=== PATIENT | female | born 1955 | race Caucasian/White ===

== ENCOUNTER 2016-07-22 13:18 | Emergency (ER) | payer MEDICARE, MEDICAID ==
[~2016-07-22] VITALS: Ht 162.6 cm; Wt 68.0 kg
[~2016-07-22 13:18] MED LIST: ACET325T PO; ACTO15TA11 PO; ASPI1TAB69 PO; CALCTAB33 PO; GABA400C5 PO; IMIP75CA PO; LEVO.125 PO; LISI-519 PO; MAGN500T4 PO; OCUVTAB PO; OMEG100010; OMEP20TA PO; TRAM50TA PO
[2016-07-22 13:20] VITALS: BP 114/72; PULSE 80; RESP 20; TEMP 97.7; O2SAT 97
--- NOTE | 2016-07-22 13:40 | PD ---
Physical Exam Date Seen by Provider: Jul 22, 2016 Time Seen by Provider: 13:38 Narrative 61 yo female here for leg edema. Has had this for 2-3 weeks. No injuries. Went to PCP on monday. pain is 10/10 on the legs. No history of CHF. worst on the right than left. Vitals sign stable. Patient awaiting bed placement. Data Data Last Documented VS Vital Signs Date Time Temp Pulse Resp B/P Pulse Ox O2 Delivery O2 Flow Rate FiO2 07/22/16 13:20 97.7 80 20 114/72 97 Room Air [facility] Medical Record Reviewed: Yes Supervised Visit with DAVID: No Jimmie Beatty Jul 22, 2016 13:40
--- NOTE | 2016-07-22 14:40 | PD ---
HPI Chief Complaint: Edema Time Seen by Provider: 14:25 Travel History International Travel<30 days: No Contact w/Intl Traveler<30days: No Traveled to known affect area: No History of Present Illness HPI Patient 61-year-old female with a history of a mild learning disability presents emergency Department with her caregiver for evaluation of leg swelling. Patient states this been going on for 2-3 weeks. She stated that she went to her primary care physician a few days ago who usually checks her feet for history of diabetes but didn't do it that day. When she got home she realized that her doctor was unaware of her edema so decided to come in here to be seen. Days later. Denies any shortness of breath denies any history of heart disease lung disease liver disease or kidney disease. She states that her lower extremities are minimally cramping in nature. She is concerned because she was told to check her feet for any abnormalities with a history of diabetes. Denies any fevers abdominal pain nausea vomiting diarrhea. PFSH Past Medical History Hx Anticoagulant Therapy: Yes (ASA) Anxiety: Yes Depression: Yes Heart Rhythm Problems: No Cancer: No Cardiac Catheterization: No Cardiovascular Problems: Yes (HTN) High Cholesterol: No Chest Pain: Yes Congestive Heart Failure: No Developmental Delay: Yes Diabetes: Yes Diminished Hearing: No GERD: Yes Genitourinary: Yes (BLADDER INCONTINENCE, at times) Headaches: Yes Hypertension: Yes Musculoskeletal: No Neurologic: No Psychiatric: Yes Reproductive: No Respiratory: No Myocardial Infarction: No Renal Failure: Yes (renal insuffiency) Thyroid Disease: Yes Menopausal: Yes : 0 Para: 0 Miscarriage: 0 : 0 Dilation and Curettage (D&C): Yes Past Surgical History Abdominal Surgery: No Cardiac Surgery: No Coronary Artery Bypass Graft: No Ear Surgery: No Endocrine Surgery: No Eye Surgery: No Genitourinary Surgery: No Gynecologic Surgery: Yes (D & C) Hysterectomy: Yes Oral Surgery: No Thoracic Surgery: No Other Surgery: Yes (THYROID SX) Social History Alcohol Use: No Tobacco Use: No Substance Use: No Allergies-Medications (Allergen,Severity, Reaction): Coded Allergies: No Known Allergies (Verified , 07/12/16) Reported Meds & Prescriptions Reported Meds & Active Scripts Active Tramadol (Tramadol HCl) 50 Mg Tab 50 Mg PO Q8H PRN Synthroid (Levothyroxine Sodium) 125 Mcg Tab 125 Mcg PO DAILY Gabapentin 400 Mg Cap 400 Cap PO TID Reported Actos (Pioglitazone HCl) 15 Mg Tab 15 Mg PO DAILY Omeprazole 20 Mg Tab 20 Mg PO DAILY [place] 3 1000 mg ([place]-3 Fatty Acids) 1 Cap Cap Ocuvite (Multiple Vitamins W/ Minerals) 1 Tab 1 Tab PO DAILY Magnesium 500 Mg Tab 500 Mg PO DAILY Lisinopril 5 Mg Tab 5 Mg PO DAILY Imipramine Pamoate 75 Mg Cap 75 Mg PO DAILY Calcium 600+D Plus Minerals (Calcium Carbonate-Vitamin D W/Minerals) 600-400 Mg- Unit Tab 1 Tab PO DAILY Aspirin 81 Mg Tabdr 81 Mg PO DAILY Acetaminophen 325 Mg Tab 650 Mg PO Q6HR PRN Review of Systems Except as stated in HPI: all other systems reviewed are Neg Physical Exam Narrative GENERAL: Well-developed well-nourished no apparent distress. SKIN: Focused skin assessment warm/dry. HEAD: Atraumatic. Normocephalic. EYES: Pupils equal and round. No scleral icterus. No injection or drainage. ENT: No nasal bleeding or discharge. Mucous membranes pink and moist. NECK: Trachea midline. No JVD. CARDIOVASCULAR: Regular rate and rhythm. No murmur appreciated. RESPIRATORY: No accessory muscle use. Clear to auscultation. Breath sounds equal bilaterally. GASTROINTESTINAL: Abdomen soft, non-tender, nondistended. Hepatic and splenic margins not palpable. MUSCULOSKELETAL: No obvious deformities. No clubbing. No cyanosis. 2+ pitting edema to bilateral lower extremity from mid tibia distally. Pulses motor and sensory intact distally in all 4 extremity's. Extremity are atraumatic.. NEUROLOGICAL: Awake and alert. No obvious cranial nerve deficits. Motor grossly within normal limits. Normal speech. PSYCHIATRIC: Appropriate mood and affect; insight and judgment normal. Data Data Last Documented VS Vital Signs Date Time Temp Pulse Resp B/P Pulse Ox O2 Delivery O2 Flow Rate FiO2 07/22/16 17:43 07/22/16 17:27 73 18 100 Room Air 07/22/16 13:20 97.7 Orders Electrocardiogram (07/22/16 14:36) Complete Blood Count With Diff (07/22/16 14:36) Comprehensive Metabolic Panel (07/22/16 14:36) Troponin I (07/22/16 14:36) Ecg Monitoring (07/22/16 14:36) Bilateral Bp Monitoring (07/22/16 14:36) Iv Access Insert/Monitor (07/22/16 14:36) Oximetry (07/22/16 14:36) Oxygen Administration (07/22/16 14:36) Sodium Chloride 0.9% Flush (Ns Flush) (07/22/16 14:45) Chest, Pa & Lat (07/22/16 14:36) Labs Laboratory Tests Test 07/22/16 14:50 White Blood Count 7.2 TH/MM3 Red Blood Count 4.08 MIL/MM3 Hemoglobin 11.7 GM/DL Hematocrit 36.5 % Mean Corpuscular Volume 89.6 FL Mean Corpuscular Hemoglobin 28.6 PG Mean Corpuscular Hemoglobin 31.9 % Concent Red Cell Distribution Width 14.0 % Platelet Count 239 TH/MM3 Mean Platelet Volume 6.5 FL Neutrophils (%) (Auto) 54.1 % Lymphocytes (%) (Auto) 28.9 % Monocytes (%) (Auto) 9.1 % Eosinophils (%) (Auto) 6.8 % Basophils (%) (Auto) 1.1 % Neutrophils # (Auto) 3.9 TH/MM3 Lymphocytes # (Auto) 2.1 TH/MM3 Monocytes # (Auto) 0.7 TH/MM3 Eosinophils # (Auto) 0.5 TH/MM3 Basophils # (Auto) 0.1 TH/MM3 CBC Comment DIFF FINAL Differential Comment Sodium Level 143 MEQ/L Potassium Level 4.7 MEQ/L Chloride Level 109 MEQ/L Carbon Dioxide Level 27.9 MEQ/L Anion Gap 6 MEQ/L Blood Urea Nitrogen 30 MG/DL Creatinine 1.02 MG/DL Estimat Glomerular Filtration 55 ML/MIN Rate Random Glucose 75 MG/DL Calcium Level 9.3 MG/DL Total Bilirubin 0.3 MG/DL Aspartate Amino Transf 21 U/L (AST/SGOT) Alanine Aminotransferase 27 U/L (ALT/SGPT) Alkaline Phosphatase 76 U/L Troponin I LESS THAN 0.02 NG/ML Total Protein 5.9 GM/DL Albumin 3.4 GM/DL [facility] Medical Decision Making Medical Screen Exam Complete: Yes Emergency Medical Condition: Yes Interpretation(s) EKG shows normal sinus rhythm normal axis and normal R-wave progression. No concerning ST-T changes. Intervals within normal limits. This normal EKG. Differential Diagnosis CHF unlikely, liver disease unlikely, kidney disease unlikely, peripheral venous stasis, diabetic foot unlikely Narrative Course Patient was roomed in the emergency department, initial laboratory workup including CBC CMP EKG and chest x-ray all within normal limits. The patient appears well. She is not short of breath. She is stable for discharge at this time. Recommended that she follow up with her primary care physician. Discussed DAYANNA hose as well as elevating her feet at night. Diagnosis Primary Impression: Pedal edema Additional Instructions: Go to [facility] in by yourself DAYANNA hose, keep your feet elevated at night. Follow -up with your primary care physician by phone tomorrow. Med/Other Pt SpecificInfo: Prescription(s) given Disposition: DISCHARGE HOME Condition: Stable Sudhir Buchanan MD Jul 22, 2016 14:39
[2016-07-22] MEDS ORDERED: SODIUM CHLORIDE 0.9% FLUSH 10 ML FLUSH IVF PRN (14:45)
[2016-07-22 14:54] VITALS: BP_SYST 116; BP_DIAS 68; BP_DIAS 69; PULSE 75; RESP 16; O2SAT 100
[2016-07-22 15:10] LABS: AUTOMATED NEUTROPHIL # 3.9 TH/MM3 (1.8-7.7); BASOPHIL # 0.1 TH/MM3 (0-0.2); BASOPHIL % 1.1 % (0.0-2.0); EOSINOPHIL # 0.5 TH/MM3 (0-0.4); EOSINOPHIL % 6.8 % (0.0-4.0); HEMATOCRIT 36.5 % (35.0-46.0); HEMO FLAGS DIFF FINAL; LYMPH % 28.9 % (9.0-44.0); LYMPHOCYTE # 2.1 TH/MM3 (1.0-4.8); MEAN CELL VOLUME 89.6 FL (80.0-100.0); MEAN CORPUSCULAR HEMOGLOBIN 28.6 PG (27.0-34.0); MEAN CORPUSCULAR HGB CONC 31.9 % (32.0-36.0); MONO % 9.1 % (0.0-8.0); NEUT % 54.1 % (16.0-70.0); PLATELET COUNT 239 TH/MM3 (150-450); RED BLOOD COUNT 4.08 MIL/MM3 (4.00-5.30); WHITE BLOOD COUNT 7.2 TH/MM3 (4.0-11.0)
[2016-07-22 15:36] LABS: ALT (GPT) 27 U/L (10-53); ANION GAP 6 MEQ/L (5-15); AST (GOT) 21 U/L (15-37); BICARBONATE 27.9 MEQ/L (21.0-32.0); BLOOD UREA NITROGEN 30 MG/DL (7-18); CHLORIDE 109 MEQ/L (98-107); GLOMERULAR FILTRATION RATE 55 ML/MIN (>89); POTASSIUM 4.7 MEQ/L (3.5-5.1); SODIUM (NA) 143 MEQ/L (136-145)
[2016-07-22 15:40] LABS: ALKALINE PHOSPHATASE 76 U/L (45-117); TOTAL BILIRUBIN ADULT 0.3 MG/DL (0.2-1.0)
--- NOTE | 2016-07-22 17:09 | RADRPT ---
EXAM DATE/TIME: 07/22/2016 17:06 [facility] COMPARISON: No previous studies available for comparison. INDICATIONS : Chest pain and lower extremity swelling. MEDICAL HISTORY : None. SURGICAL HISTORY : None. ENCOUNTER: Initial ACUITY: 1 day PAIN SCORE: 4/10 LOCATION: Bilateral lower chest FINDINGS: The cardiac silhouette is normal in transverse diameter. The lungs are free of acute parenchymal opac ity. No effusions are identified. The aortic knob is prominent with tortuosity of the descending thor acic aorta. There are surgical clips in the right upper quadrant compatible with prior cholecystectom y. CONCLUSION: 1. No acute cardiopulmonary disease. Jose Vaughan MD on July 22, 2016 at 17:07 Board Certified Radiologist. This report was verified electronically.
[2016-07-22 17:27] VITALS: BP 137/79; PULSE 73; RESP 18; O2SAT 100
--- NOTE | 2016-07-23 19:25 | EKG ---
Date Performed: 07/22/2016 Time Performed: 15:06:54 PTAGE: 61 years EKG: Sinus rhythm NORMAL ECG PREVIOUS TRACING : 09/02/2015 19.23 Compared to prior tracing no significant change DOCTOR: Kisha Blackmon Interpretating Date/Time 07/23/2016 19:24:06
[2016-08-02] MEDS ORDERED: AMIT10TA6 PO (15:35)
[2016-09-05] MEDS ORDERED: ACTO15TA11 PO (13:50)
[2016-09-23] MEDS ORDERED: LEVO.125 PO (13:48)
== END 2016-07-22 18:16 | disposition home or self-care (01) ==
LOC: NEPD 13:18
DX: R60.0 Localized edema (principal); R07.9 Chest pain, unspecified; I10 Essential (primary) hypertension; E11.9 Type 2 diabetes mellitus without complications; Z79.84 Long term (current) use of oral hypoglycemic drugs; Z79.899 Other long term (current) drug therapy
CPT/HCPCS: 71020; 80053; 84484; 85025; 93005

== ENCOUNTER 2017-01-03 17:09 | Emergency (ER) | payer MEDICARE, MEDICAID ==
[~2017-01-03] VITALS: Ht 162.6 cm; Wt 70.0 kg
[~2017-01-03 17:09] MED LIST changes: -GABA400C5 PO; -OMEP20TA PO; +ZANT150T2 PO
[2017-01-03 17:47] VITALS: BP 138/80; PULSE 89; RESP 14; TEMP 98.6; O2SAT 100
--- NOTE | 2017-01-03 17:57 | PD ---
Physical Exam Date Seen by Provider: Jan 03, 2017 Time Seen by Provider: 17:55 Narrative 61 yo female here for left middle finger injury. Per patient she "passed out" and fell and injured her finger. Patient fell at the gas station. Occurred less than an hour ago. Possible open fracture of left middle finger per [facility]. Also per [facility] caregiver stated that patient "makes ups stories" and has mental illness. Per report from EVAC and gas station staff patient tripped and fell. Vitals are stable in triage. Awaiting bed placement. Data Data Last Documented VS Vital Signs Date Time Temp Pulse Resp B/P (MAP) Pulse Ox O2 Delivery O2 Flow Rate FiO2 01/03/17 17:47 98.6 89 14 138/80 (99) 100 Room Air Orders Orders Finger ([id number]) (01/03/17 ) [facility] Medical Record Reviewed: Yes Supervised Visit with DAVID: Jimmie Arechiga Jan 03, 2017 17:57
--- NOTE | 2017-01-03 18:42 | RADRPT ---
EXAM DATE/TIME: 01/03/2017 18:33 [facility] COMPARISON: No previous studies available for comparison. INDICATIONS : Left 3rd finger pain due to fall. MEDICAL HISTORY : Hypertension. Diabetes mellitus type 2. Renail failure. SURGICAL HISTORY : Cholecystectomy. ENCOUNTER: Initial ACUITY: 1 day PAIN SCORE: 7/10 LOCATION: Left 3rd finger. FINDINGS: There is a posterior joint dislocation at the PIP joint of the third finger. The bony structures appe ar to be grossly intact. There is soft tissue swelling of the third finger. The rest of bony structur es are grossly intact. CONCLUSION: Posterior joint dislocation at the third PIP joint Julio Zhu MD on January 03, 2017 at 18:40 Board Certified Radiologist. This report was verified electronically.
[2017-01-03] MEDS ORDERED: LIDOCAINE HCL 1% 50 ML VIAL ONE (19:52)
[2017-01-03] MEDS ORDERED: LIDOCAINE HCL 1% 50 ML VIAL INFIL ONE (20:00)
--- NOTE | 2017-01-03 20:26 | RADRPT ---
EXAM DATE/TIME: 01/03/2017 20:03 [facility] COMPARISON: FINGER LEFT 3RD DIGIT ([id number]), January 03, 2017, 18:33. INDICATIONS : Post reduction left hand, third digit. MEDICAL HISTORY : Hypertension. Diabetes mellitus type 2. Renail failure SURGICAL HISTORY : Cholecystectomy. ENCOUNTER: Subsequent ACUITY: 1 day PAIN SCORE: 4/10 LOCATION: Left upper extremity FINDINGS: The previously noted posterior joint dislocation of the third PIP joint has been reduced. No definite bony fracture. There continues to be soft tissue swelling. CONCLUSION: There is good alignment on this post reduction study Julio Zhu MD on January 03, 2017 at 20:24 Board Certified Radiologist. This report was verified electronically.
[2017-01-03 20:48] VITALS: BP 170/75; PULSE 90; RESP 18; O2SAT 98
--- NOTE | 2017-01-03 21:01 | PD ---
HPI Chief Complaint: Syncope/Near-Syncope Time Seen by Provider: 19:43 Travel History International Travel<30 days: No Contact w/Intl Traveler<30days: No History of Present Illness HPI This 61-year-old woman who fell at a gas station. She states that she had syncope and collapse. She states she remembers falling however and was able to brace herself with her hand. Denies hitting her head or face. She complains of some headache and belly pain. States she is very prone to headaches and takes opiates regularly for headaches. She is a little bit difficult to get a complete history from. Nonetheless her only complaint at this time a headaches in her left third finger which is deformed. History Past Medical History Narrative Medical Diabetes diabetes Menopausal: Yes : 0 Para: 0 Dilation and Curettage (D&C): Yes Social History Alcohol Use: No Tobacco Use: No Allergies-Medications (Allergen,Severity, Reaction): Coded Allergies: No Known Allergies (Verified , 01/03/17) Reported Meds & Prescriptions Reported Meds & Active Scripts Active Lisinopril 5 Mg Tab 5 Mg PO DAILY Synthroid (Levothyroxine Sodium) 125 Mcg Tab 125 Mcg PO DAILY Tramadol (Tramadol HCl) 50 Mg Tab 50 Mg PO Q8H PRN Zantac (Ranitidine HCl) 150 Mg Tab 150 Mg PO BID Actos (Pioglitazone HCl) 15 Mg Tab 15 Mg PO DAILY Reported [place] 3 1000 mg ([place]-3 Fatty Acids) 1 Cap Cap Ocuvite (Multiple Vitamins W/ Minerals) 1 Tab 1 Tab PO DAILY Imipramine Pamoate 75 Mg Cap 75 Mg PO DAILY Calcium 600+D Plus Minerals (Calcium Carbonate-Vitamin D W/Minerals) 600-400 Mg- Unit Tab 1 Tab PO DAILY Review of Systems ROS Limitations: Poor Historian Except as stated in HPI: all other systems reviewed are Neg Physical Exam Narrative GENERAL: Well-appearing 61-year-old woman, little bit bizarre, no acute distress. SKIN: Focused skin assessment warm/dry. HEAD: Normocephalic. Is no evidence of trauma. EYES: Pupils equal and round. No scleral icterus. No injection or drainage. ENT: No nasal bleeding or discharge. Mucous membranes pink and moist. NECK: No midline tenderness. No step-offs or deformities. Full painless range of motion. CARDIOVASCULAR: Regular rate and rhythm. No murmur appreciated. RESPIRATORY: No accessory muscle use. Clear to auscultation. Breath sounds equal bilaterally. GASTROINTESTINAL: Abdomen soft, non-tender, nondistended. Hepatic and splenic margins not palpable. MUSCULOSKELETAL: Obvious deformity and swelling of the left third finger about the PIP joint with apparent dorsal dislocation of the PIP. NEUROLOGICAL: Awake and alert. No obvious cranial nerve deficits. Motor grossly within normal limits. Normal speech. PSYCHIATRIC: Appropriate mood and affect; insight and judgment normal. Data Data Last Documented VS Vital Signs Date Time Temp Pulse Resp B/P (MAP) Pulse Ox O2 Delivery O2 Flow Rate FiO2 01/03/17 20:48 90 18 170/75 (106) 98 Room Air 01/03/17 17:47 98.6 Orders Orders Finger ([id number]) (01/03/17 ) Lidocaine 1% Inj (50 Ml) (Xylocaine 1% I (01/03/17 19:52) Electrocardiogram (01/03/17 ) Lidocaine 1% Inj (50 Ml) (Xylocaine 1% I (01/03/17 20:00) Finger ([id number]) (01/03/17 ) MDM Medical Decision Making Medical Screen Exam Complete: Yes Emergency Medical Condition: Yes Interpretation(s) Last 24 hours Impressions Finger X-Ray 01/03/17 0000 Signed Impressions: Service Date/Time: Tuesday, January 03, 2017 18:33 - CONCLUSION: Posterior joint dislocation at the third PIP joint Julio Zhu MD Differential Diagnosis Finger dislocation, fracture, other Narrative Course Medical decision-making Is a somewhat bizarre 61-year-old woman presents to the emergency department complaining of fall/syncope/near-syncope epigastric station. She looks well. Only evidence of trauma sees a finger injury. Don't see any evidence of head neck back injury. She looks well. I did obtain an EKG with which is unremarkable. Finger was reduced following a digital block. It was pointed with 20 of flexion at the PIP joint. We'll recommend follow-up with her primary physician. Procedures Procedure Narrative Digital block: The base of the third finger and left hand was cleansed with chlorhexidine. 1% plain lidocaine was injected at the metacarpal head. Good anesthesia resulted. Patient tolerated well. Reduction: Following digital block, the PIP joint was reduced with axial traction and direct volar pressure on the distal fragment. Patient tolerated well. Repeat film showed several reduction. There still limited range of motion of both the PIP and DIP joint. There is swelling on the proximal phalanx especially on the volar side with some ecchymosis. Splint was placed with the PIP and 20 of flexion and the DIP free. Diagnosis Primary Impression: Dislocation of PIP joint of finger Qualified Codes: S63.289A - Dislocation of proximal interphalangeal joint of unspecified finger, initial encounter Patient Instructions: General Instructions Additional Instructions: Keep finger splinted for 5-7 days. Follow-up with her primary physician for repeat evaluation. Return to the emergency department for any worsening chest pain, trouble breathing, or any other new or worsening symptoms. Med/Other Pt SpecificInfo: No Change to Meds Disposition: 01 DISCHARGE HOME Condition: Stable Darrel Saucedo MD Jan 03, 2017 21:01
--- NOTE | 2017-01-04 23:44 | EKG ---
Date Performed: 01/03/2017 Time Performed: 19:59:19 PTAGE: 61 years EKG: Sinus rhythm NORMAL ECG PREVIOUS TRACING : 07/22/2016 15.06 Compared to prior tracing no significant change DOCTOR: Tom Shaver Interpretating Date/Time 01/04/2017 23:43:09
[2017-01-10] MEDS ORDERED: LEVO150T7 PO (11:47)
[2017-01-13] MEDS ORDERED: TRAM50TA PO (11:23)
== END 2017-01-03 21:20 | disposition home or self-care (01) ==
LOC: NEPD 17:09
DX: S63.283A Dislocation of proximal interphalangeal joint of left middle finger, initial encounter (principal); R51 Headache; R10.9 Unspecified abdominal pain; R55 Syncope and collapse; E11.9 Type 2 diabetes mellitus without complications; W18.39XA Other fall on same level, initial encounter; Y92.524 Gas station as the place of occurrence of the external cause
CPT/HCPCS: 26725; 26770; 73140; 93005

== ENCOUNTER 2017-01-11 01:51 | Observation (INO) | payer MEDICARE, OTHER ==
[2017-01-11] VITALS (7 sets, daily range): BP systolic 118–126; BP diastolic 60–77; PULSE 74–98; RESP 16–24; TEMP 97.6–98.5; O2SAT 96–98
[~2017-01-11] VITALS: Ht 162.6 cm; Wt 60.0 kg
[~2017-01-11 01:51] MED LIST changes: -ACET325T PO; -ACTO15TA11 PO; +ACTO15TA22 PO; -ASPI1TAB69 PO; -LEVO.125 PO; +LEVO150T7 PO; -MAGN500T4 PO
[2017-01-11] MEDS ORDERED: SODIUM CHLORIDE 0.9% FLUSH 10 ML FLUSH IVF PRN (02:15)
[2017-01-11 02:32] LABS: AUTOMATED NEUTROPHIL # 4.4 TH/MM3 (1.8-7.7); BASOPHIL # 0.1 TH/MM3 (0-0.2); BASOPHIL % 0.8 % (0.0-2.0); EOSINOPHIL # 0.3 TH/MM3 (0-0.4); HEMATOCRIT 36.7 % (35.0-46.0); HEMO FLAGS DIFF FINAL; LYMPH % 32.4 % (9.0-44.0); LYMPHOCYTE # 2.6 TH/MM3 (1.0-4.8); MEAN CELL VOLUME 91.3 FL (80.0-100.0); MEAN CORPUSCULAR HEMOGLOBIN 29.4 PG (27.0-34.0); MEAN CORPUSCULAR HGB CONC 32.2 % (32.0-36.0); MONO % 8.5 % (0.0-8.0); NEUT % 54.3 % (16.0-70.0); PLATELET COUNT 220 TH/MM3 (150-450); RED BLOOD COUNT 4.02 MIL/MM3 (4.00-5.30); RED CELL DISTRIBUTION WIDTH 13.4 % (11.6-17.2); WHITE BLOOD COUNT 8.1 TH/MM3 (4.0-11.0)
[2017-01-11 02:46] LABS: APTT (PATIENT) 25.9 SEC (24.3-30.1); INTERNATIONAL NORMALIZED RATIO 0.9 RATIO; PROTHROMBIN TIME - PATIENT 10.3 SEC (9.8-11.6)
[2017-01-11 02:47] LABS: ALT (GPT) 20 U/L (10-53); ANION GAP 4 MEQ/L (5-15); AST (GOT) 13 U/L (15-37); BICARBONATE 27.7 MEQ/L (21.0-32.0); BLOOD UREA NITROGEN 24 MG/DL (7-18); CHLORIDE 109 MEQ/L (98-107); GLOMERULAR FILTRATION RATE 44 ML/MIN (>89); POTASSIUM 4.4 MEQ/L (3.5-5.1); SODIUM (NA) 141 MEQ/L (136-145)
[2017-01-11 02:51] LABS: ALKALINE PHOSPHATASE 69 U/L (45-117); TOTAL BILIRUBIN ADULT 0.3 MG/DL (0.2-1.0)
[2017-01-11] MEDS ORDERED: ACETAMINOPHEN 325 MG TAB PO ONE (03:15)
[2017-01-11 03:21] LABS: CREATINE KINASE 58 U/L (26-192)
--- NOTE | 2017-01-11 03:36 | RADRPT ---
EXAM DATE/TIME: 01/11/2017 02:17 [facility] COMPARISON: CHEST SINGLE AP, June 20, 2014, 10:41. INDICATIONS : Chest pain. MEDICAL HISTORY : Hypertension. Diabetes mellitus type 2. Renail failure SURGICAL HISTORY : Cholecystectomy. ENCOUNTER: Initial ACUITY: 1 week PAIN SCORE: 4/10 LOCATION: Bilateral chest FINDINGS: A single view of the chest demonstrates the lungs to be symmetrically aerated without evidence of mas s, infiltrate or effusion. The cardiomediastinal contours are unremarkable. Osseous structures are intact. CONCLUSION: 1. No acute cardiopulmonary disease. Jose Vuaghan MD on January 11, 2017 at 3:35 Board Certified Radiologist. This report was verified electronically.
--- NOTE | 2017-01-11 03:42 | PD ---
HPI Chief Complaint: Chest Pain Time Seen by Provider: 02:08 Travel History International Travel<30 days: No Contact w/Intl Traveler<30days: No Traveled to known affect area: No History of Present Illness HPI substernal, radiating to shoulder/arms, 10/03, no alleviating, seems to come on worse during stressful times. this time around she was having an argument. onset was about 3-4 hours ago pcp: none pmhx : dm, htn, lipid, hypothyroid PFSH Past Medical History Hx Anticoagulant Therapy: Yes (ASA) Anxiety: Yes Depression: Yes Heart Rhythm Problems: No Cancer: No Cardiac Catheterization: No Cardiovascular Problems: Yes (HTN) High Cholesterol: No Chest Pain: Yes Congestive Heart Failure: No Developmental Delay: Yes Diabetes: Yes Patient Takes Glucophage: No (unsure on medications) Diminished Hearing: No GERD: Yes Genitourinary: Yes (BLADDER INCONTINENCE, at times) Headaches: Yes Hypertension: Yes Musculoskeletal: No Neurologic: No Psychiatric: Yes Reproductive: No Respiratory: No Myocardial Infarction: No Renal Failure: Yes (renal insuffiency) Thyroid Disease: Yes Tetanus Vaccination: Unknown Influenza Vaccination: Yes ?: Not LMP: menapause Menopausal: Yes : 0 Para: 0 Miscarriage: 0 : 0 Dilation and Curettage (D&C): Yes Past Surgical History Abdominal Surgery: No Cardiac Surgery: No Coronary Artery Bypass Graft: No Ear Surgery: No Endocrine Surgery: No Eye Surgery: No Genitourinary Surgery: No Gynecologic Surgery: Yes (D & C) Hysterectomy: Yes Oral Surgery: No Thoracic Surgery: No Other Surgery: Yes (THYROID SX) Social History Alcohol Use: No Tobacco Use: No Substance Use: No Allergies-Medications (Allergen,Severity, Reaction): Coded Allergies: No Known Allergies (Verified , 01/10/17) Reported Meds & Prescriptions Reported Meds & Active Scripts Active Levothyroxine (Levothyroxine Sodium) 150 Mcg Tab 150 Mcg PO DAILY Daily on an empty stomach Lisinopril 5 Mg Tab 5 Mg PO DAILY Zantac (Ranitidine HCl) 150 Mg Tab 150 Mg PO BID Actos (Pioglitazone HCl) 15 Mg Tab 15 Mg PO DAILY Reported [place] 3 1000 mg ([place]-3 Fatty Acids) 1 Cap Cap Ocuvite (Multiple Vitamins W/ Minerals) 1 Tab 1 Tab PO DAILY Imipramine Pamoate 75 Mg Cap 75 Mg PO DAILY Calcium 600+D Plus Minerals (Calcium Carbonate-Vitamin D W/Minerals) 600-400 Mg- Unit Tab 1 Tab PO DAILY Review of Systems Except as stated in HPI: all other systems reviewed are Neg General / Constitutional: No: Fever Eyes: No: Visual changes HENT: No: Headaches Cardiovascular: Positive: Chest Pain or Discomfort Respiratory: No: Shortness of Breath Gastrointestinal: No: Abdominal Pain Genitourinary: No: Dysuria Musculoskeletal: No: Pain Skin: No Rash Neurologic: No: Weakness Psychiatric: No: Depression Endocrine: No: Polydipsia Hematologic/Lymphatic: No: Easy Bruising Physical Exam Narrative GENERAL: SKIN: Warm and dry. HEAD: Atraumatic. Normocephalic. EYES: Pupils equal and round. No scleral icterus. No injection or drainage. ENT: No nasal bleeding or discharge. Mucous membranes pink and moist. NECK: Trachea midline. No JVD. CARDIOVASCULAR: Regular rate and rhythm. RESPIRATORY: No accessory muscle use. Clear to auscultation. Breath sounds equal bilaterally. GASTROINTESTINAL: Abdomen soft, non-tender, nondistended. MUSCULOSKELETAL: Extremities without clubbing, cyanosis, or edema. No obvious deformities. NEUROLOGICAL: Awake and alert. No obvious cranial nerve deficits. Motor grossly within normal limits. Five out of 5 muscle strength in the arms and legs. Normal speech. PSYCHIATRIC: Appropriate mood and affect; insight and judgment normal. Data Data Last Documented VS Orders Orders Electrocardiogram (01/11/17 02:10) B-Type Natriuretic Peptide (01/11/17 02:10) Ckmb (Isoenzyme) Profile (01/11/17 02:10) Complete Blood Count With Diff (01/11/17 02:10) Comprehensive Metabolic Panel (01/11/17 02:10) Prothrombin Time / Inr (Pt) (01/11/17 02:10) Act Partial Throm Time (Ptt) (01/11/17 02:10) Troponin I (01/11/17 02:10) Chest, Single Ap (01/11/17 02:10) Ecg Monitoring (01/11/17 02:10) Bilateral Bp Monitoring (01/11/17 02:10) Iv Access Insert/Monitor (01/11/17 02:10) Oximetry (01/11/17 02:10) Oxygen Administration (01/11/17 02:10) Sodium Chloride 0.9% Flush (Ns Flush) (01/11/17 02:15) Acetaminophen (Tylenol) (01/11/17 03:15) Admit Order (Ed Use Only) (01/11/17 03:44) Activity Bed Rest With Brp (01/11/17 03:45) Vital Signs (Adult) Q4H (01/11/17 03:45) Cardiac Rhythm .As Directed (01/11/17 03:45) Notify Dr: Other .PRN (01/11/17 03:45) Notify Dr. Parameters (01/11/17 03:45) Resp Oxygen Nasal Cannula (01/11/17 ) Diet Heart Healthy (01/11/17 Breakfast) Ckmb (Isoenzyme) Profile (01/11/17 03:45) Ckmb (Isoenzyme) Profile (01/11/17 06:45) Troponin I (01/11/17 03:45) Troponin I (01/11/17 06:45) Electrocardiogram (01/11/17 03:45) Electrocardiogram (01/11/17 06:45) ^ Obtain (01/11/17 03:45) Sodium Chloride 0.9% Flush (Ns Flush) (01/11/17 03:45) Sodium Chloride 0.9% Flush (Ns Flush) (01/11/17 09:00) Aspirin Chew (Aspirin Chew) (01/11/17 03:45) Shopper / Telemetry ROHITH.Q8H (01/11/17 03:45) Labs Laboratory Tests Test 01/11/17 02:20 White Blood Count 8.1 TH/MM3 Red Blood Count 4.02 MIL/MM3 Hemoglobin 11.8 GM/DL Hematocrit 36.7 % Mean Corpuscular Volume 91.3 FL Mean Corpuscular Hemoglobin 29.4 PG Mean Corpuscular Hemoglobin Concent 32.2 % Red Cell Distribution Width 13.4 % Platelet Count 220 TH/MM3 Mean Platelet Volume 5.9 FL Neutrophils (%) (Auto) 54.3 % Lymphocytes (%) (Auto) 32.4 % Monocytes (%) (Auto) 8.5 % Eosinophils (%) (Auto) 4.0 % Basophils (%) (Auto) 0.8 % Neutrophils # (Auto) 4.4 TH/MM3 Lymphocytes # (Auto) 2.6 TH/MM3 Monocytes # (Auto) 0.7 TH/MM3 Eosinophils # (Auto) 0.3 TH/MM3 Basophils # (Auto) 0.1 TH/MM3 CBC Comment DIFF FINAL Differential Comment Prothrombin Time 10.3 SEC Prothromb Time International Ratio 0.9 RATIO Activated Partial Thromboplast Time 25.9 SEC Blood Urea Nitrogen 24 MG/DL Creatinine 1.23 MG/DL Random Glucose 77 MG/DL Total Protein 6.2 GM/DL Albumin 3.6 GM/DL Calcium Level 9.7 MG/DL Alkaline Phosphatase 69 U/L Aspartate Amino Transf (AST/SGOT) 13 U/L Alanine Aminotransferase (ALT/SGPT) 20 U/L Total Bilirubin 0.3 MG/DL Sodium Level 141 MEQ/L Potassium Level 4.4 MEQ/L Chloride Level 109 MEQ/L Carbon Dioxide Level 27.7 MEQ/L Anion Gap 4 MEQ/L Estimat Glomerular Filtration Rate 44 ML/MIN Total Creatine Kinase 58 U/L Troponin I LESS THAN 0.02 NG/ML B-Type Natriuretic Peptide 33 PG/ML MDM Medical Decision Making Medical Screen Exam Complete: Yes Emergency Medical Condition: Yes Medical Record Reviewed: Yes Interpretation(s) nsr 86, nl intervals, no stemi pattern Differential Diagnosis stemi v nonstemi v anemia v dehydration v pancreatitis Narrative Course during evaluation no findings c/w pancreatitis, dehydraiton or anemia. no stemi on ekg, but will admit to r/o nonstemi and have further cardiac risk stratification Diagnosis Primary Impression: cp r/o mi Admitting Information Admitting Physician Requests: Lacho Zamora MD Jan 11, 2017 03:42
[2017-01-11] MEDS ORDERED: ASPIRIN 81 MG CHEW TAB PO ONE (03:45)
[2017-01-11] MEDS ORDERED: SODIUM CHLORIDE 0.9% FLUSH 10 ML FLUSH IV FLUSH PRN (03:45)
[2017-01-11 04:49] LABS: CREATINE KINASE 70 U/L (26-192)
[2017-01-11] MEDS ORDERED: SODIUM CHLORIDE 0.9% FLUSH 10 ML FLUSH IV FLUSH SCH (09:00)
[2017-01-11] MEDS ORDERED: REGADENOSON INJ 0.4 MG/5 ML SYR ONE (09:11)
[2017-01-11 09:13] LABS: CREATINE KINASE 49 U/L (26-192)
--- NOTE | 2017-01-11 10:15 | HHI.HP ---
[facility] Primary Care Physician Lamar Ortiz MD Chief Complaint Chest pain History of Present Illness This is a 61-year-old female that presents to ED with a complaint of chest discomfort that began earlier this morning. She states it woke her up. As a sharp discomfort across her chest lasting 2-3 hours. She states that it was severe. She was nauseous one time. No diaphoresis. States she's never had this before. She wonders if it's related to her stomach. States she had an endoscopy recently. I reviewed records and she had endoscopy 08/30/16 that revealed reflux esophagitis and gastritis recommending continued Protonix. Patient states she takes multiple medications but cannot recall the names. States that her roommate handles her medications. Currently denies chest discomfort and denies abdominal pains. She was in the ED about a week ago for dislocated left middle finger that was reduced. No fracture. Review of Systems General: Patient denies fevers, chills recent, and recent travel HEENT: Patient denies headache, sore throat, difficulty swallowing. Cardiovascular: Has the chest discomfort as mentioned above. Denies sensation of heart beating rapidly or irregularly. No syncope. Denies diaphoresis. Respiratory: Denies shortness of breath or inspirational chest discomfort. Denies coughing wheezing or hemoptysis. GI: She felt nauseous initially. Patient denies vomiting, diarrhea, abdominal pain, bloody stools. Musculoskeletal: Patient denies joint pain or edema. Denies calf pain or edema. Neurovascular: Patient denies numbness, tingling, weakness in extremities. Denies headache. Endocrine: Denies polyuria and polydipsia. Hematologic: Denies easy bruising. Skin: Denies rash or itching. Past Family Social History Allergies: Coded Allergies: No Known Allergies (Verified , 01/10/17) Past Medical History Hypertension, diabetes, hypothyroidism. Denies known CAD. Past Surgical History Endoscopy in August. D&C. Hysterectomy. Reported Medications Reported Meds & Active Scripts Active Levothyroxine (Levothyroxine Sodium) 150 Mcg Tab 150 Mcg PO DAILY Daily on an empty stomach Lisinopril 5 Mg Tab 5 Mg PO DAILY Tramadol (Tramadol HCl) 50 Mg Tab 50 Mg PO Q8H PRN Zantac (Ranitidine HCl) 150 Mg Tab 150 Mg PO BID Actos (Pioglitazone HCl) 15 Mg Tab 15 Mg PO DAILY Reported [place] 3 1000 mg ([place]-3 Fatty Acids) 1 Cap Cap Ocuvite (Multiple Vitamins W/ Minerals) 1 Tab 1 Tab PO DAILY Imipramine Pamoate 75 Mg Cap 75 Mg PO DAILY Calcium 600+D Plus Minerals (Calcium Carbonate-Vitamin D W/Minerals) 600-400 Mg- Unit Tab 1 Tab PO DAILY Active Ordered Medications Current Medications Medications (Trade) Dose Ordered Sig/Beatrice Route Start Time Stop Time Status Last Admin (NS Flush) 2 ml UNSCH PRN IVF 01/11/17 02:15 (NS Flush) 2 ml UNSCH PRN IV FLUSH 01/11/17 03:45 (NS Flush) 2 ml BID IV FLUSH 01/11/17 09:00 Family History States her mother has a pacemaker. Social History Lifetime nonsmoker. Denies alcohol or illicit drugs. She states she is disabled secondary to memory loss. Physical Exam Vital Signs Vital Signs Date Time Temp Pulse Resp B/P (MAP) Pulse Ox O2 Delivery O2 Flow Rate FiO2 01/11/17 09:32 21 01/11/17 07:57 97.6 76 24 122/73 (89) 96 01/11/17 07:10 79 01/11/17 05:59 21 01/11/17 05:04 98.4 80 18 123/77 (92) 98 01/11/17 03:30 74 18 118/60 (79) 97 Room Air 01/11/17 02:30 18 98 Room Air 01/11/17 01:53 98.5 98 16 126/72 (90) 98 Room Air Physical Exam GENERAL: This is a well-nourished, well-developed patient, in no apparent distress. Patient speaks in clear complete sentences. Patient is pleasant. HEENT: Head is atraumatic and normocephalic. Neck is supple without lymphadenopathy and trachea is midline. No JVD or carotid bruits. CARDIOVASCULAR: Regular rate and rhythm without murmurs, gallops, or rubs. RESPIRATORY: Clear to auscultation. Breath sounds equal bilaterally. No wheezes , rales, or rhonchi. Chest wall is tender. No use of accessory muscles. GASTROINTESTINAL: Abdomen is nontender, nondistended. Abdomen soft. No obvious pulsatile mass or bruit. No CVA tenderness. Strong femoral pulses bilaterally. Normal bowel sounds in all quadrants. MUSCULOSKELETAL: Patient is moving upper and lower extremities freely. No calf tenderness or edema, no Homans sign. Strong pulses in upper and lower extremities. NEUROLOGICAL: Patient is alert and oriented. Cranial nerves 2-12 are grossly intact. No focal deficits and speech is clear. SKIN: No rash and turgor is normal. Laboratory Laboratory Tests Test 01/11/17 02:20 01/11/17 04:15 01/11/17 07:30 White Blood Count 8.1 Red Blood Count 4.02 Hemoglobin 11.8 Hematocrit 36.7 Mean Corpuscular Volume 91.3 Mean Corpuscular Hemoglobin 29.4 Mean Corpuscular Hemoglobin Concent 32.2 Red Cell Distribution Width 13.4 Platelet Count 220 Mean Platelet Volume 5.9 Neutrophils (%) (Auto) 54.3 Lymphocytes (%) (Auto) 32.4 Monocytes (%) (Auto) 8.5 Eosinophils (%) (Auto) 4.0 Basophils (%) (Auto) 0.8 Neutrophils # (Auto) 4.4 Lymphocytes # (Auto) 2.6 Monocytes # (Auto) 0.7 Eosinophils # (Auto) 0.3 Basophils # (Auto) 0.1 CBC Comment DIFF FINAL Differential Comment Prothrombin Time 10.3 Prothromb Time International Ratio 0.9 Activated Partial Thromboplast Time 25.9 Blood Urea Nitrogen 24 Creatinine 1.23 Random Glucose 77 Total Protein 6.2 Albumin 3.6 Calcium Level 9.7 Alkaline Phosphatase 69 Aspartate Amino Transf (AST/SGOT) 13 Alanine Aminotransferase (ALT/SGPT) 20 Total Bilirubin 0.3 Sodium Level 141 Potassium Level 4.4 Chloride Level 109 Carbon Dioxide Level 27.7 Anion Gap 4 Estimat Glomerular Filtration Rate 44 Total Creatine Kinase 58 70 49 Troponin I LESS THAN 0.02 LESS THAN 0.02 LESS THAN 0.02 B-Type Natriuretic Peptide 33 Result Diagram: 01/11/1721901/11/17219 Imaging Last 48 hours Impressions Chest X-Ray 01/11/17209 Signed Impressions: Service Date/Time: Wednesday, January 11, 2017 02:17 - CONCLUSION: 1. No acute cardiopulmonary disease. Jose Vaughan MD Course EKG is sinus rhythm without significant ST segment depressions or elevations. Caprini VTE Risk Assessment Caprini VTE Risk Assessment: No/Low Risk (score <= 1) Caprini Risk Assessment Model Point Value = 1 Point Value = 2 Point Value = 3 Point Value = 5 Age 41-60 Minor surgery BMI > 25 kg/m2 Swollen legs Varicose veins or History of unexplained or recurrent spontaneous Oral contraceptives or hormone replacement Sepsis (< 1 month) Serious lung disease, including pneumonia (< 1 month) Abnormal pulmonary function Acute myocardial infarction Congestive heart failure (< 1 month) History of inflammatory bowel disease Medical patient at bed rest Age 61-74 Arthroscopic surgery Major open surgery (> 45 min) Laparoscopic surgery (> 45 min) Malignancy Confined to bed (> 72 hours) Immobilizing plaster cast Central venous access Age >= 75 History of VTE Family history of VTE Factor V Leiden Prothrombin [id number] Lupus anticoagulant Anticardiolipin antibodies Elevated serum homocysteine Heparin-induced thrombocytopenia Other congenital or acquired thrombophilia Stroke (< 1 month) Elective arthroplasty Hip, pelvis, or leg fracture Acute spinal cord injury (< 1 month) Prophylaxis Regimen Total Risk Factor Score Risk Level Prophylaxis Regimen 0-1 Low Early ambulation 2 Moderate Order ONE of the following: *Sequential Compression Device (SCD) *Heparin 5000 units SQ BID 3-4 Higher Order ONE of the following medications: *Heparin 5000 units SQ TID *Enoxaparin/Lovenox 40 mg SQ daily (WT < 150 kg, CrCl > 30 mL/min) *Enoxaparin/Lovenox 30 mg SQ daily (WT < 150 kg, CrCl > 10-29 mL/min) *Enoxaparin/Lovenox 30 mg SQ BID (WT < 150 kg, CrCl > 30 mL/min) AND/OR *Sequential Compression Device (SCD) 5 or more Highest Order ONE of the following medications: *Heparin 5000 units SQ TID (Preferred with Epidurals) *Enoxaparin/Lovenox 40 mg SQ daily (WT < 150 kg, CrCl > 30 mL/min) *Enoxaparin/Lovenox 30 mg SQ daily (WT < 150 kg, CrCl > 10-29 mL/min) *Enoxaparin/Lovenox 30 mg SQ BID (WT < 150 kg, CrCl > 30 mL/min) AND *Sequential Compression Device (SCD) Assessment and Plan Assessment and Plan * Chest pain: Patient has had serial cardiac enzymes and EKGs for ruling out purposes. She will be seen by Dr. Murphy of cardiology and the chest pain center and will undergo a Lexiscan. She'll be discharged home if her stress test is nonischemic with instructions to follow-up with her PCP. * Diabetes: Continue current medication. Have sliding scale insulin coverage. Follow diabetic diet at discharge. She is not on statin therapy. She should discuss this with her physician. * Hypertension: Continue current medication. * Hypothyroidism: Continue current medication. Patient is stable at this time. She is agreeable to this plan. Julius Singh Jan 11, 2017 10:15
--- NOTE | 2017-01-11 11:09 | TR ---
Date Performed: 01/11/2017 Time Performed: 10:09:00 DOCTOR: Campbell Murphy DRUG LIST: CLINICAL HISTORY: ANGINA REASON FOR TEST: REASON FOR ENDING: OBSERVATION: CONCLUSION: Lexiscan stress test was performed under standard four minute protocol. Radionuclid e was injected one minute prior to ending the test. No electrocardiographic abormalities were present to suggest ischemia. Nuclear imaging and interpretation are pending. COMMENTS:
--- NOTE | 2017-01-11 11:12 | EKG ---
Date Performed: 01/11/2017 Time Performed: 04:10:31 PTAGE: 61 years EKG: Sinus rhythm NORMAL ECG PREVIOUS TRACING : 01/03/2017 19.59 Since previous tracing, no significant change noted DOCTOR: Campbell Murphy Interpretating Date/Time 01/11/2017 11:12:21
--- NOTE | 2017-01-11 11:12 | EKG ---
Date Performed: 01/11/2017 Time Performed: 05:29:57 PTAGE: 61 years EKG: Sinus rhythm NORMAL ECG PREVIOUS TRACING : 01/11/2017 04.10 Since previous tracing, no significant change noted DOCTOR: Campbell Murphy Interpretating Date/Time 01/11/2017 11:11:37
--- NOTE | 2017-01-11 11:15 | EKG ---
Date Performed: 01/11/2017 Time Performed: 02:27:44 PTAGE: 61 years EKG: Sinus rhythm NORMAL ECG Since PREVIOUS TRACING , no significant change noted DOCTOR: Campbell Murphy Interpretating Date/Time 01/11/2017 11:14:03
--- NOTE | 2017-01-11 11:20 | EKG ---
Date Performed: 01/11/2017 Time Performed: 07:53:02 PTAGE: 61 years EKG: Sinus rhythm NORMAL ECG Since PREVIOUS TRACING , no significant change noted DOCTOR: Campbell Murphy Interpretating Date/Time 01/11/2017 11:19:35
--- NOTE | 2017-01-11 11:31 | RADRPT ---
EXAM DATE/TIME: 01/11/2017 09:37 [facility] COMPARISON: No previous studies available for comparison. INDICATIONS : Substernal chest pain. Angina. DOSE: 25.6 mCi Tc99m Myoview at stress. 8.6 mCi Tc99m Myoview at rest. 0.4 mg Lexiscan STRESS SYMPTOMS: Chest pressure, shortness of breath, back pain. EJECTION FRACTION: > 70% MEDICAL HISTORY : Hypertension. SURGICAL HISTORY : Hysterectomy. ENCOUNTER: Initial ACUITY: 1 day PAIN SCALE: 7/10 LOCATION: Substernal chest TECHNIQUE: The patient underwent pharmacologic stress with infusion of prescribed dose. Continuous ECG tracing was monitored during stress. Gated SPECT imaging was performed after stress and conventional SPECT i maging was performed at rest. The examination was performed on a SPECT/CT scanner, both attenuation and non-corrected datasets were reviewed. FINDINGS: DISTRIBUTION: The maximum perfused segment at stress is in the anterolateral wall. PERFUSION STUDY: The pattern of perfusion at stress shows fixed diminished perfusion to the mid and lower anteroseptal wall and low inferolateral wall. No reversibility to suggest ischemia. GATED STUDY: There is intact wall motion and thickening without hypokinetic or dyskinetic segments. CONCLUSION: 1. Fixed areas of diminished perfusion to the mid and lower anteroseptal and lower infero-lateral wal ls. 2. No scintigraphic findings of ischemia. 3. Excellent wall motion throughout with ejection fraction of 70% RISK CATEGORY: Low (<1% Annual Mortality Rate) Jerome Brady MD on January 11, 2017 at 11:26 Board Certified Radiologist. This report was verified electronically.
--- NOTE | 2017-01-11 12:05 | HHI.DCPOC ---
Discharge Care Plan Diagnosis: (1) Chest pain (2) DM (diabetes mellitus) (3) Hypertension (4) Hypothyroidism Goals to Promote Your Health * To prevent worsening of your condition and complications * To maintain your health at the optimal level Directions to Meet Your Goals Take your medications as prescribed Follow your dietary instruction Follow activity as directed Keep your appointments as scheduled Take your immunizations and boosters as scheduled If your symptoms worsen call your PCP, if no PCP go to Urgent Care Center or Emergency Room Smoking is Dangerous to Your Health. Avoid second hand smoke Call the 24-hour hour crisis hotline for domestic abuse at Julius Singh Jan 11, 2017 12:05
[2017-01-13] MEDS ORDERED: TRAM50TA PO (11:23)
[2017-01-17] MEDS ORDERED: META800 PO (21:01)
== END 2017-01-11 14:34 | disposition home or self-care (01) ==
LOC: NEPC 01:51 → NEDA 03:45 → NEPFCDU 04:39
DX: R07.9 Chest pain, unspecified (principal); E11.9 Type 2 diabetes mellitus without complications; E03.9 Hypothyroidism, unspecified; I10 Essential (primary) hypertension; K21.9 Gastro-esophageal reflux disease without esophagitis; F41.9 Anxiety disorder, unspecified; F32.9 Major depressive disorder, single episode, unspecified; Z79.899 Other long term (current) drug therapy; Z79.82 Long term (current) use of aspirin; Z79.84 Long term (current) use of oral hypoglycemic drugs
CPT/HCPCS: 71010; 78452; 80053; 82550; 83880; 84484; 85025; 85610; 85730; 93005; 93017; 99285; A9502; G0378; J2785

== ENCOUNTER 2017-01-17 18:36 | Emergency (ER) | payer OTHER, MEDICARE, MEDICAID ==
[~2017-01-17] VITALS: Ht 162.6 cm; Wt 62.0 kg
[~2017-01-17 18:36] MED LIST changes: +ACTO15TA11 PO; -ACTO15TA22 PO
[2017-01-17 18:38] VITALS: BP 205/89; PULSE 118; RESP 20; TEMP 98.4; O2SAT 98
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
[2017-01-17] MEDS ORDERED: ACETAMINOPHEN/HYDROcodone 325 MG/5 MG TAB PO ONE (20:00)
[2017-01-17 20:35] VITALS: BP 174/80; PULSE 88; RESP 16; O2SAT 99
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
[2017-01-17] MEDS ORDERED: SKEL800T21 PO (21:01)
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
[2017-01-23] MEDS ORDERED: ASPI325T PO (13:55)
== END 2017-01-17 22:18 | disposition home or self-care (01) ==
LOC: NEPK 18:36
DX: S16.1XXA Strain of muscle, fascia and tendon at neck level, initial encounter (principal); S39.012A Strain of muscle, fascia and tendon of lower back, initial encounter; F41.9 Anxiety disorder, unspecified; E11.9 Type 2 diabetes mellitus without complications; K21.9 Gastro-esophageal reflux disease without esophagitis; I10 Essential (primary) hypertension; N28.9 Disorder of kidney and ureter, unspecified; E07.9 Disorder of thyroid, unspecified; V43.52XA Car driver injured in collision with other type car in traffic accident, initial encounter
CPT/HCPCS: 72040; 72100; 99283

== ENCOUNTER 2017-01-22 01:09 | Observation (INO) | payer MEDICARE, MEDICAID ==
[~2017-01-22] VITALS: Ht 162.6 cm; Wt 67.0 kg
[2017-01-22] VITALS (10 sets, daily range): BP systolic 131–174; BP diastolic 70–86; PULSE 78–100; RESP 16–18; TEMP 97.7–98.9; O2SAT 94–100
[~2017-01-22 01:09] MED LIST changes: -ACTO15TA11 PO; +ACTO15TA22 PO; +META800 PO
[2017-01-22] MEDS ORDERED: SODIUM CHLORIDE 0.9% FLUSH 10 ML FLUSH IVF PRN (01:30)
[2017-01-22 02:04] LABS: AUTOMATED NEUTROPHIL # 4.7 TH/MM3 (1.8-7.7); BASOPHIL # 0.1 TH/MM3 (0-0.2); BASOPHIL % 0.7 % (0.0-2.0); EOSINOPHIL # 0.2 TH/MM3 (0-0.4); EOSINOPHIL % 2.2 % (0.0-4.0); HEMATOCRIT 40.1 % (35.0-46.0); HEMOGLOBIN 13.1 GM/DL (11.6-15.3); LYMPHOCYTE # 2.5 TH/MM3 (1.0-4.8); MEAN CELL VOLUME 92.4 FL (80.0-100.0); MEAN CORPUSCULAR HEMOGLOBIN 30.1 PG (27.0-34.0); MEAN CORPUSCULAR HGB CONC 32.6 % (32.0-36.0); MEAN PLATELET VOLUME 5.8 FL (7.0-11.0); MONOCYTE # 0.9 TH/MM3 (0-0.9); NEUT % 56.1 % (16.0-70.0); PLATELET COUNT 280 TH/MM3 (150-450); RED BLOOD COUNT 4.34 MIL/MM3 (4.00-5.30); RED CELL DISTRIBUTION WIDTH 13.3 % (11.6-17.2); WHITE BLOOD COUNT 8.3 TH/MM3 (4.0-11.0)
--- NOTE | 2017-01-22 02:05 | RADRPT ---
EXAM DATE/TIME: 01/22/2017 01:40 [facility] COMPARISON: CHEST SINGLE AP, January 11, 2017, 2:17. INDICATIONS : Blurry vision and slurred speech MEDICAL HISTORY : Diabetes mellitus type II. Hypertension Renal failure, chronic. GERD SURGICAL HISTORY : None. ENCOUNTER: Initial ACUITY: 1 day PAIN SCORE: 7/10 LOCATION: Bilateral chest FINDINGS: A single view of the chest demonstrates the lungs to be symmetrically aerated without evidence of mas s, infiltrate or effusion. The cardiomediastinal contours are unremarkable. Osseous structures are intact. CONCLUSION: No evidence of acute cardiopulmonary disease. Derrick Tomlinson MD on January 22, 2017 at 2:04 Board Certified Radiologist. This report was verified electronically.
[2017-01-22 02:14] LABS: PROTHROMBIN TIME - PATIENT 10.6 SEC (9.8-11.6)
[2017-01-22 02:28] LABS: ALBUMIN 4.2 GM/DL (3.4-5.0); ALKALINE PHOSPHATASE 104 U/L (45-117); ALT (GPT) 55 U/L (10-53); AST (GOT) 30 U/L (15-37); BLOOD UREA NITROGEN 20 MG/DL (7-18); CALCIUM 9.9 MG/DL (8.5-10.1); CHLORIDE 108 MEQ/L (98-107); CREATININE 0.99 MG/DL (0.50-1.00); GLOMERULAR FILTRATION RATE 57 ML/MIN (>89); GLUCOSE,RANDOM 92 MG/DL (74-106); SODIUM (NA) 142 MEQ/L (136-145); TOTAL BILIRUBIN ADULT 0.3 MG/DL (0.2-1.0); TOTAL PROTEIN 7.6 GM/DL (6.4-8.2)
--- NOTE | 2017-01-22 02:53 | RADRPT ---
EXAM DATE/TIME: 01/22/2017 02:28 [facility] COMPARISON: No previous studies available for comparison. INDICATIONS : Slurred speech and vision loss in one eye. RADIATION DOSE: 56.35 CTDIvol (mGy) MEDICAL HISTORY : Hypertension. Gastroesophageal reflux disease. Diabetes. SURGICAL HISTORY : Hysterectomy. ENCOUNTER: Initial ACUITY: 1 day PAIN SCALE: 0/10 LOCATION: cranial TECHNIQUE: Multiple contiguous axial images were obtained of the head. Using automated exposure control and adj ustment of the mA and/or kV according to patient size, radiation dose was kept as low as reasonably a chievable to obtain optimal diagnostic quality images. DICOM format image data is available electro nically for review and comparison. FINDINGS: CEREBRUM: The ventricles are normal for age. No evidence of midline shift, mass lesion, hemorrhage or acute in farction. No extra-axial fluid collections are seen. POSTERIOR FOSSA: The cerebellum and brainstem are intact. The 4th ventricle is midline. The cerebellopontine angle i s unremarkable. EXTRACRANIAL: The visualized portion of the orbits is intact. SKULL: The calvaria is intact. No evidence of skull fracture. CONCLUSION: Negative noncontrast head CT. Derrick Tomlinson MD on January 22, 2017 at 2:52 Board Certified Radiologist. This report was verified electronically.
--- NOTE | 2017-01-22 04:03 | PD ---
HPI Chief Complaint: Eye Problems/Injury Time Seen by Provider: 01:12 Travel History International Travel<30 days: No Contact w/Intl Traveler<30days: No Traveled to known affect area: No History of Present Illness HPI 61-year-old woman presents to the emergency department complaining of visual changes, and slurred speech. States symptoms started sometime this evening but she cannot give any timeframe despite multiple avenues to questioning. Sounds like after 5 PM or so when she had dinner. She is really unable to elaborate further on anything. She describes bilateral vision loss transiently with some residual visual changes. She also describes slurred speech. Denies history of previous similar symptoms. No other complaints. History Past Medical History Narrative Medical Diabetes Hypertension on hyperlipidemia Hypothyroidism Influenza Vaccination: Yes Menopausal: Yes : 0 Para: 0 Dilation and Curettage (D&C): Yes Social History Alcohol Use: No Tobacco Use: No Allergies-Medications (Allergen,Severity, Reaction): Coded Allergies: No Known Allergies (Verified , 01/17/17) Reported Meds & Prescriptions Reported Meds & Active Scripts Active Skelaxin (Metaxalone) 800 Mg Tablet 1 Tab PO TID Tramadol (Tramadol HCl) 50 Mg Tab 50 Mg PO Q8H PRN Levothyroxine (Levothyroxine Sodium) 150 Mcg Tab 150 Mcg PO DAILY Daily on an empty stomach Lisinopril 5 Mg Tab 5 Mg PO DAILY Zantac (Ranitidine HCl) 150 Mg Tab 150 Mg PO BID Actos (Pioglitazone HCl) 15 Mg Tab 15 Mg PO DAILY Reported [place] 3 1000 mg ([place]-3 Fatty Acids) 1 Cap Cap Ocuvite (Multiple Vitamins W/ Minerals) 1 Tab 1 Tab PO DAILY Imipramine Pamoate 75 Mg Cap 75 Mg PO DAILY Calcium 600+D Plus Minerals (Calcium Carbonate-Vitamin D W/Minerals) 600-400 Mg- Unit Tab 1 Tab PO DAILY Review of Systems Except as stated in HPI: all other systems reviewed are Neg Physical Exam Narrative GENERAL: Well-appearing 61-year-old woman, confused and difficult to get a history from but nontoxic appearing. SKIN: Focused skin assessment warm/dry. HEAD: Atraumatic. Normocephalic. EYES: Pupils equal and round. No scleral icterus. No injection or drainage. 20/ 50 out of each eye individually. Initially she describes significant really worse visual acuity of the right eye specifically. Funduscopic exam is limited due to patient cooperation but grossly the fundus of redness appear okay. ENT: No nasal bleeding or discharge. Mucous membranes pink and moist. NECK: Trachea midline. No JVD. CARDIOVASCULAR: Regular rate and rhythm. No murmur appreciated. RESPIRATORY: No accessory muscle use. Clear to auscultation. Breath sounds equal bilaterally. GASTROINTESTINAL: Abdomen soft, non-tender, nondistended. Hepatic and splenic margins not palpable. MUSCULOSKELETAL: No obvious deformities. No clubbing. No cyanosis. No edema. NEUROLOGICAL: Awake and alert. No obvious facial asymmetry or cranial nerve deficits. Speech is a little bit abnormal. Strength full and equal upper and lower extremities. Sensations intact to light touch although she describes allodynia and dysesthesias sometimes everywhere but especially in the left upper face. PSYCHIATRIC: Appropriate mood and affect; insight and judgment normal. Data Data Last Documented VS Vital Signs Date Time Temp Pulse Resp B/P (MAP) Pulse Ox O2 Delivery O2 Flow Rate FiO2 01/22/17 01:18 97.9 94 18 149/77 (101) 99 Orders Orders Electrocardiogram (01/22/17 01:23) Prothrombin Time / Inr (Pt) (01/22/17:23) Act Partial Throm Time (Ptt) (01/22/17:23) Complete Blood Count With Diff (01/22/17:23) Comprehensive Metabolic Panel (01/22/17:23) Ct Brain W/O Iv Contrast(Rout) (01/22/17 01:23) Chest, Single Ap (01/22/17:23) Ecg Monitoring (01/22/17:23) Iv Access Insert/Monitor (01/22/17:23) Oximetry (01/22/17:23) Sodium Chloride 0.9% Flush (Ns Flush) (01/22/17 01:30) Labs Laboratory Tests Test 01/22/17 01:44 White Blood Count 8.3 TH/MM3 Red Blood Count 4.34 MIL/MM3 Hemoglobin 13.1 GM/DL Hematocrit 40.1 % Mean Corpuscular Volume 92.4 FL Mean Corpuscular Hemoglobin 30.1 PG Mean Corpuscular Hemoglobin Concent 32.6 % Red Cell Distribution Width 13.3 % Platelet Count 280 TH/MM3 Mean Platelet Volume 5.8 FL Neutrophils (%) (Auto) 56.1 % Lymphocytes (%) (Auto) 30.0 % Monocytes (%) (Auto) 11.0 % Eosinophils (%) (Auto) 2.2 % Basophils (%) (Auto) 0.7 % Neutrophils # (Auto) 4.7 TH/MM3 Lymphocytes # (Auto) 2.5 TH/MM3 Monocytes # (Auto) 0.9 TH/MM3 Eosinophils # (Auto) 0.2 TH/MM3 Basophils # (Auto) 0.1 TH/MM3 CBC Comment DIFF FINAL Differential Comment Prothrombin Time 10.6 SEC Prothromb Time International Ratio 1.0 RATIO Activated Partial Thromboplast Time 25.0 SEC Blood Urea Nitrogen 20 MG/DL Creatinine 0.99 MG/DL Random Glucose 92 MG/DL Total Protein 7.6 GM/DL Albumin 4.2 GM/DL Calcium Level 9.9 MG/DL Alkaline Phosphatase 104 U/L Aspartate Amino Transf (AST/SGOT) 30 U/L Alanine Aminotransferase (ALT/SGPT) 55 U/L Total Bilirubin 0.3 MG/DL Sodium Level 142 MEQ/L Potassium Level 3.9 MEQ/L Chloride Level 108 MEQ/L Carbon Dioxide Level 30.0 MEQ/L Anion Gap 4 MEQ/L Estimat Glomerular Filtration Rate 57 ML/MIN [facility] Medical Decision Making Medical Screen Exam Complete: Yes Emergency Medical Condition: Yes Differential Diagnosis CVA, anxiety, mass, shingles, other Narrative Course Medical decision making Is a 61-year-old woman who presents to the emergency department with a very difficult history. It sounds like she's had some visual changes and slurred speech been ongoing since sometime this evening. Don't see any obvious stroke symptoms. In her left upper face she has a couple speckles and some hypersensitivity that could suggest zoster however I don't see any other changes. She looks well. Initial workups otherwise unremarkable. We'll plan on admission for observation rule out CVA. Diagnosis Primary Impression: Vision changes Additional Impression: Slurred speech Darrel Saucedo MD Jan 22, 2017 04:03
--- NOTE | 2017-01-22 04:59 | HHI.HP ---
[facility] Lamar Ortiz MD Admission Diagnosis visual changes, slurred speech Diagnoses: Chief Complaint: blurry vision Travel History International Travel<30 Days: No Contact w/Intl Traveler <30 Da: No Traveled to Known Affected Are: No History of Present Illness Written by MEIR Ye acting as scribe for Dr. Delacruz] on 01/22/17 at 04:59. 61 y/o female with a history of DM, hypothyroid, HTN, and HLD presented to the ED with burry vision and slurred speech. Patient states tonight she began to have blurry, vision with burning that started tonight with associated slurred speech and tingling in bilateral lower extremities. Upon examination she rambles a lot and jumps from story to story, difficult to follow. She is oriented to name, date and place. She states she also has chills, and constant pain all over her body. Last Monday her Synthroid was increased by PCP. Review of Systems Except as stated in HPI: all other systems reviewed are Neg Past Family Social History Past Medical History Hypothyroidism DM HTN HLD Past Surgical History Endoscopy in August D&C Hysterectomy Reported Medications Reported Meds & Active Scripts Active Skelaxin (Metaxalone) 800 Mg Tablet 1 Tab PO TID Tramadol (Tramadol HCl) 50 Mg Tab 50 Mg PO Q8H PRN Levothyroxine (Levothyroxine Sodium) 150 Mcg Tab 150 Mcg PO DAILY Daily on an empty stomach Lisinopril 5 Mg Tab 5 Mg PO DAILY Zantac (Ranitidine HCl) 150 Mg Tab 150 Mg PO BID Actos (Pioglitazone HCl) 15 Mg Tab 15 Mg PO DAILY Reported [place] 3 1000 mg ([place]-3 Fatty Acids) 1 Cap Cap Ocuvite (Multiple Vitamins W/ Minerals) 1 Tab 1 Tab PO DAILY Imipramine Pamoate 75 Mg Cap 75 Mg PO DAILY Calcium 600+D Plus Minerals (Calcium Carbonate-Vitamin D W/Minerals) 600-400 Mg- Unit Tab 1 Tab PO DAILY Allergies: Coded Allergies: No Known Allergies (Verified , 01/17/17) Active Ordered Medications Current Medications Medications (Trade) Dose Ordered Sig/Beatrice Route Start Time Stop Time Status Last Admin (NS Flush) 2 ml BID IV FLUSH 01/22/17 09:00 (NS Flush) 2 ml UNSCH PRN IV FLUSH 01/22/17 05:00 (Aspirin Chew) 81 mg DAILY PO 01/22/17 09:00 (NovoLOG SUPPLEMENTAL SCALE) 1 ACHS SQ 01/22/17 08:00 (D50w (Vial) Inj) 50 ml UNSCH PRN IV PUSH 01/22/17 05:00 (Glucagon Inj) 1 mg UNSCH PRN OTHER 01/22/17 05:00 Family History Mom: pacemaker Social History Denies any tobacco, alcohol or illicit drug use. Physical Exam Vital Signs Vital Signs Date Time Temp Pulse Resp B/P (MAP) Pulse Ox O2 Delivery O2 Flow Rate FiO2 01/22/17 01:18 97.9 94 18 149/77 (101) 99 Physical Exam GENERAL: This is a well-nourished, well-developed patient, in no apparent distress. SKIN: No rashes, ecchymoses or lesions. Cool and dry. HEAD: Atraumatic. Normocephalic. EYES: Pupils equal round and reactive with dilation and light sensitivity ENT: Nose without bleeding, purulent drainage or septal hematoma. Airway patent. NECK: Trachea midline. No JVD or lymphadenopathy. Supple, nontender, no meningeal signs. CARDIOVASCULAR: Regular rate and rhythm without murmurs, gallops, or rubs. RESPIRATORY: Clear to auscultation. Breath sounds equal bilaterally. No wheezes , rales, or rhonchi. GASTROINTESTINAL: Abdomen soft, non-tender, nondistended. No hepato-splenomegaly , or palpable masses. No guarding. MUSCULOSKELETAL: Extremities without clubbing, cyanosis, or edema. No joint tenderness, effusion, or edema noted. No calf tenderness. NEUROLOGICAL: Awake and alert. Motor and sensory grossly within normal limits. Normal speech. Laboratory Laboratory Tests Test 01/22/17 01:44 White Blood Count 8.3 Red Blood Count 4.34 Hemoglobin 13.1 Hematocrit 40.1 Mean Corpuscular Volume 92.4 Mean Corpuscular Hemoglobin 30.1 Mean Corpuscular Hemoglobin Concent 32.6 Red Cell Distribution Width 13.3 Platelet Count 280 Mean Platelet Volume 5.8 Neutrophils (%) (Auto) 56.1 Lymphocytes (%) (Auto) 30.0 Monocytes (%) (Auto) 11.0 Eosinophils (%) (Auto) 2.2 Basophils (%) (Auto) 0.7 Neutrophils # (Auto) 4.7 Lymphocytes # (Auto) 2.5 Monocytes # (Auto) 0.9 Eosinophils # (Auto) 0.2 Basophils # (Auto) 0.1 CBC Comment DIFF FINAL Differential Comment Prothrombin Time 10.6 Prothromb Time International Ratio 1.0 Activated Partial Thromboplast Time 25.0 Blood Urea Nitrogen 20 Creatinine 0.99 Random Glucose 92 Total Protein 7.6 Albumin 4.2 Calcium Level 9.9 Alkaline Phosphatase 104 Aspartate Amino Transf (AST/SGOT) 30 Alanine Aminotransferase (ALT/SGPT) 55 Total Bilirubin 0.3 Sodium Level 142 Potassium Level 3.9 Chloride Level 108 Carbon Dioxide Level 30.0 Anion Gap 4 Estimat Glomerular Filtration Rate 57 Result Diagram: 01/22/1714301/22/17143 Caprini VTE Risk Assessment Caprini VTE Risk Assessment: Mod/High Risk (score >= 2) Caprini Risk Assessment Model Point Value = 1 Point Value = 2 Point Value = 3 Point Value = 5 Age 41-60 Minor surgery BMI > 25 kg/m2 Swollen legs Varicose veins or History of unexplained or recurrent spontaneous Oral contraceptives or hormone replacement Sepsis (< 1 month) Serious lung disease, including pneumonia (< 1 month) Abnormal pulmonary function Acute myocardial infarction Congestive heart failure (< 1 month) History of inflammatory bowel disease Medical patient at bed rest Age 61-74 Arthroscopic surgery Major open surgery (> 45 min) Laparoscopic surgery (> 45 min) Malignancy Confined to bed (> 72 hours) Immobilizing plaster cast Central venous access Age >= 75 History of VTE Family history of VTE Factor V Leiden Prothrombin [id number] Lupus anticoagulant Anticardiolipin antibodies Elevated serum homocysteine Heparin-induced thrombocytopenia Other congenital or acquired thrombophilia Stroke (< 1 month) Elective arthroplasty Hip, pelvis, or leg fracture Acute spinal cord injury (< 1 month) Prophylaxis Regimen Total Risk Factor Score Risk Level Prophylaxis Regimen 0-1 Low Early ambulation 2 Moderate Order ONE of the following: *Sequential Compression Device (SCD) *Heparin 5000 units SQ BID 3-4 Higher Order ONE of the following medications: *Heparin 5000 units SQ TID *Enoxaparin/Lovenox 40 mg SQ daily (WT < 150 kg, CrCl > 30 mL/min) *Enoxaparin/Lovenox 30 mg SQ daily (WT < 150 kg, CrCl > 10-29 mL/min) *Enoxaparin/Lovenox 30 mg SQ BID (WT < 150 kg, CrCl > 30 mL/min) AND/OR *Sequential Compression Device (SCD) 5 or more Highest Order ONE of the following medications: *Heparin 5000 units SQ TID (Preferred with Epidurals) *Enoxaparin/Lovenox 40 mg SQ daily (WT < 150 kg, CrCl > 30 mL/min) *Enoxaparin/Lovenox 30 mg SQ daily (WT < 150 kg, CrCl > 10-29 mL/min) *Enoxaparin/Lovenox 30 mg SQ BID (WT < 150 kg, CrCl > 30 mL/min) AND *Sequential Compression Device (SCD) Assessment and Plan Problem List: (1) TIA (transient ischemic attack) ICD Code: G45.9 - Transient cerebral ischemic attack, unspecified (2) Glaucoma ICD Code: H40.9 - Unspecified glaucoma (3) HTN (hypertension) ICD Code: I10 - Essential (primary) hypertension Assessment and Plan 61 y/o female with a history of DM, hypothyroid, HTN, and HLD presented to the ED with burry vision and slurred speech. Blurry and burning vision with slurred speech, r/o tia and glaucoma Head CT reviewed and shows no acute abnormalities -Consult neurology -MRI brain ordered -Consult ophthalmology -ER physician to check eye pressures Carotid US ordered, 2 D echo ordered -PT/OT/ST -Lipid profile ordered HTN, chronic -Resume home medications once verified -PRNs if needed Hypothyroid, chronic -Resume meds when verified, TSH .38 DVT prophylaxis: SCDs Discussed Condition With Patient and ER physician This note was transcribed by jim Pro. I, Dr. Redd Patel personally performed the history, physical exam, and medical decision making; and confirmed the accuracy of the information in the transcribed note. Authenticated by Dr. Redd Patel on 01/22/17 at 06:03. Ruth Pro Jan 22, 2017 04:59 Redd Patel MD Jan 22, 2017 06:03
[2017-01-22] MEDS ORDERED: DEXTROSE 50% IN WATER 50 ML VIAL(D50) IV PUSH PRN (05:00)
[2017-01-22] MEDS ORDERED: GLUCAGON 1 MG/ML VIAL OTHER PRN (05:00)
[2017-01-22] MEDS ORDERED: SODIUM CHLORIDE 0.9% FLUSH 5 ML FLUSH IV FLUSH PRN (05:00)
[2017-01-22] MEDS ORDERED: PROPARACAINE HCL 0.5% OPHT SOLN 15 ML BTL EACH EYE ONE (05:15)
[2017-01-22] MEDS: INSULIN ASPART SUPPLEMENTAL SCALE SQ SCH ×4 (08:00→21:00)
[2017-01-22] MEDS: SODIUM CHLORIDE 0.9% FLUSH 5 ML FLUSH IV FLUSH SCH ×2 (09:00→21:00)
--- NOTE | 2017-01-22 09:02 | RADRPT ---
EXAM DATE/TIME: 01/22/2017 07:45 [facility] COMPARISON: No previous studies available for comparison. INDICATIONS : Transient ischemic attack. MEDICAL HISTORY : Hypertension. Gastroesophageal reflux disease. Thyroid disease. Glasses. Syncope. Anticoagulant the rapy. Chest pain. Bladder inconctinecne. Diabetes. Renal failure. SURGICAL HISTORY : Hysterectomy. Dilation and curettage. [place]oud surgery. ENCOUNTER: Initial ACUITY: 1 day PAIN SCORE: 0/10 LOCATION: Bilateral neck PEAK SYSTOLIC VELOCITIES (cm/sec): ICA/CCA RATIO: Right: 0.8 Left: 1.3 ICA: Right: 102.8 Left: 120.2 CCA: Right: 127.2 Left: 94.6 ECA: Right: 83.3 Left: 110.8 VERTEBRAL: Right: 61.6 antegrade Left: 56.7 antegrade Elevated flow velocities and ICA/CCA ratios have been found to correlate with increased degrees of vessel stenosis, calculated as percentage of diameter relative to a normal segment of distal ICA/CCA FINDINGS: RIGHT CAROTID: No significant stenosis is visualized. The waveforms are within normal limits. LEFT CAROTID: No significant stenosis is visualized. The waveforms are within normal limits. VERTEBRAL ARTERIES: Antegrade flow is seen in both vertebral arteries. MISCELLANEOUS: None. CONCLUSION: No hemodynamically significant stenosis. Sudhir Mendez MD on January 22, 2017 at 9:00 Board Certified Radiologist. This report was verified electronically.
[2017-01-22] MEDS ORDERED: NALOXONE HCL 0.4 MG/ML AMP IV PUSH PRN (09:15)
[2017-01-22] MEDS ORDERED: SENNOSIDES 8.6 MG TAB PO PRN (09:15)
[2017-01-22] MEDS ORDERED: BISACODYL 10 MG SUPP RECTAL PRN (09:15)
[2017-01-22] MEDS ORDERED: MAGNESIUM HYDROXIDE SUSP 30 ML CUP PO PRN (09:15)
[2017-01-22] MEDS ORDERED: LACTULOSE SYRUP 20 GM/30 ML CUP PO PRN (09:15)
[2017-01-22] MEDS ORDERED: ONDANSETRON HCL 4 MG/2 ML VIAL IVP PRN (09:30)
[2017-01-22] MEDS ORDERED: ACETAMINOPHEN 325 MG TAB PO PRN (09:30)
[2017-01-22] MEDS ORDERED: MORPHINE SULFATE 2 MG/ML INJ IM PRN (09:45)
[2017-01-22] MEDS ORDERED: IMIPRAMINE PAMOATE 75 MG PO SCH (10:00)
[2017-01-22] MEDS ORDERED: SODIUM CHLORID 0.9% 500 ML INJ 500 ML IV SCH (10:00)
[2017-01-22 10:02] LABS: HEMOGLOBIN A1C 5.6 % (4.3-6.0)
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
[2017-01-22] MEDS ORDERED: SODIUM CHLORID 0.9% 500 ML INJ 500 ML IV ONE (10:15)
[2017-01-22] MEDS: FAMOTIDINE 20 MG TAB PO SCH ×2 (10:31→21:05)
[2017-01-22] MEDS: CALCIUM/VITAMIN D 250 MG/125 U TAB PO SCH (10:31)
[2017-01-22] MEDS: traMADol HCL 50 MG TAB PO PRN ×2 (10:31→18:40)
[2017-01-22] MEDS: ASPIRIN 81 MG CHEW TAB PO SCH (10:31)
[2017-01-22] MEDS: LISINOPRIL 5 MG TAB PO SCH (10:32)
[2017-01-22] MEDS: LEVOTHYROXINE SODIUM 150 MCG TAB PO SCH (10:34)
[2017-01-22] MEDS: ENOXAPARIN SODIUM 40 MG/0.4 ML SYRINGE SQ SCH (10:35)
--- NOTE | 2017-01-22 10:37 | RADRPT ---
EXAM DATE/TIME: 01/22/2017 09:43 [facility] COMPARISON: CT BRAIN W/O CONTRAST, January 22, 2017, 2:28. INDICATIONS : Slurred speech. MEDICAL HISTORY : Hypertension. Diabetes mellitus type 2. Hypercholesterolemia. SURGICAL HISTORY : Hysterectomy. Thyroidectomy. ENCOUNTER: Initial ACUITY: 1 day PAIN SCORE: 0/10 LOCATION: cranial TECHNIQUE: Multiplanar, multisequence MRI of the brain was performed without contrast. FINDINGS: CEREBRUM: The ventricles are normal for age. No evidence of midline shift, mass lesion, hemorrhage or acute in farction. No extraaxial fluid collections are seen. The pituitary gland and suprasellar cistern are normal in configuration. WHITE MATTER: No significant signal abnormalities are seen in the white matter. POSTERIOR FOSSA: The cerebellum and brainstem are intact. The 4th ventricle is midline. The cerebellopontine angle is unremarkable. The cerebellar tonsils are normal in position. DIFFUSION IMAGING: No focal areas of restricted diffusion are seen. No evidence of acute infarction. EXTRACRANIAL: The visualized portions of the orbits and paranasal sinuses are unremarkable. CONCLUSION: No acute disease. Sudhir Mendez MD on January 22, 2017 at 10:34 Board Certified Radiologist. This report was verified electronically.
[2017-01-22 12:03] LABS: CHOLESTEROL 161 MG/DL (120-200)
[2017-01-22 12:05] LABS: CHOLESTEROL/ HDL RATIO 2.32 RATIO; HDL CHOLESTEROL 69.2 MG/DL (40.0-60.0); LDL CHOLESTEROL 71 MG/DL (0-99); TRIGLYCERIDES 106 MG/DL (42-150); TROPONIN I LESS THAN 0.02 NG/ML (0.02-0.05)
[2017-01-22] MEDS: SODIUM CHLOR 0.9% 1000 ML INJ 1,000 ML IV SCH ×2 (12:12→21:05)
--- NOTE | 2017-01-22 13:07 | MB ---
cc: DARYL BARKER M.D. DATE OF CONSULTATION: 01/22/2017 REASON FOR CONSULTATION: Possible TIA. DATE OF : [birth year], 61 years old. HISTORY OF PRESENT ILLNESS: This 61-year-old woman who comes in with some speech issues, trouble getting words out, visual changes, very difficult to get a story out of her. She jumps from topic to topic and complains of diffuse myalgia, feeling cold, her eyes burning, having issues with loss of vision, regaining vision, and describes being at a gas station and had a fall, then tells me that was three days earlier, so it is very unclear as to what happened when, however, she is being worked up for a TIA workup. She has a history of hypertension, hyperlipidemia, hypothyroidism and diabetes. SOCIAL HISTORY No tobacco or drugs reported. ALLERGIES None. HOME MEDICATIONS: 1. Skelaxin. 2. Tramadol. 3. Synthroid. 4. Lisinopril. 5. Zantac. 6. Actos. 7. [place] 3. 8. Ocuvite. 9. Imipramine. 10. Calcium. PHYSICAL EXAMINATION: On exam her vitals, temperature is 98. She has been afebrile, pulse 96, respiratory rate 16, blood pressure 152/86. Neck: Supple. No appreciable bruits. Heart: Regular. She is awake and alert. Pupils are reactive. Visual kang are full to confrontation. Face, there is some questionable asymmetry but difficult to tell if it is old or new, when she smiles it is symmetrical. Tongue is midline. Motor-bush she does not exhibit any weakness, complains of pain from her fall on her left middle finger. There is no drift, no leg lag. Cerebellar is intact. Toes, withdraws. DTRs are 1+. Gait is withheld at this time. LABORATORY DATA: CBC is unremarkable. Coag panel is normal. Chemistry: Cholesterol is 161, LDL 71, HDL 69.2, triglycerides 106. TSH 0.387. CK is 89. ALT 55, hemoglobin A1c is pending. No white count elevation. IMAGING STUDIES Brain MRI, no acute pathology. No disease. Carotid ultrasound negative. Chest x-ray: No evidence of any cardiopulmonary findings. IMPRESSION Questionable TIA. I will go ahead and get a 2-D echo, and MRA of the [place] of [place]. Continue her current medications. Will add a baby aspirin in any case. Depending on findings, further recommendations. I believe ophthalmology has been consulted as well, but not sure if there is an cotton picker on duty this weekend. Continue current care as outlined. MD MAICO Connolly/DAY /12:11 PM /12:56 PM
--- NOTE | 2017-01-22 13:07 | MB ---
cc: DARYL BARKER M.D. DATE OF CONSULTATION: 01/22/2017 REASON FOR CONSULTATION: Possible TIA. DATE OF : [birth year], 61 years old. HISTORY OF PRESENT ILLNESS: This 61-year-old woman who comes in with some speech issues, trouble getting words out, visual changes, very difficult to get a story out of her. She jumps from topic to topic and complains of diffuse myalgia, feeling cold, her eyes burning, having issues with loss of vision, regaining vision, and describes being at a gas station and had a fall, then tells me that was three days earlier, so it is very unclear as to what happened when, however, she is being worked up for a TIA workup. She has a history of hypertension, hyperlipidemia, hypothyroidism and diabetes. SOCIAL HISTORY No tobacco or drugs reported. ALLERGIES None. HOME MEDICATIONS: 1. Skelaxin. 2. Tramadol. 3. Synthroid. 4. Lisinopril. 5. Zantac. 6. Actos. 7. [place] 3. 8. Ocuvite. 9. Imipramine. 10. Calcium. PHYSICAL EXAMINATION: On exam her vitals, temperature is 98. She has been afebrile, pulse 96, respiratory rate 16, blood pressure 152/86. Neck: Supple. No appreciable bruits. Heart: Regular. She is awake and alert. Pupils are reactive. Visual kang are full to confrontation. Face, there is some questionable asymmetry but difficult to tell if it is old or new, when she smiles it is symmetrical. Tongue is midline. Motor-bush she does not exhibit any weakness, complains of pain from her fall on her left middle finger. There is no drift, no leg lag. Cerebellar is intact. Toes, withdraws. DTRs are 1+. Gait is withheld at this time. LABORATORY DATA: CBC is unremarkable. Coag panel is normal. Chemistry: Cholesterol is 161, LDL 71, HDL 69.2, triglycerides 106. TSH 0.387. CK is 89. ALT 55, hemoglobin A1c is pending. No white count elevation. IMAGING STUDIES Brain MRI, no acute pathology. No disease. Carotid ultrasound negative. Chest x-ray: No evidence of any cardiopulmonary findings. IMPRESSION Questionable TIA. I will go ahead and get a 2-D echo, and MRA of the [place] of [place]. Continue her current medications. Will add a baby aspirin in any case. Depending on findings, further recommendations. I believe ophthalmology has been consulted as well, but not sure if there is an electronic maintenance supervisor on duty this weekend. Continue current care as outlined. MD MAICO Connolly/DAY /12:11 PM /12:56 PM
--- NOTE | 2017-01-22 13:07 | MB ---
cc: DARYL BARKER M.D. DATE OF CONSULTATION: 01/22/2017 REASON FOR CONSULTATION: Possible TIA. DATE OF : 55, 61 years old. HISTORY OF PRESENT ILLNESS: This 61-year-old woman who comes in with some speech issues, trouble getting words out, visual changes, very difficult to get a story out of her. She jumps from topic to topic and complains of diffuse myalgia, feeling cold, her eyes burning, having issues with loss of vision, regaining vision, and describes being at a gas station and had a fall, then tells me that was three days earlier, so it is very unclear as to what happened when, however, she is being worked up for a TIA workup. She has a history of hypertension, hyperlipidemia, hypothyroidism and diabetes. SOCIAL HISTORY No tobacco or drugs reported. ALLERGIES None. HOME MEDICATIONS: 1. Skelaxin. 2. Tramadol. 3. Synthroid. 4. Lisinopril. 5. Zantac. 6. Actos. 7. [place] 3. 8. Ocuvite. 9. Imipramine. 10. Calcium. PHYSICAL EXAMINATION: On exam her vitals, temperature is 98. She has been afebrile, pulse 96, respiratory rate 16, blood pressure 152/86. Neck: Supple. No appreciable bruits. Heart: Regular. She is awake and alert. Pupils are reactive. Visual knag are full to confrontation. Face, there is some questionable asymmetry but difficult to tell if it is old or new, when she smiles it is symmetrical. Tongue is midline. Motor-bush she does not exhibit any weakness, complains of pain from her fall on her left middle finger. There is no drift, no leg lag. Cerebellar is intact. Toes, withdraws. DTRs are 1+. Gait is withheld at this time. LABORATORY DATA: CBC is unremarkable. Coag panel is normal. Chemistry: Cholesterol is 161, LDL 71, HDL 69.2, triglycerides 106. TSH 0.387. CK is 89. ALT 55, hemoglobin A1c is pending. No white count elevation. IMAGING STUDIES Brain MRI, no acute pathology. No disease. Carotid ultrasound negative. Chest x-ray: No evidence of any cardiopulmonary findings. IMPRESSION Questionable TIA. I will go ahead and get a 2-D echo, and MRA of the [place] of [place]. Continue her current medications. Will add a baby aspirin in any case. Depending on findings, further recommendations. I believe ophthalmology has been consulted as well, but not sure if there is an rim roller operator on duty this weekend. Continue current care as outlined. MD MAICO Connolly/DAY /12:11 PM /12:56 PM
[2017-01-22 13:10] LABS: AMORPHOUS SEDIMENT, URINE OCC; BACTERIA, URINE FEW /hpf; BILIRUBIN, URINE NEG (NEG); BLOOD, URINE NEG (NEG); GLUCOSE,URINE NEG (NEG); KETONE, URINE NEG (NEG); NITRITE,URINE NEG (NEG); PH, URINE 7.5 (5.0-8.5); URINE COLOR LIGHT-YELLOW (YELLW/STRAW); URINE LEUKOCYTE ESTERASE NEG (NEG)
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
[2017-01-22 16:21] LABS: TROPONIN I LESS THAN 0.02 NG/ML (0.02-0.05)
[2017-01-22] MEDS: ARTIFICIAL TEARS OPTH SOLN 15 ML BTL EACH EYE SCH ×3 (18:32→23:57)
--- NOTE | 2017-01-22 20:42 | EKG ---
Date Performed: 01/22/2017 Time Performed: 02:01:03 PTAGE: 61 years EKG: Sinus rhythm NORMAL ECG PREVIOUS TRACING : 01/11/2017 07.53 DOCTOR: Tommy Lee Interpretating Date/Time 01/22/2017 20:39:08
--- NOTE | 2017-01-22 20:42 | EKG ---
Date Performed: 01/22/2017 Time Performed: 02:01:03 PTAGE: 61 years EKG: Sinus rhythm NORMAL ECG PREVIOUS TRACING : 01/11/2017 07.53 DOCTOR: Tommy Lee Interpretating Date/Time 01/22/2017 20:39:08
--- NOTE | 2017-01-22 20:42 | EKG ---
Date Performed: 01/22/2017 Time Performed: 02:01:03 PTAGE: 61 years EKG: Sinus rhythm NORMAL ECG PREVIOUS TRACING : 01/11/2017 07.53 DOCTOR: Tommy Lee Interpretating Date/Time 01/22/2017 20:39:08
[2017-01-22] MEDS: DOCUSATE SODIUM 50 MG/SENNA 8.6 MG TAB PO SCH (21:05)
[2017-01-23 01:11] VITALS: PULSE 96
[2017-01-23] MEDS: ARTIFICIAL TEARS OPTH SOLN 15 ML BTL EACH EYE SCH ×3 (03:48→12:17)
[2017-01-23] MEDS: traMADol HCL 50 MG TAB PO PRN (03:48)
[2017-01-23 05:14] LABS: AUTOMATED NEUTROPHIL # 3.1 TH/MM3 (1.8-7.7); BASOPHIL # 0.1 TH/MM3 (0-0.2); BASOPHIL % 1.3 % (0.0-2.0); EOSINOPHIL # 0.2 TH/MM3 (0-0.4); EOSINOPHIL % 3.5 % (0.0-4.0); HEMATOCRIT 35.4 % (35.0-46.0); HEMOGLOBIN 11.7 GM/DL (11.6-15.3); LYMPH % 35.8 % (9.0-44.0); LYMPHOCYTE # 2.3 TH/MM3 (1.0-4.8); MEAN CELL VOLUME 91.7 FL (80.0-100.0); MEAN CORPUSCULAR HEMOGLOBIN 30.3 PG (27.0-34.0); MEAN PLATELET VOLUME 5.9 FL (7.0-11.0); MONO % 10.8 % (0.0-8.0); MONOCYTE # 0.7 TH/MM3 (0-0.9); NEUT % 48.6 % (16.0-70.0); PLATELET COUNT 238 TH/MM3 (150-450); RED BLOOD COUNT 3.86 MIL/MM3 (4.00-5.30); RED CELL DISTRIBUTION WIDTH 13.2 % (11.6-17.2); WHITE BLOOD COUNT 6.4 TH/MM3 (4.0-11.0)
[2017-01-23 05:37] LABS: ALBUMIN 3.1 GM/DL (3.4-5.0); CHOLESTEROL/ HDL RATIO 2.18 RATIO; DIRECT BILIRUBIN ADULT 0.1 MG/DL (0.0-0.2); INDIRECT BILIRUBIN 0.2 MG/DL (0.0-0.8); TOTAL BILIRUBIN ADULT 0.3 MG/DL (0.2-1.0); TOTAL PROTEIN 5.7 GM/DL (6.4-8.2)
[2017-01-23] MEDS: LEVOTHYROXINE SODIUM 150 MCG TAB PO SCH (05:56)
[2017-01-23 07:27] VITALS: BP 132/74; PULSE 90; RESP 20; TEMP 97.9; O2SAT 96
[2017-01-23 07:29] VITALS: PULSE 93
[2017-01-23] MEDS: SODIUM CHLOR 0.9% 1000 ML INJ 1,000 ML IV SCH ×2 (07:55→13:18)
[2017-01-23] MEDS: CALCIUM/VITAMIN D 250 MG/125 U TAB PO SCH (08:03)
[2017-01-23] MEDS: ASPIRIN 81 MG CHEW TAB PO SCH (08:03)
[2017-01-23] MEDS: LISINOPRIL 5 MG TAB PO SCH (08:03)
[2017-01-23] MEDS: SODIUM CHLORIDE 0.9% FLUSH 5 ML FLUSH IV FLUSH SCH (08:04)
[2017-01-23] MEDS: FAMOTIDINE 20 MG TAB PO SCH (08:05)
[2017-01-23] MEDS: DOCUSATE SODIUM 50 MG/SENNA 8.6 MG TAB PO SCH (08:05)
[2017-01-23] MEDS: INSULIN ASPART SUPPLEMENTAL SCALE SQ SCH (08:05)
--- NOTE | 2017-01-23 10:34 | HHI.DCPOC ---
Discharge Care Plan Diagnosis: (1) DM (diabetes mellitus) (2) Slurred speech (3) TIA (transient ischemic attack) Goals to Promote Your Health * To prevent worsening of your condition and complications * To maintain your health at the optimal level Directions to Meet Your Goals Take your medications as prescribed Follow your dietary instruction Follow activity as directed Keep your appointments as scheduled Take your immunizations and boosters as scheduled If your symptoms worsen call your PCP, if no PCP go to Urgent Care Center or Emergency Room Smoking is Dangerous to Your Health. Avoid second hand smoke Call the 24-hour hour crisis hotline for domestic abuse at Tarik Morrow MD, R3 Jan 23, 2017 10:34
--- NOTE | 2017-01-23 10:34 | HHI.DCPOC ---
Discharge Care Plan Diagnosis: (1) DM (diabetes mellitus) (2) Slurred speech (3) TIA (transient ischemic attack) Goals to Promote Your Health * To prevent worsening of your condition and complications * To maintain your health at the optimal level Directions to Meet Your Goals Take your medications as prescribed Follow your dietary instruction Follow activity as directed Keep your appointments as scheduled Take your immunizations and boosters as scheduled If your symptoms worsen call your PCP, if no PCP go to Urgent Care Center or Emergency Room Smoking is Dangerous to Your Health. Avoid second hand smoke Call the 24-hour hour crisis hotline for domestic abuse at Tarik Morrow MD, R3 Jan 23, 2017 10:34
--- NOTE | 2017-01-23 10:34 | HHI.DCPOC ---
Discharge Care Plan Diagnosis: (1) DM (diabetes mellitus) (2) Slurred speech (3) TIA (transient ischemic attack) Goals to Promote Your Health * To prevent worsening of your condition and complications * To maintain your health at the optimal level Directions to Meet Your Goals Take your medications as prescribed Follow your dietary instruction Follow activity as directed Keep your appointments as scheduled Take your immunizations and boosters as scheduled If your symptoms worsen call your PCP, if no PCP go to Urgent Care Center or Emergency Room Smoking is Dangerous to Your Health. Avoid second hand smoke Call the 24-hour hour crisis hotline for domestic abuse at Tarik Morrow MD, R3 Jan 23, 2017 10:34
--- NOTE | 2017-01-23 10:34 | HHI.FPPN ---
Subjective Remarks She was doing well this morning. However, she just had a headache and non- specific pain in her body. Eating whole meals. Not confused. No longer having speech difficulties. No focal neurologic symptoms. (Tarik Morrow MD, R3) Objective Vitals Vital Signs Date Time Temp Pulse Resp B/P (MAP) Pulse Ox O2 Delivery O2 Flow Rate FiO2 01/23/17 07:29 93 01/23/17 07:27 97.9 90 20 132/74 (93) 96 01/23/17 01:11 96 01/22/17 23:51 98.8 84 18 174/81 (112) 97 01/22/17 20:53 98.9 100 18 137/70 (92) 94 01/22/17 16:38 98.2 78 18 131/74 (93) 94 01/22/17 15:29 90 01/22/17 11:11 98.0 96 16 152/86 (108) 97 I/O 01/22/17 01/22/17 01/22/17 01/23/17 01/23/17 01/23/17 07:00 15:00 23:00 07:00 15:00 23:00 Intake Total 500 ml 500 ml Output Total 600 ml Balance 500 ml -100 ml Intake Oral 500 ml IV Total 500 ml Output Urine Total 600 ml # Bowel Movements 1 (Tarik Morrow MD, R3) Result Diagram: 01/23/17 0423 01/22/17 0144 Imaging Last [address] 01/22/17122 Signed Impressions: Service Date/Time: Sunday, January 22, 2017 02:28 - CONCLUSION: Negative noncontrast head CT. Derrick Tomlinson MD Chest X-Ray 01/22/17122 Signed Impressions: Service Date/Time: Sunday, January 22, 2017 01:40 - CONCLUSION: No evidence of acute cardiopulmonary disease. Derrick Tomlinson MD Carotid Artery Ultrasound 01/22/17 0000 Signed Impressions: Service Date/Time: Sunday, January 22, 2017 07:45 - CONCLUSION: No hemodynamically significant stenosis. Sudhir Mendez MD Brain MRI 01/22/17 0000 Signed Impressions: Service Date/Time: Sunday, January 22, 2017 09:43 - CONCLUSION: No acute disease. Sudhir Mendez MD Objective Remarks O. CONSTITUTIONAL/GEN: normally nourished, in NAD. Speech at baseline. EYES: conjunctiva slightly injected, PERRLA, EOMI. ENT: Mouth and pharynx normal. NECK: thyroid midline, carotids symmetrical. LUNGS: clear A-P, respiratory effort is normal. CARDIOVASCULAR: RR without murmur or gallop. No significant edema. GI/ABD: soft without masses, without organomegaly. NEURO: No focal deficits. SKIN: color normal, no rashes noted. HEME/LYMPH: no bruising, petechia or significant adenopathy MUSC: back is normal in appearance. Extremities are normal in appearance. PSYCH/MENTAL STATUS: Alert and oriented x 3. (Tarik Morrow MD, R3) A/P Assessment and Plan Ms. Eldridge is a 61yoWF with a PMH of DM and hypothyroidism who presented with blurry vision and slurred speech. She is being admitted for observation to rule any neurological origin. Discharge Planning Pt. should be stable for discharge home today. F/U with Dr. Ortiz in 2 weeks. (Tarik Morrow MD, R3) Attending Attestation Patient seen and examined. Case reviewed and discussed with the resident team. Agree with plan of care as discussed with me and documented in the resident note. (Lamar Ortiz MD) Problem List: (1) Vision changes ICD Codes: H53.9 - Unspecified visual disturbance Status: Resolved Plan: Patient describes transient loss of bilateral vision with residual blurry vision. May be due to TIA vs amaurosis fugax vs DM retinopathy Head CT w/o contrast is negative Brain MRI negative for any acute changes Carotid Artery US shows no hemodynamically significant stenosis * Monitor for any vision changes * Will defer an ophthalmology consult at this time * 2D echo pending for TIA workup. (2) Dysphagia ICD Codes: R13.10 - Dysphagia, unspecified Status: Resolved Plan: Resolved. Evaluated by speech therapy. Recommended a regular diet with thin liquids. (3) Slurred speech ICD Codes: R47.81 - Slurred speech Status: Chronic Plan: Slurring of speech on exam has resolved. * Continue to monitor for any worsening of speech * Speech therapy was consulted, appreciated recs * Neurology recommended adding a daily aspirin for stroke prevention. (4) Numbness and tingling ICD Codes: R20.0 - Anesthesia of skin; R20.2 - Paresthesia of skin Status: Resolved Plan: Resolved. (5) Hypothyroidism ICD Codes: E03.9 - Hypothyroidism Status: Chronic Plan: TSH WNL at 0.387 * Continue at home medication of levothyroxine 150mcg qD (6) Diabetes mellitus ICD Codes: E11.9 - Diabetes mellitus Status: Chronic Plan: Hold at home medications * Low dose SSI (7) FEN Status: Resolved Plan: Fluids: PO Electrolytes: monitor and replete as needed Nutrition: 1800 ADA diet DVT Prophylaxis: Early ambulation. Lovenox 40mg subQ q24hr GI Prophylaxis: famotidine 20mg po BID Disposition: Patient will return back to her baseline as far as neurologic status. She is no longer having word finding difficulties, slurring of speech, or numbness and tingling. MRI of brain showed no areas of infarct. Patient will be discharged home, with follow-up with her PCP. She was seen and discussed with Dr. Lamar Ortiz, Dr. Jessa Rod, and Dr. Radha Saavedra. (Tarik Morrow MD, R3) Problem Qualifiers (1) Diabetes mellitus: Tarik Morrow MD, R3 Jan 23, 2017 10:33 Lamar Ortiz MD Jan 23, 2017 14:35
[2017-01-23 11:17] VITALS: BP 135/80; PULSE 94; RESP 20; TEMP 98; O2SAT 98
[2017-01-23] MEDS: ENOXAPARIN SODIUM 40 MG/0.4 ML SYRINGE SQ SCH (12:17)
[2017-01-23 13:12] VITALS: PULSE 92
[2017-01-23] MEDS ORDERED: ASPI-183 PO (13:55)
--- NOTE | 2017-01-24 21:14 | HM ---
Date Performed: 01/22/2017 Time Performed: 11:19:00 HOOKUP DATE: 01/22/17 11:19:00 AM Sun ANALYSIS START TIME: 01/22/2017 11:24:00 AM ANALYSIS END TIME: 01/23/2017 11:27:59 AM PATIENT AGE: 61 PATIENT HEIGHT PATIENT WEIGHT DRUG LIST PATIENT DIAGNOSIS: MEDICAL TEST NARRATIVE: The patient's average heart rate was 95 BPM. Heart rates greater than 120 B PM were noted < 1% of the time. No episodes of bradycardia were noted. No pauses exceeding 2.0 s econds were noted. 2154 ventricular ectopics, which represented 2% of the total beat count, were noted. The highest ventricular ectopic frequency occurred from 10:00 AM to 11:00 AM Mon. During thi s time 198 VE(s) occurred. Ventricular ectopics were observed as 0 isolated beat(s) and as 42 cou plet(s). No runs were noted. Some of the ventricular beats occurred in bigeminal cycles. 1 supr aventricular ectopics, which represented < 1% of the total beat count, were noted. The highest supra ventricular ectopic frequency occurred from 06:00 PM to 07:00 PM Sun. During this time 1 SVE(s) occu rred. No episodes of ST depression (defined as -1.0 mm or more) were noted in channel 1. No epis odes of ST depression (defined as -1.0 mm or more) were noted in channel 2. No episodes of ST depres rocío (defined as -1.0 mm or more) were noted in channel 3. TEST INTERPRETATION: AGREE WITH INTERPRETATION. NO DIARY ENTERIES PROVIDED. THE PREDOMINANT RHYT HM WAS SINUS. CONCLUSIONS: NORMAL HOLTER MONITOR Signed by : Collette Hoover
== END 2017-01-23 14:56 | disposition home or self-care (01) ==
LOC: NEPC 01:09 → NEDA 04:53 → NEPFCDU 06:11
PROVIDERS: ADMIT Family Medicine; ATTEND Family Medicine
DX: R47.81 Slurred speech (principal); R20.0 Anesthesia of skin; E11.9 Type 2 diabetes mellitus without complications; I10 Essential (primary) hypertension; E78.5 Hyperlipidemia, unspecified; E03.9 Hypothyroidism, unspecified; H40.9 Unspecified glaucoma; M54.2 Cervicalgia; R13.10 Dysphagia, unspecified; M79.1 Myalgia
CPT/HCPCS: 70450; 70551; 71010; 80053; 80061; 80076; 80307; 81001; 82550; 82948; 83036; 84443; 84484; 85025; 85610; 85730; 92522; 92526; 92610; 93005; 93225; 93226; 93880; 96360; 96361; 96372; 97162; 97165; 97530; 99285; G0378; G8987; G8988; G8989; G8996; G8997; G8998; G8999; G9158; G9186; J1650; J2270; J7030; J7040

== ENCOUNTER 2017-04-05 22:12 | Emergency (ER) | payer MEDICARE, MEDICAID ==
[~2017-04-05] VITALS: Ht 160 cm; Wt 56.0 kg
[~2017-04-05 22:12] MED LIST changes: +ASPI-183 PO; +ZOSTINJ SQ
[2017-04-05 22:15] VITALS: BP 159/83; PULSE 100; RESP 20; TEMP 98.5; O2SAT 100
[2017-04-06 01:01] VITALS: BP 153/80; PULSE 86; RESP 19; O2SAT 100
--- NOTE | 2017-04-06 02:44 | PD ---
HPI Chief Complaint: Fall Time Seen by Provider: 02:20 Travel History International Travel<30 days: No Contact w/Intl Traveler<30days: No Traveled to known affect area: No History of Present Illness HPI 61-year-old female complains of head injury. Patient states that she was opening a bathroom cabinet and objects fell on top of her head and her face. Patient denies loss of consciousness. Patient complained of mild aching headache. Patient denies any visual change. Patient denies any facial pain. Patient denies any chest pain or shortness of breath. Patient denies abdominal pain. Patient denies any focal weakness or numbness of extremity. Patient denies any nausea vomiting. Patient has history of diabetes, chronic kidney disease, hypertension. PFSH Past Medical History Hx Anticoagulant Therapy: Yes (ASA) Anxiety: Yes Depression: Yes Heart Rhythm Problems: No Cancer: No Cardiac Catheterization: No Cardiovascular Problems: Yes High Cholesterol: No Chest Pain: Yes Congestive Heart Failure: No COPD: No Developmental Delay: Yes Diabetes: Yes Patient Takes Glucophage: No Diminished Hearing: No GERD: Yes Genitourinary: Yes (BLADDER INCONTINENCE, at times) Headaches: Yes Heparin Induced Thrombocytopen: No Hypertension: Yes Implanted Vascular Access Dvce: No Musculoskeletal: No Neurologic: No Psychiatric: Yes Reproductive: No Respiratory: No Immunizations Current: Yes Myocardial Infarction: No Renal Failure: Yes (renal insuffiency) Sleep Apnea: No Thyroid Disease: Yes Menopausal: Yes : 0 Para: 0 Miscarriage: 0 : 0 Dilation and Curettage (D&C): Yes Past Surgical History Abdominal Surgery: No Cardiac Surgery: No Coronary Artery Bypass Graft: No Ear Surgery: No Endocrine Surgery: No Eye Surgery: No Genitourinary Surgery: No Gynecologic Surgery: Yes (D & C) Hysterectomy: Yes Neurologic Surgery: No Oral Surgery: No Thoracic Surgery: No Other Surgery: Yes (THYROID SX) Family History Family Myocardial Infarction: No Social History Alcohol Use: No Tobacco Use: No Substance Use: No Allergies-Medications (Allergen,Severity, Reaction): Coded Allergies: No Known Allergies (Verified Adverse Reaction, Unknown, 04/05/17) Reported Meds & Prescriptions Reported Meds & Active Scripts Active Levothyroxine (Levothyroxine Sodium) 150 Mcg Tab 150 Mcg PO DAILY Daily on an empty stomach Zostavax Inj (Zoster Vaccine Live) 0.65 Ml Inj 0.65 Ml SQ .ONCE Tramadol (Tramadol HCl) 50 Mg Tab 50 Mg PO Q8H PRN Aspirin 325 Mg Tab 325 Mg PO DAILY Skelaxin (Metaxalone) 800 Mg Tablet 1 Tab PO TID Lisinopril 5 Mg Tab 5 Mg PO DAILY Zantac (Ranitidine HCl) 150 Mg Tab 150 Mg PO BID Actos (Pioglitazone HCl) 15 Mg Tab 15 Mg PO DAILY Reported [place] 3 1000 mg ([place]-3 Fatty Acids) 1 Cap Cap Ocuvite (Multiple Vitamins W/ Minerals) 1 Tab 1 Tab PO DAILY Imipramine Pamoate 75 Mg Cap 75 Mg PO DAILY Calcium 600+D Plus Minerals (Calcium Carbonate-Vitamin D W/Minerals) 600-400 Mg- Unit Tab 1 Tab PO DAILY Review of Systems General / Constitutional: No: Fever Eyes: No: Visual changes HENT: Positive: Headaches Cardiovascular: No: Chest Pain or Discomfort Respiratory: No: Shortness of Breath Gastrointestinal: No: Abdominal Pain Genitourinary: No: Dysuria Musculoskeletal: No: Pain Skin: No Rash Neurologic: No: Weakness Psychiatric: No: Depression Endocrine: No: Polydipsia Hematologic/Lymphatic: No: Easy Bruising Physical Exam Narrative GENERAL: Well-nourished, well-developed patient. SKIN: Focused skin assessment warm/dry. HEAD: Normocephalic. EYES: No scleral icterus. No injection or drainage. Pupils 2 mm equal reactive. NECK: Supple, trachea midline. No JVD or lymphadenopathy. No neck tenderness. CARDIOVASCULAR: Regular rate and rhythm without murmurs, gallops, or rubs. RESPIRATORY: Breath sounds equal bilaterally. No accessory muscle use. GASTROINTESTINAL: Abdomen soft, non-tender, nondistended. MUSCULOSKELETAL: No cyanosis, or edema. BACK: Nontender without obvious deformity. No CVA tenderness. Neurologic exam normal. Data Data Last Documented VS Vital Signs Date Time Temp Pulse Resp B/P (MAP) Pulse Ox O2 Delivery O2 Flow Rate FiO2 04/06/17 01:01 86 19 153/80 (104) 100 Room Air 04/05/17 22:[address] Brain W/O Iv Contrast(Rout) (04/06/17 02:35) MDM Medical Decision Making Medical Screen Exam Complete: Yes Emergency Medical Condition: Yes Interpretation(s) Last Impressions Head CT 04/06/17 0235 Signed Impressions: Service Date/Time: March 03:14 - CONCLUSION: 1. No evidence of acute intracranial pathology. No masses are identified. Jose Vaughan MD Differential Diagnosis Differential diagnosis including contusion, concussion, intracranial hemorrhage. Narrative Course 61-year-old female with head injury. Diagnosis Primary Impression: Closed head injury Qualified Codes: S09.90XA - Unspecified injury of head, initial encounter Patient Instructions: General Instructions Additional Instructions: Head trauma instructions given. Tylenol as needed for headache. Follow-up with personal physician. Return as needed. Med/Other Pt SpecificInfo: No Change to Meds Disposition: 01 DISCHARGE HOME Condition: Stable Garrick Baldwin MD Apr 06, 2017 02:44
--- NOTE | 2017-04-06 03:43 | RADRPT ---
EXAM DATE/TIME: 04/06/2017 03:14 [facility] COMPARISON: CT BRAIN W/O CONTRAST, January 22, 2017, 2:28. INDICATIONS : Trauma; fall. RADIATION DOSE: 56.35 CTDIvol (mGy) MEDICAL HISTORY : Hypertension. SURGICAL HISTORY : None. ENCOUNTER: Initial ACUITY: 1 day PAIN SCALE: 9/10 LOCATION: cranial TECHNIQUE: Multiple contiguous axial images were obtained of the head. Using automated exposure control and adj ustment of the mA and/or kV according to patient size, radiation dose was kept as low as reasonably a chievable to obtain optimal diagnostic quality images. DICOM format image data is available electro nically for review and comparison. FINDINGS: CEREBRUM: The ventricles are normal for age. No evidence of midline shift, mass lesion, hemorrhage or acute in farction. No extra-axial fluid collections are seen. POSTERIOR FOSSA: The cerebellum and brainstem are intact. The 4th ventricle is midline. The cerebellopontine angle i s unremarkable. EXTRACRANIAL: The visualized portion of the orbits is intact. SKULL: The calvaria is intact. No evidence of skull fracture. CONCLUSION: 1. No evidence of acute intracranial pathology. No masses are identified. Jose Vaughan MD on April 06, 2017 at 3:41 Board Certified Radiologist. This report was verified electronically.
[2017-04-11] MEDS ORDERED: LEVO175T2 PO (12:06)
== END 2017-04-06 04:58 | disposition home or self-care (01) ==
LOC: NEPE 22:12
DX: S09.90XA Unspecified injury of head, initial encounter (principal); I12.9 Hypertensive chronic kidney disease with stage 1 through stage 4 chronic kidney disease, or unspecified chronic kidney disease; E11.22 Type 2 diabetes mellitus with diabetic chronic kidney disease; N18.9 Chronic kidney disease, unspecified; W20.8XXA Other cause of strike by thrown, projected or falling object, initial encounter; Y92.002 Bathroom of unspecified non-institutional (private) residence as the place of occurrence of the external cause
CPT/HCPCS: 70450; 99284

== ENCOUNTER 2017-04-27 02:23 | Emergency (ER) | payer MEDICARE, MEDICAID ==
[~2017-04-27] VITALS: Ht 162.6 cm; Wt 60.0 kg
[~2017-04-27 02:23] MED LIST changes: -ACTO15TA22 PO; -LEVO150T7 PO; +LEVO175T2 PO
[2017-04-27] MEDS ORDERED: SODIUM CHLOR 0.9% 1000 ML INJ 1,000 ML IV SCH (02:48)
[2017-04-27 02:50] VITALS: RESP 16; O2SAT 98
--- NOTE | 2017-04-27 02:54 | PD ---
HPI Chief Complaint: Chest Pain Time Seen by Provider: 02:37 Travel History International Travel<30 days: No Contact w/Intl Traveler<30days: No Traveled to known affect area: No History of Present Illness HPI The patient is a 61-year-old female who presents to the emergency department with multiple complaints. The patient states over the last several months she has lost several pounds, she was seen by her primary physician, Dr. Lamar Ortiz. The patient states that they took her off of the diabetic medications secondary to the weight loss. She now complains of a right sided headache with pain over the entire right side of the body from the right shoulder to the right abdomen down to the right leg. She also complains of bilateral abdominal pain with nausea without any vomiting or diarrhea. She denies any dysuria. She denies any acute chest pain or shortness of breath. Symptoms are moderate, she cannot specify any triggering factors for her current symptoms. PFSH Past Medical History Hx Anticoagulant Therapy: Yes (ASA) Anxiety: Yes Depression: Yes Heart Rhythm Problems: No Cancer: No Cardiac Catheterization: No Cardiovascular Problems: Yes High Cholesterol: No Chest Pain: Yes Congestive Heart Failure: No COPD: No Developmental Delay: Yes Diabetes: Yes Patient Takes Glucophage: No Diminished Hearing: No GERD: Yes Genitourinary: Yes (BLADDER INCONTINENCE, at times) Headaches: Yes Heparin Induced Thrombocytopen: No Hypertension: Yes Implanted Vascular Access Dvce: No Musculoskeletal: No Neurologic: No Psychiatric: Yes Reproductive: No Respiratory: No Immunizations Current: Yes Myocardial Infarction: No Renal Failure: Yes (renal insuffiency) Sleep Apnea: No Thyroid Disease: Yes Menopausal: Yes : 0 Para: 0 Miscarriage: 0 : 0 Dilation and Curettage (D&C): Yes Past Surgical History Abdominal Surgery: No Cardiac Surgery: No Coronary Artery Bypass Graft: No Ear Surgery: No Endocrine Surgery: No Eye Surgery: No Genitourinary Surgery: No Gynecologic Surgery: Yes (D & C) Hysterectomy: Yes Neurologic Surgery: No Oral Surgery: No Thoracic Surgery: No Other Surgery: Yes (THYROID SX) Family History Family Myocardial Infarction: No Social History Alcohol Use: No Tobacco Use: No Substance Use: No Allergies-Medications (Allergen,Severity, Reaction): Coded Allergies: No Known Allergies (Verified Adverse Reaction, Unknown, 04/27/17) Reported Meds & Prescriptions Reported Meds & Active Scripts Active Tramadol (Tramadol HCl) 50 Mg Tab 50 Mg PO Q8H PRN Levothyroxine (Levothyroxine Sodium) 175 Mcg Tab 175 Mcg PO DAILY Aspirin 325 Mg Tab 325 Mg PO DAILY Skelaxin (Metaxalone) 800 Mg Tablet 1 Tab PO TID Lisinopril 5 Mg Tab 5 Mg PO DAILY Zantac (Ranitidine HCl) 150 Mg Tab 150 Mg PO BID Reported [place] 3 1000 mg ([place]-3 Fatty Acids) 1 Cap Cap Ocuvite (Multiple Vitamins W/ Minerals) 1 Tab 1 Tab PO DAILY Imipramine Pamoate 75 Mg Cap 75 Mg PO DAILY Calcium 600+D Plus Minerals (Calcium Carbonate-Vitamin D W/Minerals) 600-400 Mg- Unit Tab 1 Tab PO DAILY Review of Systems Except as stated in HPI: all other systems reviewed are Neg General / Constitutional: No: Fever HENT: Positive: Headaches, Lightheadedness, No: Neck Pain Cardiovascular: No: Chest Pain or Discomfort Respiratory: No: Shortness of Breath Gastrointestinal: Positive: Nausea, Abdominal Pain, No: Vomiting, Diarrhea, Constipation Genitourinary: No: Dysuria Musculoskeletal: Positive: Cramping, Pain (pain over the entire right side of the body), No: Weakness Neurologic: No: Weakness, Paresthesia, Sensory Disturbance Physical Exam Narrative GENERAL: Awake, alert, 61-year-old female who appears her stated age and is in no acute respiratory distress. SKIN: Focused skin assessment warm/dry. HEAD: Atraumatic. Normocephalic. EYES: Pupils equal and round. No injection or drainage. ENT: No nasal bleeding or discharge. Mucous membranes pink and moist. NECK: Trachea midline. No JVD. CARDIOVASCULAR: Regular rate and rhythm. No murmur appreciated. RESPIRATORY: No accessory muscle use. Clear to auscultation. Breath sounds equal bilaterally. GASTROINTESTINAL: Abdomen soft, diffuse bilateral upper quadrant tenderness but no rebound tenderness, guarding, rigidity. MUSCULOSKELETAL: No obvious deformities. No clubbing. No cyanosis. No edema. NEUROLOGICAL: Awake and alert. No obvious cranial nerve deficits. Motor grossly within normal limits. Normal speech. Strength with the upper and lower extremities is 5 out of 5. Nonfocal. Oriented 4. PSYCHIATRIC: Odd affect. Data Data Last Documented VS Vital Signs Date Time Temp Pulse Resp B/P (MAP) Pulse Ox O2 Delivery O2 Flow Rate FiO2 04/27/17 02:50 16 98 Room Air Orders Orders Complete Blood Count With Diff (04/27/17 02:48) Comprehensive Metabolic Panel (04/27/17 02:48) Lipase (04/27/17 02:48) Lactic Acid (04/27/17 02:48) Prothrombin Time / Inr (Pt) (04/27/17 02:48) Act Partial Throm Time (Ptt) (04/27/17 02:48) Urinalysis - C+S If Indicated (04/27/17 02:48) Ct Abd/Pel W/O Iv Contrast (04/27/17 02:48) Iv Access Insert/Monitor (04/27/17 02:48) Ecg Monitoring (04/27/17 02:48) Oximetry (04/27/17 02:48) Morphine Inj (Morphine Inj) (04/27/17 03:00) Ondansetron Inj (Zofran Inj) (04/27/17 03:00) Sodium Chlor 0.9% 1000 Ml Inj (Ns 1000 M (04/27/17 02:48) Sodium Chloride 0.9% Flush (Ns Flush) (04/27/17 03:00) Electrocardiogram (04/27/17 02:48) Ct Brain W/O Iv Contrast(Rout) (04/27/17 ) Urine Culture (04/27/17 03:00) Ciprofloxacin 400 Mg Premix (Cipro 400 M (04/27/17 04:00) Labs Laboratory Tests Test 04/27/17 03:00 04/27/17 03:20 Urine Color YELLOW Urine Turbidity HAZY Urine pH 5.5 Urine Specific [place] 1.027 Urine Protein TRACE mg/dL Urine Glucose (UA) NEG mg/dL Urine Ketones NEG mg/dL Urine Occult Blood NEG Urine Nitrite NEG Urine Bilirubin NEG Urine Urobilinogen LESS THAN 2.0 MG/DL Urine Leukocyte Esterase LARGE Urine RBC 13 /hpf Urine WBC /hpf Urine Squamous Epithelial Cells 6 /hpf Urine Transitional Epithelial Cells <1 /hpf Urine Renal Epithelial Cells <1 /hpf Urine Bacteria MOD /hpf Urine Hyaline Casts 3 /lpf Urine Mucus FEW /lpf Microscopic Urinalysis Comment CULTURE INDICATED White Blood Count 12.2 TH/MM3 Red Blood Count 4.15 MIL/MM3 Hemoglobin 11.5 GM/DL Hematocrit 35.6 % Mean Corpuscular Volume 85.9 FL Mean Corpuscular Hemoglobin 27.6 PG Mean Corpuscular Hemoglobin Concent 32.2 % Red Cell Distribution Width 14.3 % Platelet Count 274 TH/MM3 Mean Platelet Volume 6.3 FL Neutrophils (%) (Auto) 65.1 % Lymphocytes (%) (Auto) 22.9 % Monocytes (%) (Auto) 9.8 % Eosinophils (%) (Auto) 1.5 % Basophils (%) (Auto) 0.7 % Neutrophils # (Auto) 7.9 TH/MM3 Lymphocytes # (Auto) 2.8 TH/MM3 Monocytes # (Auto) 1.2 TH/MM3 Eosinophils # (Auto) 0.2 TH/MM3 Basophils # (Auto) 0.1 TH/MM3 CBC Comment DIFF FINAL Differential Comment Prothrombin Time 10.5 SEC Prothromb Time International Ratio 1.0 RATIO Activated Partial Thromboplast Time 24.0 SEC Blood Urea Nitrogen 20 MG/DL Creatinine 0.95 MG/DL Random Glucose 77 MG/DL Total Protein 6.5 GM/DL Albumin 3.6 GM/DL Calcium Level 9.2 MG/DL Alkaline Phosphatase 77 U/L Aspartate Amino Transf (AST/SGOT) 24 U/L Alanine Aminotransferase (ALT/SGPT) 22 U/L Total Bilirubin 0.3 MG/DL Sodium Level 144 MEQ/L Potassium Level 3.8 MEQ/L Chloride Level 108 MEQ/L Carbon Dioxide Level 29.3 MEQ/L Anion Gap 7 MEQ/L Estimat Glomerular Filtration Rate 60 ML/MIN Lactic Acid Level 1.0 mmol/L Lipase 66 U/L MDM Medical Decision Making Medical Screen Exam Complete: Yes Emergency Medical Condition: Yes Medical Record Reviewed: Yes Interpretation(s) EKG reveals normal sinus rhythm with a rate in 92. No ischemic changes or ectopy noted. Laboratory Tests Test 04/27/17 03:00 04/27/17 03:20 Urine Color YELLOW Urine Turbidity HAZY Urine pH 5.5 Urine Specific [place] 1.027 Urine Protein TRACE mg/dL Urine Glucose (UA) NEG mg/dL Urine Ketones NEG mg/dL Urine Occult Blood NEG Urine Nitrite NEG Urine Bilirubin NEG Urine Urobilinogen LESS THAN 2.0 MG/DL Urine Leukocyte Esterase LARGE Urine RBC 13 /hpf Urine WBC /hpf Urine Squamous Epithelial Cells 6 /hpf Urine Transitional Epithelial Cells <1 /hpf Urine Renal Epithelial Cells <1 /hpf Urine Bacteria MOD /hpf Urine Hyaline Casts 3 /lpf Urine Mucus FEW /lpf Microscopic Urinalysis Comment CULTURE INDICATED White Blood Count 12.2 TH/MM3 Red Blood Count 4.15 MIL/MM3 Hemoglobin 11.5 GM/DL Hematocrit 35.6 % Mean Corpuscular Volume 85.9 FL Mean Corpuscular Hemoglobin 27.6 PG Mean Corpuscular Hemoglobin Concent 32.2 % Red Cell Distribution Width 14.3 % Platelet Count 274 TH/MM3 Mean Platelet Volume 6.3 FL Neutrophils (%) (Auto) 65.1 % Lymphocytes (%) (Auto) 22.9 % Monocytes (%) (Auto) 9.8 % Eosinophils (%) (Auto) 1.5 % Basophils (%) (Auto) 0.7 % Neutrophils # (Auto) 7.9 TH/MM3 Lymphocytes # (Auto) 2.8 TH/MM3 Monocytes # (Auto) 1.2 TH/MM3 Eosinophils # (Auto) 0.2 TH/MM3 Basophils # (Auto) 0.1 TH/MM3 CBC Comment DIFF FINAL Differential Comment Prothrombin Time 10.5 SEC Prothromb Time International Ratio 1.0 RATIO Activated Partial Thromboplast Time 24.0 SEC Blood Urea Nitrogen 20 MG/DL Creatinine 0.95 MG/DL Random Glucose 77 MG/DL Total Protein 6.5 GM/DL Albumin 3.6 GM/DL Calcium Level 9.2 MG/DL Alkaline Phosphatase 77 U/L Aspartate Amino Transf (AST/SGOT) 24 U/L Alanine Aminotransferase (ALT/SGPT) 22 U/L Total Bilirubin 0.3 MG/DL Sodium Level 144 MEQ/L Potassium Level 3.8 MEQ/L Chloride Level 108 MEQ/L Carbon Dioxide Level 29.3 MEQ/L Anion Gap 7 MEQ/L Estimat Glomerular Filtration Rate 60 ML/MIN Lactic Acid Level 1.0 mmol/L Lipase 66 U/L Last Impressions Abdomen/Pelvis CT 04/27/17 0248 Signed Impressions: Service Date/Time: April 03:20 - CONCLUSION: 1. No acute findings. Previous cholecystectomy. Mild scoliosis. Thomas King MD Head CT 04/27/17 0000 Signed Impressions: Service Date/Time: April 03:16 - CONCLUSION: 1. No acute intracranial abnormalities. Thomas King MD Differential Diagnosis Differential diagnosis includes migraine, complicated migraine, constipation, diverticulitis, pancreatitis, hypokalemia, hyperkalemia, dehydration. Narrative Course IV was established, labs are drawn and sent, and the patient was placed on cardiac telemetry monitoring and continuous pulse oximetry monitoring. CT of the brain and abdomen/pelvis was ordered. The patient was provided morphine and Zofran for the entire right sided body pain. White count was mildly elevated. UA reveals innumerable wbc's with a few RBCs consistent with UTI/ pyelonephritis. Therefore, the patient was administered Cipro 400 mg intravenously. The patient's LFTs and lipase are unremarkable. CT the brain reveals no acute intracranial abnormalities. CT the abdomen and pelvis is unremarkable except for postoperative changes from previous cholecystectomy and mild scoliosis. Patient has UTI will be treated outpatient with Cipro. She is advised to follow-up with her primary physician. Diagnosis Primary Impression: UTI (urinary tract infection) Qualified Codes: N30.00 - Acute cystitis without hematuria Additional Impressions: Cephalgia Qualified Codes: R51 - Headache Abdominal pain Qualified Codes: R10.84 - Generalized abdominal pain Patient Instructions: General Instructions Additional Instructions: Please provide the patient a copy of her CT results and lab results at discharge. Follow-up with your primary physician. Medications as directed. Return if symptoms worsen or progress. Med/Other Pt SpecificInfo: Prescription(s) given Scripts Ciprofloxacin (Cipro) 500 Mg Tab 500 MG PO BID for Infection for 7 Days, #14 TAB 0 Refills Prov: Errol Wolf MD 04/27/17 Disposition: DISCHARGE HOME Condition: Stable Errol Wolf MD Apr 27, 2017 02:54
[2017-04-27] MEDS ORDERED: SODIUM CHLORIDE 0.9% FLUSH 10 ML FLUSH IV FLUSH PRN (03:00)
[2017-04-27] MEDS ORDERED: ONDANSETRON HCL 4 MG/2 ML VIAL IVP ONE (03:00)
[2017-04-27] MEDS ORDERED: MORPHINE SULFATE 4 MG/ML INJ IV PUSH ONE (03:00)
[2017-04-27 03:38] LABS: AUTOMATED NEUTROPHIL # 7.9 TH/MM3 (1.8-7.7); BASOPHIL # 0.1 TH/MM3 (0-0.2); BASOPHIL % 0.7 % (0.0-2.0); EOSINOPHIL # 0.2 TH/MM3 (0-0.4); EOSINOPHIL % 1.5 % (0.0-4.0); HEMATOCRIT 35.6 % (35.0-46.0); HEMOGLOBIN 11.5 GM/DL (11.6-15.3); LYMPH % 22.9 % (9.0-44.0); LYMPHOCYTE # 2.8 TH/MM3 (1.0-4.8); MEAN CELL VOLUME 85.9 FL (80.0-100.0); MEAN CORPUSCULAR HEMOGLOBIN 27.6 PG (27.0-34.0); MEAN CORPUSCULAR HGB CONC 32.2 % (32.0-36.0); MEAN PLATELET VOLUME 6.3 FL (7.0-11.0); MONO % 9.8 % (0.0-8.0); MONOCYTE # 1.2 TH/MM3 (0-0.9); NEUT % 65.1 % (16.0-70.0); PLATELET COUNT 274 TH/MM3 (150-450); RED BLOOD COUNT 4.15 MIL/MM3 (4.00-5.30); RED CELL DISTRIBUTION WIDTH 14.3 % (11.6-17.2); WHITE BLOOD COUNT 12.2 TH/MM3 (4.0-11.0)
[2017-04-27 03:46] LABS: BACTERIA, URINE MOD /hpf; BILIRUBIN, URINE NEG (NEG); BLOOD, URINE NEG (NEG); GLUCOSE,URINE NEG (NEG); HYALINE CAST, URINE 3 /lpf (RARE); KETONE, URINE NEG (NEG); MUCUS URINE FEW /lpf (OCC); NITRITE,URINE NEG (NEG); PH, URINE 5.5 (5.0-8.5); RENAL EPITHELIAL CELLS <1 /hpf; SQUAMOUS EPITHELIAL CELL URINE 6 /hpf (0-5); TRANSITIONAL EPI CELLS, URINE <1 /hpf; URINE COLOR YELLOW (YELLW/STRAW); URINE LEUKOCYTE ESTERASE LARGE (NEG)
[2017-04-27 03:52] LABS: PROTHROMBIN TIME - PATIENT 10.5 SEC (9.8-11.6)
--- NOTE | 2017-04-27 03:57 | RADRPT ---
EXAM DATE/TIME: 04/27/2017 03:16 [facility] COMPARISON: CT BRAIN W/O CONTRAST, April 06, 2017, 3:14. INDICATIONS : Cephalgia. RADIATION DOSE: 56.35 CTDIvol (mGy) MEDICAL HISTORY : Hypertension. Renal insufficiency. Gastroesophageal reflux disease.Diabetes. SURGICAL HISTORY : Hysterectomy. ENCOUNTER: Initial ACUITY: 3 days PAIN SCALE: 9/10 LOCATION: cranial TECHNIQUE: Multiple contiguous axial images were obtained of the head. Using automated exposure control and adj ustment of the mA and/or kV according to patient size, radiation dose was kept as low as reasonably a chievable to obtain optimal diagnostic quality images. DICOM format image data is available electro nically for review and comparison. FINDINGS: CEREBRUM: The ventricles are normal for age. No evidence of midline shift, mass lesion, hemorrhage or acute in farction. No extra-axial fluid collections are seen. POSTERIOR FOSSA: The cerebellum and brainstem are intact. The 4th ventricle is midline. The cerebellopontine angle i s unremarkable. EXTRACRANIAL: The visualized portion of the orbits is intact. SKULL: The calvaria is intact. No evidence of skull fracture. CONCLUSION: 1. No acute intracranial abnormalities. Thomas King MD on April 27, 2017 at 3:54 Board Certified Radiologist. This report was verified electronically.
[2017-04-27] MEDS ORDERED: CIPROFLOXACIN 400 MG PREMIX 200 ML IV ONE (04:00)
--- NOTE | 2017-04-27 04:01 | RADRPT ---
EXAM DATE/TIME: 04/27/2017 03:20 [facility] COMPARISON: No previous studies available for comparison. INDICATIONS : Epigastric abdominal pain with nausea. ORAL CONTRAST: No oral contrast ingested. RADIATION DOSE: 6.64 CTDIvol (mGy) MEDICAL HISTORY : Renal insufficiency. Hypertension. Gastroesophageal reflux disease.Diabetes. SURGICAL HISTORY : Hysterectomy. ENCOUNTER: Initial ACUITY: 3 days PAIN SCALE: 5/10 LOCATION: Bilateral upper quadrant TECHNIQUE: Volumetric scanning of the abdomen and pelvis was performed. Using automated exposure control and ad justment of the mA and/or kV according to patient size, radiation dose was kept as low as reasonably achievable to obtain optimal diagnostic quality images. DICOM format image data is available electro nically for review and comparison. FINDINGS: Minimal dependent atelectasis at the lung bases. No acute findings in the liver, spleen, adrenals, ki dneys or pancreas. Previous cholecystectomy. There is mild constipation. No bowel obstruction or free fluid. No free air. 2 radiopaque pills are p resent within small bowel. CONCLUSION: 1. No acute findings. Previous cholecystectomy. Mild scoliosis. Thomas King MD on April 27, 2017 at 3:56 Board Certified Radiologist. This report was verified electronically.
[2017-04-27 04:04] LABS: ALKALINE PHOSPHATASE 77 U/L (45-117); TOTAL BILIRUBIN ADULT 0.3 MG/DL (0.2-1.0); TOTAL PROTEIN 6.5 GM/DL (6.4-8.2)
[2017-04-27 04:06] LABS: ALBUMIN 3.6 GM/DL (3.4-5.0); ALT (GPT) 22 U/L (10-53); AST (GOT) 24 U/L (15-37); BICARBONATE 29.3 MEQ/L (21.0-32.0); BLOOD UREA NITROGEN 20 MG/DL (7-18); CALCIUM 9.2 MG/DL (8.5-10.1); CHLORIDE 108 MEQ/L (98-107); CREATININE 0.95 MG/DL (0.50-1.00); GLOMERULAR FILTRATION RATE 60 ML/MIN (>89); GLUCOSE,RANDOM 77 MG/DL (74-106); SODIUM (NA) 144 MEQ/L (136-145)
[2017-04-27] MEDS ORDERED: CIPR-9 PO (04:14)
[2017-04-27] MEDS ORDERED: MORPHINE SULFATE 2 MG/ML INJ IV PUSH ONE (04:30)
[2017-04-27] MEDS ORDERED: KETOROLAC TROMETHAMINE 30 MG/ML (IVP) VIAL IV PUSH ONE (04:30)
--- NOTE | 2017-04-27 08:10 | EKG ---
Date Performed: 04/27/2017 Time Performed: 02:50:03 PTAGE: 61 years EKG: Sinus rhythm NORMAL ECG No significant change from prior electrocardiogram. PREVIOUS TRACING : 01/22/2017 02.01 DOCTOR: Talat Guerra Interpretating Date/Time 04/27/2017 08:09:12
== END 2017-04-27 06:50 | disposition home or self-care (01) ==
LOC: NEPE 02:23
DX: N39.0 Urinary tract infection, site not specified (principal); B96.20 Unspecified Escherichia coli [E. coli] as the cause of diseases classified elsewhere; R51 Headache; R10.84 Generalized abdominal pain; M41.9 Scoliosis, unspecified; F41.9 Anxiety disorder, unspecified; F32.9 Major depressive disorder, single episode, unspecified; E11.9 Type 2 diabetes mellitus without complications; I10 Essential (primary) hypertension
CPT/HCPCS: 70450; 74176; 80053; 81001; 83605; 83690; 85025; 85610; 85730; 87077; 87086; 87186; 93005; 96361; 96365; 96366; 96375; 96376; 99285; J0744; J1885; J2270; J2405; J7030

== ENCOUNTER 2017-04-27 07:49 | Emergency (ER) | payer MEDICARE, MEDICAID ==
[~2017-04-27] VITALS: Ht 162.6 cm; Wt 54.5 kg
[~2017-04-27 07:49] MED LIST changes: +CIPR-9 PO
[2017-04-27 07:56] VITALS: BP 105/65; PULSE 79; RESP 12; TEMP 97.7; O2SAT 100
--- NOTE | 2017-04-27 09:31 | PD ---
HPI Chief Complaint: Medical Clearance Time Seen by Provider: 08:53 Travel History International Travel<30 days: No Contact w/Intl Traveler<30days: No Traveled to known affect area: No History of Present Illness HPI 61-year-old female complains of generalized malaise and weakness and right- sided body pain abdominal pain back pain. Patient states that she has the symptom for long time. Patient states that she has been taking pain pills for that. Patient has been seen by personal physician for those symptoms. Patient states that she had increasing generalized malaise and weakness for the past several months. Patient couldn't pinpoint to me what is acute today. Patient was seen in emergency room last night blood test done, UA done, CT of brain and abdomen pelvis done last night. Patient was given Cipro for UTI. Patient is advised to follow with her physician. Patient came to the ED again this morning with the same complaints. PFSH Past Medical History Hx Anticoagulant Therapy: Yes (ASA) Anxiety: Yes Depression: Yes Heart Rhythm Problems: No Cancer: No Cardiac Catheterization: No Cardiovascular Problems: Yes High Cholesterol: No Chest Pain: Yes Congestive Heart Failure: No COPD: No Developmental Delay: Yes Diabetes: No (HX OF) Diminished Hearing: No GERD: Yes Genitourinary: Yes (BLADDER INCONTINENCE, at times) Headaches: Yes Heparin Induced Thrombocytopen: No Hypertension: Yes Implanted Vascular Access Dvce: No Musculoskeletal: No Neurologic: No Psychiatric: Yes Reproductive: No Respiratory: No Immunizations Current: Yes Myocardial Infarction: No Renal Failure: Yes (renal insuffiency) Sleep Apnea: No Thyroid Disease: Yes Tetanus Vaccination: > 5 Years Influenza Vaccination: Yes Menopausal: Yes : 0 Para: 0 Miscarriage: 0 : 0 Dilation and Curettage (D&C): Yes Past Surgical History Abdominal Surgery: No Cardiac Surgery: No Coronary Artery Bypass Graft: No Ear Surgery: No Endocrine Surgery: No Eye Surgery: No Genitourinary Surgery: No Gynecologic Surgery: Yes (D & C) Hysterectomy: Yes Neurologic Surgery: No Oral Surgery: No Thoracic Surgery: No Other Surgery: Yes (THYROID SX) Social History Alcohol Use: No Tobacco Use: No Substance Use: No Allergies-Medications (Allergen,Severity, Reaction): Coded Allergies: No Known Allergies (Verified Adverse Reaction, Unknown, 04/27/17) Reported Meds & Prescriptions Reported Meds & Active Scripts Active Cipro (Ciprofloxacin HCl) 500 Mg Tab 500 Mg PO BID 7 Days Tramadol (Tramadol HCl) 50 Mg Tab 50 Mg PO Q8H PRN Levothyroxine (Levothyroxine Sodium) 175 Mcg Tab 175 Mcg PO DAILY Aspirin 325 Mg Tab 325 Mg PO DAILY Skelaxin (Metaxalone) 800 Mg Tablet 1 Tab PO TID Lisinopril 5 Mg Tab 5 Mg PO DAILY Zantac (Ranitidine HCl) 150 Mg Tab 150 Mg PO BID Reported [place] 3 1000 mg ([place]-3 Fatty Acids) 1 Cap Cap Ocuvite (Multiple Vitamins W/ Minerals) 1 Tab 1 Tab PO DAILY Imipramine Pamoate 75 Mg Cap 75 Mg PO DAILY Calcium 600+D Plus Minerals (Calcium Carbonate-Vitamin D W/Minerals) 600-400 Mg- Unit Tab 1 Tab PO DAILY Review of Systems General / Constitutional: No: Fever Eyes: No: Visual changes HENT: No: Headaches Cardiovascular: No: Chest Pain or Discomfort Respiratory: No: Shortness of Breath Gastrointestinal: Positive: Abdominal Pain Genitourinary: No: Dysuria Musculoskeletal: Positive: Pain Skin: No Rash Neurologic: No: Weakness Psychiatric: No: Depression Endocrine: No: Polydipsia Hematologic/Lymphatic: No: Easy Bruising Physical Exam Narrative GENERAL: Well-nourished, well-developed patient. SKIN: Focused skin assessment warm/dry. HEAD: Normocephalic. EYES: No scleral icterus. No injection or drainage. NECK: Supple, trachea midline. No JVD or lymphadenopathy. CARDIOVASCULAR: Regular rate and rhythm without murmurs, gallops, or rubs. RESPIRATORY: Breath sounds equal bilaterally. No accessory muscle use. GASTROINTESTINAL: Abdomen soft, nondistended. Patient has diffuse tenderness over the abdomen. No rebound tenderness. No mass. MUSCULOSKELETAL: No cyanosis, or edema. BACK: Mild tenderness on palpation lumbar area, without obvious deformity. No CVA tenderness. Neurologic exam normal. Data Data Last Documented VS Vital Signs Date Time Temp Pulse Resp B/P (MAP) Pulse Ox O2 Delivery O2 Flow Rate FiO2 04/27/17 08:36 83 18 04/27/17 07:56 97.7 105/65 (78) 100 Orders Orders Ed Discharge Order (04/27/17 09:31) MDM Medical Decision Making Medical Screen Exam Complete: Yes Emergency Medical Condition: Yes Differential Diagnosis Differential diagnosis including acute on chronic pain, UTI. Narrative Course 61-year-old female with multiple complaints including pain on the right side of body and low back pain which is going on for long time. I spoke with her personal physician Dr. Lamar Ortiz. Advised patient to continue with Cipro as directed. Follow-up with personal physician in the office. Return if worse. Diagnosis Primary Impression: UTI (urinary tract infection) Qualified Codes: N30.00 - Acute cystitis without hematuria Additional Impression: Chronic pain Qualified Codes: G89.4 - Chronic pain syndrome Patient Instructions: General Instructions Additional Instructions: Continue with Cipro as directed. Follow-up with personal physician. Return if worse. Med/Other Pt SpecificInfo: No Change to Meds Disposition: 01 DISCHARGE HOME Condition: Stable Garrick Baldwin MD Apr 27, 2017 09:31
== END 2017-04-27 10:01 | disposition home or self-care (01) ==
LOC: NEPC 07:49
DX: N39.0 Urinary tract infection, site not specified (principal); G89.4 Chronic pain syndrome; R53.81 Other malaise; R53.1 Weakness; I10 Essential (primary) hypertension; K21.9 Gastro-esophageal reflux disease without esophagitis; N28.9 Disorder of kidney and ureter, unspecified; F41.9 Anxiety disorder, unspecified; F43.29 Adjustment disorder with other symptoms
CPT/HCPCS: 99281

== ENCOUNTER 2017-05-05 16:00 | Emergency (ER) | payer MEDICARE, MEDICAID ==
[~2017-05-05] VITALS: Ht 162.6 cm; Wt 64.0 kg
[~2017-05-05 16:00] MED LIST changes: -ZOSTINJ SQ
[2017-05-05 16:12] VITALS: BP 148/89; PULSE 88; RESP 18; TEMP 97.7; O2SAT 98
[2017-05-05] MEDS ORDERED: SODIUM CHLOR 0.9% 1000 ML INJ 1,000 ML IV ONE (16:21)
--- NOTE | 2017-05-05 16:23 | PD ---
HPI Chief Complaint: Syncope/Near-Syncope Time Seen by Provider: 16:21 Travel History International Travel<30 days: No Contact w/Intl Traveler<30days: No Traveled to known affect area: No History of Present Illness HPI 61-year-old female with history of CAD, hypertension, anxiety, syncope, diabetes , presents emergency department following an episode where she felt lightheaded. She felt like she is going to blackout. She did not actually fall rather she was assisted to the ground. She states she did not lose consciousness. She reports right rib pain. Denies any focal deficits or weakness. No chest or tightness. No difficulty breathing. No nausea vomiting. Patient is moving all extremity. She has been ambulatory since the incident. She has no other symptoms to report. PFSH Past Medical History Hx Anticoagulant Therapy: Yes (ASA) Anxiety: Yes Depression: Yes Heart Rhythm Problems: No Cancer: No Cardiac Catheterization: No Cardiovascular Problems: Yes High Cholesterol: No Chest Pain: Yes Congestive Heart Failure: No COPD: No Developmental Delay: Yes Diabetes: No (HX OF) Diminished Hearing: No GERD: Yes Genitourinary: Yes (BLADDER INCONTINENCE, at times) Headaches: Yes Heparin Induced Thrombocytopen: No Hypertension: Yes Implanted Vascular Access Dvce: No Musculoskeletal: No Neurologic: No Psychiatric: Yes Reproductive: No Respiratory: No Immunizations Current: Yes Myocardial Infarction: No Renal Failure: Yes (renal insuffiency) Sleep Apnea: No Thyroid Disease: Yes Menopausal: Yes : 0 Para: 0 Miscarriage: 0 : 0 Dilation and Curettage (D&C): Yes Past Surgical History Abdominal Surgery: No Cardiac Surgery: No Coronary Artery Bypass Graft: No Ear Surgery: No Endocrine Surgery: No Eye Surgery: No Genitourinary Surgery: No Gynecologic Surgery: Yes (D & C) Hysterectomy: Yes Neurologic Surgery: No Oral Surgery: No Thoracic Surgery: No Other Surgery: Yes (THYROID SX) Social History Alcohol Use: No Tobacco Use: No Substance Use: No Allergies-Medications (Allergen,Severity, Reaction): Coded Allergies: No Known Allergies (Verified Adverse Reaction, Unknown, 04/27/17) Reported Meds & Prescriptions Reported Meds & Active Scripts Active Robaxin (Methocarbamol) 500 Mg Tab 500 Mg PO QID PRN Cipro (Ciprofloxacin HCl) 500 Mg Tab 500 Mg PO BID 7 Days Tramadol (Tramadol HCl) 50 Mg Tab 50 Mg PO Q8H PRN Levothyroxine (Levothyroxine Sodium) 175 Mcg Tab 175 Mcg PO DAILY Aspirin 325 Mg Tab 325 Mg PO DAILY Skelaxin (Metaxalone) 800 Mg Tablet 1 Tab PO TID Lisinopril 5 Mg Tab 5 Mg PO DAILY Zantac (Ranitidine HCl) 150 Mg Tab 150 Mg PO BID Reported [place] 3 1000 mg ([place]-3 Fatty Acids) 1 Cap Cap Ocuvite (Multiple Vitamins W/ Minerals) 1 Tab 1 Tab PO DAILY Imipramine Pamoate 75 Mg Cap 75 Mg PO DAILY Calcium 600+D Plus Minerals (Calcium Carbonate-Vitamin D W/Minerals) 600-400 Mg- Unit Tab 1 Tab PO DAILY Review of Systems Except as stated in HPI: all other systems reviewed are Neg Physical Exam Narrative GENERAL: Well-nourished female patient in no acute distress. SKIN: Focused skin assessment warm/dry. HEAD: Atraumatic. Normocephalic. EYES: Pupils equal and round. No scleral icterus. No injection or drainage. ENT: No nasal bleeding or discharge. Mucous membranes pink and moist. NECK: Trachea midline. No JVD. Cervical collar is in place CARDIOVASCULAR: Regular rate and rhythm. No murmur appreciated. RESPIRATORY: No accessory muscle use. Clear to auscultation. Breath sounds equal bilaterally. GASTROINTESTINAL: Abdomen soft, non-tender, nondistended. Hepatic and splenic margins not palpable. MUSCULOSKELETAL: No obvious deformities. No clubbing. No cyanosis. No edema. NEUROLOGICAL: Awake and alert. No obvious cranial nerve deficits. Motor grossly within normal limits. Normal speech. PSYCHIATRIC: Appropriate mood and affect; insight and judgment normal. Data Data Last Documented VS Vital Signs Date Time Temp Pulse Resp B/P (MAP) Pulse Ox O2 Delivery O2 Flow Rate FiO2 05/05/17 19:51 05/05/17 18:51 86 18 88 18 84 18 05/05/17 18:24 99 Room Air 05/05/17 16:12 97.7 Orders Orders Electrocardiogram (05/05/17 16:21) Basic Metabolic Panel (Bmp) (05/05/17 16:21) Complete Blood Count With Diff (05/05/17 16:21) Magnesium (Mg) (05/05/17 16:21) Ckmb (Isoenzyme) Profile (05/05/17 16:21) Troponin I (05/05/17 16:21) Act Partial Throm Time (Ptt) (05/05/17 16:21) Prothrombin Time / Inr (Pt) (05/05/17 16:21) Urinalysis - C+S If Indicated (05/05/17 16:21) Chest, Single Ap (05/05/17 16:21) Ct Brain W/O Iv Contrast(Rout) (05/05/17 16:21) Ct Cerv Spine W/O Contrast (05/05/17 16:21) Ecg Monitoring (05/05/17 16:21) Iv Access Insert/Monitor (05/05/17 16:21) Oximetry (05/05/17 16:21) Sodium Chloride 0.9% Flush (Ns Flush) (05/05/17 16:30) Sodium Chlor 0.9% 1000 Ml Inj (Ns 1000 M (05/05/17 16:21) Remove Cervical Collar (05/05/17 18:33) Orthostatic Blood Pressure (05/05/17 18:33) Ketorolac Inj (Toradol Inj) (05/05/17 19:15) Ed Discharge Order (05/05/17 19:43) Labs Laboratory Tests Test 05/05/17 16:48 05/05/17 16:50 Urine Color YELLOW Urine Turbidity CLEAR Urine pH 6.5 Urine Specific [place] 1.012 Urine Protein NEG mg/dL Urine Glucose (UA) NEG mg/dL Urine Ketones NEG mg/dL Urine Occult Blood NEG Urine Nitrite NEG Urine Bilirubin NEG Urine Urobilinogen LESS THAN 2.0 MG/DL Urine Leukocyte Esterase NEG Urine WBC 1 /hpf Urine Squamous Epithelial Cells <1 /hpf Urine Hyaline Casts 6 /lpf Microscopic Urinalysis Comment CULT NOT INDICATED White Blood Count 9.3 TH/MM3 Red Blood Count 4.44 MIL/MM3 Hemoglobin 12.4 GM/DL Hematocrit 38.2 % Mean Corpuscular Volume 85.9 FL Mean Corpuscular Hemoglobin 28.0 PG Mean Corpuscular Hemoglobin Concent 32.6 % Red Cell Distribution Width 14.5 % Platelet Count 234 TH/MM3 Mean Platelet Volume 6.4 FL Neutrophils (%) (Auto) 62.3 % Lymphocytes (%) (Auto) 25.4 % Monocytes (%) (Auto) 9.5 % Eosinophils (%) (Auto) 1.7 % Basophils (%) (Auto) 1.1 % Neutrophils # (Auto) 5.8 TH/MM3 Lymphocytes # (Auto) 2.3 TH/MM3 Monocytes # (Auto) 0.9 TH/MM3 Eosinophils # (Auto) 0.2 TH/MM3 Basophils # (Auto) 0.1 TH/MM3 CBC Comment DIFF FINAL Differential Comment Prothrombin Time 10.3 SEC Prothromb Time International Ratio 1.0 RATIO Activated Partial Thromboplast Time 23.6 SEC Blood Urea Nitrogen 26 MG/DL Creatinine 1.04 MG/DL Random Glucose 85 MG/DL Calcium Level 10.0 MG/DL Magnesium Level 2.0 MG/DL Sodium Level 141 MEQ/L Potassium Level 4.1 MEQ/L Chloride Level 105 MEQ/L Carbon Dioxide Level 30.2 MEQ/L Anion Gap 6 MEQ/L Estimat Glomerular Filtration Rate 54 ML/MIN Total Creatine Kinase 47 U/L Troponin I LESS THAN 0.02 NG/ML MDM Medical Decision Making Medical Screen Exam Complete: Yes Emergency Medical Condition: Yes Medical Record Reviewed: Yes Differential Diagnosis Contusion versus fracture versus sprain versus hemorrhage versus syncope versus near-syncope versus electrode abnormality Narrative Course 61-year-old female is in emergency department for evaluation following a near- syncopal episode. Patient appears without distress. Vital signs are stable. She has no focal deficits or weakness. Imaging studies and lab work is complete. Is reviewed with no acute abnormality. Patient is ambulating throughout the emergency department. She is going to the restroom without difficulty. She is requesting food and something to drink. She is provided this. I have discussed the patient my attending physician. She'll be discharged home to follow-up outpatient with primary care provider. Patient agrees to return immediately with any acute worsening symptoms. Laboratory Tests Test 05/05/17 16:48 05/05/17 16:50 Urine Color YELLOW Urine Turbidity CLEAR Urine pH 6.5 Urine Specific [place] 1.012 Urine Protein NEG mg/dL Urine Glucose (UA) NEG mg/dL Urine Ketones NEG mg/dL Urine Occult Blood NEG Urine Nitrite NEG Urine Bilirubin NEG Urine Urobilinogen LESS THAN 2.0 MG/DL Urine Leukocyte Esterase NEG Urine WBC 1 /hpf Urine Squamous Epithelial Cells <1 /hpf Urine Hyaline Casts 6 /lpf Microscopic Urinalysis Comment CULT NOT INDICATED White Blood Count 9.3 TH/MM3 Red Blood Count 4.44 MIL/MM3 Hemoglobin 12.4 GM/DL Hematocrit 38.2 % Mean Corpuscular Volume 85.9 FL Mean Corpuscular Hemoglobin 28.0 PG Mean Corpuscular Hemoglobin Concent 32.6 % Red Cell Distribution Width 14.5 % Platelet Count 234 TH/MM3 Mean Platelet Volume 6.4 FL Neutrophils (%) (Auto) 62.3 % Lymphocytes (%) (Auto) 25.4 % Monocytes (%) (Auto) 9.5 % Eosinophils (%) (Auto) 1.7 % Basophils (%) (Auto) 1.1 % Neutrophils # (Auto) 5.8 TH/MM3 Lymphocytes # (Auto) 2.3 TH/MM3 Monocytes # (Auto) 0.9 TH/MM3 Eosinophils # (Auto) 0.2 TH/MM3 Basophils # (Auto) 0.1 TH/MM3 CBC Comment DIFF FINAL Differential Comment Prothrombin Time 10.3 SEC Prothromb Time International Ratio 1.0 RATIO Activated Partial Thromboplast Time 23.6 SEC Blood Urea Nitrogen 26 MG/DL Creatinine 1.04 MG/DL Random Glucose 85 MG/DL Calcium Level 10.0 MG/DL Magnesium Level 2.0 MG/DL Sodium Level 141 MEQ/L Potassium Level 4.1 MEQ/L Chloride Level 105 MEQ/L Carbon Dioxide Level 30.2 MEQ/L Anion Gap 6 MEQ/L Estimat Glomerular Filtration Rate 54 ML/MIN Total Creatine Kinase 47 U/L Troponin I LESS THAN 0.02 NG/ML Last Impressions Head CT 05/05/171620 Signed Impressions: Service Date/Time: Friday, May 05, 2017 16:52 - CONCLUSION: Negative for acute process. Gideon Cruz MD FACR Chest X-Ray 05/05/171620 Signed Impressions: Service Date/Time: Friday, May 05, 2017 16:45 - CONCLUSION: Asymmetrical apical pleural changes more prominent on the right than the left, nonspecific Gideon Cruz MD FACR Cervical Spine CT 05/05/171620 Signed Impressions: Service Date/Time: Friday, May 05, 2017 16:58 - CONCLUSION: 1. Multilevel degenerative disc disease most prominent at C5-6 and C6-7 with loss of disc height and uncovertebral ridging. 2. Severe facet degeneration with bony fragmentation rightward CT 3. Facet hypertrophy leftward at C5-6 and C6-7 encroaches on the neural foramen and could compromise the exiting left C6 and left C7 nerve root. 3. Prominent arachnoid granulation in the occiput centrally. No fracture. Jerome Brady MD Diagnosis Primary Impression: Near syncope Additional Impression: Musculoskeletal pain Referrals: Primary Care Physician Patient Instructions: General Instructions, Syncope (ED) Additional Instructions: Rest Maintain adequate oral hydration Follow-up with a primary care provider. Call Monday for an appointment Return immediately with any acute worsening of symptoms Med/Other Pt SpecificInfo: Prescription(s) given Scripts Methocarbamol (Robaxin) 500 Mg Tab 500 MG PO QID Y for MUSCLE SPASM, #20 TAB 0 Refills Prov: Beronica Feliz 05/05/17 Disposition: 01 DISCHARGE HOME Condition: Stable Beronica Feliz May 05, 2017 16:23
[2017-05-05] MEDS ORDERED: SODIUM CHLORIDE 0.9% FLUSH 10 ML FLUSH IVF PRN (16:30)
--- NOTE | 2017-05-05 17:03 | RADRPT ---
EXAM DATE/TIME: 05/05/2017 16:45 [facility] COMPARISON: CHEST SINGLE AP, January 22, 2017, 1:40. INDICATIONS : Chest pain post fall today MEDICAL HISTORY : None. SURGICAL HISTORY : None. ENCOUNTER: Initial ACUITY: 1 day PAIN SCORE: 5/10 LOCATION: Bilateral lower chest FINDINGS: Very minimal asymmetrical parenchymal changes right apex when compared to the left. There is no pneu mothorax.. The cardiomediastinal contours are unremarkable. Osseous structures are intact. CONCLUSION: Asymmetrical apical pleural changes more prominent on the right than the left, nonspe cific Gideon Cruz MD FACR on May 05, 2017 at 17:00 Board Certified Radiologist. This report was verified electronically.
--- NOTE | 2017-05-05 17:06 | RADRPT ---
EXAM DATE/TIME: 05/05/2017 16:52 [facility] COMPARISON: CT BRAIN W/O CONTRAST, April 27, 2017, 3:16. INDICATIONS : Head pain due to fall. RADIATION DOSE: 56.35 CTDIvol (mGy) MEDICAL HISTORY : Cardiovascular disease. Hypertension. SURGICAL HISTORY : Hysterectomy. ENCOUNTER: Initial ACUITY: 1 day PAIN SCALE: 6/10 LOCATION: Bilateral neck region. TECHNIQUE: Multiple contiguous axial images were obtained of the head. Using automated exposure control and adj ustment of the mA and/or kV according to patient size, radiation dose was kept as low as reasonably a chievable to obtain optimal diagnostic quality images. DICOM format image data is available electro nically for review and comparison. FINDINGS: CEREBRUM: The ventricles are normal for age. No evidence of midline shift, mass lesion, hemorrhage or acute in farction. No extra-axial fluid collections are seen. POSTERIOR FOSSA: The cerebellum and brainstem are intact. The 4th ventricle is midline. The cerebellopontine angle i s unremarkable. EXTRACRANIAL: The visualized portion of the orbits is intact. SKULL: The calvaria is intact. No evidence of skull fracture. CONCLUSION: Negative for acute process. Gideon Cruz MD FACR on May 05, 2017 at 17:03 Board Certified Radiologist. This report was verified electronically.
--- NOTE | 2017-05-05 17:34 | RADRPT ---
EXAM DATE/TIME: 05/05/2017 16:58 [facility] COMPARISON: No previous studies available for comparison. INDICATIONS : Neck pain due to fall. RADIATION DOSE: 23.52 CTDIvol (mGy) MEDICAL HISTORY : Cardiovascular disease. Hypertension. SURGICAL HISTORY : Hysterectomy. ENCOUNTER: Initial ACUITY: 1 day PAIN SCALE: 9/10 LOCATION: Bilateral neck region. TECHNIQUE: Volumetric scanning of the cervical spine was performed. Multiplanar reconstructions in the sagittal, coronal and oblique axial planes were performed. Using automated exposure control and adjustment o f the mA and/or kV according to patient size, radiation dose was kept as low as reasonably achievable to obtain optimal diagnostic quality images. DICOM format image data is available electronically f or review and comparison. FINDINGS: Sagittal and coronal reconstructions show multilevel degenerative disc disease most prominent at C5-6 and C6-7 with loss of disc height and uncovertebral ridging predominantly directed anteriorly. Promi nent Schmorl's note the superior endplate of C7. Vertebral body heights are maintained without acute fracture. Spinal canal is widely patent. On the coronal images, there appears to be severe facet dege neration and fragmentation rightward at C2-3. Prominent arachnoid granulation within the occipital ismael ne midline. C2-C3: The bony spinal canal is normal in size. No evidence of disc bulge or herniation. The neural forami na are bilaterally patent. C3-C4: The bony spinal canal is normal in size. No evidence of disc bulge or herniation. The neural forami na are bilaterally patent. C4-C5: Right facet hypertrophy. Spinal canal and neural foramina remain patent C5-C6: Uncovertebral ridging with narrowing of the left neural foramina. This may compromise the left C6 ner ve root. Spinal canal and right neural foramina are patent. C6-C7: Facet enlargement of uncovertebral ridging encroaches on the left no formal. This could compromise th e left C7 nerve root. Canal and right neural foramina are adequate C7-T1: The bony spinal canal is normal in size. No evidence of disc bulge or herniation. The neural forami na are bilaterally patent. CONCLUSION: 1. Multilevel degenerative disc disease most prominent at C5-6 and C6-7 with loss of disc height and uncovertebral ridging. 2. Severe facet degeneration with bony fragmentation rightward CT 3. Facet hypertrophy leftward at C5 -6 and C6-7 encroaches on the neural foramen and could compromise the exiting left C6 and left C7 ner ve root. 3. Prominent arachnoid granulation in the occiput centrally. No fracture. Jerome Brady MD on May 05, 2017 at 17:17 Board Certified Radiologist. This report was verified electronically.
[2017-05-05 17:49] LABS: AUTOMATED NEUTROPHIL # 5.8 TH/MM3 (1.8-7.7); BASOPHIL # 0.1 TH/MM3 (0-0.2); BASOPHIL % 1.1 % (0.0-2.0); EOSINOPHIL # 0.2 TH/MM3 (0-0.4); EOSINOPHIL % 1.7 % (0.0-4.0); HEMATOCRIT 38.2 % (35.0-46.0); HEMOGLOBIN 12.4 GM/DL (11.6-15.3); LYMPH % 25.4 % (9.0-44.0); LYMPHOCYTE # 2.3 TH/MM3 (1.0-4.8); MEAN CELL VOLUME 85.9 FL (80.0-100.0); MEAN CORPUSCULAR HGB CONC 32.6 % (32.0-36.0); MEAN PLATELET VOLUME 6.4 FL (7.0-11.0); MONO % 9.5 % (0.0-8.0); MONOCYTE # 0.9 TH/MM3 (0-0.9); NEUT % 62.3 % (16.0-70.0); PLATELET COUNT 234 TH/MM3 (150-450); RED BLOOD COUNT 4.44 MIL/MM3 (4.00-5.30); RED CELL DISTRIBUTION WIDTH 14.5 % (11.6-17.2); WHITE BLOOD COUNT 9.3 TH/MM3 (4.0-11.0)
[2017-05-05 17:51] LABS: BILIRUBIN, URINE NEG (NEG); BLOOD, URINE NEG (NEG); GLUCOSE,URINE NEG (NEG); HYALINE CAST, URINE 6 /lpf (RARE); KETONE, URINE NEG (NEG); NITRITE,URINE NEG (NEG); PH, URINE 6.5 (5.0-8.5); SQUAMOUS EPITHELIAL CELL URINE <1 /hpf (0-5); URINE COLOR YELLOW (YELLW/STRAW); URINE LEUKOCYTE ESTERASE NEG (NEG)
[2017-05-05 17:51] LABS: PROTHROMBIN TIME - PATIENT 10.3 SEC (9.8-11.6)
[2017-05-05 17:56] LABS: BICARBONATE 30.2 MEQ/L (21.0-32.0); BLOOD UREA NITROGEN 26 MG/DL (7-18); CHLORIDE 105 MEQ/L (98-107); CREATININE 1.04 MG/DL (0.50-1.00); GLOMERULAR FILTRATION RATE 54 ML/MIN (>89); GLUCOSE,RANDOM 85 MG/DL (74-106); SODIUM (NA) 141 MEQ/L (136-145)
[2017-05-05 18:00] LABS: TROPONIN I LESS THAN 0.02 NG/ML (0.02-0.05)
[2017-05-05 18:24] VITALS: BP 142/84; PULSE 89; RESP 20; O2SAT 99
[2017-05-05 18:51] VITALS: BP_SYST 151; BP_SYST 155; BP_SYST 165; BP_DIAS 79; BP_DIAS 81; BP_DIAS 82; RESP 18
[2017-05-05] MEDS ORDERED: KETOROLAC TROMETHAMINE 30 MG/ML (IVP) VIAL IV PUSH ONE (19:15)
[2017-05-05] MEDS ORDERED: ROBA500T PO (19:46)
--- NOTE | 2017-05-06 23:59 | EKG ---
Date Performed: 05/05/2017 Time Performed: 16:27:31 PTAGE: 61 years EKG: Sinus rhythm NORMAL ECG PREVIOUS TRACING : 04/27/2017 02.50 Since the prior tracing, there has been no significant melton DOCTOR: Tom Shaver Interpretating Date/Time 05/06/2017 23:57:50
== END 2017-05-05 20:14 | disposition home or self-care (01) ==
LOC: NEDAMB 16:00 → NEPD 20:14
DX: R55 Syncope and collapse (principal); R07.81 Pleurodynia; M79.1 Myalgia; M50.322 Other cervical disc degeneration at C5-C6 level; M50.323 Other cervical disc degeneration at C6-C7 level; I25.10 Atherosclerotic heart disease of native coronary artery without angina pectoris; I10 Essential (primary) hypertension; F41.9 Anxiety disorder, unspecified; E11.9 Type 2 diabetes mellitus without complications
CPT/HCPCS: 70450; 71045; 72125; 80048; 81001; 82550; 83735; 84484; 85025; 85610; 85730; 93005; 96361; 96374; 99285; J1885; J7030

== ENCOUNTER 2017-05-08 14:57 | Emergency (ER) | payer MEDICARE, MEDICAID ==
[~2017-05-08 14:57] MED LIST changes: +ROBA500T PO
[2017-05-08 15:00] VITALS: BP 134/68; PULSE 93; RESP 14; TEMP 97.3; O2SAT 99
[2017-05-08] MEDS ORDERED: ONDANSETRON HCL 4 MG/2 ML VIAL IV PUSH ONE (16:45)
[2017-05-08] MEDS ORDERED: SODIUM CHLORID 0.9% 500 ML INJ 500 ML IV ONE (16:45)
[2017-05-08] MEDS ORDERED: MORPHINE SULFATE 2 MG/ML INJ IV PUSH ONE (16:45)
[2017-05-08] MEDS ORDERED: KETOROLAC TROMETHAMINE 30 MG/ML (IVP) VIAL IV PUSH ONE (16:45)
--- NOTE | 2017-05-08 16:55 | PD ---
HPI Chief Complaint: Medical Clearance Time Seen by Provider: 16:30 Travel History International Travel<30 days: No Contact w/Intl Traveler<30days: No Traveled to known affect area: No History of Present Illness HPI The patient is a 61-year-old female who presents to the emergency department for back pain that radiates into the epigastrium and down both sides of the abdomen. The patient states she's had this pain since she fell at the beginning of March, has been evaluated in the emergency department multiple times. The patient had a CT of her abdomen and pelvis as well as CT of her brain which were negative. She had multiple x-rays which are negative. She cannot recall the last time she followed up with her primary physician Dr. Ortiz. She is requesting pain medications upon arrival. She denies any specific new acute trauma. She does complain of mild nausea without any vomiting or diarrhea. Symptoms are moderate. There are no current alleviating factors. She notes intermittent headaches that she fell and struck her head, CT the brain was negative at that time. She does note her symptoms intermittently, denies any associated blurry vision. PFSH Past Medical History Hx Anticoagulant Therapy: Yes (ASA) Anxiety: Yes Depression: Yes Heart Rhythm Problems: No Cancer: No Cardiac Catheterization: No Cardiovascular Problems: Yes High Cholesterol: No Chest Pain: Yes Congestive Heart Failure: No COPD: No Developmental Delay: Yes Diabetes: No (HX OF) Diminished Hearing: No GERD: Yes Genitourinary: Yes (BLADDER INCONTINENCE, at times) Headaches: Yes Heparin Induced Thrombocytopen: No Hypertension: Yes Implanted Vascular Access Dvce: No Musculoskeletal: No Neurologic: No Psychiatric: Yes Reproductive: No Respiratory: No Immunizations Current: Yes Myocardial Infarction: No Renal Failure: Yes (renal insuffiency) Sleep Apnea: No Thyroid Disease: Yes Menopausal: Yes : 0 Para: 0 Miscarriage: 0 : 0 Dilation and Curettage (D&C): Yes Past Surgical History Abdominal Surgery: No Cardiac Surgery: No Coronary Artery Bypass Graft: No Ear Surgery: No Endocrine Surgery: No Eye Surgery: No Genitourinary Surgery: No Gynecologic Surgery: Yes (D & C) Hysterectomy: Yes Neurologic Surgery: No Oral Surgery: No Thoracic Surgery: No Other Surgery: Yes (THYROID SX) Social History Alcohol Use: No Tobacco Use: No Substance Use: No Allergies-Medications (Allergen,Severity, Reaction): Coded Allergies: No Known Allergies (Verified Adverse Reaction, Unknown, 04/27/17) Reported Meds & Prescriptions Reported Meds & Active Scripts Active Robaxin (Methocarbamol) 500 Mg Tab 500 Mg PO QID PRN Cipro (Ciprofloxacin HCl) 500 Mg Tab 500 Mg PO BID 7 Days Tramadol (Tramadol HCl) 50 Mg Tab 50 Mg PO Q8H PRN Levothyroxine (Levothyroxine Sodium) 175 Mcg Tab 175 Mcg PO DAILY Aspirin 325 Mg Tab 325 Mg PO DAILY Skelaxin (Metaxalone) 800 Mg Tablet 1 Tab PO TID Lisinopril 5 Mg Tab 5 Mg PO DAILY Zantac (Ranitidine HCl) 150 Mg Tab 150 Mg PO BID Reported [place] 3 1000 mg ([place]-3 Fatty Acids) 1 Cap Cap Ocuvite (Multiple Vitamins W/ Minerals) 1 Tab 1 Tab PO DAILY Imipramine Pamoate 75 Mg Cap 75 Mg PO DAILY Calcium 600+D Plus Minerals (Calcium Carbonate-Vitamin D W/Minerals) 600-400 Mg- Unit Tab 1 Tab PO DAILY Review of Systems Except as stated in HPI: all other systems reviewed are Neg General / Constitutional: No: Fever Eyes: No: Blurred Vision HENT: Positive: Headaches, Lightheadedness Cardiovascular: No: Chest Pain or Discomfort Respiratory: No: Shortness of Breath Gastrointestinal: Positive: Nausea, Abdominal Pain, No: Vomiting, Diarrhea Genitourinary: No: Dysuria Musculoskeletal: Positive: Pain Neurologic: No: Paresthesia, Sensory Disturbance Physical Exam Narrative GENERAL: Awake, alert, 61-year-old female who appears her stated age and is in no acute respiratory distress. SKIN: Focused skin assessment warm/dry. HEAD: Atraumatic. Normocephalic. EYES: No injection or drainage. ENT: No nasal bleeding or discharge. Mucous membranes pink and moist. NECK: Trachea midline. No JVD. CARDIOVASCULAR: Regular rate and rhythm. No murmur appreciated. RESPIRATORY: No accessory muscle use. Clear to auscultation. Breath sounds equal bilaterally. GASTROINTESTINAL: Abdomen soft, non-tender, minimal left lower quadrant tenderness. No guarding or rigidity. Back: Mid tenderness over the midthoracic area but no obvious step-off. MUSCULOSKELETAL: No obvious deformities. No clubbing. No cyanosis. No edema. NEUROLOGICAL: Awake and alert. No obvious cranial nerve deficits. Motor grossly within normal limits. Normal speech. PSYCHIATRIC: Appropriate mood and affect; insight and judgment normal. Data Data Last Documented VS Vital Signs Date Time Temp Pulse Resp B/P (MAP) Pulse Ox O2 Delivery O2 Flow Rate FiO2 05/08/17 15:00 97.3 93 14 134/68 (90) 99 Orders Orders Electrocardiogram (05/08/17 15:10) Basic Metabolic Panel (Bmp) (05/08/17 15:10) Complete Blood Count With Diff (05/08/17 15:10) Urinalysis - C+S If Indicated (05/08/17 15:10) Spine, Thoracic - Lateral Only (05/08/17 ) Spine, Lumbar - Ltd (Ap & Lat) (05/08/17 ) Ketorolac Inj (Toradol Inj) (05/08/17 16:45) Morphine Inj (Morphine Inj) (05/08/17 16:45) Ondansetron Inj (Zofran Inj) (05/08/17 16:45) Sodium Chlorid 0.9% 500 Ml Inj (Ns 500 M (05/08/17 16:45) Urine Culture (05/08/17 16:09) Ed Discharge Order (05/08/17 18:06) Labs Laboratory Tests Test 05/08/17 16:09 05/08/17 16:36 Urine Color YELLOW Urine Turbidity CLEAR Urine pH 5.5 Urine Specific [place] 1.023 Urine Protein NEG mg/dL Urine Glucose (UA) NEG mg/dL Urine Ketones NEG mg/dL Urine Occult Blood NEG Urine Nitrite NEG Urine Bilirubin NEG Urine Urobilinogen LESS THAN 2.0 MG/DL Urine Leukocyte Esterase LARGE Urine RBC LESS THAN 1 /hpf Urine WBC 2 /hpf Urine Squamous Epithelial Cells 2 /hpf Urine Transitional Epithelial Cells <1 /hpf Urine Bacteria MOD /hpf Urine Mucus FEW /lpf Microscopic Urinalysis Comment CULTURE INDICATED White Blood Count 7.8 TH/MM3 Red Blood Count 4.43 MIL/MM3 Hemoglobin 12.4 GM/DL Hematocrit 38.1 % Mean Corpuscular Volume 86.1 FL Mean Corpuscular Hemoglobin 28.1 PG Mean Corpuscular Hemoglobin Concent 32.6 % Red Cell Distribution Width 14.3 % Platelet Count 234 TH/MM3 Mean Platelet Volume 6.4 FL Neutrophils (%) (Auto) 57.5 % Lymphocytes (%) (Auto) 28.5 % Monocytes (%) (Auto) 11.0 % Eosinophils (%) (Auto) 1.9 % Basophils (%) (Auto) 1.1 % Neutrophils # (Auto) 4.5 TH/MM3 Lymphocytes # (Auto) 2.2 TH/MM3 Monocytes # (Auto) 0.9 TH/MM3 Eosinophils # (Auto) 0.1 TH/MM3 Basophils # (Auto) 0.1 TH/MM3 CBC Comment DIFF FINAL Differential Comment Blood Urea Nitrogen 29 MG/DL Creatinine 0.96 MG/DL Random Glucose 94 MG/DL Calcium Level 9.8 MG/DL Sodium Level 142 MEQ/L Potassium Level 4.4 MEQ/L Chloride Level 108 MEQ/L Carbon Dioxide Level 27.1 MEQ/L Anion Gap 7 MEQ/L Estimat Glomerular Filtration Rate 59 ML/MIN MDM Medical Decision Making Medical Screen Exam Complete: Yes Emergency Medical Condition: Yes Medical Record Reviewed: Yes Interpretation(s) EKG reveals normal sinus rhythm with a rate of 86. No ischemic changes noted. Differential Diagnosis Differential diagnosis includes thoracic compression fracture, musculoskeletal pain, malingering, drug-seeking behavior, UTI, pancreatitis. Narrative Course Labs were drawn initially in triage. The patient was administered Toradol, morphine, and Zofran with IV fluids. X-ray of the thoracic spine and lumbar spinal ordered. I reviewed the EMR, the patient's previous CT the brain and abdomen pelvis in the last 2 much were both negative. Patient is nonfocal on exam. She has multiple visits for UTIs and pain, she needs follow-up with her primary physician, Dr. Lamar Ortiz. The patient was signed out to Dr. Baldwin at 5 PM. Condition: Stable Errol Wolf MD May 08, 2017 16:55
[2017-05-08 16:59] LABS: BACTERIA, URINE MOD /hpf; BILIRUBIN, URINE NEG (NEG); BLOOD, URINE NEG (NEG); GLUCOSE,URINE NEG (NEG); KETONE, URINE NEG (NEG); MUCUS URINE FEW /lpf (OCC); NITRITE,URINE NEG (NEG); PH, URINE 5.5 (5.0-8.5); SQUAMOUS EPITHELIAL CELL URINE 2 /hpf (0-5); TRANSITIONAL EPI CELLS, URINE <1 /hpf; URINE COLOR YELLOW (YELLW/STRAW); URINE LEUKOCYTE ESTERASE LARGE (NEG)
[2017-05-08 17:08] LABS: AUTOMATED NEUTROPHIL # 4.5 TH/MM3 (1.8-7.7); BASOPHIL # 0.1 TH/MM3 (0-0.2); BASOPHIL % 1.1 % (0.0-2.0); EOSINOPHIL # 0.1 TH/MM3 (0-0.4); EOSINOPHIL % 1.9 % (0.0-4.0); HEMATOCRIT 38.1 % (35.0-46.0); HEMOGLOBIN 12.4 GM/DL (11.6-15.3); LYMPH % 28.5 % (9.0-44.0); LYMPHOCYTE # 2.2 TH/MM3 (1.0-4.8); MEAN CELL VOLUME 86.1 FL (80.0-100.0); MEAN CORPUSCULAR HEMOGLOBIN 28.1 PG (27.0-34.0); MEAN CORPUSCULAR HGB CONC 32.6 % (32.0-36.0); MEAN PLATELET VOLUME 6.4 FL (7.0-11.0); MONOCYTE # 0.9 TH/MM3 (0-0.9); NEUT % 57.5 % (16.0-70.0); PLATELET COUNT 234 TH/MM3 (150-450); RED BLOOD COUNT 4.43 MIL/MM3 (4.00-5.30); RED CELL DISTRIBUTION WIDTH 14.3 % (11.6-17.2); WHITE BLOOD COUNT 7.8 TH/MM3 (4.0-11.0)
[2017-05-08 17:16] LABS: BICARBONATE 27.1 MEQ/L (21.0-32.0); CALCIUM 9.8 MG/DL (8.5-10.1); CREATININE 0.96 MG/DL (0.50-1.00)
--- NOTE | 2017-05-08 17:39 | RADRPT ---
EXAM DATE/TIME: 05/08/2017 17:00 [facility] COMPARISON: SPINE LUMBAR LTD (AP & LAT), January 17, 2017, 20:27. INDICATIONS : Lower back pain after fall. MEDICAL HISTORY : None. SURGICAL HISTORY : None. ENCOUNTER: Initial ACUITY: 3 days PAIN SCORE: 10/10 LOCATION: lower back. FINDINGS: Two view examination was performed. There are five non-rib bearing vertebral bodies. Mild levoscolio sis of the thoracolumbar spine. Stable degenerative disc disease most prominent at L2-3 and L4-5 with some loss of disc height. Grade 1 retrolisthesis of L2 on 3 urinalyses of L4 on 5. Vertebral body he ights are maintained without fracture. Surgical clips in the right upper abdominal quadrant are terra acteristic of a prior cholecystectomy. CONCLUSION: 1. Stable chronic degenerative disc disease most prominent L2-3 and L4-5 with some loss of disc heigh t a grade 1 retrolisthesis L2 on 3 and grade 1 anterolisthesis of L4 on 5. 2. No acute fracture or traumatic listhesis. Jerome Brady MD on May 08, 2017 at 17:34 Board Certified Radiologist. This report was verified electronically.
--- NOTE | 2017-05-08 17:43 | RADRPT ---
EXAM DATE/TIME: 05/08/2017 17:12 [facility] COMPARISON: No previous studies available for comparison. INDICATIONS : Back pain after fall. MEDICAL HISTORY : None. SURGICAL HISTORY : None. ENCOUNTER: Initial ACUITY: 3 days PAIN SCORE: 10/10 LOCATION: middle back. FINDINGS: A single lateral view of the thoracic spine was performed. There is normal alignment of the thoracic vertebral bodies. Vertebral body height is maintained. No evidence of fracture or subluxation. CONCLUSION: Negative, MRI would be more sensitive for acute compression.. Gideon Cruz MD FACR on May 08, 2017 at 17:40 Board Certified Radiologist. This report was verified electronically.
--- NOTE | 2017-05-08 18:01 | PD ---
Physical Exam Narrative Patient was seen by the ED physician and signed out to me. Data Data Last Documented VS Vital Signs Date Time Temp Pulse Resp B/P (MAP) Pulse Ox O2 Delivery O2 Flow Rate FiO2 05/08/17 15:00 97.3 93 14 134/68 (90) 99 Orders Orders Electrocardiogram (05/08/17 15:10) Basic Metabolic Panel (Bmp) (05/08/17 15:10) Complete Blood Count With Diff (05/08/17 15:10) Urinalysis - C+S If Indicated (05/08/17 15:10) Lipase (05/08/17 16:41) Spine, Thoracic - Lateral Only (05/08/17 ) Spine, Lumbar - Ltd (Ap & Lat) (05/08/17 ) Ketorolac Inj (Toradol Inj) (05/08/17 16:45) Morphine Inj (Morphine Inj) (05/08/17 16:45) Ondansetron Inj (Zofran Inj) (05/08/17 16:45) Sodium Chlorid 0.9% 500 Ml Inj (Ns 500 M (05/08/17 16:45) Urine Culture (05/08/17 16:09) Ed Discharge Order (05/08/17 18:06) Labs Laboratory Tests Test 05/08/17 16:09 05/08/17 16:36 Urine Color YELLOW Urine Turbidity CLEAR Urine pH 5.5 Urine Specific [place] 1.023 Urine Protein NEG mg/dL Urine Glucose (UA) NEG mg/dL Urine Ketones NEG mg/dL Urine Occult Blood NEG Urine Nitrite NEG Urine Bilirubin NEG Urine Urobilinogen LESS THAN 2.0 MG/DL Urine Leukocyte Esterase LARGE Urine RBC LESS THAN 1 /hpf Urine WBC 2 /hpf Urine Squamous Epithelial Cells 2 /hpf Urine Transitional Epithelial Cells <1 /hpf Urine Bacteria MOD /hpf Urine Mucus FEW /lpf Microscopic Urinalysis Comment CULTURE INDICATED White Blood Count 7.8 TH/MM3 Red Blood Count 4.43 MIL/MM3 Hemoglobin 12.4 GM/DL Hematocrit 38.1 % Mean Corpuscular Volume 86.1 FL Mean Corpuscular Hemoglobin 28.1 PG Mean Corpuscular Hemoglobin Concent 32.6 % Red Cell Distribution Width 14.3 % Platelet Count 234 TH/MM3 Mean Platelet Volume 6.4 FL Neutrophils (%) (Auto) 57.5 % Lymphocytes (%) (Auto) 28.5 % Monocytes (%) (Auto) 11.0 % Eosinophils (%) (Auto) 1.9 % Basophils (%) (Auto) 1.1 % Neutrophils # (Auto) 4.5 TH/MM3 Lymphocytes # (Auto) 2.2 TH/MM3 Monocytes # (Auto) 0.9 TH/MM3 Eosinophils # (Auto) 0.1 TH/MM3 Basophils # (Auto) 0.1 TH/MM3 CBC Comment DIFF FINAL Differential Comment Blood Urea Nitrogen 29 MG/DL Creatinine 0.96 MG/DL Random Glucose 94 MG/DL Calcium Level 9.8 MG/DL Sodium Level 142 MEQ/L Potassium Level 4.4 MEQ/L Chloride Level 108 MEQ/L Carbon Dioxide Level 27.1 MEQ/L Anion Gap 7 MEQ/L Estimat Glomerular Filtration Rate 59 ML/MIN MDM Supervised Visit with DAVID: No Interpretation(s) X-ray of thoracic and lumbar spine shows no acute process. CBC within normal limits. BUN 29. Creatinine 0.96. UA is negative. Diagnosis Primary Impression: Exacerbation of chronic back pain Patient Instructions: General Instructions Additional Instruction: Continue with medications as directed. Follow-up with personal physician. Return if worse. Med/Other Pt SpecificInfo: No Change to Meds Disposition: 01 DISCHARGE HOME Condition: Stable Garrick Baldwin MD May 08, 2017 18:01
--- NOTE | 2017-05-09 19:23 | EKG ---
Date Performed: 05/08/2017 Time Performed: 16:08:12 PTAGE: 61 years EKG: Sinus rhythm EARLY REPOLARIZATION BORDERLINE ECG Since the prior tracing, there has been no significant change PREVIOUS TRACING : 05/05/2017 16.27 DOCTOR: Vamsi Ramírez Interpretating Date/Time 05/09/2017 19:22:50
== END 2017-05-08 18:40 | disposition home or self-care (01) ==
LOC: NEPD 14:57
DX: G89.29 Other chronic pain (principal); M54.9 Dorsalgia, unspecified; I10 Essential (primary) hypertension; F32.9 Major depressive disorder, single episode, unspecified; F41.9 Anxiety disorder, unspecified; K21.9 Gastro-esophageal reflux disease without esophagitis; W19.XXXD Unspecified fall, subsequent encounter; Z79.82 Long term (current) use of aspirin; Z79.899 Other long term (current) drug therapy
CPT/HCPCS: 72020; 72100; 80048; 81001; 85025; 87086; 93005; 96374; 96375; 99285; J1885; J2270; J2405; J7040

== ENCOUNTER 2017-06-15 02:04 | Emergency (ER) | payer MEDICARE, MEDICAID ==
[~2017-06-15] VITALS: Ht 162.6 cm; Wt 72.0 kg
[2017-06-15 02:16] VITALS: BP 120/68; PULSE 93; RESP 16; TEMP 97.4; O2SAT 99
--- NOTE | 2017-06-15 03:25 | PD ---
HPI Chief Complaint: Cold / Flu Symptoms Time Seen by Provider: 03:11 Travel History International Travel<30 days: No Contact w/Intl Traveler<30days: No Traveled to known affect area: No History of Present Illness HPI 62-year-old white female presents emergency department with a 2 week history of lower abdominal discomfort. She stated this more on the left than the right. She also goes on to state that she has had a cold as well. This has consisted of runny nose, cough, congestion and general malaise. She has had some subjective fever and chills. Intermittent nausea and vomiting at times. She denies any diarrhea. She does have some increased urinary frequency and some slight dysuria. No vaginal discharge or hematuria. Patient has had lower abdominal pain intermittently for some time. It is noted in the medical record on her last visit last month of abdominal discomfort which was she was evaluated for she has had a CAT scan of the abdomen just recently which was negative. PFSH Past Medical History Hx Anticoagulant Therapy: Yes (ASA) Anxiety: Yes Depression: Yes Heart Rhythm Problems: No Cancer: No Cardiac Catheterization: No Cardiovascular Problems: Yes High Cholesterol: No Chest Pain: Yes Congestive Heart Failure: No COPD: No Developmental Delay: Yes Diminished Hearing: No GERD: Yes Genitourinary: Yes (BLADDER INCONTINENCE, at times) Headaches: Yes Heparin Induced Thrombocytopen: No Hypertension: Yes Implanted Vascular Access Dvce: No Musculoskeletal: No Neurologic: No Psychiatric: Yes Reproductive: No Respiratory: No Immunizations Current: Yes Myocardial Infarction: No Renal Failure: Yes (renal insuffiency) Sleep Apnea: No Thyroid Disease: Yes Tetanus Vaccination: Unknown Influenza Vaccination: Yes Menopausal: Yes : 0 Para: 0 Miscarriage: 0 : 0 Dilation and Curettage (D&C): Yes Past Surgical History Abdominal Surgery: No Cardiac Surgery: No Coronary Artery Bypass Graft: No Ear Surgery: No Endocrine Surgery: No Eye Surgery: No Genitourinary Surgery: No Gynecologic Surgery: Yes (D & C) Hysterectomy: Yes Neurologic Surgery: No Oral Surgery: No Thoracic Surgery: No Other Surgery: Yes (THYROID SX) Family History Family Myocardial Infarction: No Social History Alcohol Use: No Tobacco Use: No Substance Use: No Allergies-Medications (Allergen,Severity, Reaction): Coded Allergies: No Known Allergies (Verified Adverse Reaction, Unknown, 06/15/17) Reported Meds & Prescriptions Reported Meds & Active Scripts Active Keflex (Cephalexin) 500 Mg Capsule 500 Mg PO Q8H 7 Days Zofran Odt (Ondansetron Odt) 4 Mg Tab 4 Mg SL Q6HR PRN Robaxin (Methocarbamol) 500 Mg Tab 500 Mg PO QID PRN Cipro (Ciprofloxacin HCl) 500 Mg Tab 500 Mg PO BID 7 Days Tramadol (Tramadol HCl) 50 Mg Tab 50 Mg PO Q8H PRN Levothyroxine (Levothyroxine Sodium) 175 Mcg Tab 175 Mcg PO DAILY Aspirin 325 Mg Tab 325 Mg PO DAILY Skelaxin (Metaxalone) 800 Mg Tablet 1 Tab PO TID Lisinopril 5 Mg Tab 5 Mg PO DAILY Zantac (Ranitidine HCl) 150 Mg Tab 150 Mg PO BID Reported [place] 3 1000 mg ([place]-3 Fatty Acids) 1 Cap Cap Ocuvite (Multiple Vitamins W/ Minerals) 1 Tab 1 Tab PO DAILY Imipramine Pamoate 75 Mg Cap 75 Mg PO DAILY Calcium 600+D Plus Minerals (Calcium Carbonate-Vitamin D W/Minerals) 600-400 Mg- Unit Tab 1 Tab PO DAILY Review of Systems Except as stated in HPI: all other systems reviewed are Neg Physical Exam Narrative GENERAL: Well-developed, well-nourished in no apparent distress. Nontoxic appearing. HEAD: Normocephalic, atraumatic. EYES: Pupils equal round and reactive. Extraocular motions intact. No scleral icterus. No injection or drainage. ENT: Nose clear. Throat without erythema, tonsillar hypertrophy or exudate. Uvula midline. Airway patent. NECK: Trachea midline. Supple, nontender, moves head freely. No central bony tenderness or spasm. CARDIOVASCULAR: Regular rate and rhythm without murmurs, gallops, or rubs. RESPIRATORY: Clear to auscultation. Breath sounds equal bilaterally. No wheezes , rales, or rhonchi. GASTROINTESTINAL: Abdomen soft, non-tender, nondistended. No hepato-splenomegaly , or palpable masses. No guarding. EXTREMITIES: No clubbing, cyanosis, or edema. No joint tenderness. BACK: Nontender without deformity. No flank tenderness. NEUROLOGICAL: Awake, alert and oriented x 3 .Cranial nerves grossly intact. Motor and sensory grossly within normal limits. Normal speech. Data Data Last Documented VS Vital Signs Date Time Temp Pulse Resp B/P (MAP) Pulse Ox O2 Delivery O2 Flow Rate FiO2 3/22/18 02:16 97.4 93 16 120/68 (85) 99 Orders Orders Complete Blood Count With Diff (06/15/17 03:31) Comprehensive Metabolic Panel (06/15/17 03:31) Lipase (06/15/17 03:31) Urinalysis - C+S If Indicated (06/15/17 03:31) Iv Access Insert/Monitor (06/15/17 03:31) Urine Culture (06/15/17 03:40) Cephalexin (Keflex) (06/15/17 04:30) Ondansetron Odt (Zofran Odt) (06/15/17 04:30) Ed Discharge Order (06/15/17 04:57) Labs Laboratory Tests Test 06/15/17 03:40 06/15/17 03:45 Urine Color YELLOW Urine Turbidity HAZY Urine pH 5.5 Urine Specific [place] 1.028 Urine Protein TRACE mg/dL Urine Glucose (UA) NEG mg/dL Urine Ketones NEG mg/dL Urine Occult Blood NEG Urine Nitrite NEG Urine Bilirubin NEG Urine Urobilinogen 2.0 MG/DL Urine Leukocyte Esterase LARGE Urine RBC 8 /hpf Urine WBC 33 /hpf Urine Squamous Epithelial Cells 2 /hpf Urine Bacteria OCC /hpf Urine Hyaline Casts 15 /lpf Urine Granular Casts 16 /lpf Urine Mucus FEW /lpf Microscopic Urinalysis Comment CULTURE INDICATED White Blood Count 10.2 TH/MM3 Red Blood Count 4.00 MIL/MM3 Hemoglobin 11.1 GM/DL Hematocrit 33.4 % Mean Corpuscular Volume 83.6 FL Mean Corpuscular Hemoglobin 27.7 PG Mean Corpuscular Hemoglobin Concent 33.2 % Red Cell Distribution Width 15.1 % Platelet Count 339 TH/MM3 Mean Platelet Volume 5.9 FL Neutrophils (%) (Auto) 64.2 % Lymphocytes (%) (Auto) 22.5 % Monocytes (%) (Auto) 10.7 % Eosinophils (%) (Auto) 1.8 % Basophils (%) (Auto) 0.8 % Neutrophils # (Auto) 6.5 TH/MM3 Lymphocytes # (Auto) 2.3 TH/MM3 Monocytes # (Auto) 1.1 TH/MM3 Eosinophils # (Auto) 0.2 TH/MM3 Basophils # (Auto) 0.1 TH/MM3 CBC Comment DIFF FINAL Differential Comment Blood Urea Nitrogen 29 MG/DL Creatinine 1.12 MG/DL Random Glucose 96 MG/DL Total Protein 6.8 GM/DL Albumin 3.3 GM/DL Calcium Level 9.6 MG/DL Alkaline Phosphatase 86 U/L Aspartate Amino Transf (AST/SGOT) 41 U/L Alanine Aminotransferase (ALT/SGPT) 19 U/L Total Bilirubin 0.4 MG/DL Sodium Level 143 MEQ/L Potassium Level 4.9 MEQ/L Chloride Level 108 MEQ/L Carbon Dioxide Level 28.0 MEQ/L Anion Gap 7 MEQ/L Estimat Glomerular Filtration Rate 49 ML/MIN Lipase 158 U/L [facility] Medical Decision Making Medical Screen Exam Complete: Yes Emergency Medical Condition: Yes Medical Record Reviewed: Yes Interpretation(s) Laboratory Tests Test 06/15/17 03:40 06/15/17 03:45 Urine Color YELLOW Urine Turbidity HAZY Urine pH 5.5 Urine Specific [place] 1.028 Urine Protein TRACE mg/dL Urine Glucose (UA) NEG mg/dL Urine Ketones NEG mg/dL Urine Occult Blood NEG Urine Nitrite NEG Urine Bilirubin NEG Urine Urobilinogen 2.0 MG/DL Urine Leukocyte Esterase LARGE Urine RBC 8 /hpf Urine WBC 33 /hpf Urine Squamous Epithelial Cells 2 /hpf Urine Bacteria OCC /hpf Urine Hyaline Casts 15 /lpf Urine Granular Casts 16 /lpf Urine Mucus FEW /lpf Microscopic Urinalysis Comment CULTURE INDICATED White Blood Count 10.2 TH/MM3 Red Blood Count 4.00 MIL/MM3 Hemoglobin 11.1 GM/DL Hematocrit 33.4 % Mean Corpuscular Volume 83.6 FL Mean Corpuscular Hemoglobin 27.7 PG Mean Corpuscular Hemoglobin Concent 33.2 % Red Cell Distribution Width 15.1 % Platelet Count 339 TH/MM3 Mean Platelet Volume 5.9 FL Neutrophils (%) (Auto) 64.2 % Lymphocytes (%) (Auto) 22.5 % Monocytes (%) (Auto) 10.7 % Eosinophils (%) (Auto) 1.8 % Basophils (%) (Auto) 0.8 % Neutrophils # (Auto) 6.5 TH/MM3 Lymphocytes # (Auto) 2.3 TH/MM3 Monocytes # (Auto) 1.1 TH/MM3 Eosinophils # (Auto) 0.2 TH/MM3 Basophils # (Auto) 0.1 TH/MM3 CBC Comment DIFF FINAL Differential Comment Blood Urea Nitrogen 29 MG/DL Creatinine 1.12 MG/DL Random Glucose 96 MG/DL Total Protein 6.8 GM/DL Albumin 3.3 GM/DL Calcium Level 9.6 MG/DL Alkaline Phosphatase 86 U/L Aspartate Amino Transf (AST/SGOT) 41 U/L Alanine Aminotransferase (ALT/SGPT) 19 U/L Total Bilirubin 0.4 MG/DL Sodium Level 143 MEQ/L Potassium Level 4.9 MEQ/L Chloride Level 108 MEQ/L Carbon Dioxide Level 28.0 MEQ/L Anion Gap 7 MEQ/L Estimat Glomerular Filtration Rate 49 ML/MIN Lipase 158 U/L Differential Diagnosis Differential diagnosis: Cholecystitis, pancreatitis, diverticulitis, UTI, pyelonephritis Narrative Course Patient laboratory tests revealed a urinary tract infection. Patient was given Keflex 1 g p.o. and Zofran 4 mg p.o. Patient has had a p.o. fluid challenge which she has passed. She has not been vomiting. This is UTI Diagnosis Primary Impression: UTI Patient Instructions: General Instructions Additional Instructions: Rest. Increase fluids. Keflex and Zofran. Follow-up with a primary care doctor in one week. Return to the ER for any problems. Med/Other Pt SpecificInfo: Prescription(s) given Scripts Cephalexin (Keflex) 500 Mg Capsule 500 MG PO Q8H for Infection for 7 Days, #21 CAP 0 Refills Prov: Ly Mueller MD 06/15/17 Ondansetron Odt (Zofran Odt) 4 Mg Tab 4 MG SL Q6HR Y for Nausea/Vomiting, #10 TAB 0 Refills Prov: Ly Mueller MD 06/15/17 Disposition: 01 DISCHARGE HOME Condition: Stable [place] Jun 15, 2017 03:25
[2017-06-15 04:06] LABS: AUTOMATED NEUTROPHIL # 6.5 TH/MM3 (1.8-7.7); BASOPHIL # 0.1 TH/MM3 (0-0.2); BASOPHIL % 0.8 % (0.0-2.0); EOSINOPHIL # 0.2 TH/MM3 (0-0.4); EOSINOPHIL % 1.8 % (0.0-4.0); HEMATOCRIT 33.4 % (35.0-46.0); HEMOGLOBIN 11.1 GM/DL (11.6-15.3); LYMPH % 22.5 % (9.0-44.0); LYMPHOCYTE # 2.3 TH/MM3 (1.0-4.8); MEAN CELL VOLUME 83.6 FL (80.0-100.0); MEAN CORPUSCULAR HEMOGLOBIN 27.7 PG (27.0-34.0); MEAN CORPUSCULAR HGB CONC 33.2 % (32.0-36.0); MEAN PLATELET VOLUME 5.9 FL (7.0-11.0); MONO % 10.7 % (0.0-8.0); MONOCYTE # 1.1 TH/MM3 (0-0.9); NEUT % 64.2 % (16.0-70.0); PLATELET COUNT 339 TH/MM3 (150-450); RED CELL DISTRIBUTION WIDTH 15.1 % (11.6-17.2); WHITE BLOOD COUNT 10.2 TH/MM3 (4.0-11.0)
[2017-06-15 04:20] LABS: BACTERIA, URINE OCC /hpf; BILIRUBIN, URINE NEG (NEG); BLOOD, URINE NEG (NEG); GLUCOSE,URINE NEG (NEG); HYALINE CAST, URINE 15 /lpf (RARE); KETONE, URINE NEG (NEG); MUCUS URINE FEW /lpf (OCC); NITRITE,URINE NEG (NEG); PH, URINE 5.5 (5.0-8.5); SQUAMOUS EPITHELIAL CELL URINE 2 /hpf (0-5); URINE COLOR YELLOW (YELLW/STRAW); URINE LEUKOCYTE ESTERASE LARGE (NEG)
[2017-06-15] MEDS ORDERED: ONDANSETRON ODT 4 MG TAB PO ONE (04:30)
[2017-06-15] MEDS ORDERED: CEPHALEXIN MONOHYDRATE 500 MG CAP PO ONE (04:30)
[2017-06-15 04:32] LABS: ALKALINE PHOSPHATASE 86 U/L (45-117); TOTAL BILIRUBIN ADULT 0.4 MG/DL (0.2-1.0); TOTAL PROTEIN 6.8 GM/DL (6.4-8.2)
[2017-06-15 04:34] LABS: ALBUMIN 3.3 GM/DL (3.4-5.0); ALT (GPT) 19 U/L (10-53); AST (GOT) 41 U/L (15-37); BLOOD UREA NITROGEN 29 MG/DL (7-18); CALCIUM 9.6 MG/DL (8.5-10.1); CHLORIDE 108 MEQ/L (98-107); CREATININE 1.12 MG/DL (0.50-1.00); GLOMERULAR FILTRATION RATE 49 ML/MIN (>89); GLUCOSE,RANDOM 96 MG/DL (74-106); SODIUM (NA) 143 MEQ/L (136-145)
[2017-06-15] MEDS ORDERED: ZOFR4TAB3 SL (04:57)
[2017-06-15] MEDS ORDERED: CEPH-460 PO (04:57)
== END 2017-06-15 05:26 | disposition home or self-care (01) ==
LOC: NEPD 02:04
DX: N39.0 Urinary tract infection, site not specified (principal); R05 Cough
CPT/HCPCS: 80053; 81001; 83690; 85025; 87077; 87086; 87186; 99283

== ENCOUNTER 2017-07-22 12:30 | Inpatient (IN) | payer MEDICARE, OTHER ==
[~2017-07-22] VITALS: Ht 165.1 cm; Wt 58.5 kg
[2017-07-22] VITALS (11 sets, daily range): BP systolic 77–97; BP diastolic 48–57; PULSE 96–111; RESP 18–24; TEMP 97.8–98.7; O2SAT 98–100
[~2017-07-22 12:30] MED LIST changes: +CEPH-460 PO; +ZOFR4TAB3 SL
--- NOTE | 2017-07-22 12:59 | PD ---
Data Data Last Documented VS Vital Signs Date Time Temp Pulse Resp B/P (MAP) Pulse Ox O2 Delivery O2 Flow Rate FiO2 07/22/17 14:45 102 20 93/52 (66) 98 Room Air 07/22/17 12:37 98.7 Orders Orders Electrocardiogram (07/22/17 12:48) Complete Blood Count With Diff (07/22/17 12:48) Comprehensive Metabolic Panel (07/22/17 12:48) Ckmb (Isoenzyme) Profile (07/22/17 12:48) Troponin I (07/22/17 12:48) Prothrombin Time / Inr (Pt) (07/22/17 12:48) Act Partial Throm Time (Ptt) (07/22/17 12:48) Blood Culture (07/22/17 12:48) Lipase (07/22/17 12:48) Urinalysis - C+S If Indicated (07/22/17 12:48) Thyroid Stimulating Hormone (07/22/17 12:48) Iv Access Insert/Monitor (07/22/17 12:48) Ecg Monitoring (07/22/17 12:48) Oximetry (07/22/17 12:48) Type And Screen (07/22/17 12:48) Sodium Chloride 0.9% Flush (Ns Flush) (07/22/17 13:00) Ct Brain W/O Iv Contrast(Rout) (07/22/17 12:53) Chest, Single Ap (07/22/17 12:53) Sodium Chlor 0.9% 1000 Ml Inj (Ns 1000 M (07/22/17 13:00) Ct Abd/Pel W/O Iv Contrast (07/22/17 ) Ct Thorax/ Chest Wo Iv Contras (07/22/17 ) Sodium Chlor 0.9% 1000 Ml Inj (Ns 1000 M (07/22/17 13:15) Lactic Acid Sepsis Protocol (07/22/17 13:05) Ondansetron Inj (Zofran Inj) (07/22/17 13:45) Cath For Specimen (07/22/17 14:09) Sepsis Workup Initiated (07/22/17 ) Piperacil-Tazo 4.5 Gm Premix (Zosyn 4.5 (07/22/17 14:30) Vancomycin Inj (Vancomycin Inj) (07/22/17 14:30) Admit Order (Ed Use Only) (07/22/17 15:17) Labs Laboratory Tests Test 07/22/17 12:55 07/22/17 14:05 White Blood Count 27.2 TH/MM3 Red Blood Count 4.03 MIL/MM3 Hemoglobin 11.0 GM/DL Hematocrit 34.6 % Mean Corpuscular Volume 86.0 FL Mean Corpuscular Hemoglobin 27.2 PG Mean Corpuscular Hemoglobin Concent 31.6 % Red Cell Distribution Width 14.8 % Platelet Count 285 TH/MM3 Mean Platelet Volume 6.5 FL CBC Comment AUTO DIFF Differential Total Cells Counted 100 Neutrophils % (Manual) 78 % Band Neutrophils % 17 % Lymphocytes % 2 % Monocytes % 3 % Neutrophils # (Manual) 25.8 TH/MM3 Differential Comment FINAL DIFF MANUAL Toxic Vacuolation PRESENT Platelet Estimate NORMAL Platelet Morphology Comment NORMAL Tear Drop Cells 1+ [place] Cells 2+ Prothrombin Time 14.1 SEC Prothromb Time International Ratio 1.4 RATIO Activated Partial Thromboplast Time 29.4 SEC Blood Urea Nitrogen 64 MG/DL Creatinine 3.58 MG/DL Random Glucose 99 MG/DL Total Protein 6.2 GM/DL Albumin 2.7 GM/DL Calcium Level 9.9 MG/DL Alkaline Phosphatase 132 U/L Aspartate Amino Transf (AST/SGOT) 9 U/L Alanine Aminotransferase (ALT/SGPT) 12 U/L Total Bilirubin 0.7 MG/DL Sodium Level 137 MEQ/L Potassium Level 5.4 MEQ/L Chloride Level 104 MEQ/L Carbon Dioxide Level 17.9 MEQ/L Anion Gap 15 MEQ/L Estimat Glomerular Filtration Rate 13 ML/MIN Lactic Acid Level 5.1 mmol/L Total Creatine Kinase 33 U/L Troponin I LESS THAN 0.02 NG/ML Lipase 30 U/L Thyroid Stimulating Hormone 3rd Gen 0.182 uIU/ML Urine Color YELLOW Urine Turbidity HAZY Urine pH 5.0 Urine Specific [place] 1.027 Urine Protein TRACE mg/dL Urine Glucose (UA) NEG mg/dL Urine Ketones NEG mg/dL Urine Occult Blood NEG Urine Nitrite NEG Urine Bilirubin NEG Urine Urobilinogen LESS THAN 2.0 MG/DL Urine Leukocyte Esterase TRACE Urine RBC 1 /hpf Urine WBC 3 /hpf Urine Squamous Epithelial Cells 1 /hpf Urine Hyaline Casts 21 /lpf Urine Granular Casts 2 /lpf Urine Mucus FEW /lpf Microscopic Urinalysis Comment CATH-CULT NOT IND MDM Medical Record Reviewed: Yes Supervised Visit with DAVID: Yes Narrative Course I, Dr. Shaver, have reviewed the advance practice practitioner's documentation and am in agreement, met with the patient face to face, made the diagnosis, and the medical decision making was done by me. *My assessment and Findings: I saw the patient shortly following arrival at the [facility] of [facility]. Hypotension in the right chest ecchymosis observed. Stat aggressive resuscitative measures initiated. Phone to manufacturing maintenance technician for stat thorax and ab/pel imaging ordered. Patient is septic. Admission for management of the same. Heart rate is 100 with a blood pressure of 90/50 at 4 PM. d/w Dr Vera for [facility]MRP. Ray Shaver MD Jul 22, 2017 12:59
[2017-07-22] MEDS ORDERED: SODIUM CHLOR 0.9% 1000 ML INJ 1,000 ML IV ONE ×4 (13:00→19:30)
[2017-07-22] MEDS ORDERED: SODIUM CHLORIDE 0.9% FLUSH 10 ML FLUSH IV FLUSH PRN (13:00)
--- NOTE | 2017-07-22 13:02 | PD ---
HPI Chief Complaint: Abdominal Pain Time Seen by Provider: 12:43 Travel History International Travel<30 days: No Contact w/Intl Traveler<30days: No Traveled to known affect area: No History of Present Illness HPI 62-year-old female that presents to the ED for evaluation of abdominal pain, back pain and hypotension. Patient was brought here by embolus for evaluation of this. Patient has a history of mental disability and is not a good historian. She complains of having pain on her abdomen and her back. This is a chronic issue for her but per report I was given she also has been falling a couple times and now she has a big bruise to her right chest. She also was found by ambulance to be very hypotensive and has been given fluids with minimal improvement of symptoms. Blood pressure by EVAC was in the 70s systolic. She herself cannot really tell me what she takes. Unclear if she takes any blood thinners. She does take multiple medications including pain medication per medical records. She has been here before for UTIs and sepsis in the past but has not been here for hypotension. No signs of head injury. No allergies to medication. Patient states that her pain is 10 out of 10. She does not appear to have any bruising or swelling to the abdomen itself. Most of the swelling is to the right chest and seems to wrap around the side as well. No fevers chills or sweats. No other medical issues at this time. PFSH Past Medical History Hx Anticoagulant Therapy: Yes (ASA) Anxiety: Yes Depression: Yes Heart Rhythm Problems: No Cancer: No Cardiac Catheterization: No Cardiovascular Problems: Yes High Cholesterol: No Chest Pain: Yes Congestive Heart Failure: No COPD: No Developmental Delay: Yes Diminished Hearing: No GERD: Yes Genitourinary: Yes (BLADDER INCONTINENCE, at times) Headaches: Yes Heparin Induced Thrombocytopen: No Hypertension: Yes Implanted Vascular Access Dvce: No Musculoskeletal: No Neurologic: No Psychiatric: Yes Reproductive: No Respiratory: No Immunizations Current: Yes Myocardial Infarction: No Renal Failure: Yes (renal insuffiency) Sleep Apnea: No Thyroid Disease: Yes Menopausal: Yes : 0 Para: 0 Miscarriage: 0 : 0 Dilation and Curettage (D&C): Yes Past Surgical History Abdominal Surgery: No Cardiac Surgery: No Coronary Artery Bypass Graft: No Ear Surgery: No Endocrine Surgery: No Eye Surgery: No Genitourinary Surgery: No Gynecologic Surgery: Yes (D & C) Hysterectomy: Yes Neurologic Surgery: No Oral Surgery: No Thoracic Surgery: No Other Surgery: Yes (THYROID SX) Social History Alcohol Use: No Tobacco Use: No Substance Use: No Allergies-Medications (Allergen,Severity, Reaction): Coded Allergies: No Known Allergies (Verified Adverse Reaction, Unknown, 07/22/17) Reported Meds & Prescriptions Reported Meds & Active Scripts Active Tramadol (Tramadol HCl) 50 Mg Tab 50 Mg PO Q8H PRN Levothyroxine (Levothyroxine Sodium) 175 Mcg Tab 175 Mcg PO DAILY Aspirin 325 Mg Tab 325 Mg PO DAILY Lisinopril 5 Mg Tab 5 Mg PO DAILY Zantac (Ranitidine HCl) 150 Mg Tab 150 Mg PO BID Reported Uceris ER 24 HR (Budesonide) 9 Mg Vee 9 Mg PO DAILY Actos (Pioglitazone HCl) 15 Mg Tab 15 Mg PO DAILY Protonix (Pantoprazole Sodium) 40 Mg Tab 40 Mg PO DAILY Macrobid (Nitrofurantoin Monoh/Nitrofur Macro) 100 Mg Cap 100 Mg PO BID Ocuvite (Multiple Vitamins W/ Minerals) 1 Tab 1 Tab PO DAILY Calcium 600+D Plus Minerals (Calcium Carbonate-Vitamin D W/Minerals) 600-400 Mg- Unit Tab 1 Tab PO DAILY Review of Systems Except as stated in HPI: all other systems reviewed are Neg Physical Exam Narrative GENERAL: SKIN: Warm and dry. Patient has hematoma bruising noted on the right side of the chest to goes to the back. Slightly tender to touch. HEAD: Atraumatic. Normocephalic. EYES: Pupils equal and round. No scleral icterus. No injection or drainage. ENT: No nasal bleeding or discharge. Mucous membranes pink and moist. Tongue is midline. No uvula deviation. NECK: Trachea midline. No JVD. CARDIOVASCULAR: Regular rate and rhythm. No murmurs, S3, S4. RESPIRATORY: No accessory muscle use. Clear to auscultation. Breath sounds equal bilaterally. GASTROINTESTINAL: Abdomen soft, non-tender, nondistended. Hepatic and splenic margins not palpable. MUSCULOSKELETAL: Extremities without clubbing, cyanosis, or edema. No obvious deformities. Full range of motion of the upper and lower extremities bilaterally. 2+ pulses bilaterally. NEUROLOGICAL: Awake and alert. No obvious cranial nerve deficits. Motor grossly within normal limits. Five out of 5 muscle strength in the arms and legs. Normal speech. PSYCHIATRIC: Appropriate mood and affect; insight and judgment normal. Data Data Last Documented VS Vital Signs Date Time Temp Pulse Resp B/P (MAP) Pulse Ox O2 Delivery O2 Flow Rate FiO2 07/22/17 14:45 102 20 93/52 (66) 98 Room Air 07/22/17 12:37 98.7 Orders Orders Electrocardiogram (07/22/17 12:48) Complete Blood Count With Diff (07/22/17 12:48) Comprehensive Metabolic Panel (07/22/17 12:48) Ckmb (Isoenzyme) Profile (07/22/17 12:48) Troponin I (07/22/17 12:48) Prothrombin Time / Inr (Pt) (07/22/17 12:48) Act Partial Throm Time (Ptt) (07/22/17 12:48) Blood Culture (07/22/17 12:48) Lipase (07/22/17 12:48) Urinalysis - C+S If Indicated (07/22/17 12:48) Thyroid Stimulating Hormone (07/22/17 12:48) Iv Access Insert/Monitor (07/22/17 12:48) Ecg Monitoring (07/22/17 12:48) Oximetry (07/22/17 12:48) Type And Screen (07/22/17 12:48) Sodium Chloride 0.9% Flush (Ns Flush) (07/22/17 13:00) Ct Brain W/O Iv Contrast(Rout) (07/22/17 12:53) Chest, Single Ap (07/22/17 12:53) Sodium Chlor 0.9% 1000 Ml Inj (Ns 1000 M (07/22/17 13:00) Ct Abd/Pel W/O Iv Contrast (07/22/17 ) Ct Thorax/ Chest Wo Iv Contras (07/22/17 ) Sodium Chlor 0.9% 1000 Ml Inj (Ns 1000 M (07/22/17 13:15) Lactic Acid Sepsis Protocol (07/22/17 13:05) Ondansetron Inj (Zofran Inj) (07/22/17 13:45) Cath For Specimen (07/22/17 14:09) Sepsis Workup Initiated (07/22/17 ) Piperacil-Tazo 4.5 Gm Premix (Zosyn 4.5 (07/22/17 14:30) Vancomycin Inj (Vancomycin Inj) (07/22/17 14:30) Admit Order (Ed Use Only) (07/22/17 15:17) Labs Laboratory Tests Test 07/22/17 12:55 07/22/17 14:05 White Blood Count 27.2 TH/MM3 Red Blood Count 4.03 MIL/MM3 Hemoglobin 11.0 GM/DL Hematocrit 34.6 % Mean Corpuscular Volume 86.0 FL Mean Corpuscular Hemoglobin 27.2 PG Mean Corpuscular Hemoglobin Concent 31.6 % Red Cell Distribution Width 14.8 % Platelet Count 285 TH/MM3 Mean Platelet Volume 6.5 FL CBC Comment AUTO DIFF Differential Total Cells Counted 100 Neutrophils % (Manual) 78 % Band Neutrophils % 17 % Lymphocytes % 2 % Monocytes % 3 % Neutrophils # (Manual) 25.8 TH/MM3 Differential Comment FINAL DIFF MANUAL Toxic Vacuolation PRESENT Platelet Estimate NORMAL Platelet Morphology Comment NORMAL Tear Drop Cells 1+ [place] Cells 2+ Prothrombin Time 14.1 SEC Prothromb Time International Ratio 1.4 RATIO Activated Partial Thromboplast Time 29.4 SEC Blood Urea Nitrogen 64 MG/DL Creatinine 3.58 MG/DL Random Glucose 99 MG/DL Total Protein 6.2 GM/DL Albumin 2.7 GM/DL Calcium Level 9.9 MG/DL Alkaline Phosphatase 132 U/L Aspartate Amino Transf (AST/SGOT) 9 U/L Alanine Aminotransferase (ALT/SGPT) 12 U/L Total Bilirubin 0.7 MG/DL Sodium Level 137 MEQ/L Potassium Level 5.4 MEQ/L Chloride Level 104 MEQ/L Carbon Dioxide Level 17.9 MEQ/L Anion Gap 15 MEQ/L Estimat Glomerular Filtration Rate 13 ML/MIN Lactic Acid Level 5.1 mmol/L Total Creatine Kinase 33 U/L Troponin I LESS THAN 0.02 NG/ML Lipase 30 U/L Thyroid Stimulating Hormone 3rd Gen 0.182 uIU/ML Urine Color YELLOW Urine Turbidity HAZY Urine pH 5.0 Urine Specific [place] 1.027 Urine Protein TRACE mg/dL Urine Glucose (UA) NEG mg/dL Urine Ketones NEG mg/dL Urine Occult Blood NEG Urine Nitrite NEG Urine Bilirubin NEG Urine Urobilinogen LESS THAN 2.0 MG/DL Urine Leukocyte Esterase TRACE Urine RBC 1 /hpf Urine WBC 3 /hpf Urine Squamous Epithelial Cells 1 /hpf Urine Hyaline Casts 21 /lpf Urine Granular Casts 2 /lpf Urine Mucus FEW /lpf Microscopic Urinalysis Comment CATH-CULT NOT IND MDM Medical Decision Making Medical Screen Exam Complete: Yes Emergency Medical Condition: Yes Medical Record Reviewed: Yes Interpretation(s) CBC & BMP Diagram 07/22/17 12:55 Total Protein 6.2 L, Albumin 2.7 L, Calcium Level 9.9, Alkaline Phosphatase 132 H, Aspartate Amino Transf (AST/SGOT) 9 L, Alanine Aminotransferase (ALT/SGPT) 12 , Total Bilirubin 0.7 lactic acid of 5 troponin and CKMB negative Last Impressions Head CT 07/22/17 1253 Signed Impressions: Service Date/Time: Saturday, July 22, 2017 13:26 - CONCLUSION: No acute disease. Derrick Henry MD Chest X-Ray 07/22/17 1253 Signed Impressions: Service Date/Time: Saturday, July 22, 2017 13:01 - CONCLUSION: No acute disease. Derrick Henry MD Chest CT 07/22/17 0000 Signed Impressions: Service Date/Time: Saturday, July 22, 2017 13:30 - CONCLUSION: No acute disease. Derrick Henry MD Abdomen/Pelvis CT 07/22/17 0000 Signed Impressions: Service Date/Time: Saturday, July 22, 2017 13:30 - CONCLUSION: Edema seen throughout the subcutaneous tissues at the right upper abdomen extending from the midline anteriorly and posterior along the right lateral aspect of the abdomen. No focal fluid collection is seen. Inflammatory/infectious processes versus post traumatic change in the appropriate history. Derrick Henry MD UA negative. EKG shows sinus rhythm but no sign of acute ischemia or arrhythmia. Read by me and attending. Differential Diagnosis Fall versus bruise versus contusion versus sepsis versus dehydration versus bleeding versus anemia versus fracture versus internal injury versus trauma Narrative Course 62-year-old female who presents to the ED for evaluation of abdominal pain, back pain and hypotension. Patient was properly examined and was found to have signs and symptoms of unclear etiology with deafly concerning for bleeding. Patient has a significant bruising on her right side of her chest. My attending Dr. Shaver was made aware of findings and he properly evaluated the patient with me as well. Labs and imaging order. Patient was given IV fluids. 2 L ordered per my attendings recommendations. Labs and imaging show what appears to be significant blood cell count elevation, lactic acidosis, acute kidney failure. This appears to be all new. Patient does have subcutaneous edema on the CAT scan. This was discussed with my attending who agrees with plan. Patient was started on IV antibiotics. Case discussed with the residents will be admission to Dr. Ortiz. Sepsis Criteria SIRS Criteria (2 or more): Heart rate over 90, WBC > 67182, < 4000 or > 10% bands Sepsis Criteria (SIRS+source): Infect source susp/known Severe Sepsis (+one): Lactate >2 Septic Shock Criteria: Lactic acid >=4 Criteria Outcome: Meets severe sepsis criteria, Meets septic shock criteria Diagnosis Primary Impression: Severe sepsis Additional Impressions: Hypotension Qualified Codes: I95.9 - Hypotension, unspecified Acute kidney injury Admitting Information Admitting Physician Requests: Admit Jimmie Beatty Jul 22, 2017 13:02
[2017-07-22] MEDS ORDERED: ACTO15TA22 PO (13:03)
[2017-07-22] MEDS ORDERED: PROT40TA PO (13:03)
[2017-07-22] MEDS ORDERED: BUDE9TAB PO (13:03)
[2017-07-22] MEDS ORDERED: MACR100C2 PO (13:03)
--- NOTE | 2017-07-22 13:17 | RADRPT ---
EXAM DATE/TIME: 07/22/2017 13:01 [facility] COMPARISON: CHEST SINGLE AP, May 05, 2017, 16:45. INDICATIONS : Fever. MEDICAL HISTORY : None. SURGICAL HISTORY : None. ENCOUNTER: Initial ACUITY: 1 day PAIN SCORE: 0/10 LOCATION: Bilateral chest FINDINGS: There is mild patient motion. A single view of the chest demonstrates the lungs to be symmetrically a erated without evidence of mass, infiltrate or effusion. The cardiomediastinal contours are unremark able. Osseous structures are intact. CONCLUSION: No acute disease. Derrick Henry MD on July 22, 2017 at 13:14 Board Certified Radiologist. This report was verified electronically.
[2017-07-22 13:43] LABS: INTERNATIONAL NORMALIZED RATIO 1.4 RATIO; PROTHROMBIN TIME - PATIENT 14.1 SEC (9.8-11.6)
[2017-07-22] MEDS ORDERED: ONDANSETRON HCL 4 MG/2 ML VIAL IV PUSH ONE (13:45)
[2017-07-22 13:46] LABS: HEMATOCRIT 34.6 % (35.0-46.0); MEAN CORPUSCULAR HEMOGLOBIN 27.2 PG (27.0-34.0); MEAN CORPUSCULAR HGB CONC 31.6 % (32.0-36.0); MEAN PLATELET VOLUME 6.5 FL (7.0-11.0); PLATELET COUNT 285 TH/MM3 (150-450); RED BLOOD COUNT 4.03 MIL/MM3 (4.00-5.30); RED CELL DISTRIBUTION WIDTH 14.8 % (11.6-17.2); WHITE BLOOD COUNT 27.2 TH/MM3 (4.0-11.0)
--- NOTE | 2017-07-22 13:49 | RADRPT ---
EXAM DATE/TIME: 07/22/2017 13:26 [facility] COMPARISON: CT BRAIN W/O CONTRAST, May 05, 2017, 16:52. INDICATIONS : Syncope,dizziness four weeks RADIATION DOSE: 40.06 CTDIvol (mGy) MEDICAL HISTORY : Hypertension. Diabetes SURGICAL HISTORY : Hysterectomy. ENCOUNTER: Initial ACUITY: 1 month PAIN SCALE: 10/10 LOCATION: Bilateral cranial TECHNIQUE: Multiple contiguous axial images were obtained of the head. Using automated exposure control and adj ustment of the mA and/or kV according to patient size, radiation dose was kept as low as reasonably a chievable to obtain optimal diagnostic quality images. DICOM format image data is available electro nically for review and comparison. FINDINGS: CEREBRUM: The ventricles are normal for age. No evidence of midline shift, mass lesion, hemorrhage or acute in farction. No extra-axial fluid collections are seen. POSTERIOR FOSSA: The cerebellum and brainstem are intact. The 4th ventricle is midline. The cerebellopontine angle i s unremarkable. EXTRACRANIAL: The visualized portion of the orbits is intact. SKULL: The calvaria is intact. No evidence of skull fracture. CONCLUSION: No acute disease. Derrick Henry MD on July 22, 2017 at 13:45 Board Certified Radiologist. This report was verified electronically.
[2017-07-22 13:51] LABS: LACTIC ACID SEPSIS PROTOCOL 5.1 mmol/L (0.4-2.0)
[2017-07-22 13:53] LABS: ALBUMIN 2.7 GM/DL (3.4-5.0); AST (GOT) 9 U/L (15-37); BICARBONATE 17.9 MEQ/L (21.0-32.0); BLOOD UREA NITROGEN 64 MG/DL (7-18); CALCIUM 9.9 MG/DL (8.5-10.1); CHLORIDE 104 MEQ/L (98-107); CREATININE 3.58 MG/DL (0.50-1.00); GLOMERULAR FILTRATION RATE 13 ML/MIN (>89); GLUCOSE,RANDOM 99 MG/DL (74-106); SODIUM (NA) 137 MEQ/L (136-145)
[2017-07-22 14:03] LABS: ALKALINE PHOSPHATASE 132 U/L (45-117); ALT (GPT) 12 U/L (10-53); TOTAL BILIRUBIN ADULT 0.7 MG/DL (0.2-1.0); TOTAL PROTEIN 6.2 GM/DL (6.4-8.2); TROPONIN I LESS THAN 0.02 NG/ML (0.02-0.05)
--- NOTE | 2017-07-22 14:09 | RADRPT ---
EXAM DATE/TIME: 07/22/2017 13:30 [facility] COMPARISON: No previous studies available for comparison. INDICATIONS : Dizziness,syncope right side pain and swelling RADIATION DOSE: 13.74 CTDIvol (mGy) ; Combined studies - Thorax/Abdomen/Pelvis MEDICAL HISTORY : Hypertension. Diabetes SURGICAL HISTORY : Hysterectomy. ENCOUNTER: Initial ACUITY: 1 month PAIN SCALE: 10/10 LOCATION: Right chest TECHNIQUE: Volumetric scanning of the chest was performed. Using automated exposure control and adjustment of t he mA and/or kV according to patient size, radiation dose was kept as low as reasonably achievable to obtain optimal diagnostic quality images. DICOM format image data is available electronically for r eview and comparison. Follow-up recommendations for detected pulmonary nodules are based at a minimum on nodule size and pa tient risk factors according to Fleischner Society Guidelines. FINDINGS: LUNGS: There is no consolidation or pneumothorax. No concerning pulmonary nodule is visualized. PLEURAE: There is no pleural thickening or pleural effusion. MEDIASTINUM: The heart and great vessels demonstrate no acute abnormality. There is no mediastinal or hilar lymph adenopathy. AXILLAE: Within normal limits. No lymphadenopathy. MUSCULOSKELETAL: Within normal limits for patient age. MISCELLANEOUS: The visualized upper abdominal organs demonstrate no acute abnormality. CONCLUSION: No acute disease. Derrick Henry MD on July 22, 2017 at 14:05 Board Certified Radiologist. This report was verified electronically.
--- NOTE | 2017-07-22 14:14 | RADRPT ---
EXAM DATE/TIME: 07/22/2017 13:30 [facility] COMPARISON: CT ABDOMEN & PELVIS W/O CONTRAST, April 27, 2017, 3:20. INDICATIONS : Right upper quadrant pain with swelling ORAL CONTRAST: No oral contrast ingested. RADIATION DOSE: 13.74 CTDIvol (mGy) ; Combined studies - Thorax/Abdomen/Pelvis MEDICAL HISTORY : Hypertension. Diabetes SURGICAL HISTORY : Hysterectomy. ENCOUNTER: Initial ACUITY: 1 month PAIN SCALE: 10/10 LOCATION: Right Abdomen TECHNIQUE: Volumetric scanning of the abdomen and pelvis was performed. Using automated exposure control and ad justment of the mA and/or kV according to patient size, radiation dose was kept as low as reasonably achievable to obtain optimal diagnostic quality images. DICOM format image data is available electro nically for review and comparison. FINDINGS: LOWER LUNGS: The visualized lower lungs are clear. LIVER: Homogeneous density without lesion. There is no dilation of the biliary tree. The patient is status post cholecystectomy. SPLEEN: Normal size without lesion. PANCREAS: Within normal limits. KIDNEYS: Normal in size and shape. There is no mass, stone, or hydronephrosis. ADRENAL GLANDS: Within normal limits. VASCULAR: There is no aortic aneurysm. BOWEL/MESENTERY: The stomach, small bowel, and colon demonstrate no acute abnormality. There is no free intraperitone al air or fluid. ABDOMINAL WALL: There is edema within the subcutaneous tissues throughout the right upper abdomen. These extend from approximate the midline anteriorly along the right lateral aspect of the abdomen to the mid midline o f the posterior back. A focal fluid collection is not seen. This extends from the inferior aspect of the right breast down to the iliac crest region. RETROPERITONEUM: There is no lymphadenopathy. BLADDER: No wall thickening or mass. REPRODUCTIVE: Within normal limits. INGUINAL: There is no lymphadenopathy or hernia. MUSCULOSKELETAL: Within normal limits for patient age. There is degenerative change of the lumbar spine. CONCLUSION: Edema seen throughout the subcutaneous tissues at the right upper abdomen extending from the midline anteriorly and posterior along the right lateral aspect of the abdomen. No focal fluid collection is seen. Inflammatory/infectious processes versus post traumatic change in the appropriate history. Derrick Henry MD on July 22, 2017 at 14:07 Board Certified Radiologist. This report was verified electronically.
[2017-07-22 14:15] LABS: BANDS 17 % (0-6); LYMPHOCYTES 2 % (9-44); MONOCYTES 3 % (0-8); NEUTROPHIL # MANUAL DIFF 25.8 TH/MM3 (1.8-7.7); POLYS (SEG NEUTROPHILS) 78 % (16-70); TOXIC VACUOLATION PRESENT (NONE SEEN)
[2017-07-22 14:16] LABS: BURR CELLS 2+ (NORMAL); TEARDROP RBCS 1+ (NORMAL)
[2017-07-22 14:26] LABS: BILIRUBIN, URINE NEG (NEG); BLOOD, URINE NEG (NEG); GLUCOSE,URINE NEG (NEG); HYALINE CAST, URINE 21 /lpf (RARE); KETONE, URINE NEG (NEG); MUCUS URINE FEW /lpf (OCC); NITRITE,URINE NEG (NEG); SQUAMOUS EPITHELIAL CELL URINE 1 /hpf (0-5); URINE COLOR YELLOW (YELLW/STRAW); URINE LEUKOCYTE ESTERASE TRACE (NEG)
[2017-07-22] MEDS ORDERED: PIPERACIL-TAZO 4.5 GM PREMIX 100 ML IV ONE (14:30)
[2017-07-22] MEDS ORDERED: VANCOMYCIN INJ 1,000 MG in SODIUM CHLOR 0.9% 250 ML INJ 250 ML IV ONE (14:30)
--- NOTE | 2017-07-22 15:28 | HHI.HP ---
[facility] Service Family Medicine Primary Care Physician Lamar Ortiz MD Admission Diagnosis acute sepsis, acute kidney injury, hypotension Diagnoses: International Travel<30 Days: No Contact w/Intl Traveler<30days: No Known Affected Area: No History of Present Illness Patient is a 62 year old female who presents to the ED via EMS for evaluation of right-sided abdominal, flank and back erythema, swelling and pain. Patient has developmental delays per chart. Patient is alone in the room. Patient's care provider and Power of Staff Psychiatrist, Mr. Felipe Nagy, was contacted at [phone]. Neither patient nor care provider are good historians. Per patient, she has not been feeling well for the past four weeks. She reports feeling "bad." She suffers from migraine headache, which she says have been more frequent over that time period. She also reports a continuous, non- radiating sharp, sometimes burning pain over her right upper quadrant that has expanded to include her right flank and back. She denies trauma to the areas. She has taken unspecified pain medication, which has relieved some of the pain. She has tried a heating pad, which has provided some relief as well. Over the past four days, the patient reports nausea and vomiting. While she has had a decreased appetite over the last four weeks, she has barely eaten anything over the past four days. She has been vomiting at least 3-4 times per day; she last vomited yesterday. She has also felt dizzy and lightheaded over the past few days. She reports multiple falls. She reports nausea today but denies vomiting. Patient experiences urinary incontinence at baseline but says that she has had increased urine output over the past few days. She reports burning with urination. Per care provider, the patient is "mentally challenged" and reads on a fourth grade level. He has noted a decline in her health over the past six month; the patient has had increased difficulty ambulating. He reports that the patient appears to be in a lot of pain; she complains of "pain in stomach and of stomach area." He has been giving her Aleve q6hr and Tramadol 50mg q8hr. He also reports difficulty sleeping. Per EMS, patient was found to be hypotensive. Systolic pressure was recorded in the 70s. She received fluid in transit with minimal improvement. Review of Systems ROS Limitations: Poor Historian Constitutional: COMPLAINS OF: Fatigue, Fever (Subjective ), Chills, Dizziness, Change in appetite (Decreased ), DENIES: Night Sweats Eyes: COMPLAINS OF: Blurred vision, DENIES: Vision loss, Double Vision Ears, nose, mouth, throat: COMPLAINS OF: Tinnitus, Nasal discharge, Throat pain , Hoarseness, Ear Pain, Running Nose Respiratory: COMPLAINS OF: Cough, Wheezing, Sputum production (Mucous - yellow) , Shortness of breath Cardiovascular: COMPLAINS OF: Chest pain (Right-sided) Gastrointestinal: COMPLAINS OF: Abdominal pain, Constipation, Nausea, Vomiting , DENIES: Black stools, Bloody stools, Diarrhea Genitourinary: COMPLAINS OF: Urinary frequency, Urinary incontinence, Dysuria Musculoskeletal: COMPLAINS OF: Back pain Integumentary: COMPLAINS OF: Rash Neurologic: COMPLAINS OF: Headache Psychiatric: COMPLAINS OF: Depression, DENIES: Anxiety, Mood changes Past Family Social History Past Medical History Per chart review: Anxiety Depression Developmental delays - mental handicap Headaches/migraines Hypothyroidism GERD Chest pain Hx of UTIs Renal insufficiency Bladder incontinence Chronic back pain Past Surgical History Per chart review: Thyroid surgery EGD - 08/30/16 Cholecystectomy - 03/04/15 D&C Hysterectomy Colonoscopy - 07/30/16 and 08/11/15 Reported Medications Tramadol (Tramadol HCl) 50 Mg Tab 50 Mg PO Q8H PRN Levothyroxine (Levothyroxine Sodium) 175 Mcg Tab 175 Mcg PO DAILY Aspirin 325 Mg Tab 325 Mg PO DAILY Lisinopril 5 Mg Tab 5 Mg PO DAILY Zantac (Ranitidine HCl) 150 Mg Tab 150 Mg PO BID Uceris ER 24 HR (Budesonide) 9 Mg Vee 9 Mg PO DAILY Actos (Pioglitazone HCl) 15 Mg Tab 15 Mg PO DAILY Protonix (Pantoprazole Sodium) 40 Mg Tab 40 Mg PO DAILY Macrobid (Nitrofurantoin Monoh/Nitrofur Macro) 100 Mg Cap 100 Mg PO BID Ocuvite (Multiple Vitamins W/ Minerals) 1 Tab 1 Tab PO DAILY Calcium 600+D Plus Minerals (Calcium Carbonate-Vitamin D W/Minerals) 600-400 Mg- Unit Tab 1 Tab PO DAILY Allergies: Coded Allergies: No Known Allergies (Verified Allergy, Unknown, 07/22/17) Active Ordered Medications Current Medications Medications (Trade) Dose Ordered Sig/Beatrice Route Start Time Stop Time Status Last Admin (NS Flush) 2 ml UNSCH PRN IV FLUSH 07/22/17 13:00 (Ocuvite) 1 tab DAILY PO 07/23/17 09:00 (Actos) 15 mg DAILY PO 07/23/17 09:00 Patient Own Medication PT OWN MED: BUDESON... DAILY PO 07/23/17 09:00 (Oscal-D 250-125) 500 mg DAILY PO 07/23/17 09:00 (Synthroid) 100 mcg DAILY@0600 PO 07/23/17 06:00 (Pepcid) 10 mg BID PO 07/22/17 21:00 (Synthroid) 75 mcg DAILY@0600 PO 07/23/17 06:00 Sodium Chloride 1,000 ml @ 140 mls/hr Q7H9M IV 07/22/17 16:38 07/22/17 17:40 (NS Flush) 2 ml UNSCH PRN IV FLUSH 07/22/17 16:45 (NS Flush) 2 ml BID IV FLUSH 07/22/17 21:00 (Zofran Inj) 4 mg Q6H PRN IVP 07/22/17 16:45 (Tylenol) 650 mg Q6H PRN PO 07/22/17 16:45 (Morphine Inj) 2 mg Q3H PRN IV PUSH 07/22/17 16:45 (Ultram) 50 mg Q6H PRN PO 07/22/17 16:45 (Ultram) 100 mg Q4H PRN PO 07/22/17 16:45 (Narcan Inj) 0.4 mg UNSCH PRN IV PUSH 07/22/17 16:45 (Natalie-Colace) 1 tab BID PO 07/22/17 21:00 (Milk Of Magnesia Liq) 30 ml Q12H PRN PO 07/22/17 16:45 (Senokot) 17.2 mg Q12H PRN PO 07/22/17 16:45 (Dulcolax Supp) 10 mg DAILY PRN RECTAL 07/22/17 16:45 (Lactulose Liq) 30 ml DAILY PRN PO 07/22/17 16:45 Piperacillin Sod/ Tazobactam Sod 50 ml @ 100 mls/hr Q8H IV 07/22/17 18:00 Pharmacy Profile Note 0 ml @ 0 mls/hr UNSCH OTHER 07/22/17 16:45 ([facility] Ordered Lab Info) SPECIFIC LAB TO BE DRAWN:RAN... ONCE ONCE .XX 07/23/17 08:00 07/23/17 08:01 Family History Per chart review: Mother - diabetes mellitus Sister - lupus erythematosus Social History Per chart review: Alcohol: none. Tobacco: never smoker. Drug: none. Physical Exam Vital Signs Vital Signs Date Time Temp Pulse Resp B/P (MAP) Pulse Ox O2 Delivery O2 Flow Rate FiO2 07/22/17 14:45 102 20 93/52 (66) 98 Room Air 07/22/17 13:34 96 18 97/57 (70) 100 Room Air 07/22/17 13:28 98 18 87/48 (61) 07/22/17 12:52 98 18 78/50 (59) 98 Room Air 07/22/17 12:37 98.7 20 Physical Exam GENERAL: This is a well-nourished, well-developed patient, in obvious distress. She periodically cries out in pain. SKIN: Warm and dry. Large erythematous area over right upper quadrant, extending over right flank to right mid-back. Area with some bluish discoloration anteriorly. Skin feels taut and warm and is very tender to the touch. HEAD: Atraumatic. Normocephalic. No temporal or scalp tenderness. EYES: Pupils equal round and reactive. Extraocular motions intact. No scleral icterus. No injection or drainage. ENT: Ear canal on right with some erythema; tympanic membranes could not be appreciate due to presences of earwax. Nose without bleeding, purulent drainage or septal hematoma. Throat without erythema, tonsillar hypertrophy or exudate. Uvula midline. Airway patent. NECK: Trachea midline. No JVD or lymphadenopathy. Supple, no meningeal signs. Tender upon palpation. CARDIOVASCULAR: Regular rate and rhythm without murmurs, gallops, or rubs. RESPIRATORY: Clear to auscultation. Breath sounds equal bilaterally. No wheezes , rales, or rhonchi. GASTROINTESTINAL: Positive bowel sounds. Abdomen soft, nondistended. Tender upon palpation. No palpable masses. No guarding. MUSCULOSKELETAL: Extremities without clubbing, cyanosis, or edema. Bilateral calf tenderness. NEUROLOGICAL: Awake and alert. Oriented x3. Cranial nerves II through XII intact. Motor grossly within normal limits. Speech mumbled. Laboratory Laboratory Tests Test 07/22/17 12:55 07/22/17 14:05 White Blood Count 27.2 Red Blood Count 4.03 Hemoglobin 11.0 Hematocrit 34.6 Mean Corpuscular Volume 86.0 Mean Corpuscular Hemoglobin 27.2 Mean Corpuscular Hemoglobin Concent 31.6 Red Cell Distribution Width 14.8 Platelet Count 285 Mean Platelet Volume 6.5 CBC Comment AUTO DIFF Differential Total Cells Counted 100 Neutrophils % (Manual) 78 Band Neutrophils % 17 Lymphocytes % 2 Monocytes % 3 Neutrophils # (Manual) 25.8 Differential Comment FINAL DIFF MANUAL Toxic Vacuolation PRESENT Platelet Estimate NORMAL Platelet Morphology Comment NORMAL Tear Drop Cells 1+ Jamie Cells 2+ Prothrombin Time 14.1 Prothromb Time International Ratio 1.4 Activated Partial Thromboplast Time 29.4 Blood Urea Nitrogen 64 Creatinine 3.58 Random Glucose 99 Total Protein 6.2 Albumin 2.7 Calcium Level 9.9 Alkaline Phosphatase 132 Aspartate Amino Transf (AST/SGOT) 9 Alanine Aminotransferase (ALT/SGPT) 12 Total Bilirubin 0.7 Sodium Level 137 Potassium Level 5.4 Chloride Level 104 Carbon Dioxide Level 17.9 Anion Gap 15 Estimat Glomerular Filtration Rate 13 Lactic Acid Level 5.1 Total Creatine Kinase 33 Troponin I LESS THAN 0.02 Lipase 30 Thyroid Stimulating Hormone 3rd Gen 0.182 Urine Color YELLOW Urine Turbidity HAZY Urine pH 5.0 Urine Specific Gillett 1.027 Urine Protein TRACE Urine Glucose (UA) NEG Urine Ketones NEG Urine Occult Blood NEG Urine Nitrite NEG Urine Bilirubin NEG Urine Urobilinogen LESS THAN 2.0 Urine Leukocyte Esterase TRACE Urine RBC 1 Urine WBC 3 Urine Squamous Epithelial Cells 1 Urine Hyaline Casts 21 Urine Granular Casts 2 Urine Mucus FEW Microscopic Urinalysis Comment CATH-CULT NOT IND Date/Time Source Procedure Growth Status 07/22/17 13:00 Blood Peripheral Aerobic Blood Culture Pending Received 07/22/17 13:00 Blood Peripheral Anaerobic Blood Culture Pending Received Result Diagram: 07/22/17 1255 07/22/17 1255 Imaging Last [address] 07/22/17 1253 Signed Impressions: Service Date/Time: Saturday, July 22, 2017 13:26 - CONCLUSION: No acute disease. Derrick Henry MD Chest X-Ray 07/22/17 1253 Signed Impressions: Service Date/Time: Saturday, July 22, 2017 13:01 - CONCLUSION: No acute disease. Derrick eHnry MD Chest CT 07/22/17 0000 Signed Impressions: Service Date/Time: Saturday, July 22, 2017 13:30 - CONCLUSION: No acute disease. Derrick Henry MD Abdomen/Pelvis CT 07/22/17 0000 Signed Impressions: Service Date/Time: Saturday, July 22, 2017 13:30 - CONCLUSION: Edema seen throughout the subcutaneous tissues at the right upper abdomen extending from the midline anteriorly and posterior along the right lateral aspect of the abdomen. No focal fluid collection is seen. Inflammatory/infectious processes versus post traumatic change in the appropriate history. Derrick Henry MD Caprini VTE Risk Assessment Caprini VTE Risk Assessment: Mod/High Risk (score >= 2) VTE Pharm Contraindication: Rule out active bleeding Lennyi Risk Assessment Model Point Value = 1 Point Value = 2 Point Value = 3 Point Value = 5 Age 41-60 Minor surgery BMI > 25 kg/m2 Swollen legs Varicose veins or History of unexplained or recurrent spontaneous Oral contraceptives or hormone replacement Sepsis (< 1 month) Serious lung disease, including pneumonia (< 1 month) Abnormal pulmonary function Acute myocardial infarction Congestive heart failure (< 1 month) History of inflammatory bowel disease Medical patient at bed rest Age 61-74 Arthroscopic surgery Major open surgery (> 45 min) Laparoscopic surgery (> 45 min) Malignancy Confined to bed (> 72 hours) Immobilizing plaster cast Central venous access Age >= 75 History of VTE Family history of VTE Factor V Leiden Prothrombin [id number] Lupus anticoagulant Anticardiolipin antibodies Elevated serum homocysteine Heparin-induced thrombocytopenia Other congenital or acquired thrombophilia Stroke (< 1 month) Elective arthroplasty Hip, pelvis, or leg fracture Acute spinal cord injury (< 1 month) Prophylaxis Regimen Total Risk Factor Score Risk Level Prophylaxis Regimen 0-1 Low Early ambulation 2 Moderate Order ONE of the following: *Sequential Compression Device (SCD) *Heparin 5000 units SQ BID 3-4 Higher Order ONE of the following medications: *Heparin 5000 units SQ TID *Enoxaparin/Lovenox 40 mg SQ daily (WT < 150 kg, CrCl > 30 mL/min) *Enoxaparin/Lovenox 30 mg SQ daily (WT < 150 kg, CrCl > 10-29 mL/min) *Enoxaparin/Lovenox 30 mg SQ BID (WT < 150 kg, CrCl > 30 mL/min) AND/OR *Sequential Compression Device (SCD) 5 or more Highest Order ONE of the following medications: *Heparin 5000 units SQ TID (Preferred with Epidurals) *Enoxaparin/Lovenox 40 mg SQ daily (WT < 150 kg, CrCl > 30 mL/min) *Enoxaparin/Lovenox 30 mg SQ daily (WT < 150 kg, CrCl > 10-29 mL/min) *Enoxaparin/Lovenox 30 mg SQ BID (WT < 150 kg, CrCl > 30 mL/min) AND *Sequential Compression Device (SCD) Assessment and Plan Assessment and Plan Patient is a 62 year old female who presents to the ED via EMS for evaluation of right-sided abdominal, flank and back erythema, swelling and pain. Patient was found to be hypotensive in transit to hospital with systolic pressures in the 70s. Patient has received multiple fluid boluses with minimal improvement. Patient admitted for management of pain and hypotension. Code Status Full code. Discussed Condition With Dr. Vera. Problem List: (1) Severe sepsis ICD Codes: A41.9 - Sepsis, unspecified organism; R65.20 - Severe sepsis without septic shock Status: Acute Plan: On admission, patient meets severe sepsis criteria with HR 98, BP 78/50, WBC 27.2, Lactic acid 5.1. Source of infection: likely abdominal wall infection. Microbiology: * Blood culture pending. Imaging: * CT Abdomen/Pelvis 07/22: Edema seen throughout the subcutaneous tissues at the right upper abdomen extending from the midline anteriorly and posterior along the right lateral aspect of the abdomen. No focal fluid collection is seen. Inflammatory/infectious processes versus post traumatic change in the appropriate history. Medications: * NS Bolus x3 in ED. * NS at 140 ml/hr. * Zosyn 4.5gm IV x1 received in ED. * Vancomycin 1gm IV x1 received in ED. * Zosyn 2.25gm IV q8hr ordered. Renal dosing. * Vancomycin Pharmacy Consult placed for next dosing. (2) Hypotension ICD Codes: I95.9 - Hypotension, unspecified Status: Acute Plan: See Plan for Severe Sepsis. (3) Abdominal pain ICD Codes: R10.9 - Abdominal pain Status: Acute Plan: Patient with chronic abdominal pain. She is established with Dr. Bruce. Patient has had work-up including EGD and colonoscopies but specific diagnosis not found during chart review. May or may not currently be taking Uceris and Liada. She presents with worsening "pain in stomach and of stomach area." On exam, patient has large erythematous area over right upper quadrant, extending over right flank to right mid-back. Area with some bluish discoloration anteriorly. Skin feels taut and warm and is very tender to the touch. Labs: * 07/22: WBC 27.2 with 78% neurophils. Lactic acid 5.1 with repeat 2.9. Lipase 30. Imaging: * CT Abdomen/Pelvis 07/22: Edema seen throughout the subcutaneous tissues at the right upper abdomen extending from the midline anteriorly and posterior along the right lateral aspect of the abdomen. No focal fluid collection is seen. Inflammatory/infectious processes versus post traumatic change in the appropriate history. Studies: * Hemoccult pending. Medications: * Zosyn 4.5gm IV x1 received in ED. * Vancomycin 1gm IV x1 received in ED. * Zosyn 2.25gm IV q8hr ordered. Renal dosing. * Vancomycin Pharmacy Consult placed for next dosing. * Acetaminophen 650mg q6hr PO PRN Pain 1-2. * Tramadol 50mg q6hr PO PRN Pain 3-5. * Tramadol 100mg q4hr PO PRN Pain 6-10. * Morphine 2mg IV PRN Breakthrough pain. (4) Chest pain ICD Codes: R07.9 - Chest pain, unspecified Plan: Patient with right-sided chest pain. ACS rule out: * Troponin x1 negative. Follow-up serial troponin. * EKG reads normal sinus rhythm. Follow-up serial EKGs. * Continuous telemetry. Pulmonary/respiratory work-up: * CXR 07/22: A single view of the chest demonstrates the lungs to be symmetrically aerated without evidence of mass, infiltrate or effusion. * CT Thorax/chest 07/22: No acute disease. * Influenza pending. (5) Acute kidney injury ICD Codes: N17.9 - Acute kidney failure, unspecified Status: Acute Plan: On admission, Cr 3.58 and BUN 64 with estimated GFR of 13. Per chart, patient with history of renal insufficiency. Creatine on 06/15/17: 1.12. Monitor. Repeat CMP in a.m. Medication: * NS at 140 ml/hr. Orders: * Strict I&Os. (6) Hypothyroidism ICD Codes: E03.9 - Hypothyroidism Status: Chronic Plan: Patient with history of hypothyroidism. * Continue home meds. (7) GERD (gastroesophageal reflux disease) ICD Codes: K21.9 - Gastroesophageal reflux disease Status: Acute Plan: Patient with history of GERD. * Continue home meds. (8) Fluid, Electrolyte, Nutrition, and Prophylaxis Status: Acute Plan: Fluid: * NS Bolus x3 in ED. * NS at 140 ml/hr. Electrolyte: * Monitor and replete as necessary. Nutrition: * NPO until bedside swallow. * To start with clear fluids, advance as tolerated. DVT Prophylaxis: * SCDs. * Hold chemical prophylaxis until bleed ruled out. Physician Certification 2 Midnight Certification Type: Admission for Inpatient Services Order for Inpatient Services The services are ordered in accordance with Medicare regulations or non- Medicare payer requirements, as applicable. In the case of services not specified as inpatient-only, they are appropriately provided as inpatient services in accordance with the 2-midnight benchmark. Estimated LOS (days): 4 days is the estimated time the patient will need to remain in the hospital, assuming treatment plan goals are met and no additional complications. Post-Hospital Plan: Not yet determined Problem Qualifiers (1) Hypotension: Qualified Codes: I95.9 - Hypotension, unspecified Ann Pradhan MD R1 Jul 22, 2017 15:28
[2017-07-22] MEDS ORDERED: MAGNESIUM HYDROXIDE SUSP 30 ML CUP PO PRN (16:45)
[2017-07-22] MEDS ORDERED: Vancomycin Consult Pharmacy 1 EA OTHER SCH (16:45)
[2017-07-22] MEDS ORDERED: BISACODYL 10 MG SUPP RECTAL PRN (16:45)
[2017-07-22] MEDS ORDERED: SENNOSIDES 8.6 MG TAB PO PRN (16:45)
[2017-07-22] MEDS ORDERED: NALOXONE HCL 0.4 MG/ML AMP IV PUSH PRN (16:45)
[2017-07-22] MEDS: SODIUM CHLOR 0.9% 1000 ML INJ 1,000 ML IV SCH ×2 (17:40→23:47)
--- NOTE | 2017-07-22 18:17 | HHI.PR ---
Addendum to Inpatient Note Addendum Reason: Additional Documentation Additional Information S: Medical team paged by nursing staff regarding patient's hypotension. Patient continues to be hypotensive to the 90s/50s despite over 3 L of IV fluids administered. Per report, patient continues to be able to converse with staff and is oriented to PPT 3. However, patient still unable to give a full history regarding her abdominal infection/wound. Upon entering the room, the patient states that she feels warm and is starting to "hurt all over." O: VITALS: 98 degrees, 74/59, RR 19 at 95%, HR 103 GENERAL: Elderly, frail appearing female lying in bed in no acute distress. SKIN: Warm and dry. No rash. See below for ABD wall. HEENT: Atraumatic, normocephalic with extraocular motions intact. No rhinorrhea. No visible lymphadenopathy or jugulovenous distension appreciated. CARDIOVASCULAR: Tachycardic rate and regular rhythm without obvious murmurs, gallops, or rubs. 2+ pulses in all four extremities. RESPIRATORY: Clear to auscultation bilaterally with no crackles, wheezes, or rhonchi. No increased work of breathing. GASTROINTESTINAL: Patient with a visible erythematous upper right quadrant ranging from the midline through the axilla to her paraspinal muscles. Area edematous and tender to palpation. No visible bleeding, crusting, drainage, or obvious trauma. Otherwise abdomen soft, nondistended with faint bowel sounds. Negative rebound tenderness. Negative Eugene sign. MUSCULOSKELETAL: No cyanosis or edema. No calf tenderness. NEURO/PSYCH: Afocal. Awake, alert, and oriented x3. Normal speech and judgement. A/P: Ms. Eldridge is a 62 y/o F who presented in severe sepsis with presumed site of ABD wall cellulitis now in septic shock. 1. Septic Shock -1L NS bolus ordered -Insert Terrazas Catheter for strict I/Os -Continue Vancomycin and Zosyn for antibiotic coverage -Consult digital account coordinator for pressure control; Evaluated and discussed with Dr. Perdomo who agrees with medical plan Andres Vera MD R2 Jul 22, 2017 18:17
[2017-07-22] MEDS: MORPHINE SULFATE 2 MG/ML SYRINGE IV PUSH PRN ×2 (18:30→22:15)
[2017-07-22] MEDS ORDERED: CHLORHEXIDINE GLUCONATE 2 % 1 PACK (2 CLOTHS)(extra cloths) TOPICAL PRN (18:45)
--- NOTE | 2017-07-22 20:54 | PD.CONS ---
HPI Service Critical Care Medicine Consult Requested By [facility] service Reason for Consult management of hemodynamics in septic shock Primary Care Physician Lamar Ortiz MD History of Present Illness This is a 62-year-old female with a history of developmental delay and recurrent urinary tract infections who presents with new onset right-sided abdominal and flank pain. Per the [facility] service admission note this is been going on for approximately 4 weeks. Patient has a history of developmental delay and is difficult to get a complete history from her, no analysis with her on my evaluation. On my evaluation she endorses flank pain radiating around to her chest. She endorses subjective chills. Denies recent fevers to me. Also endorses nausea, vomiting. In the emergency department she was found to have significant erythema, rubor, dolor, and edema from approximately the fifth intercostal space down to the eighth or ninth intercostal space wrapping around from the midline in the back all the way around to just medial to the breast. CT scan of the abdomen and pelvis confirms significant subcutaneous edema, but this area of edema appears to be contained by intact fascial planes, particularly in the midline of the back. Laboratory evidence is significant for a white blood cell count of 27k, creatinine is 3.58, potassium 5.4, bicarb of 17.9, anion gap elevated at 15, BUN of 64, an initial lactate of 5.1. In the emergency department she received 3 L of crystalloid IV fluids. Despite this she is hypotensive with a mean arterial pressure of 51. Critical care medicine is consulted to evaluate manage her presumed septic shock secondary to severe cellulitis of the trunk. I have given her an additional liter of crystalloid and then placed central venous access, see separate procedure note for details. In addition her lactate is starting to clear and is now 2.9 with an more currently pending, however it is not clearing fast enough and she remains oliguric. I placed a Terrazas for accurate hourly I's and O's. The remainder of the review systems for the patient is negative except documented in the HPI, although this is severely limited by her baseline developmental delay. Review of Systems ROS Limitations: Poor Historian Constitutional: COMPLAINS OF: Chills, DENIES: Fever Respiratory: DENIES: Cough, Sputum production, Shortness of breath Cardiovascular: COMPLAINS OF: Chest pain Gastrointestinal: COMPLAINS OF: Nausea, Vomiting, DENIES: Abdominal pain, Black stools, Bloody stools, Constipation, Diarrhea ROS significantly limited by baseline mental status. Positive for flank pain Past Family Social History Allergies: Coded Allergies: No Known Allergies (Verified Allergy, Unknown, 07/22/17) Past Medical History Anxiety Depression Developmental delays - mental handicap Headaches/migraines Hypothyroidism GERD Chest pain Hx of UTIs Renal insufficiency Bladder incontinence Chronic back pain Past Surgical History Thyroid surgery EGD - 08/30/16 Cholecystectomy - 03/04/15 D&C Hysterectomy Colonoscopy - 07/30/16 and 08/11/15 Reported Medications Tramadol (Tramadol HCl) 50 Mg Tab 50 Mg PO Q8H PRN Levothyroxine (Levothyroxine Sodium) 175 Mcg Tab 175 Mcg PO DAILY Aspirin 325 Mg Tab 325 Mg PO DAILY Lisinopril 5 Mg Tab 5 Mg PO DAILY Zantac (Ranitidine HCl) 150 Mg Tab 150 Mg PO BID Uceris ER 24 HR (Budesonide) 9 Mg Vee 9 Mg PO DAILY Actos (Pioglitazone HCl) 15 Mg Tab 15 Mg PO DAILY Protonix (Pantoprazole Sodium) 40 Mg Tab 40 Mg PO DAILY Macrobid (Nitrofurantoin Monoh/Nitrofur Macro) 100 Mg Cap 100 Mg PO BID Ocuvite (Multiple Vitamins W/ Minerals) 1 Tab 1 Tab PO DAILY Calcium 600+D Plus Minerals (Calcium Carbonate-Vitamin D W/Minerals) 600-400 Mg- Unit Tab 1 Tab PO DAILY Active Ordered Medications See MAR Family History Mother - diabetes mellitus Sister - lupus erythematosus Social History Never smoker. Denies EtOH or other drugs Physical Exam Vital Signs Vital Signs Date Time Temp Pulse Resp B/P (MAP) Pulse Ox O2 Delivery O2 Flow Rate FiO2 07/22/17 19:00 104 22 97/52 (67) 100 07/22/17 18:00 105 07/22/17 18:00 97.8 105 24 77/57 (64) 100 07/22/17 17:16 105 18 91/54 (66) 96 07/22/17 14:45 102 20 93/52 (66) 98 Room Air 07/22/17 13:34 96 18 97/57 (70) 100 Room Air 07/22/17 13:28 98 18 87/48 (61) 07/22/17 12:52 98 18 78/50 (59) 98 Room Air 07/22/17 12:37 98.7 20 Physical Exam GENERAL: Elderly female, lying in bed, in distress from her flank pain HEENT: Normocephalic. Atraumatic. Pupils equal, round, reactive, conjugate. Mucous membranes are moist NECK: Trachea is midline. There is no JVD. CHEST: Equal chest rise. Room air. CARDIOVASCULAR: Tachycardic rate, regular rhythm. Appears sinus by telemetry. Mean arterial pressure is 51 mmHg on my evaluation ABDOMEN: Soft, nontender, nondistended. No guarding. There is significant tenderness to palpation over the right flank and edema and erythema with rubor and calor present from midline extending around to just medial to the right breast. This extends cephalad from approximately the fifth intercostal space down to approximately the ninth intercostal space. There is no fluctuance. There is no mass. The area of erythema is blanchable. There are no rashes or pustules in the area of edema. MUSCULOSKELETAL: Pulses 2+. No peripheral edema. NEUROLOGICAL: RASS 0 to -1. Follows commands in all 4 extremities. Answers simple questions. Unclear neurologic baseline, but this appears to be baseline for the patient. Difficult to answer complex questions. No gross focal deficits. Laboratory Laboratory Tests Test 07/22/17 12:55 07/22/17 14:05 07/22/17 16:24 07/22/17 18:00 White Blood Count 27.2 Red Blood Count 4.03 Hemoglobin 11.0 Hematocrit 34.6 Mean Corpuscular Volume 86.0 Mean Corpuscular Hemoglobin 27.2 Mean Corpuscular Hemoglobin Concent 31.6 Red Cell Distribution Width 14.8 Platelet Count 285 Mean Platelet Volume 6.5 CBC Comment AUTO DIFF Differential Total Cells Counted 100 Neutrophils % (Manual) 78 Band Neutrophils % 17 Lymphocytes % 2 Monocytes % 3 Neutrophils # (Manual) 25.8 Differential Comment FINAL DIFF MANUAL Toxic Vacuolation PRESENT Platelet Estimate NORMAL Platelet Morphology Comment NORMAL Tear Drop Cells 1+ Jamie Cells 2+ Prothrombin Time 14.1 Prothromb Time International Ratio 1.4 Activated Partial Thromboplast Time 29.4 Blood Urea Nitrogen 64 Creatinine 3.58 Random Glucose 99 Total Protein 6.2 Albumin 2.7 Calcium Level 9.9 Alkaline Phosphatase 132 Aspartate Amino Transf (AST/SGOT) 9 Alanine Aminotransferase (ALT/SGPT) 12 Total Bilirubin 0.7 Sodium Level 137 Potassium Level 5.4 Chloride Level 104 Carbon Dioxide Level 17.9 Anion Gap 15 Estimat Glomerular Filtration Rate 13 Lactic Acid Level 5.1 2.9 Total Creatine Kinase 33 Troponin I LESS THAN 0.02 Lipase 30 Thyroid Stimulating Hormone 3rd Gen 0.182 Urine Color YELLOW Urine Turbidity HAZY Urine pH 5.0 Urine Specific [place] 1.027 Urine Protein TRACE Urine Glucose (UA) NEG Urine Ketones NEG Urine Occult Blood NEG Urine Nitrite NEG Urine Bilirubin NEG Urine Urobilinogen LESS THAN 2.0 Urine Leukocyte Esterase TRACE Urine RBC 1 Urine WBC 3 Urine Squamous Epithelial Cells 1 Urine Hyaline Casts 21 Urine Granular Casts 2 Urine Mucus FEW Microscopic Urinalysis Comment CATH-CULT NOT IND Nasal Screen MRSA (PCR) MRSA DETECTED Test 07/22/17 18:38 Troponin I LESS THAN 0.02 Date/Time Source Procedure Growth Status 07/22/17 13:00 Blood Peripheral Aerobic Blood Culture Pending Received 07/22/17 13:00 Blood Peripheral Anaerobic Blood Culture Pending Received Result Diagram: 07/22/17 1255 07/22/17 1255 Imaging Last Impressions Head CT 07/22/17 1253 Signed Impressions: Service Date/Time: Saturday, July 22, 2017 13:26 - CONCLUSION: No acute disease. Derrick Henry MD Chest X-Ray 07/22/17 1253 Signed Impressions: Service Date/Time: Saturday, July 22, 2017 13:01 - CONCLUSION: No acute disease. Derrick Henry MD Chest CT 07/22/17 0000 Signed Impressions: Service Date/Time: Saturday, July 22, 2017 13:30 - CONCLUSION: No acute disease. Derrick Henry MD Abdomen/Pelvis CT 07/22/17 0000 Signed Impressions: Service Date/Time: Saturday, July 22, 2017 13:30 - CONCLUSION: Edema seen throughout the subcutaneous tissues at the right upper abdomen extending from the midline anteriorly and posterior along the right lateral aspect of the abdomen. No focal fluid collection is seen. Inflammatory/infectious processes versus post traumatic change in the appropriate history. Derrick Henry MD Septic Shock Reassessment Septic shock perfusion: reassessment completed Assessment and Plan Assessment and Plan Assessment: 62-year-old female with what appears to be a severe right flank cellulitis. Unclear the origin of cellulitis is as I do not see any trauma, or abrasions that would be a site or nidus for infection. Certainly unilateral erythema in what appears to be a dermatomal distribution raises concern over herpes zoster infection, however there are no lesions at all within the area of edema and erythema, and this looks much more like a cellulitis then any dermatomal rash. I agree with vancomycin and Zosyn as a choice of empiric antibiotic coverage. Agree with blood cultures. Patient clearly is in septic shock with elevated lactate and endorgan damage. We will continue to hydrate her with IV fluids as it still appears she is intravascularly volume deplete. If she continues to worsen or her shock does not improve, I would recommend adding clindamycin for toxin production, although this does not appear to be necrotizing soft tissue infection as by CT scan it appears to keep fascial planes intact. Remains very critically ill with life-threatening septic shock and multiple organ dysfunction. Active problems: Septic shock Right flank severe cellulitis Acute kidney injury Hyperkalemia Acute intravascular volume depletion Plan: Continue vancomycin Continue Zosyn Follow blood cultures Place central venous access Start norepinephrine for goal map greater than 65 mmHg Trend CVP Agree with maintenance IV fluids at [address] Terrazas catheter Frequent urine output monitoring Trend daily BMP Trend potassium No acute need for emergent renal replacement therapy at this time Would consider adding clindamycin if her shock worsens or if she clinically worsens or does not improve tomorrow. Would consider reimaging or consulting surgical services if she acutely decompensated into refractory shock Disposition: Remain in ICU. Critically ill. Critical care medicine will follow along with you as long as the patient remains in septic shock. This patient remains critically ill with one or more organ systems which are or may become a threat to life. I have spent in excess of 64 minutes discontinuously in the care and management of this patient. This time is exclusive of procedures, and includes, but is not limited to, evaluation of the patient, review of the medical record, discussions with family, consultants, nursing staff, or respiratory therapy, and documentation in the medical record. Waqas Perdomo MD Jul 22, 2017 20:54
[2017-07-22] MEDS: SODIUM CHLORIDE 0.9% FLUSH 10 ML FLUSH IV FLUSH SCH (21:00)
[2017-07-22] MEDS ORDERED: TERBUTALINE INJ 1 MG/ML AMP SQ PRN (21:00)
[2017-07-22] MEDS: INSULIN ASPART SUPPLEMENTAL SCALE SQ SCH (21:00)
[2017-07-22] MEDS: FAMOTIDINE 20 MG TAB PO SCH (21:00)
[2017-07-22] MEDS: DOCUSATE SODIUM 50 MG/SENNA 8.6 MG TAB PO SCH (21:00)
[2017-07-22] MEDS: NOREPINEPHRINE-DEXTROSE DRIP 250 ML IV PRN (21:01)
[2017-07-22 21:53] LABS: LACTIC ACID SEPSIS PROTOCOL 3.7 mmol/L (0.4-2.0)
--- NOTE | 2017-07-22 22:16 | PD.PROCEDR ---
Procedure Note Procedure Central Line Procedure Note Left subclavian 7 Vietnamese 20 cm triple-lumen catheter Diagnosis: Septic shock Indications: Need for highly potent vasoactive substances Consent: Obtained Anesthesia: Lidocaine 1% locally Description of the Procedure: The patient was placed in the supine, mild- Trendelenburg position. The area was prepped and draped sterilely. A 19g needle was inserted under negative pressure aspiration and dark venous blood was obtained. A guidewire was inserted easily without resistance. A small incision was made using a #11 blade. Using a modified Seldinger technique, the dilator and 7 Vietnamese, 20 cm catheter were advanced over the guidewire without resistance. All ports were aspirated and flushed, and had brisk blood return. The line was secured at the skin using a non-suture StatLock device. A Biopatch and Transparent sterile dressing were applied. There were no immediate complications noted. There was minimal EBL. The patient tolerated the procedure well. Ultrasound guidance was not used for this procedure. A Chest x-ray has been ordered. I personally performed the procedure. Waqas Perdomo MD Jul 22, 2017 22:16
--- NOTE | 2017-07-22 22:31 | RADRPT ---
EXAM DATE/TIME: 07/22/2017 22:10 [place] COMPARISON: CHEST SINGLE AP, July 22, 2017, 13:01. INDICATIONS : Evaluate for left sided central line placement. MEDICAL HISTORY : None. SURGICAL HISTORY : None. ENCOUNTER: Subsequent ACUITY: 1 day PAIN SCORE: Non-responsive. LOCATION: chest FINDINGS: A single view of the chest demonstrates the lungs to be symmetrically aerated without evidence of mas s, infiltrate or effusion. The cardiomediastinal contours are unremarkable. Osseous structures are intact. No pneumothorax. CONCLUSION: No acute disease. Left subclavian central line with tip in the SVC. Jax De Leon MD on July 22, 2017 at 22:28 Board Certified Radiologist. This report was verified electronically.
[2017-07-22] MEDS: PIPERACIL-TAZO 2.25 GM PREMIX 50 ML IV SCH (23:22)
[2017-07-22] MEDS: traMADol HCL 50 MG TAB PO PRN (23:23)
--- NOTE | 2017-07-22 23:58 | EKG ---
Date Performed: 07/22/2017 Time Performed: 22:00:45 PTAGE: 62 years EKG: SINUS TACHYCARDIA WITH OCCASIONAL ECTOPIC PREMATURE COMPLEXES NONSPECIFIC T-WAVE ABNORMALIT Y ABNORMAL RHYTHM ECG PREVIOUS TRACING : 07/22/2017 13.04 Compared to previous tracing, rate has increased with non- specific ST/T wave changes DOCTOR: Tom hSaver Interpretating Date/Time 07/22/2017 23:57:08
[2017-07-23] VITALS (15 sets, daily range): BP systolic 88–122; BP diastolic 51–73; PULSE 106–120; RESP 18–22; TEMP 97.6–98.5; O2SAT 93–100
[2017-07-23 00:01] LABS: HEMATOCRIT 30.3 % (35.0-46.0); HEMOGLOBIN 9.8 GM/DL (11.6-15.3)
[2017-07-23] MEDS ORDERED: SODIUM CHLOR 0.9% 1000 ML INJ 1,000 ML IV ONE (00:15)
--- NOTE | 2017-07-23 00:21 | EKG ---
Date Performed: 07/22/2017 Time Performed: 13:04:47 PTAGE: 62 years EKG: Sinus rhythm EARLY REPOLARIZATION Since the PREVIOUS TRACING , no significant change noted DOCTOR: Tom Shaver Interpretating Date/Time 07/23/2017 00:20:06
[2017-07-23] MEDS: MORPHINE SULFATE 2 MG/ML SYRINGE IV PUSH PRN ×3 (02:45→22:11)
[2017-07-23] MEDS: NOREPINEPHRINE-DEXTROSE DRIP 250 ML IV PRN ×4 (03:23→22:12)
[2017-07-23] MEDS: PIPERACIL-TAZO 2.25 GM PREMIX 50 ML IV SCH ×3 (03:23→18:12)
[2017-07-23] MEDS: traMADol HCL 50 MG TAB PO PRN (03:39)
[2017-07-23] MEDS: CHLORHEXIDINE GLUCONATE 2 % 1 PACK (2 CLOTHS)(taper/protocol) TOPICAL SCH (04:00)
[2017-07-23] MEDS: LEVOTHYROXINE SODIUM 100 MCG TAB PO SCH (05:22)
[2017-07-23] MEDS: LEVOTHYROXINE SODIUM 75 MCG TAB PO SCH (05:22)
[2017-07-23] MEDS: VASOPRESSIN 40 U/D5W 100 ML Titrate, Post Cardiac Surgery IV PRN ×4 (06:48→22:12)
[2017-07-23 07:25] LABS: HEMATOCRIT 31.6 % (35.0-46.0); HEMOGLOBIN 10.1 GM/DL (11.6-15.3); MEAN CELL VOLUME 85.8 FL (80.0-100.0); MEAN CORPUSCULAR HEMOGLOBIN 27.4 PG (27.0-34.0); MEAN CORPUSCULAR HGB CONC 31.9 % (32.0-36.0); MEAN PLATELET VOLUME 6.5 FL (7.0-11.0); PLATELET COUNT 365 TH/MM3 (150-450); RED BLOOD COUNT 3.69 MIL/MM3 (4.00-5.30); RED CELL DISTRIBUTION WIDTH 15.3 % (11.6-17.2); WHITE BLOOD COUNT 8.4 TH/MM3 (4.0-11.0)
[2017-07-23 07:41] LABS: ALBUMIN 1.8 GM/DL (3.4-5.0); ALKALINE PHOSPHATASE 108 U/L (45-117); ALT (GPT) 11 U/L (10-53); AST (GOT) 14 U/L (15-37); BICARBONATE 13.9 MEQ/L (21.0-32.0); BLOOD UREA NITROGEN 58 MG/DL (7-18); CALCIUM 8.3 MG/DL (8.5-10.1); CHLORIDE 115 MEQ/L (98-107); CREATININE 2.59 MG/DL (0.50-1.00); GLOMERULAR FILTRATION RATE 19 ML/MIN (>89); GLUCOSE,RANDOM 81 MG/DL (74-106); RANDOM VANCOMYCIN 9.6 COMMENT; SODIUM (NA) 142 MEQ/L (136-145); TOTAL BILIRUBIN ADULT 0.5 MG/DL (0.2-1.0); TOTAL PROTEIN 4.8 GM/DL (6.4-8.2)
[2017-07-23] MEDS: INSULIN ASPART SUPPLEMENTAL SCALE SQ SCH ×4 (07:58→21:00)
[2017-07-23] MEDS: SODIUM CHLOR 0.9% 1000 ML INJ 1,000 ML IV SCH (07:58)
[2017-07-23] MEDS: SODIUM CHLORIDE 0.9% FLUSH 10 ML FLUSH IV FLUSH SCH ×2 (07:58→22:10)
[2017-07-23] MEDS ORDERED: PHARMACY ORDERED LAB ONE (08:00)
[2017-07-23 08:19] LABS: BANDS 21 % (0-6); LYMPHOCYTES 8 % (9-44); METAMYELOCYTES 1 % (0-1); MONOCYTES 10 % (0-8); NEUTROPHIL # MANUAL DIFF 6.8 TH/MM3 (1.8-7.7); POLYS (SEG NEUTROPHILS) 59 % (16-70)
[2017-07-23] MEDS: ONDANSETRON HCL 4 MG/2 ML VIAL IVP PRN ×2 (08:38→22:11)
[2017-07-23] MEDS: FAMOTIDINE 20 MG TAB PO SCH ×2 (08:48→22:10)
[2017-07-23] MEDS: DOCUSATE SODIUM 50 MG/SENNA 8.6 MG TAB PO SCH ×2 (08:48→22:10)
[2017-07-23] MEDS: MULTIVITAMIN-OPHTHALMIC 1 TAB PO SCH (08:48)
[2017-07-23] MEDS: CALCIUM/VITAMIN D 250 MG/125 U TAB PO SCH (08:48)
[2017-07-23] MEDS: BUDESONIDE 9 MG PO SCH (08:48)
[2017-07-23] MEDS ORDERED: VANCOMYCIN INJ 750 MG in SODIUM CHLOR 0.9% 250 ML INJ 250 ML IV SCH (09:00)
[2017-07-23] MEDS ORDERED: PIOGLITAZONE HCL 15 MG TAB PO SCH (09:00)
--- NOTE | 2017-07-23 09:42 | HHI.FPPN ---
Subjective Remarks No acute events overnight. Patient continues to complain of R sided chest/ abdominal pain. Patient is unable to provide much history due to underlying developmental delay. Her BP has been improving this morning and was 106/70 while in the room. HR 113. Nursing staff reports they have been titrating down on the Vasopressin. (Jeffrey Taylor MD R1) Objective Vitals Vital Signs Date Time Temp Pulse Resp B/P (MAP) Pulse Ox O2 Delivery O2 Flow Rate FiO2 07/23/17 08:37 119/78 07/23/17 08:20 96 07/23/17 08:00 97.8 114 22 105/71 (82) 100 07/23/17 08:00 115 07/23/17 07:08 94/59 07/23/17 07:08 94/59 07/23/17 06:48 117 87/54 07/23/17 06:00 116 07/23/17 04:00 117 07/23/17 04:00 97.7 117 21 90/51 (64) 98 07/23/17 03:23 118 82/51 07/23/17 02:00 120 07/23/17 00:00 118 18 88/51 (63) 93 07/23/17 00:00 118 07/22/17 22:00 111 07/22/17 21:01 107 68/39 07/22/17 20:35 100 21 07/22/17 20:00 107 07/22/17 19:00 104 22 97/52 (67) 100 07/22/17 18:00 105 07/22/17 18:00 97.8 105 24 77/57 (64) 100 07/22/17 17:16 105 18 91/54 (66) 96 07/22/17 14:45 102 20 93/52 (66) 98 Room Air 07/22/17 13:34 96 18 97/57 (70) 100 Room Air 07/22/17 13:28 98 18 87/48 (61) 07/22/17 12:52 98 18 78/50 (59) 98 Room Air 07/22/17 12:37 98.7 20 I/O 07/22/17 07/22/17 07/22/17 07/23/17 07/23/17 07/23/17 07:00 15:00 23:00 07:00 15:00 23:00 Intake Total 3350 ml 50 ml 2100 ml Output Total 200 ml 10 ml Balance -200 ml 3340 ml 50 ml 2100 ml Intake IV Total 3350 ml 50 ml 2100 ml Output Urine Total 200 ml 10 ml # Voids 1 1 (Jeffrey Taylor MD R1) Result Diagram: 07/23/1752907/23/17529 Objective Remarks GENERAL: Elderly female, lying in bed, in distress from her flank pain HEENT: Normocephalic. Atraumatic. Pupils equal, round, reactive. Mucous membranes are moist but lips are very dry. NECK: Trachea is midline. There is no JVD. CHEST: Equal chest rise. Room air. CARDIOVASCULAR: Tachycardic rate, regular rhythm. No murmurs appreciated. RESPIRATORY: CTAB, no wheezes or crackles appreciated. ABDOMEN: Soft, nontender, nondistended. No guarding. There is significant tenderness to palpation over the right flank and edema and erythema with rubor and calor present from midline extending around to just medial to the right breast. This extends cephalad from approximately the fifth intercostal space down to approximately the ninth intercostal space. Bruising has not extended outside of previously marked boarders. There are no rashes or pustules in the area of edema. MUSCULOSKELETAL: Pulses 2+. No peripheral edema. NEUROLOGICAL: Awake and alert. Answers simple questions appropriately. No gross focal deficits. (Jeffrey Taylor MD R1) A/P Assessment and Plan Patient is a 62 year old female who presents to the ED via EMS for evaluation of right-sided abdominal, flank and back erythema, swelling and pain. Patient was found to be hypotensive in transit to hospital with systolic pressures in the 70s. Patient has received multiple fluid boluses with minimal improvement. Patient admitted for management of pain and hypotension. Critical care was consulted for pressure support as patient is in severe septic shock. Lactate on admission of 5.1, most recent lactate of 3.3. WBC significantly improved from 27.2 to 8.4. Has been on Vancomycin and Zosyn since admission. Discharge Planning Unclear at this point. (Jeffrey Taylor MD R1) Attending Attestation Pt. seen and examined; discussed with the medicine team. Pt. complains of back and abdominal pain, states she fell causing this injury, due to lightheadedness. She has difficulty turning [id number] due to pain. Tking fluids but not much food. Exam is as noted; ecchymosis right anterior lower ribs around to back; tender to palpation. Lips dry. Color pale. Minimal urine output, though BUN and Cr are improving, after 5 liters. BP improving on pressors. I agree with the findings and the plan as documented. Appreciate assistance from critical care. (Lamar Ortiz MD) Problem List: (1) Severe sepsis ICD Codes: A41.9 - Sepsis, unspecified organism; R65.20 - Severe sepsis without septic shock Status: Acute Plan: On admission, patient met severe sepsis criteria with HR 98, BP 78/50, WBC 27.2, Lactic acid 5.1. Source of infection: likely abdominal wall cellulitis Critical care consulted to assist in management. Central venous catheter placed. Currently requiring Vasopressin for BP support. WBC improved to 8.4 on 07/23 Microbiology: * Blood culture pending. * Urine culture pending Imaging: * CT Abdomen/Pelvis 07/22: Edema seen throughout the subcutaneous tissues at the right upper abdomen extending from the midline anteriorly and posterior along the right lateral aspect of the abdomen. No focal fluid collection is seen. Inflammatory/infectious processes versus post traumatic change in the appropriate history. * CXR on 07/22: No acute disease * Chest CT: No acute disease * Head CT: No acute disease Medications: * NS Bolus x4 * NS at 140 ml/hr. * Zosyn 4.5gm IV x1 received in ED. * Vancomycin 1gm IV x1 received in ED. * Zosyn 2.25gm IV q8hr ordered. Renal dosing. * Vancomycin Pharmacy Consult placed for continued dosing * Vasopressin protocol (2) Hypotension ICD Codes: I95.9 - Hypotension, unspecified Status: Acute Plan: See Plan for Severe Sepsis. (3) Abdominal pain ICD Codes: R10.9 - Abdominal pain Status: Acute Plan: Patient with chronic abdominal pain. She is established with Dr. Barrera. Patient has had work-up including EGD and colonoscopies but specific diagnosis not found during chart review. May or may not currently be taking Uceris and Liada. She presents with worsening "pain in stomach and of stomach area." On exam, patient has large erythematous area over right upper quadrant, extending over right flank to right mid-back. Area with some bluish discoloration anteriorly. Skin feels taut and warm and is very tender to the touch. Labs: * 07/22: WBC 27.2 with 78% neurophils. Lactic acid 5.1 with repeat 2.9. Lipase 30. * 07/23: WBC 8.4, Lactic acid 3.3 Imaging: * CT Abdomen/Pelvis 07/22: Edema seen throughout the subcutaneous tissues at the right upper abdomen extending from the midline anteriorly and posterior along the right lateral aspect of the abdomen. No focal fluid collection is seen. Inflammatory/infectious processes versus post traumatic change in the appropriate history. Studies: * Hemoccult pending. Medications: * Zosyn 4.5gm IV x1 received in ED. * Vancomycin 1gm IV x1 received in ED. * Zosyn 2.25gm IV q8hr ordered. Renal dosing. * Vancomycin Pharmacy Consult placed for next dosing. * Acetaminophen 650mg q6hr PO PRN Pain 1-2. * Tramadol 50mg q6hr PO PRN Pain 3-5. * Tramadol 100mg q4hr PO PRN Pain 6-10. * Morphine 2mg IV PRN Breakthrough pain. (4) Acute kidney injury ICD Codes: N17.9 - Acute kidney failure, unspecified Status: Acute Plan: On admission, Cr 3.58 and BUN 64 with estimated GFR of 13. Per chart, patient with history of renal insufficiency. Creatine on 06/15/17: 1.12. Repeat CMP on 07/23 with improved renal function - Cr 2.59 and BUN 58 CPK pending Medication: * NS at 140 ml/hr. * Has received 4 L boluses since admission Orders: * Strict I&Os. (5) Chest pain ICD Codes: R07.9 - Chest pain, unspecified Plan: Patient with right-sided chest pain. ACS workup has been negative Pulmonary/respiratory work-up: * CXR 07/22: A single view of the chest demonstrates the lungs to be symmetrically aerated without evidence of mass, infiltrate or effusion. * CT Thorax/chest 07/22: No acute disease. * Influenza negative (6) Hypothyroidism ICD Codes: E03.9 - Hypothyroidism Status: Chronic Plan: Patient with history of hypothyroidism. * Continue home meds. (7) GERD (gastroesophageal reflux disease) ICD Codes: K21.9 - Gastroesophageal reflux disease Status: Acute Plan: Patient with history of GERD. * Continue home meds. (8) Fluid, Electrolyte, Nutrition, and Prophylaxis Status: Acute Plan: Fluid: * NS Bolus x4 * NS at 140 ml/hr. Electrolyte: * Monitor and replete as necessary. Nutrition: * Diabetic diet DVT Prophylaxis: * SCDs. * Hold chemical prophylaxis until bleed ruled out. (Jeffrey Taylor MD R1) Problem Qualifiers (1) Hypotension: Qualified Codes: I95.9 - Hypotension, unspecified Jeffrey Taylor MD R1 Jul 23, 2017 09:42 Lamar Ortiz MD Jul 23, 2017 12:41
[2017-07-23] MEDS ORDERED: VANCOMYCIN 1,000 MG/NS 250 ML IV ONE ×2 (11:00)
--- NOTE | 2017-07-23 15:11 | HHI.CCPN ---
Subjective Remarks/Hospital Course This is a 62-year-old female with a history of developmental delay and recurrent urinary tract infections who presents with new onset right-sided abdominal and flank pain. Per the [facility] service admission note this is been going on for approximately 4 weeks. Patient has a history of developmental delay and is difficult to get a complete history from her, no analysis with her on my evaluation. On my evaluation she endorses flank pain radiating around to her chest. She endorses subjective chills. Denies recent fevers to me. Also endorses nausea, vomiting. In the emergency department she was found to have significant erythema, rubor, dolor, and edema from approximately the fifth intercostal space down to the eighth or ninth intercostal space wrapping around from the midline in the back all the way around to just medial to the breast. CT scan of the abdomen and pelvis confirms significant subcutaneous edema, but this area of edema appears to be contained by intact fascial planes, particularly in the midline of the back. Laboratory evidence is significant for a white blood cell count of 27k, creatinine is 3.58, potassium 5.4, bicarb of 17.9, anion gap elevated at 15, BUN of 64, an initial lactate of 5.1. In the emergency department she received 3 L of crystalloid IV fluids. Despite this she is hypotensive with a mean arterial pressure of 51. Critical care medicine is consulted to evaluate manage her presumed septic shock secondary to severe cellulitis of the trunk. I have given her an additional liter of crystalloid and then placed central venous access, see separate procedure note for details. In addition her lactate is starting to clear and is now 2.9 with an more currently pending, however it is not clearing fast enough and she remains oliguric. I placed a Scales for accurate hourly I's and O's. The remainder of the review systems for the patient is negative except documented in the HPI, although this is severely limited by her baseline developmental delay. Subjective 07/23: Patient remains on vasopressors, noted metabolic acidosis, bicarbonate level of 15. Sodium bicarbonate infusion initiated. Objective Vital Signs Date Time Temp Pulse Resp B/P (MAP) Pulse Ox O2 Delivery O2 Flow Rate FiO2 07/23/17 13:41 104/68 07/23/17 12:00 97.6 110 20 100 07/22/17 20:35 21 07/22/17 14:45 Room Air Intake and Output 07/23/17 07/23/17 07/24/17 08:00 16:00 00:00 Intake Total 3150 ml 600 ml Balance 3150 ml 600 ml Result Diagram: 07/23/17 0530 07/23/17 0530 Other Results Microbiology Date/Time Source Procedure Growth Status 07/22/17 20:10 Nasal Washing Influenza Types A,B Antigen (DELMI) - Final NEGATIVE FOR FLU A AND B ANTIGEN.... Complete Imaging Last Impressions Head CT 07/22/17 1253 Signed Impressions: Service Date/Time: Saturday, July 22, 2017 13:26 - CONCLUSION: No acute disease. Derrick Henry MD Chest X-Ray 07/22/17 1253 Signed Impressions: Service Date/Time: Saturday, July 22, 2017 13:01 - CONCLUSION: No acute disease. Derrick Henry MD Chest CT 07/22/17 0000 Signed Impressions: Service Date/Time: Saturday, July 22, 2017 13:30 - CONCLUSION: No acute disease. Derrick Henry MD Abdomen/Pelvis CT 07/22/17 0000 Signed Impressions: Service Date/Time: Saturday, July 22, 2017 13:30 - CONCLUSION: Edema seen throughout the subcutaneous tissues at the right upper abdomen extending from the midline anteriorly and posterior along the right lateral aspect of the abdomen. No focal fluid collection is seen. Inflammatory/infectious processes versus post traumatic change in the appropriate history. Derrick Henry MD Objective Remarks GENERAL: Elderly female, lying in bed complaints of nausea HEENT: Normocephalic. Atraumatic. Pupils equal, round, reactive, conjugate. Mucous membranes are moist NECK: Trachea is midline. There is no JVD. CHEST: Equal chest rise. Room air. CARDIOVASCULAR: Tachycardic rate, regular rhythm. Continues on vasopressin and norepinephrine infusion ABDOMEN: Soft, nontender, nondistended. No guarding. There is significant tenderness to palpation over the right flank and edema and erythema with rubor and calor present from midline extending around to just medial to the right breast. This extends cephalad from approximately the fifth intercostal space down to approximately the ninth intercostal space. There is no fluctuance. There is no mass. The area of erythema is blanchable. There are no rashes or pustules in the area of edema. MUSCULOSKELETAL: Pulses 2+. No peripheral edema. NEUROLOGICAL: RASS 0 to -1. Follows commands in all 4 extremities. Answers simple questions. Unclear neurologic baseline, but this appears to be baseline for the patient. Difficult to answer complex questions. No gross focal deficits. Urinary Catheter: Yes Date of Insertion: Jul 22, 2017 A/P Assessment and Plan Assessment: 62-year-old female with what appears to be a severe right flank cellulitis. Unclear the origin of cellulitis is as I do not see any trauma, or abrasions that would be a site or nidus for infection. Certainly unilateral erythema in what appears to be a dermatomal distribution raises concern over herpes zoster infection, however there are no lesions at all within the area of edema and erythema, and this looks much more like a cellulitis then any dermatomal rash. I agree with vancomycin and Zosyn as a choice of empiric antibiotic coverage. Agree with blood cultures. Patient clearly is in septic shock with elevated lactate and endorgan damage. We will continue to hydrate her with IV fluids as it still appears she is intravascularly volume deplete. If she continues to worsen or her shock does not improve, I would recommend adding clindamycin for toxin production, although this does not appear to be necrotizing soft tissue infection as by CT scan it appears to keep fascial planes intact. Remains very critically ill with life-threatening septic shock and multiple organ dysfunction. Active problems: Septic shock Right flank severe cellulitis Acute kidney injury Hyperkalemia Acute intravascular volume depletion Nausea and vomiting Hypothyroidism Plan: Plan by systems: Neurologic: Neuro checks per ICU protocol Avoid sedative type medications Tylenol 650 mg every 6 hours as needed for pain and/or temperature greater than 100.5 Tramadol for pain , consider Ofirmev Respiratory: Maintain O2 sat greater than 92% Incentive spirometry Duo nebs as needed Cardiovascular: Currently on norepinephrine and vasopressin to maintain map greater than 65, continue to wean Monitor CVP-currently 12 2 you to trend CVP Renal: Maintain scales Obtain urine eosinophils F/U FENA Nephrology consulted -- Strict I/Os FEN/GI: IV fluids changed to sodium bicarbonate Add Phenergan for nausea Continue Zofran 1 mg every 6 hours Heme/ID: Follow-up blood and urine culture Monitor CBC Continue empiric antibiotics Endocrine: Continue levothyroxine 112 mcg/day Glucose monitoring per ICU protocol. -- SSI Prophylaxis: GI Prophylaxis Famotidine DVT Prophylaxis -- SCDs Lines: Central line placed on 07/22. Peripheral IVs 2 Dispo: Level 3 follow-up Physician Rachael Johnston MD Jul 23, 2017 15:11
[2017-07-23] MEDS ORDERED: MAGNESIUM HYDROXIDE SUSP 30 ML CUP PO PRN (15:30)
[2017-07-23] MEDS ORDERED: PROMETHAZINE INJ 25 MG/ML VIAL IV-CENTRAL PRN (15:30)
[2017-07-23] MEDS: SODIUM BICARBONATE 8.4% INJ 150 MEQ in DEXTROSE 5% IN WATE 1000ML INJ 1,000 ML IV SCH ×2 (16:40)
[2017-07-23 17:34] LABS: AMORPHOUS SEDIMENT, URINE OCC; BACTERIA, URINE RARE /hpf; BILIRUBIN, URINE NEG (NEG); BLOOD, URINE MOD (NEG); GLUCOSE,URINE NEG (NEG); KETONE, URINE NEG (NEG); MUCUS URINE FEW /lpf (OCC); NITRITE,URINE NEG (NEG); PH, URINE 5.5 (5.0-8.5); SQUAMOUS EPITHELIAL CELL URINE 2 /hpf (0-5); TRANSITIONAL EPI CELLS, URINE <1 /hpf; URINE COLOR YELLOW (YELLW/STRAW); URINE LEUKOCYTE ESTERASE NEG (NEG)
[2017-07-23 17:38] LABS: CREATININE, RANDOM URINE 73.1 MG/DL
[2017-07-24] VITALS (37 sets, daily range): BP systolic 0–138; BP diastolic 0–81; PULSE 69–144; RESP 0–33; TEMP 97.8–99.6; O2SAT 0–100
[2017-07-24] MEDS: MORPHINE SULFATE 2 MG/ML SYRINGE IV PUSH PRN (01:28)
[2017-07-24] MEDS: PIPERACIL-TAZO 2.25 GM PREMIX 50 ML IV SCH (01:28)
[2017-07-24] MEDS ORDERED: SODIUM BICARBONATE 8.4% INJ 50 MEQ/50 ML SYR ONE (02:27)
[2017-07-24] MEDS ORDERED: ETOMIDATE 40 MG/20 ML VIAL ONE (02:28)
[2017-07-24] MEDS ORDERED: DIGOXIN 0.5 MG/2 ML VIAL IVS STA (02:53)
[2017-07-24 02:54] LABS: HEMATOCRIT 27.2 % (35.0-46.0); HEMOGLOBIN 8.9 GM/DL (11.6-15.3); MEAN CELL VOLUME 82.9 FL (80.0-100.0); MEAN CORPUSCULAR HEMOGLOBIN 27.1 PG (27.0-34.0); MEAN CORPUSCULAR HGB CONC 32.6 % (32.0-36.0); MEAN PLATELET VOLUME 6.4 FL (7.0-11.0); PLATELET COUNT 282 TH/MM3 (150-450); RED BLOOD COUNT 3.28 MIL/MM3 (4.00-5.30); RED CELL DISTRIBUTION WIDTH 15.2 % (11.6-17.2); WHITE BLOOD COUNT 31.3 TH/MM3 (4.0-11.0)
[2017-07-24] MEDS ORDERED: CALCIUM GLUCONATE INJ 2 GM in DEXTROSE 5% IN WATER 100ML INJ 100 ML IV ONE ×2 (03:00)
[2017-07-24] MEDS ORDERED: TERBUTALINE INJ 1 MG/ML AMP SQ PRN ×2 (03:00→17:45)
[2017-07-24 03:05] LABS: INTERNATIONAL NORMALIZED RATIO 1.5 RATIO; PROTHROMBIN TIME - PATIENT 15.6 SEC (9.8-11.6)
[2017-07-24] MEDS ORDERED: SODIUM CHLOR 0.9% 1000 ML INJ 1,000 ML IV ONE ×2 (03:15→17:45)
[2017-07-24] MEDS ORDERED: MIDAZOLAM 100 MG/100 ML INJ 100 ML IV PRN (03:15)
[2017-07-24 03:19] LABS: PHOSPHORUS 4.8 MG/DL (2.5-4.9)
[2017-07-24 03:23] LABS: BANDS 20 % (0-6); LYMPHOCYTES 2 % (9-44); METAMYELOCYTES 6 % (0-1); MONOCYTES 3 % (0-8); NEUTROPHIL # MANUAL DIFF 29.7 TH/MM3 (1.8-7.7); POLYS (SEG NEUTROPHILS) 69 % (16-70)
[2017-07-24 03:24] LABS: TROPONIN I 0.14 NG/ML (0.02-0.05)
[2017-07-24 03:25] LABS: ALBUMIN 1.4 GM/DL (3.4-5.0); ALKALINE PHOSPHATASE 94 U/L (45-117); ALT (GPT) 20 U/L (10-53); AST (GOT) 42 U/L (15-37); BICARBONATE 22.2 MEQ/L (21.0-32.0); BLOOD UREA NITROGEN 61 MG/DL (7-18); CHLORIDE 110 MEQ/L (98-107); CREATININE 2.03 MG/DL (0.50-1.00); GLOMERULAR FILTRATION RATE 25 ML/MIN (>89); GLUCOSE,RANDOM 169 MG/DL (74-106); OVALOCYTES 1+ (NORMAL); RANDOM VANCOMYCIN 15.4 COMMENT; SODIUM (NA) 142 MEQ/L (136-145); TOTAL BILIRUBIN ADULT 0.4 MG/DL (0.2-1.0); TOTAL PROTEIN 4.1 GM/DL (6.4-8.2); TOXIC GRANULATION 2+ (NORMAL)
[2017-07-24] MEDS: PHENYLEPHRINE INJ 80 MG in DEXTROSE 5% IN WATE 500 ML INJ 492 ML IV PRN ×12 (03:36→23:58)
[2017-07-24] MEDS: fentaNYL DRIP 250 ML IV PRN ×2 (03:36→23:21)
[2017-07-24] MEDS: CHLORHEXIDINE GLUCONATE 2 % 1 PACK (2 CLOTHS)(taper/protocol) TOPICAL SCH (04:00)
[2017-07-24] MEDS ORDERED: AMIODARONE INJ 150 MG in DEXTROSE 5% IN WATER 100ML INJ 97 ML IV ONE ×2 (04:24)
[2017-07-24] MEDS ORDERED: AMIODARONE INJ 450 MG in DEXTROSE 5% IN WATE(EXCEL) INJ 241 ML IV PRN ×2 (04:34)
[2017-07-24] MEDS: LEVOTHYROXINE SODIUM 75 MCG TAB PO SCH (04:41)
[2017-07-24] MEDS: LEVOTHYROXINE SODIUM 100 MCG TAB PO SCH (04:42)
--- NOTE | 2017-07-24 04:42 | HHI.PR ---
Addendum to Inpatient Note Addendum Reason: Additional Documentation Additional Information Called to evaluate patient for agonal respirations. Patient essentially unresponsive with agonal respirations. She was on Levophed 10 mics per minute and vasopressin GTT. Heart rate noted to be 160s A. fib with RVR. Patient was noted to have significant metabolic acidosis previously and was on a bicarb drip. Significant increase in discoloration over right flank which had now extended up the chest wall to the breast as well as towards the groin on the right. Concern regarding possible necrotizing fasciitis. Emergently intubated and placed on mechanical ventilation. Ordered digoxin 0.5 mg IV stat as well as El-Synephrine drip in order to wean down Levophed due to A. fib with RVR. On IV Zosyn. Added IV clindamycin. Blood cultures and stat labs ordered. ID and general surgery consult requested. Placed left axillary A-line to initiate Flowtrack for hemodynamic monitoring. 2 g of IV bicarb push as well as 2 L crystalloid bolus ordered. Awaiting CT chest abdomen pelvis which are ordered stat. Stat labs reviewed which were as follows. Laboratory Tests Test 07/23/17 05:30 07/23/17 06:40 07/23/17 08:00 07/23/17 16:05 White Blood Count 8.4 TH/MM3 Red Blood Count 3.69 MIL/MM3 Hemoglobin 10.1 GM/DL Hematocrit 31.6 % Mean Corpuscular Volume 85.8 FL Mean Corpuscular Hemoglobin 27.4 PG Mean Corpuscular Hemoglobin Concent 31.9 % Red Cell Distribution Width 15.3 % Platelet Count 365 TH/MM3 Mean Platelet Volume 6.5 FL CBC Comment AUTO DIFF Differential Total Cells Counted 100 Neutrophils % (Manual) 59 % Band Neutrophils % 21 % Lymphocytes % 8 % Monocytes % 10 % Eosinophils % 1 % Neutrophils # (Manual) 6.8 TH/MM3 Metamyelocytes 1 % Differential Comment FINAL DIFF MANUAL Platelet Estimate NORMAL Platelet Morphology Comment NORMAL Crenated Cell 1+ Blood Urea Nitrogen 58 MG/DL Creatinine 2.59 MG/DL Random Glucose 81 MG/DL Total Protein 4.8 GM/DL Albumin 1.8 GM/DL Calcium Level 8.3 MG/DL Alkaline Phosphatase 108 U/L Aspartate Amino Transf (AST/SGOT) 14 U/L Alanine Aminotransferase (ALT/SGPT) 11 U/L Total Bilirubin 0.5 MG/DL Sodium Level 142 MEQ/L Potassium Level 4.3 MEQ/L Chloride Level 115 MEQ/L Carbon Dioxide Level 13.9 MEQ/L Anion Gap 13 MEQ/L Estimat Glomerular Filtration Rate 19 ML/MIN Random Vancomycin Level 9.6 COMMENT 9.5 COMMENT Lactic Acid Level 3.3 mmol/L Total Creatine Kinase 50 U/L Urine Color YELLOW Urine Turbidity CLOUDY Urine pH 5.5 Urine Specific Duff 1.018 Urine Protein 30 mg/dL Urine Glucose (UA) NEG mg/dL Urine Ketones NEG mg/dL Urine Occult Blood MOD Urine Nitrite NEG Urine Bilirubin NEG Urine Urobilinogen LESS THAN 2.0 MG/DL Urine Leukocyte Esterase NEG Urine RBC LESS THAN 1 /hpf Urine WBC 2 /hpf Urine Squamous Epithelial Cells 2 /hpf Urine Transitional Epithelial Cells <1 /hpf Urine Amorphous Sediment OCC Urine Bacteria RARE /hpf Urine Mucus FEW /lpf Microscopic Urinalysis Comment CATH-CULTURE IND Urine Eosinophils NONE SEEN /HPF Urine Random Creatinine 73.1 MG/DL Urine Random Sodium 45 MEQ/L Test 07/24/17 02:40 07/24/17 04:15 White Blood Count 31.3 TH/MM3 Red Blood Count 3.28 MIL/MM3 Hemoglobin 8.9 GM/DL Hematocrit 27.2 % Mean Corpuscular Volume 82.9 FL Mean Corpuscular Hemoglobin 27.1 PG Mean Corpuscular Hemoglobin Concent 32.6 % Red Cell Distribution Width 15.2 % Platelet Count 282 TH/MM3 Mean Platelet Volume 6.4 FL CBC Comment AUTO DIFF Differential Total Cells Counted 100 Neutrophils % (Manual) 69 % Band Neutrophils % 20 % Lymphocytes % 2 % Monocytes % 3 % Neutrophils # (Manual) 29.7 TH/MM3 Metamyelocytes 6 % Differential Comment FINAL DIFF MANUAL Toxic Granulation 2+ Platelet Estimate NORMAL Platelet Morphology Comment NORMAL Ovalocytes 1+ Prothrombin Time 15.6 SEC Prothromb Time International Ratio 1.5 RATIO Activated Partial Thromboplast Time 45.0 SEC Blood Urea Nitrogen 61 MG/DL Creatinine 2.03 MG/DL Random Glucose 169 MG/DL Total Protein 4.1 GM/DL Albumin 1.4 GM/DL Calcium Level 8.0 MG/DL Alkaline Phosphatase 94 U/L Aspartate Amino Transf (AST/SGOT) 42 U/L Alanine Aminotransferase (ALT/SGPT) 20 U/L Total Bilirubin 0.4 MG/DL Sodium Level 142 MEQ/L Potassium Level 5.0 MEQ/L Chloride Level 110 MEQ/L Carbon Dioxide Level 22.2 MEQ/L Anion Gap 10 MEQ/L Estimat Glomerular Filtration Rate 25 ML/MIN Lactic Acid Level 3.4 mmol/L Phosphorus Level 4.8 MG/DL Total Creatine Kinase 954 U/L Creatine Kinase MB 14.2 NG/ML Creatine Kinase MB % 1.5 % Troponin I 0.14 NG/ML Thyroid Stimulating Hormone 3rd Gen 0.083 uIU/ML Random Vancomycin Level 15.4 COMMENT Blood Gas Puncture Site ART LINE Blood Gas Patient Temperature 98.6 Blood Gas HCO3 16 mmol/L Blood Gas Base Excess -6.6 mmol/L Blood Gas Oxygen Saturation 95 % Arterial Blood pH 7.50 Arterial Blood Partial Pressure CO2 21 mmHg Arterial Blood Partial Pressure O2 236 mmHg Arterial Blood Oxygen Content 12.9 Vol % Arterial Blood Carboxyhemoglobin 0.2 % Arterial Blood Methemoglobin 2.7 % Blood Gas Hemoglobin 9.2 G/DL Oxygen Delivery Device VENTILATOR Blood Gas Ventilator Setting PRVC/AC 24/500/5PEEP Blood Gas Inspired Oxygen 50 % Ventilator settings adjusted following review of ABG to PRVC tidal volume 500 rate 18 FiO2 50% PEEP +5, I time 0.8 seconds. PEx: HEENT/ Neuro: Encephalopathic, pupils 2 mm bilaterally reacting actively to light., orally intubated, Pallor present, no icterus, tongue/ mucosa moist Neck: No JVD Chest/Pulm: on mech vent, good air entry bilaterally, no wheezing or crackles. Scattered rhonchi CVS: S1-S2 regular, no murmur GI/abdomen: soft, nontender, bowel sounds not appreciated. Significant discoloration involving the right flank extending up to the right breast/right chest wall as well as right groin anteriorly beyond previously marked area over right flank. Extremities: warm bilaterally, no edema Condition critical with suspected necrotizing fasciitis versus cellulitis right flank/chest wall/groin with multiorgan failure . Time spent on critical care excluding procedures 30 minutes Artis De La Torre MD Jul 24, 2017 04:42
--- NOTE | 2017-07-24 04:43 | RADRPT ---
EXAM DATE/TIME: 07/24/2017 04:28 [facility] COMPARISON: CHEST SINGLE AP, July 22, 2017, 22:10. INDICATIONS : E-T tube placement. Left subclavian tube placement. Nasogastric tube placement. MEDICAL HISTORY : None. SURGICAL HISTORY : None. ENCOUNTER: Subsequent ACUITY: 3 days PAIN SCORE: Non-responsive. LOCATION: Bilateral chest FINDINGS: A single view of the chest demonstrates the lungs remains clear without effusion. Heart size is jai l. Left subclavian central venous catheter is unchanged in position. Interval placement of an endotra cheal and nasogastric tube. The former is identified with the tip at the clavicular heads at the latt er entering the stomach extending off the inferior aspect of the image. Dextroscoliosis of the dorsal spine may be positional. CONCLUSION: 1. Endotracheal and nasogastric tubes appear to be appropriately positioned. Stable position of left subclavian central venous catheter. 2. Lungs remain clear. Jerome Brady MD on July 24, 2017 at 4:39 Board Certified Radiologist. This report was verified electronically.
--- NOTE | 2017-07-24 04:45 | PD.PROCEDR ---
Procedure Note Procedure Procedure: Endotracheal intubation Preop diagnosis: Septic shock, multiorgan failure, right flank cellulitis Postop diagnosis: Same Indication: Agonal respirations with unresponsiveness/encephalopathy, metabolic acidosis with impending respiratory arrest Sedation used: Etomidate 20 mg, fentanyl 100 mcg, rocuronium 50 mg IV Procedure: Patient was preoxygenated with 100% oxygen via Ambu bag with bag mask ventilation, following induction of sedation and neuromuscular blockade, direct laryngoscopy was performed using a Mac 4 blade with good visualization of vocal cords. An 8 Kyr[place]z ET tube was passed through the vocal cords under direct visualization up to the 22 centimeter aye and after inflating cuff of ET tube, correct placement was confirmed using bagging with good color change on CO2 detector, 5 point auscultation and chest rise with ventilation. Patient was connected to mechanical ventilation. Patient tolerated the procedure well with no immediate complications noted. Postprocedure chest x-ray was ordered. Artis De La Torre MD Jul 24, 2017 04:45
--- NOTE | 2017-07-24 04:46 | PD.PROCEDR ---
Procedure Note Procedure Procedure: Left axillary arterial catheter placement with ultrasound guidance Preop diagnosis: Septic shock, multiorgan failure Postop diagnosis: Same Anesthesia: 1% lidocaine for local infiltration anesthesia Procedure: After sterile prepping and draping using 1% lidocaine for local infiltration anesthesia, left axillary artery was visualized using ultrasound vessel finder and was cannulated using an introducer needle with bright pulsatile blood return. A guidewire was passed through the introducer needle without any resistance and the needle was then removed. A 12 cm 20-gauge arterial catheter was passed over the guidewire by modified Seldinger's technique up to the 12 cm aye and after removal of guidewire catheter was connected to transducer tubing with good waveform being obtained on the monitor. Biopatch was applied to the insertion site and catheter was sutured in place. Sterile Bi0-occlusive dressing was applied to the site. Patient tolerated the procedure well with no immediate complications noted. Artis De La Torre MD Jul 24, 2017 04:46
[2017-07-24] MEDS: AMIODARONE INJ 450 MG in SODIUM CHLOR 0.9% (EXCEL) INJ 241 ML IV PRN ×2 (06:00→15:58)
--- NOTE | 2017-07-24 06:16 | RADRPT ---
EXAM DATE/TIME: 07/24/2017 05:36 [facility] COMPARISON: CT THORAX W/O CONTRAST, July 22, 2017, 13:30. INDICATIONS : Possible right wall cellulitis. RADIATION DOSE: 6.11 CTDIvol (mGy) ; Combined studies - Thorax/Abdomen/Pelvis MEDICAL HISTORY : Hypertension. Diabetes mellitus type 2. SURGICAL HISTORY : Hysterectomy. ENCOUNTER: Subsequent ACUITY: 2 days PAIN SCALE: Non-responsive LOCATION: Right chest TECHNIQUE: Volumetric scanning of the chest was performed. Using automated exposure control and adjustment of t he mA and/or kV according to patient size, radiation dose was kept as low as reasonably achievable to obtain optimal diagnostic quality images. DICOM format image data is available electronically for r eview and comparison. Follow-up recommendations for detected pulmonary nodules are based at a minimum on nodule size and pa tient risk factors according to Fleischner Society Guidelines. FINDINGS: LUNGS: Developing dependent areas of consolidation, right greater than left. PLEURAE: Small right-sided effusion. MEDIASTINUM: The heart and great vessels demonstrate no acute abnormality. There is no mediastinal or hilar lymph adenopathy. AXILLAE: Within normal limits. No lymphadenopathy. MUSCULOSKELETAL: There is some stranding about the right lateral chest wall and regional musculature with fluid in the deep subcutaneous tissues adjacent to the latissimus muscle. This extends up into the right breast r egion and may represent an extensive cellulitis. MISCELLANEOUS: The visualized upper abdominal organs demonstrate no acute abnormality. CONCLUSION: 1. Stranding in the subcutaneous tissues about the right flank with fluid adjacent to the latissimus dorsi. Stranding extends up into the right breast. Findings could represent developing cellulitis. 2. In addition, there is now a small right-sided effusion with bilateral dependent atelectatic change marlon Brady MD on July 24, 2017 at 6:08 Board Certified Radiologist. This report was verified electronically.
--- NOTE | 2017-07-24 06:22 | RADRPT ---
EXAM DATE/TIME: 07/24/2017 05:36 [facility] COMPARISON: CT ABDOMEN & PELVIS W/O CONTRAST, July 22, 2017, 13:30. INDICATIONS : Right abdominal wall cellutlitis. ORAL CONTRAST: No oral contrast ingested. RADIATION DOSE: 6.11 CTDIvol (mGy) ; Combined studies - Thorax/Abdomen/Pelvis MEDICAL HISTORY : Hypertension. Diabetes mellitus type 2. SURGICAL HISTORY : Hysterectomy. ENCOUNTER: Subsequent ACUITY: 2 days PAIN SCALE: Non-responsive LOCATION: Right abdomen TECHNIQUE: Volumetric scanning of the abdomen and pelvis was performed. Using automated exposure control and ad justment of the mA and/or kV according to patient size, radiation dose was kept as low as reasonably achievable to obtain optimal diagnostic quality images. DICOM format image data is available electro nically for review and comparison. FINDINGS: LOWER LUNGS: Developing right-sided small effusion with bilateral atelectatic changes/consolidation, right greater than left LIVER: Homogeneous density without lesion. There is no dilation of the biliary tree. Patient is status post cholecystectomy with surgical clips in the gallbladder bed. SPLEEN: Normal size without lesion. PANCREAS: Within normal limits. KIDNEYS: Normal in size and shape. There is no mass, stone, or hydronephrosis. ADRENAL GLANDS: Within normal limits. VASCULAR: There is no aortic aneurysm. BOWEL/MESENTERY: The stomach, small bowel, and colon demonstrate no acute abnormality. There is no free intraperitone al air or fluid. ABDOMINAL WALL: There some stranding in the subcutaneous tissues about the hips bilaterally, slightly worse on the ri ght. In addition, the stranding extends up into the right flank region and right breast with unorgani zed fluid adjacent to the latissimus dorsi muscle. The muscle itself also appears to be somewhat prom inent. Findings are concerning for a developing cellulitis and myositis. RETROPERITONEUM: There is no lymphadenopathy. BLADDER: No wall thickening or mass. REPRODUCTIVE: Within normal limits. INGUINAL: There is no lymphadenopathy or hernia. MUSCULOSKELETAL: Dextroscoliosis of the lumbar spine. CONCLUSION: 1. CT findings concerning for a right sided cellulitis and developing myositis. There is some asymmet pearl prominence of the latissimus dorsi muscle on the right. Unorganized fluid in the deep subcutaneou s tissues adjacent to the muscle belly. No drainable fluid collection, however. 2. Developing dependent areas of consolidation, right greater than left with an associated small righ t-sided effusion. Jerome Brady MD on July 24, 2017 at 6:14 Board Certified Radiologist. This report was verified electronically.
[2017-07-24] MEDS: SODIUM BICARBONATE 8.4% INJ 150 MEQ in DEXTROSE 5% IN WATE 1000ML INJ 1,000 ML IV SCH ×2 (06:30)
[2017-07-24] MEDS: CLINDAMYCIN 600 MG/NS PREMIX 50 ML IV SCH ×4 (07:36→20:23)
--- NOTE | 2017-07-24 07:42 | HHI.CCPN ---
Subjective Remarks/Hospital Course This is a 62-year-old female with a history of developmental delay and recurrent urinary tract infections who presents with new onset right-sided abdominal and flank pain. Per the [facility] service admission note this is been going on for approximately 4 weeks. Patient has a history of developmental delay and is difficult to get a complete history from her, no analysis with her on my evaluation. On my evaluation she endorses flank pain radiating around to her chest. She endorses subjective chills. Denies recent fevers to me. Also endorses nausea, vomiting. In the emergency department she was found to have significant erythema, rubor, dolor, and edema from approximately the fifth intercostal space down to the eighth or ninth intercostal space wrapping around from the midline in the back all the way around to just medial to the breast. CT scan of the abdomen and pelvis confirms significant subcutaneous edema, but this area of edema appears to be contained by intact fascial planes, particularly in the midline of the back. Laboratory evidence is significant for a white blood cell count of 27k, creatinine is 3.58, potassium 5.4, bicarb of 17.9, anion gap elevated at 15, BUN of 64, an initial lactate of 5.1. In the emergency department she received 3 L of crystalloid IV fluids. Despite this she is hypotensive with a mean arterial pressure of 51. Critical care medicine is consulted to evaluate manage her presumed septic shock secondary to severe cellulitis of the trunk. I have given her an additional liter of crystalloid and then placed central venous access, see separate procedure note for details. In addition her lactate is starting to clear and is now 2.9 with an more currently pending, however it is not clearing fast enough and she remains oliguric. I placed a [place] for accurate hourly I's and O's. The remainder of the review systems for the patient is negative except documented in the HPI, although this is severely limited by her baseline developmental delay. Subjective 07/23: Patient remains on vasopressors, noted metabolic acidosis, bicarbonate level of 15. Sodium bicarbonate infusion initiated. 07/24 Patient was intubated early this morning now on Vasopressin and Neosyn 300 mics in addition patient is on Amio and Bicarb drips. WBC increased 31. CT abd/pelvis showed right sided cellulites and developing myositis. Objective Vital Signs Date Time Temp Pulse Resp B/P (MAP) Pulse Ox O2 Delivery O2 Flow Rate FiO2 07/24/17 04:26 97 40 07/24/17 04:00 144 07/24/17 04:00 24 122/81 (95) 07/24/17 00:00 98.1 07/22/17 14:45 Room Air Result Diagram: 07/24/17 0240 07/24/17 0240 Other Results Laboratory Tests Test 07/23/17 08:00 07/23/17 16:05 07/24/17 02:40 07/24/17 04:15 Total Creatine Kinase 50 U/L 954 U/L Random Vancomycin Level 9.5 COMMENT 15.4 COMMENT Urine Color YELLOW Urine Turbidity CLOUDY Urine pH 5.5 Urine Specific [place] 1.018 Urine Protein 30 mg/dL Urine Glucose (UA) NEG mg/dL Urine Ketones NEG mg/dL Urine Occult Blood MOD Urine Nitrite NEG Urine Bilirubin NEG Urine Urobilinogen LESS THAN 2.0 MG/DL Urine Leukocyte Esterase NEG Urine RBC LESS THAN 1 /hpf Urine WBC 2 /hpf Urine Squamous Epithelial Cells 2 /hpf Urine Transitional Epithelial Cells <1 /hpf Urine Amorphous Sediment OCC Urine Bacteria RARE /hpf Urine Mucus FEW /lpf Microscopic Urinalysis Comment CATH-CULTURE IND Urine Eosinophils NONE SEEN /HPF Urine Random Creatinine 73.1 MG/DL Urine Random Sodium 45 MEQ/L White Blood Count 31.3 TH/MM3 Red Blood Count 3.28 MIL/MM3 Hemoglobin 8.9 GM/DL Hematocrit 27.2 % Mean Corpuscular Volume 82.9 FL Mean Corpuscular Hemoglobin 27.1 PG Mean Corpuscular Hemoglobin Concent 32.6 % Red Cell Distribution Width 15.2 % Platelet Count 282 TH/MM3 Mean Platelet Volume 6.4 FL CBC Comment AUTO DIFF Differential Total Cells Counted 100 Neutrophils % (Manual) 69 % Band Neutrophils % 20 % Lymphocytes % 2 % Monocytes % 3 % Neutrophils # (Manual) 29.7 TH/MM3 Metamyelocytes 6 % Differential Comment FINAL DIFF MANUAL Toxic Granulation 2+ Platelet Estimate NORMAL Platelet Morphology Comment NORMAL Ovalocytes 1+ Prothrombin Time 15.6 SEC Prothromb Time International Ratio 1.5 RATIO Activated Partial Thromboplast Time 45.0 SEC Blood Urea Nitrogen 61 MG/DL Creatinine 2.03 MG/DL Random Glucose 169 MG/DL Total Protein 4.1 GM/DL Albumin 1.4 GM/DL Calcium Level 8.0 MG/DL Alkaline Phosphatase 94 U/L Aspartate Amino Transf (AST/SGOT) 42 U/L Alanine Aminotransferase (ALT/SGPT) 20 U/L Total Bilirubin 0.4 MG/DL Sodium Level 142 MEQ/L Potassium Level 5.0 MEQ/L Chloride Level 110 MEQ/L Carbon Dioxide Level 22.2 MEQ/L Anion Gap 10 MEQ/L Estimat Glomerular Filtration Rate 25 ML/MIN Lactic Acid Level 3.4 mmol/L Phosphorus Level 4.8 MG/DL Creatine Kinase MB 14.2 NG/ML Creatine Kinase MB % 1.5 % Troponin I 0.14 NG/ML Thyroid Stimulating Hormone 3rd Gen 0.083 uIU/ML Blood Gas Puncture Site ART LINE Blood Gas Patient Temperature 98.6 Blood Gas HCO3 16 mmol/L Blood Gas Base Excess -6.6 mmol/L Blood Gas Oxygen Saturation 95 % Arterial Blood pH 7.50 Arterial Blood Partial Pressure CO2 21 mmHg Arterial Blood Partial Pressure O2 236 mmHg Arterial Blood Oxygen Content 12.9 Vol % Arterial Blood Carboxyhemoglobin 0.2 % Arterial Blood Methemoglobin 2.7 % Blood Gas Hemoglobin 9.2 G/DL Oxygen Delivery Device VENTILATOR Blood Gas Ventilator Setting PRVC/AC 24/500/5PEEP Blood Gas Inspired Oxygen 50 % Imaging Last Impressions Chest X-Ray 07/24/17 0000 Signed Impressions: Service Date/Time: Monday, July 24, 2017 04:28 - CONCLUSION: 1. Endotracheal and nasogastric tubes appear to be appropriately positioned. Stable position of left subclavian central venous catheter. 2. Lungs remain clear. Jerome Brady MD Chest CT 07/24/17 0000 Signed Impressions: Service Date/Time: Monday, July 24, 2017 05:36 - CONCLUSION: 1. Stranding in the subcutaneous tissues about the right flank with fluid adjacent to the latissimus dorsi. Stranding extends up into the right breast. Findings could represent developing cellulitis. 2. In addition, there is now a small right-sided effusion with bilateral dependent atelectatic changes. Jerome Brady MD Abdomen/Pelvis CT 07/24/17 0000 Signed Impressions: Service Date/Time: Monday, July 24, 2017 05:36 - CONCLUSION: 1. CT findings concerning for a right sided cellulitis and developing myositis. There is some asymmetric prominence of the latissimus dorsi muscle on the right. Unorganized fluid in the deep subcutaneous tissues adjacent to the muscle belly. No drainable fluid collection, however. 2. Developing dependent areas of consolidation, right greater than left with an associated small right-sided effusion. Jerome Brady MD Head CT 07/22/17 1253 Signed Impressions: Service Date/Time: Saturday, July 22, 2017 13:26 - CONCLUSION: No acute disease. Derrick Henry MD Objective Remarks GENERAL: Elderly female, lying in bed intubated and on multiple pressors. HEENT: Normocephalic. Atraumatic. Pupils equal, round, reactive, conjugate. Mucous membranes are moist NECK: Trachea is midline. There is no JVD. CHEST: Equal chest rise. Room air. CARDIOVASCULAR: Tachycardic rate, regular rhythm. Continues on vasopressin and norepinephrine infusion ABDOMEN: Soft, nontender, nondistended. No guarding. There is significant tenderness to palpation over the right flank and edema and erythema with rubor and calor present from midline extending around to just medial to the right breast. This extends cephalad from approximately the fifth intercostal space down to approximately the ninth intercostal space. There is no fluctuance. There is no mass. The area of erythema is blanchable. There are no rashes or pustules in the area of edema. MUSCULOSKELETAL: Pulses 2+. No peripheral edema. NEUROLOGICAL: Intubated Date of Insertion: Jul 22, 2017 A/P Assessment and Plan Assessment: 62-year-old female with what appears to be a severe right flank cellulitis. Unclear the origin of cellulitis is as I do not see any trauma, or abrasions that would be a site or nidus for infection. Certainly unilateral erythema in what appears to be a dermatomal distribution raises concern over herpes zoster infection, however there are no lesions at all within the area of edema and erythema, and this looks much more like a cellulitis then any dermatomal rash. I agree with vancomycin and Zosyn as a choice of empiric antibiotic coverage. Agree with blood cultures. Patient clearly is in septic shock with elevated lactate and endorgan damage. We will continue to hydrate her with IV fluids as it still appears she is intravascularly volume deplete. If she continues to worsen or her shock does not improve, I would recommend adding clindamycin for toxin production, although this does not appear to be necrotizing soft tissue infection as by CT scan it appears to keep fascial planes intact. Remains very critically ill with life-threatening septic shock and multiple organ dysfunction. Active problems: VDRF Septic shock Right flank severe cellulitis Acute kidney injury Leukocytosis Elevated CK Anemia Lactic acidemia Hypothyroidism Plan: Plan by systems: Neurologic: Neuro checks per ICU protocol Fentanyl infusion for sedation and vent synchrony. Daily sedation vacation when appropriate Tylenol 650 mg every 6 hours as needed for pain and/or temperature greater than 100.5 Respiratory: Continue with vent support keep sats >92% On PRVC 18, TV 500, IT:0.8, PEEP:5, FIO2: 40% Bronchodilators, ICU vent bundle. Cardiovascular: Continue with pressors ( On Neosyn, vasopressin)keep MAP>65mmHg On Amio drip for Afib with RVR, Digoxin 0.125mg daily Serial lactic monitoring CVP monitoring, continue with bicarb drip. Given 1LNS and bicarb overnight. Check 2D echo to eval LV function Renal: Monitor renal function, I/O's, avoid nephrotoxins Cr: 2.0 from 2.59, Renal is following- . On D5W+3amps bicarb @200ml/hr, monitor CK's FEN/GI: On Pepcid 10mg BID for GI prophylaxis NPO, continue with IVF ID: Continue with abx ( Vanco, Clindamycin, add Zosyn) ID consulted. Follow up on BC from today 07/23: urine cx: No growth 07/22 BC: NGTD Consult General surgery Endocrine: Continue levothyroxine 112 mcg/day Glucose monitoring per ICU protocol. -- SSI Prophylaxis: GI Prophylaxis Famotidine DVT Prophylaxis -- SCDs Lines: Central line placed on 07/22. Peripheral IVs 2, Left Ax Art line Patient is critically ill with resp failure, septic shock, renal failure, worsening leukocytosis CCT 4 0 mins Chanda Sierra MD Jul 24, 2017 07:42
[2017-07-24] MEDS ORDERED: Vancomycin Consult Pharmacy 1 EA OTHER SCH (07:45)
[2017-07-24] MEDS ORDERED: PIPERACIL-TAZO 3.375 GM PREMIX 50 ML IV SCH (08:00)
[2017-07-24] MEDS: BUDESONIDE 9 MG PO SCH (09:00)
[2017-07-24] MEDS: DOCUSATE SODIUM 50 MG/SENNA 8.6 MG TAB PO SCH ×2 (09:16→20:23)
[2017-07-24] MEDS: PIPERACIL-TAZO 3.375 GM PREMIX 50 ML IV SCH ×2 (09:16→17:54)
[2017-07-24] MEDS: MULTIVITAMIN-OPHTHALMIC 1 TAB PO SCH (09:16)
[2017-07-24] MEDS: SODIUM CHLORIDE 0.9% FLUSH 10 ML FLUSH IV FLUSH SCH ×2 (09:17→20:23)
[2017-07-24] MEDS: FAMOTIDINE 20 MG TAB PO SCH ×2 (09:17→20:23)
[2017-07-24] MEDS: CALCIUM/VITAMIN D 250 MG/125 U TAB PO SCH (09:17)
[2017-07-24] MEDS: CHLORHEXIDINE 0.12% (ORAL KIT) 15 ML CUP MT SCH ×3 (09:18→20:00)
[2017-07-24] MEDS: INSULIN ASPART SUPPLEMENTAL SCALE SQ SCH ×4 (09:21→20:25)
[2017-07-24] MEDS ORDERED: PHENYLEPHRINE HCL 10 MG/ML VIAL ONE (10:01)
[2017-07-24] MEDS ORDERED: GENTAMICIN SULFATE 80 MG/2 ML VIAL ONE (11:10)
--- NOTE | 2017-07-24 11:22 | PD.ID.CON ---
History of Present Illness Service ID Consult Requested By Dr.Dan Roberts Reason for Consult Evaluation and Mment of Septic shock and necrotizing fascitis. Primary Care Physician Lamar Ortiz MD Diagnoses: History of Present Illness Most of the history was obtained by review of medical records. Patient shortly being wheeled out to the operating room for surgical exploration of the site of necrotizing fasciitis Septic shock. Ms. Eldridge is a 62-year-old female who reportedly has developmental delays per chart review. Patient presented to the emergency department via EMS for evaluation of right-sided abdominal, flank and back erythema swelling and pain. Patient's care provider and power of deputy commonwealth's attorney listed on the chart is Mr. Felipe Nagy who can be contacted at [phone]. Patient had earlier reported to others that she was feeling unwell for the past 4 weeks. Patient reported increase in her migraine symptoms. Patient also reported continuous, nonradiating sharps times burning pain over the right upper quadrant that is expanded to include her right flank and back. She denies any trauma to these areas. Patient reported to others prior to being intubated that she had nausea and vomiting associated with decreased appetite. Patient also had reported to others that she was dizzy and lightheaded. Per review of records it appears that patient has had multiple falls as well as has had urinary incontinence at baseline with decreased urine output over the last few days. Patient also reported subjective symptoms such as burning with urination. Per EMS, patient was found to be hypotensive. Systolic pressure was recorded in the 70s. She received fluid in transit with minimal improvement. In the emergency department she was found to have significant erythema,pain and edema from approximately the fifth intercostal space down to the eighth or ninth intercostal space wrapping around from the midline in the back all the way around to just medial to the breast. CT scan of the abdomen and pelvis confirms significant subcutaneous edema, but this area of edema appears to be contained by intact fascial planes, particularly in the midline of the back. Laboratory evidence is significant for a white blood cell count of 27k, creatinine is 3.58, potassium 5.4, bicarb of 17.9, anion gap elevated at 15, BUN of 64, an initial lactate of 5.1. In the emergency department she received 3 L of crystalloid IV fluids. Critical care medicine is consulted to evaluate manage her presumed septic shock secondary to severe cellulitis of the trunk. Overnight critical care medicine was consulted for worsening sepsis and septic shock. Patient had to be intubated and upon evaluation was found to have evidence suggestive of necrotizing fasciitis involving similar areas as reported on the emergency room but had progressed beyond the line of demarcation. Patient was noted to have significant blisters and blackening of the areas. Critical care medicine change the regimen to Zosyn IV, vancomycin IV and added clindamycin IV and placed a surgical consult. Patient was evaluated by Dr. Thor Dumont of surgery and patient is being wheeled to the operating room shortly. At the time of my evaluation patient is in the ICU currently on high-dose Levophed as well as vasopressin with slight decrease in Levophed requirement after addition of clindamycin IV. Urine output is low. No diarrhea. No diffuse rash or skin changes other than as described. Review of Systems ROS Limitations: Intubated Past Family Social History Allergies: Coded Allergies: No Known Allergies (Verified Allergy, Unknown, 07/22/17) Past Medical History Per chart review Anxiety Depression Developmental delays - mental handicap Headaches/migraines Hypothyroidism GERD Chest pain Hx of UTIs Renal insufficiency Bladder incontinence Chronic back pain Past Surgical History Per chart review: Thyroid surgery EGD - 08/30/16 Cholecystectomy - 03/04/15 D&C Hysterectomy Colonoscopy - 07/30/16 and 08/11/15 Reported Medications Reported Meds & Active Scripts Active Tramadol (Tramadol HCl) 50 Mg Tab 50 Mg PO Q8H PRN Levothyroxine (Levothyroxine Sodium) 175 Mcg Tab 175 Mcg PO DAILY Aspirin 325 Mg Tab 325 Mg PO DAILY Lisinopril 5 Mg Tab 5 Mg PO DAILY Zantac (Ranitidine HCl) 150 Mg Tab 150 Mg PO BID Reported Uceris ER 24 HR (Budesonide) 9 Mg Vee 9 Mg PO DAILY Actos (Pioglitazone HCl) 15 Mg Tab 15 Mg PO DAILY Protonix (Pantoprazole Sodium) 40 Mg Tab 40 Mg PO DAILY Macrobid (Nitrofurantoin Monoh/Nitrofur Macro) 100 Mg Cap 100 Mg PO BID Ocuvite (Multiple Vitamins W/ Minerals) 1 Tab 1 Tab PO DAILY Calcium 600+D Plus Minerals (Calcium Carbonate-Vitamin D W/Minerals) 600-400 Mg- Unit Tab 1 Tab PO DAILY Active Ordered Medications Current Medications Medications (Trade) Dose Ordered Sig/Beatrice Route Start Time Stop Time Status Last Admin (Ocuvite) 1 tab DAILY PO 07/23/17 09:00 07/24/17 09:16 Patient Own Medication PT OWN MED: BUDESON... DAILY PO 07/23/17 09:00 (Oscal-D 250-125) 500 mg DAILY PO 07/23/17 09:00 07/24/17 09:17 (Synthroid) 100 mcg DAILY@0600 PO 07/23/17 06:00 07/24/17 04:42 (Pepcid) 10 mg BID PO 07/22/17 21:00 07/24/17 09:17 (Synthroid) 75 mcg DAILY@0600 PO 07/23/17 06:00 07/24/17 04:41 (NS Flush) 2 ml UNSCH PRN IV FLUSH 07/22/17 16:45 (NS Flush) 2 ml BID IV FLUSH 07/22/17 21:00 07/24/17 09:17 (Zofran Inj) 4 mg Q6H PRN IVP 07/22/17 16:45 07/23/17 22:11 (Tylenol) 650 mg Q6H PRN PO 07/22/17 16:45 (Morphine Inj) 2 mg Q3H PRN IV PUSH 07/22/17 16:45 07/24/17 01:28 (Ultram) 50 mg Q6H PRN PO 07/22/17 16:45 (Ultram) 100 mg Q4H PRN PO 07/22/17 16:45 07/23/17 03:39 (Narcan Inj) 0.4 mg UNSCH PRN IV PUSH 07/22/17 16:45 (Natalie-Colace) 1 tab BID PO 07/22/17 21:00 07/24/17 09:16 (Senokot) 17.2 mg Q12H PRN PO 07/22/17 16:45 (Dulcolax Supp) 10 mg DAILY PRN RECTAL 07/22/17 16:45 (Lactulose Liq) 30 ml DAILY PRN PO 07/22/17 16:45 ([facility] [place] Nursing Information) Patient in critical care unit? Ass... [id number] .XX 07/22/17 18:45 (Chlorhexidine 2% Cloth) 3 pack DAILY@04 TOPICAL 07/23/17 04:00 07/27/17 04:01 (Chlorhexidine 2% Cloth) 3 pack UNSCH PRN TOPICAL 07/22/17 18:45 07/27/17 18:30 Norepinephrine Bitartrate 250 ml @ 7.5 mls/hr TITRATE PRN IV 07/22/17 21:00 07/23/17 22:12 Vasopressin 40 units/Dextrose 100 ml @ 6 mls/hr TITRATE PRN IV 07/23/17 06:00 07/23/17 22:12 (Milk Of Magnesia Liq) 30 ml Q12H PRN PO 07/23/17 15:30 (Phenergan Inj) 12.5 mg Q6H PRN IV-CENTRAL 07/23/17 15:30 Phenylephrine HCl 80 mg/Dextrose 500 ml @ 15 mls/hr TITRATE PRN IV 07/24/17 03:00 07/24/17 10:04 (Brethine Inj) 1 mg UNSCH PRN SQ 07/24/17 03:00 (Lanoxin Inj) 0.125 mg DAILY IVS 07/25/17 09:00 (Peridex 0.12% Liq) 15 ml BID@08,20 MT 07/24/17 08:00 07/24/17 09:18 Midazolam HCl 100 ml @ 2 mls/hr TITRATE PRN IV 07/24/17 03:15 Fentanyl Citrate 250 ml @ 5 mls/hr TITRATE PRN IV 07/24/17 03:15 07/24/17 03:36 Clindamycin/ Sodium Chloride 50 ml @ 100 mls/hr Q6H IV 07/24/17 04:00 07/24/17 10:49 Amiodarone HCl 450 mg/Sodium Chloride 250 ml @ 33.33 mls/ hr Q7H31M PRN IV 07/24/17 05:00 07/24/17 06:00 (NovoLOG SUPPLEMENTAL SCALE) 1 Q4H SQ 07/24/17 09:00 07/24/17 09:21 Pharmacy Profile Note 0 ml @ 0 mls/hr UNSCH OTHER 07/24/17 07:45 Piperacillin Sod/ Tazobactam Sod 50 ml @ 100 mls/hr Q8H IV 07/24/17 10:00 07/24/17 09:16 Dextrose/Sodium Chloride 1,000 ml @ 75 mls/hr [id number] IV 07/24/17 10:00 Family History Per chart review: Mother - diabetes mellitus Sister - lupus erythematosus Social History Per chart review: Alcohol: none. Tobacco: never smoker. Drug: none. Physical Exam Vital Signs Vital Signs Date Time Temp Pulse Resp B/P (MAP) Pulse Ox O2 Delivery O2 Flow Rate FiO2 07/24/17 10:04 116 125/79 07/24/17 08:32 0 40 07/24/17 08:00 122 112/64 (80) 07/24/17 06:00 114 07/24/17 06:00 114 95/63 07/24/17 05:00 145 92/58 07/24/17 04:26 97 40 07/24/17 04:00 144 07/24/17 04:00 144 24 122/81 (95) 100 07/24/17 03:53 97 50 07/24/17 03:36 148 122/86 07/24/17 03:00 50 07/24/17 02:00 106 07/24/17 00:00 98.1 107 14 100/57 (71) 07/24/17 00:00 107 07/23/17 22:12 107 106/67 07/23/17 22:12 107 106/67 07/23/17 22:00 106 07/23/17 20:22 95 21 07/23/17 20:00 98.5 109 22 105/71 (82) 07/23/17 20:00 109 07/23/17 18:20 108 122/61 (81) 07/23/17 18:05 122/61 07/23/17 18:00 107 07/23/17 17:01 104/69 07/23/17 16:40 108 104/69 07/23/17 16:03 102/73 07/23/17 16:00 108 07/23/17 16:00 97.8 108 19 102/73 (83) 07/23/17 14:00 107 07/23/17 13:41 104/68 07/23/17 13:31 103/73 07/23/17 13:21 99/70 07/23/17 12:00 97.6 110 20 111/67 (82) 100 07/23/17 12:00 111 Physical Exam GENERAL: Thin built, well-developed patient, in no apparent distress. SKIN: No generalized maculopapular rash. HEAD: Atraumatic. Normocephalic. No temporal or scalp tenderness. EYES: Pupils equal round and reactive. Extraocular motions intact. No scleral icterus. No injection or drainage. ENT: Intubated. NECK: Trachea midline. Supple, nontender, no meningeal signs. CARDIOVASCULAR: Heart sounds audible. No murmur appreciated. RESPIRATORY: Clear to auscultation. Breath sounds equal bilaterally. No wheezes , rales, or rhonchi. GASTROINTESTINAL: Abdomen soft. Area of erythema anteriorly extending to the midline and slightly beyond. Extending into right breast outer quadrants. Erythema extending beyond area of demarcation. MUSCULOSKELETAL: Extremities without clubbing, cyanosis, or edema. No joint tenderness, effusion, or edema noted. No calf tenderness. Negative Homans sign bilaterally. NEUROLOGICAL: Sedated. Psych could not be assessed IV line sites with no e.o infection Laboratory Laboratory Tests Test 07/23/17 16:05 07/24/17 02:40 07/24/17 04:15 Urine Color YELLOW Urine Turbidity CLOUDY Urine pH 5.5 Urine Specific Brewster 1.018 Urine Protein 30 Urine Glucose (UA) NEG Urine Ketones NEG Urine Occult Blood MOD Urine Nitrite NEG Urine Bilirubin NEG Urine Urobilinogen LESS THAN 2.0 Urine Leukocyte Esterase NEG Urine RBC LESS THAN 1 Urine WBC 2 Urine Squamous Epithelial Cells 2 Urine Transitional Epithelial Cells <1 Urine Amorphous Sediment OCC Urine Bacteria RARE Urine Mucus FEW Microscopic Urinalysis Comment CATH-CULTURE IND Urine Eosinophils NONE SEEN Urine Random Creatinine 73.1 Urine Random Sodium 45 White Blood Count 31.3 Red Blood Count 3.28 Hemoglobin 8.9 Hematocrit 27.2 Mean Corpuscular Volume 82.9 Mean Corpuscular Hemoglobin 27.1 Mean Corpuscular Hemoglobin Concent 32.6 Red Cell Distribution Width 15.2 Platelet Count 282 Mean Platelet Volume 6.4 CBC Comment AUTO DIFF Differential Total Cells Counted 100 Neutrophils % (Manual) 69 Band Neutrophils % 20 Lymphocytes % 2 Monocytes % 3 Neutrophils # (Manual) 29.7 Metamyelocytes 6 Differential Comment FINAL DIFF MANUAL Toxic Granulation 2+ Platelet Estimate NORMAL Platelet Morphology Comment NORMAL Ovalocytes 1+ Prothrombin Time 15.6 Prothromb Time International Ratio 1.5 Activated Partial Thromboplast Time 45.0 Blood Urea Nitrogen 61 Creatinine 2.03 Random Glucose 169 Total Protein 4.1 Albumin 1.4 Calcium Level 8.0 Alkaline Phosphatase 94 Aspartate Amino Transf (AST/SGOT) 42 Alanine Aminotransferase (ALT/SGPT) 20 Total Bilirubin 0.4 Sodium Level 142 Potassium Level 5.0 Chloride Level 110 Carbon Dioxide Level 22.2 Anion Gap 10 Estimat Glomerular Filtration Rate 25 Lactic Acid Level 3.4 Phosphorus Level 4.8 Total Creatine Kinase 954 Creatine Kinase MB 14.2 Creatine Kinase MB % 1.5 Troponin I 0.14 Thyroid Stimulating Hormone 3rd Gen 0.083 Random Vancomycin Level 15.4 Blood Gas Puncture Site ART LINE Blood Gas Patient Temperature 98.6 Blood Gas HCO3 16 Blood Gas Base Excess -6.6 Blood Gas Oxygen Saturation 95 Arterial Blood pH 7.50 Arterial Blood Partial Pressure CO2 21 Arterial Blood Partial Pressure O2 236 Arterial Blood Oxygen Content 12.9 Arterial Blood Carboxyhemoglobin 0.2 Arterial Blood Methemoglobin 2.7 Blood Gas Hemoglobin 9.2 Oxygen Delivery Device VENTILATOR Blood Gas Ventilator Setting PRVC/AC 24/500/5PEEP Blood Gas Inspired Oxygen 50 Date/Time Source Procedure Growth Status 07/24/17 05:05 Blood Peripheral Aerobic Blood Culture Pending Received 07/24/17 05:05 Blood Peripheral Anaerobic Blood Culture Pending Received 07/22/17 20:10 Nasal Washing Influenza Types A,B Antigen (DELMI) - Final NEGATIVE FOR FLU A AND B ANTIGEN.... Complete 07/23/17 16:05 Urine Catheterized Urine Urine Culture Pending Received Result Diagram: 07/24/17 0240 07/24/17 0240 Imaging Last Impressions Chest X-Ray 07/24/17 0000 Signed Impressions: Service Date/Time: Monday, July 24, 2017 04:28 - CONCLUSION: 1. Endotracheal and nasogastric tubes appear to be appropriately positioned. Stable position of left subclavian central venous catheter. 2. Lungs remain clear. Jerome Brady MD Chest CT 07/24/17 0000 Signed Impressions: Service Date/Time: Monday, July 24, 2017 05:36 - CONCLUSION: 1. Stranding in the subcutaneous tissues about the right flank with fluid adjacent to the latissimus dorsi. Stranding extends up into the right breast. Findings could represent developing cellulitis. 2. In addition, there is now a small right-sided effusion with bilateral dependent atelectatic changes. Jerome Brady MD Abdomen/Pelvis CT 07/24/17 0000 Signed Impressions: Service Date/Time: Monday, July 24, 2017 05:36 - CONCLUSION: 1. CT findings concerning for a right sided cellulitis and developing myositis. There is some asymmetric prominence of the latissimus dorsi muscle on the right. Unorganized fluid in the deep subcutaneous tissues adjacent to the muscle belly. No drainable fluid collection, however. 2. Developing dependent areas of consolidation, right greater than left with an associated small right-sided effusion. Jerome Brady MD Head CT 07/22/17 1253 Signed Impressions: Service Date/Time: Saturday, July 22, 2017 13:26 - CONCLUSION: No acute disease. Derrick Henry MD Assessment and Plan Assessment and Plan Septic shock with multiorgan dysfunction syndrome Sepsis present on admission Necrotizing fasciitis of the abdominal wall ? History of multiple falls likely the precipitant. Acute rhabdomyolysis Acute renal failure: Prerenal, sepsis, rhabdomyolysis Acute metabolic encephalopathy likely sepsis related. Baseline unknown Leukemoid reaction likely due to worsening sepsis Recommendations: Continue Zosyn IV Continue vancomycin IV(target for sepsis) Continue clindamycin IV Will review Intra-Op findings with Dr. Dumont. Unsure of the exact precipitant being trauma versus this being of other etiology such as an epidural abscess. We will follow along to determine etiology Follow cultures Follow clinically Patient critically ill. Critical thinking decision-making. Discussed with RN Discussed with critical care medicine Ellen Parks MD Jul 24, 2017 11:22
[2017-07-24] MEDS ORDERED: PHENYLEPH/NS 1000 MCG/10 ML SYR IV ONE (12:00)
[2017-07-24] MEDS ORDERED: LACTATED RINGER'S 1000 ML INJ 2,000 ML IV ONE (12:00)
[2017-07-24] MEDS ORDERED: ePHEDrine/NS 25 MG/5 ML SYRINGE IV ONE (12:00)
--- NOTE | 2017-07-24 12:12 | HHI.FPPN ---
Subjective Remarks Patient was intubated early this morning, now on Vasopressin and Neosyn 300 mics in addition patient is on Amio and Bicarb drips. CT abdomen at that time showed right-sided cellulitis and developing myositis. Surgery consulted for surgical evaluation. Patient remains critically ill (Jeffrey Taylor MD R1) Objective Vitals Vital Signs Date Time Temp Pulse Resp B/P (MAP) Pulse Ox O2 Delivery O2 Flow Rate FiO2 07/24/17 10:04 116 125/79 07/24/17 08:32 0 40 07/24/17 08:00 122 112/64 (80) 07/24/17 06:00 114 07/24/17 06:00 114 95/63 07/24/17 05:00 145 92/58 07/24/17 04:26 97 40 07/24/17 04:00 144 07/24/17 04:00 144 24 122/81 (95) 100 07/24/17 03:53 97 50 07/24/17 03:36 148 122/86 07/24/17 03:00 50 07/24/17 02:00 106 07/24/17 00:00 98.1 107 14 100/57 (71) 07/24/17 00:00 107 07/23/17 22:12 107 106/67 07/23/17 22:12 107 106/67 07/23/17 22:00 106 07/23/17 20:22 95 21 07/23/17 20:00 98.5 109 22 105/71 (82) 07/23/17 20:00 109 07/23/17 18:20 108 122/61 (81) 07/23/17 18:05 122/61 07/23/17 18:00 107 07/23/17 17:01 104/69 07/23/17 16:40 108 104/69 07/23/17 16:03 102/73 07/23/17 16:00 108 07/23/17 16:00 97.8 108 19 102/73 (83) 07/23/17 14:00 107 07/23/17 13:41 104/68 07/23/17 13:31 103/73 07/23/17 13:21 99/70 I/O 07/23/17 07/23/17 07/23/17 07/24/17 07/24/1718 07:00 15:00 23:00 07:00 15:00 23:00 Intake Total 530 ml 3700 ml 1260 ml 2091 ml Output Total 300 ml 350 ml 366 ml Balance 230 ml 3700 ml 910 ml 1725 ml Intake Oral 480 ml 360 ml IV Total 50 ml 3700 ml 900 ml 2091 ml Output Urine Total 300 ml 350 ml 366 ml # Bowel Movements 0 0 0 (Jeffrey Taylor MD R1) Result Diagram: 07/24/17 0240 07/24/17 0240 Imaging Last 72 hours Impressions Chest X-Ray 07/24/17 0000 Signed Impressions: Service Date/Time: Monday, July 24, 2017 04:28 - CONCLUSION: 1. Endotracheal and nasogastric tubes appear to be appropriately positioned. Stable position of left subclavian central venous catheter. 2. Lungs remain clear. Jerome Brady MD Chest CT 07/24/17 0000 Signed Impressions: Service Date/Time: Monday, July 24, 2017 05:36 - CONCLUSION: 1. Stranding in the subcutaneous tissues about the right flank with fluid adjacent to the latissimus dorsi. Stranding extends up into the right breast. Findings could represent developing cellulitis. 2. In addition, there is now a small right-sided effusion with bilateral dependent atelectatic changes. Jerome Brady MD Abdomen/Pelvis CT 07/24/17 0000 Signed Impressions: Service Date/Time: Monday, July 24, 2017 05:36 - CONCLUSION: 1. CT findings concerning for a right sided cellulitis and developing myositis. There is some asymmetric prominence of the latissimus dorsi muscle on the right. Unorganized fluid in the deep subcutaneous tissues adjacent to the muscle belly. No drainable fluid collection, however. 2. Developing dependent areas of consolidation, right greater than left with an associated small right-sided effusion. Jerome Brady MD Head CT 07/22/17 1253 Signed Impressions: Service Date/Time: Saturday, July 22, 2017 13:26 - CONCLUSION: No acute disease. Derrick Henry MD Chest X-Ray 07/22/17 1253 Signed Impressions: Service Date/Time: Saturday, July 22, 2017 13:01 - CONCLUSION: No acute disease. Derrick Henry MD Chest X-Ray 07/22/17 Signed Impressions: Service Date/Time: Saturday, July 22, 2017 22:10 - CONCLUSION: No acute disease. Left subclavian central line with tip in the SVC. Jax De Leon MD Chest CT 07/22/17 0000 Signed Impressions: Service Date/Time: Saturday, July 22, 2017 13:30 - CONCLUSION: No acute disease. Derrick Henry MD Abdomen/Pelvis CT 07/22/17 Signed Impressions: Service Date/Time: Saturday, July 22, 2017 13:30 - CONCLUSION: Edema seen throughout the subcutaneous tissues at the right upper abdomen extending from the midline anteriorly and posterior along the right lateral aspect of the abdomen. No focal fluid collection is seen. Inflammatory/infectious processes versus post traumatic change in the appropriate history. Derrick Henry MD Objective Remarks GENERAL: Elderly female, lying in bed intubated and sedated HEENT: Normocephalic. NECK: Trachea is midline. There is no JVD. CHEST: Equal chest rise. CARDIOVASCULAR: Warm and well perfused ABDOMEN: Soft, nontender, nondistended. No guarding. R right flank and edema and erythema with rubor and calor present from midline extending around to just medial to the right breast. This extends cephalad from approximately the fifth intercostal space down to the groin. Bruising has extended significantly outside of previously marked boarders. MUSCULOSKELETAL: Pulses 2+. No peripheral edema. NEUROLOGICAL: Sedated. (Jeffrey Taylor MD R1) Date of Insertion: Jul 22, 2017 (Jeffrey Taylor MD R1) A/P Assessment and Plan Patient is a 62 year old female who presents to the ED via EMS for evaluation of right-sided abdominal, flank and back erythema, swelling and pain. Patient was found to be hypotensive in transit to hospital with systolic pressures in the 70s. Patient has received multiple fluid boluses with minimal improvement. Patient admitted for management of pain and hypotension. Critical care was consulted for pressure support as patient is in severe septic shock. Lactate on admission of 5.1, most recent lactate of 3.3. Patient was started on vancomycin and Zosyn on admission. Patient deteriorated and was intubated on . Started on clindamycin. Discharge Planning Unclear at this point, patient remains critically ill (Jeffrey Taylor MD R1) Attending Attestation Pt. seen this a.m. intubated and unable to communicate. Spoke with her nurses and Dr. Dumont, who is planning surgery with concern for necrotizing fasciitis. Dr. Dumont spoke with her POA over the phone to obtain consent and explain his concerns. Exam shows extensive ecchymotic appearing area extending to right flank, right abdomen and into the right groin with bullae superficially. Pt. color is poor, she is clearly critically ill. Appreciate assistance form intensivists, infectious disease and Dr. Dumont. We will follow. (Lamar Ortiz MD) Problem List: (1) Severe sepsis ICD Codes: A41.9 - Sepsis, unspecified organism; R65.20 - Severe sepsis without septic shock Status: Acute Plan: Being medically managed by critical care Currently in severe sepsis shock with end organ damage. Intubated on 07/24 Suspected source is cellulitis/abdominal wall infection CT scan reviewed and showing edema and developing myositis Antibiotics: Vancomycin, Zosyn, clindamycin Pressure support per critical care (2) Abdominal wall cellulitis ICD Codes: L03.311 - Cellulitis of abdominal wall Plan: Patient presented with abdominal wall pain, see sepsis plan above CT scan on admission showed edema throughout the subcutaneous tissues of the right upper abdomen CT scan on 07/24 concerning for right-sided cellulitis and developing myositis Surgery consult on 07/24 for surgical evaluation (3) Hypotension ICD Codes: I95.9 - Hypotension, unspecified Status: Acute Plan: Pressure support per critical care (4) Acute kidney injury ICD Codes: N17.9 - Acute kidney failure, unspecified Status: Acute Plan: Patient admitted with significant AK I. Suspected to be secondary to septic shock Has continued to have elevated creatinine during hospitalization Nephrology consulted on 07/24 (5) Hypothyroidism ICD Codes: E03.9 - Hypothyroidism Status: Chronic Plan: Patient with history of hypothyroidism. * Continue home meds. (6) GERD (gastroesophageal reflux disease) ICD Codes: K21.9 - Gastroesophageal reflux disease Status: Acute Plan: Patient with history of GERD. * Continue home meds. (7) Fluid, Electrolyte, Nutrition, and Prophylaxis Status: Acute Plan: Fluid: Aggressive IV fluids being managed by critical care Electrolyte: * Monitor and replete as necessary. Nutrition: * Diabetic diet DVT Prophylaxis: * SCDs. (Jeffrey Taylor MD R1) Problem Qualifiers (1) Hypotension: Qualified Codes: I95.9 - Hypotension, unspecified Jeffrey Taylor MD R1 Jul 24, 2017 12:12 Lamar Ortiz MD Jul 24, 2017 14:43
[2017-07-24] MEDS ORDERED: VANCOMYCIN 1,000 MG/NS 250 ML IV ONE ×2 (13:00)
--- NOTE | 2017-07-24 13:10 | PD.CONS ---
[facility] Service Nephrology Consult Requested By Reason for Consult Acute Renal Failure Primary Care Physician Lamar Ortiz MD History of Present Illness This is a 62 y/o female with developmental disabilities and frequent UTIs. She came in for right sided abdominal pain. PMH also include anxiety and depression. She is septic on arrival, was intubated for airway protection given lethargy and hypoxia. She is on phenylephrine and Levophed currently in addition to a bicarb gtt with D5W and 3 amps at 200 cc/hr. Her clinical weight is recorded as 15 kg over admission weight. Her creatinine was normal in April. On admission is twas 3.58 but improved to 2 today. We were consulted to assist with management. (Adri Osorio) Review of Systems ROS Limitations: Intubated, Unresponsive (Adri Osorio) Past Family Social History Allergies: Coded Allergies: No Known Allergies (Verified Allergy, Unknown, 07/22/17) Past Medical History Anxiety Depression Developmental delays - mental handicap Headaches/migraines Hypothyroidism GERD Chest pain Hx of UTIs Bladder incontinence Chronic back pain Past Surgical History Per chart review: Thyroid surgery EGD - 08/30/16 Cholecystectomy - 03/04/15 D&C Hysterectomy Colonoscopy - 07/30/16 and 08/11/15 Reported Medications Tramadol (Tramadol HCl) 50 Mg Tab 50 Mg PO Q8H PRN Levothyroxine (Levothyroxine Sodium) 175 Mcg Tab 175 Mcg PO DAILY Aspirin 325 Mg Tab 325 Mg PO DAILY Lisinopril 5 Mg Tab 5 Mg PO DAILY Zantac (Ranitidine HCl) 150 Mg Tab 150 Mg PO BID Uceris ER 24 HR (Budesonide) 9 Mg Vee 9 Mg PO DAILY Actos (Pioglitazone HCl) 15 Mg Tab 15 Mg PO DAILY Protonix (Pantoprazole Sodium) 40 Mg Tab 40 Mg PO DAILY Macrobid (Nitrofurantoin Monoh/Nitrofur Macro) 100 Mg Cap 100 Mg PO BID Ocuvite (Multiple Vitamins W/ Minerals) 1 Tab 1 Tab PO DAILY Calcium 600+D Plus Minerals (Calcium Carbonate-Vitamin D W/Minerals) 600-400 Mg- Unit Tab 1 Tab PO DAILY Active Ordered Medications Current Medications Medications (Trade) Dose Ordered Sig/Beatrice Route Start Time Stop Time Status Last Admin (Ocuvite) 1 tab DAILY PO 4/29/18 09:00 07/24/17 09:16 Patient Own Medication PT OWN MED: BUDESON... DAILY PO 07/23/17 09:00 (Oscal-D 250-125) 500 mg DAILY PO 07/23/17 09:00 07/24/17 09:17 (Synthroid) 100 mcg DAILY@0600 PO 07/23/17 06:00 07/24/17 04:42 (Pepcid) 10 mg BID PO 07/22/17 21:00 07/24/17 09:17 (Synthroid) 75 mcg DAILY@0600 PO 07/23/17 06:00 07/24/17 04:41 (NS Flush) 2 ml UNSCH PRN IV FLUSH 07/22/17 16:45 (NS Flush) 2 ml BID IV FLUSH 07/22/17 21:00 07/24/17 09:17 (Zofran Inj) 4 mg Q6H PRN IVP 07/22/17 16:45 07/23/17 22:11 (Tylenol) 650 mg Q6H PRN PO 07/22/17 16:45 (Morphine Inj) 2 mg Q3H PRN IV PUSH 07/22/17 16:45 07/24/17 01:28 (Ultram) 50 mg Q6H PRN PO 07/22/17 16:45 (Ultram) 100 mg Q4H PRN PO 07/22/17 16:45 07/23/17 03:39 (Narcan Inj) 0.4 mg UNSCH PRN IV PUSH 07/22/17 16:45 (Natalie-Colace) 1 tab BID PO 07/22/17 21:00 07/24/17 09:16 (Senokot) 17.2 mg Q12H PRN PO 07/22/17 16:45 (Dulcolax Supp) 10 mg DAILY PRN RECTAL 07/22/17 16:45 (Lactulose Liq) 30 ml DAILY PRN PO 07/22/17 16:45 ([facility]) Patient in critical care unit? Ass... [id number] .XX 07/22/17 18:45 (Chlorhexidine 2% Cloth) 3 pack DAILY@04 TOPICAL 07/23/17 04:00 07/27/17 04:01 (Chlorhexidine 2% Cloth) 3 pack UNSCH PRN TOPICAL 07/22/17 18:45 07/27/17 18:30 Norepinephrine Bitartrate 250 ml @ 7.5 mls/hr TITRATE PRN IV 07/22/17 21:00 07/23/17 22:12 Vasopressin 40 units/Dextrose 100 ml @ 6 mls/hr TITRATE PRN IV 07/23/17 06:00 07/23/17 22:12 (Milk Of Magnesia Liq) 30 ml Q12H PRN PO 07/23/17 15:30 (Phenergan Inj) 12.5 mg Q6H PRN IV-CENTRAL 07/23/17 15:30 Phenylephrine HCl 80 mg/Dextrose 500 ml @ 15 mls/hr TITRATE PRN IV 07/24/17 03:00 07/24/17 10:04 (Brethine Inj) 1 mg UNSCH PRN SQ 07/24/17 03:00 (Lanoxin Inj) 0.125 mg DAILY IVS 07/25/17 09:00 (Peridex 0.12% Liq) 15 ml BID@08,20 MT 07/24/17 08:00 07/24/17 09:18 Midazolam HCl 100 ml @ 2 mls/hr TITRATE PRN IV 07/24/17 03:15 Fentanyl Citrate 250 ml @ 5 mls/hr TITRATE PRN IV 07/24/17 03:15 07/24/17 03:36 Clindamycin/ Sodium Chloride 50 ml @ 100 mls/hr Q6H IV 07/24/17 04:00 07/24/17 10:49 Amiodarone HCl 450 mg/Sodium Chloride 250 ml @ 33.33 mls/ hr Q7H31M PRN IV 07/24/17 05:00 07/24/17 06:00 (NovoLOG SUPPLEMENTAL SCALE) 1 Q4H SQ 07/24/17 09:00 07/24/17 09:21 Pharmacy Profile Note 0 ml @ 0 mls/hr UNSCH OTHER 07/24/17 07:45 Piperacillin Sod/ Tazobactam Sod 50 ml @ 100 mls/hr Q8H IV 07/24/17 10:00 07/24/17 09:16 Dextrose/Sodium Chloride 1,000 ml @ 75 mls/hr [id number] IV 07/24/17 10:00 Vancomycin HCl 1000 mg/Sodium Chloride 250 ml @ 250 mls/hr ONCE ONCE IV 07/24/17 13:00 07/24/17 13:59 Family History Unable to obtain Social History unable to obtain (Adri Osorio) Physical Exam Vital Signs Vital Signs Date Time Temp Pulse Resp B/P (MAP) Pulse Ox O2 Delivery O2 Flow Rate FiO2 07/24/17 11:40 100 100 07/24/17 10:04 116 125/79 07/24/17 08:32 0 40 07/24/17 08:00 122 112/64 (80) 07/24/17 06:00 114 07/24/17 06:00 114 95/63 07/24/17 05:00 145 92/58 07/24/17 04:26 97 40 07/24/17 04:00 144 07/24/17 04:00 144 24 122/81 (95) 100 07/24/17 03:53 97 50 07/24/17 03:36 148 122/86 07/24/17 03:00 50 07/24/17 02:00 106 07/24/17 00:00 98.1 107 14 100/57 (71) 07/24/17 00:00 107 07/23/17 22:12 107 106/67 07/23/17 22:12 107 106/67 07/23/17 22:00 106 07/23/17 20:22 95 21 07/23/17 20:00 98.5 109 22 105/71 (82) 07/23/17 20:00 109 07/23/17 18:20 108 122/61 (81) 07/23/17 18:05 122/61 07/23/17 18:00 107 07/23/17 17:01 104/69 07/23/17 16:40 108 104/69 07/23/17 16:03 102/73 07/23/17 16:00 108 07/23/17 16:00 97.8 108 19 102/73 (83) 07/23/17 14:00 107 07/23/17 13:41 104/68 07/23/17 13:31 103/73 07/23/17 13:21 99/70 Physical Exam Young appearing elderly female intubated, sedated on vent S1/S2, tachy 130s Lungs clear in upper kang, decreased in bases Abd soft, normal bowel sounds large purplish lesion on right flank, extends to back; large bullae on side. Ext no edema Laboratory Laboratory Tests Test 07/23/17 16:05 07/24/17 02:40 07/24/17 04:15 07/24/17 11:57 Urine Color YELLOW Urine Turbidity CLOUDY Urine pH 5.5 Urine Specific [place] 1.018 Urine Protein 30 Urine Glucose (UA) NEG Urine Ketones NEG Urine Occult Blood MOD Urine Nitrite NEG Urine Bilirubin NEG Urine Urobilinogen LESS THAN 2.0 Urine Leukocyte Esterase NEG Urine RBC LESS THAN 1 Urine WBC 2 Urine Squamous Epithelial Cells 2 Urine Transitional Epithelial Cells <1 Urine Amorphous Sediment OCC Urine Bacteria RARE Urine Mucus FEW Microscopic Urinalysis Comment CATH-CULTURE IND Urine Eosinophils NONE SEEN Urine Random Creatinine 73.1 Urine Random Sodium 45 White Blood Count 31.3 Red Blood Count 3.28 Hemoglobin 8.9 Hematocrit 27.2 Mean Corpuscular Volume 82.9 Mean Corpuscular Hemoglobin 27.1 Mean Corpuscular Hemoglobin Concent 32.6 Red Cell Distribution Width 15.2 Platelet Count 282 Mean Platelet Volume 6.4 CBC Comment AUTO DIFF Differential Total Cells Counted 100 Neutrophils % (Manual) 69 Band Neutrophils % 20 Lymphocytes % 2 Monocytes % 3 Neutrophils # (Manual) 29.7 Metamyelocytes 6 Differential Comment FINAL DIFF MANUAL Toxic Granulation 2+ Platelet Estimate NORMAL Platelet Morphology Comment NORMAL Ovalocytes 1+ Prothrombin Time 15.6 Prothromb Time International Ratio 1.5 Activated Partial Thromboplast Time 45.0 Blood Urea Nitrogen 61 Creatinine 2.03 Random Glucose 169 Total Protein 4.1 Albumin 1.4 Calcium Level 8.0 Alkaline Phosphatase 94 Aspartate Amino Transf (AST/SGOT) 42 Alanine Aminotransferase (ALT/SGPT) 20 Total Bilirubin 0.4 Sodium Level 142 Potassium Level 5.0 Chloride Level 110 Carbon Dioxide Level 22.2 Anion Gap 10 Estimat Glomerular Filtration Rate 25 Lactic Acid Level 3.4 Phosphorus Level 4.8 Total Creatine Kinase 954 Creatine Kinase MB 14.2 Creatine Kinase MB % 1.5 Troponin I 0.14 Thyroid Stimulating Hormone 3rd Gen 0.083 Random Vancomycin Level 15.4 Blood Gas Puncture Site ART LINE DRAWN IN OR Blood Gas Patient Temperature 98.6 98.6 Blood Gas HCO3 16 19 Blood Gas Base Excess -6.6 -5.4 Blood Gas Oxygen Saturation 95 95 Arterial Blood pH 7.50 7.38 Arterial Blood Partial Pressure CO2 21 32 Arterial Blood Partial Pressure O2 236 404 Arterial Blood Oxygen Content 12.9 12.5 Arterial Blood Carboxyhemoglobin 0.2 0.1 Arterial Blood Methemoglobin 2.7 2.7 Blood Gas Hemoglobin 9.2 8.5 Oxygen Delivery Device VENTILATOR Blood Gas Ventilator Setting PRVC/AC 24/500/5PEEP Blood Gas Inspired Oxygen 50 100 Date/Time Source Procedure Growth Status 07/24/17 05:05 Blood Peripheral Aerobic Blood Culture Pending Received 07/24/17 05:05 Blood Peripheral Anaerobic Blood Culture Pending Received 07/22/17 20:10 Nasal Washing Influenza Types A,B Antigen (DELMI) - Final NEGATIVE FOR FLU A AND B ANTIGEN.... Complete 07/23/17 16:05 Urine Catheterized Urine Urine Culture - Preliminary NO GROWTH IN 24 HOURS. Resulted 07/24/17 12:22 Wound Abdomen Fungal Smear Pending Received 07/24/17 12:22 Wound Abdomen Fungal Culture Pending Received ([facility]) Result Diagram: 07/24/17 0240 07/24/17 0240 Imaging Last 72 hours Impressions Chest X-Ray 07/24/17 0000 Signed Impressions: Service Date/Time: Monday, July 24, 2017 04:28 - CONCLUSION: 1. Endotracheal and nasogastric tubes appear to be appropriately positioned. Stable position of left subclavian central venous catheter. 2. Lungs remain clear. Jerome Brady MD Chest CT 07/24/17 0000 Signed Impressions: Service Date/Time: Monday, July 24, 2017 05:36 - CONCLUSION: 1. Stranding in the subcutaneous tissues about the right flank with fluid adjacent to the latissimus dorsi. Stranding extends up into the right breast. Findings could represent developing cellulitis. 2. In addition, there is now a small right-sided effusion with bilateral dependent atelectatic changes. Jerome Brady MD Abdomen/Pelvis CT 07/24/17 0000 Signed Impressions: Service Date/Time: Monday, July 24, 2017 05:36 - CONCLUSION: 1. CT findings concerning for a right sided cellulitis and developing myositis. There is some asymmetric prominence of the latissimus dorsi muscle on the right. Unorganized fluid in the deep subcutaneous tissues adjacent to the muscle belly. No drainable fluid collection, however. 2. Developing dependent areas of consolidation, right greater than left with an associated small right-sided effusion. Jerome Brady MD Head CT 07/22/17 1253 Signed Impressions: Service Date/Time: Saturday, July 22, 2017 13:26 - CONCLUSION: No acute disease. Derrick Henry MD Chest X-Ray 07/22/17 1253 Signed Impressions: Service Date/Time: Saturday, July 22, 2017 13:01 - CONCLUSION: No acute disease. Derrick Henry MD Chest X-Ray 07/22/17 0000 Signed Impressions: Service Date/Time: Saturday, July 22, 2017 22:10 - CONCLUSION: No acute disease. Left subclavian central line with tip in the SVC. Jax De Leon MD Chest CT 07/22/17 0000 Signed Impressions: Service Date/Time: Saturday, July 22, 2017 13:30 - CONCLUSION: No acute disease. Derrick Henry MD Abdomen/Pelvis CT 07/22/17 0000 Signed Impressions: Service Date/Time: Saturday, July 22, 2017 13:30 - CONCLUSION: Edema seen throughout the subcutaneous tissues at the right upper abdomen extending from the midline anteriorly and posterior along the right lateral aspect of the abdomen. No focal fluid collection is seen. Inflammatory/infectious processes versus post traumatic change in the appropriate history. Derrick Henry MD ([facility]) Assessment and Plan Problem List: (1) Acute kidney injury ICD Codes: N17.9 - Acute kidney failure, unspecified Status: Acute Plan: Normal renal function at baseline SHARONA due to sepsis, renal hypoperfusion Imaging negative for obstruction She is non oliguric Renal function has improved as of today Initial UA without proteinuria Continue supportive care Change IVF to D51/2 NS @ 75 cc/hr Minimize nephrotoxic agents, dose appropriate to renal function Repeat renal panel in am (2) Severe sepsis ICD Codes: A41.9 - Sepsis, unspecified organism; R65.20 - Severe sepsis without septic shock Status: Acute Plan: Most likely due to cellulitis of right flank , was to have I&D today Pressors to maintain MAP > 65mmHg Continue IVF Antibiotics include Zosyn and Clindamycin Cultures have been sent. (3) Hypotension ICD Codes: I95.9 - Hypotension, unspecified Status: Acute Plan: See above Currently she is requiring phenylephrine and Levophed (4) A-fib ICD Codes: I48.91 - Unspecified atrial fibrillation Plan: On amiodarone gtt continue rate control measures (Adri Osorio) Assessment and Plan patient was seen and examined on 07/24/17. Agree with above assessment and plan. Renal function is better. Urine output has improved. Avoid nephrotoxic agents. Patient to go to OR for debridement. (Jony Robert MD) Problem Qualifiers (1) Hypotension: Qualified Codes: I95.9 - Hypotension, unspecified Adri Osorio Jul 24, 2017 13:10 Jony Robert MD July 25, 2017 11:26
--- NOTE | 2017-07-24 14:01 | HHI.PR ---
Immediate Post Op Note Procedure Date: Jul 24, 2017 Pre Op Diagnosis: necrotizing soft tissue infection of abdomen Post Op Diagnosis: same Surgeon: Tip Dumont MD Pharmacy Stock Clerk(s): see or sheet Procedure: wide excision with excisional debridement of necrotizing soft tissue infection 32cm x 18cm x2cm deep, with vac placement Findings: soft tissue edema with necrotic tissue Complications: none Specimen(s) removed: tissue sample sent for path and culture Estimated blood loss: 20cc Anesthesia: General Drains: Hemovac Patient to: PACU Patient Condition: Good Tip Dumont MD Jul 24, 2017 14:01
[2017-07-24] MEDS: DEXT 5%-NACL 0.45% 1000 ML INJ 1,000 ML IV SCH ×2 (15:59→23:20)
[2017-07-24] MEDS: VASOPRESSIN 40 U/D5W 100 ML Titrate, Post Cardiac Surgery IV PRN ×2 (16:28)
[2017-07-24 16:46] LABS: TROPONIN I 0.11 NG/ML (0.02-0.05)
[2017-07-24] MEDS ORDERED: NOREPINEPHRINE-DEXTROSE DRIP 250 ML IV PRN (17:45)
[2017-07-24] MEDS: NOREPINEPHRINE-DEXTROSE DRIP 250 ML IV PRN (17:54)
--- NOTE | 2017-07-24 17:57 | MB ---
cc: Tip Dumont MD DATE: 07/24/2017 CHIEF COMPLAINT: Septic shock, necrotizing soft tissue injury. HISTORY OF PRESENT ILLNESS: The patient is a 62-year-old female noted to have developmental delay, recurrent UTIs, presents with right-sided abdominal flank pain and discoloration. The patient is currently intubated in the ICU, unable to give full history, noted developmental delay and also noted, per her chart, a poor historian. Per notes and per caregiver, who I spoke with on the telephone, noted to have approximately 4 weeks of right hip pain. Caregiver noted patient had several issues with ambulation and noted several falls to the right hip. The patient came 2 days ago with worsening acute onset of pain. The pain is noted to be pretty severe and unremitting. The patient had further workup including CT scan and then a repeat CT scan showing worsening inflammation, cellulitis and soft tissue edema. The patient also noted to have a large bullae and sloughing of skin with significant skin discoloration to the right flank, right torso and breast area. The patient noted to be acutely decompensating with a leukocytosis, WBC of 30,000, a lactate of 5 and noted to be hypotension, on several pressure medications. PAST MEDICAL HISTORY: Per chart, anxiety, depression, developmental delay, mental handicap, migraines, reflux, hypothyroidism, chest pain, UTIs, renal insufficiency, bladder incontinence, back pain. PAST SURGICAL HISTORY: Thyroid, EGD, cholecystectomy, hysterectomy, D and C, colonoscopy. MEDICATIONS: See EMR. ALLERGIES: NO KNOWN DRUG ALLERGIES. FAMILY HISTORY: Mother with diabetes. Sister with lupus. SOCIAL HISTORY: No evidence of smoking, ETOH or IVDA. REVIEW OF SYSTEMS: Full comprehensive review of systems unable to obtain. GENERAL: The patient noted to be in septic shock. HEENT: Intubated. RESPIRATORY: Per note, no evidence of cough or wheeze. HEART: No evidence of palpitations; however, tachycardic, hypotension. ABDOMEN: Complained of right torso, abdominal pain, discoloration. INTEGUMENT: Noted to be a large lesion to right hip, flank, and torso area. NEUROLOGIC: Unable to assess. PSYCHIATRIC: History of altered mental status, unable to obtain. ENDOCRINE: Unable to obtain, hypothyroid. PHYSICAL EXAMINATION: GENERAL: The patient in moderate distress. VITAL SIGNS: Temperature 98.7, pulse 104, respiration 18, blood pressure 78/50, saturation 98%. HEENT: Pupils equal, round, reactive. ET tube in place. Moist mucous membranes. NECK: Supple. Trachea midline. LUNGS: Bilateral expansion, coarse. HEART: S1, S2, regular, tachycardic. ABDOMEN: Soft. Mild tenderness to palpation. Large, approximately 32 x 18 cm, abdominal discoloration with skin sloughing and tenderness to palpation. No evidence of crepitus. GENITOURINARY: Within normal limits, [place]. EXTREMITIES: Warm and well perfused. SKIN: As above with, again, large skin sloughing to the right abdomen with discoloration and cellulitis. PSYCHIATRIC: Unable to obtain. LABORATORY AND DIAGNOSTIC DATA: WBC 31.3, hemoglobin 8.9, hematocrit 27.2, platelets 282. Sodium 142, potassium 5, chloride 110, BUN is 61, creatinine is 2, lactate 3.5, calcium 8, AST 42, ALT 20. CT reviewed by myself showing cellulitis, myositis, deep fluid subcutaneous tissues and muscle bellies on right side, torso, extends in her breast, around hip area. ASSESSMENT: The patient is a 62-year-old female, critical illness, septic shock, occurrence of concern of necrotizing fasciitis to torso, hip area. PLAN: After formal workup, patient with above main issues. At this point, I agree with continued pressure support, ICU care, IV antibiotics, pain control. The patient will be taken emergently to the OR for excision and wide debridement of torso, abdomen and hip area. Discussed with Dr. Stewart with [facility] and discussed with caregiver, power of sports official, regarding severity of situation, and will again plan for emergent operative intervention. MD SHARON Kowalski/DUANE , 05:31 PM , 05:56 PM
--- NOTE | 2017-07-24 17:59 | MP ---
cc: Tip Dumont MD DATE OF OPERATION: 07/24/2017 DATE OF PROCEDURE: 07/24/2017 PREOPERATIVE DIAGNOSIS: Necrotizing soft tissue infection of abdomen, right hip area, right torso area measuring approximately 32 x 18 inches x 2 inches deep. POSTOPERATIVE DIAGNOSIS: Necrotizing soft tissue infection of abdomen, right hip area right torso area measuring approximately 32 x 18 inches x 2 inches deep. PROCEDURE PERFORMED: Wide excisional debridement of necrotizing soft tissue infection, area of 32 x 18 x 2 cm with VAC placement. SURGEON: Tip Dumont MD TAPER PRINTED CIRCUIT LAYOUT: See anesthesia sheet. ANESTHESIA: GETA. IV FLUIDS: See anesthesia sheet. ESTIMATED BLOOD LOSS: 20 mL. DRAINS: Hemovac placement. COMPLICATIONS: None. WOUND CLASSIFICATION: Contaminated, infected. FINDINGS: Evidence of edematous tissue with severe necrotic soft tissue infection. SPECIMENS: Tissue sent for culture and tissue sent for pathology. INDICATIONS: The patient is a 62-year-old female who presents with acute onset of right flank discoloration and necrotizing soft tissue infection. Decision was made for emergent operative intervention. DETAILS OF PROCEDURE: The patient was taken to the operating suite, placed in supine position with a towel roll for partial lateral decubitus. She was prepped and draped in the usual sterile fashion after induction of endotracheal anesthesia. The patient already had ET tube in place. Brief timeout was done stating correct patient, procedure, surgical site. Exploration of the right-sided abdomen was done. There was noted to be a large expansive area with significant skin sloughing and discoloration. Incision was made over this with Bovie electrocautery on dissection incision. The soft tissue was noted to have very poor vascularization with significant edema and infected tissue. A wide, large debridement was done with Bovie electrocautery and using a 10 blade scalpel to excise expansive area to the right flank, right torso, partial inferior breast. Hemostasis was obtained with Bovie electrocautery, dissection done down to fascia in healthy tissue plane. There was an anterior skin discoloration that was 2 x 4 cm, which separate incision was made coring out a 2 x 4 cm piece of tissue down to fascia. Pulse lavage irrigation with antibiotic was done to fully irrigate and debride the wound. Again, this was an excisional debridement of a significant amount of soft tissue that was infected. Once adequate hemostasis was obtained, the wound was measured to be 32 cm x 18 cm x 2 cm deep. A VAC sponge was cut to size. Some undermining was done in the anterior abdominal wall where a second sponge was placed also up near breast tissue area. Three smaller sponges were placed in order to get adequate coverage of this area. A stapler was used to secure the sponges in place. A plastic drape was then placed. The track pad was then placed and placed to suction without evidence of leaking. The patient remained critical and was transferred back to ICU for further resuscitation and close management. All lap and instrument counts were correct at the end of the procedure. The patient tolerated the procedure, no complication. MD SHARON Kowalski/DUANE , 05:38 PM , 05:59 PM MEET
[2017-07-24] MEDS: HYDROCORTISONE SOD SUCCINATE 100 MG VIAL IV PUSH SCH (20:23)
--- NOTE | 2017-07-24 20:56 | EKG ---
Date Performed: 07/24/2017 Time Performed: 03:07:54 PTAGE: 62 years EKG: Atrial fibrillation with uncontrolled ventricular response Extensive ST-T changes are nonsp ecific Abnormal ECG NO PREVIOUS TRACING DOCTOR: Bimal Coats Interpretating Date/Time 07/24/2017 20:55:49
[2017-07-25] VITALS (19 sets, daily range): BP systolic 87–158; BP diastolic 47–76; PULSE 62–80; RESP 14–18; TEMP 98.7–99.6; O2SAT 93–100
[2017-07-25] MEDS: PIPERACIL-TAZO 3.375 GM PREMIX 50 ML IV SCH ×3 (00:49→17:18)
[2017-07-25] MEDS: INSULIN ASPART SUPPLEMENTAL SCALE SQ SCH ×3 (00:50→08:23)
[2017-07-25 01:36] LABS: MAGNESIUM 1.2 MG/DL (1.5-2.5); PHOSPHORUS 2.6 MG/DL (2.5-4.9); TROPONIN I 0.07 NG/ML (0.02-0.05)
[2017-07-25] MEDS: AMIODARONE INJ 450 MG in SODIUM CHLOR 0.9% (EXCEL) INJ 241 ML IV PRN ×2 (03:54→18:52)
[2017-07-25] MEDS: CHLORHEXIDINE GLUCONATE 2 % 1 PACK (2 CLOTHS)(taper/protocol) TOPICAL SCH (04:00)
[2017-07-25] MEDS: LEVOTHYROXINE SODIUM 75 MCG TAB PO SCH (05:36)
[2017-07-25] MEDS: HYDROCORTISONE SOD SUCCINATE 100 MG VIAL IV PUSH SCH ×3 (05:36→21:03)
[2017-07-25] MEDS: CLINDAMYCIN 600 MG/NS PREMIX 50 ML IV SCH ×4 (05:36→21:03)
[2017-07-25] MEDS: LEVOTHYROXINE SODIUM 100 MCG TAB PO SCH (05:36)
[2017-07-25 05:48] LABS: HEMOGLOBIN 8.9 GM/DL (11.6-15.3); MEAN CELL VOLUME 82.3 FL (80.0-100.0); MEAN CORPUSCULAR HGB CONC 32.8 % (32.0-36.0); MEAN PLATELET VOLUME 6.7 FL (7.0-11.0); PLATELET COUNT 190 TH/MM3 (150-450); RED BLOOD COUNT 3.28 MIL/MM3 (4.00-5.30); RED CELL DISTRIBUTION WIDTH 15.3 % (11.6-17.2); WHITE BLOOD COUNT 30.4 TH/MM3 (4.0-11.0)
[2017-07-25 05:53] LABS: INTERNATIONAL NORMALIZED RATIO 1.6 RATIO; PROTHROMBIN TIME - PATIENT 16.3 SEC (9.8-11.6)
[2017-07-25 06:30] LABS: ALBUMIN 1.1 GM/DL (3.4-5.0); ALKALINE PHOSPHATASE 112 U/L (45-117); ALT (GPT) 32 U/L (10-53); AST (GOT) 38 U/L (15-37); BICARBONATE 18.2 MEQ/L (21.0-32.0); BLOOD UREA NITROGEN 52 MG/DL (7-18); CALCIUM 7.8 MG/DL (8.5-10.1); CHLORIDE 101 MEQ/L (98-107); CREATININE 1.93 MG/DL (0.50-1.00); GLOMERULAR FILTRATION RATE 26 ML/MIN (>89); GLUCOSE,RANDOM 214 MG/DL (74-106); RANDOM VANCOMYCIN 19.1 COMMENT; SODIUM (NA) 131 MEQ/L (136-145); TOTAL BILIRUBIN ADULT 0.9 MG/DL (0.2-1.0); TOTAL PROTEIN 4.1 GM/DL (6.4-8.2)
[2017-07-25] MEDS: SODIUM CHLORIDE 0.9% FLUSH 10 ML FLUSH IV FLUSH SCH ×2 (08:21→21:00)
[2017-07-25] MEDS: CHLORHEXIDINE 0.12% (ORAL KIT) 15 ML CUP MT SCH ×2 (08:21→20:00)
[2017-07-25] MEDS: FAMOTIDINE 20 MG TAB PO SCH ×2 (08:22→21:02)
[2017-07-25] MEDS: MULTIVITAMIN-OPHTHALMIC 1 TAB PO SCH (08:22)
[2017-07-25] MEDS: DOCUSATE SODIUM 50 MG/SENNA 8.6 MG TAB PO SCH ×2 (08:22→21:00)
[2017-07-25] MEDS: CALCIUM/VITAMIN D 250 MG/125 U TAB PO SCH (08:22)
[2017-07-25] MEDS: DEXT 5%-NACL 0.45% 1000 ML INJ 1,000 ML IV SCH (08:24)
[2017-07-25 08:32] LABS: BANDS 32 % (0-6); CORRECTED NUCLEATED RBC 2 /100 WBC (0-0); LYMPHOCYTES 1 % (9-44); METAMYELOCYTES 1 % (0-1); MONOCYTES 2 % (0-8); NEUTROPHIL # MANUAL DIFF 29.5 TH/MM3 (1.8-7.7); NUCLEATED RED BLOOD CELL 2 (0-0); POLYS (SEG NEUTROPHILS) 64 % (16-70)
[2017-07-25 08:33] LABS: TOXIC GRANULATION 1+ (NORMAL); TOXIC VACUOLATION PRESENT (NONE SEEN)
--- NOTE | 2017-07-25 08:35 | HHI.CCPN ---
Subjective Remarks/Hospital Course This is a 62-year-old female with a history of developmental delay and recurrent urinary tract infections who presents with new onset right-sided abdominal and flank pain. Per the [facility] admission note this is been going on for approximately 4 weeks. Patient has a history of developmental delay and is difficult to get a complete history from her, no analysis with her on my evaluation. On my evaluation she endorses flank pain radiating around to her chest. She endorses subjective chills. Denies recent fevers to me. Also endorses nausea, vomiting. In the emergency department she was found to have significant erythema, rubor, dolor, and edema from approximately the fifth intercostal space down to the eighth or ninth intercostal space wrapping around from the midline in the back all the way around to just medial to the breast. CT scan of the abdomen and pelvis confirms significant subcutaneous edema, but this area of edema appears to be contained by intact fascial planes, particularly in the midline of the back. Laboratory evidence is significant for a white blood cell count of 27k, creatinine is 3.58, potassium 5.4, bicarb of 17.9, anion gap elevated at 15, BUN of 64, an initial lactate of 5.1. In the emergency department she received 3 L of crystalloid IV fluids. Despite this she is hypotensive with a mean arterial pressure of 51. Critical care medicine is consulted to evaluate manage her presumed septic shock secondary to severe cellulitis of the trunk. I have given her an additional liter of crystalloid and then placed central venous access, see separate procedure note for details. In addition her lactate is starting to clear and is now 2.9 with an more currently pending, however it is not clearing fast enough and she remains oliguric. I placed a Terrazas for accurate hourly I's and O's. The remainder of the review systems for the patient is negative except documented in the HPI, although this is severely limited by her baseline developmental delay. Subjective 07/23: Patient remains on vasopressors, noted metabolic acidosis, bicarbonate level of 15. Sodium bicarbonate infusion initiated. 07/24 Patient was intubated early this morning now on Vasopressin and Neosyn 300 mics in addition patient is on Amio and Bicarb drips. WBC increased 31. CT abd/pelvis showed right sided cellulites and developing myositis. 07/25 Patient went to OR yesterday s/p wide excisional debridement of soft tissue infection with VAC placement for necrotizing soft tissue infection of abdomen, right hip area right torso area measuring approximately 32 x 18 inches x 2 inches deep. She remains on Vasopressin 0.04 and Neosyn down to 120 mics. On Amio drip. Objective Vital Signs Date Time Temp Pulse Resp B/P (MAP) Pulse Ox O2 Delivery O2 Flow Rate FiO2 07/25/17 08:15 100 40 07/25/17 06:00 66 07/25/17 05:36 105/53 07/25/17 04:00 99.4 18 07/22/17 14:45 Room Air Intake and Output 07/25/17 07/25/17 07/26/17 08:00 16:00 00:00 Intake Total 350 ml Output Total 1150 ml Balance -800 ml Result Diagram: 07/25/17 0500 07/25/17 0500 Other Results Laboratory Tests Test 07/24/17 11:57 07/24/17 15:45 07/24/17 18:00 07/25/17 01:00 Blood Gas Puncture Site DRAWN IN OR Blood Gas Patient Temperature 98.6 Blood Gas HCO3 19 mmol/L Blood Gas Base Excess -5.4 mmol/L Blood Gas Oxygen Saturation 95 % Arterial Blood pH 7.38 Arterial Blood Partial Pressure CO2 32 mmHg Arterial Blood Partial Pressure O2 404 mmHg Arterial Blood Oxygen Content 12.5 Vol % Arterial Blood Carboxyhemoglobin 0.1 % Arterial Blood Methemoglobin 2.7 % Blood Gas Hemoglobin 8.5 G/DL Blood Gas Inspired Oxygen 100 % Total Creatine Kinase 788 U/L 357 U/L Creatine Kinase MB 13.0 NG/ML 7.9 NG/ML Creatine Kinase MB % 1.6 % 2.2 % Troponin I 0.11 NG/ML 0.07 NG/ML Urine Total Volume 24 Hours 500 ML Urine Total Protein 24 Hour 600 MG/24HR Phosphorus Level 2.6 MG/DL Magnesium Level 1.2 MG/DL Test 07/25/17 05:00 White Blood Count 30.4 TH/MM3 Red Blood Count 3.28 MIL/MM3 Hemoglobin 8.9 GM/DL Hematocrit 27.0 % Mean Corpuscular Volume 82.3 FL Mean Corpuscular Hemoglobin 27.0 PG Mean Corpuscular Hemoglobin Concent 32.8 % Red Cell Distribution Width 15.3 % Platelet Count 190 TH/MM3 Mean Platelet Volume 6.7 FL CBC Comment AUTO DIFF Prothrombin Time 16.3 SEC Prothromb Time International Ratio 1.6 RATIO Blood Urea Nitrogen 52 MG/DL Creatinine 1.93 MG/DL Random Glucose 214 MG/DL Total Protein 4.1 GM/DL Albumin 1.1 GM/DL Calcium Level 7.8 MG/DL Alkaline Phosphatase 112 U/L Aspartate Amino Transf (AST/SGOT) 38 U/L Alanine Aminotransferase (ALT/SGPT) 32 U/L Total Bilirubin 0.9 MG/DL Sodium Level 131 MEQ/L Potassium Level 4.5 MEQ/L Chloride Level 101 MEQ/L Carbon Dioxide Level 18.2 MEQ/L Anion Gap 12 MEQ/L Estimat Glomerular Filtration Rate 26 ML/MIN Total Creatine Kinase 274 U/L Creatine Kinase MB 6.3 NG/ML Creatine Kinase MB % 2.3 % Random Vancomycin Level 19.1 COMMENT Imaging Last Impressions Chest X-Ray 07/24/17 0000 Signed Impressions: Service Date/Time: Monday, July 24, 2017 04:28 - CONCLUSION: 1. Endotracheal and nasogastric tubes appear to be appropriately positioned. Stable position of left subclavian central venous catheter. 2. Lungs remain clear. Jerome Brady MD Chest CT 07/24/17 0000 Signed Impressions: Service Date/Time: Monday, July 24, 2017 05:36 - CONCLUSION: 1. Stranding in the subcutaneous tissues about the right flank with fluid adjacent to the latissimus dorsi. Stranding extends up into the right breast. Findings could represent developing cellulitis. 2. In addition, there is now a small right-sided effusion with bilateral dependent atelectatic changes. Jerome Brady MD Abdomen/Pelvis CT 07/24/17 0000 Signed Impressions: Service Date/Time: Monday, July 24, 2017 05:36 - CONCLUSION: 1. CT findings concerning for a right sided cellulitis and developing myositis. There is some asymmetric prominence of the latissimus dorsi muscle on the right. Unorganized fluid in the deep subcutaneous tissues adjacent to the muscle belly. No drainable fluid collection, however. 2. Developing dependent areas of consolidation, right greater than left with an associated small right-sided effusion. Jerome Brady MD Head CT 07/22/17 1253 Signed Impressions: Service Date/Time: Saturday, July 22, 2017 13:26 - CONCLUSION: No acute disease. Derrick Henry MD Objective Remarks GENERAL: Elderly female, lying in bed intubated and on multiple pressors. HEENT: Normocephalic. Atraumatic. Pupils equal, round, reactive, conjugate. Mucous membranes are moist NECK: Trachea is midline. There is no JVD. CHEST: Equal chest rise. Room air. CARDIOVASCULAR: Tachycardic rate, regular rhythm. Continues on vasopressin and norepinephrine infusion ABDOMEN: Soft, nontender, nondistended. No guarding. There is significant tenderness to palpation over the right flank and edema and erythema with rubor and calor present from midline extending around to just medial to the right breast. This extends cephalad from approximately the fifth intercostal space down to approximately the ninth intercostal space. There is no fluctuance. There is no mass. The area of erythema is blanchable. There are no rashes or pustules in the area of edema. MUSCULOSKELETAL: Pulses 2+. No peripheral edema. NEUROLOGICAL: Intubated Date of Insertion: Jul 22, 2017 A/P Assessment and Plan Assessment: 62-year-old female with what appears to be a severe right flank cellulitis. Unclear the origin of cellulitis is as I do not see any trauma, or abrasions that would be a site or nidus for infection. Certainly unilateral erythema in what appears to be a dermatomal distribution raises concern over herpes zoster infection, however there are no lesions at all within the area of edema and erythema, and this looks much more like a cellulitis then any dermatomal rash. I agree with vancomycin and Zosyn as a choice of empiric antibiotic coverage. Agree with blood cultures. Patient clearly is in septic shock with elevated lactate and endorgan damage. We will continue to hydrate her with IV fluids as it still appears she is intravascularly volume deplete. If she continues to worsen or her shock does not improve, I would recommend adding clindamycin for toxin production, although this does not appear to be necrotizing soft tissue infection as by CT scan it appears to keep fascial planes intact. Remains very critically ill with life-threatening septic shock and multiple organ dysfunction. Active problems: VDRF Septic shock Right flank severe cellulitis Acute kidney injury Leukocytosis Elevated CK Anemia Lactic acidemia Hypothyroidism Plan: Plan by systems: Neurologic: Neuro checks per ICU protocol Fentanyl infusion for sedation and vent synchrony. Daily sedation vacation when appropriate Tylenol 650 mg every 6 hours as needed for pain and/or temperature greater than 100.5 Respiratory: Continue with vent support keep sats >92% On PRVC 18, TV 500, IT:0.8, PEEP:5, FIO2: 40% Bronchodilators, ICU vent bundle. Cardiovascular: Continue with pressors ( On Neosyn, vasopressin)keep MAP>65mmHg On stress dose steroids- HC 100mg IV Q8 On Amio drip for Afib Serial lactic monitoring- Lactic acid 3.4 yesterday CVP monitoring, For 2D echo Renal: Monitor renal function, I/O's, avoid nephrotoxins Cr: 1.93, Renal is following- . On D51.2@75ml/hr, monitor CK's Renalis following FEN/GI: On Pepcid 10mg BID for GI prophylaxis Continue with IVF ID: Continue with abx ( Vanco, Clindamycin, Zosyn) ID is following Follow up on BC from today 07/23: urine cx: No growth 07/22 BC: NGTD 07/24 s/p wide excisional debridement of soft tissue infection with VAC placement for necrotizing soft tissue infection of abdomen, right hip area right torso area measuring approximately 32 x 18 inches x 2 inches deep. Surgery -Dr. Dumont. Endocrine: Hold levothyroxine 112 mcg/day. TSH:0.08 on 07/24 Glucose monitoring per ICU protocol. -- Increase SSI to medium scale Prophylaxis: GI Prophylaxis Famotidine DVT Prophylaxis -- SCDs Lines: Central line placed on 07/22. Peripheral IVs 2, Left Ax Art line Patient is critically ill with resp failure, septic shock, renal failure, leukocytosis CCT 40 mins Chanda Sierra MD July 25, 2017 08:35
[2017-07-25] MEDS: INSULIN NovoLIN REGULAR SUPPLEMENTAL SCALE SQ SCH ×4 (08:45→20:45)
[2017-07-25] MEDS ORDERED: GLUCAGON 1 MG/ML VIAL OTHER PRN (08:45)
[2017-07-25] MEDS ORDERED: MAGNESIUM SULFATE 1 GM PREMIX 100 ML IV ONE (08:45)
[2017-07-25] MEDS: BUDESONIDE 9 MG PO SCH (09:00)
[2017-07-25] MEDS ORDERED: DIGOXIN 0.5 MG/2 ML VIAL IVS SCH (09:00)
[2017-07-25] MEDS: VASOPRESSIN 40 U/D5W 100 ML Titrate, Post Cardiac Surgery IV PRN ×2 (09:22)
[2017-07-25] MEDS: PHENYLEPHRINE INJ 80 MG in DEXTROSE 5% IN WATE 500 ML INJ 492 ML IV PRN ×2 (09:23)
[2017-07-25 10:00] LABS: MAGNESIUM 1.3 MG/DL (1.5-2.5); PHOSPHORUS 3.3 MG/DL (2.5-4.9)
--- NOTE | 2017-07-25 10:18 | HHI.FPPN ---
Subjective Remarks Patient seen this AM on rounds. Nursing staff reports patient is doing better from a BP standpoint, now requiring less pressor support. Patient continues to be intubated and sedated. POD 1 from wide excisional debridement of R torso. (Jeffrey Taylor MD R1) Objective Vitals Vital Signs Date Time Temp Pulse Resp B/P (MAP) Pulse Ox O2 Delivery O2 Flow Rate FiO2 07/25/17 09:23 72 98/51 07/25/17 09:22 72 98/51 07/25/17 08:15 100 40 07/25/17 08:00 98.9 62 15 101/62 (75) 100 112/56 (74) 07/25/17 06:31 100 40 07/25/17 06:00 66 07/25/17 05:36 82 105/53 07/25/17 04:00 99.4 69 18 96/61 (73) 100 112/56 (74) 07/25/17 04:00 40 07/25/17 04:00 69 07/25/17 03:54 69 137/66 07/25/17 03:27 69 125/61 07/25/17 02:30 72 141/67 07/25/17 02:00 74 149/69 07/25/17 02:00 74 07/25/17 01:44 100 40 07/25/17 01:30 75 165/73 07/25/17 01:30 75 165/73 07/25/17 01:15 77 150/67 07/25/17 01:00 79 133/61 07/25/17 00:00 40 07/25/17 00:00 99.6 78 14 134/65 (88) 100 158/69 (98) 07/25/17 00:00 78 07/24/17 23:58 80 141/62 07/24/17 23:56 80 141/62 07/24/17 23:45 79 167/73 07/24/17 23:40 79 167/73 07/24/17 23:30 78 154/69 07/24/17 23:19 79 168/73 07/24/17 23:19 79 168/73 07/24/17 22:59 80 137/60 07/24/17 22:59 80 137/60 07/24/17 22:00 83 4/30/18 21:00 82 88/65 07/24/17 20:23 81 95/69 07/24/17 20:00 83 07/24/17 20:00 40 07/24/17 20:00 99.6 83 17 112/49 (70) 96 07/24/17 19:33 92 40 07/24/17 19:30 82 129/56 07/24/17 19:30 82 129/56 07/24/17 19:15 81 127/53 (77) 07/24/17 18:55 79 97/42 07/24/17 18:30 77 1 86/53 (64) 90 120/55 (76) 07/24/17 18:01 74 2 82/45 (57) 89 113/51 (71) 07/24/17 18:00 74 4 74/34 (47) 90 108/49 (68) 07/24/17 17:54 74 99/45 07/24/17 17:39 73 8 88/48 (61) 92 98/45 (62) 07/24/17 17:30 74 5 58/40 (46) 94 108/54 (72) 07/24/17 17:01 74 18 74/40 (51) 91 113/62 (79) 07/24/17 17:00 75 18 95/58 (70) 85 07/24/17 16:31 79 20 111/57 (75) 95 111/55 (73) 07/24/17 16:30 96 40 07/24/17 16:28 79 113/55 07/24/17 16:00 99.2 74 18 113/78 (90) 96 138/65 (89) 07/24/17 16:00 40 07/24/17 16:00 82 113/65 07/24/17 15:58 74 133/62 07/24/17 15:30 74 18 113/58 (76) 94 130/60 (83) 07/24/17 15:00 74 19 108/57 (74) 96 122/56 (78) 07/24/17 14:30 72 18 104/59 (74) 96 129/59 (82) 07/24/17 14:00 71 18 99/63 (75) 96 0/0 (0) 07/24/17 13:57 71 10 99/63 (75) 96 0/0 (0) 07/24/17 13:30 72 98/46 (63) 07/24/17 13:22 69 4 87/49 (62) 07/24/17 13:17 70 4 95/38 (57) 07/24/17 13:13 74 0 74/30 (45) 07/24/17 13:07 97.8 74 0 92/39 (56) 07/24/17 12:00 40 07/24/17 11:40 100 100 07/24/17 11:19 79 33 96/67 (77) 100 07/24/17 11:00 80 18 101/56 (71) 94 07/24/17 10:04 116 125/79 07/24/17 10:00 104 18 98/72 (81) 93 110/63 (79) I/O 07/24/17 07/24/17 07/24/17 07/25/17 07/25/17 07/25/17 07:00 15:00 23:00 07:00 15:00 23:00 Intake Total 2091 ml 1600 ml 2470 ml 1830 ml Output Total 366 ml 50 ml 175 ml 1150 ml Balance 1725 ml 1550 ml 2295 ml 680 ml IV Total 2091 ml 600 ml 2470 ml 1830 ml Other 1000 ml Output Urine Total 366 ml 175 ml 350 ml Drainage Total 800 ml Estimated Blood Loss 50 ml # Bowel Movements 0 0 (Jeffrey Taylor MD R1) Result Diagram: 07/25/17 0500 07/25/17 0500 Objective Remarks GENERAL: Elderly female, lying in bed intubated and sedated HEENT: Normocephalic. NECK: Trachea is midline. There is no JVD. CHEST: Equal chest rise. CARDIOVASCULAR: Warm and well perfused ABDOMEN: Soft, nondistended. Wound vac in place that spans from just distal of the R breast down to the R hip. Measurements are roughly 32 x 18 cm. MUSCULOSKELETAL: Difficult to palpate distal pulses of BLE. 2-5 toes of R foot are purple and cool to the touch. NEUROLOGICAL: Sedated. (Jeffrey Taylor MD R1) Date of Insertion: Jul 22, 2017 (Jeffrey Taylor MD R1) A/P Assessment and Plan Patient is a 62 year old female who presents to the ED via EMS for evaluation of right-sided abdominal, flank and back erythema, swelling and pain. Patient was found to be hypotensive in transit to hospital with systolic pressures in the 70s. Patient has received multiple fluid boluses with minimal improvement. Patient admitted for management of pain and hypotension. Critical care was consulted for pressure support as patient is in severe septic shock. Lactate on admission of 5.1, most recent lactate of 3.3. Patient was started on vancomycin and Zosyn on admission. Patient deteriorated and was intubated on . Started on clindamycin. Surgery performed wide debridement of R torso and placed wound vac. Patient continues to be intubated and sedated on 07/25. Discharge Planning Unclear at this point, patient remains critically ill (Jeffrey Taylor MD R1) Attending Attestation Patient seen and examined. Case reviewed and discussed with the resident team and with her nurses. Palliative care meeting is set up for tomorrow with her guardian. Agree with plan of care as discussed with me and documented in the resident note. (Lamar Ortiz MD) Problem List: (1) Severe sepsis ICD Codes: A41.9 - Sepsis, unspecified organism; R65.20 - Severe sepsis without septic shock Status: Acute Plan: Being medically managed by critical care Currently in severe sepsis shock with end organ damage. Intubated since 07/24 Suspected source is cellulitis/abdominal wall infection CT scan reviewed and showing edema and developing myositis Antibiotics: Vancomycin, Zosyn, clindamycin Pressure support per critical care - requiring less pressors on 07/25 per nursing staff (2) Abdominal wall cellulitis ICD Codes: L03.311 - Cellulitis of abdominal wall Plan: Patient presented with abdominal wall pain, see sepsis plan above CT scan on admission showed edema throughout the subcutaneous tissues of the right upper abdomen CT scan on 07/24 concerning for right-sided cellulitis and developing myositis Wide debridement with wound vac placed on 07/24 (3) Hypotension ICD Codes: I95.9 - Hypotension, unspecified Status: Acute Plan: Pressure support per critical care - (4) Acute kidney injury ICD Codes: N17.9 - Acute kidney failure, unspecified Status: Acute Plan: Patient admitted with significant AK I. Suspected to be secondary to septic shock Has continued to have elevated creatinine during hospitalization, slowly improving Nephrology consulted on 07/24 (5) Hypothyroidism ICD Codes: E03.9 - Hypothyroidism Status: Chronic Plan: Patient with history of hypothyroidism. * Continue home meds. (6) GERD (gastroesophageal reflux disease) ICD Codes: K21.9 - Gastroesophageal reflux disease Status: Acute Plan: Patient with history of GERD. * Continue home meds. (7) Fluid, Electrolyte, Nutrition, and Prophylaxis Status: Acute Plan: Fluid: Aggressive IV fluids being managed by critical care Electrolyte: * Monitor and replete as necessary. Nutrition: * Diabetic diet DVT Prophylaxis: * SCDs. (Jeffrey Taylor MD R1) Problem Qualifiers (1) Hypotension: Qualified Codes: I95.9 - Hypotension, unspecified Jeffrey Taylor MD R1 July 25, 2017 10:18 Lamar Ortiz MD July 25, 2017 14:18
[2017-07-25] MEDS ORDERED: FUROSEMIDE 40 MG/4 ML VIAL IV PUSH ONE (11:00)
--- NOTE | 2017-07-25 11:00 | HHI.NPPN ---
Subjective Renal Failure: Acute Interval History S/P extensive I&D right flank yesterday. Wound vac x [address]. She is still on vasopressin and neosynepherine. Intubated and sedated on vent. Renal function is slightly better. (Adri Osorio) Review of Systems General General Remarks unable to obtain (Adri Osorio) Objective Data Data Vital Signs Date Time Temp Pulse Resp B/P (MAP) Pulse Ox O2 Delivery O2 Flow Rate FiO2 07/25/17 10:13 100 40 07/25/17 09:23 72 98/51 07/25/17 09:22 72 98/51 07/25/17 08:15 100 40 07/25/17 08:00 64 07/25/17 08:00 98.9 62 15 101/62 (75) 100 112/56 (74) 07/25/17 06:31 100 40 07/25/17 06:00 66 07/25/17 05:36 82 105/53 07/25/17 04:00 99.4 69 18 96/61 (73) 100 112/56 (74) 07/25/17 04:00 40 07/25/17 04:00 69 07/25/17 03:54 69 137/66 07/25/17 03:27 69 125/61 07/25/17 02:30 72 141/67 07/25/17 02:00 74 149/69 07/25/17 02:00 74 07/25/17 01:44 100 40 07/25/17 01:30 75 165/73 07/25/17 01:30 75 165/73 07/25/17 01:15 77 150/67 07/25/17 01:00 79 133/61 07/25/17 00:00 40 07/25/17 00:00 99.6 78 14 134/65 (88) 100 158/69 (98) 07/25/17 00:00 78 07/24/17 23:58 80 141/62 07/24/17 23:56 80 141/62 07/24/17 23:45 79 167/73 07/24/17 23:40 79 167/73 07/24/17 23:30 78 154/69 07/24/17 23:19 79 168/73 07/24/17 23:19 79 168/73 07/24/17 22:59 80 137/60 07/24/17 22:59 80 137/60 07/24/17 22:00 83 07/24/17 21:00 82 88/65 07/24/17 20:23 81 95/69 07/24/17 20:00 83 07/24/17 20:00 40 07/24/17 20:00 99.6 83 17 112/49 (70) 96 07/24/17 19:33 92 40 07/24/17 19:30 82 129/56 07/24/17 19:30 82 129/56 07/24/17 19:15 81 127/53 (77) 07/24/17 18:55 79 97/42 07/24/17 18:30 77 1 86/53 (64) 90 120/55 (76) 07/24/17 18:01 74 2 82/45 (57) 89 113/51 (71) 07/24/17 18:00 74 4 74/34 (47) 90 108/49 (68) 07/24/17 17:54 74 99/45 07/24/17 17:39 73 8 88/48 (61) 92 98/45 (62) 07/24/17 17:30 74 5 58/40 (46) 94 108/54 (72) 07/24/17 17:01 74 18 74/40 (51) 91 113/62 (79) 07/24/17 17:00 75 18 95/58 (70) 85 07/24/17 16:31 79 20 111/57 (75) 95 111/55 (73) 07/24/17 16:30 96 40 07/24/17 16:28 79 113/55 07/24/17 16:00 99.2 74 18 113/78 (90) 96 138/65 (89) 07/24/17 16:00 40 07/24/17 16:00 82 113/65 07/24/17 15:58 74 133/62 07/24/17 15:30 74 18 113/58 (76) 94 130/60 (83) 07/24/17 15:00 74 19 108/57 (74) 96 122/56 (78) 07/24/17 14:30 72 18 104/59 (74) 96 129/59 (82) 07/24/17 14:00 71 18 99/63 (75) 96 0/0 (0) 07/24/17 13:57 71 10 99/63 (75) 96 0/0 (0) 07/24/17 13:30 72 98/46 (63) 07/24/17 13:22 69 4 87/49 (62) 07/24/17 13:17 70 4 95/38 (57) 07/24/17 13:13 74 0 74/30 (45) 07/24/17 13:07 97.8 74 0 92/39 (56) 07/24/17 12:00 40 07/24/17 11:40 100 100 07/24/17 11:19 79 33 96/67 (77) 100 07/24/17 11:00 80 18 101/56 (71) 94 (Adri OsorioP) -: 07/25/17 0500 07/25/17 0500 Microbiology 07/24/17 Fungal Smear - Final, Resulted NO FUNGAL ELEMENTS SEEN. 07/24/17 Fungal Culture, Resulted Pending 07/24/17 Acid Fast Stain - Final, Resulted NO ACID FAST BACILLI SEEN 07/24/17 Mycobacterial Culture, Resulted Pending 07/24/17 Gram Stain - Final, Resulted 07/24/17 Wound Culture, Resulted Pending Imaging Last 72 hours Impressions Chest X-Ray 07/24/17 0000 Signed Impressions: Service Date/Time: Monday, July 24, 2017 04:28 - CONCLUSION: 1. Endotracheal and nasogastric tubes appear to be appropriately positioned. Stable position of left subclavian central venous catheter. 2. Lungs remain clear. Jerome Brady MD Chest CT 07/24/17 0000 Signed Impressions: Service Date/Time: Monday, July 24, 2017 05:36 - CONCLUSION: 1. Stranding in the subcutaneous tissues about the right flank with fluid adjacent to the latissimus dorsi. Stranding extends up into the right breast. Findings could represent developing cellulitis. 2. In addition, there is now a small right-sided effusion with bilateral dependent atelectatic changes. Jerome Brady MD Abdomen/Pelvis CT 07/24/17 0000 Signed Impressions: Service Date/Time: Monday, July 24, 2017 05:36 - CONCLUSION: 1. CT findings concerning for a right sided cellulitis and developing myositis. There is some asymmetric prominence of the latissimus dorsi muscle on the right. Unorganized fluid in the deep subcutaneous tissues adjacent to the muscle belly. No drainable fluid collection, however. 2. Developing dependent areas of consolidation, right greater than left with an associated small right-sided effusion. Jerome Brady MD Head CT 07/22/17 1253 Signed Impressions: Service Date/Time: Saturday, July 22, 2017 13:26 - CONCLUSION: No acute disease. Derrick Henry MD Chest X-Ray 07/22/17 1253 Signed Impressions: Service Date/Time: Saturday, July 22, 2017 13:01 - CONCLUSION: No acute disease. Derrick Henry MD Tubes & Lines: [place] Tubes & Lines Comment wound vac x 2 Drip Comment Amiodarone, vasopressin, phenylephrine, fentanyl (Adri Osorio) Physical Exam General Appearance: Well Nourished, Comfortable Appearance Remarks intubated, sedated on vent (Adri Osorio) Throat Throat Exam: Oral Mucosa [place] & Moist (Adri Osorio) Pulmonary Resp Exam: Clear Bilaterally, Breath Sounds Equal (Adri Osorio) Cardiology CV Exam: Regular, Good Perfusion (Adri Osorio) Gastrointestinal/Abdomen GI Exam: Soft, Non-Tender, Bowel Sounds Present (Adri Osorio) Musculoskeletal MS Exam: Joints Intact, Normal Tone, Unable to Ambulate (Adri Osorio) Integumentary Skin Exam: Warm, Dry Skin Remarks large area on right flank and anterior chest s/p I&D. Wound vac in place. Some bruising around border Skin on Back has began o exhibit the same changes (Adri Osorio) Extremeties Extremities Exam: Pedal Pulses Palpable, Trace Edema (Adri Osorio) Neurologic Neuro Exam: Unresponsive, Sedated (Adri Osorio) Assessment/Plan Assessment Summary: SHARONA/Acute Renal Failure Electrolyte Assessment: Hyponatremia Problem List: (1) Acute kidney injury ICD Codes: N17.9 - Acute kidney failure, unspecified Status: Acute Plan: Normal renal function at baseline SHARONA due to sepsis and resulting renal hypoperfusion Renal function improved slightly She is non oliguric, although output may be decreasing Her fluid balance is positive by 14L, weight up 20 kg Stop IVF, she is getting multiple drips and medications throughout the day Give a dose of Lasix. Follow renal function daily Continue supportive care Minimize nephrotoxic agents, dose appropriate to renal function (2) Severe sepsis ICD Codes: A41.9 - Sepsis, unspecified organism; R65.20 - Severe sepsis without septic shock Status: Acute Plan: Necrotizing cellulitis, s/p I&D by surgery Reportedly will go back to OR in 2 days Continue to use pressors to maintain MAP > 65mmHg Antibiotics include Zosyn and Clindamycin; vancomycin has been added, continue cautiously, follow drug levels Cultures negative to date Specimen sent to pathology during surgery, pending results (3) Hypotension ICD Codes: I95.9 - Hypotension, unspecified Status: Acute Plan: See above Currently she is requiring multiple pressors (4) A-fib ICD Codes: I48.91 - Unspecified atrial fibrillation Plan: On amiodarone IV, rhythm is regular consider converting to PO. (Adri Osorio [facility]) Problem List: (1) Acute kidney injury ICD Codes: N17.9 - Acute kidney failure, unspecified Status: Acute Plan: Normal renal function at baseline SHARONA due to sepsis and resulting renal hypoperfusion Renal function improved slightly She is non oliguric, although output may be decreasing Her fluid balance is positive by 14L, weight up 20 kg Stop IVF, she is getting multiple drips and medications throughout the day Give a dose of Lasix. Follow renal function daily Continue supportive care Minimize nephrotoxic agents, dose appropriate to renal function (2) Severe sepsis ICD Codes: A41.9 - Sepsis, unspecified organism; R65.20 - Severe sepsis without septic shock Status: Acute Plan: Necrotizing cellulitis, s/p I&D by surgery Reportedly will go back to OR in 2 days Continue to use pressors to maintain MAP > 65mmHg Antibiotics include Zosyn and Clindamycin; vancomycin has been added, continue cautiously, follow drug levels Cultures negative to date Specimen sent to pathology during surgery, pending results (3) Hypotension ICD Codes: I95.9 - Hypotension, unspecified Status: Acute Plan: See above Currently she is requiring multiple pressors (4) A-fib ICD Codes: I48.91 - Unspecified atrial fibrillation Plan: On amiodarone IV, rhythm is regular consider converting to PO. Plan patient was seen and examined, agree with above assessment and plan. Creatinine is slightly better, positive fluid balance, IVF stopped. Cautious diuresis. (Jony Robert MD) Problem Qualifiers (1) Hypotension: Qualified Codes: I95.9 - Hypotension, unspecified Adri Osorio July 25, 2017 11:00 Jony Robert MD July 25, 2017 11:42
[2017-07-25] MEDS: fentaNYL DRIP 250 ML IV PRN (11:10)
--- NOTE | 2017-07-25 11:20 | HHI.IDPN ---
Subjective Subjective Remarks Most of the history was obtained by review of medical records. Patient shortly being wheeled out to the operating room for surgical exploration of the site of necrotizing fasciitis Septic shock. Ms. Eldridge is a 62-year-old female who reportedly has developmental delays per chart review. Patient presented to the emergency department via EMS for evaluation of right-sided abdominal, flank and back erythema swelling and pain. Patient's care provider and power of tax attorney listed on the chart is Mr. Felipe Nagy who can be contacted at [phone]. Patient had earlier reported to others that she was feeling unwell for the past 4 weeks. Patient reported increase in her migraine symptoms. Patient also reported continuous, nonradiating sharps times burning pain over the right upper quadrant that is expanded to include her right flank and back. She denies any trauma to these areas. Patient reported to others prior to being intubated that she had nausea and vomiting associated with decreased appetite. Patient also had reported to others that she was dizzy and lightheaded. Per review of records it appears that patient has had multiple falls as well as has had urinary incontinence at baseline with decreased urine output over the last few days. Patient also reported subjective symptoms such as burning with urination. Per EMS, patient was found to be hypotensive. Systolic pressure was recorded in the 70s. She received fluid in transit with minimal improvement. In the emergency department she was found to have significant erythema,pain and edema from approximately the fifth intercostal space down to the eighth or ninth intercostal space wrapping around from the midline in the back all the way around to just medial to the breast. CT scan of the abdomen and pelvis confirms significant subcutaneous edema, but this area of edema appears to be contained by intact fascial planes, particularly in the midline of the back. Laboratory evidence is significant for a white blood cell count of 27k, creatinine is 3.58, potassium 5.4, bicarb of 17.9, anion gap elevated at 15, BUN of 64, an initial lactate of 5.1. In the emergency department she received 3 L of crystalloid IV fluids. Critical care medicine is consulted to evaluate manage her presumed septic shock secondary to severe cellulitis of the trunk. Overnight critical care medicine was consulted for worsening sepsis and septic shock. Patient had to be intubated and upon evaluation was found to have evidence suggestive of necrotizing fasciitis involving similar areas as reported on the emergency room but had progressed beyond the line of demarcation. Patient was noted to have significant blisters and blackening of the areas. Critical care medicine change the regimen to Zosyn IV, vancomycin IV and added clindamycin IV and placed a surgical consult. Patient was evaluated by Dr. Thor Dumont of surgery and patient is being wheeled to the operating room shortly. At the time of my evaluation patient is in the ICU currently on high-dose Levophed as well as vasopressin with slight decrease in Levophed requirement after addition of clindamycin IV. Urine output is low. No diarrhea. No diffuse rash or skin changes other than as described. Overnight events reviewed with RN. Remains in ICU. Pressor requirements reduced still on Vasopressin and Neosyn gtt On Amio gtt No fevers No rash No diarrhea remains intubated. Not much secretions. Moves extremities spontaneously. Antibiotics Zosyn IV Vanco IV Clindamycin IV Lines Line sites with no e.o infection Past Medical History Anxiety Depression Developmental delays - mental handicap Headaches/migraines Hypothyroidism GERD Chest pain Hx of UTIs Renal insufficiency Bladder incontinence Chronic back pain Thyroid surgery EGD - 08/30/16 Cholecystectomy - 03/04/15 D&C Hysterectomy Colonoscopy - 07/30/16 and 08/11/15 Allergies: Coded Allergies: No Known Allergies (Verified Allergy, Unknown, 07/22/17) Objective . Vital Signs Date Time Temp Pulse Resp B/P (MAP) Pulse Ox O2 Delivery O2 Flow Rate FiO2 07/25/17 10:13 100 40 07/25/17 09:23 72 98/51 07/25/17 09:22 72 98/51 07/25/17 08:15 100 40 07/25/17 08:00 64 07/25/17 08:00 98.9 62 15 101/62 (75) 100 112/56 (74) 07/25/17 06:31 100 40 07/25/17 06:00 66 07/25/17 05:36 82 105/53 07/25/17 04:00 99.4 69 18 96/61 (73) 100 112/56 (74) 07/25/17 04:00 40 07/25/17 04:00 69 07/25/17 03:54 69 137/66 07/25/17 03:27 69 125/61 07/25/17 02:30 72 141/67 07/25/17 02:00 74 149/69 07/25/17 02:00 74 07/25/17 01:44 100 40 07/25/17 01:30 75 165/73 07/25/17 01:30 75 165/73 07/25/17 01:15 77 150/67 07/25/17 01:00 79 133/61 07/25/17 00:00 40 07/25/17 00:00 99.6 78 14 134/65 (88) 100 158/69 (98) 07/25/17 00:00 78 07/24/17 23:58 80 141/62 07/24/17 23:56 80 141/62 07/24/17 23:45 79 167/73 07/24/17 23:40 79 167/73 07/24/17 23:30 78 154/69 07/24/17 23:19 79 168/73 07/24/17 23:19 79 168/73 07/24/17 22:59 80 137/60 07/24/17 22:59 80 137/60 07/24/17 22:00 83 07/24/17 21:00 82 88/65 07/24/17 20:23 81 95/69 07/24/17 20:00 83 07/24/17 20:00 40 07/24/17 20:00 99.6 83 17 112/49 (70) 96 07/24/17 19:33 92 40 07/24/17 19:30 82 129/56 07/24/17 19:30 82 129/56 07/24/17 19:15 81 127/53 (77) 07/24/17 18:55 79 97/42 07/24/17 18:30 77 1 86/53 (64) 90 120/55 (76) 07/24/17 18:01 74 2 82/45 (57) 89 113/51 (71) 07/24/17 18:00 74 4 74/34 (47) 90 108/49 (68) 07/24/17 17:54 74 99/45 07/24/17 17:39 73 8 88/48 (61) 92 98/45 (62) 07/24/17 17:30 74 5 58/40 (46) 94 108/54 (72) 07/24/17 17:01 74 18 74/40 (51) 91 113/62 (79) 07/24/17 17:00 75 18 95/58 (70) 85 07/24/17 16:31 79 20 111/57 (75) 95 111/55 (73) 07/24/17 16:30 96 40 07/24/17 16:28 79 113/55 07/24/17 16:00 99.2 74 18 113/78 (90) 96 138/65 (89) 07/24/17 16:00 40 07/24/17 16:00 82 113/65 07/24/17 15:58 74 133/62 07/24/17 15:30 74 18 113/58 (76) 94 130/60 (83) 07/24/17 15:00 74 19 108/57 (74) 96 122/56 (78) 07/24/17 14:30 72 18 104/59 (74) 96 129/59 (82) 07/24/17 14:00 71 18 99/63 (75) 96 0/0 (0) 07/24/17 13:57 71 10 99/63 (75) 96 0/0 (0) 07/24/17 13:30 72 98/46 (63) 07/24/17 13:22 69 4 87/49 (62) 07/24/17 13:17 70 4 95/38 (57) 07/24/17 13:13 74 0 74/30 (45) 07/24/17 13:07 97.8 74 0 92/39 (56) 07/24/17 12:00 40 07/24/17 11:40 100 100 . Laboratory Tests Test 07/24/17 02:40 07/25/17 05:00 White Blood Count 31.3 TH/MM3 30.4 TH/MM3 Red Blood Count 3.28 MIL/MM3 3.28 MIL/MM3 Hemoglobin 8.9 GM/DL 8.9 GM/DL Hematocrit 27.2 % 27.0 % Mean Corpuscular Volume 82.9 FL 82.3 FL Mean Corpuscular Hemoglobin 27.1 PG 27.0 PG Mean Corpuscular Hemoglobin Concent 32.6 % 32.8 % Red Cell Distribution Width 15.2 % 15.3 % Platelet Count 282 TH/MM3 190 TH/MM3 Mean Platelet Volume 6.4 FL 6.7 FL CBC Comment AUTO DIFF AUTO DIFF Differential Total Cells Counted 100 100 Neutrophils % (Manual) 69 % 64 % Band Neutrophils % 20 % 32 % Lymphocytes % 2 % 1 % Monocytes % 3 % 2 % Neutrophils # (Manual) 29.7 TH/MM3 29.5 TH/MM3 Metamyelocytes 6 % 1 % Differential Comment FINAL DIFF MANUAL FINAL DIFF MANUAL Toxic Granulation 2+ 1+ Platelet Estimate NORMAL NORMAL Platelet Morphology Comment NORMAL NORMAL Ovalocytes 1+ Nucleated Red Blood Cells 2 /100 WBC Toxic Vacuolation PRESENT Laboratory Tests Test 07/24/17 02:40 07/24/17 15:45 07/25/17 01:00 07/25/17 05:00 Blood Urea Nitrogen 61 MG/DL 52 MG/DL Creatinine 2.03 MG/DL 1.93 MG/DL Random Glucose 169 MG/DL 214 MG/DL Total Protein 4.1 GM/DL 4.1 GM/DL Albumin 1.4 GM/DL 1.1 GM/DL Calcium Level 8.0 MG/DL 7.8 MG/DL Alkaline Phosphatase 94 U/L 112 U/L Aspartate Amino Transf (AST/SGOT) 42 U/L 38 U/L Alanine Aminotransferase (ALT/SGPT) 20 U/L 32 U/L Total Bilirubin 0.4 MG/DL 0.9 MG/DL Sodium Level 142 MEQ/L 131 MEQ/L Potassium Level 5.0 MEQ/L 4.5 MEQ/L Chloride Level 110 MEQ/L 101 MEQ/L Carbon Dioxide Level 22.2 MEQ/L 18.2 MEQ/L Anion Gap 10 MEQ/L 12 MEQ/L Estimat Glomerular Filtration Rate 25 ML/MIN 26 ML/MIN Lactic Acid Level 3.4 mmol/L Phosphorus Level 4.8 MG/DL 2.6 MG/DL Total Creatine Kinase 954 U/L 788 U/L 357 U/L 274 U/L Creatine Kinase MB 14.2 NG/ML 13.0 NG/ML 7.9 NG/ML 6.3 NG/ML Creatine Kinase MB % 1.5 % 1.6 % 2.2 % 2.3 % Troponin I 0.14 NG/ML 0.11 NG/ML 0.07 NG/ML Thyroid Stimulating Hormone 3rd Gen 0.083 uIU/ML Magnesium Level 1.2 MG/DL Test 07/25/17 09:20 Lactic Acid Level 4.6 mmol/L Phosphorus Level 3.3 MG/DL Magnesium Level 1.3 MG/DL Microbiology Date/Time Source Procedure Growth Status 07/24/17 05:05 Blood Peripheral Aerobic Blood Culture - Preliminary NO GROWTH IN 1 DAY Resulted 07/24/17 05:05 Blood Peripheral Anaerobic Blood Culture - Preliminary NO GROWTH IN 1 DAY Resulted 07/24/17 03:40 Blood Peripheral Aerobic Blood Culture - Preliminary NO GROWTH IN 1 DAY Resulted 07/24/17 03:40 Blood Peripheral Anaerobic Blood Culture - Preliminary NO GROWTH IN 1 DAY Resulted 07/22/17 13:00 Blood Peripheral Aerobic Blood Culture - Preliminary NO GROWTH IN 3 DAYS Resulted 07/22/17 13:00 Blood Peripheral Anaerobic Blood Culture - Preliminary NO GROWTH IN 3 DAYS Resulted 07/22/17 13:00 Blood Peripheral Aerobic Blood Culture - Preliminary NO GROWTH IN 3 DAYS Resulted 07/22/17 13:00 Blood Peripheral Anaerobic Blood Culture - Preliminary NO GROWTH IN 3 DAYS Resulted 07/22/17 20:10 Nasal Washing Influenza Types A,B Antigen (DELMI) - Final NEGATIVE FOR FLU A AND B ANTIGEN.... Complete 07/23/17 16:05 Urine Catheterized Urine Urine Culture - Final NO GROWTH IN 48 HOURS. Complete 07/22/17 20:05 Urine Catheterized Urine Urine Culture - Final NO GROWTH IN 48 HOURS. Complete 07/24/17 12:22 Wound Abdomen Fungal Smear - Final NO FUNGAL ELEMENTS SEEN. Resulted 07/24/17 12:22 Wound Abdomen Fungal Culture Pending Resulted 07/24/17 12:22 Wound Abdomen Acid Fast Stain - Final NO ACID FAST BACILLI SEEN Resulted 07/24/17 12:22 Wound Abdomen Mycobacterial Culture Pending Resulted 07/24/17 12:22 Wound Abdomen Gram Stain - Final Resulted 07/24/17 12:22 Wound Abdomen Wound Culture Pending Resulted Imaging Last Impressions Chest X-Ray 07/24/17 0000 Signed Impressions: Service Date/Time: Monday, July 24, 2017 04:28 - CONCLUSION: 1. Endotracheal and nasogastric tubes appear to be appropriately positioned. Stable position of left subclavian central venous catheter. 2. Lungs remain clear. Jerome Brady MD Chest CT 07/24/17 0000 Signed Impressions: Service Date/Time: Monday, July 24, 2017 05:36 - CONCLUSION: 1. Stranding in the subcutaneous tissues about the right flank with fluid adjacent to the latissimus dorsi. Stranding extends up into the right breast. Findings could represent developing cellulitis. 2. In addition, there is now a small right-sided effusion with bilateral dependent atelectatic changes. Jerome Brady MD Abdomen/Pelvis CT 07/24/17 0000 Signed Impressions: Service Date/Time: Monday, July 24, 2017 05:36 - CONCLUSION: 1. CT findings concerning for a right sided cellulitis and developing myositis. There is some asymmetric prominence of the latissimus dorsi muscle on the right. Unorganized fluid in the deep subcutaneous tissues adjacent to the muscle belly. No drainable fluid collection, however. 2. Developing dependent areas of consolidation, right greater than left with an associated small right-sided effusion. Jerome Brady MD Head CT 07/22/17 1253 Signed Impressions: Service Date/Time: Saturday, July 22, 2017 13:26 - CONCLUSION: No acute disease. Derrick Henry MD Physical Exam GENERAL: Thin built, well-developed patient, in no apparent distress. SKIN: No generalized maculopapular rash. HEAD: Atraumatic. Normocephalic. No temporal or scalp tenderness. EYES: Pupils equal round and reactive. Extraocular motions intact. No scleral icterus. No injection or drainage. ENT: Intubated. NECK: Trachea midline. Supple, nontender, no meningeal signs. CARDIOVASCULAR: Heart sounds audible. No murmur appreciated. RESPIRATORY: Clear to auscultation. Breath sounds equal bilaterally. No wheezes , rales, or rhonchi. GASTROINTESTINAL: Abdomen soft.Wound vac area noted. Extensive area needing wound vac. Skin discoloration extending into right breast outer quadrants. MUSCULOSKELETAL: Extremities without clubbing, cyanosis, or edema. Bluish discoloration and cold toes on right foot. No joint tenderness, effusion, or edema noted. No calf tenderness. Negative Homans sign bilaterally. NEUROLOGICAL: Sedated. Psych could not be assessed IV line sites with no e.o infection Assessment & Plan Remarks Septic shock with multiorgan dysfunction syndrome Sepsis present on admission Necrotizing fasciitis of the abdominal wall ? History of multiple falls likely the precipitant. Acute rhabdomyolysis Acute renal failure: Prerenal, sepsis, rhabdomyolysis Acute metabolic encephalopathy likely sepsis related. Baseline unknown Leukemoid reaction likely due to worsening sepsis Recommendations: Continue Zosyn IV Continue vancomycin IV(target for sepsis) Continue clindamycin IV Intra-Op findings from note reviewed. Unsure of the exact precipitant being trauma versus this being of other etiology such as an epidural abscess. We will follow along to determine etiology Consult palliative care to address goals of care, living situation, caregiver and other such social factors that may have lead to this admission. Follow cultures Follow clinically Patient critically ill. Critical thinking decision-making. Discussed with RN Discussed with critical care medicine Ellen Parks MD July 25, 2017 11:20
--- NOTE | 2017-07-25 14:53 | PD.CONS ---
Consult Service Palliative Care Consult Requested By Dr. Terry De La Torre Primary Care Physician Lamar Ortiz MD Reason for Consultation a. To assist with evaluation and management of symptoms including: pain, dyspnea. b. To assist medical decision maker(s) with: better understanding of current medical conditions; weighing benefits/burdens of medical treatment options; making medical treatment decisions. HPI History of Present Illness Patient is a 62-year-old female with a past medical history of developmental delay and recurrent urinary tract infection presented to the ER for new onset right-sided abdominal and flank pain on 07/22/2017. It was reported that patient has not been feeling well for the past 4 weeks. She reports continuous nonradiating sharp pain in the right upper quadrant that has radiation to her right flank and back. Condition has been complicated by nausea and vomiting(3- 4 times per day), dizziness, multiple falls. EMS was contacted and was found to be hypotensive. Systolic pressure was supposedly 70s. Patient received fluids in transit. In the ER: * Temperature is 98.7, pulse is 90, respirations 18, blood pressure 70/50, pulse ox is 98%. * WBCs 27.2, hemoglobin is 11.0, hematocrit 34.6, platelets 285 * Sodium is 137, potassium is 5.4, chloride is 104, bicarb 17.9, BUN 64, creatinine is 3.5 * Lactic acid is 5.1, troponin is less than 0.02, albumin is 2.7, lipase is 30, TSH 0.18 * PT 14.1, -1.4, PT is 29.4 * Chest x-ray shows no acute disease. Left subclavian central lines placed. * Chest CT shows no acute disease * Abdominal CT shows edema throughout the subcutaneous tissue at the right upper abdomen extending from the midline anteriorly and posteriorly along the right lateral aspect of the abdomen. No focal fluid is seen. Inflammatory/ infectious process versus posttraumatic changes in the appropriate history. * Head CT shows no acute disease. Critical medicine was quickly consulted patient transferred to ICU. Patient was felt to have severe right flank cellulitis, unknown and unclear origin of cellulitis although lacing operator at the time do not see any trauma or abrasions. There is a possibility of dermatomal distribution of a herpes zoster infection. Patient was started on vancomycin and Zosyn. Blood cultures obtained. Patient is in septic shock started on pressors . IV fluids given. Clindamycin is added. 07/23/2017-patient continued to have right sided chest/abdominal pain. Blood pressure is improved to 106/70. Patient remains on pressors. Infectious disease was consulted 07/24/2016-patient intubated, leukocytosis continue to climb. Abdominal CT is concerning for right-sided cellulitis and developing myositis. There is some asymmetrical prominence of the latissimus dorsi muscle on the right. Unorganized fluid in the deep subcutaneous tissue adjacent to the muscle belly. No drainable fluid collection. Chest CT shows stranding in the subcutaneous tissue about the right flank with fluid adjacent to the latissimus dorsi. There is now a small right-sided effusion with bilateral dependent atelectatic changes. Nephrology was consulted due to renal failure. Oncology feel patient's renal failure is acute and etiology is due to sepsis, renal hypoperfusion. Imaging has been negative for obstruction. General surgery was consulted and patient was emergently taken for debridement of necrotizing soft tissue of the abdomen, right hip, right torso approximately 30 to by 18 inches 2 inches deep. Wound VAC was placed. Abdominal wound culture shows MRSA. Etiology of necrotizing soft tissue at this point is unknown. Per infectious disease multiple falls(trauma) versus being of other etiologies such as epidural abscess. Palliative care was consulted to address goals of care, and provide additional support such as caregiver and other social factors. Pt on my visit is intubated and sedated. Today is POD #1. Pt pressor requirement slowly decreasing and renal function decreasing. No family at bedside. D/w pt's status with lacing operator. Palliative had schedule family meeting tomorrow with POA. I called to touch base with Mr. Nagy and left voicemail with my contact number. Function/Cognitive Trajectory Patient is has developmental delay. Appears patient has multiple hospital visits, and has had 6 prior ER visits this year. Past Family Social History Coded Allergies: No Known Allergies (Verified Allergy, Unknown, 07/22/17) Past Medical History Anxiety Depression Developmental delays - mental handicap Headaches/migraines Hypothyroidism GERD Chest pain Hx of UTIs Renal insufficiency Bladder incontinence Chronic back pain Past Surgical History Emergency debridement of necrotizing tissue 07/24/2017. Thyroid surgery EGD - 08/30/16 Cholecystectomy - 03/04/15 D&C Hysterectomy Colonoscopy - 07/30/16 and 08/11/15 Reported Medications Tramadol (Tramadol HCl) 50 Mg Tab 50 Mg PO Q8H PRN Levothyroxine (Levothyroxine Sodium) 175 Mcg Tab 175 Mcg PO DAILY Aspirin 325 Mg Tab 325 Mg PO DAILY Lisinopril 5 Mg Tab 5 Mg PO DAILY Zantac (Ranitidine HCl) 150 Mg Tab 150 Mg PO BID Uceris ER 24 HR (Budesonide) 9 Mg Vee 9 Mg PO DAILY Actos (Pioglitazone HCl) 15 Mg Tab 15 Mg PO DAILY Protonix (Pantoprazole Sodium) 40 Mg Tab 40 Mg PO DAILY Macrobid (Nitrofurantoin Monoh/Nitrofur Macro) 100 Mg Cap 100 Mg PO BID Ocuvite (Multiple Vitamins W/ Minerals) 1 Tab 1 Tab PO DAILY Calcium 600+D Plus Minerals (Calcium Carbonate-Vitamin D W/Minerals) 600-400 Mg- Unit Tab 1 Tab PO DAILY Current Medications Medications (Trade) Dose Ordered Sig/Beatrice Route Start Time Stop Time Status Last Admin (Ocuvite) 1 tab DAILY PO 07/23/17 09:00 07/25/17 08:22 Patient Own Medication PT OWN MED: BUDESON... DAILY PO 07/23/17 09:00 (Oscal-D 250-125) 500 mg DAILY PO 07/23/17 09:00 07/25/17 08:22 (Pepcid) 10 mg BID PO 07/22/17 21:00 07/25/17 08:22 (NS Flush) 2 ml UNSCH PRN IV FLUSH 07/22/17 16:45 (NS Flush) 2 ml BID IV FLUSH 07/22/17 21:00 07/25/17 08:21 (Zofran Inj) 4 mg Q6H PRN IVP 07/22/17 16:45 07/23/17 22:11 (Tylenol) 650 mg Q6H PRN PO 07/22/17 16:45 (Ultram) 50 mg Q6H PRN PO 07/22/17 16:45 (Ultram) 100 mg Q4H PRN PO 07/22/17 16:45 07/23/17 03:39 (Narcan Inj) 0.4 mg UNSCH PRN IV PUSH 07/22/17 16:45 (Natalie-Colace) 1 tab BID PO 07/22/17 21:00 07/25/17 08:22 (Senokot) 17.2 mg Q12H PRN PO 07/22/17 16:45 (Dulcolax Supp) 10 mg DAILY PRN RECTAL 07/22/17 16:45 (Lactulose Liq) 30 ml DAILY PRN PO 07/22/17 16:45 ([facility] [place] Nursing Information) Patient in critical care unit? Ass... [id number] .XX 07/22/17 18:45 (Chlorhexidine 2% Cloth) 3 pack DAILY@04 TOPICAL 07/23/17 04:00 07/27/17 04:01 (Chlorhexidine 2% Cloth) 3 pack UNSCH PRN TOPICAL 07/22/17 18:45 07/27/17 18:30 Norepinephrine Bitartrate 250 ml @ 7.5 mls/hr TITRATE PRN IV 07/22/17 21:00 07/24/17 17:54 Vasopressin 40 units/Dextrose 100 ml @ 6 mls/hr TITRATE PRN IV 07/23/17 06:00 07/25/17 09:22 (Milk Of Magnesia Liq) 30 ml Q12H PRN PO 07/23/17 15:30 (Phenergan Inj) 12.5 mg Q6H PRN IV-CENTRAL 07/23/17 15:30 Phenylephrine HCl 80 mg/Dextrose 500 ml @ 15 mls/hr TITRATE PRN IV 07/24/17 03:00 07/25/17 09:23 (Brethine Inj) 1 mg UNSCH PRN SQ 07/24/17 03:00 (Peridex 0.12% Liq) 15 ml BID@08,20 MT 07/24/17 08:00 07/25/17 08:21 Midazolam HCl 100 ml @ 2 mls/hr TITRATE PRN IV 07/24/17 03:15 Fentanyl Citrate 250 ml @ 5 mls/hr TITRATE PRN IV 07/24/17 03:15 07/25/17 11:10 Clindamycin/ Sodium Chloride 50 ml @ 100 mls/hr Q6H IV 07/24/17 04:00 07/25/17 10:04 Amiodarone HCl 450 mg/Sodium Chloride 250 ml @ 33.33 mls/ hr Q7H31M PRN IV 07/24/17 05:00 07/25/17 03:54 Pharmacy Profile Note 0 ml @ 0 mls/hr UNSCH OTHER 07/24/17 07:45 Piperacillin Sod/ Tazobactam Sod 50 ml @ 100 mls/hr Q8H IV 07/24/17 10:00 07/25/17 10:04 Norepinephrine Bitartrate 250 ml @ 7.5 mls/hr TITRATE PRN IV 07/24/17 17:45 (Brethine Inj) 1 mg UNSCH PRN SQ 07/24/17 17:45 (SoluCORTEF INJ) 100 mg Q8HR IV PUSH 07/24/17 22:00 07/25/17 13:00 (Morphine Inj) 2 mg Q3H PRN IV PUSH 07/24/17 20:45 (D50w (Vial) Inj) 50 ml UNSCH PRN IV PUSH 07/25/17 08:45 (Glucagon Inj) 1 mg UNSCH PRN OTHER 07/25/17 08:45 (NovoLIN R SUPPLEMENTAL SCALE) 1 Q4H SQ 07/25/17 08:45 07/25/17 12:39 Vancomycin HCl 1000 mg/Sodium Chloride 250 ml @ 250 mls/hr ONCE ONCE IV 07/25/17 18:00 07/25/17 18:59 Family History Mother - diabetes mellitus Sister - lupus erythematosus Substance Use Never smoker. Denies EtOH or other drugs Psychosocial History unable to elicit at this time. No family present. Left voicemail. Pt intubated and sedated. Spiritual/Cultural Factors none reported. Durable Power of Medical Communication Specialist: Completed, but not made available Physical Exam Vital Signs Date Time Temp Pulse Resp B/P (MAP) Pulse Ox O2 Delivery O2 Flow Rate FiO2 07/25/17 13:32 100 40 07/25/17 10:13 100 40 07/25/17 09:23 72 98/51 07/25/17 09:22 72 98/51 07/25/17 08:15 100 40 07/25/17 08:00 64 07/25/17 08:00 62 101/62 (75) 112/56 (74) 07/25/17 08:00 98.9 62 15 101/62 (75) 100 112/56 (74) 07/25/17 06:31 100 40 07/25/17 06:00 66 07/25/17 05:36 82 105/53 07/25/17 04:00 99.4 69 18 96/61 (73) 100 112/56 (74) 07/25/17 04:00 40 07/25/17 04:00 69 07/25/17 03:54 69 137/66 07/25/17 03:27 69 125/61 07/25/17 02:30 72 141/67 07/25/17 02:00 74 149/69 07/25/17 02:00 74 07/25/17 01:44 100 40 07/25/17 01:30 75 165/73 07/25/17 01:30 75 165/73 07/25/17 01:15 77 150/67 07/25/17 01:00 79 133/61 07/25/17 00:00 40 07/25/17 00:00 99.6 78 14 134/65 (88) 100 158/69 (98) 07/25/17 00:00 78 07/24/17 23:58 80 141/62 07/24/17 23:56 80 141/62 07/24/17 23:45 79 167/73 07/24/17 23:40 79 167/73 07/24/17 23:30 78 154/69 07/24/17 23:19 79 168/73 07/24/17 23:19 79 168/73 07/24/17 22:59 80 137/60 07/24/17 22:59 80 137/60 07/24/17 22:00 83 07/24/17 21:00 82 88/65 07/24/17 20:23 81 95/69 07/24/17 20:00 83 07/24/17 20:00 40 07/24/17 20:00 99.6 83 17 112/49 (70) 96 07/24/17 19:33 92 40 07/24/17 19:30 82 129/56 07/24/17 19:30 82 129/56 07/24/17 19:15 81 127/53 (77) 07/24/17 18:55 79 97/42 07/24/17 18:30 77 1 86/53 (64) 90 120/55 (76) 07/24/17 18:01 74 2 82/45 (57) 89 113/51 (71) 07/24/17 18:00 74 4 74/34 (47) 90 108/49 (68) 07/24/17 17:54 74 99/45 07/24/17 17:39 73 8 88/48 (61) 92 98/45 (62) 07/24/17 17:30 74 5 58/40 (46) 94 108/54 (72) 07/24/17 17:01 74 18 74/40 (51) 91 113/62 (79) 07/24/17 17:00 75 18 95/58 (70) 85 07/24/17 16:31 79 20 111/57 (75) 95 111/55 (73) 07/24/17 16:30 96 40 07/24/17 16:28 79 113/55 07/24/17 16:00 99.2 74 18 113/78 (90) 96 138/65 (89) 07/24/17 16:00 40 07/24/17 16:00 82 113/65 07/24/17 15:58 74 133/62 07/24/17 15:30 74 18 113/58 (76) 94 130/60 (83) 07/24/17 15:00 74 19 108/57 (74) 96 122/56 (78) 07/24/17 14:30 72 18 104/59 (74) 96 129/59 (82) Exam CONSTITUTIONAL/GENERAL: This is an adequately nourished patient, in no apparent distress. TUBES/LINES/DRAINS: Wound vac, PIV, ET tube, scales. SKIN: Right sided wound s/p debridment with wound vac from right thigh all the way up torso to below axillary area. HEAD: Atraumatic. Normocephalic. EYES: Closed. Extraocular motions intact. No scleral icterus. No injection or drainage. Fundi not examined. ENT: . Nose without bleeding or purulent drainage. ET tube in placed NECK: Trachea midline. Supple, nontender. No palpable thyroid enlargement or nodularity. CARDIOVASCULAR: Regular rate and rhythm without murmurs, gallops, or rubs. No JVD. Peripheral pulses symmetric. RESPIRATORY/CHEST: Symmetric, unlabored respirations. Clear to auscultation. Breath sounds equal bilaterally. No wheezes, rales, or rhonchi. GASTROINTESTINAL: Abdomen soft, non-tender, nondistended. No hepato-splenomegaly , or palpable masses. No guarding. Bowel sounds present. GENITOURINARY: Without palpable bladder distension. Scales catheter in place. MUSCULOSKELETAL: Extremities without clubbing, cyanosis, or edema. LYMPHATICS: No palpable cervical or supraclavicular adenopathy. NEUROLOGICAL: Intubated and sedated Moves all extremities. PSYCHIATRIC: Unable to examine Diagnostic Tests Laboratory Laboratory Tests Test 07/22/17 16:24 07/22/17 18:00 07/22/17 18:38 07/22/17 21:18 Lactic Acid Level 2.9 mmol/L (0.4-2.0) 3.7 mmol/L (0.4-2.0) Nasal Screen MRSA (PCR) MRSA DETECTED (NOT DETECT) Troponin I LESS THAN 0.02 NG/ML Test 07/22/17 23:45 07/23/17 00:10 07/23/17 05:30 07/23/17 06:40 Hemoglobin 9.8 GM/DL (11.6-15.3) 10.1 GM/DL (11.6-15.3) Hematocrit 30.3 % (35.0-46.0) 31.6 % (35.0-46.0) Lactic Acid Level 3.6 mmol/L (0.4-2.0) 3.3 mmol/L (0.4-2.0) Troponin I LESS THAN 0.02 NG/ML White Blood Count 8.4 TH/MM3 (4.0-11.0) Red Blood Count 3.69 MIL/MM3 (4.00-5.30) Mean Corpuscular Volume 85.8 FL (80.0-100.0) Mean Corpuscular Hemoglobin 27.4 PG (27.0-34.0) Mean Corpuscular Hemoglobin Concent 31.9 % (32.0-36.0) Red Cell Distribution Width 15.3 % (11.6-17.2) Platelet Count 365 TH/MM3 (150-450) Mean Platelet Volume 6.5 FL (7.0-11.0) CBC Comment AUTO DIFF Differential Total Cells Counted 100 Neutrophils % (Manual) 59 % (16-70) Band Neutrophils % 21 % (0-6) Lymphocytes % 8 % (9-44) Monocytes % 10 % (0-8) Eosinophils % 1 % (0-4) Neutrophils # (Manual) 6.8 TH/MM3 (1.8-7.7) Metamyelocytes 1 % (0-1) Differential Comment FINAL DIFF MANUAL Platelet Estimate NORMAL (NORMAL) Platelet Morphology Comment NORMAL (NORMAL) Crenated Cell 1+ (NORMAL) Blood Urea Nitrogen 58 MG/DL (7-18) Creatinine 2.59 MG/DL (0.50-1.00) Random Glucose 81 MG/DL (74-106) Total Protein 4.8 GM/DL (6.4-8.2) Albumin 1.8 GM/DL (3.4-5.0) Calcium Level 8.3 MG/DL (8.5-10.1) Alkaline Phosphatase 108 U/L (45-117) Aspartate Amino Transf (AST/SGOT) 14 U/L (15-37) Alanine Aminotransferase (ALT/SGPT) 11 U/L (10-53) Total Bilirubin 0.5 MG/DL (0.2-1.0) Sodium Level 142 MEQ/L (136-145) Potassium Level 4.3 MEQ/L (3.5-5.1) Chloride Level 115 MEQ/L (98-107) Carbon Dioxide Level 13.9 MEQ/L (21.0-32.0) Anion Gap 13 MEQ/L (5-15) Estimat Glomerular Filtration Rate 19 ML/MIN (>89) Random Vancomycin Level 9.6 COMMENT Test 07/23/17 08:00 07/23/17 16:05 07/24/17 02:40 07/24/17 04:15 Total Creatine Kinase 50 U/L (26-192) 954 U/L (26-192) Random Vancomycin Level 9.5 COMMENT 15.4 COMMENT Urine Color YELLOW (YELLW/STRAW) Urine Turbidity CLOUDY (CLEAR) Urine pH 5.5 (5.0-8.5) Urine Specific Wheatley 1.018 (1.002-1.035) Urine Protein 30 mg/dL (NEG-TRACE) Urine Glucose (UA) NEG mg/dL (NEG) Urine Ketones NEG mg/dL (NEG) Urine Occult Blood MOD (NEG) Urine Nitrite NEG (NEG) Urine Bilirubin NEG (NEG) Urine Urobilinogen LESS THAN 2.0 MG/DL (LESS Urine Leukocyte Esterase NEG (NEG) Urine RBC LESS THAN 1 /hpf (0-3) Urine WBC 2 /hpf (0-5) Urine Squamous Epithelial Cells 2 /hpf (0-5) Urine Transitional Epithelial Cells <1 /hpf (NONE) Urine Amorphous Sediment OCC Urine Bacteria RARE /hpf (NONE) Urine Mucus FEW /lpf (OCC) Microscopic Urinalysis Comment CATH-CULTURE IND Urine Eosinophils NONE SEEN /HPF (NONE SEEN) Urine Random Creatinine 73.1 MG/DL Urine Random Sodium 45 MEQ/L White Blood Count 31.3 TH/MM3 (4.0-11.0) Red Blood Count 3.28 MIL/MM3 (4.00-5.30) Hemoglobin 8.9 GM/DL (11.6-15.3) Hematocrit 27.2 % (35.0-46.0) Mean Corpuscular Volume 82.9 FL (80.0-100.0) Mean Corpuscular Hemoglobin 27.1 PG (27.0-34.0) Mean Corpuscular Hemoglobin Concent 32.6 % (32.0-36.0) Red Cell Distribution Width 15.2 % (11.6-17.2) Platelet Count 282 TH/MM3 (150-450) Mean Platelet Volume 6.4 FL (7.0-11.0) CBC Comment AUTO DIFF Differential Total Cells Counted 100 Neutrophils % (Manual) 69 % (16-70) Band Neutrophils % 20 % (0-6) Lymphocytes % 2 % (9-44) Monocytes % 3 % (0-8) Neutrophils # (Manual) 29.7 TH/MM3 (1.8-7.7) Metamyelocytes 6 % (0-1) Differential Comment FINAL DIFF MANUAL Toxic Granulation 2+ (NORMAL) Platelet Estimate NORMAL (NORMAL) Platelet Morphology Comment NORMAL (NORMAL) Ovalocytes 1+ (NORMAL) Prothrombin Time 15.6 SEC (9.8-11.6) Prothromb Time International Ratio 1.5 RATIO Activated Partial Thromboplast Time 45.0 SEC (24.3-30.1) Blood Urea Nitrogen 61 MG/DL (7-18) Creatinine 2.03 MG/DL (0.50-1.00) Random Glucose 169 MG/DL (74-106) Total Protein 4.1 GM/DL (6.4-8.2) Albumin 1.4 GM/DL (3.4-5.0) Calcium Level 8.0 MG/DL (8.5-10.1) Alkaline Phosphatase 94 U/L (45-117) Aspartate Amino Transf (AST/SGOT) 42 U/L (15-37) Alanine Aminotransferase (ALT/SGPT) 20 U/L (10-53) Total Bilirubin 0.4 MG/DL (0.2-1.0) Sodium Level 142 MEQ/L (136-145) Potassium Level 5.0 MEQ/L (3.5-5.1) Chloride Level 110 MEQ/L (98-107) Carbon Dioxide Level 22.2 MEQ/L (21.0-32.0) Anion Gap 10 MEQ/L (5-15) Estimat Glomerular Filtration Rate 25 ML/MIN (>89) Lactic Acid Level 3.4 mmol/L (0.4-2.0) Phosphorus Level 4.8 MG/DL (2.5-4.9) Creatine Kinase MB 14.2 NG/ML (0.5-3.6) Creatine Kinase MB % 1.5 % (0.0-4.0) Troponin I 0.14 NG/ML (0.02-0.05) Thyroid Stimulating Hormone 3rd Gen 0.083 uIU/ML (0.358-3.740) Blood Gas Puncture Site ART LINE Blood Gas Patient Temperature 98.6 Blood Gas HCO3 16 mmol/L (22-26) Blood Gas Base Excess -6.6 mmol/L (-2-2) Blood Gas Oxygen Saturation 95 % (90-100) Arterial Blood pH 7.50 (7.380-7.420) Arterial Blood Partial Pressure CO2 21 mmHg (38-42) Arterial Blood Partial Pressure O2 236 mmHg (61-120) Arterial Blood Oxygen Content 12.9 Vol % (12.0-20.0) Arterial Blood Carboxyhemoglobin 0.2 % (0-4) Arterial Blood Methemoglobin 2.7 % (0-2) Blood Gas Hemoglobin 9.2 G/DL (12.0-16.0) Oxygen Delivery Device VENTILATOR Blood Gas Ventilator Setting PRVC/AC 24/500/5PEEP Blood Gas Inspired Oxygen 50 % Test 07/24/17 11:57 07/24/17 15:45 07/24/17 18:00 07/25/17 01:00 Blood Gas Puncture Site DRAWN IN OR Blood Gas Patient Temperature 98.6 Blood Gas HCO3 19 mmol/L (22-26) Blood Gas Base Excess -5.4 mmol/L (-2-2) Blood Gas Oxygen Saturation 95 % (90-100) Arterial Blood pH 7.38 (7.380-7.420) Arterial Blood Partial Pressure CO2 32 mmHg (38-42) Arterial Blood Partial Pressure O2 404 mmHg (61-120) Arterial Blood Oxygen Content 12.5 Vol % (12.0-20.0) Arterial Blood Carboxyhemoglobin 0.1 % (0-4) Arterial Blood Methemoglobin 2.7 % (0-2) Blood Gas Hemoglobin 8.5 G/DL (12.0-16.0) Blood Gas Inspired Oxygen 100 % Total Creatine Kinase 788 U/L (26-192) 357 U/L (26-192) Creatine Kinase MB 13.0 NG/ML (0.5-3.6) 7.9 NG/ML (0.5-3.6) Creatine Kinase MB % 1.6 % (0.0-4.0) 2.2 % (0.0-4.0) Troponin I 0.11 NG/ML (0.02-0.05) 0.07 NG/ML (0.02-0.05) Urine Total Volume 24 Hours 500 ML Urine Total Protein 24 Hour 600 MG/24HR (0-150) Phosphorus Level 2.6 MG/DL (2.5-4.9) Magnesium Level 1.2 MG/DL (1.5-2.5) Test 07/25/17 05:00 07/25/17 09:20 White Blood Count 30.4 TH/MM3 (4.0-11.0) Red Blood Count 3.28 MIL/MM3 (4.00-5.30) Hemoglobin 8.9 GM/DL (11.6-15.3) Hematocrit 27.0 % (35.0-46.0) Mean Corpuscular Volume 82.3 FL (80.0-100.0) Mean Corpuscular Hemoglobin 27.0 PG (27.0-34.0) Mean Corpuscular Hemoglobin Concent 32.8 % (32.0-36.0) Red Cell Distribution Width 15.3 % (11.6-17.2) Platelet Count 190 TH/MM3 (150-450) Mean Platelet Volume 6.7 FL (7.0-11.0) CBC Comment AUTO DIFF Differential Total Cells Counted 100 Neutrophils % (Manual) 64 % (16-70) Band Neutrophils % 32 % (0-6) Lymphocytes % 1 % (9-44) Monocytes % 2 % (0-8) Neutrophils # (Manual) 29.5 TH/MM3 (1.8-7.7) Metamyelocytes 1 % (0-1) Nucleated Red Blood Cells 2 /100 WBC (0-0) Differential Comment FINAL DIFF MANUAL Toxic Granulation 1+ (NORMAL) Toxic Vacuolation PRESENT (NONE SEEN) Platelet Estimate NORMAL (NORMAL) Platelet Morphology Comment NORMAL (NORMAL) Prothrombin Time 16.3 SEC (9.8-11.6) Prothromb Time International Ratio 1.6 RATIO Blood Urea Nitrogen 52 MG/DL (7-18) Creatinine 1.93 MG/DL (0.50-1.00) Random Glucose 214 MG/DL (74-106) Total Protein 4.1 GM/DL (6.4-8.2) Albumin 1.1 GM/DL (3.4-5.0) Calcium Level 7.8 MG/DL (8.5-10.1) Alkaline Phosphatase 112 U/L (45-117) Aspartate Amino Transf (AST/SGOT) 38 U/L (15-37) Alanine Aminotransferase (ALT/SGPT) 32 U/L (10-53) Total Bilirubin 0.9 MG/DL (0.2-1.0) Sodium Level 131 MEQ/L (136-145) Potassium Level 4.5 MEQ/L (3.5-5.1) Chloride Level 101 MEQ/L (98-107) Carbon Dioxide Level 18.2 MEQ/L (21.0-32.0) Anion Gap 12 MEQ/L (5-15) Estimat Glomerular Filtration Rate 26 ML/MIN (>89) Total Creatine Kinase 274 U/L (26-192) Creatine Kinase MB 6.3 NG/ML (0.5-3.6) Creatine Kinase MB % 2.3 % (0.0-4.0) Random Vancomycin Level 19.1 COMMENT Lactic Acid Level 4.6 mmol/L (0.4-2.0) Phosphorus Level 3.3 MG/DL (2.5-4.9) Magnesium Level 1.3 MG/DL (1.5-2.5) Result Diagram: 07/25/17 0500 07/25/17 0500 Microbiology Microbiology Date/Time Source Procedure Growth Status 07/24/17 05:05 Blood Peripheral Aerobic Blood Culture - Preliminary NO GROWTH IN 1 DAY Resulted 07/24/17 05:05 Blood Peripheral Anaerobic Blood Culture - Preliminary NO GROWTH IN 1 DAY Resulted 07/24/17 03:40 Blood Peripheral Aerobic Blood Culture - Preliminary NO GROWTH IN 1 DAY Resulted 07/24/17 03:40 Blood Peripheral Anaerobic Blood Culture - Preliminary NO GROWTH IN 1 DAY Resulted 07/22/17 20:10 Nasal Washing Influenza Types A,B Antigen (DELMI) - Final NEGATIVE FOR FLU A AND B ANTIGEN.... Complete 07/23/17 16:05 Urine Catheterized Urine Urine Culture - Final NO GROWTH IN 48 HOURS. Complete 07/22/17 20:05 Urine Catheterized Urine Urine Culture - Final NO GROWTH IN 48 HOURS. Complete 07/24/17 12:22 Wound Abdomen Fungal Smear - Final NO FUNGAL ELEMENTS SEEN. Resulted 07/24/17 12:22 Wound Abdomen Fungal Culture Pending Resulted 07/24/17 12:22 Wound Abdomen Acid Fast Stain - Final NO ACID FAST BACILLI SEEN Resulted 07/24/17 12:22 Wound Abdomen Mycobacterial Culture Pending Resulted 07/24/17 12:22 Wound Abdomen Gram Stain - Final Resulted 07/24/17 12:22 Wound Culture - Preliminary S. Aureus Mrsa Resulted Imaging Last Impressions Chest X-Ray 07/24/17 0000 Signed Impressions: Service Date/Time: Monday, July 24, 2017 04:28 - CONCLUSION: 1. Endotracheal and nasogastric tubes appear to be appropriately positioned. Stable position of left subclavian central venous catheter. 2. Lungs remain clear. Jerome Brady MD Chest CT 07/24/17 0000 Signed Impressions: Service Date/Time: Monday, July 24, 2017 05:36 - CONCLUSION: 1. Stranding in the subcutaneous tissues about the right flank with fluid adjacent to the latissimus dorsi. Stranding extends up into the right breast. Findings could represent developing cellulitis. 2. In addition, there is now a small right-sided effusion with bilateral dependent atelectatic changes. Jerome Brady MD Abdomen/Pelvis CT 07/24/17 0000 Signed Impressions: Service Date/Time: Monday, July 24, 2017 05:36 - CONCLUSION: 1. CT findings concerning for a right sided cellulitis and developing myositis. There is some asymmetric prominence of the latissimus dorsi muscle on the right. Unorganized fluid in the deep subcutaneous tissues adjacent to the muscle belly. No drainable fluid collection, however. 2. Developing dependent areas of consolidation, right greater than left with an associated small right-sided effusion. Jerome Brady MD Head CT 07/22/17 1253 Signed Impressions: Service Date/Time: Saturday, July 22, 2017 13:26 - CONCLUSION: No acute disease. Derrick Henry MD Patient/Family Conference Present at Family Conference: none today. Scheduled family meeting tomorrow morning. Family Conference Time (mins): 0 Issues Discussed: * Palliative care role, purpose, approach * Additional medical, psychosocial, and spiritual history * Patients general health, functional status, and cognitive changes in the months leading up to the current hospitalization * Patient/family understanding of the current medical problems * Patient/family understanding of prognosis * Patients goals of care as best understood from advance directives and/or conversations and/or values * Current medical treatment options and benefits/burdens of those options * Likely scenarios comparing ongoing aggressive care with a transition to comfort measures only * Questions answered to the best of my ability * Palliative care contact information provided Assessment and Plan Disease Oriented Problem List: (1) Severe sepsis (2) Abdominal wall cellulitis Comment: required debridement of necrotizing tissue. (3) Acute kidney injury (4) DM (diabetes mellitus) Symptom Scale: (1) Dyspnea 0-10 Scale: Unable to quantify (2) Pain 0-10 Scale: Unable to quantify Pertinent Non-Medical Issues Psychosocial:developmental delay Spiritual: unknown Legal: await paper work guardian/poa of Mr. Nagy. Ethical issues impacting care:none Important Contacts Felipe Nagy reported POA. [phone] Prognosis 62 year old female with severe sepsis, due to large right sided necrotizing wound + for MRSA. Spoke with lacing operator, currently pressor need is being titrated down, and kidney function is improving. Prognosis is guarded. Pt's developmental delays may hinder pt's ability to convalescence. Code Status: Full Code Plan ==code: Full == capacity- pt currently has not capacity to make medical decision. Has hx of developemental delay, and has a guardian. == POA/guardian- reportedly Mr. Felipe Nagy, I will await for Mr. Nagy to bring paper work in. ==Goals of treatment.- Called and left Mr. Nagy a message, he has not called back. Family conference planned in the morning tomorrow. == dyspnea- currently intubated. continue lacing operator care. pain- s/p surgery, extensive right sided wound/ general debility. Continue fentaly for now. == palliative care will continue to follow. Thank you for the opportunity to participate in the care of Ms. Eldridge. Attestation To help prompt me to consider important information that might be impacting today's encounter and assessment, information from prior notes written by myself or my colleagues may have been "brought forward" into today's note. My signature on this note, however, is an attestation that I personally performed the exam, history, and/or decision-making noted today, and, unless otherwise indicated, the interactions with patient, family, and staff as well as the review of records all occurred today. I also attest that the listed assessment and stated plan reflect my best clinical judgment today based on the combination of historical information, prior notes, and today's exam/ interactions. When time spent is documented, it refers only to time spent today by the signer, or if indicated, combined time spent today by collaborating physician/nurse practitioner. Keshawn Baez MD July 25, 2017 14:53
[2017-07-25] MEDS ORDERED: VANCOMYCIN 1,000 MG/NS 250 ML IV ONE ×2 (18:00)
[2017-07-26] VITALS (19 sets, daily range): BP systolic 87–141; BP diastolic 45–82; PULSE 67–86; RESP 0–14; TEMP 97.5–98.8; O2SAT 96–100
[2017-07-26] MEDS: INSULIN NovoLIN REGULAR SUPPLEMENTAL SCALE SQ SCH ×6 (00:45→20:45)
[2017-07-26] MEDS: PIPERACIL-TAZO 3.375 GM PREMIX 50 ML IV SCH ×3 (02:00→18:07)
[2017-07-26] MEDS: fentaNYL DRIP 250 ML IV PRN ×2 (02:54→15:53)
[2017-07-26] MEDS: VASOPRESSIN 40 U/D5W 100 ML Titrate, Post Cardiac Surgery IV PRN ×2 (02:55)
[2017-07-26] MEDS: CHLORHEXIDINE GLUCONATE 2 % 1 PACK (2 CLOTHS)(taper/protocol) TOPICAL SCH (04:00)
[2017-07-26] MEDS: CLINDAMYCIN 600 MG/NS PREMIX 50 ML IV SCH ×4 (04:00→22:00)
[2017-07-26 04:21] LABS: AUTOMATED NEUTROPHIL # 25.4 TH/MM3 (1.8-7.7); BASOPHIL % 0.1 % (0.0-2.0); EOSINOPHIL % 0.1 % (0.0-4.0); HEMATOCRIT 24.4 % (35.0-46.0); HEMOGLOBIN 8.1 GM/DL (11.6-15.3); LYMPH % 5.2 % (9.0-44.0); LYMPHOCYTE # 1.4 TH/MM3 (1.0-4.8); MEAN CELL VOLUME 81.8 FL (80.0-100.0); MEAN CORPUSCULAR HEMOGLOBIN 27.2 PG (27.0-34.0); MEAN CORPUSCULAR HGB CONC 33.2 % (32.0-36.0); MEAN PLATELET VOLUME 7.1 FL (7.0-11.0); MONO % 2.8 % (0.0-8.0); MONOCYTE # 0.8 TH/MM3 (0-0.9); NEUT % 91.8 % (16.0-70.0); PLATELET COUNT 145 TH/MM3 (150-450); RED BLOOD COUNT 2.99 MIL/MM3 (4.00-5.30); WHITE BLOOD COUNT 27.7 TH/MM3 (4.0-11.0)
[2017-07-26 04:49] LABS: CALCIUM 8.5 MG/DL (8.5-10.1); CREATININE 1.81 MG/DL (0.50-1.00); MAGNESIUM 1.7 MG/DL (1.5-2.5); PHOSPHORUS 3.7 MG/DL (2.5-4.9)
[2017-07-26] MEDS: HYDROCORTISONE SOD SUCCINATE 100 MG VIAL IV PUSH SCH ×3 (04:50→18:07)
--- NOTE | 2017-07-26 06:57 | HHI.PR ---
Subjective Subjective Notes NOTE DATE 07/25/2017 Intubated sedated, less pressor requirement, vac good seal Objective Vitals/I&O Vital Signs Date Time Temp Pulse Resp B/P (MAP) Pulse Ox O2 Delivery O2 Flow Rate FiO2 07/26/17 06:00 79 07/26/17 04:28 100 40 07/26/17 04:00 98.5 107/75 (86) 126/69 (88) 07/26/17 00:00 14 07/22/17 14:45 Room Air Labs Laboratory Tests Test 07/25/17 09:20 07/26/17 03:35 Lactic Acid Level 4.6 Phosphorus Level 3.3 3.7 Magnesium Level 1.3 1.7 White Blood Count 27.7 Red Blood Count 2.99 Hemoglobin 8.1 Hematocrit 24.4 Mean Corpuscular Volume 81.8 Mean Corpuscular Hemoglobin 27.2 Mean Corpuscular Hemoglobin Concent 33.2 Red Cell Distribution Width 15.0 Platelet Count 145 Mean Platelet Volume 7.1 Neutrophils (%) (Auto) 91.8 Lymphocytes (%) (Auto) 5.2 Monocytes (%) (Auto) 2.8 Eosinophils (%) (Auto) 0.1 Basophils (%) (Auto) 0.1 Neutrophils # (Auto) 25.4 Lymphocytes # (Auto) 1.4 Monocytes # (Auto) 0.8 Eosinophils # (Auto) 0.0 Basophils # (Auto) 0.0 CBC Comment AUTO DIFF Differential Comment AUTO DIFF CONFIRMED Blood Urea Nitrogen 61 Creatinine 1.81 Random Glucose 168 Calcium Level 8.5 Sodium Level 132 Potassium Level 4.0 Chloride Level 100 Carbon Dioxide Level 18.0 Anion Gap 14 Estimat Glomerular Filtration Rate 28 Date/Time Source Procedure Growth Status 07/24/17 05:05 Blood Peripheral Aerobic Blood Culture - Preliminary NO GROWTH IN 1 DAY Resulted 07/24/17 05:05 Blood Peripheral Anaerobic Blood Culture - Preliminary NO GROWTH IN 1 DAY Resulted 07/22/17 20:10 Nasal Washing Influenza Types A,B Antigen (DELMI) - Final NEGATIVE FOR FLU A AND B ANTIGEN.... Complete 07/23/17 16:05 Urine Catheterized Urine Urine Culture - Final NO GROWTH IN 48 HOURS. Complete 07/24/17 12:22 Wound Abdomen Fungal Smear - Final NO FUNGAL ELEMENTS SEEN. Resulted 07/24/17 12:22 Wound Abdomen Fungal Culture Pending Resulted Lungs: Rhonchi Abdomen: Other (vac good seal, no leak) A/P Assessment and Plan NOTE DATE Soft tissues necrotizing infection s/p incision and wide excisional debridement of torso PLAN Will change vac in 1-2 days continue abx vent per isc close monitoring Tip Dumont MD July 26, 2017 06:57
[2017-07-26] MEDS: BUDESONIDE 9 MG PO SCH (09:00)
--- NOTE | 2017-07-26 09:18 | HHI.CCPN ---
Subjective Remarks/Hospital Course This is a 62-year-old female with a history of developmental delay and recurrent urinary tract infections who presents with new onset right-sided abdominal and flank pain. Per the [facility] service admission note this is been going on for approximately 4 weeks. Patient has a history of developmental delay and is difficult to get a complete history from her, no analysis with her on my evaluation. On my evaluation she endorses flank pain radiating around to her chest. She endorses subjective chills. Denies recent fevers to me. Also endorses nausea, vomiting. In the emergency department she was found to have significant erythema, rubor, dolor, and edema from approximately the fifth intercostal space down to the eighth or ninth intercostal space wrapping around from the midline in the back all the way around to just medial to the breast. CT scan of the abdomen and pelvis confirms significant subcutaneous edema, but this area of edema appears to be contained by intact fascial planes, particularly in the midline of the back. Laboratory evidence is significant for a white blood cell count of 27k, creatinine is 3.58, potassium 5.4, bicarb of 17.9, anion gap elevated at 15, BUN of 64, an initial lactate of 5.1. In the emergency department she received 3 L of crystalloid IV fluids. Despite this she is hypotensive with a mean arterial pressure of 51. Critical care medicine is consulted to evaluate manage her presumed septic shock secondary to severe cellulitis of the trunk. I have given her an additional liter of crystalloid and then placed central venous access, see separate procedure note for details. In addition her lactate is starting to clear and is now 2.9 with an more currently pending, however it is not clearing fast enough and she remains oliguric. I placed a [place] for accurate hourly I's and O's. The remainder of the review systems for the patient is negative except documented in the HPI, although this is severely limited by her baseline developmental delay. Subjective 07/23: Patient remains on vasopressors, noted metabolic acidosis, bicarbonate level of 15. Sodium bicarbonate infusion initiated. 07/24 Patient was intubated early this morning now on Vasopressin and Neosyn 300 mics in addition patient is on Amio and Bicarb drips. WBC increased 31. CT abd/pelvis showed right sided cellulites and developing myositis. 07/25 Patient went to OR yesterday s/p wide excisional debridement of soft tissue infection with VAC placement for necrotizing soft tissue infection of abdomen, right hip area right torso area measuring approximately 32 x 18 inches x 2 inches deep. She remains on Vasopressin 0.04 and Neosyn down to 120 mics. On Amio drip. 07/26 No events overnight. Off all pressors, WBC is trending down. On Amio drip. Objective Vital Signs Date Time Temp Pulse Resp B/P (MAP) Pulse Ox O2 Delivery O2 Flow Rate FiO2 07/26/17 09:04 100 35 07/26/17 07:14 77 123/64 07/26/17 04:00 98.5 07/26/17 00:00 14 07/22/17 14:45 Room Air Intake and Output 07/26/17 07/26/17 07/27/17 08:00 16:00 00:00 Intake Total 396 ml Output Total 1150 ml Balance -754 ml Result Diagram: 07/26/17 0335 07/26/17 0335 Other Results Laboratory Tests Test 07/25/17 09:20 07/26/17 03:35 Lactic Acid Level 4.6 mmol/L Phosphorus Level 3.3 MG/DL 3.7 MG/DL Magnesium Level 1.3 MG/DL 1.7 MG/DL White Blood Count 27.7 TH/MM3 Red Blood Count 2.99 MIL/MM3 Hemoglobin 8.1 GM/DL Hematocrit 24.4 % Mean Corpuscular Volume 81.8 FL Mean Corpuscular Hemoglobin 27.2 PG Mean Corpuscular Hemoglobin Concent 33.2 % Red Cell Distribution Width 15.0 % Platelet Count 145 TH/MM3 Mean Platelet Volume 7.1 FL Neutrophils (%) (Auto) 91.8 % Lymphocytes (%) (Auto) 5.2 % Monocytes (%) (Auto) 2.8 % Eosinophils (%) (Auto) 0.1 % Basophils (%) (Auto) 0.1 % Neutrophils # (Auto) 25.4 TH/MM3 Lymphocytes # (Auto) 1.4 TH/MM3 Monocytes # (Auto) 0.8 TH/MM3 Eosinophils # (Auto) 0.0 TH/MM3 Basophils # (Auto) 0.0 TH/MM3 CBC Comment AUTO DIFF Differential Comment AUTO DIFF CONFIRMED Blood Urea Nitrogen 61 MG/DL Creatinine 1.81 MG/DL Random Glucose 168 MG/DL Calcium Level 8.5 MG/DL Sodium Level 132 MEQ/L Potassium Level 4.0 MEQ/L Chloride Level 100 MEQ/L Carbon Dioxide Level 18.0 MEQ/L Anion Gap 14 MEQ/L Estimat Glomerular Filtration Rate 28 ML/MIN Imaging Last Impressions Chest X-Ray 07/24/17 0000 Signed Impressions: Service Date/Time: Monday, July 24, 2017 04:28 - CONCLUSION: 1. Endotracheal and nasogastric tubes appear to be appropriately positioned. Stable position of left subclavian central venous catheter. 2. Lungs remain clear. Jerome Brady MD Chest CT 07/24/17 0000 Signed Impressions: Service Date/Time: Monday, July 24, 2017 05:36 - CONCLUSION: 1. Stranding in the subcutaneous tissues about the right flank with fluid adjacent to the latissimus dorsi. Stranding extends up into the right breast. Findings could represent developing cellulitis. 2. In addition, there is now a small right-sided effusion with bilateral dependent atelectatic changes. Jerome Brady MD Abdomen/Pelvis CT 07/24/17 0000 Signed Impressions: Service Date/Time: Monday, July 24, 2017 05:36 - CONCLUSION: 1. CT findings concerning for a right sided cellulitis and developing myositis. There is some asymmetric prominence of the latissimus dorsi muscle on the right. Unorganized fluid in the deep subcutaneous tissues adjacent to the muscle belly. No drainable fluid collection, however. 2. Developing dependent areas of consolidation, right greater than left with an associated small right-sided effusion. Jerome Brady MD Head CT 07/22/17 1253 Signed Impressions: Service Date/Time: Saturday, July 22, 2017 13:26 - CONCLUSION: No acute disease. Derrick Henry MD Objective Remarks GENERAL: Elderly female, lying in bed intubated and on multiple pressors. HEENT: Normocephalic. Atraumatic. Pupils equal, round, reactive, conjugate. Mucous membranes are moist NECK: Trachea is midline. There is no JVD. CHEST: Equal chest rise. Room air. CARDIOVASCULAR: Tachycardic rate, regular rhythm. Continues on vasopressin and norepinephrine infusion ABDOMEN: Soft, nontender, nondistended. No guarding. There is significant tenderness to palpation over the right flank and edema and erythema with rubor and calor present from midline extending around to just medial to the right breast. This extends cephalad from approximately the fifth intercostal space down to approximately the ninth intercostal space. There is no fluctuance. There is no mass. The area of erythema is blanchable. There are no rashes or pustules in the area of edema. MUSCULOSKELETAL: Pulses 2+. No peripheral edema. NEUROLOGICAL: Intubated Date of Insertion: Jul 22, 2017 A/P Assessment and Plan Assessment: 62-year-old female with what appears to be a severe right flank cellulitis. Unclear the origin of cellulitis is as I do not see any trauma, or abrasions that would be a site or nidus for infection. Certainly unilateral erythema in what appears to be a dermatomal distribution raises concern over herpes zoster infection, however there are no lesions at all within the area of edema and erythema, and this looks much more like a cellulitis then any dermatomal rash. I agree with vancomycin and Zosyn as a choice of empiric antibiotic coverage. Agree with blood cultures. Patient clearly is in septic shock with elevated lactate and endorgan damage. We will continue to hydrate her with IV fluids as it still appears she is intravascularly volume deplete. If she continues to worsen or her shock does not improve, I would recommend adding clindamycin for toxin production, although this does not appear to be necrotizing soft tissue infection as by CT scan it appears to keep fascial planes intact. Remains very critically ill with life-threatening septic shock and multiple organ dysfunction. Active problems: VDRF Septic shock Right flank severe cellulitis Acute kidney injury Leukocytosis Elevated CK Anemia Lactic acidemia Hypothyroidism Plan: Plan by systems: Neurologic: Neuro checks per ICU protocol Fentanyl infusion for sedation and vent synchrony. Daily sedation vacation when appropriate Tylenol 650 mg every 6 hours as needed for pain and/or temperature greater than 100.5 Respiratory: Continue with vent support keep sats >92% On PRVC 18, TV 500, IT:0.8, PEEP:5, FIO2: 40% Bronchodilators, ICU vent bundle. Check ABG Start SBT daily Cardiovascular: Off all pressors monitor HR and BP keep MAP>65mmHg. d/c Amio drip. Decrease HC 50mg IV Q6 Serial lactic monitoring- CVP monitoring, For 2D echo Renal: Monitor renal function, I/O's, avoid nephrotoxins Cr: 1.81 from 1.93, Renal is following- . Diurese with Lasix 40mg IV daily FEN/GI: On Pepcid 10mg BID for GI prophylaxis Start tube feeds- Glucerna 1.5 with goal rate 45ml/hr ID: Continue with abx ( Vanco, Clindamycin, Zosyn) ID is following. Monitor for signs of infection s( Fever, WBC) WBC is trending down. 07/24 Wound cx :MRSA 07/24 BC :NGTD 07/23: urine cx: No growth 07/22 BC: NGTD 07/24 s/p wide excisional debridement of soft tissue infection with VAC placement for necrotizing soft tissue infection of abdomen, right hip area right torso area measuring approximately 32 x 18 inches x 2 inches deep. Surgery -Dr. Dumont. Endocrine: levothyroxine 112 mcg/day on hold. TSH:0.08 on 07/24 Glucose monitoring per ICU protocol. -- Continue SSI medium scale for glycemic control Prophylaxis: GI Prophylaxis Famotidine DVT Prophylaxis -- SCDs Lines: Central line placed on 07/22. Peripheral IVs 2, Left Ax Art line CCT 30 mins Chanda Sierra MD July 26, 2017 09:18
[2017-07-26] MEDS: CALCIUM/VITAMIN D 250 MG/125 U TAB PO SCH (09:53)
[2017-07-26] MEDS: DOCUSATE SODIUM 50 MG/SENNA 8.6 MG TAB PO SCH ×2 (09:53→21:04)
[2017-07-26] MEDS: MULTIVITAMIN-OPHTHALMIC 1 TAB PO SCH (09:53)
[2017-07-26] MEDS: FAMOTIDINE 20 MG TAB PO SCH ×2 (09:53→21:04)
[2017-07-26] MEDS: FUROSEMIDE 40 MG/4 ML VIAL IV PUSH SCH (09:56)
[2017-07-26] MEDS: SODIUM CHLORIDE 0.9% FLUSH 10 ML FLUSH IV FLUSH SCH ×2 (09:56→21:00)
[2017-07-26] MEDS ORDERED: FUROSEMIDE 40 MG/4 ML VIAL IV PUSH SCH (10:30)
--- NOTE | 2017-07-26 10:33 | HHI.FPPN ---
Subjective Remarks No acute events overnight. Patient is currently off pressor support. WBCs are trending down. Patient is still intubated but is less sedated today. Palliative care was consulted yesterday and will be having discussion with the family today per their note (Jeffrey Taylor MD R1) Objective Vitals Vital Signs Date Time Temp Pulse Resp B/P (MAP) Pulse Ox O2 Delivery O2 Flow Rate FiO2 07/26/17 09:04 100 35 07/26/17 07:14 77 123/64 07/26/17 06:00 79 07/26/17 04:28 100 40 07/26/17 04:00 98.5 72 107/75 (86) 100 126/69 (88) 07/26/17 04:00 40 07/26/17 04:00 72 07/26/17 04:00 72 126/69 07/26/17 02:55 66 127/68 07/26/17 02:00 67 07/26/17 00:58 96 40 07/26/17 00:00 98.8 83 14 109/71 (84) 99 133/74 (93) 07/26/17 00:00 40 07/26/17 00:00 83 133/74 07/26/17 00:00 83 07/25/17 22:00 72 07/25/17 20:57 98 40 07/25/17 20:00 98.7 75 92/70 (77) 93 110/70 (83) 07/25/17 20:00 40 07/25/17 20:00 75 07/25/17 19:30 66 98/54 (69) 07/25/17 19:30 66 98/54 07/25/17 19:30 66 98/54 07/25/17 19:30 66 98/54 07/25/17 18:52 66 99/54 07/25/17 17:39 100 40 07/25/17 16:00 40 07/25/17 16:00 98.7 80 18 129/76 (93) 100 130/63 (85) 07/25/17 16:00 80 07/25/17 14:00 73 07/25/17 13:32 100 40 07/25/17 12:00 98.8 73 18 87/47 (60) 100 07/25/17 12:00 64 07/25/17 12:00 40 I/O 07/25/17 07/25/17 07/25/17 07/26/17 07/26/17 07/26/17 07:00 15:00 23:00 07:00 15:00 23:00 Intake Total 1830 ml 1100 ml 1164 ml 396 ml Output Total 1150 ml 1450 ml 1150 ml Balance 680 ml 1100 ml -286 ml -754 ml IV Total 1830 ml 1100 ml 1104 ml 396 ml Tube Irrigant 60 ml Output Urine Total 350 ml 850 ml 500 ml Stool Total 0 ml Gastric Drainage Total 175 ml Drainage Total 800 ml 425 ml 650 ml # Bowel Movements 0 (Jeffrey Taylor MD R1) Result Diagram: 07/26/17 0335 07/26/17 0335 Objective Remarks GENERAL: Elderly female, lying in bed intubated. Less sedated, will open eyes to verbal cues HEENT: Normocephalic. NECK: Trachea is midline. There is no JVD. CHEST: Equal chest rise. CARDIOVASCULAR: Warm and well perfused ABDOMEN: Soft, nondistended. Wound vac in place that spans from just distal of the R breast down to the R hip. Measurements are roughly 32 x 18 cm. MUSCULOSKELETAL: Difficult to palpate distal pulses of BLE. 2-5 toes of R foot are purple and cool to the touch. Unchanged from prior exam NEUROLOGICAL: Opens eyes to verbal cues, does not localize. Less sedated than prior exams (Jeffrey Taylor MD R1) Date of Insertion: Jul 22, 2017 (Jeffrey Taylor MD R1) A/P Assessment and Plan Patient is a 62 year old female who presents to the ED via EMS for evaluation of right-sided abdominal, flank and back erythema, swelling and pain. Patient was found to be hypotensive in transit to hospital with systolic pressures in the 70s. Patient has received multiple fluid boluses with minimal improvement. Patient admitted for management of pain and hypotension. Critical care was consulted for pressure support as patient is in severe septic shock. Lactate on admission of 5.1, most recent lactate of 3.3. Patient was started on vancomycin and Zosyn on admission. Patient deteriorated and was intubated on . Started on clindamycin. Surgery performed wide debridement of R torso and placed wound vac. Patient continues to be intubated on 07/26 Discharge Planning Unclear at this point, patient remains critically ill (Jeffrey Taylor MD R1) Attending Attestation Patient seen and examined. Case reviewed and discussed with the Dr. Taylor. Agree with plan of care as discussed with me and documented in the resident note . (Lamar Ortiz MD) Problem List: (1) Severe sepsis ICD Codes: A41.9 - Sepsis, unspecified organism; R65.20 - Severe sepsis without septic shock Status: Acute Plan: Being medically managed by critical care Currently in severe sepsis shock with end organ damage. Intubated since 07/24 Suspected source is cellulitis/abdominal wall infection. Wound is growing MRSA. Blood cultures NGTD CT scan reviewed and showing edema and developing myositis Antibiotics: Vancomycin, Zosyn, clindamycin Currently off pressors on 07/26. WBC is trending down (2) Abdominal wall cellulitis ICD Codes: L03.311 - Cellulitis of abdominal wall Plan: Patient presented with abdominal wall pain, see sepsis plan above CT scan on admission showed edema throughout the subcutaneous tissues of the right upper abdomen CT scan on 07/24 concerning for right-sided cellulitis and developing myositis Wide debridement with wound vac placed on 07/24 (3) Hypotension ICD Codes: I95.9 - Hypotension, unspecified Status: Acute Plan: Currently off all pressors Most recent BP is 123/64 (4) Acute kidney injury ICD Codes: N17.9 - Acute kidney failure, unspecified Status: Acute Plan: Patient admitted with significant AK I. Suspected to be secondary to septic shock Has continued to have elevated creatinine during hospitalization, slowly improving Nephrology consulted on 07/24 (5) Hypothyroidism ICD Codes: E03.9 - Hypothyroidism Status: Chronic Plan: Patient with history of hypothyroidism. * Continue home meds. (6) GERD (gastroesophageal reflux disease) ICD Codes: K21.9 - Gastroesophageal reflux disease Status: Acute Plan: Patient with history of GERD. * Continue home meds. (7) Fluid, Electrolyte, Nutrition, and Prophylaxis Status: Acute Plan: Fluid: Being managed by critical care. Currently off IV fluids Electrolyte: * Monitor and replete as necessary. Nutrition: * Currently intubated DVT Prophylaxis: * SCDs. (Jeffrey Taylor MD R1) Problem Qualifiers (1) Hypotension: Qualified Codes: I95.9 - Hypotension, unspecified Jeffrey Taylor MD R1 July 26, 2017 10:33 Lamar Ortiz MD July 26, 2017 12:36
[2017-07-26] MEDS: CHLORHEXIDINE 0.12% (ORAL KIT) 15 ML CUP MT SCH ×2 (10:39→21:04)
--- NOTE | 2017-07-26 10:55 | HHI.PR ---
Subjective Subjective Notes Intubated/Sedated Objective Vitals/I&O Vital Signs Date Time Temp Pulse Resp B/P (MAP) Pulse Ox O2 Delivery O2 Flow Rate FiO2 07/26/17 09:04 100 35 07/26/17 07:14 77 123/64 07/26/17 04:00 98.5 07/26/17 00:00 14 07/22/17 14:45 Room Air Labs Laboratory Tests Test 07/26/17 03:35 White Blood Count 27.7 Red Blood Count 2.99 Hemoglobin 8.1 Hematocrit 24.4 Mean Corpuscular Volume 81.8 Mean Corpuscular Hemoglobin 27.2 Mean Corpuscular Hemoglobin Concent 33.2 Red Cell Distribution Width 15.0 Platelet Count 145 Mean Platelet Volume 7.1 Neutrophils (%) (Auto) 91.8 Lymphocytes (%) (Auto) 5.2 Monocytes (%) (Auto) 2.8 Eosinophils (%) (Auto) 0.1 Basophils (%) (Auto) 0.1 Neutrophils # (Auto) 25.4 Lymphocytes # (Auto) 1.4 Monocytes # (Auto) 0.8 Eosinophils # (Auto) 0.0 Basophils # (Auto) 0.0 CBC Comment AUTO DIFF Differential Comment AUTO DIFF CONFIRMED Blood Urea Nitrogen 61 Creatinine 1.81 Random Glucose 168 Calcium Level 8.5 Phosphorus Level 3.7 Magnesium Level 1.7 Sodium Level 132 Potassium Level 4.0 Chloride Level 100 Carbon Dioxide Level 18.0 Anion Gap 14 Estimat Glomerular Filtration Rate 28 Date/Time Source Procedure Growth Status 07/24/17 05:05 Blood Peripheral Aerobic Blood Culture - Preliminary NO GROWTH IN 1 DAY Resulted 07/24/17 05:05 Blood Peripheral Anaerobic Blood Culture - Preliminary NO GROWTH IN 1 DAY Resulted 07/22/17 20:10 Nasal Washing Influenza Types A,B Antigen (DELMI) - Final NEGATIVE FOR FLU A AND B ANTIGEN.... Complete 07/23/17 16:05 Urine Catheterized Urine Urine Culture - Final NO GROWTH IN 48 HOURS. Complete 07/24/17 12:22 Wound Abdomen Fungal Smear - Final NO FUNGAL ELEMENTS SEEN. Resulted 07/24/17 12:22 Wound Abdomen Fungal Culture Pending Resulted Cardiovascular: Regular Lungs: Clear Abdomen: Other (RIGHT flank wound vac in place ) Extremities: Other (mild generalized edema ) A/P Assessment and Plan 62 year old female with extensive soft tissue infection -POD2 I&D of wound; wound vac placement -Plan to go to OR tomorrow for vac change -NPO after MN Attending Statement patient seen at bedside remains critical but improving vac change tomorrow Attestation The exam, history, and the medical decision-making described in the above note were completed with the assistance of the mid-level provider. I reviewed and agree with the findings presented. I attest that I had a [id number] encounter with the patient on the same day, and personally performed and documented my assessment and findings in the medical record. Batool Meneses/Rice Drier ARNP July 26, 2017 10:55 Tip Dumont MD July 28, 2017 21:35
--- NOTE | 2017-07-26 14:20 | HHI.NPPN ---
Subjective Renal Failure: Acute Interval History Remains intubated and sedated. Renal function is better. Off pressure support. (Adri Osorio) Review of Systems General General Remarks unable to obtain (Adri Osorio) Objective Data Data 07/26/17 07/27/17 19:00 07:00 Intake Total 333 ml Balance 333 ml IV Total 333 ml Vital Signs Date Time Temp Pulse Resp B/P (MAP) Pulse Ox O2 Delivery O2 Flow Rate FiO2 07/26/17 12:00 97.5 74 0 107/62 (77) 100 104/56 (72) 07/26/17 12:00 35 07/26/17 12:00 74 07/26/17 11:00 35 07/26/17 10:00 80 07/26/17 09:04 100 35 07/26/17 09:00 80 96/50 07/26/17 08:00 40 07/26/17 08:00 97.6 77 93/51 (65) 100 87/45 (59) 07/26/17 08:00 77 07/26/17 07:15 76 124/79 (94) 121/63 (82) 07/26/17 07:14 77 123/64 07/26/17 07:00 76 121/63 07/26/17 06:00 79 07/26/17 04:28 100 40 07/26/17 04:00 98.5 72 107/75 (86) 100 126/69 (88) 07/26/17 04:00 40 07/26/17 04:00 72 07/26/17 04:00 72 126/69 07/26/17 02:55 66 127/68 07/26/17 02:00 67 07/26/17 00:58 96 40 07/26/17 00:00 98.8 83 14 109/71 (84) 99 133/74 (93) 07/26/17 00:00 40 07/26/17 00:00 83 133/74 07/26/17 00:00 83 07/25/17 22:00 72 07/25/17 20:57 98 40 07/25/17 20:00 98.7 75 92/70 (77) 93 110/70 (83) 07/25/17 20:00 40 5/1/18 20:00 75 07/25/17 19:30 66 98/54 (69) 07/25/17 19:30 66 98/54 07/25/17 19:30 66 98/54 07/25/17 19:30 66 98/54 07/25/17 18:52 66 99/54 07/25/17 17:39 100 40 07/25/17 16:00 40 07/25/17 16:00 98.7 80 18 129/76 (93) 100 130/63 (85) 07/25/17 16:00 80 (Adri Osorio) -: 07/26/17 0335 07/26/17 0335 Imaging Last 72 hours Impressions Chest X-Ray 07/24/17 0000 Signed Impressions: Service Date/Time: Monday, July 24, 2017 04:28 - CONCLUSION: 1. Endotracheal and nasogastric tubes appear to be appropriately positioned. Stable position of left subclavian central venous catheter. 2. Lungs remain clear. Jerome Brady MD Chest CT 07/24/17 0000 Signed Impressions: Service Date/Time: Monday, July 24, 2017 05:36 - CONCLUSION: 1. Stranding in the subcutaneous tissues about the right flank with fluid adjacent to the latissimus dorsi. Stranding extends up into the right breast. Findings could represent developing cellulitis. 2. In addition, there is now a small right-sided effusion with bilateral dependent atelectatic changes. Jerome Brady MD Abdomen/Pelvis CT 07/24/17 0000 Signed Impressions: Service Date/Time: Monday, July 24, 2017 05:36 - CONCLUSION: 1. CT findings concerning for a right sided cellulitis and developing myositis. There is some asymmetric prominence of the latissimus dorsi muscle on the right. Unorganized fluid in the deep subcutaneous tissues adjacent to the muscle belly. No drainable fluid collection, however. 2. Developing dependent areas of consolidation, right greater than left with an associated small right-sided effusion. Jerome Brady MD Tubes & Lines: [place] Tubes & Lines Comment wound vac x 2 Drip Comment propofol (Adri Osorio) Physical Exam General Appearance: Well Nourished, Comfortable Appearance Remarks intubated, sedated on vent (Adri Oosrio) Throat Throat Exam: Oral Mucosa [place] Heart & Moist (Adri Osorio) Pulmonary Resp Exam: Clear Bilaterally, Breath Sounds Equal (Adri Osorio) Cardiology CV Exam: Regular, Good Perfusion (Adri Osorio) Gastrointestinal/Abdomen GI Exam: Soft, Non-Tender, Bowel Sounds Present (Adri Osorio) Musculoskeletal MS Exam: Joints Intact, Normal Tone, Unable to Ambulate (Adri Osorio) Integumentary Skin Exam: Warm, Dry Skin Remarks large area on right flank and anterior chest s/p I&D. Wound vac in place. Some bruising around border Skin on Back has began o exhibit the same changes (Adri Osorio) Extremeties Extremities Exam: Pedal Pulses Palpable, Trace Edema Extremeties Remarks right foot ischemia (Adri Osorio) Neurologic Neuro Exam: Unresponsive, Sedated (Adri Osorio) Assessment/Plan Assessment Summary: SHARONA/Acute Renal Failure Electrolyte Assessment: Hyponatremia Problem List: (1) Acute kidney injury ICD Codes: N17.9 - Acute kidney failure, unspecified Status: Acute Plan: Normal renal function at baseline SHARONA due to sepsis and resulting renal hypoperfusion Renal function is better She is non oliguric Off IVF, on lasix 40 mg IV daily. Her fluid balance is positive, continue to monitor. Give a dose of Lasix. Follow renal function daily Continue supportive care Minimize nephrotoxic agents, dose appropriate to renal function (2) Severe sepsis ICD Codes: A41.9 - Sepsis, unspecified organism; R65.20 - Severe sepsis without septic shock Status: Acute Plan: Necrotizing cellulitis, s/p I&D by surgery Reportedly will go back to OR in 2 days Continue to use pressors to maintain MAP > 65mmHg, not requiring Antibiotics include Zosyn and Clindamycin, also vancomycin, continue cautiously , follow drug levels Cultures negative to date Specimen sent to pathology: cellulitis and multifocal abscess formation (3) Hypotension ICD Codes: I95.9 - Hypotension, unspecified Status: Acute Plan: Improved, monitor blood pressure (4) A-fib ICD Codes: I48.91 - Unspecified atrial fibrillation Plan: Off amiodarone, rhythm is regular (Adri Osorio) Plan patient was seen and examined. Agree with above assessment and plan. Renal function is better, but overall her prognosis is guarded. She has long road to recovery. To be taken back to OR tomorrow. (Jony Robert MD) Problem Qualifiers (1) Hypotension: Qualified Codes: I95.9 - Hypotension, unspecified Adri Osorio July 26, 2017 14:20 Jony Robert MD July 26, 2017 21:34
--- NOTE | 2017-07-26 16:18 | HHI.HCPN ---
Reason for visit a. To assist with evaluation and management of symptoms including: pain, dyspnea. b. To assist medical decision maker(s) with: better understanding of current medical conditions; weighing benefits/burdens of medical treatment options; making medical treatment decisions. Subjective/Interval History Pt leukocytosis trending down. Pt's off pressors currently. Remains intubated for dyspnea and remains on fentanyl. Does open eyes today, but not following commands. No grimacing or moaning to show signigficant pain. Does not appear anxious. Family/friend interactions Mr. Nagy did not make it into our planned family meeting today this morning. I was able to contact him by phone this afternoon, after several tries. Per Mr. Nagy, pt is independent of activities of daily living, and able to take care of her own self. He states he just needs to remind her. She has been complaining of pain for the past 2 months especially on her right side. He endorse he has been his guardian for 30+ years. She state she has a diploma. Tomorrow he will bring in the his guardian papers. We spend some time reviewing pt's clinical condition. He remains very hopeful, but understand the tremendous challenges up ahead for patient. Goals of treatment remains aggressive. "Do whatever you need to do." She is a Full Code. Guardian is does not have a decision on peg or trach if it does get to that point. Advance Directives Durable Power of Rides Attendant: Completed, but not made available Objective Vital Signs Date Time Temp Pulse Resp B/P (MAP) Pulse Ox O2 Delivery O2 Flow Rate FiO2 07/26/17 16:04 100 35 07/26/17 14:00 77 07/26/17 12:00 97.5 74 0 107/62 (77) 100 104/56 (72) 07/26/17 12:00 35 07/26/17 12:00 74 07/26/17 11:00 35 07/26/17 10:00 80 07/26/17 09:04 100 35 07/26/17 09:00 80 96/50 07/26/17 08:00 40 07/26/17 08:00 97.6 77 93/51 (65) 100 87/45 (59) 07/26/17 08:00 77 07/26/17 07:15 76 124/79 (94) 121/63 (82) 07/26/17 07:14 77 123/64 07/26/17 07:00 76 121/63 07/26/17 06:00 79 07/26/17 04:28 100 40 07/26/17 04:00 98.5 72 107/75 (86) 100 126/69 (88) 07/26/17 04:00 40 07/26/17 04:00 72 07/26/17 04:00 72 126/69 07/26/17 02:55 66 127/68 07/26/17 02:00 67 07/26/17 00:58 96 40 07/26/17 00:00 98.8 83 14 109/71 (84) 99 133/74 (93) 07/26/17 00:00 40 07/26/17 00:00 83 133/74 07/26/17 00:00 83 07/25/17 22:00 72 07/25/17 20:57 98 40 07/25/17 20:00 98.7 75 92/70 (77) 93 110/70 (83) 07/25/17 20:00 40 07/25/17 20:00 75 07/25/17 19:30 66 98/54 (69) 07/25/17 19:30 66 98/54 07/25/17 19:30 66 98/54 07/25/17 19:30 66 98/54 07/25/17 18:52 66 99/54 07/25/17 17:39 100 40 Intake & Output 07/26/17 07/26/17 06:59 18:59 Intake Total 446 ml 333 ml Output Total 1150 ml Balance -704 ml 333 ml IV Total 446 ml 333 ml Output Urine Total 500 ml Drainage Total 650 ml # Bowel Movements 0 Physical Exam CONSTITUTIONAL/GENERAL: This is an adequately nourished patient, in no apparent distress. TUBES/LINES/DRAINS: Wound vac, PIV, ET tube, scales. SKIN: Right sided wound s/p debridment with wound vac from right thigh all the way up torso to below axillary area. HEAD: Atraumatic. Normocephalic. EYES: Closed. Extraocular motions intact. No scleral icterus. No injection or drainage. Fundi not examined. ENT: . Nose without bleeding or purulent drainage. ET tube in placed NECK: Trachea midline. Supple, nontender. No palpable thyroid enlargement or nodularity. CARDIOVASCULAR: Regular rate and rhythm without murmurs, gallops, or rubs. No JVD. Peripheral pulses symmetric. RESPIRATORY/CHEST: Symmetric, unlabored respirations. Clear to auscultation. Breath sounds equal bilaterally. No wheezes, rales, or rhonchi. GASTROINTESTINAL: Abdomen soft, non-tender, nondistended. No hepato-splenomegaly , or palpable masses. No guarding. Bowel sounds present. GENITOURINARY: Without palpable bladder distension. Scales catheter in place. MUSCULOSKELETAL: Extremities without clubbing, cyanosis, or edema. LYMPHATICS: No palpable cervical or supraclavicular adenopathy. NEUROLOGICAL: Intubated and sedated Moves all extremities. PSYCHIATRIC: Unable to examine Diagnostic Tests Laboratory Laboratory Tests Test 07/24/17 02:40 07/24/17 04:15 07/24/17 11:57 07/24/17 15:45 White Blood Count 31.3 TH/MM3 (4.0-11.0) Red Blood Count 3.28 MIL/MM3 (4.00-5.30) Hemoglobin 8.9 GM/DL (11.6-15.3) Hematocrit 27.2 % (35.0-46.0) Mean Corpuscular Volume 82.9 FL (80.0-100.0) Mean Corpuscular Hemoglobin 27.1 PG (27.0-34.0) Mean Corpuscular Hemoglobin Concent 32.6 % (32.0-36.0) Red Cell Distribution Width 15.2 % (11.6-17.2) Platelet Count 282 TH/MM3 (150-450) Mean Platelet Volume 6.4 FL (7.0-11.0) CBC Comment AUTO DIFF Differential Total Cells Counted 100 Neutrophils % (Manual) 69 % (16-70) Band Neutrophils % 20 % (0-6) Lymphocytes % 2 % (9-44) Monocytes % 3 % (0-8) Neutrophils # (Manual) 29.7 TH/MM3 (1.8-7.7) Metamyelocytes 6 % (0-1) Differential Comment FINAL DIFF MANUAL Toxic Granulation 2+ (NORMAL) Platelet Estimate NORMAL (NORMAL) Platelet Morphology Comment NORMAL (NORMAL) Ovalocytes 1+ (NORMAL) Prothrombin Time 15.6 SEC (9.8-11.6) Prothromb Time International Ratio 1.5 RATIO Activated Partial Thromboplast Time 45.0 SEC (24.3-30.1) Blood Urea Nitrogen 61 MG/DL (7-18) Creatinine 2.03 MG/DL (0.50-1.00) Random Glucose 169 MG/DL (74-106) Total Protein 4.1 GM/DL (6.4-8.2) Albumin 1.4 GM/DL (3.4-5.0) Calcium Level 8.0 MG/DL (8.5-10.1) Alkaline Phosphatase 94 U/L (45-117) Aspartate Amino Transf (AST/SGOT) 42 U/L (15-37) Alanine Aminotransferase (ALT/SGPT) 20 U/L (10-53) Total Bilirubin 0.4 MG/DL (0.2-1.0) Sodium Level 142 MEQ/L (136-145) Potassium Level 5.0 MEQ/L (3.5-5.1) Chloride Level 110 MEQ/L (98-107) Carbon Dioxide Level 22.2 MEQ/L (21.0-32.0) Anion Gap 10 MEQ/L (5-15) Estimat Glomerular Filtration Rate 25 ML/MIN (>89) Lactic Acid Level 3.4 mmol/L (0.4-2.0) Phosphorus Level 4.8 MG/DL (2.5-4.9) Total Creatine Kinase 954 U/L (26-192) 788 U/L (26-192) Creatine Kinase MB 14.2 NG/ML (0.5-3.6) 13.0 NG/ML (0.5-3.6) Creatine Kinase MB % 1.5 % (0.0-4.0) 1.6 % (0.0-4.0) Troponin I 0.14 NG/ML (0.02-0.05) 0.11 NG/ML (0.02-0.05) Thyroid Stimulating Hormone 3rd Gen 0.083 uIU/ML (0.358-3.740) Random Vancomycin Level 15.4 COMMENT Blood Gas Puncture Site ART LINE DRAWN IN OR Blood Gas Patient Temperature 98.6 98.6 Blood Gas HCO3 16 mmol/L (22-26) 19 mmol/L (22-26) Blood Gas Base Excess -6.6 mmol/L (-2-2) -5.4 mmol/L (-2-2) Blood Gas Oxygen Saturation 95 % (90-100) 95 % (90-100) Arterial Blood pH 7.50 (7.380-7.420) 7.38 (7.380-7.420) Arterial Blood Partial Pressure CO2 21 mmHg (38-42) 32 mmHg (38-42) Arterial Blood Partial Pressure O2 236 mmHg (61-120) 404 mmHg (61-120) Arterial Blood Oxygen Content 12.9 Vol % (12.0-20.0) 12.5 Vol % (12.0-20.0) Arterial Blood Carboxyhemoglobin 0.2 % (0-4) 0.1 % (0-4) Arterial Blood Methemoglobin 2.7 % (0-2) 2.7 % (0-2) Blood Gas Hemoglobin 9.2 G/DL (12.0-16.0) 8.5 G/DL (12.0-16.0) Oxygen Delivery Device VENTILATOR Blood Gas Ventilator Setting [facility]/AC 24/500/5PEEP Blood Gas Inspired Oxygen 50 % 100 % Test 07/24/17 18:00 07/25/17 01:00 07/25/17 05:00 07/25/17 09:20 Urine Total Volume 24 Hours 500 ML Urine Total Protein 24 Hour 600 MG/24HR (0-150) Phosphorus Level 2.6 MG/DL (2.5-4.9) 3.3 MG/DL (2.5-4.9) Magnesium Level 1.2 MG/DL (1.5-2.5) 1.3 MG/DL (1.5-2.5) Total Creatine Kinase 357 U/L (26-192) 274 U/L (26-192) Creatine Kinase MB 7.9 NG/ML (0.5-3.6) 6.3 NG/ML (0.5-3.6) Creatine Kinase MB % 2.2 % (0.0-4.0) 2.3 % (0.0-4.0) Troponin I 0.07 NG/ML (0.02-0.05) White Blood Count 30.4 TH/MM3 (4.0-11.0) Red Blood Count 3.28 MIL/MM3 (4.00-5.30) Hemoglobin 8.9 GM/DL (11.6-15.3) Hematocrit 27.0 % (35.0-46.0) Mean Corpuscular Volume 82.3 FL (80.0-100.0) Mean Corpuscular Hemoglobin 27.0 PG (27.0-34.0) Mean Corpuscular Hemoglobin Concent 32.8 % (32.0-36.0) Red Cell Distribution Width 15.3 % (11.6-17.2) Platelet Count 190 TH/MM3 (150-450) Mean Platelet Volume 6.7 FL (7.0-11.0) CBC Comment AUTO DIFF Differential Total Cells Counted 100 Neutrophils % (Manual) 64 % (16-70) Band Neutrophils % 32 % (0-6) Lymphocytes % 1 % (9-44) Monocytes % 2 % (0-8) Neutrophils # (Manual) 29.5 TH/MM3 (1.8-7.7) Metamyelocytes 1 % (0-1) Nucleated Red Blood Cells 2 /100 WBC (0-0) Differential Comment FINAL DIFF MANUAL Toxic Granulation 1+ (NORMAL) Toxic Vacuolation PRESENT (NONE SEEN) Platelet Estimate NORMAL (NORMAL) Platelet Morphology Comment NORMAL (NORMAL) Prothrombin Time 16.3 SEC (9.8-11.6) Prothromb Time International Ratio 1.6 RATIO Blood Urea Nitrogen 52 MG/DL (7-18) Creatinine 1.93 MG/DL (0.50-1.00) Random Glucose 214 MG/DL (74-106) Total Protein 4.1 GM/DL (6.4-8.2) Albumin 1.1 GM/DL (3.4-5.0) Calcium Level 7.8 MG/DL (8.5-10.1) Alkaline Phosphatase 112 U/L (45-117) Aspartate Amino Transf (AST/SGOT) 38 U/L (15-37) Alanine Aminotransferase (ALT/SGPT) 32 U/L (10-53) Total Bilirubin 0.9 MG/DL (0.2-1.0) Sodium Level 131 MEQ/L (136-145) Potassium Level 4.5 MEQ/L (3.5-5.1) Chloride Level 101 MEQ/L (98-107) Carbon Dioxide Level 18.2 MEQ/L (21.0-32.0) Anion Gap 12 MEQ/L (5-15) Estimat Glomerular Filtration Rate 26 ML/MIN (>89) Random Vancomycin Level 19.1 COMMENT Lactic Acid Level 4.6 mmol/L (0.4-2.0) Test 07/26/17 03:35 07/26/17 10:10 07/26/17 13:40 White Blood Count 27.7 TH/MM3 (4.0-11.0) Red Blood Count 2.99 MIL/MM3 (4.00-5.30) Hemoglobin 8.1 GM/DL (11.6-15.3) Hematocrit 24.4 % (35.0-46.0) Mean Corpuscular Volume 81.8 FL (80.0-100.0) Mean Corpuscular Hemoglobin 27.2 PG (27.0-34.0) Mean Corpuscular Hemoglobin Concent 33.2 % (32.0-36.0) Red Cell Distribution Width 15.0 % (11.6-17.2) Platelet Count 145 TH/MM3 (150-450) Mean Platelet Volume 7.1 FL (7.0-11.0) Neutrophils (%) (Auto) 91.8 % (16.0-70.0) Lymphocytes (%) (Auto) 5.2 % (9.0-44.0) Monocytes (%) (Auto) 2.8 % (0.0-8.0) Eosinophils (%) (Auto) 0.1 % (0.0-4.0) Basophils (%) (Auto) 0.1 % (0.0-2.0) Neutrophils # (Auto) 25.4 TH/MM3 (1.8-7.7) Lymphocytes # (Auto) 1.4 TH/MM3 (1.0-4.8) Monocytes # (Auto) 0.8 TH/MM3 (0-0.9) Eosinophils # (Auto) 0.0 TH/MM3 (0-0.4) Basophils # (Auto) 0.0 TH/MM3 (0-0.2) CBC Comment AUTO DIFF Differential Comment AUTO DIFF CONFIRMED Blood Urea Nitrogen 61 MG/DL (7-18) Creatinine 1.81 MG/DL (0.50-1.00) Random Glucose 168 MG/DL (74-106) Calcium Level 8.5 MG/DL (8.5-10.1) Phosphorus Level 3.7 MG/DL (2.5-4.9) Magnesium Level 1.7 MG/DL (1.5-2.5) Sodium Level 132 MEQ/L (136-145) Potassium Level 4.0 MEQ/L (3.5-5.1) Chloride Level 100 MEQ/L (98-107) Carbon Dioxide Level 18.0 MEQ/L (21.0-32.0) Anion Gap 14 MEQ/L (5-15) Estimat Glomerular Filtration Rate 28 ML/MIN (>89) Lactic Acid Level 1.8 mmol/L (0.4-2.0) Blood Gas Puncture Site ART LINE Blood Gas Patient Temperature 98.6 Blood Gas HCO3 20 mmol/L (22-26) Blood Gas Base Excess -2.8 mmol/L (-2-2) Blood Gas Oxygen Saturation 95 % (90-100) Arterial Blood pH 7.54 (7.380-7.420) Arterial Blood Partial Pressure CO2 23 mmHg (38-42) Arterial Blood Partial Pressure O2 139 mmHg (61-120) Arterial Blood Oxygen Content 13.2 Vol % (12.0-20.0) Arterial Blood Carboxyhemoglobin 0.1 % (0-4) Arterial Blood Methemoglobin 2.4 % (0-2) Blood Gas Hemoglobin 9.7 G/DL (12.0-16.0) Oxygen Delivery Device VENTILATOR Blood Gas Ventilator Setting Blood Gas Inspired Oxygen 35 % Result Diagram: 07/26/17 0335 07/26/17 0335 Microbiology Microbiology Date/Time Source Procedure Growth Status 07/24/17 05:05 Blood Peripheral Aerobic Blood Culture - Preliminary NO GROWTH IN 2 DAYS Resulted 07/24/17 05:05 Blood Peripheral Anaerobic Blood Culture - Preliminary NO GROWTH IN 2 DAYS Resulted 07/24/17 03:40 Blood Peripheral Aerobic Blood Culture - Preliminary NO GROWTH IN 2 DAYS Resulted 07/24/17 03:40 Blood Peripheral Anaerobic Blood Culture - Preliminary NO GROWTH IN 2 DAYS Resulted 07/24/17 12:22 Wound Abdomen Fungal Smear - Final NO FUNGAL ELEMENTS SEEN. Resulted 07/24/17 12:22 Wound Abdomen Fungal Culture Pending Resulted 07/24/17 12:22 Wound Abdomen Acid Fast Stain - Final NO ACID FAST BACILLI SEEN Resulted 07/24/17 12:22 Wound Abdomen Mycobacterial Culture Pending Resulted 07/24/17 12:22 Wound Abdomen Gram Stain - Final Resulted 07/24/17 12:22 Wound Culture - Preliminary S. Aureus Mrsa Resulted Assessment and Plan Disease Oriented Problem List: (1) Severe sepsis (2) Abdominal wall cellulitis Comment: required debridement of necrotizing tissue. (3) Acute kidney injury (4) DM (diabetes mellitus) Symptom Scale: (1) Dyspnea 0-10 Scale: Unable to quantify (2) Pain 0-10 Scale: Unable to quantify Pertinent Non-Medical Issues Psychosocial:developmental delay Spiritual: unknown Legal: await paper work guardian/poa of Mr. Nagy. Ethical issues impacting care:none Important Contacts Felipe Nagy reported POA. [phone] Prognosis 62 year old female with severe sepsis, due to large right sided necrotizing wound + for MRSA. Spoke with rn compliance, currently pressor need is being titrated down, and kidney function is improving. Prognosis is guarded. Pt's developmental delays may hinder pt's ability to convalescence. Code Status: Full Code Plan ==code: Full == capacity- pt currently has not capacity to make medical decision. Has hx of developemental delay, and has a guardian. == POA/guardian- reportedly Mr. Felipe Nagy, I have asked Mr. Nagy to bring in guardian paperwork tomorrow. He states he will be in in the afternoon.. ==Goals of treatment.- Mr. Nagy did not make it into our planned family meeting today this morning. I was able to contact him by phone this afternoon, after several tries. Per Mr. Nagy, pt is independent of activities of daily living, and able to take care of her own self. He states he just needs to remind her. She has been complaining of pain for the past 2 months especially on her right side. He endorse he has been his guardian for 30+ years. She state she has a diploma. Tomorrow he will bring in the his guardian papers. We spend some time reviewing pt's clinical condition. He remains very hopeful, but understand the tremendous challenges up ahead for patient. Goals of treatment remains aggressive. "Do whatever you need to do." She is a Full Code. Guardian is does not have a decision on peg or trach if it does get to that point. == dyspnea- currently intubated. continue rn compliance care. pain- s/p surgery, extensive right sided wound/ general debility. No evidence of pain on my visit, and fentanyl appears to be effective. Continue fentanyl for now. == palliative care will continue to follow. d/w with rn compliance. Attestation To help prompt me to consider important information that might be impacting today's encounter and assessment, information from prior notes written by myself or my colleagues may have been "brought forward" into today's note. My signature on this note, however, is an attestation that I personally performed the exam, history, and/or decision-making noted today, and, unless otherwise indicated, the interactions with patient, family, and staff as well as the review of records all occurred today. I also attest that the listed assessment and stated plan reflect my best clinical judgment today based on the combination of historical information, prior notes, and today's exam/ interactions. When time spent is documented, it refers only to time spent today by the signer, or if indicated, combined time spent today by collaborating physician/nurse practitioner. Keshawn Baez MD July 26, 2017 16:17
[2017-07-27] VITALS (21 sets, daily range): BP systolic 98–151; BP diastolic 55–101; PULSE 72–86; RESP 8–16; TEMP 97.6–98.5; O2SAT 100
[2017-07-27] MEDS: INSULIN NovoLIN REGULAR SUPPLEMENTAL SCALE SQ SCH ×6 (00:45→20:23)
[2017-07-27] MEDS: PIPERACIL-TAZO 3.375 GM PREMIX 50 ML IV SCH ×3 (01:44→17:12)
[2017-07-27] MEDS: fentaNYL DRIP 250 ML IV PRN ×2 (03:31→17:11)
[2017-07-27] MEDS: CLINDAMYCIN 600 MG/NS PREMIX 50 ML IV SCH ×4 (04:00→20:23)
[2017-07-27] MEDS: CHLORHEXIDINE GLUCONATE 2 % 1 PACK (2 CLOTHS)(taper/protocol) TOPICAL SCH (04:00)
[2017-07-27] MEDS: HYDROCORTISONE SOD SUCCINATE 100 MG VIAL IV PUSH SCH ×4 (05:02→17:12)
[2017-07-27 05:17] LABS: HEMATOCRIT 25.2 % (35.0-46.0); HEMOGLOBIN 8.2 GM/DL (11.6-15.3); MEAN CELL VOLUME 81.8 FL (80.0-100.0); MEAN CORPUSCULAR HEMOGLOBIN 26.7 PG (27.0-34.0); MEAN CORPUSCULAR HGB CONC 32.7 % (32.0-36.0); MEAN PLATELET VOLUME 7.2 FL (7.0-11.0); PLATELET COUNT 113 TH/MM3 (150-450); RED BLOOD COUNT 3.08 MIL/MM3 (4.00-5.30); RED CELL DISTRIBUTION WIDTH 14.9 % (11.6-17.2); WHITE BLOOD COUNT 32.3 TH/MM3 (4.0-11.0)
[2017-07-27 05:37] LABS: BICARBONATE 22.5 MEQ/L (21.0-32.0); CALCIUM 8.6 MG/DL (8.5-10.1); CREATININE 1.78 MG/DL (0.50-1.00)
[2017-07-27 05:39] LABS: RANDOM VANCOMYCIN 18.4 COMMENT
[2017-07-27 08:41] LABS: BANDS 6 % (0-6); LYMPHOCYTES 4 % (9-44); MONOCYTES 4 % (0-8); NEUTROPHIL # MANUAL DIFF 29.7 TH/MM3 (1.8-7.7); POLYS (SEG NEUTROPHILS) 86 % (16-70)
[2017-07-27] MEDS: BUDESONIDE 9 MG PO SCH (09:00)
[2017-07-27] MEDS: DOCUSATE SODIUM 50 MG/SENNA 8.6 MG TAB PO SCH ×2 (09:47→20:23)
[2017-07-27] MEDS: FAMOTIDINE 20 MG TAB PO SCH ×2 (09:47→20:23)
[2017-07-27] MEDS: CALCIUM/VITAMIN D 250 MG/125 U TAB PO SCH (09:47)
[2017-07-27] MEDS: MULTIVITAMIN-OPHTHALMIC 1 TAB PO SCH (09:47)
[2017-07-27] MEDS: FUROSEMIDE 40 MG/4 ML VIAL IV PUSH SCH (09:48)
[2017-07-27] MEDS: CHLORHEXIDINE 0.12% (ORAL KIT) 15 ML CUP MT SCH ×2 (09:48→20:00)
[2017-07-27] MEDS: SODIUM CHLORIDE 0.9% FLUSH 10 ML FLUSH IV FLUSH SCH ×2 (09:48→20:23)
--- NOTE | 2017-07-27 10:00 | HHI.FPPN ---
Subjective Remarks Pt seen and examined this morning. No acute events overnight. Planned for OR today. Intubated, less sedated (Rishi Meza MD R2) Objective Vitals Vital Signs Date Time Temp Pulse Resp B/P (MAP) Pulse Ox O2 Delivery O2 Flow Rate FiO2 07/27/17 08:19 100 35 07/27/17 08:19 35 07/27/17 06:00 77 07/27/17 04:11 100 35 07/27/17 04:00 97.9 81 10 127/72 (90) 100 116/63 (80) 07/27/17 04:00 81 07/27/17 04:00 35 07/27/17 02:00 81 07/27/17 00:19 100 35 07/27/17 00:00 98.0 83 122/75 (91) 100 123/66 (85) 07/27/17 00:00 83 07/27/17 00:00 83 122/75 (91) 123/66 (85) 07/27/17 00:00 35 07/26/17 22:00 75 07/26/17 20:04 100 35 07/26/17 20:00 97.6 75 91/56 (68) 100 91/50 (64) 07/26/17 20:00 75 07/26/17 20:00 35 07/26/17 18:19 76 106/62 (77) 125/68 (87) 07/26/17 18:00 86 07/26/17 16:04 100 35 07/26/17 16:00 97.5 79 8 139/82 (101) 100 141/74 (96) 07/26/17 16:00 35 07/26/17 16:00 79 07/26/17 14:00 77 07/26/17 12:00 97.5 74 0 107/62 (77) 100 104/56 (72) 07/26/17 12:00 35 07/26/17 12:00 74 07/26/17 11:00 35 07/26/17 10:00 80 I/O 07/26/17 07/26/17 07/26/17 07/27/17 07/27/17 07/27/17 07:00 15:00 23:00 07:00 15:00 23:00 Intake Total 396 ml 333 ml 468 ml 538 ml 50 ml Output Total 1150 ml 1925 ml 2000 ml Balance -754 ml 333 ml -1457 ml -1462 ml 50 ml IV Total 396 ml 333 ml 350 ml 350 ml 50 ml Tube Feeding 138 ml Autotransfusion 118 ml Tube Irrigant 50 ml Output Urine Total 500 ml 1700 ml 1000 ml Drainage Total 650 ml 225 ml 1000 ml # Bowel Movements 0 0 0 (Rishi Meza MD R2) Result Diagram: 07/27/1744407/27/17444 Objective Remarks GENERAL: Elderly female, lying in bed intubated. Less sedated, will open eyes to verbal cues NECK: Trachea is midline. There is no JVD. CHEST: Equal chest rise. CARDIOVASCULAR: Warm and well perfused. Regular rhythm. ABDOMEN: Soft, nondistended. Wound vac in place that spans from just distal of the R breast down to the R hip. Measurements are roughly 32 x 18 cm. MUSCULOSKELETAL: Difficult to palpate distal pulses of BLE. 2-5 toes of R foot are purple and cool to the touch. Unchanged from prior exam NEUROLOGICAL: Opens eyes to verbal cues, does not localize. (Rishi Meza MD R2) Date of Insertion: Jul 22, 2017 (Rishi Meza MD R2) A/P Assessment and Plan Patient is a 62 year old female who presents to the ED via EMS for evaluation of right-sided abdominal, flank and back erythema, swelling and pain. Patient was found to be hypotensive in transit to hospital with systolic pressures in the 70s. Patient has received multiple fluid boluses with minimal improvement. Patient admitted for management of pain and hypotension. Critical care was consulted for pressure support as patient is in severe septic shock. Lactate on admission of 5.1, most recent lactate of 3.3. Patient was started on vancomycin and Zosyn on admission. Patient deteriorated and was intubated on . Started on clindamycin. Surgery performed wide debridement of R torso and placed wound vac. Patient continues to be intubated on 07/26 Discharge Planning Unclear at this point, patient remains critically ill (Rishi Meza MD R2) Attending Attestation Patient seen and examined. Case reviewed and discussed with the resident team. Agree with plan of care as discussed with me and documented in the resident note. (Lamar Ortiz MD) Problem List: (1) Severe sepsis ICD Codes: A41.9 - Sepsis, unspecified organism; R65.20 - Severe sepsis without septic shock Status: Acute Plan: Being medically managed by critical care Currently in severe sepsis shock with end organ damage. Intubated since 07/24 Suspected source is cellulitis/abdominal wall infection. Wound is growing MRSA. Blood cultures NGTD CT scan reviewed and showing edema and developing myositis Antibiotics: Vancomycin, Zosyn, clindamycin Currently off pressors on 07/26. WBC up again today (2) Abdominal wall cellulitis ICD Codes: L03.311 - Cellulitis of abdominal wall Plan: Patient presented with abdominal wall pain, see sepsis plan above CT scan on admission showed edema throughout the subcutaneous tissues of the right upper abdomen CT scan on 07/24 concerning for right-sided cellulitis and developing myositis Wide debridement with wound vac placed on 07/24 Plan for excisional debridement and wound vac change today, 07/27 (3) Hypotension ICD Codes: I95.9 - Hypotension, unspecified Status: Acute Plan: Currently off all pressors BP stabilized (4) Acute kidney injury ICD Codes: N17.9 - Acute kidney failure, unspecified Status: Acute Plan: Patient admitted with significant SHARONA. Suspected to be secondary to septic shock Has continued to have elevated creatinine during hospitalization, slowly improving Nephrology consulted on 07/24 Improving renal function (5) Hypothyroidism ICD Codes: E03.9 - Hypothyroidism Status: Chronic Plan: Patient with history of hypothyroidism. * Continue home meds. (6) GERD (gastroesophageal reflux disease) ICD Codes: K21.9 - Gastroesophageal reflux disease Status: Acute Plan: Patient with history of GERD. * Continue home meds. (7) Fluid, Electrolyte, Nutrition, and Prophylaxis Status: Acute Plan: Fluid: Being managed by critical care. Currently off IV fluids Electrolyte: * Monitor and replete as necessary. Nutrition: * Currently intubated DVT Prophylaxis: * SCDs. (Rishi Meza MD R2) Problem Qualifiers (1) Hypotension: Qualified Codes: I95.9 - Hypotension, unspecified Rishi Meza MD R2 July 27, 2017 10:00 Lamar Ortiz MD July 27, 2017 13:31
--- NOTE | 2017-07-27 10:03 | HHI.CCPN ---
Subjective Remarks/Hospital Course This is a 62-year-old female with a history of developmental delay and recurrent urinary tract infections who presents with new onset right-sided abdominal and flank pain. Per the [facility] admission note this is been going on for approximately 4 weeks. Patient has a history of developmental delay and is difficult to get a complete history from her, no analysis with her on my evaluation. On my evaluation she endorses flank pain radiating around to her chest. She endorses subjective chills. Denies recent fevers to me. Also endorses nausea, vomiting. In the emergency department she was found to have significant erythema, rubor, dolor, and edema from approximately the fifth intercostal space down to the eighth or ninth intercostal space wrapping around from the midline in the back all the way around to just medial to the breast. CT scan of the abdomen and pelvis confirms significant subcutaneous edema, but this area of edema appears to be contained by intact fascial planes, particularly in the midline of the back. Laboratory evidence is significant for a white blood cell count of 27k, creatinine is 3.58, potassium 5.4, bicarb of 17.9, anion gap elevated at 15, BUN of 64, an initial lactate of 5.1. In the emergency department she received 3 L of crystalloid IV fluids. Despite this she is hypotensive with a mean arterial pressure of 51. Critical care medicine is consulted to evaluate manage her presumed septic shock secondary to severe cellulitis of the trunk. I have given her an additional liter of crystalloid and then placed central venous access, see separate procedure note for details. In addition her lactate is starting to clear and is now 2.9 with an more currently pending, however it is not clearing fast enough and she remains oliguric. I placed a [place] for accurate hourly I's and O's. The remainder of the review systems for the patient is negative except documented in the HPI, although this is severely limited by her baseline developmental delay. Subjective 07/23: Patient remains on vasopressors, noted metabolic acidosis, bicarbonate level of 15. Sodium bicarbonate infusion initiated. 07/24 Patient was intubated early this morning now on Vasopressin and Neosyn 300 mics in addition patient is on Amio and Bicarb drips. WBC increased 31. CT abd/pelvis showed right sided cellulites and developing myositis. 07/25 Patient went to OR yesterday s/p wide excisional debridement of soft tissue infection with VAC placement for necrotizing soft tissue infection of abdomen, right hip area right torso area measuring approximately 32 x 18 inches x 2 inches deep. She remains on Vasopressin 0.04 and Neosyn down to 120 mics. On Amio drip. 07/26 No events overnight. Off all pressors, WBC is trending down. On Amio drip. 07/27 Patient remains intubated for return to OR today and wound vac exchange. Objective Vital Signs Date Time Temp Pulse Resp B/P (MAP) Pulse Ox O2 Delivery O2 Flow Rate FiO2 07/27/17 08:19 100 35 07/27/17 06:00 77 07/27/17 04:00 97.9 10 127/72 (90) 116/63 (80) Intake and Output 07/27/17 07/27/17 07/28/17 08:00 16:00 00:00 Intake Total 538 ml Output Total 2000 ml Balance -1462 ml Result Diagram: 07/27/17 0445 07/27/17 0445 Other Results Laboratory Tests Test 07/26/17 10:10 07/26/17 13:40 07/27/17 04:45 Lactic Acid Level 1.8 mmol/L Blood Gas Puncture Site ART LINE Blood Gas Patient Temperature 98.6 Blood Gas HCO3 20 mmol/L Blood Gas Base Excess -2.8 mmol/L Blood Gas Oxygen Saturation 95 % Arterial Blood pH 7.54 Arterial Blood Partial Pressure CO2 23 mmHg Arterial Blood Partial Pressure O2 139 mmHg Arterial Blood Oxygen Content 13.2 Vol % Arterial Blood Carboxyhemoglobin 0.1 % Arterial Blood Methemoglobin 2.4 % Blood Gas Hemoglobin 9.7 G/DL Oxygen Delivery Device VENTILATOR Blood Gas Ventilator Setting Blood Gas Inspired Oxygen 35 % White Blood Count 32.3 TH/MM3 Red Blood Count 3.08 MIL/MM3 Hemoglobin 8.2 GM/DL Hematocrit 25.2 % Mean Corpuscular Volume 81.8 FL Mean Corpuscular Hemoglobin 26.7 PG Mean Corpuscular Hemoglobin Concent 32.7 % Red Cell Distribution Width 14.9 % Platelet Count 113 TH/MM3 Mean Platelet Volume 7.2 FL CBC Comment AUTO DIFF Differential Total Cells Counted 100 Neutrophils % (Manual) 86 % Band Neutrophils % 6 % Lymphocytes % 4 % Monocytes % 4 % Neutrophils # (Manual) 29.7 TH/MM3 Differential Comment FINAL DIFF MANUAL Platelet Estimate LOW Platelet Morphology Comment NORMAL Blood Urea Nitrogen 67 MG/DL Creatinine 1.78 MG/DL Random Glucose 103 MG/DL Calcium Level 8.6 MG/DL Sodium Level 139 MEQ/L Potassium Level 3.7 MEQ/L Chloride Level 105 MEQ/L Carbon Dioxide Level 22.5 MEQ/L Anion Gap 12 MEQ/L Estimat Glomerular Filtration Rate 29 ML/MIN Random Vancomycin Level 18.4 COMMENT Imaging Last Impressions Chest X-Ray 07/24/17 0000 Signed Impressions: Service Date/Time: Monday, July 24, 2017 04:28 - CONCLUSION: 1. Endotracheal and nasogastric tubes appear to be appropriately positioned. Stable position of left subclavian central venous catheter. 2. Lungs remain clear. Jerome Brady MD Chest CT 07/24/17 0000 Signed Impressions: Service Date/Time: Monday, July 24, 2017 05:36 - CONCLUSION: 1. Stranding in the subcutaneous tissues about the right flank with fluid adjacent to the latissimus dorsi. Stranding extends up into the right breast. Findings could represent developing cellulitis. 2. In addition, there is now a small right-sided effusion with bilateral dependent atelectatic changes. Jerome Brady MD Abdomen/Pelvis CT 07/24/17 0000 Signed Impressions: Service Date/Time: Monday, July 24, 2017 05:36 - CONCLUSION: 1. CT findings concerning for a right sided cellulitis and developing myositis. There is some asymmetric prominence of the latissimus dorsi muscle on the right. Unorganized fluid in the deep subcutaneous tissues adjacent to the muscle belly. No drainable fluid collection, however. 2. Developing dependent areas of consolidation, right greater than left with an associated small right-sided effusion. Jerome Brady MD Head CT 07/22/17 1253 Signed Impressions: Service Date/Time: Saturday, July 22, 2017 13:26 - CONCLUSION: No acute disease. Derrick Herny MD Objective Remarks GENERAL: Elderly female, lying in bed intubated. HEENT: Normocephalic. Atraumatic. Pupils equal, round, reactive, conjugate. Mucous membranes are moist NECK: Trachea is midline. There is no JVD. CHEST: Equal chest rise. Room air. CARDIOVASCULAR: RRR, nl S1, S2 ABDOMEN: Soft, nontender, nondistended, +BS, wound Vac in place. MUSCULOSKELETAL: Pulses 2+. No peripheral edema. NEUROLOGICAL: Intubated Date of Insertion: Jul 22, 2017 A/P Assessment and Plan Active problems: VDRF s/p Septic shock Right flank severe cellulitis Acute kidney injury Leukocytosis Elevated CK Anemia Lactic acidemia Hypothyroidism Plan: Plan by systems: Neurologic: Neuro checks per ICU protocol Fentanyl infusion for sedation and vent synchrony. Daily sedation vacation Tylenol 650 mg every 6 hours as needed for pain and/or temperature greater than 100.5 Respiratory: Continue with vent support keep sats >92% On PRVC 10, TV 350 IT:0.8, PEEP:5, FIO2: 30% Bronchodilators, ICU vent bundle. Check ABG SBT daily as lawrence. Check CXR and ABG Cardiovascular: Monitor HR and BP keep MAP>65mmHg. HC 50mg IV Q6 Lactic acid 1.8 from 4.6 CVP monitoring, For 2D echo Renal: Monitor renal function, I/O's, avoid nephrotoxins Cr:1.78 from 1.8 Renal is following- . Continue with Lasix 40mg IV daily FEN/GI: On Pepcid 10mg BID for GI prophylaxis Tube feeds- Glucerna 1.5 with goal rate 45ml/hr on hold as patient is going to OR today ID: Continue with abx ( Vanco, Clindamycin, Zosyn) ID is following. Monitor for signs of infection s( Fever, WBC) 07/24 Wound cx :MRSA 07/24 BC :NGTD 07/23: urine cx: No growth 07/22 BC: NGTD 07/24 s/p wide excisional debridement of soft tissue infection with VAC placement for necrotizing soft tissue infection of abdomen, right hip area right torso area measuring approximately 32 x 18 inches x 2 inches deep. Surgery -Dr. Dumont. Endocrine: levothyroxine 112 mcg/day on hold. TSH:0.08 on 07/24 Glucose monitoring per ICU protocol. -- Continue SSI medium scale for glycemic control Prophylaxis: GI Prophylaxis Famotidine DVT Prophylaxis -- SCDs Lines: Central line placed on 07/22. Peripheral IVs 2, Left Ax Art line CCT 30 mins Chanda Sierra MD July 27, 2017 10:03
--- NOTE | 2017-07-27 11:07 | HHI.IDPN ---
Subjective Subjective Remarks Most of the history was obtained by review of medical records. Patient shortly being wheeled out to the operating room for surgical exploration of the site of necrotizing fasciitis Septic shock. Ms. Eldridge is a 62-year-old female who reportedly has developmental delays per chart review. Patient presented to the emergency department via EMS for evaluation of right-sided abdominal, flank and back erythema swelling and pain. Patient's care provider and power of sports attorney listed on the chart is Mr. Felipe Nagy who can be contacted at [phone]. Patient had earlier reported to others that she was feeling unwell for the past 4 weeks. Patient reported increase in her migraine symptoms. Patient also reported continuous, nonradiating sharps times burning pain over the right upper quadrant that is expanded to include her right flank and back. She denies any trauma to these areas. Patient reported to others prior to being intubated that she had nausea and vomiting associated with decreased appetite. Patient also had reported to others that she was dizzy and lightheaded. Per review of records it appears that patient has had multiple falls as well as has had urinary incontinence at baseline with decreased urine output over the last few days. Patient also reported subjective symptoms such as burning with urination. Per EMS, patient was found to be hypotensive. Systolic pressure was recorded in the 70s. She received fluid in transit with minimal improvement. In the emergency department she was found to have significant erythema,pain and edema from approximately the fifth intercostal space down to the eighth or ninth intercostal space wrapping around from the midline in the back all the way around to just medial to the breast. CT scan of the abdomen and pelvis confirms significant subcutaneous edema, but this area of edema appears to be contained by intact fascial planes, particularly in the midline of the back. Laboratory evidence is significant for a white blood cell count of 27k, creatinine is 3.58, potassium 5.4, bicarb of 17.9, anion gap elevated at 15, BUN of 64, an initial lactate of 5.1. In the emergency department she received 3 L of crystalloid IV fluids. Critical care medicine is consulted to evaluate manage her presumed septic shock secondary to severe cellulitis of the trunk. Overnight critical care medicine was consulted for worsening sepsis and septic shock. Patient had to be intubated and upon evaluation was found to have evidence suggestive of necrotizing fasciitis involving similar areas as reported on the emergency room but had progressed beyond the line of demarcation. Patient was noted to have significant blisters and blackening of the areas. Critical care medicine change the regimen to Zosyn IV, vancomycin IV and added clindamycin IV and placed a surgical consult. Patient was evaluated by Dr. Thor Dumont of surgery and patient is being wheeled to the operating room shortly. At the time of my evaluation patient is in the ICU currently on high-dose Levophed as well as vasopressin with slight decrease in Levophed requirement after addition of clindamycin IV. Urine output is low. No diarrhea. No diffuse rash or skin changes other than as described. Overnight events reviewed with RN. Remains in ICU. Off Pressors. No fevers No rash No diarrhea remains intubated. Not much secretions. Moves extremities spontaneously. Antibiotics Zosyn IV Vanco IV Clindamycin IV Lines Line sites with no e.o infection Past Medical History Anxiety Depression Developmental delays - mental handicap Headaches/migraines Hypothyroidism GERD Chest pain Hx of UTIs Renal insufficiency Bladder incontinence Chronic back pain Thyroid surgery EGD - 08/30/16 Cholecystectomy - 03/04/15 D&C Hysterectomy Colonoscopy - 07/30/16 and 08/11/15 Allergies: Coded Allergies: No Known Allergies (Verified Allergy, Unknown, 07/22/17) Objective . Vital Signs Date Time Temp Pulse Resp B/P (MAP) Pulse Ox O2 Delivery O2 Flow Rate FiO2 07/27/17 08:19 100 35 07/27/17 08:19 35 07/27/17 06:00 77 07/27/17 04:11 100 35 07/27/17 04:00 97.9 81 10 127/72 (90) 100 116/63 (80) 07/27/17 04:00 81 07/27/17 04:00 35 07/27/17 02:00 81 07/27/17 00:19 100 35 07/27/17 00:00 98.0 83 122/75 (91) 100 123/66 (85) 07/27/17 00:00 83 07/27/17 00:00 83 122/75 (91) 123/66 (85) 07/27/17 00:00 35 07/26/17 22:00 75 07/26/17 20:04 100 35 07/26/17 20:00 97.6 75 91/56 (68) 100 91/50 (64) 07/26/17 20:00 75 07/26/17 20:00 35 07/26/17 18:19 76 106/62 (77) 125/68 (87) 07/26/17 18:00 86 07/26/17 16:04 100 35 07/26/17 16:00 97.5 79 8 139/82 (101) 100 141/74 (96) 07/26/17 16:00 35 07/26/17 16:00 79 07/26/17 14:00 77 07/26/17 12:00 97.5 74 0 107/62 (77) 100 104/56 (72) 07/26/17 12:00 35 07/26/17 12:00 74 07/27/17 07/27/17 07/28/17 15:00 23:00 07:00 Intake Total 50 ml Balance 50 ml IV Total 50 ml . Laboratory Tests Test 07/26/17 03:35 07/27/17 04:45 White Blood Count 27.7 TH/MM3 32.3 TH/MM3 Red Blood Count 2.99 MIL/MM3 3.08 MIL/MM3 Hemoglobin 8.1 GM/DL 8.2 GM/DL Hematocrit 24.4 % 25.2 % Mean Corpuscular Volume 81.8 FL 81.8 FL Mean Corpuscular Hemoglobin 27.2 PG 26.7 PG Mean Corpuscular Hemoglobin Concent 33.2 % 32.7 % Red Cell Distribution Width 15.0 % 14.9 % Platelet Count 145 TH/MM3 113 TH/MM3 Mean Platelet Volume 7.1 FL 7.2 FL Neutrophils (%) (Auto) 91.8 % Lymphocytes (%) (Auto) 5.2 % Monocytes (%) (Auto) 2.8 % Eosinophils (%) (Auto) 0.1 % Basophils (%) (Auto) 0.1 % Neutrophils # (Auto) 25.4 TH/MM3 Lymphocytes # (Auto) 1.4 TH/MM3 Monocytes # (Auto) 0.8 TH/MM3 Eosinophils # (Auto) 0.0 TH/MM3 Basophils # (Auto) 0.0 TH/MM3 CBC Comment AUTO DIFF AUTO DIFF Differential Comment AUTO DIFF CONFIRMED FINAL DIFF MANUAL Differential Total Cells Counted 100 Neutrophils % (Manual) 86 % Band Neutrophils % 6 % Lymphocytes % 4 % Monocytes % 4 % Neutrophils # (Manual) 29.7 TH/MM3 Platelet Estimate LOW Platelet Morphology Comment NORMAL Laboratory Tests Test 07/26/17 03:35 07/26/17 10:10 07/27/17 04:45 Blood Urea Nitrogen 61 MG/DL 67 MG/DL Creatinine 1.81 MG/DL 1.78 MG/DL Random Glucose 168 MG/DL 103 MG/DL Calcium Level 8.5 MG/DL 8.6 MG/DL Phosphorus Level 3.7 MG/DL Magnesium Level 1.7 MG/DL Sodium Level 132 MEQ/L 139 MEQ/L Potassium Level 4.0 MEQ/L 3.7 MEQ/L Chloride Level 100 MEQ/L 105 MEQ/L Carbon Dioxide Level 18.0 MEQ/L 22.5 MEQ/L Anion Gap 14 MEQ/L 12 MEQ/L Estimat Glomerular Filtration Rate 28 ML/MIN 29 ML/MIN Lactic Acid Level 1.8 mmol/L Microbiology Date/Time Source Procedure Growth Status 07/24/17 12:22 Wound Abdomen Fungal Smear - Final NO FUNGAL ELEMENTS SEEN. Resulted 07/24/17 12:22 Wound Abdomen Fungal Culture Pending Resulted 07/24/17 12:22 Wound Abdomen Acid Fast Stain - Final NO ACID FAST BACILLI SEEN Resulted 07/24/17 12:22 Wound Abdomen Mycobacterial Culture Pending Resulted 07/24/17 12:22 Wound Abdomen Gram Stain - Final Complete 07/24/17 12:22 Wound Culture - Final S. Aureus Mrsa Complete Imaging Last Impressions Chest X-Ray 07/24/17 0000 Signed Impressions: Service Date/Time: Monday, July 24, 2017 04:28 - CONCLUSION: 1. Endotracheal and nasogastric tubes appear to be appropriately positioned. Stable position of left subclavian central venous catheter. 2. Lungs remain clear. Jerome Brady MD Chest CT 07/24/17 0000 Signed Impressions: Service Date/Time: Monday, July 24, 2017 05:36 - CONCLUSION: 1. Stranding in the subcutaneous tissues about the right flank with fluid adjacent to the latissimus dorsi. Stranding extends up into the right breast. Findings could represent developing cellulitis. 2. In addition, there is now a small right-sided effusion with bilateral dependent atelectatic changes. Jerome Brady MD Abdomen/Pelvis CT 07/24/17 0000 Signed Impressions: Service Date/Time: Monday, July 24, 2017 05:36 - CONCLUSION: 1. CT findings concerning for a right sided cellulitis and developing myositis. There is some asymmetric prominence of the latissimus dorsi muscle on the right. Unorganized fluid in the deep subcutaneous tissues adjacent to the muscle belly. No drainable fluid collection, however. 2. Developing dependent areas of consolidation, right greater than left with an associated small right-sided effusion. Jerome Brady MD Head CT 07/22/17 1253 Signed Impressions: Service Date/Time: Saturday, July 22, 2017 13:26 - CONCLUSION: No acute disease. Derrick Henry MD Physical Exam GENERAL: Thin built, well-developed patient, in no apparent distress. SKIN: No generalized maculopapular rash. HEAD: Atraumatic. Normocephalic. No temporal or scalp tenderness. EYES: Pupils equal round and reactive. Extraocular motions intact. No scleral icterus. No injection or drainage. ENT: Intubated. NECK: Trachea midline. Supple, nontender, no meningeal signs. CARDIOVASCULAR: Heart sounds audible. No murmur appreciated. RESPIRATORY: Clear to auscultation. Breath sounds equal bilaterally. No wheezes , rales, or rhonchi. GASTROINTESTINAL: Abdomen soft.Wound vac area noted. Extensive area needing wound vac. Skin discoloration extending into right breast outer quadrants. MUSCULOSKELETAL: Extremities without clubbing, cyanosis, or edema. Bluish discoloration and cold toes on right foot. No joint tenderness, effusion, or edema noted. No calf tenderness. Negative Homans sign bilaterally. NEUROLOGICAL: Sedated. Psych could not be assessed IV line sites with no e.o infection Assessment & Plan Remarks Septic shock with multiorgan dysfunction syndrome Sepsis present on admission Necrotizing fasciitis of the abdominal wall ? History of multiple falls likely the precipitant. Acute rhabdomyolysis Acute renal failure: Prerenal, sepsis, rhabdomyolysis Acute metabolic encephalopathy likely sepsis related. Baseline unknown Leukemoid reaction likely due to worsening sepsis Recommendations: Continue Zosyn IV Continue vancomycin IV(target for sepsis) Continue clindamycin IV Intra-Op findings from note reviewed. Unsure of the exact precipitant being trauma versus this being of other etiology such as an epidural abscess. We will follow along to determine etiology Consult palliative care to address goals of care, living situation, caregiver and other such social factors that may have lead to this admission. Follow cultures Follow clinically Patient critically ill. Critical thinking decision-making. Discussed with RN Discussed with critical care medicine Ellen Parks MD July 27, 2017 11:07
--- NOTE | 2017-07-27 11:11 | RADRPT ---
EXAM DATE/TIME: 07/27/2017 10:25 [facility] COMPARISON: CT THORAX W/O CONTRAST, July 24, 2017, 5:36. CT ABDOMEN & PELVIS W/O CONTRAST, July 24, 2017, 5:36 . CHEST SINGLE AP, July 24, 2017, 4:28. INDICATIONS : Short of breath, respiratory failure MEDICAL HISTORY : Hypertension. Diabetes mellitus type II. SURGICAL HISTORY : Hysterectomy. ENCOUNTER: Subsequent ACUITY: 4 - 6 days PAIN SCORE: Non-responsive. LOCATION: Bilateral chest FINDINGS: Stable ETT, left subclavian catheter and NGT. Mild bibasilar airspace disease and trace right pleural effusion. Cardiomediastinal contours are within normal limits. Bony thorax is intact. CONCLUSION: 1. Stable tubes and lines. 2. Stable mild bibasilar airspace disease and trace right pleural effusion. Bob Daly MD on July 27, 2017 at 11:07 Board Certified Radiologist. This report was verified electronically.
[2017-07-27] MEDS ORDERED: DEXAMETHASONE SOD PHOS 4 MG/ML VIAL IV ONE (12:00)
[2017-07-27] MEDS ORDERED: ONDANSETRON HCL 4 MG/2 ML VIAL IV ONE (12:00)
[2017-07-27] MEDS ORDERED: ROCURONIUM INJ 50 MG/5 ML SYRINGE IV PUSH ONE (12:00)
[2017-07-27] MEDS ORDERED: ePHEDrine/NS 25 MG/5 ML SYRINGE IV ONE (12:00)
[2017-07-27] MEDS ORDERED: PHENYLEPH/NS 1000 MCG/10 ML SYR IV ONE (12:00)
--- NOTE | 2017-07-27 12:12 | HHI.NPPN ---
Subjective Renal Failure: Acute Interval History She remains intubated, sedated. To go back to OR this afternoon. Renal function is improving. (Adri Osorio) Review of Systems General General Remarks unable to obtain (Adri Osorio) Objective Data Data 07/27/17 07/28/17 19:00 07:00 Intake Total 50 ml Balance 50 ml IV Total 50 ml Vital Signs Date Time Temp Pulse Resp B/P (MAP) Pulse Ox O2 Delivery O2 Flow Rate FiO2 07/27/17 11:23 100 35 07/27/17 08:19 100 35 07/27/17 08:19 35 07/27/17 06:00 77 07/27/17 04:11 100 35 07/27/17 04:00 97.9 81 10 127/72 (90) 100 116/63 (80) 07/27/17 04:00 81 07/27/17 04:00 35 07/27/17 02:00 81 07/27/17 00:19 100 35 07/27/17 00:00 98.0 83 122/75 (91) 100 123/66 (85) 07/27/17 00:00 83 07/27/17 00:00 83 122/75 (91) 123/66 (85) 07/27/17 00:00 35 07/26/17 22:00 75 07/26/17 20:04 100 35 07/26/17 20:00 97.6 75 91/56 (68) 100 91/50 (64) 07/26/17 20:00 75 07/26/17 20:00 35 07/26/17 18:19 76 106/62 (77) 125/68 (87) 07/26/17 18:00 86 07/26/17 16:04 100 35 07/26/17 16:00 97.5 79 8 139/82 (101) 100 141/74 (96) 07/26/17 16:00 35 07/26/17 16:00 79 07/26/17 14:00 77 (Adri Osorio) -: 07/27/17 0445 07/27/17 0445 Imaging Last 72 hours Impressions Chest X-Ray 07/27/17 0000 Signed Impressions: Service Date/Time: July 10:25 - CONCLUSION: 1. Stable tubes and lines. 2. Stable mild bibasilar airspace disease and trace right pleural effusion. Bob Daly MD Tubes & Lines: Scales Tubes & Lines Comment wound vac x 2 Drip Comment propofol (Adri Osorio) Physical Exam General Appearance: Well Nourished, Comfortable Appearance Remarks intubated, sedated on vent (Adri Osorio) Throat Throat Exam: Oral Mucosa [place] & Moist (Adri Osorio) Pulmonary Resp Exam: Clear Bilaterally, Breath Sounds Equal (Adri Osorio) Cardiology CV Exam: Regular, Good Perfusion (Adri Osorio) Gastrointestinal/Abdomen GI Exam: Soft, Non-Tender, Bowel Sounds Present (Adri Osorio) Musculoskeletal MS Exam: Joints Intact, Normal Tone, Unable to Ambulate (Adri Osorio) Integumentary Skin Exam: Warm, Dry Skin Remarks large area on right flank and anterior chest s/p I&D. Wound vac in place. Some bruising around border Skin on Back has began o exhibit the same changes (Adri Osorio) Extremeties Extremities Exam: Pedal Pulses Palpable, Trace Edema Extremeties Remarks right foot ischemia (Adri Osorio) Neurologic Neuro Exam: Unresponsive, Sedated (Adri Osorio) Assessment/Plan Assessment Summary: SHARONA/Acute Renal Failure Electrolyte Assessment: Hyponatremia Problem List: (1) Acute kidney injury ICD Codes: N17.9 - Acute kidney failure, unspecified Status: Acute Plan: Normal renal function at baseline SHARONA due to sepsis and resulting renal hypoperfusion Renal function improved slightly She is making urine, has a scales catheter Continue lasix 40 mg IV daily. Follow renal function daily Continue supportive care Minimize nephrotoxic agents, dose appropriate to renal function (2) Severe sepsis ICD Codes: A41.9 - Sepsis, unspecified organism; R65.20 - Severe sepsis without septic shock Status: Acute Plan: Necrotizing cellulitis, s/p I&D by surgery Reportedly will go back to OR today Antibiotics include Zosyn and Clindamycin, also vancomycin, continue cautiously , follow drug levels Cultures MRSA (wound) Specimen sent to pathology: cellulitis and multifocal abscess formation (3) Hypotension ICD Codes: I95.9 - Hypotension, unspecified Status: Resolved Plan: Improved, monitor blood pressure (4) A-fib ICD Codes: I48.91 - Unspecified atrial fibrillation Plan: Off amiodarone, rhythm is regular (Adri Osorio) Plan Patient was seen and examined on 07/27/17. Agree with above assessment and plan. (Jony Robert MD) Problem Qualifiers (1) Hypotension: Qualified Codes: I95.9 - Hypotension, unspecified Adri Osorio July 27, 2017 12:12 Jony Robert MD July 28, 2017 15:32
--- NOTE | 2017-07-27 13:45 | HHI.HCPN ---
Reason for visit a. To assist with evaluation and management of symptoms including: pain, dyspnea. b. To assist medical decision maker(s) with: better understanding of current medical conditions; weighing benefits/burdens of medical treatment options; making medical treatment decisions. Subjective/Interval History Pt remains intubated, more alert open eyes. white count increase today. . Renal function is improving. Pt schedule to OR this afternoon for wound vac exchange. Pt unable to verbalize. She remains on fentanyl for pain. Intubated for dyspnea. Family/friend interactions Pt's guardian is suppose to come this afternoon, but I have been notified he could not make it. We are still awaiting for his guardian papers. Advance Directives Durable Power of Health Diagnostics Teacher: Completed, but not made available Objective Vital Signs Date Time Temp Pulse Resp B/P (MAP) Pulse Ox O2 Delivery O2 Flow Rate FiO2 07/27/17 11:23 100 35 07/27/17 08:19 100 35 07/27/17 08:19 35 07/27/17 06:00 77 07/27/17 04:11 100 35 07/27/17 04:00 97.9 81 10 127/72 (90) 100 116/63 (80) 07/27/17 04:00 81 07/27/17 04:00 35 07/27/17 02:00 81 07/27/17 00:19 100 35 07/27/17 00:00 98.0 83 122/75 (91) 100 123/66 (85) 07/27/17 00:00 83 07/27/17 00:00 83 122/75 (91) 123/66 (85) 07/27/17 00:00 35 07/26/17 22:00 75 07/26/17 20:04 100 35 07/26/17 20:00 97.6 75 91/56 (68) 100 91/50 (64) 07/26/17 20:00 75 07/26/17 20:00 35 07/26/17 18:19 76 106/62 (77) 125/68 (87) 07/26/17 18:00 86 07/26/17 16:04 100 35 07/26/17 16:00 97.5 79 8 139/82 (101) 100 141/74 (96) 07/26/17 16:00 35 07/26/17 16:00 79 07/26/17 14:00 77 Intake & Output 07/27/17 07/27/17 07:00 19:00 Intake Total 538 ml 50 ml Output Total 2000 ml Balance -1462 ml 50 ml IV Total 350 ml 50 ml Tube Feeding 138 ml Tube Irrigant 50 ml Output Urine Total 1000 ml Drainage Total 1000 ml # Bowel Movements 0 Physical Exam CONSTITUTIONAL/GENERAL: This is an adequately nourished patient, in no apparent distress. TUBES/LINES/DRAINS: Wound vac, PIV, ET tube, scales. SKIN: Right sided wound s/p debridment with wound vac from right thigh all the way up torso to below axillary area. HEAD: Atraumatic. Normocephalic. EYES: Closed. Extraocular motions intact. No scleral icterus. No injection or drainage. Fundi not examined. ENT: . Nose without bleeding or purulent drainage. ET tube in placed NECK: Trachea midline. Supple, nontender. No palpable thyroid enlargement or nodularity. CARDIOVASCULAR: Regular rate and rhythm without murmurs, gallops, or rubs. No JVD. Peripheral pulses symmetric. RESPIRATORY/CHEST: Symmetric, unlabored respirations. Clear to auscultation. Breath sounds equal bilaterally. No wheezes, rales, or rhonchi. GASTROINTESTINAL: Abdomen soft, non-tender, nondistended. No hepato-splenomegaly , or palpable masses. No guarding. Bowel sounds present. GENITOURINARY: Without palpable bladder distension. Scales catheter in place. MUSCULOSKELETAL: Extremities without clubbing, cyanosis, or edema. LYMPHATICS: No palpable cervical or supraclavicular adenopathy. NEUROLOGICAL: Intubated and sedated Moves all extremities. PSYCHIATRIC: Unable to examine Diagnostic Tests Laboratory Laboratory Tests Test 07/24/17 15:45 07/24/17 18:00 07/25/17 01:00 07/25/17 05:00 Total Creatine Kinase 788 U/L (26-192) 357 U/L (26-192) 274 U/L (26-192) Creatine Kinase MB 13.0 NG/ML (0.5-3.6) 7.9 NG/ML (0.5-3.6) 6.3 NG/ML (0.5-3.6) Creatine Kinase MB % 1.6 % (0.0-4.0) 2.2 % (0.0-4.0) 2.3 % (0.0-4.0) Troponin I 0.11 NG/ML (0.02-0.05) 0.07 NG/ML (0.02-0.05) Urine Total Volume 24 Hours 500 ML Urine Total Protein 24 Hour 600 MG/24HR (0-150) Urine Protein Electrophoresis Intrp COMMENT Phosphorus Level 2.6 MG/DL (2.5-4.9) Magnesium Level 1.2 MG/DL (1.5-2.5) White Blood Count 30.4 TH/MM3 (4.0-11.0) Red Blood Count 3.28 MIL/MM3 (4.00-5.30) Hemoglobin 8.9 GM/DL (11.6-15.3) Hematocrit 27.0 % (35.0-46.0) Mean Corpuscular Volume 82.3 FL (80.0-100.0) Mean Corpuscular Hemoglobin 27.0 PG (27.0-34.0) Mean Corpuscular Hemoglobin Concent 32.8 % (32.0-36.0) Red Cell Distribution Width 15.3 % (11.6-17.2) Platelet Count 190 TH/MM3 (150-450) Mean Platelet Volume 6.7 FL (7.0-11.0) CBC Comment AUTO DIFF Differential Total Cells Counted 100 Neutrophils % (Manual) 64 % (16-70) Band Neutrophils % 32 % (0-6) Lymphocytes % 1 % (9-44) Monocytes % 2 % (0-8) Neutrophils # (Manual) 29.5 TH/MM3 (1.8-7.7) Metamyelocytes 1 % (0-1) Nucleated Red Blood Cells 2 /100 WBC (0-0) Differential Comment FINAL DIFF MANUAL Toxic Granulation 1+ (NORMAL) Toxic Vacuolation PRESENT (NONE SEEN) Platelet Estimate NORMAL (NORMAL) Platelet Morphology Comment NORMAL (NORMAL) Prothrombin Time 16.3 SEC (9.8-11.6) Prothromb Time International Ratio 1.6 RATIO Blood Urea Nitrogen 52 MG/DL (7-18) Creatinine 1.93 MG/DL (0.50-1.00) Random Glucose 214 MG/DL (74-106) Total Protein 4.1 GM/DL (6.4-8.2) Albumin 1.1 GM/DL (3.4-5.0) Calcium Level 7.8 MG/DL (8.5-10.1) Alkaline Phosphatase 112 U/L (45-117) Aspartate Amino Transf (AST/SGOT) 38 U/L (15-37) Alanine Aminotransferase (ALT/SGPT) 32 U/L (10-53) Total Bilirubin 0.9 MG/DL (0.2-1.0) Sodium Level 131 MEQ/L (136-145) Potassium Level 4.5 MEQ/L (3.5-5.1) Chloride Level 101 MEQ/L (98-107) Carbon Dioxide Level 18.2 MEQ/L (21.0-32.0) Anion Gap 12 MEQ/L (5-15) Estimat Glomerular Filtration Rate 26 ML/MIN (>89) Random Vancomycin Level 19.1 COMMENT Test 07/25/17 09:20 07/26/17 03:35 07/26/17 10:10 07/26/17 13:40 Lactic Acid Level 4.6 mmol/L (0.4-2.0) 1.8 mmol/L (0.4-2.0) Phosphorus Level 3.3 MG/DL (2.5-4.9) 3.7 MG/DL (2.5-4.9) Magnesium Level 1.3 MG/DL (1.5-2.5) 1.7 MG/DL (1.5-2.5) White Blood Count 27.7 TH/MM3 (4.0-11.0) Red Blood Count 2.99 MIL/MM3 (4.00-5.30) Hemoglobin 8.1 GM/DL (11.6-15.3) Hematocrit 24.4 % (35.0-46.0) Mean Corpuscular Volume 81.8 FL (80.0-100.0) Mean Corpuscular Hemoglobin 27.2 PG (27.0-34.0) Mean Corpuscular Hemoglobin Concent 33.2 % (32.0-36.0) Red Cell Distribution Width 15.0 % (11.6-17.2) Platelet Count 145 TH/MM3 (150-450) Mean Platelet Volume 7.1 FL (7.0-11.0) Neutrophils (%) (Auto) 91.8 % (16.0-70.0) Lymphocytes (%) (Auto) 5.2 % (9.0-44.0) Monocytes (%) (Auto) 2.8 % (0.0-8.0) Eosinophils (%) (Auto) 0.1 % (0.0-4.0) Basophils (%) (Auto) 0.1 % (0.0-2.0) Neutrophils # (Auto) 25.4 TH/MM3 (1.8-7.7) Lymphocytes # (Auto) 1.4 TH/MM3 (1.0-4.8) Monocytes # (Auto) 0.8 TH/MM3 (0-0.9) Eosinophils # (Auto) 0.0 TH/MM3 (0-0.4) Basophils # (Auto) 0.0 TH/MM3 (0-0.2) CBC Comment AUTO DIFF Differential Comment AUTO DIFF CONFIRMED Blood Urea Nitrogen 61 MG/DL (7-18) Creatinine 1.81 MG/DL (0.50-1.00) Random Glucose 168 MG/DL (74-106) Calcium Level 8.5 MG/DL (8.5-10.1) Sodium Level 132 MEQ/L (136-145) Potassium Level 4.0 MEQ/L (3.5-5.1) Chloride Level 100 MEQ/L (98-107) Carbon Dioxide Level 18.0 MEQ/L (21.0-32.0) Anion Gap 14 MEQ/L (5-15) Estimat Glomerular Filtration Rate 28 ML/MIN (>89) Blood Gas Puncture Site ART LINE Blood Gas Patient Temperature 98.6 Blood Gas HCO3 20 mmol/L (22-26) Blood Gas Base Excess -2.8 mmol/L (-2-2) Blood Gas Oxygen Saturation 95 % (90-100) Arterial Blood pH 7.54 (7.380-7.420) Arterial Blood Partial Pressure CO2 23 mmHg (38-42) Arterial Blood Partial Pressure O2 139 mmHg (61-120) Arterial Blood Oxygen Content 13.2 Vol % (12.0-20.0) Arterial Blood Carboxyhemoglobin 0.1 % (0-4) Arterial Blood Methemoglobin 2.4 % (0-2) Blood Gas Hemoglobin 9.7 G/DL (12.0-16.0) Oxygen Delivery Device VENTILATOR Blood Gas Ventilator Setting Blood Gas Inspired Oxygen 35 % Test 07/27/17 04:45 07/27/17 12:30 White Blood Count 32.3 TH/MM3 (4.0-11.0) Red Blood Count 3.08 MIL/MM3 (4.00-5.30) Hemoglobin 8.2 GM/DL (11.6-15.3) Hematocrit 25.2 % (35.0-46.0) Mean Corpuscular Volume 81.8 FL (80.0-100.0) Mean Corpuscular Hemoglobin 26.7 PG (27.0-34.0) Mean Corpuscular Hemoglobin Concent 32.7 % (32.0-36.0) Red Cell Distribution Width 14.9 % (11.6-17.2) Platelet Count 113 TH/MM3 (150-450) Mean Platelet Volume 7.2 FL (7.0-11.0) CBC Comment AUTO DIFF Differential Total Cells Counted 100 Neutrophils % (Manual) 86 % (16-70) Band Neutrophils % 6 % (0-6) Lymphocytes % 4 % (9-44) Monocytes % 4 % (0-8) Neutrophils # (Manual) 29.7 TH/MM3 (1.8-7.7) Differential Comment FINAL DIFF MANUAL Platelet Estimate LOW (NORMAL) Platelet Morphology Comment NORMAL (NORMAL) Blood Urea Nitrogen 67 MG/DL (7-18) Creatinine 1.78 MG/DL (0.50-1.00) Random Glucose 103 MG/DL (74-106) Calcium Level 8.6 MG/DL (8.5-10.1) Sodium Level 139 MEQ/L (136-145) Potassium Level 3.7 MEQ/L (3.5-5.1) Chloride Level 105 MEQ/L (98-107) Carbon Dioxide Level 22.5 MEQ/L (21.0-32.0) Anion Gap 12 MEQ/L (5-15) Estimat Glomerular Filtration Rate 29 ML/MIN (>89) Random Vancomycin Level 18.4 COMMENT Blood Gas Puncture Site ART LINE Blood Gas Patient Temperature 98.6 Blood Gas HCO3 21 mmol/L (22-26) Blood Gas Base Excess -3.5 mmol/L (-2-2) Blood Gas Oxygen Saturation 95 % (90-100) Arterial Blood pH 7.38 (7.380-7.420) Arterial Blood Partial Pressure CO2 36 mmHg (38-42) Arterial Blood Partial Pressure O2 153 mmHg (61-120) Arterial Blood Oxygen Content 12.5 Vol % (12.0-20.0) Arterial Blood Carboxyhemoglobin 0.0 % (0-4) Arterial Blood Methemoglobin 2.5 % (0-2) Blood Gas Hemoglobin 9.1 G/DL (12.0-16.0) Oxygen Delivery Device VENTILATOR Blood Gas Ventilator Setting CPAP/PEEP5/PS10 Blood Gas Inspired Oxygen 35 % Result Diagram: 07/27/1744407/27/17444 Assessment and Plan Disease Oriented Problem List: (1) Severe sepsis (2) Abdominal wall cellulitis Comment: required debridement of necrotizing tissue. (3) Acute kidney injury (4) DM (diabetes mellitus) Symptom Scale: (1) Dyspnea 0-10 Scale: Unable to quantify (2) Pain 0-10 Scale: Unable to quantify Pertinent Non-Medical Issues Psychosocial:developmental delay Spiritual: unknown Legal: await paper work guardian/poa of Mr. Nagy. Ethical issues impacting care:none Important Contacts Felipe Nagy reported POA. [phone] Prognosis 62 year old female with severe sepsis, due to large right sided necrotizing wound + for MRSA. Spoke with high school social studies tutor, currently pressor need is being titrated down, and kidney function is improving. Prognosis is guarded. Pt's developmental delays may hinder pt's ability to convalescence. Code Status: Full Code Plan ==code: Full == capacity- pt currently has not capacity to make medical decision. Has hx of developemental delay, and has a guardian. == POA/guardian- reportedly Mr. Felipe Nagy, I have asked Mr. Nagy to bring in guardian paperwork tomorrow. He states he will be in in the afternoon.. ==Goals of treatment.- Guardian. He remains very hopeful, but understand the tremendous challenges up ahead for patient. Goals of treatment remains aggressive. "Do whatever you need to do." She is a Full Code. Guardian is does not have a decision on peg or trach if it does get to that point. Symptoms. == dyspnea- currently intubated. continue vent management per critical medicine pain- s/p surgery, extensive right sided wound/ general debility. No evidence of pain on my visit, and fentanyl appears to be effective. Continue fentanyl for now. PRN morphine available == palliative care will continue to follow. Attestation To help prompt me to consider important information that might be impacting today's encounter and assessment, information from prior notes written by myself or my colleagues may have been "brought forward" into today's note. My signature on this note, however, is an attestation that I personally performed the exam, history, and/or decision-making noted today, and, unless otherwise indicated, the interactions with patient, family, and staff as well as the review of records all occurred today. I also attest that the listed assessment and stated plan reflect my best clinical judgment today based on the combination of historical information, prior notes, and today's exam/ interactions. When time spent is documented, it refers only to time spent today by the signer, or if indicated, combined time spent today by collaborating physician/nurse practitioner. Keshawn Baez MD July 27, 2017 13:45
[2017-07-27] MEDS ORDERED: SODIUM BICARBONATE 8.4% INJ 0 ML ONE (13:57)
[2017-07-27] MEDS ORDERED: LIDOCAINE 1%/EPINEPHrine 1:100,000 SOLN 30 ML VIAL ONE (13:57)
[2017-07-27] MEDS ORDERED: NEOMYCIN/POLYMYXIN 1 ML G.U. IRRIGANT ONE (13:58)
--- NOTE | 2017-07-27 14:39 | HHI.PR ---
Immediate Post Op Note Procedure Date: July 27, 2017 Pre Op Diagnosis: necrotizing soft tissue infection with abscess of abdomen Post Op Diagnosis: same Surgeon: Tip Dumont MD Slat Basket Maker(s): see or sheet Procedure: excisional debridement with vac change of torso and abdomen Findings: soft tissue infection Complications: none Specimen(s) removed: none Anesthesia: General Drains: Hemovac Patient to: PACU Patient Condition: Good Tip Dumont MD July 27, 2017 14:39
[2017-07-27] MEDS ORDERED: VANCOMYCIN INJ 1,500 MG in SODIUM CHLORID 0.9% 500 ML INJ 500 ML IV ONE (17:00)
--- NOTE | 2017-07-27 20:30 | MP ---
cc: Tip Dumont MD, Lars S MD DATE OF OPERATION: 07/27/2017 PREOPERATIVE DIAGNOSIS: Necrotizing soft tissue infection with abscess to abdomen and torso. POSTOPERATIVE DIAGNOSIS: Necrotizing soft tissue infection with abscess to abdomen and torso. PROCEDURE PERFORMED: Wide excisional debridement with excisional debridement of necrotizing soft tissue infection with VAC change, total area a 48 x 30 cm x 2 cm deep. SURGEON: Dr. Tip Dumont. BARK TANNER: Yanely ANESTHESIA: GETA. IV FLUIDS: See anesthesia sheet. ESTIMATED BLOOD LOSS: 50 mL DRAINS: Hemovac placed. COMPLICATIONS: None. WOUND CLASSIFICATION: Infected dirty. INDICATIONS: The patient is a 62-year-old female who presented with a right-sided torso soft tissue infection. The patient underwent initial wide excisional debridement. The patient is taken back for repeat debridement with VAC change. DETAILS OF PROCEDURE: The patient was taken to the operating suite, placed in left lateral decubitus position. She was prepped and draped in the usual sterile fashion. The VAC was removed. Hbeer were removed. There were noted to be some necrotic areas of fascia as well as further demarcation of necrotic tissue on the periphery of the wound. Further extension down across the mid back was done along with inferior extension with removal of excess tissue anterior and superior as well. Excision was done to a more viable bleeding healthier tissue. Further debridements of the fascia of the wound. Hemostasis was obtained with electro Bovie electrocautery. Pulse lavage done with 3 liters of saline to fully irrigate and debride further. The wound VAC was obtained. Again, dimensions being 30 x 48 cm and 2 cm deep. This was cut to the size of the wound and set in place with heber. The plastic dressing was then placed and track pads x2 were placed with connection of a Y connector. The patient tolerated the procedure. No intraoperative complications. All lap and instrument counts were correct at the end of the procedure. The patient remained intubated, critical and transferred to the ICU. MD SHARON Kowalski/ , 08:12 PM , 08:28 PM
[2017-07-28] VITALS (21 sets, daily range): BP systolic 112–160; BP diastolic 58–101; PULSE 70–88; RESP 13–20; TEMP 97–97.9; O2SAT 98–100
[2017-07-28] MEDS: fentaNYL DRIP 250 ML IV PRN ×3 (00:11→22:34)
[2017-07-28] MEDS: INSULIN NovoLIN REGULAR SUPPLEMENTAL SCALE SQ SCH ×6 (00:45→20:00)
[2017-07-28] MEDS: PIPERACIL-TAZO 3.375 GM PREMIX 50 ML IV SCH ×3 (00:54→17:33)
[2017-07-28] MEDS: HYDROCORTISONE SOD SUCCINATE 100 MG VIAL IV PUSH SCH ×3 (00:54→22:28)
[2017-07-28] MEDS: CLINDAMYCIN 600 MG/NS PREMIX 50 ML IV SCH ×4 (04:31→22:28)
[2017-07-28 04:49] LABS: AUTOMATED NEUTROPHIL # 27.1 TH/MM3 (1.8-7.7); BASOPHIL % 0.1 % (0.0-2.0); HEMATOCRIT 25.2 % (35.0-46.0); HEMOGLOBIN 8.1 GM/DL (11.6-15.3); LYMPH % 3.1 % (9.0-44.0); LYMPHOCYTE # 0.9 TH/MM3 (1.0-4.8); MEAN CORPUSCULAR HEMOGLOBIN 26.3 PG (27.0-34.0); MEAN CORPUSCULAR HGB CONC 32.1 % (32.0-36.0); MEAN PLATELET VOLUME 7.7 FL (7.0-11.0); MONOCYTE # 1.2 TH/MM3 (0-0.9); NEUT % 92.8 % (16.0-70.0); PLATELET COUNT 114 TH/MM3 (150-450); RED BLOOD COUNT 3.08 MIL/MM3 (4.00-5.30); RED CELL DISTRIBUTION WIDTH 14.9 % (11.6-17.2); WHITE BLOOD COUNT 29.2 TH/MM3 (4.0-11.0)
[2017-07-28 05:22] LABS: BICARBONATE 25.9 MEQ/L (21.0-32.0); CREATININE 1.5 MG/DL (0.50-1.00); MAGNESIUM 1.8 MG/DL (1.5-2.5); PHOSPHORUS 4.9 MG/DL (2.5-4.9)
[2017-07-28 05:27] LABS: OVALOCYTES 1+ (NORMAL)
[2017-07-28] MEDS: CHLORHEXIDINE 0.12% (ORAL KIT) 15 ML CUP MT SCH ×2 (08:57→22:34)
[2017-07-28] MEDS: FUROSEMIDE 40 MG/4 ML VIAL IV PUSH SCH (08:58)
[2017-07-28] MEDS: MULTIVITAMIN-OPHTHALMIC 1 TAB PO SCH (08:59)
[2017-07-28] MEDS: BUDESONIDE 9 MG PO SCH (09:00)
[2017-07-28] MEDS ORDERED: MAGNESIUM SULFATE INJ 2 GM in SODIUM CHLORIDE 0.9% INJ 96 ML IV PRN (09:00)
[2017-07-28] MEDS: FAMOTIDINE 20 MG TAB PO SCH ×2 (09:00→22:28)
[2017-07-28] MEDS ORDERED: MAGNESIUM SULFATE INJ 4 GM in SODIUM CHLORIDE 0.9% INJ 92 ML IV PRN (09:00)
[2017-07-28] MEDS ORDERED: POTASSIUM CHLOR 40 MEQ PREMIX 100 ML IV PRN (09:00)
[2017-07-28] MEDS: DOCUSATE SODIUM 50 MG/SENNA 8.6 MG TAB PO SCH ×2 (09:00→22:28)
[2017-07-28] MEDS ORDERED: POTASSIUM CHLOR 20 MEQ PREMIX 100 ML IV PRN (09:00)
[2017-07-28] MEDS ORDERED: SODIUM PHOSPHATE INJ 30 MMOL in SODIUM CHLOR 0.9% 250 ML INJ 240 ML IV PRN (09:00)
[2017-07-28] MEDS ORDERED: POTASSIUM PHOSPHATE MONOBASIC 500 MG TAB PO/TUBE PRN (09:00)
[2017-07-28] MEDS ORDERED: MAGNESIUM OXIDE 400 MG TAB PO PRN (09:00)
--- NOTE | 2017-07-28 09:01 | HHI.CCPN ---
Subjective Remarks/Hospital Course This is a 62-year-old female with a history of developmental delay and recurrent urinary tract infections who presents with new onset right-sided abdominal and flank pain. Per the [facility] service admission note this is been going on for approximately 4 weeks. Patient has a history of developmental delay and is difficult to get a complete history from her, no analysis with her on my evaluation. On my evaluation she endorses flank pain radiating around to her chest. She endorses subjective chills. Denies recent fevers to me. Also endorses nausea, vomiting. In the emergency department she was found to have significant erythema, rubor, dolor, and edema from approximately the fifth intercostal space down to the eighth or ninth intercostal space wrapping around from the midline in the back all the way around to just medial to the breast. CT scan of the abdomen and pelvis confirms significant subcutaneous edema, but this area of edema appears to be contained by intact fascial planes, particularly in the midline of the back. Laboratory evidence is significant for a white blood cell count of 27k, creatinine is 3.58, potassium 5.4, bicarb of 17.9, anion gap elevated at 15, BUN of 64, an initial lactate of 5.1. In the emergency department she received 3 L of crystalloid IV fluids. Despite this she is hypotensive with a mean arterial pressure of 51. Critical care medicine is consulted to evaluate manage her presumed septic shock secondary to severe cellulitis of the trunk. I have given her an additional liter of crystalloid and then placed central venous access, see separate procedure note for details. In addition her lactate is starting to clear and is now 2.9 with an more currently pending, however it is not clearing fast enough and she remains oliguric. I placed a Terrazas for accurate hourly I's and O's. The remainder of the review systems for the patient is negative except documented in the HPI, although this is severely limited by her baseline developmental delay. Subjective 07/23: Patient remains on vasopressors, noted metabolic acidosis, bicarbonate level of 15. Sodium bicarbonate infusion initiated. 07/24 Patient was intubated early this morning now on Vasopressin and Neosyn 300 mics in addition patient is on Amio and Bicarb drips. WBC increased 31. CT abd/pelvis showed right sided cellulites and developing myositis. 07/25 Patient went to OR yesterday s/p wide excisional debridement of soft tissue infection with VAC placement for necrotizing soft tissue infection of abdomen, right hip area right torso area measuring approximately 32 x 18 inches x 2 inches deep. She remains on Vasopressin 0.04 and Neosyn down to 120 mics. On Amio drip. 07/26 No events overnight. Off all pressors, WBC is trending down. On Amio drip. 07/27 Patient remains intubated for return to OR today and wound vac exchange. 07/28 Patient s/p excisional debridement with vac change yesterday intubated and sedated with Fentanyl infusion. Objective Vital Signs Date Time Temp Pulse Resp B/P (MAP) Pulse Ox O2 Delivery O2 Flow Rate FiO2 07/28/17 08:08 35 07/28/17 08:05 100 07/28/17 07:00 86 143/72 (95) 148/74 (98) 07/28/17 04:00 97.8 07/27/17 16:00 16 Intake and Output 07/28/17 07/28/17 07/29/17 08:00 16:00 00:00 Intake Total 665 ml Output Total 1400 ml Balance -735 ml Result Diagram: 07/28/17 0411 07/28/17 0411 Other Results Laboratory Tests Test 07/27/17 12:30 07/28/17 04:11 Blood Gas Puncture Site ART LINE Blood Gas Patient Temperature 98.6 Blood Gas HCO3 21 mmol/L Blood Gas Base Excess -3.5 mmol/L Blood Gas Oxygen Saturation 95 % Arterial Blood pH 7.38 Arterial Blood Partial Pressure CO2 36 mmHg Arterial Blood Partial Pressure O2 153 mmHg Arterial Blood Oxygen Content 12.5 Vol % Arterial Blood Carboxyhemoglobin 0.0 % Arterial Blood Methemoglobin 2.5 % Blood Gas Hemoglobin 9.1 G/DL Oxygen Delivery Device VENTILATOR Blood Gas Ventilator Setting CPAP/PEEP5/PS10 Blood Gas Inspired Oxygen 35 % White Blood Count 29.2 TH/MM3 Red Blood Count 3.08 MIL/MM3 Hemoglobin 8.1 GM/DL Hematocrit 25.2 % Mean Corpuscular Volume 82.0 FL Mean Corpuscular Hemoglobin 26.3 PG Mean Corpuscular Hemoglobin Concent 32.1 % Red Cell Distribution Width 14.9 % Platelet Count 114 TH/MM3 Mean Platelet Volume 7.7 FL Neutrophils (%) (Auto) 92.8 % Lymphocytes (%) (Auto) 3.1 % Monocytes (%) (Auto) 4.0 % Eosinophils (%) (Auto) 0.0 % Basophils (%) (Auto) 0.1 % Neutrophils # (Auto) 27.1 TH/MM3 Lymphocytes # (Auto) 0.9 TH/MM3 Monocytes # (Auto) 1.2 TH/MM3 Eosinophils # (Auto) 0.0 TH/MM3 Basophils # (Auto) 0.0 TH/MM3 CBC Comment AUTO DIFF Differential Comment AUTO DIFF CONFIRMED Ovalocytes 1+ Blood Urea Nitrogen 63 MG/DL Creatinine 1.50 MG/DL Random Glucose 110 MG/DL Calcium Level 9.0 MG/DL Phosphorus Level 4.9 MG/DL Magnesium Level 1.8 MG/DL Sodium Level 150 MEQ/L Potassium Level 3.1 MEQ/L Chloride Level 112 MEQ/L Carbon Dioxide Level 25.9 MEQ/L Anion Gap 12 MEQ/L Estimat Glomerular Filtration Rate 35 ML/MIN Imaging Last Impressions Chest X-Ray 07/27/17 0000 Signed Impressions: Service Date/Time: July 10:25 - CONCLUSION: 1. Stable tubes and lines. 2. Stable mild bibasilar airspace disease and trace right pleural effusion. Bob Daly MD Chest CT 07/24/17 0000 Signed Impressions: Service Date/Time: Monday, July 24, 2017 05:36 - CONCLUSION: 1. Stranding in the subcutaneous tissues about the right flank with fluid adjacent to the latissimus dorsi. Stranding extends up into the right breast. Findings could represent developing cellulitis. 2. In addition, there is now a small right-sided effusion with bilateral dependent atelectatic changes. Jerome Brady MD Abdomen/Pelvis CT 07/24/17 0000 Signed Impressions: Service Date/Time: Monday, July 24, 2017 05:36 - CONCLUSION: 1. CT findings concerning for a right sided cellulitis and developing myositis. There is some asymmetric prominence of the latissimus dorsi muscle on the right. Unorganized fluid in the deep subcutaneous tissues adjacent to the muscle belly. No drainable fluid collection, however. 2. Developing dependent areas of consolidation, right greater than left with an associated small right-sided effusion. Jerome Brady MD Head CT 07/22/17 1253 Signed Impressions: Service Date/Time: Saturday, July 22, 2017 13:26 - CONCLUSION: No acute disease. Derrick Henry MD Objective Remarks GENERAL: Elderly female, lying in bed intubated. HEENT: Normocephalic. Atraumatic. Pupils equal, round, reactive, conjugate. Mucous membranes are moist NECK: Trachea is midline. There is no JVD. CHEST: Equal chest rise. Room air. CARDIOVASCULAR: RRR, nl S1, S2 ABDOMEN: Soft, nontender, nondistended, +BS, wound Vac in place. MUSCULOSKELETAL: Pulses 2+. No peripheral edema. Cyanosis of 2-4 toes on right NEUROLOGICAL: Intubated Date of Insertion: Jul 22, 2017 A/P Assessment and Plan Active problems: VDRF s/p Septic shock Right flank severe cellulitis, ? Nec fasc Acute kidney injury Leukocytosis Elevated CK Anemia Thrombocytopenia Hypothyroidism Plan: Plan by systems: Neurologic: Neuro checks per ICU protocol Fentanyl infusion for sedation and vent synchrony. Daily sedation vacation 07/22 CT brain: No acute disease Check MRI brain Tylenol 650 mg every 6 hours as needed for pain and/or temperature greater than 100.5 Respiratory: Continue with vent support keep sats >92% On PRVC 10, TV 350 IT:0.8, PEEP:5, FIO2: 30% Bronchodilators, ICU vent bundle. SBT daily as lawrence. Cardiovascular: Monitor HR and BP keep MAP>65mmHg. Decrease HC 50mg IV Q12 Lactic acid 1.8 from 4.6 CVP monitoring, For 2D echo Renal: Monitor renal function, I/O's, avoid nephrotoxins Cr:1.50 from 1.78 Renal is following- . d/c Lasix, on Free water 300ml Q6, monitor sodium level. FEN/GI: On Pepcid 10mg BID for GI prophylaxis Resume Tube feeds- Glucerna 1.5 with goal rate 45ml/hr ID: Continue with abx ( Vanco, Clindamycin, Zosyn) ID is following. Monitor for signs of infection s( Fever, WBC) 07/24 Wound cx :MRSA 07/24 BC :NGTD 07/23: urine cx: No growth 07/22 BC: NGTD Path report: Abdominal soft tissue excision: Skin and subcutaneous adipose tissue with acute cellulites and multifocal abscess formation 07/27 s/p excisional debridement with vac change of torso and abdomen 07/24 s/p wide excisional debridement of soft tissue infection with VAC placement for necrotizing soft tissue infection of abdomen, right hip area right torso area measuring approximately 32 x 18 inches x 2 inches deep. Surgery -Dr. Dumont. Endocrine: levothyroxine 112 mcg/day on hold. TSH:0.08 on 07/24 Glucose monitoring per ICU protocol. -- Continue SSI medium scale for glycemic control Prophylaxis: GI Prophylaxis Famotidine DVT Prophylaxis -- SCDs Lines: Central line placed on 07/22. Peripheral IVs 2, Left Ax Art line CCT 30 mins Chanda Sierra MD July 28, 2017 09:01
[2017-07-28] MEDS: CALCIUM/VITAMIN D 250 MG/125 U TAB PO SCH (09:13)
[2017-07-28] MEDS: SODIUM CHLORIDE 0.9% FLUSH 10 ML FLUSH IV FLUSH SCH ×2 (09:13→22:29)
[2017-07-28] MEDS: CHLOROTHIAZIDE SOD 500 MG VIAL IV SCH (09:58)
[2017-07-28 10:11] LABS: ALBUMIN 1.4 GM/DL (3.4-5.0); AST (GOT) 13 U/L (15-37); BICARBONATE 25.5 MEQ/L (21.0-32.0); BLOOD UREA NITROGEN 63 MG/DL (7-18); CALCIUM 9.3 MG/DL (8.5-10.1); CHLORIDE 112 MEQ/L (98-107); CREATININE 1.41 MG/DL (0.50-1.00); GLOMERULAR FILTRATION RATE 38 ML/MIN (>89); GLUCOSE,RANDOM 119 MG/DL (74-106); SODIUM (NA) 150 MEQ/L (136-145)
[2017-07-28 10:12] LABS: ALT (GPT) 27 U/L (10-53); PHOSPHORUS 5.1 MG/DL (2.5-4.9)
[2017-07-28 10:14] LABS: ALKALINE PHOSPHATASE 113 U/L (45-117); TOTAL BILIRUBIN ADULT 0.6 MG/DL (0.2-1.0); TOTAL PROTEIN 5.2 GM/DL (6.4-8.2)
--- NOTE | 2017-07-28 10:44 | HHI.FPPN ---
Subjective Remarks Nursing states critical care is ordering an MRI brain secondary to mental status. Our attending was able to get the patient to blink to commands temporarily, otherwise no history obtainable. Patient remains on mechanical ventilation. (Aristides Ortiz MD R3) Objective Vitals Vital Signs Date Time Temp Pulse Resp B/P (MAP) Pulse Ox O2 Delivery O2 Flow Rate FiO2 07/28/17 10:00 88 07/28/17 08:08 35 07/28/17 08:05 100 35 07/28/17 08:00 35 07/28/17 08:00 85 07/28/17 08:00 97.5 87 20 125/91 (102) 100 160/81 (107) 07/28/17 07:00 86 143/72 (95) 148/74 (98) 07/28/17 06:00 86 07/28/17 04:06 100 35 07/28/17 04:00 83 07/28/17 04:00 35 07/28/17 04:00 97.8 83 136/72 (93) 100 138/73 (94) 07/28/17 02:00 79 07/28/17 01:41 99 35 07/28/17 00:00 97.9 87 139/71 (93) 100 145/77 (99) 07/28/17 00:00 87 07/28/17 00:00 35 07/27/17 22:17 100 35 07/27/17 22:00 84 07/27/17 20:41 100 35 07/27/17 20:00 35 07/27/17 20:00 85 07/27/17 20:00 97.6 85 149/101 (117) 100 151/77 (101) 07/27/17 19:00 82 135/72 (93) 148/74 (98) 07/27/17 18:00 72 07/27/17 16:00 98.5 72 16 98/56 (70) 100 07/27/17 16:00 35 07/27/17 14:30 100 100 07/27/17 14:00 86 07/27/17 12:00 78 07/27/17 12:00 35 07/27/17 12:00 98.1 78 15 99/57 (71) 100 99/55 (70) 07/27/17 11:23 100 35 I/O 07/27/17 07/27/17 07/27/17 07/28/17 07/28/17 07/28/17 06:59 14:59 22:59 06:59 14:59 22:59 Intake Total 538 ml 50 ml 760 ml 665 ml 300 ml Output Total 2000 ml 1700 ml 1150 ml 1400 ml Balance -1462 ml -1650 ml -390 ml -735 ml 300 ml IV Total 350 ml 50 ml 700 ml 665 ml 300 ml Tube Feeding 138 ml 0 ml Tube Irrigant 50 ml 60 ml Output Urine Total 1000 ml 1700 ml 1050 ml 1000 ml Drainage Total 1000 ml 50 ml 400 ml Estimated Blood Loss 50 ml # Bowel Movements 0 0 0 (Aristides Ortiz MD R3) Result Diagram: 07/28/17 0411 07/28/17 0948 Objective Remarks GENERAL: Elderly female, lying in bed intubated. Will open eyes to verbal cues NECK: Trachea is midline. There is no JVD. CHEST: Equal chest rise. CARDIOVASCULAR: Regular rhythm. ABDOMEN: Soft, nondistended. Wound vac in place that spans from just distal of the R breast down to the R hip. Measurements are roughly 32 x 18 cm. MUSCULOSKELETAL: Difficult to palpate distal pulses of BLE. 2-5 toes of R foot are purple and cool to the touch. Unchanged from prior exam NEUROLOGICAL: Opens eyes to verbal cues, does not localize. (Aristides Ortiz MD R3) Date of Insertion: Jul 22, 2017 (Aristides Ortiz MD R3) A/P Assessment and Plan Patient is a 62 year old female who presents to the ED via EMS for evaluation of right-sided abdominal, flank and back erythema, swelling and pain. Patient was found to be hypotensive in transit to hospital with systolic pressures in the 70s. Patient has received multiple fluid boluses with minimal improvement. Patient admitted for management of pain and hypotension. Critical care was consulted for pressure support as patient is in severe septic shock. Lactate on admission of 5.1, most recent lactate of 3.3. Patient was started on vancomycin and Zosyn on admission. Patient deteriorated and was intubated on . Started on clindamycin. Surgery performed wide debridement of R torso and placed wound vac. Patient continues to be intubated Discharge Planning Unclear at this point, patient remains critically ill (Aristides Ortiz MD R3) Attending Attestation Patient seen and examined. Case reviewed and discussed with the resident team. Agree with plan of care as discussed with me and documented in the resident note. (Lamar Ortiz MD) Problem List: (1) Severe sepsis ICD Codes: A41.9 - Sepsis, unspecified organism; R65.20 - Severe sepsis without septic shock Status: Acute Plan: Being medically managed by critical care Intubated since 07/24 Suspected source is cellulitis/abdominal wall infection. Wound is growing MRSA. Blood cultures NGTD CT scan reviewed and showing edema and developing myositis Antibiotics: Vancomycin, Zosyn, clindamycin Currently off pressors on 07/26. (2) Abdominal wall cellulitis ICD Codes: L03.311 - Cellulitis of abdominal wall Plan: Patient presented with abdominal wall pain, see sepsis plan above CT scan on admission showed edema throughout the subcutaneous tissues of the right upper abdomen CT scan on 07/24 concerning for right-sided cellulitis and developing myositis Wide debridement with wound vac placed on 07/24 Excisional debridement and wound vac change 07/27 (3) Hypotension ICD Codes: I95.9 - Hypotension, unspecified Status: Resolved Plan: Currently off all pressors BP stabilized (4) Acute kidney injury ICD Codes: N17.9 - Acute kidney failure, unspecified Status: Acute Plan: Patient admitted with significant SHARONA. Suspected to be secondary to septic shock Has continued to have elevated creatinine during hospitalization, slowly improving Nephrology consulted on 07/24 Improving renal function (5) Hypothyroidism ICD Codes: E03.9 - Hypothyroidism Status: Chronic Plan: Patient with history of hypothyroidism. * Continue home meds. (6) GERD (gastroesophageal reflux disease) ICD Codes: K21.9 - Gastroesophageal reflux disease Status: Acute Plan: Patient with history of GERD. * Continue home meds. (7) Fluid, Electrolyte, Nutrition, and Prophylaxis Status: Acute Plan: Fluid: Being managed by critical care. Currently off IV fluids Electrolyte: * Monitor and replete as necessary. Nutrition: * Currently intubated DVT Prophylaxis: * SCDs. (Aristides Ortiz MD R3) Problem Qualifiers (1) Hypotension: Qualified Codes: I95.9 - Hypotension, unspecified Aristides Ortiz MD R3 July 28, 2017 10:44 Lamar Ortiz MD July 28, 2017 11:50
[2017-07-28] MEDS: POTASSIUM CHLOR 40 MEQ PREMIX 100 ML IV PRN ×2 (10:55→12:57)
--- NOTE | 2017-07-28 11:33 | HHI.NPPN ---
Subjective Renal Failure: Acute Interval History She had another I&D in OR yesterday. Remains intubated, sedated. Renal functio is better. Hypokalemic and hypernatremic today. (Adri Osorio) Review of Systems General General Remarks unable to obtain (Adri Osorio) Objective Data Data 07/28/17 07/29/17 19:00 07:00 Intake Total 350 ml Balance 350 ml IV Total 350 ml Vital Signs Date Time Temp Pulse Resp B/P (MAP) Pulse Ox O2 Delivery O2 Flow Rate FiO2 07/28/17 10:00 88 07/28/17 08:08 35 07/28/17 08:05 100 35 07/28/17 08:00 35 07/28/17 08:00 85 07/28/17 08:00 97.5 87 20 125/91 (102) 100 160/81 (107) 07/28/17 07:00 86 143/72 (95) 148/74 (98) 07/28/17 06:00 86 07/28/17 04:06 100 35 07/28/17 04:00 83 07/28/17 04:00 35 07/28/17 04:00 97.8 83 136/72 (93) 100 138/73 (94) 07/28/17 02:00 79 07/28/17 01:41 99 35 07/28/17 00:00 97.9 87 139/71 (93) 100 145/77 (99) 07/28/17 00:00 87 07/28/17 00:00 35 07/27/17 22:17 100 35 07/27/17 22:00 84 07/27/17 20:41 100 35 07/27/17 20:00 35 07/27/17 20:00 85 07/27/17 20:00 97.6 85 149/101 (117) 100 151/77 (101) 07/27/17 19:00 82 135/72 (93) 148/74 (98) 07/27/17 18:00 72 07/27/17 16:00 98.5 72 16 98/56 (70) 100 07/27/17 16:00 35 07/27/17 14:30 100 100 07/27/17 14:00 86 07/27/17 12:00 78 07/27/17 12:00 35 07/27/17 12:00 98.1 78 15 99/57 (71) 100 99/55 (70) (Adri Osorio) -: 07/28/17 0411 07/28/17 0948 Microbiology 07/27/17 Fungal Smear - Final, Resulted NO FUNGAL ELEMENTS SEEN. 07/27/17 Fungal Culture, Resulted Pending 07/27/17 Acid Fast Stain, Received Pending 07/27/17 Mycobacterial Culture, Received Pending 07/27/17 Gram Stain - Final, Resulted 07/27/17 Wound Culture, Resulted Pending Imaging Last 72 hours Impressions Chest X-Ray 07/27/17 0000 Signed Impressions: Service Date/Time: July 10:25 - CONCLUSION: 1. Stable tubes and lines. 2. Stable mild bibasilar airspace disease and trace right pleural effusion. Bob Daly MD Tubes & Lines: [place] Tubes & Lines Comment wound vac x 2 TLC Drip Comment propofol (Adri Osorio) Physical Exam General Appearance: Well Nourished, Comfortable Appearance Remarks intubated, sedated on vent (Adri Osorio) Throat Throat Exam: Oral Mucosa [place] & Moist (Adri Osorio) Pulmonary Resp Exam: Clear Bilaterally, Breath Sounds Equal (Adri Osorio) Cardiology CV Exam: Regular, Good Perfusion (Adri Osorio) Gastrointestinal/Abdomen GI Exam: Soft, Non-Tender, Bowel Sounds Present (Adri Osorio) Musculoskeletal MS Exam: Joints Intact, Normal Tone, Unable to Ambulate (Adri Osorio) Integumentary Skin Exam: Warm, Dry Skin Remarks large area on right flank and anterior chest s/p I&D. Wound vac in place. Some bruising around border Skin on Back has began o exhibit the same changes (Adri Osorio) Extremeties Extremities Exam: Pedal Pulses Palpable, Trace Edema Extremeties Remarks right foot ischemia (Adri Osorio) Neurologic Neuro Exam: Unresponsive, Sedated (Adri Osorio) Assessment/Plan Assessment Summary: SHARONA/Acute Renal Failure Electrolyte Assessment: Hyponatremia Problem List: (1) Acute kidney injury ICD Codes: N17.9 - Acute kidney failure, unspecified Status: Acute Plan: Normal renal function at baseline SHARONA due to sepsis and resulting renal hypoperfusion Renal function continues to improve She is Non oliguric Change to Diuril from Lasix Potassium replacement ordered Follow renal function daily Start Nepro tube feeding Continue supportive care Minimize nephrotoxic agents, dose appropriate to renal function (2) Severe sepsis ICD Codes: A41.9 - Sepsis, unspecified organism; R65.20 - Severe sepsis without septic shock Status: Acute Plan: Necrotizing cellulitis, s/p I&D in OR x 2, most recent 5/3 Antibiotics include Zosyn and Clindamycin, off vancomycin Cultures MRSA (wound) Specimen sent to pathology: cellulitis and multifocal abscess formation (3) Hypernatremia ICD Codes: E87.0 - Hyperosmolality and hypernatremia Plan: Diuresis with Diuril Free water 300 Q6h, tube feeding to be restarted this morning Use hypotonic fluids in needed (4) Hypotension ICD Codes: I95.9 - Hypotension, unspecified Status: Resolved Plan: Improved, off pressure support continue to monitor blood pressure (5) A-fib ICD Codes: I48.91 - Unspecified atrial fibrillation Plan: Off amiodarone, rhythm is regular (Adri Osorio) Problem List: (1) Acute kidney injury ICD Codes: N17.9 - Acute kidney failure, unspecified Status: Acute Plan: Normal renal function at baseline SHARONA due to sepsis and resulting renal hypoperfusion Renal function continues to improve She is Non oliguric Change to Diuril from Lasix Potassium replacement ordered Follow renal function daily Start Nepro tube feeding Continue supportive care Minimize nephrotoxic agents, dose appropriate to renal function (2) Severe sepsis ICD Codes: A41.9 - Sepsis, unspecified organism; R65.20 - Severe sepsis without septic shock Status: Acute Plan: Necrotizing cellulitis, s/p I&D in OR x 2, most recent 5/3 Antibiotics include Zosyn and Clindamycin, off vancomycin Cultures MRSA (wound) Specimen sent to pathology: cellulitis and multifocal abscess formation (3) Hypernatremia ICD Codes: E87.0 - Hyperosmolality and hypernatremia Plan: Diuresis with Diuril Free water 300 Q6h, tube feeding to be restarted this morning Use hypotonic fluids in needed (4) Hypotension ICD Codes: I95.9 - Hypotension, unspecified Status: Resolved Plan: Improved, off pressure support continue to monitor blood pressure (5) A-fib ICD Codes: I48.91 - Unspecified atrial fibrillation Plan: Off amiodarone, rhythm is regular Plan Patient was seen and examined. Agree with above assessment and plan. Renal function has improved. Free water for hypernatremia. Diuril for diuresis. (Jony Robert MD) Problem Qualifiers (1) Hypotension: Qualified Codes: I95.9 - Hypotension, unspecified Adri Osorio [facility] July 28, 2017 11:33 Jony Robert MD July 28, 2017 15:51
[2017-07-28] MEDS: FREE WATER G-TUBE SCH ×3 (12:00→22:28)
--- NOTE | 2017-07-28 12:08 | HHI.HCPN ---
Reason for visit a. To assist with evaluation and management of symptoms including: pain, dyspnea. b. To assist medical decision maker(s) with: better understanding of current medical conditions; weighing benefits/burdens of medical treatment options; making medical treatment decisions. Subjective/Interval History Patient is responsive, open eyes could. Tracking Remains intubated. No grimacing currently. Family/friend interactions Called Mr. Nagy. He stated he could not get here today, but tomorrow. He states he will bring in guardian paperwork. He strongly states he has them. I told him if you don't have him, I can get help to see if they are in the public domain. Review pt's clinical status. Spoke about that she remain critical, and this is a severe infection. Best case scenerio still requires weeks to months in the hospital. Along the way there can be setback, and decline. I told him that if it gets to the point where she is not improving despite all the medical treatment, focus may need to shift towards comfort measures only. He states he understand. Goals remains "do everything you can." Advance Directives Durable Power of [employer]: Completed, but not made available Objective Vital Signs Date Time Temp Pulse Resp B/P (MAP) Pulse Ox O2 Delivery O2 Flow Rate FiO2 07/28/17 11:45 100 35 07/28/17 10:00 88 07/28/17 08:08 35 07/28/17 08:05 100 35 07/28/17 08:00 35 07/28/17 08:00 85 07/28/17 08:00 97.5 87 20 125/91 (102) 100 160/81 (107) 07/28/17 07:00 86 143/72 (95) 148/74 (98) 07/28/17 06:00 86 07/28/17 04:06 100 35 07/28/17 04:00 83 07/28/17 04:00 35 07/28/17 04:00 97.8 83 136/72 (93) 100 138/73 (94) 07/28/17 02:00 79 07/28/17 01:41 99 35 07/28/17 00:00 97.9 87 139/71 (93) 100 145/77 (99) 07/28/17 00:00 87 07/28/17 00:00 35 07/27/17 22:17 100 35 07/27/17 22:00 84 07/27/17 20:41 100 35 07/27/17 20:00 35 07/27/17 20:00 85 07/27/17 20:00 97.6 85 149/101 (117) 100 151/77 (101) 07/27/17 19:00 82 135/72 (93) 148/74 (98) 07/27/17 18:00 72 07/27/17 16:00 98.5 72 16 98/56 (70) 100 07/27/17 16:00 35 07/27/17 14:30 100 100 07/27/17 14:00 86 Intake & Output 07/28/17 07/28/17 07:00 19:00 Intake Total 965 ml 350 ml Output Total 1400 ml Balance -435 ml 350 ml IV Total 965 ml 350 ml Output Urine Total 1000 ml Drainage Total 400 ml # Bowel Movements 0 Physical Exam CONSTITUTIONAL/GENERAL: This is an adequately nourished patient, in no apparent distress. TUBES/LINES/DRAINS: Wound vac, PIV, ET tube, scales. SKIN: Right sided wound s/p debridment with wound vac from right thigh all the way up torso to below axillary area. HEAD: Atraumatic. Normocephalic. EYES: open. Extraocular motions intact. No scleral icterus. No injection or drainage. Fundi not examined. ENT: . Nose without bleeding or purulent drainage. ET tube in placed NECK: Trachea midline. Supple, nontender. No palpable thyroid enlargement or nodularity. CARDIOVASCULAR: Regular rate and rhythm without murmurs, gallops, or rubs. No JVD. Peripheral pulses symmetric. RESPIRATORY/CHEST: Symmetric, unlabored respirations. Clear to auscultation. Breath sounds equal bilaterally. No wheezes, rales, or rhonchi. GASTROINTESTINAL: Abdomen soft, non-tender, nondistended. No hepato-splenomegaly , or palpable masses. No guarding. Bowel sounds present. GENITOURINARY: Without palpable bladder distension. Scales catheter in place. MUSCULOSKELETAL: Extremities without clubbing, cyanosis, or edema. LYMPHATICS: No palpable cervical or supraclavicular adenopathy. NEUROLOGICAL: Intubated and sedated Moves all extremities. PSYCHIATRIC: Unable to examine Diagnostic Tests Laboratory Laboratory Tests Test 07/26/17 03:35 07/26/17 10:10 07/26/17 13:40 07/27/17 04:45 White Blood Count 27.7 TH/MM3 (4.0-11.0) 32.3 TH/MM3 (4.0-11.0) Red Blood Count 2.99 MIL/MM3 (4.00-5.30) 3.08 MIL/MM3 (4.00-5.30) Hemoglobin 8.1 GM/DL (11.6-15.3) 8.2 GM/DL (11.6-15.3) Hematocrit 24.4 % (35.0-46.0) 25.2 % (35.0-46.0) Mean Corpuscular Volume 81.8 FL (80.0-100.0) 81.8 FL (80.0-100.0) Mean Corpuscular Hemoglobin 27.2 PG (27.0-34.0) 26.7 PG (27.0-34.0) Mean Corpuscular Hemoglobin Concent 33.2 % (32.0-36.0) 32.7 % (32.0-36.0) Red Cell Distribution Width 15.0 % (11.6-17.2) 14.9 % (11.6-17.2) Platelet Count 145 TH/MM3 (150-450) 113 TH/MM3 (150-450) Mean Platelet Volume 7.1 FL (7.0-11.0) 7.2 FL (7.0-11.0) Neutrophils (%) (Auto) 91.8 % (16.0-70.0) Lymphocytes (%) (Auto) 5.2 % (9.0-44.0) Monocytes (%) (Auto) 2.8 % (0.0-8.0) Eosinophils (%) (Auto) 0.1 % (0.0-4.0) Basophils (%) (Auto) 0.1 % (0.0-2.0) Neutrophils # (Auto) 25.4 TH/MM3 (1.8-7.7) Lymphocytes # (Auto) 1.4 TH/MM3 (1.0-4.8) Monocytes # (Auto) 0.8 TH/MM3 (0-0.9) Eosinophils # (Auto) 0.0 TH/MM3 (0-0.4) Basophils # (Auto) 0.0 TH/MM3 (0-0.2) CBC Comment AUTO DIFF AUTO DIFF Differential Comment AUTO DIFF CONFIRMED FINAL DIFF MANUAL Blood Urea Nitrogen 61 MG/DL (7-18) 67 MG/DL (7-18) Creatinine 1.81 MG/DL (0.50-1.00) 1.78 MG/DL (0.50-1.00) Random Glucose 168 MG/DL (74-106) 103 MG/DL (74-106) Calcium Level 8.5 MG/DL (8.5-10.1) 8.6 MG/DL (8.5-10.1) Phosphorus Level 3.7 MG/DL (2.5-4.9) Magnesium Level 1.7 MG/DL (1.5-2.5) Sodium Level 132 MEQ/L (136-145) 139 MEQ/L (136-145) Potassium Level 4.0 MEQ/L (3.5-5.1) 3.7 MEQ/L (3.5-5.1) Chloride Level 100 MEQ/L (98-107) 105 MEQ/L (98-107) Carbon Dioxide Level 18.0 MEQ/L (21.0-32.0) 22.5 MEQ/L (21.0-32.0) Anion Gap 14 MEQ/L (5-15) 12 MEQ/L (5-15) Estimat Glomerular Filtration Rate 28 ML/MIN (>89) 29 ML/MIN (>89) Lactic Acid Level 1.8 mmol/L (0.4-2.0) Blood Gas Puncture Site ART LINE Blood Gas Patient Temperature 98.6 Blood Gas HCO3 20 mmol/L (22-26) Blood Gas Base Excess -2.8 mmol/L (-2-2) Blood Gas Oxygen Saturation 95 % (90-100) Arterial Blood pH 7.54 (7.380-7.420) Arterial Blood Partial Pressure CO2 23 mmHg (38-42) Arterial Blood Partial Pressure O2 139 mmHg (61-120) Arterial Blood Oxygen Content 13.2 Vol % (12.0-20.0) Arterial Blood Carboxyhemoglobin 0.1 % (0-4) Arterial Blood Methemoglobin 2.4 % (0-2) Blood Gas Hemoglobin 9.7 G/DL (12.0-16.0) Oxygen Delivery Device VENTILATOR Blood Gas Ventilator Setting Blood Gas Inspired Oxygen 35 % Differential Total Cells Counted 100 Neutrophils % (Manual) 86 % (16-70) Band Neutrophils % 6 % (0-6) Lymphocytes % 4 % (9-44) Monocytes % 4 % (0-8) Neutrophils # (Manual) 29.7 TH/MM3 (1.8-7.7) Platelet Estimate LOW (NORMAL) Platelet Morphology Comment NORMAL (NORMAL) Random Vancomycin Level 18.4 COMMENT Test 07/27/17 12:30 07/28/17 04:11 07/28/17 09:48 Blood Gas Puncture Site ART LINE Blood Gas Patient Temperature 98.6 Blood Gas HCO3 21 mmol/L (22-26) Blood Gas Base Excess -3.5 mmol/L (-2-2) Blood Gas Oxygen Saturation 95 % (90-100) Arterial Blood pH 7.38 (7.380-7.420) Arterial Blood Partial Pressure CO2 36 mmHg (38-42) Arterial Blood Partial Pressure O2 153 mmHg (61-120) Arterial Blood Oxygen Content 12.5 Vol % (12.0-20.0) Arterial Blood Carboxyhemoglobin 0.0 % (0-4) Arterial Blood Methemoglobin 2.5 % (0-2) Blood Gas Hemoglobin 9.1 G/DL (12.0-16.0) Oxygen Delivery Device VENTILATOR Blood Gas Ventilator Setting CPAP/PEEP5/PS10 Blood Gas Inspired Oxygen 35 % White Blood Count 29.2 TH/MM3 (4.0-11.0) Red Blood Count 3.08 MIL/MM3 (4.00-5.30) Hemoglobin 8.1 GM/DL (11.6-15.3) Hematocrit 25.2 % (35.0-46.0) Mean Corpuscular Volume 82.0 FL (80.0-100.0) Mean Corpuscular Hemoglobin 26.3 PG (27.0-34.0) Mean Corpuscular Hemoglobin Concent 32.1 % (32.0-36.0) Red Cell Distribution Width 14.9 % (11.6-17.2) Platelet Count 114 TH/MM3 (150-450) Mean Platelet Volume 7.7 FL (7.0-11.0) Neutrophils (%) (Auto) 92.8 % (16.0-70.0) Lymphocytes (%) (Auto) 3.1 % (9.0-44.0) Monocytes (%) (Auto) 4.0 % (0.0-8.0) Eosinophils (%) (Auto) 0.0 % (0.0-4.0) Basophils (%) (Auto) 0.1 % (0.0-2.0) Neutrophils # (Auto) 27.1 TH/MM3 (1.8-7.7) Lymphocytes # (Auto) 0.9 TH/MM3 (1.0-4.8) Monocytes # (Auto) 1.2 TH/MM3 (0-0.9) Eosinophils # (Auto) 0.0 TH/MM3 (0-0.4) Basophils # (Auto) 0.0 TH/MM3 (0-0.2) CBC Comment AUTO DIFF Differential Comment AUTO DIFF CONFIRMED Ovalocytes 1+ (NORMAL) Blood Urea Nitrogen 63 MG/DL (7-18) 63 MG/DL (7-18) Creatinine 1.50 MG/DL (0.50-1.00) 1.41 MG/DL (0.50-1.00) Random Glucose 110 MG/DL (74-106) 119 MG/DL (74-106) Calcium Level 9.0 MG/DL (8.5-10.1) 9.3 MG/DL (8.5-10.1) Phosphorus Level 4.9 MG/DL (2.5-4.9) 5.1 MG/DL (2.5-4.9) Magnesium Level 1.8 MG/DL (1.5-2.5) Sodium Level 150 MEQ/L (136-145) 150 MEQ/L (136-145) Potassium Level 3.1 MEQ/L (3.5-5.1) 3.0 MEQ/L (3.5-5.1) Chloride Level 112 MEQ/L (98-107) 112 MEQ/L (98-107) Carbon Dioxide Level 25.9 MEQ/L (21.0-32.0) 25.5 MEQ/L (21.0-32.0) Anion Gap 12 MEQ/L (5-15) 13 MEQ/L (5-15) Estimat Glomerular Filtration Rate 35 ML/MIN (>89) 38 ML/MIN (>89) Total Protein 5.2 GM/DL (6.4-8.2) Albumin 1.4 GM/DL (3.4-5.0) Alkaline Phosphatase 113 U/L (45-117) Aspartate Amino Transf (AST/SGOT) 13 U/L (15-37) Alanine Aminotransferase (ALT/SGPT) 27 U/L (10-53) Total Bilirubin 0.6 MG/DL (0.2-1.0) Result Diagram: 07/28/17 0411 07/28/17 0948 Microbiology Microbiology Date/Time Source Procedure Growth Status 07/27/17 15:30 Wound Other Fungal Smear - Final NO FUNGAL ELEMENTS SEEN. Resulted 07/27/17 15:30 Wound Other Fungal Culture Pending Resulted 07/27/17 15:30 Wound Other Acid Fast Stain Pending Received 07/27/17 15:30 Wound Other Mycobacterial Culture Pending Received 07/27/17 15:30 Wound Other Gram Stain - Final Resulted 07/27/17 15:30 Wound Other Wound Culture Pending Resulted Imaging Last Impressions Chest X-Ray 07/27/17 0000 Signed Impressions: Service Date/Time: July 10:25 - CONCLUSION: 1. Stable tubes and lines. 2. Stable mild bibasilar airspace disease and trace right pleural effusion. Bob Daly MD Chest CT 07/24/17 0000 Signed Impressions: Service Date/Time: Monday, July 24, 2017 05:36 - CONCLUSION: 1. Stranding in the subcutaneous tissues about the right flank with fluid adjacent to the latissimus dorsi. Stranding extends up into the right breast. Findings could represent developing cellulitis. 2. In addition, there is now a small right-sided effusion with bilateral dependent atelectatic changes. Jerome Brady MD Abdomen/Pelvis CT 07/24/17 0000 Signed Impressions: Service Date/Time: Monday, July 24, 2017 05:36 - CONCLUSION: 1. CT findings concerning for a right sided cellulitis and developing myositis. There is some asymmetric prominence of the latissimus dorsi muscle on the right. Unorganized fluid in the deep subcutaneous tissues adjacent to the muscle belly. No drainable fluid collection, however. 2. Developing dependent areas of consolidation, right greater than left with an associated small right-sided effusion. Jerome Brady MD Head CT 07/22/17 1253 Signed Impressions: Service Date/Time: Saturday, July 22, 2017 13:26 - CONCLUSION: No acute disease. Derrick Henry MD Assessment and Plan Disease Oriented Problem List: (1) Severe sepsis (2) Abdominal wall cellulitis Comment: required debridement of necrotizing tissue. (3) Acute kidney injury (4) DM (diabetes mellitus) Symptom Scale: (1) Dyspnea 0-10 Scale: Unable to quantify (2) Pain 0-10 Scale: Unable to quantify Pertinent Non-Medical Issues Psychosocial:developmental delay Spiritual: unknown Legal: await paper work guardian/poa of Mr. Nagy. Ethical issues impacting care:none Important Contacts Felipe Nagy reported POA. [phone] Prognosis 62 year old female with severe sepsis, due to large right sided necrotizing wound + for MRSA. Spoke with lay health advocate, currently pressor need is being titrated down, and kidney function is improving. Prognosis is guarded. Pt's developmental delays, along with the large complicated wound she have, that may need weeks/month of hospitalization, may hinder pt's ability to convalescence. Code Status: Full Code Plan ==code: Full == capacity- pt currently has not capacity to make medical decision. Has hx of developemental delay, and has a guardian. == POA/guardian- reportedly Mr. Felipe Nagy, I have asked Mr. Nagy to bring in guardian paperwork tomorrow. He states he will be in in the afternoon.. ==Goals of treatment.- Called Mr. Nagy. He stated he could not get here today, but tomorrow. He states he will bring in guardian paperwork. He strongly states he has them. I told him if you don't have him, I can get help to see if they are in the public domain. Review pt's clinical status. Spoke about that she remain critical, and this is a severe infection. Best case scenerio still requires weeks to month in the hospital. Along the way there can be setback, and decline. I told him that if it gets to the point where she is not improving despite all the medical treatment, focus may need to shift towards comfort measures only. He states he understand. Goals remains "do everything you can." Symptoms. == dyspnea- currently intubated. continue vent management per critical medicine pain- s/p surgery, extensive right sided wound/ general debility. Continue fentanyl for now. PRN morphine available == palliative care will continue to follow. Attestation To help prompt me to consider important information that might be impacting today's encounter and assessment, information from prior notes written by myself or my colleagues may have been "brought forward" into today's note. My signature on this note, however, is an attestation that I personally performed the exam, history, and/or decision-making noted today, and, unless otherwise indicated, the interactions with patient, family, and staff as well as the review of records all occurred today. I also attest that the listed assessment and stated plan reflect my best clinical judgment today based on the combination of historical information, prior notes, and today's exam/ interactions. When time spent is documented, it refers only to time spent today by the signer, or if indicated, combined time spent today by collaborating physician/nurse practitioner. Keshawn Baez MD July 28, 2017 12:08
[2017-07-28] MEDS: MIDAZOLAM 50 MG/50 ML INJ 50 ML IV PRN ×2 (12:24→22:33)
--- NOTE | 2017-07-28 15:36 | HHI.PR ---
Subjective Subjective Notes intubated sedated,off pressors Objective Vitals/I&O Vital Signs Date Time Temp Pulse Resp B/P (MAP) Pulse Ox O2 Delivery O2 Flow Rate FiO2 07/28/17 14:15 100 100 07/28/17 12:00 97.8 86 20 156/84 (108) 121/101 (108) Labs Laboratory Tests Test 07/28/17 04:11 07/28/17 09:48 White Blood Count 29.2 Red Blood Count 3.08 Hemoglobin 8.1 Hematocrit 25.2 Mean Corpuscular Volume 82.0 Mean Corpuscular Hemoglobin 26.3 Mean Corpuscular Hemoglobin Concent 32.1 Red Cell Distribution Width 14.9 Platelet Count 114 Mean Platelet Volume 7.7 Neutrophils (%) (Auto) 92.8 Lymphocytes (%) (Auto) 3.1 Monocytes (%) (Auto) 4.0 Eosinophils (%) (Auto) 0.0 Basophils (%) (Auto) 0.1 Neutrophils # (Auto) 27.1 Lymphocytes # (Auto) 0.9 Monocytes # (Auto) 1.2 Eosinophils # (Auto) 0.0 Basophils # (Auto) 0.0 CBC Comment AUTO DIFF Differential Comment AUTO DIFF CONFIRMED Ovalocytes 1+ Blood Urea Nitrogen 63 63 Creatinine 1.50 1.41 Random Glucose 110 119 Calcium Level 9.0 9.3 Phosphorus Level 4.9 5.1 Magnesium Level 1.8 Sodium Level 150 150 Potassium Level 3.1 3.0 Chloride Level 112 112 Carbon Dioxide Level 25.9 25.5 Anion Gap 12 13 Estimat Glomerular Filtration Rate 35 38 Total Protein 5.2 Albumin 1.4 Alkaline Phosphatase 113 Aspartate Amino Transf (AST/SGOT) 13 Alanine Aminotransferase (ALT/SGPT) 27 Total Bilirubin 0.6 Date/Time Source Procedure Growth Status 07/24/17 05:05 Blood Peripheral Aerobic Blood Culture - Preliminary NO GROWTH IN 4 DAYS Resulted 07/24/17 05:05 Blood Peripheral Anaerobic Blood Culture - Preliminary NO GROWTH IN 4 DAYS Resulted 07/22/17 20:10 Nasal Washing Influenza Types A,B Antigen (DELMI) - Final NEGATIVE FOR FLU A AND B ANTIGEN.... Complete 07/23/17 16:05 Urine Catheterized Urine Urine Culture - Final NO GROWTH IN 48 HOURS. Complete 07/27/17 15:30 Wound Other Fungal Smear - Final NO FUNGAL ELEMENTS SEEN. Resulted 07/27/17 15:30 Wound Other Fungal Culture Pending Resulted Cardiovascular: Regular Lungs: Rhonchi Abdomen: Other (soft, vac good seal serosang output) A/P Assessment and Plan Soft tissues necrotizing infection s/p incision and wide excisional debridement #2 of torso POD 1 VAC good seal PLAN Will change vac in 1-2 days continue abx vent per isc close monitoring Tip Dumont MD July 28, 2017 15:36
--- NOTE | 2017-07-28 16:02 | RADRPT ---
EXAM DATE/TIME: 07/28/2017 14:38 [facility] COMPARISON: MRI BRAIN W/O CONTRAST, January 22, 2017, 9:43. INDICATIONS : Encephalopathy. MEDICAL HISTORY : Diabetes mellitus type 2. Hypertension. SURGICAL HISTORY : Hysterectomy. ENCOUNTER: Initial ACUITY: 1 day PAIN SCORE: Nonresponsive. LOCATION: Bilateral cranial TECHNIQUE: Multiplanar, multisequence MRI of the brain was performed without contrast. FINDINGS: CEREBRUM: The ventricles are normal for age. No evidence of midline shift, mass lesion, hemorrhage or acute in farction. No extraaxial fluid collections are seen. The pituitary gland and suprasellar cistern are normal in configuration. WHITE MATTER: No significant signal abnormalities are seen in the white matter. POSTERIOR FOSSA: The cerebellum and brainstem are intact. The 4th ventricle is midline. The cerebellopontine angle is unremarkable. The cerebellar tonsils are normal in position. DIFFUSION IMAGING: No focal areas of restricted diffusion are seen. No evidence of acute infarction. EXTRACRANIAL: The visualized portions of the orbits and paranasal sinuses are unremarkable. CONCLUSION: 1. Unremarkable MRI examination the brain. 2. No acute abnormality or interval change. Bob Daly MD on July 28, 2017 at 15:59 Board Certified Radiologist. This report was verified electronically.
[2017-07-29] VITALS (20 sets, daily range): BP systolic 103–161; BP diastolic 53–83; PULSE 70–102; RESP 13–17; TEMP 96.6–98.6; O2SAT 97–100
[2017-07-29] MEDS: POTASSIUM CHLOR 20 MEQ PREMIX 100 ML IV PRN (02:05)
[2017-07-29] MEDS: PIPERACIL-TAZO 3.375 GM PREMIX 50 ML IV SCH ×2 (02:05→10:05)
[2017-07-29] MEDS: POTASSIUM CHLORIDE 25 MEQ EFFERVESCENT TAB PO PRN (02:05)
[2017-07-29] MEDS: INSULIN NovoLIN REGULAR SUPPLEMENTAL SCALE SQ SCH ×8 (03:48→23:59)
[2017-07-29] MEDS: CLINDAMYCIN 600 MG/NS PREMIX 50 ML IV SCH ×4 (04:22→22:11)
[2017-07-29] MEDS: FREE WATER G-TUBE SCH ×4 (05:06→23:58)
[2017-07-29 05:49] LABS: HEMATOCRIT 22.6 % (35.0-46.0); HEMOGLOBIN 7.4 GM/DL (11.6-15.3); MEAN CELL VOLUME 81.7 FL (80.0-100.0); MEAN CORPUSCULAR HEMOGLOBIN 26.8 PG (27.0-34.0); MEAN CORPUSCULAR HGB CONC 32.8 % (32.0-36.0); MEAN PLATELET VOLUME 8.1 FL (7.0-11.0); PLATELET COUNT 133 TH/MM3 (150-450); RED BLOOD COUNT 2.76 MIL/MM3 (4.00-5.30); RED CELL DISTRIBUTION WIDTH 14.6 % (11.6-17.2); WHITE BLOOD COUNT 20.7 TH/MM3 (4.0-11.0)
[2017-07-29 06:24] LABS: ALBUMIN 1.2 GM/DL (3.4-5.0); ALKALINE PHOSPHATASE 93 U/L (45-117); ALT (GPT) 22 U/L (10-53); AST (GOT) 10 U/L (15-37); BICARBONATE 28.8 MEQ/L (21.0-32.0); BLOOD UREA NITROGEN 61 MG/DL (7-18); CALCIUM 8.8 MG/DL (8.5-10.1); CHLORIDE 116 MEQ/L (98-107); CREATININE 1.23 MG/DL (0.50-1.00); GLOMERULAR FILTRATION RATE 44 ML/MIN (>89); GLUCOSE,RANDOM 114 MG/DL (74-106); MAGNESIUM 1.8 MG/DL (1.5-2.5); RANDOM VANCOMYCIN 18.9 COMMENT; SODIUM (NA) 151 MEQ/L (136-145); TOTAL BILIRUBIN ADULT 0.5 MG/DL (0.2-1.0); TOTAL PROTEIN 4.4 GM/DL (6.4-8.2)
[2017-07-29 07:40] LABS: LYMPHOCYTES 9 % (9-44); MONOCYTES 3 % (0-8); NEUTROPHIL # MANUAL DIFF 18.2 TH/MM3 (1.8-7.7); POLYS (SEG NEUTROPHILS) 88 % (16-70)
[2017-07-29] MEDS: CHLORHEXIDINE 0.12% (ORAL KIT) 15 ML CUP MT SCH ×2 (08:45→22:11)
[2017-07-29] MEDS: HYDROCORTISONE SOD SUCCINATE 100 MG VIAL IV PUSH SCH ×2 (08:47→22:11)
[2017-07-29] MEDS: SODIUM CHLORIDE 0.9% FLUSH 10 ML FLUSH IV FLUSH SCH ×2 (08:47→22:11)
[2017-07-29] MEDS: CHLOROTHIAZIDE SOD 500 MG VIAL IV SCH (08:47)
[2017-07-29] MEDS: FAMOTIDINE 20 MG TAB PO SCH ×2 (08:48→22:10)
[2017-07-29] MEDS: DOCUSATE SODIUM 50 MG/SENNA 8.6 MG TAB PO SCH ×2 (08:48→22:10)
[2017-07-29] MEDS: MULTIVITAMIN-OPHTHALMIC 1 TAB PO SCH (08:48)
[2017-07-29] MEDS: CALCIUM/VITAMIN D 250 MG/125 U TAB PO SCH (08:48)
[2017-07-29] MEDS: BUDESONIDE 9 MG PO SCH (08:49)
--- NOTE | 2017-07-29 09:46 | PD.VS.CON ---
History of Present Illness Chief Complaint: Cyanosis R toes Consult Requested by: MICU History of Present Illness 62 yo lady with septic shock presumably from necrotizing fasciitis of R flank; intubated, sedated and previously on pressors. R toes cyanotic. Per report, pt not moving extremities but does open eyes Full code per palliative care note All history obtained from staffing consultant and EMR Past/Family/Social History Past Medical History nec fasc anxiety/depression CRI hypothyroidism GERD UTIs Past Surgical History debridement of skin and VAC application thyroid surgery hanane D&C LION Social History unable to obtain Family History unable to obtain Home Medications Active Scripts Tramadol (Tramadol) 50 Mg Tab, 50 MG PO Q8H Y for PAIN, #90 TAB 0 Refills Prov:Lamar Ortiz MD 04/21/17 Levothyroxine (Levothyroxine) 175 Mcg Tab, 175 MCG PO DAILY for Thyroid, #30 TAB 3 Refills Prov:Lamar Ortiz MD 04/11/17 Aspirin (Aspirin) 325 Mg Tab, 325 MG PO DAILY, #90 TAB 0 Refills Prov:Tarik Morrow MD, R3 01/23/17 Lisinopril (Lisinopril) 5 Mg Tab, 5 MG PO DAILY for Blood Pressure Management, # 90 TAB 3 Refills Prov:Lamar Ortiz MD 12/27/16 Ranitidine (Zantac) 150 Mg Tab, 150 MG PO BID for Reduce Stomach Acid, #180 TAB 3 Refills Prov:Lamar Ortiz MD 10/11/16 Reported Medications Budesonide ER 24 HR (Uceris ER 24 HR) 9 Mg Vee, 9 MG PO DAILY, #30 TAB 0 Refills 07/22/17 Pioglitazone (Actos) 15 Mg Tab, 15 MG PO DAILY for Blood Sugar Management, #30 TAB 0 Refills 07/22/17 Pantoprazole (Protonix) 40 Mg Tab, 40 MG PO DAILY for Reflux, #30 TAB 0 Refills 07/22/17 Nitrofurantoin Monohydrate Macrocrystals (Macrobid) 100 Mg Cap, 100 MG PO BID for Infection, CAP 0 Refills 07/22/17 Multiple Vitamins W/ Minerals (Ocuvite) 1 Tab, 1 TAB PO DAILY for Nutritional Supplement, TAB 0 Refills 02/13/16 Calcium Carbonate-Vitamin D W/Minerals (Calcium 600+D Plus Minerals) 600-400 Mg- Unit Tab, 1 TAB PO DAILY for Nutritional Supplement, TAB 0 Refills 02/13/16 Discontinued Reported Medications Imipramine Pamoate (Imipramine Pamoate) 75 Mg Cap, 75 MG PO DAILY 02/13/16 Discontinued Scripts Cephalexin (Keflex) 500 Mg Capsule, 500 MG PO Q8H for Infection for 7 Days, #21 CAP 0 Refills Prov:Ly Mueller MD 06/15/17 Ondansetron Odt (Zofran Odt) 4 Mg Tab, 4 MG SL Q6HR Y for Nausea/Vomiting, #10 TAB 0 Refills Prov:Ly Mueller MD 06/15/17 Methocarbamol (Robaxin) 500 Mg Tab, 500 MG PO QID Y for MUSCLE SPASM, #20 TAB 0 Refills Prov:Beronica Feliz 05/05/17 Ciprofloxacin (Cipro) 500 Mg Tab, 500 MG PO BID for Infection for 7 Days, #14 TAB 0 Refills Prov:Errol Wolf MD 04/27/17 Metaxalone (Skelaxin) 800 Mg Tablet, 1 TAB PO TID, #21 Prov:Dayana Baez DO 01/17/17 Coded Allergies: No Known Allergies (Verified Allergy, Unknown, 07/22/17) Review of Systems ROS Limitations: Intubated, Altered Mental Status, Unresponsive Physical Exam Vitals/I&O Date Time Temp Pulse Resp B/P (MAP) Pulse Ox O2 Delivery O2 Flow Rate FiO2 07/29/17 08:29 100 35 07/29/17 08:29 35 07/29/17 08:25 100 35 07/29/17 08:00 74 112/56 (74) 111/53 (72) 07/29/17 06:00 72 07/29/17 04:03 100 35 07/29/17 04:00 97.3 70 14 103/58 (73) 100 110/57 (74) 07/29/17 04:00 70 07/29/17 04:00 35 07/29/17 02:00 71 07/29/17 00:53 97 35 07/29/17 00:00 96.6 72 15 127/73 (91) 100 132/66 (88) 07/29/17 00:00 72 07/29/17 00:00 35 07/28/17 22:00 74 07/28/17 21:00 70 118/66 (83) 126/62 (83) 07/28/17 20:26 98 35 07/28/17 20:00 97.0 80 13 112/58 (76) 100 120/64 (82) 07/28/17 20:00 35 07/28/17 20:00 80 07/28/17 18:00 84 07/28/17 16:23 99 35 07/28/17 16:00 75 07/28/17 16:00 35 07/28/17 16:00 97.8 86 20 156/84 (108) 100 121/101 (108) 07/28/17 14:15 100 100 07/28/17 14:00 74 07/28/17 12:00 97.8 86 20 156/84 (108) 100 121/101 (108) 07/28/17 12:00 75 07/28/17 12:00 35 07/28/17 11:45 100 35 07/28/17 10:00 88 07/29/17 07/29/17 07/29/17 07:00 15:00 23:00 Intake Total 1025 ml Output Total 1305 ml Balance -280 ml Neuro: sedated, intubated; not moving extremities Neck: trachea midline Heart: reg rate Vascular: palpable pedal pulses Extremities: R toes 2-4 cyanotic, no drainage, no odor and no break in skin integrity L toes ok Laboratory Tests Test 07/28/17 09:48 07/29/17 01:15 07/29/17 05:00 Blood Urea Nitrogen 63 61 Creatinine 1.41 1.23 Random Glucose 119 114 Total Protein 5.2 4.4 Albumin 1.4 1.2 Calcium Level 9.3 8.8 Phosphorus Level 5.1 3.0 Alkaline Phosphatase 113 93 Aspartate Amino Transf (AST/SGOT) 13 10 Alanine Aminotransferase (ALT/SGPT) 27 22 Total Bilirubin 0.6 0.5 Sodium Level 150 151 Potassium Level 3.0 3.2 5.0 Chloride Level 112 116 Carbon Dioxide Level 25.5 28.8 Anion Gap 13 6 Estimat Glomerular Filtration Rate 38 44 White Blood Count 20.7 Red Blood Count 2.76 Hemoglobin 7.4 Hematocrit 22.6 Mean Corpuscular Volume 81.7 Mean Corpuscular Hemoglobin 26.8 Mean Corpuscular Hemoglobin Concent 32.8 Red Cell Distribution Width 14.6 Platelet Count 133 Mean Platelet Volume 8.1 CBC Comment AUTO DIFF Differential Total Cells Counted 100 Neutrophils % (Manual) 88 Lymphocytes % 9 Monocytes % 3 Neutrophils # (Manual) 18.2 Differential Comment FINAL DIFF MANUAL Platelet Estimate LOW Platelet Morphology Comment NORMAL Red Cell Morphology Comment NORMAL Magnesium Level 1.8 Random Vancomycin Level 18.9 Date/Time Source Procedure Growth Status 07/24/17 05:05 Blood Peripheral Aerobic Blood Culture - Preliminary NO GROWTH IN 4 DAYS Resulted 07/24/17 05:05 Blood Peripheral Anaerobic Blood Culture - Preliminary NO GROWTH IN 4 DAYS Resulted 07/22/17 20:10 Nasal Washing Influenza Types A,B Antigen (DELMI) - Final NEGATIVE FOR FLU A AND B ANTIGEN.... Complete 07/23/17 16:05 Urine Catheterized Urine Urine Culture - Final NO GROWTH IN 48 HOURS. Complete 07/27/17 15:30 Wound Other Fungal Smear - Final NO FUNGAL ELEMENTS SEEN. Resulted 07/27/17 15:30 Wound Other Fungal Culture Pending Resulted Last 48 hours Impressions Brain MRI 07/28/17 0000 Signed Impressions: Service Date/Time: Friday, July 28, 2017 14:38 - CONCLUSION: 1. Unremarkable MRI examination the brain. 2. No acute abnormality or interval change. Bob Daly MD Assessment and Plan Plan Critically ill patient with likely pressor-induced ischemia of toes; palpable pulses 1. No need for additional vascular testing given palpable pulses 2. supportive care of cyanosis of toes (minimize pressors, watch for odor, drainage or other signs of infection) 3. Please call with any questions Sudhir Garcia MD FACS [employer] corporate associate attorney [facility] - Heart and Vascular Surgery at [facility] [phone] Sudhir Garcia MD July 29, 2017 09:45
--- NOTE | 2017-07-29 10:40 | HHI.CCPN ---
Subjective Remarks/Hospital Course This is a 62-year-old female with a history of developmental delay and recurrent urinary tract infections who presents with new onset right-sided abdominal and flank pain. Per the [facility] service admission note this is been going on for approximately 4 weeks. Patient has a history of developmental delay and is difficult to get a complete history from her, no analysis with her on my evaluation. On my evaluation she endorses flank pain radiating around to her chest. She endorses subjective chills. Denies recent fevers to me. Also endorses nausea, vomiting. In the emergency department she was found to have significant erythema, rubor, dolor, and edema from approximately the fifth intercostal space down to the eighth or ninth intercostal space wrapping around from the midline in the back all the way around to just medial to the breast. CT scan of the abdomen and pelvis confirms significant subcutaneous edema, but this area of edema appears to be contained by intact fascial planes, particularly in the midline of the back. Laboratory evidence is significant for a white blood cell count of 27k, creatinine is 3.58, potassium 5.4, bicarb of 17.9, anion gap elevated at 15, BUN of 64, an initial lactate of 5.1. In the emergency department she received 3 L of crystalloid IV fluids. Despite this she is hypotensive with a mean arterial pressure of 51. Critical care medicine is consulted to evaluate manage her presumed septic shock secondary to severe cellulitis of the trunk. I have given her an additional liter of crystalloid and then placed central venous access, see separate procedure note for details. In addition her lactate is starting to clear and is now 2.9 with an more currently pending, however it is not clearing fast enough and she remains oliguric. I placed a Terrazas for accurate hourly I's and O's. The remainder of the review systems for the patient is negative except documented in the HPI, although this is severely limited by her baseline developmental delay. Subjective 07/23: Patient remains on vasopressors, noted metabolic acidosis, bicarbonate level of 15. Sodium bicarbonate infusion initiated. 07/24 Patient was intubated early this morning now on Vasopressin and Neosyn 300 mics in addition patient is on Amio and Bicarb drips. WBC increased 31. CT abd/pelvis showed right sided cellulites and developing myositis. 07/25 Patient went to OR yesterday s/p wide excisional debridement of soft tissue infection with VAC placement for necrotizing soft tissue infection of abdomen, right hip area right torso area measuring approximately 32 x 18 inches x 2 inches deep. She remains on Vasopressin 0.04 and Neosyn down to 120 mics. On Amio drip. 07/26 No events overnight. Off all pressors, WBC is trending down. On Amio drip. 07/27 Patient remains intubated for return to OR today and wound vac exchange. 07/28 Patient s/p excisional debridement with vac change yesterday intubated and sedated with Fentanyl infusion. 07/29 Patient remains intubated and sedated with Fentanyl and Versed drips. Afebrile. Objective Vital Signs Date Time Temp Pulse Resp B/P (MAP) Pulse Ox O2 Delivery O2 Flow Rate FiO2 07/29/17 08:29 100 35 07/29/17 08:00 74 112/56 (74) 111/53 (72) 07/29/17 08:00 98.3 17 Intake and Output 07/29/17 07/29/17 07/30/17 08:00 16:00 00:00 Intake Total 1025 ml Output Total 1305 ml Balance -280 ml Result Diagram: 07/29/17 0500 07/29/17 0500 Other Results Laboratory Tests Test 07/29/17 01:15 07/29/17 05:00 Potassium Level 3.2 MEQ/L 5.0 MEQ/L White Blood Count 20.7 TH/MM3 Red Blood Count 2.76 MIL/MM3 Hemoglobin 7.4 GM/DL Hematocrit 22.6 % Mean Corpuscular Volume 81.7 FL Mean Corpuscular Hemoglobin 26.8 PG Mean Corpuscular Hemoglobin Concent 32.8 % Red Cell Distribution Width 14.6 % Platelet Count 133 TH/MM3 Mean Platelet Volume 8.1 FL CBC Comment AUTO DIFF Differential Total Cells Counted 100 Neutrophils % (Manual) 88 % Lymphocytes % 9 % Monocytes % 3 % Neutrophils # (Manual) 18.2 TH/MM3 Differential Comment FINAL DIFF MANUAL Platelet Estimate LOW Platelet Morphology Comment NORMAL Red Cell Morphology Comment NORMAL Blood Urea Nitrogen 61 MG/DL Creatinine 1.23 MG/DL Random Glucose 114 MG/DL Total Protein 4.4 GM/DL Albumin 1.2 GM/DL Calcium Level 8.8 MG/DL Phosphorus Level 3.0 MG/DL Magnesium Level 1.8 MG/DL Alkaline Phosphatase 93 U/L Aspartate Amino Transf (AST/SGOT) 10 U/L Alanine Aminotransferase (ALT/SGPT) 22 U/L Total Bilirubin 0.5 MG/DL Sodium Level 151 MEQ/L Chloride Level 116 MEQ/L Carbon Dioxide Level 28.8 MEQ/L Anion Gap 6 MEQ/L Estimat Glomerular Filtration Rate 44 ML/MIN Random Vancomycin Level 18.9 COMMENT Imaging Last Impressions Brain MRI 07/28/17 0000 Signed Impressions: Service Date/Time: Friday, July 28, 2017 14:38 - CONCLUSION: 1. Unremarkable MRI examination the brain. 2. No acute abnormality or interval change. Bob Daly MD Chest X-Ray 07/27/17 0000 Signed Impressions: Service Date/Time: July 10:25 - CONCLUSION: 1. Stable tubes and lines. 2. Stable mild bibasilar airspace disease and trace right pleural effusion. Bob Daly MD Chest CT 07/24/17 0000 Signed Impressions: Service Date/Time: Monday, July 24, 2017 05:36 - CONCLUSION: 1. Stranding in the subcutaneous tissues about the right flank with fluid adjacent to the latissimus dorsi. Stranding extends up into the right breast. Findings could represent developing cellulitis. 2. In addition, there is now a small right-sided effusion with bilateral dependent atelectatic changes. Jerome Brady MD Abdomen/Pelvis CT 07/24/17 0000 Signed Impressions: Service Date/Time: Monday, July 24, 2017 05:36 - CONCLUSION: 1. CT findings concerning for a right sided cellulitis and developing myositis. There is some asymmetric prominence of the latissimus dorsi muscle on the right. Unorganized fluid in the deep subcutaneous tissues adjacent to the muscle belly. No drainable fluid collection, however. 2. Developing dependent areas of consolidation, right greater than left with an associated small right-sided effusion. Jerome Brady MD Head CT 07/22/17 1253 Signed Impressions: Service Date/Time: Saturday, July 22, 2017 13:26 - CONCLUSION: No acute disease. Derrick Henry MD Objective Remarks GENERAL: Elderly female, lying in bed intubated. HEENT: Normocephalic. Atraumatic. Pupils equal, round, reactive, conjugate. Mucous membranes are moist NECK: Trachea is midline. There is no JVD. CHEST: Equal chest rise. Room air. CARDIOVASCULAR: RRR, nl S1, S2 ABDOMEN: Soft, nontender, nondistended, +BS, wound Vac in place. MUSCULOSKELETAL: Pulses 2+. No peripheral edema. Cyanosis of 2-4 toes on right NEUROLOGICAL: Intubated Date of Insertion: Jul 22, 2017 A/P Assessment and Plan Active problems: VDRF s/p Septic shock Right flank severe cellulitis, ? Nec fasc Acute kidney injury Leukocytosis Elevated CK Anemia Thrombocytopenia Hypothyroidism Plan: Plan by systems: Neurologic: Neuro checks per ICU protocol Fentanyl, Versed infusion for sedation and vent synchrony. Daily sedation vacation. D/c Versed 07/22 CT brain: No acute disease Check MRI brain Tylenol 650 mg every 6 hours as needed for pain and/or temperature greater than 100.5 Respiratory: Continue with vent support keep sats >92% On PRVC 10, TV 350 IT:0.8, PEEP:5, FIO2: 30% Bronchodilators, ICU vent bundle. SBT daily as lawrence. Cardiovascular: Monitor HR and BP keep MAP>65mmHg. Taper steroids-On HC 50mg IV Q12 Lactic acid 1.8 from 4.6 CVP monitoring, For 2D echo Renal: Monitor renal function, I/O's, avoid nephrotoxins Renal is following- . On Free water 300ml Q6, monitor sodium level. Add D5W@75ml/hr, monitor sodium level, on Diuril 250mg IV daily per renal. FEN/GI: On Pepcid 10mg BID for GI prophylaxis Resume Tube feeds- Glucerna 1.5 with goal rate 45ml/hr ID: Continue with abx ( Vanco, Clindamycin, Zosyn) ID is following. Monitor for signs of infection s( Fever, WBC) 07/24, 07/27 Wound cx :MRSA 07/24 BC :NGTD 07/23: urine cx: No growth 07/22 BC: NGTD Path report: Abdominal soft tissue excision: Skin and subcutaneous adipose tissue with acute cellulites and multifocal abscess formation 07/27 s/p excisional debridement with vac change of torso and abdomen 07/24 s/p wide excisional debridement of soft tissue infection with VAC placement for necrotizing soft tissue infection of abdomen, right hip area right torso area measuring approximately 32 x 18 inches x 2 inches deep. Surgery -Dr. Dumont. Endocrine: levothyroxine 112 mcg/day on hold. TSH:0.08 on 07/24 Glucose monitoring per ICU protocol. -- Continue SSI medium scale for glycemic control [place]: Cyanosis of toes on right> Likely pressors induced ischemia of toes. Seen by vascular surg- no additional vascular work up needed given palpable pulses, Prophylaxis: GI Prophylaxis Famotidine DVT Prophylaxis -- SCDs Lines: Central line placed on 07/22. Peripheral IVs 2, Left Ax Art line CCT 30 mins Chanda Sierra MD July 29, 2017 10:40
--- NOTE | 2017-07-29 10:56 | HHI.FPPN ---
Subjective Remarks Patient seen and examined this morning. Patient intubated. Sedated. Started tube feedings. (Rishi Meza MD R2) Objective Vitals Vital Signs Date Time Temp Pulse Resp B/P (MAP) Pulse Ox O2 Delivery O2 Flow Rate FiO2 07/29/17 08:29 100 35 07/29/17 08:29 35 07/29/17 08:25 100 35 07/29/17 08:00 35 07/29/17 08:00 74 112/56 (74) 111/53 (72) 07/29/17 08:00 74 07/29/17 08:00 98.3 74 17 112/56 (74) 100 111/53 (72) 07/29/17 06:00 72 07/29/17 04:03 100 35 07/29/17 04:00 97.3 70 14 103/58 (73) 100 110/57 (74) 07/29/17 04:00 70 07/29/17 04:00 35 07/29/17 02:00 71 07/29/17 00:53 97 35 07/29/17 00:00 96.6 72 15 127/73 (91) 100 132/66 (88) 07/29/17 00:00 72 07/29/17 00:00 35 07/28/17 22:00 74 07/28/17 21:00 70 118/66 (83) 126/62 (83) 07/28/17 20:26 98 35 07/28/17 20:00 97.0 80 13 112/58 (76) 100 120/64 (82) 07/28/17 20:00 35 07/28/17 20:00 80 07/28/17 18:00 84 07/28/17 16:23 99 35 07/28/17 16:00 75 07/28/17 16:00 35 07/28/17 16:00 97.8 86 20 156/84 (108) 100 121/101 (108) 07/28/17 14:15 100 100 07/28/17 14:00 74 07/28/17 12:00 97.8 86 20 156/84 (108) 100 121/101 (108) 07/28/17 12:00 75 07/28/17 12:00 35 07/28/17 11:45 100 35 I/O 07/28/17 07/28/17 07/28/17 07/29/17 07/29/17 07/29/17 07:00 15:00 23:00 07:00 15:00 23:00 Intake Total 665 ml 450 ml 500 ml 1025 ml Output Total 1400 ml 2300 ml 1305 ml Balance -735 ml 450 ml -1800 ml -280 ml IV Total 665 ml 450 ml 500 ml 300 ml Tube Feeding 125 ml Tube Irrigant 600 ml Output Urine Total 1000 ml 2000 ml 1125 ml Drainage Total 400 ml 300 ml 180 ml # Bowel Movements 0 0 1 (Rishi Meza MD R2) Result Diagram: 07/29/17 0500 07/29/17 0500 Imaging Last Impressions Brain MRI 07/28/17 0000 Signed Impressions: Service Date/Time: Friday, July 28, 2017 14:38 - CONCLUSION: 1. Unremarkable MRI examination the brain. 2. No acute abnormality or interval change. Bob Daly MD Chest X-Ray 07/27/17 0000 Signed Impressions: Service Date/Time: July 10:25 - CONCLUSION: 1. Stable tubes and lines. 2. Stable mild bibasilar airspace disease and trace right pleural effusion. Bob Daly MD Chest CT 07/24/17 0000 Signed Impressions: Service Date/Time: Monday, July 24, 2017 05:36 - CONCLUSION: 1. Stranding in the subcutaneous tissues about the right flank with fluid adjacent to the latissimus dorsi. Stranding extends up into the right breast. Findings could represent developing cellulitis. 2. In addition, there is now a small right-sided effusion with bilateral dependent atelectatic changes. Jerome Brady MD Abdomen/Pelvis CT 07/24/17 0000 Signed Impressions: Service Date/Time: Monday, July 24, 2017 05:36 - CONCLUSION: 1. CT findings concerning for a right sided cellulitis and developing myositis. There is some asymmetric prominence of the latissimus dorsi muscle on the right. Unorganized fluid in the deep subcutaneous tissues adjacent to the muscle belly. No drainable fluid collection, however. 2. Developing dependent areas of consolidation, right greater than left with an associated small right-sided effusion. Jerome Brady MD Head CT 07/22/17 1253 Signed Impressions: Service Date/Time: Saturday, July 22, 2017 13:26 - CONCLUSION: No acute disease. Derrick Henry MD Objective Remarks GENERAL: Elderly female, lying in bed intubated. NECK: Trachea is midline. There is no JVD. CHEST: Equal chest rise. CARDIOVASCULAR: Regular rhythm. ABDOMEN: Soft, nondistended. Wound vac in place that spans from just distal of the R breast down to the R hip. Measurements are roughly 32 x 18 cm. MUSCULOSKELETAL: Palpable pulses. 2-5 toes of R foot are purple and cool to the touch. Unchanged from prior exam NEUROLOGICAL: Opens eyes to verbal cues, does not localize. (Rishi Meza MD R2) Date of Insertion: Jul 22, 2017 (Rishi Meza MD R2) A/P Assessment and Plan Patient is a 62 year old female who presents to the ED via EMS for evaluation of right-sided abdominal, flank and back erythema, swelling and pain. Patient was found to be hypotensive in transit to hospital with systolic pressures in the 70s. Patient admitted for management of pain and hypotension. Critical care was consulted for pressure support as patient is in severe septic shock. Lactate on admission of 5.1. Patient deteriorated and was intubated on . Surgery performed wide debridement of R torso and placed wound vac. Patient continues to be intubated Family medicine team will monitor socially for now with Dr. Ortiz as ICU is managing. Discharge Planning Unclear at this point, patient remains critically ill (Rishi Meza MD R2) Attending Attestation Pt. seen, discussed with Nurse Mejía. EEG pending. Pt. did not respond to voice or commands today. (Lamar Ortiz MD) Problem List: (1) Severe sepsis ICD Codes: A41.9 - Sepsis, unspecified organism; R65.20 - Severe sepsis without septic shock Status: Acute Plan: Being medically managed by critical care Intubated since 07/24 Suspected source is cellulitis/abdominal wall infection. Wound is growing MRSA. Blood cultures NGTD CT scan reviewed and showing edema and developing myositis Antibiotics: Vancomycin, Zosyn, clindamycin Currently off pressors on 07/26. Palliative care consulted-appreciate assistance (2) Abdominal wall cellulitis ICD Codes: L03.311 - Cellulitis of abdominal wall Plan: Patient presented with abdominal wall pain, see sepsis plan above CT scan on admission showed edema throughout the subcutaneous tissues of the right upper abdomen CT scan on 07/24 concerning for right-sided cellulitis and developing myositis Wide debridement with wound vac placed on 07/24 Excisional debridement and wound vac change 07/27 (3) Hypotension ICD Codes: I95.9 - Hypotension, unspecified Status: Resolved Plan: Currently off all pressors BP stabilized (4) Acute kidney injury ICD Codes: N17.9 - Acute kidney failure, unspecified Status: Acute Plan: Patient admitted with significant SHARONA. Suspected to be secondary to septic shock Has continued to have elevated creatinine during hospitalization, slowly improving Nephrology consulted on 07/24 Improving renal function (5) Toe cyanosis ICD Codes: R23.0 - Cyanosis Status: Acute Plan: Cyanosis of right 4 toes. Likely pressor-induced ischemia Vascular consulted No additional workup due to palpable pulses Monitor for signs of infection (6) Hypothyroidism ICD Codes: E03.9 - Hypothyroidism Status: Chronic Plan: Patient with history of hypothyroidism. SYnthroid on hold (7) GERD (gastroesophageal reflux disease) ICD Codes: K21.9 - Gastroesophageal reflux disease Status: Acute Plan: Patient with history of GERD. * Continue home meds. (8) Fluid, Electrolyte, Nutrition, and Prophylaxis Status: Acute Plan: Fluid: Being managed by critical care. Currently off IV fluids Electrolyte: * Monitor and replete as necessary. Nutrition: * Currently intubated; Tube feeds started DVT Prophylaxis: * SCDs. (Rishi Meza MD R2) Problem Qualifiers (1) Hypotension: Qualified Codes: I95.9 - Hypotension, unspecified Rishi Meza MD R2 July 29, 2017 10:56 Lamar Ortiz MD July 29, 2017 14:46
[2017-07-29] MEDS: DEXTROSE 5% IN WATE 1000ML INJ 1,000 ML IV SCH (11:56)
[2017-07-29] MEDS ORDERED: hydrALAZINE HCL 20 MG/ML VIAL IV PUSH PRN (14:15)
[2017-07-29] MEDS: DILTIAZEM HCL 60 MG TAB PO SCH ×3 (14:15→23:58)
--- NOTE | 2017-07-29 14:42 | HHI.NPPN ---
Subjective Renal Failure: Acute Review of Systems General General Remarks unable to obtain Objective Data Data 07/29/17 07/30/17 19:00 07:00 Output Total 100 ml Balance -100 ml Drainage Total 100 ml Vital Signs Date Time Temp Pulse Resp B/P (MAP) Pulse Ox O2 Delivery O2 Flow Rate FiO2 07/29/17 13:38 100 35 07/29/17 12:00 35 07/29/17 12:00 98.0 93 13 161/76 (104) 100 07/29/17 12:00 90 07/29/17 10:55 100 35 07/29/17 10:00 93 07/29/17 08:29 100 35 07/29/17 08:29 35 07/29/17 08:25 100 35 07/29/17 08:00 35 07/29/17 08:00 74 112/56 (74) 111/53 (72) 07/29/17 08:00 74 07/29/17 08:00 98.3 74 17 112/56 (74) 100 111/53 (72) 07/29/17 06:00 72 07/29/17 04:03 100 35 07/29/17 04:00 97.3 70 14 103/58 (73) 100 110/57 (74) 07/29/17 04:00 70 07/29/17 04:00 35 07/29/17 02:00 71 07/29/17 00:53 97 35 07/29/17 00:00 96.6 72 15 127/73 (91) 100 132/66 (88) 07/29/17 00:00 72 07/29/17 00:00 35 07/28/17 22:00 74 07/28/17 21:00 70 118/66 (83) 126/62 (83) 07/28/17 20:26 98 35 07/28/17 20:00 97.0 80 13 112/58 (76) 100 120/64 (82) 07/28/17 20:00 35 07/28/17 20:00 80 07/28/17 18:00 84 07/28/17 16:23 99 35 07/28/17 16:00 75 07/28/17 16:00 35 07/28/17 16:00 97.8 86 20 156/84 (108) 100 121/101 (108) -: 07/29/17 0500 07/29/17 1345 Tubes & Lines: Terrazas Tubes & Lines Comment wound vac x 2 TLC Drip Comment propofol Physical Exam General Appearance: Well Nourished, Comfortable Throat Throat Exam: Oral Mucosa Lennon & Moist Pulmonary Resp Exam: Clear Bilaterally, Breath Sounds Equal Cardiology CV Exam: Regular, Good Perfusion Gastrointestinal/Abdomen GI Exam: Soft, Non-Tender, Bowel Sounds Present Musculoskeletal MS Exam: Joints Intact, Normal Tone, Unable to Ambulate Integumentary Skin Exam: Warm, Dry Extremeties Extremities Exam: Pedal Pulses Palpable, Trace Edema Neurologic Neuro Exam: Unresponsive, Sedated Assessment/Plan Assessment Summary: SHARONA/Acute Renal Failure Electrolyte Assessment: Hyponatremia Problem List: (1) Acute kidney injury ICD Codes: N17.9 - Acute kidney failure, unspecified Status: Acute Plan: Normal renal function at baseline SHARONA due to sepsis and resulting renal hypoperfusion Renal function continues to improve She is Non oliguric on Diuril 250 mg IV daily D5W 75 cc an hour and water flushes Creatinine has declined Sodium 151 Patient has necrotic wound right pelvic area and necrotic toes on the right side Potassium replacement ordered Follow renal function daily Start Nepro tube feeding Continue supportive care Minimize nephrotoxic agents, dose appropriate to renal function (2) Severe sepsis ICD Codes: A41.9 - Sepsis, unspecified organism; R65.20 - Severe sepsis without septic shock Status: Acute Plan: Necrotizing cellulitis, s/p I&D in OR x 2, most recent 07/27 Antibiotics include Zosyn and Clindamycin, off vancomycin Cultures MRSA (wound) Specimen sent to pathology: cellulitis and multifocal abscess formation (3) Hypernatremia ICD Codes: E87.0 - Hyperosmolality and hypernatremia Plan: Diuresis with Diuril Free water 300 Q6h, tube feeding to be restarted this morning Use hypotonic fluids in needed (4) Hypotension ICD Codes: I95.9 - Hypotension, unspecified Status: Resolved Plan: Improved, off pressure support continue to monitor blood pressure (5) A-fib ICD Codes: I48.91 - Unspecified atrial fibrillation Plan: Off amiodarone, rhythm is regular Plan Patient was seen and examined. Agree with above assessment and plan. Renal function has improved. Free water for hypernatremia. Diuril for diuresis. Problem Qualifiers (1) Hypotension: Qualified Codes: I95.9 - Hypotension, unspecified Dixie Terrell MD July 29, 2017 14:42
[2017-07-29] MEDS: fentaNYL DRIP 250 ML IV PRN (15:27)
--- NOTE | 2017-07-29 15:40 | ECHRPT ---
Indication: LV function CONCLUSIONS The left ventricular systolic function is low normal with an estimated ejection fraction in the rang e of 50- 55%. Wall thickness is measured at the upper limits of normal. Normal left ventricular size. Mitral annular calcification is present. Trace mitral valve regurgitation. There is mild tricuspid valve regurgitation. The estimated pulmonary arterial pressure is 36.6 mmHg. BP: 123 / 57 HR: 85 Rhythm: Sinus MEASUREMENTS (Male / Female) Normal Values Technical Quality:Fair 2D ECHO LV Diastolic Diameter PLAX 4.0 cm 4.2 - 5.9 / 3.9 - 5.3 cm LV Systolic Diameter PLAX 2.8 cm IVS Diastolic Thickness 1.3 cm 0.6 - 1.0 / 0.6 - 0.9 cm LVPW Diastolic Thickness 0.9 cm 0.6 - 1.0 / 0.6 - 0.9 cm LV Relative Wall Thickness 0.5 LVOT Diameter 1.8 cm LA Systolic Diameter LX 2.7 cm 3.0 - 4.0 / 2.7 - 3.8 cm M-MODE Aortic Root Diameter MM 3.0 cm LA Systolic Diameter MM 3.4 cm LA Ao Ratio MM 1.1 AV Cusp Separation MM 1.7 cm DOPPLER AV Peak Velocity 173.0 cm/s AV Peak Gradient 12.0 mmHg LVOT Peak Velocity 105.0 cm/s LVOT Peak Gradient 4.4 mmHg AV Area Cont Eq pk 1.5 cm MV Area PHT 2.8 cm Mitral E Point Velocity 94.8 cm/s Mitral A Point Velocity 94.3 cm/s Mitral E to A Ratio 1.0 LV E' Lateral Velocity 12.9 cm/s Mitral E to LV E' Lateral Ratio 7.3 LV E' Septal Velocity 9.2 cm/s Mitral E to LV E' Septal Ratio 10.3 TR Peak Velocity 258.0 cm/s TR Peak Gradient 26.6 mmHg Right Atrial Pressure 10.0 mmHg Pulmonary Artery Systolic Pressu 36.6 mmHg Right Ventricular Systolic Press 36.6 mmHg FINDINGS LEFT VENTRICLE The left ventricular systolic function is low normal with an estimated ejection fraction in the rang e of 50- 55%. Wall thickness is measured at the upper limits of normal. Normal left ventricular size. RIGHT VENTRICLE Normal right ventricular size and systolic function. LEFT ATRIUM The left atrial size is normal. RIGHT ATRIUM The right atrial size is normal. ATRIAL SEPTUM Thickened atrial septum is noted with morphological features most consistent with a lipomatous atria l septum. AORTA The aortic root and proximal ascending aorta are normal in size on limited imaging. MITRAL VALVE Mitral annular calcification is present. Trace mitral valve regurgitation. AORTIC VALVE Trileaflet aortic valve. No aortic valve stenosis or regurgitation. TRICUSPID VALVE Structurally normal tricuspid valve. There is mild tricuspid valve regurgitation. The estimated pulmonary arterial pressure is 36.6 mmHg. PULMONARY VALVE No pulmonary valve regurgitation or stenosis. VESSELS The inferior vena cava is normal in size. PERICARDIUM No pericardial effusion. Vamsi Ramírez MD (Electronically Signed) Final Date:29 Jul 2017 15:39
--- NOTE | 2017-07-29 15:41 | HHI.IDPN ---
Subjective Subjective Remarks Most of the history was obtained by review of medical records. Patient shortly being wheeled out to the operating room for surgical exploration of the site of necrotizing fasciitis Septic shock. Ms. Eldridge is a 62-year-old female who reportedly has developmental delays per chart review. Patient presented to the emergency department via EMS for evaluation of right-sided abdominal, flank and back erythema swelling and pain. Patient's care provider and power of attorney at law listed on the chart is Mr. Felipe Nagy who can be contacted at [phone]. Patient had earlier reported to others that she was feeling unwell for the past 4 weeks. Patient reported increase in her migraine symptoms. Patient also reported continuous, nonradiating sharps times burning pain over the right upper quadrant that is expanded to include her right flank and back. She denies any trauma to these areas. Patient reported to others prior to being intubated that she had nausea and vomiting associated with decreased appetite. Patient also had reported to others that she was dizzy and lightheaded. Per review of records it appears that patient has had multiple falls as well as has had urinary incontinence at baseline with decreased urine output over the last few days. Patient also reported subjective symptoms such as burning with urination. Per EMS, patient was found to be hypotensive. Systolic pressure was recorded in the 70s. She received fluid in transit with minimal improvement. In the emergency department she was found to have significant erythema,pain and edema from approximately the fifth intercostal space down to the eighth or ninth intercostal space wrapping around from the midline in the back all the way around to just medial to the breast. CT scan of the abdomen and pelvis confirms significant subcutaneous edema, but this area of edema appears to be contained by intact fascial planes, particularly in the midline of the back. Laboratory evidence is significant for a white blood cell count of 27k, creatinine is 3.58, potassium 5.4, bicarb of 17.9, anion gap elevated at 15, BUN of 64, an initial lactate of 5.1. In the emergency department she received 3 L of crystalloid IV fluids. Critical care medicine is consulted to evaluate manage her presumed septic shock secondary to severe cellulitis of the trunk. Overnight critical care medicine was consulted for worsening sepsis and septic shock. Patient had to be intubated and upon evaluation was found to have evidence suggestive of necrotizing fasciitis involving similar areas as reported on the emergency room but had progressed beyond the line of demarcation. Patient was noted to have significant blisters and blackening of the areas. Critical care medicine change the regimen to Zosyn IV, vancomycin IV and added clindamycin IV and placed a surgical consult. Patient was evaluated by Dr. Thor Dumont of surgery and patient is being wheeled to the operating room shortly. At the time of my evaluation patient is in the ICU currently on high-dose Levophed as well as vasopressin with slight decrease in Levophed requirement after addition of clindamycin IV. Urine output is low. No diarrhea. No diffuse rash or skin changes other than as described. Delayed entry patient seen at approximately 11 AM. Overnight events reviewed with RN. Remains in ICU. Off Pressors. No fevers No rash No diarrhea remains intubated. Not much secretions. Moves extremities spontaneously. Antibiotics Zosyn IV Vanco IV Clindamycin IV Lines Line sites with no e.o infection Past Medical History Anxiety Depression Developmental delays - mental handicap Headaches/migraines Hypothyroidism GERD Chest pain Hx of UTIs Renal insufficiency Bladder incontinence Chronic back pain Thyroid surgery EGD - 08/30/16 Cholecystectomy - 03/04/15 D&C Hysterectomy Colonoscopy - 07/30/16 and 08/11/15 Allergies: Coded Allergies: No Known Allergies (Verified Allergy, Unknown, 07/22/17) Objective . Vital Signs Date Time Temp Pulse Resp B/P (MAP) Pulse Ox O2 Delivery O2 Flow Rate FiO2 07/29/17 14:00 97 07/29/17 13:38 100 35 07/29/17 12:00 35 07/29/17 12:00 98.0 93 13 161/76 (104) 100 07/29/17 12:00 90 07/29/17 10:55 100 35 07/29/17 10:00 93 07/29/17 08:29 100 35 07/29/17 08:29 35 07/29/17 08:25 100 35 07/29/17 08:00 35 07/29/17 08:00 74 112/56 (74) 111/53 (72) 07/29/17 08:00 74 07/29/17 08:00 98.3 74 17 112/56 (74) 100 111/53 (72) 07/29/17 06:00 72 07/29/17 04:03 100 35 07/29/17 04:00 97.3 70 14 103/58 (73) 100 110/57 (74) 07/29/17 04:00 70 07/29/17 04:00 35 07/29/17 02:00 71 07/29/17 00:53 97 35 07/29/17 00:00 96.6 72 15 127/73 (91) 100 132/66 (88) 07/29/17 00:00 72 07/29/17 00:00 35 07/28/17 22:00 74 07/28/17 21:00 70 118/66 (83) 126/62 (83) 07/28/17 20:26 98 35 07/28/17 20:00 97.0 80 13 112/58 (76) 100 120/64 (82) 07/28/17 20:00 35 07/28/17 20:00 80 07/28/17 18:00 84 07/28/17 16:23 99 35 07/28/17 16:00 75 07/28/17 16:00 35 07/28/17 16:00 97.8 86 20 156/84 (108) 100 121/101 (108) 07/29/17 07/29/17 07/30/17 15:00 23:00 07:00 Output Total 100 ml Balance -100 ml Drainage Total 100 ml . Laboratory Tests Test 07/28/17 04:11 07/29/17 05:00 White Blood Count 29.2 TH/MM3 20.7 TH/MM3 Red Blood Count 3.08 MIL/MM3 2.76 MIL/MM3 Hemoglobin 8.1 GM/DL 7.4 GM/DL Hematocrit 25.2 % 22.6 % Mean Corpuscular Volume 82.0 FL 81.7 FL Mean Corpuscular Hemoglobin 26.3 PG 26.8 PG Mean Corpuscular Hemoglobin Concent 32.1 % 32.8 % Red Cell Distribution Width 14.9 % 14.6 % Platelet Count 114 TH/MM3 133 TH/MM3 Mean Platelet Volume 7.7 FL 8.1 FL Neutrophils (%) (Auto) 92.8 % Lymphocytes (%) (Auto) 3.1 % Monocytes (%) (Auto) 4.0 % Eosinophils (%) (Auto) 0.0 % Basophils (%) (Auto) 0.1 % Neutrophils # (Auto) 27.1 TH/MM3 Lymphocytes # (Auto) 0.9 TH/MM3 Monocytes # (Auto) 1.2 TH/MM3 Eosinophils # (Auto) 0.0 TH/MM3 Basophils # (Auto) 0.0 TH/MM3 CBC Comment AUTO DIFF AUTO DIFF Differential Comment AUTO DIFF CONFIRMED FINAL DIFF MANUAL Ovalocytes 1+ Differential Total Cells Counted 100 Neutrophils % (Manual) 88 % Lymphocytes % 9 % Monocytes % 3 % Neutrophils # (Manual) 18.2 TH/MM3 Platelet Estimate LOW Platelet Morphology Comment NORMAL Red Cell Morphology Comment NORMAL Laboratory Tests Test 07/28/17 04:11 07/28/17 09:48 07/29/17 01:15 07/29/17 05:00 Blood Urea Nitrogen 63 MG/DL 63 MG/DL 61 MG/DL Creatinine 1.50 MG/DL 1.41 MG/DL 1.23 MG/DL Random Glucose 110 MG/DL 119 MG/DL 114 MG/DL Calcium Level 9.0 MG/DL 9.3 MG/DL 8.8 MG/DL Phosphorus Level 4.9 MG/DL 5.1 MG/DL 3.0 MG/DL Magnesium Level 1.8 MG/DL 1.8 MG/DL Sodium Level 150 MEQ/L 150 MEQ/L 151 MEQ/L Potassium Level 3.1 MEQ/L 3.0 MEQ/L 3.2 MEQ/L 5.0 MEQ/L Chloride Level 112 MEQ/L 112 MEQ/L 116 MEQ/L Carbon Dioxide Level 25.9 MEQ/L 25.5 MEQ/L 28.8 MEQ/L Anion Gap 12 MEQ/L 13 MEQ/L 6 MEQ/L Estimat Glomerular Filtration Rate 35 ML/MIN 38 ML/MIN 44 ML/MIN Total Protein 5.2 GM/DL 4.4 GM/DL Albumin 1.4 GM/DL 1.2 GM/DL Alkaline Phosphatase 113 U/L 93 U/L Aspartate Amino Transf (AST/SGOT) 13 U/L 10 U/L Alanine Aminotransferase (ALT/SGPT) 27 U/L 22 U/L Total Bilirubin 0.6 MG/DL 0.5 MG/DL Test 07/29/17 13:45 Potassium Level 4.3 MEQ/L Microbiology Date/Time Source Procedure Growth Status 07/27/17 15:30 Wound Other Fungal Smear - Final NO FUNGAL ELEMENTS SEEN. Resulted 07/27/17 15:30 Wound Other Fungal Culture Pending Resulted 07/27/17 15:30 Wound Other Acid Fast Stain - Final NO ACID FAST BACILLI SEEN Resulted 07/27/17 15:30 Wound Other Mycobacterial Culture Pending Resulted 07/27/17 15:30 Wound Other Gram Stain - Final Complete 07/27/17 15:30 Wound Culture - Final S. Aureus Mrsa Complete Imaging Last Impressions Chest X-Ray 07/24/17 0000 Signed Impressions: Service Date/Time: Monday, July 24, 2017 04:28 - CONCLUSION: 1. Endotracheal and nasogastric tubes appear to be appropriately positioned. Stable position of left subclavian central venous catheter. 2. Lungs remain clear. Jerome Brady MD Chest CT 07/24/17 0000 Signed Impressions: Service Date/Time: Monday, July 24, 2017 05:36 - CONCLUSION: 1. Stranding in the subcutaneous tissues about the right flank with fluid adjacent to the latissimus dorsi. Stranding extends up into the right breast. Findings could represent developing cellulitis. 2. In addition, there is now a small right-sided effusion with bilateral dependent atelectatic changes. Jerome Brady MD Abdomen/Pelvis CT 07/24/17 0000 Signed Impressions: Service Date/Time: Monday, July 24, 2017 05:36 - CONCLUSION: 1. CT findings concerning for a right sided cellulitis and developing myositis. There is some asymmetric prominence of the latissimus dorsi muscle on the right. Unorganized fluid in the deep subcutaneous tissues adjacent to the muscle belly. No drainable fluid collection, however. 2. Developing dependent areas of consolidation, right greater than left with an associated small right-sided effusion. Jerome Brady MD Head CT 07/22/17 1253 Signed Impressions: Service Date/Time: Saturday, July 22, 2017 13:26 - CONCLUSION: No acute disease. Derrick Henry MD Physical Exam GENERAL: Thin built, well-developed patient, in no apparent distress. SKIN: No generalized maculopapular rash. HEAD: Atraumatic. Normocephalic. No temporal or scalp tenderness. EYES: Pupils equal round and reactive. Extraocular motions intact. No scleral icterus. No injection or drainage. ENT: Intubated. NECK: Trachea midline. Supple, nontender, no meningeal signs. CARDIOVASCULAR: Heart sounds audible. No murmur appreciated. RESPIRATORY: Clear to auscultation. Breath sounds equal bilaterally. No wheezes , rales, or rhonchi. GASTROINTESTINAL: Abdomen soft.Wound vac area noted. Extensive area needing wound vac. Skin discoloration extending into right breast outer quadrants. MUSCULOSKELETAL: Extremities without clubbing, cyanosis, or edema. Bluish discoloration and cold toes on right foot. No joint tenderness, effusion, or edema noted. No calf tenderness. Negative Homans sign bilaterally. NEUROLOGICAL: Sedated. Psych could not be assessed IV line sites with no e.o infection Assessment & Plan Remarks Septic shock with multiorgan dysfunction syndrome Sepsis present on admission Necrotizing fasciitis of the abdominal wall ? History of multiple falls likely the precipitant. Acute rhabdomyolysis Acute renal failure: Prerenal, sepsis, rhabdomyolysis Acute metabolic encephalopathy likely sepsis related. Baseline unknown Leukemoid reaction likely due to worsening sepsis Recommendations: DC Zosyn IV DC Vanco IV Start Dapto IV (Vanco DELMI 2, clinically still has new areas of erythema and e/o infection outside wound vac margin, acute renal failure) Continue clindamycin IV for now. Will reassess after wound vac change if necrosis controlled will reevaluate continuing need based on d/w surgery. Follow cultures Follow clinically Discussed with RN Discussed with Dr. Sterling possible wound VAC change on July 30, 2017. Ellen De La Torre MD July 29, 2017 15:41
[2017-07-29] MEDS: traMADol HCL 50 MG TAB PO PRN ×4 (15:56→23:59)
[2017-07-29] MEDS ORDERED: VANCOMYCIN 1,500 MG/NS 500 ML IV ONE ×2 (17:00)
[2017-07-29] MEDS: SODIUM CHLORIDE 0.9% IV SCH (17:37)
[2017-07-29] MEDS: DAPTOMYCIN IV SCH (17:37)
[2017-07-30] VITALS (20 sets, daily range): BP systolic 111–173; BP diastolic 56–87; PULSE 62–102; RESP 12–18; TEMP 96.8–98.8; O2SAT 100
[2017-07-30] MEDS: CLINDAMYCIN 600 MG/NS PREMIX 50 ML IV SCH ×4 (03:23→20:57)
[2017-07-30] MEDS: INSULIN NovoLIN REGULAR SUPPLEMENTAL SCALE SQ SCH ×5 (03:38→20:58)
[2017-07-30] MEDS: FREE WATER G-TUBE SCH ×5 (05:28→22:59)
[2017-07-30] MEDS: DEXTROSE 5% IN WATE 1000ML INJ 1,000 ML IV SCH ×2 (05:33→22:59)
[2017-07-30] MEDS: DILTIAZEM HCL 60 MG TAB PO SCH ×4 (05:34→22:58)
[2017-07-30] MEDS: traMADol HCL 50 MG TAB PO PRN ×2 (06:00→13:39)
[2017-07-30 06:01] LABS: AUTOMATED NEUTROPHIL # 24.5 TH/MM3 (1.8-7.7); HEMATOCRIT 24.9 % (35.0-46.0); HEMOGLOBIN 7.9 GM/DL (11.6-15.3); LYMPH % 4.7 % (9.0-44.0); LYMPHOCYTE # 1.2 TH/MM3 (1.0-4.8); MEAN CELL VOLUME 83.9 FL (80.0-100.0); MEAN CORPUSCULAR HEMOGLOBIN 26.7 PG (27.0-34.0); MEAN CORPUSCULAR HGB CONC 31.8 % (32.0-36.0); MEAN PLATELET VOLUME 7.9 FL (7.0-11.0); MONO % 2.8 % (0.0-8.0); MONOCYTE # 0.7 TH/MM3 (0-0.9); NEUT % 92.5 % (16.0-70.0); PLATELET COUNT 230 TH/MM3 (150-450); RED BLOOD COUNT 2.97 MIL/MM3 (4.00-5.30); WHITE BLOOD COUNT 26.4 TH/MM3 (4.0-11.0)
[2017-07-30 06:27] LABS: ALBUMIN 1.5 GM/DL (3.4-5.0); ALKALINE PHOSPHATASE 98 U/L (45-117); ALT (GPT) 23 U/L (10-53); AST (GOT) 11 U/L (15-37); BICARBONATE 29.5 MEQ/L (21.0-32.0); BLOOD UREA NITROGEN 41 MG/DL (7-18); CALCIUM 9.1 MG/DL (8.5-10.1); CHLORIDE 112 MEQ/L (98-107); CREATININE 0.88 MG/DL (0.50-1.00); GLOMERULAR FILTRATION RATE 65 ML/MIN (>89); GLUCOSE,RANDOM 178 MG/DL (74-106); MAGNESIUM 1.7 MG/DL (1.5-2.5); PHOSPHORUS 2.6 MG/DL (2.5-4.9); SODIUM (NA) 148 MEQ/L (136-145); TOTAL BILIRUBIN ADULT 0.4 MG/DL (0.2-1.0)
[2017-07-30 07:54] LABS: OVALOCYTES 1+ (NORMAL)
--- NOTE | 2017-07-30 08:01 | HHI.CCPN ---
Subjective Remarks/Hospital Course This is a 62-year-old female with a history of developmental delay and recurrent urinary tract infections who presents with new onset right-sided abdominal and flank pain. Per the [facility] service admission note this is been going on for approximately 4 weeks. Patient has a history of developmental delay and is difficult to get a complete history from her, no analysis with her on my evaluation. On my evaluation she endorses flank pain radiating around to her chest. She endorses subjective chills. Denies recent fevers to me. Also endorses nausea, vomiting. In the emergency department she was found to have significant erythema, rubor, dolor, and edema from approximately the fifth intercostal space down to the eighth or ninth intercostal space wrapping around from the midline in the back all the way around to just medial to the breast. CT scan of the abdomen and pelvis confirms significant subcutaneous edema, but this area of edema appears to be contained by intact fascial planes, particularly in the midline of the back. Laboratory evidence is significant for a white blood cell count of 27k, creatinine is 3.58, potassium 5.4, bicarb of 17.9, anion gap elevated at 15, BUN of 64, an initial lactate of 5.1. In the emergency department she received 3 L of crystalloid IV fluids. Despite this she is hypotensive with a mean arterial pressure of 51. Critical care medicine is consulted to evaluate manage her presumed septic shock secondary to severe cellulitis of the trunk. I have given her an additional liter of crystalloid and then placed central venous access, see separate procedure note for details. In addition her lactate is starting to clear and is now 2.9 with an more currently pending, however it is not clearing fast enough and she remains oliguric. I placed a [place] for accurate hourly I's and O's. The remainder of the review systems for the patient is negative except documented in the HPI, although this is severely limited by her baseline developmental delay. Subjective 07/23: Patient remains on vasopressors, noted metabolic acidosis, bicarbonate level of 15. Sodium bicarbonate infusion initiated. 07/24 Patient was intubated early this morning now on Vasopressin and Neosyn 300 mics in addition patient is on Amio and Bicarb drips. WBC increased 31. CT abd/pelvis showed right sided cellulites and developing myositis. 07/25 Patient went to OR yesterday s/p wide excisional debridement of soft tissue infection with VAC placement for necrotizing soft tissue infection of abdomen, right hip area right torso area measuring approximately 32 x 18 inches x 2 inches deep. She remains on Vasopressin 0.04 and Neosyn down to 120 mics. On Amio drip. 07/26 No events overnight. Off all pressors, WBC is trending down. On Amio drip. 07/27 Patient remains intubated for return to OR today and wound vac exchange. 07/28 Patient s/p excisional debridement with vac change yesterday intubated and sedated with Fentanyl infusion. 07/29 Patient remains intubated and sedated with Fentanyl and Versed drips. Afebrile. 07/30 No events overnight. Patient remaisn sedatd with Fentnayl drip and intubated. For OR today for further debridement and wound vac exchange. Afebrile. Objective Vital Signs Date Time Temp Pulse Resp B/P (MAP) Pulse Ox O2 Delivery O2 Flow Rate FiO2 07/30/17 06:00 96 07/30/17 04:00 96.8 12 111/56 (74) 100 07/30/17 04:00 35 Intake and Output 07/30/17 07/30/17 07/31/17 08:00 16:00 00:00 Intake Total 1171 ml Output Total 1150 ml Balance 21 ml Result Diagram: 07/30/17 0500 07/30/17 0500 Other Results Laboratory Tests Test 07/29/17 13:45 07/30/17 05:00 Potassium Level 4.3 MEQ/L 4.1 MEQ/L Total Creatine Kinase 37 U/L White Blood Count 26.4 TH/MM3 Red Blood Count 2.97 MIL/MM3 Hemoglobin 7.9 GM/DL Hematocrit 24.9 % Mean Corpuscular Volume 83.9 FL Mean Corpuscular Hemoglobin 26.7 PG Mean Corpuscular Hemoglobin Concent 31.8 % Red Cell Distribution Width 15.0 % Platelet Count 230 TH/MM3 Mean Platelet Volume 7.9 FL Neutrophils (%) (Auto) 92.5 % Lymphocytes (%) (Auto) 4.7 % Monocytes (%) (Auto) 2.8 % Eosinophils (%) (Auto) 0.0 % Basophils (%) (Auto) 0.0 % Neutrophils # (Auto) 24.5 TH/MM3 Lymphocytes # (Auto) 1.2 TH/MM3 Monocytes # (Auto) 0.7 TH/MM3 Eosinophils # (Auto) 0.0 TH/MM3 Basophils # (Auto) 0.0 TH/MM3 CBC Comment AUTO DIFF Differential Comment AUTO DIFF CONFIRMED Platelet Estimate LOW Platelet Morphology Comment NORMAL Ovalocytes 1+ Blood Urea Nitrogen 41 MG/DL Creatinine 0.88 MG/DL Random Glucose 178 MG/DL Total Protein 5.0 GM/DL Albumin 1.5 GM/DL Calcium Level 9.1 MG/DL Phosphorus Level 2.6 MG/DL Magnesium Level 1.7 MG/DL Alkaline Phosphatase 98 U/L Aspartate Amino Transf (AST/SGOT) 11 U/L Alanine Aminotransferase (ALT/SGPT) 23 U/L Total Bilirubin 0.4 MG/DL Sodium Level 148 MEQ/L Chloride Level 112 MEQ/L Carbon Dioxide Level 29.5 MEQ/L Anion Gap 7 MEQ/L Estimat Glomerular Filtration Rate 65 ML/MIN Imaging Last Impressions Brain MRI 07/28/17 0000 Signed Impressions: Service Date/Time: Friday, July 28, 2017 14:38 - CONCLUSION: 1. Unremarkable MRI examination the brain. 2. No acute abnormality or interval change. Bob Daly MD Chest X-Ray 07/27/17 0000 Signed Impressions: Service Date/Time: July 10:25 - CONCLUSION: 1. Stable tubes and lines. 2. Stable mild bibasilar airspace disease and trace right pleural effusion. Bob Daly MD Chest CT 07/24/17 0000 Signed Impressions: Service Date/Time: Monday, July 24, 2017 05:36 - CONCLUSION: 1. Stranding in the subcutaneous tissues about the right flank with fluid adjacent to the latissimus dorsi. Stranding extends up into the right breast. Findings could represent developing cellulitis. 2. In addition, there is now a small right-sided effusion with bilateral dependent atelectatic changes. Jerome Brady MD Abdomen/Pelvis CT 07/24/17 0000 Signed Impressions: Service Date/Time: Monday, July 24, 2017 05:36 - CONCLUSION: 1. CT findings concerning for a right sided cellulitis and developing myositis. There is some asymmetric prominence of the latissimus dorsi muscle on the right. Unorganized fluid in the deep subcutaneous tissues adjacent to the muscle belly. No drainable fluid collection, however. 2. Developing dependent areas of consolidation, right greater than left with an associated small right-sided effusion. Jerome Brady MD Head CT 07/22/17 1253 Signed Impressions: Service Date/Time: Saturday, July 22, 2017 13:26 - CONCLUSION: No acute disease. Derrick Henry MD Objective Remarks GENERAL: Elderly female, lying in bed intubated. HEENT: Normocephalic. Atraumatic. Pupils equal, round, reactive, conjugate. Mucous membranes are moist NECK: Trachea is midline. There is no JVD. CHEST: Equal chest rise. Room air. CARDIOVASCULAR: RRR, nl S1, S2 ABDOMEN: Soft, nontender, nondistended, +BS, wound Vac in place. MUSCULOSKELETAL: Pulses 2+. No peripheral edema. Cyanosis of 2-4 toes on right NEUROLOGICAL: Intubated Date of Insertion: Jul 22, 2017 A/P Assessment and Plan Active problems: VDRF s/p Septic shock Right flank severe cellulitis, ? Nec fasc Acute kidney injury Leukocytosis Elevated CK Anemia Thrombocytopenia Hypothyroidism Plan: Plan by systems: Neurologic: Neuro checks per ICU protocol Fentanyl, Versed infusion for sedation and vent synchrony. Daily sedation vacation. D/c Versed 07/22 CT brain: No acute disease Check MRI brain Tylenol 650 mg every 6 hours as needed for pain and/or temperature greater than 100.5 Respiratory: Continue with vent support keep sats >92% On PRVC 10, TV 350 IT:0.8, PEEP:5, FIO2: 30% Bronchodilators, ICU vent bundle. SBT daily as lawrence. Check CXR Cardiovascular: Monitor HR and BP keep MAP>65mmHg. Taper steroids-On HC 50mg IV Q12 Lactic acid 1.8 from 4.6 CVP monitoring, For 2D echo Renal: Monitor renal function, I/O's, avoid nephrotoxins Renal is following- . On Free water 300ml Q6, monitor sodium level. D5W@75ml/hr, monitor sodium level, on Diuril 250mg IV daily per renal. FEN/GI: On Pepcid 10mg BID for GI prophylaxis NPO for OR today (Tube feeds- Glucerna 1.5 with goal rate 45ml/hr ) ID: Continue with abx (Clindamycin, Daptomycin) ID is following. Monitor for signs of infections( Fever, WBC) 07/24, 07/27 Wound cx :MRSA 07/24 BC :NGTD 07/23: urine cx: No growth 07/22 BC: NGTD Patient is scheduled for OR today for further debridement Path report: Abdominal soft tissue excision: Skin and subcutaneous adipose tissue with acute cellulites and multifocal abscess formation 07/27 s/p excisional debridement with vac change of torso and abdomen 07/24 s/p wide excisional debridement of soft tissue infection with VAC placement for necrotizing soft tissue infection of abdomen, right hip area right torso area measuring approximately 32 x 18 inches x 2 inches deep. Surgery -Dr. Dumont. Endocrine: levothyroxine 112 mcg/day on hold. TSH:0.08 on 07/24 Glucose monitoring per ICU protocol. -- Continue SSI medium scale for glycemic control [place]: Cyanosis of toes on right> Likely pressors induced ischemia of toes. Seen by vascular surg- no additional vascular work up needed given palpable pulses, Prophylaxis: GI Prophylaxis Famotidine DVT Prophylaxis -- SCDs Lines: Central line placed on 07/22. Peripheral IVs 2, CCT 30 mins Chanda Sierra MD July 30, 2017 08:00
--- NOTE | 2017-07-30 08:46 | RADRPT ---
EXAM DATE/TIME: 07/30/2017 08:14 [place] COMPARISON: CHEST SINGLE AP, July 27, 2017, 10:25. INDICATIONS : Difficulty breathing. MEDICAL HISTORY : Diabetes mellitus type II. Hysterectomy SURGICAL HISTORY : Hysterectomy. ENCOUNTER: Subsequent ACUITY: 3 days PAIN SCORE: Non-responsive. LOCATION: Bilateral chest FINDINGS: Portable AP view of the chest demonstrates a normal-sized cardiac silhouette. Endotracheal tube, left subclavian central line, and nasogastric tube remain present. Multiple EKG lines overlie the patient on the right. Lungs are underinflated with likely atelectasis at the bases. No pneumothorax or defin ite effusion is seen. CONCLUSION: Underinflation with atelectasis at the lung bases. Otherwise, no acute finding is seen given the tech nique. Derrick García MD on July 30, 2017 at 8:43 Board Certified Radiologist. This report was verified electronically.
[2017-07-30] MEDS: CHLORHEXIDINE 0.12% (ORAL KIT) 15 ML CUP MT SCH ×2 (08:58→20:00)
[2017-07-30] MEDS: SODIUM CHLORIDE 0.9% FLUSH 10 ML FLUSH IV FLUSH SCH ×2 (08:59→21:00)
[2017-07-30] MEDS: CHLOROTHIAZIDE SOD 500 MG VIAL IV SCH (08:59)
[2017-07-30] MEDS: BUDESONIDE 9 MG PO SCH (09:00)
[2017-07-30] MEDS: HYDROCORTISONE SOD SUCCINATE 100 MG VIAL IV PUSH SCH ×2 (09:00→20:57)
[2017-07-30] MEDS: MULTIVITAMIN-OPHTHALMIC 1 TAB PO SCH (09:00)
[2017-07-30] MEDS: CALCIUM/VITAMIN D 250 MG/125 U TAB PO SCH (09:00)
[2017-07-30] MEDS: FAMOTIDINE 20 MG TAB PO SCH ×2 (09:00→20:57)
[2017-07-30] MEDS: DOCUSATE SODIUM 50 MG/SENNA 8.6 MG TAB PO SCH ×2 (09:01→20:57)
[2017-07-30 10:31] LABS: INTERNATIONAL NORMALIZED RATIO 1.2 RATIO; PROTHROMBIN TIME - PATIENT 12.5 SEC (9.8-11.6)
[2017-07-30] MEDS: fentaNYL DRIP 250 ML IV PRN ×2 (10:54→22:58)
--- NOTE | 2017-07-30 11:25 | HHI.PR ---
Immediate Post Op Note Procedure Date: July 30, 2017 Pre Op Diagnosis: necrotizing soft tissue infection, abdomen, torso back Post Op Diagnosis: same Surgeon: Tip Dumont MD Mis Specialist(s): see or sheet Procedure: vac change Findings: minimal fibrinous exudate Complications: none Specimen(s) removed: none Estimated blood loss: 10cc Anesthesia: General Drains: Hemovac Patient to: Other Patient Condition: Poor Tip Dumont MD July 30, 2017 11:25
--- NOTE | 2017-07-30 13:35 | MG ---
cc: Jose Soriano MD EEG NUMBER: [id number] INDICATION: Intubated, septic shock, cellulitis. Pepcid. DESCRIPTION: Recording shows a diffuse 6-8 Hz rhythm. There were no hemisphere asymmetries. No epileptiform or seizure activity was noted. Photic stimulation was performed without posterior driving. Some head shaking was seen, but did not correlate with any seizure activity, nor did some left arm movement. IMPRESSION: A normal EEG. No evidence for a focal or diffuse abnormality overall, except for some mild diffuse occasional theta slowing. Jose Soriano MD DJM/TL , 01:11 PM , 01:34 PM
[2017-07-30] MEDS ORDERED: ALTEPLASE RECOMBINANT 2 MG VIAL IV FLUSH ONE (14:15)
--- NOTE | 2017-07-30 14:44 | HHI.NPPN ---
Subjective Renal Failure: Acute Review of Systems General General Remarks unable to obtain Objective Data Data 07/30/17 07/31/17 19:00 07:00 Intake Total 400 ml Output Total 5 ml Balance 395 ml IV Total 400 ml Estimated Blood Loss 5 ml Vital Signs Date Time Temp Pulse Resp B/P (MAP) Pulse Ox O2 Delivery O2 Flow Rate FiO2 07/30/17 13:38 100 35 07/30/17 11:00 100 07/30/17 10:26 100 35 07/30/17 10:00 99 07/30/17 08:02 100 35 07/30/17 08:00 97 07/30/17 08:00 35 07/30/17 08:00 98.4 97 17 164/87 (112) 100 07/30/17 06:00 96 07/30/17 04:00 96.8 79 12 111/56 (74) 100 07/30/17 04:00 79 07/30/17 04:00 35 07/30/17 03:40 100 35 07/30/17 02:00 76 07/30/17 00:17 100 35 07/30/17 00:00 98.6 102 16 173/85 (114) 100 07/30/17 00:00 102 07/30/17 00:00 35 07/29/17 22:00 101 07/29/17 20:00 100 07/29/17 20:00 98.6 100 16 155/83 (107) 100 Arterial Line 07/29/17 20:00 35 07/29/17 19:36 100 35 07/29/17 18:00 102 07/29/17 16:42 100 35 07/29/17 16:00 35 07/29/17 16:00 98.3 74 17 112/56 (74) 100 111/53 (72) 07/29/17 16:00 74 07/29/17 16:00 99 07/29/17 16:00 98.5 99 15 148/71 (96) 100 Arterial Line 07/29/17 16:00 35 -: 07/30/17 0500 07/30/17 0500 Tubes & Lines: [place] Tubes & Lines Comment wound vac x 2 TLC Drip Comment propofol Physical Exam General Appearance: Well Nourished, Comfortable Throat Throat Exam: Oral Mucosa [place] & Moist Pulmonary Resp Exam: Clear Bilaterally, Breath Sounds Equal Cardiology CV Exam: Regular, Good Perfusion Gastrointestinal/Abdomen GI Exam: Soft, Non-Tender, Bowel Sounds Present Musculoskeletal MS Exam: Joints Intact, Normal Tone, Unable to Ambulate Integumentary Skin Exam: Warm, Dry Extremeties Extremities Exam: Pedal Pulses Palpable, Trace Edema Neurologic Neuro Exam: Unresponsive, Sedated Assessment/Plan Assessment Summary: SHARONA/Acute Renal Failure Electrolyte Assessment: Hyponatremia Problem List: (1) Acute kidney injury ICD Codes: N17.9 - Acute kidney failure, unspecified Status: Acute Plan: Normal renal function at baseline SHAROAN due to sepsis and resulting renal hypoperfusion Renal function continues to improve She is Non oliguric on Diuril 250 mg IV daily D5W 75 cc an hour and water flushes Creatinine has declined Sodium 148 Patient has necrotic wound right pelvic area and necrotic toes on the right side Potassium replacement ordered Follow renal function daily Minimize nephrotoxic agents, dose appropriate to renal function Dr. Robert to follow (2) Severe sepsis ICD Codes: A41.9 - Sepsis, unspecified organism; R65.20 - Severe sepsis without septic shock Status: Acute Plan: Necrotizing cellulitis, s/p I&D in OR x 2, most recent 07/27 Antibiotics include Zosyn and Clindamycin, off vancomycin Cultures MRSA (wound) Specimen sent to pathology: cellulitis and multifocal abscess formation (3) Hypernatremia ICD Codes: E87.0 - Hyperosmolality and hypernatremia Plan: Diuresis with Diuril Free water 300 Q6h, tube feeding to be restarted this morning Use hypotonic fluids in needed (4) Hypotension ICD Codes: I95.9 - Hypotension, unspecified Status: Resolved Plan: Improved, off pressure support continue to monitor blood pressure (5) A-fib ICD Codes: I48.91 - Unspecified atrial fibrillation Plan: Off amiodarone, rhythm is regular Plan Patient was seen and examined. Agree with above assessment and plan. Renal function has improved. Free water for hypernatremia. Diuril for diuresis. Problem Qualifiers (1) Hypotension: Qualified Codes: I95.9 - Hypotension, unspecified Dixie Terrell MD July 30, 2017 14:44
[2017-07-30] MEDS: MORPHINE SULFATE 4 MG/ML INJ IV PUSH PRN (16:33)
[2017-07-30] MEDS: DAPTOMYCIN IV SCH (17:43)
[2017-07-30] MEDS: SODIUM CHLORIDE 0.9% IV SCH (17:43)
[2017-07-31] VITALS (18 sets, daily range): BP systolic 93–123; BP diastolic 52–60; PULSE 68–110; RESP 13–17; TEMP 97.8–98.8; O2SAT 100
[2017-07-31] MEDS: MORPHINE SULFATE 4 MG/ML INJ IV PUSH PRN (01:51)
[2017-07-31] MEDS: INSULIN NovoLIN REGULAR SUPPLEMENTAL SCALE SQ SCH ×6 (04:00→19:47)
[2017-07-31] MEDS: MIDAZOLAM 50 MG/50 ML INJ 50 ML IV PRN ×2 (04:08→17:59)
[2017-07-31] MEDS: FREE WATER G-TUBE SCH ×3 (04:18→17:58)
[2017-07-31] MEDS: DILTIAZEM HCL 60 MG TAB PO SCH ×3 (04:18→17:58)
[2017-07-31] MEDS: CLINDAMYCIN 600 MG/NS PREMIX 50 ML IV SCH ×4 (04:18→21:15)
[2017-07-31 04:21] LABS: AUTOMATED NEUTROPHIL # 16.4 TH/MM3 (1.8-7.7); BASOPHIL % 0.1 % (0.0-2.0); HEMATOCRIT 22.6 % (35.0-46.0); HEMOGLOBIN 7.2 GM/DL (11.6-15.3); LYMPH % 5.5 % (9.0-44.0); MEAN CELL VOLUME 84.4 FL (80.0-100.0); MEAN CORPUSCULAR HGB CONC 31.9 % (32.0-36.0); MEAN PLATELET VOLUME 7.9 FL (7.0-11.0); MONO % 1.9 % (0.0-8.0); MONOCYTE # 0.3 TH/MM3 (0-0.9); NEUT % 92.5 % (16.0-70.0); PLATELET COUNT 241 TH/MM3 (150-450); RED BLOOD COUNT 2.67 MIL/MM3 (4.00-5.30); RED CELL DISTRIBUTION WIDTH 14.8 % (11.6-17.2); WHITE BLOOD COUNT 17.7 TH/MM3 (4.0-11.0)
[2017-07-31 04:41] LABS: CALCIUM 8.7 MG/DL (8.5-10.1); CREATININE 0.75 MG/DL (0.50-1.00)
--- NOTE | 2017-07-31 07:51 | HHI.CCPN ---
Subjective Remarks/Hospital Course This is a 62-year-old female with a history of developmental delay and recurrent urinary tract infections who presents with new onset right-sided abdominal and flank pain. Per the [facility] service admission note this is been going on for approximately 4 weeks. Patient has a history of developmental delay and is difficult to get a complete history from her, no analysis with her on my evaluation. On my evaluation she endorses flank pain radiating around to her chest. She endorses subjective chills. Denies recent fevers to me. Also endorses nausea, vomiting. In the emergency department she was found to have significant erythema, rubor, dolor, and edema from approximately the fifth intercostal space down to the eighth or ninth intercostal space wrapping around from the midline in the back all the way around to just medial to the breast. CT scan of the abdomen and pelvis confirms significant subcutaneous edema, but this area of edema appears to be contained by intact fascial planes, particularly in the midline of the back. Laboratory evidence is significant for a white blood cell count of 27k, creatinine is 3.58, potassium 5.4, bicarb of 17.9, anion gap elevated at 15, BUN of 64, an initial lactate of 5.1. In the emergency department she received 3 L of crystalloid IV fluids. Despite this she is hypotensive with a mean arterial pressure of 51. Critical care medicine is consulted to evaluate manage her presumed septic shock secondary to severe cellulitis of the trunk. I have given her an additional liter of crystalloid and then placed central venous access, see separate procedure note for details. In addition her lactate is starting to clear and is now 2.9 with an more currently pending, however it is not clearing fast enough and she remains oliguric. I placed a [place] for accurate hourly I's and O's. The remainder of the review systems for the patient is negative except documented in the HPI, although this is severely limited by her baseline developmental delay. Subjective 07/23: Patient remains on vasopressors, noted metabolic acidosis, bicarbonate level of 15. Sodium bicarbonate infusion initiated. 07/24 Patient was intubated early this morning now on Vasopressin and Neosyn 300 mics in addition patient is on Amio and Bicarb drips. WBC increased 31. CT abd/pelvis showed right sided cellulites and developing myositis. 07/25 Patient went to OR yesterday s/p wide excisional debridement of soft tissue infection with VAC placement for necrotizing soft tissue infection of abdomen, right hip area right torso area measuring approximately 32 x 18 inches x 2 inches deep. She remains on Vasopressin 0.04 and Neosyn down to 120 mics. On Amio drip. 07/26 No events overnight. Off all pressors, WBC is trending down. On Amio drip. 07/27 Patient remains intubated for return to OR today and wound vac exchange. 07/28 Patient s/p excisional debridement with vac change yesterday intubated and sedated with Fentanyl infusion. 07/29 Patient remains intubated and sedated with Fentanyl and Versed drips. Afebrile. 07/30 No events overnight. Patient remains sedated with Fentanyl drip and intubated. For OR today for further debridement and wound vac exchange. Afebrile. 07/31 Patient went to OR yesterday for vac exchange, Afebrile, WBC is trending down, Intubated and now sedated with Fentanyl and Versed 2mg/hr Objective Vital Signs Date Time Temp Pulse Resp B/P (MAP) Pulse Ox O2 Delivery O2 Flow Rate FiO2 07/31/17 06:00 88 07/31/17 04:27 100 35 07/31/17 04:00 98.4 13 109/55 (73) Intake and Output 07/31/17 07/31/17 08/01/17 08:00 16:00 00:00 Intake Total 1375 ml Output Total 1250 ml Balance 125 ml Result Diagram: 07/31/17 0341 07/31/17 0341 Other Results Laboratory Tests Test 07/30/17 09:50 07/31/17 03:41 Prothrombin Time 12.5 SEC Prothromb Time International Ratio 1.2 RATIO White Blood Count 17.7 TH/MM3 Red Blood Count 2.67 MIL/MM3 Hemoglobin 7.2 GM/DL Hematocrit 22.6 % Mean Corpuscular Volume 84.4 FL Mean Corpuscular Hemoglobin 27.0 PG Mean Corpuscular Hemoglobin Concent 31.9 % Red Cell Distribution Width 14.8 % Platelet Count 241 TH/MM3 Mean Platelet Volume 7.9 FL Neutrophils (%) (Auto) 92.5 % Lymphocytes (%) (Auto) 5.5 % Monocytes (%) (Auto) 1.9 % Eosinophils (%) (Auto) 0.0 % Basophils (%) (Auto) 0.1 % Neutrophils # (Auto) 16.4 TH/MM3 Lymphocytes # (Auto) 1.0 TH/MM3 Monocytes # (Auto) 0.3 TH/MM3 Eosinophils # (Auto) 0.0 TH/MM3 Basophils # (Auto) 0.0 TH/MM3 CBC Comment DIFF FINAL Differential Comment Blood Urea Nitrogen 27 MG/DL Creatinine 0.75 MG/DL Random Glucose 219 MG/DL Calcium Level 8.7 MG/DL Sodium Level 147 MEQ/L Potassium Level 3.7 MEQ/L Chloride Level 109 MEQ/L Carbon Dioxide Level 30.0 MEQ/L Anion Gap 8 MEQ/L Estimat Glomerular Filtration Rate 78 ML/MIN Imaging Last Impressions Chest X-Ray 07/30/17 0000 Signed Impressions: Service Date/Time: Sunday, July 30, 2017 08:14 - CONCLUSION: Underinflation with atelectasis at the lung bases. Otherwise, no acute finding is seen given the technique. Derrick García MD Brain MRI 07/28/17 0000 Signed Impressions: Service Date/Time: Friday, July 28, 2017 14:38 - CONCLUSION: 1. Unremarkable MRI examination the brain. 2. No acute abnormality or interval change. Bob Daly MD Chest CT 07/24/17 0000 Signed Impressions: Service Date/Time: Monday, July 24, 2017 05:36 - CONCLUSION: 1. Stranding in the subcutaneous tissues about the right flank with fluid adjacent to the latissimus dorsi. Stranding extends up into the right breast. Findings could represent developing cellulitis. 2. In addition, there is now a small right-sided effusion with bilateral dependent atelectatic changes. Jerome Brady MD Abdomen/Pelvis CT 07/24/17 0000 Signed Impressions: Service Date/Time: Monday, July 24, 2017 05:36 - CONCLUSION: 1. CT findings concerning for a right sided cellulitis and developing myositis. There is some asymmetric prominence of the latissimus dorsi muscle on the right. Unorganized fluid in the deep subcutaneous tissues adjacent to the muscle belly. No drainable fluid collection, however. 2. Developing dependent areas of consolidation, right greater than left with an associated small right-sided effusion. Jerome Brady MD Head CT 07/22/17 1253 Signed Impressions: Service Date/Time: Saturday, July 22, 2017 13:26 - CONCLUSION: No acute disease. Derrick Henry MD Objective Remarks GENERAL: Elderly female, lying in bed intubated. HEENT: Normocephalic. Atraumatic. Pupils equal, round, reactive, conjugate. Mucous membranes are moist NECK: Trachea is midline. There is no JVD. CHEST: Equal chest rise. Room air. CARDIOVASCULAR: RRR, nl S1, S2 ABDOMEN: Soft, nontender, nondistended, +BS, wound Vac in place. MUSCULOSKELETAL: Pulses 2+. No peripheral edema. Cyanosis of 2-4 toes on right NEUROLOGICAL: Intubated Date of Insertion: Jul 22, 2017 A/P Assessment and Plan Active problems: VDRF s/p Septic shock Right flank severe cellulitis, ? Nec fasc Acute kidney injury Leukocytosis Elevated CK Anemia Thrombocytopenia Hypothyroidism Plan: Plan by systems: Neurologic: Neuro checks per ICU protocol Fentanyl, Versed infusion for sedation and vent synchrony. Daily sedation vacation. 07/22 CT brain: No acute disease MRI brain 07/28 Unremarkable Tylenol 650 mg every 6 hours as needed for pain and/or temperature greater than 100.5 Respiratory: Continue with vent support keep sats >92% On PRVC 10, TV 350 IT:0.8, PEEP:5, FIO2: 30% Bronchodilators, ICU vent bundle. SBT daily as lawrence. CXR 07/30: Atelectasis at lung bases Cardiovascular: Monitor HR and BP keep MAP>65mmHg. Taper steroids-Decrease HC 25mg IV Q12 Lactic acid 1.8 from 4.6 Echo showed EF 50-55% Renal: Monitor renal function, I/O's, avoid nephrotoxins Renal is following- . On Free water 300ml Q6, monitor sodium level. Decrease D5W@42ml/hr, monitor sodium level, on Diuril 250mg IV daily per renal. FEN/GI: On Pepcid 10mg BID for GI prophylaxis Resume Tube feeds- Glucerna 1.5 with goal rate 45ml/hr ) ID: Continue with abx (Clindamycin, Daptomycin) ID is following. Monitor for signs of infections( Fever, WBC) WBC is trending down 07/24, 07/27 Wound cx :MRSA 07/24 BC :NGTD 07/23: urine cx: No growth 07/22 BC: NGTD Patient is scheduled for OR today for further debridement Path report: Abdominal soft tissue excision: Skin and subcutaneous adipose tissue with acute cellulites and multifocal abscess formation 07/30 Wound vac exchange 07/27 s/p excisional debridement with vac change of torso and abdomen 07/24 s/p wide excisional debridement of soft tissue infection with VAC placement for necrotizing soft tissue infection of abdomen, right hip area right torso area measuring approximately 32 x 18 inches x 2 inches deep. Surgery -Dr. Dumont. Heme: Monitor CBC, will transfuse 1u PRBC for Hgb 7.2 Endocrine: levothyroxine 112 mcg/day on hold. TSH:0.08 on 07/24 Glucose monitoring per ICU protocol. -- Continue SSI medium scale for glycemic control [place]: Cyanosis of toes on right> Likely pressors induced ischemia of toes. Seen by vascular surg- no additional vascular work up needed given palpable pulses, Prophylaxis: GI Prophylaxis Famotidine DVT Prophylaxis -- SCDs Lines: Central line placed on 07/22. Peripheral IVs 2, CCT 30 mins Chanda Sierra MD July 31, 2017 07:51
[2017-07-31] MEDS: CHLORHEXIDINE 0.12% (ORAL KIT) 15 ML CUP MT SCH ×2 (08:00→19:47)
[2017-07-31] MEDS: FAMOTIDINE 20 MG TAB PO SCH ×2 (08:27→21:15)
[2017-07-31] MEDS: CALCIUM/VITAMIN D 250 MG/125 U TAB PO SCH (08:27)
[2017-07-31] MEDS: HYDROCORTISONE SOD SUCCINATE 100 MG VIAL IV PUSH SCH ×2 (08:27→21:14)
[2017-07-31] MEDS: SODIUM CHLORIDE 0.9% FLUSH 10 ML FLUSH IV FLUSH SCH ×2 (08:27→21:15)
[2017-07-31] MEDS: MULTIVITAMIN-OPHTHALMIC 1 TAB PO SCH (08:27)
[2017-07-31] MEDS: CHLOROTHIAZIDE SOD 500 MG VIAL IV SCH (08:52)
[2017-07-31] MEDS: BUDESONIDE 9 MG PO SCH (09:00)
[2017-07-31] MEDS: DOCUSATE SODIUM 50 MG/SENNA 8.6 MG TAB PO SCH ×2 (09:00→21:00)
[2017-07-31] MEDS: fentaNYL DRIP 250 ML IV PRN ×2 (09:10→19:28)
--- NOTE | 2017-07-31 11:41 | HHI.NPPN ---
Subjective Renal Failure: Acute Interval History patient's renal function has improved. Hypernatremia persists, but improved. Review of Systems General General Remarks unable to obtain Objective Data Data Vital Signs Date Time Temp Pulse Resp B/P (MAP) Pulse Ox O2 Delivery O2 Flow Rate FiO2 07/31/17 11:35 100 35 07/31/17 07:43 100 35 07/31/17 06:00 88 07/31/17 04:27 100 35 07/31/17 04:00 110 07/31/17 04:00 98.4 110 13 109/55 (73) 100 07/31/17 04:00 35 07/31/17 02:00 102 07/31/17 01:32 100 35 07/31/17 00:00 98.7 73 15 123/60 (81) 100 07/31/17 00:00 73 07/31/17 00:00 35 07/30/17 22:00 90 07/30/17 21:48 100 35 07/30/17 20:00 35 07/30/17 20:00 98.8 72 14 124/60 (81) 100 07/30/17 20:00 72 07/30/17 18:00 85 07/30/17 17:45 100 35 07/30/17 16:00 98.4 85 16 161/77 (105) 100 07/30/17 16:00 62 07/30/17 16:00 35 07/30/17 14:00 89 07/30/17 13:38 100 35 07/30/17 12:00 62 07/30/17 12:00 97.7 62 18 169/79 (109) 100 07/30/17 12:00 35 -: 07/31/17 0341 07/31/17 0341 Tubes & Lines: [place] Tubes & Lines Comment wound vac x 2 TLC Drip Comment propofol Physical Exam General Appearance: Well Nourished, Comfortable Throat Throat Exam: Oral Mucosa [place] & Moist Pulmonary Resp Exam: Clear Bilaterally, Breath Sounds Equal Cardiology CV Exam: Regular, Good Perfusion Gastrointestinal/Abdomen GI Exam: Soft, Non-Tender, Bowel Sounds Present Musculoskeletal MS Exam: Joints Intact, Normal Tone, Unable to Ambulate Integumentary Skin Exam: Warm, Dry Extremeties Extremities Exam: Pedal Pulses Palpable, Trace Edema Neurologic Neuro Exam: Unresponsive, Sedated Assessment/Plan Assessment Summary: SHARONA/Acute Renal Failure Electrolyte Assessment: Hyponatremia Problem List: (1) Acute kidney injury ICD Codes: N17.9 - Acute kidney failure, unspecified Status: Acute Plan: Renal function has improved. Avoid nephrotoxic agents. Continue supportive care. (2) Severe sepsis ICD Codes: A41.9 - Sepsis, unspecified organism; R65.20 - Severe sepsis without septic shock Status: Acute Plan: Necrotizing cellulitis, s/p I&D in OR x 2, most recent 07/27 ID following. Cultures MRSA (wound) Specimen sent to pathology: cellulitis and multifocal abscess formation (3) Hypernatremia ICD Codes: E87.0 - Hyperosmolality and hypernatremia Plan: continue water administration. Improved. She is on Diuril. (4) Hypotension ICD Codes: I95.9 - Hypotension, unspecified Status: Resolved Plan: Improved, off pressure support continue to monitor blood pressure (5) A-fib ICD Codes: I48.91 - Unspecified atrial fibrillation Plan: Off amiodarone, rhythm is regular Plan I will sign off at this time. Please call if needed. Adjust diuretics based on Volume status. Problem Qualifiers (1) Hypotension: Qualified Codes: I95.9 - Hypotension, unspecified Jony Robert MD July 31, 2017 11:41
[2017-07-31] MEDS: DEXTROSE 5% IN WATE 1000ML INJ 1,000 ML IV SCH (14:32)
--- NOTE | 2017-07-31 15:12 | HHI.IDPN ---
Subjective Subjective Remarks Most of the history was obtained by review of medical records. Patient shortly being wheeled out to the operating room for surgical exploration of the site of necrotizing fasciitis Septic shock. Ms. lEdridge is a 62-year-old female who reportedly has developmental delays per chart review. Patient presented to the emergency department via EMS for evaluation of right-sided abdominal, flank and back erythema swelling and pain. Patient's care provider and power of litigation attorney associate listed on the chart is Mr. Felipe Nagy who can be contacted at [phone]. Patient had earlier reported to others that she was feeling unwell for the past 4 weeks. Patient reported increase in her migraine symptoms. Patient also reported continuous, nonradiating sharps times burning pain over the right upper quadrant that is expanded to include her right flank and back. She denies any trauma to these areas. Patient reported to others prior to being intubated that she had nausea and vomiting associated with decreased appetite. Patient also had reported to others that she was dizzy and lightheaded. Per review of records it appears that patient has had multiple falls as well as has had urinary incontinence at baseline with decreased urine output over the last few days. Patient also reported subjective symptoms such as burning with urination. Per EMS, patient was found to be hypotensive. Systolic pressure was recorded in the 70s. She received fluid in transit with minimal improvement. In the emergency department she was found to have significant erythema,pain and edema from approximately the fifth intercostal space down to the eighth or ninth intercostal space wrapping around from the midline in the back all the way around to just medial to the breast. CT scan of the abdomen and pelvis confirms significant subcutaneous edema, but this area of edema appears to be contained by intact fascial planes, particularly in the midline of the back. Laboratory evidence is significant for a white blood cell count of 27k, creatinine is 3.58, potassium 5.4, bicarb of 17.9, anion gap elevated at 15, BUN of 64, an initial lactate of 5.1. In the emergency department she received 3 L of crystalloid IV fluids. Critical care medicine is consulted to evaluate manage her presumed septic shock secondary to severe cellulitis of the trunk. Overnight critical care medicine was consulted for worsening sepsis and septic shock. Patient had to be intubated and upon evaluation was found to have evidence suggestive of necrotizing fasciitis involving similar areas as reported on the emergency room but had progressed beyond the line of demarcation. Patient was noted to have significant blisters and blackening of the areas. Critical care medicine change the regimen to Zosyn IV, vancomycin IV and added clindamycin IV and placed a surgical consult. Patient was evaluated by Dr. Thor Dumont of surgery and patient is being wheeled to the operating room shortly. At the time of my evaluation patient is in the ICU currently on high-dose Levophed as well as vasopressin with slight decrease in Levophed requirement after addition of clindamycin IV. Urine output is low. No diarrhea. No diffuse rash or skin changes other than as described. Delayed entry patient seen at approximately 11 AM. Overnight events reviewed with RN. Remains in ICU. Off Pressors. No fevers No rash No diarrhea remains intubated. Not much secretions. Moves extremities spontaneously. s/p I&D change of wound vac yday Antibiotics Zosyn IV Vanco IV Clindamycin IV Lines Line sites with no e.o infection Past Medical History Anxiety Depression Developmental delays - mental handicap Headaches/migraines Hypothyroidism GERD Chest pain Hx of UTIs Renal insufficiency Bladder incontinence Chronic back pain Thyroid surgery EGD - 08/30/16 Cholecystectomy - 03/04/15 D&C Hysterectomy Colonoscopy - 07/30/16 and 08/11/15 Allergies: Coded Allergies: No Known Allergies (Verified Allergy, Unknown, 07/22/17) Objective . Vital Signs Date Time Temp Pulse Resp B/P (MAP) Pulse Ox O2 Delivery O2 Flow Rate FiO2 07/31/17 14:00 68 07/31/17 12:00 71 07/31/17 12:00 98.0 71 16 114/55 (74) 100 07/31/17 11:35 100 35 07/31/17 10:00 70 07/31/17 08:00 74 07/31/17 08:00 97.8 74 13 93/52 (66) 100 07/31/17 07:43 100 35 07/31/17 06:00 88 07/31/17 04:27 100 35 07/31/17 04:00 110 07/31/17 04:00 98.4 110 13 109/55 (73) 100 07/31/17 04:00 35 07/31/17 02:00 102 07/31/17 01:32 100 35 07/31/17 00:00 98.7 73 15 123/60 (81) 100 07/31/17 00:00 73 07/31/17 00:00 35 07/30/17 22:00 90 07/30/17 21:48 100 35 07/30/17 20:00 35 07/30/17 20:00 98.8 72 14 124/60 (81) 100 07/30/17 20:00 72 07/30/17 18:00 85 07/30/17 17:45 100 35 07/30/17 16:00 98.4 85 16 161/77 (105) 100 07/30/17 16:00 62 07/30/17 16:00 35 . Laboratory Tests Test 07/30/17 05:00 07/31/17 03:41 White Blood Count 26.4 TH/MM3 17.7 TH/MM3 Red Blood Count 2.97 MIL/MM3 2.67 MIL/MM3 Hemoglobin 7.9 GM/DL 7.2 GM/DL Hematocrit 24.9 % 22.6 % Mean Corpuscular Volume 83.9 FL 84.4 FL Mean Corpuscular Hemoglobin 26.7 PG 27.0 PG Mean Corpuscular Hemoglobin Concent 31.8 % 31.9 % Red Cell Distribution Width 15.0 % 14.8 % Platelet Count 230 TH/MM3 241 TH/MM3 Mean Platelet Volume 7.9 FL 7.9 FL Neutrophils (%) (Auto) 92.5 % 92.5 % Lymphocytes (%) (Auto) 4.7 % 5.5 % Monocytes (%) (Auto) 2.8 % 1.9 % Eosinophils (%) (Auto) 0.0 % 0.0 % Basophils (%) (Auto) 0.0 % 0.1 % Neutrophils # (Auto) 24.5 TH/MM3 16.4 TH/MM3 Lymphocytes # (Auto) 1.2 TH/MM3 1.0 TH/MM3 Monocytes # (Auto) 0.7 TH/MM3 0.3 TH/MM3 Eosinophils # (Auto) 0.0 TH/MM3 0.0 TH/MM3 Basophils # (Auto) 0.0 TH/MM3 0.0 TH/MM3 CBC Comment AUTO DIFF DIFF FINAL Differential Comment AUTO DIFF CONFIRMED Platelet Estimate LOW Platelet Morphology Comment NORMAL Ovalocytes 1+ Laboratory Tests Test 07/30/17 05:00 07/31/17 03:41 Blood Urea Nitrogen 41 MG/DL 27 MG/DL Creatinine 0.88 MG/DL 0.75 MG/DL Random Glucose 178 MG/DL 219 MG/DL Total Protein 5.0 GM/DL Albumin 1.5 GM/DL Calcium Level 9.1 MG/DL 8.7 MG/DL Phosphorus Level 2.6 MG/DL Magnesium Level 1.7 MG/DL Alkaline Phosphatase 98 U/L Aspartate Amino Transf (AST/SGOT) 11 U/L Alanine Aminotransferase (ALT/SGPT) 23 U/L Total Bilirubin 0.4 MG/DL Sodium Level 148 MEQ/L 147 MEQ/L Potassium Level 4.1 MEQ/L 3.7 MEQ/L Chloride Level 112 MEQ/L 109 MEQ/L Carbon Dioxide Level 29.5 MEQ/L 30.0 MEQ/L Anion Gap 7 MEQ/L 8 MEQ/L Estimat Glomerular Filtration Rate 65 ML/MIN 78 ML/MIN Imaging Last Impressions Chest X-Ray 07/24/17 0000 Signed Impressions: Service Date/Time: Monday, July 24, 2017 04:28 - CONCLUSION: 1. Endotracheal and nasogastric tubes appear to be appropriately positioned. Stable position of left subclavian central venous catheter. 2. Lungs remain clear. Jerome Brady MD Chest CT 07/24/17 0000 Signed Impressions: Service Date/Time: Monday, July 24, 2017 05:36 - CONCLUSION: 1. Stranding in the subcutaneous tissues about the right flank with fluid adjacent to the latissimus dorsi. Stranding extends up into the right breast. Findings could represent developing cellulitis. 2. In addition, there is now a small right-sided effusion with bilateral dependent atelectatic changes. Jerome Brady MD Abdomen/Pelvis CT 07/24/17 0000 Signed Impressions: Service Date/Time: Monday, July 24, 2017 05:36 - CONCLUSION: 1. CT findings concerning for a right sided cellulitis and developing myositis. There is some asymmetric prominence of the latissimus dorsi muscle on the right. Unorganized fluid in the deep subcutaneous tissues adjacent to the muscle belly. No drainable fluid collection, however. 2. Developing dependent areas of consolidation, right greater than left with an associated small right-sided effusion. Jerome Brady MD Head CT 07/22/17 1253 Signed Impressions: Service Date/Time: Saturday, July 22, 2017 13:26 - CONCLUSION: No acute disease. Derrick Henry MD Physical Exam GENERAL: Thin built, well-developed patient, in no apparent distress. SKIN: No generalized maculopapular rash. HEAD: Atraumatic. Normocephalic. No temporal or scalp tenderness. EYES: Pupils equal round and reactive. Extraocular motions intact. No scleral icterus. No injection or drainage. ENT: Intubated. NECK: Trachea midline. Supple, nontender, no meningeal signs. CARDIOVASCULAR: Heart sounds audible. No murmur appreciated. RESPIRATORY: Clear to auscultation. Breath sounds equal bilaterally. No wheezes , rales, or rhonchi. GASTROINTESTINAL: Abdomen soft.Wound vac area noted. Extensive area needing wound vac. Skin discoloration extending into right breast outer quadrants. MUSCULOSKELETAL: Extremities without clubbing, cyanosis, or edema. Bluish discoloration and cold toes on right foot. No joint tenderness, effusion, or edema noted. No calf tenderness. Negative Homans sign bilaterally. NEUROLOGICAL: Sedated. Psych could not be assessed IV line sites with no e.o infection Assessment & Plan Remarks Septic shock with multiorgan dysfunction syndrome Sepsis present on admission Necrotizing fasciitis of the abdominal wall ? History of multiple falls likely the precipitant. Acute rhabdomyolysis Acute renal failure: Prerenal, sepsis, rhabdomyolysis Acute metabolic encephalopathy likely sepsis related. Baseline unknown Leukemoid reaction likely due to worsening sepsis Recommendations: Continue Dapto IV (Vanco DELMI 2, clinically still has new areas of erythema and e /o infection outside wound vac margin, acute renal failure) Continue clindamycin IV for now. Will reassess after wound vac change if necrosis controlled will reevaluate continuing need based on d/w surgery. Follow cultures Follow clinically Discussed with Ellen Sofia MD July 31, 2017 15:12
[2017-07-31] MEDS: SODIUM CHLORIDE 0.9% IV SCH (17:58)
[2017-07-31] MEDS: DAPTOMYCIN IV SCH (17:58)
--- NOTE | 2017-07-31 18:52 | HHI.PR ---
Subjective Subjective Notes vac good seal, hh drop to 7.2 Objective Vitals/I&O Vital Signs Date Time Temp Pulse Resp B/P (MAP) Pulse Ox O2 Delivery O2 Flow Rate FiO2 07/31/17 16:01 100 35 07/31/17 16:00 98.8 74 17 110/56 (74) Labs Laboratory Tests Test 07/31/17 03:41 White Blood Count 17.7 Red Blood Count 2.67 Hemoglobin 7.2 Hematocrit 22.6 Mean Corpuscular Volume 84.4 Mean Corpuscular Hemoglobin 27.0 Mean Corpuscular Hemoglobin Concent 31.9 Red Cell Distribution Width 14.8 Platelet Count 241 Mean Platelet Volume 7.9 Neutrophils (%) (Auto) 92.5 Lymphocytes (%) (Auto) 5.5 Monocytes (%) (Auto) 1.9 Eosinophils (%) (Auto) 0.0 Basophils (%) (Auto) 0.1 Neutrophils # (Auto) 16.4 Lymphocytes # (Auto) 1.0 Monocytes # (Auto) 0.3 Eosinophils # (Auto) 0.0 Basophils # (Auto) 0.0 CBC Comment DIFF FINAL Differential Comment Blood Urea Nitrogen 27 Creatinine 0.75 Random Glucose 219 Calcium Level 8.7 Sodium Level 147 Potassium Level 3.7 Chloride Level 109 Carbon Dioxide Level 30.0 Anion Gap 8 Estimat Glomerular Filtration Rate 78 Date/Time Source Procedure Growth Status 07/24/17 05:05 Blood Peripheral Aerobic Blood Culture - Final NO GROWTH IN 5 DAYS Complete 07/24/17 05:05 Blood Peripheral Anaerobic Blood Culture - Final NO GROWTH IN 5 DAYS Complete 07/22/17 20:10 Nasal Washing Influenza Types A,B Antigen (DELMI) - Final NEGATIVE FOR FLU A AND B ANTIGEN.... Complete 07/23/17 16:05 Urine Catheterized Urine Urine Culture - Final NO GROWTH IN 48 HOURS. Complete 07/27/17 15:30 Wound Other Fungal Smear - Final NO FUNGAL ELEMENTS SEEN. Resulted 07/27/17 15:30 Wound Other Fungal Culture Pending Resulted Lungs: Rhonchi Abdomen: Other (vac good seal serosang) A/P Assessment and Plan Soft tissues necrotizing infection s/p incision and wide excisional debridement #2 of torso POD 1 VAC good seal PLAN Will change vac in 1-2 days continue abx vent per isc close monitoring anemia of blood loss agree with transfusion Tip Dumont MD July 31, 2017 18:52
[2017-08-01] VITALS (21 sets, daily range): BP systolic 87–164; BP diastolic 51–84; PULSE 66–99; RESP 11–29; TEMP 97.4–98.7; O2SAT 100
[2017-08-01] MEDS: INSULIN NovoLIN REGULAR SUPPLEMENTAL SCALE SQ SCH ×7 (01:00→23:27)
[2017-08-01 03:40] LABS: HEMATOCRIT 25.8 % (35.0-46.0); HEMOGLOBIN 8.5 GM/DL (11.6-15.3)
[2017-08-01 04:23] LABS: AUTOMATED NEUTROPHIL # 12.3 TH/MM3 (1.8-7.7); BASOPHIL % 0.1 % (0.0-2.0); EOSINOPHIL # 0.1 TH/MM3 (0-0.4); EOSINOPHIL % 0.8 % (0.0-4.0); HEMATOCRIT 24.5 % (35.0-46.0); HEMOGLOBIN 7.9 GM/DL (11.6-15.3); LYMPH % 11.1 % (9.0-44.0); LYMPHOCYTE # 1.6 TH/MM3 (1.0-4.8); MEAN CELL VOLUME 83.7 FL (80.0-100.0); MEAN CORPUSCULAR HEMOGLOBIN 26.9 PG (27.0-34.0); MEAN CORPUSCULAR HGB CONC 32.2 % (32.0-36.0); MEAN PLATELET VOLUME 7.8 FL (7.0-11.0); MONO % 3.5 % (0.0-8.0); MONOCYTE # 0.5 TH/MM3 (0-0.9); NEUT % 84.5 % (16.0-70.0); PLATELET COUNT 261 TH/MM3 (150-450); RED BLOOD COUNT 2.93 MIL/MM3 (4.00-5.30); RED CELL DISTRIBUTION WIDTH 15.9 % (11.6-17.2); WHITE BLOOD COUNT 14.6 TH/MM3 (4.0-11.0)
[2017-08-01] MEDS: CLINDAMYCIN 600 MG/NS PREMIX 50 ML IV SCH (04:24)
[2017-08-01 04:47] LABS: ALBUMIN 1.4 GM/DL (3.4-5.0); ALT (GPT) 17 U/L (10-53); AST (GOT) 11 U/L (15-37); BICARBONATE 31.9 MEQ/L (21.0-32.0); BLOOD UREA NITROGEN 27 MG/DL (7-18); CALCIUM 8.2 MG/DL (8.5-10.1); CHLORIDE 108 MEQ/L (98-107); CREATININE 0.67 MG/DL (0.50-1.00); GLOMERULAR FILTRATION RATE 89 ML/MIN (>89); GLUCOSE,RANDOM 172 MG/DL (74-106); MAGNESIUM 1.6 MG/DL (1.5-2.5); SODIUM (NA) 144 MEQ/L (136-145)
[2017-08-01 04:52] LABS: ALKALINE PHOSPHATASE 70 U/L (45-117); PHOSPHORUS 1.5 MG/DL (2.5-4.9); TOTAL BILIRUBIN ADULT 0.3 MG/DL (0.2-1.0); TOTAL PROTEIN 4.2 GM/DL (6.4-8.2)
[2017-08-01] MEDS: FREE WATER G-TUBE SCH ×5 (06:00→23:33)
[2017-08-01] MEDS: DILTIAZEM HCL 60 MG TAB PO SCH ×5 (06:00→23:33)
[2017-08-01] MEDS: CHLORHEXIDINE 0.12% (ORAL KIT) 15 ML CUP MT SCH ×2 (08:01→19:36)
[2017-08-01] MEDS: CHLOROTHIAZIDE SOD 500 MG VIAL IV SCH (08:02)
[2017-08-01] MEDS: SODIUM CHLORIDE 0.9% FLUSH 10 ML FLUSH IV FLUSH SCH ×2 (08:02→20:38)
[2017-08-01] MEDS: HYDROCORTISONE SOD SUCCINATE 100 MG VIAL IV PUSH SCH ×2 (08:02→20:38)
[2017-08-01] MEDS: SODIUM CHLORIDE 0.9% FLUSH 10 ML FLUSH IV FLUSH PRN (08:02)
[2017-08-01] MEDS: FAMOTIDINE 20 MG TAB PO SCH ×2 (08:03→20:38)
[2017-08-01] MEDS: DOCUSATE SODIUM 50 MG/SENNA 8.6 MG TAB PO SCH ×2 (08:03→20:38)
[2017-08-01] MEDS: CALCIUM/VITAMIN D 250 MG/125 U TAB PO SCH (08:03)
[2017-08-01] MEDS: MULTIVITAMIN-OPHTHALMIC 1 TAB PO SCH (08:03)
[2017-08-01] MEDS: BUDESONIDE 9 MG PO SCH (08:03)
[2017-08-01] MEDS: POTASSIUM PHOSPHATE INJ 30 MMOL in SODIUM CHLOR 0.9% 250 ML INJ 250 ML IV PRN (08:13)
--- NOTE | 2017-08-01 09:43 | HHI.IDPN ---
Subjective Subjective Remarks Most of the history was obtained by review of medical records. Patient shortly being wheeled out to the operating room for surgical exploration of the site of necrotizing fasciitis Septic shock. Ms. Eldridge is a 62-year-old female who reportedly has developmental delays per chart review. Patient presented to the emergency department via EMS for evaluation of right-sided abdominal, flank and back erythema swelling and pain. Patient's care provider and power of trade mark attorney listed on the chart is Mr. Felipe Nagy who can be contacted at [phone]. Patient had earlier reported to others that she was feeling unwell for the past 4 weeks. Patient reported increase in her migraine symptoms. Patient also reported continuous, nonradiating sharps times burning pain over the right upper quadrant that is expanded to include her right flank and back. She denies any trauma to these areas. Patient reported to others prior to being intubated that she had nausea and vomiting associated with decreased appetite. Patient also had reported to others that she was dizzy and lightheaded. Per review of records it appears that patient has had multiple falls as well as has had urinary incontinence at baseline with decreased urine output over the last few days. Patient also reported subjective symptoms such as burning with urination. Per EMS, patient was found to be hypotensive. Systolic pressure was recorded in the 70s. She received fluid in transit with minimal improvement. In the emergency department she was found to have significant erythema,pain and edema from approximately the fifth intercostal space down to the eighth or ninth intercostal space wrapping around from the midline in the back all the way around to just medial to the breast. CT scan of the abdomen and pelvis confirms significant subcutaneous edema, but this area of edema appears to be contained by intact fascial planes, particularly in the midline of the back. Laboratory evidence is significant for a white blood cell count of 27k, creatinine is 3.58, potassium 5.4, bicarb of 17.9, anion gap elevated at 15, BUN of 64, an initial lactate of 5.1. In the emergency department she received 3 L of crystalloid IV fluids. Critical care medicine is consulted to evaluate manage her presumed septic shock secondary to severe cellulitis of the trunk. Overnight critical care medicine was consulted for worsening sepsis and septic shock. Patient had to be intubated and upon evaluation was found to have evidence suggestive of necrotizing fasciitis involving similar areas as reported on the emergency room but had progressed beyond the line of demarcation. Patient was noted to have significant blisters and blackening of the areas. Critical care medicine change the regimen to Zosyn IV, vancomycin IV and added clindamycin IV and placed a surgical consult. Patient was evaluated by Dr. Thor Dumont of surgery and patient is being wheeled to the operating room shortly. At the time of my evaluation patient is in the ICU currently on high-dose Levophed as well as vasopressin with slight decrease in Levophed requirement after addition of clindamycin IV. Urine output is low. No diarrhea. No diffuse rash or skin changes other than as described. Delayed entry patient seen at approximately 11 AM. Overnight events reviewed with RN. Remains in ICU. Off Pressors. No fevers No rash No diarrhea remains intubated. Not much secretions. Moves extremities spontaneously. Wound vac change planned today due to leak issues per dw RN Antibiotics Dapto IV Clindamycin IV Lines Line sites with no e.o infection Past Medical History Anxiety Depression Developmental delays - mental handicap Headaches/migraines Hypothyroidism GERD Chest pain Hx of UTIs Renal insufficiency Bladder incontinence Chronic back pain Thyroid surgery EGD - 08/30/16 Cholecystectomy - 03/04/15 D&C Hysterectomy Colonoscopy - 07/30/16 and 08/11/15 Allergies: Coded Allergies: No Known Allergies (Verified Allergy, Unknown, 07/22/17) Objective . Vital Signs Date Time Temp Pulse Resp B/P (MAP) Pulse Ox O2 Delivery O2 Flow Rate FiO2 08/01/17 09:00 71 14 93/54 (67) 100 08/01/17 08:23 100 35 08/01/17 08:00 35 08/01/17 08:00 97.8 71 15 97/54 (68) 100 08/01/17 08:00 71 08/01/17 06:00 69 08/01/17 04:36 100 35 08/01/17 04:00 98.6 67 13 96/52 (67) 100 08/01/17 04:00 67 08/01/17 04:00 35 08/01/17 02:00 66 08/01/17 00:23 100 35 08/01/17 00:00 98.7 73 14 95/51 (66) 100 08/01/17 00:00 35 08/01/17 00:00 73 07/31/17 22:00 76 07/31/17 21:35 100 35 07/31/17 20:00 78 07/31/17 20:00 35 07/31/17 20:00 98.5 78 16 107/56 (73) 100 07/31/17 18:00 76 07/31/17 16:01 100 35 07/31/17 16:00 98.8 74 17 110/56 (74) 100 07/31/17 16:00 35 07/31/17 16:00 74 07/31/17 14:00 68 07/31/17 12:00 35 07/31/17 12:00 71 07/31/17 12:00 98.0 71 16 114/55 (74) 100 07/31/17 11:35 100 35 07/31/17 10:00 70 . Laboratory Tests Test 07/31/17 03:41 08/01/17 01:14 08/01/17 04:05 White Blood Count 17.7 TH/MM3 14.6 TH/MM3 Red Blood Count 2.67 MIL/MM3 2.93 MIL/MM3 Hemoglobin 7.2 GM/DL 8.5 GM/DL 7.9 GM/DL Hematocrit 22.6 % 25.8 % 24.5 % Mean Corpuscular Volume 84.4 FL 83.7 FL Mean Corpuscular Hemoglobin 27.0 PG 26.9 PG Mean Corpuscular Hemoglobin Concent 31.9 % 32.2 % Red Cell Distribution Width 14.8 % 15.9 % Platelet Count 241 TH/MM3 261 TH/MM3 Mean Platelet Volume 7.9 FL 7.8 FL Neutrophils (%) (Auto) 92.5 % 84.5 % Lymphocytes (%) (Auto) 5.5 % 11.1 % Monocytes (%) (Auto) 1.9 % 3.5 % Eosinophils (%) (Auto) 0.0 % 0.8 % Basophils (%) (Auto) 0.1 % 0.1 % Neutrophils # (Auto) 16.4 TH/MM3 12.3 TH/MM3 Lymphocytes # (Auto) 1.0 TH/MM3 1.6 TH/MM3 Monocytes # (Auto) 0.3 TH/MM3 0.5 TH/MM3 Eosinophils # (Auto) 0.0 TH/MM3 0.1 TH/MM3 Basophils # (Auto) 0.0 TH/MM3 0.0 TH/MM3 CBC Comment DIFF FINAL DIFF FINAL Differential Comment Laboratory Tests Test 07/31/17 03:41 08/01/17 04:05 Blood Urea Nitrogen 27 MG/DL 27 MG/DL Creatinine 0.75 MG/DL 0.67 MG/DL Random Glucose 219 MG/DL 172 MG/DL Calcium Level 8.7 MG/DL 8.2 MG/DL Sodium Level 147 MEQ/L 144 MEQ/L Potassium Level 3.7 MEQ/L 3.2 MEQ/L Chloride Level 109 MEQ/L 108 MEQ/L Carbon Dioxide Level 30.0 MEQ/L 31.9 MEQ/L Anion Gap 8 MEQ/L 4 MEQ/L Estimat Glomerular Filtration Rate 78 ML/MIN 89 ML/MIN Total Protein 4.2 GM/DL Albumin 1.4 GM/DL Phosphorus Level 1.5 MG/DL Magnesium Level 1.6 MG/DL Alkaline Phosphatase 70 U/L Aspartate Amino Transf (AST/SGOT) 11 U/L Alanine Aminotransferase (ALT/SGPT) 17 U/L Total Bilirubin 0.3 MG/DL Imaging Last Impressions Chest X-Ray 07/24/17 0000 Signed Impressions: Service Date/Time: Monday, July 24, 2017 04:28 - CONCLUSION: 1. Endotracheal and nasogastric tubes appear to be appropriately positioned. Stable position of left subclavian central venous catheter. 2. Lungs remain clear. Jerome Brady MD Chest CT 07/24/17 0000 Signed Impressions: Service Date/Time: Monday, July 24, 2017 05:36 - CONCLUSION: 1. Stranding in the subcutaneous tissues about the right flank with fluid adjacent to the latissimus dorsi. Stranding extends up into the right breast. Findings could represent developing cellulitis. 2. In addition, there is now a small right-sided effusion with bilateral dependent atelectatic changes. Jerome Brady MD Abdomen/Pelvis CT 07/24/17 0000 Signed Impressions: Service Date/Time: Monday, July 24, 2017 05:36 - CONCLUSION: 1. CT findings concerning for a right sided cellulitis and developing myositis. There is some asymmetric prominence of the latissimus dorsi muscle on the right. Unorganized fluid in the deep subcutaneous tissues adjacent to the muscle belly. No drainable fluid collection, however. 2. Developing dependent areas of consolidation, right greater than left with an associated small right-sided effusion. Jerome Brady MD Head CT 07/22/17 1253 Signed Impressions: Service Date/Time: Saturday, July 22, 2017 13:26 - CONCLUSION: No acute disease. Derrick Henry MD Physical Exam GENERAL: Thin built, well-developed patient, in no apparent distress. SKIN: No generalized maculopapular rash. HEAD: Atraumatic. Normocephalic. No temporal or scalp tenderness. EYES: Pupils equal round and reactive. Extraocular motions intact. No scleral icterus. No injection or drainage. ENT: Intubated. NECK: Trachea midline. Supple, nontender, no meningeal signs. CARDIOVASCULAR: Heart sounds audible. No murmur appreciated. RESPIRATORY: Clear to auscultation. Breath sounds equal bilaterally. No wheezes , rales, or rhonchi. GASTROINTESTINAL: Abdomen soft. Wound vac area noted. Extensive area needing wound vac. MUSCULOSKELETAL: Extremities without clubbing, cyanosis, or edema. Bluish discoloration and cold toes on right foot. No joint tenderness, effusion, or edema noted. No calf tenderness. Negative Homans sign bilaterally. NEUROLOGICAL: Sedated. Psych could not be assessed IV line sites with no e.o infection Assessment & Plan Remarks Septic shock with multiorgan dysfunction syndrome Sepsis present on admission Necrotizing fasciitis of the abdominal wall ? History of multiple falls likely the precipitant. Acute rhabdomyolysis Acute renal failure: Prerenal, sepsis, rhabdomyolysis Acute metabolic encephalopathy likely sepsis related. Baseline unknown Leukemoid reaction likely due to worsening sepsis Recommendations: Continue Dapto IV (Vanco DELMI 2, clinically still has new areas of erythema and e /o infection outside wound vac margin, acute renal failure) DC clindamycin IV acute necrotizing phase controlled. Follow cultures Follow clinically Discussed with RN to cover for me 08/02-08/04 and rest days weekend residential construction instructororder caller. Ellen De La Torre MD August 01, 2017 09:43
--- NOTE | 2017-08-01 09:54 | MP ---
cc: Tip Dumont MD DATE OF OPERATION: 07/30/2017 DATE OF PROCEDURE: 07/30/2017. PREOPERATIVE DIAGNOSIS: Necrotizing soft tissue infection of the abdomen and torso and back. POSTOPERATIVE DIAGNOSIS: Necrotizing soft tissue infection of the abdomen and torso and back. PROCEDURE PERFORMED: VAC change with minimal excisional debridement of soft subcutaneous tissue and necrotic debris SURGEON: Dr. Tip Dumont. CERTIFIED CODER: See OR sheet. ANESTHESIA: GETA. IV FLUIDS: See anesthesia sheet. ESTIMATED BLOOD LOSS: 10 mL DRAINS: Hemovac placement. SPECIMENS: None. COMPLICATIONS: None. WOUND CLASSIFICATION: Dirty, contaminated. INDICATIONS FOR PROCEDURE: The patient is a 62-year-old female who presented with septic shock, soft tissue necrotizing infection, underwent initial debridement and she returned to the OR for subsequent further debridement with VAC change. DETAILS OF PROCEDURE: The patient was taken to the operative suite, placed in the lateral decubitus position, was prepped and draped in the usual sterile fashion. She was already on the ventilator. Brief timeout undertaken stated the correct patient, procedure, surgical site and we were all in agreement with this. Attention was directed to the VAC where the right torso, anterior abdomen and back, VAC was removed. [place] were removed. There was noted to be some minimal exudate with purulent material that was debrided. Hemostasis obtained with Bovie electrocautery and irrigation was done to irrigate the wound bed. Tissue looked relatively healthy. Scant ischemic areas, otherwise no undrained abscess collections. Therefore, a sponge was cut to size. [place] were placed. The plastic drape was then replaced. Track pads x 2 were placed. VAC connected to the Y connector and placed to suction with good seal. No evidence of leak. The patient was then transferred to ICU for further close monitoring and care. All lap and instrument counts were correct. No intraoperative complications. MD SHARON Kowalski/ROSIE , 09:28 AM , 09:48 AM MEET
[2017-08-01] MEDS: fentaNYL DRIP 250 ML IV PRN ×2 (11:08→19:36)
--- NOTE | 2017-08-01 12:50 | HHI.HCPN ---
Reason for visit a. To assist with evaluation and management of symptoms including: pain, dyspnea. b. To assist medical decision maker(s) with: better understanding of current medical conditions; weighing benefits/burdens of medical treatment options; making medical treatment decisions. Subjective/Interval History Patient underwent change of wound vac with minimal excisional debridement on 09/11. She is currently sedated (fentanyl / midazolam), intubated, mechanically ventilated, and minimally responsive in an MICU bed. Does not awaken to voice or exam. No evidence of pain. Off pressors x 2 days. Vascular surgery has visited to evaluate ischemic appearing toes on right which are getting worse. No surgical intervention planned at this time. Afebrile. Other VS stable except for intermittent systolic BP in 90s. Urine output adequate. WBC trending down. Hg fell to 7.2 on 07/31 and was transfused with one unit on that date. . Family/friend interactions Mr. Nagy has apparently not brought in guardianship papers. Palliative care certified social workers in health care will try and confirm this relationship . Advance Directives Durable Power of Certified Personal Trainer: Completed, but not made available Objective Vital Signs Date Time Temp Pulse Resp B/P (MAP) Pulse Ox O2 Delivery O2 Flow Rate FiO2 08/01/17 10:00 75 08/01/17 09:00 71 14 93/54 (67) 100 08/01/17 08:23 100 35 08/01/17 08:00 35 08/01/17 08:00 97.8 71 15 97/54 (68) 100 08/01/17 08:00 71 08/01/17 06:00 69 08/01/17 04:36 100 35 08/01/17 04:00 98.6 67 13 96/52 (67) 100 08/01/17 04:00 67 08/01/17 04:00 35 08/01/17 02:00 66 08/01/17 00:23 100 35 08/01/17 00:00 98.7 73 14 95/51 (66) 100 08/01/17 00:00 35 08/01/17 00:00 73 07/31/17 22:00 76 07/31/17 21:35 100 35 07/31/17 20:00 78 07/31/17 20:00 35 07/31/17 20:00 98.5 78 16 107/56 (73) 100 07/31/17 18:00 76 07/31/17 16:01 100 35 07/31/17 16:00 98.8 74 17 110/56 (74) 100 07/31/17 16:00 35 07/31/17 16:00 74 07/31/17 14:00 68 Intake & Output 08/01/17 08/01/17 07:00 19:00 Intake Total 1299 ml 341 ml Output Total 900 ml Balance 399 ml 341 ml Intake Oral 0 ml IV Total 100 ml 341 ml Tube Feeding 579 ml Tube Irrigant 20 ml Other 600 ml Output Urine Total 600 ml Drainage Total 300 ml # Bowel Movements 1 . Physical Exam CONSTITUTIONAL/GENERAL: This is an adequately nourished patient, sedated, intubated, mechanically ventilated in the MICU. No apparent distress. Minimally responsive. TUBES/LINES/DRAINS: Wound vac, left subclavian central line; Peripheral IV; ET tube, scales. SKIN: Right sided wound s/p debridment with wound vac from right thigh all the way up torso to below axillary area. EYES: Pupil equal,round, reactive. Unable to evaluate EOMs. . No scleral icterus. No injection or drainage. Fundi not examined. ENT: . Nose without bleeding or purulent drainage. ET tube in place. Dried blood on lips. NECK: Trachea midline. CARDIOVASCULAR: Regular rate and rhythm without murmurs, gallops, or rubs. No JVD. RESPIRATORY/CHEST: Symmetric, unlabored respirations. Clear to auscultation. Breath sounds equal bilaterally. No wheezes, rales, or rhonchi. GASTROINTESTINAL: Abdomen soft, non-tender, nondistended. No hepato-splenomegaly , or palpable masses. No guarding. Bowel sounds present. GENITOURINARY: Without palpable bladder distension. Scales catheter in place. MUSCULOSKELETAL: Extremities without clubbing, edema. Right middle toes are ischemic appearing throughout. Right little toe with ischemic appearance at tip. LYMPHATICS: Not examined. NEUROLOGICAL: Intubated and sedated. Does not awaken to voice or exam. Withdraws to noxious stimulus. PSYCHIATRIC: Unable to examine . Diagnostic Tests Laboratory Laboratory Tests Test 07/29/17 13:45 07/30/17 05:00 07/30/17 09:50 07/31/17 03:41 Potassium Level 4.3 MEQ/L (3.5-5.1) 4.1 MEQ/L (3.5-5.1) 3.7 MEQ/L (3.5-5.1) Total Creatine Kinase 37 U/L (26-192) White Blood Count 26.4 TH/MM3 (4.0-11.0) 17.7 TH/MM3 (4.0-11.0) Red Blood Count 2.97 MIL/MM3 (4.00-5.30) 2.67 MIL/MM3 (4.00-5.30) Hemoglobin 7.9 GM/DL (11.6-15.3) 7.2 GM/DL (11.6-15.3) Hematocrit 24.9 % (35.0-46.0) 22.6 % (35.0-46.0) Mean Corpuscular Volume 83.9 FL (80.0-100.0) 84.4 FL (80.0-100.0) Mean Corpuscular Hemoglobin 26.7 PG (27.0-34.0) 27.0 PG (27.0-34.0) Mean Corpuscular Hemoglobin Concent 31.8 % (32.0-36.0) 31.9 % (32.0-36.0) Red Cell Distribution Width 15.0 % (11.6-17.2) 14.8 % (11.6-17.2) Platelet Count 230 TH/MM3 (150-450) 241 TH/MM3 (150-450) Mean Platelet Volume 7.9 FL (7.0-11.0) 7.9 FL (7.0-11.0) Neutrophils (%) (Auto) 92.5 % (16.0-70.0) 92.5 % (16.0-70.0) Lymphocytes (%) (Auto) 4.7 % (9.0-44.0) 5.5 % (9.0-44.0) Monocytes (%) (Auto) 2.8 % (0.0-8.0) 1.9 % (0.0-8.0) Eosinophils (%) (Auto) 0.0 % (0.0-4.0) 0.0 % (0.0-4.0) Basophils (%) (Auto) 0.0 % (0.0-2.0) 0.1 % (0.0-2.0) Neutrophils # (Auto) 24.5 TH/MM3 (1.8-7.7) 16.4 TH/MM3 (1.8-7.7) Lymphocytes # (Auto) 1.2 TH/MM3 (1.0-4.8) 1.0 TH/MM3 (1.0-4.8) Monocytes # (Auto) 0.7 TH/MM3 (0-0.9) 0.3 TH/MM3 (0-0.9) Eosinophils # (Auto) 0.0 TH/MM3 (0-0.4) 0.0 TH/MM3 (0-0.4) Basophils # (Auto) 0.0 TH/MM3 (0-0.2) 0.0 TH/MM3 (0-0.2) CBC Comment AUTO DIFF DIFF FINAL Differential Comment AUTO DIFF CONFIRMED Platelet Estimate LOW (NORMAL) Platelet Morphology Comment NORMAL (NORMAL) Ovalocytes 1+ (NORMAL) Blood Urea Nitrogen 41 MG/DL (7-18) 27 MG/DL (7-18) Creatinine 0.88 MG/DL (0.50-1.00) 0.75 MG/DL (0.50-1.00) Random Glucose 178 MG/DL (74-106) 219 MG/DL (74-106) Total Protein 5.0 GM/DL (6.4-8.2) Albumin 1.5 GM/DL (3.4-5.0) Calcium Level 9.1 MG/DL (8.5-10.1) 8.7 MG/DL (8.5-10.1) Phosphorus Level 2.6 MG/DL (2.5-4.9) Magnesium Level 1.7 MG/DL (1.5-2.5) Alkaline Phosphatase 98 U/L (45-117) Aspartate Amino Transf (AST/SGOT) 11 U/L (15-37) Alanine Aminotransferase (ALT/SGPT) 23 U/L (10-53) Total Bilirubin 0.4 MG/DL (0.2-1.0) Sodium Level 148 MEQ/L (136-145) 147 MEQ/L (136-145) Chloride Level 112 MEQ/L (98-107) 109 MEQ/L (98-107) Carbon Dioxide Level 29.5 MEQ/L (21.0-32.0) 30.0 MEQ/L (21.0-32.0) Anion Gap 7 MEQ/L (5-15) 8 MEQ/L (5-15) Estimat Glomerular Filtration Rate 65 ML/MIN (>89) 78 ML/MIN (>89) Prothrombin Time 12.5 SEC (9.8-11.6) Prothromb Time International Ratio 1.2 RATIO Test 08/01/17 01:14 08/01/17 04:05 Hemoglobin 8.5 GM/DL (11.6-15.3) 7.9 GM/DL (11.6-15.3) Hematocrit 25.8 % (35.0-46.0) 24.5 % (35.0-46.0) White Blood Count 14.6 TH/MM3 (4.0-11.0) Red Blood Count 2.93 MIL/MM3 (4.00-5.30) Mean Corpuscular Volume 83.7 FL (80.0-100.0) Mean Corpuscular Hemoglobin 26.9 PG (27.0-34.0) Mean Corpuscular Hemoglobin Concent 32.2 % (32.0-36.0) Red Cell Distribution Width 15.9 % (11.6-17.2) Platelet Count 261 TH/MM3 (150-450) Mean Platelet Volume 7.8 FL (7.0-11.0) Neutrophils (%) (Auto) 84.5 % (16.0-70.0) Lymphocytes (%) (Auto) 11.1 % (9.0-44.0) Monocytes (%) (Auto) 3.5 % (0.0-8.0) Eosinophils (%) (Auto) 0.8 % (0.0-4.0) Basophils (%) (Auto) 0.1 % (0.0-2.0) Neutrophils # (Auto) 12.3 TH/MM3 (1.8-7.7) Lymphocytes # (Auto) 1.6 TH/MM3 (1.0-4.8) Monocytes # (Auto) 0.5 TH/MM3 (0-0.9) Eosinophils # (Auto) 0.1 TH/MM3 (0-0.4) Basophils # (Auto) 0.0 TH/MM3 (0-0.2) CBC Comment DIFF FINAL Differential Comment Blood Urea Nitrogen 27 MG/DL (7-18) Creatinine 0.67 MG/DL (0.50-1.00) Random Glucose 172 MG/DL (74-106) Total Protein 4.2 GM/DL (6.4-8.2) Albumin 1.4 GM/DL (3.4-5.0) Calcium Level 8.2 MG/DL (8.5-10.1) Phosphorus Level 1.5 MG/DL (2.5-4.9) Magnesium Level 1.6 MG/DL (1.5-2.5) Alkaline Phosphatase 70 U/L (45-117) Aspartate Amino Transf (AST/SGOT) 11 U/L (15-37) Alanine Aminotransferase (ALT/SGPT) 17 U/L (10-53) Total Bilirubin 0.3 MG/DL (0.2-1.0) Sodium Level 144 MEQ/L (136-145) Potassium Level 3.2 MEQ/L (3.5-5.1) Chloride Level 108 MEQ/L (98-107) Carbon Dioxide Level 31.9 MEQ/L (21.0-32.0) Anion Gap 4 MEQ/L (5-15) Estimat Glomerular Filtration Rate 89 ML/MIN (>89) . Result Diagram: 08/01/17 0405 08/01/17 0405 Microbiology Microbiology Date/Time Source Procedure Growth Status 07/24/17 05:05 Blood Peripheral Aerobic Blood Culture - Final NO GROWTH IN 5 DAYS Complete 07/24/17 05:05 Blood Peripheral Anaerobic Blood Culture - Final NO GROWTH IN 5 DAYS Complete 07/22/17 20:10 Nasal Washing Influenza Types A,B Antigen (DELMI) - Final NEGATIVE FOR FLU A AND B ANTIGEN.... Complete 07/23/17 16:05 Urine Catheterized Urine Urine Culture - Final NO GROWTH IN 48 HOURS. Complete 07/27/17 15:30 Wound Other Fungal Smear - Final NO FUNGAL ELEMENTS SEEN. Resulted 07/27/17 15:30 Wound Other Fungal Culture Pending Resulted . Imaging Last Impressions Chest X-Ray 07/30/17 0000 Signed Impressions: Service Date/Time: Sunday, July 30, 2017 08:14 - CONCLUSION: Underinflation with atelectasis at the lung bases. Otherwise, no acute finding is seen given the technique. Derrick García MD Brain MRI 07/28/17 0000 Signed Impressions: Service Date/Time: Friday, July 28, 2017 14:38 - CONCLUSION: 1. Unremarkable MRI examination the brain. 2. No acute abnormality or interval change. Bob Daly MD Chest CT 07/24/17 0000 Signed Impressions: Service Date/Time: Monday, July 24, 2017 05:36 - CONCLUSION: 1. Stranding in the subcutaneous tissues about the right flank with fluid adjacent to the latissimus dorsi. Stranding extends up into the right breast. Findings could represent developing cellulitis. 2. In addition, there is now a small right-sided effusion with bilateral dependent atelectatic changes. Jerome Brady MD Abdomen/Pelvis CT 07/24/17 0000 Signed Impressions: Service Date/Time: Monday, July 24, 2017 05:36 - CONCLUSION: 1. CT findings concerning for a right sided cellulitis and developing myositis. There is some asymmetric prominence of the latissimus dorsi muscle on the right. Unorganized fluid in the deep subcutaneous tissues adjacent to the muscle belly. No drainable fluid collection, however. 2. Developing dependent areas of consolidation, right greater than left with an associated small right-sided effusion. Jerome Brady MD Head CT 07/22/17 1253 Signed Impressions: Service Date/Time: Saturday, July 22, 2017 13:26 - CONCLUSION: No acute disease. Derrick Henry MD . Assessment and Plan Disease Oriented Problem List: (1) Severe sepsis (2) Abdominal wall cellulitis Comment: required debridement of necrotizing tissue. (3) Acute kidney injury (4) DM (diabetes mellitus) Symptom Scale: (1) Dyspnea 0-10 Scale: Unable to quantify (2) Pain 0-10 Scale: Unable to quantify Comment: No known pre-hospitalization pain syndromes. Current sources of pain probably include large wound; prolonged bedbound status; scales cathter; vascular access lines; restraints; ET tube. . Pertinent Non-Medical Issues Psychosocial:developmental delay Spiritual: unknown Legal: await paper work guardian/poa of Mr. Nagy. Ethical issues impacting care: Patient is incapacitated. . Important Contacts Felipe Nagy reported POA. [phone] . Prognosis 62 year old female with severe sepsis, due to large right sided necrotizing wound + for MRSA. Remains critically ill but has shown evidence of improvement -- WBC is down-trending; renal function has normalized; and has been able to wean off pressors. Prognosis is guarded. Her large, complicated wound may require weeks more of hospitalization . Pt's developmental delays may hinder pt's ability to convalesce. . Code Status: Full Code Plan == Code Status : Full Code == Decision Making: Patient is incapacitated to make her own health care decisions with no reasonable hope of recovering capacity. Has hx of developemental delay, and reportedly has a guardian -- Mr. Felipe Nagy. Mr. Nagy has been asked to bring in guardianship paperwork but he has not done so to date. ==Goals of medical treatment: Goals at this time are aggressive. "Do everything you can." == Symptoms (see symptoms above) * dyspnea: managed with mechanical ventilation * pain- s/p surgery, extensive right sided wound/ prolonged bedbound status / etc. Currently being managed with fentanyl drip with adequate results. No further recommendations at this time. == Palliative care certified social workers in health care will try once again to confirm guardianship relationship of Mr. Nagy to assure we are working with the correct decision maker. == Palliative car will continue to follow to assist with symptom management and to further clarify goals of medical treatment as the clinical course evolves. . Attestation To help prompt me to consider important information that might be impacting today's encounter and assessment, information from prior notes written by myself or my colleagues may have been "brought forward" into today's note. My signature on this note, however, is an attestation that I personally performed the exam, history, and/or decision-making noted today, and, unless otherwise indicated, the interactions with patient, family, and staff as well as the review of records all occurred today. I also attest that the listed assessment and stated plan reflect my best clinical judgment today based on the combination of historical information, prior notes, and today's exam/ interactions. When time spent is documented, it refers only to time spent today by the signer, or if indicated, combined time spent today by collaborating physician/nurse practitioner. . Felipe Carrington MD August 01, 2017 12:50
[2017-08-01] MEDS: MIDAZOLAM 50 MG/50 ML INJ 50 ML IV PRN ×2 (14:37→20:25)
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
--- NOTE | 2017-08-01 15:31 | HHI.CCPN ---
Subjective Remarks/Hospital Course This is a 62-year-old female with a history of developmental delay and recurrent urinary tract infections who presents with new onset right-sided abdominal and flank pain. Per the [facility] service admission note this is been going on for approximately 4 weeks. Patient has a history of developmental delay and is difficult to get a complete history from her, no analysis with her on my evaluation. On my evaluation she endorses flank pain radiating around to her chest. She endorses subjective chills. Denies recent fevers to me. Also endorses nausea, vomiting. In the emergency department she was found to have significant erythema, rubor, dolor, and edema from approximately the fifth intercostal space down to the eighth or ninth intercostal space wrapping around from the midline in the back all the way around to just medial to the breast. CT scan of the abdomen and pelvis confirms significant subcutaneous edema, but this area of edema appears to be contained by intact fascial planes, particularly in the midline of the back. Laboratory evidence is significant for a white blood cell count of 27k, creatinine is 3.58, potassium 5.4, bicarb of 17.9, anion gap elevated at 15, BUN of 64, an initial lactate of 5.1. In the emergency department she received 3 L of crystalloid IV fluids. Despite this she is hypotensive with a mean arterial pressure of 51. Critical care medicine is consulted to evaluate manage her presumed septic shock secondary to severe cellulitis of the trunk. I have given her an additional liter of crystalloid and then placed central venous access, see separate procedure note for details. In addition her lactate is starting to clear and is now 2.9 with an more currently pending, however it is not clearing fast enough and she remains oliguric. I placed a [place] for accurate hourly I's and O's. The remainder of the review systems for the patient is negative except documented in the HPI, although this is severely limited by her baseline developmental delay. Subjective 07/23: Patient remains on vasopressors, noted metabolic acidosis, bicarbonate level of 15. Sodium bicarbonate infusion initiated. 07/24 Patient was intubated early this morning now on Vasopressin and Neosyn 300 mics in addition patient is on Amio and Bicarb drips. WBC increased 31. CT abd/pelvis showed right sided cellulites and developing myositis. 07/25 Patient went to OR yesterday s/p wide excisional debridement of soft tissue infection with VAC placement for necrotizing soft tissue infection of abdomen, right hip area right torso area measuring approximately 32 x 18 inches x 2 inches deep. She remains on Vasopressin 0.04 and Neosyn down to 120 mics. On Amio drip. 07/26 No events overnight. Off all pressors, WBC is trending down. On Amio drip. 07/27 Patient remains intubated for return to OR today and wound vac exchange. 07/28 Patient s/p excisional debridement with vac change yesterday intubated and sedated with Fentanyl infusion. 07/29 Patient remains intubated and sedated with Fentanyl and Versed drips. Afebrile. 07/30 No events overnight. Patient remains sedated with Fentanyl drip and intubated. For OR today for further debridement and wound vac exchange. Afebrile. 07/31 Patient went to OR yesterday for vac exchange, Afebrile, WBC is trending down, Intubated and now sedated with Fentanyl and Versed 2mg/hr 08/01: Remains sedated, orally intubated on mechanical ventilation. Scheduled for OR today for vac exchange. Objective Vital Signs Date Time Temp Pulse Resp B/P (MAP) Pulse Ox O2 Delivery O2 Flow Rate FiO2 08/01/17 14:00 99 08/01/17 12:22 100 35 08/01/17 12:00 97.4 15 145/74 (97) Intake and Output 08/01/17 08/01/17 08/02/17 08:00 16:00 00:00 Intake Total 1249 ml 655.1 ml Output Total 900 ml Balance 349 ml 655.1 ml Result Diagram: 08/01/17 0405 08/01/17 0405 Imaging Last Impressions Chest X-Ray 07/30/17 0000 Signed Impressions: Service Date/Time: Sunday, July 30, 2017 08:14 - CONCLUSION: Underinflation with atelectasis at the lung bases. Otherwise, no acute finding is seen given the technique. Derrick García MD Brain MRI 07/28/17 0000 Signed Impressions: Service Date/Time: Friday, July 28, 2017 14:38 - CONCLUSION: 1. Unremarkable MRI examination the brain. 2. No acute abnormality or interval change. Bob Daly MD Chest CT 07/24/17 0000 Signed Impressions: Service Date/Time: Monday, July 24, 2017 05:36 - CONCLUSION: 1. Stranding in the subcutaneous tissues about the right flank with fluid adjacent to the latissimus dorsi. Stranding extends up into the right breast. Findings could represent developing cellulitis. 2. In addition, there is now a small right-sided effusion with bilateral dependent atelectatic changes. Jeroem Brady MD Abdomen/Pelvis CT 07/24/17 0000 Signed Impressions: Service Date/Time: Monday, July 24, 2017 05:36 - CONCLUSION: 1. CT findings concerning for a right sided cellulitis and developing myositis. There is some asymmetric prominence of the latissimus dorsi muscle on the right. Unorganized fluid in the deep subcutaneous tissues adjacent to the muscle belly. No drainable fluid collection, however. 2. Developing dependent areas of consolidation, right greater than left with an associated small right-sided effusion. Jerome Brady MD Head CT 07/22/17 1253 Signed Impressions: Service Date/Time: Saturday, July 22, 2017 13:26 - CONCLUSION: No acute disease. Derrick Henry MD Objective Remarks GENERAL: Elderly female, lying in bed intubated. HEENT: Normocephalic. Atraumatic. Pupils equal, round, reactive, conjugate. Mucous membranes are moist NECK: Trachea is midline. There is no JVD. CHEST: Equal chest rise. Room air. CARDIOVASCULAR: RRR, nl S1, S2 ABDOMEN: Soft, nontender, nondistended, +BS, wound Vac in place. MUSCULOSKELETAL: Pulses 2+. No peripheral edema. Cyanosis of 2-4 toes on right NEUROLOGICAL: Intubated Date of Insertion: Jul 22, 2017 A/P Assessment and Plan Active problems: VDRF s/p Septic shock Right flank severe cellulitis, ? Nec fasc Acute kidney injury Leukocytosis Elevated CK Anemia Thrombocytopenia Hypothyroidism Plan: Plan by systems: Neurologic: Neuro checks per ICU protocol Fentanyl, Versed infusion for sedation and vent synchrony. Daily sedation vacation. 07/22 CT brain: No acute disease MRI brain 07/28 Unremarkable Tylenol 650 mg every 6 hours as needed for pain and/or temperature greater than 100.5 Respiratory: Continue with vent support keep sats >92% On PRVC 10, TV 350 IT:0.8, PEEP:5, FIO2: 30% Bronchodilators, ICU vent bundle. SBT daily as lawrence. CXR 07/30: Atelectasis at lung bases Cardiovascular: Monitor HR and BP keep MAP>65mmHg. Taper steroids- HC 25mg IV Q12 Echo showed EF 50-55% Renal: Monitor renal function, I/O's, avoid nephrotoxins Renal is following- . On Free water 300ml Q6, monitor sodium level. Decrease D5W@42ml/hr, monitor sodium level, on Diuril 250mg IV daily per renal. FEN/GI: On Pepcid 10mg BID for GI prophylaxis Resume Tube feeds- Glucerna 1.5 with goal rate 45ml/hr ) ID: Continue with abx (Clindamycin, Daptomycin) ID is following. Monitor for signs of infections( Fever, WBC) WBC is trending down 07/24, 07/27 Wound cx :MRSA 07/24 BC :NGTD 07/23: urine cx: No growth 07/22 BC: NGTD Patient is scheduled for OR today for further debridement Path report: Abdominal soft tissue excision: Skin and subcutaneous adipose tissue with acute cellulites and multifocal abscess formation 07/30 Wound vac exchange 07/27 s/p excisional debridement with vac change of torso and abdomen 07/24 s/p wide excisional debridement of soft tissue infection with VAC placement for necrotizing soft tissue infection of abdomen, right hip area right torso area measuring approximately 32 x 18 inches x 2 inches deep. Surgery -Dr. Dumont. Heme: Monitor CBC, will transfuse 1u PRBC for Hgb 7.2 Endocrine: levothyroxine 112 mcg/day on hold. TSH:0.08 on 07/24 Glucose monitoring per ICU protocol. -- Continue SSI medium scale for glycemic control [place]: Cyanosis of toes on right> Likely pressors induced ischemia of toes. Seen by vascular surg- no additional vascular work up needed given palpable pulses, Prophylaxis: GI Prophylaxis Famotidine DVT Prophylaxis -- SCDs Lines: Central line placed on 07/22. Peripheral IVs 2, CCT 30 mins Artis De La Torre MD August 01, 2017 15:31
[2017-08-01] MEDS: SODIUM CHLORIDE 0.9% IV SCH (17:40)
[2017-08-01] MEDS: DEXTROSE 5% IN WATE 1000ML INJ 1,000 ML IV SCH (17:40)
[2017-08-01] MEDS: DAPTOMYCIN IV SCH (17:40)
[2017-08-02] VITALS (17 sets, daily range): BP systolic 96–147; BP diastolic 53–75; PULSE 70–103; RESP 12–27; TEMP 97.8–98.9; O2SAT 97–100
[2017-08-02] MEDS: MIDAZOLAM 50 MG/50 ML INJ 50 ML IV PRN ×3 (01:34→22:04)
[2017-08-02] MEDS: INSULIN NovoLIN REGULAR SUPPLEMENTAL SCALE SQ SCH ×5 (04:00→20:00)
[2017-08-02] MEDS: FREE WATER G-TUBE SCH ×3 (05:52→17:13)
[2017-08-02] MEDS: DILTIAZEM HCL 60 MG TAB PO SCH ×3 (05:52→18:00)
[2017-08-02] MEDS: CALCIUM/VITAMIN D 250 MG/125 U TAB PO SCH (08:14)
[2017-08-02] MEDS: HYDROCORTISONE SOD SUCCINATE 100 MG VIAL IV PUSH SCH ×2 (08:14→20:31)
[2017-08-02] MEDS: FAMOTIDINE 20 MG TAB PO SCH ×2 (08:14→20:31)
[2017-08-02] MEDS: CHLOROTHIAZIDE SOD 500 MG VIAL IV SCH (08:15)
[2017-08-02] MEDS: DOCUSATE SODIUM 50 MG/SENNA 8.6 MG TAB PO SCH ×2 (08:15→20:32)
[2017-08-02] MEDS: SODIUM CHLORIDE 0.9% FLUSH 10 ML FLUSH IV FLUSH SCH ×2 (08:15→20:31)
[2017-08-02] MEDS: MULTIVITAMIN-OPHTHALMIC 1 TAB PO SCH (08:15)
[2017-08-02] MEDS: CHLORHEXIDINE 0.12% (ORAL KIT) 15 ML CUP MT SCH ×2 (08:15→20:00)
[2017-08-02] MEDS: BUDESONIDE 9 MG PO SCH (08:15)
[2017-08-02] MEDS: fentaNYL DRIP 250 ML IV PRN ×2 (08:39→22:03)
--- NOTE | 2017-08-02 09:44 | HHI.IDPN ---
Subjective Subjective Remarks ID COVERAGE Most of the history was obtained by review of medical records. Patient shortly being wheeled out to the operating room for surgical exploration of the site of necrotizing fasciitis Septic shock. Ms. Eldridge is a 62-year-old female who reportedly has developmental delays per chart review. Patient presented to the emergency department via EMS for evaluation of right-sided abdominal, flank and back erythema swelling and pain. Patient's care provider and power of ip attorney listed on the chart is Mr. Felipe Nagy who can be contacted at [phone]. Patient had earlier reported to others that she was feeling unwell for the past 4 weeks. Patient reported increase in her migraine symptoms. Patient also reported continuous, nonradiating sharps times burning pain over the right upper quadrant that is expanded to include her right flank and back. She denies any trauma to these areas. Patient reported to others prior to being intubated that she had nausea and vomiting associated with decreased appetite. Patient also had reported to others that she was dizzy and lightheaded. Per review of records it appears that patient has had multiple falls as well as has had urinary incontinence at baseline with decreased urine output over the last few days. Patient also reported subjective symptoms such as burning with urination. Per EMS, patient was found to be hypotensive. Systolic pressure was recorded in the 70s. She received fluid in transit with minimal improvement. In the emergency department she was found to have significant erythema,pain and edema from approximately the fifth intercostal space down to the eighth or ninth intercostal space wrapping around from the midline in the back all the way around to just medial to the breast. CT scan of the abdomen and pelvis confirms significant subcutaneous edema, but this area of edema appears to be contained by intact fascial planes, particularly in the midline of the back. Laboratory evidence is significant for a white blood cell count of 27k, creatinine is 3.58, potassium 5.4, bicarb of 17.9, anion gap elevated at 15, BUN of 64, an initial lactate of 5.1. In the emergency department she received 3 L of crystalloid IV fluids. Critical care medicine is consulted to evaluate manage her presumed septic shock secondary to severe cellulitis of the trunk. Overnight critical care medicine was consulted for worsening sepsis and septic shock. Patient had to be intubated and upon evaluation was found to have evidence suggestive of necrotizing fasciitis involving similar areas as reported on the emergency room but had progressed beyond the line of demarcation. Patient was noted to have significant blisters and blackening of the areas. Critical care medicine change the regimen to Zosyn IV, vancomycin IV and added clindamycin IV and placed a surgical consult. Patient was evaluated by Dr. Thor Dumont of surgery and patient is being wheeled to the operating room shortly. At the time of my evaluation patient is in the ICU currently on high-dose Levophed as well as vasopressin with slight decrease in Levophed requirement after addition of clindamycin IV. Urine output is low. No diarrhea. No diffuse rash or skin changes other than as described. Notes reviewed D/W RN Remains in ICU. Off Pressors. Sedated on the vent - on CPAP currently To go to OR today for wound vac change Temps ok No rash Antibiotics Dapto IV Current Medications Medications (Trade) Dose Ordered Sig/Beatrice Route Start Time Stop Time Status Last Admin (Ocuvite) 1 tab DAILY PO 07/23/17 09:00 08/02/17 08:15 Patient Own Medication PT OWN MED: BUDESON... DAILY PO 07/23/17 09:00 (Oscal-D 250-125) 500 mg DAILY PO 07/23/17 09:00 08/02/17 08:14 (Pepcid) 10 mg BID PO 07/22/17 21:00 08/02/17 08:14 (NS Flush) 2 ml UNSCH PRN IV FLUSH 07/22/17 16:45 08/01/17 08:02 (NS Flush) 2 ml BID IV FLUSH 07/22/17 21:00 08/02/17 08:15 (Zofran Inj) 4 mg Q6H PRN IVP 07/22/17 16:45 07/23/17 22:11 (Tylenol) 650 mg Q6H PRN PO 07/22/17 16:45 (Ultram) 50 mg Q6H PRN PO 07/22/17 16:45 07/30/17 06:00 (Ultram) 100 mg Q4H PRN PO 07/22/17 16:45 07/30/17 13:39 (Narcan Inj) 0.4 mg UNSCH PRN IV PUSH 07/22/17 16:45 (Natalie-Colace) 1 tab BID PO 4/28/18 21:00 07/30/17 20:57 (Senokot) 17.2 mg Q12H PRN PO 07/22/17 16:45 (Dulcolax Supp) 10 mg DAILY PRN RECTAL 07/22/17 16:45 (Lactulose Liq) 30 ml DAILY PRN PO 07/22/17 16:45 ([facility] [place] [facility] [place] Patient in critical care unit? Ass... Q361D .XX 07/22/17 18:45 (Milk Of Magnesia Liq) 30 ml Q12H PRN PO 07/23/17 15:30 (Phenergan Inj) 12.5 mg Q6H PRN IV-CENTRAL 07/23/17 15:30 (Peridex 0.12% Liq) 15 ml BID@08,20 MT 07/24/17 08:00 08/02/17 08:15 Fentanyl Citrate 250 ml @ 5 mls/hr TITRATE PRN IV 07/24/17 03:15 08/02/17 08:39 (Brethine Inj) 1 mg UNSCH PRN SQ 07/24/17 17:45 (Morphine Inj) 2 mg Q3H PRN IV PUSH 07/24/17 20:45 07/31/17 01:51 (D50w (Vial) Inj) 50 ml UNSCH PRN IV PUSH 07/25/17 08:45 (Glucagon Inj) 1 mg UNSCH PRN OTHER 07/25/17 08:45 Potassium Chloride 100 ml @ 50 mls/hr Q2H PRN IV 07/28/17 09:00 07/28/17 12:57 Potassium Chloride 100 ml @ 50 mls/hr Q2H PRN IV 07/28/17 09:00 07/29/17 02:04 (K-Lyte Cl Eff) 50 meq UNSCH PRN PO 07/28/17 09:00 07/29/17 02:05 Potassium Chloride 100 ml @ 25 mls/hr UNSCH PRN IV 07/28/17 09:00 Potassium Chloride 100 ml @ 50 mls/hr Q2H PRN IV 07/28/17 09:00 07/29/17 02:05 Magnesium Sulfate 4 gm/Sodium Chloride 100 ml @ 50 mls/hr UNSCH PRN IV 07/28/17 09:00 (Mag-Ox) 800 mg UNSCH PRN PO 07/28/17 09:00 Magnesium Sulfate 2 gm/Sodium Chloride 100 ml @ 50 mls/hr UNSCH PRN IV 07/28/17 09:00 (K-Phos) 2,000 mg Q4H PRN PO 07/28/17 09:00 Sodium Phosphate 30 mmol/Sodium Chloride 250 ml @ 42 mls/hr UNSCH PRN IV 07/28/17 09:00 (K-Phos) 2,000 mg UNSCH PRN PO/TUBE 07/28/17 09:00 Potassium Phosphate 30 mmol/ Sodium Chloride 260 ml @ 42 mls/hr UNSCH PRN IV 07/28/17 09:00 08/01/17 08:13 (Diuril Inj) 250 mg DAILY IV 07/28/17 10:00 08/02/17 08:15 (Free Water) 300 ml Q6HR G-TUBE 07/28/17 12:00 08/01/17 23:33 (NovoLIN R SUPPLEMENTAL SCALE) 1 Q4HR SQ 07/28/17 12:00 08/01/17 08:01 Midazolam HCl 50 ml @ 2 mls/hr TITRATE PRN IV 07/28/17 12:00 08/02/17 01:34 Dextrose 1,000 ml @ 42 mls/hr [id number] IV 07/29/17 10:30 08/01/17 17:40 (Cardizem) 60 mg Q6HR PO 07/29/17 14:15 08/01/17 23:33 (Apresoline Inj) 10 mg Q6H PRN IV PUSH 07/29/17 14:15 07/29/17 14:33 Daptomycin 690 mg/ Sodium Chloride 100 ml @ 200 mls/hr Q24H IV 07/29/17 18:00 08/01/17 17:40 (SoluCORTEF INJ) 25 mg Q12HR IV PUSH 07/31/17 09:00 08/02/17 08:14 Lines Line sites with no e.o infection Past Medical History Anxiety Depression Developmental delays - mental handicap Headaches/migraines Hypothyroidism GERD Chest pain Hx of UTIs Renal insufficiency Bladder incontinence Chronic back pain Thyroid surgery EGD - 08/30/16 Cholecystectomy - 03/04/15 D&C Hysterectomy Colonoscopy - 07/30/16 and 08/11/15 Allergies: Coded Allergies: No Known Allergies (Verified Allergy, Unknown, 07/22/17) Objective . Vital Signs Date Time Temp Pulse Resp B/P (MAP) Pulse Ox O2 Delivery O2 Flow Rate FiO2 08/02/17 08:00 35 08/02/17 08:00 85 08/02/17 07:33 100 35 08/02/17 06:00 72 08/02/17 04:12 100 35 08/02/17 04:00 97.8 71 13 97/56 (70) 100 08/02/17 04:00 35 08/02/17 04:00 71 08/02/17 02:00 70 08/02/17 00:38 100 35 08/02/17 00:00 77 08/02/17 00:00 77 17 117/59 (78) 100 08/02/17 00:00 35 08/01/17 22:00 75 08/01/17 21:34 100 35 08/01/17 20:00 35 08/01/17 20:00 98.5 84 29 138/70 (92) 100 08/01/17 20:00 84 08/01/17 18:00 73 08/01/17 16:00 74 08/01/17 16:00 97.8 74 11 87/54 (65) 100 08/01/17 16:00 35 08/01/17 15:50 100 35 08/01/17 15:00 77 12 92/53 (66) 100 08/01/17 14:00 99 08/01/17 14:00 99 17 164/84 (110) 100 08/01/17 13:00 81 14 115/58 (77) 100 08/01/17 12:22 100 35 08/01/17 12:00 89 08/01/17 12:00 97.4 89 15 145/74 (97) 100 08/01/17 12:00 35 08/01/17 10:00 75 . Laboratory Tests Test 08/01/17 01:14 08/01/17 04:05 Hemoglobin 8.5 GM/DL 7.9 GM/DL Hematocrit 25.8 % 24.5 % White Blood Count 14.6 TH/MM3 Red Blood Count 2.93 MIL/MM3 Mean Corpuscular Volume 83.7 FL Mean Corpuscular Hemoglobin 26.9 PG Mean Corpuscular Hemoglobin Concent 32.2 % Red Cell Distribution Width 15.9 % Platelet Count 261 TH/MM3 Mean Platelet Volume 7.8 FL Neutrophils (%) (Auto) 84.5 % Lymphocytes (%) (Auto) 11.1 % Monocytes (%) (Auto) 3.5 % Eosinophils (%) (Auto) 0.8 % Basophils (%) (Auto) 0.1 % Neutrophils # (Auto) 12.3 TH/MM3 Lymphocytes # (Auto) 1.6 TH/MM3 Monocytes # (Auto) 0.5 TH/MM3 Eosinophils # (Auto) 0.1 TH/MM3 Basophils # (Auto) 0.0 TH/MM3 CBC Comment DIFF FINAL Differential Comment Laboratory Tests Test 08/01/17 04:05 Blood Urea Nitrogen 27 MG/DL Creatinine 0.67 MG/DL Random Glucose 172 MG/DL Total Protein 4.2 GM/DL Albumin 1.4 GM/DL Calcium Level 8.2 MG/DL Phosphorus Level 1.5 MG/DL Magnesium Level 1.6 MG/DL Alkaline Phosphatase 70 U/L Aspartate Amino Transf (AST/SGOT) 11 U/L Alanine Aminotransferase (ALT/SGPT) 17 U/L Total Bilirubin 0.3 MG/DL Sodium Level 144 MEQ/L Potassium Level 3.2 MEQ/L Chloride Level 108 MEQ/L Carbon Dioxide Level 31.9 MEQ/L Anion Gap 4 MEQ/L Estimat Glomerular Filtration Rate 89 ML/MIN Imaging Chest X-Ray 07/30/17 0000 Signed Impressions: Service Date/Time: Sunday, July 30, 2017 08:14 - CONCLUSION: Underinflation with atelectasis at the lung bases. Otherwise, no acute finding is seen given the technique. Derrick García MD Brain MRI 07/28/17 0000 Signed Impressions: Service Date/Time: Friday, July 28, 2017 14:38 - CONCLUSION: 1. Unremarkable MRI examination the brain. 2. No acute abnormality or interval change. Bob Daly MD Chest CT 07/24/17 0000 Signed Impressions: Service Date/Time: Monday, July 24, 2017 05:36 - CONCLUSION: 1. Stranding in the subcutaneous tissues about the right flank with fluid adjacent to the latissimus dorsi. Stranding extends up into the right breast. Findings could represent developing cellulitis. 2. In addition, there is now a small right-sided effusion with bilateral dependent atelectatic changes. Jerome Brady MD Abdomen/Pelvis CT 07/24/17 0000 Signed Impressions: Service Date/Time: Monday, July 24, 2017 05:36 - CONCLUSION: 1. CT findings concerning for a right sided cellulitis and developing myositis. There is some asymmetric prominence of the latissimus dorsi muscle on the right. Unorganized fluid in the deep subcutaneous tissues adjacent to the muscle belly. No drainable fluid collection, however. 2. Developing dependent areas of consolidation, right greater than left with an associated small right-sided effusion. Jerome Brady MD Head CT 07/22/17 1253 Signed Impressions: Service Date/Time: Saturday, July 22, 2017 13:26 - CONCLUSION: No acute disease. Derrick Henry MD Physical Exam GENERAL: Thin built, well-developed patient, in no apparent distress. On CPAP SKIN: No generalized rash. Dry, cool extremities HEAD: Atraumatic. Normocephalic. No temporal or scalp tenderness. EYES: Pupils equal round and reactive. Extraocular motions intact. No scleral icterus. No injection or drainage. ENT: Intubated. Moist mucosa NECK: Trachea midline. Supple, nontender, no meningeal signs. CARDIOVASCULAR: Heart sounds audible. No murmur appreciated. RESPIRATORY: Clear to auscultation. Breath sounds equal bilaterally. No wheezes , rales, or rhonchi. GASTROINTESTINAL: Abdomen soft. Wound vac area noted. Extensive area covered with wound vac sponge MUSCULOSKELETAL: Extremities without clubbing, cyanosis. Some pedal edema. Ischemic toes R foot 2-4 toes and tip of 5th toe. Cool feet NEUROLOGICAL: Sedated. Psych could not be assessed IV line sites with no e.o infection Assessment & Plan Remarks Septic shock with multiorgan dysfunction syndrome Sepsis present on admission Necrotizing fasciitis of the abdominal wall ? History of multiple falls likely the precipitant. Acute rhabdomyolysis Acute renal failure: Prerenal, sepsis, rhabdomyolysis Acute metabolic encephalopathy likely sepsis related. Baseline unknown Leukemoid reaction likely due to worsening sepsis, improving Recommendations: Continue Dapto IV (Vanco DELMI 2, clinically still has new areas of erythema and e /o infection outside wound vac margin, acute renal failure) Follow cultures Monitor progress For wound vac change today in the OR Weaning per CCM Follow clinically Discussed with Wanda Barnes MD August 02, 2017 09:44
[2017-08-02 10:26] LABS: INTERNATIONAL NORMALIZED RATIO 1.1 RATIO; PROTHROMBIN TIME - PATIENT 11.5 SEC (9.8-11.6)
[2017-08-02 10:27] LABS: AUTOMATED NEUTROPHIL # 14.7 TH/MM3 (1.8-7.7); BASOPHIL % 0.2 % (0.0-2.0); EOSINOPHIL # 0.1 TH/MM3 (0-0.4); EOSINOPHIL % 0.6 % (0.0-4.0); HEMATOCRIT 29.8 % (35.0-46.0); HEMOGLOBIN 9.6 GM/DL (11.6-15.3); LYMPH % 9.3 % (9.0-44.0); LYMPHOCYTE # 1.6 TH/MM3 (1.0-4.8); MEAN CORPUSCULAR HEMOGLOBIN 26.8 PG (27.0-34.0); MEAN CORPUSCULAR HGB CONC 32.4 % (32.0-36.0); MEAN PLATELET VOLUME 7.7 FL (7.0-11.0); MONO % 4.6 % (0.0-8.0); MONOCYTE # 0.8 TH/MM3 (0-0.9); NEUT % 85.3 % (16.0-70.0); PLATELET COUNT 429 TH/MM3 (150-450); RED BLOOD COUNT 3.59 MIL/MM3 (4.00-5.30); RED CELL DISTRIBUTION WIDTH 15.8 % (11.6-17.2); WHITE BLOOD COUNT 17.2 TH/MM3 (4.0-11.0)
[2017-08-02 10:49] LABS: ALBUMIN 1.9 GM/DL (3.4-5.0); AST (GOT) 16 U/L (15-37); BICARBONATE 27.9 MEQ/L (21.0-32.0); BLOOD UREA NITROGEN 18 MG/DL (7-18); CALCIUM 9.1 MG/DL (8.5-10.1); CHLORIDE 105 MEQ/L (98-107); CREATININE 0.62 MG/DL (0.50-1.00); GLOMERULAR FILTRATION RATE 98 ML/MIN (>89); GLUCOSE,RANDOM 129 MG/DL (74-106); MAGNESIUM 1.6 MG/DL (1.5-2.5); SODIUM (NA) 141 MEQ/L (136-145)
[2017-08-02 10:57] LABS: ALKALINE PHOSPHATASE 84 U/L (45-117); ALT (GPT) 22 U/L (10-53); TOTAL BILIRUBIN ADULT 0.5 MG/DL (0.2-1.0); TOTAL PROTEIN 5.4 GM/DL (6.4-8.2)
[2017-08-02] MEDS ORDERED: SODIUM CHLORID 0.9% 500 ML INJ 500 ML IV ONE (12:00)
[2017-08-02] MEDS ORDERED: ROCURONIUM INJ 50 MG/5 ML SYRINGE IV PUSH ONE (12:00)
[2017-08-02] MEDS ORDERED: PROPOFOL 200 MG/20 ML AMP IV ONE (12:00)
[2017-08-02] MEDS ORDERED: ePHEDrine/NS 25 MG/5 ML SYRINGE IV ONE (12:00)
[2017-08-02] MEDS ORDERED: PHENYLEPH/NS 1000 MCG/10 ML SYR IV ONE (12:00)
--- NOTE | 2017-08-02 13:48 | HHI.CCPN ---
Subjective Remarks/Hospital Course This is a 62-year-old female with a history of developmental delay and recurrent urinary tract infections who presents with new onset right-sided abdominal and flank pain. Per the [facility] service admission note this is been going on for approximately 4 weeks. Patient has a history of developmental delay and is difficult to get a complete history from her, no analysis with her on my evaluation. On my evaluation she endorses flank pain radiating around to her chest. She endorses subjective chills. Denies recent fevers to me. Also endorses nausea, vomiting. In the emergency department she was found to have significant erythema, rubor, dolor, and edema from approximately the fifth intercostal space down to the eighth or ninth intercostal space wrapping around from the midline in the back all the way around to just medial to the breast. CT scan of the abdomen and pelvis confirms significant subcutaneous edema, but this area of edema appears to be contained by intact fascial planes, particularly in the midline of the back. Laboratory evidence is significant for a white blood cell count of 27k, creatinine is 3.58, potassium 5.4, bicarb of 17.9, anion gap elevated at 15, BUN of 64, an initial lactate of 5.1. In the emergency department she received 3 L of crystalloid IV fluids. Despite this she is hypotensive with a mean arterial pressure of 51. Critical care medicine is consulted to evaluate manage her presumed septic shock secondary to severe cellulitis of the trunk. I have given her an additional liter of crystalloid and then placed central venous access, see separate procedure note for details. In addition her lactate is starting to clear and is now 2.9 with an more currently pending, however it is not clearing fast enough and she remains oliguric. I placed a Terrazas for accurate hourly I's and O's. The remainder of the review systems for the patient is negative except documented in the HPI, although this is severely limited by her baseline developmental delay. Subjective 07/23: Patient remains on vasopressors, noted metabolic acidosis, bicarbonate level of 15. Sodium bicarbonate infusion initiated. 07/24 Patient was intubated early this morning now on Vasopressin and Neosyn 300 mics in addition patient is on Amio and Bicarb drips. WBC increased 31. CT abd/pelvis showed right sided cellulites and developing myositis. 07/25 Patient went to OR yesterday s/p wide excisional debridement of soft tissue infection with VAC placement for necrotizing soft tissue infection of abdomen, right hip area right torso area measuring approximately 32 x 18 inches x 2 inches deep. She remains on Vasopressin 0.04 and Neosyn down to 120 mics. On Amio drip. 07/26 No events overnight. Off all pressors, WBC is trending down. On Amio drip. 07/27 Patient remains intubated for return to OR today and wound vac exchange. 07/28 Patient s/p excisional debridement with vac change yesterday intubated and sedated with Fentanyl infusion. 07/29 Patient remains intubated and sedated with Fentanyl and Versed drips. Afebrile. 07/30 No events overnight. Patient remains sedated with Fentanyl drip and intubated. For OR today for further debridement and wound vac exchange. Afebrile. 07/31 Patient went to OR yesterday for vac exchange, Afebrile, WBC is trending down, Intubated and now sedated with Fentanyl and Versed 2mg/hr 08/01: Remains sedated, orally intubated on mechanical ventilation. Scheduled for OR today for vac exchange. 08/02: Remains intubated scheduled for OR again today. Antibiotics per ID. Slight increase in WBC count is 17.2 Objective Vital Signs Date Time Temp Pulse Resp B/P (MAP) Pulse Ox O2 Delivery O2 Flow Rate FiO2 08/02/17 12:00 103 08/02/17 12:00 98.9 27 147/75 (99) 100 08/02/17 11:27 35 Intake and Output 08/02/17 08/02/17 08/03/17 08:00 16:00 00:00 Intake Total 607 ml Output Total 1200 ml Balance -593 ml Result Diagram: 08/02/17 1000 08/02/17 1000 Imaging Last Impressions Chest X-Ray 07/30/17 0000 Signed Impressions: Service Date/Time: Sunday, July 30, 2017 08:14 - CONCLUSION: Underinflation with atelectasis at the lung bases. Otherwise, no acute finding is seen given the technique. Derrick García MD Brain MRI 07/28/17 0000 Signed Impressions: Service Date/Time: Friday, July 28, 2017 14:38 - CONCLUSION: 1. Unremarkable MRI examination the brain. 2. No acute abnormality or interval change. Bob Daly MD Chest CT 07/24/17 0000 Signed Impressions: Service Date/Time: Monday, July 24, 2017 05:36 - CONCLUSION: 1. Stranding in the subcutaneous tissues about the right flank with fluid adjacent to the latissimus dorsi. Stranding extends up into the right breast. Findings could represent developing cellulitis. 2. In addition, there is now a small right-sided effusion with bilateral dependent atelectatic changes. Jerome Brady MD Abdomen/Pelvis CT 07/24/17 0000 Signed Impressions: Service Date/Time: Monday, July 24, 2017 05:36 - CONCLUSION: 1. CT findings concerning for a right sided cellulitis and developing myositis. There is some asymmetric prominence of the latissimus dorsi muscle on the right. Unorganized fluid in the deep subcutaneous tissues adjacent to the muscle belly. No drainable fluid collection, however. 2. Developing dependent areas of consolidation, right greater than left with an associated small right-sided effusion. Jerome Brady MD Head CT 07/22/17 1253 Signed Impressions: Service Date/Time: Saturday, July 22, 2017 13:26 - CONCLUSION: No acute disease. Derrick Henry MD Objective Remarks GENERAL: Elderly female, lying in bed intubated. HEENT: Normocephalic. Atraumatic. Pupils equal, round, reactive, conjugate. Mucous membranes are moist NECK: Trachea is midline. There is no JVD. CHEST: Equal chest rise. Room air. CARDIOVASCULAR: RRR, nl S1, S2 ABDOMEN: Soft, nontender, nondistended, +BS, wound Vac in place on the right flank covering extensive areas of debridement. MUSCULOSKELETAL: Pulses 2+. No peripheral edema. Cyanosis/gangrene of 2-4 toes on right NEUROLOGICAL: Intubated, sedated. Moving all extremities spontaneously Date of Insertion: Jul 22, 2017 A/P Assessment and Plan Active problems: Acute respiratory failure s/p Septic shock Right flank severe cellulitis/Nec fasc Acute kidney injury Leukocytosis Elevated CK Anemia Thrombocytopenia Hypothyroidism Plan: Plan by systems: Neurologic: Neuro checks per ICU protocol. Fentanyl, Versed infusion for sedation and vent synchrony. Daily sedation vacation. 07/22 CT brain: No acute disease MRI brain 07/28 Unremarkable Tylenol 650 mg every 6 hours as needed for pain and/or temperature greater than 100.5 Respiratory: Continue with vent support keep sats >92% On PRVC 10, TV 350 IT:0.8, PEEP:5, FIO2: 30% Bronchodilators, ICU vent bundle. SBT daily as lawrence. No extubation due to frequent or procedures CXR 07/30: Atelectasis at lung bases Cardiovascular: Monitor HR and BP keep MAP>65mmHg. Tapering steroids- HC 25mg IV Q12 Echo showed EF 50-55% Renal: Monitor renal function, I/O's, avoid nephrotoxins Renal is following- . On Free water 300ml Q6, monitor sodium level. Decreased D5W@42ml/hr, monitor sodium level, on Diuril 250mg IV daily per renal. FEN/GI: On Pepcid 10mg BID for GI prophylaxis Tube feeds- Glucerna 1.5 with goal rate 45ml/hr ) ID: Continue with abx (Daptomycin) ID is following. Monitor for signs of infections ( Fever, WBC) WBC is trending down 07/24, 07/27 Wound cx :MRSA 07/24 BC :NGTD 07/23: urine cx: No growth 07/22 BC: NGTD Patient is scheduled for OR today for further debridement Path report: Abdominal soft tissue excision: Skin and subcutaneous adipose tissue with acute cellulitis and multifocal abscess formation 07/30 Wound vac exchange 07/27 s/p excisional debridement with vac change of torso and abdomen 07/24 s/p wide excisional debridement of soft tissue infection with VAC placement for necrotizing soft tissue infection of abdomen, right hip area right torso area measuring approximately 32 x 18 inches x 2 inches deep. Surgery -Dr. Dumont. Heme: Monitor CBC, transfuse PRBC as needed Endocrine: levothyroxine 112 mcg/day on hold. TSH:0.08 on 07/24 Glucose monitoring per ICU protocol. -- Continue SSI medium scale for glycemic control [place]: Cyanosis/dry gangrene setting in of toes on right- Likely pressors induced ischemia of toes. Seen by vascular surg- no additional vascular work up needed given palpable pulses, Prophylaxis: GI Prophylaxis Famotidine DVT Prophylaxis -- SCDs Lines: Central line placed on 07/22. Peripheral IVs 2, CCT 30 mins Tracey Meza MD August 02, 2017 13:48
--- NOTE | 2017-08-02 14:15 | HHI.PR ---
Immediate Post Op Note Procedure Date: August 02, 2017 Pre Op Diagnosis: sepsis, necrotizing soft tissue infection, vac Post Op Diagnosis: same Surgeon: Tip Dumont MD Instructor Dramatic Arts(s): jv Procedure: excisional debridement with vac change to right torso, abdomen and back Findings: minimal fibrinous exudate Complications: none Specimen(s) removed: none Anesthesia: General Drains: Hemovac Patient to: ISC Patient Condition: Tip Posada MD August 02, 2017 14:15
--- NOTE | 2017-08-02 14:50 | HHI.HCPN ---
Reason for visit a. To assist with evaluation and management of symptoms including: pain, dyspnea. b. To assist medical decision maker(s) with: better understanding of current medical conditions; weighing benefits/burdens of medical treatment options; making medical treatment decisions. . Subjective/Interval History Patient scheduled to go to OR for further debridement and wound vac change later today. No significant change overnight. Nurse reports patient has appeared restless and intermittently uncomfortable in spite of the midazolam at 6 and the fentanyl at 200 mcg/hr. Nursing meir level scores, however are all listed as 0- 2. BP stable while off pressors. VSS afebrile. Labs stable. No imaging since 07/30. Renal function stable. Albumin level increasing. . Family/friend interactions No family/friends at bedside. . Advance Directives Durable Power of Web Development Instructor: Copy in medical record Advance Directive Specifics Date completed: An incomplete (only pages 2 and 3 of a 3 page document were avialable) and it did not specify health care decision making. . Health Care Surrogate(s): Mr. Felipe Nagy was given POA but the POA document did not specify health care decision making. . Documented care wishes: There is no written documentation of health care goals/preferences. . Significant change in goals: Goals remain aggressive. . Objective Vital Signs Date Time Temp Pulse Resp B/P (MAP) Pulse Ox O2 Delivery O2 Flow Rate FiO2 08/02/17 12:00 103 08/02/17 12:00 98.9 103 27 147/75 (99) 100 08/02/17 11:27 100 35 08/02/17 08:00 35 08/02/17 08:00 97.8 85 17 143/56 (85) 100 08/02/17 08:00 85 08/02/17 07:33 100 35 08/02/17 06:00 72 08/02/17 04:12 100 35 08/02/17 04:00 97.8 71 13 97/56 (70) 100 08/02/17 04:00 35 08/02/17 04:00 71 08/02/17 02:00 70 08/02/17 00:38 100 35 08/02/17 00:00 77 08/02/17 00:00 77 17 117/59 (78) 100 08/02/17 00:00 35 08/01/17 22:00 75 08/01/17 21:34 100 35 08/01/17 20:00 35 08/01/17 20:00 98.5 84 29 138/70 (92) 100 08/01/17 20:00 84 08/01/17 18:00 73 08/01/17 16:00 74 08/01/17 16:00 97.8 74 11 87/54 (65) 100 08/01/17 16:00 35 08/01/17 15:50 100 35 08/01/17 15:00 77 12 92/53 (66) 100 Intake & Output 08/02/17 08/02/17 07:00 19:00 Intake Total 907 ml Output Total 1200 ml Balance -293 ml Intake Oral 0 ml IV Total 350 ml Tube Feeding 257 ml Other 300 ml Output Urine Total 800 ml Drainage Total 400 ml # Bowel Movements 1 . Physical Exam CONSTITUTIONAL/GENERAL: This is an adequately nourished patient, sedated, intubated, mechanically ventilated in the MICU. She is restless with occasional grimacing. Does not open her eyes for me and is not able to follow commands. TUBES/LINES/DRAINS: Wound vac, left subclavian central line; Peripheral IV; ET tube, scales. SKIN: Right sided wound s/p debridment with wound vac from right thigh all the way up torso to below axillary area. EYES: Pupil equal,round, reactive. Unable to evaluate EOMs. . No scleral icterus. No injection or drainage. Fundi not examined. ENT: . Nose without bleeding or purulent drainage. ET tube in place. Dried blood on lips. NECK: Trachea midline. CARDIOVASCULAR: Regular rate and rhythm without murmurs, gallops, or rubs. No JVD. RESPIRATORY/CHEST: Symmetric, unlabored respirations. Clear to auscultation. Breath sounds equal bilaterally. GASTROINTESTINAL: Abdomen soft, non-tender, nondistended. No hepato-splenomegaly , or palpable masses. No guarding. Bowel sounds present. GENITOURINARY: Without palpable bladder distension. Scales catheter in place. MUSCULOSKELETAL: Extremities without clubbing, edema. Right middle toes are ischemic appearing throughout. Right little toe with ischemic appearance at tip. LYMPHATICS: Not examined. NEUROLOGICAL: Intubated and sedated. Does not awaken to voice or exam. Withdraws to noxious stimulus. PSYCHIATRIC: Unable to examine . . Diagnostic Tests Laboratory Laboratory Tests Test 07/31/17 03:41 08/01/17 01:14 08/01/17 04:05 08/02/17 10:00 White Blood Count 17.7 TH/MM3 (4.0-11.0) 14.6 TH/MM3 (4.0-11.0) 17.2 TH/MM3 (4.0-11.0) Red Blood Count 2.67 MIL/MM3 (4.00-5.30) 2.93 MIL/MM3 (4.00-5.30) 3.59 MIL/MM3 (4.00-5.30) Hemoglobin 7.2 GM/DL (11.6-15.3) 8.5 GM/DL (11.6-15.3) 7.9 GM/DL (11.6-15.3) 9.6 GM/DL (11.6-15.3) Hematocrit 22.6 % (35.0-46.0) 25.8 % (35.0-46.0) 24.5 % (35.0-46.0) 29.8 % (35.0-46.0) Mean Corpuscular Volume 84.4 FL (80.0-100.0) 83.7 FL (80.0-100.0) 83.0 FL (80.0-100.0) Mean Corpuscular Hemoglobin 27.0 PG (27.0-34.0) 26.9 PG (27.0-34.0) 26.8 PG (27.0-34.0) Mean Corpuscular Hemoglobin Concent 31.9 % (32.0-36.0) 32.2 % (32.0-36.0) 32.4 % (32.0-36.0) Red Cell Distribution Width 14.8 % (11.6-17.2) 15.9 % (11.6-17.2) 15.8 % (11.6-17.2) Platelet Count 241 TH/MM3 (150-450) 261 TH/MM3 (150-450) 429 TH/MM3 (150-450) Mean Platelet Volume 7.9 FL (7.0-11.0) 7.8 FL (7.0-11.0) 7.7 FL (7.0-11.0) Neutrophils (%) (Auto) 92.5 % (16.0-70.0) 84.5 % (16.0-70.0) 85.3 % (16.0-70.0) Lymphocytes (%) (Auto) 5.5 % (9.0-44.0) 11.1 % (9.0-44.0) 9.3 % (9.0-44.0) Monocytes (%) (Auto) 1.9 % (0.0-8.0) 3.5 % (0.0-8.0) 4.6 % (0.0-8.0) Eosinophils (%) (Auto) 0.0 % (0.0-4.0) 0.8 % (0.0-4.0) 0.6 % (0.0-4.0) Basophils (%) (Auto) 0.1 % (0.0-2.0) 0.1 % (0.0-2.0) 0.2 % (0.0-2.0) Neutrophils # (Auto) 16.4 TH/MM3 (1.8-7.7) 12.3 TH/MM3 (1.8-7.7) 14.7 TH/MM3 (1.8-7.7) Lymphocytes # (Auto) 1.0 TH/MM3 (1.0-4.8) 1.6 TH/MM3 (1.0-4.8) 1.6 TH/MM3 (1.0-4.8) Monocytes # (Auto) 0.3 TH/MM3 (0-0.9) 0.5 TH/MM3 (0-0.9) 0.8 TH/MM3 (0-0.9) Eosinophils # (Auto) 0.0 TH/MM3 (0-0.4) 0.1 TH/MM3 (0-0.4) 0.1 TH/MM3 (0-0.4) Basophils # (Auto) 0.0 TH/MM3 (0-0.2) 0.0 TH/MM3 (0-0.2) 0.0 TH/MM3 (0-0.2) CBC Comment DIFF FINAL DIFF FINAL DIFF FINAL Differential Comment Blood Urea Nitrogen 27 MG/DL (7-18) 27 MG/DL (7-18) 18 MG/DL (7-18) Creatinine 0.75 MG/DL (0.50-1.00) 0.67 MG/DL (0.50-1.00) 0.62 MG/DL (0.50-1.00) Random Glucose 219 MG/DL (74-106) 172 MG/DL (74-106) 129 MG/DL (74-106) Calcium Level 8.7 MG/DL (8.5-10.1) 8.2 MG/DL (8.5-10.1) 9.1 MG/DL (8.5-10.1) Sodium Level 147 MEQ/L (136-145) 144 MEQ/L (136-145) 141 MEQ/L (136-145) Potassium Level 3.7 MEQ/L (3.5-5.1) 3.2 MEQ/L (3.5-5.1) 3.5 MEQ/L (3.5-5.1) Chloride Level 109 MEQ/L (98-107) 108 MEQ/L (98-107) 105 MEQ/L (98-107) Carbon Dioxide Level 30.0 MEQ/L (21.0-32.0) 31.9 MEQ/L (21.0-32.0) 27.9 MEQ/L (21.0-32.0) Anion Gap 8 MEQ/L (5-15) 4 MEQ/L (5-15) 8 MEQ/L (5-15) Estimat Glomerular Filtration Rate 78 ML/MIN (>89) 89 ML/MIN (>89) 98 ML/MIN (>89) Total Protein 4.2 GM/DL (6.4-8.2) 5.4 GM/DL (6.4-8.2) Albumin 1.4 GM/DL (3.4-5.0) 1.9 GM/DL (3.4-5.0) Phosphorus Level 1.5 MG/DL (2.5-4.9) 2.0 MG/DL (2.5-4.9) Magnesium Level 1.6 MG/DL (1.5-2.5) 1.6 MG/DL (1.5-2.5) Alkaline Phosphatase 70 U/L (45-117) 84 U/L (45-117) Aspartate Amino Transf (AST/SGOT) 11 U/L (15-37) 16 U/L (15-37) Alanine Aminotransferase (ALT/SGPT) 17 U/L (10-53) 22 U/L (10-53) Total Bilirubin 0.3 MG/DL (0.2-1.0) 0.5 MG/DL (0.2-1.0) Prothrombin Time 11.5 SEC (9.8-11.6) Prothromb Time International Ratio 1.1 RATIO Activated Partial Thromboplast Time 24.1 SEC (24.3-30.1) . Result Diagram: 08/02/17 1000 08/02/17 1000 Microbiology Imaging Last Impressions Chest X-Ray 07/30/17 0000 Signed Impressions: Service Date/Time: Sunday, July 30, 2017 08:14 - CONCLUSION: Underinflation with atelectasis at the lung bases. Otherwise, no acute finding is seen given the technique. Derrick García MD Brain MRI 07/28/17 0000 Signed Impressions: Service Date/Time: Friday, July 28, 2017 14:38 - CONCLUSION: 1. Unremarkable MRI examination the brain. 2. No acute abnormality or interval change. Bob Daly MD Chest CT 07/24/17 0000 Signed Impressions: Service Date/Time: Monday, July 24, 2017 05:36 - CONCLUSION: 1. Stranding in the subcutaneous tissues about the right flank with fluid adjacent to the latissimus dorsi. Stranding extends up into the right breast. Findings could represent developing cellulitis. 2. In addition, there is now a small right-sided effusion with bilateral dependent atelectatic changes. Jerome Brady MD Abdomen/Pelvis CT 07/24/17 0000 Signed Impressions: Service Date/Time: Monday, July 24, 2017 05:36 - CONCLUSION: 1. CT findings concerning for a right sided cellulitis and developing myositis. There is some asymmetric prominence of the latissimus dorsi muscle on the right. Unorganized fluid in the deep subcutaneous tissues adjacent to the muscle belly. No drainable fluid collection, however. 2. Developing dependent areas of consolidation, right greater than left with an associated small right-sided effusion. Jerome Brady MD Head CT 07/22/17 1253 Signed Impressions: Service Date/Time: Saturday, July 22, 2017 13:26 - CONCLUSION: No acute disease. Derrick Henry MD Procedures Microbiology Date/Time Source Procedure Growth Status 07/24/17 05:05 Blood Peripheral Aerobic Blood Culture - Final NO GROWTH IN 5 DAYS Complete 07/24/17 05:05 Blood Peripheral Anaerobic Blood Culture - Final NO GROWTH IN 5 DAYS Complete 07/22/17 20:10 Nasal Washing Influenza Types A,B Antigen (DELMI) - Final NEGATIVE FOR FLU A AND B ANTIGEN.... Complete 07/23/17 16:05 Urine Catheterized Urine Urine Culture - Final NO GROWTH IN 48 HOURS. Complete 07/27/17 15:30 Wound Other Fungal Smear - Final NO FUNGAL ELEMENTS SEEN. Resulted 07/27/17 15:30 Wound Other Fungal Culture Pending Resulted . Assessment and Plan Disease Oriented Problem List: (1) Severe sepsis (2) Abdominal wall cellulitis Comment: required debridement of necrotizing tissue. (3) Acute kidney injury Comment: Improved (4) DM (diabetes mellitus) Symptom Scale: (1) Dyspnea 0-10 Scale: Unable to quantify (2) Pain 0-10 Scale: Unable to quantify Comment: No known pre-hospitalization pain syndromes. Current sources of pain probably include large wound; prolonged bedbound status; scales cathter; vascular access lines; restraints; ET tube. . Pertinent Non-Medical Issues Psychosocial:developmental delay, Spiritual: Has not belong to any particular gemma group. Per her partner, she has been recently interested in christian oriented audio cassettes Legal: Mr. Nagy brought in part of a POA dcoument signed by the patient Ethical issues impacting care: Patient is incapacitated. . Important Contacts Felipe Nagy reported POA. [phone] . Prognosis 62 year old female with severe sepsis, due to large right sided necrotizing wound + for MRSA. Remains critically ill but has shown evidence of improvement -- WBC is down-trending; renal function has normalized; and has been able to wean off pressors. Prognosis is guarded. Her large, complicated wound may require weeks more of hospitalization . Pt's developmental delays may hinder pt's ability to convalesce. . . Code Status: Full Code Plan == Code Status : Full Code == Decision Making: Patient is incapacitated to make her own health care decisions with no reasonable hope of recovering capacity. Has hx of developemental delay, and reportedly has a guardian -- Mr. Felipe Nagy. Mr. Nagy has been asked to bring in guardianship paperwork . This paperwork is incomplete and does not specifically mention heatlh care decision making. We don't have contact information for other family members at this time. Until we would be able to locate other family, Mr Nagy seem to be the appropriate proxy. ==Goals of medical treatment: Goals at this time are aggressive. "Do everything you can." == Symptoms (see symptoms above) * dyspnea: managed with mechanical ventilation * pain- s/p surgery, extensive right sided wound/ prolonged bedbound status / etc. Currently being managed with fentanyl drip with adequate results. No further recommendations at this time. == Plan * Mr. Nagy will see if he can find a completed version of the Power Of Web Development Instructor forms * Mr. Nagy will try and find contact information for surviving relatives. * We will run an [employer] report to see if we are able to find contact information on surviving family members. * When we have more information, we will discuss with legal department to make sure we are using the correct health care decision maker. * In the meantime, Mr. Nagy will continue to function as the health care proxy as he has demonstrated concern and interest over the years and has appeared to be advocating for her appropriately and we have access to no alternatives. == Palliative car will continue to follow to assist with symptom management and to further clarify goals of medical treatment as the clinical course evolves. . . Attestation To help prompt me to consider important information that might be impacting today's encounter and assessment, information from prior notes written by myself or my colleagues may have been "brought forward" into today's note. My signature on this note, however, is an attestation that I personally performed the exam, history, and/or decision-making noted today, and, unless otherwise indicated, the interactions with patient, family, and staff as well as the review of records all occurred today. I also attest that the listed assessment and stated plan reflect my best clinical judgment today based on the combination of historical information, prior notes, and today's exam/ interactions. When time spent is documented, it refers only to time spent today by the signer, or if indicated, combined time spent today by collaborating physician/nurse practitioner. . Felipe Carrington MD August 02, 2017 14:50
--- NOTE | 2017-08-02 16:25 | HHI.HCPN ---
[employer] results obtained. Only relative produced for Ms. Nina Eldridge was Rosa Nagy, . [employer] attempted on Rosa Nagy produced results for Joann Nagy AKA Chrissy Nagy. Phone numbers for Chrissy Yakov: [phone] (number just rings) and (number just rings). Unable to identify any matches on social media. At this time, seems appropriate to proceed with utilizing long-term friend and caregiver Felipe Nagy (Bud) as health care proxy decision maker. Palliative care will continue to follow throughout hospitalization. Maritza Martinez, CT MRI TECHNOLOGIST August 02, 2017 16:25
--- NOTE | 2017-08-02 16:41 | MP ---
cc: Tip Dumont MD DATE OF OPERATION: 08/02/2017 PREOPERATIVE DIAGNOSIS: Sepsis, necrotizing soft tissue infection of torso, abdomen and back, history of vacuum-assisted closure placement. POSTOPERATIVE DIAGNOSIS: Sepsis, necrotizing soft tissue infection of torso, abdomen and back, history of vacuum-assisted closure placement. PROCEDURE PERFORMED: Excisional debridement of soft tissue with exchange and replacement of VAC. SURGEON: Tip Dumont MD OPERATIONS LIEUTENANT: Yanely ANESTHESIA: GETA. IV FLUIDS: See anesthesia. ESTIMATED BLOOD LOSS: 15 mL DRAINS: Wound VAC. COMPLICATIONS: None. WOUND CLASSIFICATION: Dirty, contaminated. SPECIMENS: None. FINDINGS: Some excess purulent necrotic tissue that was further debrided. INDICATIONS: The patient is a 62-year-old female who presents with a history of septic shock with acute necrotizing soft tissue infection. She underwent several VAC changes and wide debridement, and she is back for a VAC change and debridement. DETAILS OF PROCEDURE: The patient was taken to the operating suite, placed in a decubitus position. She was prepped and draped in the usual sterile fashion. She was already intubated from the ICU. Brief timeout was done, stating correct patient, procedure, surgical site, and we were all in agreement with this. Attention directed to the superior aspect of the wound. [place] were removed around the periphery. The VAC sponge was removed. The superior aspect of the wound noted to have some necrotic debris, which was further excised. Also, medially anterior on the stomach, there was further excision of skin and fascia that appeared somewhat necrotic. On the lateral aspect, minimal debridement was done. Suction irrigation done to assist in debridement. Bovie cautery used for hemostasis. The sponge VAC was obtained. The sponge was cut to size, stapled to the skin edges. A plastic drape was placed and track pad placed to suction without evidence of leaking. The patient tolerated the procedure. No complication. The patient taken to ICU. MD SHARON Kowalski/DUANE , 04:09 PM , 04:39 PM
[2017-08-02] MEDS: POTASSIUM PHOSPHATE INJ 30 MMOL in SODIUM CHLOR 0.9% 250 ML INJ 250 ML IV PRN (17:00)
[2017-08-02] MEDS: DAPTOMYCIN IV SCH (17:14)
[2017-08-02] MEDS: SODIUM CHLORIDE 0.9% IV SCH (17:14)
[2017-08-02] MEDS: DEXTROSE 5% IN WATE 1000ML INJ 1,000 ML IV SCH (20:11)
[2017-08-03] VITALS (18 sets, daily range): BP systolic 87–151; BP diastolic 56–96; PULSE 75–110; RESP 11–21; TEMP 96.7–100; O2SAT 89–98
[2017-08-03] MEDS: INSULIN NovoLIN REGULAR SUPPLEMENTAL SCALE SQ SCH ×6 (03:48→20:00)
--- NOTE | 2017-08-03 05:05 | RADRPT ---
EXAM DATE/TIME: 08/03/2017 03:26 [facility] COMPARISON: CHEST SINGLE AP, July 30, 2017, 8:14. INDICATIONS : Shortness of breath, possible pulmonary disease. MEDICAL HISTORY : Diabetes mellitus type II. SURGICAL HISTORY : Hysterectomy. ENCOUNTER: Subsequent ACUITY: 1 week PAIN SCORE: Non-responsive. LOCATION: Bilateral chest FINDINGS: A single AP semierect view of the chest was obtained and again demonstrates an endotracheal tube in p lace with the tip 1 cm above the raoul. The nasogastric tube remains in place. A left subclavian gissel tral venous catheter is unchanged. There are no confluent infiltrates or effusions. The heart size re rosana within normal limits. There are multiple skin neema projected over the right lower chest and right side of the abdomen. Overlying electrocardiogram leads and oxygen tubing are present. CONCLUSION: Stable appearance with no acute cardiopulmonary disease. Kvng Nuñez MD on August 03, 2017 at 5:03 Board Certified Radiologist. This report was verified electronically.
[2017-08-03 05:25] LABS: AUTOMATED NEUTROPHIL # 16.6 TH/MM3 (1.8-7.7); BASOPHIL # 0.1 TH/MM3 (0-0.2); BASOPHIL % 0.4 % (0.0-2.0); EOSINOPHIL # 0.1 TH/MM3 (0-0.4); EOSINOPHIL % 0.7 % (0.0-4.0); HEMATOCRIT 26.4 % (35.0-46.0); HEMOGLOBIN 8.5 GM/DL (11.6-15.3); LYMPH % 9.8 % (9.0-44.0); LYMPHOCYTE # 1.9 TH/MM3 (1.0-4.8); MEAN CELL VOLUME 83.6 FL (80.0-100.0); MEAN CORPUSCULAR HGB CONC 32.3 % (32.0-36.0); MEAN PLATELET VOLUME 7.5 FL (7.0-11.0); MONO % 6.1 % (0.0-8.0); MONOCYTE # 1.2 TH/MM3 (0-0.9); PLATELET COUNT 423 TH/MM3 (150-450); RED BLOOD COUNT 3.16 MIL/MM3 (4.00-5.30); RED CELL DISTRIBUTION WIDTH 16.1 % (11.6-17.2); WHITE BLOOD COUNT 19.9 TH/MM3 (4.0-11.0)
[2017-08-03 05:50] LABS: ALBUMIN 1.6 GM/DL (3.4-5.0); ALT (GPT) 23 U/L (10-53); AST (GOT) 20 U/L (15-37); BICARBONATE 29.7 MEQ/L (21.0-32.0); BLOOD UREA NITROGEN 17 MG/DL (7-18); CALCIUM 8.5 MG/DL (8.5-10.1); CHLORIDE 107 MEQ/L (98-107); CREATININE 0.63 MG/DL (0.50-1.00); GLOMERULAR FILTRATION RATE 96 ML/MIN (>89); GLUCOSE,RANDOM 135 MG/DL (74-106); SODIUM (NA) 143 MEQ/L (136-145)
[2017-08-03 05:51] LABS: ALKALINE PHOSPHATASE 77 U/L (45-117); TOTAL BILIRUBIN ADULT 0.3 MG/DL (0.2-1.0); TOTAL PROTEIN 4.8 GM/DL (6.4-8.2)
[2017-08-03] MEDS: DILTIAZEM HCL 60 MG TAB PO SCH ×4 (06:00→17:12)
[2017-08-03] MEDS: FREE WATER G-TUBE SCH ×4 (06:00→17:11)
[2017-08-03] MEDS: FAMOTIDINE 20 MG TAB PO SCH ×2 (08:28→20:09)
[2017-08-03] MEDS: CHLOROTHIAZIDE SOD 500 MG VIAL IV SCH (08:28)
[2017-08-03] MEDS: CALCIUM/VITAMIN D 250 MG/125 U TAB PO SCH (08:28)
[2017-08-03] MEDS: HYDROCORTISONE SOD SUCCINATE 100 MG VIAL IV PUSH SCH ×2 (08:28→20:08)
[2017-08-03] MEDS: DOCUSATE SODIUM 50 MG/SENNA 8.6 MG TAB PO SCH ×2 (08:28→20:32)
[2017-08-03] MEDS: MULTIVITAMIN-OPHTHALMIC 1 TAB PO SCH (08:28)
[2017-08-03] MEDS: CHLORHEXIDINE 0.12% (ORAL KIT) 15 ML CUP MT SCH ×2 (08:29→20:09)
[2017-08-03] MEDS: SODIUM CHLORIDE 0.9% FLUSH 10 ML FLUSH IV FLUSH SCH ×2 (08:29→20:08)
[2017-08-03] MEDS: BUDESONIDE 9 MG PO SCH (09:00)
--- NOTE | 2017-08-03 11:01 | HHI.CCPN ---
Subjective Remarks/Hospital Course This is a 62-year-old female with a history of developmental delay and recurrent urinary tract infections who presents with new onset right-sided abdominal and flank pain. Per the [facility] service admission note this is been going on for approximately 4 weeks. Patient has a history of developmental delay and is difficult to get a complete history from her, no analysis with her on my evaluation. On my evaluation she endorses flank pain radiating around to her chest. She endorses subjective chills. Denies recent fevers to me. Also endorses nausea, vomiting. In the emergency department she was found to have significant erythema, rubor, dolor, and edema from approximately the fifth intercostal space down to the eighth or ninth intercostal space wrapping around from the midline in the back all the way around to just medial to the breast. CT scan of the abdomen and pelvis confirms significant subcutaneous edema, but this area of edema appears to be contained by intact fascial planes, particularly in the midline of the back. Laboratory evidence is significant for a white blood cell count of 27k, creatinine is 3.58, potassium 5.4, bicarb of 17.9, anion gap elevated at 15, BUN of 64, an initial lactate of 5.1. In the emergency department she received 3 L of crystalloid IV fluids. Despite this she is hypotensive with a mean arterial pressure of 51. Critical care medicine is consulted to evaluate manage her presumed septic shock secondary to severe cellulitis of the trunk. I have given her an additional liter of crystalloid and then placed central venous access, see separate procedure note for details. In addition her lactate is starting to clear and is now 2.9 with an more currently pending, however it is not clearing fast enough and she remains oliguric. I placed a Terrazas for accurate hourly I's and O's. The remainder of the review systems for the patient is negative except documented in the HPI, although this is severely limited by her baseline developmental delay. Subjective 07/23: Patient remains on vasopressors, noted metabolic acidosis, bicarbonate level of 15. Sodium bicarbonate infusion initiated. 07/24 Patient was intubated early this morning now on Vasopressin and Neosyn 300 mics in addition patient is on Amio and Bicarb drips. WBC increased 31. CT abd/pelvis showed right sided cellulites and developing myositis. 07/25 Patient went to OR yesterday s/p wide excisional debridement of soft tissue infection with VAC placement for necrotizing soft tissue infection of abdomen, right hip area right torso area measuring approximately 32 x 18 inches x 2 inches deep. She remains on Vasopressin 0.04 and Neosyn down to 120 mics. On Amio drip. 07/26 No events overnight. Off all pressors, WBC is trending down. On Amio drip. 07/27 Patient remains intubated for return to OR today and wound vac exchange. 07/28 Patient s/p excisional debridement with vac change yesterday intubated and sedated with Fentanyl infusion. 07/29 Patient remains intubated and sedated with Fentanyl and Versed drips. Afebrile. 07/30 No events overnight. Patient remains sedated with Fentanyl drip and intubated. For OR today for further debridement and wound vac exchange. Afebrile. 07/31 Patient went to OR yesterday for vac exchange, Afebrile, WBC is trending down, Intubated and now sedated with Fentanyl and Versed 2mg/hr 08/01: Remains sedated, orally intubated on mechanical ventilation. Scheduled for OR today for vac exchange. 08/02: Remains intubated scheduled for OR again today. Antibiotics per ID. Slight increase in WBC count is 17.2 08/03: s/p Excisional debridement with VAC change yesterday by Dr. Dumont. Tolerating CPAP but not waking up or following commands. Dr. Dumont plans for further wound debridement and VAC change either tomorrow or Monday. Anticipating OR will leave patient intubated. WBC 19.9 today, will discuss with ID Objective Vital Signs Date Time Temp Pulse Resp B/P (MAP) Pulse Ox O2 Delivery O2 Flow Rate FiO2 08/03/17 10:00 90 08/03/17 08:00 99.1 14 108/66 (80) 97 08/03/17 08:00 35 Intake and Output 08/03/17 08/03/17 08/03/17 07:59 15:59 23:59 Intake Total 1174 ml Output Total 1200 ml Balance -26 ml Result Diagram: 08/03/17 0415 08/03/17 0415 Imaging Last Impressions Chest X-Ray 07/30/17 0000 Signed Impressions: Service Date/Time: Sunday, July 30, 2017 08:14 - CONCLUSION: Underinflation with atelectasis at the lung bases. Otherwise, no acute finding is seen given the technique. Derrick García MD Brain MRI 07/28/17 0000 Signed Impressions: Service Date/Time: Friday, July 28, 2017 14:38 - CONCLUSION: 1. Unremarkable MRI examination the brain. 2. No acute abnormality or interval change. Bob Daly MD Chest CT 07/24/17 0000 Signed Impressions: Service Date/Time: Monday, July 24, 2017 05:36 - CONCLUSION: 1. Stranding in the subcutaneous tissues about the right flank with fluid adjacent to the latissimus dorsi. Stranding extends up into the right breast. Findings could represent developing cellulitis. 2. In addition, there is now a small right-sided effusion with bilateral dependent atelectatic changes. Jerome Brady MD Abdomen/Pelvis CT 07/24/17 0000 Signed Impressions: Service Date/Time: Monday, July 24, 2017 05:36 - CONCLUSION: 1. CT findings concerning for a right sided cellulitis and developing myositis. There is some asymmetric prominence of the latissimus dorsi muscle on the right. Unorganized fluid in the deep subcutaneous tissues adjacent to the muscle belly. No drainable fluid collection, however. 2. Developing dependent areas of consolidation, right greater than left with an associated small right-sided effusion. Jerome Brady MD Head CT 07/22/17 1253 Signed Impressions: Service Date/Time: Saturday, July 22, 2017 13:26 - CONCLUSION: No acute disease. Derrick Henry MD Objective Remarks GENERAL: Elderly female, lying in bed intubated. HEENT: Normocephalic. Atraumatic. Pupils equal, round, reactive, conjugate. Orotracheally intubated NECK: Trachea is midline. There is no JVD. CHEST: Equal chest rise. Room air. CARDIOVASCULAR: RRR, nl S1, S2 ABDOMEN: Soft, nontender, nondistended, +BS, wound Vac in place on the right flank covering extensive areas of debridement. MUSCULOSKELETAL: Pulses 2+. No peripheral edema. Cyanosis/gangrene of 2-4 toes on right NEUROLOGICAL: Intubated, sedated. Moving all extremities spontaneously. Do not wake up or follow commands Date of Insertion: Jul 22, 2017 A/P Assessment and Plan Active problems: Acute respiratory failure Septic shock Right flank necrotizing fascia Acute kidney injury Leukocytosis Elevated CK Anemia Thrombocytopenia Hypothyroidism Plan: Neurologic: Neuro checks per ICU protocol. Fentanyl, Versed infusion for sedation and vent synchrony. Daily sedation vacation. 07/22 CT brain: No acute disease MRI brain 07/28 Unremarkable Tylenol 650 mg every 6 hours as needed for pain and/or temperature greater than 100.5 Respiratory: Continue with vent support keep sats >92% On PRVC 10, TV 350 IT:0.8, PEEP:5, FIO2: 30%. Bronchodilators, ICU vent bundle. SBT daily as lawrence. No extubation due to frequent OR procedures. Plan for further debridement and wound VAC change 08/04/17 or 08/05/[address] Dumont CXR 07/30: Atelectasis at lung bases Cardiovascular: Monitor HR and BP keep MAP>65mmHg. Tapering steroids- HC 25mg IV Q12 Echo showed EF 50-55% Renal: Monitor renal function, I/O's, avoid nephrotoxins Renal is following- . On Free water 300ml Q6, monitor sodium level. D5W@42ml/hr, monitor sodium level, on Diuril 250mg IV daily per renal. FEN/GI: On Pepcid 10mg BID for GI prophylaxis Tube feeds- Glucerna 1.5 with goal rate 45ml/hr ) ID: Continue with abx (Daptomycin) ID is following. Monitor for signs of infections ( Fever, WBC) WBC is trending down 07/24, 07/27 Wound cx :MRSA 07/24 BC :NGTD 07/23: urine cx: No growth 07/22 BC: NGTD Plan for further debridement and wound VAC change 08/04/17 or 08/05/[address] Dumont Path report: Abdominal soft tissue excision: Skin and subcutaneous adipose tissue with acute cellulitis and multifocal abscess formation 07/30 Wound vac exchange 07/27 s/p excisional debridement with vac change of torso and abdomen 07/24 s/p wide excisional debridement of soft tissue infection with VAC placement for necrotizing soft tissue infection of abdomen, right hip area right torso area measuring approximately 32 x 18 inches x 2 inches deep. Surgery -Dr. Dumont. Heme: Monitor CBC, transfuse PRBC as needed Endocrine: levothyroxine 112 mcg/day on hold. TSH:0.08 on 07/24 Glucose monitoring per ICU protocol. -- Continue SSI medium scale for glycemic control [place]: Cyanosis/dry gangrene setting in of toes on right- Likely pressors induced ischemia of toes. Seen by vascular surg- no additional vascular work up needed given palpable pulses, Prophylaxis: GI Prophylaxis Famotidine DVT Prophylaxis -- SCDs Lines: Central line placed on 07/22. Peripheral IVs 2, Level 3 Tracey Meza MD August 03, 2017 11:01
[2017-08-03] MEDS: MIDAZOLAM 50 MG/50 ML INJ 50 ML IV PRN ×2 (11:08→21:28)
--- NOTE | 2017-08-03 11:29 | HHI.IDPN ---
Subjective Subjective Remarks ID COVERAGE Most of the history was obtained by review of medical records. Patient shortly being wheeled out to the operating room for surgical exploration of the site of necrotizing fasciitis Septic shock. Ms. Eldridge is a 62-year-old female who reportedly has developmental delays per chart review. Patient presented to the emergency department via EMS for evaluation of right-sided abdominal, flank and back erythema swelling and pain. Patient's care provider and power of deputy commonwealth's attorney listed on the chart is Mr. Felipe Nagy who can be contacted at [phone]. Patient had earlier reported to others that she was feeling unwell for the past 4 weeks. Patient reported increase in her migraine symptoms. Patient also reported continuous, nonradiating sharps times burning pain over the right upper quadrant that is expanded to include her right flank and back. She denies any trauma to these areas. Patient reported to others prior to being intubated that she had nausea and vomiting associated with decreased appetite. Patient also had reported to others that she was dizzy and lightheaded. Per review of records it appears that patient has had multiple falls as well as has had urinary incontinence at baseline with decreased urine output over the last few days. Patient also reported subjective symptoms such as burning with urination. Per EMS, patient was found to be hypotensive. Systolic pressure was recorded in the 70s. She received fluid in transit with minimal improvement. In the emergency department she was found to have significant erythema,pain and edema from approximately the fifth intercostal space down to the eighth or ninth intercostal space wrapping around from the midline in the back all the way around to just medial to the breast. CT scan of the abdomen and pelvis confirms significant subcutaneous edema, but this area of edema appears to be contained by intact fascial planes, particularly in the midline of the back. Laboratory evidence is significant for a white blood cell count of 27k, creatinine is 3.58, potassium 5.4, bicarb of 17.9, anion gap elevated at 15, BUN of 64, an initial lactate of 5.1. In the emergency department she received 3 L of crystalloid IV fluids. Critical care medicine is consulted to evaluate manage her presumed septic shock secondary to severe cellulitis of the trunk. Overnight critical care medicine was consulted for worsening sepsis and septic shock. Patient had to be intubated and upon evaluation was found to have evidence suggestive of necrotizing fasciitis involving similar areas as reported on the emergency room but had progressed beyond the line of demarcation. Patient was noted to have significant blisters and blackening of the areas. Critical care medicine change the regimen to Zosyn IV, vancomycin IV and added clindamycin IV and placed a surgical consult. Patient was evaluated by Dr. Thor Dumont of surgery and patient is being wheeled to the operating room shortly. At the time of my evaluation patient is in the ICU currently on high-dose Levophed as well as vasopressin with slight decrease in Levophed requirement after addition of clindamycin IV. Urine output is low. No diarrhea. No diffuse rash or skin changes other than as described. Notes reviewed Sedated on the vent - on CPAP currently Had surgery yesterday - excisional debridement of extensive wounds Repeat OR prob tomorrow or Monday WBC up to 19 today Temps ok No rash Antibiotics Dapto IV Current Medications Medications (Trade) Dose Ordered Sig/Beatrice Route Start Time Stop Time Status Last Admin (Ocuvite) 1 tab DAILY PO 07/23/17 09:00 08/02/17 08:15 Patient Own Medication PT OWN MED: BUDESON... DAILY PO 07/23/17 09:00 (Oscal-D 250-125) 500 mg DAILY PO 07/23/17 09:00 08/02/17 08:14 (Pepcid) 10 mg BID PO 07/22/17 21:00 08/02/17 08:14 (NS Flush) 2 ml UNSCH PRN IV FLUSH 07/22/17 16:45 08/01/17 08:02 (NS Flush) 2 ml BID IV FLUSH 07/22/17 21:00 08/02/17 08:15 (Zofran Inj) 4 mg Q6H PRN IVP 07/22/17 16:45 07/23/17 22:11 (Tylenol) 650 mg Q6H PRN PO 07/22/17 16:45 (Ultram) 50 mg Q6H PRN PO 07/22/17 16:45 07/30/17 06:00 (Ultram) 100 mg Q4H PRN PO 07/22/17 16:45 07/30/17 13:39 (Narcan Inj) 0.4 mg UNSCH PRN IV PUSH 07/22/17 16:45 (Natalie-Colace) 1 tab BID PO 07/22/17 21:00 5/6/18 20:57 (Senokot) 17.2 mg Q12H PRN PO 07/22/17 16:45 (Dulcolax Supp) 10 mg DAILY PRN RECTAL 07/22/17 16:45 (Lactulose Liq) 30 ml DAILY PRN PO 07/22/17 16:45 ([facility] [place] [facility] [place] Patient in critical care unit? Ass... Q361D .XX 07/22/17 18:45 (Milk Of Magnesia Liq) 30 ml Q12H PRN PO 07/23/17 15:30 (Phenergan Inj) 12.5 mg Q6H PRN IV-CENTRAL 07/23/17 15:30 (Peridex 0.12% Liq) 15 ml BID@08,20 MT 07/24/17 08:00 08/02/17 08:15 Fentanyl Citrate 250 ml @ 5 mls/hr TITRATE PRN IV 07/24/17 03:15 08/02/17 08:39 (Brethine Inj) 1 mg UNSCH PRN SQ 07/24/17 17:45 (Morphine Inj) 2 mg Q3H PRN IV PUSH 07/24/17 20:45 07/31/17 01:51 (D50w (Vial) Inj) 50 ml UNSCH PRN IV PUSH 07/25/17 08:45 (Glucagon Inj) 1 mg UNSCH PRN OTHER 07/25/17 08:45 Potassium Chloride 100 ml @ 50 mls/hr Q2H PRN IV 07/28/17 09:00 07/28/17 12:57 Potassium Chloride 100 ml @ 50 mls/hr Q2H PRN IV 07/28/17 09:00 07/29/17 02:04 (K-Lyte Cl Eff) 50 meq UNSCH PRN PO 07/28/17 09:00 07/29/17 02:05 Potassium Chloride 100 ml @ 25 mls/hr UNSCH PRN IV 07/28/17 09:00 Potassium Chloride 100 ml @ 50 mls/hr Q2H PRN IV 07/28/17 09:00 07/29/17 02:05 Magnesium Sulfate 4 gm/Sodium Chloride 100 ml @ 50 mls/hr UNSCH PRN IV 07/28/17 09:00 (Mag-Ox) 800 mg UNSCH PRN PO 07/28/17 09:00 Magnesium Sulfate 2 gm/Sodium Chloride 100 ml @ 50 mls/hr UNSCH PRN IV 07/28/17 09:00 (K-Phos) 2,000 mg Q4H PRN PO 07/28/17 09:00 Sodium Phosphate 30 mmol/Sodium Chloride 250 ml @ 42 mls/hr UNSCH PRN IV 07/28/17 09:00 (K-Phos) 2,000 mg UNSCH PRN PO/TUBE 07/28/17 09:00 Potassium Phosphate 30 mmol/ Sodium Chloride 260 ml @ 42 mls/hr UNSCH PRN IV 07/28/17 09:00 08/01/17 08:13 (Diuril Inj) 250 mg DAILY IV 07/28/17 10:00 08/02/17 08:15 (Free Water) 300 ml Q6HR G-TUBE 07/28/17 12:00 08/01/17 23:33 (NovoLIN R SUPPLEMENTAL SCALE) 1 Q4HR SQ 07/28/17 12:00 08/01/17 08:01 Midazolam HCl 50 ml @ 2 mls/hr TITRATE PRN IV 07/28/17 12:00 08/02/17 01:34 Dextrose 1,000 ml @ 42 mls/hr [id number] IV 07/29/17 10:30 08/01/17 17:40 (Cardizem) 60 mg Q6HR PO 07/29/17 14:15 08/01/17 23:33 (Apresoline Inj) 10 mg Q6H PRN IV PUSH 07/29/17 14:15 07/29/17 14:33 Daptomycin 690 mg/ Sodium Chloride 100 ml @ 200 mls/hr Q24H IV 07/29/17 18:00 08/01/17 17:40 (SoluCORTEF INJ) 25 mg Q12HR IV PUSH 07/31/17 09:00 08/02/17 08:14 Lines Line sites with no e.o infection Past Medical History Anxiety Depression Developmental delays - mental handicap Headaches/migraines Hypothyroidism GERD Chest pain Hx of UTIs Renal insufficiency Bladder incontinence Chronic back pain Thyroid surgery EGD - 08/30/16 Cholecystectomy - 03/04/15 D&C Hysterectomy Colonoscopy - 07/30/16 and 08/11/15 Allergies: Coded Allergies: No Known Allergies (Verified Allergy, Unknown, 07/22/17) Objective . Vital Signs Date Time Temp Pulse Resp B/P (MAP) Pulse Ox O2 Delivery O2 Flow Rate FiO2 08/03/17 10:00 90 08/03/17 08:00 99.1 101 14 108/66 (80) 97 08/03/17 08:00 35 08/03/17 08:00 101 08/03/17 07:40 35 08/03/17 07:40 97 35 08/03/17 06:00 82 08/03/17 04:08 97 35 08/03/17 04:00 98.2 84 14 102/60 (74) 97 08/03/17 04:00 35 08/03/17 04:00 84 08/03/17 02:00 75 08/03/17 00:00 84 08/03/17 00:00 97.9 84 18 99/56 (70) 95 08/03/17 00:00 35 08/02/17 23:57 100 35 08/02/17 22:00 74 08/02/17 20:11 97 35 08/02/17 20:00 98.7 77 12 96/53 (67) 98 08/02/17 20:00 35 08/02/17 20:00 77 08/02/17 18:00 73 08/02/17 16:00 82 08/02/17 16:00 35 08/02/17 16:00 98.8 82 16 115/67 (83) 98 08/02/17 15:54 99 35 08/02/17 12:00 35 08/02/17 12:00 103 08/02/17 12:00 98.9 103 27 147/75 (99) 100 . Laboratory Tests Test 08/02/17 10:00 08/03/17 04:15 White Blood Count 17.2 TH/MM3 19.9 TH/MM3 Red Blood Count 3.59 MIL/MM3 3.16 MIL/MM3 Hemoglobin 9.6 GM/DL 8.5 GM/DL Hematocrit 29.8 % 26.4 % Mean Corpuscular Volume 83.0 FL 83.6 FL Mean Corpuscular Hemoglobin 26.8 PG 27.0 PG Mean Corpuscular Hemoglobin Concent 32.4 % 32.3 % Red Cell Distribution Width 15.8 % 16.1 % Platelet Count 429 TH/MM3 423 TH/MM3 Mean Platelet Volume 7.7 FL 7.5 FL Neutrophils (%) (Auto) 85.3 % 83.0 % Lymphocytes (%) (Auto) 9.3 % 9.8 % Monocytes (%) (Auto) 4.6 % 6.1 % Eosinophils (%) (Auto) 0.6 % 0.7 % Basophils (%) (Auto) 0.2 % 0.4 % Neutrophils # (Auto) 14.7 TH/MM3 16.6 TH/MM3 Lymphocytes # (Auto) 1.6 TH/MM3 1.9 TH/MM3 Monocytes # (Auto) 0.8 TH/MM3 1.2 TH/MM3 Eosinophils # (Auto) 0.1 TH/MM3 0.1 TH/MM3 Basophils # (Auto) 0.0 TH/MM3 0.1 TH/MM3 CBC Comment DIFF FINAL DIFF FINAL Differential Comment Laboratory Tests Test 08/02/17 10:00 08/03/17 04:15 Blood Urea Nitrogen 18 MG/DL 17 MG/DL Creatinine 0.62 MG/DL 0.63 MG/DL Random Glucose 129 MG/DL 135 MG/DL Total Protein 5.4 GM/DL 4.8 GM/DL Albumin 1.9 GM/DL 1.6 GM/DL Calcium Level 9.1 MG/DL 8.5 MG/DL Phosphorus Level 2.0 MG/DL 3.0 MG/DL Magnesium Level 1.6 MG/DL Alkaline Phosphatase 84 U/L 77 U/L Aspartate Amino Transf (AST/SGOT) 16 U/L 20 U/L Alanine Aminotransferase (ALT/SGPT) 22 U/L 23 U/L Total Bilirubin 0.5 MG/DL 0.3 MG/DL Sodium Level 141 MEQ/L 143 MEQ/L Potassium Level 3.5 MEQ/L 4.0 MEQ/L Chloride Level 105 MEQ/L 107 MEQ/L Carbon Dioxide Level 27.9 MEQ/L 29.7 MEQ/L Anion Gap 8 MEQ/L 6 MEQ/L Estimat Glomerular Filtration Rate 98 ML/MIN 96 ML/MIN Imaging Chest X-Ray 07/30/17 0000 Signed Impressions: Service Date/Time: Sunday, July 30, 2017 08:14 - CONCLUSION: Underinflation with atelectasis at the lung bases. Otherwise, no acute finding is seen given the technique. Derrick García MD Brain MRI 07/28/17 0000 Signed Impressions: Service Date/Time: Friday, July 28, 2017 14:38 - CONCLUSION: 1. Unremarkable MRI examination the brain. 2. No acute abnormality or interval change. Bob Daly MD Chest CT 07/24/17 0000 Signed Impressions: Service Date/Time: Monday, July 24, 2017 05:36 - CONCLUSION: 1. Stranding in the subcutaneous tissues about the right flank with fluid adjacent to the latissimus dorsi. Stranding extends up into the right breast. Findings could represent developing cellulitis. 2. In addition, there is now a small right-sided effusion with bilateral dependent atelectatic changes. Jerome Brady MD Abdomen/Pelvis CT 07/24/17 0000 Signed Impressions: Service Date/Time: Monday, July 24, 2017 05:36 - CONCLUSION: 1. CT findings concerning for a right sided cellulitis and developing myositis. There is some asymmetric prominence of the latissimus dorsi muscle on the right. Unorganized fluid in the deep subcutaneous tissues adjacent to the muscle belly. No drainable fluid collection, however. 2. Developing dependent areas of consolidation, right greater than left with an associated small right-sided effusion. Jerome Brady MD Head CT 07/22/17 1253 Signed Impressions: Service Date/Time: Saturday, July 22, 2017 13:26 - CONCLUSION: No acute disease. Derrick Henry MD Physical Exam GENERAL: Sedated on the vent, NAD. On CPAP SKIN: No generalized rash. Dry, cool extremities HEAD: Atraumatic. Normocephalic. No temporal or scalp tenderness. EYES: Pupils equal round and reactive. Extraocular motions intact. No scleral icterus. No injection or drainage. ENT: Intubated. Moist mucosa NECK: Trachea midline. Supple, nontender, no meningeal signs. CARDIOVASCULAR: Heart sounds audible. No murmur appreciated. RESPIRATORY: Clear to auscultation. Breath sounds equal bilaterally. No wheezes , rales, or rhonchi. GASTROINTESTINAL: Abdomen soft. Wound vac area noted. Extensive area covered with wound vac sponge MUSCULOSKELETAL: Extremities without clubbing, cyanosis. Some pedal edema. Ischemic toes R foot 2-4 toes and tip of 5th toe. Cool feet NEUROLOGICAL: Sedated. Psych could not be assessed IV line sites with no e.o infection Assessment & Plan Remarks Septic shock with multiorgan dysfunction syndrome Sepsis present on admission Necrotizing fasciitis of the abdominal wall ? History of multiple falls likely the precipitant. Acute rhabdomyolysis Acute renal failure: Prerenal, sepsis, rhabdomyolysis Acute metabolic encephalopathy likely sepsis related. Baseline unknown Leukemoid reaction likely due to worsening sepsis, improving Recommendations: Continue Dapto IV (Vanco DELMI 2, clinically still has new areas of erythema and e /o infection outside wound vac margin, acute renal failure) Follow cultures Follow CBC - WBC sould be up reactive post surgery - will repeat Monitor progress For wound vac change prob tomorrow or Monday per surgery Weaning per [facility] Monitor progress Wanda Navarrete MD August 03, 2017 11:29
--- NOTE | 2017-08-03 16:06 | HHI.PR ---
Subjective Subjective Notes Intubated/Sedated Objective Vitals/I&O Vital Signs Date Time Temp Pulse Resp B/P (MAP) Pulse Ox O2 Delivery O2 Flow Rate FiO2 08/03/17 16:00 96 35 08/03/17 14:00 84 08/03/17 12:00 99.0 16 109/59 (76) Labs Laboratory Tests Test 08/03/17 04:15 White Blood Count 19.9 Red Blood Count 3.16 Hemoglobin 8.5 Hematocrit 26.4 Mean Corpuscular Volume 83.6 Mean Corpuscular Hemoglobin 27.0 Mean Corpuscular Hemoglobin Concent 32.3 Red Cell Distribution Width 16.1 Platelet Count 423 Mean Platelet Volume 7.5 Neutrophils (%) (Auto) 83.0 Lymphocytes (%) (Auto) 9.8 Monocytes (%) (Auto) 6.1 Eosinophils (%) (Auto) 0.7 Basophils (%) (Auto) 0.4 Neutrophils # (Auto) 16.6 Lymphocytes # (Auto) 1.9 Monocytes # (Auto) 1.2 Eosinophils # (Auto) 0.1 Basophils # (Auto) 0.1 CBC Comment DIFF FINAL Differential Comment Blood Urea Nitrogen 17 Creatinine 0.63 Random Glucose 135 Total Protein 4.8 Albumin 1.6 Calcium Level 8.5 Phosphorus Level 3.0 Alkaline Phosphatase 77 Aspartate Amino Transf (AST/SGOT) 20 Alanine Aminotransferase (ALT/SGPT) 23 Total Bilirubin 0.3 Sodium Level 143 Potassium Level 4.0 Chloride Level 107 Carbon Dioxide Level 29.7 Anion Gap 6 Estimat Glomerular Filtration Rate 96 Date/Time Source Procedure Growth Status 07/24/17 05:05 Blood Peripheral Aerobic Blood Culture - Final NO GROWTH IN 5 DAYS Complete 07/24/17 05:05 Blood Peripheral Anaerobic Blood Culture - Final NO GROWTH IN 5 DAYS Complete 07/22/17 20:10 Nasal Washing Influenza Types A,B Antigen (DELMI) - Final NEGATIVE FOR FLU A AND B ANTIGEN.... Complete 07/23/17 16:05 Urine Catheterized Urine Urine Culture - Final NO GROWTH IN 48 HOURS. Complete 07/27/17 15:30 Wound Other Fungal Smear - Final NO FUNGAL ELEMENTS SEEN. Resulted 07/27/17 15:30 Wound Other Fungal Culture - Preliminary NO GROWTH IN 1 WEEK Resulted Cardiovascular: Regular Lungs: Clear Abdomen: Other (large RIGHT flank, abdomen wound vac in place with good seal ) Extremities: No edema A/P Assessment and Plan 62 year old female with extensive soft tissue infection -s/p I&D of wound; wound vac placement -Plan to go to OR Monday for vac change -Continue TF Attending Statement patient seen at bedside doing better still needs further vac change and debridement plan for monday Attestation The exam, history, and the medical decision-making described in the above note were completed with the assistance of the mid-level provider. I reviewed and agree with the findings presented. I attest that I had a [id number] encounter with the patient on the same day, and personally performed and documented my assessment and findings in the medical record. Batool Meneses/[facility] August 03, 2017 16:06 Tip Dumont MD August 05, 2017 21:44
--- NOTE | 2017-08-03 16:24 | HHI.HCPN ---
Reason for visit a. To assist with evaluation and management of symptoms including: pain, dyspnea. b. To assist medical decision maker(s) with: better understanding of current medical conditions; weighing benefits/burdens of medical treatment options; making medical treatment decisions. . Subjective/Interval History No significant change. Underwent debridement / wound-vac change yesterday with another similar procedure expected 08/04 or 08/05. Remains sedated , mechanically ventilated. No plan to try and wean pending return to OR. VSS afebrile. WBC up to 19.9. Hg down to 8.5. Albumin down to 1.6. CXR today stable w/o evidence of acute disease.. . . Family/friend interactions No further contact information has become available regarding surviving family members who might be able to serve as proxy per [place] statutes hierarchy. [employer] report showed no eligible family members. Thus, Mr. Nagy remains the legal proxy as "close personal friend." Advance Directives Durable Power of Water Valve Repairer: Copy in medical record Advance Directive Specifics Date completed: An incomplete (only pages 2 and 3 of a 3 page document were avialable) and it did not specify health care decision making. . Health Care Surrogate(s): Mr. Felipe Nagy was given POA but the POA document did not specify health care decision making. . Documented care wishes: There is no written documentation of health care goals/preferences. . Objective Vital Signs Date Time Temp Pulse Resp B/P (MAP) Pulse Ox O2 Delivery O2 Flow Rate FiO2 08/03/17 16:00 96 35 08/03/17 14:00 84 08/03/17 13:43 98 35 08/03/17 12:30 95 35 08/03/17 12:00 99.0 97 16 109/59 (76) 89 08/03/17 12:00 97 08/03/17 12:00 35 08/03/17 10:00 90 08/03/17 08:00 99.1 101 14 108/66 (80) 97 08/03/17 08:00 35 08/03/17 08:00 101 08/03/17 07:40 35 08/03/17 07:40 97 35 08/03/17 06:00 82 08/03/17 04:08 97 35 08/03/17 04:00 98.2 84 14 102/60 (74) 97 08/03/17 04:00 35 08/03/17 04:00 84 08/03/17 02:00 75 08/03/17 00:00 84 08/03/17 00:00 97.9 84 18 99/56 (70) 95 08/03/17 00:00 35 08/02/17 23:57 100 35 08/02/17 22:00 74 08/02/17 20:11 97 35 08/02/17 20:00 98.7 77 12 96/53 (67) 98 08/02/17 20:00 35 08/02/17 20:00 77 08/02/17 18:00 73 Intake & Output 08/03/17 08/03/17 07:00 19:00 Intake Total 1474 ml Output Total 1200 ml Balance 274 ml Intake Oral 0 ml IV Total 300 ml Tube Feeding 574 ml Other 600 ml Output Urine Total 850 ml Drainage Total 350 ml # Bowel Movements 0 Physical Exam CONSTITUTIONAL/GENERAL: This is an adequately nourished patient, sedated, intubated, mechanically ventilated in the MICU. She is restless with occasional grimacing. Does not open her eyes for me and is not able to follow commands. TUBES/LINES/DRAINS: Wound vac, left subclavian central line; Peripheral IV; ET tube, scales. SKIN: Right sided wound s/p debridment with wound vac from right thigh all the way up torso to below axillary area. EYES: Pupil equal,round, reactive. Unable to evaluate EOMs. . No scleral icterus. No injection or drainage. Fundi not examined. ENT: . Nose without bleeding or purulent drainage. ET tube in place. Dried blood on lips. NECK: Trachea midline. CARDIOVASCULAR: Regular rate and rhythm without murmurs, gallops, or rubs. No JVD. RESPIRATORY/CHEST: Symmetric, unlabored respirations. Clear to auscultation. Breath sounds equal bilaterally. GASTROINTESTINAL: Abdomen soft, non-tender, nondistended. No hepato-splenomegaly , or palpable masses. No guarding. Bowel sounds present. GENITOURINARY: Without palpable bladder distension. Scales catheter in place. MUSCULOSKELETAL: Extremities without clubbing, edema. Right middle toes are ischemic appearing throughout. Right little toe with ischemic appearance at tip. LYMPHATICS: Not examined. NEUROLOGICAL: Intubated and sedated. Does not awaken to voice or exam. Withdraws to noxious stimulus. PSYCHIATRIC: Unable to examine . . Diagnostic Tests Laboratory Laboratory Tests Test 08/01/17 01:14 08/01/17 04:05 08/02/17 10:00 08/03/17 04:15 Hemoglobin 8.5 GM/DL (11.6-15.3) 7.9 GM/DL (11.6-15.3) 9.6 GM/DL (11.6-15.3) 8.5 GM/DL (11.6-15.3) Hematocrit 25.8 % (35.0-46.0) 24.5 % (35.0-46.0) 29.8 % (35.0-46.0) 26.4 % (35.0-46.0) White Blood Count 14.6 TH/MM3 (4.0-11.0) 17.2 TH/MM3 (4.0-11.0) 19.9 TH/MM3 (4.0-11.0) Red Blood Count 2.93 MIL/MM3 (4.00-5.30) 3.59 MIL/MM3 (4.00-5.30) 3.16 MIL/MM3 (4.00-5.30) Mean Corpuscular Volume 83.7 FL (80.0-100.0) 83.0 FL (80.0-100.0) 83.6 FL (80.0-100.0) Mean Corpuscular Hemoglobin 26.9 PG (27.0-34.0) 26.8 PG (27.0-34.0) 27.0 PG (27.0-34.0) Mean Corpuscular Hemoglobin Concent 32.2 % (32.0-36.0) 32.4 % (32.0-36.0) 32.3 % (32.0-36.0) Red Cell Distribution Width 15.9 % (11.6-17.2) 15.8 % (11.6-17.2) 16.1 % (11.6-17.2) Platelet Count 261 TH/MM3 (150-450) 429 TH/MM3 (150-450) 423 TH/MM3 (150-450) Mean Platelet Volume 7.8 FL (7.0-11.0) 7.7 FL (7.0-11.0) 7.5 FL (7.0-11.0) Neutrophils (%) (Auto) 84.5 % (16.0-70.0) 85.3 % (16.0-70.0) 83.0 % (16.0-70.0) Lymphocytes (%) (Auto) 11.1 % (9.0-44.0) 9.3 % (9.0-44.0) 9.8 % (9.0-44.0) Monocytes (%) (Auto) 3.5 % (0.0-8.0) 4.6 % (0.0-8.0) 6.1 % (0.0-8.0) Eosinophils (%) (Auto) 0.8 % (0.0-4.0) 0.6 % (0.0-4.0) 0.7 % (0.0-4.0) Basophils (%) (Auto) 0.1 % (0.0-2.0) 0.2 % (0.0-2.0) 0.4 % (0.0-2.0) Neutrophils # (Auto) 12.3 TH/MM3 (1.8-7.7) 14.7 TH/MM3 (1.8-7.7) 16.6 TH/MM3 (1.8-7.7) Lymphocytes # (Auto) 1.6 TH/MM3 (1.0-4.8) 1.6 TH/MM3 (1.0-4.8) 1.9 TH/MM3 (1.0-4.8) Monocytes # (Auto) 0.5 TH/MM3 (0-0.9) 0.8 TH/MM3 (0-0.9) 1.2 TH/MM3 (0-0.9) Eosinophils # (Auto) 0.1 TH/MM3 (0-0.4) 0.1 TH/MM3 (0-0.4) 0.1 TH/MM3 (0-0.4) Basophils # (Auto) 0.0 TH/MM3 (0-0.2) 0.0 TH/MM3 (0-0.2) 0.1 TH/MM3 (0-0.2) CBC Comment DIFF FINAL DIFF FINAL DIFF FINAL Differential Comment Blood Urea Nitrogen 27 MG/DL (7-18) 18 MG/DL (7-18) 17 MG/DL (7-18) Creatinine 0.67 MG/DL (0.50-1.00) 0.62 MG/DL (0.50-1.00) 0.63 MG/DL (0.50-1.00) Random Glucose 172 MG/DL (74-106) 129 MG/DL (74-106) 135 MG/DL (74-106) Total Protein 4.2 GM/DL (6.4-8.2) 5.4 GM/DL (6.4-8.2) 4.8 GM/DL (6.4-8.2) Albumin 1.4 GM/DL (3.4-5.0) 1.9 GM/DL (3.4-5.0) 1.6 GM/DL (3.4-5.0) Calcium Level 8.2 MG/DL (8.5-10.1) 9.1 MG/DL (8.5-10.1) 8.5 MG/DL (8.5-10.1) Phosphorus Level 1.5 MG/DL (2.5-4.9) 2.0 MG/DL (2.5-4.9) 3.0 MG/DL (2.5-4.9) Magnesium Level 1.6 MG/DL (1.5-2.5) 1.6 MG/DL (1.5-2.5) Alkaline Phosphatase 70 U/L (45-117) 84 U/L (45-117) 77 U/L (45-117) Aspartate Amino Transf (AST/SGOT) 11 U/L (15-37) 16 U/L (15-37) 20 U/L (15-37) Alanine Aminotransferase (ALT/SGPT) 17 U/L (10-53) 22 U/L (10-53) 23 U/L (10-53) Total Bilirubin 0.3 MG/DL (0.2-1.0) 0.5 MG/DL (0.2-1.0) 0.3 MG/DL (0.2-1.0) Sodium Level 144 MEQ/L (136-145) 141 MEQ/L (136-145) 143 MEQ/L (136-145) Potassium Level 3.2 MEQ/L (3.5-5.1) 3.5 MEQ/L (3.5-5.1) 4.0 MEQ/L (3.5-5.1) Chloride Level 108 MEQ/L (98-107) 105 MEQ/L (98-107) 107 MEQ/L (98-107) Carbon Dioxide Level 31.9 MEQ/L (21.0-32.0) 27.9 MEQ/L (21.0-32.0) 29.7 MEQ/L (21.0-32.0) Anion Gap 4 MEQ/L (5-15) 8 MEQ/L (5-15) 6 MEQ/L (5-15) Estimat Glomerular Filtration Rate 89 ML/MIN (>89) 98 ML/MIN (>89) 96 ML/MIN (>89) Prothrombin Time 11.5 SEC (9.8-11.6) Prothromb Time International Ratio 1.1 RATIO Activated Partial Thromboplast Time 24.1 SEC (24.3-30.1) Result Diagram: 08/03/17 0415 08/03/17 0415 Procedures Microbiology Date/Time Source Procedure Growth Status 07/24/17 05:05 Blood Peripheral Aerobic Blood Culture - Final NO GROWTH IN 5 DAYS Complete 07/24/17 05:05 Blood Peripheral Anaerobic Blood Culture - Final NO GROWTH IN 5 DAYS Complete 07/22/17 20:10 Nasal Washing Influenza Types A,B Antigen (DELMI) - Final NEGATIVE FOR FLU A AND B ANTIGEN.... Complete 07/23/17 16:05 Urine Catheterized Urine Urine Culture - Final NO GROWTH IN 48 HOURS. Complete 07/27/17 15:30 Wound Other Fungal Smear - Final NO FUNGAL ELEMENTS SEEN. Resulted 07/27/17 15:30 Wound Other Fungal Culture Pending Resulted . Assessment and Plan Disease Oriented Problem List: (1) Severe sepsis (2) Abdominal wall cellulitis Comment: required debridement of necrotizing tissue. (3) Acute kidney injury Comment: Improved (4) DM (diabetes mellitus) Symptom Scale: (1) Dyspnea 0-10 Scale: Unable to quantify (2) Pain 0-10 Scale: Unable to quantify Comment: No known pre-hospitalization pain syndromes. Current sources of pain probably include large wound; prolonged bedbound status; scales cathter; vascular access lines; restraints; ET tube. . Pertinent Non-Medical Issues Psychosocial:developmental delay, Spiritual: Has not belong to any particular gemma group. Per her partner, she has been recently interested in evangelical oriented audio cassettes Legal: Mr. Nagy brought in part of a POA dcoument signed by the patient Ethical issues impacting care: Patient is incapacitated. . Important Contacts NagyFelipe reported POA. [phone] . Prognosis 62 year old female with severe sepsis, due to large right sided necrotizing wound + for MRSA. Remains critically ill but has shown evidence of improvement -- WBC is down-trending; renal function has normalized; and has been able to wean off pressors. Prognosis is guarded. Her large, complicated wound may require weeks more of hospitalization . Pt's developmental delays may hinder pt's ability to convalesce. . . Code Status: Full Code Plan == Code Status : Full Code == Decision Making: Patient is incapacitated to make her own health care decisions with no reasonable hope of recovering capacity. Has hx of developmental delay. Mr. Nagy had self identified as her "guardian" and " power of web publisher." There is only POA paperwork and that was incomplete and does not specifically mention health care decision making. We don't have contact information for other family members at this time even after seeking through an [employer] report. Mr. Nagy has been a "close personal friend" regularly attending all of her outpatient physician appointments with the patient. Until such time as other family members present themselves or we are given contact information for other surviving family members, Mr. Nagy will remain the legal proxy for health care decisions. ==Goals of medical treatment: Patient never completed and advance directive nor had conversations regarding what she would want or not want if she were to become critically ill like this. Mr. Nagy feels the patient would certainly want to continue fighting at this time. Goals at this time are therefore aggressive. "Do everything you can." == Symptoms (see symptoms above) * dyspnea: managed with mechanical ventilation * pain- Multiple sources of discomfort including -- , extensive right sided wound; repeated debridements and wound vac changes; prolonged bedbound status ; etc. Currently being managed with fentanyl drip with adequate results. * Intermittent Agitation == Plan * Mr. Nagy will see if he can find a completed version of the Power Of Water Valve Repairer forms * Mr. Nagy will try and find contact information for surviving relatives. * In the meantime, Mr. Nagy will continue to function as the health care proxy as he has demonstrated concern and interest over the years and has appeared to be advocating for her appropriately and we have access to no alternatives. == Per directions of the proxy we will continue ongoing aggressive care. We will re-visit goals if no improvement over time or if there are major setbacks. == Palliative car will continue to follow to assist with symptom management and to further clarify goals of medical treatment as the clinical course evolves. . Attestation To help prompt me to consider important information that might be impacting today's encounter and assessment, information from prior notes written by myself or my colleagues may have been "brought forward" into today's note. My signature on this note, however, is an attestation that I personally performed the exam, history, and/or decision-making noted today, and, unless otherwise indicated, the interactions with patient, family, and staff as well as the review of records all occurred today. I also attest that the listed assessment and stated plan reflect my best clinical judgment today based on the combination of historical information, prior notes, and today's exam/ interactions. When time spent is documented, it refers only to time spent today by the signer, or if indicated, combined time spent today by collaborating physician/nurse practitioner. Felipe Carrington MD August 03, 2017 16:24
[2017-08-03] MEDS: SODIUM CHLORIDE 0.9% IV SCH (17:10)
[2017-08-03] MEDS: DAPTOMYCIN IV SCH (17:10)
[2017-08-03] MEDS: fentaNYL DRIP 250 ML IV PRN (17:13)
[2017-08-03] MEDS: DEXTROSE 5% IN WATE 1000ML INJ 1,000 ML IV SCH (20:30)
[2017-08-04] VITALS (19 sets, daily range): BP systolic 95–183; BP diastolic 53–104; PULSE 80–113; RESP 12–23; TEMP 97.5–102; O2SAT 96–100
[2017-08-04] MEDS: DILTIAZEM HCL 60 MG TAB PO SCH ×4 (00:33→18:11)
[2017-08-04 04:58] LABS: AUTOMATED NEUTROPHIL # 14.3 TH/MM3 (1.8-7.7); BASOPHIL # 0.1 TH/MM3 (0-0.2); BASOPHIL % 0.4 % (0.0-2.0); EOSINOPHIL % 0.3 % (0.0-4.0); HEMATOCRIT 25.1 % (35.0-46.0); LYMPH % 8.3 % (9.0-44.0); LYMPHOCYTE # 1.4 TH/MM3 (1.0-4.8); MEAN CELL VOLUME 84.8 FL (80.0-100.0); MEAN CORPUSCULAR HGB CONC 31.8 % (32.0-36.0); MEAN PLATELET VOLUME 7.4 FL (7.0-11.0); MONO % 5.7 % (0.0-8.0); NEUT % 85.3 % (16.0-70.0); PLATELET COUNT 401 TH/MM3 (150-450); RED BLOOD COUNT 2.97 MIL/MM3 (4.00-5.30); RED CELL DISTRIBUTION WIDTH 15.8 % (11.6-17.2); WHITE BLOOD COUNT 16.7 TH/MM3 (4.0-11.0)
[2017-08-04] MEDS: FREE WATER G-TUBE SCH ×4 (05:02→18:11)
[2017-08-04] MEDS: INSULIN NovoLIN REGULAR SUPPLEMENTAL SCALE SQ SCH ×6 (05:02→20:00)
[2017-08-04] MEDS: MIDAZOLAM 50 MG/50 ML INJ 50 ML IV PRN ×2 (05:04→19:56)
[2017-08-04] MEDS: fentaNYL DRIP 250 ML IV PRN (06:41)
[2017-08-04] MEDS: HYDROCORTISONE SOD SUCCINATE 100 MG VIAL IV PUSH SCH (07:59)
[2017-08-04] MEDS: SODIUM CHLORIDE 0.9% FLUSH 10 ML FLUSH IV FLUSH SCH ×2 (07:59→20:13)
[2017-08-04] MEDS: CHLORHEXIDINE 0.12% (ORAL KIT) 15 ML CUP MT SCH ×2 (08:00→20:07)
[2017-08-04] MEDS: CALCIUM/VITAMIN D 250 MG/125 U TAB PO SCH (08:00)
[2017-08-04] MEDS: FAMOTIDINE 20 MG TAB PO SCH ×2 (08:00→20:12)
[2017-08-04] MEDS: DOCUSATE SODIUM 50 MG/SENNA 8.6 MG TAB PO SCH ×2 (08:00→20:12)
[2017-08-04] MEDS: MULTIVITAMIN-OPHTHALMIC 1 TAB PO SCH (09:00)
[2017-08-04] MEDS: BUDESONIDE 9 MG PO SCH (09:00)
--- NOTE | 2017-08-04 09:24 | HHI.IDPN ---
Subjective Subjective Remarks ID COVERAGE Most of the history was obtained by review of medical records. Patient shortly being wheeled out to the operating room for surgical exploration of the site of necrotizing fasciitis Septic shock. Ms. Eldridge is a 62-year-old female who reportedly has developmental delays per chart review. Patient presented to the emergency department via EMS for evaluation of right-sided abdominal, flank and back erythema swelling and pain. Patient's care provider and power of finance attorney listed on the chart is Mr. Felipe Nagy who can be contacted at [phone]. Patient had earlier reported to others that she was feeling unwell for the past 4 weeks. Patient reported increase in her migraine symptoms. Patient also reported continuous, nonradiating sharps times burning pain over the right upper quadrant that is expanded to include her right flank and back. She denies any trauma to these areas. Patient reported to others prior to being intubated that she had nausea and vomiting associated with decreased appetite. Patient also had reported to others that she was dizzy and lightheaded. Per review of records it appears that patient has had multiple falls as well as has had urinary incontinence at baseline with decreased urine output over the last few days. Patient also reported subjective symptoms such as burning with urination. Per EMS, patient was found to be hypotensive. Systolic pressure was recorded in the 70s. She received fluid in transit with minimal improvement. In the emergency department she was found to have significant erythema,pain and edema from approximately the fifth intercostal space down to the eighth or ninth intercostal space wrapping around from the midline in the back all the way around to just medial to the breast. CT scan of the abdomen and pelvis confirms significant subcutaneous edema, but this area of edema appears to be contained by intact fascial planes, particularly in the midline of the back. Laboratory evidence is significant for a white blood cell count of 27k, creatinine is 3.58, potassium 5.4, bicarb of 17.9, anion gap elevated at 15, BUN of 64, an initial lactate of 5.1. In the emergency department she received 3 L of crystalloid IV fluids. Critical care medicine is consulted to evaluate manage her presumed septic shock secondary to severe cellulitis of the trunk. Overnight critical care medicine was consulted for worsening sepsis and septic shock. Patient had to be intubated and upon evaluation was found to have evidence suggestive of necrotizing fasciitis involving similar areas as reported on the emergency room but had progressed beyond the line of demarcation. Patient was noted to have significant blisters and blackening of the areas. Critical care medicine change the regimen to Zosyn IV, vancomycin IV and added clindamycin IV and placed a surgical consult. Patient was evaluated by Dr. Thor Dumont of surgery and patient is being wheeled to the operating room shortly. At the time of my evaluation patient is in the ICU currently on high-dose Levophed as well as vasopressin with slight decrease in Levophed requirement after addition of clindamycin IV. Urine output is low. No diarrhea. No diffuse rash or skin changes other than as described. Notes reviewed Sedated on the vent - on CPAP currently Had surgery 08/02 - excisional debridement of extensive wounds Repeat wound C/S MRSA OR plans now for Saturday 08/05 WBC lower today, down to 16K from 19K Temps ok No rash Antibiotics Dapto IV Current Medications Medications (Trade) Dose Ordered Sig/Beatrice Route Start Time Stop Time Status Last Admin (Ocuvite) 1 tab DAILY PO 07/23/17 09:00 08/03/17 08:28 Patient Own Medication PT OWN MED: [facility]... DAILY PO 07/23/17 09:00 (Oscal-D 250-125) 500 mg DAILY PO 07/23/17 09:00 08/04/17 08:00 (Pepcid) 10 mg BID PO 07/22/17 21:00 08/04/17 08:00 (NS Flush) 2 ml UNSCH PRN IV FLUSH 07/22/17 16:45 08/01/17 08:02 (NS Flush) 2 ml BID IV FLUSH 07/22/17 21:00 08/04/17 07:59 (Zofran Inj) 4 mg Q6H PRN IVP 07/22/17 16:45 07/23/17 22:11 (Tylenol) 650 mg Q6H PRN PO 07/22/17 16:45 (Ultram) 50 mg Q6H PRN PO 07/22/17 16:45 07/30/17 06:00 (Ultram) 100 mg Q4H PRN PO 07/22/17 16:45 07/30/17 13:39 (Narcan Inj) 0.4 mg UNSCH PRN IV PUSH 07/22/17 16:45 (Natalie-Colace) 1 tab BID PO 07/22/17 21:00 08/04/17 08:00 (Senokot) 17.2 mg Q12H PRN PO 07/22/17 16:45 (Dulcolax Supp) 10 mg DAILY PRN RECTAL 07/22/17 16:45 (Lactulose Liq) 30 ml DAILY PRN PO 07/22/17 16:45 ([facility] Nursing Information) Patient in critical care unit? Ass... [id number] .XX 07/22/17 18:45 (Milk Of Magnesia Liq) 30 ml Q12H PRN PO 07/23/17 15:30 (Phenergan Inj) 12.5 mg Q6H PRN IV-CENTRAL 07/23/17 15:30 (Peridex 0.12% Liq) 15 ml BID@08,20 MT 07/24/17 08:00 08/04/17 08:00 Fentanyl Citrate 250 ml @ 5 mls/hr TITRATE PRN IV 07/24/17 03:15 08/04/17 06:41 (Brethine Inj) 1 mg UNSCH PRN SQ 07/24/17 17:45 (Morphine Inj) 2 mg Q3H PRN IV PUSH 07/24/17 20:45 07/31/17 01:51 (D50w (Vial) Inj) 50 ml UNSCH PRN IV PUSH 07/25/17 08:45 (Glucagon Inj) 1 mg UNSCH PRN OTHER 07/25/17 08:45 Potassium Chloride 100 ml @ 50 mls/hr Q2H PRN IV 07/28/17 09:00 07/28/17 12:57 Potassium Chloride 100 ml @ 50 mls/hr Q2H PRN IV 07/28/17 09:00 07/29/17 02:04 (K-Lyte Cl Eff) 50 meq UNSCH PRN PO 07/28/17 09:00 07/29/17 02:05 Potassium Chloride 100 ml @ 25 mls/hr UNSCH PRN IV 07/28/17 09:00 Potassium Chloride 100 ml @ 50 mls/hr Q2H PRN IV 07/28/17 09:00 07/29/17 02:05 Magnesium Sulfate 4 gm/Sodium Chloride 100 ml @ 50 mls/hr UNSCH PRN IV 07/28/17 09:00 (Mag-Ox) 800 mg UNSCH PRN PO 07/28/17 09:00 Magnesium Sulfate 2 gm/Sodium Chloride 100 ml @ 50 mls/hr UNSCH PRN IV 07/28/17 09:00 (K-Phos) 2,000 mg Q4H PRN PO 07/28/17 09:00 Sodium Phosphate 30 mmol/Sodium Chloride 250 ml @ 42 mls/hr UNSCH PRN IV 07/28/17 09:00 (K-Phos) 2,000 mg UNSCH PRN PO/TUBE 07/28/17 09:00 Potassium Phosphate 30 mmol/ Sodium Chloride 260 ml @ 42 mls/hr UNSCH PRN IV 07/28/17 09:00 08/02/17 17:00 (Diuril Inj) 250 mg DAILY IV 07/28/17 10:00 08/03/17 08:28 (Free Water) 300 ml Q6HR G-TUBE 07/28/17 12:00 08/04/17 05:02 (NovoLIN R SUPPLEMENTAL SCALE) 1 Q4HR SQ 07/28/17 12:00 08/04/17 05:02 Midazolam HCl 50 ml @ 2 mls/hr TITRATE PRN IV 07/28/17 12:00 08/04/17 05:04 Dextrose 1,000 ml @ 42 mls/hr [id number] IV 07/29/17 10:30 08/03/17 20:30 (Cardizem) 60 mg Q6HR PO 07/29/17 14:15 08/04/17 00:33 (Apresoline Inj) 10 mg Q6H PRN IV PUSH 07/29/17 14:15 07/29/17 14:33 Daptomycin 690 mg/ Sodium Chloride 100 ml @ 200 mls/hr Q24H IV 07/29/17 18:00 08/03/17 17:10 (SoluCORTEF INJ) 25 mg Q12HR IV PUSH 07/31/17 09:00 08/04/17 07:59 Lines Line sites with no e.o infection Past Medical History Anxiety Depression Developmental delays - mental handicap Headaches/migraines Hypothyroidism GERD Chest pain Hx of UTIs Renal insufficiency Bladder incontinence Chronic back pain Thyroid surgery EGD - 08/30/16 Cholecystectomy - 03/04/15 D&C Hysterectomy Colonoscopy - 07/30/16 and 08/11/15 Allergies: Coded Allergies: No Known Allergies (Verified Allergy, Unknown, 07/22/17) Objective . Vital Signs Date Time Temp Pulse Resp B/P (MAP) Pulse Ox O2 Delivery O2 Flow Rate FiO2 08/04/17 07:52 35 08/04/17 07:52 98 35 08/04/17 06:00 80 08/04/17 04:18 100 35 08/04/17 04:00 35 08/04/17 04:00 98 08/04/17 04:00 99.6 98 17 129/69 (89) 100 08/04/17 02:00 85 08/04/17 01:17 98 35 08/04/17 00:00 105 08/04/17 00:00 97.5 105 20 173/93 (119) 100 08/04/17 00:00 35 08/03/17 22:47 98 35 08/03/17 22:00 110 08/03/17 20:02 98 35 08/03/17 20:00 35 08/03/17 20:00 100.0 100 21 151/96 (114) 98 08/03/17 20:00 100 08/03/17 18:00 84 08/03/17 16:00 99.4 85 11 87/61 (70) 96 08/03/17 16:00 96 35 08/03/17 16:00 35 08/03/17 16:00 85 08/03/17 14:00 84 08/03/17 13:43 98 35 08/03/17 12:30 95 35 08/03/17 12:00 99.0 97 16 109/59 (76) 89 08/03/17 12:00 97 08/03/17 12:00 35 08/03/17 10:00 90 . Laboratory Tests Test 08/02/17 10:00 08/03/17 04:15 08/04/17 03:43 White Blood Count 17.2 TH/MM3 19.9 TH/MM3 16.7 TH/MM3 Red Blood Count 3.59 MIL/MM3 3.16 MIL/MM3 2.97 MIL/MM3 Hemoglobin 9.6 GM/DL 8.5 GM/DL 8.0 GM/DL Hematocrit 29.8 % 26.4 % 25.1 % Mean Corpuscular Volume 83.0 FL 83.6 FL 84.8 FL Mean Corpuscular Hemoglobin 26.8 PG 27.0 PG 27.0 PG Mean Corpuscular Hemoglobin Concent 32.4 % 32.3 % 31.8 % Red Cell Distribution Width 15.8 % 16.1 % 15.8 % Platelet Count 429 TH/MM3 423 TH/MM3 401 TH/MM3 Mean Platelet Volume 7.7 FL 7.5 FL 7.4 FL Neutrophils (%) (Auto) 85.3 % 83.0 % 85.3 % Lymphocytes (%) (Auto) 9.3 % 9.8 % 8.3 % Monocytes (%) (Auto) 4.6 % 6.1 % 5.7 % Eosinophils (%) (Auto) 0.6 % 0.7 % 0.3 % Basophils (%) (Auto) 0.2 % 0.4 % 0.4 % Neutrophils # (Auto) 14.7 TH/MM3 16.6 TH/MM3 14.3 TH/MM3 Lymphocytes # (Auto) 1.6 TH/MM3 1.9 TH/MM3 1.4 TH/MM3 Monocytes # (Auto) 0.8 TH/MM3 1.2 TH/MM3 1.0 TH/MM3 Eosinophils # (Auto) 0.1 TH/MM3 0.1 TH/MM3 0.0 TH/MM3 Basophils # (Auto) 0.0 TH/MM3 0.1 TH/MM3 0.1 TH/MM3 CBC Comment DIFF FINAL DIFF FINAL DIFF FINAL Differential Comment Laboratory Tests Test 08/02/17 10:00 08/03/17 04:15 Blood Urea Nitrogen 18 MG/DL 17 MG/DL Creatinine 0.62 MG/DL 0.63 MG/DL Random Glucose 129 MG/DL 135 MG/DL Total Protein 5.4 GM/DL 4.8 GM/DL Albumin 1.9 GM/DL 1.6 GM/DL Calcium Level 9.1 MG/DL 8.5 MG/DL Phosphorus Level 2.0 MG/DL 3.0 MG/DL Magnesium Level 1.6 MG/DL Alkaline Phosphatase 84 U/L 77 U/L Aspartate Amino Transf (AST/SGOT) 16 U/L 20 U/L Alanine Aminotransferase (ALT/SGPT) 22 U/L 23 U/L Total Bilirubin 0.5 MG/DL 0.3 MG/DL Sodium Level 141 MEQ/L 143 MEQ/L Potassium Level 3.5 MEQ/L 4.0 MEQ/L Chloride Level 105 MEQ/L 107 MEQ/L Carbon Dioxide Level 27.9 MEQ/L 29.7 MEQ/L Anion Gap 8 MEQ/L 6 MEQ/L Estimat Glomerular Filtration Rate 98 ML/MIN 96 ML/MIN Imaging Chest X-Ray 07/30/17 0000 Signed Impressions: Service Date/Time: Sunday, July 30, 2017 08:14 - CONCLUSION: Underinflation with atelectasis at the lung bases. Otherwise, no acute finding is seen given the technique. Derrick García MD Brain MRI 07/28/17 0000 Signed Impressions: Service Date/Time: Friday, July 28, 2017 14:38 - CONCLUSION: 1. Unremarkable MRI examination the brain. 2. No acute abnormality or interval change. Bob Daly MD Chest CT 07/24/17 0000 Signed Impressions: Service Date/Time: Monday, July 24, 2017 05:36 - CONCLUSION: 1. Stranding in the subcutaneous tissues about the right flank with fluid adjacent to the latissimus dorsi. Stranding extends up into the right breast. Findings could represent developing cellulitis. 2. In addition, there is now a small right-sided effusion with bilateral dependent atelectatic changes. Jerome Brady MD Abdomen/Pelvis CT 07/24/17 0000 Signed Impressions: Service Date/Time: Monday, July 24, 2017 05:36 - CONCLUSION: 1. CT findings concerning for a right sided cellulitis and developing myositis. There is some asymmetric prominence of the latissimus dorsi muscle on the right. Unorganized fluid in the deep subcutaneous tissues adjacent to the muscle belly. No drainable fluid collection, however. 2. Developing dependent areas of consolidation, right greater than left with an associated small right-sided effusion. Jerome Brady MD Head CT 07/22/17 1253 Signed Impressions: Service Date/Time: Saturday, July 22, 2017 13:26 - CONCLUSION: No acute disease. Derrick Henry MD Physical Exam GENERAL: Sedated on the vent, NAD. On CPAP SKIN: No generalized rash. Dry, cool extremities HEAD: Atraumatic. Normocephalic. No temporal or scalp tenderness. EYES: Pupils equal round and reactive. Extraocular motions intact. No scleral icterus. No injection or drainage. ENT: Intubated. Moist mucosa NECK: Trachea midline. Supple, nontender, no meningeal signs. CARDIOVASCULAR: Heart sounds audible. No murmur appreciated. RESPIRATORY: Clear to auscultation. Breath sounds equal bilaterally. No wheezes , rales, or rhonchi. GASTROINTESTINAL: Abdomen soft. Wound vac area noted. Extensive area covered with wound vac sponge, output serosanguineous MUSCULOSKELETAL: Extremities without clubbing, cyanosis. Some pedal edema. Ischemic toes R foot 2-4 toes and tip of 5th toe, no change. Cool feet NEUROLOGICAL: Sedated. Psych could not be assessed IV line sites with no e.o infection Assessment & Plan Remarks Septic shock with multiorgan dysfunction syndrome Sepsis present on admission Necrotizing fasciitis of the abdominal wall ? History of multiple falls likely the precipitant. Acute rhabdomyolysis Acute renal failure: Prerenal, sepsis, rhabdomyolysis Acute metabolic encephalopathy likely sepsis related. Baseline unknown Leukocytosis, lower today - nothing new on C/S; last OR C/S MRSA - could be reactive from last OR Recommendations: Continue Dapto IV (Vanco DELMI 2, clinically still has new areas of erythema and e /o infection outside wound vac margin, acute renal failure) - check CPK in AM Follow cultures Follow CBC Monitor progress For wound vac change Monday per surgery Weaning per CCM Monitor progress Dr Burt covering this weekend Wanda Navarrete MD August 04, 2017 09:24
--- NOTE | 2017-08-04 10:51 | HHI.PR ---
Subjective Subjective Notes Intubated/Sedated Objective Vitals/I&O Vital Signs Date Time Temp Pulse Resp B/P (MAP) Pulse Ox O2 Delivery O2 Flow Rate FiO2 08/04/17 10:00 113 08/04/17 09:54 98 35 08/04/17 08:00 98.4 23 142/82 (102) Labs Laboratory Tests Test 08/04/17 03:43 White Blood Count 16.7 Red Blood Count 2.97 Hemoglobin 8.0 Hematocrit 25.1 Mean Corpuscular Volume 84.8 Mean Corpuscular Hemoglobin 27.0 Mean Corpuscular Hemoglobin Concent 31.8 Red Cell Distribution Width 15.8 Platelet Count 401 Mean Platelet Volume 7.4 Neutrophils (%) (Auto) 85.3 Lymphocytes (%) (Auto) 8.3 Monocytes (%) (Auto) 5.7 Eosinophils (%) (Auto) 0.3 Basophils (%) (Auto) 0.4 Neutrophils # (Auto) 14.3 Lymphocytes # (Auto) 1.4 Monocytes # (Auto) 1.0 Eosinophils # (Auto) 0.0 Basophils # (Auto) 0.1 CBC Comment DIFF FINAL Differential Comment Date/Time Source Procedure Growth Status 07/24/17 05:05 Blood Peripheral Aerobic Blood Culture - Final NO GROWTH IN 5 DAYS Complete 07/24/17 05:05 Blood Peripheral Anaerobic Blood Culture - Final NO GROWTH IN 5 DAYS Complete 07/22/17 20:10 Nasal Washing Influenza Types A,B Antigen (DELMI) - Final NEGATIVE FOR FLU A AND B ANTIGEN.... Complete 07/23/17 16:05 Urine Catheterized Urine Urine Culture - Final NO GROWTH IN 48 HOURS. Complete 07/27/17 15:30 Wound Other Fungal Smear - Final NO FUNGAL ELEMENTS SEEN. Resulted 07/27/17 15:30 Wound Other Fungal Culture - Preliminary NO GROWTH IN 1 WEEK Resulted Cardiovascular: Regular Lungs: Clear Abdomen: Other (large wound vac over RIGHT abdomen/flank/back---with good seal ) Extremities: Other (necrotic appearing toes ) A/P Assessment and Plan 62 year old female with extensive soft tissue infection -s/p I&D of wound; wound vac placement -Plan to go to OR tomorrow for vac change -Continue TF; NPO after MN -Obtain consents -Will need evaluation by Plastic Surgery likely next week Attending Statement patient seen at bedside vac change soon Attestation The exam, history, and the medical decision-making described in the above note were completed with the assistance of the mid-level provider. I reviewed and agree with the findings presented. I attest that I had a [id number] encounter with the patient on the same day, and personally performed and documented my assessment and findings in the medical record. Batool Meneses. PROPERTY MANAGER/Success Coach PROPERTY MANAGER August 04, 2017 10:51 Tip Dumont MD August 13, 2017 21:59
--- NOTE | 2017-08-04 11:32 | HHI.CCPN ---
Subjective Remarks/Hospital Course This is a 62-year-old female with a history of developmental delay and recurrent urinary tract infections who presents with new onset right-sided abdominal and flank pain. Per the [facility] service admission note this is been going on for approximately 4 weeks. Patient has a history of developmental delay and is difficult to get a complete history from her, no analysis with her on my evaluation. On my evaluation she endorses flank pain radiating around to her chest. She endorses subjective chills. Denies recent fevers to me. Also endorses nausea, vomiting. In the emergency department she was found to have significant erythema, rubor, dolor, and edema from approximately the fifth intercostal space down to the eighth or ninth intercostal space wrapping around from the midline in the back all the way around to just medial to the breast. CT scan of the abdomen and pelvis confirms significant subcutaneous edema, but this area of edema appears to be contained by intact fascial planes, particularly in the midline of the back. Laboratory evidence is significant for a white blood cell count of 27k, creatinine is 3.58, potassium 5.4, bicarb of 17.9, anion gap elevated at 15, BUN of 64, an initial lactate of 5.1. In the emergency department she received 3 L of crystalloid IV fluids. Despite this she is hypotensive with a mean arterial pressure of 51. Critical care medicine is consulted to evaluate manage her presumed septic shock secondary to severe cellulitis of the trunk. I have given her an additional liter of crystalloid and then placed central venous access, see separate procedure note for details. In addition her lactate is starting to clear and is now 2.9 with an more currently pending, however it is not clearing fast enough and she remains oliguric. I placed a Terrazas for accurate hourly I's and O's. The remainder of the review systems for the patient is negative except documented in the HPI, although this is severely limited by her baseline developmental delay. Subjective 07/23: Patient remains on vasopressors, noted metabolic acidosis, bicarbonate level of 15. Sodium bicarbonate infusion initiated. 07/24 Patient was intubated early this morning now on Vasopressin and Neosyn 300 mics in addition patient is on Amio and Bicarb drips. WBC increased 31. CT abd/pelvis showed right sided cellulites and developing myositis. 07/25 Patient went to OR yesterday s/p wide excisional debridement of soft tissue infection with VAC placement for necrotizing soft tissue infection of abdomen, right hip area right torso area measuring approximately 32 x 18 inches x 2 inches deep. She remains on Vasopressin 0.04 and Neosyn down to 120 mics. On Amio drip. 07/26 No events overnight. Off all pressors, WBC is trending down. On Amio drip. 07/27 Patient remains intubated for return to OR today and wound vac exchange. 07/28 Patient s/p excisional debridement with vac change yesterday intubated and sedated with Fentanyl infusion. 07/29 Patient remains intubated and sedated with Fentanyl and Versed drips. Afebrile. 07/30 No events overnight. Patient remains sedated with Fentanyl drip and intubated. For OR today for further debridement and wound vac exchange. Afebrile. 07/31 Patient went to OR yesterday for vac exchange, Afebrile, WBC is trending down, Intubated and now sedated with Fentanyl and Versed 2mg/hr 08/01: Remains sedated, orally intubated on mechanical ventilation. Scheduled for OR today for vac exchange. 08/02: Remains intubated scheduled for OR again today. Antibiotics per ID. Slight increase in WBC count is 17.2 08/03: s/p Excisional debridement with VAC change yesterday by Dr. Dumont. Tolerating CPAP but not waking up or following commands. Dr. Dumont plans for further wound debridement and VAC change either tomorrow or Monday. Anticipating OR will leave patient intubated. WBC 19.9 today, will discuss with ID 08/04: Remains intubated, intermittently agitated on the vent. Or planned for tomorrow by Dr. Dumont. WBC count is slightly improved today 16.7 Objective Vital Signs Date Time Temp Pulse Resp B/P (MAP) Pulse Ox O2 Delivery O2 Flow Rate FiO2 08/04/17 10:00 113 08/04/17 09:54 98 35 08/04/17 08:00 98.4 23 142/82 (102) Intake and Output 08/04/17 08/04/17 08/05/17 08:00 16:00 00:00 Intake Total 1549 ml Output Total 2225 ml Balance -676 ml Result Diagram: 08/04/17 0343 08/03/17 0415 Imaging Last Impressions Chest X-Ray 07/30/17 0000 Signed Impressions: Service Date/Time: Sunday, July 30, 2017 08:14 - CONCLUSION: Underinflation with atelectasis at the lung bases. Otherwise, no acute finding is seen given the technique. Derrick García MD Brain MRI 07/28/17 0000 Signed Impressions: Service Date/Time: Friday, July 28, 2017 14:38 - CONCLUSION: 1. Unremarkable MRI examination the brain. 2. No acute abnormality or interval change. Bob Daly MD Chest CT 07/24/17 0000 Signed Impressions: Service Date/Time: Monday, July 24, 2017 05:36 - CONCLUSION: 1. Stranding in the subcutaneous tissues about the right flank with fluid adjacent to the latissimus dorsi. Stranding extends up into the right breast. Findings could represent developing cellulitis. 2. In addition, there is now a small right-sided effusion with bilateral dependent atelectatic changes. Jerome Brady MD Abdomen/Pelvis CT 07/24/17 0000 Signed Impressions: Service Date/Time: Monday, July 24, 2017 05:36 - CONCLUSION: 1. CT findings concerning for a right sided cellulitis and developing myositis. There is some asymmetric prominence of the latissimus dorsi muscle on the right. Unorganized fluid in the deep subcutaneous tissues adjacent to the muscle belly. No drainable fluid collection, however. 2. Developing dependent areas of consolidation, right greater than left with an associated small right-sided effusion. Jerome Brady MD Head CT 07/22/17 1253 Signed Impressions: Service Date/Time: Saturday, July 22, 2017 13:26 - CONCLUSION: No acute disease. Derrick Henry MD Objective Remarks GENERAL: Elderly female, lying in bed intubated. HEENT: Normocephalic. Atraumatic. Pupils equal, round, reactive, conjugate. Orotracheally intubated NECK: Trachea is midline. There is no JVD. CHEST: Equal chest rise. On PRVC CARDIOVASCULAR: RRR, nl S1, S2 ABDOMEN: Soft, nontender, nondistended, +BS, wound Vac in place on the right flank covering extensive areas of debridement. MUSCULOSKELETAL: Pulses 2+. No peripheral edema. Gangrene of 2-4 toes on right NEUROLOGICAL: Intubated, sedated. Moving all extremities spontaneously. Do not wake up or follow commands Date of Insertion: Jul 22, 2017 A/P Assessment and Plan Active problems: Acute respiratory failure Septic shock Right flank necrotizing fascia Acute kidney injury Leukocytosis Elevated CK Anemia Thrombocytopenia Hypothyroidism Plan: Neurologic: Neuro checks per ICU protocol. Fentanyl, Versed infusion for sedation and vent synchrony. Daily sedation vacation. 07/22 CT brain: No acute disease. MRI brain 07/28 Unremarkable Tylenol 650 mg every 6 hours as needed for pain and/or temperature greater than 100.5 Respiratory: Continue with vent support keep sats >92% On PRVC. Daily SBT Bronchodilators, ICU vent bundle. No extubation due to frequent OR procedures. Plan for further debridement and wound VAC change 08/05/[address] Dumont CXR 07/30: Atelectasis at lung bases Cardiovascular: Monitor HR and BP keep MAP>65mmHg. Tapering steroids- HC 25mg IV Q12 Echo showed EF 50-55% Renal: Monitor renal function, I/O's, Avoid nephrotoxins Renal is following- . On Free water 300ml Q6, monitor sodium level. D5W@42ml/hr, monitor sodium level-DC today 08/04/17 On Diuril 250mg IV daily per renal. FEN/GI: On Pepcid 10mg BID for GI prophylaxis Tube feeds- Glucerna 1.5 with goal rate 45ml/hr ID: Continue with abx (Daptomycin) ID is following. Monitor for signs of infections ( Fever, WBC) WBC is trending down 07/24, 07/27 Wound cx :MRSA 07/24 BC :NGTD 07/23: urine cx: No growth 07/22 BC: NGTD Plan for further debridement and wound VAC change 08/04/17 or 08/05/[address] Dumont Path report: Abdominal soft tissue excision: Skin and subcutaneous adipose tissue with acute cellulitis and multifocal abscess formation 07/30 Wound vac exchange 07/27 s/p excisional debridement with vac change of torso and abdomen 07/24 s/p wide excisional debridement of soft tissue infection with VAC placement for necrotizing soft tissue infection of abdomen, right hip area right torso area measuring approximately 32 x 18 inches x 2 inches deep. Surgery -Dr. Dumont. Heme: Monitor CBC, transfuse PRBC as needed Endocrine: levothyroxine 112 mcg/day on hold. TSH:0.08 on 07/24 Glucose monitoring per ICU protocol. -- Continue SSI medium scale for glycemic control Musk: Cyanosis/dry gangrene setting in of toes on right- Likely pressors induced ischemia of toes. Seen by vascular surg- no additional vascular work up needed given palpable pulses, Prophylaxis: GI Prophylaxis Famotidine DVT Prophylaxis -- SCDs Lines: Central line placed on 07/22. Peripheral IVs 2, Level 3 Tracey Meza MD August 04, 2017 11:32
[2017-08-04] MEDS: CHLOROTHIAZIDE SOD 500 MG VIAL IV SCH (12:12)
[2017-08-04] MEDS: SODIUM CHLORIDE 0.9% IV SCH (18:11)
[2017-08-04] MEDS: DAPTOMYCIN IV SCH (18:11)
[2017-08-04] MEDS: ACETAMINOPHEN 325 MG TAB PO PRN (21:12)
--- NOTE | 2017-08-04 21:57 | RADRPT ---
EXAM DATE/TIME: 08/04/2017 22:37 [place] COMPARISON: CHEST SINGLE AP, August 03, 2017, 3:26. INDICATIONS : Shortness of breath. MEDICAL HISTORY : Diabetes mellitus type II. SURGICAL HISTORY : Hysterectomy. ENCOUNTER: Initial ACUITY: 1 day PAIN SCORE: Non-responsive. LOCATION: Bilateral chest FINDINGS: A single portable frontal view the chest shows the tip of the endotracheal tube 3 cm from the raoul. Tip of the nasogastric tube at the GE junction. Left subclavian central line. Left lower lobe infilt rate is now seen. Right lung is clear. Heart is normal in size. CONCLUSION: Left lower lobe infiltrate. Luis Martinez Jr., MD on August 04, 2017 at 21:53 Board Certified Radiologist. This report was verified electronically.
[2017-08-04] MEDS ORDERED: ALTEPLASE RECOMBINANT 2 MG VIAL INTRACATH PRN (22:00)
[2017-08-04 23:25] LABS: BACTERIA, URINE MANY /hpf; BILIRUBIN, URINE NEG (NEG); BLOOD, URINE MOD (NEG); GLUCOSE,URINE NEG (NEG); KETONE, URINE NEG (NEG); MUCUS URINE FEW /lpf (OCC); NITRITE,URINE NEG (NEG); SQUAMOUS EPITHELIAL CELL URINE 2 /hpf (0-5); URINE COLOR YELLOW (YELLW/STRAW); URINE LEUKOCYTE ESTERASE LARGE (NEG); WHITE BLOOD CELL CLUMPS MANY
[2017-08-05] VITALS (20 sets, daily range): BP systolic 82–150; BP diastolic 50–69; PULSE 76–101; RESP 12–33; TEMP 99–101.5; O2SAT 88–100
[2017-08-05] MEDS: DILTIAZEM HCL 60 MG TAB PO SCH ×5 (00:43→23:18)
[2017-08-05] MEDS: PIPERACIL-TAZO 4.5 GM PREMIX 100 ML IV SCH ×4 (00:44→17:31)
[2017-08-05] MEDS: INSULIN NovoLIN REGULAR SUPPLEMENTAL SCALE SQ SCH ×7 (04:00→23:18)
[2017-08-05] MEDS: fentaNYL DRIP 250 ML IV PRN (04:44)
[2017-08-05] MEDS: FREE WATER G-TUBE SCH ×5 (05:31→23:18)
[2017-08-05] MEDS: ACETAMINOPHEN 325 MG TAB PO PRN ×2 (05:32→23:19)
[2017-08-05] MEDS: MIDAZOLAM 50 MG/50 ML INJ 50 ML IV PRN (05:33)
[2017-08-05 07:30] LABS: AUTOMATED NEUTROPHIL # 18.9 TH/MM3 (1.8-7.7); BASOPHIL # 0.1 TH/MM3 (0-0.2); BASOPHIL % 0.6 % (0.0-2.0); EOSINOPHIL # 0.2 TH/MM3 (0-0.4); EOSINOPHIL % 0.7 % (0.0-4.0); HEMATOCRIT 28.5 % (35.0-46.0); LYMPH % 9.2 % (9.0-44.0); LYMPHOCYTE # 2.1 TH/MM3 (1.0-4.8); MEAN CORPUSCULAR HEMOGLOBIN 26.8 PG (27.0-34.0); MEAN CORPUSCULAR HGB CONC 31.5 % (32.0-36.0); MEAN PLATELET VOLUME 7.4 FL (7.0-11.0); MONO % 6.1 % (0.0-8.0); MONOCYTE # 1.4 TH/MM3 (0-0.9); NEUT % 83.4 % (16.0-70.0); PLATELET COUNT 454 TH/MM3 (150-450); RED BLOOD COUNT 3.35 MIL/MM3 (4.00-5.30); RED CELL DISTRIBUTION WIDTH 15.8 % (11.6-17.2); WHITE BLOOD COUNT 22.6 TH/MM3 (4.0-11.0)
--- NOTE | 2017-08-05 07:52 | HHI.CCPN ---
Subjective Remarks/Hospital Course This is a 62-year-old female with a history of developmental delay and recurrent urinary tract infections who presents with new onset right-sided abdominal and flank pain. Per the [facility] service admission note this is been going on for approximately 4 weeks. Patient has a history of developmental delay and is difficult to get a complete history from her, no analysis with her on my evaluation. On my evaluation she endorses flank pain radiating around to her chest. She endorses subjective chills. Denies recent fevers to me. Also endorses nausea, vomiting. In the emergency department she was found to have significant erythema, rubor, dolor, and edema from approximately the fifth intercostal space down to the eighth or ninth intercostal space wrapping around from the midline in the back all the way around to just medial to the breast. CT scan of the abdomen and pelvis confirms significant subcutaneous edema, but this area of edema appears to be contained by intact fascial planes, particularly in the midline of the back. Laboratory evidence is significant for a white blood cell count of 27k, creatinine is 3.58, potassium 5.4, bicarb of 17.9, anion gap elevated at 15, BUN of 64, an initial lactate of 5.1. In the emergency department she received 3 L of crystalloid IV fluids. Despite this she is hypotensive with a mean arterial pressure of 51. Critical care medicine is consulted to evaluate manage her presumed septic shock secondary to severe cellulitis of the trunk. I have given her an additional liter of crystalloid and then placed central venous access, see separate procedure note for details. In addition her lactate is starting to clear and is now 2.9 with an more currently pending, however it is not clearing fast enough and she remains oliguric. I placed a Terrazas for accurate hourly I's and O's. The remainder of the review systems for the patient is negative except documented in the HPI, although this is severely limited by her baseline developmental delay. Subjective 07/23: Patient remains on vasopressors, noted metabolic acidosis, bicarbonate level of 15. Sodium bicarbonate infusion initiated. 07/24 Patient was intubated early this morning now on Vasopressin and Neosyn 300 mics in addition patient is on Amio and Bicarb drips. WBC increased 31. CT abd/pelvis showed right sided cellulites and developing myositis. 07/25 Patient went to OR yesterday s/p wide excisional debridement of soft tissue infection with VAC placement for necrotizing soft tissue infection of abdomen, right hip area right torso area measuring approximately 32 x 18 inches x 2 inches deep. She remains on Vasopressin 0.04 and Neosyn down to 120 mics. On Amio drip. 07/26 No events overnight. Off all pressors, WBC is trending down. On Amio drip. 07/27 Patient remains intubated for return to OR today and wound vac exchange. 07/28 Patient s/p excisional debridement with vac change yesterday intubated and sedated with Fentanyl infusion. 07/29 Patient remains intubated and sedated with Fentanyl and Versed drips. Afebrile. 07/30 No events overnight. Patient remains sedated with Fentanyl drip and intubated. For OR today for further debridement and wound vac exchange. Afebrile. 07/31 Patient went to OR yesterday for vac exchange, Afebrile, WBC is trending down, Intubated and now sedated with Fentanyl and Versed 2mg/hr 08/01: Remains sedated, orally intubated on mechanical ventilation. Scheduled for OR today for vac exchange. 08/02: Remains intubated scheduled for OR again today. Antibiotics per ID. Slight increase in WBC count is 17.2 08/03: s/p Excisional debridement with VAC change yesterday by Dr. Dumont. Tolerating CPAP but not waking up or following commands. Dr. Dumont plans for further wound debridement and VAC change either tomorrow or Monday. Anticipating OR will leave patient intubated. WBC 19.9 today, will discuss with ID 08/04: Remains intubated, intermittently agitated on the vent. Or planned for tomorrow by Dr. Dumont. WBC count is slightly improved today 16.7 08/05: Patient is more critical today with worsening sepsis. T-max 102, WBC count up to 22.6. Hypotensive blood pressure 78/51. I have ordered 1 L normal saline bolus. Pancultured overnight. Zosyn started by Dr. Mcdonald. I will start micafungin also. Will inform ID. Dr. Dumont planning for OR today Objective Vital Signs Date Time Temp Pulse Resp B/P (MAP) Pulse Ox O2 Delivery O2 Flow Rate FiO2 08/05/17 06:32 12 08/05/17 06:00 88 08/05/17 04:33 94 35 08/05/17 04:00 101.5 82/50 (61) 08/04/17 21:30 Ventilator Intake and Output 08/05/17 08/05/17 08/06/17 08:00 16:00 00:00 Intake Total 986 ml Output Total 1550 ml Balance -564 ml Result Diagram: 08/05/17 0629 08/03/17 0415 Imaging Last Impressions Chest X-Ray 07/30/17 0000 Signed Impressions: Service Date/Time: Sunday, July 30, 2017 08:14 - CONCLUSION: Underinflation with atelectasis at the lung bases. Otherwise, no acute finding is seen given the technique. Derrick García MD Brain MRI 07/28/17 0000 Signed Impressions: Service Date/Time: Friday, July 28, 2017 14:38 - CONCLUSION: 1. Unremarkable MRI examination the brain. 2. No acute abnormality or interval change. Bob Daly MD Chest CT 07/24/17 0000 Signed Impressions: Service Date/Time: Monday, July 24, 2017 05:36 - CONCLUSION: 1. Stranding in the subcutaneous tissues about the right flank with fluid adjacent to the latissimus dorsi. Stranding extends up into the right breast. Findings could represent developing cellulitis. 2. In addition, there is now a small right-sided effusion with bilateral dependent atelectatic changes. Jerome Brady MD Abdomen/Pelvis CT 07/24/17 0000 Signed Impressions: Service Date/Time: Monday, July 24, 2017 05:36 - CONCLUSION: 1. CT findings concerning for a right sided cellulitis and developing myositis. There is some asymmetric prominence of the latissimus dorsi muscle on the right. Unorganized fluid in the deep subcutaneous tissues adjacent to the muscle belly. No drainable fluid collection, however. 2. Developing dependent areas of consolidation, right greater than left with an associated small right-sided effusion. Jerome Brady MD Head CT 07/22/17 1253 Signed Impressions: Service Date/Time: Saturday, July 22, 2017 13:26 - CONCLUSION: No acute disease. Derrick Henry MD Objective Remarks GENERAL: Elderly female, lying in bed intubated. Sedated with Versed and fentanyl HEENT: Normocephalic. Atraumatic. Pupils equal, round, reactive, conjugate. Orotracheally intubated NECK: Trachea is midline. There is no JVD. CHEST: Equal chest rise. On PRVC CARDIOVASCULAR: RRR, nl S1, S2 ABDOMEN: Soft, nontender, nondistended, +BS, wound Vac in place on the right flank covering extensive areas of debridement. MUSCULOSKELETAL: Pulses 2+. No peripheral edema. Gangrene of 2-4 toes on right NEUROLOGICAL: Intubated, sedated. Moving all extremities spontaneously. Do not wake up or follow commands Date of Insertion: Jul 22, 2017 A/P Assessment and Plan Active problems: Acute respiratory failure Septic shock New fever, leukocytosis Right flank necrotizing fascia Acute kidney injury Elevated CK Anemia Thrombocytopenia Hypothyroidism Plan: Neurologic: Neuro checks per ICU protocol. Fentanyl, Versed infusion for sedation and vent synchrony. Daily sedation vacation. Resume after OR today 07/22 CT brain: No acute disease. MRI brain 07/28 Unremarkable Tylenol 650 mg every 6 hours as needed for pain and/or temperature greater than 100.5 Respiratory: Continue with vent support keep sats >92% On PRVC. Daily SBT Bronchodilators, ICU vent bundle. No extubation due to frequent OR procedures. Plan for further debridement and wound VAC change today 08/05/[address] Dumont CXR 07/30: Atelectasis at lung bases Cardiovascular: Monitor HR and BP keep MAP>65mmHg. Tapering steroids- HC 25mg IV Q12 DCd 08/04. Restart if patient becomes hypotensive Normal saline 1 L bolus Echo showed EF 50-55% Renal: Monitor renal function, I/O's, Avoid nephrotoxins Renal is following- . On Free water 300ml Q6, monitor sodium level. On Diuril 250mg IV daily per renal. Hold due to new onset sepsis FEN/GI: On Pepcid 10mg BID for GI prophylaxis Tube feeds- Glucerna 1.5 with goal rate 45ml/hr -held for OR ID: New onset sepsis with fever 102, WBC count 22.6, and hypotension Zosyn added overnight, add micafungin 08/05/2017. Central line discontinued, pancultures sent Continue with abx (Daptomycin) ID is following. 07/24, 07/27 Wound cx :MRSA 07/24 BC :NGTD 07/23: urine cx: No growth 07/22 BC: NGTD Plan for further debridement and wound VAC change 08/04/17 or 08/05/[address] Dumont Path report: Abdominal soft tissue excision: Skin and subcutaneous adipose tissue with acute cellulitis and multifocal abscess formation 07/30 Wound vac exchange 07/27 s/p excisional debridement with vac change of torso and abdomen 07/24 s/p wide excisional debridement of soft tissue infection with VAC placement for necrotizing soft tissue infection of abdomen, right hip area right torso area measuring approximately 32 x 18 inches x 2 inches deep. Surgery -Dr. Dumont. Heme: Monitor CBC, transfuse PRBC as needed Endocrine: levothyroxine 112 mcg/day on hold. TSH:0.08 on 07/24 Glucose monitoring per ICU protocol. -- Continue SSI medium scale for glycemic control Musk: Cyanosis/dry gangrene setting in of toes on right- Likely pressors induced ischemia of toes. Seen by vascular surg- no additional vascular work up needed given palpable pulses, Prophylaxis: GI Prophylaxis Famotidine DVT Prophylaxis SCDs. Chemical DVT prophylaxis when cleared by Dr. Dumont Lines: Central line placed on 07/22 DCd 08/05/17. Peripheral IVs 2, CCT 35 MIN Tracey Meza MD August 05, 2017 07:52
[2017-08-05 07:54] LABS: ALBUMIN 1.5 GM/DL (3.4-5.0); ALT (GPT) 24 U/L (10-53); AST (GOT) 27 U/L (15-37); BICARBONATE 30.5 MEQ/L (21.0-32.0); BLOOD UREA NITROGEN 15 MG/DL (7-18); CALCIUM 8.6 MG/DL (8.5-10.1); CHLORIDE 104 MEQ/L (98-107); CREATININE 0.77 MG/DL (0.50-1.00); GLOMERULAR FILTRATION RATE 76 ML/MIN (>89); GLUCOSE,RANDOM 75 MG/DL (74-106); SODIUM (NA) 141 MEQ/L (136-145)
[2017-08-05 07:56] LABS: ALKALINE PHOSPHATASE 65 U/L (45-117); TOTAL BILIRUBIN ADULT 0.5 MG/DL (0.2-1.0); TOTAL PROTEIN 4.9 GM/DL (6.4-8.2)
[2017-08-05] MEDS: CHLORHEXIDINE 0.12% (ORAL KIT) 15 ML CUP MT SCH ×2 (08:00→21:15)
[2017-08-05] MEDS: CALCIUM/VITAMIN D 250 MG/125 U TAB PO SCH (09:00)
[2017-08-05] MEDS: DOCUSATE SODIUM 50 MG/SENNA 8.6 MG TAB PO SCH ×2 (09:00→21:15)
[2017-08-05] MEDS: MULTIVITAMIN-OPHTHALMIC 1 TAB PO SCH (09:00)
[2017-08-05] MEDS: BUDESONIDE 9 MG PO SCH (09:00)
[2017-08-05] MEDS: SODIUM CHLORIDE 0.9% FLUSH 10 ML FLUSH IV FLUSH SCH ×2 (09:00→21:00)
[2017-08-05] MEDS: FAMOTIDINE 20 MG TAB PO SCH ×2 (09:00→21:15)
--- NOTE | 2017-08-05 09:57 | HHI.PR ---
cc: Kvng Barrow MD Immediate Post Op Note Procedure Date: August 05, 2017 Pre Op Diagnosis: Necrotizing fasciitis, right flank and chest wall Post Op Diagnosis: Same Surgeon: Kvng Barrow Vehicle Dynamics Engineer(s): Diana Martin CFA Procedure: Irrigation and debridement, subcutaneous tissue and fascia 250 cm 2 Placement of VAC dressing Findings: Nonviable fatty subcutaneous tissue and fascia Complications: None Specimen(s) removed: tissue discarded Estimated blood loss: 30 ml Anesthesia: General Drains: None IVF (500 ml) Patient to: Other ([facility]) Patient Condition: Good Date/Time of Procedure: SEE SURGICAL CARE RECORD Kvng Barrow MD August 05, 2017 09:57
--- NOTE | 2017-08-05 10:29 | MP ---
cc: Kvng Barrow MD DATE OF OPERATION: 08/05/2017 DATE OF PROCEDURE: 08/05/2017 PROCEDURE PERFORMED: Irrigation and debridement of right flank and right chest wall with removal of 250 square cm subcutaneous tissue and fascia. PREOPERATIVE DIAGNOSIS: Necrotizing fasciitis, status post debridements x 2. POSTOPERATIVE DIAGNOSIS: Necrotizing fasciitis, status post debridements x 2. ANESTHESIA: General endotracheal. SURGEON: Kvng Barrow MD ESTIMATED BLOOD LOSS: 30 mL. FLUIDS: 500 mL crystalloid. COMPLICATIONS: None. DRAINS: None. SPECIMENS: None (necrotic tissue discarded). PROCEDURE IN DETAIL: The patient was brought directly from intensive care and placed on the operating table in the supine position. She was then positioned on the beanbag in a left lateral decubitus position with the right side up. The previous dressing was removed, the skin and wound was prepped with Betadine and the region prepped and draped. Timeout was taken,confirming we had the correct patient, site, and procedure to be performed. Tissue that was clearly nonviable was debrided back to bleeding tissue. Approximately 250 square cm of tissue,including mostly fat, but also fascia from the right chest wall and flank area were sharply debrided away. When this had been completed, small bleeding points were controlled with electrocautery. The wound was then irrigated with saline and a VAC dressing reapplied. The sponge was stapled in place to prevent slippage and movement,and then multiple pieces of adhesive,including Ioban,were used to create a good seal. The patient was taken back to intensive medical care in stable condition. Sponge, needle,and instrument counts were reported to be correct. She tolerated the procedure well and was not on pressors at the beginning of the case and did not require any throughout or at the end. MD ISAAK Kaye/KD , 10:12 AM , 10:28 AM
[2017-08-05] MEDS: MICAFUNGIN INJ 150 MG in SODIUM CHLORIDE 0.9% INJ 100 ML IV SCH (14:06)
[2017-08-05] MEDS: DAPTOMYCIN IV SCH (18:17)
[2017-08-05] MEDS: SODIUM CHLORIDE 0.9% IV SCH (18:17)
--- NOTE | 2017-08-05 19:08 | HHI.IDPN ---
Note Infectious Disease Note ID coverage. Notes reviewed. Patient underwent surgical debridement today. She is on the ventilator. Noted to a thrombus in the right upper extremity. Sedated. Urine culture 08/04 has gram-negative juan. Had surgery 08/02 - excisional debridement of extensive wounds Repeat wound C/S MRSA Blood culture pending. Sputum culture pending. Dapto IV Piperacillin/tazobactam. Function. Current Medications Medications (Trade) Dose Ordered Sig/Beatrice Route PRN Reason Start Time Stop Time Status Last Admin Dose Admin Vit C/Vit E/Zinc/ Copper/Lutein (Ocuvite) 1 tab DAILY PO 07/23/17 09:00 08/03/17 08:28 Patient Own Medication PT OWN MED: B[facility]... DAILY PO 07/23/17 09:00 Calcium/Vitamin D (Oscal-D 250-125) 500 mg DAILY PO 07/23/17 09:00 08/04/17 08:00 Famotidine (Pepcid) 10 mg BID PO 07/22/17 21:00 08/04/17 20:12 Sodium Chloride (NS Flush) 2 ml UNSCH PRN IV FLUSH FLUSH AFTER USING IV ACCESS 07/22/17 16:45 08/01/17 08:02 Sodium Chloride (NS Flush) 2 ml BID IV FLUSH 07/22/17 21:00 08/04/17 20:13 Ondansetron HCl (Zofran Inj) 4 mg Q6H PRN IVP NAUSEA OR VOMITING 07/22/17 16:45 07/23/17 22:11 Acetaminophen (Tylenol) 650 mg Q6H PRN PO TEMP>100.4F,PAIN1-2 07/22/17 16:45 08/05/17 05:32 Tramadol HCl (Ultram) 50 mg Q6H PRN PO PAIN SCALE 3 TO 5 07/22/17 16:45 07/30/17 06:00 Tramadol HCl (Ultram) 100 mg Q4H PRN PO PAIN SCALE 6 TO 10 07/22/17 16:45 07/30/17 13:39 Naloxone HCl (Narcan Inj) 0.4 mg UNSCH PRN IV PUSH SEE LABEL COMMENTS 07/22/17 16:45 Senna/Docusate Sodium (Natalie-Colace) 1 tab BID PO 07/22/17 21:00 08/04/17 20:12 Sennosides (Senokot) 17.2 mg Q12H PRN PO Moderate constipation 07/22/17 16:45 Bisacodyl (Dulcolax Supp) 10 mg DAILY PRN RECTAL SEVERE CONSITIPATION 07/22/17 16:45 Lactulose (Lactulose Liq) 30 ml DAILY PRN PO SEVERE CONSITIPATION 07/22/17 16:45 Miscellaneous Information ([facility] Information) Patient in critical care unit? Ass... [id number] .XX 07/22/17 18:45 Magnesium Hydroxide (Milk Of Magnesia Liq) 30 ml Q12H PRN PO Mild constipation 07/23/17 15:30 Promethazine HCl (Phenergan Inj) 12.5 mg Q6H PRN IV-CENTRAL NAUSEA OR VOMITING 07/23/17 15:30 Chlorhexidine Gluconate (Peridex 0.12% Liq) 15 ml BID@08,20 MT 07/24/17 08:00 08/04/17 20:07 Fentanyl Citrate 250 ml @ 5 mls/hr TITRATE PRN IV SEDATION 07/24/17 03:15 08/05/17 04:44 Terbutaline Sulfate (Brethine Inj) 1 mg UNSCH PRN SQ For Extravasation 07/24/17 17:45 Morphine Sulfate (Morphine Inj) 2 mg Q3H PRN IV PUSH BREAKTHROUGH PAIN 07/24/17 20:45 07/31/17 01:51 Dextrose (D50w (Vial) Inj) 50 ml UNSCH PRN IV PUSH HYPOGLYCEMIA-SEE COMMENTS 07/25/17 08:45 Glucagon (Glucagon Inj) 1 mg UNSCH PRN OTHER HYPOGLYCEMIA-SEE COMMENTS 07/25/17 08:45 Potassium Chloride 100 ml @ 50 mls/hr Q2H PRN IV For Potassium 2.8 - 3.2 mEq/L 07/28/17 09:00 07/28/17 12:57 Potassium Chloride 100 ml @ 50 mls/hr Q2H PRN IV For Potassium 2.8 - 3.2 mEq/L 07/28/17 09:00 07/29/17 02:04 Potassium Bicarb/ Potassium Chloride (K-Lyte Cl Eff) 50 meq UNSCH PRN PO For Potassium 3.3 - 3.5 mEq/L 07/28/17 09:00 07/29/17 02:05 Potassium Chloride 100 ml @ 25 mls/hr UNSCH PRN IV For Potassium 3.3 - 3.5 mEq/L 07/28/17 09:00 Potassium Chloride 100 ml @ 50 mls/hr Q2H PRN IV For Potassium 3.3 - 3.5 mEq/L 07/28/17 09:00 07/29/17 02:05 Magnesium Sulfate 4 gm/Sodium Chloride 100 ml @ 50 mls/hr UNSCH PRN IV For Magnesium 0.9 - 1.1 mg/dL 07/28/17 09:00 Magnesium Oxide (Mag-Ox) 800 mg UNSCH PRN PO For Magnesium 1.2 - 1.6 mg/dL 07/28/17 09:00 Magnesium Sulfate 2 gm/Sodium Chloride 100 ml @ 50 mls/hr UNSCH PRN IV For Magnesium 1.2 - 1.6 mg/dL 07/28/17 09:00 Potassium Phosphate (K-Phos) 2,000 mg Q4H PRN PO For Phosphorus < 2.5 mg/dL 07/28/17 09:00 Sodium Phosphate 30 mmol/Sodium Chloride 250 ml @ 42 mls/hr UNSCH PRN IV For Phosphorus < 2.5 mg/dL 07/28/17 09:00 Potassium Phosphate (K-Phos) 2,000 mg UNSCH PRN PO/TUBE SEE LABEL COMMENTS 07/28/17 09:00 Potassium Phosphate 30 mmol/ Sodium Chloride 260 ml @ 42 mls/hr UNSCH PRN IV SEE LABEL COMMENTS 07/28/17 09:00 08/02/17 17:00 Chlorothiazide Sodium (Diuril Inj) 250 mg DAILY IV 07/28/17 10:00 Future Hold 08/04/17 12:12 Water (Free Water) 300 ml Q6HR G-TUBE 07/28/17 12:00 08/05/17 18:00 Insulin Human Regular (NovoLIN R SUPPLEMENTAL SCALE) 1 Q4HR SQ 07/28/17 12:00 08/04/17 05:02 Midazolam HCl 50 ml @ 2 mls/hr TITRATE PRN IV SEDATION 07/28/17 12:00 08/05/17 05:33 Diltiazem HCl (Cardizem) 60 mg Q6HR PO 07/29/17 14:15 08/05/17 05:32 Hydralazine HCl (Apresoline Inj) 10 mg Q6H PRN IV PUSH SYS BP GREATER THAN 160 MMHG 07/29/17 14:15 07/29/17 14:33 Daptomycin 690 mg/ Sodium Chloride 100 ml @ 200 mls/hr Q24H IV 07/29/17 18:00 08/05/17 18:17 Alteplase, Recombinant (Cathflo Activase Inj) 2 mg Q2H PRN INTRACATH OCCLUDED CATHETER 08/04/17 22:00 Piperacillin Sod/ Tazobactam Sod 100 ml @ 200 mls/hr Q6H IV 08/05/17 00:15 08/05/17 17:31 Micafungin Sodium 150 mg/Sodium Chloride 100 ml @ 100 mls/hr Q24H IV 08/05/17 09:00 08/05/17 14:06 Lines Line sites with no e.o infection Past Medical History Anxiety Depression Developmental delays - mental handicap Headaches/migraines Hypothyroidism GERD Chest pain Hx of UTIs Renal insufficiency Bladder incontinence Chronic back pain Thyroid surgery EGD - 08/30/16 Cholecystectomy - 03/04/15 D&C Hysterectomy Colonoscopy - 07/30/16 and 08/11/15 Allergies: Coded Allergies: No Known Allergies (Verified Allergy, Unknown, 07/22/17) Objective Vital Signs Date Time Temp Pulse Resp B/P (MAP) Pulse Ox O2 Delivery O2 Flow Rate FiO2 08/05/17 18:00 76 08/05/17 16:00 35 08/05/17 16:00 99.0 89 16 150/58 (88) 96 08/05/17 16:00 76 08/05/17 15:08 96 35 08/05/17 14:00 76 08/05/17 12:03 98 35 08/05/17 12:00 76 08/05/17 12:00 99.0 93 16 105/64 (78) 88 08/05/17 12:00 35 08/05/17 10:00 84 08/05/17 08:00 35 08/05/17 08:00 99.4 91 33 128/69 (88) 99 08/05/17 08:00 78 08/05/17 07:45 97 35 08/05/17 07:30 100 100 08/05/17 06:32 12 08/05/17 06:00 88 08/05/17 04:33 94 35 08/05/17 04:00 35 08/05/17 04:00 84 08/05/17 04:00 101.5 84 15 82/50 (61) 93 08/05/17 02:00 101 08/05/17 01:08 96 35 08/05/17 00:00 100.9 98 17 134/63 (86) 97 08/05/17 00:00 35 08/05/17 00:00 98 08/04/17 22:00 93 08/04/17 21:30 97 Ventilator 35 08/04/17 21:30 97 35 08/04/17 20:00 102.0 91 17 95/53 (67) 97 08/04/17 20:00 91 08/04/17 20:00 35 Laboratory Tests Test 08/04/17 22:08 08/05/17 06:29 Urine Color YELLOW Urine Turbidity CLOUDY Urine pH 6.0 Urine Specific [place] 1.017 Urine Protein 30 mg/dL Urine Glucose (UA) NEG mg/dL Urine Ketones NEG mg/dL Urine Occult Blood MOD Urine Nitrite NEG Urine Bilirubin NEG Urine Urobilinogen LESS THAN 2.0 MG/DL Urine Leukocyte Esterase LARGE Urine RBC 121 /hpf Urine WBC /hpf Urine WBC Clumps MANY Urine Squamous Epithelial Cells 2 /hpf Urine Bacteria MANY /hpf Urine Mucus FEW /lpf Urine Yeast with Hyphae FEW Urine Yeast (Budding) MANY Microscopic Urinalysis Comment CATH-CULTURE IND White Blood Count 22.6 TH/MM3 Red Blood Count 3.35 MIL/MM3 Hemoglobin 9.0 GM/DL Hematocrit 28.5 % Mean Corpuscular Volume 85.0 FL Mean Corpuscular Hemoglobin 26.8 PG Mean Corpuscular Hemoglobin Concent 31.5 % Red Cell Distribution Width 15.8 % Platelet Count 454 TH/MM3 Mean Platelet Volume 7.4 FL Neutrophils (%) (Auto) 83.4 % Lymphocytes (%) (Auto) 9.2 % Monocytes (%) (Auto) 6.1 % Eosinophils (%) (Auto) 0.7 % Basophils (%) (Auto) 0.6 % Neutrophils # (Auto) 18.9 TH/MM3 Lymphocytes # (Auto) 2.1 TH/MM3 Monocytes # (Auto) 1.4 TH/MM3 Eosinophils # (Auto) 0.2 TH/MM3 Basophils # (Auto) 0.1 TH/MM3 CBC Comment DIFF FINAL Differential Comment Blood Urea Nitrogen 15 MG/DL Creatinine 0.77 MG/DL Random Glucose 75 MG/DL Total Protein 4.9 GM/DL Albumin 1.5 GM/DL Calcium Level 8.6 MG/DL Alkaline Phosphatase 65 U/L Aspartate Amino Transf (AST/SGOT) 27 U/L Alanine Aminotransferase (ALT/SGPT) 24 U/L Total Bilirubin 0.5 MG/DL Sodium Level 141 MEQ/L Potassium Level 4.2 MEQ/L Chloride Level 104 MEQ/L Carbon Dioxide Level 30.5 MEQ/L Anion Gap 7 MEQ/L Estimat Glomerular Filtration Rate 76 ML/MIN Total Creatine Kinase 106 U/L Imaging Chest X-Ray 08/04/17 0000 Signed Impressions: Service Date/Time: Friday, August 04, 2017 22:37 - CONCLUSION: Left lower lobe infiltrate. Luis Martinez Jr., MD Chest X-Ray 07/30/17 0000 Signed Impressions: Service Date/Time: Sunday, July 30, 2017 08:14 - CONCLUSION: Underinflation with atelectasis at the lung bases. Otherwise, no acute finding is seen given the technique. Derrick García MD Brain MRI 07/28/17 0000 Signed Impressions: Service Date/Time: Friday, July 28, 2017 14:38 - CONCLUSION: 1. Unremarkable MRI examination the brain. 2. No acute abnormality or interval change. Bob Daly MD Chest CT 07/24/17 0000 Signed Impressions: Service Date/Time: Monday, July 24, 2017 05:36 - CONCLUSION: 1. Stranding in the subcutaneous tissues about the right flank with fluid adjacent to the latissimus dorsi. Stranding extends up into the right breast. Findings could represent developing cellulitis. 2. In addition, there is now a small right-sided effusion with bilateral dependent atelectatic changes. Jerome Brady MD Abdomen/Pelvis CT 07/24/17 0000 Signed Impressions: Service Date/Time: Monday, July 24, 2017 05:36 - CONCLUSION: 1. CT findings concerning for a right sided cellulitis and developing myositis. There is some asymmetric prominence of the latissimus dorsi muscle on the right. Unorganized fluid in the deep subcutaneous tissues adjacent to the muscle belly. No drainable fluid collection, however. 2. Developing dependent areas of consolidation, right greater than left with an associated small right-sided effusion. Jerome Brady MD Head CT 07/22/17 1253 Signed Impressions: Service Date/Time: Saturday, July 22, 2017 13:26 - CONCLUSION: No acute disease. Derrick Henry MD Physical Exam GENERAL: Unresponsive on the ventilator. Unable to fully assess. No icterus. Mucosa appears moist. NECK: No swelling. LUNGS: Bilateral basilar rhonchi. HEART: Regular S1 and S2. No audible murmur. ABDOMEN: Decreased bowel sounds, soft. EXTREMITIES: No clubbing or cyanosis. SKIN: Wound VAC in place covering most of the lateral chest wall down to the right flank and right hip region. NEUROLOGIC: Unable to assess. PSYCH: Unable to assess. Assessment & Plan Remarks Septic shock with multiorgan dysfunction syndrome Sepsis present on admission Necrotizing fasciitis of the abdominal wall ? History of multiple falls likely the precipitant. Acute rhabdomyolysis Acute renal failure: Prerenal, sepsis, rhabdomyolysis Acute metabolic encephalopathy likely sepsis related. Baseline unknown Leukocytosis, patient has positive urine culture. Possible because of elevated white cell count. -Chest x-ray also has infiltrate. Possible pneumonia. Recommendations: Continue Dapto IV (Vanco DELMI 2, clinically still has new areas of erythema and e /o infection outside wound vac margin, acute renal failure) Continue micafungin. Continue piperacillin/tazobactam. Follow cultures Follow CBC Monitor progress Discussed with SHADY. Jaylan Burt MD August 05, 2017 19:08
[2017-08-05] MEDS ORDERED: ALBUMIN 5% INJ 500 ML IV ONE (22:30)
[2017-08-05] MEDS: NOREPINEPHRINE 4 MG/D5W 250 ML IV PRN (23:02)
[2017-08-06] VITALS (19 sets, daily range): BP systolic 88–131; BP diastolic 54–83; PULSE 60–82; RESP 10–19; TEMP 98.3–99.8; O2SAT 92–100
--- NOTE | 2017-08-06 00:26 | PD.PROCEDR ---
Procedure Note Procedure Central Line Procedure Note Right subclavian 7 [place] 20 cm triple lumen catheter Diagnosis: Septic shock Indications: Need for highly potent vasoactive substances Consent: Emergent Anesthesia: 1% lidocaine locally, Versed infusion Description of the Procedure: The patient was placed in the supine, mild- Trendelenburg position. The area was prepped and draped sterilely. A 19g needle was inserted under negative pressure aspiration and dark venous blood was obtained. A guidewire was inserted easily without resistance. A small incision was made using a #11 blade. Using a modified Seldinger technique, the dilator and 7 [place], 20 cm catheter were advanced over the guidewire without resistance. All ports were aspirated and flushed, and had brisk blood return. The line was secured at 19 cm at the skin using a non-suture StatLock device. A Biopatch and Transparent sterile dressing were applied. There were no immediate complications noted. There was minimal EBL. The patient tolerated the procedure well. Ultrasound guidance was not used for this procedure A Chest x-ray has been ordered. I personally performed the procedure. Waqas Perdomo MD August 06, 2017 00:26
--- NOTE | 2017-08-06 00:32 | HHI.PR ---
Subjective Remarks Called to bedside to evaluate patient with worsening hypotension. In brief, this is a 62-year-old female with necrotizing abdominal wall infection status post multiple debridements. Patient was taken to the OR yesterday for additional debridement. Patient received crystalloid resuscitation yesterday. Despite this, patient remains hypotensive. Given 500 cc 5% albumin 1 without improvement in hypotension. Patient appears to have ongoing SIRS and septic shock from her ongoing debridement. She is already on broad-spectrum antibiotics as she has been for many weeks. I placed central venous catheter and started her back on norepinephrine infusion for her persistent septic shock. After institution of vasopressors along with fluid, patient's hemodynamics stabilized. Objective Vital Signs Date Time Temp Pulse Resp B/P (MAP) Pulse Ox O2 Delivery O2 Flow Rate FiO2 08/05/17 23:44 96 35 08/05/17 23:02 77 74/42 08/05/17 20:07 99 35 08/05/17 18:00 76 08/05/17 16:00 35 08/05/17 16:00 99.0 89 16 150/58 (88) 96 08/05/17 16:00 76 08/05/17 15:08 96 35 08/05/17 14:00 76 08/05/17 12:03 98 35 08/05/17 12:00 76 08/05/17 12:00 99.0 93 16 105/64 (78) 88 08/05/17 12:00 35 08/05/17 10:00 84 08/05/17 08:00 35 08/05/17 08:00 99.4 91 33 128/69 (88) 99 08/05/17 08:00 78 08/05/17 07:45 97 35 08/05/17 07:30 100 100 08/05/17 06:32 12 08/05/17 06:00 88 08/05/17 04:33 94 35 08/05/17 04:00 35 08/05/17 04:00 84 08/05/17 04:00 101.5 84 15 82/50 (61) 93 08/05/17 02:00 101 08/05/17 01:08 96 35 I/O 08/05/17 08/05/17 08/05/17 08/06/17 08/06/17 08/06/17 06:59 14:59 22:59 06:59 14:59 22:59 Intake Total 986 ml 600 ml 200 ml Output Total 1550 ml 30 ml 600 ml Balance -564 ml 570 ml -400 ml IV Total 500 ml 100 ml 200 ml Tube Feeding 186 ml Other 300 ml 500 ml Output Urine Total 950 ml 600 ml Drainage Total 600 ml Estimated Blood Loss 30 ml # Bowel Movements 0 1 Result Diagram: 08/05/1762808/05/17628 Objective Remarks Briefly, patient is middle-aged, intubated, sedated, very critically ill. Her extremities are cool and poorly perfused. There are very edematous from gross volume overload, however she does display poor capillary refill and appears to be intravascularly dry despite her being total body volume overloaded. She is hypotensive with a mean arterial pressure 51 and a systolic of 81. She has a large wound VAC in her right abdominal wall area. There is no expanding area of erythema compared to the operative note from yesterday. There is minimal urine in the Terrazas catheter since change of shift. Assessment and Plan Assessment and Plan Assessment: 62-year-old female with necrotizing abdominal wall infection and persistence of her septic shock which is worsened tonight. Active problems: Septic shock secondary to necrotizing abdominal wall infection Acute intravascular volume depletion in the setting of total body volume overload Acute hypoxic hypercarbic respiratory failure Plan: Continue volume resuscitation for intravascular volume depletion. Will prefer to use colloid over crystalloid given total body volume overload Titrate norepinephrine for goal map greater than 65 Placed central venous catheter. Prior to placing central venous catheter, I nathaniel sterile blood cultures from a completely prepped and draped sterile site so that we may have accurate blood culture data. Previous blood cultures were drawn on 08/04. Continue current antibiotic plan. This patient remains critically ill with one or more organ systems which are or may become a threat to life. I have spent in excess of 31 minutes discontinuously in the care and management of this patient. This time is exclusive of procedures, and includes, but is not limited to, evaluation of the patient, review of the medical record, discussions with family, consultants, nursing staff, or respiratory therapy, and documentation in the medical record. Waqas Perdomo MD August 06, 2017 00:32
[2017-08-06] MEDS: PIPERACIL-TAZO 4.5 GM PREMIX 100 ML IV SCH ×4 (00:50→19:26)
--- NOTE | 2017-08-06 01:08 | RADRPT ---
EXAM DATE/TIME: 08/06/2017 01:31 [facility] COMPARISON: CHEST SINGLE AP, August 04, 2017, 22:37. INDICATIONS : Right subclavian central line placement. MEDICAL HISTORY : Diabetes mellitus type II. Hypertension SURGICAL HISTORY : Hysterectomy. ENCOUNTER: Subsequent ACUITY: 2 weeks PAIN SCORE: Non-responsive. LOCATION: Right chest FINDINGS: A single AP semierect portable view of the chest was obtained and demonstrates interval placement of a right subclavian central venous line which crosses midline into the left subclavian vein. The previ ous noted left subclavian central venous catheter has been removed. The nasogastric tube has been adv anced into the stomach. Endotracheal tube remains in place with the tip approximately 2 cm above the raoul. Hazy opacity remains in the left perihilar region and left lung base. The right lung remains clear. The heart size is within normal limits. There is no pneumothorax. CONCLUSION: 1. Interval placement of right subclavian central venous line crosses midline with the tip in the lef t subclavian vein. There is no pneumothorax. 2. Hazy opacity remains in the left lung. 3. Nasogastric tube has been advanced further into the stomach. Kvng Nuñez MD on August 06, 2017 at 1:04 Board Certified Radiologist. This report was verified electronically.
[2017-08-06] MEDS: FREE WATER G-TUBE SCH ×3 (03:52→18:00)
[2017-08-06] MEDS: INSULIN NovoLIN REGULAR SUPPLEMENTAL SCALE SQ SCH ×5 (03:52→20:00)
[2017-08-06] MEDS: DILTIAZEM HCL 60 MG TAB PO SCH ×3 (03:52→18:00)
[2017-08-06] MEDS: MIDAZOLAM 50 MG/50 ML INJ 50 ML IV PRN ×3 (03:53→20:31)
[2017-08-06 05:18] LABS: AUTOMATED NEUTROPHIL # 12.1 TH/MM3 (1.8-7.7); BASOPHIL # 0.2 TH/MM3 (0-0.2); BASOPHIL % 1.2 % (0.0-2.0); EOSINOPHIL # 0.3 TH/MM3 (0-0.4); EOSINOPHIL % 1.8 % (0.0-4.0); HEMATOCRIT 22.3 % (35.0-46.0); HEMOGLOBIN 7.2 GM/DL (11.6-15.3); LYMPH % 13.9 % (9.0-44.0); LYMPHOCYTE # 2.2 TH/MM3 (1.0-4.8); MEAN CELL VOLUME 84.4 FL (80.0-100.0); MEAN CORPUSCULAR HEMOGLOBIN 27.3 PG (27.0-34.0); MEAN CORPUSCULAR HGB CONC 32.3 % (32.0-36.0); MEAN PLATELET VOLUME 6.8 FL (7.0-11.0); MONO % 8.3 % (0.0-8.0); MONOCYTE # 1.3 TH/MM3 (0-0.9); NEUT % 74.8 % (16.0-70.0); PLATELET COUNT 419 TH/MM3 (150-450); RED BLOOD COUNT 2.64 MIL/MM3 (4.00-5.30); RED CELL DISTRIBUTION WIDTH 15.9 % (11.6-17.2); WHITE BLOOD COUNT 16.1 TH/MM3 (4.0-11.0)
[2017-08-06 05:22] LABS: BICARBONATE 27.9 MEQ/L (21.0-32.0); CALCIUM 8.8 MG/DL (8.5-10.1); CREATININE 0.77 MG/DL (0.50-1.00)
--- NOTE | 2017-08-06 07:19 | HHI.CCPN ---
Subjective Remarks/Hospital Course This is a 62-year-old female with a history of developmental delay and recurrent urinary tract infections who presents with new onset right-sided abdominal and flank pain. Per the [facility] service admission note this is been going on for approximately 4 weeks. Patient has a history of developmental delay and is difficult to get a complete history from her, no analysis with her on my evaluation. On my evaluation she endorses flank pain radiating around to her chest. She endorses subjective chills. Denies recent fevers to me. Also endorses nausea, vomiting. In the emergency department she was found to have significant erythema, rubor, dolor, and edema from approximately the fifth intercostal space down to the eighth or ninth intercostal space wrapping around from the midline in the back all the way around to just medial to the breast. CT scan of the abdomen and pelvis confirms significant subcutaneous edema, but this area of edema appears to be contained by intact fascial planes, particularly in the midline of the back. Laboratory evidence is significant for a white blood cell count of 27k, creatinine is 3.58, potassium 5.4, bicarb of 17.9, anion gap elevated at 15, BUN of 64, an initial lactate of 5.1. In the emergency department she received 3 L of crystalloid IV fluids. Despite this she is hypotensive with a mean arterial pressure of 51. Critical care medicine is consulted to evaluate manage her presumed septic shock secondary to severe cellulitis of the trunk. I have given her an additional liter of crystalloid and then placed central venous access, see separate procedure note for details. In addition her lactate is starting to clear and is now 2.9 with an more currently pending, however it is not clearing fast enough and she remains oliguric. I placed a Terrazas for accurate hourly I's and O's. The remainder of the review systems for the patient is negative except documented in the HPI, although this is severely limited by her baseline developmental delay. Subjective 07/23: Patient remains on vasopressors, noted metabolic acidosis, bicarbonate level of 15. Sodium bicarbonate infusion initiated. 07/24 Patient was intubated early this morning now on Vasopressin and Neosyn 300 mics in addition patient is on Amio and Bicarb drips. WBC increased 31. CT abd/pelvis showed right sided cellulites and developing myositis. 07/25 Patient went to OR yesterday s/p wide excisional debridement of soft tissue infection with VAC placement for necrotizing soft tissue infection of abdomen, right hip area right torso area measuring approximately 32 x 18 inches x 2 inches deep. She remains on Vasopressin 0.04 and Neosyn down to 120 mics. On Amio drip. 07/26 No events overnight. Off all pressors, WBC is trending down. On Amio drip. 07/27 Patient remains intubated for return to OR today and wound vac exchange. 07/28 Patient s/p excisional debridement with vac change yesterday intubated and sedated with Fentanyl infusion. 07/29 Patient remains intubated and sedated with Fentanyl and Versed drips. Afebrile. 07/30 No events overnight. Patient remains sedated with Fentanyl drip and intubated. For OR today for further debridement and wound vac exchange. Afebrile. 07/31 Patient went to OR yesterday for vac exchange, Afebrile, WBC is trending down, Intubated and now sedated with Fentanyl and Versed 2mg/hr 08/01: Remains sedated, orally intubated on mechanical ventilation. Scheduled for OR today for vac exchange. 08/02: Remains intubated scheduled for OR again today. Antibiotics per ID. Slight increase in WBC count is 17.2 08/03: s/p Excisional debridement with VAC change yesterday by Dr. Dumont. Tolerating CPAP but not waking up or following commands. Dr. Dumont plans for further wound debridement and VAC change either tomorrow or Monday. Anticipating OR will leave patient intubated. WBC 19.9 today, will discuss with ID 08/04: Remains intubated, intermittently agitated on the vent. Or planned for tomorrow by Dr. Dumont. WBC count is slightly improved today 16.7 08/05: Patient is more critical today with worsening sepsis. T-max 102, WBC count up to 22.6. Hypotensive blood pressure 78/51. I have ordered 1 L normal saline bolus. Pancultured overnight. Zosyn started by Dr. Mcdonald. I will start micafungin also. Will inform ID. Dr. Dumont planning for OR today 08/06: Evaluated by night polls or surveys interviewer for persistent worsening hypotension called to bedside to evaluate patient with worsening hypotension. Given 500 cc 5 % albumin 1 without improvement in hypotension. A right subclavian central line was placed and norepinephrine infusion was started for persistent septic shock. Currently map remains above 65, on Levophed at 4 mcg/min. WBC 16.1 slightly improved from yesterday. Hemoglobin has dropped to 7.2 approximately 2 g drop. Transfuse 1 unit of PRBC stat. T-max 100.7, urine culture growing GNR Objective Vital Signs Date Time Temp Pulse Resp B/P (MAP) Pulse Ox O2 Delivery O2 Flow Rate FiO2 08/06/17 06:00 60 08/06/17 04:56 100 35 08/06/17 04:00 98.3 15 117/77 (90) 08/04/17 21:30 Ventilator Intake and Output 08/06/17 08/06/17 08/07/17 08:00 16:00 00:00 Intake Total 1189 ml Output Total 1325 ml Balance -136 ml Result Diagram: 08/06/17 0350 08/06/17 0350 Imaging Last Impressions Chest X-Ray 07/30/17 0000 Signed Impressions: Service Date/Time: Sunday, July 30, 2017 08:14 - CONCLUSION: Underinflation with atelectasis at the lung bases. Otherwise, no acute finding is seen given the technique. Derrick García MD Brain MRI 07/28/17 0000 Signed Impressions: Service Date/Time: Friday, July 28, 2017 14:38 - CONCLUSION: 1. Unremarkable MRI examination the brain. 2. No acute abnormality or interval change. Bob Daly MD Chest CT 07/24/17 0000 Signed Impressions: Service Date/Time: Monday, July 24, 2017 05:36 - CONCLUSION: 1. Stranding in the subcutaneous tissues about the right flank with fluid adjacent to the latissimus dorsi. Stranding extends up into the right breast. Findings could represent developing cellulitis. 2. In addition, there is now a small right-sided effusion with bilateral dependent atelectatic changes. Jerome Brady MD Abdomen/Pelvis CT 07/24/17 0000 Signed Impressions: Service Date/Time: Monday, July 24, 2017 05:36 - CONCLUSION: 1. CT findings concerning for a right sided cellulitis and developing myositis. There is some asymmetric prominence of the latissimus dorsi muscle on the right. Unorganized fluid in the deep subcutaneous tissues adjacent to the muscle belly. No drainable fluid collection, however. 2. Developing dependent areas of consolidation, right greater than left with an associated small right-sided effusion. Jerome Brady MD Head CT 07/22/17 1253 Signed Impressions: Service Date/Time: Saturday, July 22, 2017 13:26 - CONCLUSION: No acute disease. Derrick Henry MD Objective Remarks GENERAL: Elderly female, lying in bed intubated. Sedated with Versed and fentanyl HEENT: Normocephalic. Atraumatic. Pupils equal, round, reactive, conjugate. Orotracheally intubated NECK: Trachea is midline. There is no JVD. CHEST: Equal chest rise. On PRVC CARDIOVASCULAR: RRR, nl S1, S2 ABDOMEN: Soft, nontender, nondistended, +BS, wound Vac in place on the right flank covering extensive areas of debridement. MUSCULOSKELETAL: No peripheral edema. Gangrene of 2-4 toes on right NEUROLOGICAL: Intubated, sedated. Moving all extremities spontaneously, withdraws to pain. Do not follow commands on sedation hold Urinary Catheter: Yes Assessment to: Continue Date of Insertion: Jul 22, 2017 Vascular Central Line Catheter: Yes Date of Insertion: August 06, 2017 Line: Central Venous Catheter A/P Assessment and Plan Active problems: Acute respiratory failure Septic shock Right flank necrotizing fascia New fever, leukocytosis Acute metabolic encephalopathy Anemia requiring transfusion Acute kidney injury Elevated CK Anemia Thrombocytopenia Hypothyroidism Plan: Neurologic: Neuro checks per ICU protocol. Fentanyl, Versed infusion for sedation and vent synchrony. Daily sedation vacation, once hemodynamically more stable 07/22 CT brain: No acute disease. MRI brain 07/28 Unremarkable Tylenol 650 mg every 6 hours as needed for pain and/or temperature greater than 100.5 Respiratory: Continue with vent support keep sats >92% On PRVC. Daily SBT, however mental status and ongoing sepsis will not permit extubation Bronchodilators, ICU vent bundle. CXR 07/30: Atelectasis at lung bases Cardiovascular: Monitor HR and BP keep MAP>65mmHg. Currently on Levophed at 4 mcg/min to keep map above 65 Tapering steroids- HC 25mg IV Q12 DCd 08/04. Restart due to persistent septic shock, if Levophed requirement increasing Status post fluid and albumin resuscitation Echo showed EF 50-55% Renal: Monitor renal function, I/O's, Avoid nephrotoxins Renal is following- . On Free water 300ml Q6, monitor sodium level. Diuril 250mg IV daily per renal on hold FEN/GI: On Pepcid 10mg BID for GI prophylaxis Tube feeds- Glucerna 1.5 with goal rate 45ml/hr ID: New onset sepsis with fever 102, WBC count 22.6, 08/05. Urine cx with GNR Continue with abx (Daptomycin) ID is following. Zosyn and micafungin added 08/05, 07/27 Wound cx :MRSA 07/24 BC :NGTD 07/23: urine cx: No growth 07/22 BC: NGTD 08/04 UC: GNR Path report: Abdominal soft tissue excision: Skin and subcutaneous adipose tissue with acute cellulitis and multifocal abscess formation 07/30 Wound vac exchange 07/27 s/p excisional debridement with vac change of torso and abdomen 07/24 s/p wide excisional debridement of soft tissue infection with VAC placement for necrotizing soft tissue infection of abdomen, right hip area right torso area measuring approximately 32 x 18 inches x 2 inches deep. Surgery -Dr. Dumont. s/p debridement and wound VAC change 08/05/[address] Dumont Heme: Monitor CBC, transfuse PRBC as needed Approximately 2 g hemoglobin drop, hemoglobin is 7.2 today Transfuse 1 unit PRBC Endocrine: Levothyroxine 112 mcg/day on hold. TSH:0.08 on 07/24 Glucose monitoring per ICU protocol. -- Continue SSI medium scale for glycemic control MSK: Dry gangrene setting in of toes on right- Likely pressors induced ischemia of toes. Seen by vascular surg- no additional vascular work up needed given palpable pulses, Prophylaxis: GI Prophylaxis Famotidine DVT Prophylaxis SCDs. Chemical DVT prophylaxis when cleared by Dr. Dumont-susanne due to anemia requiring transfusion Lines: Central line placed on 07/22 DCd 08/05/17. Peripheral IVs 2, New right subclavian central line placed 08/06/17 CCT 35 MIN Tracey Meza MD August 06, 2017 07:19
[2017-08-06] MEDS: SODIUM CHLORIDE 0.9% FLUSH 10 ML FLUSH IV FLUSH SCH ×2 (09:00→19:26)
[2017-08-06] MEDS: DOCUSATE SODIUM 50 MG/SENNA 8.6 MG TAB PO SCH ×2 (09:00→19:27)
[2017-08-06] MEDS: CALCIUM/VITAMIN D 250 MG/125 U TAB PO SCH (09:00)
[2017-08-06] MEDS: BUDESONIDE 9 MG PO SCH (09:00)
--- NOTE | 2017-08-06 12:56 | HHI.IDPN ---
Note Infectious Disease Note ID coverage. Notes reviewed. Patient underwent surgical debridement on 08/05. She is on the ventilator. Currently on 4 mcg of Levophed. Low-grade fever. Sedated. Had surgery 08/02 - excisional debridement of extensive wounds Repeat wound C/S MRSA Blood culture pending. Sputum culture pending. Thrombus in the right upper extremity. Antibiotics: Dapto IV Piperacillin/tazobactam. Micafungin. Current Medications Medications (Trade) Dose Ordered Sig/Beatrice Route PRN Reason Start Time Stop Time Status Last Admin Dose Admin Vit C/Vit E/Zinc/ Copper/Lutein (Ocuvite) 1 tab DAILY PO 07/23/17 09:00 08/03/17 08:28 Patient Own Medication PT OWN MED: BUDESON... DAILY PO 07/23/17 09:00 Calcium/Vitamin D (Oscal-D 250-125) 500 mg DAILY PO 07/23/17 09:00 08/04/17 08:00 Famotidine (Pepcid) 10 mg BID PO 07/22/17 21:00 08/05/17 21:15 Sodium Chloride (NS Flush) 2 ml UNSCH PRN IV FLUSH FLUSH AFTER USING IV ACCESS 07/22/17 16:45 08/01/17 08:02 Sodium Chloride (NS Flush) 2 ml BID IV FLUSH 07/22/17 21:00 08/05/17 21:00 Ondansetron HCl (Zofran Inj) 4 mg Q6H PRN IVP NAUSEA OR VOMITING 07/22/17 16:45 07/23/17 22:11 Acetaminophen (Tylenol) 650 mg Q6H PRN PO TEMP>100.4F,PAIN1-2 07/22/17 16:45 08/05/17 23:19 Tramadol HCl (Ultram) 50 mg Q6H PRN PO PAIN SCALE 3 TO 5 07/22/17 16:45 07/30/17 06:00 Tramadol HCl (Ultram) 100 mg Q4H PRN PO PAIN SCALE 6 TO 10 07/22/17 16:45 07/30/17 13:39 Naloxone HCl (Narcan Inj) 0.4 mg UNSCH PRN IV PUSH SEE LABEL COMMENTS 07/22/17 16:45 Senna/Docusate Sodium (Natalie-Colace) 1 tab BID PO 07/22/17 21:00 08/05/17 21:15 Sennosides (Senokot) 17.2 mg Q12H PRN PO Moderate constipation 07/22/17 16:45 Bisacodyl (Dulcolax Supp) 10 mg DAILY PRN RECTAL SEVERE CONSITIPATION 07/22/17 16:45 Lactulose (Lactulose Liq) 30 ml DAILY PRN PO SEVERE CONSITIPATION 07/22/17 16:45 Miscellaneous Information ([facility] Nursing Information) Patient in critical care unit? Ass... [id number] .XX 07/22/17 18:45 Magnesium Hydroxide (Milk Of Magnesia Liq) 30 ml Q12H PRN PO Mild constipation 07/23/17 15:30 Promethazine HCl (Phenergan Inj) 12.5 mg Q6H PRN IV-CENTRAL NAUSEA OR VOMITING 07/23/17 15:30 Chlorhexidine Gluconate (Peridex 0.12% Liq) 15 ml BID@08,20 MT 07/24/17 08:00 08/05/17 21:15 Fentanyl Citrate 250 ml @ 5 mls/hr TITRATE PRN IV SEDATION 07/24/17 03:15 08/05/17 04:44 Terbutaline Sulfate (Brethine Inj) 1 mg UNSCH PRN SQ For Extravasation 07/24/17 17:45 Morphine Sulfate (Morphine Inj) 2 mg Q3H PRN IV PUSH BREAKTHROUGH PAIN 07/24/17 20:45 07/31/17 01:51 Dextrose (D50w (Vial) Inj) 50 ml UNSCH PRN IV PUSH HYPOGLYCEMIA-SEE COMMENTS 07/25/17 08:45 Glucagon (Glucagon Inj) 1 mg UNSCH PRN OTHER HYPOGLYCEMIA-SEE COMMENTS 07/25/17 08:45 Potassium Chloride 100 ml @ 50 mls/hr Q2H PRN IV For Potassium 2.8 - 3.2 mEq/L 07/28/17 09:00 07/28/17 12:57 Potassium Chloride 100 ml @ 50 mls/hr Q2H PRN IV For Potassium 2.8 - 3.2 mEq/L 07/28/17 09:00 07/29/17 02:04 Potassium Bicarb/ Potassium Chloride (K-Lyte Cl Eff) 50 meq UNSCH PRN PO For Potassium 3.3 - 3.5 mEq/L 07/28/17 09:00 07/29/17 02:05 Potassium Chloride 100 ml @ 25 mls/hr UNSCH PRN IV For Potassium 3.3 - 3.5 mEq/L 07/28/17 09:00 Potassium Chloride 100 ml @ 50 mls/hr Q2H PRN IV For Potassium 3.3 - 3.5 mEq/L 07/28/17 09:00 07/29/17 02:05 Magnesium Sulfate 4 gm/Sodium Chloride 100 ml @ 50 mls/hr UNSCH PRN IV For Magnesium 0.9 - 1.1 mg/dL 07/28/17 09:00 Magnesium Oxide (Mag-Ox) 800 mg UNSCH PRN PO For Magnesium 1.2 - 1.6 mg/dL 07/28/17 09:00 Magnesium Sulfate 2 gm/Sodium Chloride 100 ml @ 50 mls/hr UNSCH PRN IV For Magnesium 1.2 - 1.6 mg/dL 07/28/17 09:00 Potassium Phosphate (K-Phos) 2,000 mg Q4H PRN PO For Phosphorus < 2.5 mg/dL 07/28/17 09:00 Sodium Phosphate 30 mmol/Sodium Chloride 250 ml @ 42 mls/hr UNSCH PRN IV For Phosphorus < 2.5 mg/dL 07/28/17 09:00 Potassium Phosphate (K-Phos) 2,000 mg UNSCH PRN PO/TUBE SEE LABEL COMMENTS 07/28/17 09:00 Potassium Phosphate 30 mmol/ Sodium Chloride 260 ml @ 42 mls/hr UNSCH PRN IV SEE LABEL COMMENTS 07/28/17 09:00 08/02/17 17:00 Chlorothiazide Sodium (Diuril Inj) 250 mg DAILY IV 07/28/17 10:00 Future Hold 08/04/17 12:12 Water (Free Water) 300 ml Q6HR G-TUBE 07/28/17 12:00 08/06/17 03:52 Insulin Human Regular (NovoLIN R SUPPLEMENTAL SCALE) 1 Q4HR SQ 07/28/17 12:00 08/04/17 05:02 Midazolam HCl 50 ml @ 2 mls/hr TITRATE PRN IV SEDATION 07/28/17 12:00 08/06/17 03:53 Diltiazem HCl (Cardizem) 60 mg Q6HR PO 07/29/17 14:15 08/05/17 05:32 Hydralazine HCl (Apresoline Inj) 10 mg Q6H PRN IV PUSH SYS BP GREATER THAN 160 MMHG 07/29/17 14:15 07/29/17 14:33 Daptomycin 690 mg/ Sodium Chloride 100 ml @ 200 mls/hr Q24H IV 07/29/17 18:00 08/05/17 18:17 Alteplase, Recombinant (Cathflo Activase Inj) 2 mg Q2H PRN INTRACATH OCCLUDED CATHETER 08/04/17 22:00 Piperacillin Sod/ Tazobactam Sod 100 ml @ 200 mls/hr Q6H IV 08/05/17 00:15 08/06/17 06:09 Micafungin Sodium 150 mg/Sodium Chloride 100 ml @ 100 mls/hr Q24H IV 08/05/17 09:00 08/05/17 14:06 Norepinephrine Bitartrate 250 ml @ 7.5 mls/hr TITRATE PRN IV Maintain MAP > 65 mmHg 08/05/17 23:00 08/05/17 23:02 Lines Line sites with no e.o infection Past Medical History Anxiety Depression Developmental delays - mental handicap Headaches/migraines Hypothyroidism GERD Chest pain Hx of UTIs Renal insufficiency Bladder incontinence Chronic back pain Thyroid surgery EGD - 08/30/16 Cholecystectomy - 03/04/15 D&C Hysterectomy Colonoscopy - 07/30/16 and 08/11/15 Allergies: Coded Allergies: No Known Allergies (Verified Allergy, Unknown, 07/22/17) Objective Vital Signs Date Time Temp Pulse Resp B/P (MAP) Pulse Ox O2 Delivery O2 Flow Rate FiO2 08/06/17 12:42 99 35 08/06/17 12:00 76 08/06/17 10:00 68 08/06/17 08:00 63 08/06/17 07:33 100 35 08/06/17 06:00 60 08/06/17 04:56 100 35 08/06/17 04:00 98.3 74 15 117/77 (90) 100 08/06/17 04:00 74 08/06/17 04:00 35 08/06/17 02:00 69 08/06/17 00:00 72 08/06/17 00:00 99.8 72 10 88/54 (65) 99 08/06/17 00:00 35 08/05/17 23:44 96 35 08/05/17 23:02 77 74/42 08/05/17 22:00 81 08/05/17 20:07 99 35 08/05/17 20:00 83 08/05/17 20:00 35 08/05/17 20:00 100.7 83 12 89/54 (66) 99 08/05/17 18:00 76 08/05/17 16:00 35 08/05/17 16:00 99.0 89 16 150/58 (88) 96 08/05/17 16:00 76 08/05/17 15:08 96 35 08/05/17 14:00 76 Laboratory Tests Test 08/05/17 06:29 08/06/17 03:50 White Blood Count 22.6 TH/MM3 16.1 TH/MM3 Red Blood Count 3.35 MIL/MM3 2.64 MIL/MM3 Hemoglobin 9.0 GM/DL 7.2 GM/DL Hematocrit 28.5 % 22.3 % Mean Corpuscular Volume 85.0 FL 84.4 FL Mean Corpuscular Hemoglobin 26.8 PG 27.3 PG Mean Corpuscular Hemoglobin Concent 31.5 % 32.3 % Red Cell Distribution Width 15.8 % 15.9 % Platelet Count 454 TH/MM3 419 TH/MM3 Mean Platelet Volume 7.4 FL 6.8 FL Neutrophils (%) (Auto) 83.4 % 74.8 % Lymphocytes (%) (Auto) 9.2 % 13.9 % Monocytes (%) (Auto) 6.1 % 8.3 % Eosinophils (%) (Auto) 0.7 % 1.8 % Basophils (%) (Auto) 0.6 % 1.2 % Neutrophils # (Auto) 18.9 TH/MM3 12.1 TH/MM3 Lymphocytes # (Auto) 2.1 TH/MM3 2.2 TH/MM3 Monocytes # (Auto) 1.4 TH/MM3 1.3 TH/MM3 Eosinophils # (Auto) 0.2 TH/MM3 0.3 TH/MM3 Basophils # (Auto) 0.1 TH/MM3 0.2 TH/MM3 CBC Comment DIFF FINAL DIFF FINAL Differential Comment Laboratory Tests Test 08/05/17 06:29 08/06/17 03:50 Blood Urea Nitrogen 15 MG/DL 13 MG/DL Creatinine 0.77 MG/DL 0.77 MG/DL Random Glucose 75 MG/DL 88 MG/DL Total Protein 4.9 GM/DL Albumin 1.5 GM/DL Calcium Level 8.6 MG/DL 8.8 MG/DL Alkaline Phosphatase 65 U/L Aspartate Amino Transf (AST/SGOT) 27 U/L Alanine Aminotransferase (ALT/SGPT) 24 U/L Total Bilirubin 0.5 MG/DL Sodium Level 141 MEQ/L 142 MEQ/L Potassium Level 4.2 MEQ/L 3.8 MEQ/L Chloride Level 104 MEQ/L 106 MEQ/L Carbon Dioxide Level 30.5 MEQ/L 27.9 MEQ/L Anion Gap 7 MEQ/L 8 MEQ/L Estimat Glomerular Filtration Rate 76 ML/MIN 76 ML/MIN Total Creatine Kinase 106 U/L Microbiology Date/Time Source Procedure Growth Status 08/06/17 00:43 Blood Peripheral Aerobic Blood Culture Pending Resulted 08/06/17 00:43 Blood Peripheral Anaerobic Blood Culture - Final QNS - SEE AEROBE REPORT Resulted 08/04/17 23:42 Blood Peripheral Aerobic Blood Culture - Preliminary NO GROWTH IN 1 DAY Resulted 08/04/17 23:42 Blood Peripheral Anaerobic Blood Culture - Preliminary NO GROWTH IN 1 DAY Resulted 08/04/17 22:02 Blood Line Aerobic Blood Culture - Preliminary NO GROWTH IN 2 DAYS Resulted 08/04/17 22:02 Blood Line Anaerobic Blood Culture - Preliminary NO GROWTH IN 2 DAYS Resulted 08/05/17 05:40 Sputum Endotracheal Gram Stain - Final Resulted 08/05/17 05:40 Sputum Endotracheal Sputum Culture Pending Resulted 08/04/17 22:08 Urine Catheterized Urine Urine Culture - Preliminary Gram Negative Ron Resulted Imaging Chest X-Ray 08/06/17 0000 Signed Impressions: Service Date/Time: Sunday, August 06, 2017 01:31 - CONCLUSION: 1. Interval placement of right subclavian central venous line crosses midline with the tip in the left subclavian vein. There is no pneumothorax. 2. Hazy opacity remains in the left lung. 3. Nasogastric tube has been advanced further into the stomach. Kvng Nuñez MD Chest X-Ray 08/04/17 0000 Signed Impressions: Service Date/Time: Friday, August 04, 2017 22:37 - CONCLUSION: Left lower lobe infiltrate. Luis Martinez Jr., MD Chest X-Ray 07/30/17 0000 Signed Impressions: Service Date/Time: Sunday, July 30, 2017 08:14 - CONCLUSION: Underinflation with atelectasis at the lung bases. Otherwise, no acute finding is seen given the technique. Derrick García MD Brain MRI 07/28/17 0000 Signed Impressions: Service Date/Time: Friday, July 28, 2017 14:38 - CONCLUSION: 1. Unremarkable MRI examination the brain. 2. No acute abnormality or interval change. Bob Daly MD Chest CT 07/24/17 0000 Signed Impressions: Service Date/Time: Monday, July 24, 2017 05:36 - CONCLUSION: 1. Stranding in the subcutaneous tissues about the right flank with fluid adjacent to the latissimus dorsi. Stranding extends up into the right breast. Findings could represent developing cellulitis. 2. In addition, there is now a small right-sided effusion with bilateral dependent atelectatic changes. Jerome Brady MD Abdomen/Pelvis CT 07/24/17 0000 Signed Impressions: Service Date/Time: Monday, July 24, 2017 05:36 - CONCLUSION: 1. CT findings concerning for a right sided cellulitis and developing myositis. There is some asymmetric prominence of the latissimus dorsi muscle on the right. Unorganized fluid in the deep subcutaneous tissues adjacent to the muscle belly. No drainable fluid collection, however. 2. Developing dependent areas of consolidation, right greater than left with an associated small right-sided effusion. Jerome Brady MD Head CT 07/22/17 1253 Signed Impressions: Service Date/Time: Saturday, July 22, 2017 13:26 - CONCLUSION: No acute disease. Derrick Henry MD Physical Exam GENERAL: Unresponsive on the ventilator. Unable to fully assess. No icterus. Mucosa appears moist. NECK: No swelling. LUNGS: Bilateral basilar rhonchi. HEART: Regular S1 and S2. No audible murmur. ABDOMEN: Soft. Bowel sounds diminished. EXTREMITIES: No clubbing or cyanosis. SKIN: Wound VAC in place covering most of the lateral chest wall down to the right flank and right hip region. No erythema. NEUROLOGIC: Unable to assess. PSYCH: Unable to assess. Assessment & Plan Remarks Septic shock with multiorgan dysfunction syndrome Sepsis present on admission Necrotizing fasciitis of the abdominal wall ? History of multiple falls likely the precipitant. Acute rhabdomyolysis Acute renal failure: Prerenal, sepsis, rhabdomyolysis Acute metabolic encephalopathy likely sepsis related. Baseline unknown Leukocytosis, patient has positive urine culture. Possible because of elevated white cell count. -Chest x-ray also has infiltrate. Possible pneumonia. ? UTI. Urine culture pending. Gram-negative ron preliminary. Recommendations: Continue Dapto IV (Vanco DELMI 2, clinically still has new areas of erythema and e /o infection outside wound vac margin, acute renal failure) Continue micafungin. Continue piperacillin/tazobactam. Follow cultures Follow CBC Monitor progress Discussed with RN. Jaylan Burt MD August 06, 2017 12:56
[2017-08-06] MEDS: MICAFUNGIN INJ 150 MG in SODIUM CHLORIDE 0.9% INJ 100 ML IV SCH (13:36)
[2017-08-06] MEDS: MULTIVITAMIN-OPHTHALMIC 1 TAB PO SCH (13:37)
[2017-08-06] MEDS: FAMOTIDINE 20 MG TAB PO SCH ×2 (13:37→20:30)
[2017-08-06] MEDS: CHLORHEXIDINE 0.12% (ORAL KIT) 15 ML CUP MT SCH ×2 (13:39→19:26)
[2017-08-06] MEDS: NOREPINEPHRINE 4 MG/D5W 250 ML IV PRN (16:58)
[2017-08-06] MEDS: DAPTOMYCIN IV SCH (19:26)
[2017-08-06] MEDS: SODIUM CHLORIDE 0.9% IV SCH (19:26)
[2017-08-06] MEDS: DEXTROSE 50% IN WATER 50 ML VIAL(D50) IV PUSH PRN (20:57)
[2017-08-07] VITALS (17 sets, daily range): BP systolic 94–124; BP diastolic 54–63; PULSE 56–71; RESP 12–25; TEMP 97.8–98.8; O2SAT 97–100
[2017-08-07] MEDS: FREE WATER G-TUBE SCH ×4 (01:36→17:59)
[2017-08-07] MEDS: PIPERACIL-TAZO 4.5 GM PREMIX 100 ML IV SCH ×4 (01:37→17:57)
[2017-08-07] MEDS: INSULIN NovoLIN REGULAR SUPPLEMENTAL SCALE SQ SCH ×6 (04:00→20:00)
[2017-08-07] MEDS: DILTIAZEM HCL 60 MG TAB PO SCH ×4 (04:41→17:58)
[2017-08-07] MEDS: MIDAZOLAM 50 MG/50 ML INJ 50 ML IV PRN ×3 (05:37→20:42)
[2017-08-07] MEDS: FAMOTIDINE 20 MG TAB PO SCH ×2 (08:44→20:20)
[2017-08-07] MEDS: DOCUSATE SODIUM 50 MG/SENNA 8.6 MG TAB PO SCH ×2 (08:44→21:00)
[2017-08-07] MEDS: CALCIUM/VITAMIN D 250 MG/125 U TAB PO SCH (08:44)
[2017-08-07] MEDS: MULTIVITAMIN-OPHTHALMIC 1 TAB PO SCH (08:44)
[2017-08-07] MEDS: SODIUM CHLORIDE 0.9% FLUSH 10 ML FLUSH IV FLUSH SCH ×2 (08:45→20:21)
[2017-08-07] MEDS: MICAFUNGIN INJ 150 MG in SODIUM CHLORIDE 0.9% INJ 100 ML IV SCH (08:46)
[2017-08-07] MEDS: CHLORHEXIDINE 0.12% (ORAL KIT) 15 ML CUP MT SCH ×2 (08:51→20:00)
[2017-08-07] MEDS: BUDESONIDE 9 MG PO SCH (09:00)
--- NOTE | 2017-08-07 10:19 | HHI.CCPN ---
Subjective Remarks/Hospital Course This is a 62-year-old female with a history of developmental delay and recurrent urinary tract infections who presents with new onset right-sided abdominal and flank pain. Per the [facility] admission note this is been going on for approximately 4 weeks. Patient has a history of developmental delay and is difficult to get a complete history from her, no analysis with her on my evaluation. On my evaluation she endorses flank pain radiating around to her chest. She endorses subjective chills. Denies recent fevers to me. Also endorses nausea, vomiting. In the emergency department she was found to have significant erythema, rubor, dolor, and edema from approximately the fifth intercostal space down to the eighth or ninth intercostal space wrapping around from the midline in the back all the way around to just medial to the breast. CT scan of the abdomen and pelvis confirms significant subcutaneous edema, but this area of edema appears to be contained by intact fascial planes, particularly in the midline of the back. Laboratory evidence is significant for a white blood cell count of 27k, creatinine is 3.58, potassium 5.4, bicarb of 17.9, anion gap elevated at 15, BUN of 64, an initial lactate of 5.1. In the emergency department she received 3 L of crystalloid IV fluids. Despite this she is hypotensive with a mean arterial pressure of 51. Critical care medicine is consulted to evaluate manage her presumed septic shock secondary to severe cellulitis of the trunk. I have given her an additional liter of crystalloid and then placed central venous access, see separate procedure note for details. In addition her lactate is starting to clear and is now 2.9 with an more currently pending, however it is not clearing fast enough and she remains oliguric. I placed a Terrazas for accurate hourly I's and O's. The remainder of the review systems for the patient is negative except documented in the HPI, although this is severely limited by her baseline developmental delay. Subjective 07/23: Patient remains on vasopressors, noted metabolic acidosis, bicarbonate level of 15. Sodium bicarbonate infusion initiated. 07/24 Patient was intubated early this morning now on Vasopressin and Neosyn 300 mics in addition patient is on Amio and Bicarb drips. WBC increased 31. CT abd/pelvis showed right sided cellulites and developing myositis. 07/25 Patient went to OR yesterday s/p wide excisional debridement of soft tissue infection with VAC placement for necrotizing soft tissue infection of abdomen, right hip area right torso area measuring approximately 32 x 18 inches x 2 inches deep. She remains on Vasopressin 0.04 and Neosyn down to 120 mics. On Amio drip. 07/26 No events overnight. Off all pressors, WBC is trending down. On Amio drip. 07/27 Patient remains intubated for return to OR today and wound vac exchange. 07/28 Patient s/p excisional debridement with vac change yesterday intubated and sedated with Fentanyl infusion. 07/29 Patient remains intubated and sedated with Fentanyl and Versed drips. Afebrile. 07/30 No events overnight. Patient remains sedated with Fentanyl drip and intubated. For OR today for further debridement and wound vac exchange. Afebrile. 07/31 Patient went to OR yesterday for vac exchange, Afebrile, WBC is trending down, Intubated and now sedated with Fentanyl and Versed 2mg/hr 08/01: Remains sedated, orally intubated on mechanical ventilation. Scheduled for OR today for vac exchange. 08/02: Remains intubated scheduled for OR again today. Antibiotics per ID. Slight increase in WBC count is 17.2 08/03: s/p Excisional debridement with VAC change yesterday by Dr. Dumont. Tolerating CPAP but not waking up or following commands. Dr. Dumont plans for further wound debridement and VAC change either tomorrow or Monday. Anticipating OR will leave patient intubated. WBC 19.9 today, will discuss with ID 08/04: Remains intubated, intermittently agitated on the vent. Or planned for tomorrow by Dr. Dumont. WBC count is slightly improved today 16.7 08/05: Patient is more critical today with worsening sepsis. T-max 102, WBC count up to 22.6. Hypotensive blood pressure 78/51. I have ordered 1 L normal saline bolus. Pancultured overnight. Zosyn started by Dr. Mcdonald. I will start micafungin also. Will inform ID. Dr. Dumont planning for OR today 08/06: Evaluated by night haz tech for persistent worsening hypotension called to bedside to evaluate patient with worsening hypotension. Given 500 cc 5 % albumin 1 without improvement in hypotension. A right subclavian central line was placed and norepinephrine infusion was started for persistent septic shock. Currently map remains above 65, on Levophed at 4 mcg/min. WBC 16.1 slightly improved from yesterday. Hemoglobin has dropped to 7.2 approximately 2 g drop. Transfuse 1 unit of PRBC stat. T-max 100.7, urine culture growing GNR 08/07: Remains sedated, orally intubated on mechanical ventilation. Wound VAC in place. On Levophed 2 mics per minute for hypotension. Objective Vital Signs Date Time Temp Pulse Resp B/P (MAP) Pulse Ox O2 Delivery O2 Flow Rate FiO2 08/07/17 08:26 99 35 08/07/17 06:00 71 08/07/17 04:00 98.8 12 124/60 (81) 08/04/17 21:30 Ventilator Intake and Output 08/07/17 08/07/17 08/08/17 08:00 16:00 00:00 Intake Total 200 ml Output Total 1300 ml Balance -1100 ml Result Diagram: 08/06/17 0350 08/06/17 0350 Other Results Microbiology Date/Time Source Procedure Growth Status 08/04/17 22:08 Urine Catheterized Urine Urine Culture - Final Klebsiella Pneumoniae Pseudomonas Aeruginosa Complete Imaging Last Impressions Chest X-Ray 07/30/17 0000 Signed Impressions: Service Date/Time: Sunday, July 30, 2017 08:14 - CONCLUSION: Underinflation with atelectasis at the lung bases. Otherwise, no acute finding is seen given the technique. Derrick García MD Brain MRI 07/28/17 0000 Signed Impressions: Service Date/Time: Friday, July 28, 2017 14:38 - CONCLUSION: 1. Unremarkable MRI examination the brain. 2. No acute abnormality or interval change. Bob Daly MD Chest CT 07/24/17 0000 Signed Impressions: Service Date/Time: Monday, July 24, 2017 05:36 - CONCLUSION: 1. Stranding in the subcutaneous tissues about the right flank with fluid adjacent to the latissimus dorsi. Stranding extends up into the right breast. Findings could represent developing cellulitis. 2. In addition, there is now a small right-sided effusion with bilateral dependent atelectatic changes. Jerome Brady MD Abdomen/Pelvis CT 07/24/17 0000 Signed Impressions: Service Date/Time: Monday, July 24, 2017 05:36 - CONCLUSION: 1. CT findings concerning for a right sided cellulitis and developing myositis. There is some asymmetric prominence of the latissimus dorsi muscle on the right. Unorganized fluid in the deep subcutaneous tissues adjacent to the muscle belly. No drainable fluid collection, however. 2. Developing dependent areas of consolidation, right greater than left with an associated small right-sided effusion. Jerome Brady MD Head CT 07/22/17 1253 Signed Impressions: Service Date/Time: Saturday, July 22, 2017 13:26 - CONCLUSION: No acute disease. Derrick Henry MD Objective Remarks GENERAL: Elderly female, lying in bed intubated. Sedated with Versed and fentanyl HEENT: Normocephalic. Atraumatic. Pupils equal, round, reactive, conjugate. Orotracheally intubated NECK: Trachea is midline. There is no JVD. CHEST: Equal chest rise. On PRVC CARDIOVASCULAR: RRR, nl S1, S2 ABDOMEN: Soft, nontender, nondistended, +BS, wound Vac in place on the right flank covering extensive areas of debridement. MUSCULOSKELETAL: No peripheral edema. Gangrene of 2-4 toes on right NEUROLOGICAL: Intubated, sedated. Moving all extremities spontaneously, withdraws to pain. Does not follow commands on sedation hold Date of Insertion: Jul 22, 2017 Date of Insertion: August 06, 2017 Line: Central Venous Catheter A/P Assessment and Plan Active problems: Acute respiratory failure Septic shock Right flank necrotizing fasciitis Pneumonia (HCAP) Acute metabolic encephalopathy Anemia requiring transfusion Acute kidney injury Elevated CK Anemia Thrombocytopenia Hypothyroidism Plan: Neurologic: Neuro checks per ICU protocol. Fentanyl, Versed infusion for sedation and vent synchrony. Daily sedation vacation, once hemodynamically more stable 07/22 CT brain: No acute disease. MRI brain 07/28 Unremarkable Tylenol 650 mg every 6 hours as needed for pain and/or temperature greater than 100.5 Respiratory: Continue with vent support keep sats >92% On PRVC. Daily SBT, however mental status and ongoing sepsis will not permit extubation. Needs tracheostomy. Bronchodilators, ICU vent bundle. CXR 07/30: Atelectasis at lung bases Cardiovascular: Monitor HR and BP keep MAP>65mmHg. Currently on Levophed to keep map above 65 Tapering steroids- HC 25mg IV Q12 DCd 08/04. Restart due to persistent septic shock, if Levophed requirement increasing Status post fluid and albumin resuscitation Echo showed EF 50-55% Renal: Monitor renal function, I/O's, Avoid nephrotoxins Renal is following- . On Free water 300ml Q6, monitor sodium level. Diuril 250mg IV daily per renal on hold FEN/GI: On Pepcid 10mg BID for GI prophylaxis Tube feeds- Glucerna 1.5 with goal rate 45ml/hr ID: New onset sepsis with fever 102, WBC count 22.6, 08/05. Urine cx with GNR Continue with abx (Daptomycin) ID is following. Zosyn and micafungin added 08/05, 07/27 Wound cx :MRSA 07/24 BC :NGTD 07/23: urine cx: No growth 07/22 BC: NGTD 08/04 UC: GNR Path report: Abdominal soft tissue excision: Skin and subcutaneous adipose tissue with acute cellulitis and multifocal abscess formation 07/30 Wound vac exchange 07/27 s/p excisional debridement with vac change of torso and abdomen 07/24 s/p wide excisional debridement of soft tissue infection with VAC placement for necrotizing soft tissue infection of abdomen, right hip area right torso area measuring approximately 32 x 18 inches x 2 inches deep. Surgery -Dr. Dumont. s/p debridement and wound VAC change 08/05/[address] Dumont Heme: Monitor CBC, transfuse PRBC as needed Approximately 2 g hemoglobin drop, hemoglobin is 7.2 today Transfuse 1 unit PRBC Endocrine: Levothyroxine 112 mcg/day on hold. TSH:0.08 on 07/24 Glucose monitoring per ICU protocol. -- Continue SSI medium scale for glycemic control MSK: Dry gangrene setting in of toes on right- Likely pressors induced ischemia of toes. Seen by vascular surg- no additional vascular work up needed given palpable pulses, Prophylaxis: GI Prophylaxis Famotidine DVT Prophylaxis SCDs. Chemical DVT prophylaxis when cleared by Dr. Dumont-susanne due to anemia requiring transfusion Lines: Central line placed on 07/22 DCd 08/05/17. Peripheral IVs 2, New right subclavian central line placed 08/06/17 CCT 35 MIN excluding procedures Artis De La Torre MD August 07, 2017 10:19
--- NOTE | 2017-08-07 10:57 | HHI.HCPN ---
Reason for visit a. To assist with evaluation and management of symptoms including: pain, dyspnea. b. To assist medical decision maker(s) with: better understanding of current medical conditions; weighing benefits/burdens of medical treatment options; making medical treatment decisions. . Subjective/Interval History No significant change. Underwent another debridement / wound-vac change on 08/05/17; she had more profound sepsis and hypotension later that night and she remains on Levophed at a rate of 2 to maintain blood pressure. I saw the patient with Dr. Fatou De La Torre, who notes that the size/margins of the affected/necrotic area has progressed somewhat over the past 5 days. Remains sedated , mechanically ventilated, and she remains on fentanyl at 250 and Versed at 7. No plan to try and wean at this time, and the possibility of trach is now entertained. Tmax 99.5 in the past 24 hours. White count 16.1 . Family/friend interactions Telephone conversation with the patient's POA/healthcare proxy Mr. Nagy at [phone] ; I explained to him that her infection is quite severe, she continues to have sepsis symptoms and continues to seem to be more debilitated/malnourished. We discussed the possibility of tracheostomy if the goals remain aggressive, and he DOES want to proceed with that when it is necessary. He feels that the patient would want to "continue fighting." At the same time, he does understand that there is a significant chance that she will not survive this. . Advance Directives Durable Power of [employer]: Copy in medical record Advance Directive Specifics Date completed: An incomplete (only pages 2 and 3 of a 3 page document were avialable) and it did not specify health care decision making. . Health Care Surrogate(s): Mr. Felipe Nagy was given POA but the POA document did not specify health care decision making. . Documented care wishes: There is no written documentation of health care goals/preferences. . Objective Vital Signs Date Time Temp Pulse Resp B/P (MAP) Pulse Ox O2 Delivery O2 Flow Rate FiO2 08/07/17 08:26 99 35 08/07/17 06:00 71 08/07/17 04:00 35 08/07/17 04:00 68 08/07/17 04:00 98.8 68 12 124/60 (81) 100 08/07/17 03:50 100 35 08/07/17 02:00 64 5/14/18 00:17 100 35 08/07/17 00:00 97.8 71 14 119/59 (79) 100 08/07/17 00:00 71 08/07/17 00:00 35 08/06/17 22:00 69 08/06/17 20:33 100 35 08/06/17 20:31 73 87/51 08/06/17 20:00 67 08/06/17 20:00 35 08/06/17 20:00 99.0 67 18 131/83 (99) 100 08/06/17 18:00 70 08/06/17 16:58 82 126/72 08/06/17 16:12 97 35 08/06/17 16:00 35 08/06/17 16:00 99.5 70 19 100/59 (73) 97 08/06/17 16:00 74 08/06/17 14:00 73 08/06/17 13:47 99.0 79 12 104/59 92 08/06/17 13:30 99.3 82 14 108/60 95 08/06/17 12:42 99 35 08/06/17 12:00 99.0 76 17 100/57 (71) 97 08/06/17 12:00 35 08/06/17 12:00 76 Intake & Output 08/07/17 08/07/17 07:00 19:00 Intake Total 610 ml Output Total 1300 ml Balance -690 ml IV Total 200 ml Packed Cells 400 ml Blood Product IV Normal Saline Flush 10 ml Output Urine Total 1150 ml Drainage Total 150 ml # Bowel Movements 2 Physical Exam CONSTITUTIONAL/GENERAL: This is an adequately nourished patient, sedated, intubated, mechanically ventilated in the MICU. Does not open her eyes for me and is not able to follow commands. TUBES/LINES/DRAINS: Wound vac, left subclavian central line; Peripheral IV; ET tube, scales. SKIN: Large right sided wound s/p debridment with wound vac from right thigh all the way up torso to below axillary area, and around the back nearly to the midline in the mid thoracic area. EYES: Pupil equal,round. No scleral icterus. ENT: . Nose without bleeding or purulent drainage. ET tube in place. Dried blood on lips. CARDIOVASCULAR: Regular rate and rhythm without murmurs, gallops, or rubs. No JVD. RESPIRATORY/CHEST: Symmetric, unlabored respirations. Some scattered rhonchi are present bilateral. Breath sounds equal bilaterally. GASTROINTESTINAL: Abdomen soft, nondistended. No hepato-splenomegaly, or palpable masses. No guarding. Bowel sounds present. GENITOURINARY: Without palpable bladder distension. Scales catheter in place. MUSCULOSKELETAL: Extremities without clubbing, edema. Right foot toes are all ischemic with necrotic tips except for the great toe. NEUROLOGICAL: Intubated and sedated. Does not awaken to voice or exam. PSYCHIATRIC: Unable to examine . . Diagnostic Tests Laboratory Laboratory Tests Test 08/04/17 22:08 08/05/17 06:29 08/06/17 03:50 Urine Color YELLOW (YELLW/STRAW) Urine Turbidity CLOUDY (CLEAR) Urine pH 6.0 (5.0-8.5) Urine Specific B[place] 1.017 (1.002-1.035) Urine Protein 30 mg/dL (NEG-TRACE) Urine Glucose (UA) NEG mg/dL (NEG) Urine Ketones NEG mg/dL (NEG) Urine Occult Blood MOD (NEG) Urine Nitrite NEG (NEG) Urine Bilirubin NEG (NEG) Urine Urobilinogen LESS THAN 2.0 MG/DL (LESS Urine Leukocyte Esterase LARGE (NEG) Urine RBC 121 /hpf (0-3) Urine WBC /hpf (0-5) Urine WBC Clumps MANY (NONE) Urine Squamous Epithelial Cells 2 /hpf (0-5) Urine Bacteria MANY /hpf (NONE) Urine Mucus FEW /lpf (OCC) Urine Yeast with Hyphae FEW (NONE) Urine Yeast (Budding) MANY (NONE) Microscopic Urinalysis Comment CATH-CULTURE IND White Blood Count 22.6 TH/MM3 (4.0-11.0) 16.1 TH/MM3 (4.0-11.0) Red Blood Count 3.35 MIL/MM3 (4.00-5.30) 2.64 MIL/MM3 (4.00-5.30) Hemoglobin 9.0 GM/DL (11.6-15.3) 7.2 GM/DL (11.6-15.3) Hematocrit 28.5 % (35.0-46.0) 22.3 % (35.0-46.0) Mean Corpuscular Volume 85.0 FL (80.0-100.0) 84.4 FL (80.0-100.0) Mean Corpuscular Hemoglobin 26.8 PG (27.0-34.0) 27.3 PG (27.0-34.0) Mean Corpuscular Hemoglobin Concent 31.5 % (32.0-36.0) 32.3 % (32.0-36.0) Red Cell Distribution Width 15.8 % (11.6-17.2) 15.9 % (11.6-17.2) Platelet Count 454 TH/MM3 (150-450) 419 TH/MM3 (150-450) Mean Platelet Volume 7.4 FL (7.0-11.0) 6.8 FL (7.0-11.0) Neutrophils (%) (Auto) 83.4 % (16.0-70.0) 74.8 % (16.0-70.0) Lymphocytes (%) (Auto) 9.2 % (9.0-44.0) 13.9 % (9.0-44.0) Monocytes (%) (Auto) 6.1 % (0.0-8.0) 8.3 % (0.0-8.0) Eosinophils (%) (Auto) 0.7 % (0.0-4.0) 1.8 % (0.0-4.0) Basophils (%) (Auto) 0.6 % (0.0-2.0) 1.2 % (0.0-2.0) Neutrophils # (Auto) 18.9 TH/MM3 (1.8-7.7) 12.1 TH/MM3 (1.8-7.7) Lymphocytes # (Auto) 2.1 TH/MM3 (1.0-4.8) 2.2 TH/MM3 (1.0-4.8) Monocytes # (Auto) 1.4 TH/MM3 (0-0.9) 1.3 TH/MM3 (0-0.9) Eosinophils # (Auto) 0.2 TH/MM3 (0-0.4) 0.3 TH/MM3 (0-0.4) Basophils # (Auto) 0.1 TH/MM3 (0-0.2) 0.2 TH/MM3 (0-0.2) CBC Comment DIFF FINAL DIFF FINAL Differential Comment Blood Urea Nitrogen 15 MG/DL (7-18) 13 MG/DL (7-18) Creatinine 0.77 MG/DL (0.50-1.00) 0.77 MG/DL (0.50-1.00) Random Glucose 75 MG/DL (74-106) 88 MG/DL (74-106) Total Protein 4.9 GM/DL (6.4-8.2) Albumin 1.5 GM/DL (3.4-5.0) Calcium Level 8.6 MG/DL (8.5-10.1) 8.8 MG/DL (8.5-10.1) Alkaline Phosphatase 65 U/L (45-117) Aspartate Amino Transf (AST/SGOT) 27 U/L (15-37) Alanine Aminotransferase (ALT/SGPT) 24 U/L (10-53) Total Bilirubin 0.5 MG/DL (0.2-1.0) Sodium Level 141 MEQ/L (136-145) 142 MEQ/L (136-145) Potassium Level 4.2 MEQ/L (3.5-5.1) 3.8 MEQ/L (3.5-5.1) Chloride Level 104 MEQ/L (98-107) 106 MEQ/L (98-107) Carbon Dioxide Level 30.5 MEQ/L (21.0-32.0) 27.9 MEQ/L (21.0-32.0) Anion Gap 7 MEQ/L (5-15) 8 MEQ/L (5-15) Estimat Glomerular Filtration Rate 76 ML/MIN (>89) 76 ML/MIN (>89) Total Creatine Kinase 106 U/L (26-192) Result Diagram: 08/06/17 0350 08/06/17 0350 Microbiology Microbiology Date/Time Source Procedure Growth Status 08/06/17 00:43 Blood Peripheral Aerobic Blood Culture Pending Resulted 08/06/17 00:43 Blood Peripheral Anaerobic Blood Culture - Final QNS - SEE AEROBE REPORT Resulted 08/04/17 23:42 Blood Peripheral Aerobic Blood Culture - Preliminary NO GROWTH IN 1 DAY Resulted 08/04/17 23:42 Blood Peripheral Anaerobic Blood Culture - Preliminary NO GROWTH IN 1 DAY Resulted 08/04/17 22:02 Blood Line Aerobic Blood Culture - Preliminary NO GROWTH IN 2 DAYS Resulted 08/04/17 22:02 Blood Line Anaerobic Blood Culture - Preliminary NO GROWTH IN 2 DAYS Resulted 08/05/17 05:40 Sputum Endotracheal Gram Stain - Final Resulted 08/05/17 05:40 Sputum Culture - Preliminary Pseudomonas Species Gram Negative Ron Resulted 08/04/17 22:08 Urine Catheterized Urine Urine Culture - Final Klebsiella Pneumoniae Pseudomonas Aeruginosa Complete Imaging Last Impressions Chest X-Ray 08/06/17 0000 Signed Impressions: Service Date/Time: Sunday, August 06, 2017 01:31 - CONCLUSION: 1. Interval placement of right subclavian central venous line crosses midline with the tip in the left subclavian vein. There is no pneumothorax. 2. Hazy opacity remains in the left lung. 3. Nasogastric tube has been advanced further into the stomach. Kvng Nuñez MD Brain MRI 07/28/17 0000 Signed Impressions: Service Date/Time: Friday, July 28, 2017 14:38 - CONCLUSION: 1. Unremarkable MRI examination the brain. 2. No acute abnormality or interval change. Bob Daly MD Chest CT 07/24/17 0000 Signed Impressions: Service Date/Time: Monday, July 24, 2017 05:36 - CONCLUSION: 1. Stranding in the subcutaneous tissues about the right flank with fluid adjacent to the latissimus dorsi. Stranding extends up into the right breast. Findings could represent developing cellulitis. 2. In addition, there is now a small right-sided effusion with bilateral dependent atelectatic changes. Jerome Brady MD Abdomen/Pelvis CT 07/24/17 0000 Signed Impressions: Service Date/Time: Monday, July 24, 2017 05:36 - CONCLUSION: 1. CT findings concerning for a right sided cellulitis and developing myositis. There is some asymmetric prominence of the latissimus dorsi muscle on the right. Unorganized fluid in the deep subcutaneous tissues adjacent to the muscle belly. No drainable fluid collection, however. 2. Developing dependent areas of consolidation, right greater than left with an associated small right-sided effusion. Jerome Brady MD Head CT 07/22/17 1253 Signed Impressions: Service Date/Time: Saturday, July 22, 2017 13:26 - CONCLUSION: No acute disease. Derrick Henry MD Procedures INTUBATION Debridement/wound VAC Second debridement/wound VAC 08/05/17 . Assessment and Plan Disease Oriented Problem List: (1) Severe sepsis (2) Abdominal wall cellulitis Comment: required debridement of necrotizing tissue. (3) Acute kidney injury Comment: Improved (4) DM (diabetes mellitus) Symptom Scale: (1) Dyspnea 0-10 Scale: Unable to quantify (2) Pain 0-10 Scale: Unable to quantify Comment: No known pre-hospitalization pain syndromes. Current sources of pain probably include large wound; prolonged bedbound status; scales cathter; vascular access lines; restraints; ET tube. . Pertinent Non-Medical Issues Psychosocial:developmental delay, Spiritual: Has not belong to any particular gemma group. Per her partner, she has been recently interested in evangelical oriented audio cassettes Legal: Mr. Nagy brought in part of a POA document signed by the patient; he is the current healthcare proxy since no family could be found Ethical issues impacting care: Patient is incapacitated. . Important Contacts Felipe Nagy reported POA. [phone] . Prognosis 62 year old female with severe sepsis, due to large right sided necrotizing wound + for MRSA. Remains critically ill and has had recurrent hypotension/ sepsis, and she is progressively more debilitated and malnourished. Prognosis is guarded. Her large, complicated wound may require weeks more of hospitalization . Pt's developmental delays may hinder pt's ability to convalesce. . . Code Status: Full Code Plan == Code Status : Full Code == Decision Making: Patient is incapacitated to make her own health care decisions with no reasonable hope of recovering capacity. Mr. Nagy had self identified as her "guardian" and "power of attorney general." There is only POA paperwork; Mr. Nagy has been a "close personal friend" regularly attending all of her outpatient physician appointments with the patient. Until such time as other family members present themselves or we are given contact information for other surviving family members, Mr. Nagy will remain the legal proxy for health care decisions. ==Goals of medical treatment: Patient never completed an advance directive nor had conversations regarding what she would want or not want if she were to become critically ill like this. Mr. Nagy feels the patient would certainly want to continue fighting at this time. Goals at this time continue to be aggressive. 08/07/17: Telephone conversation with the patient's POA/healthcare proxy Mr. Nagy at 1035; I explained to him that her infection is quite severe, she continues to have sepsis symptoms and continues to seem to be more debilitated/ malnourished. We discussed the possibility of tracheostomy if the goals remain aggressive, and he DOES want to proceed with that when it is necessary. He feels that the patient would want to "continue fighting." At the same time, he does understand that there is a significant chance that she will not survive this. == Symptoms (see symptoms above) * dyspnea: managed with mechanical ventilation * pain- Multiple sources of discomfort including -- , extensive right sided wound; repeated debridements and wound vac changes; prolonged bedbound status ; etc. Currently being managed with fentanyl drip with adequate results. * Intermittent Agitation -remains on Versed infusion now == Plan * Mr. Nagy has thus far been unable to find any information regarding the possibility of any patient's surviving relatives. * In the meantime, Mr. Nagy will continue to function as the health care proxy as he has demonstrated concern and interest over the years and has appeared to be advocating for her appropriately.... and we have access to no alternatives. == Palliative car will continue to follow to assist with symptom management and to further clarify goals of medical treatment as the clinical course evolves. . Time Spent Total Floor Time (mins): 41 Face to Face Time (mins): 22 >50% Counseling/Coord of Care: Yes Attestation To help prompt me to consider important information that might be impacting today's encounter and assessment, information from prior notes written by myself or my colleagues may have been "brought forward" into today's note. My signature on this note, however, is an attestation that I personally performed the exam, history, and/or decision-making noted today, and, unless otherwise indicated, the interactions with patient, family, and staff as well as the review of records all occurred today. I also attest that the listed assessment and stated plan reflect my best clinical judgment today based on the combination of historical information, prior notes, and today's exam/ interactions. When time spent is documented, it refers only to time spent today by the signer, or if indicated, combined time spent today by collaborating physician/nurse practitioner. Eva Hopkins MD August 07, 2017 10:57
--- NOTE | 2017-08-07 11:02 | HHI.IDPN ---
Subjective Subjective Remarks Most of the history was obtained by review of medical records. Patient shortly being wheeled out to the operating room for surgical exploration of the site of necrotizing fasciitis Septic shock. Ms. Eldridge is a 62-year-old female who reportedly has developmental delays per chart review. Patient presented to the emergency department via EMS for evaluation of right-sided abdominal, flank and back erythema swelling and pain. Patient's care provider and power of attorney law clerk listed on the chart is Mr. Felipe Nagy who can be contacted at [phone]. Patient had earlier reported to others that she was feeling unwell for the past 4 weeks. Patient reported increase in her migraine symptoms. Patient also reported continuous, nonradiating sharps times burning pain over the right upper quadrant that is expanded to include her right flank and back. She denies any trauma to these areas. Patient reported to others prior to being intubated that she had nausea and vomiting associated with decreased appetite. Patient also had reported to others that she was dizzy and lightheaded. Per review of records it appears that patient has had multiple falls as well as has had urinary incontinence at baseline with decreased urine output over the last few days. Patient also reported subjective symptoms such as burning with urination. Per EMS, patient was found to be hypotensive. Systolic pressure was recorded in the 70s. She received fluid in transit with minimal improvement. In the emergency department she was found to have significant erythema,pain and edema from approximately the fifth intercostal space down to the eighth or ninth intercostal space wrapping around from the midline in the back all the way around to just medial to the breast. CT scan of the abdomen and pelvis confirms significant subcutaneous edema, but this area of edema appears to be contained by intact fascial planes, particularly in the midline of the back. Laboratory evidence is significant for a white blood cell count of 27k, creatinine is 3.58, potassium 5.4, bicarb of 17.9, anion gap elevated at 15, BUN of 64, an initial lactate of 5.1. In the emergency department she received 3 L of crystalloid IV fluids. Critical care medicine is consulted to evaluate manage her presumed septic shock secondary to severe cellulitis of the trunk. Overnight critical care medicine was consulted for worsening sepsis and septic shock. Patient had to be intubated and upon evaluation was found to have evidence suggestive of necrotizing fasciitis involving similar areas as reported on the emergency room but had progressed beyond the line of demarcation. Patient was noted to have significant blisters and blackening of the areas. Critical care medicine change the regimen to Zosyn IV, vancomycin IV and added clindamycin IV and placed a surgical consult. Patient was evaluated by Dr. Thor Dumont of surgery and patient is being wheeled to the operating room shortly. At the time of my evaluation patient is in the ICU currently on high-dose Levophed as well as vasopressin with slight decrease in Levophed requirement after addition of clindamycin IV. Urine output is low. No diarrhea. No diffuse rash or skin changes other than as described. Notes reviewed. dw RN patient became hypotensive over the last few days. Septic shock now on pressors. Levo 2 mics. RN reporting wound vac beeping, Surgery notified. Secretions moderate to large yao colored. Sedated on the vent. Repeat wound C/S MRSA sputum with Kleb, PSAE susceptibility pending. Temps ok No rash Antibiotics Dapto IV Zosyn IV Micafungin IV Lines Line sites with no e.o infection Past Medical History Anxiety Depression Developmental delays - mental handicap Headaches/migraines Hypothyroidism GERD Chest pain Hx of UTIs Renal insufficiency Bladder incontinence Chronic back pain Thyroid surgery EGD - 08/30/16 Cholecystectomy - 03/04/15 D&C Hysterectomy Colonoscopy - 07/30/16 and 08/11/15 Allergies: Coded Allergies: No Known Allergies (Verified Allergy, Unknown, 07/22/17) Objective . Vital Signs Date Time Temp Pulse Resp B/P (MAP) Pulse Ox O2 Delivery O2 Flow Rate FiO2 08/07/17 08:26 99 35 08/07/17 06:00 71 08/07/17 04:00 35 08/07/17 04:00 68 08/07/17 04:00 98.8 68 12 124/60 (81) 100 08/07/17 03:50 100 35 08/07/17 02:00 64 08/07/17 00:17 100 35 08/07/17 00:00 97.8 71 14 119/59 (79) 100 08/07/17 00:00 71 08/07/17 00:00 35 08/06/17 22:00 69 08/06/17 20:33 100 35 08/06/17 20:31 73 87/51 08/06/17 20:00 67 08/06/17 20:00 35 08/06/17 20:00 99.0 67 18 131/83 (99) 100 08/06/17 18:00 70 08/06/17 16:58 82 126/72 08/06/17 16:12 97 35 08/06/17 16:00 35 08/06/17 16:00 99.5 70 19 100/59 (73) 97 08/06/17 16:00 74 08/06/17 14:00 73 08/06/17 13:47 99.0 79 12 104/59 92 08/06/17 13:30 99.3 82 14 108/60 95 08/06/17 12:42 99 35 08/06/17 12:00 99.0 76 17 100/57 (71) 97 08/06/17 12:00 35 08/06/17 12:00 76 . Laboratory Tests Test 08/06/17 03:50 White Blood Count 16.1 TH/MM3 Red Blood Count 2.64 MIL/MM3 Hemoglobin 7.2 GM/DL Hematocrit 22.3 % Mean Corpuscular Volume 84.4 FL Mean Corpuscular Hemoglobin 27.3 PG Mean Corpuscular Hemoglobin Concent 32.3 % Red Cell Distribution Width 15.9 % Platelet Count 419 TH/MM3 Mean Platelet Volume 6.8 FL Neutrophils (%) (Auto) 74.8 % Lymphocytes (%) (Auto) 13.9 % Monocytes (%) (Auto) 8.3 % Eosinophils (%) (Auto) 1.8 % Basophils (%) (Auto) 1.2 % Neutrophils # (Auto) 12.1 TH/MM3 Lymphocytes # (Auto) 2.2 TH/MM3 Monocytes # (Auto) 1.3 TH/MM3 Eosinophils # (Auto) 0.3 TH/MM3 Basophils # (Auto) 0.2 TH/MM3 CBC Comment DIFF FINAL Differential Comment Laboratory Tests Test 08/06/17 03:50 Blood Urea Nitrogen 13 MG/DL Creatinine 0.77 MG/DL Random Glucose 88 MG/DL Calcium Level 8.8 MG/DL Sodium Level 142 MEQ/L Potassium Level 3.8 MEQ/L Chloride Level 106 MEQ/L Carbon Dioxide Level 27.9 MEQ/L Anion Gap 8 MEQ/L Estimat Glomerular Filtration Rate 76 ML/MIN Microbiology Date/Time Source Procedure Growth Status 08/06/17 00:43 Blood Peripheral Aerobic Blood Culture Pending Resulted 08/06/17 00:43 Blood Peripheral Anaerobic Blood Culture - Final QNS - SEE AEROBE REPORT Resulted 08/04/17 23:42 Blood Peripheral Aerobic Blood Culture - Preliminary NO GROWTH IN 1 DAY Resulted 08/04/17 23:42 Blood Peripheral Anaerobic Blood Culture - Preliminary NO GROWTH IN 1 DAY Resulted 08/04/17 22:02 Blood Line Aerobic Blood Culture - Preliminary NO GROWTH IN 2 DAYS Resulted 08/04/17 22:02 Blood Line Anaerobic Blood Culture - Preliminary NO GROWTH IN 2 DAYS Resulted 08/05/17 05:40 Sputum Endotracheal Gram Stain - Final Resulted 08/05/17 05:40 Sputum Culture - Preliminary Pseudomonas Species Gram Negative Ron Resulted 08/04/17 22:08 Urine Catheterized Urine Urine Culture - Final Klebsiella Pneumoniae Pseudomonas Aeruginosa Complete Imaging Chest X-Ray 07/30/17 0000 Signed Impressions: Service Date/Time: Sunday, July 30, 2017 08:14 - CONCLUSION: Underinflation with atelectasis at the lung bases. Otherwise, no acute finding is seen given the technique. Derrick García MD Brain MRI 07/28/17 0000 Signed Impressions: Service Date/Time: Friday, July 28, 2017 14:38 - CONCLUSION: 1. Unremarkable MRI examination the brain. 2. No acute abnormality or interval change. Bob Daly MD Chest CT 07/24/17 0000 Signed Impressions: Service Date/Time: Monday, July 24, 2017 05:36 - CONCLUSION: 1. Stranding in the subcutaneous tissues about the right flank with fluid adjacent to the latissimus dorsi. Stranding extends up into the right breast. Findings could represent developing cellulitis. 2. In addition, there is now a small right-sided effusion with bilateral dependent atelectatic changes. Jerome Brady MD Abdomen/Pelvis CT 07/24/17 0000 Signed Impressions: Service Date/Time: Monday, July 24, 2017 05:36 - CONCLUSION: 1. CT findings concerning for a right sided cellulitis and developing myositis. There is some asymmetric prominence of the latissimus dorsi muscle on the right. Unorganized fluid in the deep subcutaneous tissues adjacent to the muscle belly. No drainable fluid collection, however. 2. Developing dependent areas of consolidation, right greater than left with an associated small right-sided effusion. Jerome Brady MD Head CT 07/22/17 1253 Signed Impressions: Service Date/Time: Saturday, July 22, 2017 13:26 - CONCLUSION: No acute disease. Derrick Henry MD Physical Exam GENERAL: Sedated on the vent, NAD. On CPAP SKIN: No generalized rash. Dry, cool extremities HEAD: Atraumatic. Normocephalic. No temporal or scalp tenderness. EYES: Pupils equal round and reactive. Extraocular motions intact. No scleral icterus. No injection or drainage. ENT: Intubated. Moist mucosa NECK: Trachea midline. Supple, nontender, no meningeal signs. CARDIOVASCULAR: Heart sounds audible. No murmur appreciated. RESPIRATORY: Clear to auscultation. Breath sounds equal bilaterally. No wheezes , rales, or rhonchi. GASTROINTESTINAL: Abdomen soft. Wound vac area noted. Extensive area covered with wound vac sponge, output serosanguineous. Area appears extended since last seen upto midline on the back. MUSCULOSKELETAL: Extremities without clubbing, cyanosis. Some pedal edema. Ischemic toes R foot 2-4 toes and tip of 5th toe, no change. Cool feet NEUROLOGICAL: Sedated. Psych could not be assessed IV line sites with no e.o infection Assessment & Plan Remarks Septic shock with multiorgan dysfunction syndrome Sepsis present on admission Necrotizing fasciitis of the abdominal wall ? History of multiple falls likely the precipitant. Acute rhabdomyolysis Acute renal failure: Prerenal, sepsis, rhabdomyolysis Acute metabolic encephalopathy likely sepsis related. Baseline unknown Leukocytosis, lower today - nothing new on C/S; last OR C/S MRSA - could be reactive from last OR Recommendations: Continue Dapto IV (Vanco DELMI 2, clinically still has new areas of erythema and e /o infection outside wound vac margin, acute renal failure) continue Zosyn IV Continue Micafungin IV pending finalization of cultures. Start Clindamycin IV Follow cultures to adjust antibiotics. Follow clinically. neva ROGERS MD Critically Ill. Prognosis poor overall given worsening of infection. PEG placement may be a challenge as the wound area appears progressed last few days. neva Palliative care . Ellen De La Torre MD August 07, 2017 11:02
[2017-08-07] MEDS: CLINDAMYCIN 900 MG/NS PREMIX 50 ML IV SCH ×2 (12:12→20:21)
[2017-08-07] MEDS: fentaNYL DRIP 250 ML IV PRN ×2 (12:14→22:53)
[2017-08-07] MEDS: DEXTROSE 50% IN WATER 50 ML VIAL(D50) IV PUSH PRN (12:24)
--- NOTE | 2017-08-07 14:53 | HHI.PR ---
Subjective Subjective Notes Intubated Wound Vac malfunctioning Objective Vitals/I&O Vital Signs Date Time Temp Pulse Resp B/P (MAP) Pulse Ox O2 Delivery O2 Flow Rate FiO2 08/07/17 11:54 99 35 08/07/17 06:00 71 08/07/17 04:00 98.8 12 124/60 (81) 08/04/17 21:30 Ventilator Labs Date/Time Source Procedure Growth Status 08/06/17 00:43 Blood Peripheral Aerobic Blood Culture - Preliminary NO GROWTH IN 1 DAY Resulted 08/06/17 00:43 Blood Peripheral Anaerobic Blood Culture - Final QNS - SEE AEROBE REPORT Resulted 08/05/17 05:40 Sputum Endotracheal Gram Stain - Final Resulted 08/05/17 05:40 Sputum Culture - Preliminary Pseudomonas Aeruginosa Gram Negative Ron Resulted 08/04/17 22:08 Urine Catheterized Urine Urine Culture - Final Klebsiella Pneumoniae Pseudomonas Aeruginosa Complete 07/27/17 15:30 Wound Other Fungal Smear - Final NO FUNGAL ELEMENTS SEEN. Resulted 07/27/17 15:30 Wound Other Fungal Culture - Preliminary NO GROWTH IN 1 WEEK Resulted Cardiovascular: Regular Lungs: Clear Abdomen: Other (large wound vac over RIGHT abdomen/flank back ) Narrative Exam necrotic appearing toes of RIGHT foot A/P Assessment and Plan 62 year old female with extensive soft tissue infection -s/p I&D of wound; wound vac placement -Will need to plan for trach placement -Continue TF -Obtain consents -Will need evaluation by Plastic Surgery likely this week Attending Statement patient seen at bedside will plan for trach and vac change soon Attestation The exam, history, and the medical decision-making described in the above note were completed with the assistance of the mid-level provider. I reviewed and agree with the findings presented. I attest that I had a [id number] encounter with the patient on the same day, and personally performed and documented my assessment and findings in the medical record. Batool Meneses SENIOR GAMEMASTER/Cafeteria Table Attendant SENIOR GAMEMASTER August 07, 2017 14:53 Tip Dumont MD August 14, 2017 04:36
[2017-08-07] MEDS: SODIUM CHLORIDE 0.9% IV SCH (17:58)
[2017-08-07] MEDS: DAPTOMYCIN IV SCH (17:58)
[2017-08-08] VITALS (54 sets, daily range): BP systolic 62–133; BP diastolic 39–68; PULSE 53–80; RESP 13–49; TEMP 97.9–98.7; O2SAT 95–100
[2017-08-08] MEDS: NOREPINEPHRINE 4 MG/D5W 250 ML IV PRN (01:32)
[2017-08-08] MEDS: MIDAZOLAM 50 MG/50 ML INJ 50 ML IV PRN ×2 (01:43→20:23)
[2017-08-08] MEDS: INSULIN NovoLIN REGULAR SUPPLEMENTAL SCALE SQ SCH ×6 (04:00→20:00)
[2017-08-08] MEDS: CLINDAMYCIN 900 MG/NS PREMIX 50 ML IV SCH ×3 (04:25→20:00)
[2017-08-08 05:08] LABS: AUTOMATED NEUTROPHIL # 11.8 TH/MM3 (1.8-7.7); BASOPHIL # 0.2 TH/MM3 (0-0.2); BASOPHIL % 1.2 % (0.0-2.0); EOSINOPHIL # 0.3 TH/MM3 (0-0.4); HEMATOCRIT 29.1 % (35.0-46.0); HEMOGLOBIN 9.5 GM/DL (11.6-15.3); LYMPH % 13.3 % (9.0-44.0); MEAN CELL VOLUME 82.8 FL (80.0-100.0); MEAN CORPUSCULAR HEMOGLOBIN 26.9 PG (27.0-34.0); MEAN CORPUSCULAR HGB CONC 32.5 % (32.0-36.0); MONO % 4.8 % (0.0-8.0); MONOCYTE # 0.7 TH/MM3 (0-0.9); NEUT % 78.7 % (16.0-70.0); PLATELET COUNT 459 TH/MM3 (150-450); RED BLOOD COUNT 3.52 MIL/MM3 (4.00-5.30); RED CELL DISTRIBUTION WIDTH 15.7 % (11.6-17.2)
[2017-08-08] MEDS: DILTIAZEM HCL 60 MG TAB PO SCH ×5 (05:50→17:57)
[2017-08-08] MEDS: PIPERACIL-TAZO 4.5 GM PREMIX 100 ML IV SCH ×4 (05:50→18:02)
[2017-08-08] MEDS: FREE WATER G-TUBE SCH ×4 (05:50→17:57)
[2017-08-08 06:00] LABS: ALBUMIN 1.4 GM/DL (3.4-5.0); BICARBONATE 23.7 MEQ/L (21.0-32.0); BLOOD UREA NITROGEN 8 MG/DL (7-18); CALCIUM 8.1 MG/DL (8.5-10.1); CHLORIDE 106 MEQ/L (98-107); CREATININE 0.81 MG/DL (0.50-1.00); GLOMERULAR FILTRATION RATE 72 ML/MIN (>89); GLUCOSE,RANDOM 101 MG/DL (74-106); SODIUM (NA) 140 MEQ/L (136-145)
[2017-08-08 06:01] LABS: ALT (GPT) 40 U/L (10-53); AST (GOT) 49 U/L (15-37)
[2017-08-08 06:03] LABS: ALKALINE PHOSPHATASE 91 U/L (45-117); TOTAL BILIRUBIN ADULT 0.4 MG/DL (0.2-1.0)
[2017-08-08] MEDS: CHLORHEXIDINE 0.12% (ORAL KIT) 15 ML CUP MT SCH ×2 (08:00→20:00)
[2017-08-08] MEDS: fentaNYL DRIP 250 ML IV PRN (08:07)
[2017-08-08] MEDS: CALCIUM/VITAMIN D 250 MG/125 U TAB PO SCH (10:15)
[2017-08-08] MEDS: DOCUSATE SODIUM 50 MG/SENNA 8.6 MG TAB PO SCH ×2 (10:15→20:09)
[2017-08-08] MEDS: MULTIVITAMIN-OPHTHALMIC 1 TAB PO SCH (10:15)
[2017-08-08] MEDS: FAMOTIDINE 20 MG TAB PO SCH ×2 (10:16→20:08)
[2017-08-08] MEDS: MICAFUNGIN INJ 150 MG in SODIUM CHLORIDE 0.9% INJ 100 ML IV SCH (10:16)
[2017-08-08] MEDS: SODIUM CHLORIDE 0.9% FLUSH 10 ML FLUSH IV FLUSH SCH ×2 (10:18→20:08)
--- NOTE | 2017-08-08 10:32 | HHI.CCPN ---
Subjective Remarks/Hospital Course This is a 62-year-old female with a history of developmental delay and recurrent urinary tract infections who presents with new onset right-sided abdominal and flank pain. Per the [facility] service admission note this is been going on for approximately 4 weeks. Patient has a history of developmental delay and is difficult to get a complete history from her, no analysis with her on my evaluation. On my evaluation she endorses flank pain radiating around to her chest. She endorses subjective chills. Denies recent fevers to me. Also endorses nausea, vomiting. In the emergency department she was found to have significant erythema, rubor, dolor, and edema from approximately the fifth intercostal space down to the eighth or ninth intercostal space wrapping around from the midline in the back all the way around to just medial to the breast. CT scan of the abdomen and pelvis confirms significant subcutaneous edema, but this area of edema appears to be contained by intact fascial planes, particularly in the midline of the back. Laboratory evidence is significant for a white blood cell count of 27k, creatinine is 3.58, potassium 5.4, bicarb of 17.9, anion gap elevated at 15, BUN of 64, an initial lactate of 5.1. In the emergency department she received 3 L of crystalloid IV fluids. Despite this she is hypotensive with a mean arterial pressure of 51. Critical care medicine is consulted to evaluate manage her presumed septic shock secondary to severe cellulitis of the trunk. I have given her an additional liter of crystalloid and then placed central venous access, see separate procedure note for details. In addition her lactate is starting to clear and is now 2.9 with an more currently pending, however it is not clearing fast enough and she remains oliguric. I placed a Terrazas for accurate hourly I's and O's. The remainder of the review systems for the patient is negative except documented in the HPI, although this is severely limited by her baseline developmental delay. Subjective 07/23: Patient remains on vasopressors, noted metabolic acidosis, bicarbonate level of 15. Sodium bicarbonate infusion initiated. 07/24 Patient was intubated early this morning now on Vasopressin and Neosyn 300 mics in addition patient is on Amio and Bicarb drips. WBC increased 31. CT abd/pelvis showed right sided cellulites and developing myositis. 07/25 Patient went to OR yesterday s/p wide excisional debridement of soft tissue infection with VAC placement for necrotizing soft tissue infection of abdomen, right hip area right torso area measuring approximately 32 x 18 inches x 2 inches deep. She remains on Vasopressin 0.04 and Neosyn down to 120 mics. On Amio drip. 07/26 No events overnight. Off all pressors, WBC is trending down. On Amio drip. 07/27 Patient remains intubated for return to OR today and wound vac exchange. 07/28 Patient s/p excisional debridement with vac change yesterday intubated and sedated with Fentanyl infusion. 07/29 Patient remains intubated and sedated with Fentanyl and Versed drips. Afebrile. 07/30 No events overnight. Patient remains sedated with Fentanyl drip and intubated. For OR today for further debridement and wound vac exchange. Afebrile. 07/31 Patient went to OR yesterday for vac exchange, Afebrile, WBC is trending down, Intubated and now sedated with Fentanyl and Versed 2mg/hr 08/01: Remains sedated, orally intubated on mechanical ventilation. Scheduled for OR today for vac exchange. 08/02: Remains intubated scheduled for OR again today. Antibiotics per ID. Slight increase in WBC count is 17.2 08/03: s/p Excisional debridement with VAC change yesterday by Dr. Dumont. Tolerating CPAP but not waking up or following commands. Dr. Dumont plans for further wound debridement and VAC change either tomorrow or Monday. Anticipating OR will leave patient intubated. WBC 19.9 today, will discuss with ID 08/04: Remains intubated, intermittently agitated on the vent. Or planned for tomorrow by Dr. Dumont. WBC count is slightly improved today 16.7 08/05: Patient is more critical today with worsening sepsis. T-max 102, WBC count up to 22.6. Hypotensive blood pressure 78/51. I have ordered 1 L normal saline bolus. Pancultured overnight. Zosyn started by Dr. Mcdonald. I will start micafungin also. Will inform ID. Dr. Dumont planning for OR today 08/06: Evaluated by night machine bookkeeper for persistent worsening hypotension called to bedside to evaluate patient with worsening hypotension. Given 500 cc 5 % albumin 1 without improvement in hypotension. A right subclavian central line was placed and norepinephrine infusion was started for persistent septic shock. Currently map remains above 65, on Levophed at 4 mcg/min. WBC 16.1 slightly improved from yesterday. Hemoglobin has dropped to 7.2 approximately 2 g drop. Transfuse 1 unit of PRBC stat. T-max 100.7, urine culture growing GNR 08/07: Remains sedated, orally intubated on mechanical ventilation. Wound VAC in place. On Levophed 2 mics per minute for hypotension. 08/08: Sedated, orally intubated on mechanical ventilation. Wound VAC remains in place. Tolerating tube feeds. Discussed with Dr. Dumont who is planning to take patient to OR tomorrow for wound VAC change as well as tracheostomy. Objective Vital Signs Date Time Temp Pulse Resp B/P (MAP) Pulse Ox O2 Delivery O2 Flow Rate FiO2 08/08/17 09:01 62 36 95/61 (72) 100 08/08/17 08:00 97.9 08/08/17 08:00 35 08/04/17 21:30 Ventilator Intake and Output 08/08/17 08/08/17 08/09/17 08:00 16:00 00:00 Intake Total 1363 ml Output Total 1050 ml Balance 313 ml Result Diagram: 08/08/17 0400 08/08/17 0400 Imaging Last Impressions Chest X-Ray 07/30/17 0000 Signed Impressions: Service Date/Time: Sunday, July 30, 2017 08:14 - CONCLUSION: Underinflation with atelectasis at the lung bases. Otherwise, no acute finding is seen given the technique. Derrick García MD Brain MRI 07/28/17 0000 Signed Impressions: Service Date/Time: Friday, July 28, 2017 14:38 - CONCLUSION: 1. Unremarkable MRI examination the brain. 2. No acute abnormality or interval change. Bob Daly MD Chest CT 07/24/17 0000 Signed Impressions: Service Date/Time: Monday, July 24, 2017 05:36 - CONCLUSION: 1. Stranding in the subcutaneous tissues about the right flank with fluid adjacent to the latissimus dorsi. Stranding extends up into the right breast. Findings could represent developing cellulitis. 2. In addition, there is now a small right-sided effusion with bilateral dependent atelectatic changes. Jerome Brady MD Abdomen/Pelvis CT 07/24/17 0000 Signed Impressions: Service Date/Time: Monday, July 24, 2017 05:36 - CONCLUSION: 1. CT findings concerning for a right sided cellulitis and developing myositis. There is some asymmetric prominence of the latissimus dorsi muscle on the right. Unorganized fluid in the deep subcutaneous tissues adjacent to the muscle belly. No drainable fluid collection, however. 2. Developing dependent areas of consolidation, right greater than left with an associated small right-sided effusion. Jerome Brady MD Head CT 07/22/17 1253 Signed Impressions: Service Date/Time: Saturday, July 22, 2017 13:26 - CONCLUSION: No acute disease. Derrick Henry MD Objective Remarks GENERAL: Elderly female, lying in bed intubated. Sedated with Versed and fentanyl HEENT: Normocephalic. Atraumatic. Pupils equal, round, reactive, conjugate. Orotracheally intubated NECK: Trachea is midline. There is no JVD. CHEST: Equal chest rise. On PRVC CARDIOVASCULAR: RRR, nl S1, S2 ABDOMEN: Soft, nontender, nondistended, +BS, wound Vac in place on the right flank covering extensive areas of debridement. MUSCULOSKELETAL: No peripheral edema. Gangrene of 2-4 toes on right NEUROLOGICAL: Intubated, sedated. Moving all extremities spontaneously, withdraws to pain. Does not follow commands on sedation hold Date of Insertion: Jul 22, 2017 Date of Insertion: August 06, 2017 Line: Central Venous Catheter A/P Assessment and Plan Active problems: Acute respiratory failure Septic shock Right flank necrotizing fasciitis Pneumonia (HCAP) Acute metabolic encephalopathy Anemia requiring transfusion Acute kidney injury Elevated CK Anemia Thrombocytopenia Hypothyroidism Plan: Neurologic: Neuro checks per ICU protocol. Fentanyl, Versed infusion for sedation and vent synchrony. Daily sedation vacation 07/22 CT brain: No acute disease. MRI brain 07/28 Unremarkable Tylenol 650 mg every 6 hours as needed for pain and/or temperature greater than 100.5 Respiratory: Continue with vent support keep sats >92% On PRVC. Daily SBT, however mental status and ongoing sepsis will not permit extubation. Needs tracheostomy. Bronchodilators, ICU vent bundle. CXR 07/30: Atelectasis at lung bases Cardiovascular: Monitor HR and BP keep MAP>65mmHg. Currently on Levophed to keep map above 65 Tapering steroids- HC 25mg IV Q12 DCd 08/04. Restart due to persistent septic shock, if Levophed requirement increasing Status post fluid and albumin resuscitation Echo showed EF 50-55% Renal: Monitor renal function, I/O's, Avoid nephrotoxins Renal is following- . On Free water 300ml Q6, monitor sodium level. Diuril 250mg IV daily per renal on hold FEN/GI: On Pepcid 10mg BID for GI prophylaxis Tube feeds- Glucerna 1.5 with goal rate 45ml/hr ID: New onset sepsis with fever 102, WBC count 22.6, 08/05. Urine cx with GNR Continue with abx (Daptomycin) ID is following. Zosyn and micafungin added 08/05. Clindamycin resumed on 08/07 per ID as patient was placed back on Levophed. 07/24, 07/27 Wound cx :MRSA 07/24 BC :NGTD 07/23: urine cx: No growth 07/22 BC: NGTD 08/04 UC: GNR Path report: Abdominal soft tissue excision: Skin and subcutaneous adipose tissue with acute cellulitis and multifocal abscess formation 07/30 Wound vac exchange 07/27 s/p excisional debridement with vac change of torso and abdomen 07/24 s/p wide excisional debridement of soft tissue infection with VAC placement for necrotizing soft tissue infection of abdomen, right hip area right torso area measuring approximately 32 x 18 inches x 2 inches deep. Surgery -Dr. Dumont. s/p debridement and wound VAC change 08/05/[address] Dumont Heme: Monitor CBC, transfuse PRBC as needed Approximately 2 g hemoglobin drop, hemoglobin is 7.2 today Transfuse 1 unit PRBC Endocrine: Levothyroxine 112 mcg/day on hold. TSH:0.08 on 07/24 Glucose monitoring per ICU protocol. -- Continue SSI medium scale for glycemic control MSK: Dry gangrene setting in of toes on right- Likely pressors induced ischemia of toes. Seen by vascular surg- no additional vascular work up needed given palpable pulses, Prophylaxis: GI Prophylaxis Famotidine DVT Prophylaxis SCDs. Chemical DVT prophylaxis when cleared by Dr. Dumont-hold due to anemia requiring transfusion Lines: Central line placed on 07/22 DCd 08/05/17. Peripheral IVs 2, New right subclavian central line placed 08/06/[address] Dumont. Planning wound VAC change as well as tracheostomy scheduled for 08/09 in the OR. CCT 35 MIN excluding procedures Artis De La Torre MD August 08, 2017 10:32
--- NOTE | 2017-08-08 12:09 | HHI.IDPN ---
Subjective Subjective Remarks Most of the history was obtained by review of medical records. Patient shortly being wheeled out to the operating room for surgical exploration of the site of necrotizing fasciitis Septic shock. Ms. Eldridge is a 62-year-old female who reportedly has developmental delays per chart review. Patient presented to the emergency department via EMS for evaluation of right-sided abdominal, flank and back erythema swelling and pain. Patient's care provider and power of transactional attorney listed on the chart is Mr. Felipe Nagy who can be contacted at [phone]. Patient had earlier reported to others that she was feeling unwell for the past 4 weeks. Patient reported increase in her migraine symptoms. Patient also reported continuous, nonradiating sharps times burning pain over the right upper quadrant that is expanded to include her right flank and back. She denies any trauma to these areas. Patient reported to others prior to being intubated that she had nausea and vomiting associated with decreased appetite. Patient also had reported to others that she was dizzy and lightheaded. Per review of records it appears that patient has had multiple falls as well as has had urinary incontinence at baseline with decreased urine output over the last few days. Patient also reported subjective symptoms such as burning with urination. Per EMS, patient was found to be hypotensive. Systolic pressure was recorded in the 70s. She received fluid in transit with minimal improvement. In the emergency department she was found to have significant erythema,pain and edema from approximately the fifth intercostal space down to the eighth or ninth intercostal space wrapping around from the midline in the back all the way around to just medial to the breast. CT scan of the abdomen and pelvis confirms significant subcutaneous edema, but this area of edema appears to be contained by intact fascial planes, particularly in the midline of the back. Laboratory evidence is significant for a white blood cell count of 27k, creatinine is 3.58, potassium 5.4, bicarb of 17.9, anion gap elevated at 15, BUN of 64, an initial lactate of 5.1. In the emergency department she received 3 L of crystalloid IV fluids. Critical care medicine is consulted to evaluate manage her presumed septic shock secondary to severe cellulitis of the trunk. Overnight critical care medicine was consulted for worsening sepsis and septic shock. Patient had to be intubated and upon evaluation was found to have evidence suggestive of necrotizing fasciitis involving similar areas as reported on the emergency room but had progressed beyond the line of demarcation. Patient was noted to have significant blisters and blackening of the areas. Critical care medicine change the regimen to Zosyn IV, vancomycin IV and added clindamycin IV and placed a surgical consult. Patient was evaluated by Dr. Thor Dumnot of surgery and patient is being wheeled to the operating room shortly. At the time of my evaluation patient is in the ICU currently on high-dose Levophed as well as vasopressin with slight decrease in Levophed requirement after addition of clindamycin IV. Urine output is low. No diarrhea. No diffuse rash or skin changes other than as described. Notes reviewed. dw RN patient became hypotensive over the last few days. Septic shock now on pressors. Levo 2 mics. RN reports plan for OR tomorrow. Secretions moderate to large yao colored. Sedated on the vent. Repeat wound C/S MRSA sputum with Kleb, PSAE susceptibility pending. Temps ok No rash Antibiotics Dapto IV Zosyn IV Micafungin IV Lines Line sites with no e.o infection Past Medical History Anxiety Depression Developmental delays - mental handicap Headaches/migraines Hypothyroidism GERD Chest pain Hx of UTIs Renal insufficiency Bladder incontinence Chronic back pain Thyroid surgery EGD - 08/30/16 Cholecystectomy - 03/04/15 D&C Hysterectomy Colonoscopy - 07/30/16 and 08/11/15 Allergies: Coded Allergies: No Known Allergies (Verified Allergy, Unknown, 07/22/17) Objective . Vital Signs Date Time Temp Pulse Resp B/P (MAP) Pulse Ox O2 Delivery O2 Flow Rate FiO2 08/08/17 12:03 100 35 08/08/17 09:01 62 36 95/61 (72) 100 08/08/17 09:00 62 44 100 08/08/17 08:46 60 29 107/64 (78) 100 08/08/17 08:37 59 32 109/66 (80) 100 08/08/17 08:15 60 27 90/64 (73) 100 08/08/17 08:05 59 39 106/58 (74) 99 08/08/17 08:00 97.9 59 33 100 08/08/17 08:00 35 08/08/17 08:00 61 08/08/17 07:45 59 40 84/61 (69) 99 08/08/17 07:30 61 41 81/62 (68) 99 08/08/17 07:21 99 35 08/08/17 07:16 59 20 86/67 (73) 98 08/08/17 07:00 60 27 88/61 (70) 99 08/08/17 06:00 60 08/08/17 04:01 98 35 08/08/17 04:00 35 08/08/17 04:00 61 08/08/17 04:00 98.7 61 13 101/60 (74) 98 08/08/17 02:00 53 08/08/17 01:43 55 110/67 08/08/17 01:32 55 106/64 08/08/17 00:30 98 35 08/08/17 00:00 35 08/08/17 00:00 98.1 56 13 114/68 (83) 98 08/08/17 00:00 56 08/07/17 22:00 57 08/07/17 20:00 97.8 65 13 120/58 (78) 100 08/07/17 20:00 35 08/07/17 20:00 65 08/07/17 19:53 99 35 08/07/17 18:00 56 08/07/17 16:00 98.2 63 13 94/54 (67) 97 08/07/17 16:00 35 08/07/17 16:00 63 08/07/17 14:00 58 08/08/17 08/08/17 08/09/17 15:00 23:00 07:00 Intake Total 150 ml Balance 150 ml IV Total 150 ml . Laboratory Tests Test 08/08/17 04:00 White Blood Count 15.0 TH/MM3 Red Blood Count 3.52 MIL/MM3 Hemoglobin 9.5 GM/DL Hematocrit 29.1 % Mean Corpuscular Volume 82.8 FL Mean Corpuscular Hemoglobin 26.9 PG Mean Corpuscular Hemoglobin Concent 32.5 % Red Cell Distribution Width 15.7 % Platelet Count 459 TH/MM3 Mean Platelet Volume 6.0 FL Neutrophils (%) (Auto) 78.7 % Lymphocytes (%) (Auto) 13.3 % Monocytes (%) (Auto) 4.8 % Eosinophils (%) (Auto) 2.0 % Basophils (%) (Auto) 1.2 % Neutrophils # (Auto) 11.8 TH/MM3 Lymphocytes # (Auto) 2.0 TH/MM3 Monocytes # (Auto) 0.7 TH/MM3 Eosinophils # (Auto) 0.3 TH/MM3 Basophils # (Auto) 0.2 TH/MM3 CBC Comment DIFF FINAL Differential Comment Laboratory Tests Test 08/08/17 04:00 Blood Urea Nitrogen 8 MG/DL Creatinine 0.81 MG/DL Random Glucose 101 MG/DL Total Protein 5.0 GM/DL Albumin 1.4 GM/DL Calcium Level 8.1 MG/DL Alkaline Phosphatase 91 U/L Aspartate Amino Transf (AST/SGOT) 49 U/L Alanine Aminotransferase (ALT/SGPT) 40 U/L Total Bilirubin 0.4 MG/DL Sodium Level 140 MEQ/L Potassium Level 3.2 MEQ/L Chloride Level 106 MEQ/L Carbon Dioxide Level 23.7 MEQ/L Anion Gap 10 MEQ/L Estimat Glomerular Filtration Rate 72 ML/MIN Microbiology Date/Time Source Procedure Growth Status 08/06/17 00:43 Blood Peripheral Aerobic Blood Culture - Preliminary NO GROWTH IN 2 DAYS Resulted 08/06/17 00:43 Blood Peripheral Anaerobic Blood Culture - Final QNS - SEE AEROBE REPORT Resulted Imaging Chest X-Ray 07/30/17 0000 Signed Impressions: Service Date/Time: Sunday, July 30, 2017 08:14 - CONCLUSION: Underinflation with atelectasis at the lung bases. Otherwise, no acute finding is seen given the technique. Derrick García MD Brain MRI 07/28/17 0000 Signed Impressions: Service Date/Time: Friday, July 28, 2017 14:38 - CONCLUSION: 1. Unremarkable MRI examination the brain. 2. No acute abnormality or interval change. Bob Daly MD Chest CT 07/24/17 0000 Signed Impressions: Service Date/Time: Monday, July 24, 2017 05:36 - CONCLUSION: 1. Stranding in the subcutaneous tissues about the right flank with fluid adjacent to the latissimus dorsi. Stranding extends up into the right breast. Findings could represent developing cellulitis. 2. In addition, there is now a small right-sided effusion with bilateral dependent atelectatic changes. Jerome Brady MD Abdomen/Pelvis CT 07/24/17 0000 Signed Impressions: Service Date/Time: Monday, July 24, 2017 05:36 - CONCLUSION: 1. CT findings concerning for a right sided cellulitis and developing myositis. There is some asymmetric prominence of the latissimus dorsi muscle on the right. Unorganized fluid in the deep subcutaneous tissues adjacent to the muscle belly. No drainable fluid collection, however. 2. Developing dependent areas of consolidation, right greater than left with an associated small right-sided effusion. Jerome Brady MD Head CT 07/22/17 1253 Signed Impressions: Service Date/Time: Saturday, July 22, 2017 13:26 - CONCLUSION: No acute disease. Derrick Henry MD Physical Exam GENERAL: Sedated on the vent, NAD. On CPAP SKIN: No generalized rash. Dry, cool extremities HEAD: Atraumatic. Normocephalic. No temporal or scalp tenderness. EYES: Pupils equal round and reactive. Extraocular motions intact. No scleral icterus. No injection or drainage. ENT: Intubated. Moist mucosa NECK: Trachea midline. Supple, nontender, no meningeal signs. CARDIOVASCULAR: Heart sounds audible. No murmur appreciated. RESPIRATORY: Clear to auscultation. Breath sounds equal bilaterally. No wheezes , rales, or rhonchi. GASTROINTESTINAL: Abdomen soft. Wound vac area noted. Extensive area covered with wound vac sponge, output serosanguineous. Area appears extended since last seen upto midline on the back. MUSCULOSKELETAL: Extremities without clubbing, cyanosis. Some pedal edema. Ischemic toes R foot 2-4 toes and tip of 5th toe, no change. Cool feet NEUROLOGICAL: Sedated. Psych could not be assessed IV line sites with no e.o infection Assessment & Plan Remarks Septic shock with multiorgan dysfunction syndrome Sepsis present on admission Necrotizing fasciitis of the abdominal wall ? History of multiple falls likely the precipitant. PSAE and Kleb pneumo pneumonia. PSAE and kleb in urine ? contamination as 2 organisms. Acute rhabdomyolysis Acute renal failure: Prerenal, sepsis, rhabdomyolysis Acute metabolic encephalopathy likely sepsis related. Baseline unknown Leukocytosis, lower today - nothing new on C/S; last OR C/S MRSA - could be reactive from last OR Recommendations: Continue Dapto IV (Vanco DELMI 2, clinically still has new areas of erythema and e /o infection outside wound vac margin, acute renal failure) continue Zosyn IV Continue Micafungin IV pending finalization of cultures. Start Clindamycin IV Follow cultures to adjust antibiotics. Follow clinically. neva [facility] MD: wound vac change and debridement per Surgery in am. Trach in am. PEG placement may be a challenge as the wound area appears progressed last few days. dw Surgery PA Ellen De La Torre MD August 08, 2017 12:09
--- NOTE | 2017-08-08 15:02 | HHI.HCPN ---
Reason for visit a. To assist with evaluation and management of symptoms including: pain, dyspnea. b. To assist medical decision maker(s) with: better understanding of current medical conditions; weighing benefits/burdens of medical treatment options; making medical treatment decisions. . Subjective/Interval History No significant change. Underwent another debridement / wound-vac change on 08/05/17; she had more profound sepsis and hypotension later that night. She may go back to the OR again tomorrow for more debridement and tracheostomy. White count is now 15. Albumin is down to 1.4. . Advance Directives Durable Power of Trade Show Coordinator: Copy in medical record Advance Directive Specifics Date completed: An incomplete (only pages 2 and 3 of a 3 page document were avialable) and it did not specify health care decision making. . Health Care Surrogate(s): Mr. Felipe Nagy was given POA but the POA document did not specify health care decision making. . Documented care wishes: There is no written documentation of health care goals/preferences. . Objective Vital Signs Date Time Temp Pulse Resp B/P (MAP) Pulse Ox O2 Delivery O2 Flow Rate FiO2 08/08/17 14:00 63 08/08/17 12:03 100 35 08/08/17 12:00 35 08/08/17 12:00 65 08/08/17 12:00 98.7 69 24 115/59 (77) 100 08/08/17 11:45 71 22 117/59 (78) 100 08/08/17 11:44 72 22 117/58 (77) 100 08/08/17 11:30 62 35 108/39 (62) 100 08/08/17 11:15 62 34 100/61 (74) 100 08/08/17 11:00 62 33 117/52 (73) 100 08/08/17 10:31 62 31 62/39 (47) 100 08/08/17 10:30 62 31 100 08/08/17 10:16 62 31 98/50 (66) 100 08/08/17 10:09 62 31 95/61 (72) 100 08/08/17 10:00 67 08/08/17 09:45 63 35 88/51 (63) 100 08/08/17 09:31 65 31 87/61 (70) 100 08/08/17 09:30 65 33 100 08/08/17 09:01 62 36 95/61 (72) 100 08/08/17 09:00 62 44 100 08/08/17 08:46 60 29 107/64 (78) 100 08/08/17 08:37 59 32 109/66 (80) 100 08/08/17 08:15 60 27 90/64 (73) 100 08/08/17 08:05 59 39 106/58 (74) 99 08/08/17 08:00 97.9 59 33 100 08/08/17 08:00 35 08/08/17 08:00 61 08/08/17 07:45 59 40 84/61 (69) 99 08/08/17 07:30 61 41 81/62 (68) 99 08/08/17 07:21 99 35 08/08/17 07:16 59 20 86/67 (73) 98 08/08/17 07:00 60 27 88/61 (70) 99 08/08/17 06:00 60 08/08/17 04:01 98 35 08/08/17 04:00 35 08/08/17 04:00 61 08/08/17 04:00 98.7 61 13 101/60 (74) 98 08/08/17 02:00 53 08/08/17 01:43 55 110/67 08/08/17 01:32 55 106/64 08/08/17 00:30 98 35 08/08/17 00:00 35 08/08/17 00:00 98.1 56 13 114/68 (83) 98 08/08/17 00:00 56 08/07/17 22:00 57 08/07/17 20:00 97.8 65 13 120/58 (78) 100 08/07/17 20:00 35 08/07/17 20:00 65 08/07/17 19:53 99 35 08/07/17 18:00 56 08/07/17 16:00 98.2 63 13 94/54 (67) 97 08/07/17 16:00 35 08/07/17 16:00 63 Intake & Output 08/08/17 08/08/17 06:59 18:59 Intake Total 1563 ml 400 ml Output Total 1050 ml Balance 513 ml 400 ml IV Total 805 ml 400 ml Tube Feeding 458 ml Other 300 ml Output Urine Total 900 ml Drainage Total 150 ml # Bowel Movements 2 Physical Exam CONSTITUTIONAL/GENERAL: This is a chronically ill-appearing patient, sedated, intubated, mechanically ventilated in the MICU. Does not open her eyes for me and is not able to follow commands. TUBES/LINES/DRAINS: Wound vac, left subclavian central line; Peripheral IV; ET tube, scales. SKIN: Large right sided wound s/p debridment with wound vac from right thigh all the way up torso to below axillary area, and around the back nearly to the midline in the mid thoracic area. ENT: . Nose without bleeding or purulent drainage. ET tube in place. Dried blood on lips. CARDIOVASCULAR: Regular rate and rhythm without murmurs, gallops, or rubs. No JVD. RESPIRATORY/CHEST: Symmetric, unlabored respirations. Some scattered rhonchi are present bilateral. Breath sounds equal bilaterally. GASTROINTESTINAL: Abdomen soft, nondistended. No hepato-splenomegaly, or palpable masses. No guarding. Bowel sounds present. GENITOURINARY: Without palpable bladder distension. Scales catheter in place. MUSCULOSKELETAL: Extremities without clubbing, edema. Right foot toes are all ischemic with necrotic tips except for the great toe. NEUROLOGICAL: Intubated and sedated. Does not awaken to voice or exam. PSYCHIATRIC: Unable to examine . . Diagnostic Tests Laboratory Laboratory Tests Test 08/06/17 03:50 08/08/17 04:00 White Blood Count 16.1 TH/MM3 (4.0-11.0) 15.0 TH/MM3 (4.0-11.0) Red Blood Count 2.64 MIL/MM3 (4.00-5.30) 3.52 MIL/MM3 (4.00-5.30) Hemoglobin 7.2 GM/DL (11.6-15.3) 9.5 GM/DL (11.6-15.3) Hematocrit 22.3 % (35.0-46.0) 29.1 % (35.0-46.0) Mean Corpuscular Volume 84.4 FL (80.0-100.0) 82.8 FL (80.0-100.0) Mean Corpuscular Hemoglobin 27.3 PG (27.0-34.0) 26.9 PG (27.0-34.0) Mean Corpuscular Hemoglobin Concent 32.3 % (32.0-36.0) 32.5 % (32.0-36.0) Red Cell Distribution Width 15.9 % (11.6-17.2) 15.7 % (11.6-17.2) Platelet Count 419 TH/MM3 (150-450) 459 TH/MM3 (150-450) Mean Platelet Volume 6.8 FL (7.0-11.0) 6.0 FL (7.0-11.0) Neutrophils (%) (Auto) 74.8 % (16.0-70.0) 78.7 % (16.0-70.0) Lymphocytes (%) (Auto) 13.9 % (9.0-44.0) 13.3 % (9.0-44.0) Monocytes (%) (Auto) 8.3 % (0.0-8.0) 4.8 % (0.0-8.0) Eosinophils (%) (Auto) 1.8 % (0.0-4.0) 2.0 % (0.0-4.0) Basophils (%) (Auto) 1.2 % (0.0-2.0) 1.2 % (0.0-2.0) Neutrophils # (Auto) 12.1 TH/MM3 (1.8-7.7) 11.8 TH/MM3 (1.8-7.7) Lymphocytes # (Auto) 2.2 TH/MM3 (1.0-4.8) 2.0 TH/MM3 (1.0-4.8) Monocytes # (Auto) 1.3 TH/MM3 (0-0.9) 0.7 TH/MM3 (0-0.9) Eosinophils # (Auto) 0.3 TH/MM3 (0-0.4) 0.3 TH/MM3 (0-0.4) Basophils # (Auto) 0.2 TH/MM3 (0-0.2) 0.2 TH/MM3 (0-0.2) CBC Comment DIFF FINAL DIFF FINAL Differential Comment Blood Urea Nitrogen 13 MG/DL (7-18) 8 MG/DL (7-18) Creatinine 0.77 MG/DL (0.50-1.00) 0.81 MG/DL (0.50-1.00) Random Glucose 88 MG/DL (74-106) 101 MG/DL (74-106) Calcium Level 8.8 MG/DL (8.5-10.1) 8.1 MG/DL (8.5-10.1) Sodium Level 142 MEQ/L (136-145) 140 MEQ/L (136-145) Potassium Level 3.8 MEQ/L (3.5-5.1) 3.2 MEQ/L (3.5-5.1) Chloride Level 106 MEQ/L (98-107) 106 MEQ/L (98-107) Carbon Dioxide Level 27.9 MEQ/L (21.0-32.0) 23.7 MEQ/L (21.0-32.0) Anion Gap 8 MEQ/L (5-15) 10 MEQ/L (5-15) Estimat Glomerular Filtration Rate 76 ML/MIN (>89) 72 ML/MIN (>89) Total Protein 5.0 GM/DL (6.4-8.2) Albumin 1.4 GM/DL (3.4-5.0) Alkaline Phosphatase 91 U/L (45-117) Aspartate Amino Transf (AST/SGOT) 49 U/L (15-37) Alanine Aminotransferase (ALT/SGPT) 40 U/L (10-53) Total Bilirubin 0.4 MG/DL (0.2-1.0) Result Diagram: 08/08/170 08/08/17 0400 Microbiology Microbiology Date/Time Source Procedure Growth Status 08/06/17 00:43 Blood Peripheral Aerobic Blood Culture - Preliminary NO GROWTH IN 2 DAYS Resulted 08/06/17 00:43 Blood Peripheral Anaerobic Blood Culture - Final QNS - SEE AEROBE REPORT Resulted Procedures INTUBATION Debridement/wound VAC Second debridement/wound VAC 08/05/17 . Assessment and Plan Disease Oriented Problem List: (1) Severe sepsis (2) Abdominal wall cellulitis Comment: required debridement of necrotizing tissue. (3) Acute kidney injury Comment: Improved (4) DM (diabetes mellitus) Symptom Scale: (1) Dyspnea 0-10 Scale: Unable to quantify (2) Pain 0-10 Scale: Unable to quantify Comment: No known pre-hospitalization pain syndromes. Current sources of pain probably include large wound; prolonged bedbound status; scales cathter; vascular access lines; restraints; ET tube. . Pertinent Non-Medical Issues Psychosocial:developmental delay, Spiritual: Has not belong to any particular gemma group. Per her partner, she has been recently interested in rastafari oriented audio cassettes Legal: Mr. Nagy brought in part of a POA document signed by the patient; he is the current healthcare proxy since no family could be found Ethical issues impacting care: Patient is incapacitated. . Important Contacts Felipe Nagy Dee Dee reported POA. [phone] . Prognosis 62 year old female with severe sepsis, due to large right sided necrotizing wound + for MRSA. Remains critically ill and has had recurrent hypotension/ sepsis, and she is progressively more debilitated and malnourished. Prognosis is guarded. Her large, complicated wound may require weeks more of hospitalization . Pt's developmental delays may hinder pt's ability to convalesce. . . Code Status: Full Code Plan == Code Status : Full Code == Decision Making: Patient is incapacitated to make her own health care decisions with no reasonable hope of recovering capacity. Mr. Nagy had self identified as her "guardian" and "power of collections attorney." There is only POA paperwork; Mr. Nagy has been a "close personal friend" regularly attending all of her outpatient physician appointments with the patient. Until such time as other family members present themselves or we are given contact information for other surviving family members, Mr. Nagy will remain the legal proxy for health care decisions. ==Goals of medical treatment: Patient never completed an advance directive nor had conversations regarding what she would want or not want if she were to become critically ill like this. Mr. Nagy feels the patient would certainly want to continue fighting at this time. Goals at this time continue to be aggressive. == Symptoms (see symptoms above) * dyspnea: managed with mechanical ventilation * pain- Multiple sources of discomfort including -- , extensive right sided wound; repeated debridements and wound vac changes; prolonged bedbound status ; etc. Currently being managed with fentanyl drip with adequate results. * Intermittent Agitation -remains on Versed infusion now == Plan * Mr. Nagy has thus far been unable to find any information regarding the possibility of any patient's surviving relatives. * In the meantime, Mr. Nagy will continue to function as the health care proxy as he has demonstrated concern and interest over the years and has appeared to be advocating for her appropriately.... and we have access to no alternatives. == Palliative car will continue to follow to assist with symptom management and to further clarify goals of medical treatment as the clinical course evolves. . Time Spent Total Floor Time (mins): 29 Face to Face Time (mins): 10 >50% Counseling/Coord of Care: Yes Attestation To help prompt me to consider important information that might be impacting today's encounter and assessment, information from prior notes written by myself or my colleagues may have been "brought forward" into today's note. My signature on this note, however, is an attestation that I personally performed the exam, history, and/or decision-making noted today, and, unless otherwise indicated, the interactions with patient, family, and staff as well as the review of records all occurred today. I also attest that the listed assessment and stated plan reflect my best clinical judgment today based on the combination of historical information, prior notes, and today's exam/ interactions. When time spent is documented, it refers only to time spent today by the signer, or if indicated, combined time spent today by collaborating physician/nurse practitioner. Eva Hopkins MD August 08, 2017 15:02
[2017-08-08] MEDS: SODIUM CHLORIDE 0.9% IV SCH (18:02)
[2017-08-08] MEDS: DAPTOMYCIN IV SCH (18:02)
[2017-08-09] VITALS (25 sets, daily range): BP systolic 91–146; BP diastolic 58–77; PULSE 59–97; RESP 14–32; TEMP 98.1–99.1; O2SAT 90–100
[2017-08-09] MEDS: PIPERACIL-TAZO 4.5 GM PREMIX 100 ML IV SCH ×4 (00:40→18:35)
[2017-08-09] MEDS: INSULIN NovoLIN REGULAR SUPPLEMENTAL SCALE SQ SCH ×6 (04:00→20:00)
[2017-08-09] MEDS: CLINDAMYCIN 900 MG/NS PREMIX 50 ML IV SCH ×3 (04:01→20:45)
[2017-08-09 04:15] LABS: AUTOMATED NEUTROPHIL # 13.5 TH/MM3 (1.8-7.7); BASOPHIL # 0.1 TH/MM3 (0-0.2); BASOPHIL % 0.9 % (0.0-2.0); EOSINOPHIL # 0.3 TH/MM3 (0-0.4); EOSINOPHIL % 1.7 % (0.0-4.0); HEMOGLOBIN 9.7 GM/DL (11.6-15.3); MEAN CELL VOLUME 82.8 FL (80.0-100.0); MEAN CORPUSCULAR HEMOGLOBIN 26.7 PG (27.0-34.0); MEAN CORPUSCULAR HGB CONC 32.2 % (32.0-36.0); MEAN PLATELET VOLUME 5.8 FL (7.0-11.0); MONO % 5.6 % (0.0-8.0); MONOCYTE # 0.9 TH/MM3 (0-0.9); NEUT % 79.8 % (16.0-70.0); PLATELET COUNT 460 TH/MM3 (150-450); RED BLOOD COUNT 3.62 MIL/MM3 (4.00-5.30); RED CELL DISTRIBUTION WIDTH 15.7 % (11.6-17.2)
[2017-08-09 04:43] LABS: ALBUMIN 1.4 GM/DL (3.4-5.0); AST (GOT) 47 U/L (15-37); BICARBONATE 27.9 MEQ/L (21.0-32.0); BLOOD UREA NITROGEN 11 MG/DL (7-18); CALCIUM 8.7 MG/DL (8.5-10.1); CHLORIDE 106 MEQ/L (98-107); CREATININE 0.78 MG/DL (0.50-1.00); GLOMERULAR FILTRATION RATE 75 ML/MIN (>89); GLUCOSE,RANDOM 88 MG/DL (74-106); SODIUM (NA) 141 MEQ/L (136-145)
[2017-08-09 04:44] LABS: ALT (GPT) 49 U/L (10-53)
[2017-08-09 04:46] LABS: ALKALINE PHOSPHATASE 95 U/L (45-117); TOTAL BILIRUBIN ADULT 0.4 MG/DL (0.2-1.0); TOTAL PROTEIN 5.5 GM/DL (6.4-8.2)
[2017-08-09] MEDS: MIDAZOLAM 50 MG/50 ML INJ 50 ML IV PRN (04:54)
[2017-08-09] MEDS: fentaNYL DRIP 250 ML IV PRN (04:54)
[2017-08-09] MEDS: DILTIAZEM HCL 60 MG TAB PO SCH ×4 (06:00→18:35)
[2017-08-09] MEDS: FREE WATER G-TUBE SCH ×5 (06:00→20:38)
[2017-08-09] MEDS: CHLORHEXIDINE 0.12% (ORAL KIT) 15 ML CUP MT SCH ×2 (08:04→20:00)
[2017-08-09] MEDS: DOCUSATE SODIUM 50 MG/SENNA 8.6 MG TAB PO SCH ×2 (09:00→20:38)
[2017-08-09] MEDS: MICAFUNGIN INJ 150 MG in SODIUM CHLORIDE 0.9% INJ 100 ML IV SCH (10:02)
[2017-08-09] MEDS: CALCIUM/VITAMIN D 250 MG/125 U TAB PO SCH (10:02)
[2017-08-09] MEDS: FAMOTIDINE 20 MG TAB PO SCH ×2 (10:02→20:45)
[2017-08-09] MEDS: MULTIVITAMIN-OPHTHALMIC 1 TAB PO SCH (10:02)
[2017-08-09] MEDS: SODIUM CHLORIDE 0.9% FLUSH 10 ML FLUSH IV FLUSH SCH ×2 (10:03→20:41)
--- NOTE | 2017-08-09 11:26 | HHI.CCPN ---
Subjective Remarks/Hospital Course This is a 62-year-old female with a history of developmental delay and recurrent urinary tract infections who presents with new onset right-sided abdominal and flank pain. Per the [facility] service admission note this is been going on for approximately 4 weeks. Patient has a history of developmental delay and is difficult to get a complete history from her, no analysis with her on my evaluation. On my evaluation she endorses flank pain radiating around to her chest. She endorses subjective chills. Denies recent fevers to me. Also endorses nausea, vomiting. In the emergency department she was found to have significant erythema, rubor, dolor, and edema from approximately the fifth intercostal space down to the eighth or ninth intercostal space wrapping around from the midline in the back all the way around to just medial to the breast. CT scan of the abdomen and pelvis confirms significant subcutaneous edema, but this area of edema appears to be contained by intact fascial planes, particularly in the midline of the back. Laboratory evidence is significant for a white blood cell count of 27k, creatinine is 3.58, potassium 5.4, bicarb of 17.9, anion gap elevated at 15, BUN of 64, an initial lactate of 5.1. In the emergency department she received 3 L of crystalloid IV fluids. Despite this she is hypotensive with a mean arterial pressure of 51. Critical care medicine is consulted to evaluate manage her presumed septic shock secondary to severe cellulitis of the trunk. I have given her an additional liter of crystalloid and then placed central venous access, see separate procedure note for details. In addition her lactate is starting to clear and is now 2.9 with an more currently pending, however it is not clearing fast enough and she remains oliguric. I placed a Terraz[place] for accurate hourly I's and O's. The remainder of the review systems for the patient is negative except documented in the HPI, although this is severely limited by her baseline developmental delay. Subjective 07/23: Patient remains on vasopressors, noted metabolic acidosis, bicarbonate level of 15. Sodium bicarbonate infusion initiated. 07/24 Patient was intubated early this morning now on Vasopressin and Neosyn 300 mics in addition patient is on Amio and Bicarb drips. WBC increased 31. CT abd/pelvis showed right sided cellulites and developing myositis. 07/25 Patient went to OR yesterday s/p wide excisional debridement of soft tissue infection with VAC placement for necrotizing soft tissue infection of abdomen, right hip area right torso area measuring approximately 32 x 18 inches x 2 inches deep. She remains on Vasopressin 0.04 and Neosyn down to 120 mics. On Amio drip. 07/26 No events overnight. Off all pressors, WBC is trending down. On Amio drip. 07/27 Patient remains intubated for return to OR today and wound vac exchange. 07/28 Patient s/p excisional debridement with vac change yesterday intubated and sedated with Fentanyl infusion. 07/29 Patient remains intubated and sedated with Fentanyl and Versed drips. Afebrile. 07/30 No events overnight. Patient remains sedated with Fentanyl drip and intubated. For OR today for further debridement and wound vac exchange. Afebrile. 07/31 Patient went to OR yesterday for vac exchange, Afebrile, WBC is trending down, Intubated and now sedated with Fentanyl and Versed 2mg/hr 08/01: Remains sedated, orally intubated on mechanical ventilation. Scheduled for OR today for vac exchange. 08/02: Remains intubated scheduled for OR again today. Antibiotics per ID. Slight increase in WBC count is 17.2 08/03: s/p Excisional debridement with VAC change yesterday by Dr. Dumont. Tolerating CPAP but not waking up or following commands. Dr. Dumont plans for further wound debridement and VAC change either tomorrow or Monday. Anticipating OR will leave patient intubated. WBC 19.9 today, will discuss with ID 08/04: Remains intubated, intermittently agitated on the vent. Or planned for tomorrow by Dr. Dumont. WBC count is slightly improved today 16.7 08/05: Patient is more critical today with worsening sepsis. T-max 102, WBC count up to 22.6. Hypotensive blood pressure 78/51. I have ordered 1 L normal saline bolus. Pancultured overnight. Zosyn started by Dr. Mcdonald. I will start micafungin also. Will inform ID. Dr. Dumont planning for OR today 08/06: Evaluated by night cashier associate for persistent worsening hypotension called to bedside to evaluate patient with worsening hypotension. Given 500 cc 5 % albumin 1 without improvement in hypotension. A right subclavian central line was placed and norepinephrine infusion was started for persistent septic shock. Currently map remains above 65, on Levophed at 4 mcg/min. WBC 16.1 slightly improved from yesterday. Hemoglobin has dropped to 7.2 approximately 2 g drop. Transfuse 1 unit of PRBC stat. T-max 100.7, urine culture growing GNR 08/07: Remains sedated, orally intubated on mechanical ventilation. Wound VAC in place. On Levophed 2 mics per minute for hypotension. 08/08: Sedated, orally intubated on mechanical ventilation. Wound VAC remains in place. Tolerating tube feeds. Discussed with Dr. Dumont who is planning to take patient to OR tomorrow for wound VAC change as well as tracheostomy. 08/09: OR today for wound VAC change and tracheostomy. Remains on Levophed at 1 mcg/min. If continued Levophed requirement, right subclavian central line heading towards the left subclavian need to be replaced Objective Vital Signs Date Time Temp Pulse Resp B/P (MAP) Pulse Ox O2 Delivery O2 Flow Rate FiO2 08/09/17 11:15 99 35 08/09/17 08:00 98.5 74 16 137/61 (86) Intake and Output 08/09/17 08/09/17 08/10/17 08:00 16:00 00:00 Intake Total 824 ml Output Total 550 ml Balance 274 ml Result Diagram: 08/09/17 0350 08/09/17 0350 Imaging Last Impressions Chest X-Ray 07/30/17 0000 Signed Impressions: Service Date/Time: Sunday, July 30, 2017 08:14 - CONCLUSION: Underinflation with atelectasis at the lung bases. Otherwise, no acute finding is seen given the technique. Derrick aGrcía MD Brain MRI 07/28/17 0000 Signed Impressions: Service Date/Time: Friday, July 28, 2017 14:38 - CONCLUSION: 1. Unremarkable MRI examination the brain. 2. No acute abnormality or interval change. Bob Daly MD Chest CT 07/24/17 0000 Signed Impressions: Service Date/Time: Monday, July 24, 2017 05:36 - CONCLUSION: 1. Stranding in the subcutaneous tissues about the right flank with fluid adjacent to the latissimus dorsi. Stranding extends up into the right breast. Findings could represent developing cellulitis. 2. In addition, there is now a small right-sided effusion with bilateral dependent atelectatic changes. Jerome Brady MD Abdomen/Pelvis CT 07/24/17 0000 Signed Impressions: Service Date/Time: Monday, July 24, 2017 05:36 - CONCLUSION: 1. CT findings concerning for a right sided cellulitis and developing myositis. There is some asymmetric prominence of the latissimus dorsi muscle on the right. Unorganized fluid in the deep subcutaneous tissues adjacent to the muscle belly. No drainable fluid collection, however. 2. Developing dependent areas of consolidation, right greater than left with an associated small right-sided effusion. Jerome Brady MD Head CT 07/22/17 1253 Signed Impressions: Service Date/Time: Saturday, July 22, 2017 13:26 - CONCLUSION: No acute disease. Derrick Henry MD Objective Remarks GENERAL: Elderly female, lying in bed intubated. Sedated with Versed and fentanyl HEENT: Normocephalic. Atraumatic. Pupils equal, round, reactive, conjugate. Orotracheally intubated NECK: Trachea is midline. There is no JVD. CHEST: Equal chest rise. On PRVC CARDIOVASCULAR: RRR, nl S1, S2 ABDOMEN: Soft, nontender, nondistended, +BS, wound Vac in place on the right flank covering extensive areas of debridement. MUSCULOSKELETAL: No peripheral edema. Gangrene of 2-4 toes on right NEUROLOGICAL: Intubated, sedated. Moving all extremities spontaneously, withdraws to pain. Does not follow commands on sedation hold Date of Insertion: Jul 22, 2017 Date of Insertion: August 06, 2017 Line: Central Venous Catheter A/P Assessment and Plan Active problems: Acute respiratory failure Septic shock Right flank necrotizing fasciitis Pneumonia (HCAP) Acute metabolic encephalopathy Anemia requiring transfusion Acute kidney injury Elevated CK Anemia Thrombocytopenia Hypothyroidism Plan: Neurologic: Neuro checks per ICU protocol. Fentanyl, Versed infusion for sedation and vent synchrony. Daily sedation vacation 07/22 CT brain: No acute disease. MRI brain 07/28 Unremarkable Tylenol 650 mg every 6 hours as needed for pain and/or temperature greater than 100.5 Respiratory: Continue with vent support keep sats >92% On PRVC. Daily SBT, however mental status and ongoing sepsis will not permit extubation. OR tracheostomy today 08/09 Bronchodilators, ICU vent bundle. CXR 07/30: Atelectasis at lung bases Cardiovascular: Monitor HR and BP keep MAP>65mmHg. Currently on Levophed to keep map above 65 Tapering steroids- HC 25mg IV Q12 DCd 08/04. Status post fluid and albumin resuscitation Echo showed EF 50-55% Renal: Monitor renal function, I/O's, Avoid nephrotoxins Renal is following- . On Free water 300ml Q6, monitor sodium level. Diuril 250mg IV daily per renal on hold FEN/GI: On Pepcid 10mg BID for GI prophylaxis Tube feeds- Glucerna 1.5 with goal rate 45ml/hr ID: New onset sepsis with fever 102, WBC count 22.6, 08/05. Urine cx with GNR Continue with abx (Daptomycin) ID is following. Zosyn and micafungin added 08/05. Clindamycin resumed on 08/07 per ID as patient was placed back on Levophed. 07/24, 07/27 Wound cx :MRSA 07/24 BC :NGTD 07/23: urine cx: No growth 07/22 BC: NGTD 08/04 UC: GNR Path report: Abdominal soft tissue excision: Skin and subcutaneous adipose tissue with acute cellulitis and multifocal abscess formation 07/30 Wound vac exchange 07/27 s/p excisional debridement with vac change of torso and abdomen 07/24 s/p wide excisional debridement of soft tissue infection with VAC placement for necrotizing soft tissue infection of abdomen, right hip area right torso area measuring approximately 32 x 18 inches x 2 inches deep. Surgery -Dr. Dumont. s/p debridement and wound VAC change 08/05/[address] Dumont Heme: Monitor CBC, transfuse PRBC as needed Transfuse 1 unit PRBC Endocrine: Levothyroxine 112 mcg/day on hold. TSH:0.08 on 07/24 Glucose monitoring per ICU protocol. -- Continue SSI medium scale for glycemic control MSK: Dry gangrene setting in of toes on right- Likely pressors induced ischemia of toes. Seen by vascular surg- no additional vascular work up needed given palpable pulses, Prophylaxis: GI Prophylaxis Famotidine DVT Prophylaxis SCDs. Chemical DVT prophylaxis when cleared by Dr. Dumont-susanne due to anemia requiring transfusion Lines: Central line placed on 07/22 DCd 08/05/17. Peripheral IVs 2, New right subclavian central line placed 08/06/17-heading to L subclavian. Place new central line if persistent pressor requirement Planning wound VAC change as well as tracheostomy scheduled for 08/09 in the OR. CCT 35 MIN excluding procedures Tracey Meza MD August 09, 2017 11:26
--- NOTE | 2017-08-09 12:27 | RADRPT ---
EXAM DATE/TIME: 08/09/2017 11:40 [facility] COMPARISON: CHEST SINGLE AP, August 06, 2017, 1:31. INDICATIONS : Respiratory Failure. MEDICAL HISTORY : Hypertension. Diabetes SURGICAL HISTORY : Hysterectomy. ENCOUNTER: Subsequent ACUITY: 3 weeks PAIN SCORE: Non-responsive. LOCATION: Bilateral chest FINDINGS: Endotracheal tube is in stable position just above the raoul. Nasogastric tube has been partially pulled back. Its tip is located just below the level of the leola a. Right subclavian central venous catheter is unchanged in position. Its tip extends from the right sub clavian vein into the left subclavian vein. Persistent left basilar airspace disease without signific ant improvement is noted. CONCLUSION: 1. Position of support devices as described above. Nasogastric tube now resides within the mid esopha shweta. 2. Persistent left basilar airspace disease. 3. No other significant change. Osmel Noonan MD on August 09, 2017 at 12:24 Board Certified Radiologist. This report was verified electronically.
--- NOTE | 2017-08-09 14:28 | HHI.HCPN ---
Reason for visit a. To assist with evaluation and management of symptoms including: pain, dyspnea. b. To assist medical decision maker(s) with: better understanding of current medical conditions; weighing benefits/burdens of medical treatment options; making medical treatment decisions. . Subjective/Interval History No significant change. No obvious pain. She is being prepared to go back to the OR today for more debridement and tracheostomy. White count is 17, new chest x-ray reveals persistent basilar airspace disease. . Advance Directives Durable Power of Shipping And Receiving: Copy in medical record Advance Directive Specifics Date completed: An incomplete (only pages 2 and 3 of a 3 page document were avialable) and it did not specify health care decision making. . Health Care Surrogate(s): Mr. Felipe Nagy was given POA but the POA document did not specify health care decision making. . Documented care wishes: There is no written documentation of health care goals/preferences. . Objective Vital Signs Date Time Temp Pulse Resp B/P (MAP) Pulse Ox O2 Delivery O2 Flow Rate FiO2 08/09/17 12:00 35 08/09/17 12:00 98.1 74 19 115/67 (83) 99 08/09/17 12:00 74 08/09/17 11:15 99 35 08/09/17 11:00 59 14 91/60 (70) 99 08/09/17 11:00 59 08/09/17 10:00 63 17 115/73 (87) 99 08/09/17 10:00 63 08/09/17 09:00 59 14 119/67 (84) 100 08/09/17 09:00 59 08/09/17 08:00 98.5 74 16 137/61 (86) 100 08/09/17 08:00 35 08/09/17 08:00 74 08/09/17 07:29 99 35 08/09/17 07:00 60 08/09/17 07:00 60 16 101/58 (72) 99 08/09/17 06:00 73 08/09/17 05:18 97 35 08/09/17 04:00 35 08/09/17 04:00 98.1 69 21 120/66 (84) 90 08/09/17 04:00 69 08/09/17 02:00 62 08/09/17 01:40 100 35 08/09/17 00:00 61 5/16/18 00:00 98.1 61 17 97/63 (74) 99 08/09/17 00:00 35 08/08/17 22:00 64 08/08/17 21:21 98 35 08/08/17 21:00 60 81/53 08/08/17 20:00 35 08/08/17 20:00 63 08/08/17 20:00 98.0 63 24 102/62 (75) 100 08/08/17 18:00 65 08/08/17 16:30 68 43 102/57 (72) 100 08/08/17 16:27 100 35 08/08/17 16:18 80 20 133/58 (83) 97 08/08/17 16:15 67 27 78/50 (59) 95 08/08/17 16:00 66 08/08/17 16:00 35 08/08/17 16:00 98.7 65 26 81/52 (62) 97 08/08/17 15:45 67 31 82/53 (63) 98 08/08/17 15:30 66 38 85/50 (62) 98 08/08/17 15:15 64 29 117/63 (81) 100 08/08/17 15:00 63 49 106/62 (77) 100 08/08/17 14:45 64 19 100/61 (74) 97 08/08/17 14:30 63 27 88/56 (67) 96 Intake & Output 08/09/17 08/09/17 07:00 19:00 Intake Total 1024 ml 100 ml Output Total 550 ml Balance 474 ml 100 ml IV Total 750 ml 100 ml Tube Feeding 154 ml Other 120 ml Output Urine Total 300 ml Drainage Total 250 ml # Bowel Movements 2 Physical Exam CONSTITUTIONAL/GENERAL: This is a chronically ill-appearing patient, sedated, intubated, mechanically ventilated in the MICU. Does not open her eyes for me and is not able to follow commands. TUBES/LINES/DRAINS: Wound vac, left subclavian central line; Peripheral IV; ET tube, scales. SKIN: Large right sided wound s/p debridment with wound vac from right thigh all the way up torso to below axillary area, and around the back nearly to the midline in the mid thoracic area. ENT: . Nose without bleeding or purulent drainage. ET tube in place. Dried blood on lips. CARDIOVASCULAR: Regular rate and rhythm without murmurs, gallops, or rubs. No JVD. RESPIRATORY/CHEST: Symmetric, unlabored respirations. Some scattered rhonchi are present bilateral. Breath sounds equal bilaterally. GASTROINTESTINAL: Abdomen soft, nondistended. No hepato-splenomegaly, or palpable masses. No guarding. Bowel sounds present. GENITOURINARY: Without palpable bladder distension. Scales catheter in place. MUSCULOSKELETAL: Extremities without clubbing, edema. Right foot toes are all ischemic with necrotic tips except for the great toe. NEUROLOGICAL: Intubated and sedated. Does not awaken to voice or exam. PSYCHIATRIC: Unable to examine . . Diagnostic Tests Laboratory Laboratory Tests Test 08/08/17 04:00 08/09/17 03:50 White Blood Count 15.0 TH/MM3 (4.0-11.0) 17.0 TH/MM3 (4.0-11.0) Red Blood Count 3.52 MIL/MM3 (4.00-5.30) 3.62 MIL/MM3 (4.00-5.30) Hemoglobin 9.5 GM/DL (11.6-15.3) 9.7 GM/DL (11.6-15.3) Hematocrit 29.1 % (35.0-46.0) 30.0 % (35.0-46.0) Mean Corpuscular Volume 82.8 FL (80.0-100.0) 82.8 FL (80.0-100.0) Mean Corpuscular Hemoglobin 26.9 PG (27.0-34.0) 26.7 PG (27.0-34.0) Mean Corpuscular Hemoglobin Concent 32.5 % (32.0-36.0) 32.2 % (32.0-36.0) Red Cell Distribution Width 15.7 % (11.6-17.2) 15.7 % (11.6-17.2) Platelet Count 459 TH/MM3 (150-450) 460 TH/MM3 (150-450) Mean Platelet Volume 6.0 FL (7.0-11.0) 5.8 FL (7.0-11.0) Neutrophils (%) (Auto) 78.7 % (16.0-70.0) 79.8 % (16.0-70.0) Lymphocytes (%) (Auto) 13.3 % (9.0-44.0) 12.0 % (9.0-44.0) Monocytes (%) (Auto) 4.8 % (0.0-8.0) 5.6 % (0.0-8.0) Eosinophils (%) (Auto) 2.0 % (0.0-4.0) 1.7 % (0.0-4.0) Basophils (%) (Auto) 1.2 % (0.0-2.0) 0.9 % (0.0-2.0) Neutrophils # (Auto) 11.8 TH/MM3 (1.8-7.7) 13.5 TH/MM3 (1.8-7.7) Lymphocytes # (Auto) 2.0 TH/MM3 (1.0-4.8) 2.0 TH/MM3 (1.0-4.8) Monocytes # (Auto) 0.7 TH/MM3 (0-0.9) 0.9 TH/MM3 (0-0.9) Eosinophils # (Auto) 0.3 TH/MM3 (0-0.4) 0.3 TH/MM3 (0-0.4) Basophils # (Auto) 0.2 TH/MM3 (0-0.2) 0.1 TH/MM3 (0-0.2) CBC Comment DIFF FINAL DIFF FINAL Differential Comment Blood Urea Nitrogen 8 MG/DL (7-18) 11 MG/DL (7-18) Creatinine 0.81 MG/DL (0.50-1.00) 0.78 MG/DL (0.50-1.00) Random Glucose 101 MG/DL (74-106) 88 MG/DL (74-106) Total Protein 5.0 GM/DL (6.4-8.2) 5.5 GM/DL (6.4-8.2) Albumin 1.4 GM/DL (3.4-5.0) 1.4 GM/DL (3.4-5.0) Calcium Level 8.1 MG/DL (8.5-10.1) 8.7 MG/DL (8.5-10.1) Alkaline Phosphatase 91 U/L (45-117) 95 U/L (45-117) Aspartate Amino Transf (AST/SGOT) 49 U/L (15-37) 47 U/L (15-37) Alanine Aminotransferase (ALT/SGPT) 40 U/L (10-53) 49 U/L (10-53) Total Bilirubin 0.4 MG/DL (0.2-1.0) 0.4 MG/DL (0.2-1.0) Sodium Level 140 MEQ/L (136-145) 141 MEQ/L (136-145) Potassium Level 3.2 MEQ/L (3.5-5.1) 3.9 MEQ/L (3.5-5.1) Chloride Level 106 MEQ/L (98-107) 106 MEQ/L (98-107) Carbon Dioxide Level 23.7 MEQ/L (21.0-32.0) 27.9 MEQ/L (21.0-32.0) Anion Gap 10 MEQ/L (5-15) 7 MEQ/L (5-15) Estimat Glomerular Filtration Rate 72 ML/MIN (>89) 75 ML/MIN (>89) Result Diagram: 08/09/17 0350 08/09/17 0350 Imaging Last Impressions Chest X-Ray 08/09/17 0000 Signed Impressions: Service Date/Time: Wednesday, August 09, 2017 11:40 - CONCLUSION: 1. Position of support devices as described above. Nasogastric tube now resides within the mid esophagus. 2. Persistent left basilar airspace disease. 3. No other significant change. Osmel Noonan MD Brain MRI 07/28/17 0000 Signed Impressions: Service Date/Time: Friday, July 28, 2017 14:38 - CONCLUSION: 1. Unremarkable MRI examination the brain. 2. No acute abnormality or interval change. Bob Daly MD Chest CT 07/24/17 0000 Signed Impressions: Service Date/Time: Monday, July 24, 2017 05:36 - CONCLUSION: 1. Stranding in the subcutaneous tissues about the right flank with fluid adjacent to the latissimus dorsi. Stranding extends up into the right breast. Findings could represent developing cellulitis. 2. In addition, there is now a small right-sided effusion with bilateral dependent atelectatic changes. Jerome Brady MD Abdomen/Pelvis CT 07/24/17 0000 Signed Impressions: Service Date/Time: Monday, July 24, 2017 05:36 - CONCLUSION: 1. CT findings concerning for a right sided cellulitis and developing myositis. There is some asymmetric prominence of the latissimus dorsi muscle on the right. Unorganized fluid in the deep subcutaneous tissues adjacent to the muscle belly. No drainable fluid collection, however. 2. Developing dependent areas of consolidation, right greater than left with an associated small right-sided effusion. Jerome Brady MD Head CT 07/22/17 1253 Signed Impressions: Service Date/Time: Saturday, July 22, 2017 13:26 - CONCLUSION: No acute disease. Derrick Henry MD Procedures INTUBATION Debridement/wound VAC Second debridement/wound VAC 08/05/17 . Assessment and Plan Disease Oriented Problem List: (1) Severe sepsis (2) Abdominal wall cellulitis Comment: required debridement of necrotizing tissue. (3) Acute kidney injury Comment: Improved (4) DM (diabetes mellitus) Symptom Scale: (1) Dyspnea 0-10 Scale: Unable to quantify (2) Pain 0-10 Scale: Unable to quantify Comment: No known pre-hospitalization pain syndromes. Current sources of pain probably include large wound; prolonged bedbound status; scales cathter; vascular access lines; restraints; ET tube. . Pertinent Non-Medical Issues Psychosocial:developmental delay, Spiritual: Has not belong to any particular gemma group. Per her partner, she has been recently interested in scientology oriented audio cassettes Legal: Mr. Nagy brought in part of a POA document signed by the patient; he is the current healthcare proxy since no family could be found Ethical issues impacting care: Patient is incapacitated. . Important Contacts Felipe Nagy reported POA. [phone] . Prognosis 62 year old female with severe sepsis, due to large right sided necrotizing wound + for MRSA. Remains critically ill and has had recurrent hypotension/ sepsis, and she is progressively more debilitated and malnourished. Prognosis is guarded. Her large, complicated wound may require weeks more of hospitalization . Pt's developmental delays may hinder pt's ability to convalesce. . . Code Status: Full Code Plan == Code Status : Full Code == Decision Making: Patient is incapacitated to make her own health care decisions with no reasonable hope of recovering capacity. Mr. Nagy had self identified as her "guardian" and "power of trade mark attorney." There is only POA paperwork; Mr. Nagy has been a "close personal friend" regularly attending all of her outpatient physician appointments with the patient. Until such time as other family members present themselves or we are given contact information for other surviving family members, Mr. Nagy will remain the legal proxy for health care decisions. ==Goals of medical treatment: Patient never completed an advance directive nor had conversations regarding what she would want or not want if she were to become critically ill like this. Mr. Nagy feels the patient would certainly want to continue fighting at this time. Goals at this time continue to be aggressive. == Symptoms (see symptoms above) * dyspnea: managed with mechanical ventilation * pain- Multiple sources of discomfort including -- , extensive right sided wound; repeated debridements and wound vac changes; prolonged bedbound status ; etc. Currently being managed with fentanyl drip with adequate results. * Intermittent Agitation -remains on Versed infusion now == Plan * Mr. Nagy has thus far been unable to find any information regarding the possibility of any patient's surviving relatives. * In the meantime, Mr. Nagy will continue to function as the health care proxy as he has demonstrated concern and interest over the years and has appeared to be advocating for her appropriately.... and we have access to no alternatives. == Palliative car will continue to follow to assist with symptom management and to further clarify goals of medical treatment as the clinical course evolves. . Time Spent Total Floor Time (mins): 27 Face to Face Time (mins): 11 >50% Counseling/Coord of Care: Yes Eva Hopkins MD August 09, 2017 14:28
--- NOTE | 2017-08-09 14:52 | HHI.PR ---
cc: Tip Dumont MD Subjective Subjective Notes Intubated RN at bedside Objective Vitals/I&O Vital Signs Date Time Temp Pulse Resp B/P (MAP) Pulse Ox O2 Delivery O2 Flow Rate FiO2 08/09/17 12:00 35 08/09/17 12:00 98.1 74 19 115/67 (83) 99 Labs Laboratory Tests Test 08/09/17 03:50 White Blood Count 17.0 Red Blood Count 3.62 Hemoglobin 9.7 Hematocrit 30.0 Mean Corpuscular Volume 82.8 Mean Corpuscular Hemoglobin 26.7 Mean Corpuscular Hemoglobin Concent 32.2 Red Cell Distribution Width 15.7 Platelet Count 460 Mean Platelet Volume 5.8 Neutrophils (%) (Auto) 79.8 Lymphocytes (%) (Auto) 12.0 Monocytes (%) (Auto) 5.6 Eosinophils (%) (Auto) 1.7 Basophils (%) (Auto) 0.9 Neutrophils # (Auto) 13.5 Lymphocytes # (Auto) 2.0 Monocytes # (Auto) 0.9 Eosinophils # (Auto) 0.3 Basophils # (Auto) 0.1 CBC Comment DIFF FINAL Differential Comment Blood Urea Nitrogen 11 Creatinine 0.78 Random Glucose 88 Total Protein 5.5 Albumin 1.4 Calcium Level 8.7 Alkaline Phosphatase 95 Aspartate Amino Transf (AST/SGOT) 47 Alanine Aminotransferase (ALT/SGPT) 49 Total Bilirubin 0.4 Sodium Level 141 Potassium Level 3.9 Chloride Level 106 Carbon Dioxide Level 27.9 Anion Gap 7 Estimat Glomerular Filtration Rate 75 Date/Time Source Procedure Growth Status 08/06/17 00:43 Blood Peripheral Aerobic Blood Culture - Preliminary NO GROWTH IN 3 DAYS Resulted 08/06/17 00:43 Blood Peripheral Anaerobic Blood Culture - Final QNS - SEE AEROBE REPORT Resulted 08/05/17 05:40 Sputum Endotracheal Gram Stain - Final Complete 08/05/17 05:40 Sputum Culture - Final Pseudomonas Aeruginosa Klebsiella Pneumoniae Complete 08/04/17 22:08 Urine Catheterized Urine Urine Culture - Final Klebsiella Pneumoniae Pseudomonas Aeruginosa Complete 07/27/17 15:30 Wound Other Fungal Smear - Final NO FUNGAL ELEMENTS SEEN. Resulted 07/27/17 15:30 Wound Other Fungal Culture - Preliminary NO GROWTH IN 1 WEEK Resulted Cardiovascular: Regular Lungs: Clear Abdomen: Other (large wound vac over RIGHT abdomen; RIGHT flank; RIGHT back--- connected to wall suction ) Extremities: Other (mild edema ) Narrative Exam necrotic appearing toes of RIGHT foot A/P Assessment and Plan 62 year old female with extensive soft tissue infection -s/p I&D of wound; wound vac placement and trach; going back to OR tomorrow -Resume tube feeding and NPO after MN -Obtain consents -Will need evaluation by Plastic Surgery at some point for skin graft Attending Statement patient seen at bedside continue or vac changes plastic eval soon Attestation The exam, history, and the medical decision-making described in the above note were completed with the assistance of the mid-level provider. I reviewed and agree with the findings presented. I attest that I had a [id number] encounter with the patient on the same day, and personally performed and documented my assessment and findings in the medical record. Batool Meneses/Aircraft Motor Mechanic MEIR August 09, 2017 14:52 Tip Dumont MD August 14, 2017 04:29
--- NOTE | 2017-08-09 15:05 | HHI.IDPN ---
Subjective Subjective Remarks Most of the history was obtained by review of medical records. Patient shortly being wheeled out to the operating room for surgical exploration of the site of necrotizing fasciitis Septic shock. Ms. Eldridge is a 62-year-old female who reportedly has developmental delays per chart review. Patient presented to the emergency department via EMS for evaluation of right-sided abdominal, flank and back erythema swelling and pain. Patient's care provider and power of attorney law clerk listed on the chart is Mr. Felipe Nagy who can be contacted at [phone]. Patient had earlier reported to others that she was feeling unwell for the past 4 weeks. Patient reported increase in her migraine symptoms. Patient also reported continuous, nonradiating sharps times burning pain over the right upper quadrant that is expanded to include her right flank and back. She denies any trauma to these areas. Patient reported to others prior to being intubated that she had nausea and vomiting associated with decreased appetite. Patient also had reported to others that she was dizzy and lightheaded. Per review of records it appears that patient has had multiple falls as well as has had urinary incontinence at baseline with decreased urine output over the last few days. Patient also reported subjective symptoms such as burning with urination. Per EMS, patient was found to be hypotensive. Systolic pressure was recorded in the 70s. She received fluid in transit with minimal improvement. In the emergency department she was found to have significant erythema,pain and edema from approximately the fifth intercostal space down to the eighth or ninth intercostal space wrapping around from the midline in the back all the way around to just medial to the breast. CT scan of the abdomen and pelvis confirms significant subcutaneous edema, but this area of edema appears to be contained by intact fascial planes, particularly in the midline of the back. Laboratory evidence is significant for a white blood cell count of 27k, creatinine is 3.58, potassium 5.4, bicarb of 17.9, anion gap elevated at 15, BUN of 64, an initial lactate of 5.1. In the emergency department she received 3 L of crystalloid IV fluids. Critical care medicine is consulted to evaluate manage her presumed septic shock secondary to severe cellulitis of the trunk. Overnight critical care medicine was consulted for worsening sepsis and septic shock. Patient had to be intubated and upon evaluation was found to have evidence suggestive of necrotizing fasciitis involving similar areas as reported on the emergency room but had progressed beyond the line of demarcation. Patient was noted to have significant blisters and blackening of the areas. Critical care medicine change the regimen to Zosyn IV, vancomycin IV and added clindamycin IV and placed a surgical consult. Patient was evaluated by Dr. Thro Dumont of surgery and patient is being wheeled to the operating room shortly. At the time of my evaluation patient is in the ICU currently on high-dose Levophed as well as vasopressin with slight decrease in Levophed requirement after addition of clindamycin IV. Urine output is low. No diarrhea. No diffuse rash or skin changes other than as described. Delayed entry Notes reviewed. Sedated on the vent. Not on pressors. Secretions plus. Temps ok No rash no diarrhea Plan for OR today for wound vac change and Trach placement. Antibiotics Dapto IV Zosyn IV Clinda IV Micafungin IV Lines Line sites with no e.o infection Past Medical History Anxiety Depression Developmental delays - mental handicap Headaches/migraines Hypothyroidism GERD Chest pain Hx of UTIs Renal insufficiency Bladder incontinence Chronic back pain Thyroid surgery EGD - 08/30/16 Cholecystectomy - 03/04/15 D&C Hysterectomy Colonoscopy - 07/30/16 and 08/11/15 Allergies: Coded Allergies: No Known Allergies (Verified Allergy, Unknown, 07/22/17) Objective . Vital Signs Date Time Temp Pulse Resp B/P (MAP) Pulse Ox O2 Delivery O2 Flow Rate FiO2 08/09/17 12:00 35 08/09/17 12:00 98.1 74 19 115/67 (83) 99 08/09/17 12:00 74 08/09/17 11:15 99 35 08/09/17 11:00 59 14 91/60 (70) 99 08/09/17 11:00 59 08/09/17 10:00 63 17 115/73 (87) 99 08/09/17 10:00 63 08/09/17 09:00 59 14 119/67 (84) 100 08/09/17 09:00 59 08/09/17 08:00 98.5 74 16 137/61 (86) 100 08/09/17 08:00 35 08/09/17 08:00 74 08/09/17 07:29 99 35 08/09/17 07:00 60 08/09/17 07:00 60 16 101/58 (72) 99 08/09/17 06:00 73 08/09/17 05:18 97 35 08/09/17 04:00 35 08/09/17 04:00 98.1 69 21 120/66 (84) 90 08/09/17 04:00 69 08/09/17 02:00 62 08/09/17 01:40 100 35 08/09/17 00:00 61 08/09/17 00:00 98.1 61 17 97/63 (74) 99 08/09/17 00:00 35 08/08/17 22:00 64 08/08/17 21:21 98 35 08/08/17 21:00 60 81/53 08/08/17 20:00 35 08/08/17 20:00 63 08/08/17 20:00 98.0 63 24 102/62 (75) 100 08/08/17 18:00 65 08/08/17 16:30 68 43 102/57 (72) 100 08/08/17 16:27 100 35 08/08/17 16:18 80 20 133/58 (83) 97 08/08/17 16:15 67 27 78/50 (59) 95 08/08/17 16:00 66 08/08/17 16:00 35 08/08/17 16:00 98.7 65 26 81/52 (62) 97 08/08/17 15:45 67 31 82/53 (63) 98 08/08/17 15:30 66 38 85/50 (62) 98 08/08/17 15:15 64 29 117/63 (81) 100 08/09/17 08/09/17 08/10/17 15:00 23:00 07:00 Intake Total 100 ml Balance 100 ml IV Total 100 ml . Laboratory Tests Test 08/08/17 04:00 08/09/17 03:50 White Blood Count 15.0 TH/MM3 17.0 TH/MM3 Red Blood Count 3.52 MIL/MM3 3.62 MIL/MM3 Hemoglobin 9.5 GM/DL 9.7 GM/DL Hematocrit 29.1 % 30.0 % Mean Corpuscular Volume 82.8 FL 82.8 FL Mean Corpuscular Hemoglobin 26.9 PG 26.7 PG Mean Corpuscular Hemoglobin Concent 32.5 % 32.2 % Red Cell Distribution Width 15.7 % 15.7 % Platelet Count 459 TH/MM3 460 TH/MM3 Mean Platelet Volume 6.0 FL 5.8 FL Neutrophils (%) (Auto) 78.7 % 79.8 % Lymphocytes (%) (Auto) 13.3 % 12.0 % Monocytes (%) (Auto) 4.8 % 5.6 % Eosinophils (%) (Auto) 2.0 % 1.7 % Basophils (%) (Auto) 1.2 % 0.9 % Neutrophils # (Auto) 11.8 TH/MM3 13.5 TH/MM3 Lymphocytes # (Auto) 2.0 TH/MM3 2.0 TH/MM3 Monocytes # (Auto) 0.7 TH/MM3 0.9 TH/MM3 Eosinophils # (Auto) 0.3 TH/MM3 0.3 TH/MM3 Basophils # (Auto) 0.2 TH/MM3 0.1 TH/MM3 CBC Comment DIFF FINAL DIFF FINAL Differential Comment Laboratory Tests Test 08/08/17 04:00 08/09/17 03:50 Blood Urea Nitrogen 8 MG/DL 11 MG/DL Creatinine 0.81 MG/DL 0.78 MG/DL Random Glucose 101 MG/DL 88 MG/DL Total Protein 5.0 GM/DL 5.5 GM/DL Albumin 1.4 GM/DL 1.4 GM/DL Calcium Level 8.1 MG/DL 8.7 MG/DL Alkaline Phosphatase 91 U/L 95 U/L Aspartate Amino Transf (AST/SGOT) 49 U/L 47 U/L Alanine Aminotransferase (ALT/SGPT) 40 U/L 49 U/L Total Bilirubin 0.4 MG/DL 0.4 MG/DL Sodium Level 140 MEQ/L 141 MEQ/L Potassium Level 3.2 MEQ/L 3.9 MEQ/L Chloride Level 106 MEQ/L 106 MEQ/L Carbon Dioxide Level 23.7 MEQ/L 27.9 MEQ/L Anion Gap 10 MEQ/L 7 MEQ/L Estimat Glomerular Filtration Rate 72 ML/MIN 75 ML/MIN Imaging Chest X-Ray 07/30/17 0000 Signed Impressions: Service Date/Time: Sunday, July 30, 2017 08:14 - CONCLUSION: Underinflation with atelectasis at the lung bases. Otherwise, no acute finding is seen given the technique. Derrick García MD Brain MRI 07/28/17 0000 Signed Impressions: Service Date/Time: Friday, July 28, 2017 14:38 - CONCLUSION: 1. Unremarkable MRI examination the brain. 2. No acute abnormality or interval change. Bob Daly MD Chest CT 07/24/17 0000 Signed Impressions: Service Date/Time: Monday, July 24, 2017 05:36 - CONCLUSION: 1. Stranding in the subcutaneous tissues about the right flank with fluid adjacent to the latissimus dorsi. Stranding extends up into the right breast. Findings could represent developing cellulitis. 2. In addition, there is now a small right-sided effusion with bilateral dependent atelectatic changes. Jerome Brady MD Abdomen/Pelvis CT 07/24/17 0000 Signed Impressions: Service Date/Time: Monday, July 24, 2017 05:36 - CONCLUSION: 1. CT findings concerning for a right sided cellulitis and developing myositis. There is some asymmetric prominence of the latissimus dorsi muscle on the right. Unorganized fluid in the deep subcutaneous tissues adjacent to the muscle belly. No drainable fluid collection, however. 2. Developing dependent areas of consolidation, right greater than left with an associated small right-sided effusion. Jerome Brady MD Head CT 07/22/17 1253 Signed Impressions: Service Date/Time: Saturday, July 22, 2017 13:26 - CONCLUSION: No acute disease. Derrick Henry MD Physical Exam GENERAL: Sedated on the vent, NAD. On CPAP SKIN: No generalized rash. Dry, cool extremities HEAD: Atraumatic. Normocephalic. No temporal or scalp tenderness. EYES: Pupils equal round and reactive. Extraocular motions intact. No scleral icterus. No injection or drainage. ENT: Intubated. Moist mucosa NECK: Trachea midline. Supple, nontender, no meningeal signs. CARDIOVASCULAR: Heart sounds audible. No murmur appreciated. RESPIRATORY: Clear to auscultation. Breath sounds equal bilaterally. No wheezes , rales, or rhonchi. GASTROINTESTINAL: Abdomen soft. Wound vac area noted. Extensive area covered with wound vac sponge, output serosanguineous. Area appears extended since last seen upto midline on the back. MUSCULOSKELETAL: Extremities without clubbing, cyanosis. Some pedal edema. Ischemic toes R foot 2-4 toes and tip of 5th toe, no change. Cool feet NEUROLOGICAL: Sedated. Psych could not be assessed IV line sites with no e.o infection Assessment & Plan Remarks Septic shock with multiorgan dysfunction syndrome Sepsis present on admission Necrotizing fasciitis of the abdominal wall ? History of multiple falls likely the precipitant. PSAE and Kleb pneumo pneumonia. PSAE and kleb in urine ? contamination as 2 organisms. Acute rhabdomyolysis Acute renal failure: Prerenal, sepsis, rhabdomyolysis Acute metabolic encephalopathy likely sepsis related. Baseline unknown Leukocytosis, lower today - nothing new on C/S; last OR C/S MRSA - could be reactive from last OR Recommendations: Continue Dapto IV (Vanco DELMI 2, clinically still has new areas of erythema and e /o infection outside wound vac margin, acute renal failure) continue Zosyn IV DC Micafungin IV pending finalization of cultures. Continue Clindamycin IV will dw surgery and decide in am about continuing need. Follow cultures to adjust antibiotics. Follow clinically. PEG placement may be a challenge as the wound area appears progressed last few days. dw Surgery Ellen Ríos MD August 09, 2017 15:05
[2017-08-09] MEDS: SODIUM CHLORIDE 0.9% IV SCH (18:35)
[2017-08-09] MEDS: DAPTOMYCIN IV SCH (18:35)
[2017-08-09] MEDS: traMADol HCL 50 MG TAB PO PRN (20:45)
[2017-08-10] VITALS (16 sets, daily range): BP systolic 150–168; BP diastolic 78–102; PULSE 61–94; RESP 12–28; TEMP 95–99.5; O2SAT 91–100
[2017-08-10] MEDS: PIPERACIL-TAZO 4.5 GM PREMIX 100 ML IV SCH ×4 (00:16→23:23)
[2017-08-10] MEDS: INSULIN NovoLIN REGULAR SUPPLEMENTAL SCALE SQ SCH ×7 (03:23→23:23)
[2017-08-10] MEDS: FREE WATER G-TUBE SCH ×4 (03:23→19:19)
[2017-08-10] MEDS: DILTIAZEM HCL 60 MG TAB PO SCH ×5 (03:24→23:23)
[2017-08-10] MEDS: CLINDAMYCIN 900 MG/NS PREMIX 50 ML IV SCH ×2 (03:55→20:18)
[2017-08-10] MEDS: DOCUSATE SODIUM 50 MG/SENNA 8.6 MG TAB PO SCH ×2 (07:06→19:19)
[2017-08-10] MEDS: MULTIVITAMIN-OPHTHALMIC 1 TAB PO SCH (08:12)
[2017-08-10] MEDS: SODIUM CHLORIDE 0.9% FLUSH 10 ML FLUSH IV FLUSH SCH ×2 (08:12→20:18)
[2017-08-10] MEDS: FAMOTIDINE 20 MG TAB PO SCH ×2 (08:12→20:18)
[2017-08-10] MEDS: CHLORHEXIDINE 0.12% (ORAL KIT) 15 ML CUP MT SCH ×2 (08:13→20:18)
[2017-08-10] MEDS: CALCIUM/VITAMIN D 250 MG/125 U TAB PO SCH (08:13)
[2017-08-10] MEDS: fentaNYL DRIP 250 ML IV PRN (09:14)
[2017-08-10] MEDS ORDERED: LACTATED RINGER'S 1000 ML INJ 1,000 ML IV ONE (12:00)
[2017-08-10] MEDS ORDERED: ROCURONIUM INJ 50 MG/5 ML SYRINGE IV PUSH ONE (12:00)
[2017-08-10] MEDS ORDERED: ePHEDrine/NS 25 MG/5 ML SYRINGE IV ONE (12:00)
--- NOTE | 2017-08-10 13:08 | HHI.PR ---
Immediate Post Op Note Procedure Date: August 10, 2017 Pre Op Diagnosis: necrotizing soft tissue infection of right torso, back, abdomen [id number], prolonged ventilator failure Post Op Diagnosis: same Surgeon: Tip Dumont MD Sawmill Worker(s): jv Procedure: vac change, perc trach Findings: good position of trach, healthy granulation tissue Complications: none Specimen(s) removed: none Estimated blood loss: 15cc Anesthesia: General Drains: Hemovac Patient to: PACU Patient Condition: Good Tip Dumont MD August 10, 2017 13:08
[2017-08-10] MEDS ORDERED: MIDAZOLAM HCL 2 MG/2 ML VIAL ONE (14:06)
--- NOTE | 2017-08-10 14:46 | HHI.HCPN ---
Reason for visit a. To assist with evaluation and management of symptoms including: pain, dyspnea. b. To assist medical decision maker(s) with: better understanding of current medical conditions; weighing benefits/burdens of medical treatment options; making medical treatment decisions. . Subjective/Interval History No significant change. No obvious pain. She was taken back to the OR yesterday for more debridement and tracheostomy; the RN reports that she was told things look a bit better and that there was less necrotic tissue to debride.. White count is 17. Tmax 99.4. . Family/friend interactions Attempted to call HCP Mr. Nagy X 2 with no answer.. . Advance Directives Durable Power of Sanding Machine Operator Or Tender: Copy in medical record Advance Directive Specifics Date completed: An incomplete (only pages 2 and 3 of a 3 page document were avialable) and it did not specify health care decision making. . Health Care Surrogate(s): Mr. Felipe Nagy was given POA but the POA document did not specify health care decision making. . Documented care wishes: There is no written documentation of health care goals/preferences. . Objective Vital Signs Date Time Temp Pulse Resp B/P (MAP) Pulse Ox O2 Delivery O2 Flow Rate FiO2 08/10/17 14:00 61 08/10/17 10:00 81 08/10/17 08:49 99 35 08/10/17 08:15 79 23 151/78 (102) 99 08/10/17 08:00 35 08/10/17 08:00 94 08/10/17 08:00 94 28 168/102 (124) 98 08/10/17 08:00 98.9 94 12 168/102 (124) 99 08/10/17 06:00 92 08/10/17 04:03 99 35 08/10/17 04:00 90 08/10/17 04:00 35 08/10/17 04:00 99.5 90 16 159/93 (115) 99 08/10/17 02:00 93 08/10/17 00:00 35 08/10/17 00:00 94 08/10/17 00:00 99.4 94 17 150/90 (110) 99 08/09/17 23:09 99 35 08/09/17 22:00 94 08/09/17 20:00 97 08/09/17 20:00 99.1 97 32 145/64 (91) 99 08/09/17 20:00 35 08/09/17 19:30 98 35 08/09/17 18:00 69 21 120/71 (87) 98 08/09/17 18:00 69 08/09/17 17:00 77 25 146/66 (92) 99 08/09/17 17:00 77 08/09/17 16:00 35 08/09/17 16:00 78 08/09/17 16:00 78 28 130/77 (94) 99 08/09/17 15:29 98 35 08/09/17 15:00 77 08/09/17 15:00 77 21 136/65 (88) 98 Intake & Output 08/10/17 08/10/17 07:00 19:00 Intake Total 494 ml Output Total 450 ml Balance 44 ml IV Total 405 ml Tube Feeding 89 ml Output Urine Total 450 ml # Bowel Movements 1 Physical Exam CONSTITUTIONAL/GENERAL: This is a chronically ill-appearing patient, sedated, intubated, mechanically ventilated in the MICU. TUBES/LINES/DRAINS: Wound vac, left subclavian central line; Peripheral IV; ET tube, scales. SKIN: Large right sided wound s/p debridement with wound vac from right thigh all the way up torso to below axillary area, and around the back nearly to the midline in the mid thoracic area. ENT: . Nose without bleeding or purulent drainage. ET tube in place. Dried blood on lips. CARDIOVASCULAR: Regular rate and rhythm without murmurs, gallops, or rubs. No JVD. RESPIRATORY/CHEST: Symmetric, unlabored respirations. Some scattered rhonchi are present bilateral. Breath sounds equal bilaterally. GASTROINTESTINAL: Abdomen soft, nondistended. No hepato-splenomegaly, or palpable masses. No guarding. Bowel sounds present. GENITOURINARY: Without palpable bladder distension. Scales catheter in place. MUSCULOSKELETAL: Extremities without clubbing, edema. Right foot toes are all ischemic with necrotic tips except for the great toe. NEUROLOGICAL: Intubated and sedated. Does not awaken to voice or exam. PSYCHIATRIC: Unable to evaluate due to clinical condition . . Diagnostic Tests Laboratory Laboratory Tests Test 08/08/17 04:00 08/09/17 03:50 White Blood Count 15.0 TH/MM3 (4.0-11.0) 17.0 TH/MM3 (4.0-11.0) Red Blood Count 3.52 MIL/MM3 (4.00-5.30) 3.62 MIL/MM3 (4.00-5.30) Hemoglobin 9.5 GM/DL (11.6-15.3) 9.7 GM/DL (11.6-15.3) Hematocrit 29.1 % (35.0-46.0) 30.0 % (35.0-46.0) Mean Corpuscular Volume 82.8 FL (80.0-100.0) 82.8 FL (80.0-100.0) Mean Corpuscular Hemoglobin 26.9 PG (27.0-34.0) 26.7 PG (27.0-34.0) Mean Corpuscular Hemoglobin Concent 32.5 % (32.0-36.0) 32.2 % (32.0-36.0) Red Cell Distribution Width 15.7 % (11.6-17.2) 15.7 % (11.6-17.2) Platelet Count 459 TH/MM3 (150-450) 460 TH/MM3 (150-450) Mean Platelet Volume 6.0 FL (7.0-11.0) 5.8 FL (7.0-11.0) Neutrophils (%) (Auto) 78.7 % (16.0-70.0) 79.8 % (16.0-70.0) Lymphocytes (%) (Auto) 13.3 % (9.0-44.0) 12.0 % (9.0-44.0) Monocytes (%) (Auto) 4.8 % (0.0-8.0) 5.6 % (0.0-8.0) Eosinophils (%) (Auto) 2.0 % (0.0-4.0) 1.7 % (0.0-4.0) Basophils (%) (Auto) 1.2 % (0.0-2.0) 0.9 % (0.0-2.0) Neutrophils # (Auto) 11.8 TH/MM3 (1.8-7.7) 13.5 TH/MM3 (1.8-7.7) Lymphocytes # (Auto) 2.0 TH/MM3 (1.0-4.8) 2.0 TH/MM3 (1.0-4.8) Monocytes # (Auto) 0.7 TH/MM3 (0-0.9) 0.9 TH/MM3 (0-0.9) Eosinophils # (Auto) 0.3 TH/MM3 (0-0.4) 0.3 TH/MM3 (0-0.4) Basophils # (Auto) 0.2 TH/MM3 (0-0.2) 0.1 TH/MM3 (0-0.2) CBC Comment DIFF FINAL DIFF FINAL Differential Comment Blood Urea Nitrogen 8 MG/DL (7-18) 11 MG/DL (7-18) Creatinine 0.81 MG/DL (0.50-1.00) 0.78 MG/DL (0.50-1.00) Random Glucose 101 MG/DL (74-106) 88 MG/DL (74-106) Total Protein 5.0 GM/DL (6.4-8.2) 5.5 GM/DL (6.4-8.2) Albumin 1.4 GM/DL (3.4-5.0) 1.4 GM/DL (3.4-5.0) Calcium Level 8.1 MG/DL (8.5-10.1) 8.7 MG/DL (8.5-10.1) Alkaline Phosphatase 91 U/L (45-117) 95 U/L (45-117) Aspartate Amino Transf (AST/SGOT) 49 U/L (15-37) 47 U/L (15-37) Alanine Aminotransferase (ALT/SGPT) 40 U/L (10-53) 49 U/L (10-53) Total Bilirubin 0.4 MG/DL (0.2-1.0) 0.4 MG/DL (0.2-1.0) Sodium Level 140 MEQ/L (136-145) 141 MEQ/L (136-145) Potassium Level 3.2 MEQ/L (3.5-5.1) 3.9 MEQ/L (3.5-5.1) Chloride Level 106 MEQ/L (98-107) 106 MEQ/L (98-107) Carbon Dioxide Level 23.7 MEQ/L (21.0-32.0) 27.9 MEQ/L (21.0-32.0) Anion Gap 10 MEQ/L (5-15) 7 MEQ/L (5-15) Estimat Glomerular Filtration Rate 72 ML/MIN (>89) 75 ML/MIN (>89) Result Diagram: 08/09/17 0350 08/09/17 0350 Imaging Last Impressions Chest X-Ray 08/09/17 0000 Signed Impressions: Service Date/Time: Wednesday, August 09, 2017 11:40 - CONCLUSION: 1. Position of support devices as described above. Nasogastric tube now resides within the mid esophagus. 2. Persistent left basilar airspace disease. 3. No other significant change. Osmel Noonan MD Brain MRI 07/28/17 0000 Signed Impressions: Service Date/Time: Friday, July 28, 2017 14:38 - CONCLUSION: 1. Unremarkable MRI examination the brain. 2. No acute abnormality or interval change. Bob Daly MD Chest CT 07/24/17 0000 Signed Impressions: Service Date/Time: Monday, July 24, 2017 05:36 - CONCLUSION: 1. Stranding in the subcutaneous tissues about the right flank with fluid adjacent to the latissimus dorsi. Stranding extends up into the right breast. Findings could represent developing cellulitis. 2. In addition, there is now a small right-sided effusion with bilateral dependent atelectatic changes. Jerome Brady MD Abdomen/Pelvis CT 07/24/17 0000 Signed Impressions: Service Date/Time: Monday, July 24, 2017 05:36 - CONCLUSION: 1. CT findings concerning for a right sided cellulitis and developing myositis. There is some asymmetric prominence of the latissimus dorsi muscle on the right. Unorganized fluid in the deep subcutaneous tissues adjacent to the muscle belly. No drainable fluid collection, however. 2. Developing dependent areas of consolidation, right greater than left with an associated small right-sided effusion. Jerome Brady MD Head CT 07/22/17 1253 Signed Impressions: Service Date/Time: Saturday, July 22, 2017 13:26 - CONCLUSION: No acute disease. Derrick Henry MD Procedures INTUBATION Debridement/wound VAC Second debridement/wound VAC 08/05/17 Third debridement/wound VAC 08/10/17 Tracheostomy 08/10/17 . Assessment and Plan Disease Oriented Problem List: (1) Severe sepsis (2) Abdominal wall cellulitis Comment: required debridement of necrotizing tissue. (3) Acute kidney injury Comment: Improved (4) DM (diabetes mellitus) Symptom Scale: (1) Dyspnea 0-10 Scale: Unable to quantify (2) Pain 0-10 Scale: Unable to quantify Comment: No known pre-hospitalization pain syndromes. Current sources of pain probably include large wound; prolonged bedbound status; scales cathter; vascular access lines; restraints; ET tube. . Pertinent Non-Medical Issues Psychosocial:developmental delay, Spiritual: Has not belong to any particular gemma group. Per her partner, she has been recently interested in sabianist oriented audio cassettes Legal: Mr. Nagy brought in part of a POA document signed by the patient; he is the current healthcare proxy since no family could be found Ethical issues impacting care: Patient is incapacitated. . Important Contacts Felipe Nagy reported POA. [phone] . Prognosis 62 year old female with severe sepsis, due to large right sided necrotizing wound + for MRSA. Remains critically ill and has had recurrent hypotension/ sepsis, and she is progressively more debilitated and malnourished. Prognosis is guarded. Her large, complicated wound may require weeks more of hospitalization . Pt's developmental delays may hinder pt's ability to convalesce. . . Code Status: Full Code Plan == Code Status : Full Code == Decision Making: Patient is incapacitated to make her own health care decisions and is very unlikely to recover capacity. Mr. Nagy had self identified as her "guardian" and "power of criminal attorney." There is only POA paperwork; Mr. Nagy has been a "close personal friend" regularly attending all of her outpatient physician appointments with the patient. Until such time as other family members present themselves or we are given contact information for other surviving family members, Mr. Nagy will remain the legal proxy for health care decisions. ==Goals of medical treatment: Patient never completed an advance directive nor had conversations regarding what she would want or not want if she were to become critically ill like this. Mr. Nagy feels the patient would certainly want to continue fighting at this time. Goals at this time continue to be aggressive. == Symptoms (see symptoms above) * dyspnea: managed with mechanical ventilation * pain- Multiple sources of discomfort including -- extensive right sided wound; repeated debridements and wound vac changes; prolonged bedbound status ; etc. Currently being managed with fentanyl drip with adequate results. * Intermittent Agitation - remains on Versed infusion == Plan * There's been no success in locating any of patient's surviving relatives. * In the meantime, Mr. Nagy will continue to function as the health care proxy as he has demonstrated concern and interest over the years and has appeared to be advocating for her appropriately.... and we have access to no alternatives. == Palliative car will continue to follow to assist with symptom management and to further clarify goals of medical treatment as the clinical course evolves. . Time Spent Total Floor Time (mins): 36 Face to Face Time (mins): 18 >50% Counseling/Coord of Care: Yes (d/w RN) Attestation To help prompt me to consider important information that might be impacting today's encounter and assessment, information from prior notes written by myself or my colleagues may have been "brought forward" into today's note. My signature on this note, however, is an attestation that I personally performed the exam, history, and/or decision-making noted today, and, unless otherwise indicated, the interactions with patient, family, and staff as well as the review of records all occurred today. I also attest that the listed assessment and stated plan reflect my best clinical judgment today based on the combination of historical information, prior notes, and today's exam/ interactions. When time spent is documented, it refers only to time spent today by the signer, or if indicated, combined time spent today by collaborating physician/nurse practitioner. Eva Hopkins MD August 10, 2017 14:46
--- NOTE | 2017-08-10 14:47 | HHI.CCPN ---
Subjective Remarks/Hospital Course This is a 62-year-old female with a history of developmental delay and recurrent urinary tract infections who presents with new onset right-sided abdominal and flank pain. Per the [facility] service admission note this is been going on for approximately 4 weeks. Patient has a history of developmental delay and is difficult to get a complete history from her, no analysis with her on my evaluation. On my evaluation she endorses flank pain radiating around to her chest. She endorses subjective chills. Denies recent fevers to me. Also endorses nausea, vomiting. In the emergency department she was found to have significant erythema, rubor, dolor, and edema from approximately the fifth intercostal space down to the eighth or ninth intercostal space wrapping around from the midline in the back all the way around to just medial to the breast. CT scan of the abdomen and pelvis confirms significant subcutaneous edema, but this area of edema appears to be contained by intact fascial planes, particularly in the midline of the back. Laboratory evidence is significant for a white blood cell count of 27k, creatinine is 3.58, potassium 5.4, bicarb of 17.9, anion gap elevated at 15, BUN of 64, an initial lactate of 5.1. In the emergency department she received 3 L of crystalloid IV fluids. Despite this she is hypotensive with a mean arterial pressure of 51. Critical care medicine is consulted to evaluate manage her presumed septic shock secondary to severe cellulitis of the trunk. I have given her an additional liter of crystalloid and then placed central venous access, see separate procedure note for details. In addition her lactate is starting to clear and is now 2.9 with an more currently pending, however it is not clearing fast enough and she remains oliguric. I placed a [place] for accurate hourly I's and O's. The remainder of the review systems for the patient is negative except documented in the HPI, although this is severely limited by her baseline developmental delay. Subjective 07/23: Patient remains on vasopressors, noted metabolic acidosis, bicarbonate level of 15. Sodium bicarbonate infusion initiated. 07/24 Patient was intubated early this morning now on Vasopressin and Neosyn 300 mics in addition patient is on Amio and Bicarb drips. WBC increased 31. CT abd/pelvis showed right sided cellulites and developing myositis. 07/25 Patient went to OR yesterday s/p wide excisional debridement of soft tissue infection with VAC placement for necrotizing soft tissue infection of abdomen, right hip area right torso area measuring approximately 32 x 18 inches x 2 inches deep. She remains on Vasopressin 0.04 and Neosyn down to 120 mics. On Amio drip. 07/26 No events overnight. Off all pressors, WBC is trending down. On Amio drip. 07/27 Patient remains intubated for return to OR today and wound vac exchange. 07/28 Patient s/p excisional debridement with vac change yesterday intubated and sedated with Fentanyl infusion. 07/29 Patient remains intubated and sedated with Fentanyl and Versed drips. Afebrile. 07/30 No events overnight. Patient remains sedated with Fentanyl drip and intubated. For OR today for further debridement and wound vac exchange. Afebrile. 07/31 Patient went to OR yesterday for vac exchange, Afebrile, WBC is trending down, Intubated and now sedated with Fentanyl and Versed 2mg/hr 08/01: Remains sedated, orally intubated on mechanical ventilation. Scheduled for OR today for vac exchange. 08/02: Remains intubated scheduled for OR again today. Antibiotics per ID. Slight increase in WBC count is 17.2 08/03: s/p Excisional debridement with VAC change yesterday by Dr. Dumont. Tolerating CPAP but not waking up or following commands. Dr. Dumont plans for further wound debridement and VAC change either tomorrow or Monday. Anticipating OR will leave patient intubated. WBC 19.9 today, will discuss with ID 08/04: Remains intubated, intermittently agitated on the vent. Or planned for tomorrow by Dr. Dumont. WBC count is slightly improved today 16.7 08/05: Patient is more critical today with worsening sepsis. T-max 102, WBC count up to 22.6. Hypotensive blood pressure 78/51. I have ordered 1 L normal saline bolus. Pancultured overnight. Zosyn started by Dr. Mcdonald. I will start micafungin also. Will inform ID. Dr. Dumont planning for OR today 08/06: Evaluated by night qa manager for persistent worsening hypotension called to bedside to evaluate patient with worsening hypotension. Given 500 cc 5 % albumin 1 without improvement in hypotension. A right subclavian central line was placed and norepinephrine infusion was started for persistent septic shock. Currently map remains above 65, on Levophed at 4 mcg/min. WBC 16.1 slightly improved from yesterday. Hemoglobin has dropped to 7.2 approximately 2 g drop. Transfuse 1 unit of PRBC stat. T-max 100.7, urine culture growing GNR 08/07: Remains sedated, orally intubated on mechanical ventilation. Wound VAC in place. On Levophed 2 mics per minute for hypotension. 08/08: Sedated, orally intubated on mechanical ventilation. Wound VAC remains in place. Tolerating tube feeds. Discussed with Dr. Dumont who is planning to take patient to OR tomorrow for wound VAC change as well as tracheostomy. 08/09: OR today for wound VAC change and tracheostomy. Remains on Levophed at 1 mcg/min. If continued Levophed requirement, right subclavian central line heading towards the left subclavian need to be replaced 08/10: Patient went to OR today for wound vac change and tracheostomy. Had further wound debridement. Profoundly hypothermic. Temperature 92. Warming blanket applied. Send CBC. Discussed with ID Objective Vital Signs Date Time Temp Pulse Resp B/P (MAP) Pulse Ox O2 Delivery O2 Flow Rate FiO2 08/10/17 14:00 61 08/10/17 08:49 99 35 08/10/17 08:15 23 151/78 (102) 08/10/17 08:00 98.9 Intake and Output 08/10/17 08/10/17 08/11/17 08:00 16:00 00:00 Intake Total 394 ml Output Total 450 ml Balance -56 ml Result Diagram: 08/09/17 0350 08/09/17 0350 Imaging Last Impressions Chest X-Ray 07/30/17 0000 Signed Impressions: Service Date/Time: Sunday, July 30, 2017 08:14 - CONCLUSION: Underinflation with atelectasis at the lung bases. Otherwise, no acute finding is seen given the technique. Derrick García MD Brain MRI 07/28/17 0000 Signed Impressions: Service Date/Time: Friday, July 28, 2017 14:38 - CONCLUSION: 1. Unremarkable MRI examination the brain. 2. No acute abnormality or interval change. Bob Daly MD Chest CT 07/24/17 0000 Signed Impressions: Service Date/Time: Monday, July 24, 2017 05:36 - CONCLUSION: 1. Stranding in the subcutaneous tissues about the right flank with fluid adjacent to the latissimus dorsi. Stranding extends up into the right breast. Findings could represent developing cellulitis. 2. In addition, there is now a small right-sided effusion with bilateral dependent atelectatic changes. Jerome Brady MD Abdomen/Pelvis CT 07/24/17 0000 Signed Impressions: Service Date/Time: Monday, July 24, 2017 05:36 - CONCLUSION: 1. CT findings concerning for a right sided cellulitis and developing myositis. There is some asymmetric prominence of the latissimus dorsi muscle on the right. Unorganized fluid in the deep subcutaneous tissues adjacent to the muscle belly. No drainable fluid collection, however. 2. Developing dependent areas of consolidation, right greater than left with an associated small right-sided effusion. Jerome Brady MD Head CT 07/22/17 1253 Signed Impressions: Service Date/Time: Saturday, July 22, 2017 13:26 - CONCLUSION: No acute disease. Derrick Henry MD Objective Remarks GENERAL: Elderly female, lying in bed intubated. Sedated with Versed and fentanyl, also on the residual anesthesia HEENT: Normocephalic. Atraumatic. Pupils equal, round, reactive, conjugate. NECK: Trachea is midline. There is no JVD. Trachea ostomy in place with minimal oozing CHEST: Equal chest rise. On PRVC CARDIOVASCULAR: RRR, nl S1, S2 ABDOMEN: Soft, nontender, nondistended, +BS, wound Vac in place on the right flank covering extensive areas of debridement. MUSCULOSKELETAL: Gangrene of 2-4 toes on right. Hypothermic NEUROLOGICAL: Sedated, under the influence of residual anesthesia. No spontaneous movements yet Date of Insertion: Jul 22, 2017 Date of Insertion: August 06, 2017 Line: Central Venous Catheter A/P Assessment and Plan Active problems: Acute respiratory failure Septic shock, improving Hypothermia Right flank necrotizing fasciitis Pneumonia (HCAP) Acute metabolic encephalopathy Anemia requiring transfusion Acute kidney injury Elevated CK Anemia Thrombocytopenia Hypothyroidism Plan: Neurologic: Neuro checks per ICU protocol. Fentanyl, Versed infusion for sedation and vent synchrony. Daily sedation vacation Hypothermia may be postop, environmental. Warming blanket applied 07/22 CT brain: No acute disease. MRI brain 07/28 Unremarkable Tylenol 650 mg every 6 hours as needed for pain and/or temperature greater than 100.5 Respiratory: Continue with vent support keep sats >92% On PRVC. status post tracheostomy today by Dr. Dumont in the OR 08/10/17. Daily SBT, Bronchodilators, ICU vent bundle. Cardiovascular: Monitor HR and BP keep MAP>65mmHg. Remains off Levophed Hydrocortisone DCd 08/04. Status post fluid and albumin resuscitation Echo showed EF 50-55% Renal: Monitor renal function, I/O's, Avoid nephrotoxins Renal is following- . On Free water 300ml Q6, monitor sodium level. Diuril 250mg IV daily per renal on hold, urine output is diminished so will restart Diuril 08/10 FEN/GI: On Pepcid 10mg BID for GI prophylaxis Tube feeds- Glucerna 1.5 with goal rate 45ml/hr, currently held for OR ID: Urine culture and sputum culture from 08/04 and 08/05/2017 growing E. coli and Pseudomonas pansensitive Continue with abx (Daptomycin Zosyn Clindamycin) per ID 07/24, 07/27 Wound cx :MRSA 07/24 BC :NGTD 07/23: urine cx: No growth 07/22 BC: NGTD 08/04 UC: GNR Path report: Abdominal soft tissue excision: Skin and subcutaneous adipose tissue with acute cellulitis and multifocal abscess formation 07/30 Wound vac exchange 07/27 s/p excisional debridement with vac change of torso and abdomen 07/24 s/p wide excisional debridement of soft tissue infection with VAC placement for necrotizing soft tissue infection of abdomen, right hip area right torso area measuring approximately 32 x 18 inches x 2 inches deep. Surgery -Dr. Dumont. s/p debridement and wound VAC change 08/10/[address] Dumont Heme: Monitor CBC, transfuse PRBC as needed Endocrine: Levothyroxine 112 mcg/day on hold. TSH:0.08 on 07/24 Glucose monitoring per ICU protocol. -- Continue SSI medium scale for glycemic control MSK: Dry gangrene setting in of toes on right- Likely pressors induced ischemia of toes. Seen by vascular surg- no additional vascular work up needed given palpable pulses, Prophylaxis: GI Prophylaxis Famotidine DVT Prophylaxis SCDs. Chemical DVT prophylaxis when cleared by Dr. Dumont-susanne due to anemia requiring transfusion Lines: Central line placed on 07/22 DCd 08/05/17. Peripheral IVs 2, New right subclavian central line placed 08/06/17-heading to L subclavian. Place new central line if persistent pressor requirement Level 3 excluding procedures Tracey Meza MD August 10, 2017 14:47
--- NOTE | 2017-08-10 16:12 | PD.WCN.NOT ---
Wound Consult Description: Wound consult ordered by for wound management Communicated with: and OR staff, Corine CARUSO [facility] [place] Recommendation: 1. Reposition patient every 2 hours for comfort and offloading. 2. Cleanse patient inner buttock area with Remedy soft clothes with skin protection 3. Apply Calazime cream to inner buttock and upper buttocks area BID or after bowel movement. Additional Information: Patient was seen in OR today by song writer and Dr. Dumont for wound vac dressing change and assessment of coccyx wound.Patient currently vented and sedated.OR staff repositioned patient to left side.Sheep Rancher was able to visualized inner buttock and coccyx area.Patient noted to have moisture related fissure measuring ~3cm x ~0.2cm x <0.1cm to inner right upper buttocks with moisture denuded wounds scattered on upper bilateral buttocks.Fissure wound base dry with pink tissue present.Periwound intact blanchable to touch. Moisture denuded wound bases are 100% red moist non granular tissue.recommendations would be Calazime cream BID.Sheep Rancher did not apply Calazime cream in OR due to sterile procedure being perform.SHADY Pool will apply when patient returns to floor. Benigno Calderón [facility] August 10, 2017 16:12
[2017-08-10 17:55] LABS: AUTOMATED NEUTROPHIL # 12.9 TH/MM3 (1.8-7.7); BASOPHIL # 0.1 TH/MM3 (0-0.2); BASOPHIL % 0.8 % (0.0-2.0); EOSINOPHIL # 0.1 TH/MM3 (0-0.4); EOSINOPHIL % 0.5 % (0.0-4.0); HEMATOCRIT 30.4 % (35.0-46.0); HEMOGLOBIN 9.8 GM/DL (11.6-15.3); LYMPH % 11.1 % (9.0-44.0); LYMPHOCYTE # 1.8 TH/MM3 (1.0-4.8); MEAN CELL VOLUME 82.7 FL (80.0-100.0); MEAN CORPUSCULAR HEMOGLOBIN 26.7 PG (27.0-34.0); MEAN CORPUSCULAR HGB CONC 32.3 % (32.0-36.0); MEAN PLATELET VOLUME 5.8 FL (7.0-11.0); MONO % 6.4 % (0.0-8.0); NEUT % 81.2 % (16.0-70.0); PLATELET COUNT 372 TH/MM3 (150-450); RED BLOOD COUNT 3.68 MIL/MM3 (4.00-5.30); RED CELL DISTRIBUTION WIDTH 16.1 % (11.6-17.2); WHITE BLOOD COUNT 15.9 TH/MM3 (4.0-11.0)
[2017-08-10] MEDS: DAPTOMYCIN IV SCH (17:57)
[2017-08-10] MEDS: SODIUM CHLORIDE 0.9% IV SCH (17:57)
--- NOTE | 2017-08-10 22:43 | MP ---
cc: Tip Dumont MD, Lars S MD DATE OF OPERATION: 08/10/2017 DATE OF PROCEDURE: 08/10/2017. PREOPERATIVE DIAGNOSIS: 1. Necrotizing soft tissue infection of the right torso, back and abdomen 52 x 37 cm. 2. Prolonged ventilatory dependence. POSTOPERATIVE DIAGNOSIS: 1. Necrotizing soft tissue infection of the right torso, back and abdomen 52 x 37 cm. 2. Prolonged ventilatory dependence. PROCEDURE PERFORMED: 1. Change of VAC. Total square cm of 52 x 37. 2. Percutaneous tracheostomy. SURGEON: Dr. Tip Dumont. AIRCRAFT SKIN BURNISHER: Yanely ANESTHESIA: SALIMA. IV FLUIDS: See anesthesia sheet. ESTIMATED BLOOD LOSS: 15 mL DRAINS: None. COMPLICATIONS: None. WOUND CLASSIFICATION: First procedure, dirty contaminated. Second procedure clean. INDICATIONS FOR PROCEDURE: The patient is a 62-year-old female who presented with acute necrotizing soft tissue injury. She underwent wide debridement with VAC placement and is in need of a VAC change. Secondarily, patient with prolonged ventilatory failure; therefore, necessitating tracheostomy. DETAILS OF PROCEDURE: The patient was taken to the operating suite, placed in the lateral decubitus position. She was prepped and draped in usual sterile fashion after induction of general endotracheal anesthesia. The patient already on a ventilator. The previous VAC dressing was removed. Heber were removed. Wide prep to the area. Brief timeout done stating correct patient, procedure and surgical site. Attention was directed to the wound where minimal debridement of skin tissue was done. Tissue noted to have some good granulation along with multiple healthier bleeding points. Irrigation done to the wound bed and hemostasis obtained. The VAC sponge was obtained and cut to size measuring 52 cm long x 37 cm wide. The VAC was positioned such to conform to the confines of the wound. Heber placed in order to secure the VAC in place. The plastic dressing was then placed. The track pad was placed, back hooked to suction without evidence of leaking. Next, the patient was repositioned in the supine position. Gowns, gloves were changed and a new VAC table was assembled. I rescrubbed at the sink and proceeded with the second operation which was a percutaneous tracheostomy. A bump was placed underneath the shoulder blades and the patient was prepped and draped in the usual sterile fashion. Again, the patient had already been on a ventilator. A second timeout was done confirming patient, procedure and surgical site. We were all in agreement with this. Attention directed to the midline neck. The cricothyroid membrane was palpated along with anatomical landmarks and a cricoid notch. Local anesthetic injected. A small 2 cm longitudinal incision was made with a 15 blade. Electro Bovie cautery was used. The patient had again been on ventilator with saturations of 100% on FIO2 of 100%. Electro Bovie cautery was used. The FIO2 was then decreased to 30% and further dissection was done with a hemostat down to the anterior trachea. Once the trachea was palpated, bronchoscopy used through the endotracheal tube via anesthesia in order to identify the raoul and anterior tracheal landmarks. The ET tube was slowly pulled back as well as still palpated by my finger and then the introducer cannula needle was obtained and aspirated and done under direct bronchoscopy with visualization finding the needle intratracheal. This was done at the second and third intratracheal ring. The Angiocath was advanced. The wire was then placed and advanced through the Angiocath. The Angiocath was removed. A punch was used x3 in order to dilate the tract. Next, a 28 Blue Rhino was obtained to further dilate the tract. This was done x3. This was removed and then the #8 Shiley cuffed tracheostomy was obtained and placed over the wire and into the thyroid tracheotomy. Then the cannula was removed. A new cannula was placed. The tracheostomy was hooked up to the ET tube with good end tidal CO2 and noted to have bilateral expansion and breath sounds. The cuff was then inflated and the trach was secured to the neck using 3-0 nylon sutures. The trach cuff tie was then in place as well. The patient was noted to be hemostatic and stable and all lap and instrument counts were correct at the end of the procedures. The patient was taken to [facility] ICU. No intraoperative complications. MD SHARON Kowalski/ , 10:13 PM , 10:41 PM
[2017-08-10 23:58] LABS: BICARBONATE 22.8 MEQ/L (21.0-32.0); BLOOD UREA NITROGEN 11 MG/DL (7-18); CALCIUM 8.6 MG/DL (8.5-10.1); CHLORIDE 102 MEQ/L (98-107); CREATININE 0.88 MG/DL (0.50-1.00); GLOMERULAR FILTRATION RATE 65 ML/MIN (>89); GLUCOSE,RANDOM 90 MG/DL (74-106); MAGNESIUM 1.7 MG/DL (1.5-2.5); PHOSPHORUS 2.9 MG/DL (2.5-4.9); SODIUM (NA) 136 MEQ/L (136-145)
[2017-08-11] VITALS (33 sets, daily range): BP systolic 95–171; BP diastolic 55–92; PULSE 64–95; RESP 18–22; TEMP 98.5–99.6; O2SAT 95–100
[2017-08-11 00:02] LABS: TROPONIN I LESS THAN 0.02 NG/ML (0.02-0.05)
[2017-08-11] MEDS: CLINDAMYCIN 900 MG/NS PREMIX 50 ML IV SCH (03:46)
[2017-08-11] MEDS: INSULIN NovoLIN REGULAR SUPPLEMENTAL SCALE SQ SCH ×5 (04:00→20:00)
[2017-08-11] MEDS: FREE WATER G-TUBE SCH ×3 (04:18→17:10)
[2017-08-11] MEDS: DILTIAZEM HCL 60 MG TAB PO SCH ×3 (04:19→17:04)
[2017-08-11] MEDS: PIPERACIL-TAZO 4.5 GM PREMIX 100 ML IV SCH ×3 (05:47→17:11)
[2017-08-11 06:40] LABS: FREE T3 LESS THAN 0.50 PG/ML (2.18-3.98)
[2017-08-11] MEDS: DOCUSATE SODIUM 50 MG/SENNA 8.6 MG TAB PO SCH ×2 (07:06→20:13)
[2017-08-11] MEDS: FAMOTIDINE 20 MG TAB PO SCH ×2 (07:30→20:13)
[2017-08-11] MEDS: MULTIVITAMIN-OPHTHALMIC 1 TAB PO SCH (07:30)
[2017-08-11] MEDS: CALCIUM/VITAMIN D 250 MG/125 U TAB PO SCH (07:31)
[2017-08-11] MEDS: CHLORHEXIDINE 0.12% (ORAL KIT) 15 ML CUP MT SCH ×2 (07:31→20:13)
[2017-08-11] MEDS: SODIUM CHLORIDE 0.9% FLUSH 10 ML FLUSH IV FLUSH SCH ×2 (07:31→20:13)
[2017-08-11] MEDS: fentaNYL DRIP 250 ML IV PRN (07:33)
[2017-08-11] MEDS: POTASSIUM CHLOR 20 MEQ PREMIX 100 ML IV PRN ×2 (09:26→11:50)
[2017-08-11] MEDS: CHLOROTHIAZIDE SOD 500 MG VIAL IV SCH (09:43)
--- NOTE | 2017-08-11 10:40 | HHI.PR ---
Subjective Subjective Notes Eyes open With trach on mechanical ventilation Objective Vitals/I&O Vital Signs Date Time Temp Pulse Resp B/P (MAP) Pulse Ox O2 Delivery O2 Flow Rate FiO2 08/11/17 10:00 84 08/11/17 08:45 35 08/11/17 08:33 100 08/11/17 08:00 98.5 108/63 (78) 08/11/17 04:00 22 08/10/17 18:42 Room Air Labs Laboratory Tests Test 08/10/17 16:30 08/10/17 23:25 08/11/17 05:34 White Blood Count 15.9 Red Blood Count 3.68 Hemoglobin 9.8 Hematocrit 30.4 Mean Corpuscular Volume 82.7 Mean Corpuscular Hemoglobin 26.7 Mean Corpuscular Hemoglobin Concent 32.3 Red Cell Distribution Width 16.1 Platelet Count 372 Mean Platelet Volume 5.8 Neutrophils (%) (Auto) 81.2 Lymphocytes (%) (Auto) 11.1 Monocytes (%) (Auto) 6.4 Eosinophils (%) (Auto) 0.5 Basophils (%) (Auto) 0.8 Neutrophils # (Auto) 12.9 Lymphocytes # (Auto) 1.8 Monocytes # (Auto) 1.0 Eosinophils # (Auto) 0.1 Basophils # (Auto) 0.1 CBC Comment DIFF FINAL Differential Comment Blood Urea Nitrogen 11 Creatinine 0.88 Random Glucose 90 Calcium Level 8.6 Phosphorus Level 2.9 Magnesium Level 1.7 Sodium Level 136 Potassium Level 3.3 Chloride Level 102 Carbon Dioxide Level 22.8 Anion Gap 11 Estimat Glomerular Filtration Rate 65 Total Creatine Kinase 209 Creatine Kinase MB 17.4 Creatine Kinase MB % 8.3 Troponin I LESS THAN 0.02 Free Thyroxine 0.10 Free Triiodothyronine (T3) pg/dL LESS THAN 0.50 Thyroid Stimulating Hormone 3rd Gen 77.000 Date/Time Source Procedure Growth Status 08/06/17 00:43 Blood Peripheral Aerobic Blood Culture - Preliminary NO GROWTH IN 4 DAYS Resulted 08/06/17 00:43 Blood Peripheral Anaerobic Blood Culture - Final QNS - SEE AEROBE REPORT Resulted 08/05/17 05:40 Sputum Endotracheal Gram Stain - Final Complete 08/05/17 05:40 Sputum Culture - Final Pseudomonas Aeruginosa Klebsiella Pneumoniae Complete 08/04/17 22:08 Urine Catheterized Urine Urine Culture - Final Klebsiella Pneumoniae Pseudomonas Aeruginosa Complete 07/27/17 15:30 Wound Other Fungal Smear - Final NO FUNGAL ELEMENTS SEEN. Resulted 07/27/17 15:30 Wound Other Fungal Culture - Preliminary NO GROWTH IN 2 WEEKS Resulted Cardiovascular: Regular Lungs: Clear Abdomen: Other (large Wound Vac in place over RIGHT abdomen/RIGHT flank/RIGHT back with good seal ) Narrative Exam necrotic appearing toes of RIGHT foot Dried blood around mouth A/P Assessment and Plan 62 year old female with extensive soft tissue infection -s/p I&D of wound; wound vac placement and trach -Continue tube feeds -Consult to Plastic Surgery for evaluation of skin graft Attending Statement patient seen at bedside await plastics eval vac changes select planning when stable Attestation The exam, history, and the medical decision-making described in the above note were completed with the assistance of the mid-level provider. I reviewed and agree with the findings presented. I attest that I had a [id number] encounter with the patient on the same day, and personally performed and documented my assessment and findings in the medical record. Batool Meneses/Hvac Tech ARNP August 11, 2017 10:40 Tip Dumont MD August 14, 2017 04:33
--- NOTE | 2017-08-11 11:49 | HHI.IDPN ---
Subjective Subjective Remarks Most of the history was obtained by review of medical records. Patient shortly being wheeled out to the operating room for surgical exploration of the site of necrotizing fasciitis Septic shock. Ms. Eldridge is a 62-year-old female who reportedly has developmental delays per chart review. Patient presented to the emergency department via EMS for evaluation of right-sided abdominal, flank and back erythema swelling and pain. Patient's care provider and power of transactional attorney listed on the chart is Mr. Felipe Nagy who can be contacted at [phone]. Patient had earlier reported to others that she was feeling unwell for the past 4 weeks. Patient reported increase in her migraine symptoms. Patient also reported continuous, nonradiating sharps times burning pain over the right upper quadrant that is expanded to include her right flank and back. She denies any trauma to these areas. Patient reported to others prior to being intubated that she had nausea and vomiting associated with decreased appetite. Patient also had reported to others that she was dizzy and lightheaded. Per review of records it appears that patient has had multiple falls as well as has had urinary incontinence at baseline with decreased urine output over the last few days. Patient also reported subjective symptoms such as burning with urination. Per EMS, patient was found to be hypotensive. Systolic pressure was recorded in the 70s. She received fluid in transit with minimal improvement. In the emergency department she was found to have significant erythema,pain and edema from approximately the fifth intercostal space down to the eighth or ninth intercostal space wrapping around from the midline in the back all the way around to just medial to the breast. CT scan of the abdomen and pelvis confirms significant subcutaneous edema, but this area of edema appears to be contained by intact fascial planes, particularly in the midline of the back. Laboratory evidence is significant for a white blood cell count of 27k, creatinine is 3.58, potassium 5.4, bicarb of 17.9, anion gap elevated at 15, BUN of 64, an initial lactate of 5.1. In the emergency department she received 3 L of crystalloid IV fluids. Critical care medicine is consulted to evaluate manage her presumed septic shock secondary to severe cellulitis of the trunk. Overnight critical care medicine was consulted for worsening sepsis and septic shock. Patient had to be intubated and upon evaluation was found to have evidence suggestive of necrotizing fasciitis involving similar areas as reported on the emergency room but had progressed beyond the line of demarcation. Patient was noted to have significant blisters and blackening of the areas. Critical care medicine change the regimen to Zosyn IV, vancomycin IV and added clindamycin IV and placed a surgical consult. Patient was evaluated by Dr. Thor Dumont of surgery and patient is being wheeled to the operating room shortly. At the time of my evaluation patient is in the ICU currently on high-dose Levophed as well as vasopressin with slight decrease in Levophed requirement after addition of clindamycin IV. Urine output is low. No diarrhea. No diffuse rash or skin changes other than as described. Overnight events reviewed. Sedated on the vent. Not on pressors. Secretions plus. Temps ok No rash no diarrhea Antibiotics Dapto IV Zosyn IV Clinda IV Micafungin IV Lines Line sites with no e.o infection Past Medical History Anxiety Depression Developmental delays - mental handicap Headaches/migraines Hypothyroidism GERD Chest pain Hx of UTIs Renal insufficiency Bladder incontinence Chronic back pain Thyroid surgery EGD - 08/30/16 Cholecystectomy - 03/04/15 D&C Hysterectomy Colonoscopy - 07/30/16 and 08/11/15 Allergies: Coded Allergies: No Known Allergies (Verified Allergy, Unknown, 07/22/17) Objective . Vital Signs Date Time Temp Pulse Resp B/P (MAP) Pulse Ox O2 Delivery O2 Flow Rate FiO2 08/11/17 10:00 84 08/11/17 08:45 35 08/11/17 08:33 100 35 08/11/17 08:00 69 08/11/17 08:00 98.5 69 108/63 (78) 100 08/11/17 08:00 35 08/11/17 06:00 67 08/11/17 05:14 100 35 08/11/17 04:00 98.7 81 22 142/62 (88) 100 08/11/17 04:00 35 08/11/17 04:00 81 08/11/17 02:00 81 08/11/17 00:19 100 35 08/11/17 00:00 35 08/11/17 00:00 88 08/11/17 00:00 99.6 88 18 171/85 (113) 100 08/10/17 22:00 91 08/10/17 21:25 100 35 08/10/17 20:00 35 08/10/17 20:00 98.3 92 20 157/81 (106) 91 08/10/17 20:00 92 08/10/17 18:42 Room Air 08/10/17 18:16 100 35 08/10/17 18:00 82 08/10/17 16:00 95.0 70 22 159/90 (113) 100 08/10/17 16:00 64 08/10/17 16:00 35 08/10/17 14:00 61 . Laboratory Tests Test 08/10/17 16:30 White Blood Count 15.9 TH/MM3 Red Blood Count 3.68 MIL/MM3 Hemoglobin 9.8 GM/DL Hematocrit 30.4 % Mean Corpuscular Volume 82.7 FL Mean Corpuscular Hemoglobin 26.7 PG Mean Corpuscular Hemoglobin Concent 32.3 % Red Cell Distribution Width 16.1 % Platelet Count 372 TH/MM3 Mean Platelet Volume 5.8 FL Neutrophils (%) (Auto) 81.2 % Lymphocytes (%) (Auto) 11.1 % Monocytes (%) (Auto) 6.4 % Eosinophils (%) (Auto) 0.5 % Basophils (%) (Auto) 0.8 % Neutrophils # (Auto) 12.9 TH/MM3 Lymphocytes # (Auto) 1.8 TH/MM3 Monocytes # (Auto) 1.0 TH/MM3 Eosinophils # (Auto) 0.1 TH/MM3 Basophils # (Auto) 0.1 TH/MM3 CBC Comment DIFF FINAL Differential Comment Laboratory Tests Test 08/10/17 23:25 08/11/17 05:34 Blood Urea Nitrogen 11 MG/DL Creatinine 0.88 MG/DL Random Glucose 90 MG/DL Calcium Level 8.6 MG/DL Phosphorus Level 2.9 MG/DL Magnesium Level 1.7 MG/DL Sodium Level 136 MEQ/L Potassium Level 3.3 MEQ/L Chloride Level 102 MEQ/L Carbon Dioxide Level 22.8 MEQ/L Anion Gap 11 MEQ/L Estimat Glomerular Filtration Rate 65 ML/MIN Total Creatine Kinase 209 U/L Creatine Kinase MB 17.4 NG/ML Creatine Kinase MB % 8.3 % Troponin I LESS THAN 0.02 NG/ML Free Thyroxine 0.10 NG/DL Free Triiodothyronine (T3) pg/dL LESS THAN 0.50 PG/ML Thyroid Stimulating Hormone 3rd Gen 77.000 uIU/ML Imaging Chest X-Ray 07/30/17 0000 Signed Impressions: Service Date/Time: Sunday, July 30, 2017 08:14 - CONCLUSION: Underinflation with atelectasis at the lung bases. Otherwise, no acute finding is seen given the technique. Derrick García MD Brain MRI 07/28/17 0000 Signed Impressions: Service Date/Time: Friday, July 28, 2017 14:38 - CONCLUSION: 1. Unremarkable MRI examination the brain. 2. No acute abnormality or interval change. Bob Daly MD Chest CT 07/24/17 0000 Signed Impressions: Service Date/Time: Monday, July 24, 2017 05:36 - CONCLUSION: 1. Stranding in the subcutaneous tissues about the right flank with fluid adjacent to the latissimus dorsi. Stranding extends up into the right breast. Findings could represent developing cellulitis. 2. In addition, there is now a small right-sided effusion with bilateral dependent atelectatic changes. Jerome Brady MD Abdomen/Pelvis CT 07/24/17 0000 Signed Impressions: Service Date/Time: Monday, July 24, 2017 05:36 - CONCLUSION: 1. CT findings concerning for a right sided cellulitis and developing myositis. There is some asymmetric prominence of the latissimus dorsi muscle on the right. Unorganized fluid in the deep subcutaneous tissues adjacent to the muscle belly. No drainable fluid collection, however. 2. Developing dependent areas of consolidation, right greater than left with an associated small right-sided effusion. Jerome Brady MD Head CT 07/22/17 1253 Signed Impressions: Service Date/Time: Saturday, July 22, 2017 13:26 - CONCLUSION: No acute disease. Derrick Henry MD Physical Exam GENERAL: Sedated on the vent, NAD. On CPAP SKIN: No generalized rash. Dry, cool extremities HEAD: Atraumatic. Normocephalic. No temporal or scalp tenderness. EYES: Pupils equal round and reactive. Extraocular motions intact. No scleral icterus. No injection or drainage. ENT: Intubated. Moist mucosa NECK: Trachea midline. Supple, nontender, no meningeal signs. CARDIOVASCULAR: Heart sounds audible. No murmur appreciated. RESPIRATORY: Clear to auscultation. Breath sounds equal bilaterally. No wheezes , rales, or rhonchi. GASTROINTESTINAL: Abdomen soft. Wound vac area noted. Extensive area covered with wound vac sponge, output serosanguineous. Area appears extended since last seen upto midline on the back. MUSCULOSKELETAL: Extremities without clubbing, cyanosis. Some pedal edema. Ischemic toes R foot 2-4 toes and tip of 5th toe, no change. Cool feet NEUROLOGICAL: Sedated. Psych could not be assessed IV line sites with no e.o infection Assessment & Plan Remarks Septic shock with multiorgan dysfunction syndrome Sepsis present on admission Necrotizing fasciitis of the abdominal wall ? History of multiple falls likely the precipitant. PSAE and Kleb pneumo pneumonia. PSAE and kleb in urine ? contamination as 2 organisms. Acute rhabdomyolysis Acute renal failure: Prerenal, sepsis, rhabdomyolysis Acute metabolic encephalopathy likely sepsis related. Baseline unknown Leukocytosis, lower today - nothing new on C/S; last OR C/S MRSA - could be reactive from last OR Recommendations: Continue Dapto IV (Vanco DELMI 2, clinically still has new areas of erythema and e /o infection outside wound vac margin, acute renal failure) continue Zosyn IV DC Clindamycin IV dw surgery PA no further ongoing necrosis noted. Follow cultures to adjust antibiotics. Follow clinically. PEG placement may be a challenge as the wound area appears progressed last few days. Ellen Gonzalez RN, MD August 11, 2017 11:49
--- NOTE | 2017-08-11 12:17 | EKG ---
Date Performed: 08/10/2017 Time Performed: 22:39:27 PTAGE: 62 years EKG: Sinus rhythm PROBABLE LATERAL MYOCARDIAL INFARCTION , PROBABLY OLD ABNORMAL ECG PREVIOUS TRACING : 07/24/2017 03.07 Compared to the prior study, sinus rhythm has replaced atri al fibrillation with rapid response. DOCTOR: Jose Rod Interpretating Date/Time 08/11/2017 12:16:55
--- NOTE | 2017-08-11 14:50 | HHI.CCPN ---
Subjective Remarks/Hospital Course This is a 62-year-old female with a history of developmental delay and recurrent urinary tract infections who presents with new onset right-sided abdominal and flank pain. Per the [facility] service admission note this is been going on for approximately 4 weeks. Patient has a history of developmental delay and is difficult to get a complete history from her, no analysis with her on my evaluation. On my evaluation she endorses flank pain radiating around to her chest. She endorses subjective chills. Denies recent fevers to me. Also endorses nausea, vomiting. In the emergency department she was found to have significant erythema, rubor, dolor, and edema from approximately the fifth intercostal space down to the eighth or ninth intercostal space wrapping around from the midline in the back all the way around to just medial to the breast. CT scan of the abdomen and pelvis confirms significant subcutaneous edema, but this area of edema appears to be contained by intact fascial planes, particularly in the midline of the back. Laboratory evidence is significant for a white blood cell count of 27k, creatinine is 3.58, potassium 5.4, bicarb of 17.9, anion gap elevated at 15, BUN of 64, an initial lactate of 5.1. In the emergency department she received 3 L of crystalloid IV fluids. Despite this she is hypotensive with a mean arterial pressure of 51. Critical care medicine is consulted to evaluate manage her presumed septic shock secondary to severe cellulitis of the trunk. I have given her an additional liter of crystalloid and then placed central venous access, see separate procedure note for details. In addition her lactate is starting to clear and is now 2.9 with an more currently pending, however it is not clearing fast enough and she remains oliguric. I placed a [place] for accurate hourly I's and O's. The remainder of the review systems for the patient is negative except documented in the HPI, although this is severely limited by her baseline developmental delay. Subjective 07/23: Patient remains on vasopressors, noted metabolic acidosis, bicarbonate level of 15. Sodium bicarbonate infusion initiated. 07/24 Patient was intubated early this morning now on Vasopressin and Neosyn 300 mics in addition patient is on Amio and Bicarb drips. WBC increased 31. CT abd/pelvis showed right sided cellulites and developing myositis. 07/25 Patient went to OR yesterday s/p wide excisional debridement of soft tissue infection with VAC placement for necrotizing soft tissue infection of abdomen, right hip area right torso area measuring approximately 32 x 18 inches x 2 inches deep. She remains on Vasopressin 0.04 and Neosyn down to 120 mics. On Amio drip. 07/26 No events overnight. Off all pressors, WBC is trending down. On Amio drip. 07/27 Patient remains intubated for return to OR today and wound vac exchange. 07/28 Patient s/p excisional debridement with vac change yesterday intubated and sedated with Fentanyl infusion. 07/29 Patient remains intubated and sedated with Fentanyl and Versed drips. Afebrile. 07/30 No events overnight. Patient remains sedated with Fentanyl drip and intubated. For OR today for further debridement and wound vac exchange. Afebrile. 07/31 Patient went to OR yesterday for vac exchange, Afebrile, WBC is trending down, Intubated and now sedated with Fentanyl and Versed 2mg/hr 08/01: Remains sedated, orally intubated on mechanical ventilation. Scheduled for OR today for vac exchange. 08/02: Remains intubated scheduled for OR again today. Antibiotics per ID. Slight increase in WBC count is 17.2 08/03: s/p Excisional debridement with VAC change yesterday by Dr. Dumont. Tolerating CPAP but not waking up or following commands. Dr. Dumont plans for further wound debridement and VAC change either tomorrow or Monday. Anticipating OR will leave patient intubated. WBC 19.9 today, will discuss with ID 08/04: Remains intubated, intermittently agitated on the vent. Or planned for tomorrow by Dr. Dumont. WBC count is slightly improved today 16.7 08/05: Patient is more critical today with worsening sepsis. T-max 102, WBC count up to 22.6. Hypotensive blood pressure 78/51. I have ordered 1 L normal saline bolus. Pancultured overnight. Zosyn started by Dr. Mcdonald. I will start micafungin also. Will inform ID. Dr. Dumont planning for OR today 08/06: Evaluated by night toggle press folder and feeder for persistent worsening hypotension called to bedside to evaluate patient with worsening hypotension. Given 500 cc 5 % albumin 1 without improvement in hypotension. A right subclavian central line was placed and norepinephrine infusion was started for persistent septic shock. Currently map remains above 65, on Levophed at 4 mcg/min. WBC 16.1 slightly improved from yesterday. Hemoglobin has dropped to 7.2 approximately 2 g drop. Transfuse 1 unit of PRBC stat. T-max 100.7, urine culture growing GNR 08/07: Remains sedated, orally intubated on mechanical ventilation. Wound VAC in place. On Levophed 2 mics per minute for hypotension. 08/08: Sedated, orally intubated on mechanical ventilation. Wound VAC remains in place. Tolerating tube feeds. Discussed with Dr. Dumont who is planning to take patient to OR tomorrow for wound VAC change as well as tracheostomy. 08/09: OR today for wound VAC change and tracheostomy. Remains on Levophed at 1 mcg/min. If continued Levophed requirement, right subclavian central line heading towards the left subclavian need to be replaced 08/10: Patient went to OR today for wound vac change and tracheostomy. Had further wound debridement. Profoundly hypothermic. Temperature 92. Warming blanket applied. Send CBC. Discussed with ID. 08/11: Late entry note. Pt seen at 0830. Afebrile. No acute events overnight. Patient currently normothermic, WBC count downtrending. Palpable pulses B/L dorsalis pedis and post tibialis. Objective Vital Signs Date Time Temp Pulse Resp B/P (MAP) Pulse Ox O2 Delivery O2 Flow Rate FiO2 08/11/17 14:00 80 08/11/17 12:00 35 08/11/17 12:00 98.5 20 146/80 (102) 100 08/10/17 18:42 Room Air Intake and Output 08/11/17 08/11/17 08/12/17 08:00 16:00 00:00 Intake Total 640 ml 200 ml Output Total 675 ml Balance -35 ml 200 ml Result Diagram: 08/10/17 1630 08/10/17 9585 Imaging Last Impressions Chest X-Ray 07/30/17 0000 Signed Impressions: Service Date/Time: Sunday, July 30, 2017 08:14 - CONCLUSION: Underinflation with atelectasis at the lung bases. Otherwise, no acute finding is seen given the technique. Derrick García MD Brain MRI 07/28/17 0000 Signed Impressions: Service Date/Time: Friday, July 28, 2017 14:38 - CONCLUSION: 1. Unremarkable MRI examination the brain. 2. No acute abnormality or interval change. Bob Daly MD Chest CT 07/24/17 0000 Signed Impressions: Service Date/Time: Monday, July 24, 2017 05:36 - CONCLUSION: 1. Stranding in the subcutaneous tissues about the right flank with fluid adjacent to the latissimus dorsi. Stranding extends up into the right breast. Findings could represent developing cellulitis. 2. In addition, there is now a small right-sided effusion with bilateral dependent atelectatic changes. Jerome Brady MD Abdomen/Pelvis CT 07/24/17 0000 Signed Impressions: Service Date/Time: Monday, July 24, 2017 05:36 - CONCLUSION: 1. CT findings concerning for a right sided cellulitis and developing myositis. There is some asymmetric prominence of the latissimus dorsi muscle on the right. Unorganized fluid in the deep subcutaneous tissues adjacent to the muscle belly. No drainable fluid collection, however. 2. Developing dependent areas of consolidation, right greater than left with an associated small right-sided effusion. Jerome Brady MD Head CT 07/22/17 1253 Signed Impressions: Service Date/Time: Saturday, July 22, 2017 13:26 - CONCLUSION: No acute disease. Derrick Henry MD Objective Remarks GENERAL: Elderly female, lying in bed intubated. Sedated with Fentanyl infusion to maintain vent synchrony HEENT: Normocephalic. Atraumatic. Pupils equal, round, reactive, conjugate. NECK: Trachea is midline. There is no JVD. Tracheostomy in place with minimal oozing CHEST: Equal chest rise. On PRVC CARDIOVASCULAR: RRR, nl S1, S2 ABDOMEN: Soft, nontender, nondistended, +BS, wound Vac in place on the right flank covering extensive areas of debridement. MUSCULOSKELETAL: Gangrene of 2-4 toes on right. Hypothermic NEUROLOGICAL: Sedated, under the influence of residual anesthesia. No spontaneous movements yet Date of Insertion: Jul 22, 2017 Date of Insertion: August 06, 2017 Line: Central Venous Catheter A/P Assessment and Plan Active problems: Acute respiratory failure Septic shock, improving Hypothermia Right flank necrotizing fasciitis Pneumonia (HCAP) Acute metabolic encephalopathy Anemia requiring transfusion Acute kidney injury Elevated CK Anemia Thrombocytopenia Hypothyroidism Plan: Neurologic: Neuro checks per ICU protocol. Fentanyl, Versed infusion for sedation and vent synchrony. Daily sedation vacation Hypothermia may be postop, environmental. Warming blanket applied 07/22 CT brain: No acute disease. MRI brain 07/28 Unremarkable Tylenol 650 mg every 6 hours as needed for pain and/or temperature greater than 100.5 Respiratory: Continue with vent support keep sats >92% On PRVC. status post tracheostomy today by Dr. Dumont in the OR 08/10/17. Daily SBT, currently on CPAP Bronchodilators, ICU vent bundle. Cardiovascular: Monitor HR and BP keep MAP>65mmHg. Remains off Levophed Hydrocortisone DCd 08/04. Status post fluid and albumin resuscitation Echo showed EF 50-55% Renal: Monitor renal function, I/O's, Avoid nephrotoxins Renal is following- . On Free water 300ml Q6, monitor sodium level. Diuril 250mg IV daily per renal on hold, urine output is diminished so will restart Diuril 08/10 FEN/GI: On Pepcid 10mg BID for GI prophylaxis Tube feeds- Glucerna 1.5 with goal rate 45ml/hr, currently held for OR ID: Urine culture and sputum culture from 08/04 and 08/05/2017 growing E. coli and Pseudomonas pansensitive Continue with abx (Daptomycin Zosyn Clindamycin) per ID recommendations 07/24, 07/27 Wound cx :MRSA 07/24 BC :NGTD 07/23: urine cx: No growth 07/22 BC: NGTD 08/04 UC: GNR Path report: Abdominal soft tissue excision: Skin and subcutaneous adipose tissue with acute cellulitis and multifocal abscess formation 07/30 Wound vac exchange 07/27 s/p excisional debridement with vac change of torso and abdomen 07/24 s/p wide excisional debridement of soft tissue infection with VAC placement for necrotizing soft tissue infection of abdomen, right hip area right torso area measuring approximately 32 x 18 inches x 2 inches deep. Surgery -Dr. Dumont. s/p debridement and wound VAC change 08/10/[address] Dumont Heme: Monitor CBC, transfuse PRBC as needed Endocrine: Levothyroxine 112 mcg/day on hold. TSH:0.08 on 07/24 Glucose monitoring per ICU protocol. -- Continue SSI medium scale for glycemic control MSK: Dry gangrene setting in of toes on right- Likely pressors induced ischemia of toes. Seen by vascular surg- no additional vascular work up needed given palpable pulses, Prophylaxis: GI Prophylaxis Famotidine DVT Prophylaxis SCDs. Chemical DVT prophylaxis when cleared by Dr. Dumont-hold due to anemia requiring transfusion Lines: Central line placed on 07/22 DCd 08/05/17. Peripheral IVs 2, New right subclavian central line placed 08/06/17-heading to L subclavian. Place new central line if persistent pressor requirement Level 3 Discussed with [employer] (Tanja at bedside) Physician Rachael Johnston MD August 11, 2017 14:50
--- NOTE | 2017-08-11 16:03 | RADRPT ---
EXAM DATE/TIME: 08/11/2017 15:06 [facility] COMPARISON: CHEST SINGLE AP, August 09, 2017, 11:40. INDICATIONS : Evaluate for respiratory failure MEDICAL HISTORY : Diabetes mellitus type 2. Hypertension. SURGICAL HISTORY : Hysterectomy. ENCOUNTER: Subsequent ACUITY: 4 - 6 days PAIN SCORE: Non-responsive. LOCATION: Bilateral chest FINDINGS: Surgical clips overlie the right chest. Tracheostomy tube and enteric tube identified. The tip of the NG tube terminates at the esophagogastric junction. Lungs are clear. Borderline cardiomegaly. CONCLUSION: Clear lungs. Espinoza Carlos MD on August 11, 2017 at 16:00 Board Certified Radiologist. This report was verified electronically.
[2017-08-11] MEDS: SODIUM CHLORIDE 0.9% IV SCH (17:10)
[2017-08-11] MEDS: DAPTOMYCIN IV SCH (17:10)
--- NOTE | 2017-08-11 19:08 | PD.CONS ---
History of Present Illness Service Plastic Surgery Consult Requested By Primary team Reason for Consult Right wound following necrotizing fasciitis Primary Care Physician Lamar Ortiz MD Diagnoses: (1) Wound, open, trunk (2) Open wound of flank History of Present Illness Most of the history was obtained by review of medical records as patient poor historian. 62-year-old female who presented with right-sided abdominal flank and back erythema swelling and pain who was found in septic shock, and developed necrotizing fasciitis. Patient is now status post multiple debridements encompassing most of the right trunk and abdomen soft. Most recent debridement was yesterday. Per nursing patient has been off the for between 1 and 2 days. Patient's white count yesterday was still elevated at 15. Patient is trached and on the ventilator. Except as noted in the HPI review of systems negative for presenting complaint Past Family Social History Past Medical History Per chart review: Anxiety Depression Developmental delays - mental handicap Headaches/migraines Hypothyroidism GERD Chest pain Hx of UTIs Renal insufficiency Bladder incontinence Chronic back pain Past Surgical History Per chart review: Thyroid surgery EGD - 08/30/16 Cholecystectomy - 03/04/15 D&C Hysterectomy Colonoscopy - 07/30/16 and 08/11/15 Reported Medications Tramadol (Tramadol HCl) 50 Mg Tab 50 Mg PO Q8H PRN Levothyroxine (Levothyroxine Sodium) 175 Mcg Tab 175 Mcg PO DAILY Aspirin 325 Mg Tab 325 Mg PO DAILY Lisinopril 5 Mg Tab 5 Mg PO DAILY Zantac (Ranitidine HCl) 150 Mg Tab 150 Mg PO BID Uceris ER 24 HR (Budesonide) 9 Mg Vee 9 Mg PO DAILY Actos (Pioglitazone HCl) 15 Mg Tab 15 Mg PO DAILY Protonix (Pantoprazole Sodium) 40 Mg Tab 40 Mg PO DAILY Macrobid (Nitrofurantoin Monoh/Nitrofur Macro) 100 Mg Cap 100 Mg PO BID Ocuvite (Multiple Vitamins W/ Minerals) 1 Tab 1 Tab PO DAILY Calcium 600+D Plus Minerals (Calcium Carbonate-Vitamin D W/Minerals) 600-400 Mg- Unit Tab 1 Tab PO DAILY Allergies: Coded Allergies: No Known Allergies (Verified Allergy, Unknown, 07/22/17) Family History Per chart review: Mother - diabetes mellitus Sister - lupus erythematosus Social History Per chart review: Alcohol: none. Tobacco: never smoker. Drug: none. Meds list reviewed Past Family Social History Allergies: Coded Allergies: No Known Allergies (Verified Allergy, Unknown, 07/22/17) Physical Exam Vital Signs Vital Signs Date Time Temp Pulse Resp B/P (MAP) Pulse Ox O2 Delivery O2 Flow Rate FiO2 08/11/17 18:00 75 08/11/17 16:00 73 08/11/17 16:00 35 08/11/17 16:00 100 35 08/11/17 16:00 98.6 73 20 129/71 (90) 100 08/11/17 14:00 80 08/11/17 12:00 35 08/11/17 12:00 98.5 84 20 146/80 (102) 100 08/11/17 12:00 84 08/11/17 10:00 84 08/11/17 08:45 35 08/11/17 08:33 100 35 08/11/17 08:00 69 08/11/17 08:00 98.5 69 108/63 (78) 100 08/11/17 08:00 35 08/11/17 06:00 67 08/11/17 05:14 100 35 08/11/17 04:00 98.7 81 22 142/62 (88) 100 08/11/17 04:00 35 08/11/17 04:00 81 08/11/17 02:00 81 08/11/17 00:19 100 35 08/11/17 00:00 35 08/11/17 00:00 88 08/11/17 00:00 99.6 88 18 171/85 (113) 100 08/10/17 22:00 91 08/10/17 21:25 100 35 08/10/17 20:00 35 08/10/17 20:00 98.3 92 20 157/81 (106) 91 08/10/17 20:00 92 Physical Exam Treatment on ventilator does not follow commands Response to voice though not appropriately Setting 100% on 35% FiO2 Agitated Moist mucous membranes PERRLA respirations nonlabored moves all 4 extremities Right trunk VAC with good suction, sent to -150 mmHg will continuous with several 100 mL of thin serosanguineous fluid output Minimal erythema of adjacent skin circumferential to the back No crepitus appreciated Laboratory Laboratory Tests Test 08/10/17 23:25 08/11/17 05:34 Blood Urea Nitrogen 11 Creatinine 0.88 Random Glucose 90 Calcium Level 8.6 Phosphorus Level 2.9 Magnesium Level 1.7 Sodium Level 136 Potassium Level 3.3 Chloride Level 102 Carbon Dioxide Level 22.8 Anion Gap 11 Estimat Glomerular Filtration Rate 65 Total Creatine Kinase 209 Creatine Kinase MB 17.4 Creatine Kinase MB % 8.3 Troponin I LESS THAN 0.02 Free Thyroxine 0.10 Free Triiodothyronine (T3) pg/dL LESS THAN 0.50 Thyroid Stimulating Hormone 3rd Gen 77.000 Date/Time Source Procedure Growth Status 08/06/17 00:43 Blood Peripheral Aerobic Blood Culture - Final NO GROWTH IN 5 DAYS Complete 08/06/17 00:43 Blood Peripheral Anaerobic Blood Culture - Final QNS - SEE AEROBE REPORT Complete 08/05/17 05:40 Sputum Endotracheal Gram Stain - Final Complete 08/05/17 05:40 Sputum Culture - Final Pseudomonas Aeruginosa Klebsiella Pneumoniae Complete 08/04/17 22:08 Urine Catheterized Urine Urine Culture - Final Klebsiella Pneumoniae Pseudomonas Aeruginosa Complete 07/27/17 15:30 Wound Other Fungal Smear - Final NO FUNGAL ELEMENTS SEEN. Resulted 07/27/17 15:30 Wound Other Fungal Culture - Preliminary NO GROWTH IN 2 WEEKS Resulted Result Diagram: 08/10/17 1630 08/10/17 2325 Assessment and Plan Problem List: (1) Open wound of flank ICD Codes: S31.109A - Unspecified open wound of abdominal wall, unspecified quadrant without penetration into peritoneal cavity, initial encounter Assessment and Plan 62-year-old female with superficial fascial wound encompassing the majority of her right lateral thorax and abdomen, status post serial debridements by general surgery for necrotizing fasciitis, most recently yesterday Will monitor peripherally as wound remains in evolution Once patient and wound stable, will likely need split-thickness skin graft as closure Yogi Zimmerman MD August 11, 2017 19:08
[2017-08-12] VITALS (53 sets, daily range): BP systolic 99–182; BP diastolic 55–103; PULSE 58–98; RESP 14–20; TEMP 98.2–99.2; O2SAT 98–100
[2017-08-12] MEDS: DILTIAZEM HCL 60 MG TAB PO SCH ×5 (00:06→23:22)
[2017-08-12] MEDS: PIPERACIL-TAZO 4.5 GM PREMIX 100 ML IV SCH ×5 (00:07→23:22)
[2017-08-12] MEDS: fentaNYL DRIP 250 ML IV PRN ×2 (03:37→19:34)
[2017-08-12] MEDS: INSULIN NovoLIN REGULAR SUPPLEMENTAL SCALE SQ SCH ×7 (04:00→23:22)
[2017-08-12] MEDS: FREE WATER G-TUBE SCH ×5 (05:22→23:22)
[2017-08-12 05:32] LABS: BASOPHIL # 0.2 TH/MM3 (0-0.2); BASOPHIL % 1.1 % (0.0-2.0); EOSINOPHIL # 0.4 TH/MM3 (0-0.4); EOSINOPHIL % 1.9 % (0.0-4.0); HEMATOCRIT 28.2 % (35.0-46.0); HEMOGLOBIN 9.2 GM/DL (11.6-15.3); LYMPH % 13.2 % (9.0-44.0); LYMPHOCYTE # 2.6 TH/MM3 (1.0-4.8); MEAN CELL VOLUME 81.9 FL (80.0-100.0); MEAN CORPUSCULAR HEMOGLOBIN 26.7 PG (27.0-34.0); MEAN CORPUSCULAR HGB CONC 32.6 % (32.0-36.0); MEAN PLATELET VOLUME 5.7 FL (7.0-11.0); MONO % 6.5 % (0.0-8.0); MONOCYTE # 1.3 TH/MM3 (0-0.9); NEUT % 77.3 % (16.0-70.0); PLATELET COUNT 409 TH/MM3 (150-450); RED BLOOD COUNT 3.44 MIL/MM3 (4.00-5.30); RED CELL DISTRIBUTION WIDTH 16.2 % (11.6-17.2); WHITE BLOOD COUNT 19.4 TH/MM3 (4.0-11.0)
[2017-08-12 05:45] LABS: BICARBONATE 21.9 MEQ/L (21.0-32.0); CALCIUM 8.7 MG/DL (8.5-10.1); CREATININE 1.01 MG/DL (0.50-1.00)
[2017-08-12] MEDS: DOCUSATE SODIUM 50 MG/SENNA 8.6 MG TAB PO SCH ×2 (07:57→20:33)
[2017-08-12] MEDS: CHLOROTHIAZIDE SOD 500 MG VIAL IV SCH (08:33)
[2017-08-12] MEDS: CALCIUM/VITAMIN D 250 MG/125 U TAB PO SCH (08:34)
[2017-08-12] MEDS: FAMOTIDINE 20 MG TAB PO SCH ×2 (08:34→20:33)
[2017-08-12] MEDS: SODIUM CHLORIDE 0.9% FLUSH 10 ML FLUSH IV FLUSH SCH ×2 (08:34→20:32)
[2017-08-12] MEDS: CHLORHEXIDINE 0.12% (ORAL KIT) 15 ML CUP MT SCH ×2 (08:34→20:32)
[2017-08-12] MEDS: MULTIVITAMIN-OPHTHALMIC 1 TAB PO SCH (08:34)
[2017-08-12 08:56] LABS: BANDS 2 % (0-6); BASOPHILS 1 % (0-2); LYMPHOCYTES 15 % (9-44); METAMYELOCYTES 2 % (0-1); MONOCYTES 7 % (0-8); POLYS (SEG NEUTROPHILS) 67 % (16-70); PROMYELOCYTES 1 % (0-0)
--- NOTE | 2017-08-12 12:09 | HHI.PR ---
Subjective Subjective Notes vented on trach Objective Vitals/I&O Vital Signs Date Time Temp Pulse Resp B/P (MAP) Pulse Ox O2 Delivery O2 Flow Rate FiO2 08/12/17 12:00 61 08/12/17 12:00 35 08/12/17 12:00 98.5 20 100/55 (70) 100 08/10/17 18:42 Room Air Labs Laboratory Tests Test 08/11/17 20:51 08/12/17 04:20 Potassium Level 4.1 3.8 White Blood Count 19.4 Red Blood Count 3.44 Hemoglobin 9.2 Hematocrit 28.2 Mean Corpuscular Volume 81.9 Mean Corpuscular Hemoglobin 26.7 Mean Corpuscular Hemoglobin Concent 32.6 Red Cell Distribution Width 16.2 Platelet Count 409 Mean Platelet Volume 5.7 Neutrophils (%) (Auto) 77.3 Lymphocytes (%) (Auto) 13.2 Monocytes (%) (Auto) 6.5 Eosinophils (%) (Auto) 1.9 Basophils (%) (Auto) 1.1 Neutrophils # (Auto) 15.0 Lymphocytes # (Auto) 2.6 Monocytes # (Auto) 1.3 Eosinophils # (Auto) 0.4 Basophils # (Auto) 0.2 CBC Comment AUTO DIFF Differential Total Cells Counted 100 Neutrophils % (Manual) 67 Band Neutrophils % 2 Lymphocytes % 15 Monocytes % 7 Eosinophils % 5 Basophils % 1 Neutrophils # (Manual) 14.0 Metamyelocytes 2 Promyelocytes 1 Differential Comment FINAL DIFF MANUAL Platelet Estimate NORMAL Platelet Morphology Comment NORMAL Red Cell Morphology Comment NORMAL Blood Urea Nitrogen 13 Creatinine 1.01 Random Glucose 118 Calcium Level 8.7 Sodium Level 134 Chloride Level 102 Carbon Dioxide Level 21.9 Anion Gap 10 Estimat Glomerular Filtration Rate 56 Date/Time Source Procedure Growth Status 08/06/17 00:43 Blood Peripheral Aerobic Blood Culture - Final NO GROWTH IN 5 DAYS Complete 08/06/17 00:43 Blood Peripheral Anaerobic Blood Culture - Final QNS - SEE AEROBE REPORT Complete 08/05/17 05:40 Sputum Endotracheal Gram Stain - Final Complete 08/05/17 05:40 Sputum Culture - Final Pseudomonas Aeruginosa Klebsiella Pneumoniae Complete 08/04/17 22:08 Urine Catheterized Urine Urine Culture - Final Klebsiella Pneumoniae Pseudomonas Aeruginosa Complete 07/27/17 15:30 Wound Other Fungal Smear - Final NO FUNGAL ELEMENTS SEEN. Resulted 07/27/17 15:30 Wound Other Fungal Culture - Preliminary NO GROWTH IN 2 WEEKS Resulted Narrative Exam VAC intact on flank wound A/P Assessment and Plan 62 year old female with extensive soft tissue infection -s/p debridement, wound vac placement and trach -Plastic Surgery recommends skin graft when wound ready -Dr Duomnt back tomorrow Wallace Watson MD August 12, 2017 12:09
[2017-08-12] MEDS: SODIUM CHLORIDE 0.9% IV SCH (17:17)
[2017-08-12] MEDS: DAPTOMYCIN IV SCH (17:17)
[2017-08-12] MEDS ORDERED: PADIMATE (CHAPSTICK) 4.5 GM TUBE TOPICAL PRN (17:30)
--- NOTE | 2017-08-12 18:25 | HHI.CCPN ---
Subjective Remarks/Hospital Course This is a 62-year-old female with a history of developmental delay and recurrent urinary tract infections who presents with new onset right-sided abdominal and flank pain. Per the [facility] service admission note this is been going on for approximately 4 weeks. Patient has a history of developmental delay and is difficult to get a complete history from her, no analysis with her on my evaluation. On my evaluation she endorses flank pain radiating around to her chest. She endorses subjective chills. Denies recent fevers to me. Also endorses nausea, vomiting. In the emergency department she was found to have significant erythema, rubor, dolor, and edema from approximately the fifth intercostal space down to the eighth or ninth intercostal space wrapping around from the midline in the back all the way around to just medial to the breast. CT scan of the abdomen and pelvis confirms significant subcutaneous edema, but this area of edema appears to be contained by intact fascial planes, particularly in the midline of the back. Laboratory evidence is significant for a white blood cell count of 27k, creatinine is 3.58, potassium 5.4, bicarb of 17.9, anion gap elevated at 15, BUN of 64, an initial lactate of 5.1. In the emergency department she received 3 L of crystalloid IV fluids. Despite this she is hypotensive with a mean arterial pressure of 51. Critical care medicine is consulted to evaluate manage her presumed septic shock secondary to severe cellulitis of the trunk. I have given her an additional liter of crystalloid and then placed central venous access, see separate procedure note for details. In addition her lactate is starting to clear and is now 2.9 with an more currently pending, however it is not clearing fast enough and she remains oliguric. I placed a [place] for accurate hourly I's and O's. The remainder of the review systems for the patient is negative except documented in the HPI, although this is severely limited by her baseline developmental delay. Subjective 07/23: Patient remains on vasopressors, noted metabolic acidosis, bicarbonate level of 15. Sodium bicarbonate infusion initiated. 07/24 Patient was intubated early this morning now on Vasopressin and Neosyn 300 mics in addition patient is on Amio and Bicarb drips. WBC increased 31. CT abd/pelvis showed right sided cellulites and developing myositis. 07/25 Patient went to OR yesterday s/p wide excisional debridement of soft tissue infection with VAC placement for necrotizing soft tissue infection of abdomen, right hip area right torso area measuring approximately 32 x 18 inches x 2 inches deep. She remains on Vasopressin 0.04 and Neosyn down to 120 mics. On Amio drip. 07/26 No events overnight. Off all pressors, WBC is trending down. On Amio drip. 07/27 Patient remains intubated for return to OR today and wound vac exchange. 07/28 Patient s/p excisional debridement with vac change yesterday intubated and sedated with Fentanyl infusion. 07/29 Patient remains intubated and sedated with Fentanyl and Versed drips. Afebrile. 07/30 No events overnight. Patient remains sedated with Fentanyl drip and intubated. For OR today for further debridement and wound vac exchange. Afebrile. 07/31 Patient went to OR yesterday for vac exchange, Afebrile, WBC is trending down, Intubated and now sedated with Fentanyl and Versed 2mg/hr 08/01: Remains sedated, orally intubated on mechanical ventilation. Scheduled for OR today for vac exchange. 08/02: Remains intubated scheduled for OR again today. Antibiotics per ID. Slight increase in WBC count is 17.2 08/03: s/p Excisional debridement with VAC change yesterday by Dr. Dumont. Tolerating CPAP but not waking up or following commands. Dr. Dumont plans for further wound debridement and VAC change either tomorrow or Monday. Anticipating OR will leave patient intubated. WBC 19.9 today, will discuss with ID 08/04: Remains intubated, intermittently agitated on the vent. Or planned for tomorrow by Dr. Dumont. WBC count is slightly improved today 16.7 08/05: Patient is more critical today with worsening sepsis. T-max 102, WBC count up to 22.6. Hypotensive blood pressure 78/51. I have ordered 1 L normal saline bolus. Pancultured overnight. Zosyn started by Dr. Mcdonald. I will start micafungin also. Will inform ID. Dr. Dumont planning for OR today 08/06: Evaluated by night can operator for persistent worsening hypotension called to bedside to evaluate patient with worsening hypotension. Given 500 cc 5 % albumin 1 without improvement in hypotension. A right subclavian central line was placed and norepinephrine infusion was started for persistent septic shock. Currently map remains above 65, on Levophed at 4 mcg/min. WBC 16.1 slightly improved from yesterday. Hemoglobin has dropped to 7.2 approximately 2 g drop. Transfuse 1 unit of PRBC stat. T-max 100.7, urine culture growing GNR 08/07: Remains sedated, orally intubated on mechanical ventilation. Wound VAC in place. On Levophed 2 mics per minute for hypotension. 08/08: Sedated, orally intubated on mechanical ventilation. Wound VAC remains in place. Tolerating tube feeds. Discussed with Dr. Dumont who is planning to take patient to OR tomorrow for wound VAC change as well as tracheostomy. 08/09: OR today for wound VAC change and tracheostomy. Remains on Levophed at 1 mcg/min. If continued Levophed requirement, right subclavian central line heading towards the left subclavian need to be replaced 08/10: Patient went to OR today for wound vac change and tracheostomy. Had further wound debridement. Profoundly hypothermic. Temperature 92. Warming blanket applied. Send CBC. Discussed with ID. 08/11: Late entry note. Pt seen at 0830. Afebrile. No acute events overnight. Patient currently normothermic, WBC count downtrending. Palpable pulses B/L dorsalis pedis and post tibialis. 08/12 : No acute events. Possible plan for wound VAC replacement tomorrow. Overnight the wound VAC was dislodged Dr. Floyd follow in for wound VAC adjustment. Patient off sedation awake alert mouthing words appropriately. Objective Vital Signs Date Time Temp Pulse Resp B/P (MAP) Pulse Ox O2 Delivery O2 Flow Rate FiO2 08/12/17 18:00 74 08/12/17 16:32 100 35 08/12/17 16:00 99.0 20 99/56 (70) 08/10/17 18:42 Room Air Intake and Output 08/12/17 08/12/17 08/13/17 08:00 16:00 00:00 Intake Total 1649 ml 100 ml 1016 ml Output Total 1075 ml 1500 ml Balance 574 ml 100 ml -484 ml Result Diagram: 08/12/17 0420 08/12/17 042 Imaging Last Impressions Chest X-Ray 07/30/17 0000 Signed Impressions: Service Date/Time: Sunday, July 30, 2017 08:14 - CONCLUSION: Underinflation with atelectasis at the lung bases. Otherwise, no acute finding is seen given the technique. Derrick García MD Brain MRI 07/28/17 0000 Signed Impressions: Service Date/Time: Friday, July 28, 2017 14:38 - CONCLUSION: 1. Unremarkable MRI examination the brain. 2. No acute abnormality or interval change. Bob Daly MD Chest CT 07/24/17 0000 Signed Impressions: Service Date/Time: Monday, July 24, 2017 05:36 - CONCLUSION: 1. Stranding in the subcutaneous tissues about the right flank with fluid adjacent to the latissimus dorsi. Stranding extends up into the right breast. Findings could represent developing cellulitis. 2. In addition, there is now a small right-sided effusion with bilateral dependent atelectatic changes. Jerome Brady MD Abdomen/Pelvis CT 07/24/17 0000 Signed Impressions: Service Date/Time: Monday, July 24, 2017 05:36 - CONCLUSION: 1. CT findings concerning for a right sided cellulitis and developing myositis. There is some asymmetric prominence of the latissimus dorsi muscle on the right. Unorganized fluid in the deep subcutaneous tissues adjacent to the muscle belly. No drainable fluid collection, however. 2. Developing dependent areas of consolidation, right greater than left with an associated small right-sided effusion. Jerome Brady MD Head CT 07/22/17 1253 Signed Impressions: Service Date/Time: Saturday, July 22, 2017 13:26 - CONCLUSION: No acute disease. Derrick Henry MD Objective Remarks GENERAL: Elderly female, lying in bed intubated. Sedated with Fentanyl infusion to maintain vent synchrony HEENT: Normocephalic. Atraumatic. Pupils equal, round, reactive, conjugate. NECK: Trachea is midline. There is no JVD. Tracheostomy in place with minimal oozing CHEST: Equal chest rise. On PRVC CARDIOVASCULAR: RRR, nl S1, S2 ABDOMEN: Soft, nontender, nondistended, +BS, wound Vac in place on the right flank covering extensive areas of debridement. MUSCULOSKELETAL: Gangrene of 2-4 toes on right. Hypothermic NEUROLOGICAL: Sedated, under the influence of residual anesthesia. No spontaneous movements yet Date of Insertion: Jul 22, 2017 Date of Insertion: August 06, 2017 Line: Central Venous Catheter A/P Assessment and Plan Active problems: Acute respiratory failure Septic shock, improving Hypothermia Right flank necrotizing fasciitis Pneumonia (HCAP) Acute metabolic encephalopathy Anemia requiring transfusion Acute kidney injury Elevated CK Anemia Thrombocytopenia Hypothyroidism Plan: Neurologic: Neuro checks per ICU protocol. Fentanyl, Versed infusion for sedation and vent synchrony. Daily sedation vacation Hypothermia may be postop, environmental. Warming blanket applied 07/22 CT brain: No acute disease. MRI brain 07/28 Unremarkable Tylenol 650 mg every 6 hours as needed for pain and/or temperature greater than 100.5 Respiratory: Continue with vent support keep sats >92% On PRVC. status post tracheostomy today by Dr. Dumont in the OR 08/10/17. Daily SBT, currently on CPAP Bronchodilators, ICU vent bundle. Cardiovascular: Monitor HR and BP keep MAP>65mmHg. Remains off Levophed Hydrocortisone DCd 08/04. Status post fluid and albumin resuscitation Echo showed EF 50-55% Renal: Monitor renal function, I/O's, Avoid nephrotoxins Renal is following- . On Free water 300ml Q6, monitor sodium level. Diuril 250mg IV daily per renal on hold, urine output is diminished so will restart Diuril 08/10 FEN/GI: On Pepcid 10mg BID for GI prophylaxis Tube feeds- Glucerna 1.5 with goal rate 45ml/hr, currently held for OR ID: Urine culture and sputum culture from 08/04 and 08/05/2017 growing E. coli and Pseudomonas pansensitive Continue with abx (Daptomycin Zosyn Clindamycin) per ID recommendations 07/24, 07/27 Wound cx :MRSA 07/24 BC :NGTD 07/23: urine cx: No growth 07/22 BC: NGTD 08/04 UC: GNR Path report: Abdominal soft tissue excision: Skin and subcutaneous adipose tissue with acute cellulitis and multifocal abscess formation 07/30 Wound vac exchange 07/27 s/p excisional debridement with vac change of torso and abdomen 07/24 s/p wide excisional debridement of soft tissue infection with VAC placement for necrotizing soft tissue infection of abdomen, right hip area right torso area measuring approximately 32 x 18 inches x 2 inches deep. Surgery -Dr. Dumont. s/p debridement and wound VAC change 08/10/[address] Dumont Heme: Monitor CBC, transfuse PRBC as needed Endocrine: Levothyroxine 112 mcg/day on hold. TSH:0.08 on 07/24 Glucose monitoring per ICU protocol. -- Continue SSI medium scale for glycemic control MSK: Dry gangrene setting in of toes on right- Likely pressors induced ischemia of toes. Seen by vascular surg- no additional vascular work up needed given palpable pulses, Prophylaxis: GI Prophylaxis Famotidine DVT Prophylaxis SCDs. Chemical DVT prophylaxis when cleared by Dr. Dumont-susanne due to anemia requiring transfusion Lines: Central line placed on 07/22 DCd 08/05/17. Peripheral IVs 2, New right subclavian central line placed 08/06/17-heading to L subclavian. Place new central line if persistent pressor requirement Level 3 Discussed with TALENT ACQUISITION OPERATIONS MANAGER (Tanja at bedside) Physician Rachael Johnston MD August 12, 2017 18:25
[2017-08-13] VITALS (54 sets, daily range): BP systolic 93–172; BP diastolic 54–92; PULSE 61–86; RESP 15–17; TEMP 98.2–98.8; O2SAT 100
[2017-08-13] MEDS: INSULIN NovoLIN REGULAR SUPPLEMENTAL SCALE SQ SCH ×5 (04:00→20:00)
[2017-08-13] MEDS: FREE WATER G-TUBE SCH ×4 (05:47→22:00)
[2017-08-13] MEDS: DILTIAZEM HCL 60 MG TAB PO SCH ×3 (05:47→18:00)
[2017-08-13] MEDS: PIPERACIL-TAZO 4.5 GM PREMIX 100 ML IV SCH ×3 (05:48→18:50)
[2017-08-13 06:05] LABS: BICARBONATE 21.1 MEQ/L (21.0-32.0); CALCIUM 8.6 MG/DL (8.5-10.1); CREATININE 0.88 MG/DL (0.50-1.00); MAGNESIUM 1.8 MG/DL (1.5-2.5)
[2017-08-13 06:41] LABS: PHOSPHORUS 1.8 MG/DL (2.5-4.9)
[2017-08-13 07:15] LABS: AUTOMATED NEUTROPHIL # 11.4 TH/MM3 (1.8-7.7); BASOPHIL # 0.2 TH/MM3 (0-0.2); BASOPHIL % 1.1 % (0.0-2.0); EOSINOPHIL # 0.5 TH/MM3 (0-0.4); EOSINOPHIL % 2.9 % (0.0-4.0); HEMATOCRIT 27.5 % (35.0-46.0); HEMOGLOBIN 8.9 GM/DL (11.6-15.3); LYMPH % 17.5 % (9.0-44.0); LYMPHOCYTE # 2.8 TH/MM3 (1.0-4.8); MEAN CELL VOLUME 81.7 FL (80.0-100.0); MEAN CORPUSCULAR HEMOGLOBIN 26.3 PG (27.0-34.0); MEAN CORPUSCULAR HGB CONC 32.2 % (32.0-36.0); MEAN PLATELET VOLUME 5.9 FL (7.0-11.0); MONO % 6.1 % (0.0-8.0); NEUT % 72.4 % (16.0-70.0); PLATELET COUNT 372 TH/MM3 (150-450); RED BLOOD COUNT 3.36 MIL/MM3 (4.00-5.30); RED CELL DISTRIBUTION WIDTH 15.9 % (11.6-17.2); WHITE BLOOD COUNT 15.8 TH/MM3 (4.0-11.0)
[2017-08-13] MEDS: DOCUSATE SODIUM 50 MG/SENNA 8.6 MG TAB PO SCH ×2 (09:00→21:00)
[2017-08-13] MEDS: CHLORHEXIDINE 0.12% (ORAL KIT) 15 ML CUP MT SCH ×2 (09:00→22:23)
[2017-08-13] MEDS: CHLOROTHIAZIDE SOD 500 MG VIAL IV SCH (10:33)
[2017-08-13] MEDS: SODIUM CHLORIDE 0.9% FLUSH 10 ML FLUSH IV FLUSH SCH ×2 (10:33→22:23)
[2017-08-13] MEDS: MULTIVITAMIN-OPHTHALMIC 1 TAB PO SCH (10:33)
[2017-08-13] MEDS: FAMOTIDINE 20 MG TAB PO SCH ×2 (10:34→22:23)
[2017-08-13] MEDS: CALCIUM/VITAMIN D 250 MG/125 U TAB PO SCH (10:34)
[2017-08-13 10:52] LABS: BANDS 4 % (0-6); BASOPHILS 1 % (0-2); LYMPHOCYTES 14 % (9-44); METAMYELOCYTES 2 % (0-1); MONOCYTES 3 % (0-8); MYELOCYTES 1 % (0-0); NEUTROPHIL # MANUAL DIFF 12.6 TH/MM3 (1.8-7.7); POLYS (SEG NEUTROPHILS) 72 % (16-70); PROMYELOCYTES 1 % (0-0)
--- NOTE | 2017-08-13 17:35 | HHI.PR ---
Subjective Subjective Notes on vent via trach Objective Vitals/I&O Vital Signs Date Time Temp Pulse Resp B/P (MAP) Pulse Ox O2 Delivery O2 Flow Rate FiO2 08/13/17 16:22 100 35 08/13/17 06:00 63 08/13/17 04:00 98.2 95/56 (69) 08/12/17 16:00 20 08/10/17 18:42 Room Air Labs Laboratory Tests Test 08/13/17 04:47 White Blood Count 15.8 Red Blood Count 3.36 Hemoglobin 8.9 Hematocrit 27.5 Mean Corpuscular Volume 81.7 Mean Corpuscular Hemoglobin 26.3 Mean Corpuscular Hemoglobin Concent 32.2 Red Cell Distribution Width 15.9 Platelet Count 372 Mean Platelet Volume 5.9 Neutrophils (%) (Auto) 72.4 Lymphocytes (%) (Auto) 17.5 Monocytes (%) (Auto) 6.1 Eosinophils (%) (Auto) 2.9 Basophils (%) (Auto) 1.1 Neutrophils # (Auto) 11.4 Lymphocytes # (Auto) 2.8 Monocytes # (Auto) 1.0 Eosinophils # (Auto) 0.5 Basophils # (Auto) 0.2 CBC Comment AUTO DIFF Differential Total Cells Counted 100 Neutrophils % (Manual) 72 Band Neutrophils % 4 Lymphocytes % 14 Monocytes % 3 Eosinophils % 2 Basophils % 1 Neutrophils # (Manual) 12.6 Metamyelocytes 2 Myelocytes 1 Promyelocytes 1 Differential Comment FINAL DIFF MANUAL Platelet Estimate NORMAL Platelet Morphology Comment NORMAL Red Cell Morphology Comment NORMAL Blood Urea Nitrogen 13 Creatinine 0.88 Random Glucose 88 Calcium Level 8.6 Phosphorus Level 1.8 Magnesium Level 1.8 Sodium Level 135 Potassium Level 3.8 Chloride Level 103 Carbon Dioxide Level 21.1 Anion Gap 11 Estimat Glomerular Filtration Rate 65 Date/Time Source Procedure Growth Status 08/06/17 00:43 Blood Peripheral Aerobic Blood Culture - Final NO GROWTH IN 5 DAYS Complete 08/06/17 00:43 Blood Peripheral Anaerobic Blood Culture - Final QNS - SEE AEROBE REPORT Complete 08/05/17 05:40 Sputum Endotracheal Gram Stain - Final Complete 08/05/17 05:40 Sputum Culture - Final Pseudomonas Aeruginosa Klebsiella Pneumoniae Complete 08/04/17 22:08 Urine Catheterized Urine Urine Culture - Final Klebsiella Pneumoniae Pseudomonas Aeruginosa Complete 07/27/17 15:30 Wound Other Fungal Smear - Final NO FUNGAL ELEMENTS SEEN. Resulted 07/27/17 15:30 Wound Other Fungal Culture - Preliminary NO GROWTH IN 2 WEEKS Resulted Abdomen: Other (vac to torso with good seal,) A/P Assessment and Plan Soft tissues necrotizing infection s/p incision and wide excisional debridement and multiple vac changes PLAN Will change vac tomorrow continue abx vent per isc close monitoring plastics for skin grafting Tip Dumont MD August 13, 2017 17:35
[2017-08-13] MEDS: SODIUM CHLORIDE 0.9% IV SCH (18:00)
[2017-08-13] MEDS: DAPTOMYCIN IV SCH (18:00)
--- NOTE | 2017-08-13 20:07 | HHI.CCPN ---
Subjective Remarks/Hospital Course This is a 62-year-old female with a history of developmental delay and recurrent urinary tract infections who presents with new onset right-sided abdominal and flank pain. Per the [facility] service admission note this is been going on for approximately 4 weeks. Patient has a history of developmental delay and is difficult to get a complete history from her, no analysis with her on my evaluation. On my evaluation she endorses flank pain radiating around to her chest. She endorses subjective chills. Denies recent fevers to me. Also endorses nausea, vomiting. In the emergency department she was found to have significant erythema, rubor, dolor, and edema from approximately the fifth intercostal space down to the eighth or ninth intercostal space wrapping around from the midline in the back all the way around to just medial to the breast. CT scan of the abdomen and pelvis confirms significant subcutaneous edema, but this area of edema appears to be contained by intact fascial planes, particularly in the midline of the back. Laboratory evidence is significant for a white blood cell count of 27k, creatinine is 3.58, potassium 5.4, bicarb of 17.9, anion gap elevated at 15, BUN of 64, an initial lactate of 5.1. In the emergency department she received 3 L of crystalloid IV fluids. Despite this she is hypotensive with a mean arterial pressure of 51. Critical care medicine is consulted to evaluate manage her presumed septic shock secondary to severe cellulitis of the trunk. I have given her an additional liter of crystalloid and then placed central venous access, see separate procedure note for details. In addition her lactate is starting to clear and is now 2.9 with an more currently pending, however it is not clearing fast enough and she remains oliguric. I placed a Scales for accurate hourly I's and O's. The remainder of the review systems for the patient is negative except documented in the HPI, although this is severely limited by her baseline developmental delay. Subjective 07/23: Patient remains on vasopressors, noted metabolic acidosis, bicarbonate level of 15. Sodium bicarbonate infusion initiated. 07/24 Patient was intubated early this morning now on Vasopressin and Neosyn 300 mics in addition patient is on Amio and Bicarb drips. WBC increased 31. CT abd/pelvis showed right sided cellulites and developing myositis. 07/25 Patient went to OR yesterday s/p wide excisional debridement of soft tissue infection with VAC placement for necrotizing soft tissue infection of abdomen, right hip area right torso area measuring approximately 32 x 18 inches x 2 inches deep. She remains on Vasopressin 0.04 and Neosyn down to 120 mics. On Amio drip. 07/26 No events overnight. Off all pressors, WBC is trending down. On Amio drip. 07/27 Patient remains intubated for return to OR today and wound vac exchange. 07/28 Patient s/p excisional debridement with vac change yesterday intubated and sedated with Fentanyl infusion. 07/29 Patient remains intubated and sedated with Fentanyl and Versed drips. Afebrile. 07/30 No events overnight. Patient remains sedated with Fentanyl drip and intubated. For OR today for further debridement and wound vac exchange. Afebrile. 07/31 Patient went to OR yesterday for vac exchange, Afebrile, WBC is trending down, Intubated and now sedated with Fentanyl and Versed 2mg/hr 08/01: Remains sedated, orally intubated on mechanical ventilation. Scheduled for OR today for vac exchange. 08/02: Remains intubated scheduled for OR again today. Antibiotics per ID. Slight increase in WBC count is 17.2 08/03: s/p Excisional debridement with VAC change yesterday by Dr. Dumont. Tolerating CPAP but not waking up or following commands. Dr. Dumont plans for further wound debridement and VAC change either tomorrow or Monday. Anticipating OR will leave patient intubated. WBC 19.9 today, will discuss with ID 08/04: Remains intubated, intermittently agitated on the vent. Or planned for tomorrow by Dr. Dumont. WBC count is slightly improved today 16.7 08/05: Patient is more critical today with worsening sepsis. T-max 102, WBC count up to 22.6. Hypotensive blood pressure 78/51. I have ordered 1 L normal saline bolus. Pancultured overnight. Zosyn started by Dr. Mcdonald. I will start micafungin also. Will inform ID. Dr. Dumont planning for OR today 08/06: Evaluated by night ip counsel for persistent worsening hypotension called to bedside to evaluate patient with worsening hypotension. Given 500 cc 5 % albumin 1 without improvement in hypotension. A right subclavian central line was placed and norepinephrine infusion was started for persistent septic shock. Currently map remains above 65, on Levophed at 4 mcg/min. WBC 16.1 slightly improved from yesterday. Hemoglobin has dropped to 7.2 approximately 2 g drop. Transfuse 1 unit of PRBC stat. T-max 100.7, urine culture growing GNR 08/07: Remains sedated, orally intubated on mechanical ventilation. Wound VAC in place. On Levophed 2 mics per minute for hypotension. 08/08: Sedated, orally intubated on mechanical ventilation. Wound VAC remains in place. Tolerating tube feeds. Discussed with Dr. Dumont who is planning to take patient to OR tomorrow for wound VAC change as well as tracheostomy. 08/09: OR today for wound VAC change and tracheostomy. Remains on Levophed at 1 mcg/min. If continued Levophed requirement, right subclavian central line heading towards the left subclavian need to be replaced 08/10: Patient went to OR today for wound vac change and tracheostomy. Had further wound debridement. Profoundly hypothermic. Temperature 92. Warming blanket applied. Send CBC. Discussed with ID. 08/11: Late entry note. Pt seen at 0830. Afebrile. No acute events overnight. Patient currently normothermic, WBC count downtrending. Palpable pulses B/L dorsalis pedis and post tibialis. 08/12 : No acute events. Possible plan for wound VAC replacement tomorrow. Overnight the wound VAC was dislodged Dr. Floyd follow in for wound VAC adjustment. Patient off sedation awake alert mouthing words appropriately. 08/13: doing well. conversant. remains on vent: when PSV support weaned, becomes tachypneic. going to OR tomorrow for washout. afebrile. denies complaints. Objective Vital Signs Date Time Temp Pulse Resp B/P (MAP) Pulse Ox O2 Delivery O2 Flow Rate FiO2 08/13/17 16:22 100 35 08/13/17 11:00 75 17 127/71 (89) 08/13/17 08:00 98.8 08/10/17 18:42 Room Air Intake and Output 08/13/17 08/13/17 08/14/17 08:00 16:00 00:00 Intake Total 1053 ml Output Total 1080 ml Balance -27 ml Result Diagram: 08/13/17 0447 08/13/17 0447 Imaging Last Impressions Chest X-Ray 07/30/17 0000 Signed Impressions: Service Date/Time: Sunday, July 30, 2017 08:14 - CONCLUSION: Underinflation with atelectasis at the lung bases. Otherwise, no acute finding is seen given the technique. Derrick García MD Brain MRI 07/28/17 0000 Signed Impressions: Service Date/Time: Friday, July 28, 2017 14:38 - CONCLUSION: 1. Unremarkable MRI examination the brain. 2. No acute abnormality or interval change. Bob Daly MD Chest CT 07/24/17 0000 Signed Impressions: Service Date/Time: Monday, July 24, 2017 05:36 - CONCLUSION: 1. Stranding in the subcutaneous tissues about the right flank with fluid adjacent to the latissimus dorsi. Stranding extends up into the right breast. Findings could represent developing cellulitis. 2. In addition, there is now a small right-sided effusion with bilateral dependent atelectatic changes. Jerome Brady MD Abdomen/Pelvis CT 07/24/17 0000 Signed Impressions: Service Date/Time: Monday, July 24, 2017 05:36 - CONCLUSION: 1. CT findings concerning for a right sided cellulitis and developing myositis. There is some asymmetric prominence of the latissimus dorsi muscle on the right. Unorganized fluid in the deep subcutaneous tissues adjacent to the muscle belly. No drainable fluid collection, however. 2. Developing dependent areas of consolidation, right greater than left with an associated small right-sided effusion. Jerome Brady MD Head CT 07/22/17 1253 Signed Impressions: Service Date/Time: Saturday, July 22, 2017 13:26 - CONCLUSION: No acute disease. Derrick Henry MD Objective Remarks GENERAL: Elderly female, lying in bed, trached. HEENT: Normocephalic. Atraumatic. Pupils equal, round, reactive, conjugate. NECK: Trachea is midline. There is no JVD. Tracheostomy in place with minimal oozing CHEST: Equal chest rise. PSV 10/5/30%. CARDIOVASCULAR: RRR, nl ABDOMEN: Soft, nontender, nondistended, wound Vac in place on the right flank covering extensive areas of debridement. MUSCULOSKELETAL: Gangrene of 2-4 toes on right. NEUROLOGICAL: awake, alert, follows commands. no focal deficits. Date of Insertion: Jul 22, 2017 Date of Insertion: August 06, 2017 Line: Central Venous Catheter A/P Assessment and Plan Active problems: Chronic hypoxic and hypercarbic respiratory failure Septic shock, resolved. Hypothermia- resolved Right flank necrotizing fasciitis Pneumonia (HCAP) Acute metabolic encephalopathy- resolved Anemia requiring transfusion Acute kidney injury- resolved Elevated CK- resolved Thrombocytopenia - resolved Hypothyroidism Acute protein calorie malnutrition- moderate chronic pain secondary to post-surgical debridement and wound Plan: Neurologic: Neuro checks per ICU protocol. d/c fent, versed tramadol, oxycodone, morphine prn pain 07/22 CT brain: No acute disease. MRI brain 07/28 Unremarkable Respiratory: Continue with vent support keep sats >92% PSV //%. daily weaning of PSV. may be close to t-piece trials. status post tracheostomy by Dr. Dumont in the OR 08/10/17. Bronchodilators, ICU vent bundle. Cardiovascular: Monitor HR and BP keep MAP>65mmHg. Echo showed EF 50-55% diltiazem 60mg po q6h Renal: Monitor renal function, I/O's, Avoid nephrotoxins Renal is following- . decrease Free water to 200ml Q8, monitor sodium level. Diuril 250mg change to po. FEN/GI: On Pepcid 10mg BID for GI prophylaxis Tube feeds- Glucerna 1.5 with goal rate 45ml/hr ID: Urine culture and sputum culture from 08/04 and 08/05/2017 growing E. coli and Pseudomonas pansensitive Continue with abx per ID recommendations 07/24, 07/27 Wound cx :MRSA 07/24 BC :NGTD 07/23: urine cx: No growth 07/22 BC: NGTD 08/04 UC: GNR Path report: Abdominal soft tissue excision: Skin and subcutaneous adipose tissue with acute cellulitis and multifocal abscess formation 07/30 Wound vac exchange 07/27 s/p excisional debridement with vac change of torso and abdomen 07/24 s/p wide excisional debridement of soft tissue infection with VAC placement for necrotizing soft tissue infection of abdomen, right hip area right torso area measuring approximately 32 x 18 inches x 2 inches deep. Surgery -Dr. Dumont. s/p debridement and wound VAC change 08/10/[address] Dumont. plan for debridement tomorrow 08/14. Heme: Monitor CBC, transfuse PRBC as needed for goal hgb > 7. Endocrine: Levothyroxine 112 mcg/day on hold. TSH:0.08 on 07/24 Glucose monitoring per ICU protocol. -- Continue SSI medium scale for glycemic control MSK: Dry gangrene setting in of toes on right- Likely pressors induced ischemia of toes. Seen by vascular surg- no additional vascular work up needed given palpable pulses, Prophylaxis: GI Prophylaxis Famotidine DVT Prophylaxis SCDs. Chemical DVT prophylaxis when cleared by Dr. Dumont-susanne due to anemia requiring transfusion Lines: Central line placed on 07/22 DCd 08/05/17. Peripheral IVs 2, New right subclavian central line placed 08/06/17-heading to L subclavian. Place new central line if persistent pressor requirement d/c scales. OVERALL IMPRESSION: very deconditioned. weak. chronic respiratory failure and likely critical illness myopathy. needs long-term acute care facility for weaning. nearing the end of her ICU stay. to OR tomorrow for debridement. Waqas Perdomo MD August 13, 2017 20:07
[2017-08-14] VITALS (32 sets, daily range): BP systolic 97–158; BP diastolic 54–99; PULSE 65–80; RESP 22; TEMP 97.5–98.8; O2SAT 100
[2017-08-14] MEDS: PIPERACIL-TAZO 4.5 GM PREMIX 100 ML IV SCH ×3 (01:00→11:55)
[2017-08-14] MEDS: INSULIN NovoLIN REGULAR SUPPLEMENTAL SCALE SQ SCH ×5 (04:00→16:00)
[2017-08-14] MEDS: FREE WATER G-TUBE SCH ×3 (06:00→22:00)
[2017-08-14] MEDS: DILTIAZEM HCL 60 MG TAB PO SCH ×4 (06:00→17:49)
--- NOTE | 2017-08-14 08:31 | HHI.CCPN ---
Subjective Remarks/Hospital Course This is a 62-year-old female with a history of developmental delay and recurrent urinary tract infections who presents with new onset right-sided abdominal and flank pain. Per the [facility] service admission note this is been going on for approximately 4 weeks. Patient has a history of developmental delay and is difficult to get a complete history from her, no analysis with her on my evaluation. On my evaluation she endorses flank pain radiating around to her chest. She endorses subjective chills. Denies recent fevers to me. Also endorses nausea, vomiting. In the emergency department she was found to have significant erythema, rubor, dolor, and edema from approximately the fifth intercostal space down to the eighth or ninth intercostal space wrapping around from the midline in the back all the way around to just medial to the breast. CT scan of the abdomen and pelvis confirms significant subcutaneous edema, but this area of edema appears to be contained by intact fascial planes, particularly in the midline of the back. Laboratory evidence is significant for a white blood cell count of 27k, creatinine is 3.58, potassium 5.4, bicarb of 17.9, anion gap elevated at 15, BUN of 64, an initial lactate of 5.1. In the emergency department she received 3 L of crystalloid IV fluids. Despite this she is hypotensive with a mean arterial pressure of 51. Critical care medicine is consulted to evaluate manage her presumed septic shock secondary to severe cellulitis of the trunk. I have given her an additional liter of crystalloid and then placed central venous access, see separate procedure note for details. In addition her lactate is starting to clear and is now 2.9 with an more currently pending, however it is not clearing fast enough and she remains oliguric. I placed a Scales for accurate hourly I's and O's. The remainder of the review systems for the patient is negative except documented in the HPI, although this is severely limited by her baseline developmental delay. Subjective 07/23: Patient remains on vasopressors, noted metabolic acidosis, bicarbonate level of 15. Sodium bicarbonate infusion initiated. 07/24 Patient was intubated early this morning now on Vasopressin and Neosyn 300 mics in addition patient is on Amio and Bicarb drips. WBC increased 31. CT abd/pelvis showed right sided cellulites and developing myositis. 07/25 Patient went to OR yesterday s/p wide excisional debridement of soft tissue infection with VAC placement for necrotizing soft tissue infection of abdomen, right hip area right torso area measuring approximately 32 x 18 inches x 2 inches deep. She remains on Vasopressin 0.04 and Neosyn down to 120 mics. On Amio drip. 07/26 No events overnight. Off all pressors, WBC is trending down. On Amio drip. 07/27 Patient remains intubated for return to OR today and wound vac exchange. 07/28 Patient s/p excisional debridement with vac change yesterday intubated and sedated with Fentanyl infusion. 07/29 Patient remains intubated and sedated with Fentanyl and Versed drips. Afebrile. 07/30 No events overnight. Patient remains sedated with Fentanyl drip and intubated. For OR today for further debridement and wound vac exchange. Afebrile. 07/31 Patient went to OR yesterday for vac exchange, Afebrile, WBC is trending down, Intubated and now sedated with Fentanyl and Versed 2mg/hr 08/01: Remains sedated, orally intubated on mechanical ventilation. Scheduled for OR today for vac exchange. 08/02: Remains intubated scheduled for OR again today. Antibiotics per ID. Slight increase in WBC count is 17.2 08/03: s/p Excisional debridement with VAC change yesterday by Dr. Dumont. Tolerating CPAP but not waking up or following commands. Dr. Dumont plans for further wound debridement and VAC change either tomorrow or Monday. Anticipating OR will leave patient intubated. WBC 19.9 today, will discuss with ID 08/04: Remains intubated, intermittently agitated on the vent. Or planned for tomorrow by Dr. Dumont. WBC count is slightly improved today 16.7 08/05: Patient is more critical today with worsening sepsis. T-max 102, WBC count up to 22.6. Hypotensive blood pressure 78/51. I have ordered 1 L normal saline bolus. Pancultured overnight. Zosyn started by Dr. Mcdonald. I will start micafungin also. Will inform ID. Dr. Dumont planning for OR today 08/06: Evaluated by night brass sorter for persistent worsening hypotension called to bedside to evaluate patient with worsening hypotension. Given 500 cc 5 % albumin 1 without improvement in hypotension. A right subclavian central line was placed and norepinephrine infusion was started for persistent septic shock. Currently map remains above 65, on Levophed at 4 mcg/min. WBC 16.1 slightly improved from yesterday. Hemoglobin has dropped to 7.2 approximately 2 g drop. Transfuse 1 unit of PRBC stat. T-max 100.7, urine culture growing GNR 08/07: Remains sedated, orally intubated on mechanical ventilation. Wound VAC in place. On Levophed 2 mics per minute for hypotension. 08/08: Sedated, orally intubated on mechanical ventilation. Wound VAC remains in place. Tolerating tube feeds. Discussed with Dr. Dumont who is planning to take patient to OR tomorrow for wound VAC change as well as tracheostomy. 08/09: OR today for wound VAC change and tracheostomy. Remains on Levophed at 1 mcg/min. If continued Levophed requirement, right subclavian central line heading towards the left subclavian need to be replaced 08/10: Patient went to OR today for wound vac change and tracheostomy. Had further wound debridement. Profoundly hypothermic. Temperature 92. Warming blanket applied. Send CBC. Discussed with ID. 08/11: Late entry note. Pt seen at 0830. Afebrile. No acute events overnight. Patient currently normothermic, WBC count downtrending. Palpable pulses B/L dorsalis pedis and post tibialis. 08/12 : No acute events. Possible plan for wound VAC replacement tomorrow. Overnight the wound VAC was dislodged Dr. Floyd follow in for wound VAC adjustment. Patient off sedation awake alert mouthing words appropriately. 08/13: doing well. conversant. remains on vent: when PSV support weaned, becomes tachypneic. going to OR tomorrow for washout. afebrile. denies complaints. 08/14: no complaints. scales removed yesterday but has not voided. will start cardura to help with bladder control. to OR today for washout. Objective Vital Signs Date Time Temp Pulse Resp B/P (MAP) Pulse Ox O2 Delivery O2 Flow Rate FiO2 08/14/17 08:14 100 35 08/14/17 06:00 80 08/14/17 04:30 131/66 (87) 08/14/17 04:00 97.5 08/13/17 16:00 15 08/10/17 18:42 Room Air Intake and Output 08/14/17 08/14/17 08/14/17 07:59 15:59 23:59 Intake Total 1100 ml Output Total 750 ml Balance 350 ml Result Diagram: 08/13/17 0447 08/13/17 0447 Imaging Last Impressions Chest X-Ray 07/30/17 0000 Signed Impressions: Service Date/Time: Sunday, July 30, 2017 08:14 - CONCLUSION: Underinflation with atelectasis at the lung bases. Otherwise, no acute finding is seen given the technique. Derrick García MD Brain MRI 07/28/17 0000 Signed Impressions: Service Date/Time: Friday, July 28, 2017 14:38 - CONCLUSION: 1. Unremarkable MRI examination the brain. 2. No acute abnormality or interval change. Bob Daly MD Chest CT 07/24/17 0000 Signed Impressions: Service Date/Time: Monday, July 24, 2017 05:36 - CONCLUSION: 1. Stranding in the subcutaneous tissues about the right flank with fluid adjacent to the latissimus dorsi. Stranding extends up into the right breast. Findings could represent developing cellulitis. 2. In addition, there is now a small right-sided effusion with bilateral dependent atelectatic changes. Jerome Brady MD Abdomen/Pelvis CT 07/24/17 0000 Signed Impressions: Service Date/Time: Monday, July 24, 2017 05:36 - CONCLUSION: 1. CT findings concerning for a right sided cellulitis and developing myositis. There is some asymmetric prominence of the latissimus dorsi muscle on the right. Unorganized fluid in the deep subcutaneous tissues adjacent to the muscle belly. No drainable fluid collection, however. 2. Developing dependent areas of consolidation, right greater than left with an associated small right-sided effusion. Jerome Brady MD Head CT 07/22/17 1253 Signed Impressions: Service Date/Time: Saturday, July 22, 2017 13:26 - CONCLUSION: No acute disease. Derrick Henry MD Objective Remarks GENERAL: Elderly female, lying in bed, trached. HEENT: Normocephalic. Atraumatic. Pupils equal, round, reactive, conjugate. NECK: Trachea is midline. There is no JVD. Tracheostomy in place with minimal oozing CHEST: Equal chest rise. PSV 10/5/30%. CARDIOVASCULAR: RRR, nl ABDOMEN: Soft, nontender, nondistended, wound Vac in place on the right flank covering extensive areas of debridement. MUSCULOSKELETAL: Gangrene of 2-4 toes on right. NEUROLOGICAL: awake, alert, follows commands. no focal deficits. Date of Insertion: Jul 22, 2017 A/P Assessment and Plan Active problems: Chronic hypoxic and hypercarbic respiratory failure Septic shock, resolved. Hypothermia- resolved Right flank necrotizing fasciitis Pneumonia (HCAP) Acute metabolic encephalopathy- resolved Anemia requiring transfusion Acute kidney injury- resolved Elevated CK- resolved Thrombocytopenia - resolved Hypothyroidism Acute protein calorie malnutrition- moderate chronic pain secondary to post-surgical debridement and wound Urinary Retention Plan: Neurologic: Neuro checks per ICU protocol. d/c fent, versed tramadol, oxycodone, morphine prn pain 07/22 CT brain: No acute disease. MRI brain 07/28 Unremarkable Respiratory: Continue with vent support keep sats >92% PSV 10/5/30%. daily weaning of PSV. may be close to t-piece trials. status post tracheostomy by Dr. Dumont in the OR 08/10/17. Bronchodilators, ICU vent bundle. Cardiovascular: Monitor HR and BP keep MAP>65mmHg. Echo showed EF 50-55% diltiazem 60mg po q6h Renal: Monitor renal function, I/O's, Avoid nephrotoxins Renal is following- . Free water to 200ml Q8, monitor sodium level. Diuril 250mg po. start Cardura for urinary retention FEN/GI: On Pepcid 10mg BID for GI prophylaxis Tube feeds- Glucerna 1.5 with goal rate 45ml/hr ID: Urine culture and sputum culture from 08/04 and 08/05/2017 growing E. coli and Pseudomonas pansensitive Continue with abx per ID recommendations 07/24, 07/27 Wound cx :MRSA 07/24 BC :NGTD 07/23: urine cx: No growth 07/22 BC: NGTD 08/04 UC: GNR Path report: Abdominal soft tissue excision: Skin and subcutaneous adipose tissue with acute cellulitis and multifocal abscess formation 07/30 Wound vac exchange 07/27 s/p excisional debridement with vac change of torso and abdomen 07/24 s/p wide excisional debridement of soft tissue infection with VAC placement for necrotizing soft tissue infection of abdomen, right hip area right torso area measuring approximately 32 x 18 inches x 2 inches deep. Surgery -Dr. Dumont. s/p debridement and wound VAC change 08/10/[address] Dumont. plan for debridement tomorrow 08/14. Heme: Monitor CBC, transfuse PRBC as needed for goal hgb > 7. Endocrine: Levothyroxine 112 mcg/day on hold. TSH:0.08 on 07/24 Glucose monitoring per ICU protocol. -- Continue SSI medium scale for glycemic control MSK: Dry gangrene setting in of toes on right- Likely pressors induced ischemia of toes. Seen by vascular surg- no additional vascular work up needed given palpable pulses, Prophylaxis: GI Prophylaxis Famotidine DVT Prophylaxis SCDs. Chemical DVT prophylaxis when cleared by Dr. Dumont-hold due to anemia requiring transfusion Lines: Central line placed on 07/22 DCd 08/05/17. Peripheral IVs 2, may require scales catheter for urinary retention. OVERALL IMPRESSION: very deconditioned. weak. chronic respiratory failure and likely critical illness myopathy. needs long-term acute care facility for weaning. nearing the end of her ICU stay. to OR today for debridement. Waqas Perdomo MD August 14, 2017 08:31
[2017-08-14] MEDS ORDERED: DOXAZOSIN MESYLATE 4 MG TAB PO SCH (09:00)
[2017-08-14] MEDS: DOCUSATE SODIUM 50 MG/SENNA 8.6 MG TAB PO SCH ×2 (09:00→20:37)
[2017-08-14] MEDS: CHLOROTHIAZIDE 250 MG TAB PO SCH (09:03)
[2017-08-14] MEDS: POTASSIUM PHOSPHATE MONOBASIC 500 MG TAB PO PRN ×2 (09:04→17:49)
[2017-08-14] MEDS: FAMOTIDINE 20 MG TAB PO SCH ×2 (09:04→20:36)
[2017-08-14] MEDS: CALCIUM/VITAMIN D 250 MG/125 U TAB PO SCH (09:04)
[2017-08-14] MEDS: SODIUM CHLORIDE 0.9% FLUSH 10 ML FLUSH IV FLUSH SCH ×2 (09:05→20:36)
[2017-08-14] MEDS: MULTIVITAMIN-OPHTHALMIC 1 TAB PO SCH (09:05)
[2017-08-14] MEDS: CHLORHEXIDINE 0.12% (ORAL KIT) 15 ML CUP MT SCH ×2 (09:05→20:37)
[2017-08-14] MEDS: oxyCODONE HCL ORAL CONC 5 MG/0.25 ML SYRINGE PO PRN ×2 (09:11→17:52)
--- NOTE | 2017-08-14 10:27 | HHI.PR ---
Immediate Post Op Note Procedure Date: August 14, 2017 Pre Op Diagnosis: necrotizing soft tissue infection of abdomen, right flank, back Post Op Diagnosis: same Surgeon: Tip Dumont MD Veneer Sawyer(s): none Procedure: vac change Findings: good granulation Complications: none Specimen(s) removed: none Estimated blood loss: 10cc Anesthesia: General Drains: Hemovac Patient to: PACU Patient Condition: Good Tip Dumont MD August 14, 2017 10:27
--- NOTE | 2017-08-14 11:10 | HHI.HCPN ---
Reason for visit a. To assist with evaluation and management of symptoms including: pain, dyspnea. b. To assist medical decision maker(s) with: better understanding of current medical conditions; weighing benefits/burdens of medical treatment options; making medical treatment decisions. . Subjective/Interval History No significant change. No obvious pain. WBC is trending down. CR has normalized. Patient Afebrile. Pt open eyes and can nod to some questions. She denies pain. She did nod yes for Mr. Nagy, and to notify him of medical issues and changes. She is due back to the OR for more washout. . Family/friend interactions Called phone number for Mr. Nagy, and voicemail is not set up. Advance Directives Durable Power of Truck Repair Supervisor: Copy in medical record Advance Directive Specifics Date completed: An incomplete (only pages 2 and 3 of a 3 page document were avialable) and it did not specify health care decision making. . Health Care Surrogate(s): Mr. Felipe Nagy was given POA but the POA document did not specify health care decision making. . Documented care wishes: There is no written documentation of health care goals/preferences. . Objective Vital Signs Date Time Temp Pulse Resp B/P (MAP) Pulse Ox O2 Delivery O2 Flow Rate FiO2 08/14/17 08:14 100 35 08/14/17 08:00 35 08/14/17 06:00 80 08/14/17 04:30 78 131/66 (87) 100 08/14/17 04:15 73 112/59 (76) 100 08/14/17 04:12 100 35 08/14/17 04:00 97.5 73 134/65 (88) 100 08/14/17 04:00 35 08/14/17 04:00 73 08/14/17 03:45 67 108/60 (76) 100 08/14/17 03:30 68 108/61 (77) 100 08/14/17 03:15 69 103/60 (74) 100 08/14/17 03:00 69 101/55 (70) 100 08/14/17 02:45 72 116/65 (82) 100 08/14/17 02:30 71 106/62 (77) 100 08/14/17 02:15 74 109/61 (77) 100 08/14/17 02:01 78 132/70 (90) 100 5/21/18 02:00 78 100 5/21/18 02:00 78 5/21/18 01:54 80 158/99 (118) 100 5/21/18 01:30 72 125/71 (89) 100 5/21/18 01:00 68 113/66 (82) 100 5/21/18 00:45 66 114/64 (81) 100 5/21/18 00:37 100 35 5/21/18 00:30 66 105/61 (76) 100 5/21/18 00:16 71 118/69 (85) 100 5/21/18 00:15 71 100 5/21/18 00:00 68 5/21/18 00:00 98.6 68 110/59 (76) 100 5/18 00:00 35 5/20/18 23:30 64 114/63 (80) 100 5/20/18 23:15 66 112/64 (80) 100 5/20/18 23:00 65 111/62 (78) 100 5/20/18 22:45 69 125/73 (90) 100 5/20/18 22:30 72 126/71 (89) 100 5/20/18 22:15 70 125/71 (89) 100 5/20/18 22:00 66 5/20/18 22:00 66 119/68 (85) 100 5/20/18 21:45 62 100/62 (75) 100 5/20/18 21:30 61 96/57 (70) 100 5/20/18 21:16 61 93/54 (67) 100 5/20/18 21:00 64 101/56 (71) 100 5/20/18 20:45 100 35 5/20/18 20:45 62 100/56 (71) 100 5/20/18 20:30 63 101/59 (73) 100 5/20/18 20:15 64 112/63 (79) 100 5/20/18 20:00 98.8 78 153/88 (109) 100 5/20/18 20:00 35 5/20/18 20:00 79 5/20/18 19:45 66 118/71 (87) 100 5/20/18 19:30 64 121/71 (88) 100 5/20/18 19:15 66 124/63 (83) 100 5/20/18 19:01 67 119/66 (83) 100 08/13/17 19:00 69 100 08/13/17 18:00 64 114/66 (82) 100 08/13/17 18:00 75 08/13/17 16:22 100 35 08/13/17 16:00 67 15 122/66 (84) 100 08/13/17 16:00 75 08/13/17 16:00 35 08/13/17 15:00 64 99/56 (70) 100 08/13/17 14:00 64 15 110/57 (74) 100 08/13/17 14:00 75 08/13/17 13:00 75 137/79 (98) 100 08/13/17 12:51 100 35 08/13/17 12:00 75 08/13/17 12:00 63 15 99/58 (72) 100 Intake & Output 08/14/17 08/14/17 07:00 19:00 Intake Total 1350 ml Output Total 1950 ml Balance -600 ml IV Total 350 ml Tube Feeding 800 ml Other 200 ml Output Urine Total 1300 ml Drainage Total 650 ml # Bowel Movements 4 Physical Exam CONSTITUTIONAL/GENERAL: This is a chronically ill-appearing patient, sedated, intubated, mechanically ventilated in the MICU. TUBES/LINES/DRAINS: Wound vac, left subclavian central line; Peripheral IV; scales. Tracheostomy tube in place. SKIN: Large right sided wound s/p debridement with wound vac from right thigh all the way up torso to below axillary area, and around the back nearly to the midline in the mid thoracic area. ENT: . Nose without bleeding or purulent drainage. E Dried blood on lips. CARDIOVASCULAR: Regular rate and rhythm without murmurs, gallops, or rubs. No JVD. RESPIRATORY/CHEST: Symmetric, unlabored respirations. Some scattered rhonchi are present bilateral. Breath sounds equal bilaterally. GASTROINTESTINAL: Abdomen soft, nondistended. No hepato-splenomegaly, or palpable masses. No guarding. Bowel sounds present. GENITOURINARY: Without palpable bladder distension. Scales catheter in place. MUSCULOSKELETAL: Extremities without clubbing, edema. Right foot toes are all ischemic with necrotic tips except for the great toe. NEUROLOGICAL: Intubated and sedated. Does not awaken to voice or exam. PSYCHIATRIC: Unable to evaluate due to clinical condition . . Diagnostic Tests Laboratory Laboratory Tests Test 08/11/17 20:51 08/12/17 04:20 08/13/17 04:47 Potassium Level 4.1 MEQ/L (3.5-5.1) 3.8 MEQ/L (3.5-5.1) 3.8 MEQ/L (3.5-5.1) White Blood Count 19.4 TH/MM3 (4.0-11.0) 15.8 TH/MM3 (4.0-11.0) Red Blood Count 3.44 MIL/MM3 (4.00-5.30) 3.36 MIL/MM3 (4.00-5.30) Hemoglobin 9.2 GM/DL (11.6-15.3) 8.9 GM/DL (11.6-15.3) Hematocrit 28.2 % (35.0-46.0) 27.5 % (35.0-46.0) Mean Corpuscular Volume 81.9 FL (80.0-100.0) 81.7 FL (80.0-100.0) Mean Corpuscular Hemoglobin 26.7 PG (27.0-34.0) 26.3 PG (27.0-34.0) Mean Corpuscular Hemoglobin Concent 32.6 % (32.0-36.0) 32.2 % (32.0-36.0) Red Cell Distribution Width 16.2 % (11.6-17.2) 15.9 % (11.6-17.2) Platelet Count 409 TH/MM3 (150-450) 372 TH/MM3 (150-450) Mean Platelet Volume 5.7 FL (7.0-11.0) 5.9 FL (7.0-11.0) Neutrophils (%) (Auto) 77.3 % (16.0-70.0) 72.4 % (16.0-70.0) Lymphocytes (%) (Auto) 13.2 % (9.0-44.0) 17.5 % (9.0-44.0) Monocytes (%) (Auto) 6.5 % (0.0-8.0) 6.1 % (0.0-8.0) Eosinophils (%) (Auto) 1.9 % (0.0-4.0) 2.9 % (0.0-4.0) Basophils (%) (Auto) 1.1 % (0.0-2.0) 1.1 % (0.0-2.0) Neutrophils # (Auto) 15.0 TH/MM3 (1.8-7.7) 11.4 TH/MM3 (1.8-7.7) Lymphocytes # (Auto) 2.6 TH/MM3 (1.0-4.8) 2.8 TH/MM3 (1.0-4.8) Monocytes # (Auto) 1.3 TH/MM3 (0-0.9) 1.0 TH/MM3 (0-0.9) Eosinophils # (Auto) 0.4 TH/MM3 (0-0.4) 0.5 TH/MM3 (0-0.4) Basophils # (Auto) 0.2 TH/MM3 (0-0.2) 0.2 TH/MM3 (0-0.2) CBC Comment AUTO DIFF AUTO DIFF Differential Total Cells Counted 100 100 Neutrophils % (Manual) 67 % (16-70) 72 % (16-70) Band Neutrophils % 2 % (0-6) 4 % (0-6) Lymphocytes % 15 % (9-44) 14 % (9-44) Monocytes % 7 % (0-8) 3 % (0-8) Eosinophils % 5 % (0-4) 2 % (0-4) Basophils % 1 % (0-2) 1 % (0-2) Neutrophils # (Manual) 14.0 TH/MM3 (1.8-7.7) 12.6 TH/MM3 (1.8-7.7) Metamyelocytes 2 % (0-1) 2 % (0-1) Promyelocytes 1 % (0-0) 1 % (0-0) Differential Comment FINAL DIFF MANUAL FINAL DIFF MANUAL Platelet Estimate NORMAL (NORMAL) NORMAL (NORMAL) Platelet Morphology Comment NORMAL (NORMAL) NORMAL (NORMAL) Red Cell Morphology Comment NORMAL (NORMAL) NORMAL (NORMAL) Blood Urea Nitrogen 13 MG/DL (7-18) 13 MG/DL (7-18) Creatinine 1.01 MG/DL (0.50-1.00) 0.88 MG/DL (0.50-1.00) Random Glucose 118 MG/DL (74-106) 88 MG/DL (74-106) Calcium Level 8.7 MG/DL (8.5-10.1) 8.6 MG/DL (8.5-10.1) Sodium Level 134 MEQ/L (136-145) 135 MEQ/L (136-145) Chloride Level 102 MEQ/L (98-107) 103 MEQ/L (98-107) Carbon Dioxide Level 21.9 MEQ/L (21.0-32.0) 21.1 MEQ/L (21.0-32.0) Anion Gap 10 MEQ/L (5-15) 11 MEQ/L (5-15) Estimat Glomerular Filtration Rate 56 ML/MIN (>89) 65 ML/MIN (>89) Myelocytes 1 % (0-0) Phosphorus Level 1.8 MG/DL (2.5-4.9) Magnesium Level 1.8 MG/DL (1.5-2.5) Result Diagram: 08/13/17 0447 08/13/17446 Procedures INTUBATION Debridement/wound VAC Second debridement/wound VAC 08/05/17 Third debridement/wound VAC 08/10/17 Tracheostomy 08/10/17 . Assessment and Plan Disease Oriented Problem List: (1) Severe sepsis (2) Abdominal wall cellulitis Comment: required debridement of necrotizing tissue. (3) Acute kidney injury Comment: Improved (4) DM (diabetes mellitus) Symptom Scale: (1) Dyspnea 0-10 Scale: Unable to quantify (2) Pain 0-10 Scale: Unable to quantify Comment: No known pre-hospitalization pain syndromes. Current sources of pain probably include large wound; prolonged bedbound status; scales cathter; vascular access lines; restraints; ET tube. . Pertinent Non-Medical Issues Psychosocial:developmental delay, Spiritual: Has not belong to any particular gemma group. Per her partner, she has been recently interested in alevism oriented audio cassettes Legal: Mr. Nagy brought in part of a POA document signed by the patient; he is the current healthcare proxy since no family could be found Ethical issues impacting care: Patient is incapacitated. . Important Contacts Felipe Nagy reported POA. [phone] . Prognosis 62 year old female with severe sepsis, due to large right sided necrotizing wound + for MRSA. Remains critically ill and has had recurrent hypotension/ sepsis, and she is progressively more debilitated and malnourished. Prognosis is guarded. Her large, complicated wound may require weeks more of hospitalization . Pt's developmental delays may hinder pt's ability to convalesce. . . Code Status: Full Code Plan == Code Status : Full Code == Decision Making: Patient is incapacitated to make her own health care decisions, although she currently is more alert. We will continue to acess. Mr. Nagy had self identified as her "guardian" and "power of trust and estates attorney." There is only POA paperwork; Mr. Nagy has been a "close personal friend" regularly attending all of her outpatient physician appointments with the patient. Until such time as other family members present themselves or we are given contact information for other surviving family members, Mr. Nagy will remain the legal proxy for health care decisions. ==Goals of medical treatment: Patient never completed an advance directive nor had conversations regarding what she would want or not want if she were to become critically ill like this. Mr. Nagy feels the patient would certainly want to continue fighting at this time. Goals at this time continue to be aggressive. == Symptoms (see symptoms above) * dyspnea: managed with mechanical ventilation/ trach * pain- Multiple sources of discomfort including -- extensive right sided wound; repeated debridements and wound vac changes; prolonged bedbound status ; etc. fentanyl available . * Intermittent Agitation - remains on Versed infusion == Plan * There's been no success in locating any of patient's surviving relatives. * In the meantime, Mr. Nagy will continue to function as the health care proxy as he has demonstrated concern and interest over the years and has appeared to be advocating for her appropriately.... and we have access to no alternatives. == Palliative car will continue to follow to assist with symptom management and to further clarify goals of medical treatment as the clinical course evolves. . Attestation To help prompt me to consider important information that might be impacting today's encounter and assessment, information from prior notes written by myself or my colleagues may have been "brought forward" into today's note. My signature on this note, however, is an attestation that I personally performed the exam, history, and/or decision-making noted today, and, unless otherwise indicated, the interactions with patient, family, and staff as well as the review of records all occurred today. I also attest that the listed assessment and stated plan reflect my best clinical judgment today based on the combination of historical information, prior notes, and today's exam/ interactions. When time spent is documented, it refers only to time spent today by the signer, or if indicated, combined time spent today by collaborating physician/nurse practitioner. Keshawn Baez MD August 14, 2017 11:10
[2017-08-14] MEDS: DOXAZOSIN MESYLATE 2 MG TAB PO SCH (11:55)
[2017-08-14] MEDS ORDERED: ONDANSETRON HCL 4 MG/2 ML VIAL IV PUSH ONE (12:00)
[2017-08-14] MEDS ORDERED: ePHEDrine/NS 25 MG/5 ML SYRINGE IV ONE (12:00)
[2017-08-14] MEDS ORDERED: PHENYLEPH/NS 1000 MCG/10 ML SYR IV ONE (12:00)
--- NOTE | 2017-08-14 13:51 | HHI.PR ---
Addendum to Inpatient Note Addendum Reason: Additional Documentation Additional Information Patient in procedure earlier today in OR. dw : will DC Zosyn IV Continue Dapto IV Check CK level. Follow clinically. to cover for me 08/15/2017 to 08/17/2017. Ellen De La Torre MD August 14, 2017 13:51
[2017-08-14] MEDS: SODIUM CHLORIDE 0.9% IV SCH (17:50)
[2017-08-14] MEDS: DAPTOMYCIN IV SCH (17:50)
[2017-08-15] VITALS (32 sets, daily range): BP systolic 95–151; BP diastolic 52–81; PULSE 58–87; RESP 12–20; TEMP 97.8–98.7; O2SAT 100
[2017-08-15] MEDS: DILTIAZEM HCL 60 MG TAB PO SCH ×4 (00:04→17:28)
[2017-08-15 01:20] LABS: BILIRUBIN, URINE NEG (NEG); BLOOD, URINE NEG (NEG); GLUCOSE,URINE NEG (NEG); KETONE, URINE NEG (NEG); NITRITE,URINE NEG (NEG); PH, URINE 6.5 (5.0-8.5); URINE COLOR YELLOW (YELLW/STRAW); URINE LEUKOCYTE ESTERASE NEG (NEG)
[2017-08-15 01:26] LABS: BACTERIA, URINE RARE /hpf; HYALINE CAST, URINE 26 /lpf (RARE); MUCUS URINE FEW /lpf (OCC); RENAL EPITHELIAL CELLS <1 /hpf; SQUAMOUS EPITHELIAL CELL URINE <1 /hpf (0-5); TRANSITIONAL EPI CELLS, URINE <1 /hpf
--- NOTE | 2017-08-15 02:50 | RADRPT ---
EXAM DATE/TIME: 08/15/2017 02:15 [facility] COMPARISON: CHEST SINGLE AP, August 11, 2017, 15:06. INDICATIONS : Short of breath. MEDICAL HISTORY : Diabetes mellitus type 2. Hypertension. SURGICAL HISTORY : Hysterectomy. ENCOUNTER: Subsequent ACUITY: 1 week PAIN SCORE: 0/10 LOCATION: Bilateral chest FINDINGS: A single view of the chest demonstrates the lungs to be symmetrically aerated without evidence of mas s, infiltrate or effusion. The cardiomediastinal contours are unremarkable. Osseous structures are intact. The tracheostomy tube and nasogastric tube remain in place. CONCLUSION: Stable appearance with no acute cardiopulmonary disease. Kvng Nuñez MD on August 15, 2017 at 2:48 Board Certified Radiologist. This report was verified electronically.
[2017-08-15] MEDS: MORPHINE SULFATE 4 MG/ML INJ IV PUSH PRN ×2 (04:53→10:06)
[2017-08-15] MEDS: FREE WATER G-TUBE SCH ×3 (05:28→21:00)
[2017-08-15] MEDS: CHLORHEXIDINE 0.12% (ORAL KIT) 15 ML CUP MT SCH ×2 (08:00→20:00)
[2017-08-15] MEDS: DOCUSATE SODIUM 50 MG/SENNA 8.6 MG TAB PO SCH ×2 (09:00→20:59)
[2017-08-15] MEDS: SODIUM CHLORIDE 0.9% FLUSH 10 ML FLUSH IV FLUSH SCH ×2 (09:00→20:59)
--- NOTE | 2017-08-15 09:38 | HHI.IDPN ---
Subjective Subjective Remarks ID COVERAGE Most of the history was obtained by review of medical records. Patient shortly being wheeled out to the operating room for surgical exploration of the site of necrotizing fasciitis Septic shock. Ms. Eldridge is a 62-year-old female who reportedly has developmental delays per chart review. Patient presented to the emergency department via EMS for evaluation of right-sided abdominal, flank and back erythema swelling and pain. Patient's care provider and power of divorce attorney listed on the chart is Mr. Felipe Nagy who can be contacted at [phone]. Patient had earlier reported to others that she was feeling unwell for the past 4 weeks. Patient reported increase in her migraine symptoms. Patient also reported continuous, nonradiating sharps times burning pain over the right upper quadrant that is expanded to include her right flank and back. She denies any trauma to these areas. Patient reported to others prior to being intubated that she had nausea and vomiting associated with decreased appetite. Patient also had reported to others that she was dizzy and lightheaded. Per review of records it appears that patient has had multiple falls as well as has had urinary incontinence at baseline with decreased urine output over the last few days. Patient also reported subjective symptoms such as burning with urination. Per EMS, patient was found to be hypotensive. Systolic pressure was recorded in the 70s. She received fluid in transit with minimal improvement. In the emergency department she was found to have significant erythema,pain and edema from approximately the fifth intercostal space down to the eighth or ninth intercostal space wrapping around from the midline in the back all the way around to just medial to the breast. CT scan of the abdomen and pelvis confirms significant subcutaneous edema, but this area of edema appears to be contained by intact fascial planes, particularly in the midline of the back. Laboratory evidence is significant for a white blood cell count of 27k, creatinine is 3.58, potassium 5.4, bicarb of 17.9, anion gap elevated at 15, BUN of 64, an initial lactate of 5.1. In the emergency department she received 3 L of crystalloid IV fluids. Critical care medicine is consulted to evaluate manage her presumed septic shock secondary to severe cellulitis of the trunk. Overnight critical care medicine was consulted for worsening sepsis and septic shock. Patient had to be intubated and upon evaluation was found to have evidence suggestive of necrotizing fasciitis involving similar areas as reported on the emergency room but had progressed beyond the line of demarcation. Patient was noted to have significant blisters and blackening of the areas. Critical care medicine change the regimen to Zosyn IV, vancomycin IV and added clindamycin IV and placed a surgical consult. Patient was evaluated by Dr. Thor Dumont of surgery and patient is being wheeled to the operating room shortly. At the time of my evaluation patient is in the ICU currently on high-dose Levophed as well as vasopressin with slight decrease in Levophed requirement after addition of clindamycin IV. Urine output is low. No diarrhea. No diffuse rash or skin changes other than as described. Notes reviewed Discussed with RN Afebrile Not on pressors. Had wound VAC changed yesterday Has a lot of secretions Remains on the vent Last CBC lower WBC Last chest x-ray normal Antibiotics Dapto IV Current Medications Medications (Trade) Dose Ordered Sig/Beatrice Route Start Time Stop Time Status Last Admin (Ocuvite) 1 tab DAILY PO 07/23/17 09:00 08/14/17 09:05 Patient Own Medication PT OWN MED: B[place]... DAILY PO 07/23/17 09:00 Future Hold 08/06/17 09:00 (Oscal-D 250-125) 500 mg DAILY PO 07/23/17 09:00 08/14/17 09:04 (NS Flush) 2 ml UNSCH PRN IV FLUSH 07/22/17 16:45 08/01/17 08:02 (NS Flush) 2 ml BID IV FLUSH 07/22/17 21:00 08/14/17 20:36 (Zofran Inj) 4 mg Q6H PRN IVP 07/22/17 16:45 07/23/17 22:11 (Tylenol) 650 mg Q6H PRN PO 07/22/17 16:45 08/05/17 23:19 (Ultram) 100 mg Q4H PRN PO 07/22/17 16:45 08/09/17 20:45 (Narcan Inj) 0.4 mg UNSCH PRN IV PUSH 07/22/17 16:45 (Natalie-Colace) 1 tab BID PO 07/22/17 21:00 08/08/17 10:15 (Senokot) 17.2 mg Q12H PRN PO 07/22/17 16:45 (Dulcolax Supp) 10 mg DAILY PRN RECTAL 07/22/17 16:45 (Lactulose Liq) 30 ml DAILY PRN PO 07/22/17 16:45 ([facility] [place] [facility]) Patient in critical care unit? Ass... Q361D .XX 07/22/17 18:45 (Milk Of Magnesia Liq) 30 ml Q12H PRN PO 07/23/17 15:30 (Peridex 0.12% Liq) 15 ml BID@08,20 MT 07/24/17 08:00 08/14/17 20:37 (D50w (Vial) Inj) 50 ml UNSCH PRN IV PUSH 07/25/17 08:45 08/07/17 12:24 (Glucagon Inj) 1 mg UNSCH PRN OTHER 07/25/17 08:45 Potassium Chloride 100 ml @ 50 mls/hr Q2H PRN IV 07/28/17 09:00 07/28/17 12:57 Potassium Chloride 100 ml @ 50 mls/hr Q2H PRN IV 07/28/17 09:00 07/29/17 02:04 (K-Lyte Cl Eff) 50 meq UNSCH PRN PO 07/28/17 09:00 07/29/17 02:05 Potassium Chloride 100 ml @ 25 mls/hr UNSCH PRN IV 07/28/17 09:00 Potassium Chloride 100 ml @ 50 mls/hr Q2H PRN IV 07/28/17 09:00 08/11/17 11:50 Magnesium Sulfate 4 gm/Sodium Chloride 100 ml @ 50 mls/hr UNSCH PRN IV 07/28/17 09:00 (Mag-Ox) 800 mg UNSCH PRN PO 07/28/17 09:00 Magnesium Sulfate 2 gm/Sodium Chloride 100 ml @ 50 mls/hr UNSCH PRN IV 07/28/17 09:00 (K-Phos) 2,000 mg Q4H PRN PO 07/28/17 09:00 08/14/17 17:49 Sodium Phosphate 30 mmol/Sodium Chloride 250 ml @ 42 mls/hr UNSCH PRN IV 07/28/17 09:00 (K-Phos) 2,000 mg UNSCH PRN PO/TUBE 07/28/17 09:00 Potassium Phosphate 30 mmol/ Sodium Chloride 260 ml @ 42 mls/hr UNSCH PRN IV 07/28/17 09:00 08/02/17 17:00 (Cardizem) 60 mg Q6HR PO 07/29/17 14:15 08/15/17 05:27 (Apresoline Inj) 10 mg Q6H PRN IV PUSH 07/29/17 14:15 07/29/17 14:33 Daptomycin 690 mg/ Sodium Chloride 100 ml @ 200 mls/hr Q24H IV 07/29/17 18:00 08/14/17 17:50 (Cathflo Activase Inj) 2 mg Q2H PRN INTRACATH 08/04/17 22:00 (Chapstick) 1 applic UNSCH PRN TOPICAL 08/12/17 17:30 08/12/17 17:52 (Free Water) 200 ml Q8HR G-TUBE 08/13/17 22:00 08/14/17 14:00 (Morphine Inj) 4 mg Q2H PRN IV PUSH 08/13/17 20:00 08/15/17 04:53 (Roxicodone Intensol Liq) 10 mg Q3H PRN PO 08/13/17 20:00 08/14/17 17:52 (Diuril) 250 mg DAILY PO 08/14/17 09:00 08/14/17 09:03 (Cardura) 2 mg DAILY PO 08/14/17 09:30 08/14/17 11:55 (Pepcid) 20 mg BID PO 08/15/17 09:00 Lines Line sites with no e.o infection Past Medical History Anxiety Depression Developmental delays - mental handicap Headaches/migraines Hypothyroidism GERD Chest pain Hx of UTIs Renal insufficiency Bladder incontinence Chronic back pain Thyroid surgery EGD - 08/30/16 Cholecystectomy - 03/04/15 D&C Hysterectomy Colonoscopy - 07/30/16 and 08/11/15 Allergies: Coded Allergies: No Known Allergies (Verified Allergy, Unknown, 07/22/17) Objective . Vital Signs Date Time Temp Pulse Resp B/P (MAP) Pulse Ox O2 Delivery O2 Flow Rate FiO2 08/15/17 08:34 100 35 08/15/17 06:00 69 08/15/17 04:09 100 35 08/15/17 04:00 35 08/15/17 04:00 98.7 64 20 114/62 (79) 100 08/15/17 04:00 62 08/15/17 02:00 60 08/15/17 01:10 100 35 08/15/17 00:00 35 08/15/17 00:00 63 08/15/17 00:00 98.4 62 20 97/66 (76) 100 08/14/17 22:20 100 35 08/14/17 22:00 65 08/14/17 21:00 100 35 08/14/17 20:00 65 08/14/17 20:00 98.2 66 22 105/56 (72) 100 08/14/17 20:00 35 08/14/17 19:13 100 35 08/14/17 16:32 98.5 70 97/54 (68) 100 08/14/17 16:00 35 08/14/17 15:18 100 35 08/14/17 12:00 35 . Laboratory Tests Test 08/15/17 08:22 Microbiology Date/Time Source Procedure Growth Status 08/15/17 00:45 Urine Catheterized Urine Urine Culture Pending Received Imaging Last Impressions Chest X-Ray 08/15/17 0600 Signed Impressions: Service Date/Time: Tuesday, August 15, 2017 02:15 - CONCLUSION: Stable appearance with no acute cardiopulmonary disease. Kvng Nuñez MD Brain MRI 07/28/17 0000 Signed Impressions: Service Date/Time: Friday, July 28, 2017 14:38 - CONCLUSION: 1. Unremarkable MRI examination the brain. 2. No acute abnormality or interval change. Bob Daly MD Chest CT 07/24/17 0000 Signed Impressions: Service Date/Time: Monday, July 24, 2017 05:36 - CONCLUSION: 1. Stranding in the subcutaneous tissues about the right flank with fluid adjacent to the latissimus dorsi. Stranding extends up into the right breast. Findings could represent developing cellulitis. 2. In addition, there is now a small right-sided effusion with bilateral dependent atelectatic changes. Jerome Brady MD Abdomen/Pelvis CT 07/24/17 0000 Signed Impressions: Service Date/Time: Monday, July 24, 2017 05:36 - CONCLUSION: 1. CT findings concerning for a right sided cellulitis and developing myositis. There is some asymmetric prominence of the latissimus dorsi muscle on the right. Unorganized fluid in the deep subcutaneous tissues adjacent to the muscle belly. No drainable fluid collection, however. 2. Developing dependent areas of consolidation, right greater than left with an associated small right-sided effusion. Jerome Brady MD Head CT 07/22/17 1253 Signed Impressions: Service Date/Time: Saturday, July 22, 2017 13:26 - CONCLUSION: No acute disease. Derrick Henry MD Physical Exam GENERAL: Awake and alert, on the vent, NAD. SKIN: No generalized rash. Dry, cool extremities HEAD: Atraumatic. Normocephalic. No temporal or scalp tenderness. EYES: Pupils equal round and reactive. Extraocular motions intact. No scleral icterus. No injection or drainage. ENT: Intubated. Moist mucosa NECK: Trachea midline. Supple, nontender, no meningeal signs. CARDIOVASCULAR: Heart sounds audible. No murmur appreciated. RESPIRATORY: Clear to auscultation. Breath sounds equal bilaterally. No wheezes , rales, or rhonchi. GASTROINTESTINAL: Abdomen soft. Wound vac area noted. Extensive area covered with wound vac sponge, output serosanguineous. Has a candidal rash in the groin MUSCULOSKELETAL: Extremities without clubbing, cyanosis. Some pedal edema. Ischemic toes R foot 2-4 toes and tip of 5th toe, no change. Cool feet NEUROLOGICAL: Grossly nonfocal Psych calm and cooperative IV line sites with no e.o infection Assessment & Plan Remarks Septic shock with multiorgan dysfunction syndrome, better Sepsis present on admission, better Necrotizing fasciitis of the abdominal wall ? History of multiple falls likely the precipitant. PSAE and Kleb pneumo pneumonia. PSAE and kleb in urine ? contamination as 2 organisms. Acute rhabdomyolysis Acute renal failure: Prerenal, sepsis, rhabdomyolysis Acute metabolic encephalopathy likely sepsis related. Baseline unknown Leukocytosis, lower today - nothing new on C/S; last OR C/S MRSA - could be reactive from last OR Recommendations: Continue Dapto IV (Vanco DELMI 2, clinically still has new areas of erythema and e /o infection outside wound vac margin, acute renal failure) We will order antifungal powder to the groin Follow CBC Monitor progress Discussed with Wanda Barnes MD August 15, 2017 09:38
[2017-08-15] MEDS: FAMOTIDINE 20 MG TAB PO SCH ×2 (09:54→20:59)
[2017-08-15] MEDS: MULTIVITAMIN-OPHTHALMIC 1 TAB PO SCH (09:54)
[2017-08-15] MEDS: CALCIUM/VITAMIN D 250 MG/125 U TAB PO SCH (09:54)
[2017-08-15] MEDS: CHLOROTHIAZIDE 250 MG TAB PO SCH (09:54)
[2017-08-15] MEDS: DOXAZOSIN MESYLATE 2 MG TAB PO SCH (09:54)
--- NOTE | 2017-08-15 10:44 | HHI.PR ---
Subjective Subjective Notes vac with leak this am, off pressors, +diarrhea Objective Vitals/I&O Vital Signs Date Time Temp Pulse Resp B/P (MAP) Pulse Ox O2 Delivery O2 Flow Rate FiO2 08/15/17 08:34 100 35 08/15/17 06:00 69 08/15/17 04:00 98.7 20 114/62 (79) Labs Laboratory Tests Test 08/15/17 00:45 08/15/17 08:22 Urine Color YELLOW Urine Turbidity CLEAR Urine pH 6.5 Urine Specific [place] 1.018 Urine Protein TRACE Urine Glucose (UA) NEG Urine Ketones NEG Urine Occult Blood NEG Urine Nitrite NEG Urine Bilirubin NEG Urine Urobilinogen 0.2 Urine Leukocyte Esterase NEG Urine RBC 1 Urine WBC 6 Urine Squamous Epithelial Cells <1 Urine Transitional Epithelial Cells <1 Urine Renal Epithelial Cells <1 Urine Bacteria RARE Urine Hyaline Casts 26 Urine Granular Casts 2 Urine Mucus FEW Microscopic Urinalysis Comment CATH-CULTURE IND Total Creatine Kinase 119 Date/Time Source Procedure Growth Status 08/06/17 00:43 Blood Peripheral Aerobic Blood Culture - Final NO GROWTH IN 5 DAYS Complete 08/06/17 00:43 Blood Peripheral Anaerobic Blood Culture - Final QNS - SEE AEROBE REPORT Complete 08/05/17 05:40 Sputum Endotracheal Gram Stain - Final Complete 08/05/17 05:40 Sputum Culture - Final Pseudomonas Aeruginosa Klebsiella Pneumoniae Complete 08/15/17 00:45 Urine Catheterized Urine Urine Culture Pending Received 07/27/17 15:30 Wound Other Fungal Smear - Final NO FUNGAL ELEMENTS SEEN. Resulted 07/27/17 15:30 Wound Other Fungal Culture - Preliminary NO GROWTH IN 2 WEEKS Resulted Abdomen: Other (vac, leak, reinforcement shows no leak) A/P Assessment and Plan Soft tissues necrotizing infection s/p incision and wide excisional debridement and multiple vac changes PLAN ok for nursing reinforcement as needed. call md if further issues continue abx vent per isc, s/p trach close monitoring plastics for skin grafting select planning when bed available from surgery stand point Tip Dumont MD August 15, 2017 10:43
[2017-08-15] MEDS: NYSTATIN 100,000 U/GM PWD 15 GM BTL TOPICAL SCH ×2 (11:35→21:00)
[2017-08-15] MEDS: oxyCODONE HCL ORAL CONC 5 MG/0.25 ML SYRINGE PO PRN (11:35)
--- NOTE | 2017-08-15 14:05 | HHI.CCPN ---
Subjective Remarks/Hospital Course This is a 62-year-old female with a history of developmental delay and recurrent urinary tract infections who presents with new onset right-sided abdominal and flank pain. Per the [facility] admission note this is been going on for approximately 4 weeks. Patient has a history of developmental delay and is difficult to get a complete history from her, no analysis with her on my evaluation. On my evaluation she endorses flank pain radiating around to her chest. She endorses subjective chills. Denies recent fevers to me. Also endorses nausea, vomiting. In the emergency department she was found to have significant erythema, rubor, dolor, and edema from approximately the fifth intercostal space down to the eighth or ninth intercostal space wrapping around from the midline in the back all the way around to just medial to the breast. CT scan of the abdomen and pelvis confirms significant subcutaneous edema, but this area of edema appears to be contained by intact fascial planes, particularly in the midline of the back. Laboratory evidence is significant for a white blood cell count of 27k, creatinine is 3.58, potassium 5.4, bicarb of 17.9, anion gap elevated at 15, BUN of 64, an initial lactate of 5.1. In the emergency department she received 3 L of crystalloid IV fluids. Despite this she is hypotensive with a mean arterial pressure of 51. Critical care medicine is consulted to evaluate manage her presumed septic shock secondary to severe cellulitis of the trunk. I have given her an additional liter of crystalloid and then placed central venous access, see separate procedure note for details. In addition her lactate is starting to clear and is now 2.9 with an more currently pending, however it is not clearing fast enough and she remains oliguric. I placed a Scales for accurate hourly I's and O's. The remainder of the review systems for the patient is negative except documented in the HPI, although this is severely limited by her baseline developmental delay. Subjective 07/23: Patient remains on vasopressors, noted metabolic acidosis, bicarbonate level of 15. Sodium bicarbonate infusion initiated. 07/24 Patient was intubated early this morning now on Vasopressin and Neosyn 300 mics in addition patient is on Amio and Bicarb drips. WBC increased 31. CT abd/pelvis showed right sided cellulites and developing myositis. 07/25 Patient went to OR yesterday s/p wide excisional debridement of soft tissue infection with VAC placement for necrotizing soft tissue infection of abdomen, right hip area right torso area measuring approximately 32 x 18 inches x 2 inches deep. She remains on Vasopressin 0.04 and Neosyn down to 120 mics. On Amio drip. 07/26 No events overnight. Off all pressors, WBC is trending down. On Amio drip. 07/27 Patient remains intubated for return to OR today and wound vac exchange. 07/28 Patient s/p excisional debridement with vac change yesterday intubated and sedated with Fentanyl infusion. 07/29 Patient remains intubated and sedated with Fentanyl and Versed drips. Afebrile. 07/30 No events overnight. Patient remains sedated with Fentanyl drip and intubated. For OR today for further debridement and wound vac exchange. Afebrile. 07/31 Patient went to OR yesterday for vac exchange, Afebrile, WBC is trending down, Intubated and now sedated with Fentanyl and Versed 2mg/hr 08/01: Remains sedated, orally intubated on mechanical ventilation. Scheduled for OR today for vac exchange. 08/02: Remains intubated scheduled for OR again today. Antibiotics per ID. Slight increase in WBC count is 17.2 08/03: s/p Excisional debridement with VAC change yesterday by Dr. Dumont. Tolerating CPAP but not waking up or following commands. Dr. Dumont plans for further wound debridement and VAC change either tomorrow or Monday. Anticipating OR will leave patient intubated. WBC 19.9 today, will discuss with ID 08/04: Remains intubated, intermittently agitated on the vent. Or planned for tomorrow by Dr. Dumont. WBC count is slightly improved today 16.7 08/05: Patient is more critical today with worsening sepsis. T-max 102, WBC count up to 22.6. Hypotensive blood pressure 78/51. I have ordered 1 L normal saline bolus. Pancultured overnight. Zosyn started by Dr. Mcdonald. I will start micafungin also. Will inform ID. Dr. Dumont planning for OR today 08/06: Evaluated by night police chief deputy for persistent worsening hypotension called to bedside to evaluate patient with worsening hypotension. Given 500 cc 5 % albumin 1 without improvement in hypotension. A right subclavian central line was placed and norepinephrine infusion was started for persistent septic shock. Currently map remains above 65, on Levophed at 4 mcg/min. WBC 16.1 slightly improved from yesterday. Hemoglobin has dropped to 7.2 approximately 2 g drop. Transfuse 1 unit of PRBC stat. T-max 100.7, urine culture growing GNR 08/07: Remains sedated, orally intubated on mechanical ventilation. Wound VAC in place. On Levophed 2 mics per minute for hypotension. 08/08: Sedated, orally intubated on mechanical ventilation. Wound VAC remains in place. Tolerating tube feeds. Discussed with Dr. Dumont who is planning to take patient to OR tomorrow for wound VAC change as well as tracheostomy. 08/09: OR today for wound VAC change and tracheostomy. Remains on Levophed at 1 mcg/min. If continued Levophed requirement, right subclavian central line heading towards the left subclavian need to be replaced 08/10: Patient went to OR today for wound vac change and tracheostomy. Had further wound debridement. Profoundly hypothermic. Temperature 92. Warming blanket applied. Send CBC. Discussed with ID. 08/11: Late entry note. Pt seen at 0830. Afebrile. No acute events overnight. Patient currently normothermic, WBC count downtrending. Palpable pulses B/L dorsalis pedis and post tibialis. 08/12 : No acute events. Possible plan for wound VAC replacement tomorrow. Overnight the wound VAC was dislodged Dr. Floyd follow in for wound VAC adjustment. Patient off sedation awake alert mouthing words appropriately. 08/13: doing well. conversant. remains on vent: when PSV support weaned, becomes tachypneic. going to OR tomorrow for washout. afebrile. denies complaints. 08/14: no complaints. scales removed yesterday but has not voided. will start cardura to help with bladder control. to OR today for washout. 08/15: Awake alert on the vent. Will attempt CPAP, and T-piece if tolerated. Plan for OR for washout VAC change again tomorrow Objective Vital Signs Date Time Temp Pulse Resp B/P (MAP) Pulse Ox O2 Delivery O2 Flow Rate FiO2 08/15/17 13:01 61 08/15/17 12:45 18 5/22/18 11:52 100 35 08/15/17 11:30 111/56 (74) 08/15/17 08:00 98.2 Intake and Output 08/15/17 08/15/17 08/16/17 08:00 16:00 00:00 Intake Total 60 ml Output Total 1100 ml Balance -1040 ml Result Diagram: 08/13/17 0447 08/13/17 0447 Imaging Last Impressions Chest X-Ray 07/30/17 0000 Signed Impressions: Service Date/Time: Sunday, July 30, 2017 08:14 - CONCLUSION: Underinflation with atelectasis at the lung bases. Otherwise, no acute finding is seen given the technique. Derrick García MD Brain MRI 07/28/17 0000 Signed Impressions: Service Date/Time: Friday, July 28, 2017 14:38 - CONCLUSION: 1. Unremarkable MRI examination the brain. 2. No acute abnormality or interval change. Bob Daly MD Chest CT 07/24/17 0000 Signed Impressions: Service Date/Time: Monday, July 24, 2017 05:36 - CONCLUSION: 1. Stranding in the subcutaneous tissues about the right flank with fluid adjacent to the latissimus dorsi. Stranding extends up into the right breast. Findings could represent developing cellulitis. 2. In addition, there is now a small right-sided effusion with bilateral dependent atelectatic changes. Jerome Brady MD Abdomen/Pelvis CT 07/24/17 0000 Signed Impressions: Service Date/Time: Monday, July 24, 2017 05:36 - CONCLUSION: 1. CT findings concerning for a right sided cellulitis and developing myositis. There is some asymmetric prominence of the latissimus dorsi muscle on the right. Unorganized fluid in the deep subcutaneous tissues adjacent to the muscle belly. No drainable fluid collection, however. 2. Developing dependent areas of consolidation, right greater than left with an associated small right-sided effusion. Jerome Brady MD Head CT 07/22/17 1253 Signed Impressions: Service Date/Time: Saturday, July 22, 2017 13:26 - CONCLUSION: No acute disease. Derrick Henry MD Objective Remarks GENERAL: Elderly female, lying in bed, trached. HEENT: Normocephalic. Atraumatic. Pupils equal, round, reactive, conjugate. NGT in place NECK: Trachea is midline. There is no JVD. Tracheostomy in place CHEST: Equal chest rise. PSV 10/5/30%. CARDIOVASCULAR: RRR, nl ABDOMEN: Soft, nontender, nondistended, wound Vac in place on the right flank covering extensive areas of debridement. MUSCULOSKELETAL: Gangrene of 2-4 toes on right. NEUROLOGICAL: awake, alert, follows commands. no focal deficits. Date of Insertion: Jul 22, 2017 A/P Assessment and Plan Active problems: Chronic hypoxic and hypercarbic respiratory failure Right flank necrotizing fasciitis Pneumonia (HCAP) Septic shock, resolved. Hypothermia- resolved Acute metabolic encephalopathy- resolved Anemia requiring transfusion Acute kidney injury- resolved Elevated CK- resolved Thrombocytopenia - resolved Hypothyroidism Acute protein calorie malnutrition- moderate chronic pain secondary to post-surgical debridement and wound Urinary Retention Plan: Neurologic: Neuro checks per ICU protocol. d/c fent, versed tramadol, oxycodone, morphine prn pain 07/22 CT brain: No acute disease. MRI brain 07/28 Unremarkable Neuro exam much improved and patient following commands Respiratory: Continue with vent support keep sats >92% PSV 10/5/30%. daily weaning of PSV. Attempt TP if tolerated status post tracheostomy by Dr. Dumont in the OR 08/10/17. Bronchodilators, ICU vent bundle. Cardiovascular: Monitor HR and BP keep MAP>65mmHg. Echo showed EF 50-55% diltiazem 60mg po q6h Renal: Monitor renal function, I/O's, Avoid nephrotoxins Renal is following- . Free water to 200ml Q8, monitor sodium level. Diuril 250mg po. Cardura for urinary retention FEN/GI: On Pepcid 10mg BID for GI prophylaxis Tube feeds- Glucerna 1.5 with goal rate 45ml/hr ID: Urine culture and sputum culture from 08/04 and 08/05/2017 growing E. coli and Pseudomonas pansensitive Continue with abx per ID recommendations 07/24, 07/27 Wound cx :MRSA 07/24 BC :NGTD 07/23: urine cx: No growth 07/22 BC: NGTD 08/04 UC: GNR Path report: Abdominal soft tissue excision: Skin and subcutaneous adipose tissue with acute cellulitis and multifocal abscess formation 07/30 Wound vac exchange 07/27 s/p excisional debridement with vac change of torso and abdomen 07/24 s/p wide excisional debridement of soft tissue infection with VAC placement for necrotizing soft tissue infection of abdomen, right hip area right torso area measuring approximately 32 x 18 inches x 2 inches deep. Surgery -Dr. Dumont. s/p debridement and wound VAC change 08/10/[address] Dumont. plan for debridement tomorrow 08/14. Heme: Monitor CBC, transfuse PRBC as needed for goal hgb > 7. Endocrine: Levothyroxine 112 mcg/day on hold. TSH:0.08 on 07/24 Glucose monitoring per ICU protocol. -- Continue SSI medium scale for glycemic control MSK: Dry gangrene setting in of toes on right- Likely pressors induced ischemia of toes. Seen by vascular surg- no additional vascular work up needed given palpable pulses, Prophylaxis: GI Prophylaxis Famotidine DVT Prophylaxis SCDs. Chemical DVT prophylaxis when cleared by Dr. Dumont-holding due to anemia requiring transfusion Lines: Central line placed on 07/22 DCd 08/05/17. Peripheral IVs 2, may require scales catheter for urinary retention. OVERALL IMPRESSION: very deconditioned. weak. chronic respiratory failure and likely critical illness myopathy. needs long-term acute care facility for weaning. To OR 08/16/17 for debridement. Tracey Meza MD August 15, 2017 14:05
[2017-08-15] MEDS: DAPTOMYCIN IV SCH (17:28)
[2017-08-15] MEDS: SODIUM CHLORIDE 0.9% IV SCH (17:28)
[2017-08-16] VITALS (30 sets, daily range): BP systolic 110–143; BP diastolic 61–88; PULSE 66–100; RESP 12–19; TEMP 97.9–98.3; O2SAT 99–100
[2017-08-16] MEDS: DILTIAZEM HCL 60 MG TAB PO SCH ×4 (00:15→18:05)
[2017-08-16] MEDS: MORPHINE SULFATE 4 MG/ML INJ IV PUSH PRN ×7 (00:15→23:32)
[2017-08-16 04:29] LABS: HEMATOCRIT 28.1 % (35.0-46.0); HEMOGLOBIN 9.3 GM/DL (11.6-15.3); MEAN CELL VOLUME 82.2 FL (80.0-100.0); MEAN CORPUSCULAR HEMOGLOBIN 27.1 PG (27.0-34.0); MEAN PLATELET VOLUME 5.7 FL (7.0-11.0); PLATELET COUNT 386 TH/MM3 (150-450); RED BLOOD COUNT 3.42 MIL/MM3 (4.00-5.30); RED CELL DISTRIBUTION WIDTH 16.1 % (11.6-17.2); WHITE BLOOD COUNT 17.1 TH/MM3 (4.0-11.0)
[2017-08-16 04:53] LABS: ALBUMIN 1.9 GM/DL (3.4-5.0); BICARBONATE 22.9 MEQ/L (21.0-32.0); BLOOD UREA NITROGEN 11 MG/DL (7-18); CALCIUM 8.9 MG/DL (8.5-10.1); CHLORIDE 97 MEQ/L (98-107); CREATININE 0.75 MG/DL (0.50-1.00); GLOMERULAR FILTRATION RATE 78 ML/MIN (>89); GLUCOSE,RANDOM 80 MG/DL (74-106); SODIUM (NA) 130 MEQ/L (136-145)
[2017-08-16 04:55] LABS: ALT (GPT) 61 U/L (10-53); AST (GOT) 41 U/L (15-37)
[2017-08-16 04:57] LABS: ALKALINE PHOSPHATASE 86 U/L (45-117); TOTAL BILIRUBIN ADULT 0.3 MG/DL (0.2-1.0); TOTAL PROTEIN 5.9 GM/DL (6.4-8.2)
[2017-08-16] MEDS: FREE WATER G-TUBE SCH ×3 (05:19→22:00)
[2017-08-16] MEDS: CALCIUM/VITAMIN D 250 MG/125 U TAB PO SCH (09:12)
[2017-08-16] MEDS: FAMOTIDINE 20 MG TAB PO SCH ×2 (09:12→20:48)
[2017-08-16] MEDS: DOXAZOSIN MESYLATE 2 MG TAB PO SCH (09:12)
[2017-08-16] MEDS: CHLOROTHIAZIDE 250 MG TAB PO SCH (09:12)
[2017-08-16] MEDS: DOCUSATE SODIUM 50 MG/SENNA 8.6 MG TAB PO SCH ×2 (09:12→20:48)
[2017-08-16] MEDS: POTASSIUM CHLOR 20 MEQ PREMIX 100 ML IV PRN ×2 (09:13→14:01)
[2017-08-16] MEDS: CHLORHEXIDINE 0.12% (ORAL KIT) 15 ML CUP MT SCH ×2 (09:14→20:47)
[2017-08-16] MEDS: MULTIVITAMIN-OPHTHALMIC 1 TAB PO SCH (09:14)
[2017-08-16] MEDS: NYSTATIN 100,000 U/GM PWD 15 GM BTL TOPICAL SCH ×2 (09:14→20:48)
[2017-08-16] MEDS: SODIUM CHLORIDE 0.9% FLUSH 10 ML FLUSH IV FLUSH SCH ×2 (09:15→22:04)
--- NOTE | 2017-08-16 09:26 | HHI.PR ---
Subjective Subjective Notes no acute issues, cpap/vent, intermittent blockage Objective Vitals/I&O Vital Signs Date Time Temp Pulse Resp B/P (MAP) Pulse Ox O2 Delivery O2 Flow Rate FiO2 08/16/17 08:17 100 35 08/16/17 06:00 75 08/16/17 04:00 98.0 12 118/61 (80) Labs Laboratory Tests Test 08/15/17 14:10 08/16/17 03:20 Stool C. difficile Toxin (PCR) NEGATIVE Stl C. difficile Toxin Epiderm 027 PRESUMPTIVE NEGATIVE White Blood Count 17.1 Red Blood Count 3.42 Hemoglobin 9.3 Hematocrit 28.1 Mean Corpuscular Volume 82.2 Mean Corpuscular Hemoglobin 27.1 Mean Corpuscular Hemoglobin Concent 33.0 Red Cell Distribution Width 16.1 Platelet Count 386 Mean Platelet Volume 5.7 Blood Urea Nitrogen 11 Creatinine 0.75 Random Glucose 80 Total Protein 5.9 Albumin 1.9 Calcium Level 8.9 Alkaline Phosphatase 86 Aspartate Amino Transf (AST/SGOT) 41 Alanine Aminotransferase (ALT/SGPT) 61 Total Bilirubin 0.3 Sodium Level 130 Potassium Level 3.5 Chloride Level 97 Carbon Dioxide Level 22.9 Anion Gap 10 Estimat Glomerular Filtration Rate 78 Date/Time Source Procedure Growth Status 08/06/17 00:43 Blood Peripheral Aerobic Blood Culture - Final NO GROWTH IN 5 DAYS Complete 08/06/17 00:43 Blood Peripheral Anaerobic Blood Culture - Final QNS - SEE AEROBE REPORT Complete 08/05/17 05:40 Sputum Endotracheal Gram Stain - Final Complete 08/05/17 05:40 Sputum Culture - Final Pseudomonas Aeruginosa Klebsiella Pneumoniae Complete 08/15/17 00:45 Urine Catheterized Urine Urine Culture Pending Received 07/27/17 15:30 Wound Other Fungal Smear - Final NO FUNGAL ELEMENTS SEEN. Resulted 07/27/17 15:30 Wound Other Fungal Culture - Preliminary NO GROWTH IN 2 WEEKS Resulted Abdomen: Other (vac with sxn) A/P Assessment and Plan Soft tissues necrotizing infection s/p incision and wide excisional debridement and multiple vac changes PLAN ok for nursing reinforcement as needed, ok for wall sxn if malfxn. call md if further issues continue abx vent per isc, s/p trach close monitoring plastics for skin grafting select planning when bed available from surgery stand point vac change tomorrow or monday Tip Dumont MD August 16, 2017 09:26
--- NOTE | 2017-08-16 10:06 | HHI.IDPN ---
Subjective Subjective Remarks ID COVERAGE Most of the history was obtained by review of medical records. Patient shortly being wheeled out to the operating room for surgical exploration of the site of necrotizing fasciitis Septic shock. Ms. Eldridge is a 62-year-old female who reportedly has developmental delays per chart review. Patient presented to the emergency department via EMS for evaluation of right-sided abdominal, flank and back erythema swelling and pain. Patient's care provider and power of employment attorney listed on the chart is Mr. Felipe Nagy who can be contacted at [phone]. Patient had earlier reported to others that she was feeling unwell for the past 4 weeks. Patient reported increase in her migraine symptoms. Patient also reported continuous, nonradiating sharps times burning pain over the right upper quadrant that is expanded to include her right flank and back. She denies any trauma to these areas. Patient reported to others prior to being intubated that she had nausea and vomiting associated with decreased appetite. Patient also had reported to others that she was dizzy and lightheaded. Per review of records it appears that patient has had multiple falls as well as has had urinary incontinence at baseline with decreased urine output over the last few days. Patient also reported subjective symptoms such as burning with urination. Per EMS, patient was found to be hypotensive. Systolic pressure was recorded in the 70s. She received fluid in transit with minimal improvement. In the emergency department she was found to have significant erythema,pain and edema from approximately the fifth intercostal space down to the eighth or ninth intercostal space wrapping around from the midline in the back all the way around to just medial to the breast. CT scan of the abdomen and pelvis confirms significant subcutaneous edema, but this area of edema appears to be contained by intact fascial planes, particularly in the midline of the back. Laboratory evidence is significant for a white blood cell count of 27k, creatinine is 3.58, potassium 5.4, bicarb of 17.9, anion gap elevated at 15, BUN of 64, an initial lactate of 5.1. In the emergency department she received 3 L of crystalloid IV fluids. Critical care medicine is consulted to evaluate manage her presumed septic shock secondary to severe cellulitis of the trunk. Overnight critical care medicine was consulted for worsening sepsis and septic shock. Patient had to be intubated and upon evaluation was found to have evidence suggestive of necrotizing fasciitis involving similar areas as reported on the emergency room but had progressed beyond the line of demarcation. Patient was noted to have significant blisters and blackening of the areas. Critical care medicine change the regimen to Zosyn IV, vancomycin IV and added clindamycin IV and placed a surgical consult. Patient was evaluated by Dr. Thor Dumont of surgery and patient is being wheeled to the operating room shortly. At the time of my evaluation patient is in the ICU currently on high-dose Levophed as well as vasopressin with slight decrease in Levophed requirement after addition of clindamycin IV. Urine output is low. No diarrhea. No diffuse rash or skin changes other than as described. Notes reviewed Discussed with RN Afebrile BP good Tolerating CPAP - possible Tpiece today Plans for vac dressing change for pr Monday WBC higher 08/15 chest x-ray normal Antibiotics Dapto IV Current Medications Medications (Trade) Dose Ordered Sig/Beatrice Route Start Time Stop Time Status Last Admin (Ocuvite) 1 tab DAILY PO 07/23/17 09:00 08/16/17 09:14 Patient Own Medication PT OWN MED: B[facility]... DAILY PO 07/23/17 09:00 Future Hold 08/06/17 09:00 (Oscal-D 250-125) 500 mg DAILY PO 07/23/17 09:00 08/16/17 09:12 (NS Flush) 2 ml UNSCH PRN IV FLUSH 07/22/17 16:45 08/01/17 08:02 (NS Flush) 2 ml BID IV FLUSH 07/22/17 21:00 08/16/17 09:15 (Zofran Inj) 4 mg Q6H PRN IVP 07/22/17 16:45 07/23/17 22:11 (Tylenol) 650 mg Q6H PRN PO 07/22/17 16:45 08/05/17 23:19 (Ultram) 100 mg Q4H PRN PO 07/22/17 16:45 08/09/17 20:45 (Narcan Inj) 0.4 mg UNSCH PRN IV PUSH 07/22/17 16:45 (Natalie-Colace) 1 tab BID PO 07/22/17 21:00 08/16/17 09:12 (Senokot) 17.2 mg Q12H PRN PO 07/22/17 16:45 (Dulcolax Supp) 10 mg DAILY PRN RECTAL 07/22/17 16:45 (Lactulose Liq) 30 ml DAILY PRN PO 07/22/17 16:45 ([facility] [place] [facility]) Patient in critical care unit? Ass... Q361D .XX 07/22/17 18:45 (Milk Of Magnesia Liq) 30 ml Q12H PRN PO 07/23/17 15:30 (Peridex 0.12% Liq) 15 ml BID@08,20 MT 07/24/17 08:00 08/16/17 09:14 (D50w (Vial) Inj) 50 ml UNSCH PRN IV PUSH 07/25/17 08:45 08/07/17 12:24 (Glucagon Inj) 1 mg UNSCH PRN OTHER 07/25/17 08:45 Potassium Chloride 100 ml @ 50 mls/hr Q2H PRN IV 07/28/17 09:00 07/28/17 12:57 Potassium Chloride 100 ml @ 50 mls/hr Q2H PRN IV 07/28/17 09:00 07/29/17 02:04 (K-Lyte Cl Eff) 50 meq UNSCH PRN PO 07/28/17 09:00 07/29/17 02:05 Potassium Chloride 100 ml @ 25 mls/hr UNSCH PRN IV 07/28/17 09:00 Potassium Chloride 100 ml @ 50 mls/hr Q2H PRN IV 07/28/17 09:00 08/16/17 09:13 Magnesium Sulfate 4 gm/Sodium Chloride 100 ml @ 50 mls/hr UNSCH PRN IV 07/28/17 09:00 (Mag-Ox) 800 mg UNSCH PRN PO 07/28/17 09:00 Magnesium Sulfate 2 gm/Sodium Chloride 100 ml @ 50 mls/hr UNSCH PRN IV 07/28/17 09:00 (K-Phos) 2,000 mg Q4H PRN PO 07/28/17 09:00 08/14/17 17:49 Sodium Phosphate 30 mmol/Sodium Chloride 250 ml @ 42 mls/hr UNSCH PRN IV 07/28/17 09:00 (K-Phos) 2,000 mg UNSCH PRN PO/TUBE 07/28/17 09:00 Potassium Phosphate 30 mmol/ Sodium Chloride 260 ml @ 42 mls/hr UNSCH PRN IV 07/28/17 09:00 08/02/17 17:00 (Cardizem) 60 mg Q6HR PO 07/29/17 14:15 08/16/17 05:18 (Apresoline Inj) 10 mg Q6H PRN IV PUSH 07/29/17 14:15 07/29/17 14:33 Daptomycin 690 mg/ Sodium Chloride 100 ml @ 200 mls/hr Q24H IV 07/29/17 18:00 08/15/17 17:28 (Cathflo Activase Inj) 2 mg Q2H PRN INTRACATH 08/04/17 22:00 (Chapstick) 1 applic UNSCH PRN TOPICAL 08/12/17 17:30 08/12/17 17:52 (Free Water) 200 ml Q8HR G-TUBE 08/13/17 22:00 08/16/17 05:19 (Morphine Inj) 4 mg Q2H PRN IV PUSH 08/13/17 20:00 08/16/17 05:19 (Roxicodone Intensol Liq) 10 mg Q3H PRN PO 08/13/17 20:00 08/15/17 11:35 (Diuril) 250 mg DAILY PO 08/14/17 09:00 08/16/17 09:12 (Cardura) 2 mg DAILY PO 08/14/17 09:30 08/16/17 09:12 (Pepcid) 20 mg BID PO 08/15/17 09:00 08/16/17 09:12 (Mycostatin Powder) 1 applic Q12HR TOPICAL 08/15/17 09:45 08/16/17 09:14 Lines Line sites with no e.o infection Past Medical History Anxiety Depression Developmental delays - mental handicap Headaches/migraines Hypothyroidism GERD Chest pain Hx of UTIs Renal insufficiency Bladder incontinence Chronic back pain Thyroid surgery EGD - 08/30/16 Cholecystectomy - 03/04/15 D&C Hysterectomy Colonoscopy - 07/30/16 and 08/11/15 Allergies: Coded Allergies: No Known Allergies (Verified Allergy, Unknown, 07/22/17) Objective . Vital Signs Date Time Temp Pulse Resp B/P (MAP) Pulse Ox O2 Delivery O2 Flow Rate FiO2 08/16/17 08:17 100 35 08/16/17 06:00 75 5/23/18 04:28 100 35 18 04:00 35 18 04:00 81 08/16/17 04:00 98.0 81 12 118/61 (80) 100 08/16/17 02:00 82 08/16/17 01:24 100 35 18 00:00 35 18 00:00 80 08/16/17 00:00 97.9 79 14 143/74 (97) 100 08/15/17 22:39 100 35 08/15/17 22:00 74 08/15/17 20:31 100 35 08/15/17 20:00 70 08/15/17 20:00 35 08/15/17 20:00 97.8 70 12 107/64 (78) 100 08/15/17 18:00 65 08/15/17 17:00 61 08/15/17 16:31 58 112/55 (74) 100 08/15/17 16:31 58 08/15/17 16:00 35 08/15/17 16:00 59 08/15/17 16:00 59 104/59 (74) 100 08/15/17 15:30 67 116/65 (82) 100 08/15/17 15:30 67 08/15/17 15:00 62 08/15/17 15:00 62 102/56 (71) 100 08/15/17 14:30 64 08/15/17 14:30 64 112/58 (76) 100 08/15/17 14:00 64 104/55 (71) 100 08/15/17 14:00 64 08/15/17 13:30 63 97/54 (68) 100 08/15/17 13:01 61 08/15/17 13:01 61 99/58 (72) 100 08/15/17 12:45 18 08/15/17 12:31 87 151/81 (104) 100 08/15/17 12:31 87 08/15/17 12:00 68 119/65 (83) 100 18 12:00 35 18 12:00 68 18 11:52 100 35 08/15/18 11:30 63 18 11:30 63 111/56 (74) 100 08/15/17 11:00 62 08/15/17 11:00 62 95/52 (66) 100 08/15/17 10:31 68 08/15/17 10:31 68 127/63 (84) 100 . Laboratory Tests Test 08/16/17 03:20 White Blood Count 17.1 TH/MM3 Red Blood Count 3.42 MIL/MM3 Hemoglobin 9.3 GM/DL Hematocrit 28.1 % Mean Corpuscular Volume 82.2 FL Mean Corpuscular Hemoglobin 27.1 PG Mean Corpuscular Hemoglobin Concent 33.0 % Red Cell Distribution Width 16.1 % Platelet Count 386 TH/MM3 Mean Platelet Volume 5.7 FL Laboratory Tests Test 08/15/17 08:22 08/16/17 03:20 Total Creatine Kinase 119 U/L Blood Urea Nitrogen 11 MG/DL Creatinine 0.75 MG/DL Random Glucose 80 MG/DL Total Protein 5.9 GM/DL Albumin 1.9 GM/DL Calcium Level 8.9 MG/DL Alkaline Phosphatase 86 U/L Aspartate Amino Transf (AST/SGOT) 41 U/L Alanine Aminotransferase (ALT/SGPT) 61 U/L Total Bilirubin 0.3 MG/DL Sodium Level 130 MEQ/L Potassium Level 3.5 MEQ/L Chloride Level 97 MEQ/L Carbon Dioxide Level 22.9 MEQ/L Anion Gap 10 MEQ/L Estimat Glomerular Filtration Rate 78 ML/MIN Microbiology Date/Time Source Procedure Growth Status 08/15/17 00:45 Urine Catheterized Urine Urine Culture Pending Received Imaging Last Impressions Chest X-Ray 08/15/17 0600 Signed Impressions: Service Date/Time: Tuesday, August 15, 2017 02:15 - CONCLUSION: Stable appearance with no acute cardiopulmonary disease. Kvng Nuñez MD Brain MRI 07/28/17 0000 Signed Impressions: Service Date/Time: Friday, July 28, 2017 14:38 - CONCLUSION: 1. Unremarkable MRI examination the brain. 2. No acute abnormality or interval change. Bob Daly MD Chest CT 07/24/17 0000 Signed Impressions: Service Date/Time: Monday, July 24, 2017 05:36 - CONCLUSION: 1. Stranding in the subcutaneous tissues about the right flank with fluid adjacent to the latissimus dorsi. Stranding extends up into the right breast. Findings could represent developing cellulitis. 2. In addition, there is now a small right-sided effusion with bilateral dependent atelectatic changes. Jerome Brady MD Abdomen/Pelvis CT 07/24/17 0000 Signed Impressions: Service Date/Time: Monday, July 24, 2017 05:36 - CONCLUSION: 1. CT findings concerning for a right sided cellulitis and developing myositis. There is some asymmetric prominence of the latissimus dorsi muscle on the right. Unorganized fluid in the deep subcutaneous tissues adjacent to the muscle belly. No drainable fluid collection, however. 2. Developing dependent areas of consolidation, right greater than left with an associated small right-sided effusion. Jerome rBady MD Head CT 07/22/17 1253 Signed Impressions: Service Date/Time: Saturday, July 22, 2017 13:26 - CONCLUSION: No acute disease. Derrick Hnery MD Physical Exam GENERAL: Awake and alert, on the vent, NAD. SKIN: No generalized rash. Dry, cool extremities HEAD: Atraumatic. Normocephalic. No temporal or scalp tenderness. EYES: Pupils equal round and reactive. Extraocular motions intact. No scleral icterus. No injection or drainage. ENT: Intubated. Moist mucosa NECK: Trachea midline. Supple, nontender, no meningeal signs. CARDIOVASCULAR: Heart sounds audible. No murmur appreciated. RESPIRATORY: Clear to auscultation. Breath sounds equal bilaterally. No wheezes , rales, or rhonchi. GASTROINTESTINAL: Abdomen soft. Wound vac area noted. Extensive area covered with wound vac sponge, output serosanguineous. Has a candidal rash in the groin MUSCULOSKELETAL: Extremities without clubbing, cyanosis. Some pedal edema. Ischemic toes R foot 2-4 toes and tip of 5th toe, no change. Cool feet NEUROLOGICAL: Grossly nonfocal Psych calm and cooperative IV line sites with no e.o infection Assessment & Plan Remarks Septic shock with multiorgan dysfunction syndrome, better Sepsis present on admission, better Necrotizing fasciitis of the abdominal wall ? History of multiple falls likely the precipitant. PSAE and Kleb pneumo pneumonia. PSAE and kleb in urine ? contamination as 2 organisms. Acute rhabdomyolysis Acute renal failure: Prerenal, sepsis, rhabdomyolysis Acute metabolic encephalopathy likely sepsis related. Baseline unknown Leukocytosis, persistent - nothing new on C/S; last OR C/S MRSA - could be reactive from last OR Recommendations: Continue Dapto IV (Vanco DELMI 2, clinically still has new areas of erythema and e /o infection outside wound vac margin, acute renal failure) Follow temps Follow CBC Monitor progress Weaning per CCM Discussed with Wanda Barnes MD August 16, 2017 10:06
[2017-08-16] MEDS: oxyCODONE HCL ORAL CONC 5 MG/0.25 ML SYRINGE PO PRN ×4 (10:29→22:05)
--- NOTE | 2017-08-16 11:33 | HHI.CCPN ---
Subjective Remarks/Hospital Course This is a 62-year-old female with a history of developmental delay and recurrent urinary tract infections who presents with new onset right-sided abdominal and flank pain. Per the [facility] service admission note this is been going on for approximately 4 weeks. Patient has a history of developmental delay and is difficult to get a complete history from her, no analysis with her on my evaluation. On my evaluation she endorses flank pain radiating around to her chest. She endorses subjective chills. Denies recent fevers to me. Also endorses nausea, vomiting. In the emergency department she was found to have significant erythema, rubor, dolor, and edema from approximately the fifth intercostal space down to the eighth or ninth intercostal space wrapping around from the midline in the back all the way around to just medial to the breast. CT scan of the abdomen and pelvis confirms significant subcutaneous edema, but this area of edema appears to be contained by intact fascial planes, particularly in the midline of the back. Laboratory evidence is significant for a white blood cell count of 27k, creatinine is 3.58, potassium 5.4, bicarb of 17.9, anion gap elevated at 15, BUN of 64, an initial lactate of 5.1. In the emergency department she received 3 L of crystalloid IV fluids. Despite this she is hypotensive with a mean arterial pressure of 51. Critical care medicine is consulted to evaluate manage her presumed septic shock secondary to severe cellulitis of the trunk. I have given her an additional liter of crystalloid and then placed central venous access, see separate procedure note for details. In addition her lactate is starting to clear and is now 2.9 with an more currently pending, however it is not clearing fast enough and she remains oliguric. I placed a Scales for accurate hourly I's and O's. The remainder of the review systems for the patient is negative except documented in the HPI, although this is severely limited by her baseline developmental delay. Subjective 07/23: Patient remains on vasopressors, noted metabolic acidosis, bicarbonate level of 15. Sodium bicarbonate infusion initiated. 07/24 Patient was intubated early this morning now on Vasopressin and Neosyn 300 mics in addition patient is on Amio and Bicarb drips. WBC increased 31. CT abd/pelvis showed right sided cellulites and developing myositis. 07/25 Patient went to OR yesterday s/p wide excisional debridement of soft tissue infection with VAC placement for necrotizing soft tissue infection of abdomen, right hip area right torso area measuring approximately 32 x 18 inches x 2 inches deep. She remains on Vasopressin 0.04 and Neosyn down to 120 mics. On Amio drip. 07/26 No events overnight. Off all pressors, WBC is trending down. On Amio drip. 07/27 Patient remains intubated for return to OR today and wound vac exchange. 07/28 Patient s/p excisional debridement with vac change yesterday intubated and sedated with Fentanyl infusion. 07/29 Patient remains intubated and sedated with Fentanyl and Versed drips. Afebrile. 07/30 No events overnight. Patient remains sedated with Fentanyl drip and intubated. For OR today for further debridement and wound vac exchange. Afebrile. 07/31 Patient went to OR yesterday for vac exchange, Afebrile, WBC is trending down, Intubated and now sedated with Fentanyl and Versed 2mg/hr 08/01: Remains sedated, orally intubated on mechanical ventilation. Scheduled for OR today for vac exchange. 08/02: Remains intubated scheduled for OR again today. Antibiotics per ID. Slight increase in WBC count is 17.2 08/03: s/p Excisional debridement with VAC change yesterday by Dr. Dumont. Tolerating CPAP but not waking up or following commands. Dr. Dumont plans for further wound debridement and VAC change either tomorrow or Monday. Anticipating OR will leave patient intubated. WBC 19.9 today, will discuss with ID 08/04: Remains intubated, intermittently agitated on the vent. Or planned for tomorrow by Dr. Dumont. WBC count is slightly improved today 16.7 08/05: Patient is more critical today with worsening sepsis. T-max 102, WBC count up to 22.6. Hypotensive blood pressure 78/51. I have ordered 1 L normal saline bolus. Pancultured overnight. Zosyn started by Dr. Mcdonald. I will start micafungin also. Will inform ID. Dr. Dumont planning for OR today 08/06: Evaluated by night user experience manager for persistent worsening hypotension called to bedside to evaluate patient with worsening hypotension. Given 500 cc 5 % albumin 1 without improvement in hypotension. A right subclavian central line was placed and norepinephrine infusion was started for persistent septic shock. Currently map remains above 65, on Levophed at 4 mcg/min. WBC 16.1 slightly improved from yesterday. Hemoglobin has dropped to 7.2 approximately 2 g drop. Transfuse 1 unit of PRBC stat. T-max 100.7, urine culture growing GNR 08/07: Remains sedated, orally intubated on mechanical ventilation. Wound VAC in place. On Levophed 2 mics per minute for hypotension. 08/08: Sedated, orally intubated on mechanical ventilation. Wound VAC remains in place. Tolerating tube feeds. Discussed with Dr. Dumont who is planning to take patient to OR tomorrow for wound VAC change as well as tracheostomy. 08/09: OR today for wound VAC change and tracheostomy. Remains on Levophed at 1 mcg/min. If continued Levophed requirement, right subclavian central line heading towards the left subclavian need to be replaced 08/10: Patient went to OR today for wound vac change and tracheostomy. Had further wound debridement. Profoundly hypothermic. Temperature 92. Warming blanket applied. Send CBC. Discussed with ID. 08/11: Late entry note. Pt seen at 0830. Afebrile. No acute events overnight. Patient currently normothermic, WBC count downtrending. Palpable pulses B/L dorsalis pedis and post tibialis. 08/12 : No acute events. Possible plan for wound VAC replacement tomorrow. Overnight the wound VAC was dislodged Dr. Floyd follow in for wound VAC adjustment. Patient off sedation awake alert mouthing words appropriately. 08/13: doing well. conversant. remains on vent: when PSV support weaned, becomes tachypneic. going to OR tomorrow for washout. afebrile. denies complaints. 08/14: no complaints. scales removed yesterday but has not voided. will start cardura to help with bladder control. to OR today for washout. 08/15: Awake alert on the vent. Will attempt CPAP, and T-piece if tolerated. Plan for OR for washout VAC change again tomorrow 08/16: continues to improve very slowly. still needing cpap and weaning support as tolerated. needs to be OOB to chair. Objective Vital Signs Date Time Temp Pulse Resp B/P (MAP) Pulse Ox O2 Delivery O2 Flow Rate FiO2 08/16/17 08:17 100 35 08/16/17 06:00 75 08/16/17 04:00 98.0 12 118/61 (80) Intake and Output 08/16/17 08/16/17 08/17/17 08:00 16:00 00:00 Intake Total 968 ml Output Total 1050 ml Balance -82 ml Result Diagram: 08/16/17 0320 08/16/17 0320 Imaging Last Impressions Chest X-Ray 07/30/17 0000 Signed Impressions: Service Date/Time: Sunday, July 30, 2017 08:14 - CONCLUSION: Underinflation with atelectasis at the lung bases. Otherwise, no acute finding is seen given the technique. Derrick García MD Brain MRI 07/28/17 0000 Signed Impressions: Service Date/Time: Friday, July 28, 2017 14:38 - CONCLUSION: 1. Unremarkable MRI examination the brain. 2. No acute abnormality or interval change. Bob Daly MD Chest CT 07/24/17 0000 Signed Impressions: Service Date/Time: Monday, July 24, 2017 05:36 - CONCLUSION: 1. Stranding in the subcutaneous tissues about the right flank with fluid adjacent to the latissimus dorsi. Stranding extends up into the right breast. Findings could represent developing cellulitis. 2. In addition, there is now a small right-sided effusion with bilateral dependent atelectatic changes. Jerome Brady MD Abdomen/Pelvis CT 07/24/17 0000 Signed Impressions: Service Date/Time: Monday, July 24, 2017 05:36 - CONCLUSION: 1. CT findings concerning for a right sided cellulitis and developing myositis. There is some asymmetric prominence of the latissimus dorsi muscle on the right. Unorganized fluid in the deep subcutaneous tissues adjacent to the muscle belly. No drainable fluid collection, however. 2. Developing dependent areas of consolidation, right greater than left with an associated small right-sided effusion. Jerome Brady MD Head CT 07/22/17 1253 Signed Impressions: Service Date/Time: Saturday, July 22, 2017 13:26 - CONCLUSION: No acute disease. Derrick Henry MD Objective Remarks GENERAL: Elderly female, lying in bed, trached. HEENT: Normocephalic. Atraumatic. Pupils equal, round, reactive, conjugate. NGT in place NECK: Trachea is midline. There is no JVD. Tracheostomy in place CHEST: Equal chest rise. PSV 10/5/30%. CARDIOVASCULAR: RRR, nl ABDOMEN: Soft, nontender, nondistended, wound Vac in place on the right flank covering extensive areas of debridement. MUSCULOSKELETAL: Gangrene of 2-4 toes on right. NEUROLOGICAL: awake, alert, follows commands. no focal deficits. Date of Insertion: Jul 22, 2017 A/P Assessment and Plan Active problems: Chronic hypoxic and hypercarbic respiratory failure Right flank necrotizing fasciitis Pneumonia (HCAP) Septic shock, resolved. Hypothermia- resolved Acute metabolic encephalopathy- resolved Anemia requiring transfusion Acute kidney injury- resolved Elevated CK- resolved Thrombocytopenia - resolved Hypothyroidism Acute protein calorie malnutrition- moderate chronic pain secondary to post-surgical debridement and wound Urinary Retention Plan: Neurologic: Neuro checks per ICU protocol. d/c fent, versed tramadol, oxycodone, morphine prn pain 07/22 CT brain: No acute disease. MRI brain 07/28 Unremarkable Neuro exam much improved and patient following commands Respiratory: Continue with vent support keep sats >92% PSV 10/5/30%. daily weaning of PSV. Attempt TP if tolerated status post tracheostomy by Dr. Dumont in the OR 08/10/17. Bronchodilators, ICU vent bundle. Cardiovascular: Monitor HR and BP keep MAP>65mmHg. Echo showed EF 50-55% diltiazem 60mg po q6h Renal: Monitor renal function, I/O's, Avoid nephrotoxins Renal is following- . Free water to 200ml Q8, monitor sodium level. Diuril 250mg po. Cardura for urinary retention FEN/GI: On Pepcid 10mg BID for GI prophylaxis Tube feeds- Glucerna 1.5 with goal rate 45ml/hr ID: Urine culture and sputum culture from 08/04 and 08/05/2017 growing E. coli and Pseudomonas pansensitive Continue with abx per ID recommendations 07/24, 07/27 Wound cx :MRSA 07/24 BC :NGTD 07/23: urine cx: No growth 07/22 BC: NGTD 08/04 UC: GNR Path report: Abdominal soft tissue excision: Skin and subcutaneous adipose tissue with acute cellulitis and multifocal abscess formation 07/30 Wound vac exchange 07/27 s/p excisional debridement with vac change of torso and abdomen 07/24 s/p wide excisional debridement of soft tissue infection with VAC placement for necrotizing soft tissue infection of abdomen, right hip area right torso area measuring approximately 32 x 18 inches x 2 inches deep. Surgery -Dr. Dumont. s/p debridement and wound VAC change 08/10/[address] Dumont. plan for debridement tomorrow 08/14. Heme: Monitor CBC, transfuse PRBC as needed for goal hgb > 7. Endocrine: Levothyroxine 112 mcg/day on hold. TSH:0.08 on 07/24 Glucose monitoring per ICU protocol. -- Continue SSI medium scale for glycemic control MSK: Dry gangrene setting in of toes on right- Likely pressors induced ischemia of toes. Seen by vascular surg- no additional vascular work up needed given palpable pulses, Prophylaxis: GI Prophylaxis Famotidine DVT Prophylaxis SCDs. Chemical DVT prophylaxis when cleared by Dr. Dumont-holding due to anemia requiring transfusion Lines: Central line placed on 07/22 DCd 08/05/17. Peripheral IVs 2, may require scales catheter for urinary retention. OVERALL IMPRESSION: very deconditioned. weak. chronic respiratory failure and likely critical illness myopathy. needs long-term acute care facility for weaning. Waqas Perdomo MD August 16, 2017 11:33
[2017-08-16] MEDS: METOCLOPRAMIDE HCL 10 MG/2 ML VIAL IV SCH ×2 (13:00→20:48)
[2017-08-16] MEDS: SODIUM CHLORIDE 0.9% IV SCH (17:57)
[2017-08-16] MEDS: DAPTOMYCIN IV SCH (17:57)
[2017-08-17] VITALS (20 sets, daily range): BP systolic 94–150; BP diastolic 52–80; PULSE 69–98; RESP 11–24; TEMP 97.9–98.3; O2SAT 93–100
[2017-08-17] MEDS: DILTIAZEM HCL 60 MG TAB PO SCH ×4 (00:31→18:00)
[2017-08-17] MEDS: METOCLOPRAMIDE HCL 10 MG/2 ML VIAL IV SCH ×3 (04:58→21:42)
[2017-08-17] MEDS: oxyCODONE HCL ORAL CONC 5 MG/0.25 ML SYRINGE PO PRN ×2 (05:01→07:54)
[2017-08-17] MEDS: FREE WATER G-TUBE SCH (05:01)
[2017-08-17] MEDS: MORPHINE SULFATE 4 MG/ML INJ IV PUSH PRN ×3 (05:37→21:44)
[2017-08-17] MEDS: DOXAZOSIN MESYLATE 2 MG TAB PO SCH (07:54)
[2017-08-17] MEDS: FAMOTIDINE 20 MG TAB PO SCH ×2 (07:54→21:42)
[2017-08-17] MEDS: CHLOROTHIAZIDE 250 MG TAB PO SCH (07:54)
[2017-08-17] MEDS: CALCIUM/VITAMIN D 250 MG/125 U TAB PO SCH (07:54)
[2017-08-17] MEDS: MULTIVITAMIN-OPHTHALMIC 1 TAB PO SCH (07:54)
[2017-08-17] MEDS: CHLORHEXIDINE 0.12% (ORAL KIT) 15 ML CUP MT SCH ×2 (07:55→21:42)
[2017-08-17] MEDS: SODIUM CHLORIDE 0.9% FLUSH 10 ML FLUSH IV FLUSH SCH ×2 (07:55→21:42)
[2017-08-17] MEDS: NYSTATIN 100,000 U/GM PWD 15 GM BTL TOPICAL SCH ×2 (07:55→21:43)
[2017-08-17] MEDS: DOCUSATE SODIUM 50 MG/SENNA 8.6 MG TAB PO SCH ×2 (07:55→21:43)
[2017-08-17] MEDS: SODIUM CHLORIDE 0.9% FLUSH 10 ML FLUSH IV FLUSH PRN (07:59)
--- NOTE | 2017-08-17 10:34 | HHI.HCSW ---
[employer] Director Visit Advance Directive Attempted to contact Mr. Nagy/HCP (#[phone]) to assist with getting health care proxy affidavit complete. Unable to connect, number just rings, unable to leave VM. . Follow Up Visit Palliative care will continue to follow throughout hospitalization. Maritza Martinez VIAL GAUGER, STEM ASSEMBLER August 17, 2017 10:34
[2017-08-17] MEDS ORDERED: ePHEDrine/NS 25 MG/5 ML SYRINGE IV ONE (12:00)
[2017-08-17] MEDS ORDERED: PROPOFOL 200 MG/20 ML AMP IV ONE (12:00)
[2017-08-17] MEDS ORDERED: PHENYLEPH/NS 1000 MCG/10 ML SYR IV ONE (12:00)
--- NOTE | 2017-08-17 13:35 | HHI.CCPN ---
Subjective Remarks/Hospital Course This is a 62-year-old female with a history of developmental delay and recurrent urinary tract infections who presents with new onset right-sided abdominal and flank pain. Per the [facility] service admission note this is been going on for approximately 4 weeks. Patient has a history of developmental delay and is difficult to get a complete history from her, no analysis with her on my evaluation. On my evaluation she endorses flank pain radiating around to her chest. She endorses subjective chills. Denies recent fevers to me. Also endorses nausea, vomiting. In the emergency department she was found to have significant erythema, rubor, dolor, and edema from approximately the fifth intercostal space down to the eighth or ninth intercostal space wrapping around from the midline in the back all the way around to just medial to the breast. CT scan of the abdomen and pelvis confirms significant subcutaneous edema, but this area of edema appears to be contained by intact fascial planes, particularly in the midline of the back. Laboratory evidence is significant for a white blood cell count of 27k, creatinine is 3.58, potassium 5.4, bicarb of 17.9, anion gap elevated at 15, BUN of 64, an initial lactate of 5.1. In the emergency department she received 3 L of crystalloid IV fluids. Despite this she is hypotensive with a mean arterial pressure of 51. Critical care medicine is consulted to evaluate manage her presumed septic shock secondary to severe cellulitis of the trunk. I have given her an additional liter of crystalloid and then placed central venous access, see separate procedure note for details. In addition her lactate is starting to clear and is now 2.9 with an more currently pending, however it is not clearing fast enough and she remains oliguric. I placed a Scales for accurate hourly I's and O's. The remainder of the review systems for the patient is negative except documented in the HPI, although this is severely limited by her baseline developmental delay. Subjective 07/23: Patient remains on vasopressors, noted metabolic acidosis, bicarbonate level of 15. Sodium bicarbonate infusion initiated. 07/24 Patient was intubated early this morning now on Vasopressin and Neosyn 300 mics in addition patient is on Amio and Bicarb drips. WBC increased 31. CT abd/pelvis showed right sided cellulites and developing myositis. 07/25 Patient went to OR yesterday s/p wide excisional debridement of soft tissue infection with VAC placement for necrotizing soft tissue infection of abdomen, right hip area right torso area measuring approximately 32 x 18 inches x 2 inches deep. She remains on Vasopressin 0.04 and Neosyn down to 120 mics. On Amio drip. 07/26 No events overnight. Off all pressors, WBC is trending down. On Amio drip. 07/27 Patient remains intubated for return to OR today and wound vac exchange. 07/28 Patient s/p excisional debridement with vac change yesterday intubated and sedated with Fentanyl infusion. 07/29 Patient remains intubated and sedated with Fentanyl and Versed drips. Afebrile. 07/30 No events overnight. Patient remains sedated with Fentanyl drip and intubated. For OR today for further debridement and wound vac exchange. Afebrile. 07/31 Patient went to OR yesterday for vac exchange, Afebrile, WBC is trending down, Intubated and now sedated with Fentanyl and Versed 2mg/hr 08/01: Remains sedated, orally intubated on mechanical ventilation. Scheduled for OR today for vac exchange. 08/02: Remains intubated scheduled for OR again today. Antibiotics per ID. Slight increase in WBC count is 17.2 08/03: s/p Excisional debridement with VAC change yesterday by Dr. Dumont. Tolerating CPAP but not waking up or following commands. Dr. Dumont plans for further wound debridement and VAC change either tomorrow or Monday. Anticipating OR will leave patient intubated. WBC 19.9 today, will discuss with ID 08/04: Remains intubated, intermittently agitated on the vent. Or planned for tomorrow by Dr. Dumont. WBC count is slightly improved today 16.7 08/05: Patient is more critical today with worsening sepsis. T-max 102, WBC count up to 22.6. Hypotensive blood pressure 78/51. I have ordered 1 L normal saline bolus. Pancultured overnight. Zosyn started by Dr. Mcdonald. I will start micafungin also. Will inform ID. Dr. Dumont planning for OR today 08/06: Evaluated by night steam engineer for persistent worsening hypotension called to bedside to evaluate patient with worsening hypotension. Given 500 cc 5 % albumin 1 without improvement in hypotension. A right subclavian central line was placed and norepinephrine infusion was started for persistent septic shock. Currently map remains above 65, on Levophed at 4 mcg/min. WBC 16.1 slightly improved from yesterday. Hemoglobin has dropped to 7.2 approximately 2 g drop. Transfuse 1 unit of PRBC stat. T-max 100.7, urine culture growing GNR 08/07: Remains sedated, orally intubated on mechanical ventilation. Wound VAC in place. On Levophed 2 mics per minute for hypotension. 08/08: Sedated, orally intubated on mechanical ventilation. Wound VAC remains in place. Tolerating tube feeds. Discussed with Dr. Dumont who is planning to take patient to OR tomorrow for wound VAC change as well as tracheostomy. 08/09: OR today for wound VAC change and tracheostomy. Remains on Levophed at 1 mcg/min. If continued Levophed requirement, right subclavian central line heading towards the left subclavian need to be replaced 08/10: Patient went to OR today for wound vac change and tracheostomy. Had further wound debridement. Profoundly hypothermic. Temperature 92. Warming blanket applied. Send CBC. Discussed with ID. 08/11: Late entry note. Pt seen at 0830. Afebrile. No acute events overnight. Patient currently normothermic, WBC count downtrending. Palpable pulses B/L dorsalis pedis and post tibialis. 08/12 : No acute events. Possible plan for wound VAC replacement tomorrow. Overnight the wound VAC was dislodged Dr. Floyd follow in for wound VAC adjustment. Patient off sedation awake alert mouthing words appropriately. 08/13: doing well. conversant. remains on vent: when PSV support weaned, becomes tachypneic. going to OR tomorrow for washout. afebrile. denies complaints. 08/14: no complaints. scales removed yesterday but has not voided. will start cardura to help with bladder control. to OR today for washout. 08/15: Awake alert on the vent. Will attempt CPAP, and T-piece if tolerated. Plan for OR for washout VAC change again tomorrow 08/16: Continues to improve very slowly. still needing cpap and weaning support as tolerated. needs to be OOB to chair. 08/17: Currently on T-piece breathing comfortably. Dr. Dumont planning on VAC change today again. Objective Vital Signs Date Time Temp Pulse Resp B/P (MAP) Pulse Ox O2 Delivery O2 Flow Rate FiO2 08/17/17 10:00 96 T-piece 40 08/17/17 10:00 74 11 117/59 (78) 08/17/17 08:00 98.3 08/16/17 20:03 5.00 Intake and Output 08/17/17 08/17/17 08/18/17 08:00 16:00 00:00 Intake Total 536 ml Output Total 1150 ml Balance -614 ml Result Diagram: 08/16/17 0320 08/16/17 0320 Other Results Microbiology Date/Time Source Procedure Growth Status 08/15/17 00:45 Urine Catheterized Urine Urine Culture - Final NO GROWTH IN 48 HOURS. Complete Imaging Last Impressions Chest X-Ray 07/30/17 0000 Signed Impressions: Service Date/Time: Sunday, July 30, 2017 08:14 - CONCLUSION: Underinflation with atelectasis at the lung bases. Otherwise, no acute finding is seen given the technique. Derrick García MD Brain MRI 07/28/17 0000 Signed Impressions: Service Date/Time: Friday, July 28, 2017 14:38 - CONCLUSION: 1. Unremarkable MRI examination the brain. 2. No acute abnormality or interval change. Bbo Daly MD Chest CT 07/24/17 0000 Signed Impressions: Service Date/Time: Monday, July 24, 2017 05:36 - CONCLUSION: 1. Stranding in the subcutaneous tissues about the right flank with fluid adjacent to the latissimus dorsi. Stranding extends up into the right breast. Findings could represent developing cellulitis. 2. In addition, there is now a small right-sided effusion with bilateral dependent atelectatic changes. Jerome Brady MD Abdomen/Pelvis CT 07/24/17 0000 Signed Impressions: Service Date/Time: Monday, July 24, 2017 05:36 - CONCLUSION: 1. CT findings concerning for a right sided cellulitis and developing myositis. There is some asymmetric prominence of the latissimus dorsi muscle on the right. Unorganized fluid in the deep subcutaneous tissues adjacent to the muscle belly. No drainable fluid collection, however. 2. Developing dependent areas of consolidation, right greater than left with an associated small right-sided effusion. Jerome Brady MD Head CT 07/22/17 1253 Signed Impressions: Service Date/Time: Saturday, July 22, 2017 13:26 - CONCLUSION: No acute disease. Derrick Henry MD Objective Remarks GENERAL: Elderly female, lying in bed, trached now on TP HEENT: Normocephalic. Atraumatic. Pupils equal, round, reactive, conjugate. NGT in place NECK: Trachea is midline. There is no JVD. Tracheostomy in place no bleeding CHEST: Equal chest rise. On TP CARDIOVASCULAR: RRR, nl ABDOMEN: Soft, nontender, nondistended, wound Vac in place on the right flank covering extensive areas of debridement. MUSCULOSKELETAL: Gangrene of 2-4 toes on right. NEUROLOGICAL: awake, alert, follows commands. no focal deficits. Date of Insertion: Jul 22, 2017 A/P Assessment and Plan Active problems: Chronic hypoxic and hypercarbic respiratory failure Right flank necrotizing fasciitis Pneumonia (HCAP) Septic shock, resolved. Hypothermia- resolved Acute metabolic encephalopathy- resolved Anemia requiring transfusion Acute kidney injury- resolved Elevated CK- resolved Thrombocytopenia - resolved Hypothyroidism Acute protein calorie malnutrition- moderate chronic pain secondary to post-surgical debridement and wound Urinary Retention Plan: Neurologic: Neuro checks per ICU protocol. tramadol, oxycodone, morphine prn pain 07/22 CT brain: No acute disease. MRI brain 07/28 Unremarkable Neuro exam much improved and patient following commands Respiratory: Continue with vent support keep sats >92% Daily TP if tolerated status post tracheostomy by Dr. Dumont in the OR 08/10/17. Bronchodilators, ICU vent bundle. Cardiovascular: Monitor HR and BP keep MAP>65mmHg. Echo showed EF 50-55% diltiazem 60mg po q6h Renal: Monitor renal function, I/O's, Avoid nephrotoxins Renal- . Free water to 200ml Q8, monitor sodium level, was 130 08/16. Will DC free water Diuril 250mg po. Cardura for urinary retention FEN/GI: On Pepcid 10mg BID for GI prophylaxis Tube feeds- Glucerna 1.5 with goal rate 45ml/hr ID: Urine culture and sputum culture from 08/04 and 08/05/2017 growing E. coli and Pseudomonas pansensitive Continue with abx per ID recommendations 07/24, 07/27 Wound cx :MRSA 07/24 BC :NGTD 07/23: urine cx: No growth 07/22 BC: NGTD 08/04 UC: GNR Path report: Abdominal soft tissue excision: Skin and subcutaneous adipose tissue with acute cellulitis and multifocal abscess formation 07/30 Wound vac exchange 07/27 s/p excisional debridement with vac change of torso and abdomen 07/24 s/p wide excisional debridement of soft tissue infection with VAC placement for necrotizing soft tissue infection of abdomen, right hip area right torso area measuring approximately 32 x 18 inches x 2 inches deep. Surgery -Dr. Dumont. Plan for debridement vac change 08/17. Heme: Monitor CBC, transfuse PRBC as needed for goal hgb > 7. Endocrine: Levothyroxine 112 mcg/day on hold. TSH:0.08 on 07/24 Glucose monitoring per ICU protocol. -- Continue SSI medium scale for glycemic control MSK: Dry gangrene setting in of toes on right- Likely pressors induced ischemia of toes. Seen by vascular surg- no additional vascular work up needed given palpable pulses, Prophylaxis: GI Prophylaxis Famotidine DVT Prophylaxis SCDs. Chemical DVT prophylaxis when cleared by Dr. Dumont-holding due to anemia requiring transfusion Lines: Central line placed on 07/22 DCd 08/05/17. Peripheral IVs 2, may require scales catheter for urinary retention. OVERALL IMPRESSION: very deconditioned. weak. chronic respiratory failure and likely critical illness myopathy. needs long-term acute care facility for weaning. Tracey Meza MD August 17, 2017 13:35
--- NOTE | 2017-08-17 16:07 | HHI.PR ---
Immediate Post Op Note Procedure Date: August 17, 2017 Pre Op Diagnosis: necrotizing soft tissue infection of right flank, right hip, back Post Op Diagnosis: same Surgeon: Tip Dumont MD Railcar Switchman(s): jv Procedure: vac change with excisional debridement with partial close elevation of skin flap 8cm x 6cm final defect size 46 cm x 26cm Findings: good granulation scant residual exudate Complications: none Specimen(s) removed: none Estimated blood loss: 5cc Anesthesia: General Drains: Hemovac Patient to: PACU Patient Condition: Good Tip Dumont MD August 17, 2017 16:07
[2017-08-17] MEDS ORDERED: DO NOT ADM ANY ANTICOAGULANT DRUGS PRN (16:11)
--- NOTE | 2017-08-17 16:38 | MP ---
cc: Tip Dumont MD, Lars S MD DATE OF OPERATION: 08/17/2017 PREOPERATIVE DIAGNOSIS: Necrotizing soft tissue infection of right flank, back, hip, and abdomen. POSTOPERATIVE DIAGNOSIS: Necrotizing soft tissue infection of right flank, back, hip, and abdomen. PROCEDURES PERFORMED: 1. Change of VAC dressing. 2. Minimal excisional debridement of soft tissues and purulent material. 3. Partial closure with skin flap elevation rotation of 8 x 6 cm. ANESTHESIA: GETA. IV FLUIDS: See anesthesia sheet. ESTIMATED BLOOD LOSS: 5 mL DRAINS: VAC placement. COMPLICATIONS: None. SPECIMENS: None. FINDINGS: Good hemostasis, good granulation tissue, minimal fibrinous exudate. INDICATIONS FOR PROCEDURE: The patient is a 62-year-old female who presented with acute necrotizing soft tissue infection requiring extensive wide debridement. The patient has undergone multiple VAC changes and debridements of tissue requiring close monitoring in ICU care and IV antibiotics. The patient has slowly been improving with improvement in the infection sepsis and doing better. She is here for a VAC change and possible partial closure. DETAILS OF PROCEDURE: The patient was taken to the operating suite, placed in a lateral decubitus position. She was prepped and draped in the usual sterile fashion after induction of anesthesia and then the tracheostomy. Brief timeout was undertaken stating correct patient, procedure, and surgical site. We were all in agreement with this. The VAC dressing was removed. [place] were removed. The VAC wound site was noted to have good granulation. There was minimal purulence and minimal necrotic tissue that was the subcutaneous soft tissue that underwent excisional debridement of this to clean healthy tissue. Given the improvements in tissue, attempts to decrease the overall wound size were done. A medial flap was raised approximately 8 x 6 cm and mobilization of peripheral tissues around both medial and lateral areas were done in order to accomplish a less overall wound perimeter. Once this was done, hemostasis was done, irrigation was done with normal saline to the open wound. The VAC was obtained and stapled to the periphery of the skin edges and cut to size and cut actually to a smaller previous size. The plastic drape was then placed. The track pad was placed. Wound VAC was placed to suction without evidence of leaking. The patient tolerated the procedure well and there were no intraoperative complications. All lap and instrument counts were correct and the end of the procedure. The patient remained with tracheostomy and sent to the ICU. MD ABDULAZIZ Kowalski , 04:12 PM , 04:37 PM
[2017-08-17] MEDS: DAPTOMYCIN IV SCH (18:00)
[2017-08-17] MEDS: SODIUM CHLORIDE 0.9% IV SCH (18:00)
[2017-08-17] MEDS: POTASSIUM CHLORIDE 25 MEQ EFFERVESCENT TAB PO PRN (21:47)
[2017-08-18] VITALS (17 sets, daily range): BP systolic 100–120; BP diastolic 55–64; PULSE 72–89; RESP 12–18; TEMP 98.1–99.2; O2SAT 93–100
[2017-08-18] MEDS: DILTIAZEM HCL 60 MG TAB PO SCH ×4 (00:31→16:59)
[2017-08-18] MEDS: METOCLOPRAMIDE HCL 10 MG/2 ML VIAL IV SCH ×3 (05:49→20:57)
--- NOTE | 2017-08-18 07:38 | HHI.CCPN ---
Subjective Remarks/Hospital Course This is a 62-year-old female with a history of developmental delay and recurrent urinary tract infections who presents with new onset right-sided abdominal and flank pain. Per the [facility] service admission note this is been going on for approximately 4 weeks. Patient has a history of developmental delay and is difficult to get a complete history from her, no analysis with her on my evaluation. On my evaluation she endorses flank pain radiating around to her chest. She endorses subjective chills. Denies recent fevers to me. Also endorses nausea, vomiting. In the emergency department she was found to have significant erythema, rubor, dolor, and edema from approximately the fifth intercostal space down to the eighth or ninth intercostal space wrapping around from the midline in the back all the way around to just medial to the breast. CT scan of the abdomen and pelvis confirms significant subcutaneous edema, but this area of edema appears to be contained by intact fascial planes, particularly in the midline of the back. Laboratory evidence is significant for a white blood cell count of 27k, creatinine is 3.58, potassium 5.4, bicarb of 17.9, anion gap elevated at 15, BUN of 64, an initial lactate of 5.1. In the emergency department she received 3 L of crystalloid IV fluids. Despite this she is hypotensive with a mean arterial pressure of 51. Critical care medicine is consulted to evaluate manage her presumed septic shock secondary to severe cellulitis of the trunk. I have given her an additional liter of crystalloid and then placed central venous access, see separate procedure note for details. In addition her lactate is starting to clear and is now 2.9 with an more currently pending, however it is not clearing fast enough and she remains oliguric. I placed a Scales for accurate hourly I's and O's. The remainder of the review systems for the patient is negative except documented in the HPI, although this is severely limited by her baseline developmental delay. Subjective 07/23: Patient remains on vasopressors, noted metabolic acidosis, bicarbonate level of 15. Sodium bicarbonate infusion initiated. 07/24 Patient was intubated early this morning now on Vasopressin and Neosyn 300 mics in addition patient is on Amio and Bicarb drips. WBC increased 31. CT abd/pelvis showed right sided cellulites and developing myositis. 07/25 Patient went to OR yesterday s/p wide excisional debridement of soft tissue infection with VAC placement for necrotizing soft tissue infection of abdomen, right hip area right torso area measuring approximately 32 x 18 inches x 2 inches deep. She remains on Vasopressin 0.04 and Neosyn down to 120 mics. On Amio drip. 07/26 No events overnight. Off all pressors, WBC is trending down. On Amio drip. 07/27 Patient remains intubated for return to OR today and wound vac exchange. 07/28 Patient s/p excisional debridement with vac change yesterday intubated and sedated with Fentanyl infusion. 07/29 Patient remains intubated and sedated with Fentanyl and Versed drips. Afebrile. 07/30 No events overnight. Patient remains sedated with Fentanyl drip and intubated. For OR today for further debridement and wound vac exchange. Afebrile. 07/31 Patient went to OR yesterday for vac exchange, Afebrile, WBC is trending down, Intubated and now sedated with Fentanyl and Versed 2mg/hr 08/01: Remains sedated, orally intubated on mechanical ventilation. Scheduled for OR today for vac exchange. 08/02: Remains intubated scheduled for OR again today. Antibiotics per ID. Slight increase in WBC count is 17.2 08/03: s/p Excisional debridement with VAC change yesterday by Dr. Dumont. Tolerating CPAP but not waking up or following commands. Dr. Dumont plans for further wound debridement and VAC change either tomorrow or Monday. Anticipating OR will leave patient intubated. WBC 19.9 today, will discuss with ID 08/04: Remains intubated, intermittently agitated on the vent. Or planned for tomorrow by Dr. Dumont. WBC count is slightly improved today 16.7 08/05: Patient is more critical today with worsening sepsis. T-max 102, WBC count up to 22.6. Hypotensive blood pressure 78/51. I have ordered 1 L normal saline bolus. Pancultured overnight. Zosyn started by Dr. Mcdonald. I will start micafungin also. Will inform ID. Dr. Dumont planning for OR today 08/06: Evaluated by night regulatory assistant for persistent worsening hypotension called to bedside to evaluate patient with worsening hypotension. Given 500 cc 5 % albumin 1 without improvement in hypotension. A right subclavian central line was placed and norepinephrine infusion was started for persistent septic shock. Currently map remains above 65, on Levophed at 4 mcg/min. WBC 16.1 slightly improved from yesterday. Hemoglobin has dropped to 7.2 approximately 2 g drop. Transfuse 1 unit of PRBC stat. T-max 100.7, urine culture growing GNR 08/07: Remains sedated, orally intubated on mechanical ventilation. Wound VAC in place. On Levophed 2 mics per minute for hypotension. 08/08: Sedated, orally intubated on mechanical ventilation. Wound VAC remains in place. Tolerating tube feeds. Discussed with Dr. Dumont who is planning to take patient to OR tomorrow for wound VAC change as well as tracheostomy. 08/09: OR today for wound VAC change and tracheostomy. Remains on Levophed at 1 mcg/min. If continued Levophed requirement, right subclavian central line heading towards the left subclavian need to be replaced 08/10: Patient went to OR today for wound vac change and tracheostomy. Had further wound debridement. Profoundly hypothermic. Temperature 92. Warming blanket applied. Send CBC. Discussed with ID. 08/11: Late entry note. Pt seen at 0830. Afebrile. No acute events overnight. Patient currently normothermic, WBC count downtrending. Palpable pulses B/L dorsalis pedis and post tibialis. 08/12 : No acute events. Possible plan for wound VAC replacement tomorrow. Overnight the wound VAC was dislodged Dr. Floyd follow in for wound VAC adjustment. Patient off sedation awake alert mouthing words appropriately. 08/13: doing well. conversant. remains on vent: when PSV support weaned, becomes tachypneic. going to OR tomorrow for washout. afebrile. denies complaints. 08/14: no complaints. scales removed yesterday but has not voided. will start cardura to help with bladder control. to OR today for washout. 08/15: Awake alert on the vent. Will attempt CPAP, and T-piece if tolerated. Plan for OR for washout VAC change again tomorrow 08/16: Continues to improve very slowly. still needing cpap and weaning support as tolerated. needs to be OOB to chair. 08/17: Currently on T-piece breathing comfortably. Dr. Dumont planning on VAC change today again. 08/18: no acute events. required ventilatory support overnight. will again attempt t-piece today. needs aggressive PT/OT. Objective Vital Signs Date Time Temp Pulse Resp B/P (MAP) Pulse Ox O2 Delivery O2 Flow Rate FiO2 08/18/17 06:00 85 08/18/17 04:00 98.2 18 102/56 (71) 98 08/17/17 19:09 T-piece 8.00 40 Intake and Output 08/18/17 08/18/17 08/18/17 07:59 15:59 23:59 Intake Total 120 ml Output Total 925 ml Balance -805 ml Result Diagram: 08/16/17 0320 08/16/17 0320 Imaging Last Impressions Chest X-Ray 07/30/17 0000 Signed Impressions: Service Date/Time: Sunday, July 30, 2017 08:14 - CONCLUSION: Underinflation with atelectasis at the lung bases. Otherwise, no acute finding is seen given the technique. Derrick García MD Brain MRI 07/28/17 0000 Signed Impressions: Service Date/Time: Friday, July 28, 2017 14:38 - CONCLUSION: 1. Unremarkable MRI examination the brain. 2. No acute abnormality or interval change. Bob Daly MD Chest CT 07/24/17 0000 Signed Impressions: Service Date/Time: Monday, July 24, 2017 05:36 - CONCLUSION: 1. Stranding in the subcutaneous tissues about the right flank with fluid adjacent to the latissimus dorsi. Stranding extends up into the right breast. Findings could represent developing cellulitis. 2. In addition, there is now a small right-sided effusion with bilateral dependent atelectatic changes. Jerome Brady MD Abdomen/Pelvis CT 07/24/17 0000 Signed Impressions: Service Date/Time: Monday, July 24, 2017 05:36 - CONCLUSION: 1. CT findings concerning for a right sided cellulitis and developing myositis. There is some asymmetric prominence of the latissimus dorsi muscle on the right. Unorganized fluid in the deep subcutaneous tissues adjacent to the muscle belly. No drainable fluid collection, however. 2. Developing dependent areas of consolidation, right greater than left with an associated small right-sided effusion. Jeorme Brady MD Head CT 07/22/17 1253 Signed Impressions: Service Date/Time: Saturday, July 22, 2017 13:26 - CONCLUSION: No acute disease. Derrick Henry MD Objective Remarks GENERAL: Elderly female, lying in bed, trached now on TP HEENT: Normocephalic. Atraumatic. Pupils equal, round, reactive, conjugate. NGT in place NECK: Trachea is midline. There is no JVD. Tracheostomy in place no bleeding CHEST: Equal chest rise. On TP CARDIOVASCULAR: RRR, nl ABDOMEN: Soft, nontender, nondistended, wound Vac in place on the right flank covering extensive areas of debridement. MUSCULOSKELETAL: Gangrene of 2-4 toes on right. NEUROLOGICAL: awake, alert, follows commands. no focal deficits. Date of Insertion: Jul 22, 2017 A/P Assessment and Plan Active problems: Septic shock, resolved. Hypothermia- resolved Acute metabolic encephalopathy- resolved Acute kidney injury- resolved Elevated CK- resolved Thrombocytopenia - resolved Chronic hypoxic and hypercarbic respiratory failure Right flank necrotizing fasciitis Pneumonia (HCAP) Anemia requiring transfusion Hypothyroidism Acute protein calorie malnutrition- severe chronic pain secondary to post-surgical debridement and wound Urinary Retention Plan: Neurologic: Neuro checks per ICU protocol. tramadol, oxycodone, morphine prn pain 07/22 CT brain: No acute disease. MRI brain 07/28 Unremarkable Neuro exam much improved and patient following commands Respiratory: Continue with vent support keep sats >92% Daily TP if tolerated. 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 status post tracheostomy by Dr. Dumont in the OR 08/10/17. Bronchodilators, ICU vent bundle. Cardiovascular: Monitor HR and BP keep MAP>65mmHg. Echo showed EF 50-55% diltiazem 60mg po q6h Renal: strict i/o's, Avoid nephrotoxins Renal- . Mary for urinary retention FEN/GI: On Pepcid 10mg BID for GI prophylaxis Tube feeds- Glucerna 1.5 with goal rate 45ml/hr ID: Urine culture and sputum culture from 08/04 and 08/05/2017 growing E. coli and Pseudomonas pansensitive Continue with abx per ID recommendations 07/24, 07/27 Wound cx :MRSA 07/24 BC :NGTD 07/23: urine cx: No growth 07/22 BC: NGTD 08/04 UC: GNR Path report: Abdominal soft tissue excision: Skin and subcutaneous adipose tissue with acute cellulitis and multifocal abscess formation 07/30 Wound vac exchange 07/27 s/p excisional debridement with vac change of torso and abdomen 07/24 s/p wide excisional debridement of soft tissue infection with VAC placement for necrotizing soft tissue infection of abdomen, right hip area right torso area measuring approximately 32 x 18 inches x 2 inches deep. Surgery -Dr. Dumont. Heme: Monitor CBC, transfuse PRBC as needed for goal hgb > 7. Endocrine: Levothyroxine 112 mcg/day on hold. TSH:0.08 on 07/24 Glucose monitoring per ICU protocol. -- Continue SSI medium scale for glycemic control MSK: Dry gangrene setting in of toes on right- Likely pressors induced ischemia of toes. Seen by vascular surg- no additional vascular work up needed given palpable pulses, Prophylaxis: GI Prophylaxis Famotidine DVT Prophylaxis SCDs. Chemical DVT prophylaxis when cleared by Dr. Dumont-holding due to anemia requiring transfusion Lines: Central line placed on 07/22 DCd 08/05/17. Peripheral IVs 2, may require scales catheter for urinary retention. OVERALL IMPRESSION: very deconditioned. weak. chronic respiratory failure and likely critical illness myopathy. needs long-term acute care facility for weaning. Waqas Perdomo MD August 18, 2017 07:38
[2017-08-18] MEDS: oxyCODONE HCL ORAL CONC 5 MG/0.25 ML SYRINGE PO PRN ×2 (09:04→16:59)
[2017-08-18] MEDS: MORPHINE SULFATE 4 MG/ML INJ IV PUSH PRN ×2 (09:04→16:59)
[2017-08-18] MEDS: MULTIVITAMIN-OPHTHALMIC 1 TAB PO SCH (09:04)
[2017-08-18] MEDS: CALCIUM/VITAMIN D 250 MG/125 U TAB PO SCH (09:04)
[2017-08-18] MEDS: DIMETHICONE/OXYBENZONE/PADMIATE LIP BALM 4.25 GM TOPICAL PRN (09:05)
[2017-08-18] MEDS: SODIUM CHLORIDE 0.9% FLUSH 10 ML FLUSH IV FLUSH SCH ×2 (09:05→21:00)
[2017-08-18] MEDS: FAMOTIDINE 20 MG TAB PO SCH ×2 (09:05→20:57)
[2017-08-18] MEDS: CHLOROTHIAZIDE 250 MG TAB PO SCH (09:05)
[2017-08-18] MEDS: DOCUSATE SODIUM 50 MG/SENNA 8.6 MG TAB PO SCH ×2 (09:05→20:57)
[2017-08-18] MEDS: DOXAZOSIN MESYLATE 2 MG TAB PO SCH (09:05)
[2017-08-18] MEDS: NYSTATIN 100,000 U/GM PWD 15 GM BTL TOPICAL SCH ×2 (09:05→20:57)
[2017-08-18] MEDS: CHLORHEXIDINE 0.12% (ORAL KIT) 15 ML CUP MT SCH ×2 (09:09→20:00)
[2017-08-18 11:19] LABS: AUTOMATED NEUTROPHIL # 8.5 TH/MM3 (1.8-7.7); BASOPHIL # 0.2 TH/MM3 (0-0.2); BASOPHIL % 1.4 % (0.0-2.0); EOSINOPHIL # 0.2 TH/MM3 (0-0.4); EOSINOPHIL % 1.9 % (0.0-4.0); HEMATOCRIT 30.8 % (35.0-46.0); HEMOGLOBIN 9.9 GM/DL (11.6-15.3); LYMPH % 21.2 % (9.0-44.0); LYMPHOCYTE # 2.7 TH/MM3 (1.0-4.8); MEAN CELL VOLUME 83.3 FL (80.0-100.0); MEAN CORPUSCULAR HEMOGLOBIN 26.8 PG (27.0-34.0); MEAN CORPUSCULAR HGB CONC 32.2 % (32.0-36.0); MEAN PLATELET VOLUME 5.5 FL (7.0-11.0); MONO % 9.1 % (0.0-8.0); MONOCYTE # 1.2 TH/MM3 (0-0.9); NEUT % 66.4 % (16.0-70.0); PLATELET COUNT 584 TH/MM3 (150-450); RED CELL DISTRIBUTION WIDTH 16.1 % (11.6-17.2); WHITE BLOOD COUNT 12.8 TH/MM3 (4.0-11.0)
[2017-08-18 11:49] LABS: ALBUMIN 1.8 GM/DL (3.4-5.0); ALKALINE PHOSPHATASE 91 U/L (45-117); ALT (GPT) 50 U/L (10-53); AST (GOT) 37 U/L (15-37); BICARBONATE 24.3 MEQ/L (21.0-32.0); BLOOD UREA NITROGEN 6 MG/DL (7-18); CALCIUM 9.1 MG/DL (8.5-10.1); CHLORIDE 96 MEQ/L (98-107); CREATININE 0.65 MG/DL (0.50-1.00); GLOMERULAR FILTRATION RATE 92 ML/MIN (>89); GLUCOSE,RANDOM 70 MG/DL (74-106); SODIUM (NA) 131 MEQ/L (136-145); TOTAL BILIRUBIN ADULT 0.4 MG/DL (0.2-1.0); TOTAL PROTEIN 5.5 GM/DL (6.4-8.2)
--- NOTE | 2017-08-18 15:55 | HHI.PR ---
Subjective Subjective Notes no acute issues, t piece Objective Vitals/I&O Vital Signs Date Time Temp Pulse Resp B/P (MAP) Pulse Ox O2 Delivery O2 Flow Rate FiO2 08/18/17 14:00 72 14 108/58 (75) 96 08/18/17 08:10 T-piece 5.00 30 08/18/17 08:00 99.2 Labs Laboratory Tests Test 08/18/17 10:19 White Blood Count 12.8 Red Blood Count 3.70 Hemoglobin 9.9 Hematocrit 30.8 Mean Corpuscular Volume 83.3 Mean Corpuscular Hemoglobin 26.8 Mean Corpuscular Hemoglobin Concent 32.2 Red Cell Distribution Width 16.1 Platelet Count 584 Mean Platelet Volume 5.5 Neutrophils (%) (Auto) 66.4 Lymphocytes (%) (Auto) 21.2 Monocytes (%) (Auto) 9.1 Eosinophils (%) (Auto) 1.9 Basophils (%) (Auto) 1.4 Neutrophils # (Auto) 8.5 Lymphocytes # (Auto) 2.7 Monocytes # (Auto) 1.2 Eosinophils # (Auto) 0.2 Basophils # (Auto) 0.2 CBC Comment DIFF FINAL Differential Comment Blood Urea Nitrogen 6 Creatinine 0.65 Random Glucose 70 Total Protein 5.5 Albumin 1.8 Calcium Level 9.1 Alkaline Phosphatase 91 Aspartate Amino Transf (AST/SGOT) 37 Alanine Aminotransferase (ALT/SGPT) 50 Total Bilirubin 0.4 Sodium Level 131 Potassium Level 4.6 Chloride Level 96 Carbon Dioxide Level 24.3 Anion Gap 11 Estimat Glomerular Filtration Rate 92 Date/Time Source Procedure Growth Status 08/06/17 00:43 Blood Peripheral Aerobic Blood Culture - Final NO GROWTH IN 5 DAYS Complete 08/06/17 00:43 Blood Peripheral Anaerobic Blood Culture - Final QNS - SEE AEROBE REPORT Complete 08/05/17 05:40 Sputum Endotracheal Gram Stain - Final Complete 08/05/17 05:40 Sputum Culture - Final Pseudomonas Aeruginosa Klebsiella Pneumoniae Complete 08/15/17 00:45 Urine Catheterized Urine Urine Culture - Final NO GROWTH IN 48 HOURS. Complete 07/27/17 15:30 Wound Other Fungal Smear - Final NO FUNGAL ELEMENTS SEEN. Resulted 5/3/18 15:30 Wound Other Fungal Culture - Preliminary NO GROWTH IN 3 WEEKS Resulted Abdomen: Other (vac good seal) A/P Assessment and Plan Soft tissues necrotizing infection s/p incision and wide excisional debridement and multiple vac changes PLAN ok for nursing reinforcement as needed, ok for wall sxn if malfxn. call md if further issues continue abx vent per isc, s/p trach close monitoring plastics for skin grafting select planning when bed available from surgery stand point vac change prn likely monday or monday Tip Dumont MD August 18, 2017 15:55
[2017-08-18] MEDS: DAPTOMYCIN IV SCH (16:59)
[2017-08-18] MEDS: SODIUM CHLORIDE 0.9% IV SCH (16:59)
--- NOTE | 2017-08-18 17:43 | HHI.IDPN ---
Subjective Subjective Remarks Most of the history was obtained by review of medical records. Patient shortly being wheeled out to the operating room for surgical exploration of the site of necrotizing fasciitis Septic shock. Ms. Eldridge is a 62-year-old female who reportedly has developmental delays per chart review. Patient presented to the emergency department via EMS for evaluation of right-sided abdominal, flank and back erythema swelling and pain. Patient's care provider and power of divorce attorney listed on the chart is Mr. Felipe Nagy who can be contacted at [phone]. Patient had earlier reported to others that she was feeling unwell for the past 4 weeks. Patient reported increase in her migraine symptoms. Patient also reported continuous, nonradiating sharps times burning pain over the right upper quadrant that is expanded to include her right flank and back. She denies any trauma to these areas. Patient reported to others prior to being intubated that she had nausea and vomiting associated with decreased appetite. Patient also had reported to others that she was dizzy and lightheaded. Per review of records it appears that patient has had multiple falls as well as has had urinary incontinence at baseline with decreased urine output over the last few days. Patient also reported subjective symptoms such as burning with urination. Per EMS, patient was found to be hypotensive. Systolic pressure was recorded in the 70s. She received fluid in transit with minimal improvement. In the emergency department she was found to have significant erythema,pain and edema from approximately the fifth intercostal space down to the eighth or ninth intercostal space wrapping around from the midline in the back all the way around to just medial to the breast. CT scan of the abdomen and pelvis confirms significant subcutaneous edema, but this area of edema appears to be contained by intact fascial planes, particularly in the midline of the back. Laboratory evidence is significant for a white blood cell count of 27k, creatinine is 3.58, potassium 5.4, bicarb of 17.9, anion gap elevated at 15, BUN of 64, an initial lactate of 5.1. In the emergency department she received 3 L of crystalloid IV fluids. Critical care medicine is consulted to evaluate manage her presumed septic shock secondary to severe cellulitis of the trunk. Overnight critical care medicine was consulted for worsening sepsis and septic shock. Patient had to be intubated and upon evaluation was found to have evidence suggestive of necrotizing fasciitis involving similar areas as reported on the emergency room but had progressed beyond the line of demarcation. Patient was noted to have significant blisters and blackening of the areas. Critical care medicine change the regimen to Zosyn IV, vancomycin IV and added clindamycin IV and placed a surgical consult. Patient was evaluated by Dr. Thor Dumont of surgery and patient is being wheeled to the operating room shortly. At the time of my evaluation patient is in the ICU currently on high-dose Levophed as well as vasopressin with slight decrease in Levophed requirement after addition of clindamycin IV. Urine output is low. No diarrhea. No diffuse rash or skin changes other than as described. Notes reviewed Discussed with RN Afebrile BP good Trach site ok. Off Vent. No diarrhea No rash Wound vac in place. Antibiotics Dapto IV Lines Line sites with no e.o infection Past Medical History Anxiety Depression Developmental delays - mental handicap Headaches/migraines Hypothyroidism GERD Chest pain Hx of UTIs Renal insufficiency Bladder incontinence Chronic back pain Thyroid surgery EGD - 08/30/16 Cholecystectomy - 03/04/15 D&C Hysterectomy Colonoscopy - 07/30/16 and 08/11/15 Allergies: Coded Allergies: No Known Allergies (Verified Allergy, Unknown, 07/22/17) Objective . Vital Signs Date Time Temp Pulse Resp B/P (MAP) Pulse Ox O2 Delivery O2 Flow Rate FiO2 08/18/17 16:00 89 08/18/17 16:00 89 15 120/64 (82) 100 08/18/17 14:00 72 14 108/58 (75) 96 08/18/17 14:00 72 08/18/17 13:00 79 14 113/56 (75) 100 08/18/17 13:00 79 08/18/17 12:00 80 14 108/58 (75) 100 08/18/17 12:00 80 08/18/17 11:00 79 17 116/59 (78) 100 08/18/17 11:00 79 08/18/17 10:00 79 08/18/17 10:00 79 16 104/56 (72) 93 08/18/17 09:00 83 17 103/58 (73) 100 08/18/17 09:00 83 08/18/17 08:10 100 T-piece 5.00 30 08/18/17 08:00 79 08/18/17 08:00 99.2 08/18/17 08:00 79 16 112/59 (76) 100 08/18/17 07:00 98 T-Piece 8.00 40 08/18/17 06:00 85 08/18/17 04:00 98.2 79 18 102/56 (71) 98 08/18/17 04:00 79 08/18/17 02:00 76 08/18/17 00:00 98.1 87 16 115/61 (79) 100 08/18/17 00:00 87 08/17/17 22:00 86 08/17/17 20:00 80 08/17/17 20:00 98.3 80 17 105/55 (72) 99 08/17/17 19:09 100 T-piece 8.00 40 08/17/17 19:00 100 T-Piece 08/17/17 18:05 84 08/17/17 18:05 84 12 108/58 (75) 98 08/17/17 18:00 77 08/17/17 18:00 98.0 77 16 107/58 (74) 100 08/18/17 08/18/17 08/19/17 15:00 23:00 07:00 Bladder Scan Volume Amount 0 ml 0 ml 0 ml . Laboratory Tests Test 08/18/17 10:19 White Blood Count 12.8 TH/MM3 Red Blood Count 3.70 MIL/MM3 Hemoglobin 9.9 GM/DL Hematocrit 30.8 % Mean Corpuscular Volume 83.3 FL Mean Corpuscular Hemoglobin 26.8 PG Mean Corpuscular Hemoglobin Concent 32.2 % Red Cell Distribution Width 16.1 % Platelet Count 584 TH/MM3 Mean Platelet Volume 5.5 FL Neutrophils (%) (Auto) 66.4 % Lymphocytes (%) (Auto) 21.2 % Monocytes (%) (Auto) 9.1 % Eosinophils (%) (Auto) 1.9 % Basophils (%) (Auto) 1.4 % Neutrophils # (Auto) 8.5 TH/MM3 Lymphocytes # (Auto) 2.7 TH/MM3 Monocytes # (Auto) 1.2 TH/MM3 Eosinophils # (Auto) 0.2 TH/MM3 Basophils # (Auto) 0.2 TH/MM3 CBC Comment DIFF FINAL Differential Comment Laboratory Tests Test 08/18/17 10:19 Blood Urea Nitrogen 6 MG/DL Creatinine 0.65 MG/DL Random Glucose 70 MG/DL Total Protein 5.5 GM/DL Albumin 1.8 GM/DL Calcium Level 9.1 MG/DL Alkaline Phosphatase 91 U/L Aspartate Amino Transf (AST/SGOT) 37 U/L Alanine Aminotransferase (ALT/SGPT) 50 U/L Total Bilirubin 0.4 MG/DL Sodium Level 131 MEQ/L Potassium Level 4.6 MEQ/L Chloride Level 96 MEQ/L Carbon Dioxide Level 24.3 MEQ/L Anion Gap 11 MEQ/L Estimat Glomerular Filtration Rate 92 ML/MIN Imaging Last Impressions Chest X-Ray 08/15/17 0600 Signed Impressions: Service Date/Time: Tuesday, August 15, 2017 02:15 - CONCLUSION: Stable appearance with no acute cardiopulmonary disease. Kvng Nuñez MD Brain MRI 07/28/17 0000 Signed Impressions: Service Date/Time: Friday, July 28, 2017 14:38 - CONCLUSION: 1. Unremarkable MRI examination the brain. 2. No acute abnormality or interval change. Bob Daly MD Chest CT 07/24/17 0000 Signed Impressions: Service Date/Time: Monday, July 24, 2017 05:36 - CONCLUSION: 1. Stranding in the subcutaneous tissues about the right flank with fluid adjacent to the latissimus dorsi. Stranding extends up into the right breast. Findings could represent developing cellulitis. 2. In addition, there is now a small right-sided effusion with bilateral dependent atelectatic changes. Jerome Brady MD Abdomen/Pelvis CT 07/24/17 0000 Signed Impressions: Service Date/Time: Monday, July 24, 2017 05:36 - CONCLUSION: 1. CT findings concerning for a right sided cellulitis and developing myositis. There is some asymmetric prominence of the latissimus dorsi muscle on the right. Unorganized fluid in the deep subcutaneous tissues adjacent to the muscle belly. No drainable fluid collection, however. 2. Developing dependent areas of consolidation, right greater than left with an associated small right-sided effusion. Jerome Brady MD Head CT 07/22/17 1253 Signed Impressions: Service Date/Time: Saturday, July 22, 2017 13:26 - CONCLUSION: No acute disease. Derrick Henry MD Physical Exam GENERAL: Awake and alert, on the vent, NAD. SKIN: No generalized rash. Dry, cool extremities HEAD: Atraumatic. Normocephalic. No temporal or scalp tenderness. EYES: Pupils equal round and reactive. Extraocular motions intact. No scleral icterus. No injection or drainage. ENT: Intubated. Moist mucosa NECK: Trachea midline. Supple, nontender, no meningeal signs. CARDIOVASCULAR: Heart sounds audible. No murmur appreciated. RESPIRATORY: Clear to auscultation. Breath sounds equal bilaterally. No wheezes , rales, or rhonchi. GASTROINTESTINAL: Abdomen soft. Wound vac area noted. Extensive area covered with wound vac sponge, output serosanguineous. Has a candidal rash in the groin MUSCULOSKELETAL: Extremities without clubbing, cyanosis. Some pedal edema. Ischemic toes R foot 2-4 toes and tip of 5th toe, no change. Cool feet NEUROLOGICAL: Grossly nonfocal Psych calm and cooperative IV line sites with no e.o infection Assessment & Plan Remarks Septic shock with multiorgan dysfunction syndrome, better Sepsis present on admission, better Necrotizing fasciitis of the abdominal wall ? History of multiple falls likely the precipitant. PSAE and Kleb pneumo pneumonia. PSAE and kleb in urine ? contamination as 2 organisms. Acute rhabdomyolysis Acute renal failure: Prerenal, sepsis, rhabdomyolysis Acute metabolic encephalopathy likely sepsis related. Baseline unknown Leukocytosis, persistent - nothing new on C/S; last OR C/S MRSA - could be reactive from last OR Recommendations: Continue Dapto IV (Vanco DELMI 2, clinically still has new areas of erythema and e /o infection outside wound vac margin, acute renal failure) Follow temps Follow CBC Monitor progress Discussed with RN neva Solis: LTAC possibility if facility will accept pt with Dapto IV. covering for me this weekend. Ellen De La Torre MD August 18, 2017 17:43
[2017-08-19] VITALS (16 sets, daily range): BP systolic 99–140; BP diastolic 55–75; PULSE 68–95; RESP 11–17; TEMP 97.8–98.7; O2SAT 95–100
[2017-08-19] MEDS: DILTIAZEM HCL 60 MG TAB PO SCH ×5 (01:15→23:35)
[2017-08-19 04:21] LABS: HEMATOCRIT 27.5 % (35.0-46.0); HEMOGLOBIN 9.2 GM/DL (11.6-15.3); MEAN CELL VOLUME 83.1 FL (80.0-100.0); MEAN CORPUSCULAR HEMOGLOBIN 27.7 PG (27.0-34.0); MEAN CORPUSCULAR HGB CONC 33.3 % (32.0-36.0); MEAN PLATELET VOLUME 5.4 FL (7.0-11.0); PLATELET COUNT 559 TH/MM3 (150-450); RED BLOOD COUNT 3.31 MIL/MM3 (4.00-5.30); RED CELL DISTRIBUTION WIDTH 16.5 % (11.6-17.2)
[2017-08-19 04:53] LABS: ALBUMIN 1.6 GM/DL (3.4-5.0); AST (GOT) 27 U/L (15-37); BLOOD UREA NITROGEN 9 MG/DL (7-18); CALCIUM 8.9 MG/DL (8.5-10.1); CHLORIDE 94 MEQ/L (98-107); CREATININE 0.75 MG/DL (0.50-1.00); GLOMERULAR FILTRATION RATE 78 ML/MIN (>89); GLUCOSE,RANDOM 132 MG/DL (74-106); SODIUM (NA) 130 MEQ/L (136-145)
[2017-08-19 04:54] LABS: ALT (GPT) 48 U/L (10-53)
[2017-08-19] MEDS: METOCLOPRAMIDE HCL 10 MG/2 ML VIAL IV SCH ×3 (04:56→20:53)
[2017-08-19 04:57] LABS: ALKALINE PHOSPHATASE 94 U/L (45-117); TOTAL BILIRUBIN ADULT 0.2 MG/DL (0.2-1.0); TOTAL PROTEIN 5.6 GM/DL (6.4-8.2)
[2017-08-19] MEDS: CHLORHEXIDINE 0.12% (ORAL KIT) 15 ML CUP MT SCH ×2 (08:00→20:00)
[2017-08-19] MEDS: CALCIUM/VITAMIN D 250 MG/125 U TAB PO SCH (09:52)
[2017-08-19] MEDS: DOCUSATE SODIUM 50 MG/SENNA 8.6 MG TAB PO SCH ×2 (09:52→20:54)
[2017-08-19] MEDS: FAMOTIDINE 20 MG TAB PO SCH ×2 (09:52→20:54)
[2017-08-19] MEDS: MULTIVITAMIN-OPHTHALMIC 1 TAB PO SCH (09:52)
[2017-08-19] MEDS: DOXAZOSIN MESYLATE 2 MG TAB PO SCH (09:52)
[2017-08-19] MEDS: CHLOROTHIAZIDE 250 MG TAB PO SCH (09:53)
[2017-08-19] MEDS: SODIUM CHLORIDE 0.9% FLUSH 10 ML FLUSH IV FLUSH SCH ×2 (09:56→20:54)
[2017-08-19] MEDS: MORPHINE SULFATE 4 MG/ML INJ IV PUSH PRN ×3 (14:11→23:35)
[2017-08-19] MEDS: NYSTATIN 100,000 U/GM PWD 15 GM BTL TOPICAL SCH ×2 (14:11→20:54)
--- NOTE | 2017-08-19 18:06 | HHI.PR ---
Subjective Subjective Notes VAC was reading blocked; now to wall suction per Dr. Dumont Objective Vitals/I&O Vital Signs Date Time Temp Pulse Resp B/P (MAP) Pulse Ox O2 Delivery O2 Flow Rate FiO2 08/19/17 14:00 89 08/19/17 12:00 98.5 17 106/57 (73) 99 08/19/17 09:09 T-piece 6.00 28 Labs Laboratory Tests Test 08/19/17 03:50 White Blood Count 10.0 Red Blood Count 3.31 Hemoglobin 9.2 Hematocrit 27.5 Mean Corpuscular Volume 83.1 Mean Corpuscular Hemoglobin 27.7 Mean Corpuscular Hemoglobin Concent 33.3 Red Cell Distribution Width 16.5 Platelet Count 559 Mean Platelet Volume 5.4 Blood Urea Nitrogen 9 Creatinine 0.75 Random Glucose 132 Total Protein 5.6 Albumin 1.6 Calcium Level 8.9 Alkaline Phosphatase 94 Aspartate Amino Transf (AST/SGOT) 27 Alanine Aminotransferase (ALT/SGPT) 48 Total Bilirubin 0.2 Sodium Level 130 Potassium Level 4.1 Chloride Level 94 Carbon Dioxide Level 27.0 Anion Gap 9 Estimat Glomerular Filtration Rate 78 Date/Time Source Procedure Growth Status 08/06/17 00:43 Blood Peripheral Aerobic Blood Culture - Final NO GROWTH IN 5 DAYS Complete 08/06/17 00:43 Blood Peripheral Anaerobic Blood Culture - Final QNS - SEE AEROBE REPORT Complete 08/05/17 05:40 Sputum Endotracheal Gram Stain - Final Complete 08/05/17 05:40 Sputum Culture - Final Pseudomonas Aeruginosa Klebsiella Pneumoniae Complete 08/15/17 00:45 Urine Catheterized Urine Urine Culture - Final NO GROWTH IN 48 HOURS. Complete 07/27/17 15:30 Wound Other Fungal Smear - Final NO FUNGAL ELEMENTS SEEN. Resulted 07/27/17 15:30 Wound Other Fungal Culture - Preliminary NO GROWTH IN 3 WEEKS Resulted Lungs: Clear Abdomen: Non-distended, Post-op tenderness A/P Problem List: (1) Acute kidney injury ICD Codes: N17.9 - Acute kidney failure, unspecified Status: Acute (2) Severe sepsis ICD Codes: A41.9 - Sepsis, unspecified organism; R65.20 - Severe sepsis without septic shock Status: Acute (3) Dysphagia ICD Codes: R13.10 - Dysphagia, unspecified Status: Resolved (4) HTN (hypertension) ICD Codes: I10 - Essential (primary) hypertension (5) Glaucoma ICD Codes: H40.9 - Unspecified glaucoma (6) Abdominal wall cellulitis ICD Codes: L03.311 - Cellulitis of abdominal wall (7) A-fib ICD Codes: I48.91 - Unspecified atrial fibrillation (8) Hypernatremia ICD Codes: E87.0 - Hyperosmolality and hypernatremia (9) Hypotension ICD Codes: I95.9 - Hypotension, unspecified Status: Resolved (10) Wound, open, trunk (11) Open wound of flank ICD Codes: S31.109A - Unspecified open wound of abdominal wall, unspecified quadrant without penetration into peritoneal cavity, initial encounter (12) Abdominal pain ICD Codes: R10.9 - Abdominal pain Status: Acute (13) GERD (gastroesophageal reflux disease) ICD Codes: K21.9 - Gastroesophageal reflux disease Status: Acute (14) Hypothyroidism ICD Codes: E03.9 - Hypothyroidism Status: Chronic (15) Dyslipidemia ICD Codes: E78.5 - Dyslipidemia Status: Acute (16) Low back pain ICD Codes: M54.5 - Low back pain Status: Acute (17) Diabetes mellitus type 2 with neurological manifestations ICD Codes: E11.40 - Type 2 diabetes mellitus with neurological manifestations Status: Acute (18) Pancreatitis ICD Codes: K85.9 - Pancreatitis Status: Acute (19) Diabetic peripheral neuropathy associated with type 2 diabetes mellitus ICD Codes: E11.42 - Diabetic peripheral neuropathy associated with type 2 diabetes mellitus Status: Acute Assessment and Plan Assessment and Plan Soft tissues necrotizing infection s/p incision and wide excisional debridement and multiple vac changes PLAN ok for nursing reinforcement as needed, ok for wall sxn if malfxn. call md if further issues continue abx s/p trach plastics for skin grafting select planning when bed available from surgery stand point vac change prn likely monday or monday Problem Qualifiers (1) Hypotension: Qualified Codes: I95.9 - Hypotension, unspecified Kvng Barrow MD August 19, 2017 18:06
[2017-08-19] MEDS: SODIUM CHLORIDE 0.9% IV SCH (20:55)
[2017-08-19] MEDS: DAPTOMYCIN IV SCH (20:55)
[2017-08-19] MEDS: ONDANSETRON HCL 4 MG/2 ML VIAL IVP PRN (23:35)
[2017-08-20] VITALS (17 sets, daily range): BP systolic 103–130; BP diastolic 56–75; PULSE 71–98; RESP 16–32; TEMP 97.5–98; O2SAT 94–100
[2017-08-20] MEDS: MORPHINE SULFATE 4 MG/ML INJ IV PUSH PRN ×2 (01:33→03:06)
[2017-08-20] MEDS: METOCLOPRAMIDE HCL 10 MG/2 ML VIAL IV SCH ×3 (05:24→21:44)
[2017-08-20] MEDS: oxyCODONE HCL ORAL CONC 5 MG/0.25 ML SYRINGE PO PRN (05:25)
[2017-08-20] MEDS: DILTIAZEM HCL 60 MG TAB PO SCH ×4 (05:25→23:51)
[2017-08-20] MEDS: CHLORHEXIDINE 0.12% (ORAL KIT) 15 ML CUP MT SCH ×2 (08:00→20:00)
[2017-08-20] MEDS: FAMOTIDINE 20 MG TAB PO SCH ×2 (09:00→21:44)
[2017-08-20] MEDS: DOXAZOSIN MESYLATE 2 MG TAB PO SCH (09:00)
[2017-08-20] MEDS: CALCIUM/VITAMIN D 250 MG/125 U TAB PO SCH (09:00)
[2017-08-20] MEDS: DOCUSATE SODIUM 50 MG/SENNA 8.6 MG TAB PO SCH ×3 (09:00→21:44)
--- NOTE | 2017-08-20 12:37 | HHI.PR ---
Subjective Subjective Notes RN reports VAC working well on wall suction. no issues Objective Vitals/I&O Vital Signs Date Time Temp Pulse Resp B/P (MAP) Pulse Ox O2 Delivery O2 Flow Rate FiO2 08/20/17 08:55 95 T-piece 6.00 28 08/20/17 06:25 16 08/20/17 06:00 83 103/57 (72) 08/20/17 04:00 97.9 Labs Date/Time Source Procedure Growth Status 08/06/17 00:43 Blood Peripheral Aerobic Blood Culture - Final NO GROWTH IN 5 DAYS Complete 08/06/17 00:43 Blood Peripheral Anaerobic Blood Culture - Final QNS - SEE AEROBE REPORT Complete 08/05/17 05:40 Sputum Endotracheal Gram Stain - Final Complete 08/05/17 05:40 Sputum Culture - Final Pseudomonas Aeruginosa Klebsiella Pneumoniae Complete 08/15/17 00:45 Urine Catheterized Urine Urine Culture - Final NO GROWTH IN 48 HOURS. Complete 07/27/17 15:30 Wound Other Fungal Smear - Final NO FUNGAL ELEMENTS SEEN. Resulted 07/27/17 15:30 Wound Other Fungal Culture - Preliminary NO GROWTH IN 3 WEEKS Resulted Wound Wound : Wound Location: Abdomen Dressing: VAC A/P Problem List: (1) Acute kidney injury ICD Codes: N17.9 - Acute kidney failure, unspecified Status: Acute (2) Severe sepsis ICD Codes: A41.9 - Sepsis, unspecified organism; R65.20 - Severe sepsis without septic shock Status: Acute (3) Dysphagia ICD Codes: R13.10 - Dysphagia, unspecified Status: Resolved (4) HTN (hypertension) ICD Codes: I10 - Essential (primary) hypertension (5) Glaucoma ICD Codes: H40.9 - Unspecified glaucoma (6) Abdominal wall cellulitis ICD Codes: L03.311 - Cellulitis of abdominal wall (7) A-fib ICD Codes: I48.91 - Unspecified atrial fibrillation (8) Hypernatremia ICD Codes: E87.0 - Hyperosmolality and hypernatremia (9) Hypotension ICD Codes: I95.9 - Hypotension, unspecified Status: Resolved (10) Wound, open, trunk (11) Open wound of flank ICD Codes: S31.109A - Unspecified open wound of abdominal wall, unspecified quadrant without penetration into peritoneal cavity, initial encounter (12) Abdominal pain ICD Codes: R10.9 - Abdominal pain Status: Acute (13) GERD (gastroesophageal reflux disease) ICD Codes: K21.9 - Gastroesophageal reflux disease Status: Acute (14) Hypothyroidism ICD Codes: E03.9 - Hypothyroidism Status: Chronic (15) Dyslipidemia ICD Codes: E78.5 - Dyslipidemia Status: Acute (16) Low back pain ICD Codes: M54.5 - Low back pain Status: Acute (17) Diabetes mellitus type 2 with neurological manifestations ICD Codes: E11.40 - Type 2 diabetes mellitus with neurological manifestations Status: Acute (18) Pancreatitis ICD Codes: K85.9 - Pancreatitis Status: Acute (19) Diabetic peripheral neuropathy associated with type 2 diabetes mellitus ICD Codes: E11.42 - Diabetic peripheral neuropathy associated with type 2 diabetes mellitus Status: Acute Assessment and Plan s/p ID for necrotizing infection continue wound care VAC change per Dr Dumont Problem Qualifiers (1) Hypotension: Qualified Codes: I95.9 - Hypotension, unspecified Chong Hawthorne MD August 20, 2017 12:37
[2017-08-20] MEDS: DAPTOMYCIN IV SCH (18:38)
[2017-08-20] MEDS: MULTIVITAMIN-OPHTHALMIC 1 TAB PO SCH (18:38)
[2017-08-20] MEDS: CHLOROTHIAZIDE 250 MG TAB PO SCH (18:38)
[2017-08-20] MEDS: SODIUM CHLORIDE 0.9% IV SCH (18:38)
[2017-08-20] MEDS: NYSTATIN 100,000 U/GM PWD 15 GM BTL TOPICAL SCH ×2 (18:39→21:45)
[2017-08-20] MEDS: SODIUM CHLORIDE 0.9% FLUSH 10 ML FLUSH IV FLUSH SCH ×2 (18:39→21:44)
--- NOTE | 2017-08-20 19:32 | HHI.CCPN ---
Subjective Remarks/Hospital Course This is a 62-year-old female with a history of developmental delay and recurrent urinary tract infections who presents with new onset right-sided abdominal and flank pain. Per the [facility] service admission note this is been going on for approximately 4 weeks. Patient has a history of developmental delay and is difficult to get a complete history from her, no analysis with her on my evaluation. On my evaluation she endorses flank pain radiating around to her chest. She endorses subjective chills. Denies recent fevers to me. Also endorses nausea, vomiting. In the emergency department she was found to have significant erythema, rubor, dolor, and edema from approximately the fifth intercostal space down to the eighth or ninth intercostal space wrapping around from the midline in the back all the way around to just medial to the breast. CT scan of the abdomen and pelvis confirms significant subcutaneous edema, but this area of edema appears to be contained by intact fascial planes, particularly in the midline of the back. Laboratory evidence is significant for a white blood cell count of 27k, creatinine is 3.58, potassium 5.4, bicarb of 17.9, anion gap elevated at 15, BUN of 64, an initial lactate of 5.1. In the emergency department she received 3 L of crystalloid IV fluids. Despite this she is hypotensive with a mean arterial pressure of 51. Critical care medicine is consulted to evaluate manage her presumed septic shock secondary to severe cellulitis of the trunk. I have given her an additional liter of crystalloid and then placed central venous access, see separate procedure note for details. In addition her lactate is starting to clear and is now 2.9 with an more currently pending, however it is not clearing fast enough and she remains oliguric. I placed a Scales for accurate hourly I's and O's. The remainder of the review systems for the patient is negative except documented in the HPI, although this is severely limited by her baseline developmental delay. Subjective 07/23: Patient remains on vasopressors, noted metabolic acidosis, bicarbonate level of 15. Sodium bicarbonate infusion initiated. 07/24 Patient was intubated early this morning now on Vasopressin and Neosyn 300 mics in addition patient is on Amio and Bicarb drips. WBC increased 31. CT abd/pelvis showed right sided cellulites and developing myositis. 07/25 Patient went to OR yesterday s/p wide excisional debridement of soft tissue infection with VAC placement for necrotizing soft tissue infection of abdomen, right hip area right torso area measuring approximately 32 x 18 inches x 2 inches deep. She remains on Vasopressin 0.04 and Neosyn down to 120 mics. On Amio drip. 07/26 No events overnight. Off all pressors, WBC is trending down. On Amio drip. 07/27 Patient remains intubated for return to OR today and wound vac exchange. 07/28 Patient s/p excisional debridement with vac change yesterday intubated and sedated with Fentanyl infusion. 07/29 Patient remains intubated and sedated with Fentanyl and Versed drips. Afebrile. 07/30 No events overnight. Patient remains sedated with Fentanyl drip and intubated. For OR today for further debridement and wound vac exchange. Afebrile. 07/31 Patient went to OR yesterday for vac exchange, Afebrile, WBC is trending down, Intubated and now sedated with Fentanyl and Versed 2mg/hr 08/01: Remains sedated, orally intubated on mechanical ventilation. Scheduled for OR today for vac exchange. 08/02: Remains intubated scheduled for OR again today. Antibiotics per ID. Slight increase in WBC count is 17.2 08/03: s/p Excisional debridement with VAC change yesterday by Dr. Dumont. Tolerating CPAP but not waking up or following commands. Dr. Dumont plans for further wound debridement and VAC change either tomorrow or Monday. Anticipating OR will leave patient intubated. WBC 19.9 today, will discuss with ID 08/04: Remains intubated, intermittently agitated on the vent. Or planned for tomorrow by Dr. Dumont. WBC count is slightly improved today 16.7 08/05: Patient is more critical today with worsening sepsis. T-max 102, WBC count up to 22.6. Hypotensive blood pressure 78/51. I have ordered 1 L normal saline bolus. Pancultured overnight. Zosyn started by Dr. Mcdonald. I will start micafungin also. Will inform ID. Dr. Dumont planning for OR today 08/06: Evaluated by night piston maker for persistent worsening hypotension called to bedside to evaluate patient with worsening hypotension. Given 500 cc 5 % albumin 1 without improvement in hypotension. A right subclavian central line was placed and norepinephrine infusion was started for persistent septic shock. Currently map remains above 65, on Levophed at 4 mcg/min. WBC 16.1 slightly improved from yesterday. Hemoglobin has dropped to 7.2 approximately 2 g drop. Transfuse 1 unit of PRBC stat. T-max 100.7, urine culture growing GNR 08/07: Remains sedated, orally intubated on mechanical ventilation. Wound VAC in place. On Levophed 2 mics per minute for hypotension. 08/08: Sedated, orally intubated on mechanical ventilation. Wound VAC remains in place. Tolerating tube feeds. Discussed with Dr. Dumont who is planning to take patient to OR tomorrow for wound VAC change as well as tracheostomy. 08/09: OR today for wound VAC change and tracheostomy. Remains on Levophed at 1 mcg/min. If continued Levophed requirement, right subclavian central line heading towards the left subclavian need to be replaced 08/10: Patient went to OR today for wound vac change and tracheostomy. Had further wound debridement. Profoundly hypothermic. Temperature 92. Warming blanket applied. Send CBC. Discussed with ID. 08/11: Late entry note. Pt seen at 0830. Afebrile. No acute events overnight. Patient currently normothermic, WBC count downtrending. Palpable pulses B/L dorsalis pedis and post tibialis. 08/12 : No acute events. Possible plan for wound VAC replacement tomorrow. Overnight the wound VAC was dislodged Dr. Floyd follow in for wound VAC adjustment. Patient off sedation awake alert mouthing words appropriately. 08/13: doing well. conversant. remains on vent: when PSV support weaned, becomes tachypneic. going to OR tomorrow for washout. afebrile. denies complaints. 08/14: no complaints. scales removed yesterday but has not voided. will start cardura to help with bladder control. to OR today for washout. 08/15: Awake alert on the vent. Will attempt CPAP, and T-piece if tolerated. Plan for OR for washout VAC change again tomorrow 08/16: Continues to improve very slowly. still needing cpap and weaning support as tolerated. needs to be OOB to chair. 08/17: Currently on T-piece breathing comfortably. Dr. Dumont planning on VAC change today again. 08/18: no acute events. required ventilatory support overnight. will again attempt t-piece today. needs aggressive PT/OT. 08/19: No acute events overnight. The patient has remained on T piece overnight. Pain well controlled with morphine every 2 hours. Tube feeds resumed. 08/20: No acute events overnight. The patient remains on trach collar. Objective Vital Signs Date Time Temp Pulse Resp B/P (MAP) Pulse Ox O2 Delivery O2 Flow Rate FiO2 08/20/17 16:00 93 08/20/17 16:00 98.0 32 123/69 (87) 98 08/20/17 08:55 T-piece 6.00 28 Intake and Output 08/20/17 08/20/17 08/21/17 08:00 16:00 00:00 Intake Total 690 ml Output Total 900.0 ml Balance -210.0 ml Result Diagram: 08/19/17 0350 08/19/17 0350 Imaging Last Impressions Chest X-Ray 08/15/17 0600 Signed Impressions: Service Date/Time: Tuesday, August 15, 2017 02:15 - CONCLUSION: Stable appearance with no acute cardiopulmonary disease. Kvng Nuñez MD Brain MRI 07/28/17 0000 Signed Impressions: Service Date/Time: Friday, July 28, 2017 14:38 - CONCLUSION: 1. Unremarkable MRI examination the brain. 2. No acute abnormality or interval change. Bob Daly MD Chest CT 07/24/17 0000 Signed Impressions: Service Date/Time: Monday, July 24, 2017 05:36 - CONCLUSION: 1. Stranding in the subcutaneous tissues about the right flank with fluid adjacent to the latissimus dorsi. Stranding extends up into the right breast. Findings could represent developing cellulitis. 2. In addition, there is now a small right-sided effusion with bilateral dependent atelectatic changes. Jerome Brady MD Abdomen/Pelvis CT 07/24/17 0000 Signed Impressions: Service Date/Time: Monday, July 24, 2017 05:36 - CONCLUSION: 1. CT findings concerning for a right sided cellulitis and developing myositis. There is some asymmetric prominence of the latissimus dorsi muscle on the right. Unorganized fluid in the deep subcutaneous tissues adjacent to the muscle belly. No drainable fluid collection, however. 2. Developing dependent areas of consolidation, right greater than left with an associated small right-sided effusion. Jerome Brady MD Head CT 07/22/17 1253 Signed Impressions: Service Date/Time: Saturday, July 22, 2017 13:26 - CONCLUSION: No acute disease. Derrick Henry MD Last Impressions Chest X-Ray 07/30/17 0000 Signed Impressions: Service Date/Time: Sunday, July 30, 2017 08:14 - CONCLUSION: Underinflation with atelectasis at the lung bases. Otherwise, no acute finding is seen given the technique. Derrick García MD Brain MRI 07/28/17 0000 Signed Impressions: Service Date/Time: Friday, July 28, 2017 14:38 - CONCLUSION: 1. Unremarkable MRI examination the brain. 2. No acute abnormality or interval change. Bob Daly MD Chest CT 07/24/17 0000 Signed Impressions: Service Date/Time: Monday, July 24, 2017 05:36 - CONCLUSION: 1. Stranding in the subcutaneous tissues about the right flank with fluid adjacent to the latissimus dorsi. Stranding extends up into the right breast. Findings could represent developing cellulitis. 2. In addition, there is now a small right-sided effusion with bilateral dependent atelectatic changes. Jerome Brady MD Abdomen/Pelvis CT 07/24/17 0000 Signed Impressions: Service Date/Time: Monday, July 24, 2017 05:36 - CONCLUSION: 1. CT findings concerning for a right sided cellulitis and developing myositis. There is some asymmetric prominence of the latissimus dorsi muscle on the right. Unorganized fluid in the deep subcutaneous tissues adjacent to the muscle belly. No drainable fluid collection, however. 2. Developing dependent areas of consolidation, right greater than left with an associated small right-sided effusion. Jerome Brady MD Head CT 07/22/17 1253 Signed Impressions: Service Date/Time: Saturday, July 22, 2017 13:26 - CONCLUSION: No acute disease. Derrick Henry MD Objective Remarks GENERAL: Elderly female, lying in bed, trached now on TP HEENT: Normocephalic. Atraumatic. Pupils equal, round, reactive, conjugate. NGT in place NECK: Trachea is midline. There is no JVD. Tracheostomy in place no bleeding CHEST: Equal chest rise. On TP CARDIOVASCULAR: RRR, nl ABDOMEN: Soft, nontender, nondistended, wound Vac in place on the right flank covering extensive areas of debridement. MUSCULOSKELETAL: Gangrene of 2-4 toes on right. NEUROLOGICAL: awake, alert, follows commands. no focal deficits. Date of Insertion: Jul 22, 2017 A/P Assessment and Plan Active problems: Septic shock, resolved. Hypothermia- resolved Acute metabolic encephalopathy- resolved Acute kidney injury- resolved Elevated CK- resolved Thrombocytopenia - resolved Chronic hypoxic and hypercarbic respiratory failure Right flank necrotizing fasciitis Pneumonia (HCAP) Anemia requiring transfusion Hypothyroidism Acute protein calorie malnutrition- severe chronic pain secondary to post-surgical debridement and wound Urinary Retention Plan: Neurologic: Neuro checks per ICU protocol. tramadol, oxycodone, morphine prn pain 07/22 CT brain: No acute disease. MRI brain 07/28 Unremarkable Neuro exam much improved and patient following commands Respiratory: Continue with vent support keep sats >92% Daily TP if tolerated. 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 status post tracheostomy by Dr. Dumont in the OR 08/10/17. Bronchodilators, ICU vent bundle. Cardiovascular: Monitor HR and BP keep MAP>65mmHg. Echo showed EF 50-55% diltiazem 60mg po q6h Renal: strict i/o's, Avoid nephrotoxins Renal following- . Mary for urinary retention FEN/GI: On Pepcid 10mg BID for GI prophylaxis Resume Tube feeds- Glucerna 1.5 with goal rate 45ml/hr ID: Urine culture and sputum culture from 08/04 and 08/05/2017 growing E. coli and Pseudomonas pansensitive Continue with abx per ID recommendations 07/24, 07/27 Wound cx :MRSA 07/24 BC :NGTD 07/23: urine cx: No growth 07/22 BC: NGTD 08/04 UC: GNR Path report: Abdominal soft tissue excision: Skin and subcutaneous adipose tissue with acute cellulitis and multifocal abscess formation 07/30 Wound vac exchange 07/27 s/p excisional debridement with vac change of torso and abdomen 07/24 s/p wide excisional debridement of soft tissue infection with VAC placement for necrotizing soft tissue infection of abdomen, right hip area right torso area measuring approximately 32 x 18 inches x 2 inches deep. Surgery -Dr. Dumont. Heme: Monitor CBC, transfuse PRBC as needed for goal hgb > 7. Endocrine: Levothyroxine 112 mcg/day on hold. TSH:0.08 on 07/24 Glucose monitoring per ICU protocol. -- Continue SSI medium scale for glycemic control MSK: Dry gangrene setting in of toes on right- Likely pressors induced ischemia of toes. Seen by vascular surg- no additional vascular work up needed given palpable pulses, Prophylaxis: GI Prophylaxis Famotidine DVT Prophylaxis SCDs. Chemical DVT prophylaxis when cleared by Dr. Dumont-holding due to anemia requiring transfusion Lines: Central line placed on 07/22 DCd 08/05/17. Peripheral IVs 2, may require scales catheter for urinary retention. OVERALL IMPRESSION: very deconditioned. weak. chronic respiratory failure and likely critical illness myopathy. needs long-term acute care facility for weaning. Dispo: Level 2 followup Physician Rachael Johnston MD August 20, 2017 19:32
[2017-08-21] VITALS (21 sets, daily range): BP systolic 97–134; BP diastolic 53–78; PULSE 67–99; RESP 16–57; TEMP 97.7–98.2; O2SAT 90–98
[2017-08-21] MEDS: METOCLOPRAMIDE HCL 10 MG/2 ML VIAL IV SCH ×3 (05:44→21:23)
[2017-08-21] MEDS: DILTIAZEM HCL 60 MG TAB PO SCH ×3 (05:44→17:38)
--- NOTE | 2017-08-21 05:47 | HHI.CCPN ---
Subjective Remarks/Hospital Course This is a 62-year-old female with a history of developmental delay and recurrent urinary tract infections who presents with new onset right-sided abdominal and flank pain. Per the [facility] service admission note this is been going on for approximately 4 weeks. Patient has a history of developmental delay and is difficult to get a complete history from her, no analysis with her on my evaluation. On my evaluation she endorses flank pain radiating around to her chest. She endorses subjective chills. Denies recent fevers to me. Also endorses nausea, vomiting. In the emergency department she was found to have significant erythema, rubor, dolor, and edema from approximately the fifth intercostal space down to the eighth or ninth intercostal space wrapping around from the midline in the back all the way around to just medial to the breast. CT scan of the abdomen and pelvis confirms significant subcutaneous edema, but this area of edema appears to be contained by intact fascial planes, particularly in the midline of the back. Laboratory evidence is significant for a white blood cell count of 27k, creatinine is 3.58, potassium 5.4, bicarb of 17.9, anion gap elevated at 15, BUN of 64, an initial lactate of 5.1. In the emergency department she received 3 L of crystalloid IV fluids. Despite this she is hypotensive with a mean arterial pressure of 51. Critical care medicine is consulted to evaluate manage her presumed septic shock secondary to severe cellulitis of the trunk. I have given her an additional liter of crystalloid and then placed central venous access, see separate procedure note for details. In addition her lactate is starting to clear and is now 2.9 with an more currently pending, however it is not clearing fast enough and she remains oliguric. I placed a Scales for accurate hourly I's and O's. The remainder of the review systems for the patient is negative except documented in the HPI, although this is severely limited by her baseline developmental delay. Subjective 07/23: Patient remains on vasopressors, noted metabolic acidosis, bicarbonate level of 15. Sodium bicarbonate infusion initiated. 07/24 Patient was intubated early this morning now on Vasopressin and Neosyn 300 mics in addition patient is on Amio and Bicarb drips. WBC increased 31. CT abd/pelvis showed right sided cellulites and developing myositis. 07/25 Patient went to OR yesterday s/p wide excisional debridement of soft tissue infection with VAC placement for necrotizing soft tissue infection of abdomen, right hip area right torso area measuring approximately 32 x 18 inches x 2 inches deep. She remains on Vasopressin 0.04 and Neosyn down to 120 mics. On Amio drip. 07/26 No events overnight. Off all pressors, WBC is trending down. On Amio drip. 07/27 Patient remains intubated for return to OR today and wound vac exchange. 07/28 Patient s/p excisional debridement with vac change yesterday intubated and sedated with Fentanyl infusion. 07/29 Patient remains intubated and sedated with Fentanyl and Versed drips. Afebrile. 07/30 No events overnight. Patient remains sedated with Fentanyl drip and intubated. For OR today for further debridement and wound vac exchange. Afebrile. 07/31 Patient went to OR yesterday for vac exchange, Afebrile, WBC is trending down, Intubated and now sedated with Fentanyl and Versed 2mg/hr 08/01: Remains sedated, orally intubated on mechanical ventilation. Scheduled for OR today for vac exchange. 08/02: Remains intubated scheduled for OR again today. Antibiotics per ID. Slight increase in WBC count is 17.2 08/03: s/p Excisional debridement with VAC change yesterday by Dr. Dumont. Tolerating CPAP but not waking up or following commands. Dr. Dumont plans for further wound debridement and VAC change either tomorrow or Monday. Anticipating OR will leave patient intubated. WBC 19.9 today, will discuss with ID 08/04: Remains intubated, intermittently agitated on the vent. Or planned for tomorrow by Dr. Dumont. WBC count is slightly improved today 16.7 08/05: Patient is more critical today with worsening sepsis. T-max 102, WBC count up to 22.6. Hypotensive blood pressure 78/51. I have ordered 1 L normal saline bolus. Pancultured overnight. Zosyn started by Dr. Mcdonald. I will start micafungin also. Will inform ID. Dr. Dumont planning for OR today 08/06: Evaluated by night errand runner for persistent worsening hypotension called to bedside to evaluate patient with worsening hypotension. Given 500 cc 5 % albumin 1 without improvement in hypotension. A right subclavian central line was placed and norepinephrine infusion was started for persistent septic shock. Currently map remains above 65, on Levophed at 4 mcg/min. WBC 16.1 slightly improved from yesterday. Hemoglobin has dropped to 7.2 approximately 2 g drop. Transfuse 1 unit of PRBC stat. T-max 100.7, urine culture growing GNR 08/07: Remains sedated, orally intubated on mechanical ventilation. Wound VAC in place. On Levophed 2 mics per minute for hypotension. 08/08: Sedated, orally intubated on mechanical ventilation. Wound VAC remains in place. Tolerating tube feeds. Discussed with Dr. Dumont who is planning to take patient to OR tomorrow for wound VAC change as well as tracheostomy. 08/09: OR today for wound VAC change and tracheostomy. Remains on Levophed at 1 mcg/min. If continued Levophed requirement, right subclavian central line heading towards the left subclavian need to be replaced 08/10: Patient went to OR today for wound vac change and tracheostomy. Had further wound debridement. Profoundly hypothermic. Temperature 92. Warming blanket applied. Send CBC. Discussed with ID. 08/11: Late entry note. Pt seen at 0830. Afebrile. No acute events overnight. Patient currently normothermic, WBC count downtrending. Palpable pulses B/L dorsalis pedis and post tibialis. 08/12 : No acute events. Possible plan for wound VAC replacement tomorrow. Overnight the wound VAC was dislodged Dr. Floyd follow in for wound VAC adjustment. Patient off sedation awake alert mouthing words appropriately. 08/13: doing well. conversant. remains on vent: when PSV support weaned, becomes tachypneic. going to OR tomorrow for washout. afebrile. denies complaints. 08/14: no complaints. scales removed yesterday but has not voided. will start cardura to help with bladder control. to OR today for washout. 08/15: Awake alert on the vent. Will attempt CPAP, and T-piece if tolerated. Plan for OR for washout VAC change again tomorrow 08/16: Continues to improve very slowly. still needing cpap and weaning support as tolerated. needs to be OOB to chair. 08/17: Currently on T-piece breathing comfortably. Dr. Dumont planning on VAC change today again. 08/18: no acute events. required ventilatory support overnight. will again attempt t-piece today. needs aggressive PT/OT. 08/19: No acute events overnight. The patient has remained on T piece overnight. Pain well controlled with morphine every 2 hours. Tube feeds resumed. 08/20: No acute events overnight. The patient remains on trach collar. 08/21: The patient tolerated trach collar throughout the entire night. Currently FiO2 0.28%, O2 saturation 94-95%. Tolerating tube feeds. Objective Vital Signs Date Time Temp Pulse Resp B/P (MAP) Pulse Ox O2 Delivery O2 Flow Rate FiO2 08/21/17 04:00 98.0 84 25 109/66 (80) 96 08/20/17 22:37 Trach Collar 21 08/20/17 08:55 6.00 Result Diagram: 08/19/17 0350 08/19/17 0350 Imaging Last Impressions Chest X-Ray 08/15/17 0600 Signed Impressions: Service Date/Time: Tuesday, August 15, 2017 02:15 - CONCLUSION: Stable appearance with no acute cardiopulmonary disease. Kvng Nuñez MD Brain MRI 07/28/17 0000 Signed Impressions: Service Date/Time: Friday, July 28, 2017 14:38 - CONCLUSION: 1. Unremarkable MRI examination the brain. 2. No acute abnormality or interval change. Bob Daly MD Chest CT 07/24/17 0000 Signed Impressions: Service Date/Time: Monday, July 24, 2017 05:36 - CONCLUSION: 1. Stranding in the subcutaneous tissues about the right flank with fluid adjacent to the latissimus dorsi. Stranding extends up into the right breast. Findings could represent developing cellulitis. 2. In addition, there is now a small right-sided effusion with bilateral dependent atelectatic changes. Jerome Brady MD Abdomen/Pelvis CT 07/24/17 0000 Signed Impressions: Service Date/Time: Monday, July 24, 2017 05:36 - CONCLUSION: 1. CT findings concerning for a right sided cellulitis and developing myositis. There is some asymmetric prominence of the latissimus dorsi muscle on the right. Unorganized fluid in the deep subcutaneous tissues adjacent to the muscle belly. No drainable fluid collection, however. 2. Developing dependent areas of consolidation, right greater than left with an associated small right-sided effusion. Jerome Brady MD Head CT 07/22/17 1253 Signed Impressions: Service Date/Time: Saturday, July 22, 2017 13:26 - CONCLUSION: No acute disease. Derrick Henry MD Last Impressions Chest X-Ray 07/30/17 0000 Signed Impressions: Service Date/Time: Sunday, July 30, 2017 08:14 - CONCLUSION: Underinflation with atelectasis at the lung bases. Otherwise, no acute finding is seen given the technique. Derrick García MD Brain MRI 07/28/17 0000 Signed Impressions: Service Date/Time: Friday, July 28, 2017 14:38 - CONCLUSION: 1. Unremarkable MRI examination the brain. 2. No acute abnormality or interval change. Bob Daly MD Chest CT 07/24/17 0000 Signed Impressions: Service Date/Time: Monday, July 24, 2017 05:36 - CONCLUSION: 1. Stranding in the subcutaneous tissues about the right flank with fluid adjacent to the latissimus dorsi. Stranding extends up into the right breast. Findings could represent developing cellulitis. 2. In addition, there is now a small right-sided effusion with bilateral dependent atelectatic changes. Jerome Brady MD Abdomen/Pelvis CT 07/24/17 0000 Signed Impressions: Service Date/Time: Monday, July 24, 2017 05:36 - CONCLUSION: 1. CT findings concerning for a right sided cellulitis and developing myositis. There is some asymmetric prominence of the latissimus dorsi muscle on the right. Unorganized fluid in the deep subcutaneous tissues adjacent to the muscle belly. No drainable fluid collection, however. 2. Developing dependent areas of consolidation, right greater than left with an associated small right-sided effusion. Jerome Brady MD Head CT 07/22/17 1253 Signed Impressions: Service Date/Time: Saturday, July 22, 2017 13:26 - CONCLUSION: No acute disease. Derrick Henry MD Objective Remarks GENERAL: Elderly female, lying in bed, on trach collar, resting comfortably HEENT: Normocephalic. Atraumatic. Pupils equal, round, reactive, conjugate. NGT in place NECK: Trachea is midline. There is no JVD. Tracheostomy in place no bleeding CHEST: Equal chest rise. On TP. Clear to auscultation bilaterally CARDIOVASCULAR: RRR, nl ABDOMEN: Soft, nontender, nondistended, wound Vac in place on the right flank covering extensive areas of debridement. MUSCULOSKELETAL: Gangrene of 2-4 toes on right, necrotic NEUROLOGICAL: awake, alert, follows commands. no focal deficits. Date of Insertion: Jul 22, 2017 A/P Assessment and Plan Active problems: Septic shock, resolved. Hypothermia- resolved Acute metabolic encephalopathy- resolved Acute kidney injury- resolved Elevated CK- resolved Thrombocytopenia - resolved Chronic hypoxic and hypercarbic respiratory failure Right flank necrotizing fasciitis Pneumonia (HCAP) Anemia requiring transfusion Hypothyroidism Acute protein calorie malnutrition- severe chronic pain secondary to post-surgical debridement and wound Urinary Retention Plan: Neurologic: Neuro checks per ICU protocol. tramadol, oxycodone, morphine prn pain 07/22 CT brain: No acute disease. MRI brain 07/28 Unremarkable Neuro exam much improved and patient following commands GCS 11 T Respiratory: Continue with vent support keep sats >92% Trach collar trials since status post tracheostomy by Dr. Dumont in the OR 08/10/17. Bronchodilators, ICU vent bundle. Cardiovascular: Monitor HR and BP keep MAP>65mmHg. Echo showed EF 50-55% Continue diltiazem 60mg po q6h Renal: strict I & 0's, Avoid nephrotoxins Renal following- . Mary for urinary retention FEN/GI: On Pepcid 10mg BID for GI prophylaxis Resume Tube feeds- Glucerna 1.5 with goal rate 45ml/hr ID: Urine culture and sputum culture from 08/04 and 08/05/2017 growing E. coli and Pseudomonas pansensitive Continue with abx per ID recommendations 07/24, 07/27 Wound cx :MRSA 07/24 BC :NGTD 07/23: urine cx: No growth 07/22 BC: NGTD 08/04 UC: GNR Path report: Abdominal soft tissue excision: Skin and subcutaneous adipose tissue with acute cellulitis and multifocal abscess formation 07/30 Wound vac exchange 07/27 s/p excisional debridement with vac change of torso and abdomen 07/24 s/p wide excisional debridement of soft tissue infection with VAC placement for necrotizing soft tissue infection of abdomen, right hip area right torso area measuring approximately 32 x 18 inches x 2 inches deep. Surgery -Dr. Dumont. Heme: Monitor CBC, transfuse PRBC as needed for goal hgb > 7. Endocrine: Levothyroxine 112 mcg/day on hold. TSH:0.08 on 07/24 08/21-repeat TSH level Glucose monitoring per ICU protocol. -- Continue SSI medium scale for glycemic control MSK: Dry gangrene setting in of toes on right- Likely pressors induced ischemia of toes. Seen by vascular surg- no additional vascular work up needed given palpable pulses, Prophylaxis: GI Prophylaxis Famotidine DVT Prophylaxis SCDs. Chemical DVT prophylaxis when cleared by Dr. Dumont[facility] due to anemia requiring transfusion Lines: Central line placed on 07/22 DCd 08/05/17. Peripheral IVs 2, may require scales catheter for urinary retention. OVERALL IMPRESSION: very deconditioned. weak. chronic respiratory failure and likely critical illness myopathy. needs long-term acute care facility for weaning. Dispo: Level 2 followup Physician Rachael Johnston MD August 21, 2017 05:47
[2017-08-21] MEDS: CHLORHEXIDINE 0.12% (ORAL KIT) 15 ML CUP MT SCH ×2 (08:00→21:24)
[2017-08-21] MEDS: DOCUSATE SODIUM 50 MG/SENNA 8.6 MG TAB PO SCH ×2 (09:00→21:00)
[2017-08-21] MEDS: MULTIVITAMIN-OPHTHALMIC 1 TAB PO SCH (10:03)
[2017-08-21] MEDS: SODIUM CHLORIDE 0.9% FLUSH 10 ML FLUSH IV FLUSH SCH ×2 (10:03→21:23)
[2017-08-21] MEDS: CHLOROTHIAZIDE 250 MG TAB PO SCH (10:03)
[2017-08-21] MEDS: CALCIUM/VITAMIN D 250 MG/125 U TAB PO SCH (10:10)
[2017-08-21] MEDS: FAMOTIDINE 20 MG TAB PO SCH ×2 (10:10→21:23)
[2017-08-21] MEDS: DOXAZOSIN MESYLATE 2 MG TAB PO SCH (10:10)
[2017-08-21] MEDS: NYSTATIN 100,000 U/GM PWD 15 GM BTL TOPICAL SCH ×2 (10:11→21:00)
[2017-08-21] MEDS: oxyCODONE HCL ORAL CONC 5 MG/0.25 ML SYRINGE PO PRN (10:11)
--- NOTE | 2017-08-21 10:44 | HHI.PR ---
Subjective Subjective Notes nec fasc Objective Vitals/I&O Vital Signs Date Time Temp Pulse Resp B/P (MAP) Pulse Ox O2 Delivery O2 Flow Rate FiO2 08/21/17 08:31 94 Trach Collar 21 08/21/17 06:00 80 08/21/17 04:00 98.0 25 109/66 (80) 08/20/17 08:55 6.00 Labs Laboratory Tests Test 08/21/17 07:30 Thyroid Stimulating Hormone 3rd Gen 83.100 Date/Time Source Procedure Growth Status 08/06/17 00:43 Blood Peripheral Aerobic Blood Culture - Final NO GROWTH IN 5 DAYS Complete 08/06/17 00:43 Blood Peripheral Anaerobic Blood Culture - Final QNS - SEE AEROBE REPORT Complete 08/05/17 05:40 Sputum Endotracheal Gram Stain - Final Complete 08/05/17 05:40 Sputum Culture - Final Pseudomonas Aeruginosa Klebsiella Pneumoniae Complete 08/15/17 00:45 Urine Catheterized Urine Urine Culture - Final NO GROWTH IN 48 HOURS. Complete 07/27/17 15:30 Wound Other Fungal Smear - Final NO FUNGAL ELEMENTS SEEN. Resulted 07/27/17 15:30 Wound Other Fungal Culture - Preliminary NO GROWTH IN 3 WEEKS Resulted Narrative Exam VAC intact on flank wound, no complications A/P Problem List: (1) Acute kidney injury ICD Codes: N17.9 - Acute kidney failure, unspecified Status: Acute (2) Severe sepsis ICD Codes: A41.9 - Sepsis, unspecified organism; R65.20 - Severe sepsis without septic shock Status: Acute (3) Dysphagia ICD Codes: R13.10 - Dysphagia, unspecified Status: Resolved (4) HTN (hypertension) ICD Codes: I10 - Essential (primary) hypertension (5) Glaucoma ICD Codes: H40.9 - Unspecified glaucoma (6) Abdominal wall cellulitis ICD Codes: L03.311 - Cellulitis of abdominal wall (7) A-fib ICD Codes: I48.91 - Unspecified atrial fibrillation (8) Hypernatremia ICD Codes: E87.0 - Hyperosmolality and hypernatremia (9) Hypotension ICD Codes: I95.9 - Hypotension, unspecified Status: Resolved (10) Wound, open, trunk (11) Open wound of flank ICD Codes: S31.109A - Unspecified open wound of abdominal wall, unspecified quadrant without penetration into peritoneal cavity, initial encounter (12) Abdominal pain ICD Codes: R10.9 - Abdominal pain Status: Acute (13) GERD (gastroesophageal reflux disease) ICD Codes: K21.9 - Gastroesophageal reflux disease Status: Acute (14) Hypothyroidism ICD Codes: E03.9 - Hypothyroidism Status: Chronic (15) Dyslipidemia ICD Codes: E78.5 - Dyslipidemia Status: Acute (16) Low back pain ICD Codes: M54.5 - Low back pain Status: Acute (17) Diabetes mellitus type 2 with neurological manifestations ICD Codes: E11.40 - Type 2 diabetes mellitus with neurological manifestations Status: Acute (18) Pancreatitis ICD Codes: K85.9 - Pancreatitis Status: Acute (19) Diabetic peripheral neuropathy associated with type 2 diabetes mellitus ICD Codes: E11.42 - Diabetic peripheral neuropathy associated with type 2 diabetes mellitus Status: Acute Assessment and Plan 62 year old female with extensive soft tissue infection -s/p debridement, wound vac placement -for VAC change Monday in OR with Dr. Dumont Problem Qualifiers (1) Hypotension: Qualified Codes: I95.9 - Hypotension, unspecified Wallace Watosn MD August 21, 2017 10:43
[2017-08-21] MEDS: SODIUM CHLORIDE 0.9% IV SCH (17:38)
[2017-08-21] MEDS: DAPTOMYCIN IV SCH (17:38)
[2017-08-21] MEDS: ONDANSETRON HCL 4 MG/2 ML VIAL IVP PRN (17:46)
[2017-08-21] MEDS: LACTULOSE SYRUP 20 GM/30 ML CUP PO PRN (21:23)
[2017-08-22] VITALS (18 sets, daily range): BP systolic 94–131; BP diastolic 56–73; PULSE 74–96; RESP 11–43; TEMP 97.5–97.8; O2SAT 92–98
[2017-08-22] MEDS: DILTIAZEM HCL 60 MG TAB PO SCH ×4 (02:14→18:00)
[2017-08-22] MEDS: LACTULOSE SYRUP 20 GM/30 ML CUP PO PRN ×2 (02:14→13:01)
[2017-08-22] MEDS: METOCLOPRAMIDE HCL 10 MG/2 ML VIAL IV SCH ×3 (05:01→22:00)
--- NOTE | 2017-08-22 05:01 | RADRPT ---
EXAM DATE: 08/22/2017 4:54 AM EDT AGE/SEX: 62 years / Female INDICATIONS: Short of breath. CLINICAL DATA: This is the patient's subsequent encounter. Patient reports that signs and symptoms h ave been present for 4 - 6 days and indicates a pain score of 0/10. MEDICAL/SURGICAL HISTORY: None. None. COMPARISON: [facility] [place], CHEST SINGLE AP, 08/15/2017. . FINDINGS: The lungs are clear without infiltrate, nodule, or mass. There is no appreciable pleural effusion for technique. Heart and mediastinum are unremarkable. NG tube is present with tip in the s ac. Tracheostomy tube is present in satisfactory position. CONCLUSION: No acute cardiopulmonary disease. Electronically signed by: Annika Cagle MD 08/22/2017 4:59 AM EDT
[2017-08-22] MEDS: MORPHINE SULFATE 4 MG/ML INJ IV PUSH PRN ×2 (05:12→15:41)
[2017-08-22 05:51] LABS: HEMATOCRIT 31.5 % (35.0-46.0); HEMOGLOBIN 10.5 GM/DL (11.6-15.3); MEAN CELL VOLUME 81.8 FL (80.0-100.0); MEAN CORPUSCULAR HEMOGLOBIN 27.2 PG (27.0-34.0); MEAN CORPUSCULAR HGB CONC 33.2 % (32.0-36.0); MEAN PLATELET VOLUME 5.1 FL (7.0-11.0); PLATELET COUNT 733 TH/MM3 (150-450); RED BLOOD COUNT 3.86 MIL/MM3 (4.00-5.30); RED CELL DISTRIBUTION WIDTH 16.7 % (11.6-17.2)
[2017-08-22 06:17] LABS: AST (GOT) 41 U/L (15-37); BICARBONATE 32.9 MEQ/L (21.0-32.0); BLOOD UREA NITROGEN 13 MG/DL (7-18); CALCIUM 9.6 MG/DL (8.5-10.1); CHLORIDE 92 MEQ/L (98-107); CREATININE 0.66 MG/DL (0.50-1.00); GLOMERULAR FILTRATION RATE 91 ML/MIN (>89); GLUCOSE,RANDOM 105 MG/DL (74-106); MAGNESIUM 1.6 MG/DL (1.5-2.5); SODIUM (NA) 131 MEQ/L (136-145)
[2017-08-22 06:18] LABS: ALT (GPT) 48 U/L (10-53); PHOSPHORUS 1.5 MG/DL (2.5-4.9)
[2017-08-22 06:20] LABS: ALKALINE PHOSPHATASE 106 U/L (45-117); TOTAL BILIRUBIN ADULT 0.3 MG/DL (0.2-1.0); TOTAL PROTEIN 6.1 GM/DL (6.4-8.2)
[2017-08-22] MEDS: DOCUSATE SODIUM 50 MG/SENNA 8.6 MG TAB PO SCH ×2 (09:00→21:00)
[2017-08-22] MEDS ORDERED: PROPOFOL 200 MG/20 ML AMP IV ONE (12:00)
[2017-08-22] MEDS ORDERED: PHENYLEPH/NS 1000 MCG/10 ML SYR IV ONE (12:00)
[2017-08-22] MEDS: NYSTATIN 100,000 U/GM PWD 15 GM BTL TOPICAL SCH ×2 (12:58→21:00)
[2017-08-22] MEDS: CHLORHEXIDINE 0.12% (ORAL KIT) 15 ML CUP MT SCH ×2 (12:58→20:00)
[2017-08-22] MEDS: DIMETHICONE/OXYBENZONE/PADMIATE LIP BALM 4.25 GM TOPICAL PRN (12:58)
[2017-08-22] MEDS: MULTIVITAMIN-OPHTHALMIC 1 TAB PO SCH (12:59)
[2017-08-22] MEDS: FAMOTIDINE 20 MG TAB PO SCH ×2 (12:59→22:00)
[2017-08-22] MEDS: CALCIUM/VITAMIN D 250 MG/125 U TAB PO SCH (12:59)
[2017-08-22] MEDS: SODIUM CHLORIDE 0.9% FLUSH 10 ML FLUSH IV FLUSH SCH ×2 (12:59→22:00)
[2017-08-22] MEDS: DOXAZOSIN MESYLATE 2 MG TAB PO SCH (13:00)
--- NOTE | 2017-08-22 13:00 | HHI.PR ---
Immediate Post Op Note Procedure Date: August 22, 2017 Pre Op Diagnosis: Post Op Diagnosis: Surgeon: MD Tim Yu Lars S MD August 22, 2017 13:00
--- NOTE | 2017-08-22 13:02 | HHI.PR ---
Immediate Post Op Note Procedure Date: August 22, 2017 Pre Op Diagnosis: hx of necrotizing soft tissue infection right torso, flank, back Post Op Diagnosis: same Surgeon: Tip Dumont MD Diesel Mechanic(s): see or sheet Procedure: vac change to right flank back torso Findings: good granulation tissue Complications: none Specimen(s) removed: none Estimated blood loss: 5cc Anesthesia: General Drains: Hemovac Patient to: PACU Patient Condition: Tip Posada MD August 22, 2017 13:02
--- NOTE | 2017-08-22 14:50 | HHI.CCPN ---
Subjective Remarks/Hospital Course This is a 62-year-old female with a history of developmental delay and recurrent urinary tract infections who presents with new onset right-sided abdominal and flank pain. Per the [facility] service admission note this is been going on for approximately 4 weeks. Patient has a history of developmental delay and is difficult to get a complete history from her, no analysis with her on my evaluation. On my evaluation she endorses flank pain radiating around to her chest. She endorses subjective chills. Denies recent fevers to me. Also endorses nausea, vomiting. In the emergency department she was found to have significant erythema, rubor, dolor, and edema from approximately the fifth intercostal space down to the eighth or ninth intercostal space wrapping around from the midline in the back all the way around to just medial to the breast. CT scan of the abdomen and pelvis confirms significant subcutaneous edema, but this area of edema appears to be contained by intact fascial planes, particularly in the midline of the back. Laboratory evidence is significant for a white blood cell count of 27k, creatinine is 3.58, potassium 5.4, bicarb of 17.9, anion gap elevated at 15, BUN of 64, an initial lactate of 5.1. In the emergency department she received 3 L of crystalloid IV fluids. Despite this she is hypotensive with a mean arterial pressure of 51. Critical care medicine is consulted to evaluate manage her presumed septic shock secondary to severe cellulitis of the trunk. I have given her an additional liter of crystalloid and then placed central venous access, see separate procedure note for details. In addition her lactate is starting to clear and is now 2.9 with an more currently pending, however it is not clearing fast enough and she remains oliguric. I placed a Scales for accurate hourly I's and O's. The remainder of the review systems for the patient is negative except documented in the HPI, although this is severely limited by her baseline developmental delay. Subjective 07/23: Patient remains on vasopressors, noted metabolic acidosis, bicarbonate level of 15. Sodium bicarbonate infusion initiated. 07/24 Patient was intubated early this morning now on Vasopressin and Neosyn 300 mics in addition patient is on Amio and Bicarb drips. WBC increased 31. CT abd/pelvis showed right sided cellulites and developing myositis. 07/25 Patient went to OR yesterday s/p wide excisional debridement of soft tissue infection with VAC placement for necrotizing soft tissue infection of abdomen, right hip area right torso area measuring approximately 32 x 18 inches x 2 inches deep. She remains on Vasopressin 0.04 and Neosyn down to 120 mics. On Amio drip. 07/26 No events overnight. Off all pressors, WBC is trending down. On Amio drip. 07/27 Patient remains intubated for return to OR today and wound vac exchange. 07/28 Patient s/p excisional debridement with vac change yesterday intubated and sedated with Fentanyl infusion. 07/29 Patient remains intubated and sedated with Fentanyl and Versed drips. Afebrile. 07/30 No events overnight. Patient remains sedated with Fentanyl drip and intubated. For OR today for further debridement and wound vac exchange. Afebrile. 07/31 Patient went to OR yesterday for vac exchange, Afebrile, WBC is trending down, Intubated and now sedated with Fentanyl and Versed 2mg/hr 08/01: Remains sedated, orally intubated on mechanical ventilation. Scheduled for OR today for vac exchange. 08/02: Remains intubated scheduled for OR again today. Antibiotics per ID. Slight increase in WBC count is 17.2 08/03: s/p Excisional debridement with VAC change yesterday by Dr. Dumont. Tolerating CPAP but not waking up or following commands. Dr. Dumont plans for further wound debridement and VAC change either tomorrow or Monday. Anticipating OR will leave patient intubated. WBC 19.9 today, will discuss with ID 08/04: Remains intubated, intermittently agitated on the vent. Or planned for tomorrow by Dr. Dumont. WBC count is slightly improved today 16.7 08/05: Patient is more critical today with worsening sepsis. T-max 102, WBC count up to 22.6. Hypotensive blood pressure 78/51. I have ordered 1 L normal saline bolus. Pancultured overnight. Zosyn started by Dr. Mcdonald. I will start micafungin also. Will inform ID. Dr. Dumont planning for OR today 08/06: Evaluated by night cargo agent for persistent worsening hypotension called to bedside to evaluate patient with worsening hypotension. Given 500 cc 5 % albumin 1 without improvement in hypotension. A right subclavian central line was placed and norepinephrine infusion was started for persistent septic shock. Currently map remains above 65, on Levophed at 4 mcg/min. WBC 16.1 slightly improved from yesterday. Hemoglobin has dropped to 7.2 approximately 2 g drop. Transfuse 1 unit of PRBC stat. T-max 100.7, urine culture growing GNR 08/07: Remains sedated, orally intubated on mechanical ventilation. Wound VAC in place. On Levophed 2 mics per minute for hypotension. 08/08: Sedated, orally intubated on mechanical ventilation. Wound VAC remains in place. Tolerating tube feeds. Discussed with Dr. Dumont who is planning to take patient to OR tomorrow for wound VAC change as well as tracheostomy. 08/09: OR today for wound VAC change and tracheostomy. Remains on Levophed at 1 mcg/min. If continued Levophed requirement, right subclavian central line heading towards the left subclavian need to be replaced 08/10: Patient went to OR today for wound vac change and tracheostomy. Had further wound debridement. Profoundly hypothermic. Temperature 92. Warming blanket applied. Send CBC. Discussed with ID. 08/11: Late entry note. Pt seen at 0830. Afebrile. No acute events overnight. Patient currently normothermic, WBC count downtrending. Palpable pulses B/L dorsalis pedis and post tibialis. 08/12 : No acute events. Possible plan for wound VAC replacement tomorrow. Overnight the wound VAC was dislodged Dr. Floyd follow in for wound VAC adjustment. Patient off sedation awake alert mouthing words appropriately. 08/13: doing well. conversant. remains on vent: when PSV support weaned, becomes tachypneic. going to OR tomorrow for washout. afebrile. denies complaints. 08/14: no complaints. scales removed yesterday but has not voided. will start cardura to help with bladder control. to OR today for washout. 08/15: Awake alert on the vent. Will attempt CPAP, and T-piece if tolerated. Plan for OR for washout VAC change again tomorrow 08/16: Continues to improve very slowly. still needing cpap and weaning support as tolerated. needs to be OOB to chair. 08/17: Currently on T-piece breathing comfortably. Dr. Dumont planning on VAC change today again. 08/18: no acute events. required ventilatory support overnight. will again attempt t-piece today. needs aggressive PT/OT. 08/19: No acute events overnight. The patient has remained on T piece overnight. Pain well controlled with morphine every 2 hours. Tube feeds resumed. 08/20: No acute events overnight. The patient remains on trach collar. 08/21: The patient tolerated trach collar throughout the entire night. Currently FiO2 0.28%, O2 saturation 94-95%. Tolerating tube feeds. 08/22: Patient remained on trach collar throughout the night. Patient pleasant conversant denies any distress. Patient remained n.p.o. this morning for wound VAC change in the OR today. Objective Vital Signs Date Time Temp Pulse Resp B/P (MAP) Pulse Ox O2 Delivery O2 Flow Rate FiO2 08/22/17 08:15 95 Trach Collar 21.00 08/22/17 06:00 76 08/22/17 04:00 97.5 17 127/66 (86) 08/21/17 20:33 21 Intake and Output 08/22/17 08/22/17 08/23/17 08:00 16:00 00:00 Intake Total 200 ml 150 ml Output Total 450 ml 20 ml Balance -250 ml 130 ml Result Diagram: 08/22/17 0529 08/22/17 0529 Imaging Last Impressions Chest X-Ray 08/15/17 0600 Signed Impressions: Service Date/Time: Tuesday, August 15, 2017 02:15 - CONCLUSION: Stable appearance with no acute cardiopulmonary disease. Kvng Nuñez MD Brain MRI 07/28/17 0000 Signed Impressions: Service Date/Time: Friday, July 28, 2017 14:38 - CONCLUSION: 1. Unremarkable MRI examination the brain. 2. No acute abnormality or interval change. Bob Daly MD Chest CT 07/24/17 0000 Signed Impressions: Service Date/Time: Monday, July 24, 2017 05:36 - CONCLUSION: 1. Stranding in the subcutaneous tissues about the right flank with fluid adjacent to the latissimus dorsi. Stranding extends up into the right breast. Findings could represent developing cellulitis. 2. In addition, there is now a small right-sided effusion with bilateral dependent atelectatic changes. Jerome Brady MD Abdomen/Pelvis CT 07/24/17 0000 Signed Impressions: Service Date/Time: Monday, July 24, 2017 05:36 - CONCLUSION: 1. CT findings concerning for a right sided cellulitis and developing myositis. There is some asymmetric prominence of the latissimus dorsi muscle on the right. Unorganized fluid in the deep subcutaneous tissues adjacent to the muscle belly. No drainable fluid collection, however. 2. Developing dependent areas of consolidation, right greater than left with an associated small right-sided effusion. Jerome Brady MD Head CT 07/22/17 1253 Signed Impressions: Service Date/Time: Saturday, July 22, 2017 13:26 - CONCLUSION: No acute disease. Derrick Henry MD Last Impressions Chest X-Ray 07/30/17 0000 Signed Impressions: Service Date/Time: Sunday, July 30, 2017 08:14 - CONCLUSION: Underinflation with atelectasis at the lung bases. Otherwise, no acute finding is seen given the technique. Derrick García MD Brain MRI 07/28/17 0000 Signed Impressions: Service Date/Time: Friday, July 28, 2017 14:38 - CONCLUSION: 1. Unremarkable MRI examination the brain. 2. No acute abnormality or interval change. Bob Daly MD Chest CT 07/24/17 0000 Signed Impressions: Service Date/Time: Monday, July 24, 2017 05:36 - CONCLUSION: 1. Stranding in the subcutaneous tissues about the right flank with fluid adjacent to the latissimus dorsi. Stranding extends up into the right breast. Findings could represent developing cellulitis. 2. In addition, there is now a small right-sided effusion with bilateral dependent atelectatic changes. Jerome Brady MD Abdomen/Pelvis CT 07/24/17 0000 Signed Impressions: Service Date/Time: Monday, July 24, 2017 05:36 - CONCLUSION: 1. CT findings concerning for a right sided cellulitis and developing myositis. There is some asymmetric prominence of the latissimus dorsi muscle on the right. Unorganized fluid in the deep subcutaneous tissues adjacent to the muscle belly. No drainable fluid collection, however. 2. Developing dependent areas of consolidation, right greater than left with an associated small right-sided effusion. Jerome Brady MD Head CT 07/22/17 1253 Signed Impressions: Service Date/Time: Saturday, July 22, 2017 13:26 - CONCLUSION: No acute disease. Derrick Henry MD Objective Remarks GENERAL: Elderly female, lying in bed, on trach collar, resting comfortably, smiling and interacting HEENT: Normocephalic. Atraumatic. Pupils equal, round, reactive, conjugate. NGT in place NECK: Trachea is midline. There is no JVD. Tracheostomy in place no bleeding CHEST: Equal chest rise. On TP. Clear to auscultation bilaterally CARDIOVASCULAR: RRR, nl ABDOMEN: Soft, nontender, nondistended, wound Vac in place on the right flank covering extensive areas of debridement. MUSCULOSKELETAL: Gangrene of 2-4 toes on right, necrotic NEUROLOGICAL: awake, alert, follows commands. no focal deficits. Date of Insertion: Jul 22, 2017 A/P Assessment and Plan Active problems: Septic shock, resolved. Hypothermia- resolved Acute metabolic encephalopathy- resolved Acute kidney injury- resolved Elevated CK- resolved Thrombocytopenia - resolved Chronic hypoxic and hypercarbic respiratory failure Right flank necrotizing fasciitis Pneumonia (HCAP) Anemia requiring transfusion Hypothyroidism Acute protein calorie malnutrition- severe chronic pain secondary to post-surgical debridement and wound Urinary Retention Plan: Neurologic: Neuro checks per ICU protocol. tramadol, oxycodone, morphine prn pain 07/22 CT brain: No acute disease. MRI brain 07/28 Unremarkable Neuro exam much improved and patient following commands GCS 11 T Respiratory: Continue with vent support keep sats >92% Trach collar trials since status post tracheostomy by Dr. Dumont in the OR 08/10/17. Bronchodilators, ICU vent bundle. Cardiovascular: Monitor HR and BP keep MAP>65mmHg. Echo showed EF 50-55% Continue diltiazem 60mg po q6h Renal: strict I & 0's, Avoid nephrotoxins Renal following- . Mary for urinary retention FEN/GI: On Pepcid 10mg BID for GI prophylaxis Resume Tube feeds- Glucerna 1.5 with goal rate 45ml/hr ID: Urine culture and sputum culture from 08/04 and 08/05/2017 growing E. coli and Pseudomonas pansensitive Continue with abx per ID recommendations 07/24, 07/27 Wound cx :MRSA 07/24 BC :NGTD 07/23: urine cx: No growth 07/22 BC: NGTD 08/04 UC: GNR Path report: Abdominal soft tissue excision: Skin and subcutaneous adipose tissue with acute cellulitis and multifocal abscess formation 07/30 Wound vac exchange 07/27 s/p excisional debridement with vac change of torso and abdomen 07/24 s/p wide excisional debridement of soft tissue infection with VAC placement for necrotizing soft tissue infection of abdomen, right hip area right torso area measuring approximately 32 x 18 inches x 2 inches deep. Surgery -Dr. Dumont. Heme: Monitor CBC, transfuse PRBC as needed for goal hgb > 7. Endocrine: Levothyroxine 112 mcg/day resumed TSH:0.08 on 07/24(it was placed on hold) 08/21-repeat TSH level Glucose monitoring per ICU protocol. -- Continue SSI medium scale for glycemic control MSK: Dry gangrene setting in of toes on right- Likely pressors induced ischemia of toes. Seen by vascular surg- no additional vascular work up needed given palpable pulses, Prophylaxis: GI Prophylaxis Famotidine DVT Prophylaxis SCDs. Chemical DVT prophylaxis when cleared by Dr. Dumont-holding due to anemia requiring transfusion Lines: Central line placed on 07/22 DCd 08/05/17. Peripheral IVs 2, may require scales catheter for urinary retention. OVERALL IMPRESSION: very deconditioned. weak. chronic respiratory failure and likely critical illness myopathy. needs long-term acute care facility for weaning. Dispo: Level 2 followup Physician Rachael Johnston MD August 22, 2017 14:50
[2017-08-22] MEDS ORDERED: LEVOTHYROXINE SODIUM 112 MCG TAB PO ONE (15:00)
[2017-08-22] MEDS: CHLOROTHIAZIDE 250 MG TAB PO SCH (15:30)
[2017-08-22] MEDS: DAPTOMYCIN IV SCH (18:00)
[2017-08-22] MEDS: SODIUM CHLORIDE 0.9% IV SCH (18:00)
--- NOTE | 2017-08-22 18:14 | HHI.IDPN ---
Subjective Subjective Remarks Most of the history was obtained by review of medical records. Patient shortly being wheeled out to the operating room for surgical exploration of the site of necrotizing fasciitis Septic shock. Ms. Eldridge is a 62-year-old female who reportedly has developmental delays per chart review. Patient presented to the emergency department via EMS for evaluation of right-sided abdominal, flank and back erythema swelling and pain. Patient's care provider and power of attorney at law listed on the chart is Mr. Felipe Nagy who can be contacted at [phone]. Patient had earlier reported to others that she was feeling unwell for the past 4 weeks. Patient reported increase in her migraine symptoms. Patient also reported continuous, nonradiating sharps times burning pain over the right upper quadrant that is expanded to include her right flank and back. She denies any trauma to these areas. Patient reported to others prior to being intubated that she had nausea and vomiting associated with decreased appetite. Patient also had reported to others that she was dizzy and lightheaded. Per review of records it appears that patient has had multiple falls as well as has had urinary incontinence at baseline with decreased urine output over the last few days. Patient also reported subjective symptoms such as burning with urination. Per EMS, patient was found to be hypotensive. Systolic pressure was recorded in the 70s. She received fluid in transit with minimal improvement. In the emergency department she was found to have significant erythema,pain and edema from approximately the fifth intercostal space down to the eighth or ninth intercostal space wrapping around from the midline in the back all the way around to just medial to the breast. CT scan of the abdomen and pelvis confirms significant subcutaneous edema, but this area of edema appears to be contained by intact fascial planes, particularly in the midline of the back. Laboratory evidence is significant for a white blood cell count of 27k, creatinine is 3.58, potassium 5.4, bicarb of 17.9, anion gap elevated at 15, BUN of 64, an initial lactate of 5.1. In the emergency department she received 3 L of crystalloid IV fluids. Critical care medicine is consulted to evaluate manage her presumed septic shock secondary to severe cellulitis of the trunk. Overnight critical care medicine was consulted for worsening sepsis and septic shock. Patient had to be intubated and upon evaluation was found to have evidence suggestive of necrotizing fasciitis involving similar areas as reported on the emergency room but had progressed beyond the line of demarcation. Patient was noted to have significant blisters and blackening of the areas. Critical care medicine change the regimen to Zosyn IV, vancomycin IV and added clindamycin IV and placed a surgical consult. Patient was evaluated by Dr. Thor Dumont of surgery and patient is being wheeled to the operating room shortly. At the time of my evaluation patient is in the ICU currently on high-dose Levophed as well as vasopressin with slight decrease in Levophed requirement after addition of clindamycin IV. Urine output is low. No diarrhea. No diffuse rash or skin changes other than as described. Delayed entry patient seen at 11 am today. Notes reviewed Discussed with RN: plan for OR for wound vac change. Afebrile BP good Trach site ok. Off Vent. No diarrhea No rash Wound vac in place. Antibiotics Dapto IV Lines Line sites with no e.o infection Past Medical History Anxiety Depression Developmental delays - mental handicap Headaches/migraines Hypothyroidism GERD Chest pain Hx of UTIs Renal insufficiency Bladder incontinence Chronic back pain Thyroid surgery EGD - 08/30/16 Cholecystectomy - 03/04/15 D&C Hysterectomy Colonoscopy - 07/30/16 and 08/11/15 Allergies: Coded Allergies: No Known Allergies (Verified Allergy, Unknown, 07/22/17) Objective . Vital Signs Date Time Temp Pulse Resp B/P (MAP) Pulse Ox O2 Delivery O2 Flow Rate FiO2 08/22/17 08:15 95 Trach Collar 21.00 08/22/17 07:00 95 Trach Collar 08/22/17 06:00 76 08/22/17 04:00 97.5 85 17 127/66 (86) 92 08/22/17 04:00 88 08/22/17 03:00 80 14 112/64 (80) 94 08/22/17 02:00 75 11 111/57 (75) 97 08/22/17 02:00 76 08/22/17 01:01 74 13 101/58 (72) 98 08/22/17 00:00 74 13 108/59 (75) 97 08/22/17 00:00 74 08/21/17 23:00 74 57 102/57 (72) 95 08/21/17 22:00 72 18 109/59 (76) 96 08/21/17 22:00 74 08/21/17 21:01 68 37 114/53 (73) 95 08/21/17 20:33 98 Trach Collar 6.00 21 08/21/17 20:00 98 Trach Collar 08/21/17 20:00 98.0 67 36 97/55 (69) 95 08/21/17 20:00 74 08/22/17 08/22/17 08/23/17 15:00 23:00 07:00 Intake Total 150 ml Output Total 20 ml Balance 130 ml Other 150 ml Estimated Blood Loss 20 ml . Laboratory Tests Test 08/22/17 05:29 White Blood Count 11.0 TH/MM3 Red Blood Count 3.86 MIL/MM3 Hemoglobin 10.5 GM/DL Hematocrit 31.5 % Mean Corpuscular Volume 81.8 FL Mean Corpuscular Hemoglobin 27.2 PG Mean Corpuscular Hemoglobin Concent 33.2 % Red Cell Distribution Width 16.7 % Platelet Count 733 TH/MM3 Mean Platelet Volume 5.1 FL Laboratory Tests Test 08/21/17 07:30 08/22/17 05:29 Thyroid Stimulating Hormone 3rd Gen 83.100 uIU/ML Blood Urea Nitrogen 13 MG/DL Creatinine 0.66 MG/DL Random Glucose 105 MG/DL Total Protein 6.1 GM/DL Albumin 2.0 GM/DL Calcium Level 9.6 MG/DL Phosphorus Level 1.5 MG/DL Magnesium Level 1.6 MG/DL Alkaline Phosphatase 106 U/L Aspartate Amino Transf (AST/SGOT) 41 U/L Alanine Aminotransferase (ALT/SGPT) 48 U/L Total Bilirubin 0.3 MG/DL Sodium Level 131 MEQ/L Potassium Level 4.0 MEQ/L Chloride Level 92 MEQ/L Carbon Dioxide Level 32.9 MEQ/L Anion Gap 6 MEQ/L Estimat Glomerular Filtration Rate 91 ML/MIN Imaging Last Impressions Chest X-Ray 08/15/17 0600 Signed Impressions: Service Date/Time: Tuesday, August 15, 2017 02:15 - CONCLUSION: Stable appearance with no acute cardiopulmonary disease. Kvng Nuñez MD Brain MRI 07/28/17 0000 Signed Impressions: Service Date/Time: Friday, July 28, 2017 14:38 - CONCLUSION: 1. Unremarkable MRI examination the brain. 2. No acute abnormality or interval change. Bob Daly MD Chest CT 07/24/17 0000 Signed Impressions: Service Date/Time: Monday, July 24, 2017 05:36 - CONCLUSION: 1. Stranding in the subcutaneous tissues about the right flank with fluid adjacent to the latissimus dorsi. Stranding extends up into the right breast. Findings could represent developing cellulitis. 2. In addition, there is now a small right-sided effusion with bilateral dependent atelectatic changes. Jerome Brady MD Abdomen/Pelvis CT 07/24/17 0000 Signed Impressions: Service Date/Time: Monday, July 24, 2017 05:36 - CONCLUSION: 1. CT findings concerning for a right sided cellulitis and developing myositis. There is some asymmetric prominence of the latissimus dorsi muscle on the right. Unorganized fluid in the deep subcutaneous tissues adjacent to the muscle belly. No drainable fluid collection, however. 2. Developing dependent areas of consolidation, right greater than left with an associated small right-sided effusion. Jerome Brady MD Head CT 07/22/17 1253 Signed Impressions: Service Date/Time: Saturday, July 22, 2017 13:26 - CONCLUSION: No acute disease. Derrick Henry MD Physical Exam GENERAL: Awake and alert, on the vent, NAD. SKIN: No generalized rash. Dry, cool extremities HEAD: Atraumatic. Normocephalic. No temporal or scalp tenderness. EYES: Pupils equal round and reactive. Extraocular motions intact. No scleral icterus. No injection or drainage. ENT: Intubated. Moist mucosa NECK: Trachea midline. Supple, nontender, no meningeal signs. CARDIOVASCULAR: Heart sounds audible. No murmur appreciated. RESPIRATORY: Clear to auscultation. Breath sounds equal bilaterally. No wheezes , rales, or rhonchi. GASTROINTESTINAL: Abdomen soft. Wound vac area noted. Extensive area covered with wound vac sponge, output serosanguineous. Has a candidal rash in the groin MUSCULOSKELETAL: Extremities without clubbing, cyanosis. Some pedal edema. Ischemic toes R foot 2-4 toes and tip of 5th toe, no change. Cool feet NEUROLOGICAL: Grossly nonfocal Psych calm and cooperative IV line sites with no e.o infection Assessment & Plan Remarks Septic shock with multiorgan dysfunction syndrome, better Sepsis present on admission, better Necrotizing fasciitis of the abdominal wall ? History of multiple falls likely the precipitant. PSAE and Kleb pneumo pneumonia. PSAE and kleb in urine ? contamination as 2 organisms. Acute rhabdomyolysis Acute renal failure: Prerenal, sepsis, rhabdomyolysis Acute metabolic encephalopathy likely sepsis related. Baseline unknown Leukocytosis, persistent - nothing new on C/S; last OR C/S MRSA - could be reactive from last OR Recommendations: Continue Dapto IV (Vanco DELMI 2, clinically still has new areas of erythema and e /o infection outside wound vac margin, acute renal failure) Follow temps Follow CBC Monitor progress Discussed with Ellen Sofia MD August 22, 2017 18:14
[2017-08-23] VITALS (15 sets, daily range): BP systolic 96–107; BP diastolic 53–59; PULSE 79–103; RESP 14–30; TEMP 98–98.3; O2SAT 95–100
[2017-08-23] MEDS: DILTIAZEM HCL 60 MG TAB PO SCH ×5 (00:10→23:59)
[2017-08-23] MEDS: LEVOTHYROXINE SODIUM 112 MCG TAB PO SCH (04:48)
[2017-08-23] MEDS: METOCLOPRAMIDE HCL 10 MG/2 ML VIAL IV SCH ×3 (04:49→20:35)
[2017-08-23] MEDS: FAMOTIDINE 20 MG TAB PO SCH ×2 (09:16→20:35)
[2017-08-23] MEDS: SODIUM CHLORIDE 0.9% FLUSH 10 ML FLUSH IV FLUSH SCH ×2 (09:16→20:36)
[2017-08-23] MEDS: DOCUSATE SODIUM 50 MG/SENNA 8.6 MG TAB PO SCH ×2 (09:16→20:35)
[2017-08-23] MEDS: CHLORHEXIDINE 0.12% (ORAL KIT) 15 ML CUP MT SCH ×2 (09:17→20:36)
[2017-08-23] MEDS: NYSTATIN 100,000 U/GM PWD 15 GM BTL TOPICAL SCH ×2 (09:17→20:36)
[2017-08-23] MEDS: MULTIVITAMIN-OPHTHALMIC 1 TAB PO SCH (09:17)
[2017-08-23] MEDS: CALCIUM/VITAMIN D 250 MG/125 U TAB PO SCH (09:17)
[2017-08-23] MEDS: DOXAZOSIN MESYLATE 2 MG TAB PO SCH (09:17)
[2017-08-23] MEDS: CHLOROTHIAZIDE 250 MG TAB PO SCH (09:18)
[2017-08-23] MEDS: MORPHINE SULFATE 4 MG/ML INJ IV PUSH PRN ×2 (09:50→14:03)
--- NOTE | 2017-08-23 11:42 | MP ---
cc: Tip Dumont MD DATE OF OPERATION: DATE OF PROCEDURE: 08/22/2017. PREOPERATIVE DIAGNOSIS: History of necrotizing soft tissue infection of the right flank, back, hip, abdomen area. POSTOPERATIVE DIAGNOSIS: History of necrotizing soft tissue infection of the right flank, back, hip, abdomen area. PROCEDURE PERFORMED: Change of VAC dressing. SURGEON: Tip Dumont MD DIABETES SPECIALIST: See OR sheet. ANESTHESIA: GETA. IV FLUIDS: See anesthesia sheet. ESTIMATED BLOOD LOSS: 15 mL DRAINS: Hemovac placement. COMPLICATIONS: None. WOUND CLASSIFICATION: Contaminated. FINDINGS: Good hemostasis, good granulation tissue, very minimal fibrinous exudate. HISTORY OF PRESENT ILLNESS: The patient is a 62-year-old female who presents with history of acute necrotizing soft tissue infection requiring wide local debridement. This is the abdomen, right flank, back area. She has undergone subsequent successive multiple VAC changes with debridement and partial closures. She is here to present for a VAC change. DETAILS OF PROCEDURE: The patient was taken to the operating suite, placed in the lateral decubitus position. She was prepped and draped in the usual sterile fashion after induction of general endotracheal anesthesia. Brief timeout was done stating the correct patient, procedure, surgical site, and all were in agreement with this. Attention was first directed to the VAC dressing where neema were removed. The VAC sponge was removed. There was noted to be good granulation tissue and healthy bleeding tissue. The wound looked relatively clean without undrained abscess cavities. Irrigation done, hemostasis obtained with electro Bovie electrocautery. The VAC dressing was obtained. The sponge was cut to size, placed with neema in the wound VAC area. The plastic was placed. The track pad was placed. To suction, no evidence of leaking. The patient tolerated the procedure. No complication. Tip Dumont MD LSN/TL , 11:22 AM , 11:41 AM
--- NOTE | 2017-08-23 12:31 | HHI.HCPN ---
Reason for visit a. To assist with evaluation and management of symptoms including: pain, dyspnea. b. To assist medical decision maker(s) with: better understanding of current medical conditions; weighing benefits/burdens of medical treatment options; making medical treatment decisions. . Subjective/Interval History Patient awakens to voice/exam and smiles. When asked if she is painful, she nods her head -- "yes". When asked where she hurts she moves her lips to say, "all over." Otherwise, somehwhat sleepy and not able to converse. Nursing pain level scores have been 0-5 over the last couple of days. She has received approximately 3 doses of 4 mg IV morphine and no oxycodone over the last 24 hours. Nursing also reports that she is following commands when wakeful. Patient has tolerated trach collar and remained off vent support since . Patient underwent another change of wound vac dressing yesterday. Dr. Dumont noted "good granulation tissue and healthy bleeding tissue" and noted that the "wound looked relatively clean without undrained abscess cavities." No positive cultures since sputum of 08/05/17 showing Pseudomonas and Klebsiella. Remains on daptomycin under direction of ID. . . Family/friend interactions No interactions with family/friends today. . Advance Directives Durable Power of Project Development Leader: Copy in medical record Advance Directive Specifics Date completed: An incomplete (only pages 2 and 3 of a 3 page document were avialable) and it did not specify health care decision making. . Health Care Surrogate(s): Mr. Felipe Nagy was given POA but the POA document did not specify health care decision making. . Documented care wishes: There is no written documentation of health care goals/preferences. . Objective Vital Signs Date Time Temp Pulse Resp B/P (MAP) Pulse Ox O2 Delivery O2 Flow Rate FiO2 08/23/17 10:00 82 08/23/17 08:35 100 T-piece 6.00 21 08/23/17 08:00 91 08/23/17 08:00 98.0 91 25 106/55 (72) 96 08/23/17 07:00 97 Trach Collar 08/23/17 06:00 103 08/23/17 04:00 87 14 102/58 (73) 95 08/23/17 04:00 90 08/23/17 02:00 87 08/23/17 01:00 92 19 107/59 (75) 95 08/23/17 00:00 84 18 102/58 (73) 95 08/23/17 00:00 84 08/22/17 22:00 74 08/22/17 22:00 87 18 97/58 (71) 94 08/22/17 21:00 85 14 95/57 (70) 95 08/22/17 20:15 94 Trach Collar 21 08/22/17 20:00 98 Trach Collar 08/22/17 20:00 97.8 86 17 94/58 (70) 93 08/22/17 20:00 86 08/22/17 16:03 96 43 111/73 (86) 95 Intake & Output 08/23/17 08/23/17 07:00 19:00 Intake Total 558 ml Output Total 800 ml 0 ml Balance -242 ml 0 ml Intake Oral 0 ml Tube Feeding 358 ml Other 200 ml Output Urine Total 300 ml Stool Total 200 ml Tube Feeding Residual Discard 0 ml 0 ml Drainage Total 300 ml . Physical Exam CONSTITUTIONAL/GENERAL: This is a chronically ill-appearing patient. She is on a trach collar in an MICU bed. She awakens to voice/exam and can smile. TUBES/LINES/DRAINS: Wound vac, Peripheral IV; trach collar; urine collection system SKIN: Large right sided wound with wound vac in place. ENT: . Nose without bleeding or purulent drainage. Mucous membranes dry. Trach collar in place. CARDIOVASCULAR: Regular rate and rhythm without murmurs, gallops, or rubs. No JVD. RESPIRATORY/CHEST: Symmetric, unlabored respirations. Lungs clear. GASTROINTESTINAL: Abdomen soft, nondistended. No hepato-splenomegaly, or palpable masses. No guarding. Bowel sounds present. GENITOURINARY: Without palpable bladder distension. MUSCULOSKELETAL: Extremities without clubbing, edema. Right foot toes are all ischemic with necrotic tips except for the great toe. NEUROLOGICAL: Awakens to voice. Nods/shakes head yes/no. She mouths some words in trying to answer questions. Follows simple commands. PSYCHIATRIC: No obvious depression/anxiety. No obvious hallucinations or other psychotic process. . Diagnostic Tests Laboratory Laboratory Tests Test 08/21/17 07:30 08/22/17 05:29 Thyroid Stimulating Hormone 3rd Gen 83.100 uIU/ML (0.358-3.740) White Blood Count 11.0 TH/MM3 (4.0-11.0) Red Blood Count 3.86 MIL/MM3 (4.00-5.30) Hemoglobin 10.5 GM/DL (11.6-15.3) Hematocrit 31.5 % (35.0-46.0) Mean Corpuscular Volume 81.8 FL (80.0-100.0) Mean Corpuscular Hemoglobin 27.2 PG (27.0-34.0) Mean Corpuscular Hemoglobin Concent 33.2 % (32.0-36.0) Red Cell Distribution Width 16.7 % (11.6-17.2) Platelet Count 733 TH/MM3 (150-450) Mean Platelet Volume 5.1 FL (7.0-11.0) Blood Urea Nitrogen 13 MG/DL (7-18) Creatinine 0.66 MG/DL (0.50-1.00) Random Glucose 105 MG/DL (74-106) Total Protein 6.1 GM/DL (6.4-8.2) Albumin 2.0 GM/DL (3.4-5.0) Calcium Level 9.6 MG/DL (8.5-10.1) Phosphorus Level 1.5 MG/DL (2.5-4.9) Magnesium Level 1.6 MG/DL (1.5-2.5) Alkaline Phosphatase 106 U/L (45-117) Aspartate Amino Transf (AST/SGOT) 41 U/L (15-37) Alanine Aminotransferase (ALT/SGPT) 48 U/L (10-53) Total Bilirubin 0.3 MG/DL (0.2-1.0) Sodium Level 131 MEQ/L (136-145) Potassium Level 4.0 MEQ/L (3.5-5.1) Chloride Level 92 MEQ/L (98-107) Carbon Dioxide Level 32.9 MEQ/L (21.0-32.0) Anion Gap 6 MEQ/L (5-15) Estimat Glomerular Filtration Rate 91 ML/MIN (>89) . Result Diagram: 08/22/1729 08/22/17528 Microbiology Microbiology Date/Time Source Procedure Growth Status 08/06/17 00:43 Blood Peripheral Aerobic Blood Culture - Final NO GROWTH IN 5 DAYS Complete 08/06/17 00:43 Blood Peripheral Anaerobic Blood Culture - Final QNS - SEE AEROBE REPORT Complete 08/05/17 05:40 Sputum Endotracheal Gram Stain - Final Complete 08/05/17 05:40 Sputum Culture - Final Pseudomonas Aeruginosa Klebsiella Pneumoniae Complete 08/15/17 00:45 Urine Catheterized Urine Urine Culture - Final NO GROWTH IN 48 HOURS. Complete 07/27/17 15:30 Wound Other Fungal Smear - Final NO FUNGAL ELEMENTS SEEN. Resulted 07/27/17 15:30 Wound Other Fungal Culture - Preliminary NO GROWTH IN 3 WEEKS Resulted . Imaging Last Impressions Chest X-Ray 08/22/17 0600 Signed Impressions: CONCLUSION: No acute cardiopulmonary disease. Brain MRI 07/28/17 0000 Signed Impressions: Service Date/Time: Friday, July 28, 2017 14:38 - CONCLUSION: 1. Unremarkable MRI examination the brain. 2. No acute abnormality or interval change. Bob Daly MD Chest CT 07/24/17 0000 Signed Impressions: Service Date/Time: Monday, July 24, 2017 05:36 - CONCLUSION: 1. Stranding in the subcutaneous tissues about the right flank with fluid adjacent to the latissimus dorsi. Stranding extends up into the right breast. Findings could represent developing cellulitis. 2. In addition, there is now a small right-sided effusion with bilateral dependent atelectatic changes. Jerome Brady MD Abdomen/Pelvis CT 07/24/17 0000 Signed Impressions: Service Date/Time: Monday, July 24, 2017 05:36 - CONCLUSION: 1. CT findings concerning for a right sided cellulitis and developing myositis. There is some asymmetric prominence of the latissimus dorsi muscle on the right. Unorganized fluid in the deep subcutaneous tissues adjacent to the muscle belly. No drainable fluid collection, however. 2. Developing dependent areas of consolidation, right greater than left with an associated small right-sided effusion. Jerome Brady MD Head CT 07/22/17 1253 Signed Impressions: Service Date/Time: Saturday, July 22, 2017 13:26 - CONCLUSION: No acute disease. Derrick Henry MD . Procedures INTUBATION Debridement/wound VAC Second debridement/wound VAC 08/05/17 Third debridement/wound VAC 08/10/17 Tracheostomy 08/10/17 . Assessment and Plan Disease Oriented Problem List: (1) Severe sepsis (2) Abdominal wall cellulitis Comment: Necrotizing fasciitis requiromg multiple debridements and wound vac . (3) Acute kidney injury Comment: Improved (4) DM (diabetes mellitus) Symptom Scale: (1) Dyspnea 0-10 Scale: 0 Comment: Breathing now appears comfortable. Patient off vent support and tolerating trach collar. . (2) Pain 0-10 Scale: Unable to quantify Comment: No known pre-hospitalization pain syndromes. Current sources of pain probably include large wound; prolonged bedbound status; vascular access lines. . Pertinent Non-Medical Issues Psychosocial:developmental delay, Spiritual: Has not belong to any particular gemma group. Per her partner, she has been recently interested in anabaptism oriented audio cassettes Legal: Mr. Nagy brought in part of a POA document signed by the patient; he is the current healthcare proxy since no family could be found Ethical issues impacting care: Patient is incapacitated. . Important Contacts Felipe Nagy reported POA. [phone] . Prognosis 62 year old female with severe sepsis, due to large right sided necrotizing wound + for MRSA. Pt had recurrent hypotension/sepsis and remained encephalopathic. Remarkably, she has shown signs of slow recovery. She is now arousable and able to follow some simple commands and answer some simple questions. Wound is slowly improving. Toes on right, however, remain ischemic. Though she may survive the hospitalization, the shipper prognosis is poor. . . . Code Status: Full Code Plan == Code Status : Full Code == Decision Making: Patient is incapacitated to make her own health care decisions, although she currently is more alert. Patient is reportedly developmentally disabled and baseline cognitive abilities are uncertain. Mr. Nagy had self identified as her "guardian" and "power of consumer attorney." There is only POA paperwork; Mr. Nagy has been a "close personal friend" regularly attending all of her outpatient physician appointments with the patient. Until such time as other family members present themselves or we are given contact information for other surviving family members, Mr. Nagy will remain the legal proxy for health care decisions. ==Goals of medical treatment: Patient never completed an advance directive nor had conversations regarding what she would want or not want if she were to become critically ill like this. Mr. Nagy feels the patient would certainly want to continue fighting at this time. Goals at this time continue to be aggressive. == Symptoms (see symptoms above) * dyspnea: Now managed with trach collar only -- not requiring vent support. The opiates she is getting for pain will also mitigate and subjective sense of dyspnea. No further recommendatons at this time. * pain- Multiple sources of discomfort including -- extensive right sided wound; repeated debridements and wound vac changes; prolonged bedbound status ; etc. Receiving IV morphine with good results. No further recommendations at this time. * Intermittent Agitation - much improved. == Plan * There's been no success in locating any of patient's surviving relatives. * In the meantime, Mr. Nagy will continue to function as the health care proxy as he has demonstrated concern and interest over the years and has appeared to be advocating for her appropriately.... and we have access to no alternatives. == As patient is becoming more alert and interactive, I anticipate we will be able to discuss goals directly with her in near future. It is unclear if her baseline cognitive status would leave her capacitated to make her own health care decisions, but it would be important to try and allow her to have as much say over her health care as possible. == Palliative car will continue to follow to assist with symptom management and to further clarify goals of medical treatment as the clinical course evolves. . . Felipe Carrington MD August 23, 2017 12:31
--- NOTE | 2017-08-23 13:10 | HHI.PR ---
Subjective Subjective Notes Resting in bed with eyes closed Objective Vitals/I&O Vital Signs Date Time Temp Pulse Resp B/P (MAP) Pulse Ox O2 Delivery O2 Flow Rate FiO2 08/23/17 10:00 82 08/23/17 08:35 100 T-piece 6.00 21 08/23/17 08:00 98.0 25 106/55 (72) Labs Date/Time Source Procedure Growth Status 08/06/17 00:43 Blood Peripheral Aerobic Blood Culture - Final NO GROWTH IN 5 DAYS Complete 08/06/17 00:43 Blood Peripheral Anaerobic Blood Culture - Final QNS - SEE AEROBE REPORT Complete 08/05/17 05:40 Sputum Endotracheal Gram Stain - Final Complete 08/05/17 05:40 Sputum Culture - Final Pseudomonas Aeruginosa Klebsiella Pneumoniae Complete 08/15/17 00:45 Urine Catheterized Urine Urine Culture - Final NO GROWTH IN 48 HOURS. Complete 07/27/17 15:30 Wound Other Fungal Smear - Final NO FUNGAL ELEMENTS SEEN. Resulted 07/27/17 15:30 Wound Other Fungal Culture - Preliminary NO GROWTH IN 3 WEEKS Resulted Cardiovascular: Regular Lungs: Clear Abdomen: Other (large Wound Vac over RIGHT abdomen/flank/back with good seal and no leaks ) Narrative Exam necrotic appearing toes of RIGHT foot A/P Problem List: (1) Acute kidney injury ICD Codes: N17.9 - Acute kidney failure, unspecified Status: Acute (2) Severe sepsis ICD Codes: A41.9 - Sepsis, unspecified organism; R65.20 - Severe sepsis without septic shock Status: Acute (3) Dysphagia ICD Codes: R13.10 - Dysphagia, unspecified Status: Resolved (4) HTN (hypertension) ICD Codes: I10 - Essential (primary) hypertension (5) Glaucoma ICD Codes: H40.9 - Unspecified glaucoma (6) Abdominal wall cellulitis ICD Codes: L03.311 - Cellulitis of abdominal wall (7) A-fib ICD Codes: I48.91 - Unspecified atrial fibrillation (8) Hypernatremia ICD Codes: E87.0 - Hyperosmolality and hypernatremia (9) Hypotension ICD Codes: I95.9 - Hypotension, unspecified Status: Resolved (10) Wound, open, trunk (11) Open wound of flank ICD Codes: S31.109A - Unspecified open wound of abdominal wall, unspecified quadrant without penetration into peritoneal cavity, initial encounter (12) Abdominal pain ICD Codes: R10.9 - Abdominal pain Status: Acute (13) GERD (gastroesophageal reflux disease) ICD Codes: K21.9 - Gastroesophageal reflux disease Status: Acute (14) Hypothyroidism ICD Codes: E03.9 - Hypothyroidism Status: Chronic (15) Dyslipidemia ICD Codes: E78.5 - Dyslipidemia Status: Acute (16) Low back pain ICD Codes: M54.5 - Low back pain Status: Acute (17) Diabetes mellitus type 2 with neurological manifestations ICD Codes: E11.40 - Type 2 diabetes mellitus with neurological manifestations Status: Acute (18) Pancreatitis ICD Codes: K85.9 - Pancreatitis Status: Acute (19) Diabetic peripheral neuropathy associated with type 2 diabetes mellitus ICD Codes: E11.42 - Diabetic peripheral neuropathy associated with type 2 diabetes mellitus Status: Acute Assessment and Plan 62 year old female with extensive soft tissue infection -s/p I&D of wound; wound vac placement and trach -Continue tube feeds -Consult to Plastic Surgery for re-evaluation of skin graft Problem Qualifiers (1) Hypotension: Qualified Codes: I95.9 - Hypotension, unspecified Batool Meneses/Rehab Nursing Tech ARNP August 23, 2017 13:10
[2017-08-23] MEDS: SODIUM CHLORIDE 0.9% IV SCH (17:29)
[2017-08-23] MEDS: DAPTOMYCIN IV SCH (17:29)
--- NOTE | 2017-08-23 17:42 | HHI.CCPN ---
Subjective Remarks/Hospital Course This is a 62-year-old female with a history of developmental delay and recurrent urinary tract infections who presents with new onset right-sided abdominal and flank pain. Per the [facility] service admission note this is been going on for approximately 4 weeks. Patient has a history of developmental delay and is difficult to get a complete history from her, no analysis with her on my evaluation. On my evaluation she endorses flank pain radiating around to her chest. She endorses subjective chills. Denies recent fevers to me. Also endorses nausea, vomiting. In the emergency department she was found to have significant erythema, rubor, dolor, and edema from approximately the fifth intercostal space down to the eighth or ninth intercostal space wrapping around from the midline in the back all the way around to just medial to the breast. CT scan of the abdomen and pelvis confirms significant subcutaneous edema, but this area of edema appears to be contained by intact fascial planes, particularly in the midline of the back. Laboratory evidence is significant for a white blood cell count of 27k, creatinine is 3.58, potassium 5.4, bicarb of 17.9, anion gap elevated at 15, BUN of 64, an initial lactate of 5.1. In the emergency department she received 3 L of crystalloid IV fluids. Despite this she is hypotensive with a mean arterial pressure of 51. Critical care medicine is consulted to evaluate manage her presumed septic shock secondary to severe cellulitis of the trunk. I have given her an additional liter of crystalloid and then placed central venous access, see separate procedure note for details. In addition her lactate is starting to clear and is now 2.9 with an more currently pending, however it is not clearing fast enough and she remains oliguric. I placed a Scales for accurate hourly I's and O's. The remainder of the review systems for the patient is negative except documented in the HPI, although this is severely limited by her baseline developmental delay. Subjective 07/23: Patient remains on vasopressors, noted metabolic acidosis, bicarbonate level of 15. Sodium bicarbonate infusion initiated. 07/24 Patient was intubated early this morning now on Vasopressin and Neosyn 300 mics in addition patient is on Amio and Bicarb drips. WBC increased 31. CT abd/pelvis showed right sided cellulites and developing myositis. 07/25 Patient went to OR yesterday s/p wide excisional debridement of soft tissue infection with VAC placement for necrotizing soft tissue infection of abdomen, right hip area right torso area measuring approximately 32 x 18 inches x 2 inches deep. She remains on Vasopressin 0.04 and Neosyn down to 120 mics. On Amio drip. 07/26 No events overnight. Off all pressors, WBC is trending down. On Amio drip. 07/27 Patient remains intubated for return to OR today and wound vac exchange. 07/28 Patient s/p excisional debridement with vac change yesterday intubated and sedated with Fentanyl infusion. 07/29 Patient remains intubated and sedated with Fentanyl and Versed drips. Afebrile. 07/30 No events overnight. Patient remains sedated with Fentanyl drip and intubated. For OR today for further debridement and wound vac exchange. Afebrile. 07/31 Patient went to OR yesterday for vac exchange, Afebrile, WBC is trending down, Intubated and now sedated with Fentanyl and Versed 2mg/hr 08/01: Remains sedated, orally intubated on mechanical ventilation. Scheduled for OR today for vac exchange. 08/02: Remains intubated scheduled for OR again today. Antibiotics per ID. Slight increase in WBC count is 17.2 08/03: s/p Excisional debridement with VAC change yesterday by Dr. Dumont. Tolerating CPAP but not waking up or following commands. Dr. Dumont plans for further wound debridement and VAC change either tomorrow or Monday. Anticipating OR will leave patient intubated. WBC 19.9 today, will discuss with ID 08/04: Remains intubated, intermittently agitated on the vent. Or planned for tomorrow by Dr. Dumont. WBC count is slightly improved today 16.7 08/05: Patient is more critical today with worsening sepsis. T-max 102, WBC count up to 22.6. Hypotensive blood pressure 78/51. I have ordered 1 L normal saline bolus. Pancultured overnight. Zosyn started by Dr. Mcdonald. I will start micafungin also. Will inform ID. Dr. Dumont planning for OR today 08/06: Evaluated by night adult school counselor for persistent worsening hypotension called to bedside to evaluate patient with worsening hypotension. Given 500 cc 5 % albumin 1 without improvement in hypotension. A right subclavian central line was placed and norepinephrine infusion was started for persistent septic shock. Currently map remains above 65, on Levophed at 4 mcg/min. WBC 16.1 slightly improved from yesterday. Hemoglobin has dropped to 7.2 approximately 2 g drop. Transfuse 1 unit of PRBC stat. T-max 100.7, urine culture growing GNR 08/07: Remains sedated, orally intubated on mechanical ventilation. Wound VAC in place. On Levophed 2 mics per minute for hypotension. 08/08: Sedated, orally intubated on mechanical ventilation. Wound VAC remains in place. Tolerating tube feeds. Discussed with Dr. Dumont who is planning to take patient to OR tomorrow for wound VAC change as well as tracheostomy. 08/09: OR today for wound VAC change and tracheostomy. Remains on Levophed at 1 mcg/min. If continued Levophed requirement, right subclavian central line heading towards the left subclavian need to be replaced 08/10: Patient went to OR today for wound vac change and tracheostomy. Had further wound debridement. Profoundly hypothermic. Temperature 92. Warming blanket applied. Send CBC. Discussed with ID. 08/11: Late entry note. Pt seen at 0830. Afebrile. No acute events overnight. Patient currently normothermic, WBC count downtrending. Palpable pulses B/L dorsalis pedis and post tibialis. 08/12 : No acute events. Possible plan for wound VAC replacement tomorrow. Overnight the wound VAC was dislodged Dr. Floyd follow in for wound VAC adjustment. Patient off sedation awake alert mouthing words appropriately. 08/13: doing well. conversant. remains on vent: when PSV support weaned, becomes tachypneic. going to OR tomorrow for washout. afebrile. denies complaints. 08/14: no complaints. scales removed yesterday but has not voided. will start cardura to help with bladder control. to OR today for washout. 08/15: Awake alert on the vent. Will attempt CPAP, and T-piece if tolerated. Plan for OR for washout VAC change again tomorrow 08/16: Continues to improve very slowly. still needing cpap and weaning support as tolerated. needs to be OOB to chair. 08/17: Currently on T-piece breathing comfortably. Dr. Dumont planning on VAC change today again. 08/18: no acute events. required ventilatory support overnight. will again attempt t-piece today. needs aggressive PT/OT. 08/19: No acute events overnight. The patient has remained on T piece overnight. Pain well controlled with morphine every 2 hours. Tube feeds resumed. 08/20: No acute events overnight. The patient remains on trach collar. 08/21: The patient tolerated trach collar throughout the entire night. Currently FiO2 0.28%, O2 saturation 94-95%. Tolerating tube feeds. 08/22: Patient remained on trach collar throughout the night. Patient pleasant conversant denies any distress. Patient remained n.p.o. this morning for wound VAC change in the OR today. 08/23: Late entry note. Patient seen at 6:05 AM. No acute events overnight patient continues on trach collar. Patient status post wound VAC change yesterday in no apparent distress. Pain well controlled. Objective Vital Signs Date Time Temp Pulse Resp B/P (MAP) Pulse Ox O2 Delivery O2 Flow Rate FiO2 08/23/17 16:00 80 08/23/17 16:00 98.3 30 104/57 (73) 95 08/23/17 08:35 T-piece 6.00 21 Intake and Output 08/23/17 08/23/17 08/24/17 08:00 16:00 00:00 Intake Total 558 ml Output Total 800.0 ml Balance -242.0 ml Result Diagram: 08/22/17 0529 08/22/17 0529 Imaging Last Impressions Chest X-Ray 08/15/17 0600 Signed Impressions: Service Date/Time: Tuesday, August 15, 2017 02:15 - CONCLUSION: Stable appearance with no acute cardiopulmonary disease. Kvng Nuñez MD Brain MRI 07/28/17 0000 Signed Impressions: Service Date/Time: Friday, July 28, 2017 14:38 - CONCLUSION: 1. Unremarkable MRI examination the brain. 2. No acute abnormality or interval change. Bob Daly MD Chest CT 07/24/17 0000 Signed Impressions: Service Date/Time: Monday, July 24, 2017 05:36 - CONCLUSION: 1. Stranding in the subcutaneous tissues about the right flank with fluid adjacent to the latissimus dorsi. Stranding extends up into the right breast. Findings could represent developing cellulitis. 2. In addition, there is now a small right-sided effusion with bilateral dependent atelectatic changes. Jerome Brady MD Abdomen/Pelvis CT 07/24/17 0000 Signed Impressions: Service Date/Time: Monday, July 24, 2017 05:36 - CONCLUSION: 1. CT findings concerning for a right sided cellulitis and developing myositis. There is some asymmetric prominence of the latissimus dorsi muscle on the right. Unorganized fluid in the deep subcutaneous tissues adjacent to the muscle belly. No drainable fluid collection, however. 2. Developing dependent areas of consolidation, right greater than left with an associated small right-sided effusion. Jerome Brady MD Head CT 07/22/17 1253 Signed Impressions: Service Date/Time: Saturday, July 22, 2017 13:26 - CONCLUSION: No acute disease. Derrick Henry MD Last Impressions Chest X-Ray 07/30/17 0000 Signed Impressions: Service Date/Time: Sunday, July 30, 2017 08:14 - CONCLUSION: Underinflation with atelectasis at the lung bases. Otherwise, no acute finding is seen given the technique. Derrick García MD Brain MRI 07/28/17 0000 Signed Impressions: Service Date/Time: Friday, July 28, 2017 14:38 - CONCLUSION: 1. Unremarkable MRI examination the brain. 2. No acute abnormality or interval change. Bob Daly MD Chest CT 07/24/17 0000 Signed Impressions: Service Date/Time: Monday, July 24, 2017 05:36 - CONCLUSION: 1. Stranding in the subcutaneous tissues about the right flank with fluid adjacent to the latissimus dorsi. Stranding extends up into the right breast. Findings could represent developing cellulitis. 2. In addition, there is now a small right-sided effusion with bilateral dependent atelectatic changes. Jerome Brady MD Abdomen/Pelvis CT 07/24/17 0000 Signed Impressions: Service Date/Time: Monday, July 24, 2017 05:36 - CONCLUSION: 1. CT findings concerning for a right sided cellulitis and developing myositis. There is some asymmetric prominence of the latissimus dorsi muscle on the right. Unorganized fluid in the deep subcutaneous tissues adjacent to the muscle belly. No drainable fluid collection, however. 2. Developing dependent areas of consolidation, right greater than left with an associated small right-sided effusion. Jerome Brady MD Head CT 07/22/17 1253 Signed Impressions: Service Date/Time: Saturday, July 22, 2017 13:26 - CONCLUSION: No acute disease. Derrick Henry MD Objective Remarks GENERAL: Elderly female, lying in bed, on trach collar, resting comfortably in no apparent distress HEENT: Normocephalic. Atraumatic. Pupils equal, round, reactive, conjugate. NGT in place NECK: Trachea is midline. There is no JVD. Tracheostomy in place no bleeding CHEST: Equal chest rise. On TP. Clear to auscultation bilaterally CARDIOVASCULAR: RRR, nl ABDOMEN: Soft, nontender, nondistended, wound Vac in place on the right flank covering extensive areas of debridement. MUSCULOSKELETAL: Gangrene of 2-4 toes on right, necrotic NEUROLOGICAL: awake, alert, follows commands. no focal deficits. Date of Insertion: Jul 22, 2017 A/P Assessment and Plan Active problems: Septic shock, resolved. Hypothermia- resolved Acute metabolic encephalopathy- resolved Acute kidney injury- resolved Elevated CK- resolved Thrombocytopenia - resolved Chronic hypoxic and hypercarbic respiratory failure Right flank necrotizing fasciitis Pneumonia (HCAP) Anemia requiring transfusion Hypothyroidism Acute protein calorie malnutrition- severe chronic pain secondary to post-surgical debridement and wound Urinary Retention Plan: Neurologic: Neuro checks per ICU protocol. tramadol, oxycodone, morphine prn pain 07/22 CT brain: No acute disease. MRI brain 07/28 Unremarkable Neuro exam much improved and patient following commands GCS 11 T Respiratory: Continue with vent support keep sats >92% Trach collar trials since status post tracheostomy by Dr. Dumont in the OR 08/10/17. Bronchodilators, ICU vent bundle. Cardiovascular: Monitor HR and BP keep MAP>65mmHg. Echo showed EF 50-55% Continue diltiazem 60mg po q6h Renal: strict I & 0's, Avoid nephrotoxins Renal following- Dr.Patel. Hernandez for urinary retention FEN/GI: On Pepcid 10mg BID for GI prophylaxis Resume Tube feeds- Glucerna 1.5 with goal rate 45ml/hr ID: Urine culture and sputum culture from 08/04 and 08/05/2017 growing E. coli and Pseudomonas pansensitive Continue with abx per ID recommendations 07/24, 07/27 Wound cx :MRSA 07/24 BC :NGTD 07/23: urine cx: No growth 07/22 BC: NGTD 08/04 UC: GNR Path report: Abdominal soft tissue excision: Skin and subcutaneous adipose tissue with acute cellulitis and multifocal abscess formation 07/30 Wound vac exchange 07/27 s/p excisional debridement with vac change of torso and abdomen 07/24 s/p wide excisional debridement of soft tissue infection with VAC placement for necrotizing soft tissue infection of abdomen, right hip area right torso area measuring approximately 32 x 18 inches x 2 inches deep. Surgery -Dr. Dumont. Heme: Monitor CBC, transfuse PRBC as needed for goal hgb > 7. Endocrine: Levothyroxine 112 mcg/day resumed TSH:0.08 on 07/24(it was placed on hold) 08/21-repeat TSH level Glucose monitoring per ICU protocol. -- Continue SSI medium scale for glycemic control MSK: Dry gangrene setting in of toes on right- Likely pressors induced ischemia of toes. Seen by vascular surg- no additional vascular work up needed given palpable pulses, Prophylaxis: GI Prophylaxis Famotidine DVT Prophylaxis SCDs. Chemical DVT prophylaxis when cleared by Dr. Dumont-holding due to anemia requiring transfusion Lines: Central line placed on 07/22 DCd 08/05/17. Peripheral IVs 2, may require scales catheter for urinary retention. OVERALL IMPRESSION: very deconditioned. weak. chronic respiratory failure and likely critical illness myopathy. needs long-term acute care facility for weaning. Dispo: Level 2 followup Physician Rachael Johnston MD August 23, 2017 17:42
[2017-08-23] MEDS: LACTULOSE SYRUP 20 GM/30 ML CUP PO PRN (20:35)
[2017-08-24] VITALS (14 sets, daily range): BP systolic 89–108; BP diastolic 52–60; PULSE 74–97; RESP 15–21; TEMP 97.9–98.7; O2SAT 95–99
[2017-08-24] MEDS: METOCLOPRAMIDE HCL 10 MG/2 ML VIAL IV SCH ×3 (05:55→20:17)
[2017-08-24] MEDS: DILTIAZEM HCL 60 MG TAB PO SCH ×4 (05:55→18:00)
[2017-08-24] MEDS: LEVOTHYROXINE SODIUM 112 MCG TAB PO SCH (05:55)
--- NOTE | 2017-08-24 06:50 | HHI.CCPN ---
Subjective Remarks/Hospital Course This is a 62-year-old female with a history of developmental delay and recurrent urinary tract infections who presents with new onset right-sided abdominal and flank pain. Per the [facility] service admission note this is been going on for approximately 4 weeks. Patient has a history of developmental delay and is difficult to get a complete history from her, no analysis with her on my evaluation. On my evaluation she endorses flank pain radiating around to her chest. She endorses subjective chills. Denies recent fevers to me. Also endorses nausea, vomiting. In the emergency department she was found to have significant erythema, rubor, dolor, and edema from approximately the fifth intercostal space down to the eighth or ninth intercostal space wrapping around from the midline in the back all the way around to just medial to the breast. CT scan of the abdomen and pelvis confirms significant subcutaneous edema, but this area of edema appears to be contained by intact fascial planes, particularly in the midline of the back. Laboratory evidence is significant for a white blood cell count of 27k, creatinine is 3.58, potassium 5.4, bicarb of 17.9, anion gap elevated at 15, BUN of 64, an initial lactate of 5.1. In the emergency department she received 3 L of crystalloid IV fluids. Despite this she is hypotensive with a mean arterial pressure of 51. Critical care medicine is consulted to evaluate manage her presumed septic shock secondary to severe cellulitis of the trunk. I have given her an additional liter of crystalloid and then placed central venous access, see separate procedure note for details. In addition her lactate is starting to clear and is now 2.9 with an more currently pending, however it is not clearing fast enough and she remains oliguric. I placed a Scales for accurate hourly I's and O's. The remainder of the review systems for the patient is negative except documented in the HPI, although this is severely limited by her baseline developmental delay. Subjective 07/23: Patient remains on vasopressors, noted metabolic acidosis, bicarbonate level of 15. Sodium bicarbonate infusion initiated. 07/24 Patient was intubated early this morning now on Vasopressin and Neosyn 300 mics in addition patient is on Amio and Bicarb drips. WBC increased 31. CT abd/pelvis showed right sided cellulites and developing myositis. 07/25 Patient went to OR yesterday s/p wide excisional debridement of soft tissue infection with VAC placement for necrotizing soft tissue infection of abdomen, right hip area right torso area measuring approximately 32 x 18 inches x 2 inches deep. She remains on Vasopressin 0.04 and Neosyn down to 120 mics. On Amio drip. 07/26 No events overnight. Off all pressors, WBC is trending down. On Amio drip. 07/27 Patient remains intubated for return to OR today and wound vac exchange. 07/28 Patient s/p excisional debridement with vac change yesterday intubated and sedated with Fentanyl infusion. 07/29 Patient remains intubated and sedated with Fentanyl and Versed drips. Afebrile. 07/30 No events overnight. Patient remains sedated with Fentanyl drip and intubated. For OR today for further debridement and wound vac exchange. Afebrile. 07/31 Patient went to OR yesterday for vac exchange, Afebrile, WBC is trending down, Intubated and now sedated with Fentanyl and Versed 2mg/hr 08/01: Remains sedated, orally intubated on mechanical ventilation. Scheduled for OR today for vac exchange. 08/02: Remains intubated scheduled for OR again today. Antibiotics per ID. Slight increase in WBC count is 17.2 08/03: s/p Excisional debridement with VAC change yesterday by Dr. Dumont. Tolerating CPAP but not waking up or following commands. Dr. Dumont plans for further wound debridement and VAC change either tomorrow or Monday. Anticipating OR will leave patient intubated. WBC 19.9 today, will discuss with ID 08/04: Remains intubated, intermittently agitated on the vent. Or planned for tomorrow by Dr. Dumont. WBC count is slightly improved today 16.7 08/05: Patient is more critical today with worsening sepsis. T-max 102, WBC count up to 22.6. Hypotensive blood pressure 78/51. I have ordered 1 L normal saline bolus. Pancultured overnight. Zosyn started by Dr. Mcdonald. I will start micafungin also. Will inform ID. Dr. Dumont planning for OR today 08/06: Evaluated by night professor of theater for persistent worsening hypotension called to bedside to evaluate patient with worsening hypotension. Given 500 cc 5 % albumin 1 without improvement in hypotension. A right subclavian central line was placed and norepinephrine infusion was started for persistent septic shock. Currently map remains above 65, on Levophed at 4 mcg/min. WBC 16.1 slightly improved from yesterday. Hemoglobin has dropped to 7.2 approximately 2 g drop. Transfuse 1 unit of PRBC stat. T-max 100.7, urine culture growing GNR 08/07: Remains sedated, orally intubated on mechanical ventilation. Wound VAC in place. On Levophed 2 mics per minute for hypotension. 08/08: Sedated, orally intubated on mechanical ventilation. Wound VAC remains in place. Tolerating tube feeds. Discussed with Dr. Dumont who is planning to take patient to OR tomorrow for wound VAC change as well as tracheostomy. 08/09: OR today for wound VAC change and tracheostomy. Remains on Levophed at 1 mcg/min. If continued Levophed requirement, right subclavian central line heading towards the left subclavian need to be replaced 08/10: Patient went to OR today for wound vac change and tracheostomy. Had further wound debridement. Profoundly hypothermic. Temperature 92. Warming blanket applied. Send CBC. Discussed with ID. 08/11: Late entry note. Pt seen at 0830. Afebrile. No acute events overnight. Patient currently normothermic, WBC count downtrending. Palpable pulses B/L dorsalis pedis and post tibialis. 08/12 : No acute events. Possible plan for wound VAC replacement tomorrow. Overnight the wound VAC was dislodged Dr. Floyd follow in for wound VAC adjustment. Patient off sedation awake alert mouthing words appropriately. 08/13: doing well. conversant. remains on vent: when PSV support weaned, becomes tachypneic. going to OR tomorrow for washout. afebrile. denies complaints. 08/14: no complaints. scales removed yesterday but has not voided. will start cardura to help with bladder control. to OR today for washout. 08/15: Awake alert on the vent. Will attempt CPAP, and T-piece if tolerated. Plan for OR for washout VAC change again tomorrow 08/16: Continues to improve very slowly. still needing cpap and weaning support as tolerated. needs to be OOB to chair. 08/17: Currently on T-piece breathing comfortably. Dr. Dumont planning on VAC change today again. 08/18: no acute events. required ventilatory support overnight. will again attempt t-piece today. needs aggressive PT/OT. 08/19: No acute events overnight. The patient has remained on T piece overnight. Pain well controlled with morphine every 2 hours. Tube feeds resumed. 08/20: No acute events overnight. The patient remains on trach collar. 08/21: The patient tolerated trach collar throughout the entire night. Currently FiO2 0.28%, O2 saturation 94-95%. Tolerating tube feeds. 08/22: Patient remained on trach collar throughout the night. Patient pleasant conversant denies any distress. Patient remained n.p.o. this morning for wound VAC change in the OR today. 08/23: Late entry note. Patient seen at 6:05 AM. No acute events overnight patient continues on trach collar. Patient status post wound VAC change yesterday in no apparent distress. Pain well controlled. 08/24: No acute events overnight. Patient continues on trach collar at an FiO2 of 26%. Patient continues to have liquid stool, fecal containment device in place. Patient awaiting [facility]. Objective Vital Signs Date Time Temp Pulse Resp B/P (MAP) Pulse Ox O2 Delivery O2 Flow Rate FiO2 08/24/17 06:00 74 08/24/17 04:00 17 106/57 (73) 97 08/24/17 00:00 97.9 08/23/17 20:00 Trach Collar 08/23/17 19:41 21 08/23/17 08:35 6.00 Intake and Output 08/24/17 08/24/17 08/25/17 08:00 16:00 00:00 Intake Total 742 ml Output Total 850 ml Balance -108 ml Result Diagram: 08/22/17 0529 08/22/17 0529 Imaging Last Impressions Chest X-Ray 08/15/17 0600 Signed Impressions: Service Date/Time: Tuesday, August 15, 2017 02:15 - CONCLUSION: Stable appearance with no acute cardiopulmonary disease. Kvng Nuñez MD Brain MRI 07/28/17 0000 Signed Impressions: Service Date/Time: Friday, July 28, 2017 14:38 - CONCLUSION: 1. Unremarkable MRI examination the brain. 2. No acute abnormality or interval change. Bob Daly MD Chest CT 07/24/17 0000 Signed Impressions: Service Date/Time: Monday, July 24, 2017 05:36 - CONCLUSION: 1. Stranding in the subcutaneous tissues about the right flank with fluid adjacent to the latissimus dorsi. Stranding extends up into the right breast. Findings could represent developing cellulitis. 2. In addition, there is now a small right-sided effusion with bilateral dependent atelectatic changes. Jerome Brady MD Abdomen/Pelvis CT 07/24/17 0000 Signed Impressions: Service Date/Time: Monday, July 24, 2017 05:36 - CONCLUSION: 1. CT findings concerning for a right sided cellulitis and developing myositis. There is some asymmetric prominence of the latissimus dorsi muscle on the right. Unorganized fluid in the deep subcutaneous tissues adjacent to the muscle belly. No drainable fluid collection, however. 2. Developing dependent areas of consolidation, right greater than left with an associated small right-sided effusion. Jerome Brady MD Head CT 07/22/17 1253 Signed Impressions: Service Date/Time: Saturday, July 22, 2017 13:26 - CONCLUSION: No acute disease. Derrick Henry MD Last Impressions Chest X-Ray 07/30/17 0000 Signed Impressions: Service Date/Time: Sunday, July 30, 2017 08:14 - CONCLUSION: Underinflation with atelectasis at the lung bases. Otherwise, no acute finding is seen given the technique. Derrick García MD Brain MRI 07/28/17 0000 Signed Impressions: Service Date/Time: Friday, July 28, 2017 14:38 - CONCLUSION: 1. Unremarkable MRI examination the brain. 2. No acute abnormality or interval change. Bob Daly MD Chest CT 07/24/17 0000 Signed Impressions: Service Date/Time: Monday, July 24, 2017 05:36 - CONCLUSION: 1. Stranding in the subcutaneous tissues about the right flank with fluid adjacent to the latissimus dorsi. Stranding extends up into the right breast. Findings could represent developing cellulitis. 2. In addition, there is now a small right-sided effusion with bilateral dependent atelectatic changes. Jerome Brady MD Abdomen/Pelvis CT 07/24/17 0000 Signed Impressions: Service Date/Time: Monday, July 24, 2017 05:36 - CONCLUSION: 1. CT findings concerning for a right sided cellulitis and developing myositis. There is some asymmetric prominence of the latissimus dorsi muscle on the right. Unorganized fluid in the deep subcutaneous tissues adjacent to the muscle belly. No drainable fluid collection, however. 2. Developing dependent areas of consolidation, right greater than left with an associated small right-sided effusion. Jerome Brady MD Head CT 07/22/17 1253 Signed Impressions: Service Date/Time: Saturday, July 22, 2017 13:26 - CONCLUSION: No acute disease. Derrick Henry MD Objective Remarks GENERAL: Elderly female, lying in bed, on trach collar, sleeping easily arousable ,in no apparent distress HEENT: Normocephalic. Atraumatic. Pupils equal, round, reactive, conjugate. NGT in place NECK: Trachea is midline. There is no JVD. Tracheostomy in place no bleeding CHEST: Equal chest rise. On TP. Clear to auscultation bilaterally CARDIOVASCULAR: RRR, nl ABDOMEN: Soft, nontender, nondistended, wound Vac in place on the right flank covering extensive areas of debridement. MUSCULOSKELETAL: Gangrene of 2-4 toes on right, necrotic NEUROLOGICAL: awake, alert, follows commands. no focal deficits. Date of Insertion: Jul 22, 2017 A/P Assessment and Plan Active problems: Septic shock, resolved. Hypothermia- resolved Acute metabolic encephalopathy- resolved Acute kidney injury- resolved Elevated CK- resolved Thrombocytopenia - resolved Chronic hypoxic and hypercarbic respiratory failure Right flank necrotizing fasciitis Pneumonia (HCAP) Anemia requiring transfusion Hypothyroidism Acute protein calorie malnutrition- severe chronic pain secondary to post-surgical debridement and wound Urinary Retention Plan: Neurologic: Neuro checks per ICU protocol. tramadol, oxycodone, morphine prn pain 07/22 CT brain: No acute disease. MRI brain 07/28 Unremarkable Neuro exam much improved and patient following commands GCS 11 T Respiratory: Continue with vent support keep sats >92% Trach collar trials since status post tracheostomy by Dr. Dumont in the OR 08/10/17. Bronchodilators, ICU vent bundle. Cardiovascular: Monitor HR and BP keep MAP>65mmHg. Echo showed EF 50-55% Diltiazem 60mg po q6h Renal: strict I & 0's, Avoid nephrotoxins Renal following- . Mary for urinary retention FEN/GI: On Pepcid 10mg BID for GI prophylaxis Continue Tube feeds- Glucerna 1.5 with goal rate 45ml/hr ID: Urine culture and sputum culture from 08/04 and 08/05/2017 growing E. coli and Pseudomonas pansensitive Continue with abx per ID recommendations 07/24, 07/27 Wound cx :MRSA 07/24 BC :NGTD 07/23: urine cx: No growth 07/22 BC: NGTD 08/04 UC: GNR Path report: Abdominal soft tissue excision: Skin and subcutaneous adipose tissue with acute cellulitis and multifocal abscess formation 07/30 Wound vac exchange 07/27 s/p excisional debridement with vac change of torso and abdomen 07/24 s/p wide excisional debridement of soft tissue infection with VAC placement for necrotizing soft tissue infection of abdomen, right hip area right torso area measuring approximately 32 x 18 inches x 2 inches deep. Surgery -Dr. Dumont. Heme: Monitor CBC, transfuse PRBC as needed for goal hgb > 7. Endocrine: Levothyroxine 112 mcg/day resumed on 08/22. TSH > 8.0, TSH:0.08 on 07/24(it was placed on hold) 08/21-repeat TSH level Glucose monitoring per ICU protocol. -- Continue SSI medium scale for glycemic control MSK: Dry gangrene setting in of toes on right- Likely pressors induced ischemia of toes. Seen by vascular surg- no additional vascular work up needed given palpable pulses, Prophylaxis: GI Prophylaxis Famotidine DVT Prophylaxis SCDs. Chemical DVT prophylaxis when cleared by Dr. Dumont-holding due to anemia requiring transfusion Lines: Central line placed on 07/22 DCd 08/05/17. Peripheral IVs 2, may require scales catheter for urinary retention. OVERALL IMPRESSION: very deconditioned. weak. chronic respiratory failure and likely critical illness myopathy. needs long-term acute care facility for weaning. Dispo: Level 2 followup Physician Rachael Johnston MD August 24, 2017 06:50
[2017-08-24] MEDS: MORPHINE SULFATE 4 MG/ML INJ IV PUSH PRN (09:21)
[2017-08-24] MEDS: DOXAZOSIN MESYLATE 2 MG TAB PO SCH (09:24)
[2017-08-24] MEDS: CHLOROTHIAZIDE 250 MG TAB PO SCH (09:24)
[2017-08-24] MEDS: FAMOTIDINE 20 MG TAB PO SCH ×2 (09:24→20:16)
[2017-08-24] MEDS: MULTIVITAMIN-OPHTHALMIC 1 TAB PO SCH (09:24)
[2017-08-24] MEDS: NYSTATIN 100,000 U/GM PWD 15 GM BTL TOPICAL SCH ×2 (09:24→20:17)
[2017-08-24] MEDS: CALCIUM/VITAMIN D 250 MG/125 U TAB PO SCH (09:25)
[2017-08-24] MEDS: SODIUM CHLORIDE 0.9% FLUSH 10 ML FLUSH IV FLUSH SCH ×2 (09:25→20:17)
[2017-08-24] MEDS: CHLORHEXIDINE 0.12% (ORAL KIT) 15 ML CUP MT SCH ×2 (09:25→20:00)
[2017-08-24] MEDS: DOCUSATE SODIUM 50 MG/SENNA 8.6 MG TAB PO SCH ×2 (09:25→20:16)
--- NOTE | 2017-08-24 11:48 | HHI.PR ---
Subjective Subjective Notes Resting in bed on T piece Painful---just received pain medications from [facility] Objective Vitals/I&O Vital Signs Date Time Temp Pulse Resp B/P (MAP) Pulse Ox O2 Delivery O2 Flow Rate FiO2 08/24/17 10:00 92 08/24/17 08:00 98.3 19 108/60 (76) 97 08/24/17 07:00 Trach Collar 08/23/17 19:41 21 08/23/17 08:35 6.00 Labs Date/Time Source Procedure Growth Status 08/06/17 00:43 Blood Peripheral Aerobic Blood Culture - Final NO GROWTH IN 5 DAYS Complete 08/06/17 00:43 Blood Peripheral Anaerobic Blood Culture - Final QNS - SEE AEROBE REPORT Complete 08/05/17 05:40 Sputum Endotracheal Gram Stain - Final Complete 08/05/17 05:40 Sputum Culture - Final Pseudomonas Aeruginosa Klebsiella Pneumoniae Complete 08/15/17 00:45 Urine Catheterized Urine Urine Culture - Final NO GROWTH IN 48 HOURS. Complete 07/27/17 15:30 Wound Other Fungal Smear - Final NO FUNGAL ELEMENTS SEEN. Resulted 07/27/17 15:30 Wound Other Fungal Culture - Preliminary NO GROWTH IN 3 WEEKS Resulted Cardiovascular: Regular Lungs: Clear Abdomen: Other (large Wound Vac over RIGHT abdomen/RIGHT flank/RIGHT back with good seal ) Extremities: Other Narrative Exam necrotic appearing toes of RIGHT foot A/P Problem List: (1) Acute kidney injury ICD Codes: N17.9 - Acute kidney failure, unspecified Status: Acute (2) Severe sepsis ICD Codes: A41.9 - Sepsis, unspecified organism; R65.20 - Severe sepsis without septic shock Status: Acute (3) Dysphagia ICD Codes: R13.10 - Dysphagia, unspecified Status: Resolved (4) HTN (hypertension) ICD Codes: I10 - Essential (primary) hypertension (5) Glaucoma ICD Codes: H40.9 - Unspecified glaucoma (6) Abdominal wall cellulitis ICD Codes: L03.311 - Cellulitis of abdominal wall (7) A-fib ICD Codes: I48.91 - Unspecified atrial fibrillation (8) Hypernatremia ICD Codes: E87.0 - Hyperosmolality and hypernatremia (9) Hypotension ICD Codes: I95.9 - Hypotension, unspecified Status: Resolved (10) Wound, open, trunk (11) Open wound of flank ICD Codes: S31.109A - Unspecified open wound of abdominal wall, unspecified quadrant without penetration into peritoneal cavity, initial encounter (12) Abdominal pain ICD Codes: R10.9 - Abdominal pain Status: Acute (13) GERD (gastroesophageal reflux disease) ICD Codes: K21.9 - Gastroesophageal reflux disease Status: Acute (14) Hypothyroidism ICD Codes: E03.9 - Hypothyroidism Status: Chronic (15) Dyslipidemia ICD Codes: E78.5 - Dyslipidemia Status: Acute (16) Low back pain ICD Codes: M54.5 - Low back pain Status: Acute (17) Diabetes mellitus type 2 with neurological manifestations ICD Codes: E11.40 - Type 2 diabetes mellitus with neurological manifestations Status: Acute (18) Pancreatitis ICD Codes: K85.9 - Pancreatitis Status: Acute (19) Diabetic peripheral neuropathy associated with type 2 diabetes mellitus ICD Codes: E11.42 - Diabetic peripheral neuropathy associated with type 2 diabetes mellitus Status: Acute Assessment and Plan 62 year old female with extensive soft tissue infection -s/p I&D of wound; wound vac placement and trach -Continue tube feeds -Consult to Plastic Surgery for re-evaluation of skin graft - working on bed placement at [facility] ---if bed becomes available okay to DC from GS standpoint Problem Qualifiers (1) Hypotension: Qualified Codes: I95.9 - Hypotension, unspecified Batool Meneses/[employer] MEIR August 24, 2017 11:48
--- NOTE | 2017-08-24 15:50 | HHI.HCPN ---
Reason for visit a. To assist with evaluation and management of symptoms including: pain, dyspnea. b. To assist medical decision maker(s) with: better understanding of current medical conditions; weighing benefits/burdens of medical treatment options; making medical treatment decisions. . Subjective/Interval History Patient was given a dose of IV morphine not long before my visit this AM and she is quite lethargic. I am hoping to see her when she is most alert to see if she is able to participate in her own decision making at all. Nurse tells me that a sister visited. No contact information was left. No significant change overnight. Nursing pain level scores up to 8 today. Bedside nurse reported that she complained of abdominal pain earlier. She has received approximately 3 doses of 4 mg IV morphine and no oxycodone over the last 24 hours. Patient has tolerated trach collar and remained off vent support since . No new lab No positive cultures since sputum of 08/05/17 showing Pseudomonas and Klebsiella. Remains on daptomycin under direction of ID. CXR 08/22/17 unremarkable. . . . Family/friend interactions Sister apparently visited today. Will try and get contact information. . Advance Directives Durable Power of Bicycle Ii Assembler: Copy in medical record Advance Directive Specifics Date completed: An incomplete (only pages 2 and 3 of a 3 page document were avialable) and it did not specify health care decision making. . Health Care Surrogate(s): Mr. Felipe Nagy was given POA but the POA document did not specify health care decision making. . Documented care wishes: There is no written documentation of health care goals/preferences. . Objective Vital Signs Date Time Temp Pulse Resp B/P (MAP) Pulse Ox O2 Delivery O2 Flow Rate FiO2 08/24/17 14:00 89 08/24/17 13:06 98 Trach Collar 21 08/24/17 12:00 86 08/24/17 12:00 98.0 86 15 97/52 (67) 96 08/24/17 10:00 92 08/24/17 08:00 94 08/24/17 08:00 98.3 94 19 108/60 (76) 97 08/24/17 07:00 97 Trach Collar 08/24/17 06:00 74 08/24/17 04:00 89 17 106/57 (73) 97 08/24/17 04:00 88 08/24/17 02:00 89 08/24/17 00:00 90 08/24/17 00:00 97.9 87 16 101/58 (72) 95 08/23/17 22:00 97 08/23/17 20:00 82 08/23/17 20:00 94 Trach Collar 08/23/17 20:00 98.0 79 19 98/53 (68) 96 08/23/17 19:41 96 Trach Collar 21 08/23/17 18:00 80 08/23/17 16:00 80 08/23/17 16:00 98.3 80 30 104/57 (73) 95 Intake & Output 08/24/17 08/24/17 07:00 19:00 Intake Total 742 ml Output Total 850 ml 0 ml Balance -108 ml 0 ml Intake Oral 0 ml Tube Feeding 542 ml Other 200 ml Output Urine Total 350 ml Stool Total 300 ml Tube Feeding Residual Discard 0 ml 0 ml Drainage Total 200 ml . Physical Exam CONSTITUTIONAL/GENERAL: This is a chronically ill-appearing patient. She is on a trach collar in an MICU bed. Lethargic after receiving opiates. TUBES/LINES/DRAINS: Wound vac, Peripheral IV; trach collar; urine collection system SKIN: Large right sided wound with wound vac in place. ENT: . Nose without bleeding or purulent drainage. Mucous membranes dry. Trach collar in place. CARDIOVASCULAR: Regular rate and rhythm without murmurs, gallops, or rubs. No JVD. RESPIRATORY/CHEST: Symmetric, unlabored respirations. Lungs clear. GASTROINTESTINAL: Abdomen soft, nondistended. No hepato-splenomegaly, or palpable masses. No guarding. Bowel sounds present. GENITOURINARY: Without palpable bladder distension. MUSCULOSKELETAL: Extremities without clubbing, edema. Right foot toes are all ischemic with necrotic tips except for the great toe. NEUROLOGICAL: Lethargic after opiates. Does not awaken for me. PSYCHIATRIC: Unable to assess today due to sleepiness from opiates. . Diagnostic Tests Laboratory Laboratory Tests Test 08/22/17 05:29 White Blood Count 11.0 TH/MM3 (4.0-11.0) Red Blood Count 3.86 MIL/MM3 (4.00-5.30) Hemoglobin 10.5 GM/DL (11.6-15.3) Hematocrit 31.5 % (35.0-46.0) Mean Corpuscular Volume 81.8 FL (80.0-100.0) Mean Corpuscular Hemoglobin 27.2 PG (27.0-34.0) Mean Corpuscular Hemoglobin Concent 33.2 % (32.0-36.0) Red Cell Distribution Width 16.7 % (11.6-17.2) Platelet Count 733 TH/MM3 (150-450) Mean Platelet Volume 5.1 FL (7.0-11.0) Blood Urea Nitrogen 13 MG/DL (7-18) Creatinine 0.66 MG/DL (0.50-1.00) Random Glucose 105 MG/DL (74-106) Total Protein 6.1 GM/DL (6.4-8.2) Albumin 2.0 GM/DL (3.4-5.0) Calcium Level 9.6 MG/DL (8.5-10.1) Phosphorus Level 1.5 MG/DL (2.5-4.9) Magnesium Level 1.6 MG/DL (1.5-2.5) Alkaline Phosphatase 106 U/L (45-117) Aspartate Amino Transf (AST/SGOT) 41 U/L (15-37) Alanine Aminotransferase (ALT/SGPT) 48 U/L (10-53) Total Bilirubin 0.3 MG/DL (0.2-1.0) Sodium Level 131 MEQ/L (136-145) Potassium Level 4.0 MEQ/L (3.5-5.1) Chloride Level 92 MEQ/L (98-107) Carbon Dioxide Level 32.9 MEQ/L (21.0-32.0) Anion Gap 6 MEQ/L (5-15) Estimat Glomerular Filtration Rate 91 ML/MIN (>89) . Result Diagram: 08/22/1752808/22/17528 Microbiology Microbiology Date/Time Source Procedure Growth Status 08/06/17 00:43 Blood Peripheral Aerobic Blood Culture - Final NO GROWTH IN 5 DAYS Complete 08/06/17 00:43 Blood Peripheral Anaerobic Blood Culture - Final QNS - SEE AEROBE REPORT Complete 08/05/17 05:40 Sputum Endotracheal Gram Stain - Final Complete 08/05/17 05:40 Sputum Culture - Final Pseudomonas Aeruginosa Klebsiella Pneumoniae Complete 08/15/17 00:45 Urine Catheterized Urine Urine Culture - Final NO GROWTH IN 48 HOURS. Complete 07/27/17 15:30 Wound Other Fungal Smear - Final NO FUNGAL ELEMENTS SEEN. Complete 07/27/17 15:30 Wound Other Fungal Culture - Final NO GROWTH IN 4 WEEKS Complete . Imaging Last Impressions Chest X-Ray 08/22/17 0600 Signed Impressions: CONCLUSION: No acute cardiopulmonary disease. Brain MRI 07/28/17 0000 Signed Impressions: Service Date/Time: Friday, July 28, 2017 14:38 - CONCLUSION: 1. Unremarkable MRI examination the brain. 2. No acute abnormality or interval change. Bob Daly MD Chest CT 07/24/17 0000 Signed Impressions: Service Date/Time: Monday, July 24, 2017 05:36 - CONCLUSION: 1. Stranding in the subcutaneous tissues about the right flank with fluid adjacent to the latissimus dorsi. Stranding extends up into the right breast. Findings could represent developing cellulitis. 2. In addition, there is now a small right-sided effusion with bilateral dependent atelectatic changes. Jerome Brady MD Abdomen/Pelvis CT 07/24/17 0000 Signed Impressions: Service Date/Time: Monday, July 24, 2017 05:36 - CONCLUSION: 1. CT findings concerning for a right sided cellulitis and developing myositis. There is some asymmetric prominence of the latissimus dorsi muscle on the right. Unorganized fluid in the deep subcutaneous tissues adjacent to the muscle belly. No drainable fluid collection, however. 2. Developing dependent areas of consolidation, right greater than left with an associated small right-sided effusion. Jerome Brady MD Head CT 07/22/17 1253 Signed Impressions: Service Date/Time: Saturday, July 22, 2017 13:26 - CONCLUSION: No acute disease. Derrick Henry MD . Procedures INTUBATION Debridement/wound VAC Second debridement/wound VAC 08/05/17 Third debridement/wound VAC 08/10/17 Tracheostomy 08/10/17 . Assessment and Plan Disease Oriented Problem List: (1) Severe sepsis (2) Abdominal wall cellulitis Comment: Necrotizing fasciitis requiromg multiple debridements and wound vac . (3) Acute kidney injury Comment: Improved (4) DM (diabetes mellitus) Symptom Scale: (1) Dyspnea 0-10 Scale: 0 Comment: Breathing now appears comfortable. Patient off vent support and tolerating trach collar. . (2) Pain 0-10 Scale: Unable to quantify Comment: No known pre-hospitalization pain syndromes. Current sources of pain probably include large wound; prolonged bedbound status; vascular access lines. . Pertinent Non-Medical Issues Psychosocial:developmental delay, Spiritual: Has not belong to any particular gem[employer] group. Per her partner, she has been recently interested in catholic oriented audio cassettes Legal: Mr. Nayg brought in part of a POA document signed by the patient; he is the current healthcare proxy since no family could be found (though there are recent reports that a sister has visited) Ethical issues impacting care: Patient is incapacitated. . Important Contacts Felipe Nagy reported POA. [phone] . Prognosis 62 year old female with severe sepsis, due to large right sided necrotizing wound + for MRSA. Pt had recurrent hypotension/sepsis and remained encephalopathic. Remarkably, she has shown signs of slow recovery. She is now arousable and able to follow some simple commands and answer some simple questions. Wound is slowly improving. Toes on right, however, remain ischemic. Though she may survive the hospitalization, the detention prognosis is poor. She is very debilitated with high probability of major setbacks including pneumonia, wound infections, etc. . . . Code Status: Full Code Plan == Code Status : Full Code == Decision Making: Patient is incapacitated to make her own health care decisions, although she currently is more alert. Patient is reportedly developmentally disabled and baseline cognitive abilities are uncertain. Mr. Nagy had self identified as her "guardian" and "power of mortgage assistant." There is only POA paperwork; Mr. Nagy has been a "close personal friend" regularly attending all of her outpatient physician appointments with the patient. Until such time as other family members present themselves or we are given contact information for other surviving family members, Mr. Nagy will remain the legal proxy for health care decisions. A "sister" reportedly visited on 08/24/17 and we will try and get contact information the next time she comes. ==Goals of medical treatment: Patient never completed an advance directive nor had conversations regarding what she would want or not want if she were to become critically ill like this. Mr. Nagy feels the patient would certainly want to continue fighting at this time. Goals at this time continue to be aggressive. == Symptoms (see symptoms above) * dyspnea: Now managed with trach collar only -- not requiring vent support. The opiates she is getting for pain will also mitigate and subjective sense of dyspnea. No further recommendations at this time. * pain- Multiple sources of discomfort including -- extensive right sided wound; repeated debridements and wound vac changes; prolonged bedbound status ; etc. Receiving IV morphine with good results. No further recommendations at this time. * Intermittent Agitation - much improved. == Plan * We will try and get contact information from the visitor who identified herself as a sister. * In the meantime, Mr. Nagy will continue to function as the health care proxy as he has demonstrated concern and interest over the years and has appeared to be advocating for her appropriately.... and we have access to no alternatives. == As patient is becoming more alert and interactive, I anticipate we will be able to discuss goals directly with her in near future. It is unclear if her baseline cognitive status would leave her capacitated to make her own health care decisions, but it would be important to try and allow her to have as much say over her health care as possible. Will continue to try and visit and find a time when is more alert. == Palliative care will continue to follow to assist with symptom management and to further clarify goals of medical treatment as the clinical course evolves. . . Attestation To help prompt me to consider important information that might be impacting today's encounter and assessment, information from prior notes written by myself or my colleagues may have been "brought forward" into today's note. My signature on this note, however, is an attestation that I personally performed the exam, history, and/or decision-making noted today, and, unless otherwise indicated, the interactions with patient, family, and staff as well as the review of records all occurred today. I also attest that the listed assessment and stated plan reflect my best clinical judgment today based on the combination of historical information, prior notes, and today's exam/ interactions. When time spent is documented, it refers only to time spent today by the signer, or if indicated, combined time spent today by collaborating physician/nurse practitioner. . Felipe Carrington MD August 24, 2017 15:50
[2017-08-24] MEDS: SODIUM CHLORIDE 0.9% IV SCH (17:58)
[2017-08-24] MEDS: DAPTOMYCIN IV SCH (17:58)
[2017-08-25] VITALS (9 sets, daily range): BP systolic 93–113; BP diastolic 52–63; PULSE 90–105; RESP 18–71; TEMP 98.7–99.3; O2SAT 96–100
[2017-08-25] MEDS: MORPHINE SULFATE 4 MG/ML INJ IV PUSH PRN (03:19)
[2017-08-25] MEDS: METOCLOPRAMIDE HCL 10 MG/2 ML VIAL IV SCH ×2 (05:00→13:10)
[2017-08-25 05:27] LABS: HEMATOCRIT 28.8 % (35.0-46.0); HEMOGLOBIN 9.4 GM/DL (11.6-15.3); MEAN CELL VOLUME 82.9 FL (80.0-100.0); MEAN CORPUSCULAR HEMOGLOBIN 26.9 PG (27.0-34.0); MEAN CORPUSCULAR HGB CONC 32.5 % (32.0-36.0); MEAN PLATELET VOLUME 5.3 FL (7.0-11.0); PLATELET COUNT 447 TH/MM3 (150-450); RED BLOOD COUNT 3.47 MIL/MM3 (4.00-5.30); RED CELL DISTRIBUTION WIDTH 17.4 % (11.6-17.2)
[2017-08-25 05:59] LABS: ALBUMIN 1.7 GM/DL (3.4-5.0); AST (GOT) 25 U/L (15-37); BICARBONATE 26.7 MEQ/L (21.0-32.0); BLOOD UREA NITROGEN 17 MG/DL (7-18); CALCIUM 9.3 MG/DL (8.5-10.1); CHLORIDE 99 MEQ/L (98-107); CREATININE 0.76 MG/DL (0.50-1.00); GLOMERULAR FILTRATION RATE 77 ML/MIN (>89); GLUCOSE,RANDOM 142 MG/DL (74-106); MAGNESIUM 1.6 MG/DL (1.5-2.5); SODIUM (NA) 137 MEQ/L (136-145)
[2017-08-25 06:00] LABS: ALT (GPT) 30 U/L (10-53); PHOSPHORUS 1.8 MG/DL (2.5-4.9)
[2017-08-25] MEDS: LEVOTHYROXINE SODIUM 112 MCG TAB PO SCH (06:00)
[2017-08-25] MEDS: DILTIAZEM HCL 60 MG TAB PO SCH ×3 (06:00→12:00)
[2017-08-25 06:02] LABS: ALKALINE PHOSPHATASE 102 U/L (45-117); TOTAL BILIRUBIN ADULT 0.2 MG/DL (0.2-1.0); TOTAL PROTEIN 5.7 GM/DL (6.4-8.2)
--- NOTE | 2017-08-25 06:11 | RADRPT ---
EXAM DATE: 08/25/2017 5:16 AM EDT AGE/SEX: 62 years / Female INDICATIONS: Shortness of breath. CLINICAL DATA: This is the patient's subsequent encounter. Patient reports that signs and symptoms h ave been present for 1 week and indicates a pain score of Nonresponsive. MEDICAL/SURGICAL HISTORY: None. None. [place] [facility] [place]. . FINDINGS: Tracheostomy in good position. NG tube coiled in stomach. Minimal basilar subsegmental airspace disea se, probably atelectasis. No effusion or pneumothorax. CONCLUSION: Minimal basilar atelectasis. No effusion or pneumothorax. Electronically signed by: Thomas King MD 08/25/2017 6:10 AM EDT
--- NOTE | 2017-08-25 08:39 | HHI.CCPN ---
Subjective Remarks/Hospital Course This is a 62-year-old female with a history of developmental delay and recurrent urinary tract infections who presents with new onset right-sided abdominal and flank pain. Per the [facility] admission note this is been going on for approximately 4 weeks. Patient has a history of developmental delay and is difficult to get a complete history from her, no analysis with her on my evaluation. On my evaluation she endorses flank pain radiating around to her chest. She endorses subjective chills. Denies recent fevers to me. Also endorses nausea, vomiting. In the emergency department she was found to have significant erythema, rubor, dolor, and edema from approximately the fifth intercostal space down to the eighth or ninth intercostal space wrapping around from the midline in the back all the way around to just medial to the breast. CT scan of the abdomen and pelvis confirms significant subcutaneous edema, but this area of edema appears to be contained by intact fascial planes, particularly in the midline of the back. Laboratory evidence is significant for a white blood cell count of 27k, creatinine is 3.58, potassium 5.4, bicarb of 17.9, anion gap elevated at 15, BUN of 64, an initial lactate of 5.1. In the emergency department she received 3 L of crystalloid IV fluids. Despite this she is hypotensive with a mean arterial pressure of 51. Critical care medicine is consulted to evaluate manage her presumed septic shock secondary to severe cellulitis of the trunk. I have given her an additional liter of crystalloid and then placed central venous access, see separate procedure note for details. In addition her lactate is starting to clear and is now 2.9 with an more currently pending, however it is not clearing fast enough and she remains oliguric. I placed a Scales for accurate hourly I's and O's. The remainder of the review systems for the patient is negative except documented in the HPI, although this is severely limited by her baseline developmental delay. Subjective 07/23: Patient remains on vasopressors, noted metabolic acidosis, bicarbonate level of 15. Sodium bicarbonate infusion initiated. 07/24 Patient was intubated early this morning now on Vasopressin and Neosyn 300 mics in addition patient is on Amio and Bicarb drips. WBC increased 31. CT abd/pelvis showed right sided cellulites and developing myositis. 07/25 Patient went to OR yesterday s/p wide excisional debridement of soft tissue infection with VAC placement for necrotizing soft tissue infection of abdomen, right hip area right torso area measuring approximately 32 x 18 inches x 2 inches deep. She remains on Vasopressin 0.04 and Neosyn down to 120 mics. On Amio drip. 07/26 No events overnight. Off all pressors, WBC is trending down. On Amio drip. 07/27 Patient remains intubated for return to OR today and wound vac exchange. 07/28 Patient s/p excisional debridement with vac change yesterday intubated and sedated with Fentanyl infusion. 07/29 Patient remains intubated and sedated with Fentanyl and Versed drips. Afebrile. 07/30 No events overnight. Patient remains sedated with Fentanyl drip and intubated. For OR today for further debridement and wound vac exchange. Afebrile. 07/31 Patient went to OR yesterday for vac exchange, Afebrile, WBC is trending down, Intubated and now sedated with Fentanyl and Versed 2mg/hr 08/01: Remains sedated, orally intubated on mechanical ventilation. Scheduled for OR today for vac exchange. 08/02: Remains intubated scheduled for OR again today. Antibiotics per ID. Slight increase in WBC count is 17.2 08/03: s/p Excisional debridement with VAC change yesterday by Dr. Dumont. Tolerating CPAP but not waking up or following commands. Dr. Dumont plans for further wound debridement and VAC change either tomorrow or Monday. Anticipating OR will leave patient intubated. WBC 19.9 today, will discuss with ID 08/04: Remains intubated, intermittently agitated on the vent. Or planned for tomorrow by Dr. Dumont. WBC count is slightly improved today 16.7 08/05: Patient is more critical today with worsening sepsis. T-max 102, WBC count up to 22.6. Hypotensive blood pressure 78/51. I have ordered 1 L normal saline bolus. Pancultured overnight. Zosyn started by Dr. Mcdonald. I will start micafungin also. Will inform ID. Dr. Dumont planning for OR today 08/06: Evaluated by night ship ceiler for persistent worsening hypotension called to bedside to evaluate patient with worsening hypotension. Given 500 cc 5 % albumin 1 without improvement in hypotension. A right subclavian central line was placed and norepinephrine infusion was started for persistent septic shock. Currently map remains above 65, on Levophed at 4 mcg/min. WBC 16.1 slightly improved from yesterday. Hemoglobin has dropped to 7.2 approximately 2 g drop. Transfuse 1 unit of PRBC stat. T-max 100.7, urine culture growing GNR 08/07: Remains sedated, orally intubated on mechanical ventilation. Wound VAC in place. On Levophed 2 mics per minute for hypotension. 08/08: Sedated, orally intubated on mechanical ventilation. Wound VAC remains in place. Tolerating tube feeds. Discussed with Dr. Dumont who is planning to take patient to OR tomorrow for wound VAC change as well as tracheostomy. 08/09: OR today for wound VAC change and tracheostomy. Remains on Levophed at 1 mcg/min. If continued Levophed requirement, right subclavian central line heading towards the left subclavian need to be replaced 08/10: Patient went to OR today for wound vac change and tracheostomy. Had further wound debridement. Profoundly hypothermic. Temperature 92. Warming blanket applied. Send CBC. Discussed with ID. 08/11: Late entry note. Pt seen at 0830. Afebrile. No acute events overnight. Patient currently normothermic, WBC count downtrending. Palpable pulses B/L dorsalis pedis and post tibialis. 08/12 : No acute events. Possible plan for wound VAC replacement tomorrow. Overnight the wound VAC was dislodged Dr. Floyd follow in for wound VAC adjustment. Patient off sedation awake alert mouthing words appropriately. 08/13: doing well. conversant. remains on vent: when PSV support weaned, becomes tachypneic. going to OR tomorrow for washout. afebrile. denies complaints. 08/14: no complaints. scales removed yesterday but has not voided. will start cardura to help with bladder control. to OR today for washout. 08/15: Awake alert on the vent. Will attempt CPAP, and T-piece if tolerated. Plan for OR for washout VAC change again tomorrow 08/16: Continues to improve very slowly. still needing cpap and weaning support as tolerated. needs to be OOB to chair. 08/17: Currently on T-piece breathing comfortably. Dr. Dumont planning on VAC change today again. 08/18: no acute events. required ventilatory support overnight. will again attempt t-piece today. needs aggressive PT/OT. 08/19: No acute events overnight. The patient has remained on T piece overnight. Pain well controlled with morphine every 2 hours. Tube feeds resumed. 08/20: No acute events overnight. The patient remains on trach collar. 08/21: The patient tolerated trach collar throughout the entire night. Currently FiO2 0.28%, O2 saturation 94-95%. Tolerating tube feeds. 08/22: Patient remained on trach collar throughout the night. Patient pleasant conversant denies any distress. Patient remained n.p.o. this morning for wound VAC change in the OR today. 08/23: Late entry note. Patient seen at 6:05 AM. No acute events overnight patient continues on trach collar. Patient status post wound VAC change yesterday in no apparent distress. Pain well controlled. 08/24: No acute events overnight. Patient continues on trach collar at an FiO2 of 26%. Patient continues to have liquid stool, fecal containment device in place. Patient awaiting [facility]. 08/25: T-max 99.3. Noticed slight increase in WBC count. Blood and sputum cultures ordered. Patient noted to have phosphorus , 30 mmol being repleted. Patient alert and oriented interactive continue to tolerates trach collar. No changes in the right distal foot posterior tibial pulses palpated. Objective Vital Signs Date Time Temp Pulse Resp B/P (MAP) Pulse Ox O2 Delivery O2 Flow Rate FiO2 08/25/17 07:00 100 Trach Collar 08/25/17 06:00 100 08/25/17 04:00 99.3 18 110/63 (79) 08/24/17 21:25 21 08/23/17 08:35 6.00 Intake and Output 08/25/17 08/25/17 08/26/17 08:00 16:00 00:00 Intake Total 1235 ml Output Total 875 ml Balance 360 ml Result Diagram: 08/25/17 0513 08/25/17 0513 Imaging Last Impressions Chest X-Ray 08/15/17 0600 Signed Impressions: Service Date/Time: Tuesday, August 15, 2017 02:15 - CONCLUSION: Stable appearance with no acute cardiopulmonary disease. Kvng Nuñez MD Brain MRI 07/28/17 0000 Signed Impressions: Service Date/Time: Friday, July 28, 2017 14:38 - CONCLUSION: 1. Unremarkable MRI examination the brain. 2. No acute abnormality or interval change. Bob Daly MD Chest CT 07/24/17 0000 Signed Impressions: Service Date/Time: Monday, July 24, 2017 05:36 - CONCLUSION: 1. Stranding in the subcutaneous tissues about the right flank with fluid adjacent to the latissimus dorsi. Stranding extends up into the right breast. Findings could represent developing cellulitis. 2. In addition, there is now a small right-sided effusion with bilateral dependent atelectatic changes. Jerome Brady MD Abdomen/Pelvis CT 07/24/17 0000 Signed Impressions: Service Date/Time: Monday, July 24, 2017 05:36 - CONCLUSION: 1. CT findings concerning for a right sided cellulitis and developing myositis. There is some asymmetric prominence of the latissimus dorsi muscle on the right. Unorganized fluid in the deep subcutaneous tissues adjacent to the muscle belly. No drainable fluid collection, however. 2. Developing dependent areas of consolidation, right greater than left with an associated small right-sided effusion. Jerome Brady MD Head CT 07/22/17 1253 Signed Impressions: Service Date/Time: Saturday, July 22, 2017 13:26 - CONCLUSION: No acute disease. Derrick Henry MD Last Impressions Chest X-Ray 07/30/17 0000 Signed Impressions: Service Date/Time: Sunday, July 30, 2017 08:14 - CONCLUSION: Underinflation with atelectasis at the lung bases. Otherwise, no acute finding is seen given the technique. Derrick García MD Brain MRI 07/28/17 0000 Signed Impressions: Service Date/Time: Friday, July 28, 2017 14:38 - CONCLUSION: 1. Unremarkable MRI examination the brain. 2. No acute abnormality or interval change. Bob Daly MD Chest CT 07/24/17 0000 Signed Impressions: Service Date/Time: Monday, July 24, 2017 05:36 - CONCLUSION: 1. Stranding in the subcutaneous tissues about the right flank with fluid adjacent to the latissimus dorsi. Stranding extends up into the right breast. Findings could represent developing cellulitis. 2. In addition, there is now a small right-sided effusion with bilateral dependent atelectatic changes. Jerome Brady MD Abdomen/Pelvis CT 07/24/17 0000 Signed Impressions: Service Date/Time: Monday, July 24, 2017 05:36 - CONCLUSION: 1. CT findings concerning for a right sided cellulitis and developing myositis. There is some asymmetric prominence of the latissimus dorsi muscle on the right. Unorganized fluid in the deep subcutaneous tissues adjacent to the muscle belly. No drainable fluid collection, however. 2. Developing dependent areas of consolidation, right greater than left with an associated small right-sided effusion. Jerome Brady MD Head CT 07/22/17 1253 Signed Impressions: Service Date/Time: Saturday, July 22, 2017 13:26 - CONCLUSION: No acute disease. Derrick Henry MD Objective Remarks GENERAL: Elderly female, lying in bed, on trach collar, sleeping easily arousable ,in no apparent distress HEENT: Normocephalic. Atraumatic. Pupils equal, round, reactive, conjugate. NGT in place NECK: Trachea is midline. There is no JVD. Tracheostomy in place no bleeding CHEST: Equal chest rise. On TP. Clear to auscultation bilaterally CARDIOVASCULAR: RRR, nl ABDOMEN: Soft, nontender, nondistended, wound Vac in place on the right flank covering extensive areas of debridement. MUSCULOSKELETAL: Gangrene of 2-4 toes on right, necrotic NEUROLOGICAL: awake, alert, follows commands. no focal deficits. Date of Insertion: Jul 22, 2017 A/P Assessment and Plan Active problems: Septic shock, resolved. Hypothermia- resolved Acute metabolic encephalopathy- resolved Acute kidney injury- resolved Elevated CK- resolved Thrombocytopenia - resolved Chronic hypoxic and hypercarbic respiratory failure Right flank necrotizing fasciitis Pneumonia (HCAP) Anemia requiring transfusion Hypothyroidism Acute protein calorie malnutrition- severe chronic pain secondary to post-surgical debridement and wound Urinary Retention Plan: Neurologic: Neuro checks per ICU protocol. tramadol, oxycodone, morphine prn pain 07/22 CT brain: No acute disease. MRI brain 07/28 Unremarkable Neuro exam much improved and patient following commands GCS 11 T Respiratory: Continue with vent support keep sats >92% Trach collar trials since status post tracheostomy by Dr. Dumont in the OR 08/10/17. Bronchodilators, ICU vent bundle. Cardiovascular: Monitor HR and BP keep MAP>65mmHg. Echo showed EF 50-55% Diltiazem 60mg po q6h Renal: strict I & 0's, Avoid nephrotoxins Renal following- . Mary for urinary retention FEN/GI: On Pepcid 10mg BID for GI prophylaxis Continue Tube feeds- Glucerna 1.5 with goal rate 45ml/hr ID: Urine culture and sputum culture from 08/04 and 08/05/2017 growing E. coli and Pseudomonas pansensitive Continue with abx per ID recommendations 07/24, 07/27 Wound cx :MRSA 07/24 BC :NGTD 07/23: urine cx: No growth 07/22 BC: NGTD 08/04 UC: GNR Path report: Abdominal soft tissue excision: Skin and subcutaneous adipose tissue with acute cellulitis and multifocal abscess formation 07/30 Wound vac exchange 07/27 s/p excisional debridement with vac change of torso and abdomen 07/24 s/p wide excisional debridement of soft tissue infection with VAC placement for necrotizing soft tissue infection of abdomen, right hip area right torso area measuring approximately 32 x 18 inches x 2 inches deep. Surgery -Dr. Dumont. Heme: Leukocytosis Monitor CBC, transfuse PRBC as needed for goal hgb > 7. Endocrine: Levothyroxine 112 mcg/day resumed on 08/22. TSH > 8.0, TSH:0.08 on 07/24(it was placed on hold) Repeat TSH level in 1 week 08/31 and adjust levothyroxine accordingly 08/21-repeat TSH level Glucose monitoring per ICU protocol. -- Continue SSI medium scale for glycemic control MSK: Dry gangrene setting in of toes on right- Likely pressors induced ischemia of toes. Seen by vascular surg- no additional vascular work up needed given palpable pulses 08/25-Discussed with Dr. Garcia-no further interventions Prophylaxis: GI Prophylaxis Famotidine DVT Prophylaxis SCDs. Lines: Central line placed on 07/22 DCd 08/05/17. Peripheral IVs 2, OVERALL IMPRESSION: very deconditioned. weak. chronic respiratory failure and likely critical illness myopathy. needs long-term acute care facility for weaning. Dispo: Level 2 followup Physician Rachael Johnston MD Aug 25, 2017 08:39
[2017-08-25] MEDS: NYSTATIN 100,000 U/GM PWD 15 GM BTL TOPICAL SCH (09:00)
[2017-08-25] MEDS: DOCUSATE SODIUM 50 MG/SENNA 8.6 MG TAB PO SCH (09:00)
[2017-08-25] MEDS: DOXAZOSIN MESYLATE 2 MG TAB PO SCH (09:45)
[2017-08-25] MEDS: FAMOTIDINE 20 MG TAB PO SCH (09:45)
[2017-08-25] MEDS: CALCIUM/VITAMIN D 250 MG/125 U TAB PO SCH (09:45)
[2017-08-25] MEDS: CHLOROTHIAZIDE 250 MG TAB PO SCH (09:45)
[2017-08-25] MEDS: MULTIVITAMIN-OPHTHALMIC 1 TAB PO SCH (09:45)
[2017-08-25] MEDS: CHLORHEXIDINE 0.12% (ORAL KIT) 15 ML CUP MT SCH (09:46)
[2017-08-25] MEDS: SODIUM CHLORIDE 0.9% FLUSH 10 ML FLUSH IV FLUSH SCH (09:46)
--- NOTE | 2017-08-25 11:06 | HHI.IDPN ---
Subjective Subjective Remarks Most of the history was obtained by review of medical records. Patient shortly being wheeled out to the operating room for surgical exploration of the site of necrotizing fasciitis Septic shock. Ms. Eldridge is a 62-year-old female who reportedly has developmental delays per chart review. Patient presented to the emergency department via EMS for evaluation of right-sided abdominal, flank and back erythema swelling and pain. Patient's care provider and power of naval architect specialist listed on the chart is Mr. Felipe Nagy who can be contacted at [phone]. Patient had earlier reported to others that she was feeling unwell for the past 4 weeks. Patient reported increase in her migraine symptoms. Patient also reported continuous, nonradiating sharps times burning pain over the right upper quadrant that is expanded to include her right flank and back. She denies any trauma to these areas. Patient reported to others prior to being intubated that she had nausea and vomiting associated with decreased appetite. Patient also had reported to others that she was dizzy and lightheaded. Per review of records it appears that patient has had multiple falls as well as has had urinary incontinence at baseline with decreased urine output over the last few days. Patient also reported subjective symptoms such as burning with urination. Per EMS, patient was found to be hypotensive. Systolic pressure was recorded in the 70s. She received fluid in transit with minimal improvement. In the emergency department she was found to have significant erythema,pain and edema from approximately the fifth intercostal space down to the eighth or ninth intercostal space wrapping around from the midline in the back all the way around to just medial to the breast. CT scan of the abdomen and pelvis confirms significant subcutaneous edema, but this area of edema appears to be contained by intact fascial planes, particularly in the midline of the back. Laboratory evidence is significant for a white blood cell count of 27k, creatinine is 3.58, potassium 5.4, bicarb of 17.9, anion gap elevated at 15, BUN of 64, an initial lactate of 5.1. In the emergency department she received 3 L of crystalloid IV fluids. Critical care medicine is consulted to evaluate manage her presumed septic shock secondary to severe cellulitis of the trunk. Overnight critical care medicine was consulted for worsening sepsis and septic shock. Patient had to be intubated and upon evaluation was found to have evidence suggestive of necrotizing fasciitis involving similar areas as reported on the emergency room but had progressed beyond the line of demarcation. Patient was noted to have significant blisters and blackening of the areas. Critical care medicine change the regimen to Zosyn IV, vancomycin IV and added clindamycin IV and placed a surgical consult. Patient was evaluated by Dr. Thor Dumont of surgery and patient is being wheeled to the operating room shortly. At the time of my evaluation patient is in the ICU currently on high-dose Levophed as well as vasopressin with slight decrease in Levophed requirement after addition of clindamycin IV. Urine output is low. No diarrhea. No diffuse rash or skin changes other than as described. Notes reviewed Afebrile BP good Trach site ok. Off Vent. Not much secretions. CXR negative. No diarrhea No rash Wound vac in place. Antibiotics Dapto IV Lines Line sites with no e.o infection Past Medical History Anxiety Depression Developmental delays - mental handicap Headaches/migraines Hypothyroidism GERD Chest pain Hx of UTIs Renal insufficiency Bladder incontinence Chronic back pain Thyroid surgery EGD - 08/30/16 Cholecystectomy - 03/04/15 D&C Hysterectomy Colonoscopy - 07/30/16 and 08/11/15 Allergies: Coded Allergies: No Known Allergies (Verified Allergy, Unknown, 07/22/17) Objective . Vital Signs Date Time Temp Pulse Resp B/P (MAP) Pulse Ox O2 Delivery O2 Flow Rate FiO2 08/25/17 09:09 96 Trach Collar 6.00 21 08/25/17 07:00 100 Trach Collar 08/25/17 06:00 100 08/25/17 04:00 94 08/25/17 04:00 99.3 96 18 110/63 (79) 97 08/25/17 03:24 16 08/25/17 02:00 92 08/25/17 00:00 91 08/25/17 00:00 98.7 90 71 109/61 (77) 96 08/24/17 22:00 87 08/24/17 21:25 98 Trach Collar 21 08/24/17 20:00 98.7 97 21 98/58 (71) 97 08/24/17 19:02 99 Trach Collar 08/24/17 18:00 94 08/24/17 16:00 98.5 90 15 89/52 (64) 99 08/24/17 16:00 90 08/24/17 14:00 89 08/24/17 13:06 98 Trach Collar 21 08/24/17 12:00 86 08/24/17 12:00 98.0 86 15 97/52 (67) 96 . Laboratory Tests Test 08/25/17 05:13 White Blood Count 14.0 TH/MM3 Red Blood Count 3.47 MIL/MM3 Hemoglobin 9.4 GM/DL Hematocrit 28.8 % Mean Corpuscular Volume 82.9 FL Mean Corpuscular Hemoglobin 26.9 PG Mean Corpuscular Hemoglobin Concent 32.5 % Red Cell Distribution Width 17.4 % Platelet Count 447 TH/MM3 Mean Platelet Volume 5.3 FL Laboratory Tests Test 08/25/17 05:13 Blood Urea Nitrogen 17 MG/DL Creatinine 0.76 MG/DL Random Glucose 142 MG/DL Total Protein 5.7 GM/DL Albumin 1.7 GM/DL Calcium Level 9.3 MG/DL Phosphorus Level 1.8 MG/DL Magnesium Level 1.6 MG/DL Alkaline Phosphatase 102 U/L Aspartate Amino Transf (AST/SGOT) 25 U/L Alanine Aminotransferase (ALT/SGPT) 30 U/L Total Bilirubin 0.2 MG/DL Sodium Level 137 MEQ/L Potassium Level 4.0 MEQ/L Chloride Level 99 MEQ/L Carbon Dioxide Level 26.7 MEQ/L Anion Gap 11 MEQ/L Estimat Glomerular Filtration Rate 77 ML/MIN Imaging Last Impressions Chest X-Ray 08/15/17 0600 Signed Impressions: Service Date/Time: Tuesday, August 15, 2017 02:15 - CONCLUSION: Stable appearance with no acute cardiopulmonary disease. Kvng Nuñez MD Brain MRI 07/28/17 0000 Signed Impressions: Service Date/Time: Friday, July 28, 2017 14:38 - CONCLUSION: 1. Unremarkable MRI examination the brain. 2. No acute abnormality or interval change. Bob Daly MD Chest CT 07/24/17 0000 Signed Impressions: Service Date/Time: Monday, July 24, 2017 05:36 - CONCLUSION: 1. Stranding in the subcutaneous tissues about the right flank with fluid adjacent to the latissimus dorsi. Stranding extends up into the right breast. Findings could represent developing cellulitis. 2. In addition, there is now a small right-sided effusion with bilateral dependent atelectatic changes. Jerome Brady MD Abdomen/Pelvis CT 07/24/17 0000 Signed Impressions: Service Date/Time: Monday, July 24, 2017 05:36 - CONCLUSION: 1. CT findings concerning for a right sided cellulitis and developing myositis. There is some asymmetric prominence of the latissimus dorsi muscle on the right. Unorganized fluid in the deep subcutaneous tissues adjacent to the muscle belly. No drainable fluid collection, however. 2. Developing dependent areas of consolidation, right greater than left with an associated small right-sided effusion. Jerome Brady MD Head CT 07/22/17 1253 Signed Impressions: Service Date/Time: Saturday, July 22, 2017 13:26 - CONCLUSION: No acute disease. Derrick Henry MD Physical Exam GENERAL: Awake and alert, on the vent, NAD. SKIN: No generalized rash. Dry, cool extremities HEAD: Atraumatic. Normocephalic. No temporal or scalp tenderness. EYES: Pupils equal round and reactive. Extraocular motions intact. No scleral icterus. No injection or drainage. ENT: Intubated. Moist mucosa NECK: Trachea midline. Supple, nontender, no meningeal signs. CARDIOVASCULAR: Heart sounds audible. No murmur appreciated. RESPIRATORY: Clear to auscultation. Breath sounds equal bilaterally. No wheezes , rales, or rhonchi. GASTROINTESTINAL: Abdomen soft. Wound vac area noted. Extensive area covered with wound vac sponge, output serosanguineous. Has a candidal rash in the groin MUSCULOSKELETAL: Extremities without clubbing, cyanosis. Some pedal edema. Ischemic toes R foot 2-4 toes and tip of 5th toe, no change. Cool feet NEUROLOGICAL: Grossly nonfocal Psych calm and cooperative IV line sites with no e.o infection Assessment & Plan Remarks Septic shock with multiorgan dysfunction syndrome, better Sepsis present on admission, better Necrotizing fasciitis of the abdominal wall ? History of multiple falls likely the precipitant. PSAE and Kleb pneumo pneumonia. PSAE and kleb in urine ? contamination as 2 organisms. Acute rhabdomyolysis Acute renal failure: Prerenal, sepsis, rhabdomyolysis Acute metabolic encephalopathy likely sepsis related. Baseline unknown Leukocytosis, persistent - nothing new on C/S; last OR C/S MRSA - could be reactive from last OR Recommendations: Continue Dapto IV (stop date: 09/09/2017) Monitor CBC, CMP and serum CK level once a week while on Dapto to be followed by Primary team at [facility]. Follow temps Follow CBC Monitor progress Discussed with RN neva Livingston: no new workup unless persistent leucocytosis, or signs of sepsis, Temp > 101 or hypothermia persistent. Will sign off please call back if any change in clinical condition or questions. Ellen De La Torre MD Aug 25, 2017 11:06
--- NOTE | 2017-08-25 11:15 | HHI.PR ---
Subjective Subjective Notes Resting in bed Eyes closed Objective Vitals/I&O Vital Signs Date Time Temp Pulse Resp B/P (MAP) Pulse Ox O2 Delivery O2 Flow Rate FiO2 08/25/17 09:09 96 Trach Collar 6.00 21 08/25/17 06:00 100 08/25/17 04:00 99.3 18 110/63 (79) Labs Laboratory Tests Test 08/25/17 05:13 White Blood Count 14.0 Red Blood Count 3.47 Hemoglobin 9.4 Hematocrit 28.8 Mean Corpuscular Volume 82.9 Mean Corpuscular Hemoglobin 26.9 Mean Corpuscular Hemoglobin Concent 32.5 Red Cell Distribution Width 17.4 Platelet Count 447 Mean Platelet Volume 5.3 Blood Urea Nitrogen 17 Creatinine 0.76 Random Glucose 142 Total Protein 5.7 Albumin 1.7 Calcium Level 9.3 Phosphorus Level 1.8 Magnesium Level 1.6 Alkaline Phosphatase 102 Aspartate Amino Transf (AST/SGOT) 25 Alanine Aminotransferase (ALT/SGPT) 30 Total Bilirubin 0.2 Sodium Level 137 Potassium Level 4.0 Chloride Level 99 Carbon Dioxide Level 26.7 Anion Gap 11 Estimat Glomerular Filtration Rate 77 Date/Time Source Procedure Growth Status 08/06/17 00:43 Blood Peripheral Aerobic Blood Culture - Final NO GROWTH IN 5 DAYS Complete 08/06/17 00:43 Blood Peripheral Anaerobic Blood Culture - Final QNS - SEE AEROBE REPORT Complete 08/05/17 05:40 Sputum Endotracheal Gram Stain - Final Complete 08/05/17 05:40 Sputum Culture - Final Pseudomonas Aeruginosa Klebsiella Pneumoniae Complete 08/15/17 00:45 Urine Catheterized Urine Urine Culture - Final NO GROWTH IN 48 HOURS. Complete 07/27/17 15:30 Wound Other Fungal Smear - Final NO FUNGAL ELEMENTS SEEN. Complete 07/27/17 15:30 Wound Other Fungal Culture - Final NO GROWTH IN 4 WEEKS Complete Cardiovascular: Regular Lungs: Clear Abdomen: Other (large Wound Vac over RIGHT abdomen/flank/back with good seal to wall suction ) Narrative Exam necrotic appearing toes of RIGHT foot A/P Problem List: (1) Acute kidney injury ICD Codes: N17.9 - Acute kidney failure, unspecified Status: Acute (2) Severe sepsis ICD Codes: A41.9 - Sepsis, unspecified organism; R65.20 - Severe sepsis without septic shock Status: Acute (3) Dysphagia ICD Codes: R13.10 - Dysphagia, unspecified Status: Resolved (4) HTN (hypertension) ICD Codes: I10 - Essential (primary) hypertension (5) Glaucoma ICD Codes: H40.9 - Unspecified glaucoma (6) Abdominal wall cellulitis ICD Codes: L03.311 - Cellulitis of abdominal wall (7) A-fib ICD Codes: I48.91 - Unspecified atrial fibrillation (8) Hypernatremia ICD Codes: E87.0 - Hyperosmolality and hypernatremia (9) Hypotension ICD Codes: I95.9 - Hypotension, unspecified Status: Resolved (10) Wound, open, trunk (11) Open wound of flank ICD Codes: S31.109A - Unspecified open wound of abdominal wall, unspecified quadrant without penetration into peritoneal cavity, initial encounter (12) Abdominal pain ICD Codes: R10.9 - Abdominal pain Status: Acute (13) GERD (gastroesophageal reflux disease) ICD Codes: K21.9 - Gastroesophageal reflux disease Status: Acute (14) Hypothyroidism ICD Codes: E03.9 - Hypothyroidism Status: Chronic (15) Dyslipidemia ICD Codes: E78.5 - Dyslipidemia Status: Acute (16) Low back pain ICD Codes: M54.5 - Low back pain Status: Acute (17) Diabetes mellitus type 2 with neurological manifestations ICD Codes: E11.40 - Type 2 diabetes mellitus with neurological manifestations Status: Acute (18) Pancreatitis ICD Codes: K85.9 - Pancreatitis Status: Acute (19) Diabetic peripheral neuropathy associated with type 2 diabetes mellitus ICD Codes: E11.42 - Diabetic peripheral neuropathy associated with type 2 diabetes mellitus Status: Acute Assessment and Plan 62 year old female with extensive soft tissue infection -s/p I&D of wound; wound vac placement and trach -Continue tube feeds -Consult to Plastic Surgery for re-evaluation of skin graft -CM working on bed placement at [facility] ---if bed becomes available okay to DC from GS standpoint Problem Qualifiers (1) Hypotension: Qualified Codes: I95.9 - Hypotension, unspecified Batool Meneses/[employer] Safety Program Coordinator TREE KILLER Aug 25, 2017 11:15
[2017-08-25] MEDS ORDERED: DAPT250I IV (11:16)
[2017-08-25] MEDS ORDERED: EPIN1INJ21 IV PUSH (11:17)
[2017-08-25] MEDS ORDERED: EPIN1INJ21 SQ (11:17)
[2017-08-25] MEDS ORDERED: SOLU250I IV PUSH (11:17)
--- NOTE | 2017-08-25 11:21 | HHI.FF ---
Infusion Therapy Location of Infusion Therapy: [facility] Infusion Therapy Order ([facility]) Patient Information Patient Weight 58.5 kg Diagnosis: Coded Allergies: No Known Allergies (Verified Allergy, Unknown, 07/22/17) Administer Medication Daptomycin 690 mg IV every 24 hours Start Treatment: Aug 25, 2017 Stop Treatment: Sep 09, 2017 Additional Information Venous access: Peripheral (Midline or PICC if absolutely need be.), Other Additional Instructions [x] Peripheral flush and dressing changes per protocol [x] Implanted port and central class a lineman: * Implanted port: 10 ml Normal Saline followed by 5 ml Heparin 100 units/ml Heparin flush after each use and monthly to maintain. [] May leave port accessed during therapy. [] May leave peripheral site accessed for duration of therapy. [x] If patient has SOB or respiratory distress, check oxygen saturation. If less than 90% or clinical signs of respiratory distress, administer oxygen at 2 L/min. via nasal cannula and notify physician. [x] Anaphylaxis/Reaction orders: * Stop infusion. * Keep IV line open with saline flush. * Notify physician. * Monitor vital signs every 15 minutes until symptoms resolve. * Check Oxygen saturation; Oxygen at 2 L/min. via nasal cannula if less than 90% or clinical signs of respiratory distress. * Administer diphenhydramine (Benadryl) 25 mg IV STAT, (unless patient has received as pre-med). May repeat once, if necessary. * Solu-Cortef 250 mg IVP over 30-60 seconds, use 100 mg vials for each dissolution. * Epinephrine (1mg/1 ml) 0.3 mg subcutaneously or IVP now with any signs of respiratory distress. * Check with physician for new additional pre-med orders if patient is re- challenged or re-treated. [x] May remove PICC line when treatment complete, after confirming with Physician. [x] If the patient is admitted to the hospital, the ED, or transferred via [facility] , complete transfer form including medication reconciliation order sheet. Laboratory Tests Weekly Labs: CBC w/diff, Creatinine, CRP, LFT's (Hepatic function test) Additional Information Please draw weekly labs, call with abnormals, change in clinical condition or problems to: ID Physician at LTAC. Ellen De La Torre MD Aug 25, 2017 11:21
--- NOTE | 2017-08-25 12:15 | HHI.HCSW ---
[employer] Well [employer]or Visit Cognitive Functioning Received call from Dr. Carrington requesting a supportive visit to assist with health care surrogate documentation. Indicates Ms. Eldridge is alert, oriented, and verbalizes a desire to designate Felipe Nagy as HCS. At my visit: Ms. Eldridge currently sitting up in chair, head slightly down. She is awake, alert , and able to make her needs known. Explained health care surrogate and she is able to reciprocate conversation with Dr. Carrington and indicates she wishes to designate Mr. Nagy as health care surrogate. She tells me there is not anyone else she would designate as alternate at this time. . Advance Directive Health care surrogate completed 08/25/17. Health care surrogate is Felipe Nagy. Copy placed on chart and faxed to HIM to be scanned into EMR. . Follow Up Visit Palliative care will continue to follow throughout hospitalization. Maritza Martinez, AUTO SERVICER Aug 25, 2017 12:15
[2017-08-25] MEDS: ACETAMINOPHEN 325 MG TAB PO PRN (13:10)
--- NOTE | 2017-08-25 14:47 | HHI.HCPN ---
Reason for visit a. To assist with evaluation and management of symptoms including: pain, dyspnea. b. To assist medical decision maker(s) with: better understanding of current medical conditions; weighing benefits/burdens of medical treatment options; making medical treatment decisions. . Subjective/Interval History Patient is awake, alert, sitting up in chair at time of my visit. She waves and smiles as I enter the room. She continues to report pain that she cannot really quantify. She says is hurts all over -- bedside nurse indicates she most frequently points to the abdomen when answering questions about location. Pain intensities reported bytoño felix as 2 - 10. She continues to get relief from the IV morphine -- she only needed one dose yesterday and has had one dose today. Denies SOB. tolerating trach to room air at time of my visit. Afebrile. Pulse stable. Systolic BP down to 89 on one occasion. Hg 9.4. WBC up to 14.0. TSH 83 on 08/21/17 No positive cultures since sputum of 08/05/17 showing Pseudomonas and Klebsiella. Remains on daptomycin under direction of ID. CXR showing minimal basilar atelectasis -- no effusion or pneumothorax. . Patient was awake and alert enough to converse regarding advance directives and goals of medical treatment. She was quite clear that she wanted Mr. Nagy to serve as her health care surrogate. She indicated she knew of the whereabouts of only one family member -- a sister. She wanted Mr. Nagy and NOT that sister to be her surrogate. I also spoke about her hospitalization. I let her know how long she was in the hospital and how ill she was. I let her know about her very large wound and her need for multiple surgeries. I told her about the poor circulation in her toes. Her goals are aggressive . She would want chest compressions and shock and invasive procedures as needed to keep her alive. Time devoted to this advance care planning was over 18 minutes. . Family/friend interactions No family / friends interactions today. . Advance Directives Living Will: Never completed Health Care Surrogate: Copy in medical record Durable Power of Power Generating Plant Operator: Never completed Advance Directive Specifics Date completed: Patient was able to complete her own designation of health care surrogate on 04/13. . . Health Care Surrogate(s): The patient designated Mr. Felipe Nagy as her health care surrogate. . Documented care wishes: There is no written documentation of health care goals/preferences. . Significant change in goals: Patient is currently stating that she desires all aggressive care at this point to keep her alive including chest compressions and shock. . Objective Vital Signs Date Time Temp Pulse Resp B/P (MAP) Pulse Ox O2 Delivery O2 Flow Rate FiO2 08/25/17 14:00 103 08/25/17 12:00 105 08/25/17 12:00 98.8 105 24 93/52 (66) 97 08/25/17 10:00 96 08/25/17 09:09 96 Trach Collar 6.00 21 08/25/17 08:00 98.8 94 18 113/62 (79) 100 08/25/17 08:00 94 08/25/17 07:00 100 Trach Collar 08/25/17 06:00 100 08/25/17 04:00 94 08/25/17 04:00 99.3 96 18 110/63 (79) 97 08/25/17 03:24 16 08/25/17 02:00 92 08/25/17 00:00 91 08/25/17 00:00 98.7 90 71 109/61 (77) 96 08/24/17 22:00 87 08/24/17 21:25 98 Trach Collar 21 08/24/17 20:00 98.7 97 21 98/58 (71) 97 08/24/17 19:02 99 Trach Collar 08/24/17 18:00 94 08/24/17 16:00 98.5 90 15 89/52 (64) 99 08/24/17 16:00 90 Intake & Output 08/25/17 08/25/17 06:59 18:59 Intake Total 1235 ml Output Total 875 ml 0 ml Balance 360 ml 0 ml Tube Feeding 1135 ml Tube Irrigant 100 ml Output Urine Total 275 ml Stool Total 400 ml Tube Feeding Residual Discard 0 ml Drainage Total 200 ml . Physical Exam CONSTITUTIONAL/GENERAL: This is a chronically ill-appearing patient. She is up in a cruz-chair at bedside with trach collar in place. Awake, alert, smiles. TUBES/LINES/DRAINS: Wound vac, Peripheral IV; trach collar; urine collection system SKIN: Large right sided wound with wound vac in place. ENT: . Nose without bleeding or purulent drainage. Mucous membranes dry. Trach collar in place. CARDIOVASCULAR: Regular rate and rhythm without murmurs, gallops, or rubs. No JVD. RESPIRATORY/CHEST: Symmetric, unlabored respirations. Lungs clear. GASTROINTESTINAL: Abdomen soft, nondistended. No hepato-splenomegaly, or palpable masses. No guarding. Bowel sounds present. GENITOURINARY: Without palpable bladder distension. MUSCULOSKELETAL: Extremities without clubbing, edema. Right foot toes are all ischemic with necrotic tips except for the great toe. NEUROLOGICAL: Awake, alert, interactive. Can hold up 3 fingers and give thumbs up on the left on command. Moves all extremities. PSYCHIATRIC: No obvious depression/anxiety/hallucinations or other psychiatric phenomenon. . Diagnostic Tests Laboratory Laboratory Tests Test 08/25/17 05:13 White Blood Count 14.0 TH/MM3 (4.0-11.0) Red Blood Count 3.47 MIL/MM3 (4.00-5.30) Hemoglobin 9.4 GM/DL (11.6-15.3) Hematocrit 28.8 % (35.0-46.0) Mean Corpuscular Volume 82.9 FL (80.0-100.0) Mean Corpuscular Hemoglobin 26.9 PG (27.0-34.0) Mean Corpuscular Hemoglobin Concent 32.5 % (32.0-36.0) Red Cell Distribution Width 17.4 % (11.6-17.2) Platelet Count 447 TH/MM3 (150-450) Mean Platelet Volume 5.3 FL (7.0-11.0) Blood Urea Nitrogen 17 MG/DL (7-18) Creatinine 0.76 MG/DL (0.50-1.00) Random Glucose 142 MG/DL (74-106) Total Protein 5.7 GM/DL (6.4-8.2) Albumin 1.7 GM/DL (3.4-5.0) Calcium Level 9.3 MG/DL (8.5-10.1) Phosphorus Level 1.8 MG/DL (2.5-4.9) Magnesium Level 1.6 MG/DL (1.5-2.5) Alkaline Phosphatase 102 U/L (45-117) Aspartate Amino Transf (AST/SGOT) 25 U/L (15-37) Alanine Aminotransferase (ALT/SGPT) 30 U/L (10-53) Total Bilirubin 0.2 MG/DL (0.2-1.0) Sodium Level 137 MEQ/L (136-145) Potassium Level 4.0 MEQ/L (3.5-5.1) Chloride Level 99 MEQ/L (98-107) Carbon Dioxide Level 26.7 MEQ/L (21.0-32.0) Anion Gap 11 MEQ/L (5-15) Estimat Glomerular Filtration Rate 77 ML/MIN (>89) . Result Diagram: 08/25/1751208/25/1713 Microbiology Microbiology Date/Time Source Procedure Growth Status 08/06/17 00:43 Blood Peripheral Aerobic Blood Culture - Final NO GROWTH IN 5 DAYS Complete 08/06/17 00:43 Blood Peripheral Anaerobic Blood Culture - Final QNS - SEE AEROBE REPORT Complete 08/05/17 05:40 Sputum Endotracheal Gram Stain - Final Complete 08/05/17 05:40 Sputum Culture - Final Pseudomonas Aeruginosa Klebsiella Pneumoniae Complete 08/15/17 00:45 Urine Catheterized Urine Urine Culture - Final NO GROWTH IN 48 HOURS. Complete 07/27/17 15:30 Wound Other Fungal Smear - Final NO FUNGAL ELEMENTS SEEN. Complete 07/27/17 15:30 Wound Other Fungal Culture - Final NO GROWTH IN 4 WEEKS Complete . Imaging Last Impressions Chest X-Ray 08/25/17 0600 Signed Impressions: CONCLUSION: Minimal basilar atelectasis. No effusion or pneumothorax. Brain MRI 07/28/17 0000 Signed Impressions: Service Date/Time: Friday, July 28, 2017 14:38 - CONCLUSION: 1. Unremarkable MRI examination the brain. 2. No acute abnormality or interval change. Bob Daly MD Chest CT 07/24/17 0000 Signed Impressions: Service Date/Time: Monday, July 24, 2017 05:36 - CONCLUSION: 1. Stranding in the subcutaneous tissues about the right flank with fluid adjacent to the latissimus dorsi. Stranding extends up into the right breast. Findings could represent developing cellulitis. 2. In addition, there is now a small right-sided effusion with bilateral dependent atelectatic changes. Jerome Brady MD Abdomen/Pelvis CT 07/24/17 0000 Signed Impressions: Service Date/Time: Monday, July 24, 2017 05:36 - CONCLUSION: 1. CT findings concerning for a right sided cellulitis and developing myositis. There is some asymmetric prominence of the latissimus dorsi muscle on the right. Unorganized fluid in the deep subcutaneous tissues adjacent to the muscle belly. No drainable fluid collection, however. 2. Developing dependent areas of consolidation, right greater than left with an associated small right-sided effusion. Jerome Brady MD Head CT 07/22/17 1253 Signed Impressions: Service Date/Time: Saturday, July 22, 2017 13:26 - CONCLUSION: No acute disease. Derrick Henry MD . Procedures INTUBATION Debridement/wound VAC Second debridement/wound VAC 08/05/17 Third debridement/wound VAC 08/10/17 Tracheostomy 08/10/17 . Assessment and Plan Disease Oriented Problem List: (1) Severe sepsis (2) Abdominal wall cellulitis Comment: Necrotizing fasciitis requiromg multiple debridements and wound vac . (3) Acute kidney injury Comment: Improved (4) DM (diabetes mellitus) (5) Hypothyroidism Symptom Scale: (1) Dyspnea 0-10 Scale: 0 Comment: Breathing now appears comfortable. Patient off vent support and tolerating trach collar. . (2) Pain 0-10 Scale: Unable to quantify Comment: No known pre-hospitalization pain syndromes. Current sources of pain probably include large wound; prolonged bedbound status; vascular access lines. . Pertinent Non-Medical Issues Psychosocial:developmental delay, Spiritual: Has not belong to any particular gemma group. Per her partner, she has been recently interested in yarsani oriented audio cassettes Legal: Signed her own health care surrogate designation on 08/25/17. She requests that Felipe Nagy serve as HCS. Ethical issues impacting care: Patient has regained capacity. . Important Contacts Felipe Nagy (heat care surrogate) [phone] . Prognosis 62 year old female with severe sepsis, due to large right sided necrotizing wound + for MRSA. Pt had recurrent hypotension/sepsis and remained encephalopathic. Remarkably, she has shown signs of slow recovery. She appears capacitated to make her own health care decisions while awake. Wound is slowly improving. Toes on right, however, remain ischemic. Though she may survive the hospitalization, the intermediate project manager prognosis is poor. She is very debilitated with high probability of major setbacks including pneumonia, wound infections, etc. . . . Code Status: Full Code Plan == Code Status : Full Code per conversation with patient on 08/25/17 == Decision Making: Patient is now having longer periods of wakefulness where she has insight into her own illness and can weigh the burdens and benefits of treatment options. The patient has been clear that she wants Mr. Nagy to serve as her health care surrogate. She reports having one living family number she knows of -- a sister -- and she does not want that sister to serve as her surrogate. ==Goals of medical treatment: In the conversation of 08/26/27 patient was clear that her goals are aggressive including chest compression and shock. == Symptoms (see symptoms above) * dyspnea: Now managed with trach collar only -- not requiring vent support. The opiates she is getting for pain will also mitigate and subjective sense of dyspnea. No further recommendations at this time. * pain- Multiple sources of discomfort including -- extensive right sided wound; repeated debridements and wound vac changes; prolonged bedbound status ; etc. Receiving IV morphine with good results. No further recommendations at this time. * Intermittent Agitation - much improved. No further recommendations at this time. == Plan * I have asked the palliative care social work job titles to assist patient with a health care surrogacy document. this has been completed and the surrogate (Mr. Nagy) is now official. Will fax completed document to Intake to scan intor the patient's DME. * As both patient's stated goals and surrogates goals are aggressive, we will continue down that path. We will re-visit if there are setback or more major procedures to be done (e.g. toe amputation). * We may see increasing alertness as the hypothyroidism is treated. == Palliative care will continue to follow to assist with symptom management and to further clarify goals of medical treatment as the clinical course evolves. . . Attestation To help prompt me to consider important information that might be impacting today's encounter and assessment, information from prior notes written by myself or my colleagues may have been "brought forward" into today's note. My signature on this note, however, is an attestation that I personally performed the exam, history, and/or decision-making noted today, and, unless otherwise indicated, the interactions with patient, family, and staff as well as the review of records all occurred today. I also attest that the listed assessment and stated plan reflect my best clinical judgment today based on the combination of historical information, prior notes, and today's exam/ interactions. When time spent is documented, it refers only to time spent today by the signer, or if indicated, combined time spent today by collaborating physician/nurse practitioner. . Felipe Carrington MD Aug 25, 2017 14:47
--- NOTE | 2017-08-25 17:32 | HHI.DS ---
Discharge Summary Admission Date Jul 22, 2017 at 15:19 Admitting Diagnosis acute sepsis, acute kidney injury, hypotension CBC/BMP: 08/25/17 0513 08/25/17 0513 Significant Findings Laboratory Tests Test 08/25/17 05:13 White Blood Count 14.0 TH/MM3 (4.0-11.0) Red Blood Count 3.47 MIL/MM3 (4.00-5.30) Hemoglobin 9.4 GM/DL (11.6-15.3) Hematocrit 28.8 % (35.0-46.0) Mean Corpuscular Hemoglobin 26.9 PG (27.0-34.0) Red Cell Distribution Width 17.4 % (11.6-17.2) Mean Platelet Volume 5.3 FL (7.0-11.0) Random Glucose 142 MG/DL (74-106) Total Protein 5.7 GM/DL (6.4-8.2) Albumin 1.7 GM/DL (3.4-5.0) Phosphorus Level 1.8 MG/DL (2.5-4.9) Estimat Glomerular Filtration Rate 77 ML/MIN (>89) Hospital Course This is a 62-year-old female with a history of developmental delay and recurrent urinary tract infections who presents with new onset right-sided abdominal and flank pain. Per the family [facility] service admission note this is been going on for approximately 4 weeks. Patient has a history of developmental delay and is difficult to get a complete history from her, no analysis with her on my evaluation. On my evaluation she endorses flank pain radiating around to her chest. She endorses subjective chills. Denies recent fevers to me. Also endorses nausea, vomiting. In the emergency department she was found to have significant erythema, rubor, dolor, and edema from approximately the fifth intercostal space down to the eighth or ninth intercostal space wrapping around from the midline in the back all the way around to just medial to the breast. CT scan of the abdomen and pelvis confirms significant subcutaneous edema, but this area of edema appears to be contained by intact fascial planes, particularly in the midline of the back. Laboratory evidence is significant for a white blood cell count of 27k, creatinine is 3.58, potassium 5.4, bicarb of 17.9, anion gap elevated at 15, BUN of 64, an initial lactate of 5.1. In the emergency department she received 3 L of crystalloid IV fluids. Despite this she is hypotensive with a mean arterial pressure of 51. Critical care medicine is consulted to evaluate manage her presumed septic shock secondary to severe cellulitis of the trunk. I have given her an additional liter of crystalloid and then placed central venous access, see separate procedure note for details. In addition her lactate is starting to clear and is now 2.9 with an more currently pending, however it is not clearing fast enough and she remains oliguric. I placed a Scales for accurate hourly I's and O's. The remainder of the review systems for the patient is negative except documented in the HPI, although this is severely limited by her baseline developmental delay. Subjective 07/23: Patient remains on vasopressors, noted metabolic acidosis, bicarbonate level of 15. Sodium bicarbonate infusion initiated. 07/24 Patient was intubated early this morning now on Vasopressin and Neosyn 300 mics in addition patient is on Amio and Bicarb drips. WBC increased 31. CT abd/pelvis showed right sided cellulites and developing myositis. 07/25 Patient went to OR yesterday s/p wide excisional debridement of soft tissue infection with VAC placement for necrotizing soft tissue infection of abdomen, right hip area right torso area measuring approximately 32 x 18 inches x 2 inches deep. She remains on Vasopressin 0.04 and Neosyn down to 120 mics. On Amio drip. 07/26 No events overnight. Off all pressors, WBC is trending down. On Amio drip. 07/27 Patient remains intubated for return to OR today and wound vac exchange. 07/28 Patient s/p excisional debridement with vac change yesterday intubated and sedated with Fentanyl infusion. 07/29 Patient remains intubated and sedated with Fentanyl and Versed drips. Afebrile. 07/30 No events overnight. Patient remains sedated with Fentanyl drip and intubated. For OR today for further debridement and wound vac exchange. Afebrile. 07/31 Patient went to OR yesterday for vac exchange, Afebrile, WBC is trending down, Intubated and now sedated with Fentanyl and Versed 2mg/hr 08/01: Remains sedated, orally intubated on mechanical ventilation. Scheduled for OR today for vac exchange. 08/02: Remains intubated scheduled for OR again today. Antibiotics per ID. Slight increase in WBC count is 17.2 08/03: s/p Excisional debridement with VAC change yesterday by Dr. Dumont. Tolerating CPAP but not waking up or following commands. Dr. Dumont plans for further wound debridement and VAC change either tomorrow or Monday. Anticipating OR will leave patient intubated. WBC 19.9 today, will discuss with ID 08/04: Remains intubated, intermittently agitated on the vent. Or planned for tomorrow by Dr. Dumont. WBC count is slightly improved today 16.7 08/05: Patient is more critical today with worsening sepsis. T-max 102, WBC count up to 22.6. Hypotensive blood pressure 78/51. I have ordered 1 L normal saline bolus. Pancultured overnight. Zosyn started by Dr. Mcdonald. I will start micafungin also. Will inform ID. Dr. Dumont planning for OR today 08/06: Evaluated by night canal superintendent for persistent worsening hypotension called to bedside to evaluate patient with worsening hypotension. Given 500 cc 5 % albumin 1 without improvement in hypotension. A right subclavian central line was placed and norepinephrine infusion was started for persistent septic shock. Currently map remains above 65, on Levophed at 4 mcg/min. WBC 16.1 slightly improved from yesterday. Hemoglobin has dropped to 7.2 approximately 2 g drop. Transfuse 1 unit of PRBC stat. T-max 100.7, urine culture growing GNR 08/07: Remains sedated, orally intubated on mechanical ventilation. Wound VAC in place. On Levophed 2 mics per minute for hypotension. 08/08: Sedated, orally intubated on mechanical ventilation. Wound VAC remains in place. Tolerating tube feeds. Discussed with Dr. Dumont who is planning to take patient to OR tomorrow for wound VAC change as well as tracheostomy. 08/09: OR today for wound VAC change and tracheostomy. Remains on Levophed at 1 mcg/min. If continued Levophed requirement, right subclavian central line heading towards the left subclavian need to be replaced 08/10: Patient went to OR today for wound vac change and tracheostomy. Had further wound debridement. Profoundly hypothermic. Temperature 92. Warming blanket applied. Send CBC. Discussed with ID. 08/11: Late entry note. Pt seen at 0830. Afebrile. No acute events overnight. Patient currently normothermic, WBC count downtrending. Palpable pulses B/L dorsalis pedis and post tibialis. 08/12 : No acute events. Possible plan for wound VAC replacement tomorrow. Overnight the wound VAC was dislodged Dr. Floyd follow in for wound VAC adjustment. Patient off sedation awake alert mouthing words appropriately. 08/13: doing well. conversant. remains on vent: when PSV support weaned, becomes tachypneic. going to OR tomorrow for washout. afebrile. denies complaints. 08/14: no complaints. scales removed yesterday but has not voided. will start cardura to help with bladder control. to OR today for washout. 08/15: Awake alert on the vent. Will attempt CPAP, and T-piece if tolerated. Plan for OR for washout VAC change again tomorrow 08/16: Continues to improve very slowly. still needing cpap and weaning support as tolerated. needs to be OOB to chair. 08/17: Currently on T-piece breathing comfortably. Dr. Dumont planning on VAC change today again. 08/18: no acute events. required ventilatory support overnight. will again attempt t-piece today. needs aggressive PT/OT. 08/19: No acute events overnight. The patient has remained on T piece overnight. Pain well controlled with morphine every 2 hours. Tube feeds resumed. 08/20: No acute events overnight. The patient remains on trach collar. 08/21: The patient tolerated trach collar throughout the entire night. Currently FiO2 0.28%, O2 saturation 94-95%. Tolerating tube feeds. 08/22: Patient remained on trach collar throughout the night. Patient pleasant conversant denies any distress. Patient remained n.p.o. this morning for wound VAC change in the OR today. 08/23: Late entry note. Patient seen at 6:05 AM. No acute events overnight patient continues on trach collar. Patient status post wound VAC change yesterday in no apparent distress. Pain well controlled. 08/24: No acute events overnight. Patient continues on trach collar at an FiO2 of 26%. Patient continues to have liquid stool, fecal containment device in place. [facility]. 08/25: T-max 99.3. Noticed slight increase in WBC count. Blood and sputum cultures ordered. Patient noted to have phosphorus , 30 mmol being repleted. Patient alert and oriented interactive continue to tolerates trach collar. No changes in the right distal foot posterior tibial pulses palpated. 1330- [facility]. Pt Condition on Discharge: Fair Discharge Disposition: Disch to Another Hospital Discharge Instructions DIET: Follow Instructions for: On Tube Feeding Activities you can perform: Continue Bedrest Rachael Jha MD Aug 25, 2017 17:32
== END 2017-08-25 14:50 | DRG 3 ==
LOC: NEPE 12:30 → NEDA 15:19 → HIMN 17:30
PROVIDERS: ADMIT Internal Medicine; ATTEND Internal Medicine
PROC: 02HV33Z Insertion of Infusion Device into Superior Vena Cava, Percutaneous Approach (ICD-10-PCS; 2017-07-22)
PROC: 5A1955Z Respiratory Ventilation, Greater than 96 Consecutive Hours (ICD-10-PCS; 2017-07-24)
PROC: 0JBL0ZZ Excision of Right Upper Leg Subcutaneous Tissue and Fascia, Open Approach (ICD-10-PCS; 2017-07-24)
PROC: 0BH17EZ Insertion of Endotracheal Airway into Trachea, Via Natural or Artificial Opening (ICD-10-PCS; 2017-07-24)
PROC: 0CJS8ZZ Inspection of Larynx, Via Natural or Artificial Opening Endoscopic (ICD-10-PCS; 2017-07-24)
PROC: 05H633Z Insertion of Infusion Device into Left Subclavian Vein, Percutaneous Approach (ICD-10-PCS; 2017-07-24)
PROC: 0JB80ZZ Excision of Abdomen Subcutaneous Tissue and Fascia, Open Approach (ICD-10-PCS; principal; 2017-07-24 11:30)
PROC: 0JB80ZZ Excision of Abdomen Subcutaneous Tissue and Fascia, Open Approach (ICD-10-PCS; 2017-07-27)
PROC: 0JB70ZZ Excision of Back Subcutaneous Tissue and Fascia, Open Approach (ICD-10-PCS; 2017-07-27)
PROC: 0JB80ZZ Excision of Abdomen Subcutaneous Tissue and Fascia, Open Approach (ICD-10-PCS; 2017-07-30)
PROC: 0JB70ZZ Excision of Back Subcutaneous Tissue and Fascia, Open Approach (ICD-10-PCS; 2017-07-30)
PROC: 30233N1 Transfusion of Nonautologous Red Blood Cells into Peripheral Vein, Percutaneous Approach (ICD-10-PCS; 2017-07-31)
PROC: 0JB80ZZ Excision of Abdomen Subcutaneous Tissue and Fascia, Open Approach (ICD-10-PCS; 2017-08-02)
PROC: 0JB80ZZ Excision of Abdomen Subcutaneous Tissue and Fascia, Open Approach (ICD-10-PCS; 2017-08-05)
PROC: 05H533Z Insertion of Infusion Device into Right Subclavian Vein, Percutaneous Approach (ICD-10-PCS; 2017-08-06)
PROC: 0B113F4 Bypass Trachea to Cutaneous with Tracheostomy Device, Percutaneous Approach (ICD-10-PCS; 2017-08-10)
PROC: 0BJ08ZZ Inspection of Tracheobronchial Tree, Via Natural or Artificial Opening Endoscopic (ICD-10-PCS; 2017-08-10)
PROC: 0HD7XZZ Extraction of Abdomen Skin, External Approach (ICD-10-PCS; 2017-08-10)
PROC: 2W03X6Z Change Pressure Dressing on Abdominal Wall (ICD-10-PCS; 2017-08-14)
PROC: 2W05X6Z Change Pressure Dressing on Back (ICD-10-PCS; 2017-08-14)
PROC: 0HX6XZZ Transfer Back Skin, External Approach (ICD-10-PCS; 2017-08-17)
PROC: 0JB80ZZ Excision of Abdomen Subcutaneous Tissue and Fascia, Open Approach (ICD-10-PCS; 2017-08-17)
PROC: 0JB70ZZ Excision of Back Subcutaneous Tissue and Fascia, Open Approach (ICD-10-PCS; 2017-08-17)
PROC: 0JBL0ZZ Excision of Right Upper Leg Subcutaneous Tissue and Fascia, Open Approach (ICD-10-PCS; 2017-08-17)
PROC: 0HX7XZZ Transfer Abdomen Skin, External Approach (ICD-10-PCS; 2017-08-17)
PROC: 0HXHXZZ Transfer Right Upper Leg Skin, External Approach (ICD-10-PCS; 2017-08-17)
PROC: 2W03X6Z Change Pressure Dressing on Abdominal Wall (ICD-10-PCS; 2017-08-22)
PROC: 2W05X6Z Change Pressure Dressing on Back (ICD-10-PCS; 2017-08-22)
PROC: 2W0NX6Z Change Pressure Dressing on Right Upper Leg (ICD-10-PCS; 2017-08-22)
DX: A41.9 Sepsis, unspecified organism (principal); R65.21 Severe sepsis with septic shock; M72.6 Necrotizing fasciitis; G72.81 Critical illness myopathy; G93.41 Metabolic encephalopathy; E43 Unspecified severe protein-calorie malnutrition; J96.21 Acute and chronic respiratory failure with hypoxia; K85.90 Acute pancreatitis without necrosis or infection, unspecified; J15.0 Pneumonia due to Klebsiella pneumoniae; J15.1 Pneumonia due to Pseudomonas; J96.22 Acute and chronic respiratory failure with hypercapnia; E87.2 Acidosis; N17.9 Acute kidney failure, unspecified; Z99.11 Dependence on respirator [ventilator] status; L03.311 Cellulitis of abdominal wall; L02.211 Cutaneous abscess of abdominal wall; E87.0 Hyperosmolality and hypernatremia; E87.1 Hypo-osmolality and hyponatremia; J98.11 Atelectasis; R13.10 Dysphagia, unspecified; D69.6 Thrombocytopenia, unspecified; E86.9 Volume depletion, unspecified; I48.91 Unspecified atrial fibrillation; R62.50 Unspecified lack of expected normal physiological development in childhood; R29.6 Repeated falls; R32 Unspecified urinary incontinence; E03.9 Hypothyroidism, unspecified; K21.9 Gastro-esophageal reflux disease without esophagitis; G89.29 Other chronic pain; M54.5 Low back pain; G43.909 Migraine, unspecified, not intractable, without status migrainosus; E87.5 Hyperkalemia; E78.5 Hyperlipidemia, unspecified; I10 Essential (primary) hypertension; F32.9 Major depressive disorder, single episode, unspecified; F41.9 Anxiety disorder, unspecified; B95.62 Methicillin resistant Staphylococcus aureus infection as the cause of diseases classified elsewhere; Z51.5 Encounter for palliative care; Y95 Nosocomial condition; R23.0 Cyanosis; E87.6 Hypokalemia; D50.0 Iron deficiency anemia secondary to blood loss (chronic); E87.70 Fluid overload, unspecified; Z79.82 Long term (current) use of aspirin; Z79.899 Other long term (current) drug therapy; Z91.81 History of falling; Z87.440 Personal history of urinary (tract) infections; Z83.3 Family history of diabetes mellitus; Z74.01 Bed confinement status
CPT/HCPCS: 31500; 36430; 36556; 70450; 70551; 71045; 71250; 74176; 76937; 80048; 80053; 80202; 81001; 81050; 82550; 82552; 82570; 82805; 82948; 83605; 83690; 83735; 84100; 84132; 84156; 84166; 84300; 84439; 84443; 84481; 84484; 85007; 85014; 85018; 85025; 85027; 85610; 85730; 86403; 86850; 86900; 86901; 86920; 87015; 87040; 87070; 87077; 87086; 87102; 87116; 87147; 87176; 87186; 87205; 87206; 87493; 87641; 87804; 88305; 93005; 93306; 94002; 94003; 95819; 96361; 96365; 96368; 96375; A7521; J0282; J0360; J0610; J0878; J1100; J1160; J1205; J1580; J1720; J1815; J1940; J2248; J2250; J2270; J2370; J2405; J2543; J2765; J2997; J3010; J3370; J3475; J3480; J7030; J7040; J7050; J7060; J7070; J7120; P9016; P9045; P9612

== ENCOUNTER 2017-10-11 03:43 | Inpatient (IN) ==
--- NOTE | 2017-10-11 04:33 | P.HPCC ---
History of Present Illness Primary Care Physician: No Primary Care Physician Chief Complaint: Here for skin graft History of Present Illness: 62-year-old female with a medical history signet for developmental delay who presented to [facility] few months ago with necrotizing fasciitis for which she underwent multiple trips to the OR for debridement and subsequently wound VAC placement. She was discharged to [facility] after recovering from septic shock at the time. Patient has been weaned off mechanical ventilation and has a tracheostomy in place. She was transferred back from [facility] to [facility] as she is being scheduled for skin grafting. When I evaluated patient he is awake and alert talking with the speaking valve on trach. PEG tube was in place. She was not in any acute distress. History was obtained by reviewing records and discussion with nursing staff. Off note patient is still on IV vancomycin and meropenem at [facility] which will be continued. Inpatient Certification: I certify that the inpatient services were ordered in accordance with Medicare regulations governing the order. This includes certification that hospital inpatient services are reasonable and necessary and in the case of services not specified as inpatient-only under 42 CFR 419.22(n), that they are appropriately provided as inpatient services in accordance to with the 2-midnight benchmark under 43 CFR 412.3(e) Estimated Total Length of Stay (Days): 98 Plans for Post Hospital Care: Not yet determined Review of Systems All other systems reviewed negative except as stated in HPI [facility] - History History Provided By: Patient, Medical Record - Medical History Medical History: Medical History (Last Updated 11/02/17 @ 14:25 by Brian Nunez) Anxiety Bladder incontinence Chronic back pain Depressed Developmental delay GERD (gastroesophageal reflux disease) History of hysterectomy Hypothyroidism Migraine headache Renal insufficiency - Surgical History Surgical History: Surgical History (Last Updated 11/02/17 @ 14:25 by Brian Nunez) H/O dilation and curettage History of cholecystectomy S/P percutaneous endoscopic gastrostomy (PEG) tube placement S/P thyroid surgery S/P thyroid surgery Status post skin graft Status post tracheostomy - Family History Family History: Family History (Last Updated 11/02/17 @ 14:26 by Brian Nunez) Sister Lupus erythematosus Mother Diabetes - Tobacco History Second Hand Smoke Exposure: No Smoking Status: Never smoker - Alcohol History How Often Do You Have a Drink Containing Alcohol: Never - Substance Use History Substance History: No History of Abuse Medications and Allergies Active Medications: Medications at select: Mucomyst nebulizer treatments twice daily, vitamin C 500 mg daily, Os-Rico 501 tablet p.o. daily, Cardizem 60 mg every 6 hourly, fentanyl 25 mg twice daily, Lasix 20 mg once a day, guaifenesin 200 mg p.o. twice daily, levothyroxine 125 mcg p.o. daily, milk of magnesia daily, meropenem 1 g IV every 8 hourly, vancomycin 750 mg IV daily, Protonix, prednisone 10 mg daily, tobramycin nebulized treatments zinc sulfate capsules daily, Tylenol as needed, morphine as needed, Roxicodone as needed, MiraLAX as needed, tramadol as needed Allergies Allergy/AdvReac Type Severity Reaction Status Date / Time No Known Allergies Allergy Unknown Uncoded 07/22/17 19:30 Results - Labs CBC & Chem 7: 10/31/17 17:39 10/31/17 06:10 Exam Vital signs: Intake & Output 10/10/17 10/10/17 10/11/17 06:59 18:59 06:59 Weight 50.4 kg Other: Weight On Admission 50.4 kg Narrative: HEENT/Neuro: No pallor or icterus, tongue moist, DAVID, Awake alert oriented 3 , nonfocal grossly, moving all 4 extremities Neck: No JVD. Tracheostomy in place Chest/pulmonary: CTA bilaterally Cardiovascular: S1-S2 regular no gallop or murmur GI/abdomen: Soft, nontender, bowel sounds present. Dressing over left chest wall and abdomen noted. Extremities: Warm bilaterally, no edema Caprini VTE Risk Assessment Caprini VTE Risk Assessment: No/Low Risk (score <= 1) Caprini Risk Assessment Model: Point Value = 1 Point Value = 2 Point Value = 3 Point Value = 5 Age 41-60 Minor surgery BMI > 25 kg/m2 Swollen legs Varicose veins or History of unexplained or recurrent spontaneous Oral contraceptives or hormone replacement Sepsis (< 1 month) Serious lung disease, including pneumonia (< 1 month) Abnormal pulmonary function Acute myocardial infarction Congestive heart failure (< 1 month) History of inflammatory bowel disease Medical patient at bed rest Age 61-74 Arthroscopic surgery Major open surgery (> 45 min) Laparoscopic surgery (> 45 min) Malignancy Confined to bed (> 72 hours) Immobilizing plaster cast Central venous access Age >= 75 History of VTE Family history of VTE Factor V Leiden Prothrombin [id number] Lupus anticoagulant Anticardiolipin antibodies Elevated serum homocysteine Heparin-induced thrombocytopenia Other congenital or acquired thrombophilia Stroke (< 1 month) Elective arthroplasty Hip, pelvis, or leg fracture Acute spinal cord injury (< 1 month) Prophylaxis Regimen: Total Risk Factor Score Risk Level Prophylaxis Regimen 0-1 Low Early ambulation 2 Moderate Order ONE of the following: *Sequential Compression Device (SCD) *Heparin 5000 units SQ BID 3-4 Higher Order ONE of the following medications: *Heparin 5000 units SQ TID *Enoxaparin/Lovenox 40 mg SQ daily (WT < 150 kg, CrCl > 30 mL/min) *Enoxaparin/Lovenox 30 mg SQ daily (WT < 150 kg, CrCl > 10-29 mL/min) *Enoxaparin/Lovenox 30 mg SQ BID (WT < 150 kg, CrCl > 30 mL/min) AND/OR *Sequential Compression Device (SCD) 5 or more Highest Order ONE of the following medications: *Heparin 5000 units SQ TID (Preferred with Epidurals) *Enoxaparin/Lovenox 40 mg SQ daily (WT < 150 kg, CrCl > 30 mL/min) *Enoxaparin/Lovenox 30 mg SQ daily (WT < 150 kg, CrCl > 10-29 mL/min) *Enoxaparin/Lovenox 30 mg SQ BID (WT < 150 kg, CrCl > 30 mL/min) AND *Sequential Compression Device (SCD) Assessment and Plan - Assessment and Plan Plan: 62-year-old female with: Recent necrotizing fasciitis status post debridement Status post tracheostomy and PEG tube placement Plan: Patient transferred from [facility] ICU to [facility] ICU for plastic surgery to evaluate skin grafting over the exposed site. We will continue other medications including meropenem and vancomycin. ID consult requested to assist with deciding medications. -N.p.o. till morning and then start tube feeds via PEG if not going for surgery to 10/12. -Continue other medications from [facility] once entered into [facility]. -ID consult will be requested for antibiotic management. Plastic surgery eval for skin grafting GI prophylaxis/DVT prophylaxis. H&P: Quality - VTE Deep Vein Thrombosis/Pulmonary Embolism Present on Admission: No
[2017-10-11] MEDS ORDERED: Vancomycin Consult Pharmacy 1 EACH OTHER SCH (04:37)
[2017-10-11] MEDS ORDERED: Acetaminophen 325 MG Tablet PO PRN (07:09)
[2017-10-11] MEDS ORDERED: Bisacodyl 10 MG Supp RECTAL PRN (07:09)
[2017-10-11] MEDS ORDERED: Prochlorperazine 25 MG Supp RECTAL PRN (07:09)
[2017-10-11] MEDS ORDERED: Vancomycin Inj 1,000 MG in Sodium Chlor 0.9% Inj 250 ML IV.SIG ONE (08:00)
[2017-10-11 08:10] LABS: Hematocrit 22.2 % (35.0-46.0); Hemoglobin 7.1 gm/dL (11.6-15.3); Mean Corpuscular Hemoglobin 25.7 pg (27.0-34.0); Mean Corpuscular Volume 80.1 fL (80.0-100.0); Mean Platelet Volume 5.2 fL (7.0-11.0); Platelet Count 353 th/mm3 (150-450); Red Blood Count 2.78 mil/mm3 (4.00-5.30); Red Cell Distribution Width 17.6 % (11.6-17.2); White Blood Count 11.2 th/mm3 (4.0-11.0)
[2017-10-11 08:23] LABS: INR 1.1 Ratio; Prothrombin Time 11.3 sec (9.8-11.6)
[2017-10-11] MEDS: Sod Chloride 0.9% Inj 1,000 ML IV.CONT SCH ×2 (08:31→23:10)
[2017-10-11] MEDS: Levothyroxine 125 MCG Tablet PO SCH (08:32)
[2017-10-11] MEDS: predniSONE 10 MG Tablet PO SCH ×2 (08:32→20:57)
[2017-10-11 08:33] LABS: Alanine Aminotransferase 10 U/L (10-53); Albumin 1.9 g/dL (3.4-5.0); Aspartate Aminotransferase 12 U/L (15-37)
[2017-10-11 08:35] LABS: Alkaline Phosphatase 80 U/L (45-117); Total Protein 5.3 g/dL (6.4-8.2)
[2017-10-11] MEDS: Senna/Docusate Sodium 8.6/50 MG Tablet PO SCH ×2 (08:37→20:58)
[2017-10-11] MEDS: Furosemide 20 MG Tablet PO SCH (08:37)
[2017-10-11 09:11] LABS: Blood Urea Nitrogen 13 mg/dL (7-18); Calcium 10.3 mg/dL (8.5-10.1); Carbon Dioxide 37.9 meq/L (21.0-32.0); Glomerular Filtration Rate Greater Than 89 mL/min (>89); Glucose,Random 74 mg/dL (74-106)
--- NOTE | 2017-10-11 09:18 | XR ---
EXAM DATE: 10/11/2017 8:25 AM EDT AGE/SEX: 62 years / Female INDICATIONS: . Short of breath. CLINICAL DATA: This is the patient's subsequent encounter. Patient reports that signs and symptoms h ave been present for 1 week and indicates a pain score of Nonresponsive. MEDICAL/SURGICAL HISTORY: Non-responsive. Non-responsive. COMPARISON: [facility] [place]ST SINGLE AP, 08/25/2017. . FINDINGS: There is a linear infiltrate in the right lung base. This is mildly increased compared to the prior s tudy. There is some mild atelectasis in the left lung base. Otherwise, the rest of the lungs are umberto sly clear and stable compared to the prior study. There is a tracheostomy tube in place. There is no pneumothorax. The heart size is within normal limits. No significant pleural effusions. There is a le ft-sided PICC line in place. CONCLUSION: 1. Mild increasing infiltrate in the right lung base. 2. Stable atelectasis in the left lung base. Electronically signed by: Julio Zhu MD 10/11/2017 9:16 AM EDT
[2017-10-11 09:38] LABS: Sodium 139 meq/L (136-145)
[2017-10-11 09:39] LABS: Anion Gap 8 meq/L (5-15); Chloride 93 meq/L (98-107); Potassium 3.2 meq/L (3.5-5.1)
[2017-10-11 11:38] LABS: Bilirubin,Urine Negative (Negative); Clarity,Urine Clear (Clear); Color,Urine Colorless (Yellw/Straw); Glucose,Urine (UA) Negative (Negative); Leukocyte Esterase,Urine Negative (Negative); Mucus,Urine Few /lpf (Occasional); Nitrite,Urine Negative (Negative); Specific Gravity,Urine 1.004 (1.002-1.035)
--- NOTE | 2017-10-11 12:09 | ECG ---
Date Performed: 10/11/2017 Time Performed: 09:08:22 PTAGE: 62 years EKG: Sinus rhythm . Normal ECG PREVIOUS TRACING : 08/10/2017 22.39 DOCTOR: Darrel Renae Interpretating Date/Time 10/11/2017 12:08:33
[2017-10-11] MEDS ORDERED: Heparin Central Flush 100 UNIT/ML 5 ML Vial IV.FLUSH PRN (13:05)
[2017-10-11] MEDS ORDERED: Sodium Phosphate Inj 30 MMOL in Sodium Chlor 0.9% Inj 250 ML IV.SIG PRN (13:17)
[2017-10-11] MEDS ORDERED: Magnesium Sulfate Inj 4 GM in Sodium Chlor 0.9% Inj 92 ML IV.SIG PRN (13:17)
[2017-10-11] MEDS ORDERED: Potassium Chlor 20 mEq Premix 20 MEQ/100 ML PIGGYBACK IV.SIG PRN ×2 (13:17)
[2017-10-11] MEDS ORDERED: Magnesium Oxide 400 MG Tablet PO PRN (13:17)
[2017-10-11] MEDS ORDERED: Potassium Phosphate 500 MG Soluble Tablet PO PRN ×2 (13:17)
[2017-10-11] MEDS ORDERED: Potassium Chlor 40 mEq Premix 40 MEQ/100 ML PIGGYBACK IV.SIG PRN (13:17)
[2017-10-11] MEDS ORDERED: Potassium Phosphate Inj 30 MMOL in Sodium Chlor 0.9% Inj 250 ML IV.SIG PRN (13:17)
[2017-10-11] MEDS ORDERED: Magnesium Sulfate Inj 2 GM in Sodium Chlor 0.9% Inj 96 ML IV.SIG PRN (13:17)
[2017-10-11] MEDS ORDERED: Potassium Chloride 25 MEQ Effervescent Tablet PO PRN (13:17)
--- NOTE | 2017-10-11 13:46 | P.CON ---
History of Present Illness Primary Care Provider: No Primary Care Physician Family Provider: Lamar Ortiz MD Chief Complaint: Here for skin graft History of Present Illness: Service Plastic Surgery Consult Requested By Primary team Reason for Consult Right wound following necrotizing fasciitis Diagnoses: (1) Wound, open, trunk (2) Open wound of flank History of Present Illness Most of the history was obtained by review of medical records as patient poor historian. 62-year-old female who presented with right-sided abdominal flank and back erythema swelling and pain who was found in septic shock, and developed necrotizing fasciitis. Patient is now status post multiple debridements encompassing most of the right trunk and abdomen. Patient is now status post a course of rehab at a [facility] facility. She is recently transferred here to undergo skin graft closure of the above wound. Patient endorses moderate pain to the area of the wound since leaving. Her VAC is removed and she currently has a dry dressing on. Except as noted in the HPI review of systems negative for presenting complaint Past Family Social History Past Medical History Per chart review: Anxiety Depression Developmental delays - mental handicap Headaches/migraines Hypothyroidism GERD Chest pain Hx of UTIs Renal insufficiency Bladder incontinence Chronic back pain Past Surgical History Per chart review: Thyroid surgery EGD - 08/30/16 Cholecystectomy - 03/04/15 D&C Hysterectomy Colonoscopy - 07/30/16 and 08/11/15 Reported Medications Medication list reviewed Allergies: Coded Allergies: No Known Allergies (Verified Allergy, Unknown, 07/22/17) Family History Per chart review: Mother - diabetes mellitus Sister - lupus erythematosus Social History Per chart review: Alcohol: none. Tobacco: never smoker. Drug: none. Past Family Social History Allergies: Coded Allergies: No Known Allergies (Verified Allergy, Unknown, 07/22/17) [facility] - History History Provided By: Patient, Medical Record - Tobacco History Second Hand Smoke Exposure: No Smoking Status: Never smoker - Alcohol History How Often Do You Have a Drink Containing Alcohol: Never - Substance Use History Substance History: No History of Abuse Medications and Allergies Active Medications: Active Medications Acetaminophen (Tylenol) 650 mg PO Q6H PRN PRN Reason: FEVER >101F Hydrocodone Bitart/Acetaminophen ([place] 5/325) 1 tab PO Q4H PRN PRN Reason: PAIN SCALE 1 TO 5 Al Hydroxide/Mg Hydroxide (Milk Of Magnesia Liq) 30 ml PO Q12H PRN PRN Reason: Mild Constipation Albuterol (Albuterol Neb (Prn)) 2.5 mg NEB Q2HR NEB PRN PRN Reason: SHORTNESS OF BREATH/WHEEZING Albuterol (Duoneb Neb (Beatrice)) 1 ampul NEB Q4HR NEB [facility] Ascorbic Acid (Vitamin C) 500 mg NG/OG HS [facility] Bisacodyl (Dulcolax Supp) 10 mg RECTAL DAILY PRN PRN Reason: SEVERE CONSITIPATION Calcium/Vitamin D (Oscal With D 250/125 Mg) 2 tab PO QPM [facility] Chlorhexidine Gluconate (Chlorhexidine 2% Cloth) 3 pack TOPICAL DAILY@0400 [facility] Stop: 10/17/17 03:59 Chlorhexidine Gluconate (Chlorhexidine 2% Cloth) 3 pack TOPICAL DAILY@0400 PRN PRN Reason: Extra cloth needed Stop: 10/17/17 03:59 Furosemide (Lasix) 20 mg PO DAILY [facility] Last Admin: 10/11/17 08:37 Dose: 20 mg Heparin Sodium (Porcine) (Heparin Central Flush) 0 unit IV.FLUSH PRN PRN PRN Reason: Flush PICC Line Heparin Sodium (Porcine) (Heparin Central Flush) 0 unit IV.FLUSH DAILY [facility] Meropenem 1,000 mg/ Sodium (Chloride) 100 mls @ 200 mls/hr IV.SIG Q8H [facility] Last Admin: 10/11/17 13:03 Dose: 200 mls/hr Pharmacy Profile Note (Vancomycin Consult Pharmacy) 0 mls @ 0 mls/hr OTHER UNSCH [facility] Sodium Chloride (Ns Inj) 1,000 mls @ 84 mls/hr IV.CONT .[id number] [facility] Last Admin: 10/11/17 08:31 Dose: 84 mls/hr Cefazolin Sodium 1,000 mg/ (Sodium Chloride) 100 mls @ 200 mls/hr IV.SIG PLASTICS [employer]OLING [employer]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 [facility] Stop: 10/13/17 07:59 Vancomycin HCl 1,000 mg/ (Sodium Chloride) 250 mls @ 250 mls/hr IV.SIG Q24H [facility] Magnesium Sulfate Inj 4 gm/ (Sodium Chloride) 100 mls @ 50 mls/hr IV.SIG UNSCH PRN PRN Reason: For Magnesium 0.9 - 1.1 mg/dL Magnesium Sulfate Inj 2 gm/ (Sodium Chloride) 100 mls @ 50 mls/hr IV.SIG UNSCH PRN PRN Reason: For Magnesium 1.2 - 1.6 mg/dL Potassium Chloride (Kcl 40 Meq Premix Inj) 40 meq in 100 mls @ 25 mls/hr IV.SIG Q2H PRN PRN Reason: For Potassium 2.8 - 3.2 mEq/L Potassium Chloride (Kcl 20 Meq Premix Inj) 20 meq in 100 mls @ 50 mls/hr IV.SIG Q2H PRN PRN Reason: For Potassium 3.3 - 3.5 mEq/L Potassium Chloride (Kcl 20 Meq Premix Inj) 20 meq in 100 mls @ 50 mls/hr IV.SIG Q2H PRN PRN Reason: For Potassium 2.8 - 3.2 mEq/L Potassium Phosphate 30 mmol/ (Sodium Chloride) 260 mls @ 42 mls/hr IV.SIG UNSCH PRN PRN Reason: SEE LABEL COMMENTS Sodium Phosphate 30 mmol/ (Sodium Chloride) 260 mls @ 42 mls/hr IV.SIG UNSCH PRN PRN Reason: For Phosphorus < 2.5 mg/dL Potassium Chloride (Kcl 40 Meq Premix Inj) 40 meq in 100 mls @ 25 mls/hr IV.SIG UNSCH PRN PRN Reason: For Potassium 3.3 - 3.5 mEq/L Lactulose (Lactulose Liq) 30 ml PO DAILY PRN PRN Reason: SEVERE CONSITIPATION Levothyroxine Sodium (Synthroid) 125 mcg PO DAILY@0600 [facility] Last Admin: 10/11/17 08:32 Dose: 125 mcg Magnesium Oxide (Mag-Ox) 800 mg PO UNSCH PRN PRN Reason: For Magnesium 1.2 - 1.6 mg/dL Miscellaneous Information ([facility] Ordered Lab Info) 0 each OTHER ONCE ONE Stop: 10/14/17 07:46 Morphine Sulfate (Morphine Inj) 2 mg IV.PUSH Q2H PRN PRN Reason: PAIN SCALE 6 TO 10 Ondansetron HCl (Zofran Liq) 4 mg PO Q6H PRN PRN Reason: NAUSEA OR VOMITING Potassium Bicarb/Potassium Chloride (K-Lyte Cl Eff) 50 meq PO UNSCH PRN PRN Reason: For Potassium 3.3 - 3.5 mEq/L Potassium Phosphate (K-Phos Original) 2,000 mg PO Q4H PRN PRN Reason: Phosphorus Less Than 2.5 mg/dL Potassium Phosphate (K-Phos Original) 2,000 mg PO UNSCH PRN PRN Reason: SEE LABEL COMMENTS Prednisone (Deltasone) 10 mg PO BID [facility] Last Admin: 10/11/17 08:32 Dose: 10 mg Prochlorperazine (Compazine Supp) 25 mg RECTAL Q12HR PRN PRN Reason: NAUSEA OR VOMITING Senna/Docusate Sodium (Natalie-Colace) 1 tab PO BID [facility] Last Admin: 10/11/17 08:37 Dose: Not Given Sennosides (Senokot) 17.2 mg PO Q12H PRN PRN Reason: Moderate Constipation Sodium Chloride (Ns Flush) 2 ml IV.FLUSH BID [facility] Last Admin: 10/11/17 08:33 Dose: 2 ml Sodium Chloride (Ns Flush) 2 ml IV.FLUSH PRN PRN PRN Reason: FLUSH AFTER USING IV ACCESS Last Admin: 10/11/17 08:33 Dose: 2 ml Sodium Chloride (Ns Flush) 0 ml IV.FLUSH DAILY [facility] Sodium Chloride (Ns Flush) 0 ml IV.FLUSH PRN PRN PRN Reason: FLUSH AFTER USING IV ACCESS Sodium Chloride (Ns Flush) 0 ml IV.FLUSH PRN PRN PRN Reason: Flush After Blood Draws Zinc Sulfate (Zinc-220) 220 mg PO DAILY [facility] Last Admin: 10/11/17 08:32 Dose: 220 mg Allergies Allergy/AdvReac Type Severity Reaction Status Date / Time No Known Allergies Allergy Unknown Uncoded 07/22/17 19:30 Home Medications Medication Instructions Recorded Confirmed Type Calcium 500 With D 10/11/17 10/11/17 History Cardizem See Label Instructions .ROUTE 10/11/17 10/11/17 History .COMPLEX MDD 60mg ascorbic acid (vitamin C) 10/11/17 History fentanyl 10/11/17 History furosemide [Lasix] 20 mg PO DAILY 10/11/17 10/11/17 History guaifenesin 10/11/17 History levothyroxine [Synthroid] 125 mcg PO DAILY 10/11/17 10/11/17 History pantoprazole [Protonix] 40 mg PO DAILY 10/11/17 10/11/17 History sodium chloride 10/11/17 History zinc sulfate 220 mg PO DAILY 10/11/17 10/11/17 History Physical Exam Vital signs: Vital Signs 10/11/17 04:00 10/11/17 06:00 10/11/17 07:20 Temperature 97.9 F Pulse Rate 66 69 71 Respiratory Rate 25 H 12 Blood Pressure 120/56 L Pulse Oximetry 97 100 10/11/17 08:00 10/11/17 09:00 10/11/17 10:00 Temperature 97.8 F Pulse Rate 68 72 76 Respiratory Rate 10 L 15 13 Blood Pressure 111/56 L 129/63 139/68 Pulse Oximetry 100 100 99 10/11/17 10:52 10/11/17 10:54 10/11/17 11:00 Temperature Pulse Rate 76 88 Respiratory Rate 18 36 H Blood Pressure 118/58 L Pulse Oximetry 99 100 10/11/17 12:00 Temperature 97.8 F Pulse Rate 80 Respiratory Rate 27 H Blood Pressure 109/60 Pulse Oximetry 100 Intake & Output 10/10/17 10/11/17 10/11/17 18:59 06:59 18:59 Intake Total 100 / 100 250 / 250 Output Total 250 / 250 700 / 700 Balance -150 / -150 -450 / -450 Weight 50.4 kg Intake: IV 100 / 100 250 / 250 Merrem Inj 1,000 MG In NS Inj 100 / 100 100 ML @ 200 mls/hr IV.SIG Q8H [facility] Rx#:[id number] Vancomycin Inj 1,000 MG In NS 250 / 250 Inj 250 ML @ 250 mls/hr IV.SIG ONCE ONE Rx#:[id number] Output: Urine Amount (Catheter) 250 / 250 700 / 700 Indwelling Urethral Catheter 250 / 250 700 / 700 Other: Date of Last Bowel Movement 10/11/17 10/11/17 # Bowel Movements 3 Weight On Admission 50.4 kg Narrative: No apparent anxiety moist mucous membranes PERRLA respirations nonlabored moves all 4 extremities to command skin without rash digits warm well perfused Right trunk wound dressed with dry dressing No surrounding erythema - Urinary Catheter Management Indwelling Urethral Catheter Cath placed during this visit: yes Reason for continuing: Acute urinary retention Insertion date: 09/25/17 Assessment and Plan - Assessment (1) Open wound of trunk Status: Acute - Plan 62-year-old female with a right torso wound status post necrotizing fasciitis debridement Risks benefits and alternative treatments discussed All questions answered and the patient expressed understanding Patient elected to assume the risks of split-thickness skin graft from any available site to right torso wound Informed consent obtained N.p.o. after midnight
[2017-10-11] MEDS: Potassium Chlor 40 mEq Premix 40 MEQ/100 ML PIGGYBACK IV.SIG PRN ×2 (14:37→18:06)
[2017-10-11] MEDS: Morphine Inj 4 MG/ML Vial IV.PUSH PRN (14:37)
[2017-10-11] MEDS: Calcium/Vitamin D 250/125 MG Tablet PO SCH (17:28)
[2017-10-11] MEDS: Ascorbic Acid 500 MG Tablet NG/OG SCH (20:58)
[2017-10-12] MEDS ORDERED: Chlorhexidine Gluconate 2% 1 Pack (2 Cloths) TOPICAL PRN (04:00)
[2017-10-12] MEDS: Chlorhexidine Gluconate 2% 1 Pack (2 Cloths) TOPICAL SCH (04:27)
[2017-10-12] MEDS: Levothyroxine 125 MCG Tablet PO SCH (05:13)
[2017-10-12 05:41] LABS: Alanine Aminotransferase 8 U/L (10-53); Anion Gap 5 meq/L (5-15); Aspartate Aminotransferase 11 U/L (15-37); Blood Urea Nitrogen 14 mg/dL (7-18); Calcium 10.1 mg/dL (8.5-10.1); Carbon Dioxide 34.6 meq/L (21.0-32.0); Chloride 102 meq/L (98-107); Glomerular Filtration Rate Greater Than 89 mL/min (>89); Glucose,Random 73 mg/dL (74-106); Magnesium 1.6 mg/dL (1.5-2.5); Phosphorus 2.3 mg/dL (2.5-4.9); Potassium 4.7 meq/L (3.5-5.1); Sodium 142 meq/L (136-145)
[2017-10-12 05:44] LABS: Alkaline Phosphatase 79 U/L (45-117); Total Protein 5.2 g/dL (6.4-8.2)
[2017-10-12 05:53] LABS: Baso # (Auto) 0.1 th/mm3 (0.0-0.2); Baso % (Auto) 0.6 % (0.0-2.0); Eos % (Auto) 0.1 % (0.0-4.0); Hematocrit 21.1 % (35.0-46.0); Lymph % (Auto) 10.3 % (9.0-44.0); Mean Corpuscular Hemoglobin 26.2 pg (27.0-34.0); Mono # (Auto) 0.5 th/mm3 (0.0-0.9); Mono % (Auto) 5.2 % (0.0-8.0); Neut # (Auto) 8.3 th/mm3 (1.8-7.7); Neut % (Auto) 83.8 % (16.0-70.0); Platelet Count 336 th/mm3 (150-450); Red Blood Count 2.57 mil/mm3 (4.00-5.30); Red Cell Distribution Width 17.4 % (11.6-17.2); White Blood Count 9.9 th/mm3 (4.0-11.0)
[2017-10-12 06:05] LABS: Hemoglobin 6.7 gm/dL (11.6-15.3)
[2017-10-12 06:33] LABS: INR 1.1 Ratio; Prothrombin Time 11.4 sec (9.8-11.6)
[2017-10-12 07:53] LABS: Lymphocytes 9 % (9-44); Monocytes 10 % (0-8); Ovalocytes 1+
[2017-10-12 07:55] LABS: Platelet Estimate Normal (Normal); Platelet Morphology Normal (Normal)
[2017-10-12] MEDS: Heparin Central Flush 100 UNIT/ML 5 ML Vial IV.FLUSH SCH (08:15)
[2017-10-12] MEDS: predniSONE 10 MG Tablet PO SCH ×2 (08:16→21:15)
[2017-10-12] MEDS: Furosemide 20 MG Tablet PO SCH (08:16)
[2017-10-12] MEDS: Vancomycin Inj 1,000 MG in Sodium Chlor 0.9% Inj 250 ML IV.SIG SCH (08:17)
[2017-10-12] MEDS: Senna/Docusate Sodium 8.6/50 MG Tablet PO SCH ×2 (08:17→21:34)
--- NOTE | 2017-10-12 08:40 | P.PNIM ---
Subjective Interval history: Mrs. Eldridge was afebrile with stable vital signs overnight. Discussed with nursing; patient will be receiving transfusion; plan for skin grafting today with Dr. Ricardo. Patient reports that she is doing ok at this time. Patient does not report back pain. Patient reports some loose stools. Patient also reports some bilateral feet numbness/tingling. No respiratory concerns. Physical Exam Vital signs: Vital Signs 10/11/17 09:00 10/11/17 10:00 10/11/17 10:52 Temperature Pulse Rate 72 76 76 Respiratory Rate 15 13 18 Blood Pressure 129/63 139/68 Pulse Oximetry 100 99 10/11/17 10:54 10/11/17 11:00 10/11/17 12:00 Temperature 97.8 F Pulse Rate 88 80 Respiratory Rate 36 H 27 H Blood Pressure 118/58 L 109/60 Pulse Oximetry 99 100 100 10/11/17 13:00 10/11/17 14:00 10/11/17 15:00 Temperature Pulse Rate 93 H 80 80 Respiratory Rate 20 18 12 Blood Pressure 111/64 109/65 111/62 Pulse Oximetry 98 99 100 10/11/17 16:00 10/11/17 16:11 10/11/17 17:00 Temperature 98.5 F Pulse Rate 83 81 85 Respiratory Rate 24 18 27 H Blood Pressure 119/69 101/57 L Pulse Oximetry 100 100 10/11/17 18:00 10/11/17 19:00 10/11/17 20:00 Temperature 98.1 F Pulse Rate 81 81 80 Respiratory Rate 15 15 13 Blood Pressure 119/64 105/57 L 98/56 L Pulse Oximetry 100 100 100 10/11/17 20:17 10/11/17 21:00 10/11/17 22:00 Temperature Pulse Rate 83 83 80 Respiratory Rate 20 15 13 Blood Pressure 98/55 L 110/55 L Pulse Oximetry 100 100 100 10/11/17 23:00 10/12/17 00:00 10/12/17 00:52 Temperature 97.9 F Pulse Rate 80 76 74 Respiratory Rate 13 11 L 16 Blood Pressure 103/55 L 103/55 L Pulse Oximetry 100 100 10/12/17 01:00 10/12/17 02:00 10/12/17 03:00 Temperature Pulse Rate 79 85 79 Respiratory Rate 17 25 H 46 H Blood Pressure 102/59 L 109/58 L 99/55 L Pulse Oximetry 100 100 100 10/12/17 04:00 10/12/17 04:16 10/12/17 05:00 Temperature 99.1 F Pulse Rate 89 83 84 Respiratory Rate 20 20 43 H Blood Pressure 124/68 97/56 L Pulse Oximetry 100 100 10/12/17 06:00 Temperature Pulse Rate 82 Respiratory Rate 57 H Blood Pressure 98/57 L Pulse Oximetry 100 Intake & Output 10/11/17 10/12/17 10/12/17 18:59 06:59 18:59 Intake Total 450 / 450 1200 / 1200 Output Total 1650 / 1650 400 / 400 Balance -1200 / -1200 800 / 800 Weight 50.4 kg Intake: IV 450 / 450 1200 / 1200 NS Inj 1,000 ML @ 84 mls/hr IV. 1000 / 1000 CONT .[id number] [facility] Rx#:[id number] Merrem Inj 1,000 MG In NS Inj 100 / 100 100 / 100 100 ML @ 200 mls/hr IV.SIG Q8H [facility] Rx#:[id number] KCl 40 mEq Premix Inj 40 meq In 100 / 100 100 / 100 100 ml @ 25 mls/hr IV.SIG Q2H [facility] Rx#:[id number] Vancomycin Inj 1,000 MG In NS 250 / 250 Inj 250 ML @ 250 mls/hr IV.SIG ONCE ONE Rx#:[id number] Output: Urine Amount (Catheter) 1650 / 1650 400 / 400 Indwelling Urethral Catheter 1650 / 1650 400 / 400 Other: Date of Last Bowel Movement 10/11/17 10/12/17 # Bowel Movements 4 Narrative: Gen: No acute distress Skin: right back/flank with large area covered with gauze/dry dressing HEENT: EOM grossly I. Mouth: normal oral mucosa. Neck: No appreciated lymphadenopathy. Tracheostomy in place Chest/pulmonary: CTAB; normal rate Cardiovascular: Normal rate and rhythm; grossly normal perfusion GI/abdomen: Soft, nontender, bowel sounds present. No pain to palpation Neuro: Patient generally aware of orientation; no focal CN or peripheral defects - Urinary Catheter Management Indwelling Urethral Catheter Cath placed during this visit: yes Reason for continuing: Acute urinary retention Insertion date: 09/25/17 Results - Labs CBC & Chem 7: 10/12/17 15:10 10/12/17 04:00 Laboratory Results - last 24 hr 10/11/17 10/11/17 10/11/17 03:50 07:45 07:45 WBC RBC Hgb Hct MCV MCH MCHC RDW Plt Count MPV Prelim Diff (Auto) Neut % (Auto) Lymph % (Auto) [place] % (Auto) Eos % (Auto) Baso % (Auto) Neut # (Auto) Lymph # (Auto) [place] # (Auto) Eos # (Auto) Baso # (Auto) WBC Differential Seg Neuts % (Manual) Band Neuts % (Manual) Lymphocytes % (Manual) Monocytes % (Manual) Abs Neuts (Manual) Differential Comment Platelet Estimate Platelet Morphology Ovalocytes PT INR APTT 24.7 Sodium Cancelled Potassium Cancelled Chloride Cancelled Carbon Dioxide Cancelled Anion Gap Cancelled BUN Cancelled Creatinine Cancelled Estimated GFR Cancelled Random Glucose Cancelled Calcium Cancelled Prot Corrected Calcium Cancelled Phosphorus Magnesium Total Bilirubin Cancelled Direct Bilirubin Indirect Bilirubin AST Cancelled ALT Cancelled Alkaline Phosphatase Cancelled Total Creatine Kinase Total Protein Cancelled Albumin Cancelled Prealbumin Urine Color Urine Clarity Urine pH Ur Specific [place] Urine Protein Urine Glucose (UA) Urine Ketones Urine Occult Blood Urine Nitrate Urine Bilirubin Urine Urobilinogen Ur Leukocyte Esterase Urine RBC Urine WBC Urine Mucus Micro UA Comment Urine Culture Comments Nasal Screen MRSA (PCR) Mrsa detected Stl C.difficile Tox PCR St C. diff Tox Epid 027 MTS Gel Crossmatch 10/11/17 10/11/17 10/11/17 07:45 10:30 10:30 WBC RBC Hgb Hct MCV MCH MCHC RDW Plt Count MPV Prelim Diff (Auto) Neut % (Auto) Lymph % (Auto) [place] % (Auto) Eos % (Auto) Baso % (Auto) Neut # (Auto) Lymph # (Auto) [place] # (Auto) Eos # (Auto) Baso # (Auto) WBC Differential Seg Neuts % (Manual) Band Neuts % (Manual) Lymphocytes % (Manual) Monocytes % (Manual) Abs Neuts (Manual) Differential Comment Platelet Estimate Platelet Morphology Ovalocytes PT INR APTT Sodium 139 Potassium 3.2 L Chloride 93 L Carbon Dioxide 37.9 H Anion Gap 8 BUN 13 Creatinine 0.61 Estimated GFR Greater than 89 Random Glucose 74 Calcium 10.3 H Prot Corrected Calcium Phosphorus Magnesium Total Bilirubin 0.2 Direct Bilirubin 0.1 Indirect Bilirubin 0.1 AST 12 L ALT 10 Alkaline Phosphatase 80 Total Creatine Kinase Less than 7 L Total Protein 5.3 L Albumin 1.9 L Prealbumin Urine Color Colorless Urine Clarity Clear Urine pH 8.0 Ur Specific [place] 1.004 Urine Protein Negative Urine Glucose (UA) Negative Urine Ketones Negative Urine Occult Blood Negative Urine Nitrate Negative Urine Bilirubin Negative Urine Urobilinogen Less than 2 Ur Leukocyte Esterase Negative Urine RBC Less than 1 Urine WBC 4 Urine Mucus Few H Micro UA Comment Cath-culture not ind Urine Culture Comments Cath-cult not ind Nasal Screen MRSA (PCR) Stl C.difficile Tox PCR Negative St C. diff Tox Epid 027 Negative MTS Gel Crossmatch 10/12/17 10/12/17 10/12/17 04:00 04:00 04:00 WBC 9.9 RBC 2.57 L Hgb 6.7 L* Hct 21.1 L MCV 82.0 MCH 26.2 L MCHC 32.0 RDW 17.4 H Plt Count 336 MPV 6.0 L Prelim Diff (Auto) Slide review pending Neut % (Auto) 83.8 H Lymph % (Auto) 10.3 [place] % (Auto) 5.2 Eos % (Auto) 0.1 Baso % (Auto) 0.6 Neut # (Auto) 8.3 H Lymph # (Auto) 1.0 [place] # (Auto) 0.5 Eos # (Auto) 0.0 Baso # (Auto) 0.1 WBC Differential Manual diff final Seg Neuts % (Manual) 78 H Band Neuts % (Manual) 3 Lymphocytes % (Manual) 9 Monocytes % (Manual) 10 H Abs Neuts (Manual) 8.0 H Differential Comment . Platelet Estimate Normal Platelet Morphology Normal Ovalocytes 1+ H PT INR APTT Sodium 142 Potassium 4.7 D Chloride 102 D Carbon Dioxide 34.6 H Anion Gap 5 BUN 14 Creatinine 0.63 Estimated GFR Greater than 89 Random Glucose 73 L Calcium 10.1 Prot Corrected Calcium Phosphorus 2.3 L Magnesium 1.6 Total Bilirubin 0.2 Direct Bilirubin Indirect Bilirubin AST 11 L ALT 8 L Alkaline Phosphatase 79 Total Creatine Kinase Total Protein 5.2 L Albumin 2.0 L Prealbumin 15 L Urine Color Urine Clarity Urine pH Ur Specific [place] Urine Protein Urine Glucose (UA) Urine Ketones Urine Occult Blood Urine Nitrate Urine Bilirubin Urine Urobilinogen Ur Leukocyte Esterase Urine RBC Urine WBC Urine Mucus Micro UA Comment Urine Culture Comments Nasal Screen MRSA (PCR) Stl C.difficile Tox PCR St C. diff Tox Epid 027 MTS Gel Crossmatch 10/12/17 10/12/17 06:05 06:35 WBC RBC Hgb Hct MCV MCH MCHC RDW Plt Count MPV Prelim Diff (Auto) Neut % (Auto) Lymph % (Auto) [place] % (Auto) Eos % (Auto) Baso % (Auto) Neut # (Auto) Lymph # (Auto) [place] # (Auto) Eos # (Auto) Baso # (Auto) WBC Differential Seg Neuts % (Manual) Band Neuts % (Manual) Lymphocytes % (Manual) Monocytes % (Manual) Abs Neuts (Manual) Differential Comment Platelet Estimate Platelet Morphology Ovalocytes PT 11.4 INR 1.1 APTT 25.0 Sodium Potassium Chloride Carbon Dioxide Anion Gap BUN Creatinine Estimated GFR Random Glucose Calcium Prot Corrected Calcium Phosphorus Magnesium Total Bilirubin Direct Bilirubin Indirect Bilirubin AST ALT Alkaline Phosphatase Total Creatine Kinase Total Protein Albumin Prealbumin Urine Color Urine Clarity Urine pH Ur Specific [place] Urine Protein Urine Glucose (UA) Urine Ketones Urine Occult Blood Urine Nitrate Urine Bilirubin Urine Urobilinogen Ur Leukocyte Esterase Urine RBC Urine WBC Urine Mucus Micro UA Comment Urine Culture Comments Nasal Screen MRSA (PCR) Stl C.difficile Tox PCR St C. diff Tox Epid 027 MTS Gel Crossmatch See Detail - Imaging Impressions Chest X-Ray 10/11/17 07:10 CONCLUSION: 1. Mild increasing infiltrate in the right lung base. 2. Stable atelectasis in the left lung base. Assessment and Plan - Plan Mrs. 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 On 4 L O2 via NC -Continue O2 supplementation as needed, tracheostomy management -Conitnue PRN nebulizers Hypothyroidism -Continue home Levothyroxine GI Impression: PEG in place -NPO for surgery GI PPX -Will continue prior Pantoprazole DVT PPX -SCD's while immediately post-operative Code Status: Full code Discussed Condition With: Nursing staff
[2017-10-12] MEDS ORDERED: Propofol Inj 500 MG/50 ML Vial ONE (10:58)
[2017-10-12] MEDS ORDERED: *morphine SULFATE 4 MG/ML PERIprocedure ONLY ONE (13:49)
[2017-10-12] MEDS ORDERED: fentaNYL Citrate Inj 100 MCG/2 ML Ampul ONE (13:54)
[2017-10-12] MEDS ORDERED: Lidocaine PF 1% Inj 5 ML Syringe INFILTRATN ONE (14:51)
[2017-10-12 15:39] LABS: Hematocrit 28.2 % (35.0-46.0); Hemoglobin 9.5 gm/dL (11.6-15.3); Mean Corpuscular HGB Conc 33.6 % (32.0-36.0); Mean Corpuscular Hemoglobin 27.4 pg (27.0-34.0); Mean Corpuscular Volume 81.5 fL (80.0-100.0); Mean Platelet Volume 5.3 fL (7.0-11.0); Platelet Count 394 th/mm3 (150-450); Red Blood Count 3.47 mil/mm3 (4.00-5.30); Red Cell Distribution Width 16.8 % (11.6-17.2); White Blood Count 14.1 th/mm3 (4.0-11.0)
--- NOTE | 2017-10-12 16:14 | P.OP ---
Date of procedure: 10/12/17 Procedure: Split-thickness skin graft to right torso wound, 41 x 15 cm ([id number], [id number] x 5, [id number]) Anesthesia: GETA Surgeon: Yogi Ricardo MD Operation and Findings: 62-year-old female with a right torso wound following multiple debridements by the general surgery team for necrotizing fasciitis. Risks benefits alternative treatments discussed. All questions answered and the patient and patient's power of insurance defense attorney expressed understanding. Patient and patient's power of insurance defense attorney elected to assume the risks of split thickness skin graft to the right torso. Informed consent obtained. The surgical site was marked in the preoperative holding bay. The patient was given antibiotics on-call to the operating room. The patient was taken to the operating room and all pressure points were padded. A surgical timeout was performed. After the smooth induction of general anesthesia, the donor sites were instilled with quarter percent Marcaine with epinephrine. The VAC dressing was removed. Surgical site was prepped and draped in the usual sterile fashion. The right torso wound was pulse lavaged with antibiotic irrigation totaling 3 L. Split-thickness skin grafts were taken from the right back, right buttock, and right lateral thigh. These were meshed in a 2-1 fashion and stapled over the wound. The donor sites were dressed with Xeroform and a VAC dressing encompassing the donor sites and wound was fashioned. All needle sponge and instrument counts were correct 2. The patient was awoken from anesthesia and arrived stable and doing well the PACU.
[2017-10-12] MEDS: Morphine Inj 4 MG/ML Vial IV.PUSH PRN ×2 (17:07→21:31)
[2017-10-12] MEDS: Sod Chloride 0.9% Inj 1,000 ML IV.CONT SCH (18:44)
[2017-10-12] MEDS: Ascorbic Acid 500 MG Tablet NG/OG SCH (21:15)
[2017-10-12] MEDS: Calcium/Vitamin D 250/125 MG Tablet PO SCH (21:15)
[2017-10-13] MEDS: Morphine Inj 4 MG/ML Vial IV.PUSH PRN ×3 (02:03→20:50)
[2017-10-13] MEDS: Levothyroxine 125 MCG Tablet PO SCH (05:53)
[2017-10-13] MEDS: Sod Chloride 0.9% Inj 1,000 ML IV.CONT SCH ×3 (05:58→18:02)
[2017-10-13] MEDS: Chlorhexidine Gluconate 2% 1 Pack (2 Cloths) TOPICAL SCH (06:02)
--- NOTE | 2017-10-13 08:00 | P.PNIM ---
Subjective Interval history: Mrs. Eldridge was afebrile with borderline tachycardia overnight. Discussed with nursing staff; no new concerns Patient reports that she is hungry and that she wants to eat (discussed with prior facility ([facility]) yesterday evening; patient was on tube feeding diet but unclear when last oral intake was). Patient states that she has continued loose stools. No respiratory or urinary concerns Physical Exam Vital signs: Vital Signs 10/12/17 08:00 10/12/17 09:00 10/12/17 09:08 Temperature 98 F 80 F L Pulse Rate 81 84 84 Respiratory Rate 27 H 15 15 Blood Pressure 112/64 122/66 Pulse Oximetry 96 100 100 10/12/17 09:27 10/12/17 10:05 10/12/17 13:38 Temperature 97.8 F 96.5 F L Pulse Rate 93 H 92 H 80 Respiratory Rate 18 19 Blood Pressure 122/68 129/64 118/61 Pulse Oximetry 100 96 92 L 10/12/17 13:45 10/12/17 14:00 10/12/17 14:06 Temperature 97.0 F L 97.0 F L Pulse Rate 75 66 66 Respiratory Rate 19 25 H Blood Pressure 124/70 118/62 Pulse Oximetry 95 100 100 10/12/17 14:16 10/12/17 14:18 10/12/17 15:00 Temperature 97.7 F Pulse Rate 78 76 63 Respiratory Rate 38 H 35 H 36 H Blood Pressure 156/74 H 101/56 L Pulse Oximetry 94 L 10/12/17 15:01 10/12/17 15:17 10/12/17 16:00 Temperature 98 F Pulse Rate 64 65 88 Respiratory Rate 34 H 21 11 L Blood Pressure 152/112 H 153/72 H 110/62 Pulse Oximetry 99 100 100 10/12/17 17:00 10/12/17 17:15 10/12/17 18:00 Temperature Pulse Rate 81 82 87 Respiratory Rate 40 H 14 44 H Blood Pressure 115/61 117/61 Pulse Oximetry 100 100 10/12/17 19:00 10/12/17 19:01 10/12/17 19:49 Temperature Pulse Rate 88 89 104 H Respiratory Rate 29 H 29 H 22 Blood Pressure 122/56 L Pulse Oximetry 97 100 100 10/12/17 20:00 10/12/17 21:00 10/12/17 22:00 Temperature 98.2 F Pulse Rate 93 H 93 H 80 Respiratory Rate 32 H 17 16 Blood Pressure 92/50 L 96/54 L 135/70 Pulse Oximetry 100 100 100 10/12/17 23:00 10/13/17 00:00 10/13/17 00:21 Temperature 98.3 F Pulse Rate 86 85 84 Respiratory Rate 18 20 20 Blood Pressure 109/58 L 107/58 L Pulse Oximetry 99 100 10/13/17 01:00 10/13/17 02:00 10/13/17 02:01 Temperature Pulse Rate 97 H 99 H 102 H Respiratory Rate 19 30 H 33 H Blood Pressure 98/53 L 97/58 L Pulse Oximetry 100 97 99 10/13/17 03:00 10/13/17 04:00 10/13/17 04:13 Temperature Pulse Rate 80 77 72 Respiratory Rate 13 17 18 Blood Pressure 101/55 L 96/53 L Pulse Oximetry 100 100 10/13/17 05:00 10/13/17 05:06 10/13/17 06:00 Temperature Pulse Rate 94 H 95 H 86 Respiratory Rate 31 H 24 26 H Blood Pressure 105/56 L Pulse Oximetry 100 98 95 10/13/17 06:01 10/13/17 07:00 Temperature Pulse Rate 85 82 Respiratory Rate 32 H 14 Blood Pressure 107/66 102/58 L Pulse Oximetry 97 98 Intake & Output 10/12/17 10/13/17 10/13/17 18:59 06:59 18:59 Intake Total 1700 / 1700 1840 / 1840 350 / 350 Output Total 2200 / 2200 925 / 925 Balance -500 / -500 915 / 915 350 / 350 Weight 53.1 kg Intake: IV 1000 / 1000 1100 / 1100 350 / 350 NS Inj 1,000 ML @ 84 mls/hr IV. 1000 / 1000 1000 / 1000 CONT .[id number] [facility] Rx#:[id number] Merrem Inj 1,000 MG In NS Inj 100 / 100 100 / 100 100 ML @ 200 mls/hr IV.SIG Q8H [facility] Rx#:[id number] Vancomycin Inj 1,000 MG In NS 250 / 250 Inj 250 ML @ 250 mls/hr IV.SIG Q24H [facility] Rx#:[id number] Oral 360 / 360 Tube Feeding 200 / 200 Water Bolus Amount 180 / 180 Anesthesia Amount 700 / 700 Output: Estimated Blood Loss 50 / 50 Urine Amount (Catheter) 2149 400 / 400 Indwelling Urethral Catheter 2149 400 / 400 Wound Drainage 400 / 400 RIGHT ABDOMEN 400 / 400 Wound Vac Amount 125 / 125 Right Abdomen 125 / 125 Other: Mode Setting Right Abdomen Continuous Continuous Date of Last Bowel Movement 10/12/17 10/13/17 # Bowel Movements 5 2 Narrative: Gen: No acute distress Skin: right back/flank with large area covered post-operatively HEENT: EOM grossly I. Mouth: normal oral mucosa. Neck: No appreciated lymphadenopathy. Tracheostomy in place Chest/pulmonary: CTAB; normal rate Cardiovascular: Normal rate and rhythm; grossly normal perfusion GI/abdomen: Soft, nontender, bowel sounds present. No pain to palpation Neuro: Patient generally aware of orientation; no focal CN or peripheral defects - Urinary Catheter Management Indwelling Urethral Catheter Cath placed during this visit: yes Reason for continuing: Acute urinary retention Insertion date: 09/25/17 Results - Labs CBC & Chem 7: 10/13/17 10:45 10/13/17 10:45 Laboratory Results - last 24 hr 10/12/17 10/12/17 10/12/17 06:35 06:35 15:10 WBC 14.1 H RBC 3.47 L Hgb 9.5 L D Hct 28.2 L MCV 81.5 MCH 27.4 MCHC 33.6 RDW 16.8 Plt Count 394 MPV 5.3 L Blood Type A Positive Blood Type Recheck Not needed Antibody Screen Negative MTS Gel Crossmatch See Detail Assessment and Plan - Plan Mrs. 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 On 4 L O2 via NC -Continue O2 supplementation as needed, tracheostomy management -Conitnue PRN nebulizers Hypothyroidism -Continue home Levothyroxine GI Impression: PEG in place. Concern for ability to swallow -Will continue tube feeds -Will order speech evaluation for possibility for oral intake GI PPX -Will continue prior Pantoprazole Anemia Impression: Hgb 10/12 9.5-> 7.7 10/13 post-operatively -Will monitor CBC DVT PPX -SCD's while immediately post-operative Code Status: Full code Discharge Planning: Pending assurance of st
[2017-10-13] MEDS: Senna/Docusate Sodium 8.6/50 MG Tablet PO SCH ×2 (09:13→20:30)
[2017-10-13] MEDS: predniSONE 10 MG Tablet PO SCH ×2 (09:13→20:30)
[2017-10-13] MEDS: Furosemide 20 MG Tablet PO SCH (09:13)
[2017-10-13] MEDS: Vancomycin Inj 1,000 MG in Sodium Chlor 0.9% Inj 250 ML IV.SIG SCH (09:13)
[2017-10-13] MEDS: Heparin Central Flush 100 UNIT/ML 5 ML Vial IV.FLUSH SCH (09:17)
[2017-10-13 10:59] LABS: Baso % (Auto) 0.3 % (0.0-2.0); Eos % (Auto) 0.3 % (0.0-4.0); Hematocrit 24.4 % (35.0-46.0); Hemoglobin 7.7 gm/dL (11.6-15.3); Lymph % (Auto) 11.5 % (9.0-44.0); Mean Corpuscular HGB Conc 31.4 % (32.0-36.0); Mean Corpuscular Hemoglobin 25.9 pg (27.0-34.0); Mean Corpuscular Volume 82.4 fL (80.0-100.0); Mean Platelet Volume 5.5 fL (7.0-11.0); Mono # (Auto) 1.2 th/mm3 (0.0-0.9); Mono % (Auto) 6.7 % (0.0-8.0); Neut # (Auto) 14.3 th/mm3 (1.8-7.7); Neut % (Auto) 81.2 % (16.0-70.0); Platelet Count 319 th/mm3 (150-450); Red Blood Count 2.97 mil/mm3 (4.00-5.30); White Blood Count 17.6 th/mm3 (4.0-11.0)
[2017-10-13 11:27] LABS: Calcium 9.2 mg/dL (8.5-10.1); Potassium 3.8 meq/L (3.5-5.1)
--- NOTE | 2017-10-13 11:55 | P.DIET ---
Nutritional Evaluation Type of nutrition evaluation: initial Nutrition consult regarding: Tube Feeding Subjective Subjective Comments: PEG tube inplace. Previous admission here 07/22/17 Wt 55.9kg Objective - Diagnosis Full thickness Skin /Graft to Right Torso wound - Indications of Malnutrition Characteristics: Weight loss - Objective [place] body weight: 54.5 kg (120-lb) % IBW: 92 Body Weight Used for Calculations: Actual (Assessment here uses initial bedscale wt 50.4kg) Energy Needs - Lower Range (kCal/kg): 30 Energy Needs - Upper Range (kCal/kg): 35 Lower Limit kCal/kg (kCals): 1,512 Upper Limit kCal/kg (kCals): 1,764 Lower Limit Protein Factor (Grams per Kg): 1.2 Upper Limit Protein Factor (Grams per Kg): 1.5 Lower Protein Needs (Protein): 61 Upper Protein Needs (Protein): 76 Fluid Factor (ml/kg): 30 Estimated Fluid Needs (ml): 1,512 Diet Order: TF'ing Vital 1.5 @ goal rate 70ml/hr Objective Comments: PMH: Anxiety, Depression, hypothyroidism, Developmental delay, Migraines, GERD, s/p tracheostomy and PEG tube placement; pt is currently being treated for necrotizing fasciitis Labs Include: Albumin 2.0, Prealbumin 15 Meds Include: ZnSO4, Vit C, Oscal w/D, Lasix, Synthorid, Zofran, Protonix, Prednisone +2BM(loose stools), c-diff negative, +UOP 2550ml Feeding - Current Tube Feeding Tube Feeding Product: Vital 1.5 Assessment Assessment: Pt is at nutritional risk r/t diagnosis w/recent wt loss and need for TF'ing via PEG. For TF'ing w/Vital 1.5, Rec a goal rate @ 50ml/hr x 22-hr(TF'ing held daily for Synthroid), to offer 1650 kcal, 74.3g Protein and 840ml free water. Free water flushes per MD, as ordered. Rec Ki 1-packet bid via PEG tube to support wound healing. Pt w/a reported h/o DM previous admission, monitor glucose closely. Low albumin and prealbumin noted-albumin and prealbumin are negative acute-phase proteins and reflect severity of inflammatory process vs nutritional status. Additional Rec to follow r/t Clinical Course. Recommendations: 1.For TF'ing w/Vital 1.5, Rec a goal rate @ 50ml/hr x 22-hr(TF'ing held daily for Synthroid) 2.Free water flushes per MD, as ordered 3.Rec Ki 1-packet bid via PEG tube to support wound healing 4.Pt w/a reported h/o DM previous admission, monitor glucose closely 5.Additional Rec to follow r/t Clinical Course Dietitian to Monitor: Lab values, Renal labs, Glucose level, Intake & Output, Tube feeding tolerance, Weight change, Wound/skin status, Medical course
--- NOTE | 2017-10-13 14:23 | P.PNID ---
Infectious Disease Brief Note ID consult dictated. Patient status post skin grafting of abdominal wall and chest wall area of necrotic fasciitis. Clinically appears stable. Recommend: Continue antibiotics with vancomycin meropenem for 72 hours in the post procedure period and then discontinue all antibiotics. Please call if additional input is needed. I will sign off. Skin graft vital Signs - 24 hr 10/12/17 15:00 10/12/17 15:01 10/12/17 15:17 Temperature 97.7 F Pulse Rate 63 64 65 Respiratory Rate 36 H 34 H 21 Blood Pressure 101/56 L 152/112 H 153/72 H Pulse Oximetry 94 L 99 100 10/12/17 16:00 10/12/17 17:00 10/12/17 17:15 Temperature 98 F Pulse Rate 88 81 82 Respiratory Rate 11 L 40 H 14 Blood Pressure 110/62 115/61 Pulse Oximetry 100 100 10/12/17 18:00 10/12/17 19:00 10/12/17 19:01 Temperature Pulse Rate 87 88 89 Respiratory Rate 44 H 29 H 29 H Blood Pressure 117/61 122/56 L Pulse Oximetry 100 97 100 10/12/17 19:49 10/12/17 20:00 10/12/17 21:00 Temperature 98.2 F Pulse Rate 104 H 93 H 93 H Respiratory Rate 22 32 H 17 Blood Pressure 92/50 L 96/54 L Pulse Oximetry 100 100 100 10/12/17 22:00 10/12/17 23:00 10/13/17 00:00 Temperature 98.3 F Pulse Rate 80 86 85 Respiratory Rate 16 18 20 Blood Pressure 135/70 109/58 L 107/58 L Pulse Oximetry 100 99 100 10/13/17 00:21 10/13/17 01:00 10/13/17 02:00 Temperature Pulse Rate 84 97 H 99 H Respiratory Rate 20 19 30 H Blood Pressure 98/53 L Pulse Oximetry 100 97 10/13/17 02:01 10/13/17 03:00 10/13/17 04:00 Temperature Pulse Rate 102 H 80 77 Respiratory Rate 33 H 13 17 Blood Pressure 97/58 L 101/55 L 96/53 L Pulse Oximetry 99 100 100 10/13/17 04:13 10/13/17 05:00 10/13/17 05:06 Temperature Pulse Rate 72 94 H 95 H Respiratory Rate 18 31 H 24 Blood Pressure 105/56 L Pulse Oximetry 100 98 10/13/17 06:00 10/13/17 06:01 10/13/17 07:00 Temperature Pulse Rate 86 85 82 Respiratory Rate 26 H 32 H 14 Blood Pressure 107/66 102/58 L Pulse Oximetry 95 97 98 10/13/17 08:00 10/13/17 08:22 10/13/17 09:00 Temperature 97.2 F L Pulse Rate 78 83 98 H Respiratory Rate 16 18 12 Blood Pressure 123/60 114/57 L Pulse Oximetry 98 98 10/13/17 10:00 10/13/17 11:00 10/13/17 11:42 Temperature Pulse Rate 92 H 96 H 94 H Respiratory Rate 11 L 14 25 H Blood Pressure 108/59 L 137/62 Pulse Oximetry 93 L 95 10/13/17 12:00 10/13/17 13:00 Temperature 98.0 F Pulse Rate 101 H 99 H Respiratory Rate 32 H 28 H Blood Pressure 107/53 L 104/74 Pulse Oximetry 98 98 Laboratory Results - last 24 hr 10/12/17 10/13/17 10/13/17 15:10 10:45 10:45 WBC 14.1 H 17.6 H RBC 3.47 L 2.97 L Hgb 9.5 L D 7.7 L Hct 28.2 L 24.4 L MCV 81.5 82.4 MCH 27.4 25.9 L MCHC 33.6 31.4 L RDW 16.8 17.0 Plt Count 394 319 MPV 5.3 L 5.5 L Neut % (Auto) 81.2 H Lymph % (Auto) 11.5 [place] % (Auto) 6.7 Eos % (Auto) 0.3 Baso % (Auto) 0.3 Neut # (Auto) 14.3 H Lymph # (Auto) 2.0 [place] # (Auto) 1.2 H Eos # (Auto) 0.0 Baso # (Auto) 0.0 WBC Differential . Differential Comment Auto diff final Sodium 139 Potassium 3.8 D Chloride 101 Carbon Dioxide 30.0 Anion Gap 8 BUN 18 Creatinine 0.76 Estimated GFR 77 L Random Glucose 185 H D Calcium 9.2 D
--- NOTE | 2017-10-13 14:58 | MB ---
cc: Jaylan Burt MD DATE: 10/13/2017 REQUESTING PHYSICIAN: Dr. Gardner. REASON FOR CONSULTATION: Necrotizing fasciitis, status post debridement and grafting. She has been on vancomycin and meropenem at the facility prior to admission, which were continued. Please evaluate and assist with management. HISTORY OF PRESENT ILLNESS: This is a 62-year-old white female who has an extensive history since she was admitted to [place] in 06/2017. She was diagnosed with necrotizing fasciitis, which involved the right-sided abdomen, flank and back. She grew MRSA from wound cultures and she underwent multiple debridements. She was treated with IV antibiotics in the form of daptomycin for MRSA, which was due to continue up until 09/09/2017. The patient eventually went to [facility] from [place]. She was transferred back here to [place] for skin grafting. She just underwent the skin grafting procedure yesterday. She was on vancomycin and meropenem when she arrived here and these antibiotics have been continued. She is in no acute distress and is awake and alert. She has no fever. Her white blood cell count is increased at 17.6 today. On 10/11/2017, the white count was 11.2. Her only complaint is feeling hot. The temperature in the room appears to be high and it is roofer vinyl coating the room. She denies chills. I have reviewed the recent history and labs. PAST MEDICAL AND SURGICAL HISTORY: Gastroesophageal reflux disease, hypothyroidism, depression, anxiety, migraines, bladder incontinence, chronic back pain, thyroid surgery, cholecystectomy, hysterectomy, D and C, colonoscopy. ALLERGIES: NO KNOWN DRUG ALLERGIES. MEDICATIONS: 1. Meropenem. 2. Synthroid. 3. Lasix. 4. Vitamin C. 5. Vancomycin. SOCIAL HISTORY: No tobacco, no alcohol, no illicit drugs. FAMILY HISTORY: Noncontributory. REVIEW OF SYSTEMS: All systems have been reviewed and are negative. PHYSICAL EXAMINATION: GENERAL: She is a pleasant, slender female in no acute distress. She is awake and alert and oriented. VITAL SIGNS: Temperature 98 degrees, blood pressure 104/74, respirations 20, heart rate 99. HEENT: Head is atraumatic. Extraocular movements are grossly intact. Pupils reactive to light. No icterus. Oropharynx: Moist mucosa. No lesions. No thrush. NECK: Supple, no adenopathy. LUNGS: Clear breath sounds. HEART: Regular S1 and S2. No murmurs heard. ABDOMEN: Bowel sounds present, flat, soft, nontender. The patient has a large area, which is covered by skin grafting and there is a sponge device and vacuum attached to the area of the grafting. This extends from the lateral thigh and all the way up to the buttock and lateral thorax and anterior right chest beneath the breasts. SKIN: No diffuse rash. NEUROLOGIC: The patient is alert and oriented. Grossly nonfocal. PSYCHIATRIC: The patient is calm, pleasant and cooperative. LABORATORY DATA: WBC 17.6, platelet count 319, 81% neutrophils, 11% lymphocytes, hemoglobin 7.7. Creatinine 0.76. Estimated GFR 77. Sodium 139. IMPRESSION AND RECOMMENDATIONS: 1. The patient with necrotizing fasciitis. 2. Status post treatment with multiple debridements and antibiotics for methicillin resistant Staphylococcus aureus. 3. Now post skin grafting procedure on 10/12/2017. The patient is clinically stable. I think that the patient should receive the current antibiotics for a limited time now that she is post skin grafting and there are no signs of active infection going on. I would give the vancomycin and meropenem for 72 hours in the post skin graft period and then stop antibiotics. Thank you for this consultation. Please call if further infectious disease input is needed. MD EMMA Wallace/DEZ , 02:17 PM , 02:57 PM
[2017-10-13] MEDS: Calcium/Vitamin D 250/125 MG Tablet PO SCH (18:11)
--- NOTE | 2017-10-13 19:35 | P.PN ---
Subjective Interval history: Patient reports controlled pain. No new complaints Physical Exam Vital signs: Vital Signs 10/12/17 19:49 10/12/17 20:00 10/12/17 21:00 Temperature 98.2 F Pulse Rate 104 H 93 H 93 H Respiratory Rate 22 32 H 17 Blood Pressure 92/50 L 96/54 L Pulse Oximetry 100 100 100 10/12/17 22:00 10/12/17 23:00 10/13/17 00:00 Temperature 98.3 F Pulse Rate 80 86 85 Respiratory Rate 16 18 20 Blood Pressure 135/70 109/58 L 107/58 L Pulse Oximetry 100 99 100 10/13/17 00:21 10/13/17 01:00 10/13/17 02:00 Temperature Pulse Rate 84 97 H 99 H Respiratory Rate 20 19 30 H Blood Pressure 98/53 L Pulse Oximetry 100 97 10/13/17 02:01 10/13/17 03:00 10/13/17 04:00 Temperature Pulse Rate 102 H 80 77 Respiratory Rate 33 H 13 17 Blood Pressure 97/58 L 101/55 L 96/53 L Pulse Oximetry 99 100 100 10/13/17 04:13 10/13/17 05:00 10/13/17 05:06 Temperature Pulse Rate 72 94 H 95 H Respiratory Rate 18 31 H 24 Blood Pressure 105/56 L Pulse Oximetry 100 98 10/13/17 06:00 10/13/17 06:01 10/13/17 07:00 Temperature Pulse Rate 86 85 82 Respiratory Rate 26 H 32 H 14 Blood Pressure 107/66 102/58 L Pulse Oximetry 95 97 98 10/13/17 08:00 10/13/17 08:22 10/13/17 09:00 Temperature 97.2 F L Pulse Rate 78 83 98 H Respiratory Rate 16 18 12 Blood Pressure 123/60 114/57 L Pulse Oximetry 98 98 10/13/17 10:00 10/13/17 11:00 10/13/17 11:42 Temperature Pulse Rate 92 H 96 H 94 H Respiratory Rate 11 L 14 25 H Blood Pressure 108/59 L 137/62 Pulse Oximetry 93 L 95 10/13/17 12:00 10/13/17 13:00 10/13/17 14:00 Temperature 98.0 F Pulse Rate 101 H 99 H 96 H Respiratory Rate 32 H 28 H 15 Blood Pressure 107/53 L 104/74 110/56 L Pulse Oximetry 98 98 96 10/13/17 15:00 10/13/17 16:00 10/13/17 16:59 Temperature 97.7 F Pulse Rate 92 H 89 92 H Respiratory Rate 13 14 22 Blood Pressure 112/57 L 114/55 L Pulse Oximetry 95 98 10/13/17 17:00 10/13/17 18:00 Temperature Pulse Rate 91 H 100 H Respiratory Rate 19 20 Blood Pressure 132/66 115/58 L Pulse Oximetry 99 99 Intake & Output 10/13/17 10/13/17 10/14/17 06:59 18:59 06:59 Intake Total 1840 / 1840 2659 / 2659 Output Total 925 / 925 1225 / 1225 Balance 915 / 915 1434 / 1434 Weight 53.1 kg Intake: IV 1100 / 1100 1700 / 1700 NS Inj 1,000 ML @ 84 mls/hr IV. 1000 / 1000 1000 / 1000 CONT .[id number] JON[facility] Rx#:[id number] Merrem Inj 1,000 MG In NS Inj 100 / 100 200 / 200 100 ML @ 200 mls/hr IV.SIG Q8H JONAS Rx#:[id number] Vancomycin Inj 1,000 MG In NS 500 / 500 Inj 250 ML @ 250 mls/hr IV.SIG Q24H JONAS Rx#:[id number] Oral 360 / 360 Tube Feeding 200 / 200 779 / 779 Water Bolus Amount 180 / 180 180 / 180 Output: Urine Amount (Catheter) 400 / 400 1000 / 1000 Indwelling Urethral Catheter 400 / 400 1000 / 1000 Wound Drainage 400 / 400 100 / 100 RIGHT ABDOMEN 400 / 400 100 / 100 Wound Vac Amount 125 / 125 125 / 125 Right Abdomen 125 / 125 125 / 125 Other: Mode Setting Right Abdomen Continuous Continuous Date of Last Bowel Movement 10/13/17 10/13/17 # Bowel Movements 2 0 Narrative: Right torso wound VAC with excellent suction No surrounding erythema appreciated Appropriately tender - Urinary Catheter Management Indwelling Urethral Catheter Cath placed during this visit: yes Reason for continuing: Acute urinary retention Insertion date: 09/25/17 Results - Labs CBC & Chem 7: 10/13/17 10:45 10/13/17 10:45 Laboratory Results - last 24 hr 10/12/17 10/13/17 10/13/17 06:35 10:45 10:45 WBC 17.6 H RBC 2.97 L Hgb 7.7 L Hct 24.4 L MCV 82.4 MCH 25.9 L MCHC 31.4 L RDW 17.0 Plt Count 319 MPV 5.5 L Neut % (Auto) 81.2 H Lymph % (Auto) 11.5 [place] % (Auto) 6.7 Eos % (Auto) 0.3 Baso % (Auto) 0.3 Neut # (Auto) 14.3 H Lymph # (Auto) 2.0 [place] # (Auto) 1.2 H Eos # (Auto) 0.0 Baso # (Auto) 0.0 WBC Differential . Differential Comment Auto diff final Sodium 139 Potassium 3.8 D Chloride 101 Carbon Dioxide 30.0 Anion Gap 8 BUN 18 Creatinine 0.76 Estimated GFR 77 L Random Glucose 185 H D Calcium 9.2 D MTS Gel Crossmatch See Detail Assessment and Plan - Assessment (1) Open wound of trunk Status: Acute - Plan 62-year-old female status post split-thickness skin graft from right back and right lateral thigh to right torso wound on 10/12/2017 Patient appears comfortable Back holding suction Plan will be for VAC to be discontinued next Monday by MD thompson
[2017-10-13] MEDS: Ascorbic Acid 500 MG Tablet NG/OG SCH (20:30)
[2017-10-14] MEDS: Morphine Inj 4 MG/ML Vial IV.PUSH PRN ×2 (02:12→04:27)
[2017-10-14] MEDS: Chlorhexidine Gluconate 2% 1 Pack (2 Cloths) TOPICAL SCH (04:34)
[2017-10-14 05:13] LABS: Baso % (Auto) 0.2 % (0.0-2.0); Eos % (Auto) 0.2 % (0.0-4.0); Hematocrit 22.7 % (35.0-46.0); Hemoglobin 7.4 gm/dL (11.6-15.3); Lymph # (Auto) 1.5 th/mm3 (1.0-4.8); Lymph % (Auto) 10.2 % (9.0-44.0); Mean Corpuscular HGB Conc 32.5 % (32.0-36.0); Mean Corpuscular Hemoglobin 26.7 pg (27.0-34.0); Mean Corpuscular Volume 82.3 fL (80.0-100.0); Mean Platelet Volume 5.4 fL (7.0-11.0); Mono # (Auto) 0.9 th/mm3 (0.0-0.9); Mono % (Auto) 6.1 % (0.0-8.0); Neut % (Auto) 83.3 % (16.0-70.0); Platelet Count 333 th/mm3 (150-450); Red Blood Count 2.76 mil/mm3 (4.00-5.30); Red Cell Distribution Width 16.5 % (11.6-17.2); White Blood Count 14.4 th/mm3 (4.0-11.0)
[2017-10-14] MEDS: Levothyroxine 125 MCG Tablet PO SCH (05:25)
[2017-10-14 05:37] LABS: Anion Gap 9 meq/L (5-15); Blood Urea Nitrogen 16 mg/dL (7-18); Calcium 8.9 mg/dL (8.5-10.1); Carbon Dioxide 27.9 meq/L (21.0-32.0); Chloride 104 meq/L (98-107); Glomerular Filtration Rate Greater Than 89 mL/min (>89); Glucose,Random 169 mg/dL (74-106); Sodium 141 meq/L (136-145)
[2017-10-14] MEDS: Sod Chloride 0.9% Inj 1,000 ML IV.CONT SCH ×2 (06:32→18:35)
[2017-10-14] MEDS ORDERED: Pharmacy Ordered Lab Info OTHER ONE (07:45)
--- NOTE | 2017-10-14 08:54 | P.PNIM ---
Subjective Interval history: Mrs. Eldridge was afebrile with stable vital signs overnight. Patient reports desire to eat but understands speech therapy recommendations. No shortness of breath, significant pain, or other concerns reported. Patient reports being visited by friend this morning and that she is feeling good. Physical Exam Vital signs: Vital Signs 10/13/17 09:00 10/13/17 10:00 10/13/17 11:00 Temperature Pulse Rate 98 H 92 H 96 H Respiratory Rate 12 11 L 14 Blood Pressure 114/57 L 108/59 L 137/62 Pulse Oximetry 98 100 100 10/13/17 11:42 10/13/17 12:00 10/13/17 12:01 Temperature 98.0 F Pulse Rate 94 H 101 H 106 H Respiratory Rate 25 H 32 H 39 H Blood Pressure 107/53 L 107/53 L Pulse Oximetry 98 97 10/13/17 13:00 10/13/17 14:00 10/13/17 15:00 Temperature Pulse Rate 99 H 96 H 92 H Respiratory Rate 28 H 15 13 Blood Pressure 104/74 110/56 L 112/57 L Pulse Oximetry 98 96 95 10/13/17 16:00 10/13/17 16:59 10/13/17 17:00 Temperature 97.7 F Pulse Rate 89 92 H 91 H Respiratory Rate 14 22 19 Blood Pressure 114/55 L 132/66 Pulse Oximetry 98 99 10/13/17 18:00 10/13/17 19:00 10/13/17 19:51 Temperature Pulse Rate 100 H 103 H 93 H Respiratory Rate 20 18 20 Blood Pressure 115/58 L 132/67 Pulse Oximetry 97 97 96 10/13/17 20:00 10/13/17 21:00 10/13/17 22:00 Temperature 98.8 F Pulse Rate 96 H 98 H 98 H Respiratory Rate 20 15 15 Blood Pressure 127/65 127/66 129/69 Pulse Oximetry 97 96 96 10/13/17 23:00 10/13/17 23:26 10/14/17 00:00 Temperature 97.9 F Pulse Rate 88 84 102 H Respiratory Rate 14 18 17 Blood Pressure 118/64 135/71 Pulse Oximetry 96 98 10/14/17 01:00 10/14/17 02:00 10/14/17 02:01 Temperature Pulse Rate 93 H 102 H 100 H Respiratory Rate 16 33 H 48 H Blood Pressure 121/65 153/116 H Pulse Oximetry 96 99 98 10/14/17 02:17 10/14/17 03:00 10/14/17 03:56 Temperature Pulse Rate 95 H 92 H 95 H Respiratory Rate 40 H 17 20 Blood Pressure 129/70 111/61 Pulse Oximetry 97 95 10/14/17 04:00 10/14/17 05:00 10/14/17 06:00 Temperature Pulse Rate 89 100 H 94 H Respiratory Rate 18 30 H 16 Blood Pressure 116/64 113/63 109/58 L Pulse Oximetry 96 95 95 Intake & Output 10/13/17 10/14/17 10/14/17 18:59 06:59 18:59 Intake Total 2659 / 2659 1963 / 1963 Output Total 1225 / 1225 925 / 925 Balance 1434 / 1434 1038 / 1038 Weight 60.1 kg Intake: IV 1700 / 1700 1100 / 1100 NS Inj 1,000 ML @ 84 mls/hr IV. 1000 / 1000 1000 / 1000 CONT .[id number] JONAS Rx#:[id number] Merrem Inj 1,000 MG In NS Inj 200 / 200 100 / 100 100 ML @ 200 mls/hr IV.SIG Q8H J[facility] Rx#:[id number] Vancomycin Inj 1,000 MG In NS 500 / 500 Inj 250 ML @ 250 mls/hr IV.SIG Q24H [facility] Rx#:[id number] Oral 0 / 0 Tube Feeding 779 / 779 623 / 623 Water Bolus Amount 180 / 180 240 / 240 Output: Urine Amount (Catheter) 1000 / 1000 700 / 700 Indwelling Urethral Catheter 1000 / 1000 700 / 700 Wound Drainage 100 / 100 100 / 100 RIGHT ABDOMEN 100 / 100 100 / 100 Wound Vac Amount 125 / 125 125 / 125 Right Abdomen 125 / 125 125 / 125 Other: Mode Setting Right Abdomen Continuous Continuous Date of Last Bowel Movement 10/13/17 10/14/17 # Bowel Movements 0 3 Narrative: Gen: No acute distress Skin: right back/flank with large area covered w/ vac post-operatively from grafting HEENT: EOM grossly I. Mouth: normal oral mucosa. Neck: No appreciated lymphadenopathy. Tracheostomy in place. capped Chest/pulmonary: CTAB; normal rate. Normal saturations >95% on room air Cardiovascular: Normal rate and rhythm; grossly normal perfusion GI/abdomen: Soft, nontender, bowel sounds present. No pain to palpation Neuro: Patient generally aware of orientation; no focal CN or peripheral defects - Urinary Catheter Management Indwelling Urethral Catheter Cath placed during this visit: yes Reason for continuing: Acute urinary retention Insertion date: 09/25/17 Results - Labs CBC & Chem 7: 10/14/17 04:33 10/14/17 04:33 Laboratory Results - last 24 hr 10/12/17 10/13/17 10/13/17 06:35 10:45 10:45 WBC 17.6 H RBC 2.97 L Hgb 7.7 L Hct 24.4 L MCV 82.4 MCH 25.9 L MCHC 31.4 L RDW 17.0 Plt Count 319 MPV 5.5 L Neut % (Auto) 81.2 H Lymph % (Auto) 11.5 [place] % (Auto) 6.7 Eos % (Auto) 0.3 Baso % (Auto) 0.3 Neut # (Auto) 14.3 H Lymph # (Auto) 2.0 [place] # (Auto) 1.2 H Eos # (Auto) 0.0 Baso # (Auto) 0.0 WBC Differential . Differential Comment Auto diff final Sodium 139 Potassium 3.8 D Chloride 101 Carbon Dioxide 30.0 Anion Gap 8 BUN 18 Creatinine 0.76 Estimated GFR 77 L Random Glucose 185 H D Calcium 9.2 D MTS Gel Crossmatch See Detail 10/14/17 10/14/17 04:33 04:33 WBC 14.4 H RBC 2.76 L Hgb 7.4 L Hct 22.7 L MCV 82.3 MCH 26.7 L MCHC 32.5 RDW 16.5 Plt Count 333 MPV 5.4 L Neut % (Auto) 83.3 H Lymph % (Auto) 10.2 [place] % (Auto) 6.1 Eos % (Auto) 0.2 Baso % (Auto) 0.2 Neut # (Auto) 12.0 H Lymph # (Auto) 1.5 [place] # (Auto) 0.9 Eos # (Auto) 0.0 Baso # (Auto) 0.0 WBC Differential . Differential Comment Auto diff final Sodium 141 Potassium 4.0 Chloride 104 Carbon Dioxide 27.9 Anion Gap 9 BUN 16 Creatinine 0.62 Estimated GFR Greater than 89 Random Glucose 169 H Calcium 8.9 MTS Gel Crossmatch Assessment and Plan - Plan Mrs. Eldridge is a 62 yo F with PMH anxiety/depression, hypothyroidism, developmental delay who is being treated for necrotizing fasciitis: Necrotizing fasciitis Impression: s/p debridement; s/p split thickness skin grafting 10/12 per plastic surgery -Plastic surgery consulted -Plan for VAC to be continued x1 week with removal next Monday by Dr. Ricardo -VAC currently holding suction -Antibiotic therapy -ID consulted for further antibiotic management decisions -Continue vancomycin, meropenem x72 hours post-op then discontinue (will place stop dates for 10/15) -Will consult PT/OT Anemia Impression: Hgb 7.1-> 6.7 on admission-> 1 U pRBC 9.5 10/12. Since 10/12, Hgb has been slowly downtrending; 7.4 10/14 MCV ~80 -Will monitor CBC -Will defer chemical DVT PPX since downtrending -Will initiate PO iron supplementation Respiratory Impression: Tracheostomy in place for prior prison ventilation. breathing well today -Continue O2 supplementation as needed, tracheostomy management -Conitnue PRN nebulizers Hypothyroidism -Continue home Levothyroxine GI Impression: PEG in place. Speech therapy consulted; patient cannot tolerate oral feeds without aspiration risk -Will continue tube feeds GI PPX -Will continue prior Pantoprazole DVT PPX -SCD's ->24 hrs post-op but will defer chemical PPX due to downtrending Hgb and recent need for transfusion Code Status: Full code Discharge Planning: Will transfer to floor today Will be monitored until next Monday when VAC will be assessed by plastic surgery
[2017-10-14] MEDS: Vancomycin Inj 1,000 MG in Sodium Chlor 0.9% Inj 250 ML IV.SIG SCH (12:03)
[2017-10-14] MEDS: Furosemide 20 MG Tablet PO SCH (12:05)
[2017-10-14] MEDS: Senna/Docusate Sodium 8.6/50 MG Tablet PO SCH ×2 (12:05→20:55)
[2017-10-14] MEDS: Heparin Central Flush 100 UNIT/ML 5 ML Vial IV.FLUSH SCH (12:06)
[2017-10-14] MEDS: predniSONE 10 MG Tablet PO SCH ×2 (12:06→20:55)
[2017-10-14] MEDS: Calcium/Vitamin D 250/125 MG Tablet PO SCH (17:43)
[2017-10-14] MEDS: Ascorbic Acid 500 MG Tablet NG/OG SCH (20:55)
[2017-10-15] MEDS: Chlorhexidine Gluconate 2% 1 Pack (2 Cloths) TOPICAL SCH (04:00)
[2017-10-15] MEDS: Sod Chloride 0.9% Inj 1,000 ML IV.CONT SCH ×3 (04:40→17:56)
[2017-10-15] MEDS: Levothyroxine 125 MCG Tablet PO SCH (06:00)
[2017-10-15] MEDS: Heparin Central Flush 100 UNIT/ML 5 ML Vial IV.FLUSH SCH (08:13)
[2017-10-15] MEDS: predniSONE 10 MG Tablet PO SCH ×2 (08:14→20:32)
[2017-10-15] MEDS: Furosemide 20 MG Tablet PO SCH (08:14)
[2017-10-15] MEDS: Senna/Docusate Sodium 8.6/50 MG Tablet PO SCH ×3 (08:14→20:32)
[2017-10-15] MEDS: Vancomycin Inj 1,000 MG in Sodium Chlor 0.9% Inj 250 ML IV.SIG SCH (08:14)
--- NOTE | 2017-10-15 09:53 | P.PNIM ---
Subjective Interval history: in no acute distress. pain is controlled. no fever. Physical Exam Vital signs: Vital Signs 10/14/17 10:00 10/14/17 11:00 10/14/17 12:00 Temperature Pulse Rate 101 H 97 H 98 H Respiratory Rate 16 17 17 Blood Pressure 121/62 127/64 134/65 Pulse Oximetry 97 97 96 10/14/17 13:15 10/14/17 16:00 10/14/17 19:45 Temperature 98 F 98.3 F Pulse Rate 92 H 95 H 94 H Respiratory Rate 20 20 16 Blood Pressure 118/74 121/67 Pulse Oximetry 96 96 96 10/14/17 20:00 10/15/17 00:00 10/15/17 04:00 Temperature 98.7 F 98.4 F 98.6 F Pulse Rate 90 85 87 Respiratory Rate 22 14 18 Blood Pressure 114/62 120/67 120/63 Pulse Oximetry 96 96 97 10/15/17 04:54 10/15/17 08:00 10/15/17 08:34 Temperature 97.9 F Pulse Rate 88 93 H 85 Respiratory Rate 16 18 19 Blood Pressure 118/68 Pulse Oximetry 97 97 Intake & Output 10/14/17 10/15/17 10/15/17 18:59 06:59 18:59 Intake Total 1730 / 1730 2200 / 2200 1000 / 1000 Output Total 1400 / 1400 900 / 900 Balance 330 / 330 1300 / 1300 1000 / 1000 Weight 60.8 kg Intake: IV 1250 / 1250 1000 / 1000 1000 / 1000 NS Inj 1,000 ML @ 84 mls/hr IV. 1000 / 1000 900 / 900 1000 / 1000 CONT .[id number] [facility] Rx#:[id number] Merrem Inj 1,000 MG In NS Inj 100 / 100 100 ML @ 200 mls/hr IV.SIG Q8H [facility] Rx#:[id number] Vancomycin Inj 1,000 MG In NS 250 / 250 Inj 250 ML @ 250 mls/hr IV.SIG Q24H [facility] Rx#:[id number] Oral 480 / 480 Tube Feeding 840 / 840 Water Bolus Amount 360 / 360 Output: Urine 1400 / 1400 Urine Amount (Catheter) 900 / 900 Indwelling Urethral Catheter 900 / 900 Other: Mode Setting Right Abdomen Continuous Continuous Date of Last Bowel Movement 10/14/17 10/15/17 # Bowel Movements 2 - Constitutional no acute distress - Routine Respiratory Exam Present: CTA bilaterally - Routine Cardiovascular Exam Present: RRR - Routine Abdominal Exam Present: soft - Routine Extremities Exam Comments: wound vac in place- right hip. - Routine Neurological Exam Present: alert - Urinary Catheter Management Indwelling Urethral Catheter Cath placed during this visit: yes Reason for continuing: Acute urinary retention Insertion date: 09/25/17 Results - Labs CBC & Chem 7: 10/14/17 04:33 10/14/17 04:33 Laboratory Results - last 24 hr 10/14/17 09:50 Vancomycin Trough 15.1 H Assessment and Plan - Plan Necrotizing fasciitis s/p debridement; s/p split thickness skin grafting 10/12 per plastic surgery Plan for VAC to be removal next Monday by Dr. Ricardo Antibiotic therapy -ID consulted for further antibiotic management decisions -Continue vancomycin, meropenem x72 hours post-op then discontinue ; will dc today. -continue PT/OT Anemia Hgb 7.1-> 6.7 on admission-> 1 U pRBC 9.5 10/12. 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 breathing well today -Continue O2 supplementation as needed, tracheostomy management -Continue PRN nebulizers Hypothyroidism -Continue home Levothyroxine GI PEG in place. Speech therapy consulted; patient cannot tolerate oral feeds without aspiration risk -Will continue tube feeds GI PPX -Will continue prior Pantoprazole DVT PPX -SCD's - will defer chemical PPX due to downtrending Hgb and recent need for transfusion Discharge Planning: when cleared by plastic surgery; wound vac to be removed next Monday.
[2017-10-15 13:34] LABS: Baso % (Auto) 0.3 % (0.0-2.0); Eos % (Auto) 0.1 % (0.0-4.0); Hematocrit 22.5 % (35.0-46.0); Hemoglobin 7.3 gm/dL (11.6-15.3); Lymph # (Auto) 0.7 th/mm3 (1.0-4.8); Mean Corpuscular HGB Conc 32.4 % (32.0-36.0); Mean Corpuscular Hemoglobin 26.8 pg (27.0-34.0); Mean Platelet Volume 5.6 fL (7.0-11.0); Mono # (Auto) 0.6 th/mm3 (0.0-0.9); Mono % (Auto) 4.1 % (0.0-8.0); Neut # (Auto) 13.3 th/mm3 (1.8-7.7); Neut % (Auto) 90.5 % (16.0-70.0); Platelet Count 338 th/mm3 (150-450); Red Blood Count 2.71 mil/mm3 (4.00-5.30); Red Cell Distribution Width 17.5 % (11.6-17.2); White Blood Count 14.7 th/mm3 (4.0-11.0)
[2017-10-15 14:10] LABS: Anion Gap 5 meq/L (5-15); Blood Urea Nitrogen 15 mg/dL (7-18); Calcium 7.8 mg/dL (8.5-10.1); Carbon Dioxide 28.2 meq/L (21.0-32.0); Chloride 107 meq/L (98-107); Glomerular Filtration Rate Greater Than 89 mL/min (>89); Glucose,Random 162 mg/dL (74-106); Sodium 140 meq/L (136-145)
[2017-10-15 14:15] LABS: Potassium 4.2 meq/L (3.5-5.1)
[2017-10-15] MEDS: Calcium/Vitamin D 250/125 MG Tablet PO SCH (17:42)
[2017-10-15] MEDS: Ascorbic Acid 500 MG Tablet NG/OG SCH (20:32)
[2017-10-16] MEDS: Chlorhexidine Gluconate 2% 1 Pack (2 Cloths) TOPICAL SCH (05:30)
[2017-10-16] MEDS: Levothyroxine 125 MCG Tablet PO SCH (05:30)
[2017-10-16] MEDS: Sod Chloride 0.9% Inj 1,000 ML IV.CONT SCH ×2 (05:30→18:09)
[2017-10-16 05:59] LABS: Baso % (Auto) 0.3 % (0.0-2.0); Eos # (Auto) 0.1 th/mm3 (0.0-0.4); Eos % (Auto) 0.6 % (0.0-4.0); Hematocrit 21.7 % (35.0-46.0); Lymph # (Auto) 1.5 th/mm3 (1.0-4.8); Mean Corpuscular HGB Conc 32.3 % (32.0-36.0); Mean Corpuscular Hemoglobin 26.7 pg (27.0-34.0); Mean Corpuscular Volume 82.7 fL (80.0-100.0); Mean Platelet Volume 5.4 fL (7.0-11.0); Mono # (Auto) 0.8 th/mm3 (0.0-0.9); Mono % (Auto) 4.7 % (0.0-8.0); Neut # (Auto) 13.8 th/mm3 (1.8-7.7); Neut % (Auto) 85.4 % (16.0-70.0); Platelet Count 315 th/mm3 (150-450); Red Blood Count 2.62 mil/mm3 (4.00-5.30); Red Cell Distribution Width 17.2 % (11.6-17.2); White Blood Count 16.2 th/mm3 (4.0-11.0)
[2017-10-16] MEDS ORDERED: Pharmacy Ordered Lab Info OTHER ONE (07:45)
[2017-10-16] MEDS: predniSONE 10 MG Tablet PO SCH ×2 (09:07→20:31)
[2017-10-16] MEDS: Senna/Docusate Sodium 8.6/50 MG Tablet PO SCH ×2 (09:07→20:31)
[2017-10-16] MEDS: Furosemide 20 MG Tablet PO SCH (09:07)
[2017-10-16] MEDS: Heparin Central Flush 100 UNIT/ML 5 ML Vial IV.FLUSH SCH (09:08)
[2017-10-16] MEDS: Ondansetron Liq 4 MG/5 ML UDC PO PRN (09:59)
--- NOTE | 2017-10-16 11:35 | P.PNIM ---
Subjective Interval history: in no acute distress. had an episode of emesis earlier today. she says that now she's feeling better with minimal abdominal pain. Physical Exam Vital signs: Vital Signs 10/15/17 11:43 10/15/17 12:00 10/15/17 16:00 Temperature 97.5 F L 97.5 F L Pulse Rate 93 H 98 H 91 H Respiratory Rate 18 18 18 Blood Pressure 109/61 120/60 Pulse Oximetry 97 97 10/15/17 20:00 10/16/17 00:00 10/16/17 00:48 Temperature 98.2 F 98 F Pulse Rate 88 96 H 84 Respiratory Rate 17 16 Blood Pressure 122/64 159/69 H Pulse Oximetry 98 97 10/16/17 04:00 10/16/17 08:00 Temperature 98 F 97.4 F L Pulse Rate 81 83 Respiratory Rate 19 17 Blood Pressure 124/64 122/64 Pulse Oximetry 97 96 Intake & Output 10/15/17 10/16/17 10/16/17 18:59 06:59 18:59 Intake Total 1999 / 1999 2200 / 2200 Output Total 800 / 800 1100 / 1100 Balance 1200 / 1200 1100 / 1100 Intake: IV 1999 / 1999 1000 / 1000 NS Inj 1,000 ML @ 84 mls/hr IV. 1999 / 1999 1000 / 1000 CONT .[id number] [facility] Rx#:[id number] Tube Feeding 840 / 840 Water Bolus Amount 360 / 360 Output: Urine Amount (Catheter) 800 / 800 1100 / 1100 Indwelling Urethral Catheter 800 / 800 1100 / 1100 Other: Mode Setting Right Abdomen Continuous Continuous Continuous # Bowel Movements 2 # Incontinent Bowel Movements 2 - Routine Respiratory Exam Present: CTA bilaterally - Routine Cardiovascular Exam Present: RRR - Routine Abdominal Exam Present: soft - Routine Extremities Exam Comments: no pedal edema. - Routine Skin Exam Comments: wound vac noted on the right hip. - Routine Neurological Exam Present: alert - Urinary Catheter Management Indwelling Urethral Catheter Cath placed during this visit: yes Reason for continuing: Acute urinary retention Insertion date: 10/11/17 Results - Labs CBC & Chem 7: 10/16/17 05:45 10/15/17 13:15 Laboratory Results - last 24 hr 10/15/17 10/15/17 10/16/17 13:15 13:15 05:45 WBC 14.7 H 16.2 H RBC 2.71 L 2.62 L Hgb 7.3 L 7.0 L Hct 22.5 L 21.7 L MCV 83.0 82.7 MCH 26.8 L 26.7 L MCHC 32.4 32.3 RDW 17.5 H 17.2 Plt Count 338 315 MPV 5.6 L 5.4 L Prelim Diff (Auto) Slide review pending Neut % (Auto) 90.5 H 85.4 H Lymph % (Auto) 5.0 L 9.0 [place] % (Auto) 4.1 4.7 Eos % (Auto) 0.1 0.6 Baso % (Auto) 0.3 0.3 Neut # (Auto) 13.3 H 13.8 H Lymph # (Auto) 0.7 L 1.5 [place] # (Auto) 0.6 0.8 Eos # (Auto) 0.0 0.1 Baso # (Auto) 0.0 0.0 WBC Differential . . Diff Scan Auto diff confirmed Differential Comment . Auto diff final Sodium 140 Potassium 4.2 Chloride 107 Carbon Dioxide 28.2 Anion Gap 5 BUN 15 Creatinine 0.53 Estimated GFR Greater than 89 Random Glucose 162 H Calcium 7.8 L D Assessment and Plan - Plan Necrotizing fasciitis s/p debridement; s/p split thickness skin grafting 10/12 per plastic surgery Plan for VAC to be removal on Monday by Dr. Ricardo Antibiotic therapy -ID consulted for further antibiotic management decisions -finished the course of antibiotics- per ID. -continue PT/OT Anemia will repeat H/H this afternoon and will transfuse with PRBC if Hb< 7. 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 breathing well today -Continue O2 supplementation as needed, tracheostomy management -Continue PRN nebulizers Hypothyroidism -Continue home Levothyroxine GI PEG in place. Speech therapy consulted; patient cannot tolerate oral feeds without aspiration risk -Will continue tube feeds GI PPX -Will continue prior Pantoprazole DVT PPX -SCD's - will defer chemical PPX due to downtrending Hgb and recent need for transfusion Discharge Planning: when cleared by plastic surgery; wound vac to be removed next Monday.
[2017-10-16 16:55] LABS: Hematocrit 22.3 % (35.0-46.0)
[2017-10-16 17:20] LABS: Hemoglobin 6.9 gm/dL (11.6-15.3)
[2017-10-16] MEDS: Calcium/Vitamin D 250/125 MG Tablet PO SCH (18:09)
[2017-10-16] MEDS: Ascorbic Acid 500 MG Tablet NG/OG SCH (20:31)
[2017-10-16] MEDS ORDERED: Sodium Chlor 0.9% Inj 250 ML IV.SIG SCH (23:45)
[2017-10-17] MEDS: Levothyroxine 125 MCG Tablet PO SCH (05:48)
[2017-10-17] MEDS: Senna/Docusate Sodium 8.6/50 MG Tablet PO SCH ×2 (08:50→20:14)
[2017-10-17] MEDS: Furosemide 20 MG Tablet PO SCH (09:19)
[2017-10-17] MEDS: Sod Chloride 0.9% Inj 1,000 ML IV.CONT SCH ×2 (09:19→20:14)
[2017-10-17] MEDS: predniSONE 10 MG Tablet PO SCH ×2 (09:19→20:13)
[2017-10-17] MEDS: Heparin Central Flush 100 UNIT/ML 5 ML Vial IV.FLUSH SCH (09:20)
--- NOTE | 2017-10-17 10:27 | P.PNIM ---
Subjective Interval history: in no acute distress. no new complaints. afebrile. d/w ST. Physical Exam Vital signs: Vital Signs 10/16/17 12:00 10/16/17 15:47 10/16/17 16:00 Temperature 98.9 F Pulse Rate 84 87 89 Respiratory Rate 18 14 Blood Pressure 114/58 L Pulse Oximetry 97 98 10/16/17 16:22 10/16/17 20:00 10/16/17 23:52 Temperature 98.7 F 98.3 F Pulse Rate 81 85 85 Respiratory Rate 18 18 Blood Pressure 123/82 121/79 Pulse Oximetry 97 98 10/17/17 00:00 10/17/17 00:10 10/17/17 01:13 Temperature 98.5 F 98.3 F Pulse Rate 84 70 94 H Respiratory Rate 18 16 20 Blood Pressure 107/69 117/58 L Pulse Oximetry 95 95 10/17/17 01:26 10/17/17 03:52 10/17/17 04:00 Temperature 98.2 F 98.2 F Pulse Rate 94 H 97 H 88 Respiratory Rate 16 18 Blood Pressure 117/57 L 121/64 Pulse Oximetry 94 L 96 10/17/17 04:08 10/17/17 06:10 Temperature 98.2 F 97.8 F Pulse Rate 88 84 Respiratory Rate 18 18 Blood Pressure 121/64 124/60 Pulse Oximetry 96 Intake & Output 10/16/17 10/17/17 10/17/17 18:59 06:59 18:59 Intake Total 2400 / 2400 2690 / 2690 100 / 100 Balance 2400 / 2400 2690 / 2690 100 / 100 Weight 60.3 kg Intake: IV 1000 / 1000 1000 / 1000 100 / 100 NS Inj 1,000 ML @ 84 mls/hr IV. 1000 / 1000 1000 / 1000 CONT .[id number] [facility] Rx#:[id number] Oral 1400 / 1400 Tube Feeding 840 / 840 Water Bolus Amount 360 / 360 Other 90 / 90 Rbc As-3 Leukoreduced Unit 30 / 30 [id number] Rbc As-3 Leukoreduced Unit 60 / 60 [id number] Intake (Blood Product) Amt 400 / 400 Rbc As-3 Leukoreduced Unit 400 / 400 [id number] Rbc As-3 Leukoreduced Unit 0 / 0 [id number] Other: Mode Setting Right Abdomen Continuous Continuous Other Intake Source Rbc As-3 Leukoreduced Unit Saline Solution [id number] # Bowel Movements 1 - Routine Respiratory Exam Present: CTA bilaterally - Routine Cardiovascular Exam Present: RRR - Routine Abdominal Exam Present: soft - Routine Extremities Exam Comments: black discoloration of the right 2nd to 5th toes. - Routine Neurological Exam Present: alert - Urinary Catheter Management Indwelling Urethral Catheter Cath placed during this visit: yes Reason for continuing: Severe pressure ulcer/wound Insertion date: 10/11/17 Results - Labs CBC & Chem 7: 10/16/17 16:06 10/15/17 13:15 Laboratory Results - last 24 hr 10/16/17 10/16/17 16:06 23:30 Hgb 6.9 L* Hct 22.3 L Blood Type A Positive Blood Type Recheck Not needed Antibody Screen Negative MTS Gel Crossmatch See Detail Assessment and Plan - Plan Necrotizing fasciitis s/p debridement; s/p split thickness skin grafting 10/12 per plastic surgery Plan for VAC to be removal on Monday by Dr. Ricardo Antibiotic therapy -ID consulted for further antibiotic management decisions -finished the course of antibiotics- per ID. -continue PT/OT Anemia - s/p PRBC transfusion -Will monitor CBC -Will defer chemical DVT PPX since downtrending -on PO iron supplementation gangrene of the right foot- will consult podiatry. 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 breathing well today -Continue O2 supplementation as needed, tracheostomy management -Continue PRN nebulizers Hypothyroidism -Continue home Levothyroxine moderate malnutrition PEG in place. Speech therapy consulted;modified barium swallow today. -Will continue tube feeds GI PPX -Will continue with pepcid. DVT PPX -SCD's - will defer chemical PPX due to downtrending Hgb and recent need for transfusion Discharge Planning: when cleared by plastic surgery; wound vac to be removed next Monday.
--- NOTE | 2017-10-17 11:38 | FL ---
EXAM DATE: 10/17/2017 11:11 AM EDT AGE/SEX: 62 years / Female INDICATIONS: Dysphagia. CLINICAL DATA: This is the patient's initial encounter. Patient reports that signs and symptoms have been present for 3 months and indicates a pain score of 0/10. MEDICAL/SURGICAL HISTORY: Hypothyroidism. Sepsis with necrotizing fasciitis right hip/leg with wound vac. . Tracheostomy placed.PEG tube September 2017 COMPAR[place] [facility] [place] [facility] 01/17/2017. . FLUORO TIME: 1.0 IMAGE COUNT: 0 FINDINGS: A modified barium swallow was performed with speech pathology. Patient was given a variety of liquids to swallow. For a full detailed report, see report by the speech pathologist. CONCLUSION: Modified barium swallow. Electronically signed by: Kvng Nuñez MD 10/17/2017 11:37 AM EDT
[2017-10-17 14:12] LABS: Hematocrit 33.3 % (35.0-46.0); Hemoglobin 11.1 gm/dL (11.6-15.3)
--- NOTE | 2017-10-17 16:59 | MB ---
cc: Lili Shafer DATE: 10/17/2017 CHIEF COMPLAINT: Right foot digital gangrene. HISTORY OF PRESENT ILLNESS: Mrs. Eldridge is a 62-year-old female patient has suffered from severe necrotizing fasciitis and septic shock several months ago. She has had multiple surgeries to the fasciitis site since then. She was admitted for skin grafting and a wound VAC implantation; however, some time along the course, it was noticed that she had necrotic lesser digits of the right foot. The patient is unsure of how long it has been like that and I cannot find any documentation of them until today. She denies any pain, but states that there is tingling and burning in the foot. PAST MEDICAL HISTORY: Includes GERD, hypothyroidism, depression, anxiety, migraines, bladder incontinence, chronic back pain, history of necrotizing fasciitis. PAST SURGICAL HISTORY: Includes thyroid surgery, cholecystectomy, hysterectomy, D and C, multiple I and D's of the right lower extremity and abdomen as well as skin grafting. ALLERGIES: NO KNOWN DRUG ALLERGIES. MEDICATIONS: Please see list. SOCIAL HISTORY: The patient denies any alcohol or illicit drug abuse. She is currently at [facility] rehabilitation. FAMILY HISTORY: Noncontributory. VITAL SIGNS: Temperature 97.8, pulse 84, respiratory rate 17, blood pressure is 125/72, pulse oximetry 96% O2 on room air. LABORATORY DATA: Last white count was on 10/16/2017; it was 16.2, hemoglobin 7.0, hematocrit 21.7. Most recent hemoglobin was on the 24th and was 11.4 with hematocrit of 33.3, platelets 315. INR 1.1. Sodium 140, potassium 4.2, chloride 107, carbon dioxide 28.2, BUN 15, creatinine 0.53. PHYSICAL EXAMINATION: On physical exam, the patient has palpable DP and PT pulses slightly diminished, but easily palpable. Capillary refill time is less than 3 seconds on the left. On the right in digits in 2, 3, 4, and 5, are delayed. No open wounds. Left foot is unremarkable. Right foot has circumferential full-thickness dry gangrene of the distal 75% of digits 2, 3 and 4 and the distal tip of the fifth digit. ASSESSMENT: Dry gangrene, right foot, digits 2, 3, 4, and 5. I spoke to the patient regarding the diagnosis and advised her that surgery is the best option as leaving the digits intact increases the risk of infection and she is already high risk for re-infection given the serious nature of her previous admission. The patient and her significant other are both agreeable to proceeding with surgery. PLAN: N.p.o. after midnight. Consent signed. Procedure explained. No guarantees given. Thank you for this consultation. VERÓNICA Pierce/DUANE , 04:40 PM , 04:58 PM
[2017-10-17] MEDS: Calcium/Vitamin D 250/125 MG Tablet PO SCH (17:06)
[2017-10-17] MEDS: Ascorbic Acid 500 MG Tablet NG/OG SCH (20:13)
[2017-10-17] MEDS: Famotidine 20 MG Tablet G-TUBE SCH (20:13)
[2017-10-18] MEDS: Levothyroxine 125 MCG Tablet PO SCH (05:10)
[2017-10-18 06:30] LABS: Hematocrit 32.3 % (35.0-46.0); Hemoglobin 10.9 gm/dL (11.6-15.3); Mean Corpuscular HGB Conc 33.8 % (32.0-36.0); Mean Corpuscular Hemoglobin 27.9 pg (27.0-34.0); Mean Corpuscular Volume 82.7 fL (80.0-100.0); Mean Platelet Volume 5.4 fL (7.0-11.0); Platelet Count 346 th/mm3 (150-450); Red Cell Distribution Width 16.5 % (11.6-17.2); White Blood Count 14.2 th/mm3 (4.0-11.0)
[2017-10-18] MEDS: Sod Chloride 0.9% Inj 1,000 ML IV.CONT SCH ×2 (09:19→23:45)
[2017-10-18] MEDS: Heparin Central Flush 100 UNIT/ML 5 ML Vial IV.FLUSH SCH (09:20)
[2017-10-18] MEDS: Furosemide 20 MG Tablet PO SCH (09:21)
[2017-10-18] MEDS: predniSONE 10 MG Tablet PO SCH (09:21)
[2017-10-18] MEDS: Senna/Docusate Sodium 8.6/50 MG Tablet PO SCH ×2 (09:22→20:51)
[2017-10-18] MEDS: Famotidine 20 MG Tablet G-TUBE SCH ×2 (09:22→20:51)
--- NOTE | 2017-10-18 09:51 | P.PN ---
Subjective Interval history: Patient reports mild pain of the donor and recipient sites, which is improving from surgery. Physical Exam Vital signs: Vital Signs 10/17/17 12:00 10/17/17 16:00 10/17/17 18:21 Temperature 97.7 F 97.7 F Pulse Rate 79 89 88 Respiratory Rate 18 18 16 Blood Pressure 151/88 H 131/74 Pulse Oximetry 95 97 10/17/17 20:00 10/18/17 00:00 10/18/17 06:00 Temperature 97.9 F 98 F 97.7 F Pulse Rate 86 84 75 Respiratory Rate 16 16 16 Blood Pressure 135/68 145/74 H 153/81 H Pulse Oximetry 98 98 97 10/18/17 08:00 Temperature 97.8 F Pulse Rate 79 Respiratory Rate 18 Blood Pressure 151/82 H Pulse Oximetry 95 Intake & Output 10/17/17 10/18/17 10/18/17 18:59 06:59 18:59 Intake Total 200 / 200 1000 / 1000 1000 / 1000 Output Total 2150 / 2150 Balance 200 / 200 -1150 / -1150 1000 / 1000 Weight 63.2 kg Intake: IV 200 / 200 1000 / 1000 1000 / 1000 NS Inj 1,000 ML @ 84 mls/hr IV. 1000 / 1000 1000 / 1000 CONT .[id number] [facility] Rx#:[id number] NS Inj 250 ML @ 15 mls/hr IV. 100 / 100 SIG ONCE [facility] Rx#:[id number] Oral 0 / 0 Output: Urine 2150 / 2150 Other: Mode Setting Right Abdomen Continuous Right Toe - 5th Digit Continuous Date of Last Bowel Movement 10/17/17 10/18/17 # Bowel Movements 1 Narrative: Wound VAC holding excellent suction VAC with serosanguineous output No erythema around the VAC sponge Appropriately tender - Urinary Catheter Management Indwelling Urethral Catheter Cath placed during this visit: yes Reason for continuing: Acute urinary retention Insertion date: 10/11/17 Results - Labs CBC & Chem 7: 10/18/17 06:20 10/15/17 13:15 Laboratory Results - last 24 hr 10/17/17 10/18/17 14:00 06:20 WBC 14.2 H RBC 3.90 L Hgb 11.1 L D 10.9 L Hct 33.3 L 32.3 L MCV 82.7 MCH 27.9 MCHC 33.8 RDW 16.5 Plt Count 346 MPV 5.4 L - Imaging Impressions Videofluoroscopic Swallow 10/17/17 00:00 CONCLUSION: Modified barium swallow. Assessment and Plan - Assessment (1) Open wound of trunk Status: Acute - Plan 62-year-old female status post split-thickness skin graft from right back and right lateral thigh to right torso wound on 10/12/2017 Patient appears comfortable VAC holding suction Plan will be for VAC to be discontinued this Monday by Plastic Surgery only Patient with leukocytosis since the day of surgery Unclear if leukocytosis was present before surgery Given appearance of wound and absence of erythema around the wound, do not feel the right torso recipient and donor sites are the source Patient to undergo digital amputation by podiatry for gangrene
--- NOTE | 2017-10-18 10:49 | P.PNIM ---
Subjective Interval history: in no acute distress. pain seems to be fairly controlled. no fever. Physical Exam Vital signs: Vital Signs 10/17/17 12:00 10/17/17 16:00 10/17/17 18:21 Temperature 97.7 F 97.7 F Pulse Rate 79 89 88 Respiratory Rate 18 18 16 Blood Pressure 151/88 H 131/74 Pulse Oximetry 95 97 10/17/17 20:00 10/18/17 00:00 10/18/17 06:00 Temperature 97.9 F 98 F 97.7 F Pulse Rate 86 84 75 Respiratory Rate 16 16 16 Blood Pressure 135/68 145/74 H 153/81 H Pulse Oximetry 98 98 97 10/18/17 08:00 Temperature 97.8 F Pulse Rate 79 Respiratory Rate 18 Blood Pressure 151/82 H Pulse Oximetry 95 Intake & Output 10/17/17 10/18/17 10/18/17 18:59 06:59 18:59 Intake Total 200 / 200 1000 / 1000 1000 / 1000 Output Total 2150 / 2150 Balance 200 / 200 -1150 / -1150 1000 / 1000 Weight 63.2 kg Intake: IV 200 / 200 1000 / 1000 1000 / 1000 NS Inj 1,000 ML @ 84 mls/hr IV. 1000 / 1000 1000 / 1000 CONT .[id number] [facility] Rx#:[id number] NS Inj 250 ML @ 15 mls/hr IV. 100 / 100 SIG ONCE [facility] Rx#:[id number] Oral 0 / 0 Output: Urine 2150 / 2150 Other: Mode Setting Right Abdomen Continuous Right Toe - 5th Digit Continuous Date of Last Bowel Movement 10/17/17 10/18/17 # Bowel Movements 1 - Routine Respiratory Exam Present: CTA bilaterally - Routine Cardiovascular Exam Present: RRR - Routine Abdominal Exam Present: soft - Routine Extremities Exam Comments: no pedal edema- gangrene of the right 2nd/3rd/4th/5th toes. - Urinary Catheter Management Indwelling Urethral Catheter Cath placed during this visit: yes Reason for continuing: Acute urinary retention Insertion date: 10/11/17 Results - Labs CBC & Chem 7: 10/18/17 06:20 10/15/17 13:15 Laboratory Results - last 24 hr 10/17/17 10/18/17 14:00 06:20 WBC 14.2 H RBC 3.90 L Hgb 11.1 L D 10.9 L Hct 33.3 L 32.3 L MCV 82.7 MCH 27.9 MCHC 33.8 RDW 16.5 Plt Count 346 MPV 5.4 L - Imaging Impressions Videofluoroscopic Swallow 10/17/17 00:00 CONCLUSION: Modified barium swallow. Assessment and Plan - Plan Necrotizing fasciitis s/p debridement; s/p split thickness skin grafting 10/12 per plastic surgery Plan for VAC to be removal on Monday by Dr. Ricardo Antibiotic therapy -ID consulted for further antibiotic management decisions -finished the course of antibiotics- per ID. -continue PT/OT Anemia - s/p PRBC transfusion; now with improved H/H. -Will monitor CBC -Will defer chemical DVT PPX since downtrending -on PO iron supplementation leukocytosis- likely due to steroid- no fever- will monitor for now. gangrene of the right foot- podiatry consult appreciated and plan for amputation. 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 breathing well today -Continue O2 supplementation as needed, tracheostomy management -Continue PRN nebulizers -taper down prednisone. Hypothyroidism -Continue home Levothyroxine moderate malnutrition PEG in place. Speech therapy consulted;modified barium swallow today. -Will continue tube feeds GI PPX -Will continue with pepcid. DVT PPX -SCD's - will defer chemical PPX due to downtrending Hgb and recent need for transfusion Discharge Planning: when cleared by plastic surgery; wound vac to be removed next Monday. for amputation/ right foot- per podiatry.
[2017-10-18] MEDS ORDERED: Lidocaine PF 1% Inj 5 ML Syringe INFILTRATN ONE (10:54)
[2017-10-18] MEDS: Sodium Chlor 0.9% Inj 250 ML ONE ×2 (16:18→18:30)
[2017-10-18] MEDS ORDERED: *morphine SULFATE 10 MG/ML PERIprocedure ONLY ONE (16:54)
[2017-10-18] MEDS ORDERED: fentaNYL Citrate Inj 100 MCG/2 ML Ampul ONE (17:03)
--- NOTE | 2017-10-18 17:30 | XR ---
EXAM DATE: 10/18/2017 5:27 PM EDT AGE/SEX: 62 years / Female INDICATIONS: Post op right 2nd-5th digit amputation CLINICAL DATA: This is the patient's initial encounter. Patient reports that signs and symptoms have been present for 1 day and indicates a pain score of Nonresponsive. MEDICAL/SURGICAL HISTORY: None. None. [place] [facility] [id number] 07/11/[place]. . FINDINGS: There is osteotomy of the phalanges of the second through fifth toes as well as a healed fracture of the shaft of the fifth metatarsal. There is no bony destruction or periosteal reaction to suggest ost eomyelitis. Gas is present at the soft tissues at the head of the second metatarsal. CONCLUSION: Postsurgical changes as above. Electronically signed by: Jose Vaughan MD 10/18/2017 5:29 PM EDT
[2017-10-18] MEDS: Calcium/Vitamin D 250/125 MG Tablet PO SCH (18:27)
[2017-10-18] MEDS: Ascorbic Acid 500 MG Tablet NG/OG SCH (20:51)
--- NOTE | 2017-10-18 23:12 | MP ---
cc: Lili Shafer [facility] DATE OF OPERATION: 10/18/2017 SURGEON: Lili Shafer MD SALES DEPARTMENT SUPERVISOR: Staff provided payroll human resources assistant. PREOPERATIVE DIAGNOSIS: Dry gangrene, right foot, digits 2, 3, 4 and 5. POSTOPERATIVE DIAGNOSES: Dry gangrene, right foot, digits 2, 3, 4 and 5. PROCEDURE PERFORMED: Right foot digital amputation of 2, 3, 4, and 5. PATHOLOGY SENT: Right foot digits 2, 3, 4 and 5. ESTIMATED BLOOD LOSS: 10 mL. INJECTABLES: None. MATERIALS USED: 3-0 Prolene. COMPLICATIONS: None. INDICATIONS: Ms. Eldridge is a female patient who has recently suffered from a severe infection, necrotizing fasciitis, and had multiple surgeries to the right lower extremity. At some unknown point, the digits became hypoxic and eventually moved onto a dry gangrene. I spoke to the patient about all care options, and patient and her significant other did agree on the amputation of the lesser digits. The consent was signed. The procedure was explained. No guarantees were given. PROCEDURE: Under mild sedation, the patient was brought into the operating room, and placed on the operating table in supine position. An ankle tourniquet was applied to the right ankle. The foot was scrubbed, prepped and draped in the usual aseptic manner. Attention was directed to the right foot, where a curvilinear incision was created on the distal lateral aspect of the foot, encompassing the metatarsophalangeal joints of 2 through 5, and a similar incision was created on the plantar aspect, creating a fishmouth incision. This was deepened through skin and subcutaneous tissue with care being taken to identify and retract any vital neurovascular structures. The digits were disarticulated at the MPJ and removed from the field in toto, sent to pathology for further evaluation. Metatarsal heads all appeared healthy. The fat pad was mildly debulked to allow for adequate closure. The area was flushed with copious amounts of sterile saline, and the incision site was easily closed with minimal tension using 3-0 Prolene. Any and all bleeders were cauterized and ligated prior to closure. A sterile dressing of Adaptic, 4 x 4's, cast padding and a light Rosendo wrap were applied. The patient tolerated the procedure and the anesthesia well. She will recover in the PACU for a period of time before being discharged back to her room with written and oral postoperative instructions. VERÓNICA Pierce/sal , 04:54 PM , 05:01 PM
[2017-10-19] MEDS: Levothyroxine 125 MCG Tablet PO SCH (05:21)
[2017-10-19] MEDS: Ondansetron Liq 4 MG/5 ML UDC PO PRN (05:21)
[2017-10-19] MEDS: Famotidine 20 MG Tablet G-TUBE SCH ×2 (08:08→21:05)
[2017-10-19] MEDS: predniSONE 10 MG Tablet PO SCH (08:08)
[2017-10-19] MEDS: Furosemide 20 MG Tablet PO SCH (08:08)
[2017-10-19] MEDS: Senna/Docusate Sodium 8.6/50 MG Tablet PO SCH ×2 (08:08→21:05)
[2017-10-19] MEDS: Heparin Central Flush 100 UNIT/ML 5 ML Vial IV.FLUSH SCH (08:08)
[2017-10-19] MEDS: Sod Chloride 0.9% Inj 1,000 ML IV.CONT SCH ×2 (09:10→17:58)
--- NOTE | 2017-10-19 11:17 | P.PNIM ---
Subjective Interval history: in no acute distress. has some pain to the right foot. no fever. no other complaints. Physical Exam Vital signs: Vital Signs 10/18/17 12:00 10/18/17 13:59 10/18/17 16:51 Temperature 99.1 F 98.5 F Pulse Rate 87 76 92 H Respiratory Rate 16 16 14 Blood Pressure 160/101 H 160/88 H Pulse Oximetry 97 99 10/18/17 17:00 10/18/17 17:15 10/18/17 20:00 Temperature 98.5 F 98.2 F Pulse Rate 83 76 85 Respiratory Rate 14 14 12 Blood Pressure 159/84 H 150/81 H 143/82 H Pulse Oximetry 100 100 96 10/18/17 21:57 10/19/17 00:00 10/19/17 04:00 Temperature 97.2 F L 97.5 F L Pulse Rate 86 92 H 90 Respiratory Rate 16 18 18 Blood Pressure 126/67 122/65 Pulse Oximetry 99 96 99 10/19/17 08:00 10/19/17 08:45 Temperature 97.3 F L Pulse Rate 81 Respiratory Rate 18 Blood Pressure 112/69 Pulse Oximetry 100 100 Intake & Output 10/18/17 10/19/17 10/19/17 18:59 06:59 18:59 Intake Total 1100 / 1100 1960 / 1960 1000 / 1000 Output Total 460 / 460 2650 / 2650 Balance 640 / 640 -690 / -690 1000 / 1000 Weight 62.5 kg Intake: IV 1000 / 1000 1000 / 1000 1000 / 1000 NS Inj 1,000 ML @ 84 mls/hr IV. 1000 / 1000 1000 / 1000 1000 / 1000 CONT .[id number] [facility] Rx#:[id number] Oral 0 / 0 Tube Feeding 840 / 840 Water Bolus Amount 120 / 120 Anesthesia Amount 100 / 100 Output: Urine 800 / 800 Estimated Blood Loss 10 / 10 Urine Amount (Catheter) 1850 / 1850 Indwelling Urethral Catheter 1850 / 1850 Wound Vac Amount 450 / 450 Right Abdomen 450 / 450 Other: Mode Setting Right Abdomen Continuous Continuous Continuous Right Toe - 5th Digit Continuous Date of Last Bowel Movement 10/17/17 10/17/17 # Bowel Movements 0 - Constitutional no acute distress - Routine Respiratory Exam Present: CTA bilaterally - Routine Cardiovascular Exam Present: RRR - Routine Abdominal Exam Present: soft - Routine Extremities Exam Comments: right foot covered with clean dressing. - Routine Neurological Exam Present: alert - Urinary Catheter Management Indwelling Urethral Catheter Cath placed during this visit: yes Reason for continuing: Acute urinary retention Insertion date: 10/11/17 Results - Labs CBC & Chem 7: 10/18/17 06:20 10/15/17 13:15 - Imaging Impressions Foot X-Ray 10/18/17 00:00 CONCLUSION: Assessment and Plan - Plan Necrotizing fasciitis s/p debridement; s/p split thickness skin grafting 10/12 per plastic surgery Plan for VAC to be removal on Monday by Dr. Ricardo ID consulted ; finished the course of antibiotics- per ID. -continue PT/OT Anemia - s/p PRBC transfusion; now with improved H/H. -Will monitor CBC -Will defer chemical DVT PPX since downtrending -on PO iron supplementation leukocytosis- likely due to steroid- no fever- will monitor for now. gangrene of the right foot- podiatry consult appreciated - s/p right foot digital amputation 04/29/06/29. continue with pain control- podiatry following. Respiratory Tracheostomy in place for prior shelter ventilation. breathing well today -Continue O2 supplementation as needed, tracheostomy management -Continue PRN nebulizers -taper down prednisone. Hypothyroidism -Continue home Levothyroxine moderate malnutrition PEG in place. had modified barium swallow- ST following. -Will continue tube feeds GI PPX -Will continue with pepcid. DVT PPX -SCD's - will defer chemical PPX due to downtrending Hgb and recent need for transfusion Discharge Planning: when cleared by plastic surgery; wound vac to be removed next Monday. for amputation/ right foot- per podiatry.
[2017-10-19] MEDS: Morphine Inj 4 MG/ML Vial IV.PUSH PRN ×2 (15:05→15:14)
[2017-10-19] MEDS ORDERED: HYDROmorphone PF Inj 2 MG/ML Vial IV.PUSH PRN (15:12)
[2017-10-19] MEDS ORDERED: HYDROmorphone PF Inj 2 MG/ML Vial IV.PUSH ONE (15:15)
[2017-10-19] MEDS ORDERED: Morphine Inj 4 MG/ML Vial IV.PUSH ONE (16:45)
[2017-10-19] MEDS: Calcium/Vitamin D 250/125 MG Tablet PO SCH (17:57)
--- NOTE | 2017-10-19 19:34 | P.PNPOD ---
Physical Exam Vital signs: Vital Signs 10/18/17 20:00 10/18/17 21:57 10/19/17 00:00 Temperature 98.2 F 97.2 F L Pulse Rate 85 86 92 H Respiratory Rate 12 16 18 Blood Pressure 143/82 H 126/67 Pulse Oximetry 96 99 96 10/19/17 04:00 10/19/17 08:00 10/19/17 08:45 Temperature 97.5 F L 97.3 F L Pulse Rate 90 81 Respiratory Rate 18 18 Blood Pressure 122/65 112/69 Pulse Oximetry 99 100 100 10/19/17 12:00 10/19/17 16:00 Temperature 97.9 F 98.4 F Pulse Rate 82 83 Respiratory Rate 17 17 Blood Pressure 118/66 116/60 Pulse Oximetry 99 100 Intake & Output 10/19/17 10/19/17 10/20/17 06:59 18:59 06:59 Intake Total 1959 / 1959 Output Total 2650 / 2650 650 / 650 Balance -690 / -690 1350 / 1350 Weight 62.5 kg Intake: IV 1000 / 1000 1999 NS Inj 1,000 ML @ 84 mls/hr IV. 1000 / 1000 1999 CONT .[id number] [facility] Rx#:[id number] Oral 0 / 0 Tube Feeding 840 / 840 Water Bolus Amount 120 / 120 Output: Urine 800 / 800 650 / 650 Urine Amount (Catheter) 1850 / 1850 Indwelling Urethral Catheter 1849 / 185 Other: Mode Setting Right Abdomen Continuous Continuous Right Toe - 5th Digit Continuous Date of Last Bowel Movement 10/19/17 # Bowel Movements 0 1 Medications and Allergies Active Medications: Active Medications Acetaminophen (Tylenol) 650 mg PO Q6H PRN PRN Reason: FEVER >101F Albuterol (Albuterol Neb (Prn)) 2.5 mg NEB Q2HR NEB PRN PRN Reason: SHORTNESS OF BREATH/WHEEZING Last Admin: 10/18/17 21:54 Dose: 2.5 mg Ascorbic Acid (Vitamin C) 500 mg NG/OG HS [facility] Last Admin: 10/18/17 20:51 Dose: 500 mg Bisacodyl (Dulcolax Supp) 10 mg RECTAL DAILY PRN PRN Reason: SEVERE CONSITIPATION Calcium/Vitamin D (Oscal With D 250/125 Mg) 2 tab PO QPM [facility] Last Admin: 10/19/17 17:57 Dose: 2 tab Famotidine (Pepcid) 20 mg G-TUBE BID [facility] Last Admin: 10/19/17 08:08 Dose: 20 mg Fentanyl (Duragesic 25 Mcg Patch.72hr) 1 patch T-DERMAL Q3D [facility] Last Admin: 10/17/17 14:01 Dose: 1 patch Furosemide (Lasix) 20 mg PO DAILY [facility] Last Admin: 10/19/17 08:08 Dose: 20 mg Heparin Sodium (Porcine) (Heparin Central Flush) 0 unit IV.FLUSH PRN PRN PRN Reason: Flush PICC Line Last Admin: 10/11/17 23:31 Dose: 200 unit Heparin Sodium (Porcine) (Heparin Central Flush) 0 unit IV.FLUSH DAILY [facility] Last Admin: 10/19/17 08:08 Dose: 400 unit Hydromorphone HCl (Dilaudid Pf Inj) 1 mg IV.PUSH UNSCH PRN PRN Reason: DRESSING CHANGE Stop: 10/19/17 23:59 Sodium Chloride (Ns Inj) 1,000 mls @ 84 mls/hr IV.CONT .[id number] [facility] Last Admin: 10/19/17 17:58 Dose: 84 mls/hr Lactulose (Lactulose Liq) 30 ml PO DAILY PRN PRN Reason: SEVERE CONSITIPATION Levothyroxine Sodium (Synthroid) 125 mcg PO DAILY@0600 [facility] Last Admin: 10/19/17 05:21 Dose: 125 mcg Morphine Sulfate (Morphine Inj) 2 mg IV.PUSH Q2H PRN PRN Reason: PAIN SCALE 6 TO 10 Last Admin: 10/14/17 04:27 Dose: 2 mg Morphine Sulfate (Morphine Inj) 3 mg IV.PUSH Q4H PRN PRN Reason: BREAKTHROUGH PAIN Last Admin: 10/19/17 15:14 Dose: 3 mg Ondansetron HCl (Zofran Liq) 4 mg PO Q6H PRN PRN Reason: NAUSEA OR VOMITING Last Admin: 10/19/17 05:21 Dose: 4 mg Oxycodone/Acetaminophen (Percocet 5/325 Mg) 1 tab PO Q4H PRN PRN Reason: PAIN SCALE 1 TO 5 Last Admin: 10/18/17 10:52 Dose: 1 tab Oxycodone/Acetaminophen (Percocet 5/325 Mg) 2 tab PO Q4H PRN PRN Reason: PAIN SCALE 6 TO 10 Last Admin: 10/19/17 09:11 Dose: 2 tab Patch Removal (Remove Old Patch) 1 each T-DERMAL Q3D [facility] Last Admin: 10/17/17 14:01 Dose: 1 each Prednisone (Deltasone) 10 mg PO DAILY [facility] Last Admin: 10/19/17 08:08 Dose: 10 mg Prochlorperazine (Compazine Supp) 25 mg RECTAL Q12HR PRN PRN Reason: NAUSEA OR VOMITING Senna/Docusate Sodium (Natalie-Colace) 1 tab PO BID [facility] Last Admin: 10/19/17 08:08 Dose: 1 tab Sennosides (Senokot) 17.2 mg PO Q12H PRN PRN Reason: Moderate Constipation Sodium Chloride (Ns Flush) 2 ml IV.FLUSH BID [facility] Last Admin: 10/19/17 09:01 Dose: 2 ml Sodium Chloride (Ns Flush) 2 ml IV.FLUSH PRN PRN PRN Reason: FLUSH AFTER USING IV ACCESS Last Admin: 10/11/17 08:33 Dose: 2 ml Sodium Chloride (Ns Flush) 0 ml IV.FLUSH DAILY [facility] Last Admin: 10/19/17 09:01 Dose: 10 ml Sodium Chloride (Ns Flush) 0 ml IV.FLUSH PRN PRN PRN Reason: FLUSH AFTER USING IV ACCESS Sodium Chloride (Ns Flush) 0 ml IV.FLUSH PRN PRN PRN Reason: Flush After Blood Draws Zinc Sulfate (Zinc-220) 220 mg PO DAILY [facility] Last Admin: 10/19/17 08:08 Dose: 220 mg Allergies Allergy/AdvReac Type Severity Reaction Status Date / Time No Known Allergies Allergy Unknown Uncoded 07/22/17 19:30 Home Medications Medication Instructions Recorded Confirmed Type Calcium 500 With D 10/11/17 10/11/17 History Cardizem See Label Instructions .ROUTE 10/11/17 10/11/17 History .COMPLEX MDD 60mg ascorbic acid (vitamin C) 10/11/17 History fentanyl 10/11/17 History furosemide [Lasix] 20 mg PO DAILY 10/11/17 10/11/17 History guaifenesin 10/11/17 History levothyroxine [Synthroid] 125 mcg PO DAILY 10/11/17 10/11/17 History pantoprazole [Protonix] 40 mg PO DAILY 10/11/17 10/11/17 History sodium chloride 10/11/17 History zinc sulfate 220 mg PO DAILY 10/11/17 10/11/17 History Results - Labs CBC & Chem 7: 10/18/17 06:20 10/15/17 13:15 Assessment and Plan - Assessment (1) Gangrene of toe of right foot Code(s): I96 - Gangrene, not elsewhere classified Status: Acute - Plan s/p amputations right toes2,3,4,5, Dr Shafer 10/18/17 Keep bandage clean, dry, intact Will plan to change bandage tomorrow or Monday
[2017-10-19] MEDS: Ascorbic Acid 500 MG Tablet NG/OG SCH (21:05)
[2017-10-20] MEDS: Levothyroxine 125 MCG Tablet PO SCH (05:18)
[2017-10-20] MEDS: Famotidine 20 MG Tablet G-TUBE SCH ×2 (09:57→22:15)
[2017-10-20] MEDS: Heparin Central Flush 100 UNIT/ML 5 ML Vial IV.FLUSH SCH (09:57)
[2017-10-20] MEDS: Senna/Docusate Sodium 8.6/50 MG Tablet PO SCH ×2 (09:57→22:15)
[2017-10-20] MEDS: Furosemide 20 MG Tablet PO SCH (09:57)
[2017-10-20] MEDS: predniSONE 10 MG Tablet PO SCH (09:59)
--- NOTE | 2017-10-20 11:04 | P.PNIM ---
Subjective Interval history: in no acute distress. complaining of abdominal pain and diarrhea. low grade temp last night. Physical Exam Vital signs: Vital Signs 10/19/17 12:00 10/19/17 16:00 10/19/17 20:00 Temperature 97.9 F 98.4 F 98.3 F Pulse Rate 82 83 92 H Respiratory Rate 17 17 18 Blood Pressure 118/66 116/60 108/57 L Pulse Oximetry 99 100 98 10/19/17 21:33 10/20/17 00:00 10/20/17 04:00 Temperature 99.8 F H 98.3 F Pulse Rate 94 H Respiratory Rate 18 18 Blood Pressure 110/56 L 134/65 Pulse Oximetry 98 94 L 97 10/20/17 08:00 Temperature 98.5 F Pulse Rate 103 H Respiratory Rate 17 Blood Pressure 128/69 Pulse Oximetry 95 Intake & Output 10/19/17 10/20/17 10/20/17 18:59 06:59 18:59 Intake Total 1999 1200 / 1200 Output Total 650 / 650 650 / 650 Balance 1350 / 1350 550 / 550 Weight 60.1 kg Intake: IV 1999 NS Inj 1,000 ML @ 84 mls/hr IV. 1999 CONT .[id number] [facility] Rx#:[id number] Oral 0 / 0 Tube Feeding 840 / 840 Water Bolus Amount 360 / 360 Output: Urine 650 / 650 650 / 650 Other: Mode Setting Right Abdomen Continuous Right Toe - 5th Digit Continuous Date of Last Bowel Movement 10/19/17 # Bowel Movements 1 - Routine Respiratory Exam Present: CTA bilaterally - Routine Cardiovascular Exam Present: RRR - Routine Abdominal Exam Present: soft - Routine Extremities Exam Comments: right foot covered with clean dressing. - Routine Neurological Exam Present: alert, oriented X3 - Urinary Catheter Management Indwelling Urethral Catheter Cath placed during this visit: yes Reason for continuing: Chronic Urinary Retention Insertion date: 10/11/17 Results - Labs CBC & Chem 7: 10/18/17 06:20 10/15/17 13:15 Assessment and Plan - Plan Necrotizing fasciitis s/p debridement; s/p split thickness skin grafting 10/12 per plastic surgery wound vac has been removed. ID consulted ; finished the course of antibiotics- per ID. -continue PT/OT Anemia - s/p PRBC transfusion; now with improved H/H. -Will monitor CBC -Will defer chemical DVT PPX since downtrending -on PO iron supplementation leukocytosis- likely due to steroid- no fever- will monitor for now. gangrene of the right foot- podiatry consult appreciated - s/p right foot digital amputation 04/29/06/29. continue with pain control- podiatry following. 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 breathing well today -Continue O2 supplementation as needed, tracheostomy management -Continue PRN nebulizers -taper down prednisone. Hypothyroidism -Continue home Levothyroxine moderate malnutrition PEG in place. had modified barium swallow- ST following. -Will continue tube feeds Diarrhea; check the stool for c-diff. GI PPX -Will continue with pepcid. DVT PPX -SCD's - will defer chemical PPX due to downtrending Hgb and recent need for transfusion Discharge Planning: when cleared by podiatry- Dorian is following- d/w the case management.
--- NOTE | 2017-10-20 11:57 | P.DIET ---
Nutritional Evaluation Type of nutrition evaluation: follow-up Nutrition consult regarding: Tube Feeding Subjective Subjective Comments: Pt has no complaints regarding TFing. Denied N/V/D/C. Pt continued to say "I would love something to eat, can you get me something?" during my visit. Objective - Diagnosis Full thickness Skin /Graft to Right Torso wound - Objective % IBW: 110 (OGI=365#) Body Weight Used for Calculations: Actual (50.4kg) Energy Needs - Lower Range (kCal/kg): 35 Energy Needs - Upper Range (kCal/kg): 40 Lower Limit kCal/kg (kCals): 1,764 Upper Limit kCal/kg (kCals): 2,016 Lower Limit Protein Factor (Grams per Kg): 1.2 Upper Limit Protein Factor (Grams per Kg): 1.5 Lower Protein Needs (Protein): 60 Upper Protein Needs (Protein): 76 Fluid Factor (ml/kg): 30 Estimated Fluid Needs (ml): 1,512 Dietitian Reviewed in Medical Record: Curent medications, Intake & Output, Labs , Medical history, Tube feeding Diet Order: TF Only Speech Therapy Recommendations: Yes (NPO) Objective Comments: Meds: Vitamin C, Oscal D, Pepcid, Lasix, Synthroid, Zofran s/p 2, 3, 4, & 5 R digit amputation Skin graft 10/12, VAC removed 10/19LBM 10/19 Has trach, +MRSA Assessment Assessment: Pt remains on Vital 1.5 @ 70mls/hr x 22hrs. Discussed extensively w/ RN about pts TFing. Recommend changing TF to Vital 1.5 @ 55mls/hr x 22hrs (must be 2hrs w / Synthroid dose). This regimen will provide 1815kcals, 81g PRO, and 924mls fluid. ST following, pt remains NPO. s/p skin graft 10/12 to R torso. VAC removed. Dietitian following. Recommendations: 1. Recommend Vital 1.5 @ 55mls/hr x 22hrs. Hold 2hrs for Synthroid dose. Dietitian to Monitor: Lab values, Intake & Output, Tube feeding tolerance, Weight change, Wound/skin status, Swallow recommendations, Medical course
[2017-10-20] MEDS: Calcium/Vitamin D 250/125 MG Tablet PO SCH (17:44)
--- NOTE | 2017-10-20 18:17 | P.PNPOD ---
Subjective Interval history: s/p amputation right digits 2,3,4,5 Dr Shafer Review of Systems All other systems reviewed negative except as stated in HPI Physical Exam Vital signs: Vital Signs 10/19/17 20:00 10/19/17 21:33 10/20/17 00:00 Temperature 98.3 F 99.8 F H Pulse Rate 92 H 94 H Respiratory Rate 18 18 Blood Pressure 108/57 L 110/56 L Pulse Oximetry 98 98 94 L 10/20/17 04:00 10/20/17 08:00 10/20/17 12:00 Temperature 98.3 F 98.5 F 99.2 F Pulse Rate 103 H 99 H Respiratory Rate 18 17 17 Blood Pressure 134/65 128/69 155/77 H Pulse Oximetry 97 95 94 L 10/20/17 16:00 10/20/17 17:41 Temperature 97.8 F Pulse Rate 106 H Respiratory Rate 17 18 Blood Pressure 127/68 Pulse Oximetry 97 Intake & Output 10/19/17 10/20/17 10/20/17 18:59 06:59 18:59 Intake Total 1999 1200 / 1200 Output Total 650 / 650 650 / 650 Balance 1350 / 1350 550 / 550 Weight 60.1 kg Intake: IV 1999 NS Inj 1,000 ML @ 84 mls/hr IV. 1999 CONT .[id number] [facility] Rx#:[id number] Oral 0 / 0 Tube Feeding 840 / 840 Water Bolus Amount 360 / 360 Output: Urine 650 / 650 650 / 650 Other: Mode Setting Right Abdomen Continuous Right Toe - 5th Digit Continuous Date of Last Bowel Movement 10/19/17 10/20/17 # Bowel Movements 1 Narrative: Right foot with sutures intact to digit amputation sites. No active drainage. No erythema, minimal edema. No sign of infection present. No dehiscence noted. Medications and Allergies Active Medications: Active Medications Acetaminophen (Tylenol) 650 mg PO Q6H PRN PRN Reason: FEVER >101F Albuterol (Albuterol Neb (Prn)) 2.5 mg NEB Q2HR NEB PRN PRN Reason: SHORTNESS OF BREATH/WHEEZING Last Admin: 10/18/17 21:54 Dose: 2.5 mg Ascorbic Acid (Vitamin C) 500 mg NG/OG HS [facility] Last Admin: 10/19/17 21:05 Dose: 500 mg Bisacodyl (Dulcolax Supp) 10 mg RECTAL DAILY PRN PRN Reason: SEVERE CONSITIPATION Calcium/Vitamin D (Oscal With D 250/125 Mg) 2 tab PO QPM [facility] Last Admin: 10/20/17 17:44 Dose: 2 tab Famotidine (Pepcid) 20 mg G-TUBE BID [facility] Last Admin: 10/20/17 09:57 Dose: 20 mg Fentanyl (Duragesic 25 Mcg Patch.72hr) 1 patch T-DERMAL Q3D [facility] Last Admin: 10/20/17 14:13 Dose: 1 patch Furosemide (Lasix) 20 mg PO DAILY [facility] Last Admin: 10/20/17 09:57 Dose: 20 mg Heparin Sodium (Porcine) (Heparin Central Flush) 0 unit IV.FLUSH PRN PRN PRN Reason: Flush PICC Line Last Admin: 10/11/17 23:31 Dose: 200 unit Heparin Sodium (Porcine) (Heparin Central Flush) 0 unit IV.FLUSH DAILY [facility] Last Admin: 10/20/17 09:57 Dose: 500 unit Sodium Chloride (Ns Inj) 1,000 mls @ 84 mls/hr IV.CONT .[id number] [facility] Last Admin: 10/19/17 17:58 Dose: 84 mls/hr Lactulose (Lactulose Liq) 30 ml PO DAILY PRN PRN Reason: SEVERE CONSITIPATION Levothyroxine Sodium (Synthroid) 125 mcg PO DAILY@0600 [facility] Last Admin: 10/20/17 05:18 Dose: 125 mcg Morphine Sulfate (Morphine Inj) 2 mg IV.PUSH Q2H PRN PRN Reason: PAIN SCALE 6 TO 10 Last Admin: 10/14/17 04:27 Dose: 2 mg Morphine Sulfate (Morphine Inj) 3 mg IV.PUSH Q4H PRN PRN Reason: BREAKTHROUGH PAIN Last Admin: 10/19/17 15:14 Dose: 3 mg Ondansetron HCl (Zofran Liq) 4 mg PO Q6H PRN PRN Reason: NAUSEA OR VOMITING Last Admin: 10/19/17 05:21 Dose: 4 mg Oxycodone/Acetaminophen (Percocet 5/325 Mg) 1 tab PO Q4H PRN PRN Reason: PAIN SCALE 1 TO 5 Last Admin: 10/18/17 10:52 Dose: 1 tab Oxycodone/Acetaminophen (Percocet 5/325 Mg) 2 tab PO Q4H PRN PRN Reason: PAIN SCALE 6 TO 10 Last Admin: 10/20/17 14:08 Dose: 2 tab Patch Removal (Remove Old Patch) 1 each T-DERMAL Q3D [facility] Last Admin: 10/20/17 14:14 Dose: Not Given Prednisone (Deltasone) 10 mg PO DAILY [facility] Last Admin: 10/20/17 09:59 Dose: 10 mg Prochlorperazine (Compazine Supp) 25 mg RECTAL Q12HR PRN PRN Reason: NAUSEA OR VOMITING Senna/Docusate Sodium (Natalie-Colace) 1 tab PO BID [facility] Last Admin: 10/20/17 09:57 Dose: 1 tab Sennosides (Senokot) 17.2 mg PO Q12H PRN PRN Reason: Moderate Constipation Sodium Chloride (Ns Flush) 2 ml IV.FLUSH BID [facility] Last Admin: 10/20/17 09:59 Dose: Not Given Sodium Chloride (Ns Flush) 2 ml IV.FLUSH PRN PRN PRN Reason: FLUSH AFTER USING IV ACCESS Last Admin: 10/11/17 08:33 Dose: 2 ml Sodium Chloride (Ns Flush) 0 ml IV.FLUSH DAILY [facility] Last Admin: 10/20/17 09:59 Dose: Not Given Sodium Chloride (Ns Flush) 0 ml IV.FLUSH PRN PRN PRN Reason: FLUSH AFTER USING IV ACCESS Sodium Chloride (Ns Flush) 0 ml IV.FLUSH PRN PRN PRN Reason: Flush After Blood Draws Zinc Sulfate (Zinc-220) 220 mg PO DAILY [facility] Last Admin: 10/20/17 09:57 Dose: 220 mg Allergies Allergy/AdvReac Type Severity Reaction Status Date / Time No Known Allergies Allergy Unknown Uncoded 07/22/17 19:30 Home Medications Medication Instructions Recorded Confirmed Type Calcium 500 With D 10/11/17 10/11/17 History Cardizem See Label Instructions .ROUTE 10/11/17 10/11/17 History .COMPLEX MDD 60mg ascorbic acid (vitamin C) 10/11/17 History fentanyl 10/11/17 History furosemide [Lasix] 20 mg PO DAILY 10/11/17 10/11/17 History guaifenesin 10/11/17 History levothyroxine [Synthroid] 125 mcg PO DAILY 10/11/17 10/11/17 History pantoprazole [Protonix] 40 mg PO DAILY 10/11/17 10/11/17 History sodium chloride 10/11/17 History zinc sulfate 220 mg PO DAILY 10/11/17 10/11/17 History Results - Labs CBC & Chem 7: 10/18/17 06:20 10/15/17 13:15 - Imaging Impressions Foot X-Ray 10/18/17 00:00 CONCLUSION: Postsurgical changes as above. Assessment and Plan - Assessment (1) Gangrene of toe of right foot Code(s): I96 - Gangrene, not elsewhere classified Status: Acute - Plan s/p amputations right toes2,3,4,5, Dr Shafer 10/18/17 Keep bandage clean, dry, intact Weightbearing to heel only right foot. Changed bandage today. Orders in for a dressing change per nursing just prior to discharge. Follow up with Dr Shafer in 1 week after discharge in clinic. Podiatry signing off.
[2017-10-20] MEDS: Ascorbic Acid 500 MG Tablet NG/OG SCH (22:15)
[2017-10-20] MEDS: Sod Chloride 0.9% Inj 1,000 ML IV.CONT SCH (22:16)
[2017-10-21 05:24] LABS: Baso # (Auto) 0.1 th/mm3 (0.0-0.2); Baso % (Auto) 0.7 % (0.0-2.0); Eos # (Auto) 0.1 th/mm3 (0.0-0.4); Eos % (Auto) 1.3 % (0.0-4.0); Hematocrit 28.8 % (35.0-46.0); Hemoglobin 9.9 gm/dL (11.6-15.3); Lymph # (Auto) 1.4 th/mm3 (1.0-4.8); Lymph % (Auto) 15.8 % (9.0-44.0); Mean Corpuscular HGB Conc 34.2 % (32.0-36.0); Mean Corpuscular Hemoglobin 28.4 pg (27.0-34.0); Mean Corpuscular Volume 83.2 fL (80.0-100.0); Mean Platelet Volume 5.7 fL (7.0-11.0); Mono # (Auto) 1.2 th/mm3 (0.0-0.9); Mono % (Auto) 13.6 % (0.0-8.0); Neut # (Auto) 6.2 th/mm3 (1.8-7.7); Neut % (Auto) 68.6 % (16.0-70.0); Platelet Count 348 th/mm3 (150-450); Red Blood Count 3.47 mil/mm3 (4.00-5.30); Red Cell Distribution Width 16.2 % (11.6-17.2); White Blood Count 9.1 th/mm3 (4.0-11.0)
[2017-10-21 05:33] LABS: Anion Gap 7 meq/L (5-15); Blood Urea Nitrogen 13 mg/dL (7-18); Calcium 8.4 mg/dL (8.5-10.1); Carbon Dioxide 27.6 meq/L (21.0-32.0); Chloride 102 meq/L (98-107); Glomerular Filtration Rate Greater Than 89 mL/min (>89); Glucose,Random 115 mg/dL (74-106); Potassium 3.4 meq/L (3.5-5.1); Sodium 137 meq/L (136-145)
[2017-10-21] MEDS: Levothyroxine 125 MCG Tablet PO SCH (05:57)
[2017-10-21] MEDS: Sod Chloride 0.9% Inj 1,000 ML IV.CONT SCH ×3 (08:30→18:03)
[2017-10-21] MEDS: Senna/Docusate Sodium 8.6/50 MG Tablet PO SCH ×2 (09:01→20:46)
[2017-10-21] MEDS: predniSONE 10 MG Tablet PO SCH (09:01)
[2017-10-21] MEDS: Furosemide 20 MG Tablet PO SCH (09:01)
[2017-10-21] MEDS: Famotidine 20 MG Tablet G-TUBE SCH ×2 (09:01→20:47)
[2017-10-21] MEDS: Heparin Central Flush 100 UNIT/ML 5 ML Vial IV.FLUSH SCH (09:02)
--- NOTE | 2017-10-21 11:10 | P.PNIM ---
Subjective Interval history: in no acute distress. has mild abdominal pain. had some diarrhea last night. no fever. Physical Exam Vital signs: Vital Signs 10/20/17 12:00 10/20/17 16:00 10/20/17 17:41 Temperature 99.2 F 97.8 F Pulse Rate 99 H 106 H Respiratory Rate 17 17 18 Blood Pressure 155/77 H 127/68 Pulse Oximetry 94 L 97 10/20/17 20:00 10/21/17 00:00 10/21/17 01:56 Temperature 98.8 F 98.5 F Pulse Rate 87 79 Respiratory Rate 16 16 Blood Pressure 131/69 120/68 Pulse Oximetry 97 96 96 10/21/17 04:00 Temperature 98.3 F Pulse Rate 78 Respiratory Rate 14 Blood Pressure 129/60 Pulse Oximetry 96 Intake & Output 10/20/17 10/21/17 10/21/17 18:59 06:59 18:59 Output Total 2400 / 2400 Balance -2400 / -2400 Output: Urine 2400 / 2400 Other: Date of Last Bowel Movement 10/20/17 10/20/17 # Bowel Movements 2 - Constitutional no acute distress - Routine Respiratory Exam Present: CTA bilaterally - Routine Cardiovascular Exam Present: RRR - Routine Abdominal Exam Present: soft, tenderness (minimal to mild generalized tenderness.) - Routine Extremities Exam Comments: right foot covered with clean dressing. - Routine Neurological Exam Present: alert, oriented X3 - Urinary Catheter Management Indwelling Urethral Catheter Cath placed during this visit: yes Reason for continuing: Chronic Urinary Retention Insertion date: 10/11/17 Results - Labs CBC & Chem 7: 10/21/17 04:40 10/21/17 04:40 Laboratory Results - last 24 hr 10/20/17 10/21/17 10/21/17 18:45 04:40 04:40 WBC 9.1 RBC 3.47 L Hgb 9.9 L Hct 28.8 L MCV 83.2 MCH 28.4 MCHC 34.2 RDW 16.2 Plt Count 348 MPV 5.7 L Neut % (Auto) 68.6 Lymph % (Auto) 15.8 Turner % (Auto) 13.6 H Eos % (Auto) 1.3 Baso % (Auto) 0.7 Neut # (Auto) 6.2 Lymph # (Auto) 1.4 Turner # (Auto) 1.2 H Eos # (Auto) 0.1 Baso # (Auto) 0.1 WBC Differential . Differential Comment Auto diff final Sodium 137 Potassium 3.4 L Chloride 102 Carbon Dioxide 27.6 Anion Gap 7 BUN 13 Creatinine 0.43 L Estimated GFR Greater than 89 Random Glucose 115 H Calcium 8.4 L Stl C.difficile Tox PCR Positive H St C. diff Tox Epid 027 Negative - Imaging Impressions Foot X-Ray 10/18/17 00:00 CONCLUSION: Postsurgical changes as above. Assessment and Plan - Plan Necrotizing fasciitis s/p debridement; s/p split thickness skin grafting 10/12 per plastic surgery wound vac has been removed. ID consulted ; finished the course of antibiotics- per ID. -continue PT/OT Anemia - s/p PRBC transfusion; now with improved H/H. -Will monitor CBC -on PO iron supplementation gangrene of the right foot- podiatry consult appreciated - s/p right foot digital amputation 04/29/06/29. continue with pain control- podiatry follow-up appreciated; f/u as outpatient. C-diff colitis start on oral vanco and monitor. Respiratory Tracheostomy in place for prior fdc ventilation. breathing well today -Continue O2 supplementation as needed, tracheostomy management -Continue PRN nebulizers -taper down prednisone. Hypothyroidism -Continue home Levothyroxine moderate malnutrition PEG in place. had modified barium swallow- ST following. -Will continue tube feeds Diarrhea; check the stool for c-diff. GI PPX -Will continue with pepcid. DVT PPX -SCD's - will defer chemical PPX due to downtrending Hgb and recent need for transfusion Discharge Planning: when cleared by podiatry- Dorian is following- d/w the case management.
[2017-10-21] MEDS ORDERED: Potassium Chloride 20 MEQ Pwd Pkt G-TUBE ONE (11:13)
[2017-10-21] MEDS: Calcium/Vitamin D 250/125 MG Tablet PO SCH (18:03)
--- NOTE | 2017-10-21 20:27 | P.PNPOD ---
Review of Systems All other systems reviewed negative except as stated in HPI Physical Exam Vital signs: Vital Signs 10/21/17 00:00 10/21/17 01:56 10/21/17 04:00 Temperature 98.5 F 98.3 F Pulse Rate 79 78 Respiratory Rate 16 14 Blood Pressure 120/68 129/60 Pulse Oximetry 96 96 96 10/21/17 08:00 10/21/17 12:00 10/21/17 16:00 Temperature 97.4 F L 97.7 F Pulse Rate 81 86 79 Respiratory Rate 20 20 20 Blood Pressure 126/66 138/73 126/65 Pulse Oximetry 96 96 97 Intake & Output 10/21/17 10/21/17 10/22/17 06:59 18:59 06:59 Intake Total 1000 / 1000 Output Total 2074 Balance -1075 / -107 Intake: IV 1000 / 1000 NS Inj 1,000 ML @ 84 mls/hr IV. 1000 / 1000 CONT .[id number] [facility] Rx#:[id number] Output: Urine 2074 Other: Date of Last Bowel Movement 10/20/17 # Bowel Movements 1 Medications and Allergies Active Medications: Active Medications Acetaminophen (Tylenol) 650 mg PO Q6H PRN PRN Reason: FEVER >101F Albuterol (Albuterol Neb (Prn)) 2.5 mg NEB Q2HR NEB PRN PRN Reason: SHORTNESS OF BREATH/WHEEZING Last Admin: 10/18/17 21:54 Dose: 2.5 mg Ascorbic Acid (Vitamin C) 500 mg NG/OG HS [facility] Last Admin: 10/20/17 22:15 Dose: 500 mg Bisacodyl (Dulcolax Supp) 10 mg RECTAL DAILY PRN PRN Reason: SEVERE CONSITIPATION Calcium/Vitamin D (Oscal With D 250/125 Mg) 2 tab PO QPM [facility] Last Admin: 10/21/17 18:03 Dose: 2 tab Famotidine (Pepcid) 20 mg G-TUBE BID [facility] Last Admin: 10/21/17 09:01 Dose: 20 mg Fentanyl (Duragesic 25 Mcg Patch.72hr) 1 patch T-DERMAL Q3D [facility] Last Admin: 10/20/17 14:13 Dose: 1 patch Furosemide (Lasix) 20 mg PO DAILY [facility] Last Admin: 10/21/17 09:01 Dose: 20 mg Heparin Sodium (Porcine) (Heparin Central Flush) 0 unit IV.FLUSH PRN PRN PRN Reason: Flush PICC Line Last Admin: 10/11/17 23:31 Dose: 200 unit Heparin Sodium (Porcine) (Heparin Central Flush) 0 unit IV.FLUSH DAILY [facility] Last Admin: 10/21/17 09:02 Dose: 200 unit Sodium Chloride (Ns Inj) 1,000 mls @ 84 mls/hr IV.CONT .[id number] [facility] Last Admin: 10/21/17 18:03 Dose: Not Given Lactulose (Lactulose Liq) 30 ml PO DAILY PRN PRN Reason: SEVERE CONSITIPATION Levothyroxine Sodium (Synthroid) 125 mcg PO DAILY@0600 [facility] Last Admin: 10/21/17 05:57 Dose: 125 mcg Morphine Sulfate (Morphine Inj) 2 mg IV.PUSH Q2H PRN PRN Reason: PAIN SCALE 6 TO 10 Last Admin: 10/14/17 04:27 Dose: 2 mg Morphine Sulfate (Morphine Inj) 3 mg IV.PUSH Q4H PRN PRN Reason: BREAKTHROUGH PAIN Last Admin: 10/19/17 15:14 Dose: 3 mg Ondansetron HCl (Zofran Liq) 4 mg PO Q6H PRN PRN Reason: NAUSEA OR VOMITING Last Admin: 10/19/17 05:21 Dose: 4 mg Oxycodone/Acetaminophen (Percocet 5/325 Mg) 1 tab PO Q4H PRN PRN Reason: PAIN SCALE 1 TO 5 Last Admin: 10/18/17 10:52 Dose: 1 tab Oxycodone/Acetaminophen (Percocet 5/325 Mg) 2 tab PO Q4H PRN PRN Reason: PAIN SCALE 6 TO 10 Last Admin: 10/21/17 18:03 Dose: 2 tab Patch Removal (Remove Old Patch) 1 each T-DERMAL Q3D [facility] Last Admin: 10/20/17 14:14 Dose: Not Given Prednisone (Deltasone Liq) 5 mg PO DAILY [facility] Prochlorperazine (Compazine Supp) 25 mg RECTAL Q12HR PRN PRN Reason: NAUSEA OR VOMITING Senna/Docusate Sodium (Natalie-Colace) 1 tab PO BID [facility] Last Admin: 10/21/17 09:01 Dose: Not Given Sennosides (Senokot) 17.2 mg PO Q12H PRN PRN Reason: Moderate Constipation Sodium Chloride (Ns Flush) 2 ml IV.FLUSH BID [facility] Last Admin: 10/21/17 08:30 Dose: Not Given Sodium Chloride (Ns Flush) 2 ml IV.FLUSH PRN PRN PRN Reason: FLUSH AFTER USING IV ACCESS Last Admin: 10/11/17 08:33 Dose: 2 ml Sodium Chloride (Ns Flush) 0 ml IV.FLUSH DAILY [facility] Last Admin: 10/21/17 09:01 Dose: 5 ml Sodium Chloride (Ns Flush) 0 ml IV.FLUSH PRN PRN PRN Reason: FLUSH AFTER USING IV ACCESS Sodium Chloride (Ns Flush) 0 ml IV.FLUSH PRN PRN PRN Reason: Flush After Blood Draws Vancomycin HCl (Vancomycin Po) 125 mg PO QID [facility] Last Admin: 10/21/17 18:03 Dose: 125 mg Zinc Sulfate (Zinc-220) 220 mg PO DAILY [facility] Last Admin: 10/21/17 09:01 Dose: 220 mg Allergies Allergy/AdvReac Type Severity Reaction Status Date / Time No Known Allergies Allergy Unknown Uncoded 07/22/17 19:30 Home Medications Medication Instructions Recorded Confirmed Type Calcium 500 With D 10/11/17 10/11/17 History Cardizem See Label Instructions .ROUTE 10/11/17 10/11/17 History .COMPLEX MDD 60mg ascorbic acid (vitamin C) 10/11/17 History fentanyl 10/11/17 History furosemide [Lasix] 20 mg PO DAILY 10/11/17 10/11/17 History guaifenesin 10/11/17 History levothyroxine [Synthroid] 125 mcg PO DAILY 10/11/17 10/11/17 History pantoprazole [Protonix] 40 mg PO DAILY 10/11/17 10/11/17 History sodium chloride 10/11/17 History zinc sulfate 220 mg PO DAILY 10/11/17 10/11/17 History Results - Labs CBC & Chem 7: 10/21/17 04:40 10/21/17 04:40 Laboratory Results - last 24 hr 10/20/17 10/21/17 10/21/17 18:45 04:40 04:40 WBC 9.1 RBC 3.47 L Hgb 9.9 L Hct 28.8 L MCV 83.2 MCH 28.4 MCHC 34.2 RDW 16.2 Plt Count 348 MPV 5.7 L Neut % (Auto) 68.6 Lymph % (Auto) 15.8 [place] % (Auto) 13.6 H Eos % (Auto) 1.3 Baso % (Auto) 0.7 Neut # (Auto) 6.2 Lymph # (Auto) 1.4 [place] # (Auto) 1.2 H Eos # (Auto) 0.1 Baso # (Auto) 0.1 WBC Differential . Differential Comment Auto diff final Sodium 137 Potassium 3.4 L Chloride 102 Carbon Dioxide 27.6 Anion Gap 7 BUN 13 Creatinine 0.43 L Estimated GFR Greater than 89 Random Glucose 115 H Calcium 8.4 L Stl C.difficile Tox PCR Positive H St C. diff Tox Epid 027 Negative Assessment and Plan - Assessment (1) Gangrene of toe of right foot Code(s): I96 - Gangrene, not elsewhere classified Status: Acute - Plan s/p amputations right toes2,3,4,5, Dr Shafer 10/18/17 Keep bandage clean, dry, intact Weightbearing to heel only right foot. Orders in for a dressing change per nursing just prior to discharge. Follow up with Dr Shafer in 1 week after discharge in clinic. Clear for discharge from podiatry standpoint
[2017-10-21] MEDS: Ascorbic Acid 500 MG Tablet NG/OG SCH (20:46)
[2017-10-22] MEDS: Ondansetron Liq 4 MG/5 ML UDC PO PRN (05:19)
[2017-10-22] MEDS: Levothyroxine 125 MCG Tablet PO SCH (05:20)
[2017-10-22] MEDS: Senna/Docusate Sodium 8.6/50 MG Tablet PO SCH ×2 (09:09→20:23)
[2017-10-22] MEDS: Furosemide 20 MG Tablet PO SCH (09:10)
[2017-10-22] MEDS: predniSONE Liq 5 MG/5 ML UDC PO SCH (09:10)
[2017-10-22] MEDS: Heparin Central Flush 100 UNIT/ML 5 ML Vial IV.FLUSH SCH (09:11)
[2017-10-22] MEDS: Famotidine 20 MG Tablet G-TUBE SCH ×2 (09:11→20:23)
--- NOTE | 2017-10-22 12:03 | P.PNIM ---
Subjective Interval history: f/u; necrotizing fascitis/ right foot gangrene- c-diff colitis in no acute distress. has mild abdominal pain. still with loose BM's. no fever. d/w the RN. Physical Exam Vital signs: Vital Signs 10/21/17 12:00 10/21/17 16:00 10/21/17 20:00 Temperature 97.7 F 98.0 F Pulse Rate 86 79 81 Respiratory Rate 20 20 16 Blood Pressure 138/73 126/65 154/68 H Pulse Oximetry 96 97 100 10/21/17 20:45 10/21/17 22:23 10/22/17 00:00 Temperature 98.2 F Pulse Rate 84 Respiratory Rate 20 20 Blood Pressure 160/72 H Pulse Oximetry 96 97 10/22/17 04:00 10/22/17 07:54 10/22/17 08:00 Temperature 97.8 F 97.7 F Pulse Rate 79 94 H Respiratory Rate 20 18 22 Blood Pressure 138/67 137/80 Pulse Oximetry 96 95 Intake & Output 10/21/17 10/22/17 10/22/17 18:59 06:59 18:59 Intake Total 1000 / 1000 1240 / 1240 Output Total 2075 / 2075 800 / 800 Balance -1075 / -1075 1240 / 1240 -800 / -800 Weight 60.9 kg Intake: IV 1000 / 1000 NS Inj 1,000 ML @ 84 mls/hr IV. 1000 / 1000 CONT .[id number] [facility] Rx#:[id number] Tube Feeding 840 / 840 Tube Irrigant 400 / 400 Output: Urine 5 / 2075 800 / 800 Other: # Bowel Movements 1 1 - Constitutional no acute distress - Routine Respiratory Exam Present: CTA bilaterally - Routine Cardiovascular Exam Present: RRR - Routine Abdominal Exam Present: soft - Routine Extremities Exam Comments: right foot covered with clean dressing. - Routine Neurological Exam Present: alert - Urinary Catheter Management Indwelling Urethral Catheter Cath placed during this visit: yes Reason for continuing: Acute urinary retention Insertion date: 10/11/17 Results - Labs CBC & Chem 7: 10/21/17 04:40 10/21/17 04:40 - Procedures s/p debridement; s/p split thickness skin grafting 10/12 per plastic surgery. right foot digital amputation 2nd/3rd/4th and fifth. Assessment and Plan - Plan Necrotizing fasciitis s/p debridement; s/p split thickness skin grafting 10/12 per plastic surgery wound vac has been removed. ID consulted ; finished the course of antibiotics- per ID. -continue PT/OT Anemia - s/p PRBC transfusion; now with improved H/H. -Will monitor CBC -on PO iron supplementation gangrene of the right foot- podiatry consult appreciated - s/p right foot digital amputation 04/29/06/29. continue with pain control- podiatry follow-up appreciated; f/u as outpatient. C-diff colitis started on oral vanco - Respiratory Tracheostomy in place for prior custodial ventilation. breathing well today -Continue O2 supplementation as needed, tracheostomy management -Continue PRN nebulizers -taper down prednisone. Hypothyroidism -Continue home Levothyroxine moderate malnutrition PEG in place. had modified barium swallow- ST following and recommended puree diet. 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 GI PPX -Will continue with pepcid. DVT PPX -SCD's - will defer chemical PPX due to downtrending Hgb and recent need for transfusion Discharge Planning: dc planning; [place] tomorrow- if stable and insurance authorizations has been received. continue with pain regimen; E-Forsce was reviewed.
--- NOTE | 2017-10-22 12:49 | P.DIET ---
Nutritional Evaluation Type of nutrition evaluation: follow-up Nutrition consult regarding: Tube Feeding Screening comments: 10/22 [place] [facility] [place] pt to start a pureed diet. Recommend continuing TFings 2/2 pts skin graft and need for increased nutrition. Recommend nocturnal TFings of Vital 1.5 @ 75mls/hr x 12hrs (5pm-5am). This will provide pt w/ 50% of her nutritional requirements, allowing her to eat PO during the day. This regimen will provide 1350kcals, 61g PRO, and 688mls fluid. Objective - Diagnosis Full thickness Skin /Graft to Right Torso wound - Indications of Malnutrition Characteristics: Weight loss - Objective Nixon body weight: 54.5 kg (120-lb) % IBW: 110 (RJE=[id number]#) Body Weight Used for Calculations: Actual (50.4kg) Energy Needs - Lower Range (kCal/kg): 35 Energy Needs - Upper Range (kCal/kg): 40 Lower Limit kCal/kg (kCals): 1,764 Upper Limit kCal/kg (kCals): 2,016 Lower Limit Protein Factor (Grams per Kg): 1.2 Upper Limit Protein Factor (Grams per Kg): 1.5 Lower Protein Needs (Protein): 60 Upper Protein Needs (Protein): 76 Fluid Factor (ml/kg): 30 Estimated Fluid Needs (ml): 1,512 Dietitian Reviewed in Medical Record: Current diet, Curent medications, Intake & Output, Labs, Medical history, Tube feeding Diet Order: TF plus pureed diet Speech Therapy Recommendations: Yes (Pureed diet) Objective Comments: Meds: Vitamin C, Oscal D, Pepcid, Lasix, Synthroid, Zofran s/p 2, 3, 4, & 5 R digit amputation Skin graft 10/12, VAC removed 10/19LBM 10/19 Has trach, +MRSA Feeding - Current Tube Feeding Tube Feeding Product: Vital 1.5 Assessment Assessment: Pt has passed swallow eval per speech, pt to start a pureed diet. Recommend continuing TFings 2/2 pts skin graft and need for increased nutrition. Recommend nocturnal TFings of Vital 1.5 @ 75mls/hr x 12hrs (5pm-5am). This will provide pt w/ 50% of her nutritional requirements, allowing her to eat PO during the day. This regimen will provide 1350kcals, 61g PRO, and 688mls fluid. Will provide pt with Enlive on each meal tray, each bottle contains 350 kcals and 20 gms protein. Continue to monitor clinical course. Recommendations: 1. Recommend nocturnal TFings of Vital 1.5 @ 75mls/hr x 12hrs (5pm-5am). 2. Pureed diet during the day with Enlive tid Dietitian to Monitor: Lab values, Intake & Output, Tube feeding tolerance, Weight change, Wound/skin status, Swallow recommendations, Medical course
[2017-10-22] MEDS: Sod Chloride 0.9% Inj 1,000 ML IV.CONT SCH ×2 (13:34→16:51)
[2017-10-22] MEDS: Calcium/Vitamin D 250/125 MG Tablet PO SCH (18:01)
[2017-10-22] MEDS: Ascorbic Acid 500 MG Tablet NG/OG SCH (20:22)
[2017-10-23] MEDS: Ondansetron Liq 4 MG/5 ML UDC PO PRN ×2 (00:10→10:16)
[2017-10-23] MEDS: Sod Chloride 0.9% Inj 1,000 ML IV.CONT SCH ×2 (06:24→18:16)
[2017-10-23] MEDS: Levothyroxine 125 MCG Tablet PO SCH (06:25)
[2017-10-23] MEDS: Furosemide 20 MG Tablet PO SCH (09:03)
[2017-10-23] MEDS: Famotidine 20 MG Tablet G-TUBE SCH ×2 (09:03→20:21)
[2017-10-23] MEDS: Senna/Docusate Sodium 8.6/50 MG Tablet PO SCH ×2 (09:04→20:21)
[2017-10-23] MEDS: predniSONE Liq 5 MG/5 ML UDC PO SCH (09:06)
[2017-10-23] MEDS: Heparin Central Flush 100 UNIT/ML 5 ML Vial IV.FLUSH SCH (09:16)
--- NOTE | 2017-10-23 17:56 | P.PN ---
Subjective Interval history: f/u; necrotizing fascitis/ right foot gangrene- c-diff colitis in no acute distress. has mild abdominal discomfort still with loose BM's. no fever. asking for food and drink Physical Exam Vital signs: Vital Signs 10/22/17 20:00 10/23/17 00:00 10/23/17 04:00 Temperature 98.2 F 97.4 F L 98.7 F Pulse Rate 85 84 89 Respiratory Rate 18 Blood Pressure 135/60 161/73 H 123/78 Pulse Oximetry 95 99 94 L 10/23/17 08:00 10/23/17 12:00 10/23/17 16:00 Temperature 98.2 F 98.0 F 98.1 F Pulse Rate 84 82 61 Respiratory Rate 18 Blood Pressure 155/75 H 133/64 136/60 Pulse Oximetry 98 98 96 Intake & Output 10/22/17 10/23/17 10/23/17 18:59 06:59 18:59 Intake Total 1790 / 1790 Output Total 1100 / 1100 1300 / 1300 Balance -1100 / -1100 490 / 490 Weight 60.2 kg Intake: IV 1000 / 1000 NS Inj 1,000 ML @ 84 mls/hr IV. 1000 / 1000 CONT .[id number] [facility] Rx#:[id number] Tube Feeding 700 / 700 Tube Irrigant 90 / 90 Output: Urine 1100 / 1100 1300 / 1300 Other: # Bowel Movements 1 Narrative: GENERAL: This is a 62 year old thin female patient, well-developed patient, in no apparent distress. SKIN: large dressing right back and right lateral thigh to right torso wound dry and intact CARDIOVASCULAR: Regular rate and rhythm RESPIRATORY: Clear to auscultation. Breath sounds equal bilaterally. GASTROINTESTINAL: Abdomen soft, non-tender, nondistended. Normal active bowel sounds. Feeding tube in place with tube feeding running MUSCULOSKELETAL: Extremities without clubbing, cyanosis, or edema. NEURO: Alert & Oriented x4 to person, place, time, situation. Moves all ext x4 - Urinary Catheter Management Indwelling Urethral Catheter Cath placed during this visit: yes Reason for continuing: Other continuation reason Insertion date: 10/11/17 Results - Labs CBC & Chem 7: 10/21/17 04:40 10/21/17 04:40 - Procedures s/p debridement; s/p split thickness skin grafting 10/12 per plastic surgery. right foot digital amputation /3rd/ and fifth. Assessment and Plan - Plan Necrotizing fasciitis s/p debridement; s/p split thickness skin grafting 10/12 per plastic surgery wound vac has been removed. ID consulted ; finished the course of antibiotics- per ID. -continue OT, reconsult PT Anemia - s/p PRBC transfusion; now with improved H/H. -Will monitor CBC -on PO iron supplementation gangrene of the right foot- podiatry consult appreciated - s/p right foot digital amputation 04/29/06/29. continue with pain control- podiatry follow-up appreciated; f/u as outpatient. C-diff colitis started on oral vanco Respiratory Tracheostomy in place for prior intermediate ventilation. breathing well today -Continue O2 supplementation as needed, tracheostomy management -Continue PRN nebulizers -taper down prednisone. Hypothyroidism -Continue home Levothyroxine moderate malnutrition PEG in place. had modified barium swallow- ST following and recommended puree diet. -Will continue tube feeds at night with pureed diet during the day GI PPX -Will continue with pepcid. PT consulted DVT PPX -SCD's - will defer chemical PPX due to downtrending Hgb and recent need for transfusion Discussed with Dr. Pulido
[2017-10-23] MEDS: Calcium/Vitamin D 250/125 MG Tablet PO SCH (18:08)
--- NOTE | 2017-10-23 19:48 | P.PN ---
Subjective Interval history: 62-year-old female status post split-thickness skin graft to right torso wound Doing well. Reports minimal pain. Physical Exam Vital signs: Vital Signs 10/22/17 20:00 10/23/17 00:00 10/23/17 04:00 Temperature 98.2 F 97.4 F L 98.7 F Pulse Rate 85 84 89 Respiratory Rate 20 18 18 Blood Pressure 135/60 161/73 H 123/78 Pulse Oximetry 95 99 94 L 10/23/17 08:00 10/23/17 12:00 10/23/17 16:00 Temperature 98.2 F 98.0 F 98.1 F Pulse Rate 84 82 61 Respiratory Rate 18 18 18 Blood Pressure 155/75 H 133/64 136/60 Pulse Oximetry 98 98 96 Intake & Output 10/23/17 10/23/17 10/24/17 06:59 18:59 06:59 Intake Total 1790 / 1790 1240 / 1240 Output Total 1300 / 1300 Balance 490 / 490 1240 / 1240 Weight 60.2 kg Intake: IV 1000 / 1000 1000 / 1000 NS Inj 1,000 ML @ 84 mls/hr IV. 1000 / 1000 1000 / 1000 CONT .[id number] [facility] Rx#:[id number] Oral 240 / 240 Tube Feeding 700 / 700 Tube Irrigant 90 / 90 Output: Urine 1300 / 1300 Other: # Voids 1,700 # Bowel Movements 2 Narrative: No surrounding erythema appreciated Recipient and donor sites doing very well - Urinary Catheter Management Indwelling Urethral Catheter Cath placed during this visit: yes Reason for continuing: Other continuation reason Insertion date: 10/11/17 Results - Labs CBC & Chem 7: 10/21/17 04:40 10/21/17 04:40 - Procedures s/p debridement; s/p split thickness skin grafting 10/12 per plastic surgery. right foot digital amputation 2nd/3rd/4th and fifth. Assessment and Plan - Assessment (1) Open wound of trunk Status: Acute - Plan 62-year-old female status post split-thickness skin graft from right back and right lateral thigh to right torso wound on 10/12/2017 Patient appears comfortable Patient recipient sites with excellent take Continue daily mupirocin ointment Xeroform dressing changes No antibiotics needed from plastic surgery standpoint Discharge planning per primary Please have patient follow-up in plastic surgery clinic 2 weeks after discharge
[2017-10-23] MEDS: Ascorbic Acid 500 MG Tablet NG/OG SCH (20:21)
[2017-10-24] MEDS: Sod Chloride 0.9% Inj 1,000 ML IV.CONT SCH ×2 (01:53→19:39)
[2017-10-24 06:27] LABS: Baso # (Auto) 0.1 th/mm3 (0.0-0.2); Eos # (Auto) 0.2 th/mm3 (0.0-0.4); Eos % (Auto) 2.2 % (0.0-4.0); Hematocrit 28.7 % (35.0-46.0); Hemoglobin 9.7 gm/dL (11.6-15.3); Lymph # (Auto) 1.9 th/mm3 (1.0-4.8); Lymph % (Auto) 20.7 % (9.0-44.0); Mean Corpuscular HGB Conc 33.7 % (32.0-36.0); Mean Corpuscular Volume 82.9 fL (80.0-100.0); Mean Platelet Volume 5.6 fL (7.0-11.0); Mono # (Auto) 1.1 th/mm3 (0.0-0.9); Mono % (Auto) 12.5 % (0.0-8.0); Neut # (Auto) 5.8 th/mm3 (1.8-7.7); Neut % (Auto) 63.6 % (16.0-70.0); Platelet Count 398 th/mm3 (150-450); Red Blood Count 3.46 mil/mm3 (4.00-5.30); Red Cell Distribution Width 15.9 % (11.6-17.2); White Blood Count 9.2 th/mm3 (4.0-11.0)
[2017-10-24] MEDS: Levothyroxine 125 MCG Tablet PO SCH (06:37)
[2017-10-24 06:41] LABS: Anion Gap 7 meq/L (5-15); Blood Urea Nitrogen 10 mg/dL (7-18); Carbon Dioxide 28.2 meq/L (21.0-32.0); Chloride 97 meq/L (98-107); Glomerular Filtration Rate Greater Than 89 mL/min (>89); Glucose,Random 82 mg/dL (74-106); Potassium 3.9 meq/L (3.5-5.1); Sodium 132 meq/L (136-145)
[2017-10-24] MEDS: Heparin Central Flush 100 UNIT/ML 5 ML Vial IV.FLUSH SCH (08:58)
[2017-10-24] MEDS: Famotidine 20 MG Tablet G-TUBE SCH ×2 (08:59→20:33)
[2017-10-24] MEDS: Senna/Docusate Sodium 8.6/50 MG Tablet PO SCH ×2 (09:00→20:00)
[2017-10-24] MEDS: Furosemide 20 MG Tablet PO SCH (09:01)
[2017-10-24] MEDS: predniSONE Liq 5 MG/5 ML UDC PO SCH (09:02)
--- NOTE | 2017-10-24 11:47 | P.PN ---
Subjective Interval history: f/u; necrotizing fascitis/ right foot gangrene- c-diff colitis in no acute distress. still with loose BM's. no fever. was able to stand with PT today Physical Exam Vital signs: Vital Signs 10/23/17 12:00 10/23/17 16:00 10/23/17 20:00 Temperature 98.0 F 98.1 F 98.4 F Pulse Rate 82 61 78 Respiratory Rate 18 18 18 Blood Pressure 133/64 136/60 138/78 Pulse Oximetry 98 96 94 L 10/24/17 00:00 10/24/17 04:00 10/24/17 08:00 Temperature 99 F 98.4 F 98.7 F Pulse Rate 91 H 88 87 Respiratory Rate 17 18 18 Blood Pressure 154/68 H 134/63 149/75 H Pulse Oximetry 96 93 L 97 Intake & Output 10/23/17 10/24/17 10/24/17 18:59 06:59 18:59 Intake Total 1240 / 1240 1000 / 1000 Output Total 2100 / 2100 Balance 1240 / 1240 -1100 / -1100 Weight 61.4 kg Intake: IV 1000 / 1000 1000 / 1000 NS Inj 1,000 ML @ 84 mls/hr IV. 1000 / 1000 1000 / 1000 CONT .[id number] [facility] Rx#:[id number] Oral 240 / 240 Output: Urine 2100 / 2100 Other: # Voids 1,700 # Bowel Movements 2 2 Narrative: GENERAL: This is a 62 year old thin female patient, well-developed patient, in no apparent distress. SKIN: large dressing right back and right lateral thigh to right torso wound dry and intact CARDIOVASCULAR: Regular rate and rhythm RESPIRATORY: Clear to auscultation. Breath sounds equal bilaterally. GASTROINTESTINAL: Abdomen soft, non-tender, nondistended. Normal active bowel sounds. Feeding tube in place with tube feeding running MUSCULOSKELETAL: Extremities without clubbing, cyanosis, or edema. NEURO: Alert & Oriented x4 to person, place, time, situation. Moves all ext x4 - Urinary Catheter Management Indwelling Urethral Catheter Cath placed during this visit: yes Reason for continuing: Acute urinary retention Insertion date: 10/11/17 Results - Labs CBC & Chem 7: 10/24/17 05:55 10/24/17 05:55 Laboratory Results - last 24 hr 10/24/17 10/24/17 05:55 05:55 WBC 9.2 RBC 3.46 L Hgb 9.7 L Hct 28.7 L MCV 82.9 MCH 28.0 MCHC 33.7 RDW 15.9 Plt Count 398 MPV 5.6 L Neut % (Auto) 63.6 Lymph % (Auto) 20.7 [place] % (Auto) 12.5 H Eos % (Auto) 2.2 Baso % (Auto) 1.0 Neut # (Auto) 5.8 Lymph # (Auto) 1.9 [place] # (Auto) 1.1 H Eos # (Auto) 0.2 Baso # (Auto) 0.1 WBC Differential . Differential Comment Auto diff final Sodium 132 L Potassium 3.9 Chloride 97 L Carbon Dioxide 28.2 Anion Gap 7 BUN 10 Creatinine 0.38 L Estimated GFR Greater than 89 Random Glucose 82 Calcium 8.0 L - Procedures s/p debridement; s/p split thickness skin grafting 10/12 per plastic surgery. right foot digital amputation // and fifth. Assessment and Plan - Plan Necrotizing fasciitis s/p debridement; s/p split thickness skin grafting 10/12 per plastic surgery wound vac has been removed. ID consulted ; finished the course of antibiotics- per ID. -continue OT, reconsult PT Anemia - s/p PRBC transfusion; now with improved H/H. -Will monitor CBC -on PO iron supplementation gangrene of the right foot- podiatry consult appreciated - s/p right foot digital amputation 04/29/06/29. continue with pain control- podiatry follow-up appreciated; f/u as outpatient. C-diff colitis started on oral vanco Respiratory Tracheostomy in place for prior longterm ventilation. breathing well today -Continue O2 supplementation as needed, tracheostomy management -Continue PRN nebulizers -taper down prednisone. Hypothyroidism -Continue home Levothyroxine moderate malnutrition PEG in place. had modified barium swallow- ST following and recommended puree diet. -Will continue tube feeds at night with pureed diet during the day Na 132 (10/24) recheck BMP in AM GI PPX -Will continue with pepcid. PT consulted DVT PPX -SCD's - will defer chemical PPX due to downtrending Hgb and recent need for transfusion Discussed with Dr. Roberts
--- NOTE | 2017-10-24 15:05 | P.DS ---
Date of admission: 10/11/17 03:43 Primary care physician: No Primary Care Physician Attending physician on discharge: Adiel Roberts Anticipated date of discharge: 10/24/17 Brief History from admission: 62-year-old female with a medical history signet for developmental delay who presented to [facility] few months ago with necrotizing fasciitis for which she underwent multiple trips to the OR for debridement and subsequently wound VAC placement. She was discharged to [facility] after recovering from septic shock at the time. Patient has been weaned off mechanical ventilation and has a tracheostomy in place. She was transferred back from [facility] to [facility] as she is being scheduled for skin grafting. When I evaluated patient he is awake and alert talking with the speaking valve on trach. PEG tube was in place. She was not in any acute distress. History was obtained by reviewing records and discussion with nursing staff. Off note patient is still on IV vancomycin and meropenem at [facility] which will be continued. DS: Diagnosis - Discharge Diagnosis (1) Gangrene of toe of right foot Status: Acute (2) Open wound of trunk Status: Acute DS: Summary Hospital Course: Necrotizing fasciitis s/p debridement; s/p split thickness skin grafting 10/12 per plastic surgery wound vac has been removed. ID consulted ; finished the course of antibiotics- per ID. -continue OT, reconsult PT Anemia - s/p PRBC transfusion; now with improved H/H. -Will monitor CBC -on PO iron supplementation gangrene of the right foot- podiatry consult appreciated - s/p right foot digital amputation 2/3/4/5. continue with pain control- podiatry follow-up appreciated; f/u as outpatient. 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 breathing well today -Continue O2 supplementation as needed, tracheostomy management -Continue PRN nebulizers -taper down prednisone. Hypothyroidism -Continue home Levothyroxine moderate malnutrition PEG in place. had modified barium swallow- ST following and recommended puree diet. -Will continue tube feeds at night with pureed diet during the day Na 132 (10/24) recheck BMP in AM GI PPX -Will continue with pepcid. PT consulted DVT PPX -SCD's - will defer chemical PPX due to downtrending Hgb and recent need for transfusion Discussed with Dr. Roberts - Time Spent with Patient Total time spent providing and/or coordinating discharge services: Greater than 30 minutes - Quality: VTE Deep Vein Thrombosis/Pulmonary Embolism Present on Admission: No Exam Vital signs: Vital Signs 10/23/17 16:00 10/23/17 20:00 10/24/17 00:00 Temperature 98.1 F 98.4 F 99 F Pulse Rate 61 78 91 H Respiratory Rate 18 18 17 Blood Pressure 136/60 138/78 154/68 H Pulse Oximetry 96 94 L 96 10/24/17 04:00 10/24/17 08:00 10/24/17 12:00 Temperature 98.4 F 98.7 F 97.2 F L Pulse Rate 88 87 83 Respiratory Rate 18 18 16 Blood Pressure 134/63 149/75 H 142/70 H Pulse Oximetry 93 L 97 97 Intake & Output 10/23/17 10/24/17 10/24/17 18:59 06:59 18:59 Intake Total 1240 / 1240 1000 / 1000 Output Total 2100 / 2100 Balance 1240 / 1240 -1100 / -1100 Weight 61.4 kg Intake: IV 1000 / 1000 1000 / 1000 NS Inj 1,000 ML @ 84 mls/hr IV. 1000 / 1000 1000 / 1000 CONT .[id number] [facility] Rx#:[id number] Oral 240 / 240 Output: Urine 2100 / 2100 Other: # Voids 1,700 # Bowel Movements 2 2 Narrative: GENERAL: This is a 62 year old thin female patient, well-developed patient, in no apparent distress. SKIN: large dressing right back and right lateral thigh to right torso wound dry and intact CARDIOVASCULAR: Regular rate and rhythm RESPIRATORY: Clear to auscultation. Breath sounds equal bilaterally. GASTROINTESTINAL: Abdomen soft, non-tender, nondistended. Normal active bowel sounds. Feeding tube in place with tube feeding running MUSCULOSKELETAL: Extremities without clubbing, cyanosis, or edema. NEURO: Alert & Oriented x4 to person, place, time, situation. Moves all ext x4 Results Procedures completed during hospitalization: s/p debridement; s/p split thickness skin grafting 10/12 per plastic surgery. right foot digital amputation /3rd/4th and fifth. Completed studies during hospitalization: Pending at discharge 10/18/17 08:09 Surgical [PTH] Routine Labs on day of discharge: Labs from last 24 hours 10/24/17 10/24/17 05:55 05:55 WBC 9.2 RBC 3.46 L Hgb 9.7 L Hct 28.7 L MCV 82.9 MCH 28.0 MCHC 33.7 RDW 15.9 Plt Count 398 MPV 5.6 L Neut % (Auto) 63.6 Lymph % (Auto) 20.7 [place] % (Auto) 12.5 H Eos % (Auto) 2.2 Baso % (Auto) 1.0 Neut # (Auto) 5.8 Lymph # (Auto) 1.9 [place] # (Auto) 1.1 H Eos # (Auto) 0.2 Baso # (Auto) 0.1 WBC Differential . Differential Comment Auto diff final Sodium 132 L Potassium 3.9 Chloride 97 L Carbon Dioxide 28.2 Anion Gap 7 BUN 10 Creatinine 0.38 L Estimated GFR Greater than 89 Random Glucose 82 Calcium 8.0 L - Impressions ITS Impressions Chest X-Ray 10/11/17 07:10 CONCLUSION: 1. Mild increasing infiltrate in the right lung base. 2. Stable atelectasis in the left lung base. Videofluoroscopic Swallow 10/17/17 00:00 CONCLUSION: Modified barium swallow. Foot X-Ray 10/18/17 00:00 CONCLUSION: Postsurgical changes as above. Discharge Plan - Discharge Disposition Patient Disposition: 62 Rehab Inpatient - Discharge Condition Condition: Stable - Discharge Order Discharge Orders: Discharge Order (Routine); Ordered 10/24/17 Ordered By: Jazmyne Norman - Discharge Details Anticipated Discharge Date: 10/24/17 - Physicians Team Primary Care Provider: Primary Care Galloi,Emely Attending Provider: Mohsen Ralph Other Providers: Yogi Ricardo MD ; [facility] ; Jaylan Burt MD ; Lili Shafer DPM ; [facility] ; [facility] ; Do Espinoza MD - Rxs /Orders / Referrals /Forms Prescriptions: New albuterol sulfate 2.5 mg /3 mL (0.083 %) Solution For Nebulization 2.5 mg NEB Q2HR NEB PRN (Reason: Shortness Of Breath/Wheezing) 7 Days RF: 0 fentanyl [Duragesic] 25 mcg/hr Patch 72 Hour 1 patch Transdermal Q3D Qty: 1 RF: 0 oxycodone-acetaminophen 5-325 mg Tablet 1 tab PO Q4H PRN (Reason: acute pain) Qty: 10 RF: 0 vancomycin 500 mg Recon Soln 125 mg PO QID 10 Days RF: 0 Continue ascorbic acid (vitamin C) Calcium 500 With D furosemide [Lasix] 20 mg Tablet 20 mg PO DAILY levothyroxine [Synthroid] 125 mcg Tablet 125 mcg PO DAILY pantoprazole [Protonix] 40 mg Tablet,Delayed Release (Dr/Ec) 40 mg PO DAILY zinc sulfate 220 mg Tablet 220 mg PO DAILY Discontinued Cardizem See Label Instructions .ROUTE .COMPLEX MDD 60mg fentanyl guaifenesin sodium chloride 1 gram Tablet Referrals: Yogi Ricardo MD [PLASTIC & RECONSTRUCTIVE SURGE] - See Instructions (follow up in two weeks) Lili Shafer DPM [Physician] - See Instructions (follow up in 1 week) Primary Care Emely Garcia [Primary Care Provider] - See Instructions (follow up in 1 week) Lamar Ortiz MD [Family Provider] - See Instructions - Discharge Instructions Patient Printed Instructions: Oxycodone/Acetaminophen (By mouth), Albuterol ( By breathing), Fentanyl (Absorbed through the skin), Vancomycin (By mouth), Skin Grafting (DC) Additional Instructions: wound care per plastic surgery: Continue daily mupirocin ointment Xeroform dressing changes
[2017-10-24] MEDS: Ondansetron Liq 4 MG/5 ML UDC PO PRN (17:29)
[2017-10-24] MEDS: Calcium/Vitamin D 250/125 MG Tablet PO SCH (18:54)
[2017-10-24] MEDS: Ascorbic Acid 500 MG Tablet NG/OG SCH (20:33)
[2017-10-25] MEDS: Levothyroxine 125 MCG Tablet PO SCH (05:12)
[2017-10-25] MEDS: Furosemide 20 MG Tablet PO SCH (09:27)
[2017-10-25] MEDS: Famotidine 20 MG Tablet G-TUBE SCH ×2 (09:27→21:36)
[2017-10-25] MEDS: predniSONE Liq 5 MG/5 ML UDC PO SCH (09:27)
[2017-10-25] MEDS: Heparin Central Flush 100 UNIT/ML 5 ML Vial IV.FLUSH SCH (09:29)
[2017-10-25] MEDS: Senna/Docusate Sodium 8.6/50 MG Tablet PO SCH ×2 (09:30→21:36)
--- NOTE | 2017-10-25 10:53 | P.PN ---
Subjective Interval history: Follow up for necrotizing fascitis/ right foot gangrene, c.diff colitis. The patient does not participate in verbal conversation, however does shake her head yes and no. She has no complaints. Denies fevers or chills. Denies any abdominal pain, nausea/vomiting. Tolerating oral intake. Vital signs reviewed and stable. Physical Exam Vital signs: Vital Signs 10/24/17 12:00 10/24/17 16:00 10/24/17 20:00 Temperature 97.2 F L 97.3 F L 98.4 F Pulse Rate 83 82 85 Respiratory Rate 16 18 16 Blood Pressure 142/70 H 142/73 H 135/70 Pulse Oximetry 97 94 L 98 10/25/17 00:00 10/25/17 04:00 10/25/17 08:00 Temperature 98 F 97.8 F 97.5 F L Pulse Rate 85 77 79 Respiratory Rate 16 16 17 Blood Pressure 147/70 H 137/70 153/83 H Pulse Oximetry 97 98 96 Intake & Output 10/24/17 10/25/17 10/25/17 18:59 06:59 18:59 Intake Total 1600 / 1600 1197 / 1197 Output Total 1400 / 1400 1100 / 1100 Balance 200 / 200 97 / 97 Weight 60.2 kg Intake: IV 1000 / 1000 NS Inj 1,000 ML @ 84 mls/hr IV. 1000 / 1000 CONT .[id number] [facility] Rx#:[id number] Oral 600 / 600 0 / 0 Tube Feeding 847 / 847 Tube Irrigant 100 / 100 Water Bolus Amount 250 / 250 Output: Urine 1400 / 1400 1100 / 1100 Other: # Bowel Movements 1 0 Narrative: GENERAL: Thin female patient in NAD. SKIN: Warm and dry. Large dressing throughout torso and lateral thigh, CDI. HEENT: Normocephalic. Atraumatic. Pupils equal and round. Mucous membranes pink and moist. CARDIOVASCULAR: Regular rate and rhythm. No murmur appreciated. RESPIRATORY: No accessory muscle use. Clear to auscultation. Breath sounds equal bilaterally. GASTROINTESTINAL: Abdomen soft, non-tender, nondistended. Normoactive bowel sounds x4. PEG in place. MUSCULOSKELETAL: No obvious deformities. Extremities without clubbing, cyanosis , or edema. NEUROLOGICAL: Awake and alert. No obvious cranial nerve deficits. Motor grossly within normal limits. Moving all extremities spontaneously. - Urinary Catheter Management Indwelling Urethral Catheter Cath placed during this visit: yes Reason for continuing: Acute urinary retention Insertion date: 10/11/17 Results - Labs CBC & Chem 7: 10/24/17 05:55 10/24/17 05:55 - Imaging Chest X-Ray 10/11/17 07:10 CONCLUSION: 1. Mild increasing infiltrate in the right lung base. 2. Stable atelectasis in the left lung base. Videofluoroscopic Swallow 10/17/17 00:00 CONCLUSION: Modified barium swallow. Foot X-Ray 10/18/17 00:00 CONCLUSION: Postsurgical changes as above. - Procedures s/p debridement; s/p split thickness skin grafting 10/12 per plastic surgery. right foot digital amputation // and fifth. Assessment and Plan - Assessment (1) Gangrene of toe of right foot Code(s): I96 - Gangrene, not elsewhere classified Status: Acute (2) Open wound of trunk Status: Acute - Plan Necrotizing fasciitis -s/p debridement; s/p split thickness skin grafting 10/12 per plastic surgery -wound vac has been removed. -ID consulted ; finished the course of antibiotics- per ID. -continue OT, reconsult PT Anemia -s/p PRBC transfusion; now with improved H/H. -Will monitor CBC -on PO iron supplementation Gangrene of the right foot- podiatry consult appreciated - s/p right foot digital amputation /3//5. -continue with pain control -podiatry follow-up appreciated; f/u as outpatient. 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 breathing well today -Continue O2 supplementation as needed, tracheostomy management -Continue PRN nebulizers -taper down prednisone, on 5mg daily Hypothyroidism -Continue home Levothyroxine moderate malnutrition -PEG in place. had modified barium swallow- ST following and recommended puree diet. -Will continue tube feeds at night with pureed diet during the day Na 132 (10/24) -repeat BMP still pending today GI PPX -Will continue with pepcid. PT consulted DVT PPX-SCD's. Will defer chemical prophylaxis due to downtrending Hgb and recent need for transfusion Discharge Planning: Needs placement. Case management assisting with discharge planning.
[2017-10-25] MEDS: Sod Chloride 0.9% Inj 1,000 ML IV.CONT SCH ×2 (13:27→21:37)
[2017-10-25 17:36] LABS: Anion Gap 7 meq/L (5-15); Blood Urea Nitrogen 9 mg/dL (7-18); Carbon Dioxide 30.5 meq/L (21.0-32.0); Chloride 90 meq/L (98-107); Glomerular Filtration Rate Greater Than 89 mL/min (>89); Glucose,Random 84 mg/dL (74-106); Potassium 4.3 meq/L (3.5-5.1); Sodium 127 meq/L (136-145)
[2017-10-25] MEDS: Calcium/Vitamin D 250/125 MG Tablet PO SCH (18:06)
[2017-10-25] MEDS: Ascorbic Acid 500 MG Tablet NG/OG SCH (21:36)
[2017-10-26] MEDS: Levothyroxine 125 MCG Tablet PO SCH (05:22)
[2017-10-26] MEDS: Furosemide 20 MG Tablet PO SCH (08:38)
[2017-10-26] MEDS: Senna/Docusate Sodium 8.6/50 MG Tablet PO SCH ×2 (08:39→21:49)
[2017-10-26] MEDS: Famotidine 20 MG Tablet G-TUBE SCH ×2 (08:39→21:48)
[2017-10-26] MEDS: Heparin Central Flush 100 UNIT/ML 5 ML Vial IV.FLUSH SCH (08:39)
[2017-10-26] MEDS: predniSONE Liq 5 MG/5 ML UDC PO SCH (08:39)
[2017-10-26] MEDS: Sod Chloride 0.9% Inj 1,000 ML IV.CONT SCH (14:59)
[2017-10-26] MEDS: Ondansetron Liq 4 MG/5 ML UDC PO PRN (15:33)
--- NOTE | 2017-10-26 16:11 | P.PNIM ---
Subjective Interval history: Right thigh/lower extremity pain control. Afebrile. No complaints. Physical Exam Vital signs: Vital Signs 10/25/17 17:40 10/25/17 20:00 10/26/17 00:58 Temperature 97.9 F Pulse Rate 72 Respiratory Rate 16 Blood Pressure 120/61 Pulse Oximetry 98 95 96 10/26/17 04:00 10/26/17 08:00 10/26/17 12:00 Temperature 97.9 F 97.7 F 98.5 F Pulse Rate 77 92 H 88 Respiratory Rate 18 Blood Pressure 110/65 181/92 H 148/77 H Pulse Oximetry 96 95 94 L 10/26/17 14:25 Temperature Pulse Rate Respiratory Rate Blood Pressure Pulse Oximetry 93 L Intake & Output 10/25/17 10/26/17 10/26/17 18:59 06:59 18:59 Intake Total 1537 / 1537 1000 / 1000 1000 / 1000 Output Total 7710 / 7710 Balance -6173 / -6173 999 / 999 1000 / 1000 Weight 60.2 kg Intake: IV 1000 / 1000 1000 / 1000 NS Inj 1,000 ML @ 84 mls/hr IV. 1000 / 1000 1000 / 1000 CONT .[id number] [facility] Rx#:[id number] Oral 240 / 240 Tube Feeding 847 / 847 Tube Irrigant 100 / 100 Water Bolus Amount 250 / 250 Anesthesia Amount 100 / 100 Output: Urine 7600 / 7600 Stool / Estimated Blood Loss 10 / 10 Wound Drainage 100 / 100 RIGHT ABDOMEN 100 / 100 Other: Bladder Irrigation Fluid - Amount Instilled Indwelling Urethral Catheter 600 Bladder Irrigation Fluid - Amount Drained Indwelling Urethral Catheter 2 Mode Setting Right Abdomen Continuous # Voids 1,700 Date of Last Bowel Movement 10/25/17 10/25/17 10/25/17 # Bowel Movements 1 # Incontinent Bowel Movements 2 Narrative: GENERAL: Nondistressed. SKIN: Warm and dry. Large dressing throughout torso and lateral thigh, CDI. HEENT: Normocephalic. Atraumatic. Pupils equal and round. Mucous membranes pink and moist. CARDIOVASCULAR: Regular rate and rhythm. No murmur appreciated. RESPIRATORY: No accessory muscle use. Clear to auscultation. Breath sounds equal bilaterally. GASTROINTESTINAL: Abdomen soft, non-tender, nondistended. Normoactive bowel sounds x4. PEG in place, CDI. MUSCULOSKELETAL: No obvious deformities. Extremities without clubbing, cyanosis , or edema. NEUROLOGICAL: Awake and alert. No obvious cranial nerve deficits. Motor grossly within normal limits. Moving all extremities spontaneously. - Urinary Catheter Management Indwelling Urethral Catheter Cath placed during this visit: yes Reason for continuing: Acute urinary retention Insertion date: 10/11/17 Results - Labs CBC & Chem 7: 10/24/17 05:55 10/25/17 16:09 Laboratory Results - last 24 hr 10/25/17 16:09 Sodium 127 L Potassium 4.3 Chloride 90 L Carbon Dioxide 30.5 Anion Gap 7 BUN 9 Creatinine 0.39 L Estimated GFR Greater than 89 Random Glucose 84 Calcium 9.0 D - Procedures s/p debridement; s/p split thickness skin grafting 10/12 per plastic surgery. right foot digital amputation // and fifth. Assessment and Plan - Assessment (1) Gangrene of toe of right foot Code(s): I96 - Gangrene, not elsewhere classified Status: Acute (2) Open wound of trunk Status: Acute - Plan Necrotizing fasciitis -s/p debridement; s/p split thickness skin grafting 10/12 per plastic surgery , wound VAC removed. Finish course of antibiotics per infectious disease. Continue wound dressings. Keep Terrazas catheter in to prevent soiling of wound with urine. Anemia -s/p PRBC transfusion; now with improved H/H. -on PO iron supplementation Gangrene of the right foot- podiatry consult appreciated - s/p right foot digital amputation 04/29//. -continue with pain control -podiatry follow-up appreciated; f/u as outpatient. C-diff colitis: diagnosed 10/20 -started on oral vanco 125mg po qid [id number] Respiratory -Tracheostomy in place for prior [facility] ventilation. breathing well today -Continue O2 supplementation as needed, tracheostomy management -Continue PRN nebulizers -taper down prednisone, on 5mg daily Hypothyroidism -Continue home Levothyroxine moderate malnutrition -PEG in place. had modified barium swallow- ST following and recommended puree diet. -Will continue tube feeds at night with pureed diet during the day Na 132 (10/24) -Start normal saline, recheck BMP tomorrow GI PPX -Will continue with pepcid. PT consulted DVT PPX-SCD's. Will defer chemical prophylaxis due to downtrending Hgb and recent need for transfusion Discharge Planning: Patient to [facility] for SNF, consult Dr. Marshall for rehab management.
[2017-10-26] MEDS ORDERED: Sod Chloride 0.9% Inj 1,000 ML IV.CONT SCH (17:23)
[2017-10-26] MEDS: Calcium/Vitamin D 250/125 MG Tablet PO SCH (18:37)
[2017-10-26] MEDS: Ascorbic Acid 500 MG Tablet NG/OG SCH (21:48)
[2017-10-27] MEDS: Ondansetron Liq 4 MG/5 ML UDC PO PRN (04:01)
[2017-10-27] MEDS: Levothyroxine 125 MCG Tablet PO SCH (06:01)
[2017-10-27 09:42] LABS: Anion Gap 8 meq/L (5-15); Blood Urea Nitrogen 11 mg/dL (7-18); Calcium 9.1 mg/dL (8.5-10.1); Carbon Dioxide 27.9 meq/L (21.0-32.0); Chloride 88 meq/L (98-107); Glomerular Filtration Rate Greater Than 89 mL/min (>89); Glucose,Random 101 mg/dL (74-106)
[2017-10-27] MEDS: Furosemide 20 MG Tablet PO SCH (09:44)
[2017-10-27] MEDS: Senna/Docusate Sodium 8.6/50 MG Tablet PO SCH ×2 (09:44→22:03)
[2017-10-27] MEDS: predniSONE Liq 5 MG/5 ML UDC PO SCH (09:44)
[2017-10-27] MEDS: Famotidine 20 MG Tablet G-TUBE SCH ×2 (09:44→22:03)
[2017-10-27 10:04] LABS: Sodium 124 meq/L (136-145)
[2017-10-27] MEDS: Heparin Central Flush 100 UNIT/ML 5 ML Vial IV.FLUSH SCH (10:04)
[2017-10-27] MEDS: Sod Chloride 0.9% Inj 1,000 ML IV.CONT SCH ×2 (12:16→22:16)
--- NOTE | 2017-10-27 15:52 | P.PNIM ---
Subjective Interval history: No dizziness or lightheadedness, denies any chest pain or shortness of breath. Physical Exam Vital signs: Vital Signs 10/26/17 16:00 10/26/17 16:58 10/26/17 20:00 Temperature 98.0 F 98.1 F Pulse Rate 85 76 Respiratory Rate 18 20 12 Blood Pressure 158/94 H 95/66 L Pulse Oximetry 95 94 L 10/27/17 00:00 10/27/17 05:48 10/27/17 08:00 Temperature 98.4 F 98.2 F 98.4 F Pulse Rate 86 88 84 Respiratory Rate 20 20 18 Blood Pressure 142/83 H 142/80 H 144/89 H Pulse Oximetry 96 94 L 95 10/27/17 11:00 10/27/17 12:00 Temperature 97.8 F Pulse Rate 87 Respiratory Rate 18 Blood Pressure 131/74 Pulse Oximetry 95 94 L Intake & Output 10/26/17 10/27/17 10/27/17 18:59 06:59 18:59 Intake Total 1240 / 1240 1000 / 1000 Output Total 2100 / 2100 Balance -860 / -860 1000 / 1000 Intake: IV 1000 / 1000 1000 / 1000 NS Inj 1,000 ML @ 84 mls/hr IV. 1000 / 1000 1000 / 1000 CONT .[id number] [facility] Rx#:[id number] Oral 240 / 240 Output: Urine 2100 / 2100 Other: Date of Last Bowel Movement 10/25/17 10/25/17 Narrative: GENERAL: Nondistressed. SKIN: Warm and dry. Large dressing throughout torso and lateral thigh, CDI. CARDIOVASCULAR: Regular rate and rhythm. No murmur appreciated. RESPIRATORY: No accessory muscle use. Clear to auscultation. Breath sounds equal bilaterally. GASTROINTESTINAL: Abdomen soft, non-tender, nondistended. Normoactive bowel sounds x4. PEG in place, CDI. MUSCULOSKELETAL: No obvious deformities. Extremities without clubbing, cyanosis , or edema. NEUROLOGICAL: Awake and alert. No obvious cranial nerve deficits. Motor grossly within normal limits. Moving all extremities spontaneously. - Urinary Catheter Management Indwelling Urethral Catheter Cath placed during this visit: yes Reason for continuing: Acute urinary retention Insertion date: 10/11/17 Results - Labs CBC & Chem 7: 10/24/17 05:55 10/27/17 08:20 Laboratory Results - last 24 hr 10/27/17 08:20 Sodium 124 L* Potassium 4.0 Chloride 88 L Carbon Dioxide 27.9 Anion Gap 8 BUN 11 Creatinine 0.40 L Estimated GFR Greater than 89 Random Glucose 101 Calcium 9.1 - Procedures s/p debridement; s/p split thickness skin grafting 10/12 per plastic surgery. right foot digital amputation /3rd/4th and fifth. Assessment and Plan - Assessment (1) Gangrene of toe of right foot Code(s): I96 - Gangrene, not elsewhere classified Status: Acute (2) Open wound of trunk Status: Acute - Plan Necrotizing fasciitis -s/p debridement; s/p split thickness skin grafting 10/12 per plastic surgery , wound VAC removed. Finish course of antibiotics per infectious disease. Continue wound dressings. Keep Terrazas catheter in to prevent soiling of wound with urine. Anemia -s/p PRBC transfusion; now with improved H/H. On PO iron supplementation Gangrene of the right foot- podiatry consult appreciated - s/p right foot digital amputation 04/29/06/29. -continue with pain control -podiatry follow-up appreciated; f/u as outpatient. C-diff colitis: diagnosed 10/20 -started on oral vanco 125mg po qid [id number] Respiratory -Tracheostomy in place for prior correction ventilation. breathing well today -Continue O2 supplementation as needed, tracheostomy management -Continue PRN nebulizers -taper down prednisone, on 5mg daily Hypothyroidism -Continue home Levothyroxine moderate malnutrition -PEG in place. had modified barium swallow- ST following and recommended puree diet. -Will continue tube feeds at night with pureed diet during the day Hyponatremia-increase normal saline, recheck BMP tomorrow GI PPX -Will continue with pepcid. PT consulted DVT PPX-SCD's. Will defer chemical prophylaxis due to downtrending Hgb and recent need for transfusion Discharge Planning: Patient too complicated for SNF, consulted Dr. Marshall for rehab management. Discharge once accepted by [facility] and Na better.
[2017-10-27] MEDS: Calcium/Vitamin D 250/125 MG Tablet PO SCH (17:16)
--- NOTE | 2017-10-27 19:27 | P.CONREH ---
History of Present Illness Service: Physical medicine and rehabilitation Consult date: 10/27/17 Reason for Consult: Comprehensive rehabilitation evaluation Primary Care Provider: No Primary Care Physician Family Provider: Lamar Ortiz MD History of Present Illness: Nina Eldridge is a 62-year-old [id number] female admitted to [facility] 10/11/17 from [facility] for skin grafting. Patient was initially hospitalized 07/22/17 with right flank and abdominal pain. She was found to have sepsis and required multiple skin debridements and VAC placement. She was subsequently discharged to [facility] 08/25/17. On 10/12/17 she underwent split-thickness skin graft to the right torso 41 x 15 cm. Her course has been complicated by dry gangrene of the right foot on 10/18/17 she underwent right foot amputation of digits 2/3/4/5. She currently has PEG in place and is receiving tube feedings at night with pured diet during the day. Calorie count is in process. She is noted to be unable to tolerate pharmacologic DVT prophylaxis due to decreased hemoglobin. Most recent hemoglobin and hematocrit 9.7/28.7. Trach was placed 08/09/17 and is currently in place and capping is in process. Prednisone is being tapered. Review of Systems other (Limited due to cognition) Eyes: Denies double vision Ears, Nose, Mouth, and Throat: Denies sore throat Cardiovascular: Denies chest pain Gastrointestinal: Reports constipation, Denies abdominal pain Genitourinary: Reports urinary incontinence (Terrazas in place) Musculoskeletal: Reports body aches, Reports other (Pain in the right thigh at the site of graft donor site) Neurologic: Reports other (Generalized weakness) [facility] - History History Provided By: Patient, Medical Record - Medical History Medical History: Medical History (Last Updated 10/27/17 @ 19:34 by Do Espinoza MD) Developmental delay - Tobacco History Second Hand Smoke Exposure: No Smoking Status: Never smoker - Alcohol History How Often Do You Have a Drink Containing Alcohol: Never - Substance Use History Substance History: No History of Abuse - Travel History History of Recent Travel: No Recent Travel in the [facility] Within the Last 8 Weeks: No Recent Travel Out of the Country Within the Last 8 Weeks: No Medications and Allergies Active Medications: Active Medications Acetaminophen (Tylenol) 650 mg PO Q6H PRN PRN Reason: FEVER >101F Albuterol (Albuterol Neb (Prn)) 2.5 mg NEB Q2HR NEB PRN PRN Reason: SHORTNESS OF BREATH/WHEEZING Last Admin: 10/18/17 21:54 Dose: 2.5 mg Ascorbic Acid (Vitamin C) 500 mg NG/OG HS [facility] Last Admin: 10/26/17 21:48 Dose: 500 mg Bisacodyl (Dulcolax Supp) 10 mg RECTAL DAILY PRN PRN Reason: SEVERE CONSITIPATION Calcium/Vitamin D (Oscal With D 250/125 Mg) 2 tab PO QPM [facility] Last Admin: 10/27/17 17:16 Dose: 2 tab Famotidine (Pepcid) 20 mg G-TUBE BID [facility] Last Admin: 10/27/17 09:44 Dose: 20 mg Fentanyl (Duragesic 25 Mcg Patch.72hr) 1 patch T-DERMAL Q3D [facility] Last Admin: 10/26/17 17:02 Dose: 1 patch Furosemide (Lasix) 20 mg PO DAILY [facility] Last Admin: 10/27/17 09:44 Dose: 20 mg Heparin Sodium (Porcine) (Heparin Central Flush) 0 unit IV.FLUSH PRN PRN PRN Reason: Flush PICC Line Last Admin: 10/11/17 23:31 Dose: 200 unit Heparin Sodium (Porcine) (Heparin Central Flush) 0 unit IV.FLUSH DAILY [facility] Last Admin: 10/27/17 10:04 Dose: Not Given Sodium Chloride (Ns Inj) 1,000 mls @ 100 mls/hr IV.CONT .Q10H [facility] Last Admin: 10/27/17 12:16 Dose: 100 mls/hr Lactulose (Lactulose Liq) 30 ml PO DAILY PRN PRN Reason: SEVERE CONSITIPATION Levothyroxine Sodium (Synthroid) 125 mcg PO DAILY@0600 [facility] Last Admin: 10/27/17 06:01 Dose: 125 mcg Morphine Sulfate (Morphine Inj) 2 mg IV.PUSH Q2H PRN PRN Reason: PAIN SCALE 6 TO 10 Last Admin: 10/14/17 04:27 Dose: 2 mg Morphine Sulfate (Morphine Inj) 3 mg IV.PUSH Q4H PRN PRN Reason: BREAKTHROUGH PAIN Last Admin: 10/19/17 15:14 Dose: 3 mg Ondansetron HCl (Zofran Liq) 4 mg PO Q6H PRN PRN Reason: NAUSEA OR VOMITING Last Admin: 10/27/17 04:01 Dose: 4 mg Oxycodone/Acetaminophen (Percocet 5/325 Mg) 1 tab PO Q4H PRN PRN Reason: PAIN SCALE 1 TO 5 Last Admin: 10/18/17 10:52 Dose: 1 tab Oxycodone/Acetaminophen (Percocet 5/325 Mg) 2 tab PO Q4H PRN PRN Reason: PAIN SCALE 6 TO 10 Last Admin: 10/27/17 17:12 Dose: 2 tab Patch Removal (Remove Old Patch) 1 each T-DERMAL Q3D [facility] Last Admin: 10/26/17 17:03 Dose: 1 each Prednisone (Deltasone Liq) 5 mg PO DAILY [facility] Last Admin: 10/27/17 09:44 Dose: 5 mg Prochlorperazine (Compazine Supp) 25 mg RECTAL Q12HR PRN PRN Reason: NAUSEA OR VOMITING Senna/Docusate Sodium (Natalie-Colace) 1 tab PO BID [facility] Last Admin: 10/27/17 09:44 Dose: 1 tab Sennosides (Senokot) 17.2 mg PO Q12H PRN PRN Reason: Moderate Constipation Sodium Chloride (Ns Flush) 2 ml IV.FLUSH BID [facility] Last Admin: 10/27/17 10:05 Dose: 2 ml Sodium Chloride (Ns Flush) 2 ml IV.FLUSH PRN PRN PRN Reason: FLUSH AFTER USING IV ACCESS Last Admin: 10/11/17 08:33 Dose: 2 ml Sodium Chloride (Ns Flush) 0 ml IV.FLUSH DAILY [facility] Last Admin: 10/27/17 10:05 Dose: Not Given Sodium Chloride (Ns Flush) 0 ml IV.FLUSH PRN PRN PRN Reason: FLUSH AFTER USING IV ACCESS Sodium Chloride (Ns Flush) 0 ml IV.FLUSH PRN PRN PRN Reason: Flush After Blood Draws Vancomycin HCl (Vancomycin Po) 125 mg PO QID [facility] Last Admin: 10/27/17 18:00 Dose: 125 mg Zinc Sulfate (Zinc-220) 220 mg PO DAILY [facility] Last Admin: 10/27/17 09:44 Dose: 220 mg Allergies Allergy/AdvReac Type Severity Reaction Status Date / Time No Known Allergies Allergy Unknown Uncoded 07/22/17 19:30 Home Medications Medication Instructions Recorded Confirmed Type Calcium 500 With D 10/11/17 10/11/17 History Cardizem See Label Instructions .ROUTE 10/11/17 10/11/17 History .COMPLEX MDD 60mg ascorbic acid (vitamin C) 10/11/17 History fentanyl 10/11/17 History furosemide [Lasix] 20 mg PO DAILY 10/11/17 10/11/17 History guaifenesin 10/11/17 History levothyroxine [Synthroid] 125 mcg PO DAILY 10/11/17 10/11/17 History pantoprazole [Protonix] 40 mg PO DAILY 10/11/17 10/11/17 History sodium chloride 10/11/17 History zinc sulfate 220 mg PO DAILY 10/11/17 10/11/17 History Exam - Physical Examination Vital Signs / I&O: Vital Signs 10/26/17 20:00 10/27/17 00:00 10/27/17 05:48 Temperature 98.1 F 98.4 F 98.2 F Pulse Rate 76 86 88 Respiratory Rate 12 20 20 Blood Pressure 95/66 L 142/83 H 142/80 H Pulse Oximetry 94 L 96 94 L 10/27/17 08:00 10/27/17 11:00 10/27/17 12:00 Temperature 98.4 F 97.8 F Pulse Rate 84 87 Respiratory Rate 18 18 Blood Pressure 144/89 H 131/74 Pulse Oximetry 95 95 94 L 10/27/17 17:18 Temperature 97.9 F Pulse Rate 72 Respiratory Rate 18 Blood Pressure 146/93 H Pulse Oximetry 95 Intake & Output 10/27/17 10/27/17 10/28/17 06:59 18:59 06:59 Intake Total 1000 / 1000 120 / 120 Output Total 1400 / 1400 Balance 1000 / 1000 -1280 / -1280 Intake: IV 1000 / 1000 NS Inj 1,000 ML @ 84 mls/hr IV. 1000 / 1000 CONT .[id number] [facility] Rx#:[id number] Oral 120 / 120 Output: Urine 1400 / 1400 Other: Date of Last Bowel Movement 10/25/17 # Bowel Movements 1 Intake & Output 10/25/17 10/26/17 10/27/17 10/28/17 06:59 06:59 06:59 06:59 Intake Total 2797 / 2797 2537 / 2537 2240 / 2240 120 / 120 Output Total 2500 / 2500 7711 / 7711 2100 / 2100 1400 / 1400 Balance 297 / 297 -5174 / -5174 140 / 140 -1280 / -1280 Weight 60.2 kg 60.2 kg General: Mild distress (Patient appears to be uncomfortable due to right thigh pain) Respiratory: Lungs CTA, Non-labored respirations, BS equal (Decreased breath sounds in the bases bilaterally), Other (Trach in place and capped) Gastrointestinal: Positive bowel sounds, Non-distended, Non-tender, Other (PEG in place) Date of Last Bowel Movement: 10/25/17 Cardiovascular: Normal rate, Regular rhythm Skin: Other Psychiatric: Cooperative ( right torso and right anterior thigh dressings in place and dry) - Neurologic Orientation: oriented to: Self, Situation Neurologic: Pupils (PERRLA), Other (Limited testing of motor strength; right foot dressing is in place; follows commands to move both upper extremities) Results - Labs CBC & Chem 7: 10/24/17 05:55 10/30/17 05:49 Labs: Laboratory Results - last 24 hr 10/27/17 08:20 Sodium 124 L* Potassium 4.0 Chloride 88 L Carbon Dioxide 27.9 Anion Gap 8 BUN 11 Creatinine 0.40 L Estimated GFR Greater than 89 Random Glucose 101 Calcium 9.1 Assessment and Plan (1) Open wound of trunk Status: Acute (2) Gangrene of toe of right foot Status: Acute Code(s): I96 - Gangrene, not elsewhere classified - Plan 1. Patient is progressing with mobility and ADLs. Patient is now moderate assistance for transfers and standing 20 seconds with minimal assistance with physical therapy. Occupational Therapy is addressing ADLs and minimal assistance with grooming and maximal assistance with upper body dressing. Continue to mobilize and address independence with ADLs. Nursing to mobilize out of bed to chair as tolerated 2. Patient will benefit from ongoing inpatient rehabilitation. Medical issues to address include: -Hyponatremia: Sodium 127 -Anemia: Hemoglobin and hematocrit 9.7/28.7 -C. difficile: Continuation of p.o. vancomycin and monitoring electrolytes and hydration -Tracheostomy: Monitoring prednisone taper. Currently undergoing capping trials working toward decannulation -Daily dressing changes and monitoring for infection including skin graft donor site and grafted wound as well as right foot amputation site -Monitoring of right lower extremity vascular status -PEG: Currently receiving tube feedings at at bedtime with pured diet. Calorie count is in place. Will need ongoing management of tube feedings working toward p.o. intake and eventual removal of PEG -Patient is currently unable to receive pharmacologic DVT prophylaxis due to decreased hemoglobin. Will need monitoring for potential development of DVT and early mobilization for prevention Will follow. Thank you for this consult.
[2017-10-27] MEDS: Ascorbic Acid 500 MG Tablet NG/OG SCH (22:03)
[2017-10-28] MEDS: Levothyroxine 125 MCG Tablet PO SCH (06:02)
[2017-10-28] MEDS: Sod Chloride 0.9% Inj 1,000 ML IV.CONT SCH ×2 (09:24→20:43)
[2017-10-28] MEDS: Heparin Central Flush 100 UNIT/ML 5 ML Vial IV.FLUSH SCH (09:33)
[2017-10-28] MEDS: predniSONE Liq 5 MG/5 ML UDC PO SCH (09:34)
[2017-10-28] MEDS: Famotidine 20 MG Tablet G-TUBE SCH (09:34)
[2017-10-28] MEDS: Senna/Docusate Sodium 8.6/50 MG Tablet PO SCH ×2 (09:34→20:44)
[2017-10-28] MEDS: Furosemide 20 MG Tablet PO SCH (09:34)
[2017-10-28 10:07] LABS: Anion Gap 11 meq/L (5-15); Blood Urea Nitrogen 6 mg/dL (7-18); Calcium 9.3 mg/dL (8.5-10.1); Carbon Dioxide 25.5 meq/L (21.0-32.0); Chloride 86 meq/L (98-107); Glomerular Filtration Rate Greater Than 89 mL/min (>89); Glucose,Random 74 mg/dL (74-106); Potassium 3.6 meq/L (3.5-5.1)
[2017-10-28 10:15] LABS: Sodium 122 meq/L (136-145)
--- NOTE | 2017-10-28 10:27 | P.PN ---
Subjective Interval history: awake and alert no complains of pain states she vomited this am- clears patient gets TF at night having some loose stools Physical Exam Vital signs: Vital Signs 10/27/17 11:00 10/27/17 12:00 10/27/17 17:18 Temperature 97.8 F 97.9 F Pulse Rate 87 72 Respiratory Rate 18 18 Blood Pressure 131/74 146/93 H Pulse Oximetry 95 94 L 95 10/27/17 20:00 10/28/17 00:00 10/28/17 04:00 Temperature 98.2 F 97.5 F L 97.8 F Pulse Rate 79 86 92 H Respiratory Rate 20 20 20 Blood Pressure 140/94 H 168/86 H 161/86 H Pulse Oximetry 96 94 L 93 L 10/28/17 08:00 Temperature 97.9 F Pulse Rate 82 Respiratory Rate 16 Blood Pressure 147/80 H Pulse Oximetry 96 Intake & Output 10/27/17 10/28/17 10/28/17 18:59 06:59 18:59 Intake Total 120 / 120 1120 / 1120 1000 / 1000 Output Total 1400 / 1400 2800 / 2800 Balance -1280 / -1280 -1680 / -1680 1000 / 1000 Weight 60.9 kg Intake: IV 1000 / 1000 1000 / 1000 NS Inj 1,000 ML @ 100 mls/hr IV 1000 / 1000 1000 / 1000 .CONT .Q10H [facility] Rx#:[id number] Oral 120 / 120 120 / 120 Output: Urine 1400 / 1400 2800 / 2800 Other: Date of Last Bowel Movement 10/25/17 10/25/17 # Bowel Movements 1 0 Narrative: awake and alert, no acute distress anicteric Large dressing throughout torso and right lateral thigh, right groin area-dry Regular rate and rhythm. No murmur appreciated. no rales, no wheezes, Abdomen soft, non-tender, nondistended. good bowel sounds, PEG in place MUSCULOSKELETAL: No obvious deformities. Extremities without clubbing, cyanosis , or edema. right foot elastic dressing in place NEUROLOGICAL: Awake and alert. No obvious cranial nerve deficits. Motor grossly within normal limits. Moving all extremities spontaneously. - Urinary Catheter Management Indwelling Urethral Catheter Cath placed during this visit: yes Reason for continuing: Acute urinary retention Insertion date: 10/11/17 Results - Labs CBC & Chem 7: 10/24/17 05:55 10/28/17 07:55 Laboratory Results - last 24 hr 10/28/17 07:55 Sodium 122 L* Potassium 3.6 Chloride 86 L Carbon Dioxide 25.5 Anion Gap 11 BUN 6 L Creatinine 0.37 L Estimated GFR Greater than 89 Random Glucose 74 Calcium 9.3 - Procedures s/p debridement; s/p split thickness skin grafting 10/12 per plastic surgery. right foot digital amputation // and fifth. Assessment and Plan - Assessment (1) Gangrene of toe of right foot Code(s): I96 - Gangrene, not elsewhere classified Status: Acute (2) Open wound of trunk Status: Acute - Plan 62 years old Necrotizing fasciitis -s/p debridement; s/p split thickness skin grafting 10/12 per plastic surgery , wound VAC removed. Finish course of antibiotics per infectious disease. - curretnly on meropenem Continue wound dressings. Keep Terrazas catheter in to prevent soiling of wound with urine. Anemia -s/p PRBC transfusion; now with improved H/H. On PO iron supplementation Gangrene of the right foot- podiatry consult appreciated - s/p right foot digital amputation 04/29/06/29. -continue with pain control -podiatry follow-up appreciated; f/u as outpatient. C-diff colitis: diagnosed 10/20 still with loose stools -started on oral vanco 125mg po qid [id number] Acute hYponatremia- from diarrhea and vomiting continue NS IVF - increase rate DC Lasix check abdominal films Respiratory -Tracheostomy in place for prior long-term ventilation. breathing well today -Continue O2 supplementation as needed, tracheostomy management -Continue PRN nebulizers -taper down prednisone, on 5mg daily Hypothyroidism -Continue home Levothyroxine moderate malnutrition -PEG in place. had modified barium swallow- ST following and recommended puree diet. -Will continue tube feeds at night with pureed diet during the day GI PPX -Will continue with pepcid. PT consulted DVT PPX-SCD's. Will defer chemical prophylaxis due to downtrending Hgb and recent need for transfusion Discharge Planning: Patient too complicated for SNF, consulted Dr. Marshall for rehab management. Discharge once accepted by [facility] and [facility].
--- NOTE | 2017-10-28 11:27 | XR ---
EXAM DATE: 10/28/2017 11:19 AM EDT AGE/SEX: 62 years / Female INDICATIONS: Nausea and vomiting CLINICAL DATA: This is the patient's subsequent encounter. Patient reports that signs and symptoms h ave been present for 3 months and indicates a pain score of Nonresponsive. MEDICAL/SURGICAL HISTORY: . Hypothyroidism. Sepsis with necrotizing fasciitis right hip/leg wit h wound vac . Tracheostomy placed. PEG tube September 2017 COMPARISON: [facility] [place], [place]. . FINDINGS: Single AP portable semiupright view of the abdomen demonstrates a gastric tubing overlying the stomac h bubble. Surgical clips overlie the right abdomen. There is a nonobstructive bowel gas pattern prese nt. The lung bases are clear. Osseous structures demonstrate degenerative change but are otherwise un remarkable. CONCLUSION: No evidence of bowel obstruction. No abnormalities identified within the lung bases. No visible free air. Electronically signed by: Yin Genao MD 10/28/2017 11:26 AM EDT
[2017-10-28] MEDS: Calcium/Vitamin D 250/125 MG Tablet PO SCH (18:19)
[2017-10-28] MEDS: Famotidine PF Inj 20 MG/2 ML Vial IV.PUSH SCH (20:43)
[2017-10-28] MEDS: Ascorbic Acid 500 MG Tablet NG/OG SCH (20:44)
[2017-10-29] MEDS: Sod Chloride 0.9% Inj 1,000 ML IV.CONT SCH ×2 (04:52→14:16)
[2017-10-29] MEDS: Levothyroxine 125 MCG Tablet PO SCH (05:02)
[2017-10-29] MEDS: Famotidine PF Inj 20 MG/2 ML Vial IV.PUSH SCH ×2 (08:33→20:16)
[2017-10-29] MEDS: predniSONE Liq 5 MG/5 ML UDC PO SCH (08:34)
[2017-10-29] MEDS: Senna/Docusate Sodium 8.6/50 MG Tablet PO SCH ×2 (08:34→20:17)
[2017-10-29] MEDS: Heparin Central Flush 100 UNIT/ML 5 ML Vial IV.FLUSH SCH (08:35)
[2017-10-29 10:19] LABS: Anion Gap 10 meq/L (5-15); Blood Urea Nitrogen 9 mg/dL (7-18); Calcium 9.4 mg/dL (8.5-10.1); Carbon Dioxide 24.6 meq/L (21.0-32.0); Chloride 89 meq/L (98-107); Glomerular Filtration Rate Greater Than 89 mL/min (>89); Glucose,Random 83 mg/dL (74-106); Potassium 3.9 meq/L (3.5-5.1)
[2017-10-29 10:22] LABS: Sodium 124 meq/L (136-145)
[2017-10-29] MEDS: Morphine Inj 4 MG/ML Vial IV.PUSH PRN ×2 (13:07→20:19)
--- NOTE | 2017-10-29 14:37 | P.PN ---
Subjective Interval history: awke and alert, nofurtherpisodes of nausea or vomiting tolerating po well- by mouth on TF for supolemental feeding to meet nutrtional requiremnt Physical Exam Vital signs: Vital Signs 10/28/17 16:00 10/28/17 20:00 10/29/17 00:00 Temperature 98.0 F 98.6 F 97.8 F Pulse Rate 74 74 83 Respiratory Rate 16 19 17 Blood Pressure 133/77 153/84 H 154/92 H Pulse Oximetry 96 95 97 10/29/17 04:00 10/29/17 08:00 10/29/17 12:00 Temperature 97.9 F 98 F 97.8 F Pulse Rate 82 87 86 Respiratory Rate 17 18 18 Blood Pressure 128/87 192/96 H 153/72 H Pulse Oximetry 96 93 L 95 Intake & Output 10/28/17 10/29/17 10/29/17 18:59 06:59 18:59 Intake Total 1280 / 1280 2000 / 2000 1000 / 1000 Output Total 1300 / 1300 Balance 1280 / 1280 700 / 700 1000 / 1000 Weight 58.9 kg Intake: IV 1000 / 1000 2000 / 2000 1000 / 1000 NS Inj 1,000 ML @ 125 mls/hr IV 1000 / 1000 2000 / 2000 1000 / 1000 .CONT .Q8H [facility] Rx#:[id number] Oral 280 / 280 Output: Urine Amount (Catheter) 1300 / 1300 Indwelling Urethral Catheter 1300 / 1300 Other: # Voids 2,400 Date of Last Bowel Movement 10/25/17 10/25/17 # Bowel Movements 0 1 # Incontinent Bowel Movements 1 Narrative: awake and alert, no acute distress anicteric neck- trachestomy tube in place- capped- good sats at rooma ir Large dressing throughout torso and right lateral thigh, right groin area-dry Regular rate and rhythm. No murmur appreciated. no rales, no wheezes, Abdomen soft, non-tender, nondistended. good bowel sounds, PEG in place MUSCULOSKELETAL: No obvious deformities. Extremities without clubbing, cyanosis , or edema. right foot elastic dressing in place NEUROLOGICAL: Awake and alert. No obvious cranial nerve deficits. Motor grossly within normal limits. Moving all extremities spontaneously. - Urinary Catheter Management Indwelling Urethral Catheter Cath placed during this visit: yes Reason for continuing: Acute urinary retention Insertion date: 10/11/17 Results - Labs CBC & Chem 7: 10/24/17 05:55 10/29/17 09:38 Laboratory Results - last 24 hr 10/29/17 09:38 Sodium 124 L* Potassium 3.9 Chloride 89 L Carbon Dioxide 24.6 Anion Gap 10 BUN 9 Creatinine 0.42 L Estimated GFR Greater than 89 Random Glucose 83 Calcium 9.4 - Procedures s/p debridement; s/p split thickness skin grafting 10/12 per plastic surgery. right foot digital amputation // and fifth. Assessment and Plan - Assessment (1) Gangrene of toe of right foot Code(s): I96 - Gangrene, not elsewhere classified Status: Acute (2) Open wound of trunk Status: Acute - Plan 62 years old Necrotizing fasciitis -s/p debridement; s/p split thickness skin grafting 10/12 per plastic surgery , wound VAC removed. Finish course of antibiotics per infectious disease. - curretnly on meropenem Continue wound dressings. Keep Terrazas catheter in to prevent soiling of wound with urine. Anemia -s/p PRBC transfusion; now with improved H/H. On PO iron supplementation Gangrene of the right foot- podiatry consult appreciated - s/p right foot digital amputation 04/29/06/29. -continue with pain control -podiatry follow-up appreciated; f/u as outpatient. C-diff colitis: diagnosed 10/20 still with loose stools- less since yesterday per patient -started on oral vanco 125mg po qid [id number] Acute hYponatremia- from diarrhea and vomiting- no further pidoses decrease IVF rate , TF restarted DC Lasix. ff BMP checked abdominal films - unremarkable Respiratory -Tracheostomy- capped in place for prior fdc ventilation. breathing well -Continue O2 supplementation as needed, tracheostomy management -Continue PRN nebulizers -taper down prednisone, on 5mg daily Hypothyroidism -Continue home Levothyroxine moderate malnutrition -PEG in place. had modified barium swallow- ST following and recommended puree diet. -Will continue tube feeds at night with pureed diet during the day GI PPX -Will continue with pepcid. PT consulted DVT PPX-SCD's. Will defer chemical prophylaxis due to downtrending Hgb and recent need for transfusion Discharge Planning: Patient too complicated for SNF, consulted Dr. aMrshall for rehab management. Discharge once accepted by [facility] and [facility].
[2017-10-29] MEDS: Calcium/Vitamin D 250/125 MG Tablet PO SCH (17:51)
[2017-10-29] MEDS: Ascorbic Acid 500 MG Tablet NG/OG SCH (20:17)
[2017-10-30] MEDS: Morphine Inj 4 MG/ML Vial IV.PUSH PRN (02:27)
[2017-10-30] MEDS: Levothyroxine 125 MCG Tablet PO SCH (06:16)
[2017-10-30 06:48] LABS: Anion Gap 9 meq/L (5-15); Blood Urea Nitrogen 7 mg/dL (7-18); Calcium 9.5 mg/dL (8.5-10.1); Carbon Dioxide 26.4 meq/L (21.0-32.0); Chloride 90 meq/L (98-107); Glomerular Filtration Rate Greater Than 89 mL/min (>89); Glucose,Random 86 mg/dL (74-106); Potassium 3.7 meq/L (3.5-5.1); Sodium 125 meq/L (136-145)
[2017-10-30] MEDS: Sod Chloride 0.9% Inj 1,000 ML IV.CONT SCH ×2 (09:28→13:15)
[2017-10-30] MEDS: Senna/Docusate Sodium 8.6/50 MG Tablet PO SCH ×2 (09:30→21:22)
[2017-10-30] MEDS: predniSONE Liq 5 MG/5 ML UDC PO SCH (09:31)
[2017-10-30] MEDS: Heparin Central Flush 100 UNIT/ML 5 ML Vial IV.FLUSH SCH (09:32)
[2017-10-30] MEDS: Famotidine PF Inj 20 MG/2 ML Vial IV.PUSH SCH ×2 (09:33→21:22)
--- NOTE | 2017-10-30 13:22 | P.PN ---
Subjective Interval history: PEG tube site- leaking- tube feedings coming out of the peg tube site/incision complaining of abdominaldiscomfort + stools/flkatus eating/feeding herself on TF to meet nutrtional requirement awake and alert Physical Exam Vital signs: Vital Signs 10/29/17 16:00 10/29/17 20:00 10/29/17 23:29 Temperature 97.9 F 98 F Pulse Rate 79 75 Respiratory Rate 18 17 Blood Pressure 143/69 H 133/80 Pulse Oximetry 96 97 98 10/29/17 23:30 10/30/17 03:29 10/30/17 04:00 Temperature 97.6 F 98.4 F Pulse Rate 76 79 Respiratory Rate 15 16 19 Blood Pressure 144/59 H 162/81 H Pulse Oximetry 95 95 10/30/17 08:00 10/30/17 10:23 Temperature 98.0 F Pulse Rate 79 Respiratory Rate 18 Blood Pressure 141/71 H Pulse Oximetry 94 L 95 Intake & Output 10/29/17 10/30/17 10/30/17 18:59 06:59 18:59 Intake Total 1480 / 1480 Output Total 1600 / 1600 1050 / 1050 Balance -120 / -120 -1050 / -1050 Weight 57.9 kg Intake: IV 1000 / 1000 NS Inj 1,000 ML @ 125 mls/hr IV 1000 / 1000 .CONT .Q8H [facility] Rx#:[id number] Oral 480 / 480 Output: Urine Amount (Catheter) 1600 / 1600 1050 / 1050 Indwelling Urethral Catheter 1600 / 1600 1050 / 1050 Other: Date of Last Bowel Movement 10/25/17 10/29/17 10/25/17 # Bowel Movements 2 # Incontinent Bowel Movements 2 Narrative: awake and alert, no acute distress anicteric neck- trachestomy tube in place- capped- good sats at room air Large dressing throughout torso and right lateral thigh, right groin area-dry Regular rate and rhythm. No murmur appreciated. no rales, no wheezes, Abdomen soft, slightly distended, + mild tenderness on deep palpation, hyperactive bowel sounds, PEG site-opening- have some TF particles on the opening, MUSCULOSKELETAL: No obvious deformities. Extremities without clubbing, cyanosis , or edema. right foot elastic dressing in place NEUROLOGICAL: Awake and alert. No obvious cranial nerve deficits. Motor grossly within normal limits. Moving all extremities spontaneously. - Urinary Catheter Management Indwelling Urethral Catheter Cath placed during this visit: yes Reason for continuing: Acute urinary retention Insertion date: 10/11/17 Results - Labs CBC & Chem 7: 10/24/17 05:55 10/30/17 05:49 Laboratory Results - last 24 hr 10/30/17 05:49 Sodium 125 L Potassium 3.7 Chloride 90 L Carbon Dioxide 26.4 Anion Gap 9 BUN 7 Creatinine 0.45 L Estimated GFR Greater than 89 Random Glucose 86 Calcium 9.5 - Imaging Impressions Abdomen X-Ray 10/28/17 10:48 CONCLUSION: No evidence of bowel obstruction. No abnormalities identified within the lung bases. No visible free air. - Procedures s/p debridement; s/p split thickness skin grafting 10/12 per plastic surgery. right foot digital amputation 04/29/ and fifth. Assessment and Plan - Assessment (1) Gangrene of toe of right foot Code(s): I96 - Gangrene, not elsewhere classified Status: Acute (2) Open wound of trunk Status: Acute - Plan 62 years old Necrotizing fasciitis -s/p debridement; s/p split thickness skin grafting 10/12 per plastic surgery , wound VAC removed. Finish course of antibiotics per infectious disease. - curretnly on meropenem Continue wound dressings. Keep Terrazas catheter in to prevent soiling of wound with urine. Anemia -s/p PRBC transfusion; now with improved H/H. On PO iron supplementation Gangrene of the right foot- podiatry consult appreciated - s/p right foot digital amputation 04/29/06/29. -continue with pain control -podiatry follow-up appreciated; f/u as outpatient. C-diff colitis: diagnosed 10/20 - stool frequency less- less since yesterday per patient -started on oral vanco 125mg po qid [id number]- started 10/21 ABdominal pain r/o peritonitis TF particles coming out of PEG wound - HOld TF. get CBC - GI consult - recom- for abdominal pain,. TF coming out of PEG site wound hYponatremia- patient awake and alert from diarrhea and vomiting- no further pidoses -Na stabilizing gradually trending up. 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 breathing well -Continue O2 supplementation as needed, tracheostomy management -Continue PRN nebulizers -taper down prednisone, on 5mg daily Hypothyroidism -Continue home Levothyroxine moderate malnutrition -PEG in place. had modified barium swallow- ST following and recommended puree diet. -Will hold tube feeds at night- with suspicious leakage - TF started to meet nutrtional requirement - pureed diet during the day GI PPX -Will continue with pepcid. PT consulted DVT PPX-SCD's. Will defer chemical prophylaxis due to downtrending Hgb and recent need for transfusion Discharge Planning: Patient too complicated for SNF, consulted Dr. Marshall for rehab management. Discharge once accepted by CIR and Na better.
[2017-10-30] MEDS ORDERED: Morphine Inj 4 MG/ML Vial IV.PUSH PRN (13:40)
[2017-10-30 14:39] LABS: Baso # (Auto) 0.1 th/mm3 (0.0-0.2); Baso % (Auto) 0.5 % (0.0-2.0); Eos # (Auto) 0.1 th/mm3 (0.0-0.4); Eos % (Auto) 0.8 % (0.0-4.0); Hematocrit 33.2 % (35.0-46.0); Lymph # (Auto) 0.8 th/mm3 (1.0-4.8); Lymph % (Auto) 7.2 % (9.0-44.0); Mean Corpuscular HGB Conc 33.1 % (32.0-36.0); Mean Corpuscular Hemoglobin 27.2 pg (27.0-34.0); Mean Platelet Volume 5.3 fL (7.0-11.0); Mono # (Auto) 0.6 th/mm3 (0.0-0.9); Mono % (Auto) 5.4 % (0.0-8.0); Neut # (Auto) 10.1 th/mm3 (1.8-7.7); Neut % (Auto) 86.1 % (16.0-70.0); Platelet Count 332 th/mm3 (150-450); Red Blood Count 4.05 mil/mm3 (4.00-5.30); Red Cell Distribution Width 15.5 % (11.6-17.2); White Blood Count 11.8 th/mm3 (4.0-11.0)
--- NOTE | 2017-10-30 14:45 | P.DIET ---
Nutritional Evaluation Type of nutrition evaluation: follow-up Nutrition consult regarding: Tube Feeding Subjective Subjective Comments: Pt seen during lunch. She was picking at her jello, but everything else was untouched. Enlive was open, but pt stated she may only drink 50% as they are "not her favorite". Acceptable to trying Mighty Shakes TID, but not until tomorrow. C/o N/V but thinks it's r/t medications. Prior to leaking from PEG site, pt states she was tolerating TFings well. Objective - Diagnosis Full thickness Skin /Graft to Right Torso wound - Objective % IBW: 106 (DCK=978#) Body Weight Used for Calculations: Actual (50.4kg) Energy Needs - Lower Range (kCal/kg): 35 Energy Needs - Upper Range (kCal/kg): 40 Lower Limit kCal/kg (kCals): 1,764 Upper Limit kCal/kg (kCals): 2,016 Lower Limit Protein Factor (Grams per Kg): 1.2 Upper Limit Protein Factor (Grams per Kg): 1.5 Lower Protein Needs (Protein): 60 Upper Protein Needs (Protein): 76 Fluid Factor (ml/kg): 30 Estimated Fluid Needs (ml): 1,512 Dietitian Reviewed in Medical Record: Current diet, Curent medications, Intake & Output, Labs, Medical history, Tube feeding Diet Order: TF w/ Tray, Pureed Oral Diet Intake Amount: Poor <50% Speech Therapy Recommendations: Yes (Pureed diet) Objective Comments: Meds: Vitamin C, Oscal D, Pepcid, Prednisone, Zinc Sulfate, Synthroid, Zofran s/p 2, 3, 4, & 5 R digit amputation Skin graft 10/12, VAC removed 10/19LBM 10/19 Has trach, +MRSA LBM 10/29, c.diff+ Feeding - Current PO Supplement Current Supplement: Mighty Shake Current Frequency of Supplement: Three times a day Current kCals Provided by Supplement: 300 Current Protein Provided by Supplement: 9 Assessment Assessment: Pt remains on Pureed diet per ST recs. TFings are being held 2/2 leakage around PEG tube site. Pt was tolerating previous TFs w/ no complaints. Pt is not eating well. She was seen during lunch and refused her pureed meat & pureed vegetables, picked at her jello, and said she would save her mashed potatoes and Enlive. Pt requires additional TFings to meet her daily nutritional requirements. She was agreeable to try Mighty Shakes TID, but requests they be started tomorrow. D/C Enlive as pt does not like these. Pt remains at high nutritional risk 2/2 her medical dx, poor PO intake, and the need for supplemental TFings. When able, recommend restarting Vital 1.5 @ 75mls/hr x 12hrs (5pm-5am) to provide 1350kcals, 61g PRO, and 688mls fluid. Dietitian following. Recommendations: 1. Restart Vital 1.5 @ 75mls/hr x 12hrs (5pm-5am) when able. 2. Mighty Shakes TID. 3. D/C Enlive since pt does not like these. Dietitian to Monitor: Lab values, Supplement acceptance, Intake & Output, Diet tolerance, Tube feeding tolerance, Weight change, PO Intake, Wound/skin status, Swallow recommendations, Medical course
--- NOTE | 2017-10-30 15:35 | P.CONGI ---
History of Present Illness Consult date: 10/30/17 Consult reason: ? Displaced PEG Chief complaint: FULL THICKNESS SKIN GRAFT TO RIGHT TORSO WOUND FRO History of Present Illness: This is a 62 yo F who was sent from [facility] to [place] for skin grafting. Pt with recent prolonged hospitalization for necrotizing fasciitis S/P multiple dbridements, who was discharged on mechanical ventilator with tracheostomy to [facility]. During her admission at [facility] pt had PEG tube placed via EGD by Dr. Arrieta on October 04 --> Mild antral gastritis, successful PEG placement, skin level 2.5 cm 20- Bolivian PEG. Pt was receiving TF on arrival to [place], however this was discontinued because the nurses noted drainage around PEG site that appeared to be TF material. Pt is also complaining of abdominal pain that began yesterday. Reports some nausea, denies vomiting. Seen by nutrition since admission, pts PO intake is inadequate they have recommended Vital 1.5 at a rate of 75 mL/hr x 12 hours with Mighty Shakes TID. <Tara Villatoro - Last Filed: 10/30/17 15:25> Review of Systems Gastrointestinal: Reports abdominal pain, Reports nausea, Denies vomiting <Tara Villatoro - Last Filed: 10/30/17 15:25> PMFSH - History History Provided By: Patient, Medical Record - Medical History Medical History: Medical History (Last Reviewed 10/30/17 @ 09:14 by Ashley Dior) Developmental delay - Tobacco History Second Hand Smoke Exposure: No Smoking Status: Never smoker - Alcohol History How Often Do You Have a Drink Containing Alcohol: Never - Substance Use History Substance History: No History of Abuse - Travel History History of Recent Travel: No Recent Travel in the [place] Within the Last 8 Weeks: No Recent Travel Out of the Country Within the Last 8 Weeks: No <Tara Villatoro - Last Filed: 10/30/17 15:25> - Medical History Medical History: Medical History (Last Reviewed 10/30/17 @ 09:14 by Ashley Dior) Developmental delay <Sheree Traore - Last Filed: 10/30/17 17:35> Medications and Allergies Active Medications: Active Medications Acetaminophen (Tylenol) 650 mg PO Q6H PRN PRN Reason: FEVER >101F Albuterol (Albuterol Neb (Prn)) 2.5 mg NEB Q2HR NEB PRN PRN Reason: SHORTNESS OF BREATH/WHEEZING Last Admin: 10/18/17 21:54 Dose: 2.5 mg Ascorbic Acid (Vitamin C) 500 mg NG/OG HS [facility] Last Admin: 10/29/17 20:17 Dose: 500 mg Bisacodyl (Dulcolax Supp) 10 mg RECTAL DAILY PRN PRN Reason: SEVERE CONSITIPATION Calcium/Vitamin D (Oscal With D 250/125 Mg) 2 tab PO QPM [facility] Last Admin: 10/29/17 17:51 Dose: 2 tab Famotidine (Pepcid Pf Inj) 20 mg IV.PUSH Q12HR [facility] Last Admin: 10/30/17 09:33 Dose: 20 mg Fentanyl (Duragesic 25 Mcg Patch.72hr) 1 patch T-DERMAL Q3D [facility] Last Admin: 10/29/17 15:50 Dose: 1 patch Heparin Sodium (Porcine) (Heparin Central Flush) 0 unit IV.FLUSH PRN PRN PRN Reason: Flush PICC Line Last Admin: 10/11/17 23:31 Dose: 200 unit Heparin Sodium (Porcine) (Heparin Central Flush) 0 unit IV.FLUSH DAILY [facility] Last Admin: 10/30/17 09:32 Dose: Not Given Sodium Chloride (Ns Inj) 1,000 mls @ 70 mls/hr IV.CONT .[id number] [facility] Last Admin: 10/30/17 13:15 Dose: 50 mls/hr Lactulose (Lactulose Liq) 30 ml PO DAILY PRN PRN Reason: SEVERE CONSITIPATION Levothyroxine Sodium (Synthroid) 125 mcg PO DAILY@0600 [facility] Last Admin: 10/30/17 06:16 Dose: 125 mcg Morphine Sulfate (Morphine Inj) 1 mg IV.PUSH Q4H PRN PRN Reason: PAIN SCALE 6 TO 10 Ondansetron HCl (Zofran Inj) 4 mg IV.PUSH Q6H PRN PRN Reason: NAUSEA OR VOMITING Last Admin: 10/30/17 09:55 Dose: 4 mg Oxycodone/Acetaminophen (Percocet 5/325 Mg) 1 tab PO Q4H PRN PRN Reason: PAIN SCALE 1 TO 5 Last Admin: 10/28/17 11:58 Dose: 1 tab Oxycodone/Acetaminophen (Percocet 5/325 Mg) 2 tab PO Q4H PRN PRN Reason: PAIN SCALE 6 TO 10 Last Admin: 10/30/17 09:33 Dose: 2 tab Patch Removal (Remove Old Patch) 1 each T-DERMAL Q3D [facility] Last Admin: 10/29/17 16:13 Dose: 1 each Prednisone (Deltasone Liq) 5 mg PO DAILY [facility] Last Admin: 10/30/17 09:31 Dose: 5 mg Prochlorperazine (Compazine Supp) 25 mg RECTAL Q12HR PRN PRN Reason: NAUSEA OR VOMITING Senna/Docusate Sodium (Natalie-Colace) 1 tab PO BID [facility] Last Admin: 10/30/17 09:30 Dose: Not Given Sennosides (Senokot) 17.2 mg PO Q12H PRN PRN Reason: Moderate Constipation Sodium Chloride (Ns Flush) 2 ml IV.FLUSH BID [facility] Last Admin: 10/30/17 09:32 Dose: Not Given Sodium Chloride (Ns Flush) 2 ml IV.FLUSH PRN PRN PRN Reason: FLUSH AFTER USING IV ACCESS Last Admin: 10/11/17 08:33 Dose: 2 ml Sodium Chloride (Ns Flush) 0 ml IV.FLUSH DAILY [facility] Last Admin: 10/30/17 09:32 Dose: Not Given Sodium Chloride (Ns Flush) 0 ml IV.FLUSH PRN PRN PRN Reason: FLUSH AFTER USING IV ACCESS Sodium Chloride (Ns Flush) 0 ml IV.FLUSH PRN PRN PRN Reason: Flush After Blood Draws Vancomycin HCl (Vancomycin Po) 125 mg PO QID [facility] Last Admin: 10/30/17 13:13 Dose: 125 mg Zinc Sulfate (Zinc-220) 220 mg PO DAILY [facility] Last Admin: 10/30/17 09:31 Dose: 220 mg <Tara Villatoro - Last Filed: 10/30/17 15:25> Active Medications: Active Medications Acetaminophen (Tylenol) 650 mg PO Q6H PRN PRN Reason: FEVER >101F Albuterol (Albuterol Neb (Prn)) 2.5 mg NEB Q2HR NEB PRN PRN Reason: SHORTNESS OF BREATH/WHEEZING Last Admin: 10/18/17 21:54 Dose: 2.5 mg Ascorbic Acid (Vitamin C) 500 mg NG/OG HS [facility] Last Admin: 10/29/17 20:17 Dose: 500 mg Bisacodyl (Dulcolax Supp) 10 mg RECTAL DAILY PRN PRN Reason: SEVERE CONSITIPATION Calcium/Vitamin D (Oscal With D 250/125 Mg) 2 tab PO QPM [facility] Last Admin: 10/29/17 17:51 Dose: 2 tab Famotidine (Pepcid Pf Inj) 20 mg IV.PUSH Q12HR [facility] Last Admin: 10/30/17 09:33 Dose: 20 mg Fentanyl (Duragesic 25 Mcg Patch.72hr) 1 patch T-DERMAL Q3D [facility] Last Admin: 10/29/17 15:50 Dose: 1 patch Heparin Sodium (Porcine) (Heparin Central Flush) 0 unit IV.FLUSH PRN PRN PRN Reason: Flush PICC Line Last Admin: 10/11/17 23:31 Dose: 200 unit Heparin Sodium (Porcine) (Heparin Central Flush) 0 unit IV.FLUSH DAILY [facility] Last Admin: 10/30/17 09:32 Dose: Not Given Sodium Chloride (Ns Inj) 1,000 mls @ 70 mls/hr IV.CONT .[id number] [facility] Last Admin: 10/30/17 13:15 Dose: 50 mls/hr Lactulose (Lactulose Liq) 30 ml PO DAILY PRN PRN Reason: SEVERE CONSITIPATION Levothyroxine Sodium (Synthroid) 125 mcg PO DAILY@0600 [facility] Last Admin: 10/30/17 06:16 Dose: 125 mcg Morphine Sulfate (Morphine Inj) 1 mg IV.PUSH Q4H PRN PRN Reason: PAIN SCALE 6 TO 10 Ondansetron HCl (Zofran Inj) 4 mg IV.PUSH Q6H PRN PRN Reason: NAUSEA OR VOMITING Last Admin: 10/30/17 09:55 Dose: 4 mg Oxycodone/Acetaminophen (Percocet 5/325 Mg) 1 tab PO Q4H PRN PRN Reason: PAIN SCALE 1 TO 5 Last Admin: 10/28/17 11:58 Dose: 1 tab Oxycodone/Acetaminophen (Percocet 5/325 Mg) 2 tab PO Q4H PRN PRN Reason: PAIN SCALE 6 TO 10 Last Admin: 10/30/17 09:33 Dose: 2 tab Patch Removal (Remove Old Patch) 1 each T-DERMAL Q3D [facility] Last Admin: 10/29/17 16:13 Dose: 1 each Prednisone (Deltasone Liq) 5 mg PO DAILY [facility] Last Admin: 10/30/17 09:31 Dose: 5 mg Prochlorperazine (Compazine Supp) 25 mg RECTAL Q12HR PRN PRN Reason: NAUSEA OR VOMITING Senna/Docusate Sodium (Natalie-Colace) 1 tab PO BID [facility] Last Admin: 10/30/17 09:30 Dose: Not Given Sennosides (Senokot) 17.2 mg PO Q12H PRN PRN Reason: Moderate Constipation Sodium Chloride (Ns Flush) 2 ml IV.FLUSH BID [facility] Last Admin: 10/30/17 09:32 Dose: Not Given Sodium Chloride (Ns Flush) 2 ml IV.FLUSH PRN PRN PRN Reason: FLUSH AFTER USING IV ACCESS Last Admin: 10/11/17 08:33 Dose: 2 ml Sodium Chloride (Ns Flush) 0 ml IV.FLUSH DAILY [facility] Last Admin: 10/30/17 09:32 Dose: Not Given Sodium Chloride (Ns Flush) 0 ml IV.FLUSH PRN PRN PRN Reason: FLUSH AFTER USING IV ACCESS Sodium Chloride (Ns Flush) 0 ml IV.FLUSH PRN PRN PRN Reason: Flush After Blood Draws Vancomycin HCl (Vancomycin Po) 125 mg PO QID [facility] Last Admin: 10/30/17 13:13 Dose: 125 mg Zinc Sulfate (Zinc-220) 220 mg PO DAILY [facility] Last Admin: 10/30/17 09:31 Dose: 220 mg <Sheree Traore - Last Filed: 10/30/17 17:35> Allergies Allergy/AdvReac Type Severity Reaction Status Date / Time No Known Allergies Allergy Unknown Uncoded 07/22/17 19:30 Home Medications Medication Instructions Recorded Confirmed Type Calcium 500 With D 10/11/17 10/11/17 History Cardizem See Label Instructions .ROUTE 10/11/17 10/11/17 History .COMPLEX MDD 60mg ascorbic acid (vitamin C) 10/11/17 History fentanyl 10/11/17 History furosemide [Lasix] 20 mg PO DAILY 10/11/17 10/11/17 History guaifenesin 10/11/17 History levothyroxine [Synthroid] 125 mcg PO DAILY 10/11/17 10/11/17 History pantoprazole [Protonix] 40 mg PO DAILY 10/11/17 10/11/17 History sodium chloride 10/11/17 History zinc sulfate 220 mg PO DAILY 10/11/17 10/11/17 History Exam Vital signs: Vital Signs 10/29/17 16:00 10/29/17 20:00 10/29/17 23:29 Temperature 97.9 F 98 F Pulse Rate 79 75 Respiratory Rate 18 17 Blood Pressure 143/69 H 133/80 Pulse Oximetry 96 97 98 10/29/17 23:30 10/30/17 03:29 10/30/17 04:00 Temperature 97.6 F 98.4 F Pulse Rate 76 79 Respiratory Rate 15 16 19 Blood Pressure 144/59 H 162/81 H Pulse Oximetry 95 95 10/30/17 08:00 10/30/17 10:23 10/30/17 12:00 Temperature 98.0 F 98.6 F Pulse Rate 79 81 Respiratory Rate 18 18 Blood Pressure 141/71 H 148/77 H Pulse Oximetry 94 L 95 94 L Intake & Output 10/29/17 10/30/17 10/30/17 18:59 06:59 18:59 Intake Total 1480 / 1480 Output Total 1600 / 1600 1050 / 1050 Balance -120 / -120 -1050 / -1050 Weight 57.9 kg Intake: IV 1000 / 1000 NS Inj 1,000 ML @ 125 mls/hr IV 1000 / 1000 .CONT .Q8H [facility] Rx#:[id number] Oral 480 / 480 Output: Urine Amount (Catheter) 1600 / 1600 1050 / 1050 Indwelling Urethral Catheter 1600 / 1600 1050 / 1050 Other: Date of Last Bowel Movement 10/25/17 10/29/17 10/25/17 # Bowel Movements 2 # Incontinent Bowel Movements 2 - Constitutional no acute distress - Routine HEENT Exam Head: Present: normocephalic, atraumatic - Routine Respiratory Exam Absent: accessory muscle use - Routine Abdominal Exam Present: soft, normoactive bowel sounds, tenderness Comments: PEG site with active purulent appearing drainage <Tara Villatoro - Last Filed: 10/30/17 15:25> Vital signs: Vital Signs 10/29/17 20:00 10/29/17 23:29 10/29/17 23:30 Temperature 98 F 97.6 F Pulse Rate 75 76 Respiratory Rate 17 15 Blood Pressure 133/80 144/59 H Pulse Oximetry 97 98 95 10/30/17 03:29 10/30/17 04:00 10/30/17 08:00 Temperature 98.4 F 98.0 F Pulse Rate 79 79 Respiratory Rate 16 19 18 Blood Pressure 162/81 H 141/71 H Pulse Oximetry 95 94 L 10/30/17 10:23 10/30/17 12:00 Temperature 98.6 F Pulse Rate 81 Respiratory Rate 18 Blood Pressure 148/77 H Pulse Oximetry 95 94 L Intake & Output 10/29/17 10/30/17 10/30/17 18:59 06:59 18:59 Intake Total 1480 / 1480 Output Total 1600 / 1600 1050 / 1050 Balance -120 / -120 -1050 / -1050 Weight 57.9 kg Intake: IV 1000 / 1000 NS Inj 1,000 ML @ 125 mls/hr IV 1000 / 1000 .CONT .Q8H [facility] Rx#:[id number] Oral 480 / 480 Output: Urine Amount (Catheter) 1600 / 1600 1050 / 1050 Indwelling Urethral Catheter 1600 / 1600 1050 / 1050 Other: Date of Last Bowel Movement 10/25/17 10/29/17 10/25/17 # Bowel Movements 2 # Incontinent Bowel Movements 2 <Sheree Traore - Last Filed: 10/30/17 17:35> Results - Labs CBC & Chem 7: 10/30/17 14:00 10/30/17 05:49 Labs: Laboratory Results - last 24 hr 10/30/17 10/30/17 05:49 14:00 WBC 11.8 H RBC 4.05 Hgb 11.0 L Hct 33.2 L MCV 82.0 MCH 27.2 MCHC 33.1 RDW 15.5 Plt Count 332 MPV 5.3 L Neut % (Auto) 86.1 H Lymph % (Auto) 7.2 L [place] % (Auto) 5.4 Eos % (Auto) 0.8 Baso % (Auto) 0.5 Neut # (Auto) 10.1 H Lymph # (Auto) 0.8 L [place] # (Auto) 0.6 Eos # (Auto) 0.1 Baso # (Auto) 0.1 WBC Differential . Differential Comment Auto diff final Sodium 125 L Potassium 3.7 Chloride 90 L Carbon Dioxide 26.4 Anion Gap 9 BUN 7 Creatinine 0.45 L Estimated GFR Greater than 89 Random Glucose 86 Calcium 9.5 - Imaging Impressions Abdomen X-Ray 10/28/17 10:48 CONCLUSION: No evidence of bowel obstruction. No abnormalities identified within the lung bases. No visible free air. <Tara Villatoro - Last Filed: 10/30/17 15:25> - Labs CBC & Chem 7: 10/30/17 14:00 10/30/17 05:49 Labs: Laboratory Results - last 24 hr 10/30/17 10/30/17 05:49 14:00 WBC 11.8 H RBC 4.05 Hgb 11.0 L Hct 33.2 L MCV 82.0 MCH 27.2 MCHC 33.1 RDW 15.5 Plt Count 332 MPV 5.3 L Neut % (Auto) 86.1 H Lymph % (Auto) 7.2 L [place] % (Auto) 5.4 Eos % (Auto) 0.8 Baso % (Auto) 0.5 Neut # (Auto) 10.1 H Lymph # (Auto) 0.8 L [place] # (Auto) 0.6 Eos # (Auto) 0.1 Baso # (Auto) 0.1 WBC Differential . Differential Comment Auto diff final Sodium 125 L Potassium 3.7 Chloride 90 L Carbon Dioxide 26.4 Anion Gap 9 BUN 7 Creatinine 0.45 L Estimated GFR Greater than 89 Random Glucose 86 Calcium 9.5 - Imaging Impressions Abdomen X-Ray 10/28/17 10:48 CONCLUSION: No evidence of bowel obstruction. No abnormalities identified within the lung bases. No visible free air. Abdomen X-Ray 10/30/17 00:00 CONCLUSION: Contrast filling the gastrostomy tube and stomach. <Sheree Traore - Last Filed: 10/30/17 17:35> Assessment and Plan - Plan Assessment: - Dysphagia with risk for aspiration noted by speech therapy and inadequate PO intake. Pt with recent hospitalization for necrotizing fasciitis, DCd to [facility] , transferred back to [place] for skin grafting. PEG placed via EGD by Dr. Arrieta on October 04 --> Mild antral gastritis, successful PEG placement, skin level 2.5 cm 20- Bol[place]ian PEG. Nutrition has recommended Vital 1.5 at a rate of 75 mL/hr x 12 hours with Mighty Shakes TID. Plan: KUB with Gastrografin Probable EGD with PEG tomorrow Obtain consent NPO after MN in case need for procedure Appreciated dietary recommendations Further recommendations to follow Pt has been seen and examined by myself and Dr. Traore and this note is written on her behalf <Tara Villatoro - Last Filed: 10/30/17 15:25> - Attending Attestation seen, examined agree with above peg bumper seems to be embedded in abdominal wall do not use peg for now egd/peg removal, replacement in am does not meet nutritional requirement yet, needs peg for supplemental feeding <Sheree Traore - Last Filed: 10/30/17 17:35>
[2017-10-30] MEDS ORDERED: Diatrizoate Meglum/Diatrizoate Sod Liq 120 ML Bottle (for RAD diag) G-TUBE ONE (15:52)
--- NOTE | 2017-10-30 15:53 | XR ---
EXAM DATE: 10/30/2017 3:50 PM EDT AGE/SEX: 62 years / Female INDICATIONS: PEG tube placement CLINICAL DATA: This is the patient's subsequent encounter. Patient reports that signs and symptoms h ave been present for 4 - 6 days and indicates a pain score of 0/10. MEDICAL/SURGICAL HISTORY: . Hypothyroidism. Sepsis with necrotizing fasciitis right hip/leg wit h wound vac . . Tracheostomy placed. PEG tube September 2017 [place] [facility] [place]. . FINDINGS: A single supine view of the abdomen shows contrast filling the stomach and gastric tube. Gas-filled l oops of nondilated large and small bowel. Surgical clips overlie the right abdomen. Bony structures a re unremarkable. CONCLUSION: Contrast filling the gastrostomy tube and stomach. Electronically signed by: Luis Martinez MD 10/30/2017 3:52 PM EDT
[2017-10-30] MEDS: Calcium/Vitamin D 250/125 MG Tablet PO SCH (17:48)
[2017-10-30] MEDS: Ascorbic Acid 500 MG Tablet NG/OG SCH (21:22)
[2017-10-31] MEDS: Sod Chloride 0.9% Inj 1,000 ML IV.CONT SCH ×3 (01:16→21:16)
[2017-10-31] MEDS: Levothyroxine 125 MCG Tablet PO SCH (06:15)
[2017-10-31 07:38] LABS: Albumin 2.3 g/dL (3.4-5.0); Anion Gap 6 meq/L (5-15); Aspartate Aminotransferase 10 U/L (15-37); Blood Urea Nitrogen 6 mg/dL (7-18); Calcium 9.6 mg/dL (8.5-10.1); Chloride 93 meq/L (98-107); Glomerular Filtration Rate Greater Than 89 mL/min (>89); Glucose,Random 74 mg/dL (74-106); Potassium 3.9 meq/L (3.5-5.1); Sodium 128 meq/L (136-145)
[2017-10-31 07:42] LABS: Alanine Aminotransferase 15 U/L (10-53); Alkaline Phosphatase 54 U/L (45-117); Total Protein 5.3 g/dL (6.4-8.2)
--- NOTE | 2017-10-31 08:30 | P.PN ---
Subjective Interval history: awake and alert, no nausea or vomiting tolerating po well TF DC - PEG - displaced NPO for PEG replacement today looking forward to PEG placement today Physical Exam Vital signs: Vital Signs 10/30/17 10:23 10/30/17 12:00 10/30/17 16:00 Temperature 98.6 F 98.1 F Pulse Rate 81 79 Respiratory Rate 18 18 Blood Pressure 148/77 H 150/77 H Pulse Oximetry 95 94 L 95 10/30/17 19:54 10/30/17 20:00 10/31/17 00:00 Temperature 97.9 F 97.8 F Pulse Rate 79 77 Respiratory Rate 16 16 Blood Pressure 140/71 149/72 H Pulse Oximetry 96 95 97 10/31/17 06:00 Temperature 97.8 F Pulse Rate 75 Respiratory Rate 16 Blood Pressure 136/73 Pulse Oximetry 97 Intake & Output 10/30/17 10/31/17 10/31/17 18:59 06:59 18:59 Intake Total 1120 / 1120 Output Total 1450 / 1450 950 / 950 Balance -1450 / -1450 170 / 170 Weight 58 kg Intake: IV 1000 / 1000 NS Inj 1,000 ML @ 70 mls/hr IV. 1000 / 1000 CONT .[id number] JONAS Rx#:[id number] Oral 120 / 120 Output: Urine 1450 / 1450 950 / 950 Other: Date of Last Bowel Movement 10/25/17 # Bowel Movements 1 0 Narrative: awake and alert, no acute distress anicteric neck- trachestomy tube in place- capped- good sats at room air Large dressing throughout torso and right lateral thigh, right groin area-dry Regular rate and rhythm. No murmur appreciated. no rales, no wheezes, Abdomen soft, non tender hyperactive bowel sounds, PEG site-midl induration around area felt underneath MUSCULOSKELETAL: No obvious deformities. Extremities without clubbing, cyanosis , or edema. right foot elastic dressing in place NEUROLOGICAL: Awake and alert. No obvious cranial nerve deficits. Motor grossly within normal limits. Moving all extremities spontaneously. - Urinary Catheter Management Indwelling Urethral Catheter Cath placed during this visit: yes Reason for continuing: Acute urinary retention Insertion date: 10/11/17 Results - Labs CBC & Chem 7: 10/30/17 14:00 10/31/17 06:10 Laboratory Results - last 24 hr 10/30/17 10/31/17 14:00 06:10 WBC 11.8 H RBC 4.05 Hgb 11.0 L Hct 33.2 L MCV 82.0 MCH 27.2 MCHC 33.1 RDW 15.5 Plt Count 332 MPV 5.3 L Neut % (Auto) 86.1 H Lymph % (Auto) 7.2 L [place] % (Auto) 5.4 Eos % (Auto) 0.8 Baso % (Auto) 0.5 Neut # (Auto) 10.1 H Lymph # (Auto) 0.8 L [place] # (Auto) 0.6 Eos # (Auto) 0.1 Baso # (Auto) 0.1 WBC Differential . Differential Comment Auto diff final Sodium 128 L Potassium 3.9 Chloride 93 L Carbon Dioxide 29.0 Anion Gap 6 BUN 6 L Creatinine 0.43 L Estimated GFR Greater than 89 Random Glucose 74 Calcium 9.6 Total Bilirubin 0.2 AST 10 L ALT 15 Alkaline Phosphatase 54 Total Protein 5.3 L Albumin 2.3 L - Imaging Impressions Abdomen X-Ray 10/30/17 00:00 CONCLUSION: Contrast filling the gastrostomy tube and stomach. - Procedures s/p debridement; s/p split thickness skin grafting 10/12 per plastic surgery. right foot digital amputation // and fifth. Assessment and Plan - Assessment (1) Gangrene of toe of right foot Code(s): I96 - Gangrene, not elsewhere classified Status: Acute (2) Open wound of trunk Status: Acute - Plan 62 years old Necrotizing fasciitis -s/p debridement; s/p split thickness skin grafting 10/12 per plastic surgery , wound VAC removed. Finish course of antibiotics per infectious disease. - curretnly on meropenem Continue wound dressings. Keep Terrazas catheter in to prevent soiling of wound with urine. Anemia -s/p PRBC transfusion; now with improved H/H. On PO iron supplementation H and H good - stable 10/31 Gangrene of the right foot- podiatry consult appreciated - s/p right foot digital amputation 04/29//. -continue with pain control -podiatry follow-up appreciated; f/u as outpatient. C-diff colitis: diagnosed 10/20 - stool frequency less- less since yesterday per patient -started on oral vanco 125mg po qid [id number]- started 7/28 PEG displacement TF particles coming out of PEG wound - HOld TF. - GI consulted- for PEG replacement today hYponatremia- Na improved- patient awake and alert from diarrhea and vomiting- no further epidoses -Na stabilizing gradually trending up. FF BMP Lasix was DC continue IVF with TF on hold for PEG displacement Respiratory -Tracheostomy- capped in place for prior jail ventilation. breathing well -Continue O2 supplementation as needed, tracheostomy management -Continue PRN nebulizers -taper down prednisone, on 5mg daily- taper down to 2.5 mg daily starting 11/01 Hypothyroidism -Continue home Levothyroxine moderate malnutrition -PEG in place. had modified barium swallow- ST following and recommended puree diet. -Will hold tube feeds with suspicious leakage - - on TF to meet nutrtional requirement - pureed diet during the day GI PPX -Will continue with pepcid. PT consulted DVT PPX-SCD's. Will defer chemical prophylaxis due to downtrending Hgb and recent need for transfusion Discharge Planning: [facility]- Dr. Marshall for rehab management. to [facility] when PEG placemnt done today or tomorrow ADD: PEG placed successfully okay to use peg for meds start TF in am
[2017-10-31] MEDS: Heparin Central Flush 100 UNIT/ML 5 ML Vial IV.FLUSH SCH (08:46)
[2017-10-31] MEDS: Senna/Docusate Sodium 8.6/50 MG Tablet PO SCH ×2 (08:47→21:16)
[2017-10-31] MEDS: Famotidine PF Inj 20 MG/2 ML Vial IV.PUSH SCH ×2 (09:33→21:16)
[2017-10-31] MEDS: predniSONE Liq 5 MG/5 ML UDC PO SCH (09:33)
[2017-10-31] MEDS ORDERED: Lidocaine PF 1% Inj 5 ML Syringe INFILTRATN ONE (12:00)
[2017-10-31] MEDS ORDERED: Gelatin Size 100 Topical Foam ONE (13:52)
--- NOTE | 2017-10-31 14:16 | GIPROC ---
[facility] [address] [facility]. [facility], [address] EGD WITH PEG PROCEDURE REPORT EXAM DATE: 10/31/2017 PATIENT NAME: Nina Eldridge MR#: [id number] BIRTHDATE: 1955 ATTENDING: Sheree Traore MD ORDER #: [id number] SAS PROGRAMMER REMOTE: Ariel Silva Powell, Bianca, Farzaneh Garrido, and Sofie Lara STATUS: inpatient INDICATIONS: The patient is a 62 yr old female here for an EGD with PEG due to dysphagia and feeding difficulties, displaced old peg PROCEDURE PERFORMED: EGD with biopsy EGD with PEG placement MEDICATIONS: None and Per Anesthesia. TOPICAL ANESTHETIC: CONSENT: The patient understands the risks and benefits of the procedure and understands that these risks include, but are not limited to: sedation, allergic reaction, infection, perforation and/or bleeding. Alternative means of evaluation and treatment include, among others: physical exam, x-rays, and/or surgical intervention. The patient elects to proceed with this endoscopic procedure. medical equipment was checked for proper function. Hand hygiene and appropriate measures for infection prevention was taken. After the risks, benefits and alternatives of the procedure were thoroughly explained, Informed consent was verified, confirmed and timeout was successfully executed by the treatment team. The patient was anesthetized with topical anesthesia and the 0123 endoscope was introduced through the mouth and advanced to the second portion of the duodenum. The instrument was slowly withdrawn as the mucosa was fully examined. Esophagitis was found in the distal esophagus. -white deposits consistent with nicolasa -biopsy gastritis antrum-biopsy internla bumper of old peg not seen-old PEG pulled out, new peg inserted The stomach was then inflated with air, and by a combination of transillumination and manual palpation, the site for the gastrostomy tube placement was selected and marked on the anterior abdominal wall. The skin of the anterior abdomen was surgically prepped and draped with sterile towels. Utilizing strict sterile technique, the selected site was then anesthetized with 1% xylocaine by injection into the skin and subcutaneous tissue. A 1 cm incision was made through the skin and subcutaneous tissue, and the needle/cannula assembly was then passed through the abdominal wall and through the anterior wall of the stomach, maintaining visualization with the endoscope. A snare device previously placed through the instrument channel was then opened and placed around the cannula, the needle was removed, and the insertion wire was passed through the cannula and into the stomach lumen. The snare was then loosened from the cannula, and repositioned to snare the insertion wire. The snare was then pulled up to the endoscope distal tip, and the scope was then withdrawn bringing with it the snare and insertion wire. The insertion wire was then released from the snare, and then loop-attached to the gastrostomy tube. Using the "pull technique", the G-tube was then pulled into place by traction on the insertion wire at the abdominal wall end. The G-tube insertion site was then cleansed once again, and the external bolster was placed over the tube to secure it to the abdominal wall. A sterile dressing was then applied, and the procedure terminated. a hiatal hernia The gastroscope was then slowly withdrawn and removed. ADVERSE EVENT: There were no complications. IMPRESSIONS: 1. Esophagitis was found in the distal esophagus 2. A hiatal hernia 3. 3. gastritis antrum 4.displaced old peg bumper in abdominal wall RECOMMENDATIONS: 1. Anti-reflux regimen 2. Await biopsy results. Biopsy results will not be ready for 7-10 days. If you don't hear from us in two weeks, call our office for biopsy results. 3. ok to use PEG for medications only today start tf in am Nystatin abdominal binder REPEAT EXAM: Return 3 month(s) EGD Sheree Traore MD eSigned: Sheree Traore MD 10/31/2017 2:15 PM cc: PATIENT NAME: Nina Eldridge MR#: [id number]
--- NOTE | 2017-10-31 15:45 | P.DS ---
Date of admission: 10/11/17 03:43 Primary care physician: No Primary Care Physician Anticipated date of discharge: 10/24/17 Brief History from admission: 62-year-old female with a medical history signet for developmental delay who presented to [facility] few months ago with necrotizing fasciitis for which she underwent multiple trips to the OR for debridement and subsequently wound VAC placement. She was discharged to [facility] after recovering from septic shock at the time. Patient has been weaned off mechanical ventilation and has a tracheostomy in place. She was transferred back from [facility] to [facility] as she is being scheduled for skin grafting. When I evaluated patient he is awake and alert talking with the speaking valve on trach. PEG tube was in place. She was not in any acute distress. History was obtained by reviewing records and discussion with nursing staff. Off note patient is still on IV vancomycin and meropenem at [facility] which will be continued. DS: Diagnosis - Discharge Diagnosis (1) Gangrene of toe of right foot Status: Acute (2) Open wound of trunk Status: Acute DS: Summary Hospital Course: 62 years old Necrotizing fasciitis -s/p debridement; s/p split thickness skin grafting 10/12 per plastic surgery , wound VAC removed. Finish course of antibiotics per infectious disease. - curretnly on meropenem Continue wound dressings. Keep Terrazas catheter in to prevent soiling of wound with urine. Anemia -s/p PRBC transfusion; now with improved H/H. On PO iron supplementation H and H good - stable 10/31 Gangrene of the right foot- podiatry consult appreciated - s/p right foot digital amputation ///. -continue with pain control -podiatry follow-up appreciated; f/u as outpatient. C-diff colitis: diagnosed 10/20 - stool frequency less- less since yesterday per patient -started on oral vanco 125mg po qid [id number]- started 10/21 PEG displacement TF particles coming out of PEG wound - HOld TF. - GI consulted- for PEG replacement today hYponatremia- Na improved- patient awake and alert from diarrhea and vomiting- no further epidoses -Na stabilizing gradually trending up. 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 breathing well -Continue O2 supplementation as needed, tracheostomy management -Continue PRN nebulizers -taper down prednisone, on 5mg daily- taper down to 2.5 mg daily starting 11/01 Hypothyroidism -Continue home Levothyroxine moderate malnutrition -PEG in place. had modified barium swallow- ST following and recommended puree diet. -Will hold tube feeds with suspicious leakage - - on TF to meet nutrtional requirement - pureed diet during the day GI PPX -Will continue with pepcid. PT consulted DVT PPX-SCD's. Will defer chemical prophylaxis due to downtrending Hgb and recent need for transfusion Discharge Planning: [facility]- Dr. Marshall for rehab management. to [facility] when PEG placemnt done today or tomorrow ADD: PEG replaced successfully today 10/31 okay to use peg for meds start TF in am per Dr. Traore's instructions transfer to [facility] today - Time Spent with Patient Total time spent providing and/or coordinating discharge services: Greater than 30 minutes - Quality: VTE Deep Vein Thrombosis/Pulmonary Embolism Present on Admission: No Exam Vital signs: Vital Signs 10/30/17 16:00 10/30/17 19:54 10/30/17 20:00 Temperature 98.1 F 97.9 F Pulse Rate 79 79 Respiratory Rate 18 16 Blood Pressure 150/77 H 140/71 Pulse Oximetry 95 96 95 10/31/17 00:00 10/31/17 06:00 10/31/17 08:00 Temperature 97.8 F 97.8 F 98.0 F Pulse Rate 77 75 73 Respiratory Rate 16 16 18 Blood Pressure 149/72 H 136/73 140/79 Pulse Oximetry 97 97 96 10/31/17 10:10 Temperature Pulse Rate Respiratory Rate Blood Pressure Pulse Oximetry 96 Intake & Output 10/30/17 10/31/17 10/31/17 18:59 06:59 18:59 Intake Total 1120 / 1120 100 / 100 Output Total 1450 / 1450 950 / 950 Balance -1450 / -1450 170 / 170 100 / 100 Weight 58 kg Intake: IV 1000 / 1000 NS Inj 1,000 ML @ 70 mls/hr IV. 1000 / 1000 CONT .[id number] JONAS Rx#:[id number] Oral 120 / 120 Anesthesia Amount 100 / 100 Output: Urine 1450 / 1450 950 / 950 Other: Date of Last Bowel Movement 10/25/17 # Bowel Movements 1 0 Narrative: awake and alert, no acute distress anicteric neck- trachestomy tube in place- capped- good sats at room air Large dressing throughout torso and right lateral thigh, right groin area-dry Regular rate and rhythm. No murmur appreciated. no rales, no wheezes, Abdomen soft, non tender hyperactive bowel sounds, PEG site-- no erythema MUSCULOSKELETAL: No obvious deformities. Extremities without clubbing, cyanosis , or edema. right foot elastic dressing in place NEUROLOGICAL: Awake and alert. No obvious cranial nerve deficits. Motor grossly within normal limits. Moving all extremities spontaneously. Results Procedures completed during hospitalization: s/p debridement; s/p split thickness skin grafting 10/12 per plastic surgery. right foot digital amputation // and fifth.- 10/18 PEG replacement 10/31 Completed studies during hospitalization: Pending at discharge 10/18/17 08:09 Surgical [PTH] Routine Pending studies at discharge: Pending at discharge 10/31/17 Surgical [PTH] Routine Labs on day of discharge: Labs from last 24 hours 10/31/17 06:10 Sodium 128 L Potassium 3.9 Chloride 93 L Carbon Dioxide 29.0 Anion Gap 6 BUN 6 L Creatinine 0.43 L Estimated GFR Greater than 89 Random Glucose 74 Calcium 9.6 Total Bilirubin 0.2 AST 10 L ALT 15 Alkaline Phosphatase 54 Total Protein 5.3 L Albumin 2.3 L - Impressions ITS Impressions Chest X-Ray 10/11/17 07:10 CONCLUSION: 1. Mild increasing infiltrate in the right lung base. 2. Stable atelectasis in the left lung base. Videofluoroscopic Swallow 10/17/17 00:00 CONCLUSION: Modified barium swallow. Foot X-Ray 10/18/17 00:00 CONCLUSION: Postsurgical changes as above. Abdomen X-Ray 10/30/17 00:00 CONCLUSION: Contrast filling the gastrostomy tube and stomach. Discharge Plan - Discharge Disposition Patient Disposition: 62 Rehab Inpatient - Discharge Condition Condition: Stable - Discharge Order Discharge Orders: Discharge Order (Routine); Ordered 10/24/17 Ordered By: Jazmyne Norman PCP Clear for Discharge (Routine); Ordered 11/01/17 Ordered By: Edis Gaston - Discharge Details Anticipated Discharge Date: 10/31/17 - Physicians Team Primary Care Provider: Primary Care Physici,No Attending Provider: Edis Gaston Other Providers: Yogi Ricardo MD ; [facility] ; Jaylan Burt MD ; Lili Shafer DPM ; [facility] ; [facility] ; Do Espinoza MD ; [facility] ; [facility] ; Sheree Traore MD - Rxs /Orders / Referrals /Forms Prescriptions: New ascorbic acid (vitamin C) [Vitamin C] 500 mg Tablet 500 mg NG/OG HS RF: 0 calcium carbonate-vitamin D3 [Oyster Shell Calcium-Vit D3] 250-125 mg-unit Tablet 2 tab PO QPM RF: 0 fentanyl [Duragesic] 25 mcg/hr Patch 72 Hour 1 patch Transdermal Q3D Qty: 1 RF: 0 nystatin 100,000 unit/mL Suspension 5 ml SWISH-SWAL QID RF: 0 oxycodone-acetaminophen 5-325 mg Tablet 1 tab PO Q4H PRN (Reason: acute pain) Qty: 10 RF: 0 prednisone 5 mg/5 mL Solution 2.5 mg PO DAILY Qty: 0 RF: 0 Continue levothyroxine [Synthroid] 125 mcg Tablet 125 mcg PO DAILY pantoprazole [Protonix] 40 mg Tablet,Delayed Release (Dr/Ec) 40 mg PO DAILY zinc sulfate 220 mg Tablet 220 mg PO DAILY Discontinued ascorbic acid (vitamin C) Calcium 500 With D Cardizem See Label Instructions .ROUTE .COMPLEX MDD 60mg fentanyl furosemide [Lasix] 20 mg Tablet 20 mg PO DAILY guaifenesin sodium chloride 1 gram Tablet Referrals: Yogi Ricardo MD [PLASTIC & RECONSTRUCTIVE SURGE] - See Instructions (follow up in two weeks) Lili Shafer DPM [Physician] - See Instructions (follow up in 1 week) Primary Care Emely Garcia [Primary Care Provider] - See Instructions (follow up in 1 week) Lamar Ortiz MD [FAMILY MEDICINE] - See Instructions - Discharge Instructions Patient Printed Instructions: Oxycodone/Acetaminophen (By mouth), Albuterol ( By breathing), Fentanyl (Absorbed through the skin), Vancomycin (By mouth), Skin Grafting (DC), Necrotizing Fasciitis (DC), Necrotizing Fasciitis (GEN) Additional Instructions: wound care per plastic surgery: Continue daily mupirocin ointment Xeroform dressing changes - Post Discharge Care Plan Care Plan Goals: Your Health Problems: Goals to Promote Your Health: * To prevent worsening of your condition * To maintain your health at the optimal level Directions to Meet Your Goals: * Take your medications as prescribed * Follow your dietary instruction * Follow activity as directed * Keep your appointments as scheduled * Take your immunizations and boosters as scheduled * If your symptoms worsen call your PCP * If no PCP go to Urgent Care or Emergency Room Smoking is dangerous to your health. Avoid second hand smoke. You may reach the 24-hour crisis hotline for domestic abuse at .
[2017-10-31] MEDS ORDERED: Gelatin 12 MM/7 MM Topical Foam ONE (16:26)
[2017-10-31] MEDS ORDERED: Gelatin Size 100 Topical Foam TOPICAL STA (16:40)
[2017-10-31] MEDS ORDERED: Phytonadione Inj 10 MG/ML Vial SQ ONE (17:11)
[2017-10-31 18:17] LABS: Baso # (Auto) 0.1 th/mm3 (0.0-0.2); Baso % (Auto) 0.7 % (0.0-2.0); Eos # (Auto) 0.1 th/mm3 (0.0-0.4); Hematocrit 37.3 % (35.0-46.0); Hemoglobin 12.3 gm/dL (11.6-15.3); Lymph # (Auto) 1.3 th/mm3 (1.0-4.8); Lymph % (Auto) 10.1 % (9.0-44.0); Mean Corpuscular HGB Conc 32.9 % (32.0-36.0); Mean Corpuscular Hemoglobin 27.6 pg (27.0-34.0); Mean Platelet Volume 5.5 fL (7.0-11.0); Mono # (Auto) 0.8 th/mm3 (0.0-0.9); Mono % (Auto) 6.6 % (0.0-8.0); Neut # (Auto) 10.2 th/mm3 (1.8-7.7); Neut % (Auto) 81.6 % (16.0-70.0); Platelet Count 315 th/mm3 (150-450); Red Blood Count 4.44 mil/mm3 (4.00-5.30); Red Cell Distribution Width 15.8 % (11.6-17.2); White Blood Count 12.5 th/mm3 (4.0-11.0)
[2017-10-31 18:31] LABS: INR 1.1 Ratio; Prothrombin Time 11.4 sec (9.8-11.6)
[2017-10-31] MEDS: Calcium/Vitamin D 250/125 MG Tablet PO SCH (18:39)
[2017-10-31] MEDS: Nystatin Liq 500,000 UNIT/5 ML UDC SWISH-SWAL SCH ×2 (18:39→21:17)
[2017-10-31] MEDS ORDERED: Lidocaine 1%/Epinephrine 1:100,000 Inj 30 ML Vial ONE (20:27)
--- NOTE | 2017-10-31 20:51 | GIPROC ---
[facility] [address] [facility]. [facility], [address] EGD PROCEDURE REPORT EXAM DATE: 10/31/2017 PATIENT NAME: Nina Eldridge MR #: [id number] BIRTHDATE: 1955 ATTENDING: Sheree Traore MD ORDER #: [id number] LOG POND WORKER: Sofie Lara STATUS: inpatient INDICATIONS: The patient is a 62 yr old female here for an EGD due to bleeding from peg site PROCEDURE PERFORMED: EGD w/ control of bleeding MEDICATIONS: None and Per Anesthesia. TOPICAL ANESTHETIC: none CONSENT: The patient understands the risks and benefits of the procedure and understands that these risks include, but are not limited to: sedation, allergic reaction, infection, perforation and/or bleeding. Alternative means of evaluation and treatment include, among others: physical exam, x-rays, and/or surgical intervention. The patient elects to proceed with this endoscopic procedure. medical equipment was checked for proper function. Hand hygiene and appropriate measures for infection prevention was taken. After the risks, benefits and alternatives of the procedure were thoroughly explained, Informed consent was verified, confirmed and timeout was successfully executed by the treatment team. The patient was anesthetized with topical anesthesia and the Pentax EG-2990i endoscope was introduced through the mouth and advanced to the second portion of the duodenum. Retroflexed views revealed a hiatal hernia The gastroscope was then slowly withdrawn and removed. S/p peg placement , no active bleeding bleeding from skin -incision site cautery using bovie-no further bleeding, also injection theraphy -epinephrine 1:100,000 with lidocaine 1% - 3 cc injected around peg -no further bleeding. ADVERSE EVENTS: There were no complications. IMPRESSIONS: 1. S/p peg placement , no active bleeding bleeding from skin -incision site cautery using bovie-no further bleeding, also injection theraphy -epinephrine 1:100,000 with lidocaine 1% - 3 cc injected around peg -no further bleeding 2. Retroflexed views revealed a hiatal hernia RECOMMENDATIONS: 1. Anti-reflux regimen 2. Continue PPI 3. Ok to use peg for medications tf in am call gi if further bleeding PATIENT CONDITION: stable DISPOSITION: Inpatient REPEAT EXAM: Return 6 months EGD Sheree Traore MD eSigned: Sheree Traore MD 10/31/2017 8:50 PM cc:
--- NOTE | 2017-10-31 20:54 | P.PNGI ---
Subjective Interval history: called earlier this afternoon by nurse, bleeding from peg tube site.Patietn was examined , gelfoam , pressure dressing was applied.Reevaluated in 1 hour, dressing saturated with blood.Vitals stable CBC, INR normal one dose of vitamin k given Due to continuous bleed from incision site we will take her to enodscopy suite for egd with control of bleeding Physical Exam Vital signs: Vital Signs 10/31/17 00:00 10/31/17 06:00 10/31/17 08:00 Temperature 97.8 F 97.8 F 98.0 F Pulse Rate 77 75 73 Respiratory Rate 16 16 18 Blood Pressure 149/72 H 136/73 140/79 Pulse Oximetry 97 97 96 10/31/17 10:10 10/31/17 12:00 10/31/17 16:00 Temperature 98.0 F 98.0 F Pulse Rate 81 85 Respiratory Rate 18 18 Blood Pressure 153/86 H 156/90 H Pulse Oximetry 96 95 98 Intake & Output 10/31/17 10/31/17 11/01/17 06:59 18:59 06:59 Intake Total 1120 / 1120 100 / 100 100 / 100 Output Total 950 / 950 2150 / 2150 3 / 3 Balance 170 / 170 -2050 / -2050 97 / 97 Weight 58 kg Intake: IV 1000 / 1000 NS Inj 1,000 ML @ 70 mls/hr IV. 1000 / 1000 CONT .[id number] [facility] Rx#:[id number] Oral 120 / 120 0 / 0 Anesthesia Amount 100 / 100 100 / 100 Output: Urine 950 / 950 2150 / 2150 Estimated Blood Loss 3 / 3 Other: # Bowel Movements 0 1 - Urinary Catheter Management Indwelling Urethral Catheter Cath placed during this visit: yes Reason for continuing: Acute urinary retention Insertion date: 10/11/17 Results - Labs CBC & Chem 7: 10/31/17 17:39 10/31/17 06:10 Laboratory Results - last 24 hr 10/31/17 10/31/17 10/31/17 06:10 17:39 17:39 WBC 12.5 H RBC 4.44 Hgb 12.3 Hct 37.3 MCV 84.0 MCH 27.6 MCHC 32.9 RDW 15.8 Plt Count 315 MPV 5.5 L Neut % (Auto) 81.6 H Lymph % (Auto) 10.1 [place] % (Auto) 6.6 Eos % (Auto) 1.0 Baso % (Auto) 0.7 Neut # (Auto) 10.2 H Lymph # (Auto) 1.3 [place] # (Auto) 0.8 Eos # (Auto) 0.1 Baso # (Auto) 0.1 WBC Differential . Differential Comment Auto diff final Hematology Comments PT 11.4 INR 1.1 Sodium 128 L Potassium 3.9 Chloride 93 L Carbon Dioxide 29.0 Anion Gap 6 BUN 6 L Creatinine 0.43 L Estimated GFR Greater than 89 Random Glucose 74 Calcium 9.6 Total Bilirubin 0.2 AST 10 L ALT 15 Alkaline Phosphatase 54 Total Protein 5.3 L Albumin 2.3 L Blood Type Antibody Screen MTS Gel Crossmatch 10/31/17 17:39 WBC RBC Hgb Hct MCV MCH MCHC RDW Plt Count MPV Neut % (Auto) Lymph % (Auto) [place] % (Auto) Eos % (Auto) Baso % (Auto) Neut # (Auto) Lymph # (Auto) [place] # (Auto) Eos # (Auto) Baso # (Auto) WBC Differential Differential Comment Hematology Comments PT INR Sodium Potassium Chloride Carbon Dioxide Anion Gap BUN Creatinine Estimated GFR Random Glucose Calcium Total Bilirubin AST ALT Alkaline Phosphatase Total Protein Albumin Blood Type A Positive Antibody Screen Negative MTS Gel Crossmatch See Detail - Procedures s/p debridement; s/p split thickness skin grafting 10/12 per plastic surgery. right foot digital amputation // and fifth.
[2017-10-31] MEDS: Ascorbic Acid 500 MG Tablet NG/OG SCH (21:17)
[2017-10-31 21:36] VITALS: RESP 16
[2017-11-01 00:35] VITALS: O2SAT 95
[2017-11-01 04:04] VITALS: BP 129/60; PULSE 88; TEMP 99.2
[2017-11-01] MEDS: Levothyroxine 125 MCG Tablet PO SCH (05:03)
[2017-11-01] MEDS: Heparin Central Flush 100 UNIT/ML 5 ML Vial IV.FLUSH SCH (08:46)
[2017-11-01] MEDS: Senna/Docusate Sodium 8.6/50 MG Tablet PO SCH (08:49)
[2017-11-01] MEDS: Nystatin Liq 500,000 UNIT/5 ML UDC SWISH-SWAL SCH (08:51)
[2017-11-01] MEDS: Famotidine PF Inj 20 MG/2 ML Vial IV.PUSH SCH (08:52)
--- NOTE | 2017-11-01 08:53 | P.PNGI ---
Subjective Interval history: Pt resting in bed, no complaints at this time. PEG site covered with clean and dry gauze, gauze removed to inspect area. No active bleeding or drainage from site. Discussed with SHADY Schuler she states no further reports of bleeding from PEG site overnight and none this morning. PEG currently clamped. <Tara Villatoro - Last Filed: 11/01/17 08:44> Physical Exam Vital signs: Vital Signs 10/31/17 10:10 10/31/17 12:00 10/31/17 16:00 Temperature 98.0 F 98.0 F Pulse Rate 81 85 Respiratory Rate 18 18 Blood Pressure 153/86 H 156/90 H Pulse Oximetry 96 95 98 10/31/17 20:00 11/01/17 00:00 11/01/17 04:00 Temperature 98.1 F 99.3 F 99.2 F Pulse Rate 88 94 H 88 Respiratory Rate 16 16 16 Blood Pressure 151/66 H 112/71 129/60 Pulse Oximetry 93 L 95 95 Intake & Output 10/31/17 11/01/17 11/01/17 18:59 06:59 18:59 Intake Total 100 / 100 100 / 100 Output Total 2150 / 2150 503 / 503 Balance -2050 / -2050 -403 / -403 Weight 56.6 kg Intake: IV 0 / 0 NS Inj 1,000 ML @ 70 mls/hr IV. 0 / 0 CONT .[id number] [facility] Rx#:[id number] Oral 0 / 0 0 / 0 Anesthesia Amount 100 / 100 100 / 100 Output: Urine 2150 / 2150 500 / 500 Estimated Blood Loss 3 / 3 Other: # Bowel Movements 1 0 - Constitutional no acute distress - Routine HEENT Exam Head: Present: normocephalic, atraumatic - Routine Respiratory Exam Absent: accessory muscle use - Routine Abdominal Exam Present: soft, normoactive bowel sounds. Absent: tenderness, distended Comments: PEG clamped, site with no active bleeding or drainage - Routine Skin Exam Present: dry, warm - Routine Neurological Exam Present: alert, oriented X3 - Urinary Catheter Management Indwelling Urethral Catheter Cath placed during this visit: yes Reason for continuing: Acute urinary retention Insertion date: 10/11/17 <Tara Villatoro - Last Filed: 11/01/17 08:44> Vital signs: Vital Signs 10/31/17 20:00 11/01/17 00:00 11/01/17 04:00 Temperature 98.1 F 99.3 F 99.2 F Pulse Rate 88 94 H 88 Respiratory Rate 16 16 16 Blood Pressure 151/66 H 112/71 129/60 Pulse Oximetry 93 L 95 95 Intake & Output 10/31/17 11/01/17 11/01/17 18:59 06:59 18:59 Intake Total 100 / 100 100 / 100 Output Total 2150 / 2150 503 / 503 600 / 600 Balance -2050 / -2050 -403 / -403 -600 / -600 Weight 56.6 kg Intake: IV 0 / 0 NS Inj 1,000 ML @ 70 mls/hr IV. 0 / 0 CONT .[id number] [facility] Rx#:[id number] Oral 0 / 0 0 / 0 Anesthesia Amount 100 / 100 100 / 100 Output: Urine 0 / 2150 500 / 500 600 / 600 Estimated Blood Loss 3 / 3 Other: # Bowel Movements 1 0 - Urinary Catheter Management Indwelling Urethral Catheter Cath placed during this visit: no <Sheree Traore - Last Filed: 11/01/17 18:27> Results - Labs CBC & Chem 7: 10/31/17 17:39 10/31/17 06:10 Laboratory Results - last 24 hr 10/31/17 10/31/17 10/31/17 17:39 17:39 17:39 WBC 12.5 H RBC 4.44 Hgb 12.3 Hct 37.3 MCV 84.0 MCH 27.6 MCHC 32.9 RDW 15.8 Plt Count 315 MPV 5.5 L Neut % (Auto) 81.6 H Lymph % (Auto) 10.1 [place] % (Auto) 6.6 Eos % (Auto) 1.0 Baso % (Auto) 0.7 Neut # (Auto) 10.2 H Lymph # (Auto) 1.3 [place] # (Auto) 0.8 Eos # (Auto) 0.1 Baso # (Auto) 0.1 WBC Differential . Differential Comment Auto diff final Hematology Comments PT 11.4 INR 1.1 Blood Type A Positive Antibody Screen Negative MTS Gel Crossmatch See Detail - Procedures s/p debridement; s/p split thickness skin grafting 10/12 per plastic surgery. right foot digital amputation 2nd/3rd/4th and fifth. <Tara Villatoro - Last Filed: 11/01/17 08:44> - Labs CBC & Chem 7: 10/31/17 17:39 10/31/17 06:10 Laboratory Results - last 24 hr 10/31/17 10/31/17 17:39 17:39 PT 11.4 INR 1.1 Blood Type A Positive Antibody Screen Negative MTS Gel Crossmatch See Detail <Sheree Traore - Last Filed: 11/01/17 18:27> Assessment and Plan - Plan Assessment: - Dysphagia with risk for aspiration noted by speech therapy and inadequate PO intake. Pt with recent hospitalization for necrotizing fasciitis, DCd to [facility] , transferred back to [place] for skin grafting. PEG placed via EGD by Dr. Arrieta on October 04 --> Mild antral gastritis, successful PEG placement, skin level 2.5 cm 20- Bulgarian PEG. Nutrition has recommended Vital 1.5 at a rate of 75 mL/hr x 12 hours with Mighty Shakes TID. (10/31) called earlier this afternoon by nurse, bleeding from peg tube site. Patient was examined , gelfoam , pressure dressing was applied.Reevaluated in 1 hour, dressing saturated with blood. Vitals stable. CBC, INR normal. One dose of vitamin k given. Due to continuous bleed from incision site we will take her to endoscopy suite for EGD with control of bleeding Repeat EGD --> S/P PEG placement, no active bleeding. Bleeding from skin- incision site cautery using bovie- no further bleeding, also injection therapy- epi with lidocaine injected around PEG no further bleeding, histal hernia (11/01) Discussed with RNHarini no further bleeding from PEG site overnight or this morning. Site with clean and dry gauze. No active bleeding or discharge. Some mild amount of purulent discharge from previous PEG site noted. c. Diff positive- pt remains on oral Vanco Plan: Start TF per dietary recommendations Vital 1.5 @ 75 mL/hr (5pm-51m) Mighty shakes TID Flush PEG q 6hrs and after every feeding and medication administration Continue Oral vanco for C. Diff treatment Our service will sign off, please reconsult as needed Have pt follow up with GI after DC Pt has been seen and examined by myself and Dr. Traore and this note is written on her behalf <Tara Villatoro - Last Filed: 11/01/17 08:44> - Attending Attestation agree with above <Sheree Traore - Last Filed: 11/01/17 18:27>
[2017-11-01] MEDS ORDERED: predniSONE Liq 5 MG/5 ML UDC PO SCH (09:00)
--- NOTE | 2017-11-01 10:28 | P.PN ---
Subjective Interval history: awake and alert, no complains looking forward to going to [facility] Physical Exam Vital signs: Vital Signs 10/31/17 12:00 10/31/17 16:00 10/31/17 20:00 Temperature 98.0 F 98.0 F 98.1 F Pulse Rate 81 85 88 Respiratory Rate 18 18 16 Blood Pressure 153/86 H 156/90 H 151/66 H Pulse Oximetry 95 98 93 L 11/01/17 00:00 11/01/17 04:00 Temperature 99.3 F 99.2 F Pulse Rate 94 H 88 Respiratory Rate 16 16 Blood Pressure 112/71 129/60 Pulse Oximetry 95 95 Intake & Output 10/31/17 11/01/17 11/01/17 18:59 06:59 18:59 Intake Total 100 / 100 100 / 100 Output Total 2150 / 2150 503 / 503 Balance -2050 / -2050 -403 / -403 Weight 56.6 kg Intake: IV 0 / 0 NS Inj 1,000 ML @ 70 mls/hr IV. 0 / 0 CONT .[id number] [facility] Rx#:[id number] Oral 0 / 0 0 / 0 Anesthesia Amount 100 / 100 100 / 100 Output: Urine 2150 / 2150 500 / 500 Estimated Blood Loss 3 / 3 Other: # Bowel Movements 1 0 Narrative: awake and alert, no acute distress anicteric neck- trachestomy tube in place- capped- good sats at room air Large dressing throughout torso and right lateral thigh, right groin area-dry Regular rate and rhythm. No murmur appreciated. no rales, no wheezes, Abdomen soft, non tender hyperactive bowel sounds, PEG site-- no erythema MUSCULOSKELETAL: No obvious deformities. Extremities without clubbing, cyanosis , or edema. right foot elastic dressing in place NEUROLOGICAL: Awake and alert. No obvious cranial nerve deficits. Motor grossly within normal limits. Moving all extremities spontaneously. - Urinary Catheter Management Indwelling Urethral Catheter Cath placed during this visit: yes Reason for continuing: Acute urinary retention Insertion date: 10/11/17 Results - Labs CBC & Chem 7: 10/31/17 17:39 10/31/17 06:10 Laboratory Results - last 24 hr 10/31/17 10/31/17 10/31/17 17:39 17:39 17:39 WBC 12.5 H RBC 4.44 Hgb 12.3 Hct 37.3 MCV 84.0 MCH 27.6 MCHC 32.9 RDW 15.8 Plt Count 315 MPV 5.5 L Neut % (Auto) 81.6 H Lymph % (Auto) 10.1 [place] % (Auto) 6.6 Eos % (Auto) 1.0 Baso % (Auto) 0.7 Neut # (Auto) 10.2 H Lymph # (Auto) 1.3 [place] # (Auto) 0.8 Eos # (Auto) 0.1 Baso # (Auto) 0.1 WBC Differential . Differential Comment Auto diff final Hematology Comments PT 11.4 INR 1.1 Blood Type A Positive Antibody Screen Negative MTS Gel Crossmatch See Detail - Procedures s/p debridement; s/p split thickness skin grafting 10/12 per plastic surgery. right foot digital amputation // and fifth. Assessment and Plan - Assessment (1) Gangrene of toe of right foot Code(s): I96 - Gangrene, not elsewhere classified Status: Acute (2) Open wound of trunk Status: Acute - Plan 62 years old Necrotizing fasciitis -s/p debridement; s/p split thickness skin grafting 10/12 per plastic surgery , wound VAC removed. Finish course of antibiotics per infectious disease. - curretnly on meropenem Continue wound dressings. Keep Terrazas catheter in to prevent soiling of wound with urine. Anemia -s/p PRBC transfusion; now with improved H/H. On PO iron supplementation H and H good - stable 10/31 Gangrene of the right foot- podiatry consult appreciated - s/p right foot digital amputation 04/29//. -continue with pain control -podiatry follow-up appreciated; f/u as outpatient. C-diff colitis: diagnosed 10/20 - stool frequency less- less since yesterday per patient -started on oral vanco 125mg po qid [id number]- started 10/21 PEG displacement S/P Peg replacement 10/31 restart TF- Vital 1.5 hYponatremia- Na improved- patient awake and alert from diarrhea and vomiting- no further epidoses -Na stabilizing gradually trending up. 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 breathing well -Continue O2 supplementation as needed, tracheostomy management -Continue PRN nebulizers -taper down prednisone, on 5mg daily- taper down to 2.5 mg daily starting 11/01 Hypothyroidism -Continue home Levothyroxine moderate malnutrition -PEG in place. had modified barium swallow- ST following and recommended puree diet. - on TF to meet nutrtional requirement 5 pm - 5 am- Vital 1.5 at 75 cc/hr- goal rate - pureed diet during the day GI PPX -Will continue with pepcid. PT ff DVT PPX-SCD's. Will defer chemical prophylaxis due to downtrending Hgb and recent need for transfusion Discharge Planning: [facility]- Dr. Marshall for rehab management. to [facility] ADD: PEG placed successfully 11/01 okay to use peg for meds start TF in am
== END 2017-11-01 12:06 ==
LOC: HIMC 03:43 → N04 10-14 13:12
PROVIDERS: ADMIT Internal Medicine; ATTEND Internal Medicine
PROC: PANENDO (2017-10-31 13:27)